=== PATIENT | male | born 1960 | race Caucasian/White ===

== ENCOUNTER 2020-08-17 02:30 | Emergency (ER) | payer OTHER, SELFPAY ==
[2020-08-17 02:36] VITALS: BP 117/66; PULSE 82; RESP 18; TEMP 36.7; O2SAT 93; BMI 21.4
--- NOTE | 2020-08-17 03:47 | ED_ITS ---
HPI - Alcohol General Chief Complaint: ETOH/Substance Use Stated Complaint: ETOH Time Seen by Provider: 08/17/20 03:47 Source: patient Mode of arrival: EMS History of Present Illness HPI narrative: 60-year-old male with history of chronic alcohol dependence, he drinks approximately 2 and half pt a day and states that he wishes to undergo d etox. He denies any suicidal ideation or homicidal ideation. Otherwise, he denies any recent fever, chills, shortness of breath, chest pain/palpitations, GI or symptoms. Related Data Home Medications Medication Instructions Recorded Confirmed acamprosate 2 tab PO TID 08/17/20 08/17/20 albuterol sulfate INHALATION 08/17/20 apixaban [Eliquis] 1 tab PO BID 08/17/20 08/17/20 cholecalciferol (vitamin D3) 1 tab PO DAILY 08/17/20 08/17/20 [Vitamin D3] docusate sodium 1 cap PO BID 08/17/20 08/17/20 gabapentin 800 mg PO BEDTIME 08/17/20 08/17/20 ipratropium-albuterol [Combivent INHALATION 08/17/20 Respimat] melatonin 1 tab PO BEDTIME 08/17/20 08/17/20 Allergies Allergy/AdvReac Type Severity Reaction Status Date / Time No Known Allergies Allergy Unverified 11/16/19 14:58 Review of Systems Review of Systems: Pertinent positives and negatives as stated in HPI 10 point review of systems is otherwise negative. PMFSH Past Medical History Source: nursing notes reviewed Social History Social History Advance Directives: No Advance Directives Information Provided: No Physical Exam Vital Signs: Vital Signs: Last Vital Signs Temp 98.1 F 08/17/20 02:36 Pulse 82 08/17/20 02:36 Resp 18 08/17/20 02:36 BP 117/66 08/17/20 02:36 Pulse Ox 93 08/17/20 02:36 Body Mass Index 21.4 VITAL SIGNS: Reviewed. GENERAL: Cachectic, appears older than stated age, in no acute distress. HEAD: Normocephalic/atraumatic EYES: PERRLA, EOMI EARS: Ext canals without abnormality OROPHARYNX: no oral lesions noted, posterior pharynx clear LUNGS: Normal breath sounds. No adventitious sounds or accessory muscle use. SpO2<93> CARDIOVASCULAR: Regular rate and rhythm without noted murmurs, no JVD or lower extremity edema. ABDOMEN: Soft, non-tender, non-distended with bowel sounds. NEUROLOGIC: Alert and oriented x 4. Course Course Course Narrative: 60-year-old male with history and clinical presentation consistent with alcohol dependence and intoxication and although requesting detox endorses that he has been to multiple locations such as [place], [facility], [place]. Will place a consultation with the swim coach in the morning. Review of all investigations, low magnesium repleted, and patient is otherwise cleared for detox if possible. Signed out to Dr Jauregui @ [phone] Reevaluation(s) Reevaluation #1: Patient placed in physician observation because the patient needed more time to discuss detox with the swim coach. At the time observation was started the patient's vital signs were stable, patient is alert and oriented, neuro: Nonfocal, CV RRR, lungs clear Time: 03:51 MDM - Alcohol Lab Data Result diagrams: 08/17/20 03:45 08/17/20 03:45 Labs: Lab Results 08/17/20 08/17/20 08/17/20 Range/Units 03:45 03:45 03:45 WBC 5.9 (4.8-10.8) X10*3/uL RBC 3.85 L (4.60-5.80) X10*6/uL Hgb 11.5 L (14.0-18.0) g/dl Hct 35.4 L (42-52) % MCV 91.9 (80-98) fL MCH 29.9 (27.0-33.0) pg MCHC 32.5 (31.0-36.0) g/dl RDW 15.4 (11.0-16.0) % Plt Count 183 (160-400) X10*3/uL MPV 9.5 (9.4-12.4) fL Immature Gran % (Auto) 0.5 H (0.0-0.4) % Neut % (Auto) 52.7 (45-73) % Lymph % (Auto) 34.2 (20-40) % [place] % (Auto) 7.6 (2-11) % Eos % (Auto) 3.7 (0-4) % Baso % (Auto) 1.3 (0-2) % Lymph # (Auto) 2.0 (1.2-4.9) X10*3/uL [place] # (Auto) 0.5 (0.1-1.2) X10*3/uL Eos # (Auto) 0.2 (0.0-0.4) X10*3/uL Baso # (Auto) 0.1 (0.0-0.2) X10*3/uL Abs Immat Gran (auto) 0.03 (0.00-0.03) X10*3/uL Absolute Neuts (auto) 3.1 (2.0-8.3) X10*3/uL Absolute Nucleated RBC 0.000 (0.0-0.012) X10*3/uL Nucleated RBC % (auto) 0.0 (0.0-0.2) /100WBC Sodium 145 (135-145) mmol/L Potassium 3.4 (3.3-5.1) mmol/L Chloride 107 (96-108) mmol/L Carbon Dioxide 26 (22-29) mmol/L Anion Gap 15 (12-20) BUN 10 (9-16) mg/dL Creatinine 0.78 (0.5-1.4) mg/dL Estim Creat Clear Calc 93.6 Estimated GFR > 60 Random Glucose 122 H (60-115) mg/dL Calcium 9.3 (8.4-10.2) mg/dL Magnesium 1.5 L (1.6-2.6) mg/dL Total Bilirubin 0.3 (0.0-1.0) mg/dL Direct Bilirubin 0.3 (0.0-0.5) mg/dL AST 64 H (5-37) U/L ALT 46 H (0-40) U/L Alkaline Phosphatase 119 H (39-117) U/L Total Protein 7.1 (6.5-8.0) g/dL Albumin 4.1 (3.5-5.0) g/dL Ethyl Alcohol mg/dL COVID-19 (NELY) Negative (Negative) COVID-19 Clin Com See Note 08/17/20 Range/Units 03:45 WBC (4.8-10.8) X10*3/uL RBC (4.60-5.80) X10*6/uL Hgb (14.0-18.0) g/dl Hct (42-52) % MCV (80-98) fL MCH (27.0-33.0) pg MCHC (31.0-36.0) g/dl RDW (11.0-16.0) % Plt Count (160-400) X10*3/uL MPV (9.4-12.4) fL Immature Gran % (Auto) (0.0-0.4) % Neut % (Auto) (45-73) % Lymph % (Auto) (20-40) % [place] % (Auto) (2-11) % Eos % (Auto) (0-4) % Baso % (Auto) (0-2) % Lymph # (Auto) (1.2-4.9) X10*3/uL [place] # (Auto) (0.1-1.2) X10*3/uL Eos # (Auto) (0.0-0.4) X10*3/uL Baso # (Auto) (0.0-0.2) X10*3/uL Abs Immat Gran (auto) (0.00-0.03) X10*3/uL Absolute Neuts (auto) (2.0-8.3) X10*3/uL Absolute Nucleated RBC (0.0-0.012) X10*3/uL Nucleated RBC % (auto) (0.0-0.2) /100WBC Sodium (135-145) mmol/L Potassium (3.3-5.1) mmol/L Chloride (96-108) mmol/L Carbon Dioxide (22-29) mmol/L Anion Gap (12-20) BUN (9-16) mg/dL Creatinine (0.5-1.4) mg/dL Estim Creat Clear Calc Estimated GFR Random Glucose (60-115) mg/dL Calcium (8.4-10.2) mg/dL Magnesium (1.6-2.6) mg/dL Total Bilirubin (0.0-1.0) mg/dL Direct Bilirubin (0.0-0.5) mg/dL AST (5-37) U/L ALT (0-40) U/L Alkaline Phosphatase (39-117) U/L Total Protein (6.5-8.0) g/dL Albumin (3.5-5.0) g/dL Ethyl Alcohol 285 mg/dL COVID-19 (NELY) (Negative) COVID-19 Clin Com Discharge Plan Discharge Clinical Impression: Alcoholic intoxication, Alcohol dependence Prescriptions: No Action Eliquis 5 mg tablet 1 tab PO BID RF: 0 gabapentin 800 mg tablet 800 mg PO BEDTIME RF: 0 melatonin 5 mg tablet 1 tab PO BEDTIME RF: 0 docusate sodium 100 mg capsule 1 cap PO BID RF: 0 acamprosate 333 mg tablet,delayed release (DR/EC) 2 tab PO TID RF: 0 albuterol sulfate 90 mcg/actuation HFA aerosol inhaler inhalation RF: 0 Combivent Respimat 20-100 mcg/actuation mist inhalation RF: 0 cholecalciferol (vitamin D3) [Vitamin D3] 50 mcg (2,000 unit) tablet 1 tab PO DAILY RF: 0
[2020-08-17] MEDS: chlordiazePOXIDE HCl 25 MG CAPSULE PO (03:53)
[2020-08-17 04:03] LABS: MANUAL DIFF FLAG NO
[2020-08-17 04:05] LABS: Basophils Absolute Auto 0.1 X10*3/uL (0.0-0.2); Basophils Percent Auto 1.3 % (0-2); Eosinophils Absolute Auto 0.2 X10*3/uL (0.0-0.4); Eosinophils Percent Auto 3.7 % (0-4); Hematocrit 35.4 % (42-52); Hemoglobin 11.5 g/dl (14.0-18.0); Imm Gran Abs Auto 0.03 X10*3/uL (0.00-0.03); Imm Gran Pct Auto 0.5 % (0.0-0.4); Lymphocytes Percent Auto 34.2 % (20-40); Mean Corpuscular HGB Conc 32.5 g/dl (31.0-36.0); Mean Corpuscular Hemoglobin 29.9 pg (27.0-33.0); Mean Corpuscular Volume 91.9 fL (80-98); Mean Platelet Volume 9.5 fL (9.4-12.4); Monocytes Absolute Auto 0.5 X10*3/uL (0.1-1.2); Monocytes Percent Auto 7.6 % (2-11); Neutrophils Absolute Auto 3.1 X10*3/uL (2.0-8.3); Neutrophils Percent Auto 52.7 % (45-73); Platelet Count 183 X10*3/uL (160-400); Red Blood Count 3.85 X10*6/uL (4.60-5.80); Red Cell Distribution Width 15.4 % (11.0-16.0); White Blood Count 5.9 X10*3/uL (4.8-10.8)
[2020-08-17 04:21] LABS: COVID-19 Test Negative (Negative); IDNOW Serial# 9DD0AD1C
[2020-08-17 04:24] LABS: Ethanol 285 mg/dL
[2020-08-17 04:29] LABS: Alanine Aminotransferase 46 U/L (0-40); Albumin Level 4.1 g/dL (3.5-5.0); Alkaline Phosphatase 119 U/L (39-117); Anion Gap 15 (12-20); Aspartate Amino Transferase 64 U/L (5-37); Bilirubin Direct 0.3 mg/dL (0.0-0.5); Bilirubin Total 0.3 mg/dL (0.0-1.0); Blood Urea Nitrogen 10 mg/dL (9-16); Calcium 9.3 mg/dL (8.4-10.2); Carbon Dioxide 26 mmol/L (22-29); Chloride 107 mmol/L (96-108); Creatinine Clr Calc Pharmacy 93.6; Estimated Glomerular Filt Rate > 60; Glucose Random 122 mg/dL (60-115); Magnesium 1.5 mg/dL (1.6-2.6); Potassium 3.4 mmol/L (3.3-5.1); Sodium 145 mmol/L (135-145); Total Protein 7.1 g/dL (6.5-8.0)
[2020-08-17] MEDS: Magnesium Oxide 400 MG TABLET 800 MG PO (06:56)
--- NOTE | 2020-08-17 07:12 | PC.NURSE ---
patient appears in no distress, patient up for the day and ate some breakfast, patient provided urine sample, patient up[ to shower at this presetn time.
[2020-08-17 07:36] LABS: Glucose Urine UA NEG (NEG); Leukocyte Esterase Urine 1+ (NEG); Nitrite Urine NEG (NEG); Specific Gravity - Urine 1.015 (1.005-1.025); UACC Culture Trigger YES; Urine Blood NEG (NEG); Urine Ketones NEG (NEG); Urine Protein NEG (NEG-TRACE)
[2020-08-17 07:38] LABS: Appearance Urine CLOUDY; Color Urine YELLOW
[2020-08-17 07:50] LABS: Amphetamine Screen Urine Not Detected (Not Detect); Barbiturates, Urine Not Detected (Not Detect); Benzodiazepines Screen Urine POSITIVE (Not Detect); Cannabinoid Screen Urine Not Detected (Not Detect); Cocaine Screen Urine Not Detected (Not Detect); Opiate Screen Urine Not Detected (Not Detect); Phencyclidine Screen Urine Not Detected (Not Detect)
[2020-08-17 07:54] LABS: Bacteria Urine TRACE /LPF; Mucus Urine TRACE /LPF; RBC Urine 0-2 /HPF (0); Squamous Epithelial Cell Urine 1+ /LPF; UACC CULT YES
[2020-08-17] MEDS: Apixaban 5 MG TABLET PO (08:17)
[2020-08-17] MEDS: Cholecalciferol (Vitamin D3) 25 MCG TABLET 50 MCG PO (08:17)
[2020-08-17] MEDS: Albuterol Sulfate 90 MCG 8 GM INHALER 4 PUFF INHALE (08:18)
[2020-08-17] MEDS: Docusate Sodium 100 MG CAPSULE PO (08:18)
[2020-08-17 09:00] VITALS: BP 121/67; PULSE 76; RESP 18; TEMP 36.4; O2SAT 95
[2020-08-17 09:49] VITALS: RESP 16
--- NOTE | 2020-08-17 09:49 | ECG_ITS ---
Test Reason : CLEARANCE Blood Pressure : / mmHG Vent. Rate : 072 BPM Atrial Rate : 072 BPM P-R Int : 140 ms QRS Dur : 132 ms QT Int : 422 ms P-R-T Axes : 000 -29 147 degrees QTc Int : 462 ms Normal sinus rhythm Right bundle branch block Possible Left anterior fascicular block Abnormal ECG When compared with ECG of 21-AUG-2019 01:23, No significant changes seen Referred By: Rachna Mckeon Electronically Signed By:RENEE TRAMMELL
--- NOTE | 2020-08-17 09:52 | MHC.CARE ---
Pt reports drinking 2 pints of vodka daily and is interested in going to detox for assistance in stopping drinking alcohol. ATS referrals faxed to : [facility] [phone] [place] [phone] [facility] [phone]
[2020-08-17] MEDS: LORazepam 1 MG TABLET PO (09:54)
--- NOTE | 2020-08-17 13:19 | ECG_ITS ---
Test Reason : CLEARANCE Blood Pressure : / mmHG Vent. Rate : 074 BPM Atrial Rate : 074 BPM P-R Int : 142 ms QRS Dur : 138 ms QT Int : 420 ms P-R-T Axes : 082 -72 049 degrees QTc Int : 466 ms Normal sinus rhythm Right bundle branch block Left anterior fascicular block Bifascicular block Abnormal ECG When compared with ECG of 17-AUG-2020 10:06, T wave inversion no longer evident in Lateral leads Referred By: Bianca Rowell Electronically Signed By:Michael Alejandra
== END 2020-08-17 12:49 | disposition home or self-care (01) ==
PROVIDERS: Emergency Provider Student in an Organized Health Care Education/Training Program
DX: F10.229 Alcohol dependence with intoxication, unspecified (principal); Y90.8 Blood alcohol level of 240 mg/100 ml or more; R06.2 Wheezing; Z20.822 Contact with and (suspected) exposure to COVID-19
CPT/HCPCS: 36415; 80048; 80076; 80307; 81001; 82077; 83735; 85025; 87086; 87635; 93005; 99284; 99285

== ENCOUNTER 2020-09-10 23:57 | Emergency (ER) | payer OTHER, SELFPAY ==
[2020-09-11 00:07] VITALS: BP 126/71; BP 136/90; PULSE 88; PULSE 90; RESP 12; TEMP 36.6; O2SAT 95; O2SAT 98; BMI 21.5
[2020-09-11 00:12] VITALS: BP 126/71; PULSE 90; RESP 22; TEMP 36.6; O2SAT 95
--- NOTE | 2020-09-11 00:40 | ECG_ITS ---
Test Reason : ETOH Blood Pressure : / mmHG Vent. Rate : 077 BPM Atrial Rate : 077 BPM P-R Int : 152 ms QRS Dur : 138 ms QT Int : 422 ms P-R-T Axes : 076 -70 046 degrees QTc Int : 477 ms Normal sinus rhythm Right bundle branch block Left anterior fascicular block Bifascicular block Abnormal ECG When compared with ECG of 17-AUG-2020 10:14, No significant change was found Referred By: Yamel Bradley Electronically Signed By:Michael Alejandra
--- NOTE | 2020-09-11 00:44 | ED.GENADULT ---
HPI - General Adult General Chief complaint: ETOH/Substance Use Stated complaint: Etoh Time Seen by Provider: 09/11/20 00:18 Source: patient Mode of arrival: EMS Limitations: no limitations History of Present Illness HPI narrative: Patient comes emergency room complaining of generalized weakness. Patient states that he drank about 1.5 pt of alcohol today. Patient denies drug use. Patient states that he called the ambulance today because he has been feeling weak. Patient states that he is not hungry and it has been going on for approximately 1 week. Patient denies chest pain, no shortness of breath, no abdominal pain Related Data Home Medications Medication Instructions Recorded Confirmed acamprosate 2 tab PO TID 09/11/20 09/11/20 albuterol sulfate 2 puff INHALATION Q4-6H PRN 09/11/20 09/11/20 apixaban [Eliquis] 1 tab PO BID 09/11/20 09/11/20 docusate sodium 1 cap PO BID 09/11/20 09/11/20 gabapentin 800 mg PO BEDTIME 09/11/20 09/11/20 ipratropium-albuterol [Combivent 2 puff INHALATION BID 09/11/20 09/11/20 Respimat] melatonin 1 tab PO BEDTIME 09/11/20 09/11/20 Allergies Allergy/AdvReac Type Severity Reaction Status Date / Time No Known Allergies Allergy Verified 09/11/20 00:14 Review of Systems Review of Systems: Constitutional : Planing of not feeling hungry, No Fever, No Chills, No Night Sweats, No Fatigue, No Malaise ENT/Mouth : No Hearing loss, No Ear Pain, No Nasal Congestion, No Sinus Pain, No Hoarseness, No sore throat, No Rhinorrhea, No Swallowing Difficulty Eyes: No Eye Pain, No Swelling, No Redness, No Foreign Body, No Discharge, No Vision Changes Cardiovascular : No Chest Pain, No SOB, No Dyspnea on Exertion, No Orthopnea, No Edema, No Palpitations Respiratory : No Cough, No Sputum, No Wheezing, No Smoke Exposure, No Dyspnea Gastrointestinal : No Nausea, No Vomiting, No Diarrhea, No Constipation, No abdominal Pain, No Hematochezia, No Melena Genitourinary : no irregular bleeding, No Dysuria, No Urinary Frequency, No Hematuria, No Urinary Incontinence, No Urgency, No Flank Pain, No Urinary Flow Changes, No Hesitancy Musculoskeletal : No joint pain, No Myalgias, No Joint Swelling Skin : No Skin Lesions, No rash Neuro : No Weakness, No Numbness, No Paresthesias, No Loss of Consciousness, No Dizziness, No Headache Psych : No Anxiety/Panic, No Depression, No SI/HI/AH/VH, No Social Issues, Heme/Lymph: No Bruising, No Bleeding,No Lymphadenopathy Endocrine : No Polyuria, No Polydipsia, No Temperature Intolerance [facility] Past Medical History Medical History Alcohol abuse Social History Social History Alcohol intake: current Alcohol intake frequency: 3 or more drinks per day Patient Tobacco Use Status: Current everyday Tobacco user Use of substances other than those prescribed or required for medical reasons: Yes Substance Use Type: Marijuana Advance Directives: No Physical Exam Vital Signs: Vital Signs: Last Vital Signs Temp 97.9 F 09/11/20 00:12 Pulse 86 09/11/20 04:11 Resp 18 09/11/20 04:11 BP 118/72 09/11/20 04:11 Pulse Ox 93 09/11/20 04:11 Body Mass Index 21.5 Appearance: Alert. Oriented X2. No acute distress. Eyes: Pupils equal, round and reactive to light. ENT: Pharynx normal. Neck: Normal inspection. Neck supple. No lymph nodes noted. No crepitus CVS: Normal heart rate and rhythm. Pulses normal. Normal S1 and S2 Respiratory: No respiratory distress. Breath sounds normal. No Wheezing. No rales Abdomen: Soft and nontender. No rigidity. No distention. good BS x4 Skin: Skin warm and dry. Normal skin color. Normal skin turgor. Extremities: No lower extremity edema. No Lacerations. No Rash Neuro: Oriented X 2. No motor deficit. No sensory deficit. Moving all extermities. No slurred speech. Course Course Course Narrative: Patient remains calm, cooperative, at this time no acute pathology, elevated LFTs with air chronic, ETOH 344. At this time, we will allow the patient to metabolize to freedom, then discharge in the morning . Patient is walking, is alert and oriented x3, no acute distress, patient no longer intoxicated. Medical Decision Making Lab Data Result diagrams: 09/11/20 00:40 09/11/20 00:15 Labs: Lab Results 09/11/20 09/11/20 09/11/20 Range/Units 00:15 00:15 00:40 WBC 4.2 L (4.8-10.8) X10*3/uL RBC 4.24 L (4.60-5.80) X10*6/uL Hgb 12.6 L (14.0-18.0) g/dl Hct 37.8 L (42-52) % MCV 89.2 (80-98) fL MCH 29.7 (27.0-33.0) pg MCHC 33.3 (31.0-36.0) g/dl RDW 14.6 (11.0-16.0) % Plt Count 138 L (160-400) X10*3/uL MPV 9.4 (9.4-12.4) fL Immature Gran % (Auto) 0.2 (0.0-0.4) % Neut % (Auto) 45.4 (45-73) % Lymph % (Auto) 40.6 H (20-40) % Luce % (Auto) 9.4 (2-11) % Eos % (Auto) 3.5 (0-4) % Baso % (Auto) 0.9 (0-2) % Lymph # (Auto) 1.7 (1.2-4.9) X10*3/uL Luce # (Auto) 0.4 (0.1-1.2) X10*3/uL Eos # (Auto) 0.2 (0.0-0.4) X10*3/uL Baso # (Auto) 0.0 (0.0-0.2) X10*3/uL Abs Immat Gran (auto) 0.01 (0.00-0.03) X10*3/uL Absolute Neuts (auto) 1.9 L (2.0-8.3) X10*3/uL Absolute Nucleated RBC 0.000 (0.0-0.012) X10*3/uL Nucleated RBC % (auto) 0.0 (0.0-0.2) /100WBC Sodium 142 (135-145) mmol/L Potassium 4.0 (3.3-5.1) mmol/L Chloride 103 (96-108) mmol/L Carbon Dioxide 27 (22-29) mmol/L Anion Gap 16 (12-20) BUN 9 (9-16) mg/dL Creatinine 0.82 (0.5-1.4) mg/dL Estim Creat Clear Calc 92.1 Estimated GFR > 60 Random Glucose 100 (60-115) mg/dL Calcium 9.0 (8.4-10.2) mg/dL Total Bilirubin 0.5 (0.0-1.0) mg/dL Direct Bilirubin 0.3 (0.0-0.5) mg/dL AST 38 H D (5-37) U/L ALT 21 (0-40) U/L Alkaline Phosphatase 138 H (39-117) U/L Total Protein 7.8 (6.5-8.0) g/dL Albumin 4.3 (3.5-5.0) g/dL Urine Color Urine Appearance Urine pH (5.0-8.0) Ur Specific [place] (1.005-1.025) Urine Protein (NEG-TRACE) MG/DL Urine Glucose (UA) (NEG) MG/DL Urine Ketones (NEG) MG/DL Urine Blood (NEG) Urine Nitrite (NEG) Ur Leukocyte Esterase (NEG) Urine Opiates Screen (Not Detect) Ur Barbiturates Screen (Not Detect) Ur Phencyclidine Scrn (Not Detect) Ur Amphetamines Screen (Not Detect) U Benzodiazepines Scrn (Not Detect) Urine Cocaine Screen (Not Detect) U Marijuana (THC) Screen (Not Detect) Ethyl Alcohol 344 H* mg/dL COVID-19 (NELY) (Negative) COVID-19 Clin Com 09/11/20 09/11/20 09/11/20 Range/Units 02:06 02:07 02:07 WBC (4.8-10.8) X10*3/uL RBC (4.60-5.80) X10*6/uL Hgb (14.0-18.0) g/dl Hct (42-52) % MCV (80-98) fL MCH (27.0-33.0) pg MCHC (31.0-36.0) g/dl RDW (11.0-16.0) % Plt Count (160-400) X10*3/uL MPV (9.4-12.4) fL Immature Gran % (Auto) (0.0-0.4) % Neut % (Auto) (45-73) % Lymph % (Auto) (20-40) % Luce % (Auto) (2-11) % Eos % (Auto) (0-4) % Baso % (Auto) (0-2) % Lymph # (Auto) (1.2-4.9) X10*3/uL Luce # (Auto) (0.1-1.2) X10*3/uL Eos # (Auto) (0.0-0.4) X10*3/uL Baso # (Auto) (0.0-0.2) X10*3/uL Abs Immat Gran (auto) (0.00-0.03) X10*3/uL Absolute Neuts (auto) (2.0-8.3) X10*3/uL Absolute Nucleated RBC (0.0-0.012) X10*3/uL Nucleated RBC % (auto) (0.0-0.2) /100WBC Sodium (135-145) mmol/L Potassium (3.3-5.1) mmol/L Chloride (96-108) mmol/L Carbon Dioxide (22-29) mmol/L Anion Gap (12-20) BUN (9-16) mg/dL Creatinine (0.5-1.4) mg/dL Estim Creat Clear Calc Estimated GFR Random Glucose (60-115) mg/dL Calcium (8.4-10.2) mg/dL Total Bilirubin (0.0-1.0) mg/dL Direct Bilirubin (0.0-0.5) mg/dL AST (5-37) U/L ALT (0-40) U/L Alkaline Phosphatase (39-117) U/L Total Protein (6.5-8.0) g/dL Albumin (3.5-5.0) g/dL Urine Color YELLOW Urine Appearance CLEAR Urine pH 6.0 (5.0-8.0) Ur Specific [place] 1.010 (1.005-1.025) Urine Protein NEG (NEG-TRACE) MG/DL Urine Glucose (UA) NEG (NEG) MG/DL Urine Ketones NEG (NEG) MG/DL Urine Blood NEG (NEG) Urine Nitrite NEG (NEG) Ur Leukocyte Esterase NEG (NEG) Urine Opiates Screen Not Detected (Not Detect) Ur Barbiturates Screen Not Detected (Not Detect) Ur Phencyclidine Scrn Not Detected (Not Detect) Ur Amphetamines Screen Not Detected (Not Detect) U Benzodiazepines Scrn Not Detected (Not Detect) Urine Cocaine Screen Not Detected (Not Detect) U Marijuana (THC) Screen Not Detected (Not Detect) Ethyl Alcohol mg/dL COVID-19 (NELY) Negative (Negative) COVID-19 Clin Com See Note Discharge Plan Discharge Clinical Impression: Alcoholic intoxication Patient Disposition: Home, Self-Care Instructions: Alcohol Intoxication (ED) Additional Instructions: Please follow-up with your primary care physician tomorrow. If you have any worsening or new symptoms, please return to the emergency room or call 911 Prescriptions: No Action gabapentin 800 mg tablet 800 mg PO BEDTIME RF: 0 docusate sodium 100 mg capsule 1 cap PO BID RF: 0 albuterol sulfate 90 mcg/actuation HFA aerosol inhaler 2 puff inhalation Q4-6H PRN (Reason: Wheezing) RF: 0 acamprosate 333 mg tablet,delayed release (DR/EC) 2 tab PO TID RF: 0 melatonin 5 mg tablet 1 tab PO BEDTIME RF: 0 Eliquis 5 mg tablet 1 tab PO BID RF: 0 Combivent Respimat 20-100 mcg/actuation mist 2 puff inhalation BID RF: 0
[2020-09-11] MEDS: Thiamine HCL 200 MG/2 ML VIAL IVPUSH (01:08)
[2020-09-11] MEDS: 0.9 % Sodium Chloride 1,000 ML 999 ML IVCONT (01:08)
[2020-09-11 01:10] VITALS: BP 115/75; PULSE 74; RESP 16; O2SAT 96
--- NOTE | 2020-09-11 01:10 | PC.NURSE ---
IV established, labs obtained. Pt medicated per APR. Pt aware of pending UA, provided with a bedside urinal when able. VSS. Continue to monitor.
[2020-09-11 01:17] LABS: Eosinophils Absolute Auto 0.2 X10*3/uL (0.0-0.4); Eosinophils Percent Auto 3.5 % (0-4); Imm Gran Abs Auto 0.01 X10*3/uL (0.00-0.03); Imm Gran Pct Auto 0.2 % (0.0-0.4); Mean Platelet Volume 9.4 fL (9.4-12.4); PLT CLUMP 1; Red Cell Distribution Width 14.6 % (11.0-16.0); SCAN SMEAR FLAG 1
[2020-09-11 01:18] LABS: Basophils Percent Auto 0.9 % (0-2); Hematocrit 37.8 % (42-52); Hemoglobin 12.6 g/dl (14.0-18.0); Lymphocytes Absolute Auto 1.7 X10*3/uL (1.2-4.9); Lymphocytes Percent Auto 40.6 % (20-40); Mean Corpuscular HGB Conc 33.3 g/dl (31.0-36.0); Mean Corpuscular Hemoglobin 29.7 pg (27.0-33.0); Mean Corpuscular Volume 89.2 fL (80-98); Monocytes Absolute Auto 0.4 X10*3/uL (0.1-1.2); Monocytes Percent Auto 9.4 % (2-11); Neutrophils Absolute Auto 1.9 X10*3/uL (2.0-8.3); Neutrophils Percent Auto 45.4 % (45-73); Platelet Count 138 X10*3/uL (160-400); Red Blood Count 4.24 X10*6/uL (4.60-5.80); White Blood Count 4.2 X10*3/uL (4.8-10.8)
[2020-09-11 01:21] LABS: MANUAL DIFF FLAG NO
[2020-09-11 01:37] LABS: Ethanol 344 mg/dL
[2020-09-11 01:40] LABS: Alanine Aminotransferase 21 U/L (0-40); Albumin Level 4.3 g/dL (3.5-5.0); Alkaline Phosphatase 138 U/L (39-117); Anion Gap 16 (12-20); Aspartate Amino Transferase 38 U/L (5-37); Bilirubin Direct 0.3 mg/dL (0.0-0.5); Bilirubin Total 0.5 mg/dL (0.0-1.0); Blood Urea Nitrogen 9 mg/dL (9-16); Carbon Dioxide 27 mmol/L (22-29); Chloride 103 mmol/L (96-108); Creatinine Clr Calc Pharmacy 92.1; Estimated Glomerular Filt Rate > 60; Glucose Random 100 mg/dL (60-115); Sodium 142 mmol/L (135-145); Total Protein 7.8 g/dL (6.5-8.0)
[2020-09-11 02:13] LABS: Appearance Urine CLEAR; Color Urine YELLOW; Glucose Urine UA NEG (NEG); Leukocyte Esterase Urine NEG (NEG); Nitrite Urine NEG (NEG); Urine Blood NEG (NEG); Urine Ketones NEG (NEG); Urine Protein NEG (NEG-TRACE)
--- NOTE | 2020-09-11 02:19 | PC.NURSE ---
This RN contacting pts david Noble per pt request. Son not answering the phone. Pt aware.
[2020-09-11 02:33] LABS: COVID-19 Test Negative (Negative); IDNOW Serial# 9DD0AD1C
[2020-09-11 02:38] LABS: Amphetamine Screen Urine Not Detected (Not Detect); Barbiturates, Urine Not Detected (Not Detect); Benzodiazepines Screen Urine Not Detected (Not Detect); Cannabinoid Screen Urine Not Detected (Not Detect); Cocaine Screen Urine Not Detected (Not Detect); Opiate Screen Urine Not Detected (Not Detect); Phencyclidine Screen Urine Not Detected (Not Detect)
[2020-09-11 04:11] VITALS: BP 118/72; PULSE 86; RESP 18; O2SAT 93
--- NOTE | 2020-09-11 04:25 | PC.NURSE ---
SPOKE WITH MD ABOUT PLAN FOR PATIENT, HE WAS EXPERIENCING ANXIETY. PT STEADY ON HIS FEET WHEN USING BEDSIDE URINAL. MD REPORTS PT IS READY FOR DISCHARGE, IF HE IS STEADY WHILE AMBULATING. PT REPORTS THAT HE DOESN'T HAVE A RIDE, ATTEMPT TO CALL SON WAS NOT SUCCESSFUL BUT MESSAGE LEFT.
--- NOTE | 2020-09-11 07:14 | PHA.MEDREC ---
Pharmacy Consult ? Medication Reconciliation Pharmacy has completed the medication reconciliation. Patient states the only med he takes regularly is apixaban.
[2020-09-11 07:15] VITALS: BP 133/76; PULSE 88; RESP 20
== END 2020-09-11 07:30 | disposition home or self-care (01) ==
PROVIDERS: Emergency Provider Emergency Medicine; PCP Internal Medicine
DX: F10.129 Alcohol abuse with intoxication, unspecified (principal); Y90.8 Blood alcohol level of 240 mg/100 ml or more; F12.90 Cannabis use, unspecified, uncomplicated; Z79.899 Other long term (current) drug therapy; Z20.822 Contact with and (suspected) exposure to COVID-19
CPT/HCPCS: 36415; 80048; 80076; 80307; 81003; 82077; 85025; 87635; 93005; 96365; 96375; 99285; J3411

== ENCOUNTER 2020-09-28 01:41 | Emergency (ER) | payer OTHER, SELFPAY ==
[2020-09-28] VITALS (7 sets, daily range): BP systolic 101–148; BP diastolic 54–71; PULSE 78–83; RESP 14–20; TEMP 36.7; O2SAT 89–97; BMI 20.7
[2020-09-28 02:19] LABS: Mean Corpuscular HGB Conc 33.3 g/dl (31.0-36.0); Mean Platelet Volume 9.1 fL (9.4-12.4); Platelet Count 130 X10*3/uL (160-400); Red Cell Distribution Width 16.2 % (11.0-16.0); White Blood Count 4.3 X10*3/uL (4.8-10.8)
--- NOTE | 2020-09-28 02:22 | PC.NURSE ---
IV established, labs obtained. MD at bedside for primary eval. Plan for UA and Care Team Consult.
[2020-09-28 02:36] LABS: COVID-19 Test Negative (Negative)
--- NOTE | 2020-09-28 02:39 | PC.NURSE ---
Seizure pads applied to bed as a precaution. Pt provided with urinal and is aware of urine sample, unable to provide urine at this time.
[2020-09-28 02:52] LABS: Ethanol 384 mg/dL
--- NOTE | 2020-09-28 02:56 | PC.NURSE ---
UA obtained and sent. Pt requesting food/drink.
--- NOTE | 2020-09-28 03:01 | ED.ALCOHOL ---
HPI - Alcohol General Chief Complaint: ETOH/Substance Use Stated Complaint: ETOH INTOX,TRYING NOT TO GO INTO ALC WITHDRAWAL Time Seen by Provider: 09/28/20 01:49 Source: patient Mode of arrival: EMS History of Present Illness HPI narrative: 60-year-old male brought in by EMS from home and as per EMS patient was requesting medical treatment for alcohol withdrawals. When I spoke with the patient he states that his last drink was earlier in the day and that he had 1 pt of [facility] and he is requesting detox. He becomes tearful stating that ?my son does not want have anything to do with me? and I want to try to get rid of this. Patient reports he has been in multiple rehabs before but has been unsuccessful. Patient denies history of alcohol withdrawal related seizures. Patient states that 3 days ago he fell down the stairs and it is head as well as the left side of his chest wall. Related Data Home Medications Medication Instructions Recorded Confirmed albuterol sulfate 90 mcg/actuation 2 puff INHALATION Q4-6H PRN 09/11/20 09/11/20 aerosol inhaler apixaban 5 mg tablet (Eliquis) 1 tab PO BID 09/11/20 09/11/20 cyclobenzaprine 10 mg tablet 1 tab PO TID PRN 09/11/20 09/11/20 ipratropium 20 mcg-albuterol 100 2 puff INHALATION BID 09/11/20 09/11/20 mcg/actuation mist for inhalation (Combivent Respimat) melatonin 5 mg tablet 1 tab PO BEDTIME PRN 09/11/20 09/11/20 Allergies Allergy/AdvReac Type Severity Reaction Status Date / Time Peanut Butter Allergy Facial Verified 09/28/20 01:55 Swelling raspberry Allergy Facial Verified 09/28/20 01:55 Swelling Review of Systems Review of Systems: Pertinent positives and negatives as stated in HPI 10 point review of systems is otherwise negative. [facility] Past Medical History Source: nursing notes reviewed Medical History Alcohol abuse Social History Social History Alcohol intake: current Alcohol intake frequency: 3 or more drinks per day Patient Tobacco Use Status: Current everyday Tobacco user Substance Use Type: Marijuana Advance Directives: No Advance Directives Information Provided: No Physical Exam Vital Signs: Vital Signs: Last Vital Signs Temp 98.0 F 09/28/20 01:49 Pulse 83 09/28/20 01:49 Resp 20 09/28/20 01:49 BP 113/71 09/28/20 01:49 Pulse Ox 95 09/28/20 01:49 Body Mass Index 20.7 VITAL SIGNS: Reviewed. GENERAL: Well developed, well nourished, in no acute distress. HEAD: Normocephalic/ecchymosis in states of healing noted to left forehead EYES: PERRLA, EOMI EARS: Ext canals without abnormality, TMs non-bulging and non-erythematous NOSE: Nares patent bilateral OROPHARYNX: no oral lesions noted, posterior pharynx clear NECK: Supple, no adenopathy LUNGS: Normal breath sounds. No adventitious sounds or accessory muscle use. SpO2<95>, chest wall tenderness and bruising noted to the left without crepitus CARDIOVASCULAR: Regular rate and rhythm without noted murmurs ABDOMEN: Soft, non-tender, non-distended with bowel sounds. MUSCULOSKELETAL: No tenderness, deformities, or effusions noted on gross inspection, ecchymosis noted to right forearm EXTREMITIES: No cyanosis, clubbing or edema. SKIN: Inspection of the skin reveals no rashes, ulcerations, jaundice, pallor, or petechiae. NEUROLOGIC: Alert and oriented x 4. Strength and sensation to light touch were grossly intact x 4. Course Course Course Narrative: 60-year-old male with history and clinical presentation consistent with significant alcohol dependence and current intoxication. Will obtain basic labs and otherwise medically clear patient for further evaluation by either care team or cross country coach for placement in detox center. Review of all investigations negative for acute findings when compared to baseline other than low magnesium which was repleted with 1 g of magnesium sulfate and patient's BAL-384. Reevaluation(s) Reevaluation #1: Patient placed in physician observation because the patient needed more time for evaluation by cross country coach for placement into detox facility. At the time observation was started the patient's vital signs were stable, patient is alert and oriented, neuro: Nonfocal, CV RRR, lungs clear Time: 03:14 MDM - Alcohol Lab Data Result diagrams: 09/28/20 02:10 09/28/20 02:10 Labs: Lab Results 09/28/20 09/28/20 09/28/20 Range/Units 02:10 02:10 02:10 WBC 4.3 L (4.8-10.8) X10*3/uL RBC 4.00 L (4.60-5.80) X10*6/uL Hgb 12.0 L (14.0-18.0) g/dl Hct 36.0 L (42-52) % MCV 90.0 (80-98) fL MCH 30.0 (27.0-33.0) pg MCHC 33.3 (31.0-36.0) g/dl RDW 16.2 H (11.0-16.0) % Plt Count 130 L (160-400) X10*3/uL MPV 9.1 L (9.4-12.4) fL Absolute Nucleated RBC 0.000 (0.0-0.012) X10*3/uL Nucleated RBC % (auto) 0.0 (0.0-0.2) /100WBC Sodium 143 (135-145) mmol/L Potassium 3.4 (3.3-5.1) mmol/L Chloride 102 (96-108) mmol/L Carbon Dioxide 29 (22-29) mmol/L Anion Gap 15 (12-20) BUN 11 (9-16) mg/dL Creatinine 0.78 (0.5-1.4) mg/dL Estim Creat Clear Calc 90.4 Estimated GFR > 60 Random Glucose 117 H (60-115) mg/dL Calcium 8.8 (8.4-10.2) mg/dL Magnesium 1.4 L* (1.6-2.6) mg/dL Total Bilirubin 1.0 (0.0-1.0) mg/dL AST 215 H (5-37) U/L ALT 116 H (0-40) U/L Alkaline Phosphatase 136 H (39-117) U/L Total Protein 7.5 (6.5-8.0) g/dL Albumin 4.2 (3.5-5.0) g/dL Urine Color Urine Appearance Urine pH (5.0-8.0) Ur Specific [place] (1.005-1.025) Urine Protein (NEG-TRACE) MG/DL Urine Glucose (UA) (NEG) MG/DL Urine Ketones (NEG) MG/DL Urine Blood (NEG) Urine Nitrite (NEG) Ur Leukocyte Esterase (NEG) Ethyl Alcohol mg/dL COVID-19 (NELY) Negative (Negative) COVID-19 Clin Com See Note 09/28/20 09/28/20 Range/Units 02:10 02:56 WBC (4.8-10.8) X10*3/uL RBC (4.60-5.80) X10*6/uL Hgb (14.0-18.0) g/dl Hct (42-52) % MCV (80-98) fL MCH (27.0-33.0) pg MCHC (31.0-36.0) g/dl RDW (11.0-16.0) % Plt Count (160-400) X10*3/uL MPV (9.4-12.4) fL Absolute Nucleated RBC (0.0-0.012) X10*3/uL Nucleated RBC % (auto) (0.0-0.2) /100WBC Sodium (135-145) mmol/L Potassium (3.3-5.1) mmol/L Chloride (96-108) mmol/L Carbon Dioxide (22-29) mmol/L Anion Gap (12-20) BUN (9-16) mg/dL Creatinine (0.5-1.4) mg/dL Estim Creat Clear Calc Estimated GFR Random Glucose (60-115) mg/dL Calcium (8.4-10.2) mg/dL Magnesium (1.6-2.6) mg/dL Total Bilirubin (0.0-1.0) mg/dL AST (5-37) U/L ALT (0-40) U/L Alkaline Phosphatase (39-117) U/L Total Protein (6.5-8.0) g/dL Albumin (3.5-5.0) g/dL Urine Color YELLOW Urine Appearance CLEAR Urine pH 6.5 (5.0-8.0) Ur Specific [place] 1.010 (1.005-1.025) Urine Protein TRACE (NEG-TRACE) MG/DL Urine Glucose (UA) NEG (NEG) MG/DL Urine Ketones NEG (NEG) MG/DL Urine Blood NEG (NEG) Urine Nitrite NEG (NEG) Ur Leukocyte Esterase NEG (NEG) Ethyl Alcohol 384 H* mg/dL COVID-19 (NELY) (Negative) COVID-19 Clin Com Discharge Plan Discharge Clinical Impression: Alcoholic intoxication, Alcohol abuse, Hypomagnesemia Prescriptions: No Action albuterol sulfate 90 mcg/actuation HFA aerosol inhaler 2 puff inhalation Q4-6H PRN (Reason: Wheezing) RF: 0 melatonin 5 mg tablet 1 tab PO BEDTIME PRN (Reason: Insomnia) RF: 0 Eliquis 5 mg tablet 1 tab PO BID RF: 0 Combivent Respimat 20-100 mcg/actuation mist 2 puff inhalation BID RF: 0 cyclobenzaprine 10 mg tablet 1 tab PO TID PRN (Reason: Muscle Spasm) RF: 0
[2020-09-28 03:02] LABS: Alanine Aminotransferase 116 U/L (0-40); Albumin Level 4.2 g/dL (3.5-5.0); Alkaline Phosphatase 136 U/L (39-117); Anion Gap 15 (12-20); Aspartate Amino Transferase 215 U/L (5-37); Blood Urea Nitrogen 11 mg/dL (9-16); Calcium 8.8 mg/dL (8.4-10.2); Carbon Dioxide 29 mmol/L (22-29); Chloride 102 mmol/L (96-108); Creatinine Clr Calc Pharmacy 90.4; Estimated Glomerular Filt Rate > 60; Glucose Random 117 mg/dL (60-115); Magnesium 1.4 mg/dL (1.6-2.6); Potassium 3.4 mmol/L (3.3-5.1); Sodium 143 mmol/L (135-145); Total Protein 7.5 g/dL (6.5-8.0)
[2020-09-28 03:07] LABS: Glucose Urine UA NEG (NEG); Leukocyte Esterase Urine NEG (NEG); Nitrite Urine NEG (NEG); PH 6.5 (5.0-8.0); Urine Blood NEG (NEG); Urine Ketones NEG (NEG); Urine Protein TRACE MG/DL (NEG-TRACE)
[2020-09-28 03:09] LABS: Appearance Urine CLEAR; Color Urine YELLOW
[2020-09-28] MEDS: Magnesium Sulfate/D5W 1 GM/100 ML PIGGYBACK IV (03:17)
--- NOTE | 2020-09-28 03:18 | PC.NURSE ---
Mag infusing per MAR.
[2020-09-28 03:22] LABS: Amphetamine Screen Urine Not Detected (Not Detect); Barbiturates, Urine Not Detected (Not Detect); Benzodiazepines Screen Urine Not Detected (Not Detect); Cannabinoid Screen Urine Not Detected (Not Detect); Cocaine Screen Urine Not Detected (Not Detect); Opiate Screen Urine Not Detected (Not Detect); Phencyclidine Screen Urine Not Detected (Not Detect)
--- NOTE | 2020-09-28 05:18 | PC.NURSE ---
Pt ringing his call goetz. This RN at bedside. Pt states I need to talk to somebody! I can't sit in here alone! This RN updating pt on plan of care to see Care Team in the morning to discuss detox facilities. Pt asking for something to sleep, advised of the time, this RN explaining that he needs to be awake for his consult. VSS at this time. Continue to monitor.
--- NOTE | 2020-09-28 07:26 | PC.NURSE ---
report taken from SALVADOR Morris. pt calm and cooperative, eating breakfast in bed. awaiting CARE team for eval.
[2020-09-28] MEDS: Ondansetron ODT 4 MG TAB.RAPDIS TRANSLINGU (08:59)
--- NOTE | 2020-09-28 09:28 | MHC.RECOVSUP ---
Recovery Support note: Patient is a 60 year old Maldivian speaking male who presented to [facility] intoxicated seeking detox. This internal communications writer met with patient to discuss his substance use and treatment options. Patient reports drinking 2 pints of liquor and a few nips daily. Patient reports numerous detox admissions across the state and reports no significant periods of sobriety over the past 40 years. Patient reports he is willing to go anywhere for treatment. This internal communications writer conducted a detox bedsearch for this patient. Facilities reported no beds or instructed to call back after 10AM. Prior to 10AM, patient expressed interest in leaving and pursuing placement on his own. Patient is familiar with the process from previous detox admissions. Discussed [facility] with patient and provided him with information. Patient provided with a list of detox facilities to follow up with. Discussed alcohol withdrawal and encouraged patient to return if he begins to feel sick. Patient reports no questions at this time. Discussed case with patient's RN.
== END 2020-09-28 09:59 | disposition home or self-care (01) ==
PROVIDERS: Emergency Provider Student in an Organized Health Care Education/Training Program
DX: F10.130 Alcohol abuse with withdrawal, uncomplicated (principal); Y90.8 Blood alcohol level of 240 mg/100 ml or more; E83.42 Hypomagnesemia; Z20.822 Contact with and (suspected) exposure to COVID-19; F17.210 Nicotine dependence, cigarettes, uncomplicated; F12.90 Cannabis use, unspecified, uncomplicated
CPT/HCPCS: 36415; 80053; 80307; 81003; 82077; 83735; 85027; 87635; 96365; 99284; J3475

== ENCOUNTER 2020-10-04 16:23 | Emergency (ER) | payer OTHER, SELFPAY ==
--- NOTE | ~2020-10-04 | US_ITS ---
EXAMINATION: US ABDOMEN LIMITED CLINICAL INFORMATION: Elevated LFTs. COMPARISON: None TECHNIQUE: Real-time imaging of the right upper quadrant abdominal viscera. FINDINGS: PANCREAS: Partially obscured by overlying bowel gas but where seen it was grossly unremarkable. LIVER: Diffusely increased hepatic echotexture suggesting diffuse fatty infiltration. The liver is normal in size. The liver contour is normal. No focal hepatic lesion. There is no intrahepatic biliary duct dilatation seen. GALLBLADDER: Gallbladder is partially contracted. Multiple gallstones seen within the gallbladder. No obvious gallbladder wall thickening or pericholecystic inflammatory changes. COMMON BILE DUCT: Normal in caliber measuring 0.5 cm in diameter. RIGHT KIDNEY: Not able to be delineated. FREE FLUID: None. US/US abdomen limited IMPRESSION: Diffusely increased hepatic echotexture consistent with diffuse fatty infiltration. Multiple gallstones in the contracted but otherwise unremarkable gallbladder.
[2020-10-04 16:31] VITALS: BP 110/72; PULSE 88; PULSE 98; RESP 16; O2SAT 93; O2SAT 98; BMI 23.8
--- NOTE | 2020-10-04 16:34 | ED.ALCOHOL ---
HPI - Alcohol General Chief Complaint: Altered Mental Status Stated Complaint: ETOH Time Seen by Provider: 10/04/20 16:33 Source: patient and EMS Mode of arrival: EMS Limitations: other (poor historian) History of Present Illness MD complaint: alcohol dependence and desires rehab Last drink: Hours (ago) Chronic alcohol use: Yes Previous visits for alcohol intoxication: Yes Recent trauma: No Associated symptoms: denies other symptoms Treatments prior to arrival: none Related Data Home Medications Medication Instructions Recorded Confirmed albuterol sulfate 90 mcg/actuation 2 puff INHALATION Q4-6H PRN 09/11/20 10/04/20 aerosol inhaler apixaban 5 mg tablet (Eliquis) 1 tab PO BID 09/11/20 10/04/20 melatonin 5 mg tablet 1 tab PO BEDTIME PRN 09/11/20 10/04/20 ipratropium 20 mcg-albuterol 100 1 puff INHALATION Q6H 10/04/20 10/04/20 mcg/actuation mist for inhalation (Combivent Respimat) Allergies Allergy/AdvReac Type Severity Reaction Status Date / Time Peanut Butter Allergy Facial Verified 09/28/20 01:55 Swelling raspberry Allergy Facial Verified 09/28/20 01:55 Swelling Review of Systems Review of Systems: Constitutional : No Weight loss, No Fever, No Chills, No Fatigue, No Malaise ENT/Mouth : No sore throat, No Rhinorrhea Eyes: No Eye Pain, No Swelling, No Redness Cardiovascular : No Chest Pain, No SOB, No Dyspnea on Exertion, No Orthopnea, No Edema, No Palpitations Respiratory : No Cough, No Sputum, No Wheezing Gastrointestinal : No Nausea, No Vomiting, No Diarrhea, No Constipation, No abdominal Pain, No Hematochezia, No Melena Genitourinary : No Dysuria, No Urinary Frequency, No Hematuria, Musculoskeletal : No joint pain, No Myalgias, No Joint Swelling Skin : No Skin Lesions, No rash Neuro : No Weakness, No Numbness, No Dizziness, No Headache Psych : No Anxiety/Panic, No Depression, no SI/HI All other systems reviewed and are negative [facility] Past Medical History Attestation statement: The following information was validated with the patient. Medical History Afib Alcohol abuse Asthma COPD (chronic obstructive pulmonary disease) Neuropathy Social History Social History Alcohol intake: current Alcohol intake frequency: 3 or more drinks per day Patient Tobacco Use Status: Current everyday Tobacco user Substance Use Type: Marijuana Advance Directives: No Advance Directives Information Provided: No Physical Exam Vital Signs: Vital Signs: Last Vital Signs Temp 98.4 F 10/04/20 19:32 Pulse 93 10/04/20 19:29 Resp 16 10/04/20 19:29 BP 99/65 10/04/20 19:29 Pulse Ox 95 10/04/20 19:29 Body Mass Index 23.8 Appearance: Alert. Oriented X3. No acute distress. ETOH odor, unkempt Eyes: Pupils equal, round and reactive to light. ENT: Pharynx normal. Neck: Normal inspection. Neck supple. CVS: Normal heart rate and rhythm. Pulses normal. Respiratory: No respiratory distress. Breath sounds normal. Abdomen: Soft and nontender. Skin: Skin warm and dry. Normal skin color. Normal skin turgor. Extremities: No lower extremity edema. No calf ttp Neuro: Oriented X 3. No motor deficit. No sensory deficit. Course Course Course Narrative: BP increasing drinking water, labs pending LFTs increasing due to ETOH - does not want detox will repeat LFTs in AM, wants detox no abdominal pain n/v BP improved, hypotension, elevated LFTs, thrombocytopenia due to ETOH abuse and dehydration not infection or severe sepsis Physician observation started at 1022pm Patient placed in physician observation because the patient needed more time for possible detox and repeat liver function tests. At the time observation was started the patient's vitals were stable, patient is alert and oriented , Neuro: nonfocal, CV RRR, Lungs clear signed out pending repeat labs in AM as well as possible recovery coaches to help with detox MDM - Alcohol MDM Narrative Medical decision making narrative: 60 yo male chronic ETOH, afib on eliquis, COPD here with desire for detox, will obtain basic labs and consult recovery coaches - no acute medical complaints. Lab Data Result diagrams: 10/04/20 19:39 10/04/20 19:39 Labs: Lab Results 10/04/20 10/04/20 10/04/20 Range/Units 17:49 19:39 19:39 WBC 4.9 (4.8-10.8) X10*3/uL RBC 4.04 L (4.60-5.80) X10*6/uL Hgb 12.3 L (14.0-18.0) g/dl Hct 37.2 L (42-52) % MCV 92.1 (80-98) fL MCH 30.4 (27.0-33.0) pg MCHC 33.1 (31.0-36.0) g/dl RDW 17.0 H (11.0-16.0) % Plt Count 117 L (160-400) X10*3/uL MPV 9.5 (9.4-12.4) fL Immature Gran % (Auto) 0.4 (0.0-0.4) % Neut % (Auto) 52.6 (45-73) % Lymph % (Auto) 30.1 (20-40) % [place] % (Auto) 8.6 (2-11) % Eos % (Auto) 6.9 H (0-4) % Baso % (Auto) 1.4 (0-2) % Lymph # (Auto) 1.5 (1.2-4.9) X10*3/uL [place] # (Auto) 0.4 (0.1-1.2) X10*3/uL Eos # (Auto) 0.3 (0.0-0.4) X10*3/uL Baso # (Auto) 0.1 (0.0-0.2) X10*3/uL Abs Immat Gran (auto) 0.02 (0.00-0.03) X10*3/uL Absolute Neuts (auto) 2.6 (2.0-8.3) X10*3/uL Absolute Nucleated RBC 0.000 (0.0-0.012) X10*3/uL Nucleated RBC % (auto) 0.0 (0.0-0.2) /100WBC Sodium 140 (135-145) mmol/L Potassium 3.6 (3.3-5.1) mmol/L Chloride 99 (96-108) mmol/L Carbon Dioxide 27 (22-29) mmol/L Anion Gap 18 (12-20) BUN 6 L (9-16) mg/dL Creatinine 0.93 (0.5-1.4) mg/dL Estim Creat Clear Calc 73.4 Estimated GFR > 60 POC Glucose 83 (60-115) mg/dL Random Glucose 99 (60-115) mg/dL Calcium 9.6 D (8.4-10.2) mg/dL Magnesium (1.6-2.6) mg/dL Total Bilirubin 0.9 (0.0-1.0) mg/dL Direct Bilirubin 0.6 H (0.0-0.5) mg/dL AST 424 H (5-37) U/L ALT 200 H (0-40) U/L Alkaline Phosphatase 135 H (39-117) U/L Total Protein 7.5 (6.5-8.0) g/dL Albumin 4.2 (3.5-5.0) g/dL Ethyl Alcohol mg/dL 10/04/20 10/04/20 Range/Units 19:39 19:39 WBC (4.8-10.8) X10*3/uL RBC (4.60-5.80) X10*6/uL Hgb (14.0-18.0) g/dl Hct (42-52) % MCV (80-98) fL MCH (27.0-33.0) pg MCHC (31.0-36.0) g/dl RDW (11.0-16.0) % Plt Count (160-400) X10*3/uL MPV (9.4-12.4) fL Immature Gran % (Auto) (0.0-0.4) % Neut % (Auto) (45-73) % Lymph % (Auto) (20-40) % [place] % (Auto) (2-11) % Eos % (Auto) (0-4) % Baso % (Auto) (0-2) % Lymph # (Auto) (1.2-4.9) X10*3/uL [place] # (Auto) (0.1-1.2) X10*3/uL Eos # (Auto) (0.0-0.4) X10*3/uL Baso # (Auto) (0.0-0.2) X10*3/uL Abs Immat Gran (auto) (0.00-0.03) X10*3/uL Absolute Neuts (auto) (2.0-8.3) X10*3/uL Absolute Nucleated RBC (0.0-0.012) X10*3/uL Nucleated RBC % (auto) (0.0-0.2) /100WBC Sodium (135-145) mmol/L Potassium (3.3-5.1) mmol/L Chloride (96-108) mmol/L Carbon Dioxide (22-29) mmol/L Anion Gap (12-20) BUN (9-16) mg/dL Creatinine (0.5-1.4) mg/dL Estim Creat Clear Calc Estimated GFR POC Glucose (60-115) mg/dL Random Glucose (60-115) mg/dL Calcium (8.4-10.2) mg/dL Magnesium 1.5 L (1.6-2.6) mg/dL Total Bilirubin (0.0-1.0) mg/dL Direct Bilirubin (0.0-0.5) mg/dL AST (5-37) U/L ALT (0-40) U/L Alkaline Phosphatase (39-117) U/L Total Protein (6.5-8.0) g/dL Albumin (3.5-5.0) g/dL Ethyl Alcohol 225 mg/dL Discharge Plan Discharge Clinical Impression: Alcohol abuse, Elevated liver function tests Prescriptions: No Action albuterol sulfate 90 mcg/actuation HFA aerosol inhaler 2 puff inhalation Q4-6H PRN (Reason: Wheezing) RF: 0 melatonin 5 mg tablet 1 tab PO BEDTIME PRN (Reason: Insomnia) RF: 0 Eliquis 5 mg tablet 1 tab PO BID RF: 0 Combivent Respimat 20-100 mcg/actuation Mist 1 puff INHALATION Q6H RF: 0
[2020-10-04 17:16] VITALS: BP 89/54; PULSE 91; RESP 16
[2020-10-04 17:44] VITALS: BP 92/59; PULSE 86; RESP 16
[2020-10-04 17:54] LABS: Glucose, Whole Blood 83 mg/dL (60-115)
--- NOTE | 2020-10-04 17:56 | PC.NURSE ---
patient sitting in intake chair, seems entertained to chat with staff. took poc d/t patient reporting feeling weak, in 80s. patients VS responding well seemingly to po intake of fluids.
--- NOTE | 2020-10-04 19:26 | PC.NURSE ---
phlabotomy called to draw labs, pt is a difficult stick.
[2020-10-04 19:29] VITALS: BP 99/65; PULSE 93; RESP 16; O2SAT 95
[2020-10-04 19:32] VITALS: TEMP 36.9
[2020-10-04 19:46] LABS: MANUAL DIFF FLAG NO
[2020-10-04 19:49] LABS: Basophils Absolute Auto 0.1 X10*3/uL (0.0-0.2); Basophils Percent Auto 1.4 % (0-2); Eosinophils Absolute Auto 0.3 X10*3/uL (0.0-0.4); Eosinophils Percent Auto 6.9 % (0-4); Hematocrit 37.2 % (42-52); Hemoglobin 12.3 g/dl (14.0-18.0); Imm Gran Abs Auto 0.02 X10*3/uL (0.00-0.03); Imm Gran Pct Auto 0.4 % (0.0-0.4); Lymphocytes Absolute Auto 1.5 X10*3/uL (1.2-4.9); Lymphocytes Percent Auto 30.1 % (20-40); Mean Corpuscular HGB Conc 33.1 g/dl (31.0-36.0); Mean Corpuscular Hemoglobin 30.4 pg (27.0-33.0); Mean Corpuscular Volume 92.1 fL (80-98); Mean Platelet Volume 9.5 fL (9.4-12.4); Monocytes Absolute Auto 0.4 X10*3/uL (0.1-1.2); Monocytes Percent Auto 8.6 % (2-11); Neutrophils Absolute Auto 2.6 X10*3/uL (2.0-8.3); Neutrophils Percent Auto 52.6 % (45-73); Platelet Count 117 X10*3/uL (160-400); Red Blood Count 4.04 X10*6/uL (4.60-5.80); White Blood Count 4.9 X10*3/uL (4.8-10.8)
[2020-10-04 20:10] LABS: Ethanol 225 mg/dL
[2020-10-04 20:14] LABS: Magnesium 1.5 mg/dL (1.6-2.6)
[2020-10-04 20:16] LABS: Alanine Aminotransferase 200 U/L (0-40); Albumin Level 4.2 g/dL (3.5-5.0); Alkaline Phosphatase 135 U/L (39-117); Anion Gap 18 (12-20); Aspartate Amino Transferase 424 U/L (5-37); Bilirubin Direct 0.6 mg/dL (0.0-0.5); Bilirubin Total 0.9 mg/dL (0.0-1.0); Blood Urea Nitrogen 6 mg/dL (9-16); Calcium 9.6 mg/dL (8.4-10.2); Carbon Dioxide 27 mmol/L (22-29); Chloride 99 mmol/L (96-108); Creatinine Clr Calc Pharmacy 73.4; Estimated Glomerular Filt Rate > 60; Glucose Random 99 mg/dL (60-115); Potassium 3.6 mmol/L (3.3-5.1); Sodium 140 mmol/L (135-145); Total Protein 7.5 g/dL (6.5-8.0)
--- NOTE | 2020-10-04 20:45 | PC.NURSE ---
spoke with pt and states multiple times that he does want to seek detox.
[2020-10-04] MEDS: Magnesium Oxide 400 MG TABLET 800 MG PO (21:30)
--- NOTE | 2020-10-04 21:53 | MHC.CARE ---
CARE team is very familiar with pt. CARE team or recovery team can meet with pt tomorrow morning when sober to determine if he still wants detox services. There are currently no beds and pt has hx of declining tx once sober. CARE team or Recovery team will meet with pt tomorrow.
--- NOTE | 2020-10-05 04:26 | PC.NURSE ---
pt is oob to bathroom with steady gait no walker used. pt back to bed and forgot to give a urine.
[2020-10-05 05:40] LABS: Alanine Aminotransferase 189 U/L (0-40); Albumin Level 3.8 g/dL (3.5-5.0); Alkaline Phosphatase 147 U/L (39-117); Aspartate Amino Transferase 355 U/L (5-37); Bilirubin Direct 0.6 mg/dL (0.0-0.5); Bilirubin Total 0.8 mg/dL (0.0-1.0)
--- NOTE | 2020-10-05 05:45 | PC.NURSE ---
pt has been sleeping thur the night, pt ambulated to the bathroom with a steady gait. pt did not use his walker.
[2020-10-05 05:46] LABS: Influenza A PCR NEGATIVE (Negative); Influenza B PCR NEGATIVE (Negative); Resp Syncy Virus RNA Qual PCR NEGATIVE (Negative); SARS COV2 PCR INHOUSE NEGATIVE (Negative)
[2020-10-05 06:00] VITALS: BP 119/77; PULSE 106; RESP 24; TEMP 37.5; O2SAT 93
[2020-10-05] MEDS: Albuterol Sulfate 90 MCG 8 GM INHALER 2 PUFF INHALE (08:36)
[2020-10-05 09:26] VITALS: BP 114/70; PULSE 98; O2SAT 94
[2020-10-05] MEDS: LORazepam 1 MG TABLET 2 MG PO (09:36)
[2020-10-05] MEDS: Apixaban 5 MG TABLET PO (09:36)
--- NOTE | 2020-10-05 10:25 | PC.NURSE ---
pt off unit to u/s
[2020-10-05 11:11] LABS: Amphetamine Screen Urine Not Detected (Not Detect); Barbiturates, Urine Not Detected (Not Detect); Benzodiazepines Screen Urine POSITIVE (Not Detect); Cannabinoid Screen Urine POSITIVE (Not Detect); Cocaine Screen Urine Not Detected (Not Detect); Opiate Screen Urine Not Detected (Not Detect); Phencyclidine Screen Urine Not Detected (Not Detect)
[2020-10-05 11:24] VITALS: BP 114/70; PULSE 98; RESP 18; TEMP 37.2; O2SAT 94
--- NOTE | 2020-10-05 12:49 | PC.NURSE ---
kaz (care team) speaking with pt at bedside. pt aware of plan of care. pt amb (i) gait steady to bathroom and btb. pt [id number]/given a sandwich by kaz(care team)
--- NOTE | 2020-10-05 14:19 | PC.NURSE ---
Plan for dispo currently in progress by Jp from Recovery team. Pt d/c yesterday from [facility].
--- NOTE | 2020-10-05 14:30 | MHC.RECOVSUP ---
Recovery Support note: Patient presented to [facility] intoxicated seeking detox. This telegraphic typewriter operator met with patient to discuss his alcohol use and treatment options. Patient reports he was at [facility] earlier in the week for one day and he does not think they would take him back. Patient reports he does not want to leave [facility] for treatment and that he has had good experiences at [place] in the past. This telegraphic typewriter operator contacted [facility] and they report that patient discharged on 10/04 and that he was in treatment for 3 days. Patient reports he went home and had two bottles of alcohol and that he started drinking immediately. Patient reports he pays $40 to take a taxi to the liquor store as he cannot drive and does not live near one. Patient reports a desire to get into recovery. Patient was referred to [facility] and has been accepted to [facility] in [place] for a 1800 admission time. [facility] and is scheduled to pick patient up at 1715. Discussed case with patient's RN and ED provider.
== END 2020-10-05 17:25 | disposition home or self-care (01) ==
PROVIDERS: Emergency Provider Emergency Medicine
DX: F10.10 Alcohol abuse, uncomplicated (principal); Y90.7 Blood alcohol level of 200-239 mg/100 ml; R94.5 Abnormal results of liver function studies; J44.9 Chronic obstructive pulmonary disease, unspecified; I48.91 Unspecified atrial fibrillation; Z79.01 Long term (current) use of anticoagulants; Z79.899 Other long term (current) drug therapy; Z20.822 Contact with and (suspected) exposure to COVID-19
CPT/HCPCS: 0241U; 36415; 76705; 80048; 80076; 80307; 82077; 82947; 83735; 85025; 99285

== ENCOUNTER 2020-10-20 23:00 | Emergency (ER) | payer OTHER, SELFPAY ==
[2020-10-20 23:02] VITALS: BP 110/63; BP 114/62; PULSE 79; PULSE 80; RESP 16; TEMP 35.7; O2SAT 94; O2SAT 95; BMI 25.8
[2020-10-20 23:11] VITALS: BP 114/62; PULSE 79; RESP 16; TEMP 35.7; O2SAT 95
--- NOTE | 2020-10-20 23:15 | ECG_ITS ---
Test Reason : ETOH Blood Pressure : / mmHG Vent. Rate : 078 BPM Atrial Rate : 078 BPM P-R Int : 140 ms QRS Dur : 136 ms QT Int : 424 ms P-R-T Axes : 068 -56 039 degrees QTc Int : 483 ms Normal sinus rhythm Right bundle branch block Left anterior fascicular block Bifascicular block Abnormal ECG When compared with ECG of 11-SEP-2020 01:00, No significant change was found Referred By: Yamel Bradley Electronically Signed By:RADHA MAIER
--- NOTE | 2020-10-20 23:17 | ED.ALCOHOL ---
HPI - Alcohol General Chief Complaint: ETOH/Substance Use Stated Complaint: etoh Time Seen by Provider: 10/20/20 23:05 Source: patient and EMS Mode of arrival: EMS Limitations: no limitations History of Present Illness HPI narrative: Patient is brought to the emergency room for alcohol abuse. Patient called the ambulance. According to the patient, patient states that he drank 2 pt of whiskey today. Denies suicidal or homicidal ideation. Patient states that he called EMS because he was feeling very weak Related Data Home Medications Medication Instructions Recorded Confirmed albuterol sulfate 90 mcg/actuation 2 puff INHALATION Q4-6H PRN 09/11/20 10/21/20 aerosol inhaler apixaban 5 mg tablet (Eliquis) 1 tab PO BID 09/11/20 10/21/20 melatonin 5 mg tablet 1 tab PO BEDTIME PRN 09/11/20 10/21/20 ipratropium 20 mcg-albuterol 100 1 puff INHALATION Q6H 10/04/20 10/21/20 mcg/actuation mist for inhalation (Combivent Respimat) acamprosate 333 mg tablet,delayed 2 tab PO TID 10/21/20 10/21/20 release nicotine (polacrilex) 4 mg buccal 4 mg PO DIRECTED 10/21/20 10/21/20 lozenge nicotine 21 mg/24 hr daily 1 patch TOPICAL DAILY 10/21/20 10/21/20 transdermal patch Allergies Allergy/AdvReac Type Severity Reaction Status Date / Time Peanut Butter Allergy Facial Verified 09/28/20 01:55 Swelling raspberry Allergy Facial Verified 09/28/20 01:55 Swelling Review of Systems Review of Systems: Constitutional : No Weight loss, No Fever, No Chills, No Night Sweats, complaining of fatigue and generalized weakness ENT/Mouth : No Hearing loss, No Ear Pain, No Nasal Congestion, No Sinus Pain, No Hoarseness, No sore throat, No Rhinorrhea, No Swallowing Difficulty Eyes: No Eye Pain, No Swelling, No Redness, No Foreign Body, No Discharge, No Vision Changes Cardiovascular : No Chest Pain, No SOB, No Dyspnea on Exertion, No Orthopnea, No Edema, No Palpitations Respiratory : No Cough, No Sputum, No Wheezing, No Smoke Exposure, No Dyspnea Gastrointestinal : No Nausea, No Vomiting, No Diarrhea, No Constipation, No abdominal Pain, No Hematochezia, No Melena Genitourinary : no irregular bleeding, No Dysuria, No Urinary Frequency, No Hematuria, No Urinary Incontinence, No Urgency, No Flank Pain, No Urinary Flow Changes, No Hesitancy Musculoskeletal : No joint pain, No Myalgias, No Joint Swelling Skin : No Skin Lesions, No rash Neuro : No Weakness, No Numbness, No Paresthesias, No Loss of Consciousness, No Dizziness, No Headache Psych : No Anxiety/Panic, No Depression, No SI/HI/AH/VH, No Social Issues, Heme/Lymph: No Bruising, No Bleeding,No Lymphadenopathy Endocrine : No Polyuria, No Polydipsia, No Temperature Intolerance [facility] Past Medical History Medical History Afib Alcohol abuse Asthma COPD (chronic obstructive pulmonary disease) Neuropathy Social History Social History Alcohol intake: current Alcohol intake frequency: 3 or more drinks per day Alcohol type: beer, wine and hard liquor Patient Tobacco Use Status: Current everyday Tobacco user Smoked in Last 30 Days: Yes Use of substances other than those prescribed or required for medical reasons: No Substance Use Type: Marijuana Advance Directives: No Physical Exam Vital Signs: Vital Signs: Last Vital Signs Temp 96.3 F L 10/20/20 23:11 Pulse 79 10/20/20 23:11 Resp 16 10/21/20 06:00 BP 114/62 10/20/20 23:11 Pulse Ox 95 10/20/20 23:11 Body Mass Index 25.8 Const: Other: Appearance: Alert. Oriented X3. No acute distress. Eyes: Pupils equal, round and reactive to light. ENT: Pharynx normal. Neck: Normal inspection. Neck supple. No lymph nodes noted. No crepitus CVS: Normal heart rate and rhythm. Pulses normal. Normal S1 and S2 Respiratory: No respiratory distress. Breath sounds normal. No Wheezing. No rales Abdomen: Soft and nontender. No rigidity. No distention. good BS x4 Skin: Skin warm and dry. Normal skin color. Normal skin turgor. Extremities: No lower extremity edema.No Lacerations. No Rash Neuro: Oriented X 3. No motor deficit. No sensory deficit. Moving all extermities. No slurred speech. Course Course Course Narrative: Patient is clinically sober. Patient is alert and oriented x3, ambulatory with steady gait, with assistance of his cane which he uses at baseline. Patient calm and cooperative, insists on leaving to smoke as his cigarette. Now at 07:45, patient is clinically sober, ambulating, ready for discharge. MDM - Alcohol Lab Data Result diagrams: 10/20/20 23:24 10/20/20 23:24 Labs: Lab Results 10/20/20 10/20/20 10/20/20 Range/Units 23:24 23:24 23:24 WBC 5.5 (4.8-10.8) X10*3/uL RBC 3.90 L (4.60-5.80) X10*6/uL Hgb 11.8 L (14.0-18.0) g/dl Hct 35.6 L (42-52) % MCV 91.3 (80-98) fL MCH 30.3 (27.0-33.0) pg MCHC 33.1 (31.0-36.0) g/dl RDW 16.6 H (11.0-16.0) % Plt Count 209 D (160-400) X10*3/uL MPV 8.7 L (9.4-12.4) fL Immature Gran % (Auto) 0.4 (0.0-0.4) % Neut % (Auto) 48.8 (45-73) % Lymph % (Auto) 36.5 (20-40) % [place] % (Auto) 8.2 (2-11) % Eos % (Auto) 4.6 H (0-4) % Baso % (Auto) 1.5 (0-2) % Lymph # (Auto) 2.0 (1.2-4.9) X10*3/uL [place] # (Auto) 0.5 (0.1-1.2) X10*3/uL Eos # (Auto) 0.3 (0.0-0.4) X10*3/uL Baso # (Auto) 0.1 (0.0-0.2) X10*3/uL Abs Immat Gran (auto) 0.02 (0.00-0.03) X10*3/uL Absolute Neuts (auto) 2.7 (2.0-8.3) X10*3/uL Absolute Nucleated RBC 0.000 (0.0-0.012) X10*3/uL Nucleated RBC % (auto) 0.0 (0.0-0.2) /100WBC PT 11.4 (9.9-13.0) SEC INR 1.0 (0.9-1.1) Sodium 145 (135-145) mmol/L Potassium 4.0 (3.3-5.1) mmol/L Chloride 107 (96-108) mmol/L Carbon Dioxide 27 (22-29) mmol/L Anion Gap 15 (12-20) BUN 10 D (9-16) mg/dL Creatinine 0.85 (0.5-1.4) mg/dL Estim Creat Clear Calc 83.3 Estimated GFR > 60 Random Glucose 94 (60-115) mg/dL Calcium 8.6 D (8.4-10.2) mg/dL Magnesium (1.6-2.6) mg/dL Total Bilirubin 0.6 (0.0-1.0) mg/dL Direct Bilirubin 0.3 (0.0-0.5) mg/dL AST 103 H (5-37) U/L ALT 77 H (0-40) U/L Alkaline Phosphatase 119 H (39-117) U/L Total Protein 7.5 (6.5-8.0) g/dL Albumin 4.2 (3.5-5.0) g/dL Lipase (8-78) U/L Ethyl Alcohol mg/dL 10/20/20 10/20/20 Range/Units 23:24 23:24 WBC (4.8-10.8) X10*3/uL RBC (4.60-5.80) X10*6/uL Hgb (14.0-18.0) g/dl Hct (42-52) % MCV (80-98) fL MCH (27.0-33.0) pg MCHC (31.0-36.0) g/dl RDW (11.0-16.0) % Plt Count (160-400) X10*3/uL MPV (9.4-12.4) fL Immature Gran % (Auto) (0.0-0.4) % Neut % (Auto) (45-73) % Lymph % (Auto) (20-40) % [place] % (Auto) (2-11) % Eos % (Auto) (0-4) % Baso % (Auto) (0-2) % Lymph # (Auto) (1.2-4.9) X10*3/uL [place] # (Auto) (0.1-1.2) X10*3/uL Eos # (Auto) (0.0-0.4) X10*3/uL Baso # (Auto) (0.0-0.2) X10*3/uL Abs Immat Gran (auto) (0.00-0.03) X10*3/uL Absolute Neuts (auto) (2.0-8.3) X10*3/uL Absolute Nucleated RBC (0.0-0.012) X10*3/uL Nucleated RBC % (auto) (0.0-0.2) /100WBC PT (9.9-13.0) SEC INR (0.9-1.1) Sodium (135-145) mmol/L Potassium (3.3-5.1) mmol/L Chloride (96-108) mmol/L Carbon Dioxide (22-29) mmol/L Anion Gap (12-20) BUN (9-16) mg/dL Creatinine (0.5-1.4) mg/dL Estim Creat Clear Calc Estimated GFR Random Glucose (60-115) mg/dL Calcium (8.4-10.2) mg/dL Magnesium 1.9 (1.6-2.6) mg/dL Total Bilirubin (0.0-1.0) mg/dL Direct Bilirubin (0.0-0.5) mg/dL AST (5-37) U/L ALT (0-40) U/L Alkaline Phosphatase (39-117) U/L Total Protein (6.5-8.0) g/dL Albumin (3.5-5.0) g/dL Lipase 51 (8-78) U/L Ethyl Alcohol 327 H* mg/dL Discharge Plan Discharge Clinical Impression: Alcoholic intoxication Patient Disposition: Home, Self-Care Instructions: Alcohol Intoxication (ED) Additional Instructions: Please follow-up with your primary care physician tomorrow. If you have any worsening or new symptoms, please return to the emergency room or call 911 Prescriptions: No Action nicotine 21 mg/24 hr patch 24 hour 1 patch topical DAILY RF: 0 nicotine (polacrilex) 4 mg lozenge 4 mg PO DIRECTED RF: 0 acamprosate 333 mg tablet,delayed release (DR/EC) 2 tab PO TID RF: 0 albuterol sulfate 90 mcg/actuation HFA aerosol inhaler 2 puff inhalation Q4-6H PRN (Reason: Wheezing) RF: 0 melatonin 5 mg tablet 1 tab PO BEDTIME PRN (Reason: Insomnia) RF: 0 Eliquis 5 mg tablet 1 tab PO BID RF: 0 Combivent Respimat 20-100 mcg/actuation Mist 1 puff INHALATION Q6H RF: 0
[2020-10-20 23:33] LABS: Basophils Absolute Auto 0.1 X10*3/uL (0.0-0.2); Basophils Percent Auto 1.5 % (0-2); Eosinophils Absolute Auto 0.3 X10*3/uL (0.0-0.4); Eosinophils Percent Auto 4.6 % (0-4); Hematocrit 35.6 % (42-52); Hemoglobin 11.8 g/dl (14.0-18.0); Imm Gran Abs Auto 0.02 X10*3/uL (0.00-0.03); Imm Gran Pct Auto 0.4 % (0.0-0.4); Lymphocytes Percent Auto 36.5 % (20-40); MANUAL DIFF FLAG NO; Mean Corpuscular HGB Conc 33.1 g/dl (31.0-36.0); Mean Corpuscular Hemoglobin 30.3 pg (27.0-33.0); Mean Corpuscular Volume 91.3 fL (80-98); Mean Platelet Volume 8.7 fL (9.4-12.4); Monocytes Absolute Auto 0.5 X10*3/uL (0.1-1.2); Monocytes Percent Auto 8.2 % (2-11); Neutrophils Absolute Auto 2.7 X10*3/uL (2.0-8.3); Neutrophils Percent Auto 48.8 % (45-73); Platelet Count 209 X10*3/uL (160-400); Red Cell Distribution Width 16.6 % (11.0-16.0); White Blood Count 5.5 X10*3/uL (4.8-10.8)
[2020-10-20 23:40] LABS: Prothrombin Time 11.4 SEC (9.9-13.0)
[2020-10-21] VITALS: RESP 18
[2020-10-21 00:07] LABS: Ethanol 327 mg/dL
[2020-10-21 00:11] LABS: Lipase 51 U/L (8-78); Magnesium 1.9 mg/dL (1.6-2.6)
[2020-10-21 00:12] LABS: Alanine Aminotransferase 77 U/L (0-40); Albumin Level 4.2 g/dL (3.5-5.0); Alkaline Phosphatase 119 U/L (39-117); Anion Gap 15 (12-20); Aspartate Amino Transferase 103 U/L (5-37); Bilirubin Direct 0.3 mg/dL (0.0-0.5); Bilirubin Total 0.6 mg/dL (0.0-1.0); Blood Urea Nitrogen 10 mg/dL (9-16); Calcium 8.6 mg/dL (8.4-10.2); Carbon Dioxide 27 mmol/L (22-29); Chloride 107 mmol/L (96-108); Creatinine Clr Calc Pharmacy 83.3; Estimated Glomerular Filt Rate > 60; Glucose Random 94 mg/dL (60-115); Sodium 145 mmol/L (135-145); Total Protein 7.5 g/dL (6.5-8.0)
--- NOTE | 2020-10-21 01:09 | PC.NURSE ---
call placed to [facility]- person who answered the phone stated wrong number.
[2020-10-21 01:50] VITALS: RESP 16
[2020-10-21 04:00] VITALS: RESP 16
[2020-10-21 06:00] VITALS: RESP 16
--- NOTE | 2020-10-21 06:28 | PC.NURSE ---
pt is able to ambulate without difficulty. per dr. carmella solano to d/c now.
--- NOTE | 2020-10-21 09:22 | PC.NURSE ---
ELECTRICAL PROSPECTING ENGINEER SPEAKING WITH PT.
--- NOTE | 2020-10-21 09:40 | MHC.RECOVSUP ---
? Reason for consult:Continuity of care o Current location: discharged o Identified substance use concern: ETOH - Withdrawal - Support ? Intervention: o Community resources provided o Harm reduction discussion ? Plan: o Referral to CCC o Patient to follow up with [facility] after discharge ? Additional information:PT. refuses to go to detox, discussed harm reduction and community support including [facility]
== END 2020-10-21 09:30 | disposition home or self-care (01) ==
PROVIDERS: Emergency Provider Emergency Medicine
DX: F10.129 Alcohol abuse with intoxication, unspecified (principal); Y90.8 Blood alcohol level of 240 mg/100 ml or more; F12.90 Cannabis use, unspecified, uncomplicated; J44.9 Chronic obstructive pulmonary disease, unspecified; F17.200 Nicotine dependence, unspecified, uncomplicated; Z79.899 Other long term (current) drug therapy; Z71.6 Tobacco abuse counseling
CPT/HCPCS: 36415; 80048; 80076; 82077; 83690; 83735; 85025; 85610; 93005; 99285

== ENCOUNTER 2020-12-31 14:18 | Emergency (ER) | payer OTHER, SELFPAY ==
--- NOTE | ~2020-12-31 | XR_ITS ---
EXAMINATION: XR CHEST CLINICAL INFORMATION: Cough. COMPARISON: None TECHNIQUE: AP view of the chest was obtained. FINDINGS: Normal appearance of the cardiomediastinal silhouette. Minimal interstitial prominence. No focal consolidation or pleural effusion. No acute osseous findings. XR/XR chest 1V IMPRESSION: Minimal interstitial prominence of uncertain significance, this could potentially represent bronchial wall thickening in the setting of bronchitis, asthma or an atypical infection. No focal consolidation. Clear pleural spaces.
[2020-12-31 14:26] VITALS: BP 111/78; BP 134/80; PULSE 105; PULSE 92; RESP 18; TEMP 36.6; O2SAT 98; O2SAT 99; BMI 20.7
--- NOTE | 2020-12-31 14:27 | ECG_ITS ---
Test Reason : VOMITING Blood Pressure : / mmHG Vent. Rate : 102 BPM Atrial Rate : 102 BPM P-R Int : 136 ms QRS Dur : 116 ms QT Int : 384 ms P-R-T Axes : 082 -77 047 degrees QTc Int : 500 ms Sinus tachycardia Pulmonary disease pattern Right bundle branch block Left anterior fascicular block Bifascicular block Abnormal ECG When compared with ECG of 20-OCT-2020 23:40, QRS duration has decreased Heart rate has increased Referred By: Domitila Jauregui Electronically Signed By:ROJELIO PRAKASH MD
--- NOTE | 2020-12-31 14:29 | ED.ALCOHOL ---
HPI - Alcohol General Chief Complaint: ETOH/Substance Use Stated Complaint: weakness no etoh for 3 days Time Seen by Provider: 12/31/20 14:26 Source: patient, EMS and old records reviewed Mode of arrival: EMS Limitations: no limitations History of Present Illness MD complaint: alcohol withdrawal Last drink: Days (ago) (3) Chronic alcohol use: Yes Previous visits for alcohol intoxication: Yes Recent trauma: No Associated symptoms: nausea, vomiting and tremors Treatments prior to arrival: other (IVF and 4mg IV zofran with EMS) Related Data Home Medications Medication Instructions Recorded Confirmed albuterol sulfate 90 mcg/actuation 2 puff INHALATION Q4-6H PRN 09/11/20 12/31/20 aerosol inhaler apixaban 5 mg tablet (Eliquis) 1 tab PO BID 09/11/20 12/31/20 melatonin 5 mg tablet 1 tab PO BEDTIME PRN 09/11/20 12/31/20 docusate sodium 100 mg capsule 1 cap PO BID 12/31/20 12/31/20 (DOK) ipratropium 20 mcg-albuterol 100 1 puff INHALATION QID 12/31/20 12/31/20 mcg/actuation mist for inhalation (Combivent Respimat) Allergies Allergy/AdvReac Type Severity Reaction Status Date / Time Peanut Butter Allergy Facial Verified 09/28/20 01:55 Swelling raspberry Allergy Facial Verified 09/28/20 01:55 Swelling Review of Systems Review of Systems: Constitutional : No Weight loss, No Fever, No Chills ENT/Mouth : No sore throat, No Rhinorrhea Eyes: No Swelling, No Redness Cardiovascular : No Chest Pain, No SOB, NoEdema Respiratory : No Cough, No Sputum, No Wheezing Gastrointestinal : Positive Nausea, Positive Vomiting, no Diarrhea, positive abdominal Pain, No Hematochezia, No Melena Genitourinary : No Dysuria, No Urinary Frequency, No Hematuria, No Urgency Musculoskeletal : No joint pain, No Myalgias, No Joint Swelling Skin : No Skin Lesions, No rash Neuro : pos Weakness, No Numbness, No Dizziness, No Headache Psych : pos Anxiety/Panic, No Depression Heme/Lymph: No Bruising, No Lymphadenopathy Endocrine : No Polyuria, No Polydipsia All other systems reviewed and are negative. [facility] Past Medical History Attestation statement: The following information was validated with the patient. Medical History Afib Alcohol abuse Asthma COPD (chronic obstructive pulmonary disease) Neuropathy Social History Social History Alcohol intake: current Alcohol intake frequency: 3 or more drinks per day Alcohol type: beer, wine and hard liquor Patient Tobacco Use Status: Current everyday Tobacco user Substance Use Type: Marijuana Advance Directives: No Advance Directives Information Provided: No Physical Exam Vital Signs: Vital Signs: Last Vital Signs Temp 97.9 F 12/31/20 15:15 Pulse 101 H 12/31/20 16:21 Resp 18 12/31/20 16:21 BP 128/81 12/31/20 16:21 Pulse Ox 98 12/31/20 16:21 Body Mass Index 20.7 Appearance: Alert. Oriented X3. Anxious mild acute distress. Eyes: Pupils equal, round and reactive to light. ENT: Pharynx mild dry MM Neck: Normal inspection. Neck supple. CVS: Ntachycardic heart rate and rhythm. Pulses normal. Respiratory: No respiratory distress. Breath sounds slightly diminished Abdomen: Soft and nontender. Skin: Skin warm and dry. pale skin color. Normal skin turgor. Extremities: No lower extremity edema. No calf ttp Neuro: Oriented X 3. No motor deficit. No sensory deficit. Course Course Course Narrative: lactic acidosis, tachycardia due to ETOH withdrawal and not infection or severe sepsis recovery coaches involved, repeat lactic acid pending, possible detox, much improved PO ativan ordered signed out pending workup MDM - Alcohol MDM Narrative Medical decision making narrative: 60 yo male with hx of afib, COPD, ETOH about [facility] went home and drank states he binged then stopped drinking 3 days ago now c/o tremors n/v and anxiety. He seems uninterested in detox again. Will hydrate, give thiamine/folic acid/magnesium, IV ativan, dispo per labs and findings. If medically cleared will offer detox but unsure if he will consider. Lab Data Attestation: I reviewed the patient's lab results. Result diagrams: 12/31/20 14:40 12/31/20 14:40 Labs: Lab Results 12/31/20 12/31/20 12/31/20 Range/Units 14:40 14:40 14:40 WBC 6.2 (4.8-10.8) X10*3/uL RBC 3.75 L (4.60-5.80) X10*6/uL Hgb 11.5 L (14.0-18.0) g/dl Hct 34.6 L (42.0-52.0) % MCV 92.3 (80.0-98.0) fL MCH 30.7 (27.0-33.0) pg MCHC 33.2 (31.0-36.0) g/dl RDW 16.4 H (11.0-16.0) % Plt Count 141 L (160-400) X10*3/uL MPV 9.5 (9.4-12.4) fL Immature Gran % (Auto) 0.3 (0.0-0.4) % Neut % (Auto) 77.2 H (45-73) % Lymph % (Auto) 12.9 L (20-40) % [place] % (Auto) 8.4 (2-11) % Eos % (Auto) 0.2 (0-4) % Baso % (Auto) 1.0 (0-2) % Lymph # (Auto) 0.8 L (1.2-4.9) X10*3/uL [place] # (Auto) 0.5 (0.1-1.2) X10*3/uL Eos # (Auto) 0.0 (0.0-0.4) X10*3/uL Baso # (Auto) 0.1 (0.0-0.2) X10*3/uL Abs Immat Gran (auto) 0.02 (0.00-0.03) X10*3/uL Absolute Neuts (auto) 4.81 (2.0-8.3) x10*3/uL Absolute Nucleated RBC 0.000 (0.0-0.012) X10*3/uL Nucleated RBC % (auto) 0.0 (0.0-0.2) /100WBC Sodium 139 (135-145) mmol/L Potassium 4.2 (3.3-5.1) mmol/L Chloride 102 (96-108) mmol/L Carbon Dioxide 23 (22-29) mmol/L Anion Gap 18 (12-20) BUN 8 L (9-16) mg/dL Creatinine 0.74 (0.5-1.4) mg/dL Estim Creat Clear Calc 95.3 Estimated GFR > 60 Random Glucose 98 (60-115) mg/dL Lactic Acid 4.2 H* (0.5-2.0) mmol/L Calcium 8.3 L (8.4-10.2) mg/dL Magnesium 1.4 L* (1.6-2.6) mg/dL Total Bilirubin 1.4 H (0.0-1.0) mg/dL Direct Bilirubin 0.7 H (0.0-0.5) mg/dL AST 51 H (5-37) U/L ALT 22 (0-40) U/L Alkaline Phosphatase 153 H D (39-117) U/L Total Protein 7.4 (6.5-8.0) g/dL Albumin 4.0 (3.5-5.0) g/dL Lipase 29 (8-78) U/L Ethyl Alcohol mg/dL COVID-19 (NELY) (Negative) COVID-19 Clin Com 12/31/20 12/31/20 Range/Units 14:40 14:40 WBC (4.8-10.8) X10*3/uL RBC (4.60-5.80) X10*6/uL Hgb (14.0-18.0) g/dl Hct (42.0-52.0) % MCV (80.0-98.0) fL MCH (27.0-33.0) pg MCHC (31.0-36.0) g/dl RDW (11.0-16.0) % Plt Count (160-400) X10*3/uL MPV (9.4-12.4) fL Immature Gran % (Auto) (0.0-0.4) % Neut % (Auto) (45-73) % Lymph % (Auto) (20-40) % [place] % (Auto) (2-11) % Eos % (Auto) (0-4) % Baso % (Auto) (0-2) % Lymph # (Auto) (1.2-4.9) X10*3/uL [place] # (Auto) (0.1-1.2) X10*3/uL Eos # (Auto) (0.0-0.4) X10*3/uL Baso # (Auto) (0.0-0.2) X10*3/uL Abs Immat Gran (auto) (0.00-0.03) X10*3/uL Absolute Neuts (auto) (2.0-8.3) x10*3/uL Absolute Nucleated RBC (0.0-0.012) X10*3/uL Nucleated RBC % (auto) (0.0-0.2) /100WBC Sodium (135-145) mmol/L Potassium (3.3-5.1) mmol/L Chloride (96-108) mmol/L Carbon Dioxide (22-29) mmol/L Anion Gap (12-20) BUN (9-16) mg/dL Creatinine (0.5-1.4) mg/dL Estim Creat Clear Calc Estimated GFR Random Glucose (60-115) mg/dL Lactic Acid (0.5-2.0) mmol/L Calcium (8.4-10.2) mg/dL Magnesium (1.6-2.6) mg/dL Total Bilirubin (0.0-1.0) mg/dL Direct Bilirubin (0.0-0.5) mg/dL AST (5-37) U/L ALT (0-40) U/L Alkaline Phosphatase (39-117) U/L Total Protein (6.5-8.0) g/dL Albumin (3.5-5.0) g/dL Lipase (8-78) U/L Ethyl Alcohol 12 mg/dL COVID-19 (NELY) Negative (Negative) COVID-19 Clin Com See Note ECG Data ECG #1: Attestation: I personally reviewed and interpreted this ECG as follows: ECG interpretation date: 12/31/20 ECG interpretation time: 14:49 Prior ECG tracings: available for review Interpretation: Ventricular rate of 102, NH normal, QRS normal, QT/QTC prolonged, EKG shows sinus tachycardia with right bundle-branch block, left anterior fascicular block. Previous EKGs similar last one on 10/20/20, however at this time the QTC is longer than usual (500). Critical Care Time Critical Care Time Critical Care Time: Yes Total Critical Care Time: 35 Attestation: 2L of IVF, IV ativan, review of records I attest to this time spent taking care of the patient, repletion of magnesium Discharge Plan Discharge Clinical Impression: Hypomagnesemia, Acidosis, lactic Alcohol withdrawal syndrome Qualifiers: Complication of substance-induced condition: uncomplicated Qualified Code(s): F10.230 - Alcohol dependence with withdrawal, uncomplicated Prescriptions: No Action albuterol sulfate 90 mcg/actuation HFA aerosol inhaler 2 puff inhalation Q4-6H PRN (Reason: Wheezing) RF: 0 melatonin 5 mg tablet 1 tab PO BEDTIME PRN (Reason: Insomnia) RF: 0 Eliquis 5 mg tablet 1 tab PO BID RF: 0 docusate sodium [DOK] 100 mg capsule 1 cap PO BID RF: 0 Combivent Respimat 20-100 mcg/actuation mist 1 puff inhalation QID RF: 0
[2020-12-31 14:47] LABS: MANUAL DIFF FLAG NO
[2020-12-31 14:49] LABS: Basophils Absolute Auto 0.1 X10*3/uL (0.0-0.2); Eosinophils Percent Auto 0.2 % (0-4); Hematocrit 34.6 % (42.0-52.0); Hemoglobin 11.5 g/dl (14.0-18.0); Imm Gran Abs Auto 0.02 X10*3/uL (0.00-0.03); Imm Gran Pct Auto 0.3 % (0.0-0.4); Lymphocytes Absolute Auto 0.8 X10*3/uL (1.2-4.9); Lymphocytes Percent Auto 12.9 % (20-40); Mean Corpuscular HGB Conc 33.2 g/dl (31.0-36.0); Mean Corpuscular Hemoglobin 30.7 pg (27.0-33.0); Mean Corpuscular Volume 92.3 fL (80.0-98.0); Mean Platelet Volume 9.5 fL (9.4-12.4); Monocytes Absolute Auto 0.5 X10*3/uL (0.1-1.2); Monocytes Percent Auto 8.4 % (2-11); Neutrophils Absolute Auto 4.81 x10*3/uL (2.0-8.3); Neutrophils Percent Auto 77.2 % (45-73); Platelet Count 141 X10*3/uL (160-400); Red Blood Count 3.75 X10*6/uL (4.60-5.80); Red Cell Distribution Width 16.4 % (11.0-16.0); White Blood Count 6.2 X10*3/uL (4.8-10.8)
[2020-12-31] MEDS: LORazepam 2 MG/ML VIAL 1 MG IVPUSH (14:52)
[2020-12-31] MEDS: 0.9 % Sodium Chloride 1,000 ML 999 ML IVCONT (14:53)
[2020-12-31] MEDS: Magnesium Sulfate/H2O 2 GM/50 ML PIGGYBACK IV (14:54)
[2020-12-31] MEDS: 0.9 % Sodium Chloride 500 ML IV (14:54)
[2020-12-31 15:00] LABS: Lactic Acid 4.2 mmol/L (0.5-2.0)
[2020-12-31 15:03] LABS: Ethanol 12 mg/dL
[2020-12-31 15:09] LABS: COVID-19 Test Negative (Negative)
--- NOTE | 2020-12-31 15:10 | PHA.MEDREC ---
Pharmacy Consult ? Medication Reconciliation Pharmacy has completed the medication reconciliation. Patient report he only takes Eliqius BID. Patient reports he ran out of his two inhalers. Silvia Martins, PharmD
[2020-12-31 15:15] VITALS: BP 121/62; PULSE 91; RESP 16; TEMP 36.6; O2SAT 93
[2020-12-31 15:18] LABS: Alanine Aminotransferase 22 U/L (0-40); Alkaline Phosphatase 153 U/L (39-117); Anion Gap 18 (12-20); Aspartate Amino Transferase 51 U/L (5-37); Bilirubin Direct 0.7 mg/dL (0.0-0.5); Bilirubin Total 1.4 mg/dL (0.0-1.0); Blood Urea Nitrogen 8 mg/dL (9-16); Calcium 8.3 mg/dL (8.4-10.2); Carbon Dioxide 23 mmol/L (22-29); Chloride 102 mmol/L (96-108); Creatinine Clr Calc Pharmacy 95.3; Estimated Glomerular Filt Rate > 60; Glucose Random 98 mg/dL (60-115); Lipase 29 U/L (8-78); Magnesium 1.4 mg/dL (1.6-2.6); Potassium 4.2 mmol/L (3.3-5.1); Sodium 139 mmol/L (135-145); Total Protein 7.4 g/dL (6.5-8.0)
[2020-12-31] MEDS: Thiamine HCL 100 MG in 0.9 % Sodium Chloride 100 ML 202 MG IV (15:57)
[2020-12-31] MEDS: Folic Acid 1 MG in 0.9 % Sodium Chloride 50 ML 100.4 MG IV (15:57)
[2020-12-31 16:21] VITALS: BP 128/81; PULSE 101; RESP 18; O2SAT 98
[2020-12-31 16:45] LABS: Reflex Lactate? Lactic Acid Added
[2020-12-31 17:33] LABS: ~Lactic Acid-LAB USE ONLY 1.3 mmol/L (0.5-2.0)
[2020-12-31] MEDS: LORazepam 1 MG TABLET PO (17:34)
--- NOTE | 2020-12-31 17:48 | MHC.RECOVSUP ---
? Reason for consult Recovery Support o Current location: ED12 o Identified substance use concern: Alcohol - Withdrawal - Seeking ATS (detox) - Support ? Intervention: o Community resources provided o Harm reduction discussion ? Plan: o Bed search in progress to [facility] o Follow up tomorrow o Patient to follow up with [facility] after discharge ? Additional information: Patient came to the ED looking for help to detox from Alcohol. Patient stated that he was at [facility] 2-3 weeks ago. I called [facility] and they stated that yes he could come back. I was able to give [facility] patient cell phone number and the number to the care team to be able to do an intake.
[2020-12-31 19:04] VITALS: BP 123/73; PULSE 92; RESP 17; TEMP 36.6; O2SAT 93
--- NOTE | 2020-12-31 19:34 | PC.NURSE ---
RN assumed care at 1900. Pt alert and oriented x4, calm and cooperative. Pt denies pain. Pt states I feel weak . IV intact. Vitals stable. Pt resting in stretcher at this time, will continue to monitor.
[2020-12-31] MEDS: Docusate Sodium 100 MG CAPSULE PO (20:12)
[2020-12-31] MEDS: Apixaban 5 MG TABLET PO (20:12)
[2020-12-31 20:13] LABS: Amphetamine Screen Urine Not Detected (Not Detect); Barbiturates, Urine Not Detected (Not Detect); Benzodiazepines Screen Urine POSITIVE (Not Detect); Cannabinoid Screen Urine Not Detected (Not Detect); Cocaine Screen Urine Not Detected (Not Detect); Fentanyl, urine Not Detected (Not Detect); Opiate Screen Urine Not Detected (Not Detect); Phencyclidine Screen Urine Not Detected (Not Detect)
[2020-12-31 21:58] VITALS: PULSE 117; O2SAT 97
[2020-12-31] MEDS: Albuterol Sulfate (0.083%) 2.5 MG/3 ML VIAL.NEB 5 MG INHALE (21:58)
[2020-12-31 22:25] LABS: Magnesium 1.9 mg/dL (1.6-2.6)
[2020-12-31 22:35] VITALS: RESP 17; O2SAT 98
[2021-01-01 02:18] VITALS: BP 113/66; PULSE 113; RESP 17; TEMP 36.6; O2SAT 96
[2021-01-01] MEDS: chlordiazePOXIDE HCl 5 MG CAPSULE 25 MG PO ×2 (02:43→10:21)
--- NOTE | 2021-01-01 05:58 | PC.NURSE ---
Patient slept through the night, patient was up out of room x 1, CIWA assessed at 0226 scored 9, provider notified/ordered Librium 25 mg/administered as ordered with + effect, patient's disposition is d[facility] per monomer recovery supervisor, care team will coordinate the d/c plan, behavior appropriate, gait independent with cane, will continue to monitor
--- NOTE | 2021-01-01 07:13 | PC.NURSE ---
patient appears to remain asleep upon t/w's arrival to shift patient appears in no distress at present, oob ad lenora to bathroom
[2021-01-01 07:34] VITALS: BP 117/75; PULSE 95; RESP 13; TEMP 36.8; O2SAT 96
[2021-01-01] MEDS: Apixaban 5 MG TABLET PO (09:09)
[2021-01-01] MEDS: Docusate Sodium 100 MG CAPSULE PO (09:09)
[2021-01-01] MEDS: Albuterol Sulfate 90 MCG 8 GM INHALER 2 PUFF INHALE (09:09)
--- NOTE | 2021-01-01 10:33 | MHC.RECOVSUP ---
Recovery Support note: Patient is a 60 year old Irish speaking male who presented to [facility] ED due to weakness related to etoh withdrawal. Patient expressed interest in going to [facility] for detox. Updated patient info sent to [facility]. Patient completed intake and has been accepted for admission. [facility] is requesting patient come to the facility via ambulance. Discussed case with patient's RN and CM.
== END 2021-01-01 11:20 | disposition other institution (70) ==
PROVIDERS: Emergency Medicine; Emergency Provider Emergency Medicine; PCP Internal Medicine
DX: F10.239 Alcohol dependence with withdrawal, unspecified (principal); E87.2 Acidosis; E83.42 Hypomagnesemia; Z20.822 Contact with and (suspected) exposure to COVID-19; Z79.899 Other long term (current) drug therapy
CPT/HCPCS: 36415; 71045; 80048; 80076; 80307; 82077; 83605; 83690; 83735; 85025; 87635; 93005; 96365; 96366; 96375; 99284; 99291; J2060; J3411; J3475

== ENCOUNTER 2021-01-12 19:12 | Emergency (ER) | payer OTHER, SELFPAY ==
--- NOTE | ~2021-01-12 | CT_ITS ---
EXAMINATION: CT HEAD WITHOUT CONTRAST CLINICAL INFORMATION: History of traumatic brain injury. Fall. EtOH. COMPARISON: None. TECHNIQUE: Contiguous axial imaging was performed from the skull base to vertex without intravenous contrast. This CT examination was performed using dose optimization techniques as appropriate, variously including the following: * Automated exposure control * Adjustment of mA and/or kV according to patient size (this includes techniques or standardized protocols for targeted exams where dose is matched to indication/reason for exam; i.e. extremities or head) Use of iterative reconstruction technique DLP: 719 mGy-cm. FINDINGS: Right frontal craniectomy. Underlying encephalomalacia involving the right frontal lobe. There is no evidence of acute intracranial hemorrhage or territorial infarction. No abnormal mass effect or midline shift is seen. James to white matter differentiation is well preserved. No extra-axial fluid collections are identified. No hydrocephalus. Proportional prominence of the ventricles and sulcal spaces is consistent with mild volume loss. Patchy periventricular and deep white matter hypoattenuation is consistent with mild small vessel ischemic changes. No acute osseous or soft tissue abnormality. The mastoid air cells and visualized portions of the paranasal sinuses are well aerated. CT/CT head/brain wo con IMPRESSION: No acute intracranial pathology. Chronic changes of right frontal craniectomy with encephalomalacia underlying.
--- NOTE | ~2021-01-12 | XR_ITS ---
EXAMINATION: XR HIP, LEFT CLINICAL INFORMATION: Fall COMPARISON: None TECHNIQUE: Frontal view of the pelvis Two views of the left hip. FINDINGS: The SI joints, hips and symphysis are normal in alignment. There is some nonspecific sclerosis associated with the upper aspect of the left SI joint. No pelvic fracture demonstrated. The left hip is appropriately aligned. There is no proximal femoral fracture demonstrated. The femoral head contour appears smooth. No convincing evidence of a large pelvic hematoma. There is some degenerative change in the visualized spine XR/XR hip LT w PEL1V IMPRESSION: No acute fracture or subluxation demonstrated
--- NOTE | 2021-01-12 19:14 | ED.ALCOHOL ---
HPI - Alcohol General Chief Complaint: ETOH/Substance Use Stated Complaint: etoh Time Seen by Provider: 01/12/21 19:14 Source: patient and EMS Mode of arrival: EMS Limitations: no limitations History of Present Illness MD complaint: desires rehab Last drink: Days (ago) (yesterday ) Chronic alcohol use: Yes Previous visits for alcohol intoxication: Yes Recent trauma: Yes (states he fell 3 days ago and injured his left hip) Associated symptoms: denies other symptoms Treatments prior to arrival: none Related Data Home Medications Medication Instructions Recorded Confirmed albuterol sulfate 90 mcg/actuation 2 puff INHALATION Q4-6H PRN 09/11/20 12/31/20 aerosol inhaler apixaban 5 mg tablet (Eliquis) 1 tab PO BID 09/11/20 12/31/20 melatonin 5 mg tablet 1 tab PO BEDTIME PRN 09/11/20 12/31/20 docusate sodium 100 mg capsule 1 cap PO BID 12/31/20 12/31/20 (DOK) ipratropium 20 mcg-albuterol 100 1 puff INHALATION QID 12/31/20 12/31/20 mcg/actuation mist for inhalation (Combivent Respimat) Allergies Allergy/AdvReac Type Severity Reaction Status Date / Time Peanut Butter Allergy Facial Verified 12/31/20 19:08 Swelling raspberry Allergy Facial Verified 12/31/20 19:08 Swelling Review of Systems Review of Systems: Constitutional : No Fever, No Chills ENT/Mouth : No sore throat, No Rhinorrhea Eyes: No Eye Pain, No Swelling, No Redness Cardiovascular : No Chest Pain, No SOB Respiratory : No Cough, No Sputum, No Wheezing Gastrointestinal : No Nausea, No Vomiting, No Diarrhea Genitourinary : No Dysuria, No Urinary Frequency, No Hematuria, Musculoskeletal : No joint pain, No Myalgias Skin: no rash, no lesions Neuro : No Weakness, No Numbness, No Dizziness, No Headache Psych : pos Anxiety/Panic, No Depression Heme/Lymph: No Bruising, No Bleeding,No Lymphadenopathy Endocrine : No Polyuria, No Polydipsia All other systems reviewed and are negative PMFSH Past Medical History Attestation statement: The following information was validated with the patient. Medical History Afib Alcohol abuse Asthma COPD (chronic obstructive pulmonary disease) Neuropathy Social History Social History Alcohol intake: current Alcohol intake frequency: 3 or more drinks per day Alcohol type: beer, wine and hard liquor Patient Tobacco Use Status: Current everyday Tobacco user Substance Use Type: Marijuana Advance Directives: No Advance Directives Information Provided: No Physical Exam Vital Signs: Vital Signs: Last Vital Signs Temp 97.5 F 01/12/21 19:35 Pulse 84 01/12/21 19:35 Resp 12 01/12/21 19:35 BP 116/65 01/12/21 19:35 Pulse Ox 98 01/12/21 19:35 Body Mass Index 21.2 Appearance: Alert. Oriented X3. No acute distress. no tremor noted Eyes: Pupils equal, round and reactive to light. ENT: Pharynx normal. Neck: Normal inspection. Neck supple. CVS: Normal heart rate and rhythm. Pulses normal. Respiratory: No respiratory distress. Breath sounds normal. Abdomen: Soft and non-tender. Skin: Skin warm and dry. Normal skin color. Normal skin turgor. Extremities: No lower extremity edema. No calf ttp Neuro: Oriented X 3. No motor deficit. No sensory deficit. Course Course Course Narrative: there are no detox beds available, can be DC once more sober and has sober adult ride home, will be given detox list Patient placed in physician observation at 1044pm. The indication for observation is that the patient needs more time to clinically sober up and have a safe discharge home. At this time the patient is well developed well nourished, lungs clear, CV RRR, abd nontender, neuro is intact. CT head pending. CT head negative MDM - Alcohol MDM Narrative Medical decision making narrative: 60 yo male with hx of afib on eliquis, COPD, ETOH abuse here with c/o requesting detox for ETOH just left [facility]. At this time will obtain labs, EKG, medical clearance for possible detox. PO ativan/thiamine. Dispo per CARE team involvement though he just completed detox. Lab Data Result diagrams: 01/12/21 20:44 01/12/21 20:44 Labs: Lab Results 01/12/21 01/12/21 01/12/21 Range/Units 20:44 20:44 20:44 WBC 5.2 (4.8-10.8) X10*3/uL RBC 3.74 L (4.60-5.80) X10*6/uL Hgb 11.4 L (14.0-18.0) g/dl Hct 35.4 L (42.0-52.0) % MCV 94.7 (80.0-98.0) fL MCH 30.5 (27.0-33.0) pg MCHC 32.2 (31.0-36.0) g/dl RDW 16.4 H (11.0-16.0) % Plt Count 270 D (160-400) X10*3/uL MPV 8.7 L (9.4-12.4) fL Immature Gran % (Auto) 0.2 (0.0-0.4) % Neut % (Auto) 38.2 L (45-73) % Lymph % (Auto) 47.9 H (20-40) % [place] % (Auto) 8.6 (2-11) % Eos % (Auto) 3.2 (0-4) % Baso % (Auto) 1.9 (0-2) % Lymph # (Auto) 2.5 (1.2-4.9) X10*3/uL [place] # (Auto) 0.5 (0.1-1.2) X10*3/uL Eos # (Auto) 0.2 (0.0-0.4) X10*3/uL Baso # (Auto) 0.1 (0.0-0.2) X10*3/uL Abs Immat Gran (auto) 0.01 (0.00-0.03) X10*3/uL Absolute Neuts (auto) 2.0 (2.0-8.3) x10*3/uL Absolute Nucleated RBC 0.000 (0.0-0.012) X10*3/uL Nucleated RBC % (auto) 0.0 (0.0-0.2) /100WBC Sodium 145 (135-145) mmol/L Potassium 4.5 (3.3-5.1) mmol/L Chloride 108 (96-108) mmol/L Carbon Dioxide 30 H (22-29) mmol/L Anion Gap 12 (12-20) BUN 7 L (9-16) mg/dL Creatinine 0.82 (0.5-1.4) mg/dL Estim Creat Clear Calc 88.5 Estimated GFR > 60 Random Glucose 83 (60-115) mg/dL Calcium 8.8 D (8.4-10.2) mg/dL Magnesium 2.1 (1.6-2.6) mg/dL Total Bilirubin 0.4 (0.0-1.0) mg/dL Direct Bilirubin 0.2 (0.0-0.5) mg/dL AST 48 H (5-37) U/L ALT 55 H (0-40) U/L Alkaline Phosphatase 127 H (39-117) U/L Total Protein 7.1 (6.5-8.0) g/dL Albumin 3.8 (3.5-5.0) g/dL Ethyl Alcohol mg/dL COVID-19 (NELY) Negative (Negative) COVID-19 Clin Com See Note 01/12/21 Range/Units 20:44 WBC (4.8-10.8) X10*3/uL RBC (4.60-5.80) X10*6/uL Hgb (14.0-18.0) g/dl Hct (42.0-52.0) % MCV (80.0-98.0) fL MCH (27.0-33.0) pg MCHC (31.0-36.0) g/dl RDW (11.0-16.0) % Plt Count (160-400) X10*3/uL MPV (9.4-12.4) fL Immature Gran % (Auto) (0.0-0.4) % Neut % (Auto) (45-73) % Lymph % (Auto) (20-40) % [place] % (Auto) (2-11) % Eos % (Auto) (0-4) % Baso % (Auto) (0-2) % Lymph # (Auto) (1.2-4.9) X10*3/uL [place] # (Auto) (0.1-1.2) X10*3/uL Eos # (Auto) (0.0-0.4) X10*3/uL Baso # (Auto) (0.0-0.2) X10*3/uL Abs Immat Gran (auto) (0.00-0.03) X10*3/uL Absolute Neuts (auto) (2.0-8.3) x10*3/uL Absolute Nucleated RBC (0.0-0.012) X10*3/uL Nucleated RBC % (auto) (0.0-0.2) /100WBC Sodium (135-145) mmol/L Potassium (3.3-5.1) mmol/L Chloride (96-108) mmol/L Carbon Dioxide (22-29) mmol/L Anion Gap (12-20) BUN (9-16) mg/dL Creatinine (0.5-1.4) mg/dL Estim Creat Clear Calc Estimated GFR Random Glucose (60-115) mg/dL Calcium (8.4-10.2) mg/dL Magnesium (1.6-2.6) mg/dL Total Bilirubin (0.0-1.0) mg/dL Direct Bilirubin (0.0-0.5) mg/dL AST (5-37) U/L ALT (0-40) U/L Alkaline Phosphatase (39-117) U/L Total Protein (6.5-8.0) g/dL Albumin (3.5-5.0) g/dL Ethyl Alcohol 333 H* mg/dL COVID-19 (NELY) (Negative) COVID-19 Clin Com ECG Data ECG #1: Attestation: I personally reviewed and interpreted this ECG as follows: ECG interpretation date: 01/12/21 ECG interpretation time: 20:02 Interpretation: Rate: 85 Rhythm: NSR [place]: left Normal P waves. Normal CORINNE. RBBB ST T wave : no ARTHUR, nonspecific qTC: normal prior studies: no acute ischemia The study has been interpreted contemporaneously by me. . Discharge Plan Discharge Clinical Impression: Alcoholic intoxication Qualifiers: Complication of substance-induced condition: uncomplicated Qualified Code(s): F10.920 - Alcohol use, unspecified with intoxication, uncomplicated Instructions: Alcohol Intoxication (ED), Abuse of Alcohol (ED) Additional Instructions: return to ED for any worsening symptoms or concerns please call detox centers from home Prescriptions: No Action albuterol sulfate 90 mcg/actuation HFA aerosol inhaler 2 puff inhalation Q4-6H PRN (Reason: Wheezing) RF: 0 melatonin 5 mg tablet 1 tab PO BEDTIME PRN (Reason: Insomnia) RF: 0 Eliquis 5 mg tablet 1 tab PO BID RF: 0 docusate sodium [DOK] 100 mg capsule 1 cap PO BID RF: 0 Combivent Respimat 20-100 mcg/actuation mist 1 puff inhalation QID RF: 0
--- NOTE | 2021-01-12 19:28 | ECG_ITS ---
Test Reason : ETOH Blood Pressure : / mmHG Vent. Rate : 085 BPM Atrial Rate : 085 BPM P-R Int : 136 ms QRS Dur : 134 ms QT Int : 406 ms P-R-T Axes : 068 -76 051 degrees QTc Int : 483 ms Normal sinus rhythm Right bundle branch block Left anterior fascicular block Bifascicular block Abnormal ECG When compared with ECG of 31-DEC-2020 14:49, No significant change was found Heart rate has decreased Referred By: Domitila Jauregui Electronically Signed By:ROJELIO PRAKASH MD
[2021-01-12 19:35] VITALS: BP 116/65; BP 142/70; PULSE 84; RESP 12; TEMP 36.4; O2SAT 96; O2SAT 98; BMI 21.2
--- NOTE | 2021-01-12 20:03 | MHC.RECOVSUP ---
? Reason for consult Recovery Support o Current location: ED10 o Identified substance use concern: Alcohol - Seeking ATS (detox) - Support ? Intervention: o Community resources provided o Harm reduction discussion ? Plan: o Bed search in progress to o Follow up tomorrow o Patient to follow up with HF after discharge ? Additional information: Patient stated that he wants help and wants to go to detox again.. At the moment there is no beds anywhere.. Patient is waiting for lab work to come back.. The care team was made aware of patient status.
[2021-01-12] MEDS: Thiamine HCL 100 MG TABLET PO (20:32)
[2021-01-12] MEDS: LORazepam 1 MG TABLET PO (20:32)
[2021-01-12 20:49] LABS: MANUAL DIFF FLAG NO
[2021-01-12 20:50] LABS: Basophils Absolute Auto 0.1 X10*3/uL (0.0-0.2); Basophils Percent Auto 1.9 % (0-2); Eosinophils Absolute Auto 0.2 X10*3/uL (0.0-0.4); Eosinophils Percent Auto 3.2 % (0-4); Hematocrit 35.4 % (42.0-52.0); Hemoglobin 11.4 g/dl (14.0-18.0); Imm Gran Abs Auto 0.01 X10*3/uL (0.00-0.03); Imm Gran Pct Auto 0.2 % (0.0-0.4); Lymphocytes Absolute Auto 2.5 X10*3/uL (1.2-4.9); Lymphocytes Percent Auto 47.9 % (20-40); Mean Corpuscular HGB Conc 32.2 g/dl (31.0-36.0); Mean Corpuscular Hemoglobin 30.5 pg (27.0-33.0); Mean Corpuscular Volume 94.7 fL (80.0-98.0); Mean Platelet Volume 8.7 fL (9.4-12.4); Monocytes Absolute Auto 0.5 X10*3/uL (0.1-1.2); Monocytes Percent Auto 8.6 % (2-11); Neutrophils Percent Auto 38.2 % (45-73); Platelet Count 270 X10*3/uL (160-400); Red Blood Count 3.74 X10*6/uL (4.60-5.80); Red Cell Distribution Width 16.4 % (11.0-16.0); White Blood Count 5.2 X10*3/uL (4.8-10.8)
--- NOTE | 2021-01-12 21:01 | PC.NURSE ---
PT GIVEN CEREAL, PER HIS REQUEST. PT REQUESTED THAT THE LIGHT BE TURNED OFF, SO HE CAN SLEEP.
[2021-01-12 21:07] LABS: COVID-19 Test Negative (Negative)
[2021-01-12 21:11] LABS: Ethanol 333 mg/dL
[2021-01-12 21:15] LABS: Alanine Aminotransferase 55 U/L (0-40); Albumin Level 3.8 g/dL (3.5-5.0); Alkaline Phosphatase 127 U/L (39-117); Anion Gap 12 (12-20); Aspartate Amino Transferase 48 U/L (5-37); Bilirubin Direct 0.2 mg/dL (0.0-0.5); Bilirubin Total 0.4 mg/dL (0.0-1.0); Blood Urea Nitrogen 7 mg/dL (9-16); Calcium 8.8 mg/dL (8.4-10.2); Carbon Dioxide 30 mmol/L (22-29); Chloride 108 mmol/L (96-108); Creatinine Clr Calc Pharmacy 88.5; Estimated Glomerular Filt Rate > 60; Glucose Random 83 mg/dL (60-115); Magnesium 2.1 mg/dL (1.6-2.6); Potassium 4.5 mmol/L (3.3-5.1); Sodium 145 mmol/L (135-145); Total Protein 7.1 g/dL (6.5-8.0)
--- NOTE | 2021-01-12 22:36 | PC.NURSE ---
PT HAS STEADY GAIT TO BATHROOM. PT HAS ASKED ME REPEATEDLY FOR SOMETHING TO EAT, HOT FOOD. PT HAS BEEN GIVEN CEREAL, REQUESTED MORE. PT FORGOT ABOUT OUR CONVERSATION. SAME CONVERSATION OVER AND OVER, ASKED PT IF HE HAS MEMORY PROBLEMS, HE REPLIED YES.
[2021-01-13 00:43] VITALS: BP 89/61; PULSE 107; RESP 18; O2SAT 94
[2021-01-13 00:47] VITALS: BP 96/66
--- NOTE | 2021-01-13 03:57 | PC.NURSE ---
PT SLEEPING, HE NORMALLY TAKES HIS ELIQUIS BID MORNING AND EVENING. WILL ADMINISTER HIS P.O. MEDS AT 6AM, TO MATCH HIS HOME SCHEDULE.
[2021-01-13 05:45] VITALS: PULSE 98; RESP 18; O2SAT 95
[2021-01-13] MEDS: Apixaban 5 MG TABLET PO (06:17)
[2021-01-13] MEDS: Albuterol/Iprat 2.5/0.5MG 3 ML AMPUL.NEB INHALE (08:07)
[2021-01-13 08:09] VITALS: PULSE 98; O2SAT 95
--- NOTE | 2021-01-13 08:18 | MHC.RECOVSUP ---
Recovery Support note: Patient is a 60 year old Swedish speaking male who presented to [facility] ED on 01/12 intoxicated seeking detox. Patient is known to this program writer from previous consultations. assistant cross country coach met with patient and attempted to secure treatment bed however no beds were available. This program writer met with patient on 01/13 to discuss substance use and recovery supports. Patient reports he discharged from [facility] sometime last week and that he started drinking immediately after discharge. This program writer explained to patient that [facility] will not readmit him within one week of discharge and patient acknowledged. Discussed [facility] and provided patient with information. Encouraged patient to go to [place] [facility] to attend meetings and for support and to receive assistance on securing an ATS bed. Patient acknowledged. Patient provided with contact information for this program writer in the event that he has questions after discharge.
[2021-01-13 08:38] VITALS: BP 121/64; PULSE 100; RESP 19; O2SAT 98
--- NOTE | 2021-01-13 08:38 | PC.NURSE ---
skin wpd, alert, speech clear, calling for a ride, drank coffee
[2021-01-13 09:55] LABS: Folate 4.9 ng/mL (> or = 4.0)
== END 2021-01-13 08:45 | disposition home or self-care (01) ==
PROVIDERS: Emergency Provider Emergency Medicine; PCP Internal Medicine
DX: F10.129 Alcohol abuse with intoxication, unspecified (principal); Y90.8 Blood alcohol level of 240 mg/100 ml or more; I48.91 Unspecified atrial fibrillation; J44.9 Chronic obstructive pulmonary disease, unspecified; Z79.01 Long term (current) use of anticoagulants; Z20.822 Contact with and (suspected) exposure to COVID-19; Z91.81 History of falling
CPT/HCPCS: 36415; 70450; 73502; 80048; 80076; 82077; 82746; 83735; 85025; 87635; 93005; 94640; 99284

== ENCOUNTER 2021-01-13 18:58 | Emergency (ER) | payer OTHER, SELFPAY ==
--- NOTE | 2021-01-13 19:07 | ED.ALCOHOL ---
HPI - Alcohol General Chief Complaint: ETOH/Substance Use Stated Complaint: etoh Time Seen by Provider: 01/13/21 19:07 Source: patient, EMS and old records reviewed Mode of arrival: EMS Limitations: no limitations History of Present Illness MD complaint: desires rehab Last drink: Hours (ago) Chronic alcohol use: Yes Previous visits for alcohol intoxication: Yes Recent trauma: No Associated symptoms: denies other symptoms Treatments prior to arrival: none Related Data Home Medications Medication Instructions Recorded Confirmed albuterol sulfate 90 mcg/actuation 2 puff INHALATION Q4-6H PRN 09/11/20 01/13/21 aerosol inhaler apixaban 5 mg tablet (Eliquis) 1 tab PO BID 09/11/20 01/13/21 melatonin 5 mg tablet 1 tab PO BEDTIME PRN 09/11/20 01/13/21 docusate sodium 100 mg capsule 1 cap PO BID 12/31/20 01/13/21 (DOK) ipratropium 20 mcg-albuterol 100 1 puff INHALATION QID 12/31/20 01/13/21 mcg/actuation mist for inhalation (Combivent Respimat) acamprosate 333 mg tablet,delayed 2 tab PO TID 01/13/21 release cholecalciferol (vitamin D3) 50 1 tab PO DAILY 01/13/21 mcg (2,000 unit) tablet Allergies Allergy/AdvReac Type Severity Reaction Status Date / Time Peanut Butter Allergy Facial Verified 01/13/21 00:49 Swelling raspberry Allergy Facial Verified 01/13/21 00:49 Swelling Review of Systems Review of Systems: Constitutional : No Fever, No Chills ENT/Mouth : No sore throat, No Rhinorrhea Eyes: No Eye Pain, No Swelling, No Redness Cardiovascular : No Chest Pain, No SOB Respiratory : No Cough, No Sputum, No Wheezing Gastrointestinal : No Nausea, No Vomiting, No Diarrhea Genitourinary : No Dysuria, No Urinary Frequency, No Hematuria, Musculoskeletal : No joint pain, No Myalgias, No Joint Swelling Skin : No Skin Lesions, No rash Neuro : No Weakness, No Numbness, No Dizziness, No Headache Psych : No Anxiety/Panic, No Depression, no SI/HI All other systems reviewed and are negative PMFSH Past Medical History Attestation statement: The following information was validated with the patient. Medical History Afib Alcohol abuse Asthma COPD (chronic obstructive pulmonary disease) Neuropathy Social History Social History Alcohol intake: current Alcohol intake frequency: former alcohol drinker Alcohol type: beer, wine and hard liquor Patient Tobacco Use Status: Current everyday Tobacco user Use of substances other than those prescribed or required for medical reasons: No Substance Use Type: Marijuana Advance Directives: No Advance Directives Information Provided: Yes Physical Exam Vital Signs: Vital Signs: Last Vital Signs Temp 96.9 F 01/13/21 19:14 Pulse 88 01/13/21 19:14 Resp 15 01/13/21 19:14 BP 123/63 01/13/21 19:14 Pulse Ox 96 01/13/21 19:14 Body Mass Index 21.4 Appearance: Alert. Oriented X3. No acute distress. Eyes: Pupils equal, round and reactive to light. ENT: Pharynx normal. Neck: Normal inspection. Neck supple. CVS: Normal heart rate and rhythm. Pulses normal. Respiratory: No respiratory distress. Breath sounds normal. Abdomen: Soft and non-tender. Skin: Skin warm and dry. Normal skin color. Normal skin turgor. Extremities: No lower extremity edema. No calf ttp Neuro: Oriented X 3. No motor deficit. No sensory deficit. Course Course Course Narrative: has detox bed - stable for DC MDM - Alcohol MDM Narrative Medical decision making narrative: 60 yo male with afib, COPD, heavy ETOH abuse here with requests for detox had normal labs yesterday no trauma no SI - will offer recovery coaches. Did not try to call from home. Discharge Plan Discharge Clinical Impression: Alcohol abuse Patient Disposition: Home, Self-Care Instructions: Abuse of Alcohol (ED) Additional Instructions: medically cleared for detox Prescriptions: No Action albuterol sulfate 90 mcg/actuation HFA aerosol inhaler 2 puff inhalation Q4-6H PRN (Reason: Wheezing) RF: 0 melatonin 5 mg tablet 1 tab PO BEDTIME PRN (Reason: Insomnia) RF: 0 Eliquis 5 mg tablet 1 tab PO BID RF: 0 acamprosate 333 mg tablet,delayed release (DR/EC) 2 tab PO TID RF: 0 cholecalciferol (vitamin D3) 50 mcg (2,000 unit) tablet 1 tab PO DAILY RF: 0 docusate sodium [DOK] 100 mg capsule 1 cap PO BID RF: 0 Combivent Respimat 20-100 mcg/actuation mist 1 puff inhalation QID RF: 0
[2021-01-13 19:14] VITALS: BP 122/59; BP 123/63; PULSE 88; PULSE 98; RESP 15; TEMP 36.1; O2SAT 96; BMI 21.4
--- NOTE | 2021-01-13 19:36 | MHC.RECOVSUP ---
? Reason for consult:Detox o?? Current location ED19-H? o?? Identified substance use concerns Alcohol ?? Seeking ATS (detox) ?? Support ? Intervention: o?? ATS bed search started/completed/in process o?? Community resources provided o?? Harm reduction discussion ? Plan: o?? Bed search in progress to o?? Follow up tomorrow? o?? Patient awaiting crisis evaluation o?? Patient to follow up with [facility] after discharge ? Additional information: ?Met with Pt. Pt. states that he wants to go detox.Bed search in progress.Spoke to care team about Pt.They will follow up with him.
--- NOTE | 2021-01-13 21:22 | PC.NURSE ---
PT found resting in bed, rapid respirations 24-30/min, and skin diaphoretic. PT woken up and presents with no complaints of SOB. BP remains hypotensive with fluids completely infused. Provider notified of low BP.
--- NOTE | 2021-01-13 21:25 | PC.NURSE ---
Pt. walked out prior to receiving discharge instructions. Pt. prior was swearing because no one had provided him a phone to call his son
== END 2021-01-13 21:29 | disposition home or self-care (01) ==
PROVIDERS: Emergency Provider Emergency Medicine
DX: F10.10 Alcohol abuse, uncomplicated (principal); I48.91 Unspecified atrial fibrillation; J44.9 Chronic obstructive pulmonary disease, unspecified; Z79.01 Long term (current) use of anticoagulants; Z79.899 Other long term (current) drug therapy
CPT/HCPCS: 99284

== ENCOUNTER 2021-01-15 23:34 | Emergency (ER) | payer OTHER, SELFPAY ==
--- NOTE | ~2021-01-15 | XR_ITS ---
EXAMINATION: XR HIP, LEFT CLINICAL INFORMATION: Left hip pain after fall COMPARISON: Left hip 01/12/2021 TECHNIQUE: Two views of the left hip. FINDINGS: Compared to the study of 4 days ago, there's been no interval change. No hip fracture is seen. No dislocation is present. Mild degenerative changes noted in the spine. Calcified retroperitoneal lymph node may be present. An IVC filter is partially visualized. XR/XR hip LT w PEL1V IMPRESSION: No evidence of a hip fracture.
[2021-01-15 23:36] VITALS: BP 109/65; BP 110/83; PULSE 100; PULSE 104; RESP 18; TEMP 36.5; O2SAT 96; O2SAT 97; BMI 21.4
[2021-01-15 23:48] VITALS: PULSE 100
--- NOTE | 2021-01-15 23:52 | ED_ITS ---
HPI - Alcohol General Chief Complaint: ETOH/Substance Use Stated Complaint: etoh Time Seen by Provider: 01/15/21 23:43 Source: patient and EMS Mode of arrival: EMS Limitations: no limitations History of Present Illness HPI narrative: Patient comes to emergency room complaining of alcohol intoxication. Patient states he drinks 2 pt of alcohol every day. Patient was supposed to go to [place], patient left because he did not like it. Patient now requesting to go to [place]. Patient states he fell several days ago, complaining of left-sided hip pain. Patient denies hitting his head, no loss of consciousness, denies headache, no chest pain, no abdominal pain. When asked why patient called 911 today, patient states that he was drunk. This is the 3rd time this week that the patient is being evaluated for same reason. Denies suicidal homicidal ideation Related Data Home Medications Medication Instructions Recorded Confirmed albuterol sulfate 90 mcg/actuation 2 puff INHALATION Q4-6H PRN 09/11/20 01/13/21 aerosol inhaler apixaban 5 mg tablet (Eliquis) 1 tab PO BID 09/11/20 01/13/21 melatonin 5 mg tablet 1 tab PO BEDTIME PRN 09/11/20 01/13/21 docusate sodium 100 mg capsule 1 cap PO BID 12/31/20 01/13/21 (DOK) ipratropium 20 mcg-albuterol 100 1 puff INHALATION QID 12/31/20 01/13/21 mcg/actuation mist for inhalation (Combivent Respimat) acamprosate 333 mg tablet,delayed 2 tab PO TID 01/13/21 release cholecalciferol (vitamin D3) 50 1 tab PO DAILY 01/13/21 mcg (2,000 unit) tablet Allergies Allergy/AdvReac Type Severity Reaction Status Date / Time Peanut Butter Allergy Facial Verified 01/13/21 00:49 Swelling raspberry Allergy Facial Verified 01/13/21 00:49 Swelling Review of Systems Review of Systems: Constitutional : No Weight loss, No Fever, No Chills, No Night Sweats, No Fatigue, No Malaise ENT/Mouth : No Hearing loss, No Ear Pain, No Nasal Congestion, No Sinus Pain, No Hoarseness, No sore throat, No Rhinorrhea, No Swallowing Difficulty Eyes: No Eye Pain, No Swelling, No Redness, No Foreign Body, No Discharge, No Vision Changes Cardiovascular : No Chest Pain, No SOB, No Dyspnea on Exertion, No Orthopnea, No Edema, No Palpitations Respiratory : No Cough, No Sputum, No Wheezing, No Smoke Exposure, No Dyspnea Gastrointestinal : No Nausea, No Vomiting, No Diarrhea, No Constipation, No abdominal Pain, No Hematochezia, No Melena Genitourinary : no irregular bleeding, No Dysuria, No Urinary Frequency, No Hematuria, No Urinary Incontinence, No Urgency, No Flank Pain, No Urinary Flow Changes, No Hesitancy Musculoskeletal : Complaining of left-sided hip pain No Myalgias, No Joint Swelling Skin : No Skin Lesions, No rash Neuro : No Weakness, No Numbness, No Paresthesias, No Loss of Consciousness, No Dizziness, No Headache Psych : No Anxiety/Panic, No Depression, No SI/HI/AH/VH, admits to alcohol abuse daily, 2 points Heme/Lymph: No Bruising, No Bleeding,No Lymphadenopathy Endocrine : No Polyuria, No Polydipsia, No Temperature Intolerance [facility] Past Medical History Medical History Afib Alcohol abuse Asthma COPD (chronic obstructive pulmonary disease) Neuropathy Social History Social History Alcohol intake: current Alcohol intake frequency: 3 or more drinks per day Alcohol type: beer, wine and hard liquor Patient Tobacco Use Status: Current everyday Tobacco user Use of substances other than those prescribed or required for medical reasons: Yes Substance Use Type: Marijuana Advance Directives: No Physical Exam Vital Signs: Vital Signs: Last Vital Signs Temp 97.7 F 01/15/21 23:36 Pulse 100 01/15/21 23:36 Resp 18 01/15/21 23:36 BP 109/65 01/15/21 23:36 Pulse Ox 96 01/15/21 23:36 Body Mass Index 21.4 Const: Other: Appearance: Alert. Oriented X3. No acute distress. Eyes: Pupils equal, round and reactive to light. ENT: Pharynx normal. Neck: Normal inspection. Neck supple. No lymph nodes noted. No crepitus CVS: Normal heart rate and rhythm. Pulses normal. Normal S1 and S2 Respiratory: No respiratory distress. Breath sounds normal. No Wheezing. No rales Abdomen: Soft and nontender. No rigidity. No distention. good BS x4 Skin: Skin warm and dry. Normal skin color. Normal skin turgor. Extremities: No lower extremity edema. Mild pain with walking and bearing weight over the left leg Neuro: Oriented X 3. No motor deficit. No sensory deficit. Moving all extermities. No slurred speech. Course Course Course Narrative: X-ray of the hips unremarkable. Patient's pain likely musculoskeletal. The care team evaluated the patient. Tomorrow morning the recovery team will try to find a detox bed in the morning. If no beds are available, patient may be discharged home. Patient is not suicidal or homicidal. Physician observation started at 01:[address] [facility] - Alcohol Imaging Data hip x rAY: Radiologist's impression: Compared to the study of 4 days ago, there's been no interval change. No hip fracture is seen. No dislocation is present. Mild degenerative changes noted in the spine. Calcified retroperitoneal lymph node may be present. An IVC filter is partially visualized. XR/XR hip LT w PEL1V IMPRESSION: No evidence of a hip fracture. Discharge Plan Discharge Clinical Impression: Alcohol abuse Prescriptions: No Action albuterol sulfate 90 mcg/actuation HFA aerosol inhaler 2 puff inhalation Q4-6H PRN (Reason: Wheezing) RF: 0 melatonin 5 mg tablet 1 tab PO BEDTIME PRN (Reason: Insomnia) RF: 0 Eliquis 5 mg tablet 1 tab PO BID RF: 0 acamprosate 333 mg tablet,delayed release (DR/EC) 2 tab PO TID RF: 0 cholecalciferol (vitamin D3) 50 mcg (2,000 unit) tablet 1 tab PO DAILY RF: 0 docusate sodium [DOK] 100 mg capsule 1 cap PO BID RF: 0 Combivent Respimat 20-100 mcg/actuation mist 1 puff inhalation QID RF: 0
--- NOTE | 2021-01-16 01:28 | MHC.CARE ---
Pt is seen by the CARE team seeking detox. Pt appears under the influence. He states he went to [place] and they turned him away . He shared that he was recently at [facility] three weeks ago and has been everywhere in the state . Pt reports he is disappointed in himself and reports he is embarrassed that he has had to get his 20 year old son involved. He states he had a therapy apt today however blew it off because he was intoxicated. He shares that he has many services but doesn't follow through after. pt states he is motivated for treatment and is looking for EATS. Pt denies SI. He reports he owns his own house. He reports he drinks nips all day everyday . He does not identify with any positive supports in his life. Pt is seeking detox at this time for alcohol. Pt will remain in the ED until the morning and is aware if there is no detox beds he will be sent home to try calling detoxes on his own.
[2021-01-16 06:00] VITALS: BP 101/55; PULSE 91; RESP 16; O2SAT 93
--- NOTE | 2021-01-16 07:58 | PC.NURSE ---
Assumed care of patient. Pt is awake, sitting on the edge of the bed, eating breakfast and tolerating PO intake.
--- NOTE | 2021-01-16 10:47 | PC.NURSE ---
job coach/job developer is at the bedside for evaluation and possible detox placement.
[2021-01-16 11:20] VITALS: BP 127/80; PULSE 106; RESP 15; TEMP 37.2; O2SAT 96
--- NOTE | 2021-01-16 13:26 | MHC.RECOVSUP ---
? Reason for consult:Recovery Support o Current location:discharged o Identified substance use concern:ETOH - Withdrawal - Seeking ATS (detox) - Support ? Intervention: o ATS bed search started/completed/in process ? Plan: o o Patient to follow up with HF after discharge ? Additional information:Patient seeking detox. I obtained a bed at the [facility]. in [place], [place]
== END 2021-01-16 13:22 | disposition other institution (70) ==
PROVIDERS: Emergency Provider Emergency Medicine
DX: F10.10 Alcohol abuse, uncomplicated (principal); M25.552 Pain in left hip; J44.9 Chronic obstructive pulmonary disease, unspecified; I48.91 Unspecified atrial fibrillation; Z79.01 Long term (current) use of anticoagulants; Z79.899 Other long term (current) drug therapy
CPT/HCPCS: 73502; 99285

== ENCOUNTER 2021-01-17 16:41 | Emergency (ER) | payer OTHER, SELFPAY ==
[2021-01-17 16:43] VITALS: BP 108/70; PULSE 90; O2SAT 97
[2021-01-17 16:45] VITALS: BP 92/65; PULSE 90; RESP 18; TEMP 36.1; O2SAT 98; BMI 21.2
--- NOTE | 2021-01-17 17:26 | ED.ALCOHOL ---
HPI - Alcohol General Chief Complaint: ETOH/Substance Use Stated Complaint: etoh-seeking detox Time Seen by Provider: 01/17/21 17:26 History of Present Illness HPI narrative: History of alcohol abuse in the past. Patient initially wanted detox for alcohol. Upon arrival patient did not want detox anymore. He is ambulating around and wants to leave. Patient denies any suicidal homicidal ideation. Related Data Home Medications Medication Instructions Recorded Confirmed albuterol sulfate 90 mcg/actuation 2 puff INHALATION Q4-6H PRN 09/11/20 01/16/21 aerosol inhaler apixaban 5 mg tablet (Eliquis) 1 tab PO BID 09/11/20 01/16/21 melatonin 5 mg tablet 1 tab PO BEDTIME PRN 09/11/20 01/16/21 docusate sodium 100 mg capsule 1 cap PO BID 12/31/20 01/16/21 (DOK) ipratropium 20 mcg-albuterol 100 1 puff INHALATION QID 12/31/20 01/16/21 mcg/actuation mist for inhalation (Combivent Respimat) acamprosate 333 mg tablet,delayed 2 tab PO TID 01/13/21 01/16/21 release cholecalciferol (vitamin D3) 50 1 tab PO DAILY 01/13/21 01/16/21 mcg (2,000 unit) tablet Allergies Allergy/AdvReac Type Severity Reaction Status Date / Time Peanut Butter Allergy Facial Verified 01/13/21 00:49 Swelling raspberry Allergy Facial Verified 01/13/21 00:49 Swelling Review of Systems Review of Systems: No fever no chills no chest pain or PMFSH Past Medical History Attestation statement: The following information was validated with the patient. Medical History Afib Alcohol abuse Asthma COPD (chronic obstructive pulmonary disease) Neuropathy Social History Social History Alcohol intake: current Alcohol intake frequency: 3 or more drinks per day Alcohol type: beer, wine and hard liquor Patient Tobacco Use Status: Current everyday Tobacco user Substance Use Type: Marijuana Advance Directives: No Advance Directives Information Provided: No Physical Exam Vital Signs: Vital Signs: Last Vital Signs Temp 97.0 F 11/19/21 16:45 Pulse 90 01/17/21 16:45 Resp 18 01/17/21 16:45 BP 92/65 01/17/21 16:45 Pulse Ox 98 01/17/21 16:45 Body Mass Index 21.2 Appearance: Alert. Oriented X3. No acute distress. Eyes: Pupils equal, round and reactive to light. ENT: Pharynx normal. Neck: Normal inspection. Neck supple. No lymph nodes noted. No crepitus CVS: Normal heart rate and rhythm. Pulses normal. Normal S1 and S2 Respiratory: No respiratory distress. Breath sounds normal. No Wheezing. No rales Abdomen: Soft and nontender. No rigidity. No distention. good BS x4 Skin: Skin warm and dry. Normal skin color. Normal skin turgor. Extremities: No lower extremity edema. Neurovascular intact to all extremities. No Lacerations. No Rash Neuro: Oriented X 3. No motor deficit. No sensory deficit. Moving all extermities. No slurred speech MDM - Alcohol MDM Narrative Medical decision making narrative: well-appearing No acute distress. Patient clinically sober awake alert ambulating. Will discharge patient home. Patient did not want detox at this time. Medical Records Attestation: I reviewed the patient's medical records. Lab Data Attestation: I reviewed the patient's lab results. Discharge Plan Discharge Clinical Impression: Alcoholic intoxication Patient Disposition: Home, Self-Care Instructions: Abuse of Alcohol (ED) Prescriptions: No Action albuterol sulfate 90 mcg/actuation HFA aerosol inhaler 2 puff inhalation Q4-6H PRN (Reason: Wheezing) RF: 0 melatonin 5 mg tablet 1 tab PO BEDTIME PRN (Reason: Insomnia) RF: 0 Eliquis 5 mg tablet 1 tab PO BID RF: 0 acamprosate 333 mg tablet,delayed release (DR/EC) 2 tab PO TID RF: 0 cholecalciferol (vitamin D3) 50 mcg (2,000 unit) tablet 1 tab PO DAILY RF: 0 docusate sodium [DOK] 100 mg capsule 1 cap PO BID RF: 0 Combivent Respimat 20-100 mcg/actuation mist 1 puff inhalation QID RF: 0 Referrals: Cristhian Delgado MD [Primary Care Provider] - 2 days (please go to detox)
== END 2021-01-17 18:21 | disposition home or self-care (01) ==
PROVIDERS: Emergency Provider Emergency Medicine Emergency Medical Services; PCP Internal Medicine
DX: F10.120 Alcohol abuse with intoxication, uncomplicated (principal); Y90.9 Presence of alcohol in blood, level not specified; I48.91 Unspecified atrial fibrillation; Z79.01 Long term (current) use of anticoagulants; F17.200 Nicotine dependence, unspecified, uncomplicated
CPT/HCPCS: 99283

== ENCOUNTER 2021-01-18 00:32 | Emergency (ER) | payer OTHER, SELFPAY ==
--- NOTE | 2021-01-18 00:44 | ED_ITS ---
HPI - Alcohol General Chief Complaint: ETOH/Substance Use Stated Complaint: ETOH Time Seen by Provider: 01/18/21 00:39 Source: patient Mode of arrival: EMS Limitations: no limitations History of Present Illness HPI narrative: This is a 60 years old patient well known to this emergency department, multiple ED visit he is here today intoxicated with alcohol and requesting detox. He was seen here earlier and d/c 6 h ago.He is requesting detox at this time no SI MD complaint: alcohol intoxication Last drink: Hours (ago) (2) Chronic alcohol use: Yes Previous visits for alcohol intoxication: Yes Recent trauma: No Associated symptoms: denies other symptoms Related Data Home Medications Medication Instructions Recorded Confirmed albuterol sulfate 90 mcg/actuation 2 puff INHALATION Q4-6H PRN 09/11/20 01/16/21 aerosol inhaler apixaban 5 mg tablet (Eliquis) 1 tab PO BID 09/11/20 01/16/21 melatonin 5 mg tablet 1 tab PO BEDTIME PRN 09/11/20 01/16/21 docusate sodium 100 mg capsule 1 cap PO BID 12/31/20 01/16/21 (DOK) ipratropium 20 mcg-albuterol 100 1 puff INHALATION QID 12/31/20 01/16/21 mcg/actuation mist for inhalation (Combivent Respimat) acamprosate 333 mg tablet,delayed 2 tab PO TID 01/13/21 01/16/21 release cholecalciferol (vitamin D3) 50 1 tab PO DAILY 01/13/21 01/16/21 mcg (2,000 unit) tablet Allergies Allergy/AdvReac Type Severity Reaction Status Date / Time Peanut Butter Allergy Facial Verified 01/13/21 00:49 Swelling raspberry Allergy Facial Verified 01/13/21 00:49 Swelling Review of Systems Review of Systems: Yes all other systems are reviewed and are negative Constitutional: Constitutional: Reports no additional constitutional complaints ENT: Reports system reviewed and no additional complaints, except as documented Respiratory: Respiratory: Reports no additional respiratory complaints Gastrointestinal: Gastrointestinal: Reports no additional gastrointestinal complaints Musculoskeletal: Musculoskeletal: Reports no additional musculoskeletal complaints Neurologic: Reports system reviewed and no additional complaints, except as documented [facility] Past Medical History Medical History Afib Alcohol abuse Asthma COPD (chronic obstructive pulmonary disease) Neuropathy Social History Social History Alcohol intake: current Alcohol intake frequency: 3 or more drinks per day Alcohol type: beer, wine and hard liquor Patient Tobacco Use Status: Current everyday Tobacco user Substance Use Type: Marijuana Advance Directives: No Advance Directives Information Provided: No Physical Exam Vital Signs: Vital Signs: Last Vital Signs Temp 97.7 F 01/18/21 00:50 Pulse 91 01/18/21 00:50 Resp 18 01/18/21 00:50 BP 105/59 L 01/18/21 00:50 Pulse Ox 98 01/18/21 00:50 Body Mass Index 22.8 Const: General: cooperative and anxious Nutritional Appearance: average body habitus HENMT: Head: Yes normal to inspection and Yes No palpable skull fracture present Face and sinus: Yes normal facial exam Mouth: Normal oral and palatal mucosa present Throat: Yes posterior oropharynx normal Neck: Neck: Yes normal visual inspection, Yes full ROM and Yes no lymphadenopathy Chest: Chest palpation & inspection: normal inspection of the chest Resp: Effort & Inspection: normal respiratory effort and able to speak in complete sentences Auscultation: clear to auscultation bilaterally Cardio: Jugular venous distension: no JVD Rate: regular rate Rhythm: regular rhythm GI: Inspection: Yes normal to inspection Palpation (GI): Soft to palpation, not firm and no guarding Skin: General skin exam: no rashes or lesions noted and elasticity normal Wounds: no wounds Course Reevaluation(s) Reevaluation #1: pt was evaluated by care team,at this time does not want detox anymore,he wants to go ho home,he is not SI,no HI MDM - Alcohol Lab Data Result diagrams: 01/18/21 01:03 01/18/21 01:03 Labs: Lab Results 01/18/21 01/18/21 01/18/21 Range/Units 01:03 01:03 01:03 WBC 4.6 L (4.8-10.8) X10*3/uL RBC 3.30 L (4.60-5.80) X10*6/uL Hgb 10.0 L (14.0-18.0) g/dl Hct 30.9 L (42.0-52.0) % MCV 93.6 (80.0-98.0) fL MCH 30.3 (27.0-33.0) pg MCHC 32.4 (31.0-36.0) g/dl RDW 16.4 H (11.0-16.0) % Plt Count 159 L D (160-400) X10*3/uL MPV 8.9 L (9.4-12.4) fL Immature Gran % (Auto) 0.4 (0.0-0.4) % Neut % (Auto) 49.7 (45-73) % Lymph % (Auto) 34.1 (20-40) % Hooker % (Auto) 9.3 (2-11) % Eos % (Auto) 5.0 H (0-4) % Baso % (Auto) 1.5 (0-2) % Lymph # (Auto) 1.6 (1.2-4.9) X10*3/uL Hooker # (Auto) 0.4 (0.1-1.2) X10*3/uL Eos # (Auto) 0.2 (0.0-0.4) X10*3/uL Baso # (Auto) 0.1 (0.0-0.2) X10*3/uL Abs Immat Gran (auto) 0.02 (0.00-0.03) X10*3/uL Absolute Neuts (auto) 2.3 (2.0-8.3) x10*3/uL Absolute Nucleated RBC 0.000 (0.0-0.012) X10*3/uL Nucleated RBC % (auto) 0.0 (0.0-0.2) /100WBC Sodium 144 (135-145) mmol/L Potassium 3.6 (3.3-5.1) mmol/L Chloride 110 H (96-108) mmol/L Carbon Dioxide 24 (22-29) mmol/L Anion Gap 14 (12-20) BUN 9 (9-16) mg/dL Creatinine 0.82 (0.5-1.4) mg/dL Estim Creat Clear Calc 94.8 Estimated GFR > 60 Random Glucose 94 (60-115) mg/dL Calcium 8.7 (8.4-10.2) mg/dL Total Bilirubin 0.7 (0.0-1.0) mg/dL AST 117 H (5-37) U/L ALT 51 H (0-40) U/L Alkaline Phosphatase 117 (39-117) U/L Total Protein 6.8 (6.5-8.0) g/dL Albumin 3.7 (3.5-5.0) g/dL Ethyl Alcohol 276 mg/dL Discharge Plan Discharge Clinical Impression: Alcohol abuse, Alcohol intoxication Patient Disposition: Home, Self-Care Additional Instructions: Please follow-up with your primary care physician, return if you feel worse Prescriptions: No Action albuterol sulfate 90 mcg/actuation HFA aerosol inhaler 2 puff inhalation Q4-6H PRN (Reason: Wheezing) RF: 0 melatonin 5 mg tablet 1 tab PO BEDTIME PRN (Reason: Insomnia) RF: 0 Eliquis 5 mg tablet 1 tab PO BID RF: 0 acamprosate 333 mg tablet,delayed release (DR/EC) 2 tab PO TID RF: 0 cholecalciferol (vitamin D3) 50 mcg (2,000 unit) tablet 1 tab PO DAILY RF: 0 docusate sodium [DOK] 100 mg capsule 1 cap PO BID RF: 0 Combivent Respimat 20-100 mcg/actuation mist 1 puff inhalation QID RF: 0
[2021-01-18 00:50] VITALS: BP 105/59; PULSE 91; RESP 18; TEMP 36.5; O2SAT 98; BMI 22.8
[2021-01-18 01:08] LABS: MANUAL DIFF FLAG NO
[2021-01-18 01:09] LABS: Basophils Absolute Auto 0.1 X10*3/uL (0.0-0.2); Basophils Percent Auto 1.5 % (0-2); Eosinophils Absolute Auto 0.2 X10*3/uL (0.0-0.4); Hematocrit 30.9 % (42.0-52.0); Imm Gran Abs Auto 0.02 X10*3/uL (0.00-0.03); Imm Gran Pct Auto 0.4 % (0.0-0.4); Lymphocytes Absolute Auto 1.6 X10*3/uL (1.2-4.9); Lymphocytes Percent Auto 34.1 % (20-40); Mean Corpuscular HGB Conc 32.4 g/dl (31.0-36.0); Mean Corpuscular Hemoglobin 30.3 pg (27.0-33.0); Mean Corpuscular Volume 93.6 fL (80.0-98.0); Mean Platelet Volume 8.9 fL (9.4-12.4); Monocytes Absolute Auto 0.4 X10*3/uL (0.1-1.2); Monocytes Percent Auto 9.3 % (2-11); Neutrophils Absolute Auto 2.3 x10*3/uL (2.0-8.3); Neutrophils Percent Auto 49.7 % (45-73); Platelet Count 159 X10*3/uL (160-400); Red Cell Distribution Width 16.4 % (11.0-16.0); White Blood Count 4.6 X10*3/uL (4.8-10.8)
[2021-01-18 01:26] LABS: Ethanol 276 mg/dL
[2021-01-18 01:31] LABS: Alanine Aminotransferase 51 U/L (0-40); Albumin Level 3.7 g/dL (3.5-5.0); Alkaline Phosphatase 117 U/L (39-117); Anion Gap 14 (12-20); Aspartate Amino Transferase 117 U/L (5-37); Bilirubin Total 0.7 mg/dL (0.0-1.0); Blood Urea Nitrogen 9 mg/dL (9-16); Calcium 8.7 mg/dL (8.4-10.2); Carbon Dioxide 24 mmol/L (22-29); Chloride 110 mmol/L (96-108); Creatinine Clr Calc Pharmacy 94.8; Estimated Glomerular Filt Rate > 60; Glucose Random 94 mg/dL (60-115); Potassium 3.6 mmol/L (3.3-5.1); Sodium 144 mmol/L (135-145); Total Protein 6.8 g/dL (6.5-8.0)
--- NOTE | 2021-01-18 01:32 | MHC.CARE ---
T/W met with pt for consult as pt is requesting detox. Pt is familiar to the CARE team and ED. Pt was here today in the ED and previously d/c. T/W met with pt two days ago and Recovery team obtained a detox bed for pt in [place]. Pt was transported there and informed t/w that he left because I didn't like it . Pt reports they were mean to me . Pt states I only want to go to [place] . T/w explained to him that it is unlikely and pt requesting to be d/c. T/w will attempt to secure a lyft for pt.
== END 2021-01-18 01:58 | disposition home or self-care (01) ==
PROVIDERS: Emergency Provider Emergency Medicine
DX: F10.129 Alcohol abuse with intoxication, unspecified (principal); Y90.8 Blood alcohol level of 240 mg/100 ml or more; I48.91 Unspecified atrial fibrillation; J44.9 Chronic obstructive pulmonary disease, unspecified; Z79.01 Long term (current) use of anticoagulants; Z79.899 Other long term (current) drug therapy
CPT/HCPCS: 36415; 80053; 82077; 85025; 99283

== ENCOUNTER 2021-01-28 18:05 | Emergency (ER) | payer OTHER, SELFPAY ==
--- NOTE | ~2021-01-28 | CT_ITS ---
EXAMINATION: CT HEAD WITHOUT CONTRAST CLINICAL INFORMATION: Multiple falls. Alcohol use. COMPARISON: Head CT from 01/12/2021 TECHNIQUE: Contiguous axial imaging was performed from the skull base to vertex without intravenous administration of contrast. This CT examination was performed using dose optimization techniques as appropriate, variously including the following: *Automated exposure control *Adjustment of mA and/or kV according to patient size (this includes techniques or standardized protocols for targeted exams where dose is matched to indication/reason for exam; i.e. extremities or head) *Use of iterative reconstruction technique DLP: 735 mGy-cm FINDINGS: Again noted is the right frontal craniectomy defect and an old focus of heterotopic ossification attached to the outer table of the frontal skull. There is hypoattenuation from encephalomalacia in the right frontal lobe deep to the craniotomy site. No evidence of acute intracranial hemorrhage, extra-axial fluid collection, focal mass effect or midline shift. The ventricles have normal size and configuration; no hydrocephalus. The brainstem and cerebellum are unremarkable. The juan-white matter differentiation of the brain is maintained. No evidence of an acute major vascular territory infarction. The visualized paranasal sinuses, mastoid air cells and middle ear cavities are well aerated. The temporomandibular joints are normal. No acute intraorbital pathology. CT/CT head/brain wo con IMPRESSION: No hemorrhage or other acute intracranial pathology compared to 01/12/2021.
[2021-01-28 18:16] VITALS: BMI 21.6
[2021-01-28 18:25] VITALS: BP 92/52; PULSE 80; RESP 16; TEMP 36.6; O2SAT 97
[2021-01-28 18:26] VITALS: BP 92/52; PULSE 80; RESP 16; TEMP 36.6; O2SAT 97
--- NOTE | 2021-01-28 19:07 | ED.FALL ---
HPI - Fall General Chief Complaint: Fall Stated Complaint: fall days ago Time Seen by Provider: 01/28/21 19:00 Source: patient and EMS Mode of arrival: EMS Limitations: no limitations History of Present Illness HPI Narrative: Patient is coming to the emergency room via EMS. According to EMS, the patient's family called because they found patient with several ecchymoses to the right side of the face. Patient is known to have unstable gait and chronic alcohol abuse. Patient states that he does not remember if he lost consciousness or not. Patient takes daily Eliquis for atrial fibrillation. The last time he remembers falling was approximately 2-3 days ago. Patient was recently in rehab/detox. Patient states that he did not like going there because ?there were too many mental cases there and it was in [place], too far from here. Patient denies headache, no neck pain, no pain anywhere else. Related Data Home Medications Medication Instructions Recorded Confirmed albuterol sulfate 90 mcg/actuation 2 puff INHALATION Q4-6H PRN 09/11/20 01/16/21 aerosol inhaler apixaban 5 mg tablet (Eliquis) 1 tab PO BID 09/11/20 01/16/21 melatonin 5 mg tablet 1 tab PO BEDTIME PRN 09/11/20 01/16/21 docusate sodium 100 mg capsule 1 cap PO BID 12/31/20 01/16/21 (DOK) ipratropium 20 mcg-albuterol 100 1 puff INHALATION QID 12/31/20 01/16/21 mcg/actuation mist for inhalation (Combivent Respimat) acamprosate 333 mg tablet,delayed 2 tab PO TID 01/13/21 01/16/21 release cholecalciferol (vitamin D3) 50 1 tab PO DAILY 01/13/21 01/16/21 mcg (2,000 unit) tablet Allergies Allergy/AdvReac Type Severity Reaction Status Date / Time Peanut Butter Allergy Facial Verified 01/13/21 00:49 Swelling raspberry Allergy Facial Verified 01/13/21 00:49 Swelling Review of Systems Review of Systems: Constitutional : No Weight loss, No Fever, No Chills, No Night Sweats, No Fatigue, No Malaise ENT/Mouth : No Hearing loss, No Ear Pain, No Nasal Congestion, No Sinus Pain, No Hoarseness, No sore throat, No Rhinorrhea, No Swallowing Difficulty Eyes: No Eye Pain, No Swelling, No Redness, No Foreign Body, No Discharge, No Vision Changes Cardiovascular : No Chest Pain, No SOB, No Dyspnea on Exertion, No Orthopnea, No Edema, No Palpitations Respiratory : No Cough, No Sputum, No Wheezing, No Smoke Exposure, No Dyspnea Gastrointestinal : No Nausea, No Vomiting, No Diarrhea, No Constipation, No abdominal Pain, No Hematochezia, No Melena Genitourinary : no irregular bleeding, No Dysuria, No Urinary Frequency, No Hematuria, No Urinary Incontinence, No Urgency, No Flank Pain, No Urinary Flow Changes, No Hesitancy Musculoskeletal : No joint pain, No Myalgias, No Joint Swelling Skin : No Skin Lesions, No rash Neuro : No Weakness, No Numbness, No Paresthesias, No Loss of Consciousness, No Dizziness, No Headache Psych : No Anxiety/Panic, No Depression, No SI/HI/AH/VH, No Social Issues, Heme/Lymph: No Bruising, No Bleeding,No Lymphadenopathy Endocrine : No Polyuria, No Polydipsia, No Temperature Intolerance [facility] Past Medical History Medical History Afib Alcohol abuse Asthma COPD (chronic obstructive pulmonary disease) Neuropathy Social History Social History Alcohol intake: current Alcohol intake frequency: 3 or more drinks per day Alcohol type: beer, wine and hard liquor Patient Tobacco Use Status: Current everyday Tobacco user Substance Use Type: Marijuana Advance Directives: No Advance Directives Information Provided: No Physical Exam Vital Signs: Vital Signs: Last Vital Signs Temp 97.8 F 01/28/21 18:26 Pulse 80 01/28/21 18:26 Resp 16 01/28/21 18:26 BP 92/52 L 01/28/21 18:26 Pulse Ox 97 01/28/21 18:26 Body Mass Index 21.6 Const: Other: Appearance: Alert. Oriented X3. No acute distress. Eyes: Pupils equal, round and reactive to light. ENT: Pharynx normal. Neck: Normal inspection. Neck supple. No lymph nodes noted. No crepitus CVS: Normal heart rate and rhythm. Pulses normal. Normal S1 and S2 Respiratory: No respiratory distress. Breath sounds normal. No Wheezing. No rales Abdomen: Soft and nontender. No rigidity. No distention. good BS x4 Skin: Skin warm and dry. Multiple ecchymoses to the right side of the face and forehead Extremities: No lower extremity edema. No lower extremity edema. No Lacerations. No Rash Neuro: Oriented X 3. No motor deficit. No sensory deficit. Moving all extermities. No slurred speech. Course Course Course Narrative: CT scan pending. Patient has no neurological deficits. financial coach is at bedside The care team/high school football coach is talked to the patient, at this time there are no beds available. However, it seems that in the morning some of the beds may become available. Patient will stay here overnight, he can be reassessed in the morning again. Head CT shows no acute findings. Patient is not suicidal, not homicidal. Calm and cooperative, eating dinner. Physician as serration started at 21:50 MDM - Fall Imaging Data CT scan - head: Radiologist's impression: FINDINGS: Again noted is the right frontal craniectomy defect and an old focus of heterotopic ossification attached to the outer table of the frontal skull. There is hypoattenuation from encephalomalacia in the right frontal lobe deep to the craniotomy site. No evidence of acute intracranial hemorrhage, extra-axial fluid collection, focal mass effect or midline shift. The ventricles have normal size and configuration; no hydrocephalus. The brainstem and cerebellum are unremarkable. The juan-white matter differentiation of the brain is maintained. No evidence of an acute major vascular territory infarction. The visualized paranasal sinuses, mastoid air cells and middle ear cavities are well aerated. The temporomandibular joints are normal. No acute intraorbital pathology. CT/CT head/brain wo con IMPRESSION: No hemorrhage or other acute intracranial pathology compared to 01/12/2021. Discharge Plan Discharge Clinical Impression: Alcohol abuse, Multiple falls Patient Disposition: Still a Patient Prescriptions: No Action albuterol sulfate 90 mcg/actuation HFA aerosol inhaler 2 puff inhalation Q4-6H PRN (Reason: Wheezing) RF: 0 melatonin 5 mg tablet 1 tab PO BEDTIME PRN (Reason: Insomnia) RF: 0 Eliquis 5 mg tablet 1 tab PO BID RF: 0 acamprosate 333 mg tablet,delayed release (DR/EC) 2 tab PO TID RF: 0 cholecalciferol (vitamin D3) 50 mcg (2,000 unit) tablet 1 tab PO DAILY RF: 0 docusate sodium [DOK] 100 mg capsule 1 cap PO BID RF: 0 Combivent Respimat 20-100 mcg/actuation mist 1 puff inhalation QID RF: 0
--- NOTE | 2021-01-28 19:27 | MHC.RECOVSUP ---
? Reason for consult: Recovery support o ? ? ?Current location: ?[facility] o ? ? ?Identified substance use concern: ?Alcohol - Seeking ATS (detox) - Support ? ?Intervention: o ATS bed search started/7:15 pm completed 7:30pm o Community resources provided o Harm reduction discussion ? Plan: o Bed search in progress to pending for am o Follow up tomorrow ? o Patient to follow up with [facility] after discharge ? Additional information: Patient came in seeking detox and stated that he would like to go [facility] but there aren't any beds available at this time. We were able to review harm reduction strategies. ?
[2021-01-29 04:00] VITALS: RESP 16
== END 2021-01-29 08:21 | disposition home or self-care (01) ==
PROVIDERS: Emergency Provider Emergency Medicine
DX: F10.10 Alcohol abuse, uncomplicated (principal); Y90.9 Presence of alcohol in blood, level not specified; Z91.81 History of falling; I48.91 Unspecified atrial fibrillation; F17.200 Nicotine dependence, unspecified, uncomplicated; F12.90 Cannabis use, unspecified, uncomplicated; Z79.01 Long term (current) use of anticoagulants; Z79.899 Other long term (current) drug therapy
CPT/HCPCS: 70450; 99284

== ENCOUNTER 2021-02-05 22:39 | Emergency (ER) | payer OTHER, MEDICARE, SELFPAY ==
--- NOTE | ~2021-02-05 | XR_ITS ---
EXAMINATION: XR CHEST CLINICAL INFORMATION: Cough. COMPARISON: Chest x-ray 12/31/2020 TECHNIQUE: 2 views of the chest were obtained. FINDINGS: No significant abnormality is noted involving the heart, lungs, mediastinum, bony thorax or soft tissues. XR/XR chest 2V IMPRESSION: Unremarkable examination.
--- NOTE | 2021-02-05 22:51 | ED.PSYCH ---
HPI - Psych General Chief Complaint: Psychiatric Symptoms Stated Complaint: etoh Source: patient and EMS Mode of arrival: EMS Limitations: no limitations History of Present Illness HPI Narrative: 60-year-old male presents via EMS for suicidal ideation and alcohol intoxication. MD complaint: suicidal ideation, feels depressed and alcohol abuse Onset (ago): year(s) Duration: constant History of same: Yes Relieving factors: none Exacerbating factors: alcohol Context: recent alcohol abuse and significant life stressor Associated psychiatric symptoms: depression and suicidal ideation Associated symptoms: denies other symptoms If self harm: admits thoughts of self harm Related Data Home Medications Medication Instructions Recorded Confirmed albuterol sulfate 90 mcg/actuation 2 puff INHALATION Q4-6H PRN 09/11/20 02/06/21 aerosol inhaler apixaban 5 mg tablet (Eliquis) 1 tab PO BID 09/11/20 01/16/21 melatonin 5 mg tablet 1 tab PO BEDTIME PRN 09/11/20 01/16/21 docusate sodium 100 mg capsule 1 cap PO BID 12/31/20 01/16/21 (DOK) ipratropium 20 mcg-albuterol 100 1 puff INHALATION QID 12/31/20 01/16/21 mcg/actuation mist for inhalation (Combivent Respimat) acamprosate 333 mg tablet,delayed 2 tab PO TID 01/13/21 02/06/21 release cholecalciferol (vitamin D3) 50 1 tab PO DAILY 01/13/21 01/16/21 mcg (2,000 unit) tablet Allergies Allergy/AdvReac Type Severity Reaction Status Date / Time Peanut Butter Allergy Facial Verified 02/05/21 22:58 Swelling raspberry Allergy Facial Verified 02/05/21 22:58 Swelling Review of Systems Review of Systems: Constitutional: No Fever, No Chills ENT/Mouth: No sore throat, No Rhinorrhea Eyes: No Eye Pain, No Swelling, No Redness Cardiovascular: No Chest Pain, No SOB Respiratory: No Cough, No Sputum Gastrointestinal: No Nausea, No Vomiting, No Diarrhea, No abdominal Pain Genitourinary: No Dysuria, No Hematuria Musculoskeletal: No joint pain, No Myalgias, No Joint Swelling Skin: No Skin Lesions, No rash Neuro: No Weakness, No Numbness, No Loss of Consciousness, No Dizziness, No Headache Psych: No Anxiety, positive Depression, positive suicidal ideation, positive alcohol abuse Heme/Lymph: No Bruising, No Bleeding,No Lymphadenopathy Endocrine: No Polyuria, No Polydipsia Yes all other systems are reviewed and are negative [facility] Past Medical History Attestation statement: The following information was validated with the patient. Source: old records reviewed Medical History Afib Alcohol abuse Asthma COPD (chronic obstructive pulmonary disease) Neuropathy Social History Social History Alcohol intake: current Alcohol intake frequency: 3 or more drinks per day Alcohol type: beer, wine and hard liquor Patient Tobacco Use Status: Current everyday Tobacco user Substance Use Type: Marijuana Advance Directives: No Advance Directives Information Provided: No Physical Exam Vital Signs: Vital Signs: Last Vital Signs Temp 97.0 F 02/05/21 22:54 Pulse 94 02/05/21 22:54 Resp 15 02/05/21 22:54 BP 103/65 02/05/21 22:54 Pulse Ox 93 02/05/21 22:54 BMI result Body Mass Index 20.7 Appearance: Alert. Oriented X3. Moderate psychiatric distress. Eyes: Pupils equal, round and reactive to light. Sclera nonicteric. ENT: Pharynx normal. Moist mucous membranes. Neck: Normal inspection. Neck supple. CVS: Normal heart rate and rhythm. Pulses normal. Respiratory: No respiratory distress. Breath sounds normal. Abdomen: Soft and nontender. Skin: Skin warm and dry. Normal skin color. Normal skin turgor. Extremities: No lower extremity edema. Gait balanced with cane per baseline. Neuro: No motor deficit. No sensory deficit. Cranial nerves 2-12 intact. Course Course Course Narrative: 60-year-old male presents via EMS for suicidal ideation and alcohol intoxication. States that he has no reason to live, not really descriptive about plan. States that he drinks alcohol on daily basis, at least 2 pt per day with beer. At this time will order labs, crisis consult and place patient on a Section 12. Patient is well-known to this facility for similar circumstances. Multiple encounters with this patient, states that he wants to end his life because his son does not want have anything to do with him. Prior discussions with his son, son states that he did not want have any contact with father as long as he is abusing alcohol. If patient decides to stop using alcohol then son will be more than happy to be involved in his life. Patient is calm and cooperative, compliant with care. Will order labs, possible Section 35 versus section 12. 12:06 a.m. white count is 3.8, consistent with prior lab values. H&H 10.6/32.4 which is consistent with prior values. Anemia of chronic disease versus alcoholic anemia. Chest x-rays negative for acute findings. Patient is medically cleared. Physician observation started at this time. 12:25 a.m. blood alcohol 305. Crisis consult pending for morning. 1:06 a.m. [facility] records obtained. CT scan of head and cervical spine are negative for acute findings requiring emergent intervention. Patient was evaluated on 02/05/2021 for a fall with head and facial trauma. MDM - Psych Differential Diagnosis Differential diagnosis: Likely suicidal ideation, depression and alcohol intoxication Medical Records Attestation: I reviewed the patient's medical records. Lab Data Attestation: I reviewed the patient's lab results. Result diagrams: 02/05/21 23:49 02/05/21 23:49 Labs: Lab Results 02/05/21 02/05/21 02/05/21 Range/Units 22:51 23:15 23:45 WBC (4.8-10.8) X10*3/uL RBC (4.60-5.80) X10*6/uL Hgb (14.0-18.0) g/dl Hct (42.0-52.0) % MCV (80.0-98.0) fL MCH (27.0-33.0) pg MCHC (31.0-36.0) g/dl RDW (11.0-16.0) % Plt Count (160-400) X10*3/uL MPV (9.4-12.4) fL Immature Gran % (Auto) (0.0-0.4) % Neut % (Auto) (45-73) % Lymph % (Auto) (20-40) % [place] % (Auto) (2-11) % Eos % (Auto) (0-4) % Baso % (Auto) (0-2) % Lymph # (Auto) (1.2-4.9) X10*3/uL [place] # (Auto) (0.1-1.2) X10*3/uL Eos # (Auto) (0.0-0.4) X10*3/uL Baso # (Auto) (0.0-0.2) X10*3/uL Abs Immat Gran (auto) (0.00-0.03) X10*3/uL Absolute Neuts (auto) (2.0-8.3) x10*3/uL Absolute Nucleated RBC (0.0-0.012) X10*3/uL Nucleated RBC % (auto) (0.0-0.2) /100WBC Sodium (135-145) mmol/L Potassium (3.3-5.1) mmol/L Chloride (96-108) mmol/L Carbon Dioxide (22-29) mmol/L Anion Gap (12-20) BUN (9-16) mg/dL Creatinine (0.5-1.4) mg/dL Estim Creat Clear Calc Estimated GFR POC Glucose 90 (60-115) mg/dL Random Glucose (60-115) mg/dL Calcium (8.4-10.2) mg/dL Total Bilirubin (0.0-1.0) mg/dL AST (5-37) U/L ALT (0-40) U/L Alkaline Phosphatase (39-117) U/L Total Protein (6.5-8.0) g/dL Albumin (3.5-5.0) g/dL Lipase (8-78) U/L Urine Color Urine Appearance Urine pH (5.0-8.0) Ur Specific [place] (1.005-1.025) Urine Protein (NEG-TRACE) MG/DL Urine Glucose (UA) (NEG) MG/DL Urine Ketones (NEG) MG/DL Urine Blood (NEG) Urine Nitrite (NEG) Ur Leukocyte Esterase (NEG) Urine RBC (0) /HPF Urine WBC (0-4) /HPF Ur Squamous Epith Cells /LPF Urine Bacteria /LPF Urine Mucus /LPF Salicylates (15-30) mg/dL Urine Opiates Screen Not Detected (Not Detect) Urine Fentanyl Screen Not Detected (Not Detect) Acetaminophen (<30) mcg/mL Ur Barbiturates Screen POSITIVE H (Not Detect) Ur Phencyclidine Scrn Not Detected (Not Detect) Ur Amphetamines Screen Not Detected (Not Detect) U Benzodiazepines Scrn POSITIVE H (Not Detect) Urine Cocaine Screen Not Detected (Not Detect) U Marijuana (THC) Screen Not Detected (Not Detect) Ethyl Alcohol mg/dL COVID-19 (NELY) Negative (Negative) COVID-19 Clin Com See Note 02/05/21 02/05/21 02/05/21 Range/Units 23:45 23:49 23:49 WBC 3.8 L (4.8-10.8) X10*3/uL RBC 3.46 L (4.60-5.80) X10*6/uL Hgb 10.6 L (14.0-18.0) g/dl Hct 32.4 L (42.0-52.0) % MCV 93.6 (80.0-98.0) fL MCH 30.6 (27.0-33.0) pg MCHC 32.7 (31.0-36.0) g/dl RDW 16.4 H (11.0-16.0) % Plt Count 154 L (160-400) X10*3/uL MPV 9.5 (9.4-12.4) fL Immature Gran % (Auto) 0.3 (0.0-0.4) % Neut % (Auto) 37.2 L (45-73) % Lymph % (Auto) 45.8 H (20-40) % [place] % (Auto) 11.4 H (2-11) % Eos % (Auto) 3.7 (0-4) % Baso % (Auto) 1.6 (0-2) % Lymph # (Auto) 1.7 (1.2-4.9) X10*3/uL [place] # (Auto) 0.4 (0.1-1.2) X10*3/uL Eos # (Auto) 0.1 (0.0-0.4) X10*3/uL Baso # (Auto) 0.1 (0.0-0.2) X10*3/uL Abs Immat Gran (auto) 0.01 (0.00-0.03) X10*3/uL Absolute Neuts (auto) 1.4 L (2.0-8.3) x10*3/uL Absolute Nucleated RBC 0.000 (0.0-0.012) X10*3/uL Nucleated RBC % (auto) 0.0 (0.0-0.2) /100WBC Sodium 144 (135-145) mmol/L Potassium 3.6 (3.3-5.1) mmol/L Chloride 104 (96-108) mmol/L Carbon Dioxide 27 (22-29) mmol/L Anion Gap 17 (12-20) BUN 8 L (9-16) mg/dL Creatinine 0.81 (0.5-1.4) mg/dL Estim Creat Clear Calc 87.1 Estimated GFR > 60 POC Glucose (60-115) mg/dL Random Glucose 88 (60-115) mg/dL Calcium 8.4 (8.4-10.2) mg/dL Total Bilirubin 0.7 (0.0-1.0) mg/dL AST 65 H (5-37) U/L ALT 45 H (0-40) U/L Alkaline Phosphatase 112 (39-117) U/L Total Protein 7.0 (6.5-8.0) g/dL Albumin 3.8 (3.5-5.0) g/dL Lipase 42 (8-78) U/L Urine Color YELLOW Urine Appearance CLEAR Urine pH 6.5 (5.0-8.0) Ur Specific [place] 1.020 (1.005-1.025) Urine Protein TRACE (NEG-TRACE) MG/DL Urine Glucose (UA) NEG (NEG) MG/DL Urine Ketones NEG (NEG) MG/DL Urine Blood NEG (NEG) Urine Nitrite NEG (NEG) Ur Leukocyte Esterase NEG (NEG) Urine RBC 1-4 (0) /HPF Urine WBC 1-4 (0-4) /HPF Ur Squamous Epith Cells 1+ /LPF Urine Bacteria 1+ /LPF Urine Mucus 2+ /LPF Salicylates < 5.0 L (15-30) mg/dL Urine Opiates Screen (Not Detect) Urine Fentanyl Screen (Not Detect) Acetaminophen < 1 (<30) mcg/mL Ur Barbiturates Screen (Not Detect) Ur Phencyclidine Scrn (Not Detect) Ur Amphetamines Screen (Not Detect) U Benzodiazepines Scrn (Not Detect) Urine Cocaine Screen (Not Detect) U Marijuana (THC) Screen (Not Detect) Ethyl Alcohol mg/dL COVID-19 (NELY) (Negative) COVID-19 Clin Com 02/05/21 Range/Units 23:49 WBC (4.8-10.8) X10*3/uL RBC (4.60-5.80) X10*6/uL Hgb (14.0-18.0) g/dl Hct (42.0-52.0) % MCV (80.0-98.0) fL MCH (27.0-33.0) pg MCHC (31.0-36.0) g/dl RDW (11.0-16.0) % Plt Count (160-400) X10*3/uL MPV (9.4-12.4) fL Immature Gran % (Auto) (0.0-0.4) % Neut % (Auto) (45-73) % Lymph % (Auto) (20-40) % [place] % (Auto) (2-11) % Eos % (Auto) (0-4) % Baso % (Auto) (0-2) % Lymph # (Auto) (1.2-4.9) X10*3/uL [place] # (Auto) (0.1-1.2) X10*3/uL Eos # (Auto) (0.0-0.4) X10*3/uL Baso # (Auto) (0.0-0.2) X10*3/uL Abs Immat Gran (auto) (0.00-0.03) X10*3/uL Absolute Neuts (auto) (2.0-8.3) x10*3/uL Absolute Nucleated RBC (0.0-0.012) X10*3/uL Nucleated RBC % (auto) (0.0-0.2) /100WBC Sodium (135-145) mmol/L Potassium (3.3-5.1) mmol/L Chloride (96-108) mmol/L Carbon Dioxide (22-29) mmol/L Anion Gap (12-20) BUN (9-16) mg/dL Creatinine (0.5-1.4) mg/dL Estim Creat Clear Calc Estimated GFR POC Glucose (60-115) mg/dL Random Glucose (60-115) mg/dL Calcium (8.4-10.2) mg/dL Total Bilirubin (0.0-1.0) mg/dL AST (5-37) U/L ALT (0-40) U/L Alkaline Phosphatase (39-117) U/L Total Protein (6.5-8.0) g/dL Albumin (3.5-5.0) g/dL Lipase (8-78) U/L Urine Color Urine Appearance Urine pH (5.0-8.0) Ur Specific [place] (1.005-1.025) Urine Protein (NEG-TRACE) MG/DL Urine Glucose (UA) (NEG) MG/DL Urine Ketones (NEG) MG/DL Urine Blood (NEG) Urine Nitrite (NEG) Ur Leukocyte Esterase (NEG) Urine RBC (0) /HPF Urine WBC (0-4) /HPF Ur Squamous Epith Cells /LPF Urine Bacteria /LPF Urine Mucus /LPF Salicylates (15-30) mg/dL Urine Opiates Screen (Not Detect) Urine Fentanyl Screen (Not Detect) Acetaminophen (<30) mcg/mL Ur Barbiturates Screen (Not Detect) Ur Phencyclidine Scrn (Not Detect) Ur Amphetamines Screen (Not Detect) U Benzodiazepines Scrn (Not Detect) Urine Cocaine Screen (Not Detect) U Marijuana (THC) Screen (Not Detect) Ethyl Alcohol 305 H* mg/dL COVID-19 (NELY) (Negative) COVID-19 Clin Com Imaging Data Chest x-ray: Attestation: I personally reviewed and interpreted this imaging study as follows: Radiologist's impression: EXAMINATION: XR CHEST CLINICAL INFORMATION: Cough. COMPARISON: Chest x-ray 12/31/2020 TECHNIQUE: 2 views of the chest were obtained. FINDINGS: No significant abnormality is noted involving the heart, lungs, mediastinum, bony thorax or soft tissues. XR/XR chest 2V IMPRESSION: Unremarkable examination. ECG Data Attestation: I personally reviewed and interpreted this ECG as follows: ECG interpretation date: 02/06/21 ECG interpretation time: 00:16 Prior ECG tracings: available for review Interpretation: Vent. rate 83 BPM MO interval 142 ms QRS duration 126 ms QT/QTc 406/477 ms P-R-T axes 83 -73 44 Normal sinus rhythm Right bundle branch block Left anterior fascicular block Bifascicular block Abnormal ECG When compared with ECG of 14-NOV-2021 19:58, No significant change was found Discharge Plan Discharge Clinical Impression: Suicidal ideation, Alcohol abuse Depression Qualifiers: Depression Type: major depressive disorder Major depression recurrence: recurrent Active/Remission status: currently active Major depression episode severity: severe Psychotic features: with psychotic features Qualified Code(s): F33.3 - Major depressive disorder, recurrent, severe with psychotic symptoms Prescriptions: No Action albuterol sulfate 90 mcg/actuation HFA aerosol inhaler 2 puff inhalation Q4-6H PRN (Reason: Wheezing) RF: 0 melatonin 5 mg tablet 1 tab PO BEDTIME PRN (Reason: Insomnia) RF: 0 Eliquis 5 mg tablet 1 tab PO BID RF: 0 acamprosate 333 mg tablet,delayed release (DR/EC) 2 tab PO TID RF: 0 cholecalciferol (vitamin D3) 50 mcg (2,000 unit) tablet 1 tab PO DAILY RF: 0 docusate sodium [DOK] 100 mg capsule 1 cap PO BID RF: 0 Combivent Respimat 20-100 mcg/actuation mist 1 puff inhalation QID RF: 0
--- NOTE | 2021-02-05 22:53 | ECG_ITS ---
Test Reason : MED CLEARENCE Blood Pressure : / mmHG Vent. Rate : 083 BPM Atrial Rate : 083 BPM P-R Int : 142 ms QRS Dur : 126 ms QT Int : 406 ms P-R-T Axes : 083 -73 044 degrees QTc Int : 477 ms Normal sinus rhythm Right bundle branch block Left anterior fascicular block Bifascicular block Abnormal ECG When compared with ECG of 12-JAN-2021 19:58, No significant change was found Referred By: Hannah Le Electronically Signed By:Michael Alejandra
[2021-02-05 22:54] VITALS: BP 103/65; BP 124/78; PULSE 77; PULSE 94; RESP 15; TEMP 36.1; O2SAT 93; O2SAT 94; BMI 20.7
[2021-02-05 22:54] LABS: Glucose, Whole Blood 90 mg/dL (60-115)
[2021-02-05 23:45] LABS: COVID-19 Test Negative (Negative); IDNOW Serial# 9DD0AD1C
[2021-02-05 23:52] LABS: Appearance Urine CLEAR; Color Urine YELLOW; Glucose Urine UA NEG (NEG); Leukocyte Esterase Urine NEG (NEG); Nitrite Urine NEG (NEG); PH 6.5 (5.0-8.0); Urine Blood NEG (NEG); Urine Ketones NEG (NEG); Urine Protein TRACE MG/DL (NEG-TRACE)
[2021-02-05 23:54] LABS: Basophils Absolute Auto 0.1 X10*3/uL (0.0-0.2); Basophils Percent Auto 1.6 % (0-2); Eosinophils Absolute Auto 0.1 X10*3/uL (0.0-0.4); Eosinophils Percent Auto 3.7 % (0-4); Hematocrit 32.4 % (42.0-52.0); Hemoglobin 10.6 g/dl (14.0-18.0); Imm Gran Abs Auto 0.01 X10*3/uL (0.00-0.03); Imm Gran Pct Auto 0.3 % (0.0-0.4); Lymphocytes Absolute Auto 1.7 X10*3/uL (1.2-4.9); Lymphocytes Percent Auto 45.8 % (20-40); MANUAL DIFF FLAG NO; Mean Corpuscular HGB Conc 32.7 g/dl (31.0-36.0); Mean Corpuscular Hemoglobin 30.6 pg (27.0-33.0); Mean Corpuscular Volume 93.6 fL (80.0-98.0); Mean Platelet Volume 9.5 fL (9.4-12.4); Monocytes Absolute Auto 0.4 X10*3/uL (0.1-1.2); Monocytes Percent Auto 11.4 % (2-11); Neutrophils Absolute Auto 1.4 x10*3/uL (2.0-8.3); Neutrophils Percent Auto 37.2 % (45-73); Platelet Count 154 X10*3/uL (160-400); Red Blood Count 3.46 X10*6/uL (4.60-5.80); Red Cell Distribution Width 16.4 % (11.0-16.0); White Blood Count 3.8 X10*3/uL (4.8-10.8)
[2021-02-06 00:09] LABS: Ethanol 305 mg/dL
[2021-02-06 00:15] LABS: Bacteria Urine 1+ /LPF; Squamous Epithelial Cell Urine 1+ /LPF
[2021-02-06 00:15] LABS: Acetaminophen LAB < 1 mcg/mL (<30); Alanine Aminotransferase 45 U/L (0-40); Albumin Level 3.8 g/dL (3.5-5.0); Alkaline Phosphatase 112 U/L (39-117); Anion Gap 17 (12-20); Aspartate Amino Transferase 65 U/L (5-37); Bilirubin Total 0.7 mg/dL (0.0-1.0); Blood Urea Nitrogen 8 mg/dL (9-16); Calcium 8.4 mg/dL (8.4-10.2); Carbon Dioxide 27 mmol/L (22-29); Chloride 104 mmol/L (96-108); Creatinine Clr Calc Pharmacy 87.1; Estimated Glomerular Filt Rate > 60; Glucose Random 88 mg/dL (60-115); Lipase 42 U/L (8-78); Potassium 3.6 mmol/L (3.3-5.1); Salicylate < 5.0 mg/dL (15-30); Sodium 144 mmol/L (135-145)
[2021-02-06 00:16] LABS: Mucus Urine 2+ /LPF
[2021-02-06] MEDS: LORazepam 1 MG TABLET 2 MG PO (00:20)
[2021-02-06 00:48] LABS: Amphetamine Screen Urine Not Detected (Not Detect); Barbiturates, Urine POSITIVE (Not Detect); Benzodiazepines Screen Urine POSITIVE (Not Detect); Cannabinoid Screen Urine Not Detected (Not Detect); Cocaine Screen Urine Not Detected (Not Detect); Fentanyl, urine Not Detected (Not Detect); Opiate Screen Urine Not Detected (Not Detect); Phencyclidine Screen Urine Not Detected (Not Detect)
--- NOTE | 2021-02-06 06:23 | PC.NURSE ---
Patient slept through the night, no distress observed/reported, asymptomatic of withdrawal, behavior appropriate, VSS, patient will be assessed by care team in the morning to see whether patient's requires full crises evaluation, N smart-sheet not done yet pending care team recommendation, medication compliant, patient use walker to ambulate, VSS, will continue to monitor.
--- NOTE | 2021-02-06 07:03 | PC.NURSE ---
patient appears to remain asleep at present, respirations are even and unlabored, patient appears in no distress
--- NOTE | 2021-02-06 12:40 | MHC.CARE ---
Pt is a 60 y/o single, Yi speaking, male who is previously known to The Care Team through prior interactions, ED visits and consults with the Recovery Team.? Yesterday pt arrived at the ED via ambulance after a fall.? Pt stated that he was consuming alcoholic beverage to the point of intoxication and fell.? Upon arrival, and by DOCK ATTENDANT report, pt stated that he wants to end his life because his son does not want have anything to do with him.? Pt has been medically cleared and is being assessed by the CARE Team to determine appropriate treatment recommendations. Pt has a hx of alcohol use.? No known hx of suicidal ideation or suicide attempts. Pt is alert and oriented x4 and is assessed in his room in the behavioral health pod of the ED.? Pt is dressed in hospital attire, appears disheveled, unwashed and older than his stated age.? He is moderately engaged in the assessment and appears help seeking, asking for detox.? 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 This has been going on for approximately 7 years.? Pt?s eye contact and speech are within normal limits.? He denies AVH and does not appear to be experiencing symptoms of psychosis.??? He denies SI, stating that this was the first time he has made such statements.? Pt stated that he felt like dying because he was in ?so much pain?.? When asked for clarification as to the type of pain, pt stated that he was in a great deal of physical pain from the fall he had.? He made no mention of his son being estranged from him being the source of the statements.? When asked what would be different after he is discharged, citing that he will likely continue to be in pain after discharge and for a period of time after, he said he did not know. Pt has been screened for safety and does not appear to meet the criteria for inpatient level of care.? CARE Team spoke with the on duty motorcoach operator as pt stated that he wanted detox for his alcohol use.? Recovery Team will see pt. A note was left for CARE Team that DOCK ATTENDANT Hannah Le expressed a need for a section 35 for pt.? Recovery DOCK ATTENDANT, Alexandra Spicer was notified via text regarding this.
[2021-02-06 14:15] VITALS: BP 134/74; PULSE 102; RESP 16; TEMP 36.9; O2SAT 92
== END 2021-02-06 15:00 | disposition other institution (70) ==
PROVIDERS: Nurse Practitioner Family; Emergency Provider Internal Medicine
DX: F33.3 Major depressive disorder, recurrent, severe with psychotic symptoms (principal); R45.851 Suicidal ideations; F10.10 Alcohol abuse, uncomplicated; Y90.8 Blood alcohol level of 240 mg/100 ml or more; J44.9 Chronic obstructive pulmonary disease, unspecified; R05.9 Cough, unspecified; Z20.822 Contact with and (suspected) exposure to COVID-19
CPT/HCPCS: 71046; 80053; 80143; 80179; 80307; 81001; 82077; 82947; 83690; 85025; 87635; 93005; 99284; 99285

== ENCOUNTER 2021-02-07 23:24 | Emergency (ER) | payer OTHER, SELFPAY ==
[2021-02-07 23:30] VITALS: BMI 21.4
--- NOTE | 2021-02-08 00:31 | ED.ALCOHOL ---
HPI - Alcohol General Chief Complaint: ETOH/Substance Use Stated Complaint: ETOH Time Seen by Provider: 02/07/21 23:51 Source: patient Mode of arrival: EMS History of Present Illness HPI narrative: 60-year-old male with known alcohol dependence was placed in a rehab facility and then left against medical advice yesterday and drink alcohol afterwards. He is now requesting assistance with detoxification and has no other acute complaints at this time. Related Data Home Medications Medication Instructions Recorded Confirmed albuterol sulfate 90 mcg/actuation 2 puff INHALATION Q4-6H PRN 09/11/20 02/06/21 aerosol inhaler apixaban 5 mg tablet (Eliquis) 1 tab PO BID 09/11/20 01/16/21 melatonin 5 mg tablet 1 tab PO BEDTIME PRN 09/11/20 01/16/21 docusate sodium 100 mg capsule 1 cap PO BID 12/31/20 01/16/21 (DOK) ipratropium 20 mcg-albuterol 100 1 puff INHALATION QID 12/31/20 01/16/21 mcg/actuation mist for inhalation (Combivent Respimat) acamprosate 333 mg tablet,delayed 2 tab PO TID 01/13/21 02/06/21 release cholecalciferol (vitamin D3) 50 1 tab PO DAILY 01/13/21 01/16/21 mcg (2,000 unit) tablet Allergies Allergy/AdvReac Type Severity Reaction Status Date / Time Peanut Butter Allergy Facial Verified 02/05/21 22:58 Swelling raspberry Allergy Facial Verified 02/05/21 22:58 Swelling Review of Systems Review of Systems: Pertinent positives and negatives as stated in HPI 10 point review of systems is otherwise negative. PMFSH Past Medical History Source: nursing notes reviewed Medical History Afib Alcohol abuse Asthma COPD (chronic obstructive pulmonary disease) Neuropathy Social History Social History Alcohol intake: current Alcohol intake frequency: 3 or more drinks per day Alcohol type: beer, wine and hard liquor Patient Tobacco Use Status: Current everyday Tobacco user Substance Use Type: Marijuana Advance Directives: No Physical Exam Vital Signs: Vital Signs: BMI result Body Mass Index 21.4 VITAL SIGNS: Reviewed. GENERAL: Well developed, well nourished, in no acute distress. HEAD: Normocephalic/atraumatic EYES: PERRLA, EOMI OROPHARYNX: no oral lesions noted, posterior pharynx clear NECK: Supple, no adenopathy LUNGS: Normal breath sounds. No adventitious sounds or accessory muscle use. SpO2<92> CARDIOVASCULAR: Regular rate and rhythm without noted murmurs, no JVD or lower extremity edema. ABDOMEN: Soft, non-tender, non-distended with bowel sounds. Left leg: Superficial abrasions to anterior aspect that are hemostatic NEUROLOGIC: Alert and oriented x 4. Strength and sensation to light touch were grossly intact x 4. Course Course Course Narrative: 60-year-old male with history and clinical presentation of significant alcohol dependence and recurrent intoxication. Unfortunately, this gentleman has gone through multiple rehab facilities and would likely benefit from a Section 35 as he has been seen approximately 8 times in 1 month. Patient is now requesting to go home in is attempted to contact his son. Patient has safer at home with his son and is otherwise hemodynamically stable for discharge. MDM - Alcohol Lab Data Labs: Lab Results 02/08/21 Range/Units 00:31 COVID-19 (NELY) Negative (Negative) COVID-19 Clin Com See Note Discharge Plan Discharge Clinical Impression: Alcoholic intoxication, Alcohol dependence Patient Disposition: Home, Self-Care Instructions: Alcohol Intoxication (ED), Alcohol Dependence (ED), Alcohol Use Disorder (ED) Additional Instructions: Stop drinking and follow-up with your primary care provider in taking medications as prescribed. Prescriptions: No Action albuterol sulfate 90 mcg/actuation HFA aerosol inhaler 2 puff inhalation Q4-6H PRN (Reason: Wheezing) RF: 0 melatonin 5 mg tablet 1 tab PO BEDTIME PRN (Reason: Insomnia) RF: 0 Eliquis 5 mg tablet 1 tab PO BID RF: 0 acamprosate 333 mg tablet,delayed release (DR/EC) 2 tab PO TID RF: 0 cholecalciferol (vitamin D3) 50 mcg (2,000 unit) tablet 1 tab PO DAILY RF: 0 docusate sodium [DOK] 100 mg capsule 1 cap PO BID RF: 0 Combivent Respimat 20-100 mcg/actuation mist 1 puff inhalation QID RF: 0
[2021-02-08 00:55] LABS: COVID-19 Test Negative (Negative); IDNOW Serial# 9DD0AD1C
--- NOTE | 2021-02-08 01:58 | MHC.CARE ---
CARE team met with pt who is familiar to this appeals writer and ED. [facility] requesting to return. Pt's son was present as pt called him to pick him up. Pt's son voices frustrations to this appeals writer that pt goes to detox for one day and then comes home and drinks . Pt reports It's because I am uncomfortable so I leave . T/W validated pt, but also discussed that he will be uncomfortable anywhere he goes. Pt reports his plan is to d/c home and call his therapist. Pt reports he has been an alcoholic since I was 18 . Pt and son have a challenging relationship due to pt's drinking. Pt's son requests recovery contacts so that he can follow up with his father. This appeals writer discussed a section 35 with pt's son.
--- NOTE | 2021-02-08 02:13 | PC.NURSE ---
I assumed care of this pt at 0015. The pt has been resting in a hallway stretcher, repeatedly yelling out to staff members about needing to use the phone and feeling ignored and upset that he is in the hallway. Multiple staff members attempted to explain to Edgardo what was happening and why he was in the martin yet he continued to express his disappointment loudly. The pt admits to drinking alcohol this morning (morning of 02/07). There are no tremors, no diaphoresis, no hallucinations. Speech is clear and appropriate. No chest pain. Respirations non-labored. Pt denies SI/HI. Pt requested we phone his son and ask him to pick the pt up. The pts son has come to the ED to take the pt home. The pt ambulated out of the ED with his son with steady gait.
== END 2021-02-08 02:17 | disposition home or self-care (01) ==
PROVIDERS: Emergency Provider Student in an Organized Health Care Education/Training Program
DX: F10.229 Alcohol dependence with intoxication, unspecified (principal); Y90.9 Presence of alcohol in blood, level not specified; Z20.822 Contact with and (suspected) exposure to COVID-19; Z79.899 Other long term (current) drug therapy
CPT/HCPCS: 36415; 87635; 99283

== ENCOUNTER 2021-02-16 00:16 | Emergency (ER) | payer OTHER, SELFPAY ==
[2021-02-16 00:23] VITALS: BP 91/45; PULSE 86; RESP 18; TEMP 36.8; O2SAT 95; BMI 21.4
--- NOTE | 2021-02-16 01:21 | ED_ITS ---
HPI - Alcohol General Chief Complaint: ETOH/Substance Use Stated Complaint: PSYCH EVAL,ETOH USE Time Seen by Provider: 02/16/21 01:14 Source: patient and EMS Mode of arrival: EMS Limitations: no limitations History of Present Illness HPI narrative: Patient comes emergency room complaining of alcohol intoxication and seeking detox. Patient has been seen 14 times in the last 6 months for the same complaint. Patient keeps going to different rehabs but keeps relapsing. Patient denies suicidal or homicidal ideation. Patient voices no other complaint or concern. Related Data Home Medications Medication Instructions Recorded Confirmed albuterol sulfate 90 mcg/actuation 2 puff INHALATION Q4-6H PRN 09/11/20 02/06/21 aerosol inhaler apixaban 5 mg tablet (Eliquis) 1 tab PO BID 09/11/20 01/16/21 melatonin 5 mg tablet 1 tab PO BEDTIME PRN 09/11/20 01/16/21 docusate sodium 100 mg capsule 1 cap PO BID 12/31/20 01/16/21 (DOK) ipratropium 20 mcg-albuterol 100 1 puff INHALATION QID 12/31/20 01/16/21 mcg/actuation mist for inhalation (Combivent Respimat) acamprosate 333 mg tablet,delayed 2 tab PO TID 01/13/21 02/06/21 release cholecalciferol (vitamin D3) 50 1 tab PO DAILY 01/13/21 01/16/21 mcg (2,000 unit) tablet Allergies Allergy/AdvReac Type Severity Reaction Status Date / Time Peanut Butter Allergy Facial Verified 02/05/21 22:58 Swelling raspberry Allergy Facial Verified 02/05/21 22:58 Swelling Review of Systems Review of Systems: Constitutional : No Weight loss, No Fever, No Chills, No Night Sweats, No Fatigue, No Malaise ENT/Mouth : No Hearing loss, No Ear Pain, No Nasal Congestion, No Sinus Pain, No Hoarseness, No sore throat, No Rhinorrhea, No Swallowing Difficulty Eyes: No Eye Pain, No Swelling, No Redness, No Foreign Body, No Discharge, No Vision Changes Cardiovascular : No Chest Pain, No SOB, No Dyspnea on Exertion, No Orthopnea, No Edema, No Palpitations Respiratory : No Cough, No Sputum, No Wheezing, No Smoke Exposure, No Dyspnea Gastrointestinal : No Nausea, No Vomiting, No Diarrhea, No Constipation, No abdominal Pain, No Hematochezia, No Melena Genitourinary : no irregular bleeding, No Dysuria, No Urinary Frequency, No Hematuria, No Urinary Incontinence, No Urgency, No Flank Pain, No Urinary Flow Changes, No Hesitancy Musculoskeletal : No joint pain, No Myalgias, No Joint Swelling Skin : No Skin Lesions, No rash Neuro : No Weakness, No Numbness, No Paresthesias, No Loss of Consciousness, No Dizziness, No Headache Psych : No Anxiety/Panic, No Depression, No SI/HI/AH/VH, No Social Issues, Heme/Lymph: No Bruising, No Bleeding,No Lymphadenopathy Endocrine : No Polyuria, No Polydipsia, No Temperature Intolerance [facility] Past Medical History Medical History Afib Alcohol abuse Asthma COPD (chronic obstructive pulmonary disease) Neuropathy Social History Social History Alcohol intake: current Alcohol intake frequency: 3 or more drinks per day Alcohol type: beer, wine and hard liquor Patient Tobacco Use Status: Current everyday Tobacco user Substance Use Type: Marijuana Physical Exam Vital Signs: Vital Signs: Last Vital Signs Temp 98.2 F 02/16/21 00:23 Pulse 86 02/16/21 00:23 Resp 18 02/16/21 00:23 BP 91/45 L 02/16/21 00:23 Pulse Ox 95 02/16/21 00:23 BMI result Body Mass Index 21.4 Const: Other: Appearance: Alert. Oriented X3. No acute distress. Eyes: Pupils equal, round and reactive to light. ENT: Pharynx normal. Neck: Normal inspection. Neck supple. No lymph nodes noted. No crepitus CVS: Normal heart rate and rhythm. Pulses normal. Normal S1 and S2 Respiratory: No respiratory distress. Breath sounds normal. No Wheezing. No rales Abdomen: Soft and nontender. No rigidity. No distention. good BS x4 Skin: Skin warm and dry. Normal skin color. Normal skin turgor. Extremities: Moves all extremities No Lacerations. No Rash Neuro: Oriented X 3. No motor deficit. No sensory deficit. Moving all extermities. No slurred speech. Cranial nerves 2-12 grossly intact Psych: Calm, cooperative, normal speech Course Course Course Narrative: Patient will be seen by care team [facility]. Alcohol levels pending. Physician observation started at 01:23. Sign-out given to Dr. Hill Discharge Plan Discharge Clinical Impression: Alcohol dependence Patient Disposition: Still a Patient Prescriptions: No Action albuterol sulfate 90 mcg/actuation HFA aerosol inhaler 2 puff inhalation Q4-6H PRN (Reason: Wheezing) RF: 0 melatonin 5 mg tablet 1 tab PO BEDTIME PRN (Reason: Insomnia) RF: 0 Eliquis 5 mg tablet 1 tab PO BID RF: 0 acamprosate 333 mg tablet,delayed release (DR/EC) 2 tab PO TID RF: 0 cholecalciferol (vitamin D3) 50 mcg (2,000 unit) tablet 1 tab PO DAILY RF: 0 docusate sodium [DOK] 100 mg capsule 1 cap PO BID RF: 0 Combivent Respimat 20-100 mcg/actuation mist 1 puff inhalation QID RF: 0
[2021-02-16 01:34] LABS: Ethanol 235 mg/dL
[2021-02-16 01:41] LABS: Amphetamine Screen Urine Not Detected (Not Detect); Barbiturates, Urine POSITIVE (Not Detect); Benzodiazepines Screen Urine POSITIVE (Not Detect); Cannabinoid Screen Urine POSITIVE (Not Detect); Cocaine Screen Urine Not Detected (Not Detect); Fentanyl, urine Not Detected (Not Detect); Opiate Screen Urine Not Detected (Not Detect); Phencyclidine Screen Urine Not Detected (Not Detect)
[2021-02-16 01:49] LABS: COVID-19 Test Negative (Negative)
--- NOTE | 2021-02-16 06:07 | PC.NURSE ---
Patient slept well, no distress observed/reported, asymptomatic of withdrawal at this time, med rec completed/ pending provider's approval, Hypotensive, patient will be assessed by recovery auditor in the morning fro detox help, behavior appropriate, will continue to monitor.
[2021-02-16 06:22] VITALS: BP 92/57; PULSE 80; RESP 18; TEMP 36.5; O2SAT 93
--- NOTE | 2021-02-16 06:56 | PC.NURSE ---
patient appears to reamin at rest at prsent respirations are even and unlabored, patient appears in no distress
--- NOTE | 2021-02-16 13:30 | MHC.CARE ---
CARE Team met with Pt to provide recovery support. Pt reported he did not think detox would take him back as he left multiple times recently AMA. CARE Team offered to assist Pt in finding a detox placement and accessing recovery support. Pt declined this stating I know how to get into programs. Pt is asking to be discharged. Provider notified
== END 2021-02-16 14:23 | disposition home or self-care (01) ==
PROVIDERS: Emergency Provider Emergency Medicine
DX: F10.220 Alcohol dependence with intoxication, uncomplicated (principal); Y90.7 Blood alcohol level of 200-239 mg/100 ml; Z20.822 Contact with and (suspected) exposure to COVID-19; F12.90 Cannabis use, unspecified, uncomplicated; I48.91 Unspecified atrial fibrillation; F17.200 Nicotine dependence, unspecified, uncomplicated; Z79.01 Long term (current) use of anticoagulants
CPT/HCPCS: 36415; 80307; 82077; 87635; 99284

== ENCOUNTER 2021-02-16 22:17 | Emergency (ER) | payer OTHER, SELFPAY ==
--- NOTE | 2021-02-16 22:15 | ED_ITS ---
HPI - Psych General Chief Complaint: ETOH/Substance Use Stated Complaint: CRISIS Time Seen by Provider: 02/16/21 22:21 Source: patient Mode of arrival: ambulatory Limitations: no limitations History of Present Illness HPI Narrative: Patient alcoholic was here last night been here multiple times requesting to go to detox but whenever he goes to detox goes against medical advise was admitted to detox last week states there for 1 day and next day left against medical advice patient drinks whiskey about 2 pints a day and has been drinking for a long time denies any depression or suicidal ideation Related Data Home Medications Medication Instructions Recorded Confirmed acamprosate 333 mg tablet,delayed 2 tab PO TID 02/16/21 02/16/21 release clonidine HCl 0.1 mg tablet 1 tab PO TID 02/16/21 02/16/21 hydroxyzine HCl 50 mg tablet 1 tab PO TID 02/16/21 02/16/21 Allergies Allergy/AdvReac Type Severity Reaction Status Date / Time Peanut Butter Allergy Facial Verified 02/05/21 22:58 Swelling raspberry Allergy Facial Verified 02/05/21 22:58 Swelling Review of Systems Review of Systems: Yes all other systems are reviewed and are negative [facility] Past Medical History Medical History Afib Alcohol abuse Asthma COPD (chronic obstructive pulmonary disease) Neuropathy Social History Social History Alcohol intake: current Alcohol intake frequency: 3 or more drinks per day Alcohol type: beer, wine and hard liquor Patient Tobacco Use Status: Current everyday Tobacco user Substance Use Type: Marijuana Advance Directives: No Advance Directives Information Provided: Yes Physical Exam Vital Signs: Vital Signs: Last Vital Signs Temp 98.9 F 02/17/21 02:00 Pulse 78 02/17/21 02:00 Resp 16 02/17/21 02:00 BP 98/72 02/17/21 02:00 Pulse Ox 97 02/17/21 02:00 BMI result Body Mass Index 21.4 Appearance: Alert. Oriented X3. dishevelled Eyes: No pallor or icterus ENT: Pharynx normal. Oral Mucosa moist Neck: Normal inspection. Neck supple. CVS: Normal heart rate and rhythm. Pulses normal. Respiratory: No respiratory distress. Equal air entry bilateral, Abdomen: Soft and nontender. Skin: Skin warm and dry. Normal skin color. Normal skin turgor. Extremities: No lower extremity edema. No calf tenderness Neuro: Oriented X 3. No motor deficit. No sensory deficit.No cerebellar signs , cranial nerves II-XII intact MDM - Psych MDM Narrative Medical decision making narrative: Patient to be re-evaluated in the morning for detox placement Medical Records Attestation: I reviewed the patient's medical records. Lab Data Attestation: I reviewed the patient's lab results. Labs: Lab Results 02/16/21 02/16/21 02/17/21 Range/Units 22:31 23:55 03:33 Urine Opiates Screen Not Detected (Not Detect) Urine Fentanyl Screen Not Detected (Not Detect) Ur Barbiturates Screen POSITIVE H (Not Detect) Ur Phencyclidine Scrn Not Detected (Not Detect) Ur Amphetamines Screen Not Detected (Not Detect) U Benzodiazepines Scrn POSITIVE H (Not Detect) Urine Cocaine Screen Not Detected (Not Detect) U Marijuana (THC) Screen POSITIVE H (Not Detect) Ethyl Alcohol 216 mg/dL COVID-19 (NELY) Negative (Negative) COVID-19 Clin Com See Note Discharge Plan Discharge Clinical Impression: Alcohol abuse Prescriptions: No Action clonidine HCl 0.1 mg tablet 1 tab PO TID RF: 0 hydroxyzine HCl 50 mg tablet 1 tab PO TID RF: 0 acamprosate 333 mg tablet,delayed release (DR/EC) 2 tab PO TID RF: 0
[2021-02-16 22:21] VITALS: BP 90/56; PULSE 77; RESP 18; TEMP 37.2; O2SAT 95; BMI 21.4
[2021-02-16 22:54] LABS: COVID-19 Test Negative (Negative)
[2021-02-17 00:17] LABS: Ethanol 216 mg/dL
[2021-02-17 02:00] VITALS: BP 98/72; PULSE 78; RESP 16; TEMP 37.2; O2SAT 97
[2021-02-17 03:53] LABS: Amphetamine Screen Urine Not Detected (Not Detect); Barbiturates, Urine POSITIVE (Not Detect); Benzodiazepines Screen Urine POSITIVE (Not Detect); Cannabinoid Screen Urine POSITIVE (Not Detect); Cocaine Screen Urine Not Detected (Not Detect); Fentanyl, urine Not Detected (Not Detect); Opiate Screen Urine Not Detected (Not Detect); Phencyclidine Screen Urine Not Detected (Not Detect)
--- NOTE | 2021-02-17 06:06 | PC.NURSE ---
Patient slept through he night, up between 0300 and 0400, no distress observed/reported, asymptomatic of withdrawal at this time, med rec completed/pending providers approval, VS at baseline, diving coach will see the patient for possible detox help, will continue to monitor.
--- NOTE | 2021-02-17 07:21 | PC.NURSE ---
pt given breakfast tray, sitting at bedside tolerating meal. no distress noted. calm/cooperative at this time.
== END 2021-02-17 08:11 | disposition home or self-care (01) ==
PROVIDERS: Emergency Provider Internal Medicine
DX: F10.120 Alcohol abuse with intoxication, uncomplicated (principal); Y90.7 Blood alcohol level of 200-239 mg/100 ml; Z20.822 Contact with and (suspected) exposure to COVID-19; F12.90 Cannabis use, unspecified, uncomplicated; I48.91 Unspecified atrial fibrillation; Z79.01 Long term (current) use of anticoagulants
CPT/HCPCS: 36415; 80307; 82077; 87635; 99284

== ENCOUNTER 2021-04-16 14:19 | Emergency (ER) | payer OTHER, SELFPAY ==
--- NOTE | 2021-04-16 14:26 | ED.ALCOHOL ---
HPI - Alcohol General Chief Complaint: ETOH/Substance Use Stated Complaint: ETOH,SEEKING DETOX Time Seen by Provider: 04/16/21 14:26 Source: patient and old records reviewed Mode of arrival: EMS Limitations: no limitations History of Present Illness MD complaint: alcohol dependence and desires rehab Last drink: Hours (ago) Chronic alcohol use: Yes Previous visits for alcohol intoxication: Yes Recent trauma: No Associated symptoms: denies other symptoms Treatments prior to arrival: none Related Data Home Medications Medication Instructions Recorded Confirmed acamprosate 333 mg tablet,delayed 2 tab PO TID 02/16/21 02/16/21 release clonidine HCl 0.1 mg tablet 1 tab PO TID 02/16/21 02/16/21 hydroxyzine HCl 50 mg tablet 1 tab PO TID 02/16/21 02/16/21 Allergies Allergy/AdvReac Type Severity Reaction Status Date / Time Peanut Butter Allergy Facial Verified 02/05/21 22:58 Swelling raspberry Allergy Facial Verified 02/05/21 22:58 Swelling Review of Systems Review of Systems: Constitutional : No Weight loss, No Fever, No Chills, No Fatigue, No Malaise ENT/Mouth : No sore throat, No Rhinorrhea Eyes: No Eye Pain, No Swelling, No Redness Cardiovascular : No Chest Pain, No SOB, No Dyspnea on Exertion, No Orthopnea, No Edema, No Palpitations Respiratory : No Cough, No Sputum, No Wheezing Gastrointestinal : No Nausea, No Vomiting, No Diarrhea, No Constipation, No abdominal Pain, No Hematochezia, No Melena Genitourinary : No Dysuria, No Urinary Frequency, No Hematuria, Musculoskeletal : No joint pain, No Myalgias, No Joint Swelling Skin : No Skin Lesions, No rash Neuro : No Weakness, No Numbness, No Dizziness, No Headache Psych : pos Anxiety/Panic, No Depression Heme/Lymph: No Bruising, No Bleeding,No Lymphadenopathy Endocrine : No Polyuria, No Polydipsia All other systems reviewed and are negative PMFSH Past Medical History Attestation statement: The following information was validated with the patient. Medical History Afib Alcohol abuse Asthma COPD (chronic obstructive pulmonary disease) Neuropathy Social History Social History Alcohol intake: current Alcohol intake frequency: 3 or more drinks per day Alcohol type: beer Patient Tobacco Use Status: Current everyday Tobacco user Substance Use Type: Marijuana Advance Directives: No Advance Directives Information Provided: Yes Physical Exam ED Vital Signs: Vital Signs - 24 hr 04/16/21 14:38 Temperature 98 F Pulse Rate 76 Respiratory Rate 18 Blood Pressure 124/72 Pulse Oximetry 97 BMI result Body Mass Index 22.7 Appearance: Alert. Oriented X3. No acute distress. ETOH odor Eyes: Pupils equal, round and reactive to light. ENT: Pharynx normal. Neck: Normal inspection. Neck supple. CVS: Normal heart rate and rhythm. Pulses normal. Respiratory: No respiratory distress. Breath sounds normal. Abdomen: Soft and non-tender. Skin: Skin warm and dry. Normal skin color. Normal skin turgor. Extremities: No lower extremity edema. No calf ttp Neuro: Oriented X 3. No motor deficit. No sensory deficit. Course Course Course Narrative: signed out pending workup to Dr. Barrios [facility] - Alcohol [facility] Narrative Medical decision making narrative: 60 yo male with hx of afib, ETOH abuse here with visit requesting help with detox at this time no medical complaints just requesting we help him get into detox for ETOH, no SI Lab Data Labs: Lab Results 04/16/21 Range/Units 14:39 Ethyl Alcohol 268 mg/dL Discharge Plan Discharge Clinical Impression: Alcohol abuse Patient Disposition: Still a Patient Prescriptions: No Action clonidine HCl 0.1 mg tablet 1 tab PO TID 0RF hydroxyzine HCl 50 mg tablet 1 tab PO TID 0RF acamprosate 333 mg tablet,delayed release (DR/EC) 2 tab PO TID 0RF
[2021-04-16 14:28] VITALS: BP 133/82; O2SAT 98
[2021-04-16 14:38] VITALS: BP 124/72; PULSE 76; RESP 18; TEMP 36.6; O2SAT 97; BMI 22.7
[2021-04-16 15:05] LABS: Ethanol 268 mg/dL
--- NOTE | 2021-04-16 15:13 | MHC.CARE ---
CARE Team social work internet consultant met with patient. Patient reports that he is struggling with alcohol use and would like to go to detox. He denied other drug use. Pt. reports that he is motivated to go to detox. CARE Team will look for detox for this patient.
--- NOTE | 2021-04-16 16:30 | MHC.CARE ---
CARE team met with pt to start detox bedsearch. Pt reports that he just left [place] 30 day detox yesterday [place], his son picked him up and he drank again. He presented to the ED seeking detox. Pt reports that he no longer wants detox and requests to go home. CARE team is coordinating a lyft for pt at this time.
[2021-04-16 16:33] LABS: COVID-19 Test Negative (Negative); IDNOW Serial# 9DD0AD1C
[2021-04-16 17:27] LABS: Alanine Aminotransferase 8 U/L (0-40); Albumin Level 4.3 g/dL (3.5-5.0); Alkaline Phosphatase 105 U/L (39-117); Anion Gap 13 (12-20); Aspartate Amino Transferase 18 U/L (5-37); Bilirubin Direct 0.2 mg/dL (0.0-0.5); Bilirubin Total 0.2 mg/dL (0.0-1.0); Blood Urea Nitrogen 19 mg/dL (9-16); Carbon Dioxide 26 mmol/L (22-29); Chloride 106 mmol/L (96-108); Creatinine Clr Calc Pharmacy 82.1; Estimated Glomerular Filt Rate > 60; Glucose Random 94 mg/dL (60-115); Potassium 4.2 mmol/L (3.3-5.1); Sodium 141 mmol/L (135-145); Total Protein 7.8 g/dL (6.5-8.0)
== END 2021-04-16 16:37 | disposition home or self-care (01) ==
PROVIDERS: Emergency Provider Emergency Medicine
DX: F10.10 Alcohol abuse, uncomplicated (principal); Y90.8 Blood alcohol level of 240 mg/100 ml or more; Z20.822 Contact with and (suspected) exposure to COVID-19; I48.91 Unspecified atrial fibrillation; F17.200 Nicotine dependence, unspecified, uncomplicated
CPT/HCPCS: 36415; 80048; 80076; 82077; 83735; 87635; 99283

== ENCOUNTER 2021-04-21 09:04 | Emergency (ER) | payer OTHER, SELFPAY ==
--- NOTE | ~2021-04-21 | XR_ITS ---
EXAMINATION: RIGHT HIP AND RIGHT KNEE. CLINICAL INFORMATION: Right hip and right knee pain COMPARISON: None TECHNIQUE: 3 views AP pelvis and right hip. 5 views right knee. FINDINGS: AP PELVIS: There is normal symmetry of bilateral hip joints and SI joints. No visible acute fracture, dislocation or subluxation seen. No bony erosive changes. There is no sclerosis the soft tissues are normal. RIGHT HIP: 2 views right hip reveal no bony erosive changes. No acute fracture or dislocation. The soft tissues are normal. RIGHT KNEE: The tricompartment joint space is normal. No visible acute fracture, dislocation or subluxation seen. No bony erosive changes. No abnormal suprapatellar joint effusion. XR/XR knee RT 4V IMPRESSION: Unremarkable AP pelvis and right hip exam. Mild degenerative changes patellofemoral and medial compartment joint space
--- NOTE | ~2021-04-21 | XR_ITS ---
EXAMINATION: XR SHOULDER, LEFT CLINICAL INFORMATION: Shoulder pain after fall COMPARISON: None TECHNIQUE: Three views of the left shoulder. XR/XR shoulder LT min 2V FINDINGS/IMPRESSION: Some mild degenerative changes are present at the glenohumeral humeral joint with some mild inferior glenoid osteophytes. No significant joint space narrowing is seen. There is no fracture or dislocation. Some sclerotic changes are present in the greater tuberosity which may be secondary to rotator cuff disease.
--- NOTE | ~2021-04-21 | CT_ITS ---
EXAMINATION: CT HEAD WITHOUT CONTRAST CLINICAL INFORMATION: Fall. COMPARISON: CT brain 01/28/2021 TECHNIQUE: Contiguous axial imaging was performed from the skull base to vertex without intravenous administration of contrast. This CT examination was performed using dose optimization techniques as appropriate, variously including the following: *Automated exposure control *Adjustment of mA and/or kV according to patient size (this includes techniques or standardized protocols for targeted exams where dose is matched to indication/reason for exam; i.e. extremities or head) *Use of iterative reconstruction technique DLP: 654 mGy-cm FINDINGS: There is a right frontal craniectomy defect with hypodensity along the right inferior frontal lobe likely encephalomalacia from previous surgery. There is no acute infarction evolution. There is no acute intra-axial, extra cerebral bleed, masses, new edema or midline shift. Bone windows reveal no calvarial abnormality. There is no scalp soft tissue swelling. Bilateral paranasal sinuses and mastoid air cells are well-aerated. CT/CT head/brain wo con IMPRESSION: No acute intracranial process seen. 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 No recurrent mass, edema or midline shift seen.
--- NOTE | ~2021-04-21 | XR_ITS ---
EXAMINATION: RIGHT HIP AND RIGHT KNEE. CLINICAL INFORMATION: Right hip and right knee pain COMPARISON: None TECHNIQUE: 3 views AP pelvis and right hip. 5 views right knee. FINDINGS: AP PELVIS: There is normal symmetry of bilateral hip joints and SI joints. No visible acute fracture, dislocation or subluxation seen. No bony erosive changes. There is no sclerosis the soft tissues are normal. RIGHT HIP: 2 views right hip reveal no bony erosive changes. No acute fracture or dislocation. The soft tissues are normal. RIGHT KNEE: The tricompartment joint space is normal. No visible acute fracture, dislocation or subluxation seen. No bony erosive changes. No abnormal suprapatellar joint effusion. XR/XR hip RT w [id number] IMPRESSION: Unremarkable AP pelvis and right hip exam. Mild degenerative changes patellofemoral and medial compartment joint space
--- NOTE | 2021-04-21 09:38 | ED_ITS ---
HPI - Fall General Chief Complaint: ETOH/Substance Use Stated Complaint: RIGHT LEG PAIN S/P FALL Time Seen by Provider: 04/21/21 09:37 Source: patient Mode of arrival: ambulatory History of Present Illness HPI Narrative: poor historian complaint: fall Onset (ago): day(s) (1) Fall from: standing Fall witnessed: no Place fall occurred: home Loss of consciousness: none Prolonged down time: no Symptoms prior to fall: none Context: tripped/slipped and alcohol use Location of injury: pelvis (right hip) Location of injury - extremities: right: knee Severity: mild Quality: aching Associated symptoms (after fall): other (desire alcohol rehab) Related Data Home Medications Medication Instructions Recorded Confirmed acamprosate 333 mg tablet,delayed 2 tab PO TID 02/16/21 02/16/21 release clonidine HCl 0.1 mg tablet 1 tab PO TID 02/16/21 02/16/21 hydroxyzine HCl 50 mg tablet 1 tab PO TID 02/16/21 02/16/21 Allergies Allergy/AdvReac Type Severity Reaction Status Date / Time Peanut Butter Allergy Facial Verified 02/05/21 22:58 Swelling raspberry Allergy Facial Verified 02/05/21 22:58 Swelling Review of Systems Review of Systems: Constitutional : No Fever, No Chills ENT/Mouth : No Ear Pain, No Hoarseness, No sore throat Eyes: No Eye Pain, No Swelling, No Redness, No Foreign Body Cardiovascular : No Chest Pain, No SOB Respiratory : No Cough, No Dyspnea Gastrointestinal : No Nausea, No Vomiting, No Diarrhea, No abdominal Pain Genitourinary : No Dysuria, No Hematuria Musculoskeletal : positive joint pain, No Myalgias, No Joint Swelling Skin : No Skin lacerations, No rash Neuro : No Weakness, No Numbness, No Loss of Consciousness, No Dizziness, No Headache Psych : No Anxiety/Panic, No Depression Heme/Lymph: no easy bruising, no Lymphadenopathy Endocrine : No Polyuria, No Polydipsia All other systems reviewed and are negative [facility] Past Medical History Attestation statement: The following information was validated with the patient. Medical History Afib Alcohol abuse Asthma COPD (chronic obstructive pulmonary disease) Neuropathy Social History Social History Alcohol intake: current Alcohol intake frequency: 3 or more drinks per day Alcohol type: beer Patient Tobacco Use Status: Current everyday Tobacco user Substance Use Type: Marijuana Advance Directives: Yes Advance Directives Information Provided: No Advance Directives on File: No Physical Exam Vital Signs: Vital Signs: Last Vital Signs Temp 98.0 F 04/21/21 10:20 Pulse 103 H 04/21/21 10:20 Resp 14 04/21/21 10:20 BP 131/77 04/21/21 10:20 Pulse Ox 97 04/21/21 10:20 BMI result Body Mass Index 21.4 Appearance: Alert. Oriented X3. No acute distress. Eyes: Pupils equal, round and reactive to light. Atraumatic ENT: Pharynx normal. Neck: Normal inspection. Neck supple. CVS: Normal heart rate and rhythm. Pulses normal. Respiratory: No respiratory distress. Breath sounds normal. Abdomen: Soft and non-tender. Skin: Skin warm and dry. Normal skin color. Normal skin turgor. Extremities: No lower extremity edema. R knee old bruise noted full ROM, R hip pain but no contusion noted and full ROM Neuro: Oriented X 3. No motor deficit. No sensory deficit. Course Course Course Narrative: negative workup for falls related to trauma Patient placed in physician observation at 1136am. Medically cleared from falls. The indication for observation is that the patient needs more time to see CARE team in regards to his desire for ETOH abuse. At this time the patient is calm and cooperative, lungs clear, CV RRR, abd nontender, neuro is intact. Physician observation ended at 1214pm. Now refusing assistance from CARE team states he has a plan with [facility] - [facility] wants to go home, declining help. steady gait stable for DC MDM - Fall MDM Narrative Medical decision making narrative: 60 yo male with hx of ETOH abuse and afib on eliquis with hx of falls - here with c/o another fall yesterday denies head injury then starts telling me 2 months ago he had a fall with small ICH but still is on his eliquis - at this time xrays of R knee and R hip ordered, CT head, basic labs then possible detox consult Lab Data Result diagrams: 04/21/21 10:55 04/21/21 10:55 Labs: Lab Results 02/04/21/21 04/21/21 Range/Units 10:55 10:55 10:55 WBC 10.2 (4.8-10.8) X10*3/uL RBC 4.11 L (4.60-5.80) X10*6/uL Hgb 11.3 L (14.0-18.0) g/dl Hct 34.1 L (42.0-52.0) % MCV 83.0 (80.0-98.0) fL MCH 27.5 (27.0-33.0) pg MCHC 33.1 (31.0-36.0) g/dl RDW 15.8 (11.0-16.0) % Plt Count 152 L (160-400) X10*3/uL MPV 9.1 L (9.4-12.4) fL Immature Gran % (Auto) 0.3 (0.0-0.4) % Neut % (Auto) 80.2 H (45-73) % Lymph % (Auto) 13.3 L (20-40) % Shelby % (Auto) 5.4 (2-11) % Eos % (Auto) 0.3 (0-4) % Baso % (Auto) 0.5 (0-2) % Lymph # (Auto) 1.4 (1.2-4.9) X10*3/uL Shelby # (Auto) 0.6 (0.1-1.2) X10*3/uL Eos # (Auto) 0.0 (0.0-0.4) X10*3/uL Baso # (Auto) 0.1 (0.0-0.2) X10*3/uL Abs Immat Gran (auto) 0.03 (0.00-0.03) X10*3/uL Absolute Neuts (auto) 8.2 (2.0-8.3) x10*3/uL Absolute Nucleated RBC 0.000 (0.0-0.012) X10*3/uL Nucleated RBC % (auto) 0.0 (0.0-0.2) /100WBC PT 15.2 H (9.9-13.0) SEC INR 1.3 H (0.9-1.1) Sodium 140 (135-145) mmol/L Potassium 4.4 (3.3-5.1) mmol/L Chloride 104 (96-108) mmol/L Carbon Dioxide 21 L (22-29) mmol/L Anion Gap 19 (12-20) BUN 16 (9-16) mg/dL Creatinine 0.74 (0.5-1.4) mg/dL Estim Creat Clear Calc 98.7 Estimated GFR > 60 Random Glucose 83 (60-115) mg/dL Calcium 9.2 (8.4-10.2) mg/dL Magnesium 1.7 (1.6-2.6) mg/dL Ethyl Alcohol mg/dL COVID-19 ([facility]) (Negative) COVID-19 Clin Com 04/21/21 04/21/21 Range/Units 10:55 10:55 WBC (4.8-10.8) X10*3/uL RBC (4.60-5.80) X10*6/uL Hgb (14.0-18.0) g/dl Hct (42.0-52.0) % MCV (80.0-98.0) fL MCH (27.0-33.0) pg MCHC (31.0-36.0) g/dl RDW (11.0-16.0) % Plt Count (160-400) X10*3/uL MPV (9.4-12.4) fL Immature Gran % (Auto) (0.0-0.4) % Neut % (Auto) (45-73) % Lymph % (Auto) (20-40) % Shelby % (Auto) (2-11) % Eos % (Auto) (0-4) % Baso % (Auto) (0-2) % Lymph # (Auto) (1.2-4.9) X10*3/uL Shelby # (Auto) (0.1-1.2) X10*3/uL Eos # (Auto) (0.0-0.4) X10*3/uL Baso # (Auto) (0.0-0.2) X10*3/uL Abs Immat Gran (auto) (0.00-0.03) X10*3/uL Absolute Neuts (auto) (2.0-8.3) x10*3/uL Absolute Nucleated RBC (0.0-0.012) X10*3/uL Nucleated RBC % (auto) (0.0-0.2) /100WBC PT (9.9-13.0) SEC INR (0.9-1.1) Sodium (135-145) mmol/L Potassium (3.3-5.1) mmol/L Chloride (96-108) mmol/L Carbon Dioxide (22-29) mmol/L Anion Gap (12-20) BUN (9-16) mg/dL Creatinine (0.5-1.4) mg/dL Estim Creat Clear Calc Estimated GFR Random Glucose (60-115) mg/dL Calcium (8.4-10.2) mg/dL Magnesium (1.6-2.6) mg/dL Ethyl Alcohol 102 mg/dL COVID-19 ([facility]) Negative (Negative) COVID-19 Clin Com See Note Discharge Plan Discharge Clinical Impression: Alcohol abuse Patient Disposition: Home, Self-Care Instructions: Alcohol Use Disorder (ED) Additional Instructions: return to ED for any worsening symptoms or concerns please follow up with [facility] it is very concerning that with your alcohol abuse and reported falls that you use blood thinners if you fall and hit your head this could be life threatening and lead to bleeding in your brain please talk to your primary care provider xrays and CT head negative for trauma today Prescriptions: No Action clonidine HCl 0.1 mg tablet 1 tab PO TID 0RF hydroxyzine HCl 50 mg tablet 1 tab PO TID 0RF acamprosate 333 mg tablet,delayed release (DR/EC) 2 tab PO TID 0RF
[2021-04-21 10:20] VITALS: BP 131/77; BP 145/80; PULSE 103; PULSE 90; RESP 14; TEMP 36.7; O2SAT 97; O2SAT 98; BMI 21.4
[2021-04-21 11:01] LABS: MANUAL DIFF FLAG NO
[2021-04-21 11:03] LABS: Basophils Absolute Auto 0.1 X10*3/uL (0.0-0.2); Basophils Percent Auto 0.5 % (0-2); Eosinophils Percent Auto 0.3 % (0-4); Hematocrit 34.1 % (42.0-52.0); Hemoglobin 11.3 g/dl (14.0-18.0); Imm Gran Abs Auto 0.03 X10*3/uL (0.00-0.03); Imm Gran Pct Auto 0.3 % (0.0-0.4); Lymphocytes Absolute Auto 1.4 X10*3/uL (1.2-4.9); Lymphocytes Percent Auto 13.3 % (20-40); Mean Corpuscular HGB Conc 33.1 g/dl (31.0-36.0); Mean Corpuscular Hemoglobin 27.5 pg (27.0-33.0); Mean Platelet Volume 9.1 fL (9.4-12.4); Monocytes Absolute Auto 0.6 X10*3/uL (0.1-1.2); Monocytes Percent Auto 5.4 % (2-11); Neutrophils Absolute Auto 8.2 x10*3/uL (2.0-8.3); Neutrophils Percent Auto 80.2 % (45-73); Platelet Count 152 X10*3/uL (160-400); Red Blood Count 4.11 X10*6/uL (4.60-5.80); Red Cell Distribution Width 15.8 % (11.0-16.0); White Blood Count 10.2 X10*3/uL (4.8-10.8)
[2021-04-21 11:09] LABS: INTERNATIONAL NORM RATIO 1.3 (0.9-1.1); Prothrombin Time 15.2 SEC (9.9-13.0)
[2021-04-21 11:21] LABS: COVID-19 Test Negative (Negative)
[2021-04-21 11:23] LABS: Ethanol 102 mg/dL
[2021-04-21 11:31] LABS: Anion Gap 19 (12-20); Blood Urea Nitrogen 16 mg/dL (9-16); Calcium 9.2 mg/dL (8.4-10.2); Carbon Dioxide 21 mmol/L (22-29); Chloride 104 mmol/L (96-108); Creatinine Clr Calc Pharmacy 98.7; Estimated Glomerular Filt Rate > 60; Glucose Random 83 mg/dL (60-115); Magnesium 1.7 mg/dL (1.6-2.6); Potassium 4.4 mmol/L (3.3-5.1); Sodium 140 mmol/L (135-145)
--- NOTE | 2021-04-21 12:39 | MHC.CM.ED ---
Cab voucher given to pt for one way transport via [employer] to his home address in [place]
--- NOTE | 2021-04-22 08:54 | MHC.RECOVRN ---
Late entry. Pt seen 04/21/21 at 11:30AM. Pt had presented to [facility] for alcohol use related falls. Had initially informed staff he would like ATS. When t/w met with pt, pt declined ATS bedsearch. Pt reports having called [facility] on 04/20 and 04/21 and is currently waiting for a bed there. T/w informed pt that bedsearch could be conducted and possibly placement at another facility. Pt declined and desires to continue calling [facility] from home. CARE Team and MD aware.
== END 2021-04-21 12:48 | disposition home or self-care (01) ==
PROVIDERS: Emergency Provider Emergency Medicine; PCP Internal Medicine
DX: F10.10 Alcohol abuse, uncomplicated (principal); M25.512 Pain in left shoulder; G44.309 Post-traumatic headache, unspecified, not intractable; M25.551 Pain in right hip; Y90.5 Blood alcohol level of 100-119 mg/100 ml; F17.200 Nicotine dependence, unspecified, uncomplicated; I48.91 Unspecified atrial fibrillation; Z20.822 Contact with and (suspected) exposure to COVID-19; Z79.899 Other long term (current) drug therapy; Z71.6 Tobacco abuse counseling; Z79.01 Long term (current) use of anticoagulants
CPT/HCPCS: 70450; 73030; 73502; 73564; 80048; 82077; 83735; 85025; 85610; 87635; 99284

== ENCOUNTER 2021-05-05 20:56 | Emergency (ER) | payer OTHER, SELFPAY ==
[2021-05-05 21:04] VITALS: BP 118/68; PULSE 101; RESP 20; TEMP 36.6; O2SAT 95; BMI 21.4
--- NOTE | 2021-05-05 21:06 | ED_ITS ---
HPI - Alcohol General Chief Complaint: ETOH/Substance Use <Hannah Le NP - Last Filed: 05/06/21 02:44> Stated Complaint: ETOH,WANTS DETOX <Hannah Le NP - Last Filed: 05/06/21 02:44> Time Seen by Provider: 05/06/21 08:36 <Hannah Le NP - Last Filed: 05/06/21 02:44> Source: patient and EMS <Hannah Le NP - Last Filed: 05/06/21 02:44> Mode of arrival: EMS <Hannah Le NP - Last Filed: 05/06/21 02:44> Limitations: no limitations <Hannah Le NP - Last Filed: 05/06/21 02:44> History of Present Illness HPI narrative: 60-year-old male presents via EMS for ETOH abuse requesting detox. <Hannah Le NP - Last Filed: 05/06/21 02:44> MD complaint: alcohol intoxication, alcohol dependence and desires rehab <Hannah Le NP - Last Filed: 05/06/21 02:44> Last drink: Just prior to admission <Hannah Le NP - Last Filed: 05/06/21 02:44> Chronic alcohol use: Yes <Hannah Le NP - Last Filed: 05/06/21 02:44> Previous visits for alcohol intoxication: Yes <Hannah Le NP - Last Filed: 05/06/21 02:44> Recent trauma: No <Hannah Le NP - Last Filed: 05/06/21 02:44> Associated symptoms: denies other symptoms <Hannah Le NP - Last Filed: 05/06/21 02:44> Treatments prior to arrival: none <Hannah Le NP - Last Filed: 05/06/21 02:44> Related Data Home Medications: Home Medications Medication Instructions Recorded Confirmed acamprosate 333 mg tablet,delayed 2 tab PO TID 02/16/21 02/16/21 release clonidine HCl 0.1 mg tablet 1 tab PO TID 02/16/21 02/16/21 hydroxyzine HCl 50 mg tablet 1 tab PO TID 02/16/21 02/16/21 <Hannah Le NP - Last Filed: 05/06/21 02:44> Allergies/Adverse Reactions: Allergies Allergy/AdvReac Type Severity Reaction Status Date / Time Peanut Butter Allergy Facial Verified 02/05/21 22:58 Swelling raspberry Allergy Facial Verified 02/05/21 22:58 Swelling <Hannah Le NP - Last Filed: 05/06/21 02:44> Review of Systems Review of Systems: Constitutional: No Fever, No Chills ENT/Mouth: No sore throat, No Rhinorrhea Eyes: No Eye Pain, No Swelling, No Redness Cardiovascular: No Chest Pain, No SOB Respiratory: No Cough, No Sputum Gastrointestinal: No Nausea, No Vomiting, No Diarrhea, No abdominal Pain Genitourinary: No Dysuria, No Hematuria Musculoskeletal: No joint pain, No Myalgias, No Joint Swelling Skin: No Skin Lesions, No rash Neuro: No Weakness, No Numbness, No Loss of Consciousness, No Dizziness, No Hea dache Psych: Positive ETOH abuse, No Anxiety, No Depression, No SI/HI/AH/VH Heme/Lymph: No Bruising, No Bleeding,No Lymphadenopathy Endocrine: No Polyuria, No Polydipsia <Hannah Le NP - Last Filed: 05/06/21 02:44> Yes all other systems are reviewed and are negative <Hannah Le NP - Last Filed: 05/06/21 02:44> [facility] Past Medical History Attestation statement: The following information was validated with the patient. <Hannah Le NP - Last Filed: 05/06/21 02:44> Source: old records reviewed <Hannah Le NP - Last Filed: 05/06/21 02:44> Medical History: Medical History Afib Alcohol abuse Asthma COPD (chronic obstructive pulmonary disease) Neuropathy <Hannah Le NP - Last Filed: 05/06/21 02:44> Social History Social History: Social History Alcohol intake: current Alcohol intake frequency: 3 or more drinks per day Alcohol type: beer Patient Tobacco Use Status: Current everyday Tobacco user Substance Use Type: Marijuana Advance Directives: No Advance Directives Information Provided: Yes <Hannah Le NP - Last Filed: 05/06/21 02:44> Physical Exam ED Vital Signs: Vital Signs - 24 hr 05/05/21 21:04 05/06/21 02:00 05/06/21 05:44 Temperature 97.8 F 97.8 F 97.8 F Pulse Rate 101 H 82 93 Respiratory Rate 20 17 18 Blood Pressure 118/68 121/73 127/76 Pulse Oximetry 95 94 98 05/06/21 10:11 Temperature 98.5 F Pulse Rate 106 H Respiratory Rate 17 Blood Pressure 135/74 Pulse Oximetry 96 BMI result Body Mass Index 21.4 <Hannah Le NP - Last Filed: 05/06/21 02:44> Vital Signs - 24 hr 05/05/21 21:04 05/06/21 02:00 05/06/21 05:44 Temperature 97.8 F 97.8 F 97.8 F Pulse Rate 101 H 82 93 Respiratory Rate 20 17 18 Blood Pressure 118/68 121/73 127/76 Pulse Oximetry 95 94 98 05/06/21 10:11 Temperature 98.5 F Pulse Rate 106 H Respiratory Rate 17 Blood Pressure 135/74 Pulse Oximetry 96 BMI result Body Mass Index 21.4 <HIMA Laureano - Last Filed: 05/06/21 14:44> Appearance: Alert. Oriented X3. No acute distress. Eyes: Pupils equal, round and reactive to light. EOMI. No nystagmus. Sclerae nonicteric. ENT: Pharynx normal. Neck: Normal inspection. Neck supple. CVS: Normal heart rate and rhythm. Pulses normal. Respiratory: No respiratory distress. Breath sounds normal. Abdomen: Soft and nontender. Skin: Skin warm and dry. Normal skin color. Normal skin turgor. Extremities: No lower extremity edema. Gait balance and coordinated with cane. Neuro: No motor deficit. No sensory deficit. No asterixis. Cranial nerves 2- 12 intact. <Hannah Le NP - Last Filed: 05/06/21 02:44> Course Course Course Narrative: 60-year-old male presents via EMS for EtOH detox. States to drink at least 2 pt per day, and has a history of withdrawal seizures in the past. Stated that he drinks as soon as he wakes up, and usually passes out nightly. Patient does not report any trauma, recent falls, or any other concerning symptoms. He does not report any suicidal or homicidal ideation, is tachycardic at this time. Will order labs, CUEVAS, EtOH, and rule out ACS. 22:40 ETOH 336, CUEVAS positive for benzodiazepines. H&H 10.8/33.2 which is consistent with his prior values. Plan of care is to continue with CIWA, Ativan as needed for withdrawal symptoms and detox/recovery consult in the morning. 01:59 physician observation started at this time. <Hannah Le NP - Last Filed: 05/06/21 02:44> Reevaluation(s) Reevaluation #1: Physician observation continued. Patient is not in any distress. Patient awaiting evaluation by motor coach driver <HIMA Laureano - Last Filed: 05/06/21 14:44> Time: 08:37 <HIMA Laureano - Last Filed: 05/06/21 14:44> MDM - Alcohol Differential Diagnosis Differential diagnosis: Likely alcohol dependence, alcohol withdrawal delirium, hypomagnesemia, alcohol intoxication and alcohol withdrawal syndrome <Hannah Le NP - Last Filed: 05/06/21 02:44> Medical Records Attestation: I reviewed the patient's medical records. <Hannah Le NP - Last Filed: 05/06/21 02:44> Lab Data Attestation: I reviewed the patient's lab results. <Hannah Le NP - Last Filed: 05/06/21 02:44> Result diagrams: : 05/05/21 22:15 05/05/21 22:15 <Hannah Le NP - Last Filed: 05/06/21 02:44> Labs: Lab Results 05/05/21 05/05/21 05/05/21 Range/Units 21:42 21:43 21:43 WBC (4.8-10.8) X10*3/uL RBC (4.60-5.80) X10*6/uL Hgb (14.0-18.0) g/dl Hct (42.0-52.0) % MCV (80.0-98.0) fL MCH (27.0-33.0) pg MCHC (31.0-36.0) g/dl RDW (11.0-16.0) % Plt Count (160-400) X10*3/uL MPV (9.4-12.4) fL Immature Gran % (Auto) (0.0-0.4) % Neut % (Auto) (45-73) % Lymph % (Auto) (20-40) % [place] % (Auto) (2-11) % Eos % (Auto) (0-4) % Baso % (Auto) (0-2) % Lymph # (Auto) (1.2-4.9) X10*3/uL [place] # (Auto) (0.1-1.2) X10*3/uL Eos # (Auto) (0.0-0.4) X10*3/uL Baso # (Auto) (0.0-0.2) X10*3/uL Abs Immat Gran (auto) (0.00-0.03) X10*3/uL Absolute Neuts (auto) (2.0-8.3) x10*3/uL Absolute Nucleated RBC (0.0-0.012) X10*3/uL Nucleated RBC % (auto) (0.0-0.2) /100WBC Sodium (135-145) mmol/L Potassium (3.3-5.1) mmol/L Chloride (96-108) mmol/L Carbon Dioxide (22-29) mmol/L Anion Gap (12-20) BUN (9-16) mg/dL Creatinine (0.5-1.4) mg/dL Estim Creat Clear Calc Estimated GFR Random Glucose (60-115) mg/dL Calcium (8.4-10.2) mg/dL Magnesium (1.6-2.6) mg/dL Total Bilirubin (0.0-1.0) mg/dL Direct Bilirubin (0.0-0.5) mg/dL AST (5-37) U/L ALT (0-40) U/L Alkaline Phosphatase (39-117) U/L Troponin I High Sens (<3.5-35.0) ng/L Total Protein (6.5-8.0) g/dL Albumin (3.5-5.0) g/dL Lipase (8-78) U/L Urine Color STRAW Urine Appearance CLEAR Urine pH 6.0 (5.0-8.0) Ur Specific [place] 1.010 (1.005-1.025) Urine Protein NEG (NEG-TRACE) MG/DL Urine Glucose (UA) NEG (NEG) MG/DL Urine Ketones NEG (NEG) MG/DL Urine Blood NEG (NEG) Urine Nitrite NEG (NEG) Ur Leukocyte Esterase NEG (NEG) Urine Opiates Screen Not Detected (Not Detect) Urine Fentanyl Screen Not Detected (Not Detect) Ur Barbiturates Screen Not Detected (Not Detect) Ur Phencyclidine Scrn Not Detected (Not Detect) Ur Amphetamines Screen Not Detected (Not Detect) U Benzodiazepines Scrn POSITIVE H (Not Detect) Urine Cocaine Screen Not Detected (Not Detect) U Marijuana (THC) Screen Not Detected (Not Detect) Ethyl Alcohol mg/dL COVID-19 (NELY) Negative (Negative) COVID-19 Clin Com See Note 05/05/21 05/05/21 05/05/21 Range/Units 22:15 22:15 22:15 WBC (4.8-10.8) X10*3/uL RBC (4.60-5.80) X10*6/uL Hgb (14.0-18.0) g/dl Hct (42.0-52.0) % MCV (80.0-98.0) fL MCH (27.0-33.0) pg MCHC (31.0-36.0) g/dl RDW (11.0-16.0) % Plt Count (160-400) X10*3/uL MPV (9.4-12.4) fL Immature Gran % (Auto) (0.0-0.4) % Neut % (Auto) (45-73) % Lymph % (Auto) (20-40) % [place] % (Auto) (2-11) % Eos % (Auto) (0-4) % Baso % (Auto) (0-2) % Lymph # (Auto) (1.2-4.9) X10*3/uL [place] # (Auto) (0.1-1.2) X10*3/uL Eos # (Auto) (0.0-0.4) X10*3/uL Baso # (Auto) (0.0-0.2) X10*3/uL Abs Immat Gran (auto) (0.00-0.03) X10*3/uL Absolute Neuts (auto) (2.0-8.3) x10*3/uL Absolute Nucleated RBC (0.0-0.012) X10*3/uL Nucleated RBC % (auto) (0.0-0.2) /100WBC Sodium 144 (135-145) mmol/L Potassium 4.5 (3.3-5.1) mmol/L Chloride 105 (96-108) mmol/L Carbon Dioxide 29 (22-29) mmol/L Anion Gap 15 (12-20) BUN 15 (9-16) mg/dL Creatinine 0.88 (0.5-1.4) mg/dL Estim Creat Clear Calc 83.0 Estimated GFR > 60 Random Glucose 108 (60-115) mg/dL Calcium 9.1 (8.4-10.2) mg/dL Magnesium 2.1 (1.6-2.6) mg/dL Total Bilirubin 0.4 (0.0-1.0) mg/dL Direct Bilirubin 0.2 (0.0-0.5) mg/dL AST 25 (5-37) U/L ALT 14 (0-40) U/L Alkaline Phosphatase 119 H (39-117) U/L Troponin I High Sens < 3.5 (<3.5-35.0) ng/L Total Protein 7.9 (6.5-8.0) g/dL Albumin 4.4 (3.5-5.0) g/dL Lipase 64 (8-78) U/L Urine Color Urine Appearance Urine pH (5.0-8.0) Ur Specific [place] (1.005-1.025) Urine Protein (NEG-TRACE) MG/DL Urine Glucose (UA) (NEG) MG/DL Urine Ketones (NEG) MG/DL Urine Blood (NEG) Urine Nitrite (NEG) Ur Leukocyte Esterase (NEG) Urine Opiates Screen (Not Detect) Urine Fentanyl Screen (Not Detect) Ur Barbiturates Screen (Not Detect) Ur Phencyclidine Scrn (Not Detect) Ur Amphetamines Screen (Not Detect) U Benzodiazepines Scrn (Not Detect) Urine Cocaine Screen (Not Detect) U Marijuana (THC) Screen (Not Detect) Ethyl Alcohol 336 H* mg/dL COVID-19 (NELY) (Negative) COVID-19 Clin Com 05/05/21 Range/Units 22:15 WBC 5.7 (4.8-10.8) X10*3/uL RBC 3.91 L (4.60-5.80) X10*6/uL Hgb 10.8 L (14.0-18.0) g/dl Hct 33.2 L (42.0-52.0) % MCV 84.9 (80.0-98.0) fL MCH 27.6 (27.0-33.0) pg MCHC 32.5 (31.0-36.0) g/dl RDW 17.7 H (11.0-16.0) % Plt Count 203 D (160-400) X10*3/uL MPV 8.4 L (9.4-12.4) fL Immature Gran % (Auto) 0.2 (0.0-0.4) % Neut % (Auto) 53.5 (45-73) % Lymph % (Auto) 37.3 (20-40) % [place] % (Auto) 7.2 (2-11) % Eos % (Auto) 0.7 (0-4) % Baso % (Auto) 1.1 (0-2) % Lymph # (Auto) 2.1 (1.2-4.9) X10*3/uL [place] # (Auto) 0.4 (0.1-1.2) X10*3/uL Eos # (Auto) 0.0 (0.0-0.4) X10*3/uL Baso # (Auto) 0.1 (0.0-0.2) X10*3/uL Abs Immat Gran (auto) 0.01 (0.00-0.03) X10*3/uL Absolute Neuts (auto) 3.0 (2.0-8.3) x10*3/uL Absolute Nucleated RBC 0.000 (0.0-0.012) X10*3/uL Nucleated RBC % (auto) 0.0 (0.0-0.2) /100WBC Sodium (135-145) mmol/L Potassium (3.3-5.1) mmol/L Chloride (96-108) mmol/L Carbon Dioxide (22-29) mmol/L Anion Gap (12-20) BUN (9-16) mg/dL Creatinine (0.5-1.4) mg/dL Estim Creat Clear Calc Estimated GFR Random Glucose (60-115) mg/dL Calcium (8.4-10.2) mg/dL Magnesium (1.6-2.6) mg/dL Total Bilirubin (0.0-1.0) mg/dL Direct Bilirubin (0.0-0.5) mg/dL AST (5-37) U/L ALT (0-40) U/L Alkaline Phosphatase (39-117) U/L Troponin I High Sens (<3.5-35.0) ng/L Total Protein (6.5-8.0) g/dL Albumin (3.5-5.0) g/dL Lipase (8-78) U/L Urine Color Urine Appearance Urine pH (5.0-8.0) Ur Specific [place] (1.005-1.025) Urine Protein (NEG-TRACE) MG/DL Urine Glucose (UA) (NEG) MG/DL Urine Ketones (NEG) MG/DL Urine Blood (NEG) Urine Nitrite (NEG) Ur Leukocyte Esterase (NEG) Urine Opiates Screen (Not Detect) Urine Fentanyl Screen (Not Detect) Ur Barbiturates Screen (Not Detect) Ur Phencyclidine Scrn (Not Detect) Ur Amphetamines Screen (Not Detect) U Benzodiazepines Scrn (Not Detect) Urine Cocaine Screen (Not Detect) U Marijuana (THC) Screen (Not Detect) Ethyl Alcohol mg/dL COVID-19 (NELY) (Negative) COVID-19 Clin Com <Hannah Le NP - Last Filed: 05/06/21 02:44> Lab Results 05/05/21 05/05/21 05/05/21 Range/Units 21:42 21:43 21:43 WBC (4.8-10.8) X10*3/uL RBC (4.60-5.80) X10*6/uL Hgb (14.0-18.0) g/dl Hct (42.0-52.0) % MCV (80.0-98.0) fL MCH (27.0-33.0) pg MCHC (31.0-36.0) g/dl RDW (11.0-16.0) % Plt Count (160-400) X10*3/uL MPV (9.4-12.4) fL Immature Gran % (Auto) (0.0-0.4) % Neut % (Auto) (45-73) % Lymph % (Auto) (20-40) % [place] % (Auto) (2-11) % Eos % (Auto) (0-4) % Baso % (Auto) (0-2) % Lymph # (Auto) (1.2-4.9) X10*3/uL [place] # (Auto) (0.1-1.2) X10*3/uL Eos # (Auto) (0.0-0.4) X10*3/uL Baso # (Auto) (0.0-0.2) X10*3/uL Abs Immat Gran (auto) (0.00-0.03) X10*3/uL Absolute Neuts (auto) (2.0-8.3) x10*3/uL Absolute Nucleated RBC (0.0-0.012) X10*3/uL Nucleated RBC % (auto) (0.0-0.2) /100WBC Sodium (135-145) mmol/L Potassium (3.3-5.1) mmol/L Chloride (96-108) mmol/L Carbon Dioxide (22-29) mmol/L Anion Gap (12-20) BUN (9-16) mg/dL Creatinine (0.5-1.4) mg/dL Estim Creat Clear Calc Estimated GFR Random Glucose (60-115) mg/dL Calcium (8.4-10.2) mg/dL Magnesium (1.6-2.6) mg/dL Total Bilirubin (0.0-1.0) mg/dL Direct Bilirubin (0.0-0.5) mg/dL AST (5-37) U/L ALT (0-40) U/L Alkaline Phosphatase (39-117) U/L Troponin I High Sens (<3.5-35.0) ng/L Total Protein (6.5-8.0) g/dL Albumin (3.5-5.0) g/dL Lipase (8-78) U/L Urine Color STRAW Urine Appearance CLEAR Urine pH 6.0 (5.0-8.0) Ur Specific [place] 1.010 (1.005-1.025) Urine Protein NEG (NEG-TRACE) MG/DL Urine Glucose (UA) NEG (NEG) MG/DL Urine Ketones NEG (NEG) MG/DL Urine Blood NEG (NEG) Urine Nitrite NEG (NEG) Ur Leukocyte Esterase NEG (NEG) Urine Opiates Screen Not Detected (Not Detect) Urine Fentanyl Screen Not Detected (Not Detect) Ur Barbiturates Screen Not Detected (Not Detect) Ur Phencyclidine Scrn Not Detected (Not Detect) Ur Amphetamines Screen Not Detected (Not Detect) U Benzodiazepines Scrn POSITIVE H (Not Detect) Urine Cocaine Screen Not Detected (Not Detect) U Marijuana (THC) Screen Not Detected (Not Detect) Ethyl Alcohol mg/dL COVID-19 (NELY) Negative (Negative) COVID-19 Clin Com See Note 05/05/21 05/05/21 05/05/21 Range/Units 22:15 22:15 22:15 WBC (4.8-10.8) X10*3/uL RBC (4.60-5.80) X10*6/uL Hgb (14.0-18.0) g/dl Hct (42.0-52.0) % MCV (80.0-98.0) fL MCH (27.0-33.0) pg MCHC (31.0-36.0) g/dl RDW (11.0-16.0) % Plt Count (160-400) X10*3/uL MPV (9.4-12.4) fL Immature Gran % (Auto) (0.0-0.4) % Neut % (Auto) (45-73) % Lymph % (Auto) (20-40) % [place] % (Auto) (2-11) % Eos % (Auto) (0-4) % Baso % (Auto) (0-2) % Lymph # (Auto) (1.2-4.9) X10*3/uL [place] # (Auto) (0.1-1.2) X10*3/uL Eos # (Auto) (0.0-0.4) X10*3/uL Baso # (Auto) (0.0-0.2) X10*3/uL Abs Immat Gran (auto) (0.00-0.03) X10*3/uL Absolute Neuts (auto) (2.0-8.3) x10*3/uL Absolute Nucleated RBC (0.0-0.012) X10*3/uL Nucleated RBC % (auto) (0.0-0.2) /100WBC Sodium 144 (135-145) mmol/L Potassium 4.5 (3.3-5.1) mmol/L Chloride 105 (96-108) mmol/L Carbon Dioxide 29 (22-29) mmol/L Anion Gap 15 (12-20) BUN 15 (9-16) mg/dL Creatinine 0.88 (0.5-1.4) mg/dL Estim Creat Clear Calc 83.0 Estimated GFR > 60 Random Glucose 108 (60-115) mg/dL Calcium 9.1 (8.4-10.2) mg/dL Magnesium 2.1 (1.6-2.6) mg/dL Total Bilirubin 0.4 (0.0-1.0) mg/dL Direct Bilirubin 0.2 (0.0-0.5) mg/dL AST 25 (5-37) U/L ALT 14 (0-40) U/L Alkaline Phosphatase 119 H (39-117) U/L Troponin I High Sens < 3.5 (<3.5-35.0) ng/L Total Protein 7.9 (6.5-8.0) g/dL Albumin 4.4 (3.5-5.0) g/dL Lipase 64 (8-78) U/L Urine Color Urine Appearance Urine pH (5.0-8.0) Ur Specific [place] (1.005-1.025) Urine Protein (NEG-TRACE) MG/DL Urine Glucose (UA) (NEG) MG/DL Urine Ketones (NEG) MG/DL Urine Blood (NEG) Urine Nitrite (NEG) Ur Leukocyte Esterase (NEG) Urine Opiates Screen (Not Detect) Urine Fentanyl Screen (Not Detect) Ur Barbiturates Screen (Not Detect) Ur Phencyclidine Scrn (Not Detect) Ur Amphetamines Screen (Not Detect) U Benzodiazepines Scrn (Not Detect) Urine Cocaine Screen (Not Detect) U Marijuana (THC) Screen (Not Detect) Ethyl Alcohol 336 H* mg/dL COVID-19 (NELY) (Negative) COVID-19 Clin Com 05/05/21 Range/Units 22:15 WBC 5.7 (4.8-10.8) X10*3/uL RBC 3.91 L (4.60-5.80) X10*6/uL Hgb 10.8 L (14.0-18.0) g/dl Hct 33.2 L (42.0-52.0) % MCV 84.9 (80.0-98.0) fL MCH 27.6 (27.0-33.0) pg MCHC 32.5 (31.0-36.0) g/dl RDW 17.7 H (11.0-16.0) % Plt Count 203 D (160-400) X10*3/uL MPV 8.4 L (9.4-12.4) fL Immature Gran % (Auto) 0.2 (0.0-0.4) % Neut % (Auto) 53.5 (45-73) % Lymph % (Auto) 37.3 (20-40) % [place] % (Auto) 7.2 (2-11) % Eos % (Auto) 0.7 (0-4) % Baso % (Auto) 1.1 (0-2) % Lymph # (Auto) 2.1 (1.2-4.9) X10*3/uL [place] # (Auto) 0.4 (0.1-1.2) X10*3/uL Eos # (Auto) 0.0 (0.0-0.4) X10*3/uL Baso # (Auto) 0.1 (0.0-0.2) X10*3/uL Abs Immat Gran (auto) 0.01 (0.00-0.03) X10*3/uL Absolute Neuts (auto) 3.0 (2.0-8.3) x10*3/uL Absolute Nucleated RBC 0.000 (0.0-0.012) X10*3/uL Nucleated RBC % (auto) 0.0 (0.0-0.2) /100WBC Sodium (135-145) mmol/L Potassium (3.3-5.1) mmol/L Chloride (96-108) mmol/L Carbon Dioxide (22-29) mmol/L Anion Gap (12-20) BUN (9-16) mg/dL Creatinine (0.5-1.4) mg/dL Estim Creat Clear Calc Estimated GFR Random Glucose (60-115) mg/dL Calcium (8.4-10.2) mg/dL Magnesium (1.6-2.6) mg/dL Total Bilirubin (0.0-1.0) mg/dL Direct Bilirubin (0.0-0.5) mg/dL AST (5-37) U/L ALT (0-40) U/L Alkaline Phosphatase (39-117) U/L Troponin I High Sens (<3.5-35.0) ng/L Total Protein (6.5-8.0) g/dL Albumin (3.5-5.0) g/dL Lipase (8-78) U/L Urine Color Urine Appearance Urine pH (5.0-8.0) Ur Specific [place] (1.005-1.025) Urine Protein (NEG-TRACE) MG/DL Urine Glucose (UA) (NEG) MG/DL Urine Ketones (NEG) MG/DL Urine Blood (NEG) Urine Nitrite (NEG) Ur Leukocyte Esterase (NEG) Urine Opiates Screen (Not Detect) Urine Fentanyl Screen (Not Detect) Ur Barbiturates Screen (Not Detect) Ur Phencyclidine Scrn (Not Detect) Ur Amphetamines Screen (Not Detect) U Benzodiazepines Scrn (Not Detect) Urine Cocaine Screen (Not Detect) U Marijuana (THC) Screen (Not Detect) Ethyl Alcohol mg/dL COVID-19 (NELY) (Negative) COVID-19 Clin Com <HIMA Laureano - Last Filed: 05/06/21 14:44> ECG Data ECG #1: Attestation: I personally reviewed and interpreted this ECG as follows: <Hannah Le NP - Last Filed: 05/06/21 02:44> ECG interpretation date: 05/06/21 <Hannah Le NP - Last Filed: 05/06/21 02:44> ECG interpretation time: 02:31 <Hannah Le NP - Last Filed: 05/06/21 02:44> Prior ECG tracings: available for review <Hannah Le NP - Last Filed: 05/06/21 02:44> Interpretation: Vent. rate [address] interval 142 ms QRS duration 128 ms QT/QTc 402 /472 ms P-R-T axes 78 -72 51 Normal sinus rhythm Right bundle branch block Left anterior fascicular block Bifascicular block Abnormal ECG When compared with ECG of 06-FEB-2021 00:16, No significant change was found <Hannah Le NP - Last Filed: 05/06/21 02:44> Discharge Plan Discharge Clinical Impression: Alcohol abuse <Hannah Le NP - Last Filed: 05/06/21 02:44> Patient Disposition: Still a Patient <Hannah Le NP - Last Filed: 05/06/21 02:44> Instructions: Abuse of Alcohol (DC) <Hannah Le NP - Last Filed: 05/06/21 02:44> Additional Instructions: Please follow-up with detox. Thank you for choosing this emergency department for evaluation. Please follow-up with primary care physician as needed. Return to the emergency department for any new, concerning, or worsening symptoms. <Hannah Le NP - Last Filed: 05/06/21 02:44> Prescriptions: No Action clonidine HCl 0.1 mg tablet 1 tab PO TID 0RF hydroxyzine HCl 50 mg tablet 1 tab PO TID 0RF acamprosate 333 mg tablet,delayed release (DR/EC) 2 tab PO TID 0RF <Hannah Le NP - Last Filed: 05/06/21 02:44>
[2021-05-05 21:51] LABS: Appearance Urine CLEAR; Color Urine STRAW; Glucose Urine UA NEG (NEG); Leukocyte Esterase Urine NEG (NEG); Nitrite Urine NEG (NEG); Urine Blood NEG (NEG); Urine Ketones NEG (NEG); Urine Protein NEG (NEG-TRACE)
--- NOTE | 2021-05-05 21:56 | MHC.RECOVSUP ---
Addendum entered by Eliu Rush 05/06/21 12:40: Patient has a bed at [facility] and is scheduled to be there for 3:45pm Original Note: ? Reason for consult:Recovery Support o Current location: [facility] o Identified substance use concern: ETOH - Withdrawal - Seeking ATS (detox) - Support ? Intervention: o ATS bed search started/completed/in process o Community resources provided o Harm reduction discussion ? Plan: o Bed search in progress to o Follow up tomorrow o Patient to follow up with [facility] after discharge ? Additional information: Patient seeking detox, will f/u in AM to refer to detox.
[2021-05-05 22:05] LABS: Amphetamine Screen Urine Not Detected (Not Detect); Barbiturates, Urine Not Detected (Not Detect); Benzodiazepines Screen Urine POSITIVE (Not Detect); Cannabinoid Screen Urine Not Detected (Not Detect); Cocaine Screen Urine Not Detected (Not Detect); Fentanyl, urine Not Detected (Not Detect); Opiate Screen Urine Not Detected (Not Detect); Phencyclidine Screen Urine Not Detected (Not Detect)
[2021-05-05 22:06] LABS: COVID-19 Test Negative (Negative)
[2021-05-05 22:20] LABS: MANUAL DIFF FLAG NO
[2021-05-05 22:22] LABS: Basophils Absolute Auto 0.1 X10*3/uL (0.0-0.2); Basophils Percent Auto 1.1 % (0-2); Eosinophils Percent Auto 0.7 % (0-4); Hematocrit 33.2 % (42.0-52.0); Hemoglobin 10.8 g/dl (14.0-18.0); Imm Gran Abs Auto 0.01 X10*3/uL (0.00-0.03); Imm Gran Pct Auto 0.2 % (0.0-0.4); Lymphocytes Absolute Auto 2.1 X10*3/uL (1.2-4.9); Lymphocytes Percent Auto 37.3 % (20-40); Mean Corpuscular HGB Conc 32.5 g/dl (31.0-36.0); Mean Corpuscular Hemoglobin 27.6 pg (27.0-33.0); Mean Corpuscular Volume 84.9 fL (80.0-98.0); Mean Platelet Volume 8.4 fL (9.4-12.4); Monocytes Absolute Auto 0.4 X10*3/uL (0.1-1.2); Monocytes Percent Auto 7.2 % (2-11); Neutrophils Percent Auto 53.5 % (45-73); Platelet Count 203 X10*3/uL (160-400); Red Blood Count 3.91 X10*6/uL (4.60-5.80); Red Cell Distribution Width 17.7 % (11.0-16.0); White Blood Count 5.7 X10*3/uL (4.8-10.8)
[2021-05-05 22:35] LABS: Ethanol 336 mg/dL
[2021-05-05 22:38] LABS: Alanine Aminotransferase 14 U/L (0-40); Albumin Level 4.4 g/dL (3.5-5.0); Alkaline Phosphatase 119 U/L (39-117); Anion Gap 15 (12-20); Aspartate Amino Transferase 25 U/L (5-37); Bilirubin Direct 0.2 mg/dL (0.0-0.5); Bilirubin Total 0.4 mg/dL (0.0-1.0); Blood Urea Nitrogen 15 mg/dL (9-16); Calcium 9.1 mg/dL (8.4-10.2); Carbon Dioxide 29 mmol/L (22-29); Chloride 105 mmol/L (96-108); Estimated Glomerular Filt Rate > 60; Glucose Random 108 mg/dL (60-115); Lipase 64 U/L (8-78); Magnesium 2.1 mg/dL (1.6-2.6); Potassium 4.5 mmol/L (3.3-5.1); Sodium 144 mmol/L (135-145); Total Protein 7.9 g/dL (6.5-8.0)
[2021-05-05 22:44] LABS: Troponin-I High Sensitivity < 3.5 ng/L (<3.5-35.0)
[2021-05-06 02:00] VITALS: BP 121/73; PULSE 82; RESP 17; TEMP 36.6; O2SAT 94
--- NOTE | 2021-05-06 02:00 | ECG_ITS ---
Test Reason : Medical Clerance Blood Pressure : / mmHG Vent. Rate : 083 BPM Atrial Rate : 083 BPM P-R Int : 142 ms QRS Dur : 128 ms QT Int : 402 ms P-R-T Axes : 078 -72 051 degrees QTc Int : 472 ms Normal sinus rhythm Right bundle branch block Left anterior fascicular block Bifascicular block Abnormal ECG When compared with ECG of 06-FEB-2021 00:16, No significant change was found Referred By: Hannah Le Electronically Signed By:WAYNE AVILEZ MD
[2021-05-06] MEDS: LORazepam 1 MG TABLET 2 MG PO ×2 (05:43→10:21)
[2021-05-06 05:44] VITALS: BP 127/76; PULSE 93; RESP 18; TEMP 36.6; O2SAT 98
--- NOTE | 2021-05-06 05:46 | PC.NURSE ---
Patient just woke up, reported not feeling well, VSS, CIWA scored 7, Ativan 2 mg PO administered as ordered for comfort, patient currently not on medication, patient ambulates with walker, cane secured in the locker, patient is awaiting motor coach tour operator help in searching detox bed, behavior appropriate, will continue to monitor.
--- NOTE | 2021-05-06 07:16 | PC.NURSE ---
patient appears to remain asleep at present respirations are even and unlabored patient appears in no distress
[2021-05-06 10:11] VITALS: BP 135/74; PULSE 106; RESP 17; TEMP 36.9; O2SAT 96
== END 2021-05-06 15:36 | disposition home or self-care (01) ==
PROVIDERS: Nurse Practitioner Family; Emergency Provider Internal Medicine
DX: F10.10 Alcohol abuse, uncomplicated (principal); Y90.8 Blood alcohol level of 240 mg/100 ml or more; Z20.822 Contact with and (suspected) exposure to COVID-19; I48.91 Unspecified atrial fibrillation; F17.200 Nicotine dependence, unspecified, uncomplicated; F12.90 Cannabis use, unspecified, uncomplicated
CPT/HCPCS: 36415; 80048; 80076; 80307; 81003; 82077; 83690; 83735; 84484; 85025; 87635; 93005; 99284; 99285

== ENCOUNTER 2021-05-11 17:21 | Emergency (ER) | payer OTHER, SELFPAY ==
--- NOTE | 2021-05-11 | ECG_ITS ---
Test Reason : medclearance Blood Pressure : / mmHG Vent. Rate : 084 BPM Atrial Rate : 084 BPM P-R Int : 142 ms QRS Dur : 130 ms QT Int : 376 ms P-R-T Axes : 078 -69 052 degrees QTc Int : 444 ms Normal sinus rhythm Right bundle branch block Left anterior fascicular block Bifascicular block Abnormal ECG When compared with ECG of 06-MAY-2021 02:31, No significant change was found Referred By: Loraine Mulligan Electronically Signed By:RENEE TRAMMELL
[2021-05-11 17:42] VITALS: BP 123/96; BP 98/65; PULSE 78; PULSE 82; RESP 18; TEMP 37.1; O2SAT 95; BMI 24.2
--- NOTE | 2021-05-11 18:04 | ED.ALCOHOL ---
HPI - Alcohol General Chief Complaint: ETOH/Substance Use Stated Complaint: ETOH,WANTS DETOX, NO HI/SI PER EMS Time Seen by Provider: 05/11/21 18:00 History of Present Illness HPI narrative: Patient just got out detox 2 days prior. Presents today after drinking alcohol. Denies any suicidal homicidal ideation. Has no specific complaints. Admits to drinking today. No other recreational drugs patient claimed he has been drinking for 40 years. He went to detox on the 06 of May. Subsequently was in detox for 2 days. Has been drinking since. Related Data Home Medications Medication Instructions Recorded Confirmed acamprosate 333 mg tablet,delayed 2 tab PO TID 02/16/21 05/11/21 release clonidine HCl 0.1 mg tablet 1 tab PO TID 02/16/21 05/11/21 hydroxyzine HCl 50 mg tablet 1 tab PO TID 02/16/21 05/11/21 apixaban 5 mg tablet (Eliquis) 1 tab PO BID 05/11/21 05/11/21 Allergies Allergy/AdvReac Type Severity Reaction Status Date / Time Peanut Butter Allergy Facial Verified 02/05/21 22:58 Swelling raspberry Allergy Facial Verified 02/05/21 22:58 Swelling Review of Systems Review of Systems: No fever no chills no chest pain or shortness of breath no nausea no vomiting Yes all other systems are reviewed and are negative [facility] Past Medical History Attestation statement: The following information was validated with the patient. Medical History Afib Alcohol abuse Asthma COPD (chronic obstructive pulmonary disease) Neuropathy Social History Social History Alcohol intake: current Alcohol intake frequency: 3 or more drinks per day Alcohol type: beer Patient Tobacco Use Status: Current everyday Tobacco user Substance Use Type: Marijuana Advance Directives: No Advance Directives Information Provided: No Physical Exam ED Vital Signs: Vital Signs - 24 hr 05/11/21 17:42 Temperature 98.7 F Pulse Rate 78 Respiratory Rate 18 Blood Pressure 98/65 Pulse Oximetry 95 BMI result Body Mass Index 24.2 Appearance: Alert. Oriented X3. No acute distress. Eyes: Pupils equal, round and reactive to light. ENT: Pharynx normal. Neck: Normal inspection. Neck supple. No lymph nodes noted. No crepitus CVS: Normal heart rate and rhythm. Pulses normal. Normal S1 and S2 Respiratory: No respiratory distress. Breath sounds normal. No Wheezing. No rales Abdomen: Soft and nontender. No rigidity. No distention. good BS x4 Skin: Skin warm and dry. Normal skin color. Normal skin turgor. Extremities: No lower extremity edema. Neurovascular intact to all extremities. No Lacerations. No Rash Neuro: Oriented X 3. No motor deficit. No sensory deficit. Moving all extermities. No slurred speech MDM - Alcohol MDM Narrative Medical decision making narrative: Patient appear grossly intoxicated alcohol was over 300 despite going to detox 4 days prior. Patient got out of detox 2 days later. Has been drinking alcohol right after that. Patient stated that he wants to go to detox again. Case discussed with substance abuse kids activities coach. Will send patient to detox in morning. The patient is in stable condition. Medical Records Attestation: I reviewed the patient's medical records. Lab Data Attestation: I reviewed the patient's lab results. Result diagrams: 05/11/21 18:45 05/11/21 18:45 Labs: Lab Results 05/11/21 05/11/21 05/11/21 Range/Units 18:32 18:45 18:45 WBC 4.2 L (4.8-10.8) X10*3/uL RBC 4.17 L (4.60-5.80) X10*6/uL Hgb 11.8 L (14.0-18.0) g/dl Hct 36.8 L (42.0-52.0) % MCV 88.2 (80.0-98.0) fL MCH 28.3 (27.0-33.0) pg MCHC 32.1 (31.0-36.0) g/dl RDW 19.2 H (11.0-16.0) % Plt Count 218 (160-400) X10*3/uL MPV 9.0 L (9.4-12.4) fL Immature Gran % (Auto) 0.2 (0.0-0.4) % Neut % (Auto) 36.8 L (45-73) % Lymph % (Auto) 47.6 H (20-40) % [place] % (Auto) 10.1 (2-11) % Eos % (Auto) 3.6 (0-4) % Baso % (Auto) 1.7 (0-2) % Lymph # (Auto) 2.0 (1.2-4.9) X10*3/uL [place] # (Auto) 0.4 (0.1-1.2) X10*3/uL Eos # (Auto) 0.2 (0.0-0.4) X10*3/uL Baso # (Auto) 0.1 (0.0-0.2) X10*3/uL Abs Immat Gran (auto) 0.01 (0.00-0.03) X10*3/uL Absolute Neuts (auto) 1.5 L (2.0-8.3) x10*3/uL Absolute Nucleated RBC 0.000 (0.0-0.012) X10*3/uL Nucleated RBC % (auto) 0.0 (0.0-0.2) /100WBC Sodium 143 (135-145) mmol/L Potassium 4.8 (3.3-5.1) mmol/L Chloride 104 (96-108) mmol/L Carbon Dioxide 30 H (22-29) mmol/L Anion Gap 14 (12-20) BUN 11 (9-16) mg/dL Creatinine 0.83 (0.5-1.4) mg/dL Estim Creat Clear Calc 85.4 Estimated GFR > 60 Random Glucose 97 (60-115) mg/dL Calcium 9.4 (8.4-10.2) mg/dL Urine Opiates Screen (Not Detect) Urine Fentanyl Screen (Not Detect) Ur Barbiturates Screen (Not Detect) Ur Phencyclidine Scrn (Not Detect) Ur Amphetamines Screen (Not Detect) U Benzodiazepines Scrn (Not Detect) Urine Cocaine Screen (Not Detect) U Marijuana (THC) Screen (Not Detect) Ethyl Alcohol mg/dL COVID-19 (NELY) Negative (Negative) COVID-19 Clin Com See Note 05/11/21 05/11/21 Range/Units 18:45 19:31 WBC (4.8-10.8) X10*3/uL RBC (4.60-5.80) X10*6/uL Hgb (14.0-18.0) g/dl Hct (42.0-52.0) % MCV (80.0-98.0) fL MCH (27.0-33.0) pg MCHC (31.0-36.0) g/dl RDW (11.0-16.0) % Plt Count (160-400) X10*3/uL MPV (9.4-12.4) fL Immature Gran % (Auto) (0.0-0.4) % Neut % (Auto) (45-73) % Lymph % (Auto) (20-40) % [place] % (Auto) (2-11) % Eos % (Auto) (0-4) % Baso % (Auto) (0-2) % Lymph # (Auto) (1.2-4.9) X10*3/uL [place] # (Auto) (0.1-1.2) X10*3/uL Eos # (Auto) (0.0-0.4) X10*3/uL Baso # (Auto) (0.0-0.2) X10*3/uL Abs Immat Gran (auto) (0.00-0.03) X10*3/uL Absolute Neuts (auto) (2.0-8.3) x10*3/uL Absolute Nucleated RBC (0.0-0.012) X10*3/uL Nucleated RBC % (auto) (0.0-0.2) /100WBC Sodium (135-145) mmol/L Potassium (3.3-5.1) mmol/L Chloride (96-108) mmol/L Carbon Dioxide (22-29) mmol/L Anion Gap (12-20) BUN (9-16) mg/dL Creatinine (0.5-1.4) mg/dL Estim Creat Clear Calc Estimated GFR Random Glucose (60-115) mg/dL Calcium (8.4-10.2) mg/dL Urine Opiates Screen Not Detected (Not Detect) Urine Fentanyl Screen Not Detected (Not Detect) Ur Barbiturates Screen Not Detected (Not Detect) Ur Phencyclidine Scrn Not Detected (Not Detect) Ur Amphetamines Screen Not Detected (Not Detect) U Benzodiazepines Scrn POSITIVE H (Not Detect) Urine Cocaine Screen Not Detected (Not Detect) U Marijuana (THC) Screen POSITIVE H (Not Detect) Ethyl Alcohol 327 H* mg/dL COVID-19 (NELY) (Negative) COVID-19 Clin Com Discharge Plan Discharge Clinical Impression: Alcohol abuse Patient Disposition: Home, Self-Care Instructions: Abuse of Alcohol (ED) Additional Instructions: Please stop drinking alcohol. Please go to detox. Prescriptions: No Action clonidine HCl 0.1 mg tablet 1 tab PO TID 0RF hydroxyzine HCl 50 mg tablet 1 tab PO TID 0RF acamprosate 333 mg tablet,delayed release (DR/EC) 2 tab PO TID 0RF Eliquis 5 mg tablet 1 tab PO BID 0RF Referrals: Physician,Unknown J [Primary Care Provider] - 2 days (Please go to detox as soon as possible. Drinking excessively can kill you.)
--- NOTE | 2021-05-11 18:44 | MHC.RECOVSUP ---
? Reason for consult Recovery Support o Current location: [facility] o Identified substance use concern: Alcohol - Withdraw - Seeking ATS (detox) - Support ? Intervention: o ATS bed search started 6:30pm/completed6:45pm. o Community resources provided o Harm reduction discussion ? Plan: <del>o</del> <del>Referral</del> <del>to</del> <del>[facility]</del> <del>o</del> <del>Bed</del> <del>search</del> <del>in</del> <del>progress</del> <del>to</del> <del>o</del> <del>Follow</del> <del>up</del> <del>tomorrow</del> <del>o</del> <del>Patient</del> <del>awaiting</del> <del>crisis</del> <del>evaluation</del> o Patient to follow up with [facility] after discharge ? Additional information: Met with Patient and he wants to go to detox.. I called [facility] and waiting on Lab work to fax paper work to [facility].. I spoke with the care team and informed them of status...
[2021-05-11 18:52] LABS: COVID-19 Test Negative (Negative); IDNOW Serial# 16C4AD1C
[2021-05-11 18:54] LABS: MANUAL DIFF FLAG NO
[2021-05-11 18:56] LABS: Basophils Absolute Auto 0.1 X10*3/uL (0.0-0.2); Basophils Percent Auto 1.7 % (0-2); Eosinophils Absolute Auto 0.2 X10*3/uL (0.0-0.4); Eosinophils Percent Auto 3.6 % (0-4); Hematocrit 36.8 % (42.0-52.0); Hemoglobin 11.8 g/dl (14.0-18.0); Imm Gran Abs Auto 0.01 X10*3/uL (0.00-0.03); Imm Gran Pct Auto 0.2 % (0.0-0.4); Lymphocytes Percent Auto 47.6 % (20-40); Mean Corpuscular HGB Conc 32.1 g/dl (31.0-36.0); Mean Corpuscular Hemoglobin 28.3 pg (27.0-33.0); Mean Corpuscular Volume 88.2 fL (80.0-98.0); Monocytes Absolute Auto 0.4 X10*3/uL (0.1-1.2); Monocytes Percent Auto 10.1 % (2-11); Neutrophils Absolute Auto 1.5 x10*3/uL (2.0-8.3); Neutrophils Percent Auto 36.8 % (45-73); Platelet Count 218 X10*3/uL (160-400); Red Blood Count 4.17 X10*6/uL (4.60-5.80); Red Cell Distribution Width 19.2 % (11.0-16.0); White Blood Count 4.2 X10*3/uL (4.8-10.8)
[2021-05-11 19:13] LABS: Anion Gap 14 (12-20); Blood Urea Nitrogen 11 mg/dL (9-16); Calcium 9.4 mg/dL (8.4-10.2); Carbon Dioxide 30 mmol/L (22-29); Chloride 104 mmol/L (96-108); Creatinine Clr Calc Pharmacy 85.4; Estimated Glomerular Filt Rate > 60; Ethanol 327 mg/dL; Glucose Random 97 mg/dL (60-115); Potassium 4.8 mmol/L (3.3-5.1); Sodium 143 mmol/L (135-145)
[2021-05-11 19:52] LABS: Amphetamine Screen Urine Not Detected (Not Detect); Barbiturates, Urine Not Detected (Not Detect); Benzodiazepines Screen Urine POSITIVE (Not Detect); Cannabinoid Screen Urine POSITIVE (Not Detect); Cocaine Screen Urine Not Detected (Not Detect); Fentanyl, urine Not Detected (Not Detect); Opiate Screen Urine Not Detected (Not Detect); Phencyclidine Screen Urine Not Detected (Not Detect)
--- NOTE | 2021-05-11 21:13 | MHC.CARE ---
CARE team faxed medical workup and ED provider note to [facility] for review.
[2021-05-12] MEDS: LORazepam 1 MG TABLET 2 MG PO (06:18)
[2021-05-12 06:21] VITALS: BP 145/73; PULSE 92; RESP 18; TEMP 37.6; O2SAT 91
--- NOTE | 2021-05-12 06:27 | PC.NURSE ---
Patient slept through the night, no distress observed, assessed CIWA @ 0613 scored 10, administered Ativan 2 mg PO as ordered/pending effect, behavior calm and quiet, care team and assistant womens volleyball coach coordinating detox bed search at [facility], will continue to monitor.
[2021-05-12 07:40] VITALS: BP 156/82; PULSE 120; RESP 14; TEMP 36.7; O2SAT 92
[2021-05-12] MEDS: LORazepam 1 MG TABLET PO (08:31)
--- NOTE | 2021-05-12 09:10 | MHC.RECOVRN ---
Spoke with [facility], could not find pts referral. Resent. Awaiting call back.
[2021-05-12 09:15] VITALS: BP 128/76; PULSE 89; RESP 14; TEMP 37.2; O2SAT 97
[2021-05-12] MEDS: hydrOXYzine HCL 50 MG TABLET PO (10:10)
[2021-05-12] MEDS: cloNIDine HCL 0.1 MG TABLET PO (10:10)
[2021-05-12] MEDS: Acamprosate Calcium 333 MG TABLET.DR 666 MG PO (10:10)
[2021-05-12] MEDS: Apixaban 5 MG TABLET PO (10:11)
--- NOTE | 2021-05-12 10:38 | PC.NURSE ---
pt seen by lean coach pt aware of plan of care.
--- NOTE | 2021-05-12 11:41 | PC.NURSE ---
rn to rn given to brant at [facility] ([phone]). pt aware of plan of care for transfer to [facility].
--- NOTE | 2021-05-12 13:02 | MHC.RECOVSUP ---
MET WITH PT. THIS TERMITE INSPECTOR WAS TOLD THAT THE PT. WAS HEADED TO [facility]. I WAS ABLE TO REACH [facility] AND THEY DID A INTAKE ON THE PT. THEN ARRANGED TRANSPORTATION FOR THE PT.PT. IS BEING DROPPED OFF TO [facility] . TRANSPORTATION PROVIDED BY [facility] TO [place].--
== END 2021-05-12 12:56 | disposition home or self-care (01) ==
PROVIDERS: Emergency Provider Emergency Medicine Emergency Medical Services
DX: F10.129 Alcohol abuse with intoxication, unspecified (principal); Y90.8 Blood alcohol level of 240 mg/100 ml or more; Z20.822 Contact with and (suspected) exposure to COVID-19; Z79.899 Other long term (current) drug therapy; Z71.41 Alcohol abuse counseling and surveillance of alcoholic
CPT/HCPCS: 36415; 80048; 80307; 82077; 85025; 87635; 93005; 99284

== ENCOUNTER 2021-07-23 15:58 | Emergency (ER) | payer OTHER, SELFPAY ==
--- NOTE | ~2021-07-23 | CT_ITS ---
EXAMINATION: CT HEAD WITHOUT CONTRAST CT CERVICAL SPINE WITHOUT CONTRAST CLINICAL INFORMATION: EtOH. Falls. Neck pain. COMPARISON: CT head from 04/21/2021. TECHNIQUE: Contiguous axial imaging was performed from the skull base to vertex without intravenous administration of contrast. Contiguous axial imaging was performed from the upper chest through the skull base without intravenous administration of contrast. Coronal and sagittal reformats were obtained at the acquisition workstation. DLP: 1043 mGy-cm FINDINGS: Head: Chronic changes of prior right orbitofrontal craniotomy/craniectomy. Subjacent encephalomalacia of the anterior right frontal lobe. There is no evidence of acute intracranial hemorrhage or edematous territorial infarction. A few foci of hypoattenuation in the periventricular and deep white matter are consistent with mild microangiopathy. James-white matter differentiation is preserved. Proportional prominence of the ventricles and sulcal spaces. No evidence for obstructive hydrocephalus. No abnormal mass effect or midline shift. No extra-axial fluid collections. No acute soft tissue or osseous abnormalities. Mild mucosal thickening of the paranasal sinuses. Moderate rightward nasal septal deviation. Left-sided chris bullosa. The mastoid air cells and middle ear cavities are clear. Mild degenerative arthropathy of the temporomandibular joints. Cervical Spine: Moderately motion degraded exam. Rightward rotary subluxation of C1 on C2. Otherwise, the atlantooccipital and atlantoaxial articulations remain well aligned. Straightening of the normal cervical lordosis. Otherwise, there is anatomic alignment of the vertebral bodies and posterior elements. No evidence of acute fracture or subluxation. 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 The vertebral body heights are maintained. Moderate degenerative disc disease at C5-C6. Mild degenerative disc disease at all additional cervical levels. Disc-osteophyte complex formation from C3-C7. Facet and uncovertebral joint arthropathy leads osseous encroachment on the neural foramina from C3-C7. There is no prevertebral soft tissue swelling. The thyroid gland and remaining cervical soft tissues are normal in appearance. Mild to moderate centrilobular and centrilobular emphysema is noted in the visualized upper lungs. CT/CT cervical spine wo con IMPRESSION: 1. No evidence of acute intracranial hemorrhage or edematous territorial infarction. 2. Chronic changes of prior right orbitofrontal craniotomy/craniectomy with subjacent encephalomalacia of the anterior right frontal lobe. Mild underlying microangiopathy and generalized cerebral volume loss. 3. No evidence of acute fracture or traumatic subluxation of the cervical spine. Mild to moderate degenerative spondyloarthropathy of the cervical spine. 4. Emphysema.
--- NOTE | ~2021-07-23 | XR_ITS ---
EXAMINATION: XR CHEST CLINICAL INFORMATION: Wheezing, diminished breath sounds. COMPARISON: Chest radiograph dated 02/05/2021. TECHNIQUE: Frontal view of the chest was obtained. FINDINGS: No significant abnormality is noted involving the heart, lungs, mediastinum, bony thorax or soft tissues. XR/XR chest 1V IMPRESSION: No acute cardiopulmonary process.
[2021-07-23 16:15] VITALS: BP 117/80; PULSE 80; BMI 21.4
--- NOTE | 2021-07-23 16:19 | ED_ITS ---
HPI - Alcohol General Chief Complaint: ETOH/Substance Use <HIMA Fitch - Last Filed: 07/23/21 22:57> Stated Complaint: ETOH <HIMA Fitch - Last Filed: 07/23/21 22:57> Time Seen by Provider: 07/23/21 16:19 <HIMA Fitch - Last Filed: 07/23/21 22:57> Source: patient <HIMA Fitch - Last Filed: 07/23/21 22:57> Mode of arrival: ambulatory <HIMA Fitch - Last Filed: 07/23/21 22:57> Limitations: other (Intoxicated, poor historian) <HIMA Fitch - Last Filed: 07/23/21 22:57> History of Present Illness HPI narrative: 61-year-old male history of atrial fibrillation currently on Eliquis, alcohol abuse, asthma, COPD presenting to the emergency department from acute alcohol intoxication. Patient was brought in by EMS he tells me that he drink 2 pt of whiskey today. He tells me his last drink was approximately 2 hours prior to his arrival. Patient appears intoxicated, slurring his words, sleepy. He is not making much sense when I ask him questions. He tells me he smokes every day 1 pack per day. Also mentions to me that he was recently discharged from [facility] but unsure why. At this time patient denies any medical complaints.Denies SI and HI. He tells me he thinks that he has a history of alcohol withdrawal seizures. According to EMS patient was recently on a Section 35 however he is no longer on a Section 35. No signs of evident trauma. Denies falls <HIMA Fitch - Last Filed: 07/23/21 22:57> MD complaint: alcohol intoxication and alcohol dependence <HIMA Fitch - Last Filed: 07/23/21 22:57> Last drink: Just prior to admission <IHMA Fitch Last Filed: 07/23/21 22:57> Chronic alcohol use: Yes <HIMA Fitch Last Filed: 07/23/21 22:57> Previous visits for alcohol intoxication: Yes <HIMA Fitch - Last Filed: 07/23/21 22:57> Associated symptoms: denies other symptoms <HIMA Fitch - Last Filed: 07/23/21 22:57> Treatments prior to arrival: none <HIMA Fitch - Last Filed: 07/23/21 22:57> Related Data Home Medications: Home Medications Medication Instructions Recorded Confirmed apixaban 5 mg tablet (Eliquis) 1 tab PO BID 05/11/21 07/23/21 docusate sodium 100 mg capsule 1 cap PO BID 07/23/21 07/23/21 doxepin 10 mg capsule 1 cap PO BEDTIME 07/23/21 07/23/21 melatonin 3 mg tablet 1 tab PO BEDTIME 07/23/21 07/23/21 multivitamin with minerals-ferrous 1 tab PO DAILY 07/23/21 07/23/21 sulfate 4.5 mg iron tablet (One Daily Multivitamins with Minerals) naltrexone 50 mg tablet 1 tab PO DAILY 07/23/21 07/23/21 tiotropium bromide 1.25 2 puff INHALATION DAILY 07/23/21 07/23/21 mcg/actuation mist for inhalation (Spiriva Respimat) <HIMA Fitch Last Filed: 07/23/21 22:57> Allergies/Adverse Reactions: Allergies Allergy/AdvReac Type Severity Reaction Status Date / Time Peanut Butter Allergy Facial Verified 02/05/21 22:58 Swelling raspberry Allergy Facial Verified 02/05/21 22:58 Swelling <HIMA Fitch - Last Filed: 07/23/21 22:57> Review of Systems Review of Systems: Patient unable to answer these questions, acutely intoxicated <HIMA Fitch Last Filed: 07/23/21 22:57> Yes Unobtainable due to mental status <HIMA Fitch Last Filed: 07/23/21 22:57> [facility] Past Medical History Attestation statement: The following information was validated with the patient. <HIMA Thomas Last Filed: 07/23/21 22:57> Source: old records reviewed and nursing notes reviewed <HIMA Fitch - Last Filed: 07/23/21 22:57> Medical History: Medical History Afib Alcohol abuse Asthma COPD (chronic obstructive pulmonary disease) Neuropathy <HIMA Fitch - Last Filed: 07/23/21 22:57> Social History Social History: Social History Alcohol intake: current Alcohol intake frequency: 3 or more drinks per day Alcohol type: beer Patient Tobacco Use Status: Current everyday Tobacco user Substance Use Type: Marijuana Advance Directives: No Advance Directives Information Provided: No <HIMA Fitch - Last Filed: 07/23/21 22:57> Physical Exam ED Vital Signs: Vital Signs - 24 hr 07/23/21 16:27 07/23/21 17:19 07/24/21 01:10 Temperature 97.4 F 98.1 F Pulse Rate 68 111 H Respiratory Rate 14 18 18 Blood Pressure 121/81 107/77 Pulse Oximetry 92 92 07/24/21 07:38 Temperature 98.5 F Pulse Rate 88 Respiratory Rate 20 Blood Pressure 124/69 Pulse Oximetry 92 BMI result Body Mass Index 21.4 Vital signs stable <HIMA Fitch - Last Filed: 07/23/21 22:57> Vital Signs - 24 hr 07/23/21 16:27 07/23/21 17:19 07/24/21 01:10 Temperature 97.4 F 98.1 F Pulse Rate 68 111 H Respiratory Rate 14 18 18 Blood Pressure 121/81 107/77 Pulse Oximetry 92 92 07/24/21 07:38 Temperature 98.5 F Pulse Rate 88 Respiratory Rate 20 Blood Pressure 124/69 Pulse Oximetry 92 BMI result Body Mass Index 21.4 <HIMA Tanner - Last Filed: 07/24/21 08:23> Appearance: Alert.? Oriented X3.? No acute distress.? Patient appears disheveled. Smells like alcohol. Not making sense when he speaks. Head: Normocephalic, atraumatic, no step-offs or deformities Eyes: Pupils equal, round and reactive to light.? ENT: Pharynx normal.? Neck: Normal inspection.? Neck supple.? CVS: Normal heart rate and rhythm.? Pulses normal.? Respiratory: No respiratory distress.? Wheezing throughout with diminished breath sounds bilaterally. Abdomen: Soft and nontender.? Skin: Skin warm and dry.? Normal skin color.? Normal skin turgor.? Extremities: No lower extremity edema.? No calf ttp. 5/5 strength to bilateral upper and lower extremities Neuro: Oriented X 3.? No motor deficit.? No sensory deficit. CN 2-12 intact <HIMA Fitch - Last Filed: 07/23/21 22:57> Course Reevaluation(s) Reevaluation #1: Patient's CBC appears to be at baseline. Urine clean for infection. Patient's ethanol level 356. Patient's COVID is negative. Chest x-ray with no acute findings. Head CT, cervical spine CT and chemistry pending at this time <HIMA Fitch Last Filed: 07/23/21 22:57> Time: 18:00 <HIMA Fitch - Last Filed: 07/23/21 22:57> Reevaluation #2: Chemistry with no acute electrolyte abnormalities. Urine toxicology positive for barbiturates. Patient remains common cooperative no acute distress, resting. Chest x-ray with no acute cardiopulmonary processes. CT of the cervical spine without fracture, dislocations or subluxations. Patient is noted to have emphysema. Chronic changes of prior right orbital frontal crani otomy craniectomy with subjective encephalomalacia noted to the anterior right frontal lobe. No evidence of acute intracranial hemorrhage. At this time patient will be placed in physician observation to allow more time to be evaluated by the behavioral health team. At time observation was started patient common cooperative no acute distress. No signs of autonomic dysfunction, stable vitals. <HIMA Fitch - Last Filed: 07/23/21 22:57> Time: 22:56 <HIMA Fitch Last Filed: 07/23/21 22:57> Reevaluation #3: Physician observation continued. No acute overnight events. Alcohol level last evening at 17:00 was 356. Will evaluate for detox and see if he is interested in treatment. Will continue to monitor. <HIMA Tanner - Last Filed: 07/24/21 08:23> Time: 08:23 <HIMA Tanner - Last Filed: 07/24/21 08:23> MDM - Alcohol MDM Narrative Medical decision making narrative: 1622 61-year-old male presents with acute alcohol intoxication. Unable to answer questions due to mental status/intoxication. Patient has no evidence signs of trauma. Anticoagulated on Eliquis. Denies falls. Denies SI and HI. Physical examination significant for 61-year-old male unkempt, smelling like alcohol, not making sense when he speaks, dozing off during my examination. Regular rate and rhythm. Wheezing noted throughout w/ diminished breath sounds.. Abdomen soft nontender nondistended. Neuro exam is nonfocal. Plan at this time is medical clearance. Will give Ativan prophylactically for seizures. Will closely monitor patient. Will also scan patient's head and cervical spine to ensure there is no fractures, or intracranial hemorrhage as it is unclear whether not patient fell. A chest x-ray will also be obtained to rule out pneumonia as patient does have wheezing throughout diminished breath sounds. Patient will be given a DuoNeb for this. <HIMA Fitch - Last Filed: 07/23/21 22:57> Medical Records Attestation: I reviewed the patient's medical records. <HIMA Fitch - Last Filed: 07/23/21 22:57> Lab Data Attestation: I reviewed the patient's lab results. <HIMA Fitch - Last Filed: 07/23/21 22:57> Result diagrams: : 07/23/21 16:58 07/23/21 16:58 <HIMA Fitch - Last Filed: 07/23/21 22:57> Labs: Lab Results 07/23/21 07/23/21 07/23/21 Range/Units 16:17 16:17 16:58 WBC 5.3 (4.8-10.8) X10*3/uL RBC 4.24 L (4.60-5.80) X10*6/uL Hgb 12.0 L (14.0-18.0) g/dl Hct 36.8 L (42.0-52.0) % MCV 86.8 (80.0-98.0) fL MCH 28.3 (27.0-33.0) pg MCHC 32.6 (31.0-36.0) g/dl RDW 17.1 H (11.0-16.0) % Plt Count 178 (160-400) X10*3/uL MPV 8.9 L (9.4-12.4) fL Immature Gran % (Auto) 0.2 (0.0-0.4) % Neut % (Auto) 48.2 (45-73) % Lymph % (Auto) 41.1 H (20-40) % [place] % (Auto) 7.4 (2-11) % Eos % (Auto) 2.1 (0-4) % Baso % (Auto) 1.0 (0-2) % Lymph # (Auto) 2.2 (1.2-4.9) X10*3/uL [place] # (Auto) 0.4 (0.1-1.2) X10*3/uL Eos # (Auto) 0.1 (0.0-0.4) X10*3/uL Baso # (Auto) 0.1 (0.0-0.2) X10*3/uL Abs Immat Gran (auto) 0.01 (0.00-0.03) X10*3/uL Absolute Neuts (auto) 2.5 (2.0-8.3) x10*3/uL Absolute Nucleated RBC 0.000 (0.0-0.012) X10*3/uL Nucleated RBC % (auto) 0.0 (0.0-0.2) /100WBC Sodium (135-145) mmol/L Potassium (3.3-5.1) mmol/L Chloride (96-108) mmol/L Carbon Dioxide (22-29) mmol/L Anion Gap (12-20) BUN (9-16) mg/dL Creatinine (0.5-1.4) mg/dL Estim Creat Clear Calc Estimated GFR Random Glucose (60-115) mg/dL Calcium (8.4-10.2) mg/dL Magnesium (1.6-2.6) mg/dL Total Bilirubin (0.0-1.0) mg/dL AST (5-37) U/L ALT (0-40) U/L Alkaline Phosphatase (39-117) U/L Total Protein (6.5-8.0) g/dL Albumin (3.5-5.0) g/dL Urine Color YELLOW Urine Appearance CLEAR Urine pH 6.0 (5.0-8.0) Ur Specific [place] 1.010 (1.005-1.025) Urine Protein NEG (NEG-TRACE) MG/DL Urine Glucose (UA) 100 H (NEG) MG/DL Urine Ketones 5 (NEG) MG/DL Urine Blood NEG (NEG) Urine Nitrite NEG (NEG) Ur Leukocyte Esterase NEG (NEG) Urine Opiates Screen Not Detected (Not Detect) Urine Fentanyl Screen Not Detected (Not Detect) Ur Barbiturates Screen POSITIVE H (Not Detect) Ur Phencyclidine Scrn Not Detected (Not Detect) Ur Amphetamines Screen Not Detected (Not Detect) U Benzodiazepines Scrn Not Detected (Not Detect) Urine Cocaine Screen Not Detected (Not Detect) U Marijuana (THC) Screen Not Detected (Not Detect) Ethyl Alcohol mg/dL COVID-19 (NELY) (Negative) COVID-19 Clin Com 07/23/21 07/23/21 07/23/21 Range/Units 16:58 16:58 16:58 WBC (4.8-10.8) X10*3/uL RBC (4.60-5.80) X10*6/uL Hgb (14.0-18.0) g/dl Hct (42.0-52.0) % MCV (80.0-98.0) fL MCH (27.0-33.0) pg MCHC (31.0-36.0) g/dl RDW (11.0-16.0) % Plt Count (160-400) X10*3/uL MPV (9.4-12.4) fL Immature Gran % (Auto) (0.0-0.4) % Neut % (Auto) (45-73) % Lymph % (Auto) (20-40) % [place] % (Auto) (2-11) % Eos % (Auto) (0-4) % Baso % (Auto) (0-2) % Lymph # (Auto) (1.2-4.9) X10*3/uL [place] # (Auto) (0.1-1.2) X10*3/uL Eos # (Auto) (0.0-0.4) X10*3/uL Baso # (Auto) (0.0-0.2) X10*3/uL Abs Immat Gran (auto) (0.00-0.03) X10*3/uL Absolute Neuts (auto) (2.0-8.3) x10*3/uL Absolute Nucleated RBC (0.0-0.012) X10*3/uL Nucleated RBC % (auto) (0.0-0.2) /100WBC Sodium 143 (135-145) mmol/L Potassium 4.0 (3.3-5.1) mmol/L Chloride 104 (96-108) mmol/L Carbon Dioxide 28 (22-29) mmol/L Anion Gap 15 (12-20) BUN 11 (9-16) mg/dL Creatinine 0.84 (0.5-1.4) mg/dL Estim Creat Clear Calc 85.9 Estimated GFR > 60 Random Glucose 92 (60-115) mg/dL Calcium 9.0 (8.4-10.2) mg/dL Magnesium 1.9 (1.6-2.6) mg/dL Total Bilirubin 0.3 (0.0-1.0) mg/dL AST 26 (5-37) U/L ALT 18 (0-40) U/L Alkaline Phosphatase 103 (39-117) U/L Total Protein 7.3 (6.5-8.0) g/dL Albumin 4.1 (3.5-5.0) g/dL Urine Color Urine Appearance Urine pH (5.0-8.0) Ur Specific [place] (1.005-1.025) Urine Protein (NEG-TRACE) MG/DL Urine Glucose (UA) (NEG) MG/DL Urine Ketones (NEG) MG/DL Urine Blood (NEG) Urine Nitrite (NEG) Ur Leukocyte Esterase (NEG) Urine Opiates Screen (Not Detect) Urine Fentanyl Screen (Not Detect) Ur Barbiturates Screen (Not Detect) Ur Phencyclidine Scrn (Not Detect) Ur Amphetamines Screen (Not Detect) U Benzodiazepines Scrn (Not Detect) Urine Cocaine Screen (Not Detect) U Marijuana (THC) Screen (Not Detect) Ethyl Alcohol 356 H* mg/dL COVID-19 (NELY) Negative (Negative) COVID-19 Clin Com See Note <HIMA Fitch - Last Filed: 07/23/21 22:57> Lab Results 07/23/21 07/23/21 07/23/21 Range/Units 16:17 16:17 16:58 WBC 5.3 (4.8-10.8) X10*3/uL RBC 4.24 L (4.60-5.80) X10*6/uL Hgb 12.0 L (14.0-18.0) g/dl Hct 36.8 L (42.0-52.0) % MCV 86.8 (80.0-98.0) fL MCH 28.3 (27.0-33.0) pg MCHC 32.6 (31.0-36.0) g/dl RDW 17.1 H (11.0-16.0) % Plt Count 178 (160-400) X10*3/uL MPV 8.9 L (9.4-12.4) fL Immature Gran % (Auto) 0.2 (0.0-0.4) % Neut % (Auto) 48.2 (45-73) % Lymph % (Auto) 41.1 H (20-40) % [place] % (Auto) 7.4 (2-11) % Eos % (Auto) 2.1 (0-4) % Baso % (Auto) 1.0 (0-2) % Lymph # (Auto) 2.2 (1.2-4.9) X10*3/uL [place] # (Auto) 0.4 (0.1-1.2) X10*3/uL Eos # (Auto) 0.1 (0.0-0.4) X10*3/uL Baso # (Auto) 0.1 (0.0-0.2) X10*3/uL Abs Immat Gran (auto) 0.01 (0.00-0.03) X10*3/uL Absolute Neuts (auto) 2.5 (2.0-8.3) x10*3/uL Absolute Nucleated RBC 0.000 (0.0-0.012) X10*3/uL Nucleated RBC % (auto) 0.0 (0.0-0.2) /100WBC Sodium (135-145) mmol/L Potassium (3.3-5.1) mmol/L Chloride (96-108) mmol/L Carbon Dioxide (22-29) mmol/L Anion Gap (12-20) BUN (9-16) mg/dL Creatinine (0.5-1.4) mg/dL Estim Creat Clear Calc Estimated GFR Random Glucose (60-115) mg/dL Calcium (8.4-10.2) mg/dL Magnesium (1.6-2.6) mg/dL Total Bilirubin (0.0-1.0) mg/dL AST (5-37) U/L ALT (0-40) U/L Alkaline Phosphatase (39-117) U/L Total Protein (6.5-8.0) g/dL Albumin (3.5-5.0) g/dL Urine Color YELLOW Urine Appearance CLEAR Urine pH 6.0 (5.0-8.0) Ur Specific [place] 1.010 (1.005-1.025) Urine Protein NEG (NEG-TRACE) MG/DL Urine Glucose (UA) 100 H (NEG) MG/DL Urine Ketones 5 (NEG) MG/DL Urine Blood NEG (NEG) Urine Nitrite NEG (NEG) Ur Leukocyte Esterase NEG (NEG) Urine Opiates Screen Not Detected (Not Detect) Urine Fentanyl Screen Not Detected (Not Detect) Ur Barbiturates Screen POSITIVE H (Not Detect) Ur Phencyclidine Scrn Not Detected (Not Detect) Ur Amphetamines Screen Not Detected (Not Detect) U Benzodiazepines Scrn Not Detected (Not Detect) Urine Cocaine Screen Not Detected (Not Detect) U Marijuana (THC) Screen Not Detected (Not Detect) Ethyl Alcohol mg/dL COVID-19 (NELY) (Negative) COVID-19 Clin Com 07/23/21 07/23/21 07/23/21 Range/Units 16:58 16:58 16:58 WBC (4.8-10.8) X10*3/uL RBC (4.60-5.80) X10*6/uL Hgb (14.0-18.0) g/dl Hct (42.0-52.0) % MCV (80.0-98.0) fL MCH (27.0-33.0) pg MCHC (31.0-36.0) g/dl RDW (11.0-16.0) % Plt Count (160-400) X10*3/uL MPV (9.4-12.4) fL Immature Gran % (Auto) (0.0-0.4) % Neut % (Auto) (45-73) % Lymph % (Auto) (20-40) % [place] % (Auto) (2-11) % Eos % (Auto) (0-4) % Baso % (Auto) (0-2) % Lymph # (Auto) (1.2-4.9) X10*3/uL [place] # (Auto) (0.1-1.2) X10*3/uL Eos # (Auto) (0.0-0.4) X10*3/uL Baso # (Auto) (0.0-0.2) X10*3/uL Abs Immat Gran (auto) (0.00-0.03) X10*3/uL Absolute Neuts (auto) (2.0-8.3) x10*3/uL Absolute Nucleated RBC (0.0-0.012) X10*3/uL Nucleated RBC % (auto) (0.0-0.2) /100WBC Sodium 143 (135-145) mmol/L Potassium 4.0 (3.3-5.1) mmol/L Chloride 104 (96-108) mmol/L Carbon Dioxide 28 (22-29) mmol/L Anion Gap 15 (12-20) BUN 11 (9-16) mg/dL Creatinine 0.84 (0.5-1.4) mg/dL Estim Creat Clear Calc 85.9 Estimated GFR > 60 Random Glucose 92 (60-115) mg/dL Calcium 9.0 (8.4-10.2) mg/dL Magnesium 1.9 (1.6-2.6) mg/dL Total Bilirubin 0.3 (0.0-1.0) mg/dL AST 26 (5-37) U/L ALT 18 (0-40) U/L Alkaline Phosphatase 103 (39-117) U/L Total Protein 7.3 (6.5-8.0) g/dL Albumin 4.1 (3.5-5.0) g/dL Urine Color Urine Appearance Urine pH (5.0-8.0) Ur Specific [place] (1.005-1.025) Urine Protein (NEG-TRACE) MG/DL Urine Glucose (UA) (NEG) MG/DL Urine Ketones (NEG) MG/DL Urine Blood (NEG) Urine Nitrite (NEG) Ur Leukocyte Esterase (NEG) Urine Opiates Screen (Not Detect) Urine Fentanyl Screen (Not Detect) Ur Barbiturates Screen (Not Detect) Ur Phencyclidine Scrn (Not Detect) Ur Amphetamines Screen (Not Detect) U Benzodiazepines Scrn (Not Detect) Urine Cocaine Screen (Not Detect) U Marijuana (THC) Screen (Not Detect) Ethyl Alcohol 356 H* mg/dL COVID-19 (NELY) Negative (Negative) COVID-19 Clin Com See Note <HIMA Tanner - Last Filed: 07/24/21 08:23> Critical Care Time Critical Care Time Critical Care Time: No <HIMA Fitch - Last Filed: 07/23/21 22:57> Discharge Plan Discharge Clinical Impression: Alcohol abuse <HIMA Fitch - Last Filed: 07/23/21 22:57> Patient Disposition: Still a Patient <HIMA Fitch - Last Filed: 07/23/21 22:57> Prescriptions: No Action naltrexone 50 mg tablet 1 tab PO DAILY 0RF melatonin 3 mg tablet 1 tab PO BEDTIME 0RF doxepin 10 mg capsule 1 cap PO BEDTIME 0RF docusate sodium 100 mg capsule 1 cap PO BID 0RF Spiriva Respimat 1.25 mcg/actuation mist 2 puff inhalation DAILY 0RF One Daily Multi-Vit w-Mineral 4.5 mg iron tablet 1 tab PO DAILY 0RF Eliquis 5 mg tablet 1 tab PO BID 0RF <HIMA Fitch - Last Filed: 07/23/21 22:57>
[2021-07-23 16:27] VITALS: BP 121/81; PULSE 68; RESP 14; TEMP 36.3; O2SAT 92
[2021-07-23 16:30] LABS: Appearance Urine CLEAR; Color Urine YELLOW; Glucose Urine UA 100 MG/DL (NEG); Leukocyte Esterase Urine NEG (NEG); Nitrite Urine NEG (NEG); Urine Blood NEG (NEG); Urine Ketones 5 MG/DL (NEG); Urine Protein NEG (NEG-TRACE)
[2021-07-23] MEDS: LORazepam 1 MG TABLET PO (16:36)
[2021-07-23 17:02] LABS: MANUAL DIFF FLAG NO
[2021-07-23 17:03] LABS: Basophils Absolute Auto 0.1 X10*3/uL (0.0-0.2); Eosinophils Absolute Auto 0.1 X10*3/uL (0.0-0.4); Eosinophils Percent Auto 2.1 % (0-4); Hematocrit 36.8 % (42.0-52.0); Imm Gran Abs Auto 0.01 X10*3/uL (0.00-0.03); Imm Gran Pct Auto 0.2 % (0.0-0.4); Lymphocytes Absolute Auto 2.2 X10*3/uL (1.2-4.9); Lymphocytes Percent Auto 41.1 % (20-40); Mean Corpuscular HGB Conc 32.6 g/dl (31.0-36.0); Mean Corpuscular Hemoglobin 28.3 pg (27.0-33.0); Mean Corpuscular Volume 86.8 fL (80.0-98.0); Mean Platelet Volume 8.9 fL (9.4-12.4); Monocytes Absolute Auto 0.4 X10*3/uL (0.1-1.2); Monocytes Percent Auto 7.4 % (2-11); Neutrophils Absolute Auto 2.5 x10*3/uL (2.0-8.3); Neutrophils Percent Auto 48.2 % (45-73); Platelet Count 178 X10*3/uL (160-400); Red Blood Count 4.24 X10*6/uL (4.60-5.80); Red Cell Distribution Width 17.1 % (11.0-16.0); White Blood Count 5.3 X10*3/uL (4.8-10.8)
[2021-07-23 17:14] LABS: Ethanol 356 mg/dL
[2021-07-23] MEDS: Albuterol/Iprat 2.5/0.5MG 3 ML AMPUL.NEB INHALE (17:18)
[2021-07-23 17:19] VITALS: RESP 18; O2SAT 95
[2021-07-23 17:19] LABS: COVID-19 Test Negative (Negative); IDNOW Serial# 16C4AD1C
[2021-07-23 18:00] LABS: Alanine Aminotransferase 18 U/L (0-40); Albumin Level 4.1 g/dL (3.5-5.0); Alkaline Phosphatase 103 U/L (39-117); Anion Gap 15 (12-20); Aspartate Amino Transferase 26 U/L (5-37); Bilirubin Total 0.3 mg/dL (0.0-1.0); Blood Urea Nitrogen 11 mg/dL (9-16); Carbon Dioxide 28 mmol/L (22-29); Chloride 104 mmol/L (96-108); Creatinine Clr Calc Pharmacy 85.9; Estimated Glomerular Filt Rate > 60; Glucose Random 92 mg/dL (60-115); Magnesium 1.9 mg/dL (1.6-2.6); Sodium 143 mmol/L (135-145); Total Protein 7.3 g/dL (6.5-8.0)
[2021-07-23 18:33] LABS: Amphetamine Screen Urine Not Detected (Not Detect); Barbiturates, Urine POSITIVE (Not Detect); Benzodiazepines Screen Urine Not Detected (Not Detect); Cannabinoid Screen Urine Not Detected (Not Detect); Cocaine Screen Urine Not Detected (Not Detect); Fentanyl, urine Not Detected (Not Detect); Opiate Screen Urine Not Detected (Not Detect); Phencyclidine Screen Urine Not Detected (Not Detect)
[2021-07-24 01:10] VITALS: BP 107/77; PULSE 111; RESP 18; TEMP 36.7; O2SAT 92
[2021-07-24] MEDS: LORazepam 1 MG TABLET 2 MG PO (05:09)
--- NOTE | 2021-07-24 05:22 | PC.NURSE ---
Patient slept 5 + hours intermittently, CIWA was 6 at 0500, HR 111, Ativan 2 mg po for comfort at 0509 + effect per patient, behavior non concerning, disposition is sober out discharge if patient denied detox help, will continue to monitor.
--- NOTE | 2021-07-24 07:12 | PC.NURSE ---
patient appears to remain asleep at present respirations are even and unlabored patient appears in no distress
[2021-07-24 07:38] VITALS: BP 124/69; PULSE 88; RESP 20; TEMP 36.9; O2SAT 92
[2021-07-24 11:03] VITALS: BP 126/81; PULSE 104; RESP 16; O2SAT 92
--- NOTE | 2021-07-24 11:32 | PHA.MEDREC ---
Pharmacy Consult ? Medication Reconciliation Pharmacy has reviewed the medication reconciliation completed by [facility].
[2021-07-24] MEDS: Docusate Sodium 100 MG CAPSULE PO (11:54)
[2021-07-24] MEDS: LORazepam 1 MG TABLET PO (11:54)
[2021-07-24] MEDS: Multivitamin TABLET 1 TAB PO (11:54)
[2021-07-24] MEDS: Naltrexone HCl 50 MG TABLET PO (12:39)
== END 2021-07-24 12:46 | disposition other institution (70) ==
PROVIDERS: Physician Assistant; Emergency Provider Student in an Organized Health Care Education/Training Program; PCP Internal Medicine
DX: F10.229 Alcohol dependence with intoxication, unspecified (principal); I48.91 Unspecified atrial fibrillation; M54.2 Cervicalgia; R06.2 Wheezing; F12.90 Cannabis use, unspecified, uncomplicated; F17.200 Nicotine dependence, unspecified, uncomplicated; Y90.8 Blood alcohol level of 240 mg/100 ml or more; Z20.822 Contact with and (suspected) exposure to COVID-19; Z79.01 Long term (current) use of anticoagulants; Z79.899 Other long term (current) drug therapy; Z71.6 Tobacco abuse counseling
CPT/HCPCS: 36415; 70450; 71045; 72125; 80053; 80307; 81003; 82077; 83735; 85025; 87635; 94640; 99284

== ENCOUNTER 2021-08-04 22:28 | Emergency (ER) | payer OTHER, SELFPAY ==
--- NOTE | ~2021-08-04 | CT_ITS ---
EXAMINATION: CT HEAD WITHOUT CONTRAST CT CERVICAL SPINE WITHOUT CONTRAST CLINICAL INFORMATION: Fall 3 days ago. Pain. COMPARISON: 07/23/2021 TECHNIQUE: Multidetector CT imaging of the head and cervical spine was performed without the use of intravenous contrast. Multiplanar reformats are reviewed. This CT examination was performed using dose optimization techniques as appropriate, variously including the following: *Automated exposure control *Adjustment of mA and/or kV according to patient size (this includes techniques or standardized protocols for targeted exams where dose is matched to indication/reason for exam; i.e. extremities or head) *Use of iterative reconstruction technique DLP: 1180 mGy-cm. FINDINGS: Right orbital frontal craniotomy/craniectomy redemonstrated with associated underlying encephalomalacia and gliosis within the anteroinferior right frontal lobe. Mild patchy subcortical and periventricular white matter low-attenuation changes redemonstrated, statistically related to chronic microangiopathic gliosis. No acute territorial infarct. No intracranial hemorrhage or extra-axial collection. The mastoid air cells and visualized portions of the paranasal sinuses are well-aerated. Atlantooccipital alignment is maintained. The vertebral bodies and posterior elements align normally. No acute fracture or subluxation. Vertebral body heights are maintained. Chronic nonunited fractures of the C6, C7-T1 spinous processes. End plate osteophytes present at C5-C6 with accompanying loss of disc space height. The paraspinal soft tissues are unremarkable. Imaged lung apices demonstrate mild emphysema. CT/CT cervical spine wo con IMPRESSION: No acute intracranial pathology. No cervical spine fracture or malalignment. Chronic findings as above.
--- NOTE | ~2021-08-04 | CT_ITS ---
EXAMINATION: CT HEAD WITHOUT CONTRAST CT CERVICAL SPINE WITHOUT CONTRAST CLINICAL INFORMATION: Fall 3 days ago. Pain. COMPARISON: 07/23/2021 TECHNIQUE: Multidetector CT imaging of the head and cervical spine was performed without the use of intravenous contrast. Multiplanar reformats are reviewed. This CT examination was performed using dose optimization techniques as appropriate, variously including the following: *Automated exposure control *Adjustment of mA and/or kV according to patient size (this includes techniques or standardized protocols for targeted exams where dose is matched to indication/reason for exam; i.e. extremities or head) *Use of iterative reconstruction technique DLP: 1180 mGy-cm. FINDINGS: Right orbital frontal craniotomy/craniectomy redemonstrated with associated underlying encephalomalacia and gliosis within the anteroinferior right frontal lobe. Mild patchy subcortical and periventricular white matter low-attenuation changes redemonstrated, statistically related to chronic microangiopathic gliosis. No acute territorial infarct. No intracranial hemorrhage or extra-axial collection. The mastoid air cells and visualized portions of the paranasal sinuses are well-aerated. Atlantooccipital alignment is maintained. The vertebral bodies and posterior elements align normally. No acute fracture or subluxation. Vertebral body heights are maintained. Chronic nonunited fractures of the C6, C7-T1 spinous processes. End plate osteophytes present at C5-C6 with accompanying loss of disc space height. The paraspinal soft tissues are unremarkable. Imaged lung apices demonstrate mild emphysema. CT/CT head/brain wo con IMPRESSION: No acute intracranial pathology. No cervical spine fracture or malalignment. Chronic findings as above.
--- NOTE | ~2021-08-04 | XR_ITS ---
EXAMINATION: XR SHOULDER, LEFT CLINICAL INFORMATION: Pain status post fall COMPARISON: 04/21/2021 TECHNIQUE: Three views of the left shoulder. FINDINGS: No acute fracture or dislocation. Healed fracture deformity of the clavicular diaphysis redemonstrated. Small marginal osteophytes of the acromioclavicular joint. Enthesopathic changes evident at the greater tuberosity with trace calcific rotator cuff tendinosis. XR/XR shoulder LT min 2V IMPRESSION: No acute fracture or dislocation. Degenerative changes as described.
[2021-08-04 22:34] VITALS: BP 136/88; PULSE 78; O2SAT 95
[2021-08-04 22:36] VITALS: RESP 18; BMI 21.4
[2021-08-04 22:48] VITALS: BP 114/66; PULSE 90; RESP 16; O2SAT 94
[2021-08-04 23:45] VITALS: RESP 16; O2SAT 95
--- NOTE | 2021-08-04 23:46 | PC.NURSE ---
pt yelling out for help, pt asked what is wrong, pt c/o SOB, Sp02 checked, lung sounds auscultated. pt reassured. PA made aware
[2021-08-05 01:34] VITALS: BP 118/67; PULSE 68; RESP 14; O2SAT 95
--- NOTE | 2021-08-05 01:35 | PC.NURSE ---
pt resting in hw bed. in no distress at this time
--- NOTE | 2021-08-05 01:49 | ED.GENADULT ---
HPI - General Adult General Chief complaint: ETOH/Substance Use Stated complaint: chronic alcohol abuse Time Seen by Provider: 08/04/21 23:51 Source: patient Mode of arrival: ambulatory Limitations: no limitations History of Present Illness HPI narrative: 61-year-old male presents to ED seeking detox services and left shoulder pain after drinking 3 days ago. Patient recently discharged from rehab 3 days ago and started drinking again. Patient states he fell on his left shoulder 3 days ago was seen at [facility] and has pain in left shoulder ever since since. Patient denies any other complaints. Related Data Home Medications Medication Instructions Recorded Confirmed apixaban 5 mg tablet (Eliquis) 1 tab PO BID 05/11/21 07/23/21 docusate sodium 100 mg capsule 1 cap PO BID 07/23/21 07/23/21 doxepin 10 mg capsule 1 cap PO BEDTIME 07/23/21 07/23/21 melatonin 3 mg tablet 1 tab PO BEDTIME 07/23/21 07/23/21 multivitamin with minerals-ferrous 1 tab PO DAILY 07/23/21 07/23/21 sulfate 4.5 mg iron tablet (One Daily Multivitamins with Minerals) naltrexone 50 mg tablet 1 tab PO DAILY 07/23/21 07/23/21 tiotropium bromide 1.25 2 puff INHALATION DAILY 07/23/21 07/23/21 mcg/actuation mist for inhalation (Spiriva Respimat) albuterol sulfate 90 mcg/actuation 2 puff INHALATION Q4H PRN 07/24/21 07/24/21 aerosol inhaler ferrous sulfate 325 mg (65 mg 325 mg PO DAILY 07/24/21 07/24/21 iron) tablet (FeroSul) mirtazapine 15 mg tablet 1 tab PO BEDTIME 07/24/21 07/24/21 Allergies Allergy/AdvReac Type Severity Reaction Status Date / Time Peanut Butter Allergy Facial Verified 02/05/21 22:58 Swelling raspberry Allergy Facial Verified 02/05/21 22:58 Swelling Review of Systems Review of Systems: wants detox. left shoulder pain after falling unto left shoulder after drinking 3 days ago Yes all other systems are reviewed and are negative PMFSH Past Medical History Medical History Afib Alcohol abuse Asthma COPD (chronic obstructive pulmonary disease) Neuropathy Social History Social History Alcohol intake: current Alcohol intake frequency: 3 or more drinks per day Alcohol type: hard liquor Patient Tobacco Use Status: Current everyday Tobacco user Substance Use Type: Marijuana Advance Directives: No Advance Directives Information Provided: No Physical Exam ED Vital Signs: Vital Signs - 24 hr 08/04/21 22:36 08/04/21 22:48 08/04/21 23:45 Pulse Rate 90 Respiratory Rate 18 16 16 Blood Pressure 114/66 Pulse Oximetry 94 95 08/05/21 01:34 Pulse Rate 68 Respiratory Rate 14 Blood Pressure 118/67 Pulse Oximetry 95 BMI result Body Mass Index 21.4 Const General: cooperative, healthy appearing, comfortable, no acute distress, well developed, alert, awake and Physically active Orientation/consciousness: patient oriented x3 HENMT Head: Yes normal to inspection, Yes No palpable skull fracture present, Yes normocephalic, Yes atraumatic, No abrasion, No Acrocyanosis present, No Blair's sign, No contusion, No cranial bruits, No hematoma, No laceration, No occipital foramen tenderness, No palpable skull fracture, No raccoon eyes, No scalp lesion, No scalp tenderness, No Temporal artery tenderness present and No periorbital ecchymosis Eyes General: appearance normal, both eyes and all related structures Neck Neck: Yes normal visual inspection, Yes full ROM, Yes no lymphadenopathy, Yes no meningeal signs, Yes trachea midline, Yes supple, No anterior neck swelling and No tender Chest Chest palpation & inspection: normal inspection of the chest and normal palpation of entire chest wall Resp Effort & Inspection: normal respiratory effort and able to speak in complete sentences Auscultation: clear to auscultation bilaterally Cardio Jugular venous distension: no JVD Heart sounds: S1 normal heart sound present and S2 normal heart sound present GI Inspection: Yes normal to inspection and No abdominal wall ecchymosis Palpation (GI): Soft to palpation, not firm, nontender, no guarding and not rigid General: No CVA tenderness and Yes no CVA tenderness Back/Spine/Pelvis Back: no CVA tenderness, No CVA tenderness and No back tenderness Skin General skin exam: no rashes or lesions noted and elasticity normal Neuro General: patient oriented x3, gait normal, no meningeal signs and CN's II-XI intact bilaterally Cranial nerves: Yes CN's II-XII intact bilaterally Extrem Other: mild left shoulder tenderness on palpation. Vascular, motor, and nuero exam of extremities is intact. General: Yes normal to inspection and Yes full ROM Psych Appearance: grossly normal, well kempt and not disheveled Course Course Course Narrative: Due to patient falling 3 days ago while drinking and results and ED discharge papers from [facility] not indicate any imaging. Patient is sent for his CT scan of head and cervical spine and shoulder x-ray. Reevaluation(s) Reevaluation #1: Images are normal. Patient given resources for detox program for follow-up. Patient is safe for discharge Time: 02:05 Medical Decision Making MDM Narrative Medical decision making narrative: Fall. ALcohol abuse Discharge Plan Discharge Clinical Impression: Alcohol abuse Patient Disposition: Home, Self-Care Instructions: Abuse of Alcohol (DC) Additional Instructions: You were given lists of detox programs. Please call them for a bed. Return to the ED for any suicidal/homicidal ideation, any physical complaints, or any other concerning symptoms. Prescriptions: No Action naltrexone 50 mg tablet 1 tab PO DAILY 0RF melatonin 3 mg tablet 1 tab PO BEDTIME 0RF doxepin 10 mg capsule 1 cap PO BEDTIME 0RF docusate sodium 100 mg capsule 1 cap PO BID 0RF Spiriva Respimat 1.25 mcg/actuation mist 2 puff inhalation DAILY 0RF One Daily Multi-Vit w-Mineral 4.5 mg iron tablet 1 tab PO DAILY 0RF ferrous sulfate [FeroSul] 325 mg (65 mg iron) tablet 325 mg PO DAILY 0RF mirtazapine 15 mg tablet 1 tab PO BEDTIME 0RF albuterol sulfate 90 mcg/actuation HFA aerosol inhaler 2 puff inhalation Q4H PRN (Reason: Wheezing) 0RF Eliquis 5 mg tablet 1 tab PO BID 0RF Print Language: Andorran
== END 2021-08-05 02:19 | disposition home or self-care (01) ==
PROVIDERS: Emergency Provider Internal Medicine; PCP Internal Medicine
DX: F10.10 Alcohol abuse, uncomplicated (principal); Y90.9 Presence of alcohol in blood, level not specified; M25.512 Pain in left shoulder; Z91.81 History of falling; F17.200 Nicotine dependence, unspecified, uncomplicated; F12.90 Cannabis use, unspecified, uncomplicated
CPT/HCPCS: 70450; 72125; 73030; 99284

== ENCOUNTER 2021-08-08 08:06 | Emergency (ER) | payer OTHER, SELFPAY ==
[2021-08-08 08:10] VITALS: BP 110/60; PULSE 90; O2SAT 96
--- NOTE | 2021-08-08 08:13 | ED.ALCOHOL ---
HPI - Alcohol General Chief Complaint: ETOH/Substance Use Stated Complaint: etoh - seeking detox Time Seen by Provider: 08/08/21 08:13 Source: patient Mode of arrival: EMS Limitations: other (intoxication) History of Present Illness HPI narrative: patient brought in for detox MD complaint: alcohol dependence Last drink: Just prior to admission Chronic alcohol use: Yes Previous visits for alcohol intoxication: Yes Recent trauma: No Associated symptoms: denies other symptoms Related Data Home Medications Medication Instructions Recorded Confirmed apixaban 5 mg tablet (Eliquis) 1 tab PO BID 05/11/21 07/23/21 docusate sodium 100 mg capsule 1 cap PO BID 07/23/21 07/23/21 doxepin 10 mg capsule 1 cap PO BEDTIME 07/23/21 07/23/21 melatonin 3 mg tablet 1 tab PO BEDTIME 07/23/21 07/23/21 multivitamin with minerals-ferrous 1 tab PO DAILY 07/23/21 07/23/21 sulfate 4.5 mg iron tablet (One Daily Multivitamins with Minerals) naltrexone 50 mg tablet 1 tab PO DAILY 07/23/21 07/23/21 tiotropium bromide 1.25 2 puff inhalation DAILY 07/23/21 07/23/21 mcg/actuation mist for inhalation (Spiriva Respimat) albuterol sulfate 90 mcg/actuation 2 puff inhalation Q4H PRN Wheezing 07/24/21 07/24/21 aerosol inhaler ferrous sulfate 325 mg (65 mg 325 mg PO DAILY 07/24/21 07/24/21 iron) tablet (FeroSul) mirtazapine 15 mg tablet 1 tab PO BEDTIME 07/24/21 07/24/21 Allergies Allergy/AdvReac Type Severity Reaction Status Date / Time Peanut Butter Allergy Facial Verified 02/05/21 22:58 Swelling raspberry Allergy Facial Verified 02/05/21 22:58 Swelling Review of Systems Constitutional: Constitutional: Reports no additional constitutional complaints Eyes: Eyes: Reports no additional eye complaints ENT: Denies dizziness Cardiovascular: Cardiovascular: Reports no additional cardiovascular complaints Respiratory: Respiratory: Reports as per HPI Gastrointestinal: Gastrointestinal: Reports no additional gastrointestinal complaints Musculoskeletal: Musculoskeletal: Reports no additional musculoskeletal complaints Integumentary/Breasts: Skin/Breast: Denies rash Neurologic: Reports system reviewed and no additional complaints, except as documented, Denies dizziness and Denies Sensory deficit (Neuro) Psychiatric: Psychiatric: Denies anxiety [facility] Past Medical History Medical History Afib Alcohol abuse Asthma COPD (chronic obstructive pulmonary disease) Neuropathy Social History Social History Alcohol intake: current Alcohol intake frequency: 3 or more drinks per day Alcohol type: hard liquor Patient Tobacco Use Status: Current everyday Tobacco user Substance Use Type: Marijuana Advance Directives: No Advance Directives Information Provided: No Physical Exam ED Vital Signs: Vital Signs - 24 hr 08/08/21 08:20 08/08/21 08:32 08/08/21 10:55 Temperature 97.4 F Pulse Rate 95 87 89 Respiratory Rate 18 16 18 Blood Pressure 133/84 97/58 L Pulse Oximetry 95 93 Oxygen Delivery Method Room Air Room Air BMI result Body Mass Index 21.4 Const Other: thin frail, looking older than stated age Orientation/consciousness: oriented to person and patient oriented x3 Limitations: no limitations HENMT Head: Yes normal to inspection Ears: external ears normal General nose exam: Normal external nose present Mouth: Normal oral and palatal mucosa present and oropharynx normal Throat: Yes posterior oropharynx normal Eyes General: appearance normal, both eyes and all related structures Neck Neck: Yes normal visual inspection Chest Chest palpation & inspection: normal inspection of the chest Resp Other: slight wheeze bilaterally Cardio Jugular venous distension: no JVD Rate: regular rate Rhythm: regular rhythm Heart sounds: S1 normal heart sound present and S2 normal heart sound present GI Inspection: Yes normal to inspection Palpation (GI): Soft to palpation, nontender and No hepatosplenomegaly present Auscultation: normal bowel sounds General: Yes no CVA tenderness Back/Spine/Pelvis Back: no CVA tenderness Skin General skin exam: no rashes or lesions noted Neuro General: oriented to person and patient oriented x3 Cranial nerves: Yes CN's II-XII intact bilaterally Motor exam (neuro): 5/5 motor strength present throughout Sensory Exam: No Sensory deficit (Neuro) Extrem General: Yes normal to inspection Psych Appearance: grossly normal Course Reevaluation(s) Reevaluation #1: seen by CARE team patient refusing. will dc home with sober ride. Time: 11:36 MDM - Alcohol Lab Data Result diagrams: 08/08/21 08:39 08/08/21 08:39 Labs: Lab Results 08/08/21 08/08/21 08/08/21 Range/Units 08:32 08:39 08:39 WBC 3.3 L (4.8-10.8) X10*3/uL RBC 4.36 L (4.60-5.80) X10*6/uL Hgb 12.5 L (14.0-18.0) g/dl Hct 37.9 L (42.0-52.0) % MCV 86.9 (80.0-98.0) fL MCH 28.7 (27.0-33.0) pg MCHC 33.0 (31.0-36.0) g/dl RDW 17.0 H (11.0-16.0) % Plt Count 168 (160-400) X10*3/uL MPV 9.6 (9.4-12.4) fL Immature Gran % (Auto) 0.3 (0.0-0.4) % Neut % (Auto) 44.7 L (45-73) % Lymph % (Auto) 36.9 (20-40) % [place] % (Auto) 12.3 H (2-11) % Eos % (Auto) 4.0 (0-4) % Baso % (Auto) 1.8 (0-2) % Lymph # (Auto) 1.2 (1.2-4.9) X10*3/uL [place] # (Auto) 0.4 (0.1-1.2) X10*3/uL Eos # (Auto) 0.1 (0.0-0.4) X10*3/uL Baso # (Auto) 0.1 (0.0-0.2) X10*3/uL Abs Immat Gran (auto) 0.01 (0.00-0.03) X10*3/uL Absolute Neuts (auto) 1.5 L (2.0-8.3) x10*3/uL Absolute Nucleated RBC 0.000 (0.0-0.012) X10*3/uL Nucleated RBC % (auto) 0.0 (0.0-0.2) /100WBC Sodium 142 (135-145) mmol/L Potassium 4.3 (3.3-5.1) mmol/L Chloride 104 (96-108) mmol/L Carbon Dioxide 26 (22-29) mmol/L Anion Gap 16 (12-20) BUN 9 (9-16) mg/dL Creatinine 0.83 (0.5-1.4) mg/dL Estim Creat Clear Calc 86.9 Estimated GFR > 60 Random Glucose 93 (60-115) mg/dL Calcium 9.1 (8.4-10.2) mg/dL Total Bilirubin 0.5 (0.0-1.0) mg/dL Direct Bilirubin 0.3 (0.0-0.5) mg/dL AST 26 (5-37) U/L ALT 16 (0-40) U/L Alkaline Phosphatase 113 (39-117) U/L Total Protein 7.5 (6.5-8.0) g/dL Albumin 4.1 (3.5-5.0) g/dL Ethyl Alcohol mg/dL COVID-19 (NELY) Negative (Negative) COVID-19 Clin Com See Note 08/08/21 Range/Units 08:39 WBC (4.8-10.8) X10*3/uL RBC (4.60-5.80) X10*6/uL Hgb (14.0-18.0) g/dl Hct (42.0-52.0) % MCV (80.0-98.0) fL MCH (27.0-33.0) pg MCHC (31.0-36.0) g/dl RDW (11.0-16.0) % Plt Count (160-400) X10*3/uL MPV (9.4-12.4) fL Immature Gran % (Auto) (0.0-0.4) % Neut % (Auto) (45-73) % Lymph % (Auto) (20-40) % [place] % (Auto) (2-11) % Eos % (Auto) (0-4) % Baso % (Auto) (0-2) % Lymph # (Auto) (1.2-4.9) X10*3/uL [place] # (Auto) (0.1-1.2) X10*3/uL Eos # (Auto) (0.0-0.4) X10*3/uL Baso # (Auto) (0.0-0.2) X10*3/uL Abs Immat Gran (auto) (0.00-0.03) X10*3/uL Absolute Neuts (auto) (2.0-8.3) x10*3/uL Absolute Nucleated RBC (0.0-0.012) X10*3/uL Nucleated RBC % (auto) (0.0-0.2) /100WBC Sodium (135-145) mmol/L Potassium (3.3-5.1) mmol/L Chloride (96-108) mmol/L Carbon Dioxide (22-29) mmol/L Anion Gap (12-20) BUN (9-16) mg/dL Creatinine (0.5-1.4) mg/dL Estim Creat Clear Calc Estimated GFR Random Glucose (60-115) mg/dL Calcium (8.4-10.2) mg/dL Total Bilirubin (0.0-1.0) mg/dL Direct Bilirubin (0.0-0.5) mg/dL AST (5-37) U/L ALT (0-40) U/L Alkaline Phosphatase (39-117) U/L Total Protein (6.5-8.0) g/dL Albumin (3.5-5.0) g/dL Ethyl Alcohol 274 mg/dL COVID-19 (NELY) (Negative) COVID-19 Clin Com Discharge Plan Discharge Clinical Impression: Alcohol abuse, Alcoholic intoxication Patient Disposition: Home, Self-Care Instructions: Alcohol Intoxication (ED), Abuse of Alcohol (ED) Prescriptions: No Action naltrexone 50 mg tablet 1 tab PO DAILY melatonin 3 mg tablet 1 tab PO BEDTIME doxepin 10 mg capsule 1 cap PO BEDTIME docusate sodium 100 mg capsule 1 cap PO BID Spiriva Respimat 1.25 mcg/actuation mist 2 puff inhalation DAILY One Daily Multi-Vit w-Mineral 4.5 mg iron tablet 1 tab PO DAILY ferrous sulfate [FeroSul] 325 mg (65 mg iron) tablet 325 mg PO DAILY mirtazapine 15 mg tablet 1 tab PO BEDTIME albuterol sulfate 90 mcg/actuation HFA aerosol inhaler 2 puff inhalation Q4H PRN (Reason: Wheezing) Eliquis 5 mg tablet 1 tab PO BID Referrals: Cristhian Delgado MD [Primary Care Provider] -
[2021-08-08 08:20] VITALS: BP 133/84; PULSE 95; RESP 18; O2SAT 95; BMI 21.4
[2021-08-08] MEDS: Albuterol Sulfate 90 MCG 8 GM INHALER 4 PUFF INHALE (08:31)
[2021-08-08 08:32] VITALS: PULSE 87; RESP 16; O2SAT 96
[2021-08-08 08:44] LABS: MANUAL DIFF FLAG NO
[2021-08-08 08:47] LABS: Basophils Absolute Auto 0.1 X10*3/uL (0.0-0.2); Basophils Percent Auto 1.8 % (0-2); Eosinophils Absolute Auto 0.1 X10*3/uL (0.0-0.4); Hematocrit 37.9 % (42.0-52.0); Hemoglobin 12.5 g/dl (14.0-18.0); Imm Gran Abs Auto 0.01 X10*3/uL (0.00-0.03); Imm Gran Pct Auto 0.3 % (0.0-0.4); Lymphocytes Absolute Auto 1.2 X10*3/uL (1.2-4.9); Lymphocytes Percent Auto 36.9 % (20-40); Mean Corpuscular Hemoglobin 28.7 pg (27.0-33.0); Mean Corpuscular Volume 86.9 fL (80.0-98.0); Mean Platelet Volume 9.6 fL (9.4-12.4); Monocytes Absolute Auto 0.4 X10*3/uL (0.1-1.2); Monocytes Percent Auto 12.3 % (2-11); Neutrophils Absolute Auto 1.5 x10*3/uL (2.0-8.3); Neutrophils Percent Auto 44.7 % (45-73); Platelet Count 168 X10*3/uL (160-400); Red Blood Count 4.36 X10*6/uL (4.60-5.80); White Blood Count 3.3 X10*3/uL (4.8-10.8)
[2021-08-08 08:59] LABS: Ethanol 274 mg/dL
[2021-08-08 09:03] LABS: Alanine Aminotransferase 16 U/L (0-40); Albumin Level 4.1 g/dL (3.5-5.0); Alkaline Phosphatase 113 U/L (39-117); Anion Gap 16 (12-20); Aspartate Amino Transferase 26 U/L (5-37); Bilirubin Direct 0.3 mg/dL (0.0-0.5); Bilirubin Total 0.5 mg/dL (0.0-1.0); Blood Urea Nitrogen 9 mg/dL (9-16); Calcium 9.1 mg/dL (8.4-10.2); Carbon Dioxide 26 mmol/L (22-29); Chloride 104 mmol/L (96-108); Creatinine Clr Calc Pharmacy 86.9; Estimated Glomerular Filt Rate > 60; Glucose Random 93 mg/dL (60-115); Potassium 4.3 mmol/L (3.3-5.1); Sodium 142 mmol/L (135-145); Total Protein 7.5 g/dL (6.5-8.0)
[2021-08-08 09:05] LABS: COVID-19 Test Negative (Negative); IDNOW Serial# 16C4AD1C
[2021-08-08 10:55] VITALS: BP 97/58; PULSE 89; RESP 18; TEMP 36.3; O2SAT 93
--- NOTE | 2021-08-08 11:30 | PC.NURSE ---
Assumed care of this pt at 1015, pt has been isolative mostly, lying in bed, denies symptoms of withdrawal, somewhat irritable, demanding to leave and be discharged home instead of detox be elsewhere.
--- NOTE | 2021-08-08 12:03 | MHC.RECOVSUP ---
Recovery Support note: Patient is a 61 year old [place] speaking male who presented to [facility] ED seeking detox. Patient reports he only wants to go to [facility] or [facility]. [facility] does not have any open beds today. Patient referred to [facility] and completed phone intake. Patient is now reporting that he would like to go home. Patient not willing to wait to hear back from [facility]. Patient states I just came to the hospital to sober up so I wouldn't fall around my house. Discussed case with ED physician, plan for patient to discharge and go home via [place]. Patient's sister called and patient approved this film writer to discuss his situation with her. Sister provided with information related to this ED visit and information on section 35. Discussed case with RN.
== END 2021-08-08 13:15 | disposition home or self-care (01) ==
PROVIDERS: Emergency Provider Emergency Medicine; PCP Internal Medicine
DX: F10.129 Alcohol abuse with intoxication, unspecified (principal); Y90.8 Blood alcohol level of 240 mg/100 ml or more; J44.9 Chronic obstructive pulmonary disease, unspecified; Z20.822 Contact with and (suspected) exposure to COVID-19
CPT/HCPCS: 36415; 80048; 80076; 82077; 85025; 87635; 94640; 99284

== ENCOUNTER 2021-08-10 16:20 | Emergency (ER) | payer OTHER, SELFPAY ==
--- NOTE | ~2021-08-10 | CT_ITS ---
EXAMINATION: CT CERVICAL SPINE without contrast CLINICAL INFORMATION: Reason for Exam Fall, neck pain COMPARISON: Prior study 08/05/2021 TECHNIQUE: Computed axial sagittal and coronal images acquired using department's standard protocol. This CT examination was performed using dose optimization techniques as appropriate, variously including the following: *Automated exposure control *Adjustment of mA and/or kV according to patient size (this includes techniques or standardized protocols for targeted exams where dose is matched to indication/reason for exam; i.e. 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 This has not changed chronic. DISCS: Loss of disc height and developed osteophyte from the edges of endplates especially at C5-C6 suggests underlying degenerative disc disease. C1-C2: There is no CT evidence of significant osseous narrowing of the central canal or neural foramen. C2-C3: There is no CT evidence of significant osseous narrowing of the central canal or neural foramen. C3-C4: There is no CT evidence of significant osseous narrowing of the central canal or neural foramen. C4-C5: There is no CT evidence of significant osseous narrowing of the central canal or neural foramen. C5-C6: There is no CT evidence of significant osseous narrowing of the central canal or neural foramen. C6-C7: There is no CT evidence of significant osseous narrowing of the central canal or neural foramen. C7-T1: There is no CT evidence of significant osseous narrowing of the central canal or neural foramen. PARAVERTEBRAL SOFT TISSUE: Paravertebral soft tissues unremarkable. CT/CT cervical spine wo con IMPRESSION: *No fracture or dislocation. *Loss of disc height and developed osteophyte from the edges of endplates at multiple levels suggest underlying degenerative disc disease. No significant osseous a stenosis of central canal or neural foramen. 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
--- NOTE | ~2021-08-10 | CT_ITS ---
EXAMINATION: CT abdomen pelvis wo con CLINICAL INFORMATION: Reason for Exam fall, ams, abd pain COMPARISON: No prior CT available for comparison. TECHNIQUE: Multidetector volumetric imaging was performed from the superior aspect of the liver through the pubic symphysis , noncontrasted study. Sagittal and coronal reformatted images were obtained on the technologist's workstation. This CT examination was performed using dose optimization techniques as appropriate, variously including the following: *Automated exposure control *Adjustment of mA and/or kV according to patient size (this includes techniques or standardized protocols for targeted exams where dose is matched to indication/reason for exam; i.e. extremities or head) *Use of iterative reconstruction technique DLP: 413 mGy-cm FINDINGS: LOWER THORAX: Included lung bases are clear. HEPATOBILIARY: Diffusely hypodense liver suggesting hepatic steatosis. GALLBLADDER: Gallbladder is distended, there are multiple gallstones the largest measure up to 1.5 cm lodged at the gallbladder neck. No pericholecystic fluid collection or fat stranding. SPLEEN: Spleen is normal in size. PANCREAS: No focal mass or ductal dilatation. STOMACH AND GASTROINTESTINAL TRACT: There is fullness at the the gastroesophageal junction although nonspecific, commonly found to be nondistended sliding hiatal hernia, this can be further evaluated with barium esophagogram if clinically indicated. Stomach is grossly unremarkable. There is diverticulosis coli, no CT evidence of acute diverticulitis. No evidence of bowel obstruction. No CT evidence of appendicitis. ADRENALS: No adrenal nodules. KIDNEYS/URETERS: Right kidney is small atrophic, there is compensatory hypertrophy of the left kidney. No kidney stone or hydronephrosis. Perinephric fat are clear. Ureters are nondilated normal in diameter. URINARY BLADDER: Partially decompressed. PELVIC VISCERA: Unremarkable PERITONEUM: No free air or fluid. LYMPH NODES: No lymphadenopathy. VASCULAR:There is IVC filter in place properly positioned the tip of which is at the level of L2. Aorta is normal in diameter. Mild aortic calcification present. BONES, ABDOMINAL WALL AND SOFT TISSUES: There is calcified structure embedded in the soft tissue of the back roughly 2.3 x 1.5 cm probably calcified injection granuloma. There are degenerative disease of the lumbar spine, mild anterior wedging compression of T12 indeterminant age. CT/CT abdomen pelvis wo con IMPRESSION: *No CT evidence of acute intra-abdominal process to explain patient's pain symptoms. *Diverticulosis without evidence of acute diverticulitis. *Cholelithiasis, distended gallbladder. *Diffuse hypodense liver suggesting hepatic steatosis. *Small atrophic right kidney, compensatory hypertrophy left kidney. *Calcified structure embedded in the subcutaneous fat of the back probably calcified granuloma. *IVC filter in place properly positioned. *Mild partial compression anterior wedging of T12 indeterminant age.
--- NOTE | ~2021-08-10 | CT_ITS ---
EXAMINATION: CT HEAD WITHOUT CONTRAST CT CERVICAL SPINE WITHOUT CONTRAST CLINICAL INFORMATION: 61-year-old male status post fall with pain COMPARISON: 08/05/2021, CT scan of head and head and cervical spine from 07/24/2011 TECHNIQUE: CT of the head and cervical spine were performed without intravenous contrast. Multiplanar reformats were rendered and reviewed. This CT examination was performed using dose optimization techniques as appropriate, variously including the following: *Automated exposure control *Adjustment of mA and/or kV according to patient size (this includes techniques or standardized protocols for targeted exams where dose is matched to indication/reason for exam; i.e. extremities or head) *Use of iterative reconstruction technique DLP: 217 mGy-cm. FINDINGS: CT head: No intracranial hemorrhage, large infarction, or mass lesion is seen. No extra-axial collection is appreciated. The ventricles are normal in size and configuration without evidence of hydrocephalus.. Patient is status post right frontal orbital craniotomy with underlying encephalomalacia and gliosis in the right frontal lobe. The visualized paranasal sinuses and mastoid air cells are clear. CT cervical spine: The cervical alignment is normal. The craniocervical junction is normal. The vertebral body heights are maintained. No cervical spine fracture is seen. There are mild degenerative changes with narrowing cough C5-C6 with marginal spurring. The paraspinal soft tissues are within normal limits. The partially imaged lung apices are clear. CT/CT head/brain wo con IMPRESSION: CT head: No acute intracranial finding. Chronic changes as described CT cervical spine: No cervical spine fracture or traumatic malalignment identified. Mild degenerative changes at the level of C5-C6
[2021-08-10 16:26] VITALS: BP 108/74; PULSE 96; RESP 18; TEMP 36.5; O2SAT 94; BMI 25.7
--- NOTE | 2021-08-10 16:29 | ED_ITS ---
HPI - Alcohol General Chief Complaint: ETOH/Substance Use Stated Complaint: detox Time Seen by Provider: 08/10/21 16:28 Source: patient and EMS Mode of arrival: EMS Limitations: no limitations History of Present Illness HPI narrative: [age] old history emergency department patient just left [facility] for acute alcohol intoxication this morning, patient reports he drinks 1 pt of [place]. He tells me that daily usually drinks 2 pt of [place] in a sleeve of nips. Patient reports that he thinks he fell, however he is unsure but he thinks he fell and hurt his left elbow. Patient very poor historian, appears acutely intoxicated. Not suicidal or homicidal. Denies any medical complaints at this time. To note patient is on Eliquis has been taking his meds as prescribed. No history of alcohol withdrawal seizures. MD complaint: alcohol intoxication, alcohol dependence and desires rehab Last drink: Hours (ago) (6) Chronic alcohol use: Yes Previous visits for alcohol intoxication: Yes Recent trauma: Yes Associated symptoms: denies other symptoms Treatments prior to arrival: none Related Data Home Medications Medication Instructions Recorded Confirmed apixaban 5 mg tablet (Eliquis) 1 tab PO BID 05/11/21 08/10/21 docusate sodium 100 mg capsule 1 cap PO DAILY 07/23/21 08/10/21 doxepin 10 mg capsule 1 cap PO BEDTIME 07/23/21 08/10/21 melatonin 3 mg tablet 1 tab PO BEDTIME 07/23/21 08/10/21 multivitamin with minerals-ferrous 1 tab PO DAILY 07/23/21 08/10/21 sulfate 4.5 mg iron tablet (One Daily Multivitamins with Minerals) naltrexone 50 mg tablet 1 tab PO DAILY 07/23/21 08/10/21 tiotropium bromide 1.25 2 puff inhalation DAILY 07/23/21 08/10/21 mcg/actuation mist for inhalation (Spiriva Respimat) albuterol sulfate 90 mcg/actuation 2 puff inhalation Q4H PRN Wheezing 07/24/21 08/10/21 aerosol inhaler mirtazapine 15 mg tablet 1 tab PO BEDTIME 07/24/21 08/10/21 acamprosate 333 mg tablet,delayed 2 tab PO TID 08/10/21 08/10/21 release clonidine HCl 0.1 mg tablet 1 tab PO TID 08/10/21 08/10/21 hydroxyzine HCl 50 mg tablet 1 tab PO TID 08/10/21 08/10/21 Allergies Allergy/AdvReac Type Severity Reaction Status Date / Time Peanut Butter Allergy Facial Verified 02/05/21 22:58 Swelling raspberry Allergy Facial Verified 02/05/21 22:58 Swelling Review of Systems Review of Systems: Constitutional : No Weight loss, No Fever, No Chills, No Fatigue, No Malaise ENT/Mouth : No sore throat, No Rhinorrhea Eyes: No Eye Pain, No Swelling, No Redness Cardiovascular : No Chest Pain, No SOB, No Dyspnea on Exertion, No Orthopnea, No Edema, No Palpitations Respiratory : No Cough, No Sputum, No Wheezing Gastrointestinal : No Nausea, No Vomiting, No Diarrhea, No Constipation, No abdominal Pain, No Hematochezia, No Melena Genitourinary : No Dysuria, No Urinary Frequency, No Hematuria, Musculoskeletal : + joint pain, No Myalgias, No Joint Swelling Skin : No Skin Lesions, No rash Neuro : No Weakness, No Numbness, No Dizziness, No Headache All other systems reviewed and are negative Yes all other systems are reviewed and are negative [facility] Past Medical History Attestation statement: The following information was validated with the patient. Source: old records reviewed and nursing notes reviewed Medical History Afib Alcohol abuse Asthma COPD (chronic obstructive pulmonary disease) Neuropathy Social History Social History Alcohol intake: current Alcohol intake frequency: 3 or more drinks per day Alcohol type: hard liquor Patient Tobacco Use Status: Current everyday Tobacco user Substance Use Type: Marijuana Advance Directives: No Advance Directives Information Provided: No Physical Exam ED Vital Signs: Vital Signs - 24 hr 08/10/21 16:26 Temperature 97.7 F Pulse Rate 96 Respiratory Rate 18 Blood Pressure 108/74 Pulse Oximetry 94 Oxygen Delivery Method Room Air BMI result Body Mass Index 25.7 Vital signs stable Appearance: Alert.? Oriented X3.? No acute distress.? Patient's smells like alcohol, appears to be acutely intoxicated. Head: Normocephalic, atraumatic, no step-offs or deformities Eyes: Pupils equal, round and reactive to light.? ENT: Pharynx normal.? Neck: Normal inspection.? Neck supple.? CVS: Normal heart rate and rhythm.? Pulses normal.? Respiratory: No respiratory distress.? Breath sounds normal.? Abdomen: Soft and nontender.? Skin: Skin warm and dry.? Normal skin color.? Normal skin turgor.? Extremities: No lower extremity edema.? No calf ttp. 5/5 strength to bilateral upper and lower extremities + abrasion to. Back: No midline tenderness, no C-spine tenderness, full range of motion, no CVA tenderness bilaterally Neuro: Oriented X 3.? No motor deficit.? No sensory deficit. CN 2-12 intact Course Reevaluation(s) Reevaluation #1: Patient is noted to have a pancytopenia which appears to be patient's baseline. No acute electrolyte abnormalities. Urine with trace leukocyte esterases however there are epithelial cells in the urine, unlikely that this is a UTI, no urinary symptoms. Toxicology positive for benzodiazepines, ethanol 266. COVID negative. CT of the abdomen and pelvis with diverticulosis, no evidence of acute intra abdominal processes, patient is noted to have cholelithiasis, however no pain with palpation to abdomen, a right atrophic right kidney, calcified imbedded structure in the subcutaneous fat of the back likely calcified granuloma, IVC filter in place properly positioned, compression anterior wedging of T12 of indeterminate age, not complaining of back pain no pain to palpation to back. CT of the cervical spine with no fractures or dislocation. Head CT with no acute intracranial findings. Chronic changes noted however. Patient requesting to go home, refusing to stay. I told patient if he has a safe ride I will allow him to go ride comes into the emergency department to get him. Patient tells me he will take a cab, I do not feel comfortable with this. Patient is to stay until tomorrow until he is sober. Time: 23:02 Reevaluation #2: At this time patient will be placed in physician observation to allow more time to be evaluated by the asset recovery specialist is in the morning and for patient to sober up. At time observation was started patient common cooperative no acute distress will continue to monitor. Time: 23:03 Reevaluation #3: Chest CT with no acute findings requiring intervention, patient is noted to have scattered nodules, no fractures no traumatic injury, secretions present within the trachea and the mainstem bronchi, diffuse mild bronchial wall thickening suggestive of bronchitis however patient denies cough or upper respiratory symptoms, denies fevers, chills, malaise. Patient will remain in observation until he is sober and has a safe ride home or he meets with a asset recovery specialist in the morning. Time: 00:58 MDM - Alcohol MDM Narrative Medical decision making narrative: 1630 61-year-old male presents with acute alcohol intoxication requesting detox. Reports a fall this morning however patient is poor historian and is unable to elaborate on this fall. Unsure LOC. On blood thinners. Upon physical examination patient appears to be acutely intoxicated with alcohol, smells like alcohol. He is noted to have an abrasion to the left elbow. Regular rate and rhythm. Lungs with faint wheezing. Neuro exam is nonfocal. Alert and oriented x4 Plan at this time is to obtain CT of the head, chest, abdomen as patient is poor historian is on Eliquis and had fall that he is unable to elaborate on. Patient is acutely intoxicated therefore a CT is indicated to rule out bleed, ICH, rib fractures. Will also order basic labs. In order to medically clear this patient. Plan is for patient to ultimately speak to the recovery coaches. Patient denying depression, anxiety, suicidal or homicidal ideation no need for [facility] referral at this time. Upon my initial exam patient's CIWA score is 1. Medical Records Attestation: I reviewed the patient's medical records. Lab Data Attestation: I reviewed the patient's lab results. Result diagrams: 08/10/21 16:59 08/10/21 16:59 Labs: Lab Results 08/10/21 08/10/21 08/10/21 Range/Units 16:41 16:59 16:59 WBC 3.7 L (4.8-10.8) X10*3/uL RBC 4.18 L (4.60-5.80) X10*6/uL Hgb 12.1 L (14.0-18.0) g/dl Hct 36.7 L (42.0-52.0) % MCV 87.8 (80.0-98.0) fL MCH 28.9 (27.0-33.0) pg MCHC 33.0 (31.0-36.0) g/dl RDW 17.3 H (11.0-16.0) % Plt Count 148 L (160-400) X10*3/uL MPV 9.6 (9.4-12.4) fL Immature Gran % (Auto) 0.3 (0.0-0.4) % Neut % (Auto) 47.3 (45-73) % Lymph % (Auto) 36.5 (20-40) % [place] % (Auto) 11.2 H (2-11) % Eos % (Auto) 3.3 (0-4) % Baso % (Auto) 1.4 (0-2) % Lymph # (Auto) 1.3 (1.2-4.9) X10*3/uL [place] # (Auto) 0.4 (0.1-1.2) X10*3/uL Eos # (Auto) 0.1 (0.0-0.4) X10*3/uL Baso # (Auto) 0.1 (0.0-0.2) X10*3/uL Abs Immat Gran (auto) 0.01 (0.00-0.03) X10*3/uL Absolute Neuts (auto) 1.7 L (2.0-8.3) x10*3/uL Absolute Nucleated RBC 0.000 (0.0-0.012) X10*3/uL Nucleated RBC % (auto) 0.0 (0.0-0.2) /100WBC Sodium 141 (135-145) mmol/L Potassium 4.1 (3.3-5.1) mmol/L Chloride 104 (96-108) mmol/L Carbon Dioxide 27 (22-29) mmol/L Anion Gap 14 (12-20) BUN 9 (9-16) mg/dL Creatinine 0.82 (0.5-1.4) mg/dL Estim Creat Clear Calc 103.8 Estimated GFR > 60 Random Glucose 82 (60-115) mg/dL Calcium 8.8 (8.4-10.2) mg/dL Magnesium 1.9 (1.6-2.6) mg/dL Total Bilirubin 0.7 (0.0-1.0) mg/dL AST 40 H D (5-37) U/L ALT 22 (0-40) U/L Alkaline Phosphatase 116 (39-117) U/L Total Protein 7.4 (6.5-8.0) g/dL Albumin 4.1 (3.5-5.0) g/dL Urine Color Urine Appearance Urine pH (5.0-8.0) Ur Specific [place] (1.005-1.025) Urine Protein (NEG-TRACE) MG/DL Urine Glucose (UA) (NEG) MG/DL Urine Ketones (NEG) MG/DL Urine Blood (NEG) Urine Nitrite (NEG) Ur Leukocyte Esterase (NEG) Urine RBC (0) /HPF Urine WBC (0-4) /HPF Ur Squamous Epith Cells /LPF Urine Bacteria /LPF Urine Opiates Screen (Not Detect) Urine Fentanyl Screen (Not Detect) Ur Barbiturates Screen (Not Detect) Ur Phencyclidine Scrn (Not Detect) Ur Amphetamines Screen (Not Detect) U Benzodiazepines Scrn (Not Detect) Urine Cocaine Screen (Not Detect) U Marijuana (THC) Screen (Not Detect) Ethyl Alcohol mg/dL COVID-19 (NELY) Negative (Negative) COVID-19 Clin Com See Note 08/10/21 08/10/21 08/10/21 Range/Units 16:59 18:25 18:25 WBC (4.8-10.8) X10*3/uL RBC (4.60-5.80) X10*6/uL Hgb (14.0-18.0) g/dl Hct (42.0-52.0) % MCV (80.0-98.0) fL MCH (27.0-33.0) pg MCHC (31.0-36.0) g/dl RDW (11.0-16.0) % Plt Count (160-400) X10*3/uL MPV (9.4-12.4) fL Immature Gran % (Auto) (0.0-0.4) % Neut % (Auto) (45-73) % Lymph % (Auto) (20-40) % [place] % (Auto) (2-11) % Eos % (Auto) (0-4) % Baso % (Auto) (0-2) % Lymph # (Auto) (1.2-4.9) X10*3/uL [place] # (Auto) (0.1-1.2) X10*3/uL Eos # (Auto) (0.0-0.4) X10*3/uL Baso # (Auto) (0.0-0.2) X10*3/uL Abs Immat Gran (auto) (0.00-0.03) X10*3/uL Absolute Neuts (auto) (2.0-8.3) x10*3/uL Absolute Nucleated RBC (0.0-0.012) X10*3/uL Nucleated RBC % (auto) (0.0-0.2) /100WBC Sodium (135-145) mmol/L Potassium (3.3-5.1) mmol/L Chloride (96-108) mmol/L Carbon Dioxide (22-29) mmol/L Anion Gap (12-20) BUN (9-16) mg/dL Creatinine (0.5-1.4) mg/dL Estim Creat Clear Calc Estimated GFR Random Glucose (60-115) mg/dL Calcium (8.4-10.2) mg/dL Magnesium (1.6-2.6) mg/dL Total Bilirubin (0.0-1.0) mg/dL AST (5-37) U/L ALT (0-40) U/L Alkaline Phosphatase (39-117) U/L Total Protein (6.5-8.0) g/dL Albumin (3.5-5.0) g/dL Urine Color YELLOW Urine Appearance CLEAR Urine pH 6.0 (5.0-8.0) Ur Specific [place] <= 1.005 (1.005-1.025) Urine Protein NEG (NEG-TRACE) MG/DL Urine Glucose (UA) NEG (NEG) MG/DL Urine Ketones NEG (NEG) MG/DL Urine Blood NEG (NEG) Urine Nitrite NEG (NEG) Ur Leukocyte Esterase TRACE H (NEG) Urine RBC 0-2 (0) /HPF Urine WBC 5-9 H (0-4) /HPF Ur Squamous Epith Cells 1+ /LPF Urine Bacteria TRACE /LPF Urine Opiates Screen Not Detected (Not Detect) Urine Fentanyl Screen Not Detected (Not Detect) Ur Barbiturates Screen Not Detected (Not Detect) Ur Phencyclidine Scrn Not Detected (Not Detect) Ur Amphetamines Screen Not Detected (Not Detect) U Benzodiazepines Scrn POSITIVE H (Not Detect) Urine Cocaine Screen Not Detected (Not Detect) U Marijuana (THC) Screen Not Detected (Not Detect) Ethyl Alcohol 266 mg/dL COVID-19 (NELY) (Negative) COVID-19 Clin Com Critical Care Time Critical Care Time Critical Care Time: No Discharge Plan Discharge Clinical Impression: Alcohol abuse, Alcoholic intoxication Patient Disposition: Home, Self-Care Instructions: Alcohol Intoxication (ED), Abuse of Alcohol (ED) Additional Instructions: Take your medications as prescribed. If you were prescribed antibiotics today, it is important that you take your medication to their entirety, do not skip any doses, do not finish them early. Follow-up with your primary care provider this week. Return to the emergency department with new or worsening symptoms. Such as fevers, chills, chest pain, shortness of breath, nausea, vomiting, dizziness, headache, vision changes, lethargy In case of emergency call 911 Prescriptions: No Action naltrexone 50 mg tablet 1 tab PO DAILY melatonin 3 mg tablet 1 tab PO BEDTIME doxepin 10 mg capsule 1 cap PO BEDTIME docusate sodium 100 mg capsule 1 cap PO DAILY Spiriva Respimat 1.25 mcg/actuation mist 2 puff inhalation DAILY One Daily Multi-Vit w-Mineral 4.5 mg iron tablet 1 tab PO DAILY mirtazapine 15 mg tablet 1 tab PO BEDTIME albuterol sulfate 90 mcg/actuation HFA aerosol inhaler 2 puff inhalation Q4H PRN (Reason: Wheezing) Eliquis 5 mg tablet 1 tab PO BID clonidine HCl 0.1 mg tablet 1 tab PO TID hydroxyzine HCl 50 mg tablet 1 tab PO TID acamprosate 333 mg tablet,delayed release (DR/EC) 2 tab PO TID Referrals: [facility] [Provider Group] - 2 days Physician,Unknown J [Primary Care Provider] - 2 days
[2021-08-10 17:03] LABS: MANUAL DIFF FLAG NO
[2021-08-10 17:04] LABS: COVID-19 Test Negative (Negative)
[2021-08-10 17:08] LABS: Basophils Absolute Auto 0.1 X10*3/uL (0.0-0.2); Basophils Percent Auto 1.4 % (0-2); Eosinophils Absolute Auto 0.1 X10*3/uL (0.0-0.4); Eosinophils Percent Auto 3.3 % (0-4); Hematocrit 36.7 % (42.0-52.0); Hemoglobin 12.1 g/dl (14.0-18.0); Imm Gran Abs Auto 0.01 X10*3/uL (0.00-0.03); Imm Gran Pct Auto 0.3 % (0.0-0.4); Lymphocytes Absolute Auto 1.3 X10*3/uL (1.2-4.9); Lymphocytes Percent Auto 36.5 % (20-40); Mean Corpuscular Hemoglobin 28.9 pg (27.0-33.0); Mean Corpuscular Volume 87.8 fL (80.0-98.0); Mean Platelet Volume 9.6 fL (9.4-12.4); Monocytes Absolute Auto 0.4 X10*3/uL (0.1-1.2); Monocytes Percent Auto 11.2 % (2-11); Neutrophils Absolute Auto 1.7 x10*3/uL (2.0-8.3); Neutrophils Percent Auto 47.3 % (45-73); Platelet Count 148 X10*3/uL (160-400); Red Blood Count 4.18 X10*6/uL (4.60-5.80); Red Cell Distribution Width 17.3 % (11.0-16.0); White Blood Count 3.7 X10*3/uL (4.8-10.8)
[2021-08-10 17:18] LABS: Ethanol 266 mg/dL
[2021-08-10 17:22] LABS: Alanine Aminotransferase 22 U/L (0-40); Albumin Level 4.1 g/dL (3.5-5.0); Alkaline Phosphatase 116 U/L (39-117); Anion Gap 14 (12-20); Aspartate Amino Transferase 40 U/L (5-37); Bilirubin Total 0.7 mg/dL (0.0-1.0); Blood Urea Nitrogen 9 mg/dL (9-16); Calcium 8.8 mg/dL (8.4-10.2); Carbon Dioxide 27 mmol/L (22-29); Chloride 104 mmol/L (96-108); Creatinine Clr Calc Pharmacy 103.8; Estimated Glomerular Filt Rate > 60; Glucose Random 82 mg/dL (60-115); Magnesium 1.9 mg/dL (1.6-2.6); Potassium 4.1 mmol/L (3.3-5.1); Sodium 141 mmol/L (135-145); Total Protein 7.4 g/dL (6.5-8.0)
--- NOTE | 2021-08-10 17:22 | PHA.MEDREC ---
Pharmacy Consult ? Medication Reconciliation Pharmacy has completed the medication reconciliation. Patient reports only taking eliquis, docusate and albuterol. He states he has a bunch of other medications that he should be taking. Per note patient may be intoxicated and not a good historian. Will let provider know.
[2021-08-10 18:30] LABS: Appearance Urine CLEAR; Color Urine YELLOW; Glucose Urine UA NEG (NEG); Leukocyte Esterase Urine TRACE (NEG); Nitrite Urine NEG (NEG); Specific Gravity - Urine <= 1.005 (1.005-1.025); Urine Blood NEG (NEG); Urine Ketones NEG (NEG); Urine Protein NEG (NEG-TRACE)
[2021-08-10 18:38] LABS: Bacteria Urine TRACE /LPF; RBC Urine 0-2 /HPF (0); Squamous Epithelial Cell Urine 1+ /LPF
[2021-08-10 18:39] LABS: UACC Culture Trigger YES
[2021-08-10 18:46] LABS: Amphetamine Screen Urine Not Detected (Not Detect); Barbiturates, Urine Not Detected (Not Detect); Benzodiazepines Screen Urine POSITIVE (Not Detect); Cannabinoid Screen Urine Not Detected (Not Detect); Cocaine Screen Urine Not Detected (Not Detect); Fentanyl, urine Not Detected (Not Detect); Opiate Screen Urine Not Detected (Not Detect); Phencyclidine Screen Urine Not Detected (Not Detect)
--- NOTE | 2021-08-11 05:45 | PC.NURSE ---
Patient slept through the night, no distress observed/reported, asymptomatic of withdrawal, denied SI/HI/AVH, patient requested d/c last night but has to stay because no ride was available, med rec completed, behavior appropriate, VSS, will continue to monitor.
[2021-08-11 05:49] VITALS: BP 131/77; PULSE 90; RESP 16; TEMP 36.9; O2SAT 92
[2021-08-11 07:59] VITALS: BP 112/58; PULSE 78; RESP 16; TEMP 36.6; O2SAT 94
--- NOTE | 2021-08-11 09:06 | MHC.RECOVSUP ---
Recovery Support note: Patient is a 61 year old [place]i speaking male who presented to [facility] ED on 08/10 seeking detox. This communications writer met with patient to inform him beds are available at [facility] and [facility] as he prefers these facilities. Patient is declining treatment at this time. Encouraged patient to contact [facility] from home to pursue an admission if he changes his mind. Patient acknowleges.
== END 2021-08-11 09:25 | disposition home or self-care (01) ==
PROVIDERS: Physician Assistant; Emergency Provider Internal Medicine
DX: F10.129 Alcohol abuse with intoxication, unspecified (principal); Y90.8 Blood alcohol level of 240 mg/100 ml or more; I48.91 Unspecified atrial fibrillation; J44.9 Chronic obstructive pulmonary disease, unspecified; Z79.01 Long term (current) use of anticoagulants; Z79.899 Other long term (current) drug therapy; Z91.81 History of falling; Z20.822 Contact with and (suspected) exposure to COVID-19
CPT/HCPCS: 70450; 71250; 72125; 74176; 80053; 80307; 81001; 82077; 83735; 85025; 87086; 87635; 99284

== ENCOUNTER 2021-08-15 00:54 | Emergency (ER) | payer OTHER, SELFPAY ==
[2021-08-15] VITALS (8 sets, daily range): BP systolic 101–126; BP diastolic 62–73; PULSE 70–81; RESP 12–18; TEMP 36.5–36.9; O2SAT 91–99; BMI 21.4
--- NOTE | ~2021-08-15 | XR_ITS ---
EXAMINATION: XR CHEST CLINICAL INFORMATION: Cough COMPARISON: 07/23/2021 TECHNIQUE: Frontal view of the chest was obtained. FINDINGS: Normal symmetric lung volumes. No parenchymal consolidation. No pleural effusion. No pneumothorax. Cardiomediastinal silhouette and pulmonary vascularity are within normal limits. No acute osseous abnormalities. XR/XR chest 1V IMPRESSION: No acute findings
[2021-08-15] MEDS: LORazepam 1 MG TABLET 2 MG PO (02:12)
--- NOTE | 2021-08-15 02:22 | ED_ITS ---
HPI - Alcohol General Chief Complaint: ETOH/Substance Use Stated Complaint: etoh Time Seen by Provider: 08/15/21 02:00 Source: patient Mode of arrival: EMS History of Present Illness HPI narrative: Patient alcoholic for more than 20 years with history of depression and DVT on Eliquis comes here as he feels that he is in withdrawal last drink was earlier today requesting to go to detox patient been to multiple times and detox never been sober for more than few days. Patient says that he did not drink today because he could not find more drinks. No nausea no vomiting feels slightly shaky no hallucination or delusions and afraid that he may go in withdrawal patient does have history of depression but stable at this time Related Data Home Medications Medication Instructions Recorded Confirmed apixaban 5 mg tablet (Eliquis) 1 tab PO BID 05/11/21 08/10/21 docusate sodium 100 mg capsule 1 cap PO DAILY 07/23/21 08/10/21 doxepin 10 mg capsule 1 cap PO BEDTIME 07/23/21 08/10/21 melatonin 3 mg tablet 1 tab PO BEDTIME 07/23/21 08/10/21 multivitamin with minerals-ferrous 1 tab PO DAILY 07/23/21 08/10/21 sulfate 4.5 mg iron tablet (One Daily Multivitamins with Minerals) naltrexone 50 mg tablet 1 tab PO DAILY 07/23/21 08/10/21 tiotropium bromide 1.25 2 puff inhalation DAILY 07/23/21 08/10/21 mcg/actuation mist for inhalation (Spiriva Respimat) albuterol sulfate 90 mcg/actuation 2 puff inhalation Q4H PRN Wheezing 07/24/21 08/10/21 aerosol inhaler mirtazapine 15 mg tablet 1 tab PO BEDTIME 07/24/21 08/10/21 acamprosate 333 mg tablet,delayed 2 tab PO TID 08/10/21 08/10/21 release clonidine HCl 0.1 mg tablet 1 tab PO TID 08/10/21 08/10/21 hydroxyzine HCl 50 mg tablet 1 tab PO TID 08/10/21 08/10/21 Allergies Allergy/AdvReac Type Severity Reaction Status Date / Time Peanut Butter Allergy Facial Verified 02/05/21 22:58 Swelling raspberry Allergy Facial Verified 02/05/21 22:58 Swelling Review of Systems Review of Systems: Yes all other systems are reviewed and are negative [facility] Past Medical History Medical History (Updated 08/15/21 @ 06:58 by Ismael Barrios MD) Asthma COPD (chronic obstructive pulmonary disease) DVT (deep venous thrombosis) Neuropathy Subdural hematoma Social History Social History Alcohol intake: current Alcohol intake frequency: 3 or more drinks per day Alcohol type: hard liquor Patient Tobacco Use Status: Current everyday Tobacco user Use of substances other than those prescribed or required for medical reasons: No Substance Use Type: Marijuana Advance Directives: No Physical Exam ED Vital Signs: Vital Signs - 24 hr 08/15/21 00:59 08/15/21 01:34 08/15/21 02:51 Temperature 97.7 F 97.7 F Pulse Rate 79 70 77 Respiratory Rate 16 16 Blood Pressure 124/71 124/70 101/68 Pulse Oximetry 94 99 94 Oxygen Delivery Method Room Air Room Air Room Air 08/15/21 04:04 08/15/21 06:02 Temperature 98.3 F Pulse Rate 78 79 Respiratory Rate 16 16 Blood Pressure 108/72 105/62 Pulse Oximetry 94 93 Oxygen Delivery Method Room Air Room Air BMI result Body Mass Index 21.4 Appearance: Alert. Oriented X3. No acute distress. etoh+ Eyes: PERRLA, No Nystagmus no pallor or icterus ENT: Pharynx normal. Oral Mucosa moist Neck: Normal inspection. Neck supple. CVS: Normal heart rate and rhythm. Pulses normal. Respiratory: No respiratory distress. Equal air entry bilateral, +wheezing no rales Abdomen: Soft and nontender. Bowel sounds are present, no mass palpable, no CVA tenderness Skin: Skin warm and dry. Normal skin color. Normal skin turgor. Extremities: No lower extremity edema. No calf tenderness Neuro: Oriented X 3. No motor deficit. No sensory deficit.No cerebellar signs , cranial nerves II-XII intact MDM - Alcohol MDM Narrative Medical decision making narrative: Patient with history of alcohol abuse requesting for detox medically cleared for detox will consult care team Differential Diagnosis Differential diagnosis: Likely alcohol dependence Lab Data Attestation: I reviewed the patient's lab results. Result diagrams: 08/15/21 02:19 08/15/21 02:19 Labs: Lab Results 06/08/15/21 08/15/21 Range/Units 02:19 02:19 02:19 WBC 4.2 L (4.8-10.8) X10*3/uL RBC 4.43 L (4.60-5.80) X10*6/uL Hgb 12.6 L (14.0-18.0) g/dl Hct 38.9 L (42.0-52.0) % MCV 87.8 (80.0-98.0) fL MCH 28.4 (27.0-33.0) pg MCHC 32.4 (31.0-36.0) g/dl RDW 18.0 H (11.0-16.0) % Plt Count 148 L (160-400) X10*3/uL MPV 9.4 (9.4-12.4) fL Immature Gran % (Auto) 0.2 (0.0-0.4) % Neut % (Auto) 55.8 (45-73) % Lymph % (Auto) 33.6 (20-40) % [place] % (Auto) 8.8 (2-11) % Eos % (Auto) 0.9 (0-4) % Baso % (Auto) 0.7 (0-2) % Lymph # (Auto) 1.4 (1.2-4.9) X10*3/uL [place] # (Auto) 0.4 (0.1-1.2) X10*3/uL Eos # (Auto) 0.0 (0.0-0.4) X10*3/uL Baso # (Auto) 0.0 (0.0-0.2) X10*3/uL Abs Immat Gran (auto) 0.01 (0.00-0.03) X10*3/uL Absolute Neuts (auto) 2.4 (2.0-8.3) x10*3/uL Absolute Nucleated RBC 0.000 (0.0-0.012) X10*3/uL Nucleated RBC % (auto) 0.0 (0.0-0.2) /100WBC PT 15.5 H (9.9-13.0) SEC INR 1.4 H (0.9-1.1) APTT 44.8 H (24.1-38.0) SEC Sodium 139 (135-145) mmol/L Potassium 3.6 (3.3-5.1) mmol/L Chloride 98 (96-108) mmol/L Carbon Dioxide 28 (22-29) mmol/L Anion Gap 17 (12-20) BUN 13 (9-16) mg/dL Creatinine 0.96 (0.5-1.4) mg/dL Estim Creat Clear Calc 75.1 Estimated GFR > 60 Random Glucose 176 H D (60-115) mg/dL Calcium 9.1 (8.4-10.2) mg/dL Magnesium 1.7 (1.6-2.6) mg/dL Total Bilirubin 1.0 (0.0-1.0) mg/dL AST 101 H (5-37) U/L ALT 48 H (0-40) U/L Alkaline Phosphatase 131 H (39-117) U/L Total Protein 8.0 (6.5-8.0) g/dL Albumin 4.4 (3.5-5.0) g/dL Urine Opiates Screen (Not Detect) Urine Fentanyl Screen (Not Detect) Ur Barbiturates Screen (Not Detect) Ur Phencyclidine Scrn (Not Detect) Ur Amphetamines Screen (Not Detect) U Benzodiazepines Scrn (Not Detect) Urine Cocaine Screen (Not Detect) U Marijuana (THC) Screen (Not Detect) Ethyl Alcohol mg/dL COVID-19 (NELY) (Negative) COVID-19 Clin Com 08/15/21 08/15/21 08/15/21 Range/Units 02:19 02:19 02:57 WBC (4.8-10.8) X10*3/uL RBC (4.60-5.80) X10*6/uL Hgb (14.0-18.0) g/dl Hct (42.0-52.0) % MCV (80.0-98.0) fL MCH (27.0-33.0) pg MCHC (31.0-36.0) g/dl RDW (11.0-16.0) % Plt Count (160-400) X10*3/uL MPV (9.4-12.4) fL Immature Gran % (Auto) (0.0-0.4) % Neut % (Auto) (45-73) % Lymph % (Auto) (20-40) % Stonewall % (Auto) (2-11) % Eos % (Auto) (0-4) % Baso % (Auto) (0-2) % Lymph # (Auto) (1.2-4.9) X10*3/uL [place]wall # (Auto) (0.1-1.2) X10*3/uL Eos # (Auto) (0.0-0.4) X10*3/uL Baso # (Auto) (0.0-0.2) X10*3/uL Abs Immat Gran (auto) (0.00-0.03) X10*3/uL Absolute Neuts (auto) (2.0-8.3) x10*3/uL Absolute Nucleated RBC (0.0-0.012) X10*3/uL Nucleated RBC % (auto) (0.0-0.2) /100WBC PT (9.9-13.0) SEC INR (0.9-1.1) APTT (24.1-38.0) SEC Sodium (135-145) mmol/L Potassium (3.3-5.1) mmol/L Chloride (96-108) mmol/L Carbon Dioxide (22-29) mmol/L Anion Gap (12-20) BUN (9-16) mg/dL Creatinine (0.5-1.4) mg/dL Estim Creat Clear Calc Estimated GFR Random Glucose (60-115) mg/dL Calcium (8.4-10.2) mg/dL Magnesium (1.6-2.6) mg/dL Total Bilirubin (0.0-1.0) mg/dL AST (5-37) U/L ALT (0-40) U/L Alkaline Phosphatase (39-117) U/L Total Protein (6.5-8.0) g/dL Albumin (3.5-5.0) g/dL Urine Opiates Screen Not Detected (Not Detect) Urine Fentanyl Screen Not Detected (Not Detect) Ur Barbiturates Screen Not Detected (Not Detect) Ur Phencyclidine Scrn Not Detected (Not Detect) Ur Amphetamines Screen Not Detected (Not Detect) U Benzodiazepines Scrn POSITIVE H (Not Detect) Urine Cocaine Screen Not Detected (Not Detect) U Marijuana (THC) Screen POSITIVE H (Not Detect) Ethyl Alcohol 336 H* mg/dL COVID-19 (NELY) Negative (Negative) COVID-19 Clin Com See Note Discharge Plan Discharge Clinical Impression: Alcoholic intoxication Patient Disposition: Still a Patient Prescriptions: No Action naltrexone 50 mg tablet 1 tab PO DAILY melatonin 3 mg tablet 1 tab PO BEDTIME doxepin 10 mg capsule 1 cap PO BEDTIME docusate sodium 100 mg capsule 1 cap PO DAILY Spiriva Respimat 1.25 mcg/actuation mist 2 puff inhalation DAILY One Daily Multi-Vit w-Mineral 4.5 mg iron tablet 1 tab PO DAILY mirtazapine 15 mg tablet 1 tab PO BEDTIME albuterol sulfate 90 mcg/actuation HFA aerosol inhaler 2 puff inhalation Q4H PRN (Reason: Wheezing) Eliquis 5 mg tablet 1 tab PO BID clonidine HCl 0.1 mg tablet 1 tab PO TID hydroxyzine HCl 50 mg tablet 1 tab PO TID acamprosate 333 mg tablet,delayed release (DR/EC) 2 tab PO TID
[2021-08-15 02:34] LABS: Mean Corpuscular HGB Conc 32.4 g/dl (31.0-36.0); Monocytes Absolute Auto 0.4 X10*3/uL (0.1-1.2); PLT CLUMP 1; SCAN SMEAR FLAG 1
[2021-08-15 02:35] LABS: Basophils Percent Auto 0.7 % (0-2); Eosinophils Percent Auto 0.9 % (0-4); Hematocrit 38.9 % (42.0-52.0); Hemoglobin 12.6 g/dl (14.0-18.0); Imm Gran Abs Auto 0.01 X10*3/uL (0.00-0.03); Imm Gran Pct Auto 0.2 % (0.0-0.4); Lymphocytes Absolute Auto 1.4 X10*3/uL (1.2-4.9); Lymphocytes Percent Auto 33.6 % (20-40); Mean Corpuscular Hemoglobin 28.4 pg (27.0-33.0); Mean Corpuscular Volume 87.8 fL (80.0-98.0); Mean Platelet Volume 9.4 fL (9.4-12.4); Monocytes Percent Auto 8.8 % (2-11); Neutrophils Absolute Auto 2.4 x10*3/uL (2.0-8.3); Neutrophils Percent Auto 55.8 % (45-73); Red Blood Count 4.43 X10*6/uL (4.60-5.80)
[2021-08-15 02:36] LABS: White Blood Count 4.2 X10*3/uL (4.8-10.8)
[2021-08-15 02:37] LABS: MANUAL DIFF FLAG NO; Platelet Count 148 X10*3/uL (160-400)
[2021-08-15 02:39] LABS: INTERNATIONAL NORM RATIO 1.4 (0.9-1.1); Prothrombin Time 15.5 SEC (9.9-13.0)
[2021-08-15 02:41] LABS: Partial Thromboplastin Time 44.8 SEC (24.1-38.0)
[2021-08-15 02:43] LABS: Ethanol 336 mg/dL
[2021-08-15 02:45] LABS: COVID-19 Test Negative (Negative)
[2021-08-15 02:47] LABS: Alanine Aminotransferase 48 U/L (0-40); Albumin Level 4.4 g/dL (3.5-5.0); Alkaline Phosphatase 131 U/L (39-117); Anion Gap 17 (12-20); Aspartate Amino Transferase 101 U/L (5-37); Blood Urea Nitrogen 13 mg/dL (9-16); Calcium 9.1 mg/dL (8.4-10.2); Carbon Dioxide 28 mmol/L (22-29); Chloride 98 mmol/L (96-108); Creatinine Clr Calc Pharmacy 75.1; Estimated Glomerular Filt Rate > 60; Glucose Random 176 mg/dL (60-115); Magnesium 1.7 mg/dL (1.6-2.6); Potassium 3.6 mmol/L (3.3-5.1); Sodium 139 mmol/L (135-145)
[2021-08-15 03:18] LABS: Amphetamine Screen Urine Not Detected (Not Detect); Barbiturates, Urine Not Detected (Not Detect); Benzodiazepines Screen Urine POSITIVE (Not Detect); Cannabinoid Screen Urine POSITIVE (Not Detect); Cocaine Screen Urine Not Detected (Not Detect); Fentanyl, urine Not Detected (Not Detect); Opiate Screen Urine Not Detected (Not Detect); Phencyclidine Screen Urine Not Detected (Not Detect)
--- NOTE | 2021-08-15 04:59 | PC.NURSE ---
pt sleeping, visible chest rise & fall.
--- NOTE | 2021-08-15 07:39 | PC.NURSE ---
Addendum entered by Quiana Garner RN 08/15/21 09:08: Spoke to Melly RABAGO, placed on 1L O2 Original Note: This RN notified patient's Sp02 85%, pt sleeping, in no apparent distress, hx of COPD, not on O2 at home. Care plan updated.
--- NOTE | 2021-08-15 09:13 | PHA.MEDREC ---
Pharmacy Consult ? Medication Reconciliation Pharmacy has completed the medication reconciliation. Patient reports only taking apixaban and stool softener. Patient has recent fills for other medications but admits to not taking them; naltrexone, doxepin. Patient says he also takes motrin as needed.
[2021-08-15 09:15] LABS: Lipase 57 U/L (8-78)
--- NOTE | 2021-08-15 09:25 | MHC.RECOVSUP ---
Recovery Support note: Patient is a 61 year old [place] speaking male who presented to [facility] in the morning of 08/15 due to intoxication and interest in going to detox. This contract writer met with patient to discuss his alcohol use and recovery supports. Patient has tried meetings in the past however does not have consistent transportation. 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 Patient reports I drink and don't eat. Patient reports he would like to go to detox to break this cycle. This contract writer will assist patient in referring to ATS facilities.
--- NOTE | 2021-08-15 12:12 | PC.NURSE ---
Per Jp from recovery, patient has detox bed at [facility] for 1240, ride scheduled for 1230. Patient aware and agreeable.
== END 2021-08-15 12:33 ==
PROVIDERS: Emergency Provider Internal Medicine
DX: F10.129 Alcohol abuse with intoxication, unspecified (principal); Y90.8 Blood alcohol level of 240 mg/100 ml or more; R10.13 Epigastric pain; J44.9 Chronic obstructive pulmonary disease, unspecified; Z86.718 Personal history of other venous thrombosis and embolism; Z79.01 Long term (current) use of anticoagulants; Z79.899 Other long term (current) drug therapy; Z20.822 Contact with and (suspected) exposure to COVID-19
CPT/HCPCS: 36415; 71045; 80053; 80307; 82077; 83690; 83735; 85025; 85610; 85730; 87635; 99284; 99285

== ENCOUNTER 2021-09-08 22:37 | Emergency (ER) | payer OTHER, SELFPAY ==
--- NOTE | ~2021-09-08 | XR_ITS ---
EXAMINATION: XR CHEST CLINICAL INFORMATION: Cough COMPARISON: Chest radiograph 08/15/[address] 08/11/2019 TECHNIQUE: 2 views of the chest were obtained. FINDINGS: No significant abnormality is noted involving the heart, lungs, mediastinum, bony thorax or soft tissues. XR/XR chest 2V IMPRESSION: Unremarkable examination.
[2021-09-08 23:21] VITALS: BP 133/76; PULSE 94
--- NOTE | 2021-09-08 23:29 | ECG_ITS ---
Test Reason : chest pain Blood Pressure : / mmHG Vent. Rate : 082 BPM Atrial Rate : 082 BPM P-R Int : 136 ms QRS Dur : 138 ms QT Int : 402 ms P-R-T Axes : 068 269 050 degrees QTc Int : 469 ms Normal sinus rhythm Right bundle branch block Abnormal ECG When compared with ECG of 11-MAY-2021 19:35, No significant change was found Referred By: Rachna Mckeon Electronically Signed By:WAYNE AVILEZ MD
[2021-09-08 23:40] VITALS: BMI 30.4
[2021-09-08 23:45] VITALS: BP 119/59; PULSE 80; RESP 16; TEMP 36.7; O2SAT 90
--- NOTE | 2021-09-08 23:57 | ED_ITS ---
HPI - Alcohol General Chief Complaint: ETOH/Substance Use <HIMA Blackmon - Last Filed: 09/09/21 02:47> Stated Complaint: etoh/ <HIMA Blackmon - Last Filed: 09/09/21 02:47> Time Seen by Provider: 09/08/21 23:17 <HIMA Blackmon - Last Filed: 09/09/21 02:47> Source: patient, RN notes reviewed and old records reviewed <HIMA Blackmon - Last Filed: 09/09/21 02:47> Mode of arrival: EMS <HIMA Blackmon - Last Filed: 09/09/21 02:47> Limitations: altered mental status <HIMA Blackmon Last Filed: 09/09/21 02:47> History of Present Illness HPI narrative: This is a 61-year-old male, with a past medical history of alcohol abuse, who presents today via EMS due to acute alcohol intoxication. Per EMS note, 911 was called initially for chest pain, but the patient denied chest pain once they were on scene. Patient is currently intoxicated, however when asked about any pain patient reports that he does have some left-sided chest pain that radiates into his left shoulder. He states that this pain has been there for couple weeks. Patient reports some nausea as well as some diffuse abdominal discomfort. He reports that he drank half a pint of Southern comfort prior to his arrival here. He also reports any has a cough, but reports that his cough is chronic for him reports that he has a history of COPD. He currently denies any recent fevers, chills, shortness of breath, vomiting, or diarrhea. He denies any recent falls. He admits to having alcohol withdrawal seizures in the past, he is unable to report when the last time he had a seizure. He denies any other complaints or concerns at this time. <HIMA Blackmon - Last Filed: 09/09/21 02:47> MD complaint: alcohol intoxication and alcohol dependence <HIMA Blackmon - Last Filed: 09/09/21 02:47> Last drink: Just prior to admission <HIMA Blackmon Last Filed: 09/09/21 02:47> Amount of alcohol consumed: Two pints of [place]fort <HIMA Blackmon Last Filed: 09/09/21 02:47> Chronic alcohol use: Yes <HIMA Blackmon Last Filed: 09/09/21 02:47> Previous visits for alcohol intoxication: Yes <HIMA Blackmon Last Filed: 09/09/21 02:47> Recent trauma: No <HIMA Blackmon Last Filed: 09/09/21 02:47> Associated symptoms: nausea <HIMA Blackmon Last Filed: 09/09/21 02:47> Treatments prior to arrival: none <HIMA Blackmon Last Filed: 09/09/21 02:47> Related Data Home Medications: Home Medications Medication Instructions Recorded Confirmed apixaban 5 mg tablet (Eliquis) 1 tab PO BID 05/11/21 08/15/21 docusate sodium 100 mg capsule 1 cap PO DAILY 07/23/21 08/15/21 melatonin 3 mg tablet 1 tab PO BEDTIME 07/23/21 08/15/21 tiotropium bromide 1.25 2 puff inhalation DAILY 07/23/21 08/15/21 mcg/actuation mist for inhalation (Spiriva Respimat) albuterol sulfate 90 mcg/actuation 2 puff inhalation Q4H PRN Wheezing 07/24/21 08/15/21 aerosol inhaler <HIMA Blackmon Last Filed: 09/09/21 02:47> Allergies/Adverse Reactions: Allergies Allergy/AdvReac Type Severity Reaction Status Date / Time Peanut Butter Allergy Facial Verified 02/05/21 22:58 Swelling raspberry Allergy Facial Verified 02/05/21 22:58 Swelling <HIMA Blackmon Last Filed: 09/09/21 02:47> Review of Systems Review of Systems: Constitutional : No Fever, No Chills ENT/Mouth : No Ear Pain, No Nasal Congestion, No sore throat Eyes: No Eye Pain, No Swelling, No Redness Cardiovascular : +Chest Pain, No SOB Respiratory : +Cough, No Sputum, No Dyspnea Gastrointestinal : No ingestions, +Nausea, No Vomiting, No Diarrhea, No Hematochezia, No Melena Genitourinary : No Dysuria, No Urinary Frequency, No Hematuria Musculoskeletal : No Myalgias Skin : No Skin Lesions, No rash Neuro : No Weakness, No Numbness, No Paresthesias, No Dizziness, No Headache Psych : No Anxiety, No Depression, No SI/HI, No AVH, No thoughts of self injury Heme/Lymph: No Lymphadenopathy Endocrine : No Polyuria, No Polydipsia <HIMA Blackmon - Last Filed: 09/09/21 02:47> Yes all other systems are reviewed and are negative <HIMA Blackmon - Last Filed: 09/09/21 02:47> [facility] Past Medical History Attestation statement: The following information was validated with the patient. <HIMA Blackmon - Last Filed: 09/09/21 02:47> Source: old records reviewed and nursing notes reviewed <HIMA Blackmon - Last Filed: 09/09/21 02:47> Medical History: Medical History Alcohol abuse Asthma COPD (chronic obstructive pulmonary disease) DVT (deep venous thrombosis) Neuropathy Subdural hematoma <HIMA Blackmon - Last Filed: 09/09/21 02:47> Social History Social History: Social History Alcohol intake: current Alcohol intake frequency: 3 or more drinks per day Alcohol type: hard liquor Patient Tobacco Use Status: Current everyday Tobacco user Substance Use Type: Marijuana Advance Directives: No <HIMA Blackmon - Last Filed: 09/09/21 02:47> Physical Exam ED Vital Signs: Vital Signs - 24 hr 09/08/21 23:45 Temperature 98.1 F Pulse Rate 80 Respiratory Rate 16 Blood Pressure 119/59 L Pulse Oximetry 90 L Oxygen Delivery Method Room Air BMI result Body Mass Index 30.4 Vital signs have been reviewed as normal and appeared to be correct. Blood pressure 119/59. O2 saturation at 90% on room air. Heart rate normal. Respiration rate normal. Temperature normal. <HIMA Blackmon - Last Filed: 09/09/21 02:47> Vital Signs - 24 hr 09/08/21 23:45 Temperature 98.1 F Pulse Rate 80 Respiratory Rate 16 Blood Pressure 119/59 L Pulse Oximetry 90 L Oxygen Delivery Method Room Air BMI result Body Mass Index 30.4 <Loraine Mulligan MD - Last Filed: 09/09/21 05:37> Appearance: Alert.? Oriented X3.? No acute distress.? Patient's smells l dyllan alcohol, appears to be acutely intoxicated. no signs of trauma. Head:? Normocephalic, atraumatic, no step-offs or deformities Eyes: Pupils equal, round and reactive to light.? ENT: Pharynx normal.? Neck: Normal inspection.? Neck supple.? CVS: Normal heart rate and rhythm.? Pulses normal.? Respiratory: Coarse lung sounds heard throughout, with expiratory wheezes. No rhonchi or rales. Harsh, loose, nonproductive cough noted during examination. No respiratory distress.? Breath sounds normal.? Abdomen: Soft, diffuse abdominal tenderness. No rebound or guarding. Skin: Skin warm and dry.? Normal skin color.? Normal skin turgor.? Extremities: No lower extremity edema.? No calf ttp.? 5/5 strength to bilateral upper and lower extremities. Back:? No midline tenderness, no C-spine tenderness, full range of motion, no CVA tenderness bilaterally Neuro: Oriented X 3.? No motor deficit.? No sensory deficit. CN 2-12 intact <HIMA Blackmon - Last Filed: 09/09/21 02:47> Course Course Course Narrative: 00:31 his is a 61-year-old male, with a past medical history of alcohol abuse, who presents today via EMS due to acute alcohol intoxication. Per EMS note, 911 was called initially for chest pain, but the patient denied chest pain once they were on scene. Patient is currently intoxicated, however when asked about any pain patient reports that he does have some left-sided chest pain that radiates into his left shoulder. He states that this pain has been there for couple weeks. Patient reports some nausea as well as some diffuse abdominal di scomfort. Plan: Labs, EKG, chest x-ray ordered. breathing treatment, 125 mg of IV Solu Medrol, 2 g of magnesium and re-evaluate. <HIMA Blackmon - Last Filed: 09/09/21 02:47> Reevaluation(s) Reevaluation #1: Labs reviewed. Patient has no leukocytosis. H&H 11/33.0. Hypokalemic at 3.2, replenished with 40 mEq of potassium. Hypomagnesium at 1.5, calcium 9.0; AST 63, Alkaline phosphatase 143. Ethyl alcohol level at 372. Troponin 4.3 will be repeated in 3 hours. Chest x-ray shows no signs of pneumonia. patient medicated with albuterol updraft /Inhaler, and magnesium 2gm and Solu-Medrol 125 mg IV push. Patient resting comfortably in and triaged stretcher in hallway. will re-evaluate. <HIMA Blackmon - Last Filed: 09/09/21 02:47> Time: 00:53 <HIMA Blackmon - Last Filed: 09/09/21 02:47> MDM - Alcohol MDM Narrative Medical decision making narrative: Two set troponin are negative. Will discharge patient home When patient is clinically sober. In stable condition. <Loraine Mulligan MD - Last Filed: 09/09/21 05:37> Medical Records Attestation: I reviewed the patient's medical records. <HIMA Blackmon - Last Filed: 09/09/21 02:47> Lab Data Attestation: I reviewed the patient's lab results. <HIMA Blackmon - Last Filed: 09/09/21 02:47> Result diagrams: : 09/09/21 00:09 09/09/21 00:09 <HIMA Blackmon - Last Filed: 09/09/21 02:47> Labs: Lab Results 09/09/21 09/09/21 09/09/21 Range/Units 00:09 00:09 00:09 WBC 6.1 (4.8-10.8) X10*3/uL RBC 3.81 L (4.60-5.80) X10*6/uL Hgb 11.0 L (14.0-18.0) g/dl Hct 33.0 L (42.0-52.0) % MCV 86.6 (80.0-98.0) fL MCH 28.9 (27.0-33.0) pg MCHC 33.3 (31.0-36.0) g/dl RDW 17.2 H (11.0-16.0) % Plt Count 94 L D (160-400) X10*3/uL MPV 8.7 L (9.4-12.4) fL Immature Gran % (Auto) 0.3 (0.0-0.4) % Neut % (Auto) 62.4 (45-73) % Lymph % (Auto) 26.6 (20-40) % [place] % (Auto) 9.7 (2-11) % Eos % (Auto) 0.5 (0-4) % Baso % (Auto) 0.5 (0-2) % Lymph # (Auto) 1.6 (1.2-4.9) X10*3/uL [place] # (Auto) 0.6 (0.1-1.2) X10*3/uL Eos # (Auto) 0.0 (0.0-0.4) X10*3/uL Baso # (Auto) 0.0 (0.0-0.2) X10*3/uL Abs Immat Gran (auto) 0.02 (0.00-0.03) X10*3/uL Absolute Neuts (auto) 3.8 (2.0-8.3) x10*3/uL Absolute Nucleated RBC 0.000 (0.0-0.012) X10*3/uL Nucleated RBC % (auto) 0.0 (0.0-0.2) /100WBC PT 12.5 (10.0-13.1) SEC INR 1.1 (0.9-1.1) Sodium 141 (135-145) mmol/L Potassium 3.2 L (3.3-5.1) mmol/L Chloride 104 (96-108) mmol/L Carbon Dioxide 25 (22-29) mmol/L Anion Gap 15 (12-20) BUN 9 (9-16) mg/dL Creatinine 0.87 (0.5-1.4) mg/dL Estim Creat Clear Calc 97.5 Estimated GFR > 60 Random Glucose 93 D (60-115) mg/dL Calcium 8.0 L D (8.4-10.2) mg/dL Magnesium 1.5 L (1.6-2.6) mg/dL Total Bilirubin 0.5 (0.0-1.0) mg/dL AST 63 H (5-37) U/L ALT 38 (0-40) U/L Alkaline Phosphatase 143 H (39-117) U/L Total Creatine Kinase (38-174) U/L Troponin I High Sens (<3.5-35.0) ng/L Total Protein 7.1 (6.5-8.0) g/dL Albumin 3.8 (3.5-5.0) g/dL Lipase 46 (8-78) U/L Urine Color Urine Appearance Urine pH (5.0-8.0) Ur Specific Basco (1.005-1.025) Urine Protein (NEG-TRACE) MG/DL Urine Glucose (UA) (NEG) MG/DL Urine Ketones (NEG) MG/DL Urine Blood (NEG) Urine Nitrite (NEG) Ur Leukocyte Esterase (NEG) Urine Opiates Screen (Not Detect) Urine Fentanyl Screen (Not Detect) Ur Barbiturates Screen (Not Detect) Ur Phencyclidine Scrn (Not Detect) Ur Amphetamines Screen (Not Detect) U Benzodiazepines Scrn (Not Detect) Urine Cocaine Screen (Not Detect) U Marijuana (THC) Screen (Not Detect) Ethyl Alcohol mg/dL COVID-19 (NELY) (Negative) COVID-19 Clin Com 09/09/21 09/09/21 09/09/21 Range/Units 00:09 00:09 00:09 WBC (4.8-10.8) X10*3/uL RBC (4.60-5.80) X10*6/uL Hgb (14.0-18.0) g/dl Hct (42.0-52.0) % MCV (80.0-98.0) fL MCH (27.0-33.0) pg MCHC (31.0-36.0) g/dl RDW (11.0-16.0) % Plt Count (160-400) X10*3/uL MPV (9.4-12.4) fL Immature Gran % (Auto) (0.0-0.4) % Neut % (Auto) (45-73) % Lymph % (Auto) (20-40) % [place] % (Auto) (2-11) % Eos % (Auto) (0-4) % Baso % (Auto) (0-2) % Lymph # (Auto) (1.2-4.9) X10*3/uL [place] # (Auto) (0.1-1.2) X10*3/uL Eos # (Auto) (0.0-0.4) X10*3/uL Baso # (Auto) (0.0-0.2) X10*3/uL Abs Immat Gran (auto) (0.00-0.03) X10*3/uL Absolute Neuts (auto) (2.0-8.3) x10*3/uL Absolute Nucleated RBC (0.0-0.012) X10*3/uL Nucleated RBC % (auto) (0.0-0.2) /100WBC PT (10.0-13.1) SEC INR (0.9-1.1) Sodium (135-145) mmol/L Potassium (3.3-5.1) mmol/L Chloride (96-108) mmol/L Carbon Dioxide (22-29) mmol/L Anion Gap (12-20) BUN (9-16) mg/dL Creatinine (0.5-1.4) mg/dL Estim Creat Clear Calc Estimated GFR Random Glucose (60-115) mg/dL Calcium (8.4-10.2) mg/dL Magnesium (1.6-2.6) mg/dL Total Bilirubin (0.0-1.0) mg/dL AST (5-37) U/L ALT (0-40) U/L Alkaline Phosphatase (39-117) U/L Total Creatine Kinase 90 (38-174) U/L Troponin I High Sens 4.3 (<3.5-35.0) ng/L Total Protein (6.5-8.0) g/dL Albumin (3.5-5.0) g/dL Lipase (8-78) U/L Urine Color Urine Appearance Urine pH (5.0-8.0) Ur Specific Basco (1.005-1.025) Urine Protein (NEG-TRACE) MG/DL Urine Glucose (UA) (NEG) MG/DL Urine Ketones (NEG) MG/DL Urine Blood (NEG) Urine Nitrite (NEG) Ur Leukocyte Esterase (NEG) Urine Opiates Screen (Not Detect) Urine Fentanyl Screen (Not Detect) Ur Barbiturates Screen (Not Detect) Ur Phencyclidine Scrn (Not Detect) Ur Amphetamines Screen (Not Detect) U Benzodiazepines Scrn (Not Detect) Urine Cocaine Screen (Not Detect) U Marijuana (THC) Screen (Not Detect) Ethyl Alcohol 372 H* mg/dL COVID-19 (NELY) (Negative) COVID-19 Clin Com 09/09/21 09/09/21 09/09/21 Range/Units 03:32 03:32 03:32 WBC (4.8-10.8) X10*3/uL RBC (4.60-5.80) X10*6/uL Hgb (14.0-18.0) g/dl Hct (42.0-52.0) % MCV (80.0-98.0) fL MCH (27.0-33.0) pg MCHC (31.0-36.0) g/dl RDW (11.0-16.0) % Plt Count (160-400) X10*3/uL MPV (9.4-12.4) fL Immature Gran % (Auto) (0.0-0.4) % Neut % (Auto) (45-73) % Lymph % (Auto) (20-40) % [place] % (Auto) (2-11) % Eos % (Auto) (0-4) % Baso % (Auto) (0-2) % Lymph # (Auto) (1.2-4.9) X10*3/uL [place] # (Auto) (0.1-1.2) X10*3/uL Eos # (Auto) (0.0-0.4) X10*3/uL Baso # (Auto) (0.0-0.2) X10*3/uL Abs Immat Gran (auto) (0.00-0.03) X10*3/uL Absolute Neuts (auto) (2.0-8.3) x10*3/uL Absolute Nucleated RBC (0.0-0.012) X10*3/uL Nucleated RBC % (auto) (0.0-0.2) /100WBC PT (10.0-13.1) SEC INR (0.9-1.1) Sodium (135-145) mmol/L Potassium (3.3-5.1) mmol/L Chloride (96-108) mmol/L Carbon Dioxide (22-29) mmol/L Anion Gap (12-20) BUN (9-16) mg/dL Creatinine (0.5-1.4) mg/dL Estim Creat Clear Calc Estimated GFR Random Glucose (60-115) mg/dL Calcium (8.4-10.2) mg/dL Magnesium (1.6-2.6) mg/dL Total Bilirubin (0.0-1.0) mg/dL AST (5-37) U/L ALT (0-40) U/L Alkaline Phosphatase (39-117) U/L Total Creatine Kinase (38-174) U/L Troponin I High Sens < 3.5 (<3.5-35.0) ng/L Total Protein (6.5-8.0) g/dL Albumin (3.5-5.0) g/dL Lipase (8-78) U/L Urine Color YELLOW Urine Appearance CLEAR Urine pH 6.5 (5.0-8.0) Ur Specific Basco 1.010 (1.005-1.025) Urine Protein NEG (NEG-TRACE) MG/DL Urine Glucose (UA) NEG (NEG) MG/DL Urine Ketones NEG (NEG) MG/DL Urine Blood NEG (NEG) Urine Nitrite NEG (NEG) Ur Leukocyte Esterase NEG (NEG) Urine Opiates Screen Not Detected (Not Detect) Urine Fentanyl Screen Not Detected (Not Detect) Ur Barbiturates Screen Not Detected (Not Detect) Ur Phencyclidine Scrn Not Detected (Not Detect) Ur Amphetamines Screen Not Detected (Not Detect) U Benzodiazepines Scrn Not Detected (Not Detect) Urine Cocaine Screen Not Detected (Not Detect) U Marijuana (THC) Screen Not Detected (Not Detect) Ethyl Alcohol mg/dL COVID-19 (NELY) (Negative) COVID-19 Clin Com 09/09/21 Range/Units 03:32 WBC (4.8-10.8) X10*3/uL RBC (4.60-5.80) X10*6/uL Hgb (14.0-18.0) g/dl Hct (42.0-52.0) % MCV (80.0-98.0) fL MCH (27.0-33.0) pg MCHC (31.0-36.0) g/dl RDW (11.0-16.0) % Plt Count (160-400) X10*3/uL MPV (9.4-12.4) fL Immature Gran % (Auto) (0.0-0.4) % Neut % (Auto) (45-73) % Lymph % (Auto) (20-40) % [place] % (Auto) (2-11) % Eos % (Auto) (0-4) % Baso % (Auto) (0-2) % Lymph # (Auto) (1.2-4.9) X10*3/uL [place] # (Auto) (0.1-1.2) X10*3/uL Eos # (Auto) (0.0-0.4) X10*3/uL Baso # (Auto) (0.0-0.2) X10*3/uL Abs Immat Gran (auto) (0.00-0.03) X10*3/uL Absolute Neuts (auto) (2.0-8.3) x10*3/uL Absolute Nucleated RBC (0.0-0.012) X10*3/uL Nucleated RBC % (auto) (0.0-0.2) /100WBC PT (10.0-13.1) SEC INR (0.9-1.1) Sodium (135-145) mmol/L Potassium (3.3-5.1) mmol/L Chloride (96-108) mmol/L Carbon Dioxide (22-29) mmol/L Anion Gap (12-20) BUN (9-16) mg/dL Creatinine (0.5-1.4) mg/dL Estim Creat Clear Calc Estimated GFR Random Glucose (60-115) mg/dL Calcium (8.4-10.2) mg/dL Magnesium (1.6-2.6) mg/dL Total Bilirubin (0.0-1.0) mg/dL AST (5-37) U/L ALT (0-40) U/L Alkaline Phosphatase (39-117) U/L Total Creatine Kinase (38-174) U/L Troponin I High Sens (<3.5-35.0) ng/L Total Protein (6.5-8.0) g/dL Albumin (3.5-5.0) g/dL Lipase (8-78) U/L Urine Color Urine Appearance Urine pH (5.0-8.0) Ur Specific Basco (1.005-1.025) Urine Protein (NEG-TRACE) MG/DL Urine Glucose (UA) (NEG) MG/DL Urine Ketones (NEG) MG/DL Urine Blood (NEG) Urine Nitrite (NEG) Ur Leukocyte Esterase (NEG) Urine Opiates Screen (Not Detect) Urine Fentanyl Screen (Not Detect) Ur Barbiturates Screen (Not Detect) Ur Phencyclidine Scrn (Not Detect) Ur Amphetamines Screen (Not Detect) U Benzodiazepines Scrn (Not Detect) Urine Cocaine Screen (Not Detect) U Marijuana (THC) Screen (Not Detect) Ethyl Alcohol mg/dL COVID-19 (NELY) Negative (Negative) COVID-19 Clin Com See Note <HIMA Blackmon - Last Filed: 09/09/21 02:47> Lab Results 09/09/21 09/09/21 09/09/21 Range/Units 00:09 00:09 00:09 WBC 6.1 (4.8-10.8) X10*3/uL RBC 3.81 L (4.60-5.80) X10*6/uL Hgb 11.0 L (14.0-18.0) g/dl Hct 33.0 L (42.0-52.0) % MCV 86.6 (80.0-98.0) fL MCH 28.9 (27.0-33.0) pg MCHC 33.3 (31.0-36.0) g/dl RDW 17.2 H (11.0-16.0) % Plt Count 94 L D (160-400) X10*3/uL MPV 8.7 L (9.4-12.4) fL Immature Gran % (Auto) 0.3 (0.0-0.4) % Neut % (Auto) 62.4 (45-73) % Lymph % (Auto) 26.6 (20-40) % [place] % (Auto) 9.7 (2-11) % Eos % (Auto) 0.5 (0-4) % Baso % (Auto) 0.5 (0-2) % Lymph # (Auto) 1.6 (1.2-4.9) X10*3/uL [place] # (Auto) 0.6 (0.1-1.2) X10*3/uL Eos # (Auto) 0.0 (0.0-0.4) X10*3/uL Baso # (Auto) 0.0 (0.0-0.2) X10*3/uL Abs Immat Gran (auto) 0.02 (0.00-0.03) X10*3/uL Absolute Neuts (auto) 3.8 (2.0-8.3) x10*3/uL Absolute Nucleated RBC 0.000 (0.0-0.012) X10*3/uL Nucleated RBC % (auto) 0.0 (0.0-0.2) /100WBC PT 12.5 (10.0-13.1) SEC INR 1.1 (0.9-1.1) Sodium 141 (135-145) mmol/L Potassium 3.2 L (3.3-5.1) mmol/L Chloride 104 (96-108) mmol/L Carbon Dioxide 25 (22-29) mmol/L Anion Gap 15 (12-20) BUN 9 (9-16) mg/dL Creatinine 0.87 (0.5-1.4) mg/dL Estim Creat Clear Calc 97.5 Estimated GFR > 60 Random Glucose 93 D (60-115) mg/dL Calcium 8.0 L D (8.4-10.2) mg/dL Magnesium 1.5 L (1.6-2.6) mg/dL Total Bilirubin 0.5 (0.0-1.0) mg/dL AST 63 H (5-37) U/L ALT 38 (0-40) U/L Alkaline Phosphatase 143 H (39-117) U/L Total Creatine Kinase (38-174) U/L Troponin I High Sens (<3.5-35.0) ng/L Total Protein 7.1 (6.5-8.0) g/dL Albumin 3.8 (3.5-5.0) g/dL Lipase 46 (8-78) U/L Urine Color Urine Appearance Urine pH (5.0-8.0) Ur Specific Basco (1.005-1.025) Urine Protein (NEG-TRACE) MG/DL Urine Glucose (UA) (NEG) MG/DL Urine Ketones (NEG) MG/DL Urine Blood (NEG) Urine Nitrite (NEG) Ur Leukocyte Esterase (NEG) Urine Opiates Screen (Not Detect) Urine Fentanyl Screen (Not Detect) Ur Barbiturates Screen (Not Detect) Ur Phencyclidine Scrn (Not Detect) Ur Amphetamines Screen (Not Detect) U Benzodiazepines Scrn (Not Detect) Urine Cocaine Screen (Not Detect) U Marijuana (THC) Screen (Not Detect) Ethyl Alcohol mg/dL COVID-19 (NELY) (Negative) COVID-19 Clin Com 09/09/21 09/09/21 09/09/21 Range/Units 00:09 00:09 00:09 WBC (4.8-10.8) X10*3/uL RBC (4.60-5.80) X10*6/uL Hgb (14.0-18.0) g/dl Hct (42.0-52.0) % MCV (80.0-98.0) fL MCH (27.0-33.0) pg MCHC (31.0-36.0) g/dl RDW (11.0-16.0) % Plt Count (160-400) X10*3/uL MPV (9.4-12.4) fL Immature Gran % (Auto) (0.0-0.4) % Neut % (Auto) (45-73) % Lymph % (Auto) (20-40) % [place] % (Auto) (2-11) % Eos % (Auto) (0-4) % Baso % (Auto) (0-2) % Lymph # (Auto) (1.2-4.9) X10*3/uL [place] # (Auto) (0.1-1.2) X10*3/uL Eos # (Auto) (0.0-0.4) X10*3/uL Baso # (Auto) (0.0-0.2) X10*3/uL Abs Immat Gran (auto) (0.00-0.03) X10*3/uL Absolute Neuts (auto) (2.0-8.3) x10*3/uL Absolute Nucleated RBC (0.0-0.012) X10*3/uL Nucleated RBC % (auto) (0.0-0.2) /100WBC PT (10.0-13.1) SEC INR (0.9-1.1) Sodium (135-145) mmol/L Potassium (3.3-5.1) mmol/L Chloride (96-108) mmol/L Carbon Dioxide (22-29) mmol/L Anion Gap (12-20) BUN (9-16) mg/dL Creatinine (0.5-1.4) mg/dL Estim Creat Clear Calc Estimated GFR Random Glucose (60-115) mg/dL Calcium (8.4-10.2) mg/dL Magnesium (1.6-2.6) mg/dL Total Bilirubin (0.0-1.0) mg/dL AST (5-37) U/L ALT (0-40) U/L Alkaline Phosphatase (39-117) U/L Total Creatine Kinase 90 (38-174) U/L Troponin I High Sens 4.3 (<3.5-35.0) ng/L Total Protein (6.5-8.0) g/dL Albumin (3.5-5.0) g/dL Lipase (8-78) U/L Urine Color Urine Appearance Urine pH (5.0-8.0) Ur Specific Basco (1.005-1.025) Urine Protein (NEG-TRACE) MG/DL Urine Glucose (UA) (NEG) MG/DL Urine Ketones (NEG) MG/DL Urine Blood (NEG) Urine Nitrite (NEG) Ur Leukocyte Esterase (NEG) Urine Opiates Screen (Not Detect) Urine Fentanyl Screen (Not Detect) Ur Barbiturates Screen (Not Detect) Ur Phencyclidine Scrn (Not Detect) Ur Amphetamines Screen (Not Detect) U Benzodiazepines Scrn (Not Detect) Urine Cocaine Screen (Not Detect) U Marijuana (THC) Screen (Not Detect) Ethyl Alcohol 372 H* mg/dL COVID-19 (NELY) (Negative) COVID-19 Clin Com 09/09/21 09/09/21 09/09/21 Range/Units 03:32 03:32 03:32 WBC (4.8-10.8) X10*3/uL RBC (4.60-5.80) X10*6/uL Hgb (14.0-18.0) g/dl Hct (42.0-52.0) % MCV (80.0-98.0) fL MCH (27.0-33.0) pg MCHC (31.0-36.0) g/dl RDW (11.0-16.0) % Plt Count (160-400) X10*3/uL MPV (9.4-12.4) fL Immature Gran % (Auto) (0.0-0.4) % Neut % (Auto) (45-73) % Lymph % (Auto) (20-40) % [place] % (Auto) (2-11) % Eos % (Auto) (0-4) % Baso % (Auto) (0-2) % Lymph # (Auto) (1.2-4.9) X10*3/uL [place] # (Auto) (0.1-1.2) X10*3/uL Eos # (Auto) (0.0-0.4) X10*3/uL Baso # (Auto) (0.0-0.2) X10*3/uL Abs Immat Gran (auto) (0.00-0.03) X10*3/uL Absolute Neuts (auto) (2.0-8.3) x10*3/uL Absolute Nucleated RBC (0.0-0.012) X10*3/uL Nucleated RBC % (auto) (0.0-0.2) /100WBC PT (10.0-13.1) SEC INR (0.9-1.1) Sodium (135-145) mmol/L Potassium (3.3-5.1) mmol/L Chloride (96-108) mmol/L Carbon Dioxide (22-29) mmol/L Anion Gap (12-20) BUN (9-16) mg/dL Creatinine (0.5-1.4) mg/dL Estim Creat Clear Calc Estimated GFR Random Glucose (60-115) mg/dL Calcium (8.4-10.2) mg/dL Magnesium (1.6-2.6) mg/dL Total Bilirubin (0.0-1.0) mg/dL AST (5-37) U/L ALT (0-40) U/L Alkaline Phosphatase (39-117) U/L Total Creatine Kinase (38-174) U/L Troponin I High Sens < 3.5 (<3.5-35.0) ng/L Total Protein (6.5-8.0) g/dL Albumin (3.5-5.0) g/dL Lipase (8-78) U/L Urine Color YELLOW Urine Appearance CLEAR Urine pH 6.5 (5.0-8.0) Ur Specific Basco 1.010 (1.005-1.025) Urine Protein NEG (NEG-TRACE) MG/DL Urine Glucose (UA) NEG (NEG) MG/DL Urine Ketones NEG (NEG) MG/DL Urine Blood NEG (NEG) Urine Nitrite NEG (NEG) Ur Leukocyte Esterase NEG (NEG) Urine Opiates Screen Not Detected (Not Detect) Urine Fentanyl Screen Not Detected (Not Detect) Ur Barbiturates Screen Not Detected (Not Detect) Ur Phencyclidine Scrn Not Detected (Not Detect) Ur Amphetamines Screen Not Detected (Not Detect) U Benzodiazepines Scrn Not Detected (Not Detect) Urine Cocaine Screen Not Detected (Not Detect) U Marijuana (THC) Screen Not Detected (Not Detect) Ethyl Alcohol mg/dL COVID-19 ([facility]) (Negative) COVID-19 Clin Com 09/09/21 Range/Units 03:32 WBC (4.8-10.8) X10*3/uL RBC (4.60-5.80) X10*6/uL Hgb (14.0-18.0) g/dl Hct (42.0-52.0) % MCV (80.0-98.0) fL MCH (27.0-33.0) pg MCHC (31.0-36.0) g/dl RDW (11.0-16.0) % Plt Count (160-400) X10*3/uL MPV (9.4-12.4) fL Immature Gran % (Auto) (0.0-0.4) % Neut % (Auto) (45-73) % Lymph % (Auto) (20-40) % [place] % (Auto) (2-11) % Eos % (Auto) (0-4) % Baso % (Auto) (0-2) % Lymph # (Auto) (1.2-4.9) X10*3/uL [place] # (Auto) (0.1-1.2) X10*3/uL Eos # (Auto) (0.0-0.4) X10*3/uL Baso # (Auto) (0.0-0.2) X10*3/uL Abs Immat Gran (auto) (0.00-0.03) X10*3/uL Absolute Neuts (auto) (2.0-8.3) x10*3/uL Absolute Nucleated RBC (0.0-0.012) X10*3/uL Nucleated RBC % (auto) (0.0-0.2) /100WBC PT (10.0-13.1) SEC INR (0.9-1.1) Sodium (135-145) mmol/L Potassium (3.3-5.1) mmol/L Chloride (96-108) mmol/L Carbon Dioxide (22-29) mmol/L Anion Gap (12-20) BUN (9-16) mg/dL Creatinine (0.5-1.4) mg/dL Estim Creat Clear Calc Estimated GFR Random Glucose (60-115) mg/dL Calcium (8.4-10.2) mg/dL Magnesium (1.6-2.6) mg/dL Total Bilirubin (0.0-1.0) mg/dL AST (5-37) U/L ALT (0-40) U/L Alkaline Phosphatase (39-117) U/L Total Creatine Kinase (38-174) U/L Troponin I High Sens (<3.5-35.0) ng/L Total Protein (6.5-8.0) g/dL Albumin (3.5-5.0) g/dL Lipase (8-78) U/L Urine Color Urine Appearance Urine pH (5.0-8.0) Ur Specific Basco (1.005-1.025) Urine Protein (NEG-TRACE) MG/DL Urine Glucose (UA) (NEG) MG/DL Urine Ketones (NEG) MG/DL Urine Blood (NEG) Urine Nitrite (NEG) Ur Leukocyte Esterase (NEG) Urine Opiates Screen (Not Detect) Urine Fentanyl Screen (Not Detect) Ur Barbiturates Screen (Not Detect) Ur Phencyclidine Scrn (Not Detect) Ur Amphetamines Screen (Not Detect) U Benzodiazepines Scrn (Not Detect) Urine Cocaine Screen (Not Detect) U Marijuana (THC) Screen (Not Detect) Ethyl Alcohol mg/dL COVID-19 (NELY) Negative (Negative) COVID-19 Clin Com See Note <Loraine Mulligan MD - Last Filed: 09/09/21 05:37> Imaging Data Chest x-ray: Attestation: I personally reviewed and interpreted this imaging study as follows: <HIMA Blackmon - Last Filed: 09/09/21 02:47> Radiologist's impression: EXAMINATION: XR CHEST CLINICAL INFORMATION: Cough COMPARISON: Chest radiograph 08/15/[address] 08/11/2019 TECHNIQUE: 2 views of the chest were obtained. FINDINGS: No significant abnormality is noted involving the heart, lungs, mediastinum, bony thorax or soft tissues. XR/XR chest 2V IMPRESSION: Unremarkable examination. <HIMA Blackmon - Last Filed: 09/09/21 02:47> ECG Data ECG #1: Attestation: I personally reviewed and interpreted this ECG as follows: <HIMA Blackmon Last Filed: 09/09/21 02:47> ECG interpretation date: 09/08/21 <HIMA Blackmon Last Filed: 09/09/21 02:47> ECG interpretation time: 23:53 <HIMA Blackmon - Last Filed: 09/09/21 02:47> Prior ECG tracings: available for review <HIMA Blackmon - Last Filed: 09/09/21 02:47> Interpretation: Normal sinus rhythm with a ventricular rate of 82 bpm, with a right bundle-branch block, seen on previous EKG from 05/11/2021.HI interval 136ms,, QRS 138 ms, QTC 402/469. <HIMA Blackmon Last Filed: 09/09/21 02:47> Critical Care Time Critical Care Time Critical Care Time: Yes <HIMA Blackmon Last Filed: 09/09/21 02:47> Total Critical Care Time: 60 <HIMA Blackmon Last Filed: 09/09/21 02:47> Attestation: I personally attest to this time spent taking care of the patient <HIMA Blackmon Last Filed: 09/09/21 02:47> Discharge Plan Discharge Clinical Impression: Acute exacerbation of chronic obstructive pulmonary disease, Alcohol intoxication, Acute hypokalemia, Low blood magnesium <HIMA Blackmon Last Filed: 09/09/21 02:47> Patient Disposition: Home, Self-Care <HIMA Blackmon - Last Filed: 09/09/21 02:47> Instructions: Alcohol Intoxication (ED) <HIMA Blackmon - Last Filed: 09/09/21 02:47> Prescriptions: No Action melatonin 3 mg tablet 1 tab PO BEDTIME docusate sodium 100 mg capsule 1 cap PO DAILY Spiriva Respimat 1.25 mcg/actuation mist 2 puff inhalation DAILY albuterol sulfate 90 mcg/actuation HFA aerosol inhaler 2 puff inhalation Q4H PRN (Reason: Wheezing) Eliquis 5 mg tablet 1 tab PO BID <HIMA Blackmon - Last Filed: 09/09/21 02:47> Referrals: Cristhian Delgado MD [Primary Care Provider] - <HIMA Blackmon - Last Filed: 09/09/21 02:47>
[2021-09-09 00:16] LABS: MANUAL DIFF FLAG NO
[2021-09-09 00:17] LABS: Basophils Percent Auto 0.5 % (0-2); Eosinophils Percent Auto 0.5 % (0-4); Imm Gran Abs Auto 0.02 X10*3/uL (0.00-0.03); Imm Gran Pct Auto 0.3 % (0.0-0.4); Lymphocytes Absolute Auto 1.6 X10*3/uL (1.2-4.9); Lymphocytes Percent Auto 26.6 % (20-40); Mean Corpuscular HGB Conc 33.3 g/dl (31.0-36.0); Mean Corpuscular Hemoglobin 28.9 pg (27.0-33.0); Mean Corpuscular Volume 86.6 fL (80.0-98.0); Mean Platelet Volume 8.7 fL (9.4-12.4); Monocytes Absolute Auto 0.6 X10*3/uL (0.1-1.2); Monocytes Percent Auto 9.7 % (2-11); Neutrophils Absolute Auto 3.8 x10*3/uL (2.0-8.3); Neutrophils Percent Auto 62.4 % (45-73); Red Blood Count 3.81 X10*6/uL (4.60-5.80); Red Cell Distribution Width 17.2 % (11.0-16.0); White Blood Count 6.1 X10*3/uL (4.8-10.8)
[2021-09-09 00:20] LABS: INTERNATIONAL NORM RATIO 1.1 (0.9-1.1); Prothrombin Time 12.5 SEC (10.0-13.1)
[2021-09-09] MEDS: 0.9 % Sodium Chloride 1,000 ML 999 ML IVCONT (00:34)
[2021-09-09 00:37] LABS: Platelet Count 94 X10*3/uL (160-400)
[2021-09-09 00:42] LABS: Ethanol 372 mg/dL
[2021-09-09 00:43] LABS: Alanine Aminotransferase 38 U/L (0-40); Albumin Level 3.8 g/dL (3.5-5.0); Alkaline Phosphatase 143 U/L (39-117); Anion Gap 15 (12-20); Aspartate Amino Transferase 63 U/L (5-37); Bilirubin Total 0.5 mg/dL (0.0-1.0); Blood Urea Nitrogen 9 mg/dL (9-16); Carbon Dioxide 25 mmol/L (22-29); Chloride 104 mmol/L (96-108); Creatinine Clr Calc Pharmacy 97.5; Estimated Glomerular Filt Rate > 60; Glucose Random 93 mg/dL (60-115); Lipase 46 U/L (8-78); Magnesium 1.5 mg/dL (1.6-2.6); Potassium 3.2 mmol/L (3.3-5.1); Sodium 141 mmol/L (135-145); Total Protein 7.1 g/dL (6.5-8.0)
[2021-09-09 00:46] LABS: Troponin-I High Sensitivity 4.3 ng/L (<3.5-35.0)
[2021-09-09] MEDS: Magnesium Sulfate/H2O 2 GM/50 ML PIGGYBACK IV (01:00)
[2021-09-09] MEDS: Potassium Chloride Packet 20 MEQ PACKET 40 MEQ PO (01:00)
[2021-09-09] MEDS: Albuterol Sulfate 90 MCG 8 GM INHALER 4 PUFF INHALE (01:00)
[2021-09-09] MEDS: methylPREDNISolone Sod Succ 125 MG/2 ML VIAL IVPUSH (01:00)
[2021-09-09 03:44] LABS: Appearance Urine CLEAR; Color Urine YELLOW; Glucose Urine UA NEG (NEG); Leukocyte Esterase Urine NEG (NEG); Nitrite Urine NEG (NEG); PH 6.5 (5.0-8.0); Urine Blood NEG (NEG); Urine Ketones NEG (NEG); Urine Protein NEG (NEG-TRACE)
[2021-09-09 03:56] LABS: COVID-19 Test Negative (Negative)
[2021-09-09 03:58] LABS: Amphetamine Screen Urine Not Detected (Not Detect); Barbiturates, Urine Not Detected (Not Detect); Benzodiazepines Screen Urine Not Detected (Not Detect); Cannabinoid Screen Urine Not Detected (Not Detect); Cocaine Screen Urine Not Detected (Not Detect); Fentanyl, urine Not Detected (Not Detect); Opiate Screen Urine Not Detected (Not Detect); Phencyclidine Screen Urine Not Detected (Not Detect)
[2021-09-09 04:11] LABS: Troponin-I High Sensitivity < 3.5 ng/L (<3.5-35.0)
== END 2021-09-09 07:04 | disposition home or self-care (01) ==
PROVIDERS: Physician Assistant Medical; Emergency Provider Emergency Medicine Emergency Medical Services; PCP Internal Medicine
DX: F10.129 Alcohol abuse with intoxication, unspecified (principal); J44.1 Chronic obstructive pulmonary disease with (acute) exacerbation; E87.6 Hypokalemia; R05.9 Cough, unspecified; R07.89 Other chest pain; Y90.8 Blood alcohol level of 240 mg/100 ml or more; Z20.822 Contact with and (suspected) exposure to COVID-19; Z79.899 Other long term (current) drug therapy
CPT/HCPCS: 36415; 71046; 80053; 80307; 81003; 82077; 82550; 83690; 83735; 84484; 85025; 85610; 87635; 93005; 96361; 96365; 96366; 96375; 99284; 99285; J2930; J3475

== ENCOUNTER 2021-09-09 13:32 | Emergency (ER) | payer OTHER, SELFPAY ==
--- NOTE | ~2021-09-09 | XR_ITS ---
EXAMINATION: XR CHEST CLINICAL INFORMATION: Chest pain COMPARISON: Previous chest x-ray August 2021 TECHNIQUE: Frontal view of the chest was obtained. FINDINGS: The cardiac silhouette does not appear enlarged. There is a new lucency seen in the mediastinum measuring 2 x 7 cm in transverse and longitudinal dimension, question representing air in the esophagus or possibly air in the right lung overlapping the mediastinum related to patient rotation. Hilar and mediastinal contours are otherwise unremarkable. The lungs are clear. There is no pleural effusion or pneumothorax. Bony structures are unremarkable. Partially visualized IVC filter. XR/XR chest 1V IMPRESSION: New lucency or air seen in the mediastinum, question representing air in the esophagus or possibly the right lung related to patient positioning/rotation. This could be better evaluated with chest CT if clinically indicated.
[2021-09-09 13:44] VITALS: BP 111/63; BP 126/70; PULSE 70; PULSE 79; RESP 16; TEMP 36.8; O2SAT 94; O2SAT 95; BMI 21.5
--- NOTE | 2021-09-09 13:50 | ECG_ITS ---
Test Reason : chest pain Blood Pressure : / mmHG Vent. Rate : 073 BPM Atrial Rate : 073 BPM P-R Int : 112 ms QRS Dur : 138 ms QT Int : 438 ms P-R-T Axes : 057 -59 062 degrees QTc Int : 482 ms Normal sinus rhythm Left axis deviation Right bundle branch block Abnormal ECG When compared with ECG of 08-SEP-2021 23:53, No significant change was found Referred By: Generic ED Physician Electronically Signed By:WAYNE AVILEZ MD
[2021-09-09 14:12] LABS: Hematocrit 31.2 % (42.0-52.0); Hemoglobin 10.3 g/dl (14.0-18.0); Imm Gran Abs Auto 0.01 X10*3/uL (0.00-0.03); Imm Gran Pct Auto 0.4 % (0.0-0.4); Lymphocytes Absolute Auto 0.2 X10*3/uL (1.2-4.9); Lymphocytes Percent Auto 9.8 % (20-40); MANUAL DIFF FLAG SCAN; Mean Corpuscular Hemoglobin 28.9 pg (27.0-33.0); Mean Corpuscular Volume 87.4 fL (80.0-98.0); Mean Platelet Volume 8.6 fL (9.4-12.4); Monocytes Percent Auto 1.8 % (2-11); Platelet Count 78 X10*3/uL (160-400); Red Blood Count 3.57 X10*6/uL (4.60-5.80); Red Cell Distribution Width 17.1 % (11.0-16.0); SCAN SMEAR FLAG 1; White Blood Count 2.2 X10*3/uL (4.8-10.8)
--- NOTE | 2021-09-09 14:19 | ED_ITS ---
HPI - Chest Pain General Chief Complaint: Chest Pain Stated Complaint: Chest pain Time Seen by Provider: 09/09/21 14:19 Source: patient Mode of arrival: ambulatory Limitations: no limitations History of Present Illness HPI narrative: Patient here for alcohol withdrawal and wants placement, states he is weak and wants help, patient does not complain of chest pain at this time Timing of current episode: constant Prior episodes: Yes Related Data Home Medications Medication Instructions Recorded Confirmed apixaban 5 mg tablet (Eliquis) 1 tab PO BID 05/11/21 08/15/21 docusate sodium 100 mg capsule 1 cap PO DAILY 07/23/21 08/15/21 melatonin 3 mg tablet 1 tab PO BEDTIME 07/23/21 08/15/21 tiotropium bromide 1.25 2 puff inhalation DAILY 07/23/21 08/15/21 mcg/actuation mist for inhalation (Spiriva Respimat) albuterol sulfate 90 mcg/actuation 2 puff inhalation Q4H PRN Wheezing 07/24/21 08/15/21 aerosol inhaler Previous Rx's Medication Instructions Recorded albuterol sulfate 90 mcg/actuation 2 inh inhalation Q8H PRN shortness 09/09/21 aerosol inhaler of breath or wheezing #8.5 grams apixaban 5 mg tablet (Eliquis) 5 mg PO BID #60 tabs 09/09/21 tiotropium bromide 2.5 2 inh inhalation BEDTIME #4 grams 09/09/21 mcg/actuation mist for inhalation (Spiriva Respimat) Allergies Allergy/AdvReac Type Severity Reaction Status Date / Time Peanut Butter Allergy Facial Verified 09/09/21 13:49 Swelling raspberry Allergy Facial Verified 09/09/21 13:49 Swelling Review of Systems Constitutional: Constitutional: Reports no additional constitutional complaints Eyes: Eyes: Reports no additional eye complaints ENT: Denies dizziness Cardiovascular: Cardiovascular: Reports no additional cardiovascular complaints Respiratory: Respiratory: Reports as per HPI Gastrointestinal: Gastrointestinal: Reports no additional gastrointestinal complaints Musculoskeletal: Musculoskeletal: Reports no additional musculoskeletal complaints Integumentary/Breasts: Skin/Breast: Denies rash Neurologic: Reports system reviewed and no additional complaints, except as documented, Denies dizziness and Denies Sensory deficit (Neuro) Psychiatric: Psychiatric: Denies anxiety PMFSH Past Medical History Medical History Alcohol abuse Asthma COPD (chronic obstructive pulmonary disease) DVT (deep venous thrombosis) Neuropathy Subdural hematoma Social History Social History Alcohol intake: current Alcohol intake frequency: 3 or more drinks per day Alcohol type: hard liquor Patient Tobacco Use Status: Current everyday Tobacco user Substance Use Type: Marijuana Advance Directives: Yes Advance Directives Information Provided: Yes Advance Directives on File: No Physical Exam Vital Signs: Vital Signs: Last Vital Signs Temp 97.4 F 09/09/21 15:57 Pulse 79 09/09/21 15:57 Resp 16 09/09/21 15:57 BP 116/69 09/09/21 15:57 Pulse Ox 98 09/09/21 15:57 O2 Del Method 09/09/21 15:57 BMI result Body Mass Index 21.5 Const: Other: thin cachectic male resting comfortably Orientation/consciousness: oriented to person and patient oriented x3 Limitations: no limitations HEENT: Head: Yes normal to inspection Ears: external ears normal General nose exam: Normal external nose present Mouth: Normal oral and palatal mucosa present and oropharynx normal Throat: Yes posterior oropharynx normal Eyes: General: appearance normal, both eyes and all related structures Neck: Other: supple Neck: Yes normal visual inspection Chest: Chest palpation & inspection: normal inspection of the chest Resp: Auscultation: clear to auscultation bilaterally Cardio: Jugular venous distension: no JVD Rate: regular rate Rhythm: regular rhythm Heart sounds: S1 normal heart sound present and S2 normal heart sound present GI: Inspection: Yes normal to inspection Palpation (GI): Soft to palpation, nontender and No hepatosplenomegaly present Auscultation: normal bowel sounds : General: Yes no CVA tenderness Back/Spine/Pelvis: Back: no CVA tenderness Skin: General skin exam: no rashes or lesions noted Neuro: General: oriented to person and patient oriented x3 Cranial nerves: Yes CN's II-XII intact bilaterally Motor exam (neuro): 5/5 motor strength present throughout Sensory Exam: No Sensory deficit (Neuro) Extrem: General: Yes normal to inspection Psych: Appearance: grossly normal Course Reevaluation(s) Reevaluation #1: patient is medically cleared for detox Time: 15:42 MDM - Chest Pain Lab Data Result diagrams: 09/09/21 14:05 09/09/21 14:05 Labs: Lab Results 09/09/21 09/09/21 09/09/21 Range/Units 14:05 14:05 14:05 WBC 2.2 L (4.8-10.8) X10*3/uL RBC 3.57 L (4.60-5.80) X10*6/uL Hgb 10.3 L (14.0-18.0) g/dl Hct 31.2 L (42.0-52.0) % MCV 87.4 (80.0-98.0) fL MCH 28.9 (27.0-33.0) pg MCHC 33.0 (31.0-36.0) g/dl RDW 17.1 H (11.0-16.0) % Plt Count 78 L (160-400) X10*3/uL MPV 8.6 L (9.4-12.4) fL Immature Gran % (Auto) 0.4 (0.0-0.4) % Neut % (Auto) 88.0 H (45-73) % Lymph % (Auto) 9.8 L (20-40) % Hutchinson % (Auto) 1.8 L (2-11) % Eos % (Auto) 0.0 (0-4) % Baso % (Auto) 0.0 (0-2) % Lymph # (Auto) 0.2 L (1.2-4.9) X10*3/uL Hutchinson # (Auto) 0.0 L (0.1-1.2) X10*3/uL Eos # (Auto) 0.0 (0.0-0.4) X10*3/uL Baso # (Auto) 0.0 (0.0-0.2) X10*3/uL Abs Immat Gran (auto) 0.01 (0.00-0.03) X10*3/uL Absolute Neuts (auto) 2.0 (2.0-8.3) x10*3/uL Absolute Nucleated RBC 0.000 (0.0-0.012) X10*3/uL Nucleated RBC % (auto) 0.0 (0.0-0.2) /100WBC Smear Tech's Comments VERIFIED Smear Path Review SEE NOTE Sodium 139 (135-145) mmol/L Potassium 4.0 D (3.3-5.1) mmol/L Chloride 106 (96-108) mmol/L Carbon Dioxide 20 L (22-29) mmol/L Anion Gap 17 (12-20) BUN 8 L (9-16) mg/dL Creatinine 0.68 (0.5-1.4) mg/dL Estim Creat Clear Calc 106.8 Estimated GFR > 60 Random Glucose 127 H D (60-115) mg/dL Calcium 8.2 L (8.4-10.2) mg/dL Troponin I High Sens < 3.5 (<3.5-35.0) ng/L Ethyl Alcohol 255 mg/dL Discharge Plan Discharge Clinical Impression: Alcoholism Patient Disposition: Xfer Other Instructions: Alcohol Withdrawal (ED), Alcohol Dependence (ED) Prescriptions: New Eliquis 5 mg tablet 5 mg PO BID Qty: 60 0RF albuterol sulfate 90 mcg/actuation HFA aerosol inhaler 2 inh inhalation Q8H PRN (Reason: shortness of breath or wheezing) Qty: 8.5 0RF Spiriva Respimat 2.5 mcg/actuation mist 2 inh inhalation BEDTIME Qty: 4 0RF No Action melatonin 3 mg tablet 1 tab PO BEDTIME docusate sodium 100 mg capsule 1 cap PO DAILY Spiriva Respimat 1.25 mcg/actuation mist 2 puff inhalation DAILY albuterol sulfate 90 mcg/actuation HFA aerosol inhaler 2 puff inhalation Q4H PRN (Reason: Wheezing) Eliquis 5 mg tablet 1 tab PO BID Referrals: Cristhian Delgado MD [Primary Care Provider] - Discharge Date/Time: 09/09/21 17:34
[2021-09-09 14:31] LABS: Anion Gap 17 (12-20); Blood Urea Nitrogen 8 mg/dL (9-16); Calcium 8.2 mg/dL (8.4-10.2); Carbon Dioxide 20 mmol/L (22-29); Chloride 106 mmol/L (96-108); Creatinine Clr Calc Pharmacy 106.8; Estimated Glomerular Filt Rate > 60; Glucose Random 127 mg/dL (60-115); Sodium 139 mmol/L (135-145)
[2021-09-09 14:32] LABS: SLIDE REVIEW VERIFIED
[2021-09-09 14:36] LABS: Troponin-I High Sensitivity < 3.5 ng/L (<3.5-35.0)
[2021-09-09 14:45] LABS: Ethanol 255 mg/dL
--- NOTE | 2021-09-09 15:46 | MHC.RECOVRN ---
Met with pt in ED12 to discuss substance use and desire for treatment. Pt reports drinking alcohol, 2 pints daily of [place] as well as occasional marijuana use. Denies other substances. Pt is interested in ATS. [facility] not have bed availability until 2PM tomorrow, 09/10. [facility] does not have availability this evening. [facility] does have availability, discussed with pt, pt willing to go if accepted. T/w will send referral.
[2021-09-09 15:57] VITALS: BP 116/69; PULSE 79; RESP 16; TEMP 36.3; O2SAT 98
--- NOTE | 2021-09-09 17:23 | MHC.CARE ---
Pt accepted for transfer/admission to [facility] in [place]. Paper scripts for eliquis, spiriva, and albuterol inhalers printed and put in an envelope for pt to give to the nurses when he arrives. Pt is hesitant but agreeable for transfer. [facility] ordered for transport.
== END 2021-09-09 17:34 | disposition other institution (70) ==
PROVIDERS: Emergency Provider Emergency Medicine; PCP Internal Medicine
DX: F10.239 Alcohol dependence with withdrawal, unspecified (principal); R07.89 Other chest pain; Y90.8 Blood alcohol level of 240 mg/100 ml or more; F17.210 Nicotine dependence, cigarettes, uncomplicated; Z71.6 Tobacco abuse counseling; Z79.899 Other long term (current) drug therapy
CPT/HCPCS: 36415; 71045; 80048; 82077; 84484; 85025; 93005; 99283; 99284

== ENCOUNTER 2021-09-12 03:45 | Emergency (ER) | payer OTHER, SELFPAY ==
[2021-09-12 03:49] VITALS: BP 128/74; PULSE 90; O2SAT 98
[2021-09-12 03:51] VITALS: BP 98/57; PULSE 79; RESP 15; TEMP 36.9; O2SAT 95; BMI 21.4
--- NOTE | 2021-09-12 04:13 | ED.ALCOHOL ---
HPI - Alcohol General Chief Complaint: ETOH/Substance Use Stated Complaint: etoh Time Seen by Provider: 09/12/21 04:13 Source: patient Mode of arrival: EMS Limitations: no limitations History of Present Illness HPI narrative: Patient alcoholic was sent to rehab today after staying for 2 hours he did not like the surrounding called ambulance and came here now requesting to go to the other place patient been to rehab more than 40 times with poor compliance patient denies any depression or suicidal ideation Related Data Home Medications Medication Instructions Recorded Confirmed apixaban 5 mg tablet (Eliquis) 1 tab PO BID 05/11/21 08/15/21 docusate sodium 100 mg capsule 1 cap PO DAILY 07/23/21 08/15/21 melatonin 3 mg tablet 1 tab PO BEDTIME 07/23/21 08/15/21 tiotropium bromide 1.25 2 puff inhalation DAILY 07/23/21 08/15/21 mcg/actuation mist for inhalation (Spiriva Respimat) albuterol sulfate 90 mcg/actuation 2 puff inhalation Q4H PRN Wheezing 07/24/21 08/15/21 aerosol inhaler Previous Rx's Medication Instructions Recorded albuterol sulfate 90 mcg/actuation 2 inh inhalation Q8H PRN shortness 09/09/21 aerosol inhaler of breath or wheezing #8.5 grams apixaban 5 mg tablet (Eliquis) 5 mg PO BID #60 tabs 09/09/21 tiotropium bromide 2.5 2 inh inhalation BEDTIME #4 grams 09/09/21 mcg/actuation mist for inhalation (Spiriva Respimat) Allergies Allergy/AdvReac Type Severity Reaction Status Date / Time Peanut Butter Allergy Facial Verified 09/09/21 13:49 Swelling raspberry Allergy Facial Verified 09/09/21 13:49 Swelling Review of Systems Review of Systems: Yes all other systems are reviewed and are negative PMFSH Past Medical History Medical History Alcohol abuse Asthma COPD (chronic obstructive pulmonary disease) DVT (deep venous thrombosis) Neuropathy Subdural hematoma Social History Social History Alcohol intake: current Alcohol intake frequency: 3 or more drinks per day Alcohol type: hard liquor Patient Tobacco Use Status: Current everyday Tobacco user Substance Use Type: Marijuana Advance Directives: No Physical Exam ED Vital Signs: Vital Signs - 24 hr 09/12/21 03:51 Temperature 98.5 F Pulse Rate 79 Respiratory Rate 15 Blood Pressure 98/57 L Pulse Oximetry 95 Oxygen Delivery Method Room Air BMI result Body Mass Index 21.4 Appearance: Alert. Oriented X3. No acute distress. etoh+ Eyes: PERRLA, No Nystagmus ENT: Pharynx normal. Oral Mucosa moist Neck: Normal inspection. Neck supple. CVS: Normal heart rate and rhythm. Pulses normal. Respiratory: No respiratory distress. Equal air entry bilateral, no wheezing/rales/rhonchi Abdomen: Soft and nontender. Bowel sounds are present, no mass palpable, no CVA tenderness Skin: Skin warm and dry. Normal skin color. Normal skin turgor. Extremities: No lower extremity edema. No calf tenderness Neuro: Oriented X 3. No motor deficit. No sensory deficit.No cerebellar signs , cranial nerves II-XII intact MDM - Alcohol MDM Narrative Medical decision making narrative: Patient alcolic asking for detox been here multiple times for the same patient refused to stay in the ER to such were the bed eloped from the ER in a steady gait Differential Diagnosis Differential diagnosis: Likely alcohol dependence Discharge Plan Discharge Clinical Impression: Alcoholic intoxication Patient Disposition: Elopement Prescriptions: No Action melatonin 3 mg tablet 1 tab PO BEDTIME docusate sodium 100 mg capsule 1 cap PO DAILY Spiriva Respimat 1.25 mcg/actuation mist 2 puff inhalation DAILY albuterol sulfate 90 mcg/actuation HFA aerosol inhaler 2 puff inhalation Q4H PRN (Reason: Wheezing) Eliquis 5 mg tablet 5 mg PO BID Qty: 60 0RF albuterol sulfate 90 mcg/actuation HFA aerosol inhaler 2 inh inhalation Q8H PRN (Reason: shortness of breath or wheezing) Qty: 8.5 0RF Spiriva Respimat 2.5 mcg/actuation mist 2 inh inhalation BEDTIME Qty: 4 0RF Eliquis 5 mg tablet 1 tab PO BID
--- NOTE | 2021-09-12 05:25 | PC.NURSE ---
pt irratable, states that no one is helping him. pt asked what he needs, pt told this RN he needs attention. This RN reminded him [facility] will be here in the morning. pt asking to leave. This RN told pt he came in voluntarily and we cannot keep him, so if that is his wish, he may go. pt asking for a taxi to be called. taxi called and pt eloped from ER stating that he no longer cares about detox. steady gait out of ER.
== END 2021-09-12 05:35 | disposition left against medical advice (07) ==
PROVIDERS: Emergency Provider Internal Medicine
DX: F10.120 Alcohol abuse with intoxication, uncomplicated (principal); Y90.9 Presence of alcohol in blood, level not specified; F17.200 Nicotine dependence, unspecified, uncomplicated; F12.90 Cannabis use, unspecified, uncomplicated; Z86.718 Personal history of other venous thrombosis and embolism; Z79.01 Long term (current) use of anticoagulants
CPT/HCPCS: 99281; 99284

== ENCOUNTER 2021-10-01 19:59 | Emergency (ER) | payer OTHER, SELFPAY ==
[2021-10-01 20:07] VITALS: BP 122/65; BP 124/86; PULSE 80; PULSE 86; RESP 16; TEMP 36.9; O2SAT 94; O2SAT 98; BMI 21.4
--- NOTE | 2021-10-01 20:51 | ED.ALCOHOL ---
HPI - Alcohol General Chief Complaint: ETOH/Substance Use Stated Complaint: etoh Source: patient Mode of arrival: ambulatory Limitations: no limitations History of Present Illness HPI narrative: 61-year-old male presents via EMS for ETOH abuse seeking detox. He does not report suicidal or homicidal ideations, but states to be depressed and does not want to live like this anymore. Patient does not report any physical complaints. MD complaint: alcohol intoxication, alcohol dependence and desires rehab Last drink: Hours (ago) (09:00 this morning) Chronic alcohol use: Yes Previous visits for alcohol intoxication: Yes Recent trauma: No Associated symptoms: denies other symptoms Treatments prior to arrival: none Related Data Home Medications Medication Instructions Recorded Confirmed apixaban 5 mg tablet (Eliquis) 1 tab PO BID 05/11/21 08/15/21 docusate sodium 100 mg capsule 1 cap PO DAILY 07/23/21 08/15/21 melatonin 3 mg tablet 1 tab PO BEDTIME 07/23/21 08/15/21 tiotropium bromide 1.25 2 puff inhalation DAILY 07/23/21 08/15/21 mcg/actuation mist for inhalation (Spiriva Respimat) albuterol sulfate 90 mcg/actuation 2 puff inhalation Q4H PRN Wheezing 07/24/21 08/15/21 aerosol inhaler Previous Rx's Medication Instructions Recorded albuterol sulfate 90 mcg/actuation 2 inh inhalation Q8H PRN shortness 09/09/21 aerosol inhaler of breath or wheezing #8.5 grams apixaban 5 mg tablet (Eliquis) 5 mg PO BID #60 tabs 09/09/21 tiotropium bromide 2.5 2 inh inhalation BEDTIME #4 grams 09/09/21 mcg/actuation mist for inhalation (Spiriva Respimat) Allergies Allergy/AdvReac Type Severity Reaction Status Date / Time Peanut Butter Allergy Facial Verified 10/01/21 20:06 Swelling raspberry Allergy Facial Verified 10/01/21 20:06 Swelling Review of Systems Review of Systems: Constitutional: No Fever, No Chills ENT/Mouth: No sore throat, No Rhinorrhea Eyes: No Eye Pain, No Swelling, No Redness Cardiovascular: No Chest Pain, No SOB Respiratory: No Cough, No Sputum Gastrointestinal: No Nausea, No Vomiting, No Diarrhea, No abdominal Pain Genitourinary: No Dysuria, No Hematuria Musculoskeletal: No joint pain, No Myalgias, No Joint Swelling Skin: No Skin Lesions, No rash Neuro: No Weakness, No Numbness, No Loss of Consciousness, No Dizziness, No Headache Psych: Positive alcohol abuse, No Anxiety, No Depression, No SI/HI/AH/VH Heme/Lymph: No Bruising, No Bleeding,No Lymphadenopathy Endocrine: No Polyuria, No Polydipsia Yes all other systems are reviewed and are negative [facility] Past Medical History Attestation statement: The following information was validated with the patient. Source: old records reviewed Medical History Alcohol abuse Asthma COPD (chronic obstructive pulmonary disease) DVT (deep venous thrombosis) Neuropathy Subdural hematoma Social History Social History Alcohol intake: current Alcohol intake frequency: 3 or more drinks per day Alcohol type: hard liquor Patient Tobacco Use Status: Current everyday Tobacco user Substance Use Type: Marijuana Advance Directives: No Advance Directives Information Provided: No Physical Exam ED Vital Signs: Vital Signs - 24 hr 10/01/21 20:07 Temperature 98.4 F Pulse Rate 86 Respiratory Rate 16 Blood Pressure 122/65 Pulse Oximetry 94 Oxygen Delivery Method Room Air BMI result Body Mass Index 21.4 Appearance: Alert. Oriented X3. Moderate emotional distress. Eyes: Pupils equal, round and reactive to light. Sclera nonicteric. ENT: Pharynx normal. Moist mucous membranes. Neck: Normal inspection. Neck supple. CVS: Normal heart rate and rhythm. Pulses normal. Respiratory: No respiratory distress. Breath sounds normal. Abdomen: Soft and nontender. Skin: Skin warm and dry. Normal skin color. Normal skin turgor. Extremities: No lower extremity edema. Moves all extremities against resistance. Neuro: No motor deficit. No sensory deficit. Cranial nerves 2-12 intact. Course Course Course Narrative: 61-year-old male presents via EMS for ETOH intoxication and is seeking detox. States that he drinks at least 2 and half pt of Southern comfort daily. Feels depressed and hopeless. Would like to stop drinking, does not feel like he is going through withdrawals at this time. Denies chest pain or pressure, palpitations, shortness of breath, abdominal pain, abdominal distention, auditory visual hallucinations, suicidal and homicidal ideations. Will reach out to recovery team. 20:53 discussion with care team for plan for detox. 21:26 care team consult complete, plan is for detox in the morning. 23:25 patient is asking for albuterol, states to feel a bit anxious. Order for Ativan, and CIWA. Physician observation started at this time. MDM - Alcohol Differential Diagnosis Differential diagnosis: Likely alcohol dependence and alcohol intoxication Medical Records Attestation: I reviewed the patient's medical records. Discharge Plan Discharge Clinical Impression: Alcohol abuse Patient Disposition: Still a Patient Instructions: Abuse of Alcohol (ED) Additional Instructions: Thank you for choosing detox. Thank you for choosing this emergency department for evaluation. Please follow-up with primary care physician as needed. Return to the emergency department for any new, concerning, or worsening symptoms. Prescriptions: No Action melatonin 3 mg tablet 1 tab PO BEDTIME docusate sodium 100 mg capsule 1 cap PO DAILY Spiriva Respimat 1.25 mcg/actuation mist 2 puff inhalation DAILY albuterol sulfate 90 mcg/actuation HFA aerosol inhaler 2 puff inhalation Q4H PRN (Reason: Wheezing) Eliquis 5 mg tablet 5 mg PO BID Qty: 60 0RF albuterol sulfate 90 mcg/actuation HFA aerosol inhaler 2 inh inhalation Q8H PRN (Reason: shortness of breath or wheezing) Qty: 8.5 0RF Spiriva Respimat 2.5 mcg/actuation mist 2 inh inhalation BEDTIME Qty: 4 0RF Eliquis 5 mg tablet 1 tab PO BID
--- NOTE | 2021-10-01 21:28 | MHC.CARE ---
CARE TEAM spoke to pt regarding detox admission. Pt reported experiencing increase depression, not eating for various days and excessive drinking; and expressed help seeking. CARE TEAM contacted various detox facilities. Due to no vacancies and pt's risk of going through withdraw, pt will remain in ED, awaiting Recovery Consult.
[2021-10-01] MEDS: Albuterol Sulfate 90 MCG 8 GM INHALER 2 PUFF INHALE (23:36)
[2021-10-02] MEDS: LORazepam 1 MG TABLET 2 MG PO (00:10)
[2021-10-02 06:08] VITALS: BP 118/67; PULSE 87; RESP 18; O2SAT 92
--- NOTE | 2021-10-02 09:28 | PC.NURSE ---
patient asking about his dispo, states he is working on getting into a facility form home and would like to be dc home. Carol from narcotics detective notified and agreed that is ok plan for dc. provider notified and patient dc home. showing no signs of alcohol withdrawal at time of dc.
== END 2021-10-02 09:33 | disposition home or self-care (01) ==
PROVIDERS: Emergency Provider Emergency Medicine Emergency Medical Services; PCP Internal Medicine
DX: F10.20 Alcohol dependence, uncomplicated (principal); Y90.9 Presence of alcohol in blood, level not specified; Z79.899 Other long term (current) drug therapy; Z79.4 Long term (current) use of insulin; F17.200 Nicotine dependence, unspecified, uncomplicated; Z71.6 Tobacco abuse counseling
CPT/HCPCS: 99284

== ENCOUNTER 2021-10-06 11:10 | Emergency (ER) | payer OTHER, SELFPAY ==
--- NOTE | ~2021-10-06 | CT_ITS ---
EXAMINATION: CT ANGIOGRAM OF THE CHEST WITH AND WITHOUT CONTRAST (CT PULMONARY ANGIOGRAM FOR PE) CLINICAL INFORMATION: Reason for Exam hx DVT on Eliquis/non compliant, +sob COMPARISON: None TECHNIQUE: Prior to contrast administration, noncontrast localization images were obtained. Subsequently, multidetector volumetric imaging was performed from the thoracic inlet to below the diaphragms following the administration of 65 mL Omnipaque 350 intravenous contrast. No contrast reaction reported Sagittal, coronal, and MIP oblique sagittal reformatted images were obtained on the CT workstation, uploaded to PACS, and reviewed. This CT examination was performed using dose optimization techniques as appropriate, variously including the following: *Automated exposure control *Adjustment of mA and/or kV according to patient size (this includes techniques or standardized protocols for targeted exams where dose is matched to indication/reason for exam; i.e. extremities or head) *Use of iterative reconstruction technique Total exam dose-length product 286 mGy-cm FINDINGS: QUALITY OF STUDY/CONTRAST BOLUS: Satisfactory. PULMONARY ARTERIES: Multiple linear filling defect/webs within segmental branches of the pulmonary arteries in the bilateral upper lobes and bilateral lower lobes as well as a partially calcified and within the left main pulmonary artery. Findings are compatible with chronic/prior recanalized pulmonary emboli. No acute pulmonary arterial filling defect. Normal caliber central pulmonary trunk measuring 2.4 cm in diameter. THORACIC AORTA: No aneurysm or dissection. LUNG: Small sub-4 mm calcified granulomas in the peripheral left upper lobe, superior segment left lower lobe, and inferior right middle lobe. No other solid pulmonary nodules. There are mild centrilobular emphysematous changes within both lungs. Several thin-walled air cysts versus a small focal areas of cystic bronchiectasis are seen in the mid and upper lungs with surrounding groundglass attenuation and reticulation most prominently in the left upper lobe. No airspace consolidation. Minimal diffuse bronchial wall thickening. Small amount of foamy secretions or mucous in the dependent trachea and left mainstem bronchus. PLEURA: No pleural effusion or pneumothorax. MEDIASTINUM: No cardiomegaly or pericardial effusion. 0.8 cm short axis precarinal lymph node, not enlarged by size criteria. No pathologically enlarged mediastinal or hilar lymph nodes. No evidence of septal bowing or right heart strain. CHEST WALL/AXILLA: No axillary lymphadenopathy. Symmetrically increased subareolar soft tissue densities bilaterally compatible with mild gynecomastia. Incidental finding of a 4 x 1.8 cm low-density subdermal mass in the posterior right back, likely sebaceous or epidermal inclusion cyst on series 5 image 12. Linear scar tissue overlies the dorsal left paraspinal musculature. OSSEOUS STRUCTURES: Old fracture deformities of the C7, T1, T2, T3 spinous processes. Chronic appearing compression deformities of T3, T4, T5, T7, and T12 vertebral bodies. No acute fracture or suspicious osseous lesion. UPPER ABDOMEN: Calcified gallstones. Severe right renal atrophy. Visualized upper abdominal viscera otherwise unremarkable. No reflux of contrast into the hepatic veins to suggest elevated right heart pressures. CT/CT angio chest PE protocol IMPRESSION: 1. Multiple bands/webs within segmental branches of the bilateral pulmonary arteries as well as within the left main pulmonary artery compatible with sequela of prior/chronic recanalized pulmonary emboli. No acute pulmonary embolus identified. 2. Normal caliber central pulmonary trunk. 3. Focal areas of cystic bronchiectasis versus small air cysts with surrounding glass attenuation with mid and upper lung zone dominant cyst, nonspecific could be sequela of prior infection/bronchiolitis or conceivably Langerhans cell histiocytosis. 4. Mild centrilobular emphysema. 5. Cholelithiasis. 6. Multiple chronic thoracic spine fracture deformities, as above. VTE: negative
--- NOTE | ~2021-10-06 | XR_ITS ---
EXAMINATION: XR CHEST CLINICAL INFORMATION: Shortness of breath COMPARISON: 09/09/2021: TECHNIQUE: Frontal view of the chest was obtained. FINDINGS: No significant abnormality is noted involving the heart, lungs, mediastinum, bony thorax or soft tissues. Previously seen air overlying the mediastinum on the prior study is no longer present. XR/XR chest 1V IMPRESSION: No acute intrathoracic disease
--- NOTE | ~2021-10-06 | US_ITS ---
EXAMINATION: US VENOUS ULTRASOUND WITH DOPPLER LOWER EXTREMITY, BILATERAL CLINICAL INFORMATION: History of DVT, noncompliant on maintenance COMPARISON: None TECHNIQUE: Ultrasound of the deep veins is performed from the hip to the calf with compression sonography and color and pulse Doppler assessment. Spectral analysis with color-flow imaging is performed. FINDINGS: RIGHT: There is thrombus present in the right lower extremity in the femoral vein just prior to the confluence with the great saphenous vein. The thrombus is nonobstructive. The remainder of the lower extremity is unremarkable with normal venous compression and respiratory variation and augmented flow. The visualized common femoral vein, uninvolved portions of the femoral vein, profunda femoral vein, popliteal vein, and the trifurcation region shows no evidence of deep venous thrombosis. There is no significant popliteal fossa cyst. LEFT: In the left lower extremity, there is thrombus present in the mid femoral vein. The remainder of the lower extremity is unremarkable with normal venous compression and respiratory variation and augmented flow. The visualized common femoral vein, uninvolved portions of the femoral vein, profunda femoral vein, popliteal vein, and the trifurcation region shows no evidence of deep venous thrombosis. There is no significant popliteal fossa cyst. US/US venous duplex LE BI IMPRESSION: Bilateral lower extremity DVT
--- NOTE | 2021-10-06 11:46 | ECG_ITS ---
Test Reason : SOB Blood Pressure : / mmHG Vent. Rate : 071 BPM Atrial Rate : 071 BPM P-R Int : 126 ms QRS Dur : 132 ms QT Int : 416 ms P-R-T Axes : 067 -67 046 degrees QTc Int : 452 ms Normal sinus rhythm Right bundle branch block Left anterior fascicular block Bifascicular block Abnormal ECG When compared with ECG of 09-SEP-2021 13:52, No significant changes seen Referred By: Melly Beltran Electronically Signed By:RENEE TRAMMELL
[2021-10-06 11:48] VITALS: BP 123/73; BP 130/70; PULSE 80; RESP 16; TEMP 36.6; O2SAT 97; BMI 21.4
--- NOTE | 2021-10-06 11:51 | ED.ALCOHOL ---
HPI - Alcohol General Chief Complaint: ETOH/Substance Use Stated Complaint: UNABLE TO UNDERSTAND Time Seen by Provider: 10/06/21 11:33 Source: patient and EMS Mode of arrival: EMS History of Present Illness HPI narrative: 61-year-old male with a past medical history of ETOH abuse, asthma/COPD, DVT on Eliquis, BIBA for ETOH intoxication and requesting detox. 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 Denies SI/HI, or falls today. Does report noncompliance with Eliquis x1 week due to running out of prescription. Also reports acute on chronic worsening SOB, and bilateral LE pain. Denies fever, chills, cough, abdominal pain, nausea/vomiting. Admits to history of EtOH withdrawal seizures, cannot specify MD complaint: alcohol intoxication Last drink: Just prior to admission Related Data Home Medications Medication Instructions Recorded Confirmed docusate sodium 100 mg capsule 1 cap PO BID 07/23/21 10/06/21 melatonin 3 mg tablet 1 tab PO BEDTIME 07/23/21 08/15/21 tiotropium bromide 1.25 2 puff inhalation DAILY 07/23/21 08/15/21 mcg/actuation mist for inhalation (Spiriva Respimat) acamprosate 333 mg tablet,delayed 2 tab PO TID 10/06/21 10/06/21 release buspirone 10 mg tablet 1 tab PO BID 10/06/21 10/06/21 clonidine HCl 0.1 mg tablet 1 tab PO TID 10/06/21 10/06/21 cyclobenzaprine 5 mg tablet 1 tab PO TID PRN Muscle Spasm 10/06/21 10/06/21 duloxetine 30 mg capsule,delayed 1 cap PO DAILY 10/06/21 10/06/21 release hydroxyzine HCl 50 mg tablet 1 tab PO TID 10/06/21 10/06/21 Previous Rx's Medication Instructions Recorded albuterol sulfate 90 mcg/actuation 2 inh inhalation Q8H PRN shortness 09/09/21 aerosol inhaler of breath or wheezing #8.5 grams apixaban 5 mg tablet (Eliquis) 5 mg PO BID #60 tabs 09/09/21 Allergies Allergy/AdvReac Type Severity Reaction Status Date / Time Peanut Butter Allergy Facial Verified 10/01/21 20:06 Swelling raspberry Allergy Facial Verified 10/01/21 20:06 Swelling Review of Systems Review of Systems: Constitutional: No Fever, No Chills, No Fatigue, No Malaise ENT/Mouth: No Ear Pain, No Nasal Congestion, No sore throat, No Rhinorrhea, No Swallowing Difficulty Eyes: No Eye Pain, No Swelling, No Redness, No Foreign Body, No Vision Changes Cardiovascular: No Chest Pain, + SOB, No Dyspnea on Exertion, No Orthopnea, No Edema, No Palpitations Respiratory: No Cough, No Sputum, No Dyspnea Gastrointestinal: No Nausea, No Vomiting, No Diarrhea, No Constipation, No Abdominal pain Genitourinary: No Dysuria, No Urinary Frequency, No Hematuria, No Flank Pain, No Urinary Flow Changes, No Hesitancy Musculoskeletal: + LE pain, No Myalgias, No Joint Swelling Skin: No Skin Lesions, No rash Neuro: No Weakness, No Numbness, No Loss of Consciousness, No Dizziness, No Headache, no head trauma Psych: No Anxiety/Panic, No SI/HI, No Social Issues Yes all other systems are reviewed and are negative Constitutional: Constitutional: Reports as per HPI Neurologic: Denies Abnormal speech present [facility] Past Medical History Attestation statement: The following information was validated with the patient. Medical History Alcohol abuse Asthma COPD (chronic obstructive pulmonary disease) DVT (deep venous thrombosis) Neuropathy Subdural hematoma Social History Social History Alcohol intake: current Alcohol intake frequency: 3 or more drinks per day Alcohol type: hard liquor Patient Tobacco Use Status: Current everyday Tobacco user Use of substances other than those prescribed or required for medical reasons: No Substance Use Type: Marijuana Advance Directives: Yes Advance Directives Information Provided: No Advance Directives on File: No Physical Exam ED Vital Signs: Vital Signs - 24 hr 10/06/21 11:48 10/06/21 14:41 10/06/21 17:14 Temperature 97.9 F 97.7 F 98.2 F Pulse Rate 80 82 84 Respiratory Rate 16 16 16 Blood Pressure 123/73 110/58 L 157/74 H Pulse Oximetry 97 94 98 Oxygen Delivery Method Room Air Room Air Room Air BMI result Body Mass Index 21.4 Const Other: + EtOH odor on breath. No tongue fasciculations/Tremors General: cooperative, no acute distress, alert and awake Limitations: no limitations HENMT Head: Yes normal to inspection and Yes atraumatic Ears: hearing grossly normal bilaterally General nose exam: Normal external nose present Face and sinus: Yes normal facial exam Eyes General: appearance normal, both eyes and all related structures EOM: EOMs intact bilaterally Neck Neck: Yes normal visual inspection and Yes no meningeal signs Resp Effort & Inspection: normal respiratory effort and no respiratory distress Auscultation: clear to auscultation bilaterally, no crackles, no rales, no rhonchi and no wheezes Cardio Rate: regular rate Heart sounds: S1 normal heart sound present and S2 normal heart sound present GI Inspection: Yes normal to inspection Palpation (GI): Soft to palpation, nontender, no guarding and not rigid General: Yes no CVA tenderness Back/Spine/Pelvis Other: No midline thoracic/lumbar spinous tenderness/step-off or deformity Back: no CVA tenderness Skin Rashes: no rashes Wounds: no wounds Neuro General: gait normal, tone normal, moves all extremities, no meningeal signs, no focal motor deficits and CN's II-XI intact bilaterally Cranial nerves: Yes CN's II-XII intact bilaterally Cognition (Neuro): normal cognition Speech: No Abnormal speech present Gait exam (Neuro): Normal gait present Motor exam (neuro): 5/5 motor strength present throughout Extrem Other: RIZZO General: Yes normal to inspection Psych Appearance: grossly normal Thought content: Normal thought content present Course Course Course Narrative: XR chest 1V IMPRESSION: No acute intrathoracic disease US venous duplex LE BI IMPRESSION: Bilateral lower extremity DVT > Known, likely old. contacted Radiology for their impression -[id number]--no leukocytosis. H&H is stable. Bicarb 32, labs otherwise reassuring -UA with 15-29 wbc's and positive leuk esterase > IV Rocephin ordered. Tox screen positive for benzodiazepines. Ethanol [phone]--CTA still pending. Patient ate while in the emergency department, apparently cannot obtain CTA until 2-3 hours after eating due to risk of nausea/vomiting an aspiration after contrast CT angio chest PE protocol IMPRESSION: ? 1. Multiple bands/webs within segmental branches of the bilateral pulmonary arteries as well as within the left main pulmonary artery compatible with sequela of prior/chronic recanalized pulmonary emboli. No acute pulmonary embolus identified. 2. Normal caliber central pulmonary trunk. 3. Focal areas of cystic bronchiectasis versus small air cysts with surrounding glass attenuation with mid and upper lung zone dominant cyst, nonspecific could be sequela of prior infection/bronchiolitis or conceivably Langerhans cell histiocytosis. 4. Mild centrilobular emphysema. 5. Cholelithiasis. 6. Multiple chronic thoracic spine fracture deformities, as above. ? VTE: negative >> will re-initiate patient on his home Eliquis. Findings likely chronic from patient's noncompliance. 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 reportS noncompliance with Eliquis x1 week w/ SOB, and bilateral LE pain. On exam vital signs stable, EtOH odor on breath, appears intoxicated, RIZZO, no evidence of trauma, lungs CTA, no pedal edema. Concern for ETOH intoxication. Concern for DVT/PE with patient's noncompliance. Rule out metabolic abnormalities. Lower suspicion for viral illness/pneumonia or COPD exacerbation at this time. No evidence of ETOH withdrawal at this time Plan: EKG, labs, UA, ethanol, drug screen, CTA, venous duplex ultrasound, diving coach consult Medical Records Attestation: I reviewed the patient's medical records. Lab Data Attestation: I reviewed the patient's lab results. Result diagrams: 10/06/21 13:53 10/06/21 13:53 Labs: Lab Results 10/06/21 10/06/21 10/06/21 Range/Units 13:52 13:52 13:53 WBC 4.9 (4.8-10.8) X10*3/uL RBC 4.07 L (4.60-5.80) X10*6/uL Hgb 11.7 L (14.0-18.0) g/dl Hct 36.4 L (42.0-52.0) % MCV 89.4 (80.0-98.0) fL MCH 28.7 (27.0-33.0) pg MCHC 32.1 (31.0-36.0) g/dl RDW 16.1 H (11.0-16.0) % Plt Count 236 D (160-400) X10*3/uL MPV 8.5 L (9.4-12.4) fL Immature Gran % (Auto) 0.2 (0.0-0.4) % Neut % (Auto) 53.7 (45-73) % Lymph % (Auto) 32.3 (20-40) % [place] % (Auto) 9.8 (2-11) % Eos % (Auto) 2.4 (0-4) % Baso % (Auto) 1.6 (0-2) % Lymph # (Auto) 1.6 (1.2-4.9) X10*3/uL [place] # (Auto) 0.5 (0.1-1.2) X10*3/uL Eos # (Auto) 0.1 (0.0-0.4) X10*3/uL Baso # (Auto) 0.1 (0.0-0.2) X10*3/uL Abs Immat Gran (auto) 0.01 (0.00-0.03) X10*3/uL Absolute Neuts (auto) 2.6 (2.0-8.3) x10*3/uL Absolute Nucleated RBC 0.000 (0.0-0.012) X10*3/uL Nucleated RBC % (auto) 0.0 (0.0-0.2) /100WBC PT 10.8 (10.0-13.1) SEC INR 0.9 (0.9-1.1) APTT 37.6 H (26.0-36.4) SEC Sodium (135-145) mmol/L Potassium (3.3-5.1) mmol/L Chloride (96-108) mmol/L Carbon Dioxide (22-29) mmol/L Anion Gap (12-20) BUN (9-16) mg/dL Creatinine (0.5-1.4) mg/dL Estim Creat Clear Calc Estimated GFR Random Glucose (60-115) mg/dL Calcium (8.4-10.2) mg/dL Magnesium (1.6-2.6) mg/dL Troponin I High Sens < 3.5 (<3.5-35.0) ng/L B-Natriuretic Peptide 22 (<100) pg/mL Lipase (8-78) U/L Urine Color Urine Appearance Urine pH (5.0-8.0) Ur Specific [place] (1.005-1.025) Urine Protein (NEG-TRACE) MG/DL Urine Glucose (UA) (NEG) MG/DL Urine Ketones (NEG) MG/DL Urine Blood (NEG) Urine Nitrite (NEG) Ur Leukocyte Esterase (NEG) Urine RBC (0) /HPF Urine WBC (0-4) /HPF Urine WBC Clumps Ur Squamous Epith Cells /LPF Urine Bacteria /LPF Ur Oval Fat Bodies (NONE) Urine Opiates Screen (Not Detect) Urine Fentanyl Screen (Not Detect) Ur Barbiturates Screen (Not Detect) Ur Phencyclidine Scrn (Not Detect) Ur Amphetamines Screen (Not Detect) U Benzodiazepines Scrn (Not Detect) Urine Cocaine Screen (Not Detect) U Marijuana (THC) Screen (Not Detect) Ethyl Alcohol mg/dL COVID-19 (NELY) (Negative) COVID-19 Clin Com 10/06/21 10/06/21 10/06/21 Range/Units 13:53 13:53 13:53 WBC (4.8-10.8) X10*3/uL RBC (4.60-5.80) X10*6/uL Hgb (14.0-18.0) g/dl Hct (42.0-52.0) % MCV (80.0-98.0) fL MCH (27.0-33.0) pg MCHC (31.0-36.0) g/dl RDW (11.0-16.0) % Plt Count (160-400) X10*3/uL MPV (9.4-12.4) fL Immature Gran % (Auto) (0.0-0.4) % Neut % (Auto) (45-73) % Lymph % (Auto) (20-40) % [place] % (Auto) (2-11) % Eos % (Auto) (0-4) % Baso % (Auto) (0-2) % Lymph # (Auto) (1.2-4.9) X10*3/uL [place] # (Auto) (0.1-1.2) X10*3/uL Eos # (Auto) (0.0-0.4) X10*3/uL Baso # (Auto) (0.0-0.2) X10*3/uL Abs Immat Gran (auto) (0.00-0.03) X10*3/uL Absolute Neuts (auto) (2.0-8.3) x10*3/uL Absolute Nucleated RBC (0.0-0.012) X10*3/uL Nucleated RBC % (auto) (0.0-0.2) /100WBC PT (10.0-13.1) SEC INR (0.9-1.1) APTT (26.0-36.4) SEC Sodium 145 (135-145) mmol/L Potassium 4.6 (3.3-5.1) mmol/L Chloride 102 (96-108) mmol/L Carbon Dioxide 32 H (22-29) mmol/L Anion Gap 16 (12-20) BUN 10 (9-16) mg/dL Creatinine 0.78 (0.5-1.4) mg/dL Estim Creat Clear Calc 92.5 Estimated GFR > 60 Random Glucose 90 (60-115) mg/dL Calcium 9.0 D (8.4-10.2) mg/dL Magnesium 1.9 (1.6-2.6) mg/dL Troponin I High Sens (<3.5-35.0) ng/L B-Natriuretic Peptide (<100) pg/mL Lipase 43 (8-78) U/L Urine Color YELLOW Urine Appearance CLEAR Urine pH 6.0 (5.0-8.0) Ur Specific [place] 1.010 (1.005-1.025) Urine Protein NEG (NEG-TRACE) MG/DL Urine Glucose (UA) NEG (NEG) MG/DL Urine Ketones NEG (NEG) MG/DL Urine Blood NEG (NEG) Urine Nitrite NEG (NEG) Ur Leukocyte Esterase 1+ H (NEG) Urine RBC 0 (0) /HPF Urine WBC 15-29 H (0-4) /HPF Urine WBC Clumps NOTED Ur Squamous Epith Cells TRACE /LPF Urine Bacteria NONE /LPF Ur Oval Fat Bodies NOTED (NONE) Urine Opiates Screen (Not Detect) Urine Fentanyl Screen (Not Detect) Ur Barbiturates Screen (Not Detect) Ur Phencyclidine Scrn (Not Detect) Ur Amphetamines Screen (Not Detect) U Benzodiazepines Scrn (Not Detect) Urine Cocaine Screen (Not Detect) U Marijuana (THC) Screen (Not Detect) Ethyl Alcohol 336 H* mg/dL COVID-19 (NELY) Negative (Negative) COVID-19 Clin Com See Note 10/06/21 Range/Units 13:53 WBC (4.8-10.8) X10*3/uL RBC (4.60-5.80) X10*6/uL Hgb (14.0-18.0) g/dl Hct (42.0-52.0) % MCV (80.0-98.0) fL MCH (27.0-33.0) pg MCHC (31.0-36.0) g/dl RDW (11.0-16.0) % Plt Count (160-400) X10*3/uL MPV (9.4-12.4) fL Immature Gran % (Auto) (0.0-0.4) % Neut % (Auto) (45-73) % Lymph % (Auto) (20-40) % [place] % (Auto) (2-11) % Eos % (Auto) (0-4) % Baso % (Auto) (0-2) % Lymph # (Auto) (1.2-4.9) X10*3/uL [place] # (Auto) (0.1-1.2) X10*3/uL Eos # (Auto) (0.0-0.4) X10*3/uL Baso # (Auto) (0.0-0.2) X10*3/uL Abs Immat Gran (auto) (0.00-0.03) X10*3/uL Absolute Neuts (auto) (2.0-8.3) x10*3/uL Absolute Nucleated RBC (0.0-0.012) X10*3/uL Nucleated RBC % (auto) (0.0-0.2) /100WBC PT (10.0-13.1) SEC INR (0.9-1.1) APTT (26.0-36.4) SEC Sodium (135-145) mmol/L Potassium (3.3-5.1) mmol/L Chloride (96-108) mmol/L Carbon Dioxide (22-29) mmol/L Anion Gap (12-20) BUN (9-16) mg/dL Creatinine (0.5-1.4) mg/dL Estim Creat Clear Calc Estimated GFR Random Glucose (60-115) mg/dL Calcium (8.4-10.2) mg/dL Magnesium (1.6-2.6) mg/dL Troponin I High Sens (<3.5-35.0) ng/L B-Natriuretic Peptide (<100) pg/mL Lipase (8-78) U/L Urine Color Urine Appearance Urine pH (5.0-8.0) Ur Specific [place] (1.005-1.025) Urine Protein (NEG-TRACE) MG/DL Urine Glucose (UA) (NEG) MG/DL Urine Ketones (NEG) MG/DL Urine Blood (NEG) Urine Nitrite (NEG) Ur Leukocyte Esterase (NEG) Urine RBC (0) /HPF Urine WBC (0-4) /HPF Urine WBC Clumps Ur Squamous Epith Cells /LPF Urine Bacteria /LPF Ur Oval Fat Bodies (NONE) Urine Opiates Screen Not Detected (Not Detect) Urine Fentanyl Screen Not Detected (Not Detect) Ur Barbiturates Screen Not Detected (Not Detect) Ur Phencyclidine Scrn Not Detected (Not Detect) Ur Amphetamines Screen Not Detected (Not Detect) U Benzodiazepines Scrn POSITIVE H (Not Detect) Urine Cocaine Screen Not Detected (Not Detect) U Marijuana (THC) Screen Not Detected (Not Detect) Ethyl Alcohol mg/dL COVID-19 (NELY) (Negative) COVID-19 Clin Com Discharge Plan Discharge Clinical Impression: Alcohol abuse, Chronic deep vein thrombosis (DVT), Chronic pulmonary embolism, Acute UTI Patient Disposition: Still a Patient Prescriptions: No Action melatonin 3 mg tablet 1 tab PO BEDTIME docusate sodium 100 mg capsule 1 cap PO BID Spiriva Respimat 1.25 mcg/actuation mist 2 puff inhalation DAILY Eliquis 5 mg tablet 5 mg PO BID Qty: 60 0RF albuterol sulfate 90 mcg/actuation HFA aerosol inhaler 2 inh inhalation Q8H PRN (Reason: shortness of breath or wheezing) Qty: 8.5 0RF clonidine HCl 0.1 mg tablet 1 tab PO TID hydroxyzine HCl 50 mg tablet 1 tab PO TID buspirone 10 mg tablet 1 tab PO BID cyclobenzaprine 5 mg tablet 1 tab PO TID PRN (Reason: Muscle Spasm) acamprosate 333 mg tablet,delayed release (DR/EC) 2 tab PO TID duloxetine 30 mg capsule,delayed release(DR/EC) 1 cap PO DAILY
--- NOTE | 2021-10-06 12:29 | PC.NURSE ---
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 skin pwd. ems state he was unsteady on feet. pa states he stopped eliquis over a week ago.
[2021-10-06 13:58] LABS: MANUAL DIFF FLAG NO
[2021-10-06 14:02] LABS: Basophils Absolute Auto 0.1 X10*3/uL (0.0-0.2); Basophils Percent Auto 1.6 % (0-2); Eosinophils Absolute Auto 0.1 X10*3/uL (0.0-0.4); Eosinophils Percent Auto 2.4 % (0-4); Hematocrit 36.4 % (42.0-52.0); Hemoglobin 11.7 g/dl (14.0-18.0); Imm Gran Abs Auto 0.01 X10*3/uL (0.00-0.03); Imm Gran Pct Auto 0.2 % (0.0-0.4); Lymphocytes Absolute Auto 1.6 X10*3/uL (1.2-4.9); Lymphocytes Percent Auto 32.3 % (20-40); Mean Corpuscular HGB Conc 32.1 g/dl (31.0-36.0); Mean Corpuscular Hemoglobin 28.7 pg (27.0-33.0); Mean Corpuscular Volume 89.4 fL (80.0-98.0); Mean Platelet Volume 8.5 fL (9.4-12.4); Monocytes Absolute Auto 0.5 X10*3/uL (0.1-1.2); Monocytes Percent Auto 9.8 % (2-11); Neutrophils Absolute Auto 2.6 x10*3/uL (2.0-8.3); Neutrophils Percent Auto 53.7 % (45-73); Platelet Count 236 X10*3/uL (160-400); Red Blood Count 4.07 X10*6/uL (4.60-5.80); Red Cell Distribution Width 16.1 % (11.0-16.0); White Blood Count 4.9 X10*3/uL (4.8-10.8)
[2021-10-06 14:11] LABS: INTERNATIONAL NORM RATIO 0.9 (0.9-1.1); Prothrombin Time 10.8 SEC (10.0-13.1)
[2021-10-06 14:13] LABS: Appearance Urine CLEAR; Color Urine YELLOW; Glucose Urine UA NEG (NEG); Leukocyte Esterase Urine 1+ (NEG); Nitrite Urine NEG (NEG); UACC Culture Trigger YES; Urine Blood NEG (NEG); Urine Ketones NEG (NEG); Urine Protein NEG (NEG-TRACE)
[2021-10-06 14:15] LABS: COVID-19 Test Negative (Negative); IDNOW Serial# 16C4AD1C
[2021-10-06 14:18] LABS: Amphetamine Screen Urine Not Detected (Not Detect); Barbiturates, Urine Not Detected (Not Detect); Benzodiazepines Screen Urine POSITIVE (Not Detect); Cannabinoid Screen Urine Not Detected (Not Detect); Cocaine Screen Urine Not Detected (Not Detect); Fentanyl, urine Not Detected (Not Detect); Opiate Screen Urine Not Detected (Not Detect); Phencyclidine Screen Urine Not Detected (Not Detect)
[2021-10-06 14:20] LABS: Anion Gap 16 (12-20); Blood Urea Nitrogen 10 mg/dL (9-16); Carbon Dioxide 32 mmol/L (22-29); Chloride 102 mmol/L (96-108); Creatinine Clr Calc Pharmacy 92.5; Estimated Glomerular Filt Rate > 60; Ethanol 336 mg/dL; Glucose Random 90 mg/dL (60-115); Lipase 43 U/L (8-78); Magnesium 1.9 mg/dL (1.6-2.6); Potassium 4.6 mmol/L (3.3-5.1); Sodium 145 mmol/L (135-145)
[2021-10-06 14:22] LABS: B Type Natriuretic Peptide 22 pg/mL (<100); Troponin-I High Sensitivity < 3.5 ng/L (<3.5-35.0)
[2021-10-06 14:25] LABS: Oval Fat Bodies Urine NOTED; Squamous Epithelial Cell Urine TRACE /LPF; WBC Clumps Urine NOTED
[2021-10-06 14:26] LABS: RBC Urine 0 /HPF (0)
[2021-10-06 14:41] VITALS: BP 110/58; PULSE 82; RESP 16; TEMP 36.5; O2SAT 94
[2021-10-06 15:08] LABS: Partial Thromboplastin Time 37.6 SEC (26.0-36.4)
--- NOTE | 2021-10-06 15:31 | MHC.RECOVRN ---
Met with pt to discuss alcohol use. Pt reports 2 pints [employer] daily since 09/28, when pt discharged from [facility]. Pt has had multiple ATS admissions at [facility] and [facility], prefers these facilities. Today, pt is aware that [facility] may not accept pt due to short timeframe in between admissions. [facility] does not have bed availability. Will follow up with [facility] once pt is medically cleared. RN aware.
[2021-10-06] MEDS: iohexoL 350 MG/ML 100 ML INFUS..BTL IV (15:32)
[2021-10-06 17:14] VITALS: BP 157/74; PULSE 84; RESP 16; TEMP 36.8; O2SAT 98
[2021-10-06] MEDS: ondansetron HCL 4 MG/2 ML VIAL IVPUSH (17:22)
[2021-10-06] MEDS: chlordiazePOXIDE HCl 25 MG CAPSULE 50 MG PO (17:22)
[2021-10-06] MEDS: cefTRIAXone sodium 1 GM in 0.9 % Sodium Chloride 50 ML IV (17:22)
[2021-10-06] MEDS: Apixaban 5 MG TABLET PO (17:22)
--- NOTE | 2021-10-06 18:50 | PHA.MEDREC ---
Pharmacy Consult ? Medication Reconciliation Pharmacy has completed the medication reconciliation. spoke with pt. he said he only takes albuterol, tiotropium, eliquis and melatonin. Pt has recent fill history for many other medictions (buspar, clonidine,flexeril,colace,duloxetine, and hydroxyzine) but says he doesn't take them
[2021-10-06 19:17] VITALS: BP 100/65; PULSE 90; RESP 16; TEMP 36.9; O2SAT 98
--- NOTE | 2021-10-06 19:18 | PC.NURSE ---
PATIENT HAD 2 SANDWICH ,2 CAN ALEC SUNDAY AND SOME JELLO
[2021-10-06 20:00] VITALS: BP 124/68; PULSE 98; RESP 16; TEMP 36.6; O2SAT 98
[2021-10-06 22:00] VITALS: BP 120/70; PULSE 84; RESP 16; TEMP 36.6; O2SAT 98
--- NOTE | 2021-10-06 22:06 | MHC.RECOVSUP ---
? Reason for consult:ETOH o? Current location:ED22[facility]? o? Identified substance use concern:? -? Seeking ATS (detox) ?? Intervention: o? ATS bed search started/completed/in process ? Plan: o? Follow up tomorrow? ? Additional information:Met with pt, tried to find bed availability, wasn't successful. Provided pt with [facility] card.
--- NOTE | 2021-10-06 22:56 | PC.NURSE ---
pt resting in bed, no complaints of pain withdrawl sx. continues sleeping at this time.
[2021-10-07] MEDS: Albuterol Sulfate 90 MCG 8 GM INHALER 2 PUFF INHALE (01:36)
[2021-10-07] MEDS: Apixaban 5 MG TABLET PO (06:06)
--- NOTE | 2021-10-07 06:10 | PC.NURSE ---
pt resting in bed, given ice water. resting in hallway bed. calm and cooperative
--- NOTE | 2021-10-07 08:42 | MHC.RECOVRN ---
[facility] has ATS beds available. Referral has been sent, awaiting review.
[2021-10-07 10:09] VITALS: BP 125/68; PULSE 74; RESP 14; TEMP 36.5; O2SAT 95
--- NOTE | 2021-10-07 13:05 | MHC.RECOVRN ---
[facility] declined pt due to chronic medical issues including DVT and recent noncompliance with medication, informed t/w pt would need level 4 ATS. Spoke with Christa from [facility], [facility] declined inpatient due to recently being discharged on 09/28/ recurrence and not currently exhibiting withdrawal symptoms. [facility] offered outpatient services which patient declined. [facility] continues to not have bed availability. Pt aware and requests discharge home.
--- NOTE | 2021-10-07 13:06 | PC.NURSE ---
pt wishing to discharge, provider notified, pt ambulated with a steady gait with cane, pt requesting refill for eliquist provider to be notified.
--- NOTE | 2021-10-07 13:07 | PC.NURSE ---
phone number for Cari, Sowmya Childress & [facility] provided to patient as requested
--- NOTE | 2021-10-07 14:16 | MHC.CM.PN ---
Addendum entered by Yamila Feliciano 10/07/21 14:18: PATIENT'S INSURANCE PLAN ([facility] [place]) [phone] STATES THAT PATIENT IS MANAGED EXTERNALLY AND DOES NOT HAVE ANY SERVICES. Original Note: PATIENT STATES THAT HE CAN CALL HIS OWN PCP AND WILL TRY DR PEREZ AGAIN. IT WAS EXPLAINED THAT BECAUSE PATIENT IS ALERT AND ORIENTED X 4 HE CAN MAKE HIS OWN APPOINTMENTS
--- NOTE | 2021-10-07 14:25 | PC.NURSE ---
pt is agitated and frustrated that his discharge is taking too long, pt ripped out his iv, this nurse has attempted to calm the patient.
--- NOTE | 2021-10-07 14:47 | PC.NURSE ---
patient continued to yell at this nurse about the discharge, this nurse again explained to the patient that we were trying to get everything set up for him for a pcp as well as his prescriptions, patient stated he can do this on his own and wished to immediately leave, this nurse again attempted to tell the patient that he needs to have some patience and we will get him out of here soon, pt stated he was mad that he has been waiting for 3 hours to discharge and he is done waiting and asked this nurse to show him how to leave. patient was a&ox3, ambulated with a steady gait with his cane, pt denied pain/discomfort prior to his departure
--- NOTE | 2021-10-07 14:50 | PC.NURSE ---
provider notified of patient leaving, awaiting for discharge to take patient out of system
== END 2021-10-07 16:03 | disposition left against medical advice (07) ==
PROVIDERS: Physician Assistant; Emergency Provider Emergency Medicine; PCP Internal Medicine
DX: F10.10 Alcohol abuse, uncomplicated (principal); Y90.8 Blood alcohol level of 240 mg/100 ml or more; N39.0 Urinary tract infection, site not specified; I82.513 Chronic embolism and thrombosis of femoral vein, bilateral; I27.82 Chronic pulmonary embolism; Z91.14 Patient's other noncompliance with medication regimen; Z20.822 Contact with and (suspected) exposure to COVID-19; R06.02 Shortness of breath; M79.662 Pain in left lower leg; M79.661 Pain in right lower leg; F17.200 Nicotine dependence, unspecified, uncomplicated; F12.90 Cannabis use, unspecified, uncomplicated
CPT/HCPCS: 71045; 71275; 80048; 80307; 81001; 81003; 82077; 83690; 83735; 83880; 84484; 85025; 85610; 85730; 87086; 87635; 93005; 93970; 96365; 99285; J0696; J2405; Q9967

== ENCOUNTER 2021-12-02 12:38 | Emergency (ER) | payer OTHER, SELFPAY ==
--- NOTE | ~2021-12-02 | XR_ITS ---
EXAMINATION: XR CHEST CLINICAL INFORMATION: Chest pain COMPARISON: Chest radiographs 10/06/2021, 09/09/2021, CTA chest 10/06/2021 TECHNIQUE: Frontal view of the chest was obtained. FINDINGS: No pneumothorax, pleural reaction, or effusion. There is no lobar or segmental airspace consolidation or air bronchograms. Subtle groundglass opacities left suprahilar region in retrospect noted on prior exam is not seen with certainty. The vascularity is normal. The heart is normal in size. The hilar and mediastinal contours and visualized bony structures are unremarkable. XR/XR chest 1V IMPRESSION: Unremarkable examination.
--- NOTE | 2021-12-02 12:42 | ECG_ITS ---
Test Reason : CHEST PAIN Blood Pressure : / mmHG Vent. Rate : 078 BPM Atrial Rate : 078 BPM P-R Int : 136 ms QRS Dur : 136 ms QT Int : 404 ms P-R-T Axes : 061 -72 041 degrees QTc Int : 460 ms Normal sinus rhythm Right bundle branch block Left anterior fascicular block Bifascicular block Abnormal ECG When compared with ECG of 06-OCT-2021 12:43, No significant change was found Referred By: Chanelle Doty Electronically Signed By:RADHA MAIER
[2021-12-02 12:58] VITALS: BP 130/98; BP 136/76; PULSE 80; PULSE 93; RESP 18; TEMP 36.6; O2SAT 93; O2SAT 96; BMI 22.0
--- NOTE | 2021-12-02 13:27 | ED.CHESTPAIN ---
HPI - Chest Pain General Chief Complaint: Chest Pain Stated Complaint: ETOH/CP for 2hours Time Seen by Provider: 12/02/21 12:40 Source: patient and EMS Mode of arrival: EMS Limitations: no limitations History of Present Illness HPI narrative: 61 yo male with history of alcohol abuse and dependence with history of withdrawal seizures in the past, COPD, active smoker, chronic PE's on eliquis, history of neuropathy and recent COVID-19 diagnosis who presents to the ER from home via EMS for evaluation of chest pain and for alcohol detox. He states he is an alcoholic and wants to go to rehab. He reports he drank 6 nips of hard liquor this morning by 9am. He developed some left chest aching about about hour ago, he cannot recall what he was doing when it started. He states he also had left shoulder pain at the time. On arrival to the ER it is now resolved. He denies any nausea, diaphoresis, fever, chills, SOB or abdominal pain. Denies cardiac history. He is a smoker. MD complaint: chest pain and other (etoh detox) Onset (ago): hour(s) Timing of current episode: now resolved Prior episodes: Yes Onset: during rest Pain location: substernal and left chest Pain radiation: left arm Severity: mild Pain scale (0-10): 2 Quality: aching Relieving factors: rest Exacerbating factors: nothing Treatment prior to arrival: none Risk Factors Coronary artery disease risk factors: none Thoracic aortic dissection risk factors: none Related Data Home Medications Medication Instructions Recorded Confirmed melatonin 3 mg tablet 1 tab PO BEDTIME 07/23/21 10/06/21 tiotropium bromide 1.25 2 puff inhalation DAILY 07/23/21 10/06/21 mcg/actuation mist for inhalation (Spiriva Respimat) Previous Rx's Medication Instructions Recorded albuterol sulfate 90 mcg/actuation 2 inh inhalation Q8H PRN shortness 09/09/21 aerosol inhaler of breath or wheezing #8.5 grams apixaban 5 mg tablet (Eliquis) 5 mg PO BID #60 tabs 09/09/21 apixaban 5 mg tablet (Eliquis) 5 mg PO BID #60 tabs 10/07/21 cefuroxime axetil 250 mg tablet 250 mg PO BID #14 tabs 10/07/21 Allergies Allergy/AdvReac Type Severity Reaction Status Date / Time Peanut Butter Allergy Facial Verified 12/02/21 12:58 Swelling raspberry Allergy Facial Verified 12/02/21 12:58 Swelling Review of Systems Review of Systems: Constitutional: No Fever, No Chills ENT/Mouth: No sore throat, No Rhinorrhea, No Swallowing Difficulty Eyes: No Eye Pain, No Swelling, No Redness Cardiovascular: + Chest Pain, No SOB, No Orthopnea, No Edema Respiratory: No Cough, No Sputum, No Wheezing, No dyspnea Gastrointestinal: No Nausea, No Vomiting, No Diarrhea, No abdominal Pain, No Hematochezia, No Melena Genitourinary: No Dysuria, No Urinary Frequency, No Hematuria Musculoskeletal: + joint pain, + Myalgias Skin: No Skin Lesions, No rash Neuro: No Weakness, No Numbness, No Dizziness, No Headache Psych: No Anxiety/Panic, + Depression, No SI Heme/Lymph: No Bruising, No Lymphadenopathy Endocrine: No Polyuria, No Polydipsia [facility] Past Medical History Medical History Alcohol abuse Asthma COPD (chronic obstructive pulmonary disease) DVT (deep venous thrombosis) Neuropathy Subdural hematoma Social History Social History Alcohol intake: current Alcohol intake frequency: 3 or more drinks per day Alcohol type: hard liquor Patient Tobacco Use Status: Former Tobacco user Use of substances other than those prescribed or required for medical reasons: No Substance Use Type: Marijuana Advance Directives: No Advance Directives Information Provided: No Physical Exam Vital Signs: Vital Signs: Last Vital Signs Temp 98.0 F 12/02/21 16:00 Pulse 92 12/02/21 16:00 Resp 18 12/02/21 16:00 BP 138/72 12/02/21 16:00 Pulse Ox 93 12/02/21 16:00 O2 Del Method 12/02/21 16:00 BMI result Body Mass Index 22.0 Appearance: Alert. Oriented X3. No acute distress. Smells of alcohol Eyes: Pupils equal, round and reactive to light. ENT: Pharynx normal. Neck: Normal inspection. Neck supple. CVS: Normal heart rate and rhythm. Pulses normal. Chest wall nontender Respiratory: No respiratory distress. Breath sounds normal. Abdomen: Soft and nontender. +BS x4 Skin: Skin warm and dry. Normal skin color. Normal skin turgor. No rashes. Extremities: No lower extremity edema. No calf tenderness Neuro: Oriented X 3. No motor deficit. No sensory deficit. Nonfocal/. Course Course Course Narrative: 61 yo male with history of ETOH abuse/dependence/withdrawal seizures in the past, COPD, PEs on Eliquis who presents to the ER with left sided chest pain, now resolved as well as alcohol intoxication in hopes of getting placed into detox. Will get EKG and troponin x2 to r/o ACS and medically clear him before getting CARE team/cricket coach involved for placement. He has been compliant with his Eliquis. Denies falls or trauma. Reevaluation(s) Reevaluation #1: COVID positive. His chest pains may be related to this. Not hypoxic or tachycardic. CXR clear. Troponin negative x1, will repeat in 3 hours. He is on Eliquis for chronic PE. ETOH level 290. Reevaluation #2: 2nd troponin is negative. Will place in physician observation at this time. Physician observation started at 18:00. Patient placed in physician observation because patient is awaiting CARE team/data recovery planner evaluation for possible placement to ETOH detox center. COVID positive so may be logistically difficult. At the time observation was started patient's vital signs were stable. Patient is alert and oriented. Neuro exam is non-focal. CV: RRR and lungs are clear. Will continue to monitor. MDM - Chest Pain Medical Records Data Attestation: I reviewed the patient's medical records. Lab Data Attestation: I reviewed the patient's lab results. Result diagrams: 12/02/21 13:32 12/02/21 13:31 Labs: Lab Results 12/02/21 12/02/21 12/02/21 Range/Units 13:31 13:31 13:32 WBC 7.0 (4.8-10.8) X10*3/uL RBC 4.36 L (4.60-5.80) X10*6/uL Hgb 12.3 L (14.0-18.0) g/dl Hct 37.1 L (42.0-52.0) % MCV 85.1 (80.0-98.0) fL MCH 28.2 (27.0-33.0) pg MCHC 33.2 (31.0-36.0) g/dl RDW 14.6 (11.0-16.0) % Plt Count 190 (160-400) X10*3/uL MPV 9.0 L (9.4-12.4) fL Immature Gran % (Auto) 0.1 (0.0-0.4) % Neut % (Auto) 71.3 (45-73) % Lymph % (Auto) 21.3 (20-40) % Wolfe % (Auto) 6.3 (2-11) % Eos % (Auto) 0.1 (0-4) % Baso % (Auto) 0.9 (0-2) % Lymph # (Auto) 1.5 (1.2-4.9) X10*3/uL Wolfe # (Auto) 0.4 (0.1-1.2) X10*3/uL Eos # (Auto) 0.0 (0.0-0.4) X10*3/uL Baso # (Auto) 0.1 (0.0-0.2) X10*3/uL Abs Immat Gran (auto) 0.01 (0.00-0.03) X10*3/uL Absolute Neuts (auto) 5.0 (2.0-8.3) x10*3/uL Absolute Nucleated RBC 0.000 (0.0-0.012) X10*3/uL Nucleated RBC % (auto) 0.0 (0.0-0.2) /100WBC PT (10.0-13.1) SEC INR (0.9-1.1) APTT (26.0-36.4) SEC Sodium 143 (135-145) mmol/L Potassium 4.3 (3.3-5.1) mmol/L Chloride 99 (96-108) mmol/L Carbon Dioxide 27 (22-29) mmol/L Anion Gap 21 H (12-20) BUN 14 (9-16) mg/dL Creatinine 0.79 (0.5-1.4) mg/dL Estim Creat Clear Calc 94.0 Estimated GFR > 60 Random Glucose 86 (60-115) mg/dL Calcium 9.1 (8.4-10.2) mg/dL Magnesium 1.8 (1.6-2.6) mg/dL Total Bilirubin 0.6 (0.0-1.0) mg/dL Direct Bilirubin 0.3 (0.0-0.5) mg/dL AST 30 D (5-37) U/L ALT 14 (0-40) U/L Alkaline Phosphatase 107 D (39-117) U/L Troponin I High Sens (<3.5-35.0) ng/L B-Natriuretic Peptide (<100) pg/mL Total Protein 8.2 H (6.5-8.0) g/dL Albumin 4.7 D (3.5-5.0) g/dL Ethyl Alcohol 290 mg/dL COVID-19 (NELY) Positive A (Negative) COVID-19 Clin Com See Note 12/02/21 12/02/21 12/02/21 Range/Units 13:32 13:32 17:22 WBC (4.8-10.8) X10*3/uL RBC (4.60-5.80) X10*6/uL Hgb (14.0-18.0) g/dl Hct (42.0-52.0) % MCV (80.0-98.0) fL MCH (27.0-33.0) pg MCHC (31.0-36.0) g/dl RDW (11.0-16.0) % Plt Count (160-400) X10*3/uL MPV (9.4-12.4) fL Immature Gran % (Auto) (0.0-0.4) % Neut % (Auto) (45-73) % Lymph % (Auto) (20-40) % Wolfe % (Auto) (2-11) % Eos % (Auto) (0-4) % Baso % (Auto) (0-2) % Lymph # (Auto) (1.2-4.9) X10*3/uL Wolfe # (Auto) (0.1-1.2) X10*3/uL Eos # (Auto) (0.0-0.4) X10*3/uL Baso # (Auto) (0.0-0.2) X10*3/uL Abs Immat Gran (auto) (0.00-0.03) X10*3/uL Absolute Neuts (auto) (2.0-8.3) x10*3/uL Absolute Nucleated RBC (0.0-0.012) X10*3/uL Nucleated RBC % (auto) (0.0-0.2) /100WBC PT 14.0 H (10.0-13.1) SEC INR 1.2 H (0.9-1.1) APTT 41.6 H (26.0-36.4) SEC Sodium (135-145) mmol/L Potassium (3.3-5.1) mmol/L Chloride (96-108) mmol/L Carbon Dioxide (22-29) mmol/L Anion Gap (12-20) BUN (9-16) mg/dL Creatinine (0.5-1.4) mg/dL Estim Creat Clear Calc Estimated GFR Random Glucose (60-115) mg/dL Calcium (8.4-10.2) mg/dL Magnesium (1.6-2.6) mg/dL Total Bilirubin (0.0-1.0) mg/dL Direct Bilirubin (0.0-0.5) mg/dL AST (5-37) U/L ALT (0-40) U/L Alkaline Phosphatase (39-117) U/L Troponin I High Sens < 3.5 < 3.5 (<3.5-35.0) ng/L B-Natriuretic Peptide 17 (<100) pg/mL Total Protein (6.5-8.0) g/dL Albumin (3.5-5.0) g/dL Ethyl Alcohol mg/dL COVID-19 (NELY) (Negative) COVID-19 Clin Com ECG Data ECG #1: Attestation: I personally reviewed and interpreted this ECG as follows: ECG interpretation date: 12/02/21 ECG interpretation time: 17:07 Prior ECG tracings: available for review Interpretation: Normal sinus rhythm, ventricular rate 70 beats per minute, right bundle branch block which is old from prior. No ST segment elevations or depressions. Discharge Plan Discharge Clinical Impression: Alcohol intoxication Patient Disposition: Still a Patient Prescriptions: No Action melatonin 3 mg tablet 1 tab PO BEDTIME Spiriva Respimat 1.25 mcg/actuation mist 2 puff inhalation DAILY Eliquis 5 mg tablet 5 mg PO BID Qty: 60 0RF albuterol sulfate 90 mcg/actuation HFA aerosol inhaler 2 inh inhalation Q8H PRN (Reason: shortness of breath or wheezing) Qty: 8.5 0RF Eliquis 5 mg tablet 5 mg PO BID Qty: 60 0RF cefuroxime axetil 250 mg tablet 250 mg PO BID Qty: 14 0RF
[2021-12-02 13:35] LABS: MANUAL DIFF FLAG NO
--- NOTE | 2021-12-02 13:35 | PC.NURSE ---
labs drawn, covid swab obtained, pt to have ekg performed
[2021-12-02 13:37] LABS: Basophils Absolute Auto 0.1 X10*3/uL (0.0-0.2); Basophils Percent Auto 0.9 % (0-2); Eosinophils Percent Auto 0.1 % (0-4); Hematocrit 37.1 % (42.0-52.0); Hemoglobin 12.3 g/dl (14.0-18.0); Imm Gran Abs Auto 0.01 X10*3/uL (0.00-0.03); Imm Gran Pct Auto 0.1 % (0.0-0.4); Lymphocytes Absolute Auto 1.5 X10*3/uL (1.2-4.9); Lymphocytes Percent Auto 21.3 % (20-40); Mean Corpuscular HGB Conc 33.2 g/dl (31.0-36.0); Mean Corpuscular Hemoglobin 28.2 pg (27.0-33.0); Mean Corpuscular Volume 85.1 fL (80.0-98.0); Monocytes Absolute Auto 0.4 X10*3/uL (0.1-1.2); Monocytes Percent Auto 6.3 % (2-11); Neutrophils Percent Auto 71.3 % (45-73); Platelet Count 190 X10*3/uL (160-400); Red Blood Count 4.36 X10*6/uL (4.60-5.80); Red Cell Distribution Width 14.6 % (11.0-16.0)
[2021-12-02 13:42] LABS: INTERNATIONAL NORM RATIO 1.2 (0.9-1.1)
[2021-12-02 13:45] LABS: Partial Thromboplastin Time 41.6 SEC (26.0-36.4)
[2021-12-02 13:49] LABS: COVID-19 Test Positive (Negative); IDNOW Serial# 16C4AD1C
[2021-12-02 14:04] LABS: Alanine Aminotransferase 14 U/L (0-40); Albumin Level 4.7 g/dL (3.5-5.0); Alkaline Phosphatase 107 U/L (39-117); Anion Gap 21 (12-20); Aspartate Amino Transferase 30 U/L (5-37); Bilirubin Direct 0.3 mg/dL (0.0-0.5); Bilirubin Total 0.6 mg/dL (0.0-1.0); Blood Urea Nitrogen 14 mg/dL (9-16); Calcium 9.1 mg/dL (8.4-10.2); Carbon Dioxide 27 mmol/L (22-29); Chloride 99 mmol/L (96-108); Estimated Glomerular Filt Rate > 60; Ethanol 290 mg/dL; Glucose Random 86 mg/dL (60-115); Magnesium 1.8 mg/dL (1.6-2.6); Potassium 4.3 mmol/L (3.3-5.1); Sodium 143 mmol/L (135-145); Total Protein 8.2 g/dL (6.5-8.0)
[2021-12-02 14:08] LABS: B Type Natriuretic Peptide 17 pg/mL (<100); Troponin-I High Sensitivity < 3.5 ng/L (<3.5-35.0)
[2021-12-02 16:00] VITALS: BP 138/72; PULSE 92; RESP 18; TEMP 36.7; O2SAT 93
[2021-12-02] MEDS: Acetaminophen 325 MG TABLET 975 MG PO (16:25)
[2021-12-02 17:48] LABS: Troponin-I High Sensitivity < 3.5 ng/L (<3.5-35.0)
[2021-12-02 18:03] LABS: Appearance Urine Clear; Color Urine Dark Yellow; Glucose Urine UA Negative (Negative); Leukocyte Esterase Urine Negative (Negative); Nitrite Urine Negative (Negative); Specific Gravity - Urine 1.025 (1.005-1.025); UMIC TRIGGER UACC YES; Urine Blood Negative (Negative); Urine Ketones Trace mg/dL (Negative); Urine Protein 30 (1+) mg/dL (Neg-Trace)
[2021-12-02 18:05] LABS: Bacteria Urine None Seen (None Seen); Hyaline Casts Urine 0-2 /LPF (0-2); RBC Urine 0-2 /HPF (0-2); Squamous Epithelial Cell Urine 0-2 /HPF (0-2); WBC Urine 0-5 /HPF (0-5)
[2021-12-02 18:18] LABS: Amphetamine Screen Urine Not Detected (Not Detect); Barbiturates, Urine Not Detected (Not Detect); Benzodiazepines Screen Urine Not Detected (Not Detect); Cannabinoid Screen Urine Not Detected (Not Detect); Cocaine Screen Urine Not Detected (Not Detect); Fentanyl, urine Not Detected (Not Detect); Opiate Screen Urine Not Detected (Not Detect); Phencyclidine Screen Urine Not Detected (Not Detect)
--- NOTE | 2021-12-02 18:18 | PC.NURSE ---
Pt ambulated with steady gait
== END 2021-12-02 18:22 | disposition home or self-care (01) ==
PROVIDERS: Physician Assistant; Emergency Provider Emergency Medicine; PCP Internal Medicine
DX: R07.89 Other chest pain (principal); R06.02 Shortness of breath; F10.129 Alcohol abuse with intoxication, unspecified; Z20.822 Contact with and (suspected) exposure to COVID-19; Y90.8 Blood alcohol level of 240 mg/100 ml or more; Z87.891 Personal history of nicotine dependence; Z79.899 Other long term (current) drug therapy
CPT/HCPCS: 36415; 71045; 80048; 80076; 80307; 81001; 82077; 83735; 83880; 84484; 85025; 85610; 85730; 87635; 93005; 99283; 99285

== ENCOUNTER 2021-12-02 21:38 | Emergency (ER) | payer OTHER, SELFPAY ==
[2021-12-02 22:02] VITALS: BP 146/80; PULSE 86; RESP 18; TEMP 36.6; O2SAT 96; BMI 22.9
--- NOTE | 2021-12-02 22:04 | PC.NURSE ---
The pt decided after he arrived that he wanted to leave without being seen. He was angry that we could not arrange for him to be admitted to, as well as transport him to, a detox We encouraged him to make phone calls to local detox centers, at which he scoffed. He came out of his room repeatedly, despite us encouraging him to remain in his room since he has Covid. At that time he stated he was leaving, prior to being seen. he ambulated out of the ED independently with his cane with steady gait.
[2021-12-02 22:05] VITALS: BP 127/76; PULSE 73; O2SAT 94
== END 2021-12-02 22:26 | disposition left against medical advice (07) ==
LOC: HO.ED 22:09
PROVIDERS: Emergency Provider Emergency Medicine
DX: F10.19 Alcohol abuse with unspecified alcohol-induced disorder (principal)
CPT/HCPCS: 99281

== ENCOUNTER 2021-12-03 11:32 | Emergency (ER) | payer OTHER, SELFPAY ==
[2021-12-03 12:26] VITALS: BP 124/80; PULSE 97; RESP 18; TEMP 36.6; O2SAT 90; BMI 21.4
== END 2021-12-03 16:45 | disposition left against medical advice (07) ==
PROVIDERS: Emergency Provider Emergency Medicine
DX: U07.1 COVID-19 (principal); F10.129 Alcohol abuse with intoxication, unspecified; Y90.9 Presence of alcohol in blood, level not specified
CPT/HCPCS: 99281

== ENCOUNTER 2021-12-03 21:43 | Emergency (ER) | payer OTHER, SELFPAY ==
[2021-12-03 22:42] VITALS: BP 113/81; PULSE 94; RESP 20; TEMP 37.9; O2SAT 95; BMI 21.4
[2021-12-04 00:16] VITALS: BP 123/72; PULSE 110; RESP 16; TEMP 36.6; O2SAT 98
[2021-12-04 03:14] VITALS: BP 122/70; PULSE 100; RESP 18; TEMP 36.6; O2SAT 98
--- NOTE | 2021-12-04 04:13 | ED_ITS ---
HPI - Weakness General Chief complaint: Weakness Stated complaint: Etoh Time Seen by Provider: 12/04/21 04:00 Source: patient Mode of arrival: ambulatory History of Present Illness HPI Narrative: Patient is calling homeless was seen here yesterday COVID positive comes here as having pain ever in upper back area asking to stay and sleep in the ER does not want to go to detox patient is saturating 100% at room air temperature of 100.2 degrees Related Data Home Medications Medication Instructions Recorded Confirmed melatonin 3 mg tablet 1 tab PO BEDTIME 07/23/21 10/06/21 tiotropium bromide 1.25 2 puff inhalation DAILY 07/23/21 10/06/21 mcg/actuation mist for inhalation (Spiriva Respimat) Previous Rx's Medication Instructions Recorded albuterol sulfate 90 mcg/actuation 2 inh inhalation Q8H PRN shortness 09/09/21 aerosol inhaler of breath or wheezing #8.5 grams apixaban 5 mg tablet (Eliquis) 5 mg PO BID #60 tabs 09/09/21 apixaban 5 mg tablet (Eliquis) 5 mg PO BID #60 tabs 10/07/21 cefuroxime axetil 250 mg tablet 250 mg PO BID #14 tabs 10/07/21 albuterol sulfate 90 mcg/actuation 2 puff inhalation Q4-6H PRN 12/04/21 aerosol inhaler (ProAir HFA) Wheezing #8.5 grams dexamethasone 6 mg tablet 6 mg PO DAILY #7 tabs 12/04/21 (Decadron) Allergies Allergy/AdvReac Type Severity Reaction Status Date / Time Peanut Butter Allergy Facial Verified 12/02/21 12:58 Swelling raspberry Allergy Facial Verified 12/02/21 12:58 Swelling Review of Systems Review of Systems: Yes all other systems are reviewed and are negative [facility] Past Medical History Medical History Alcohol abuse Asthma COPD (chronic obstructive pulmonary disease) DVT (deep venous thrombosis) Neuropathy Subdural hematoma Social History Social History Alcohol intake: current Alcohol intake frequency: 3 or more drinks per day Alcohol type: hard liquor Patient Tobacco Use Status: Former Tobacco user Substance Use Type: Marijuana Advance Directives: No Physical Exam Vital Signs: Vital Signs: Last Vital Signs Temp 97.8 F 12/04/21 03:14 Pulse 100 12/04/21 03:14 Resp 18 12/04/21 03:14 BP 122/70 12/04/21 03:14 Pulse Ox 98 12/04/21 03:14 O2 Del Method 12/04/21 03:14 BMI result Body Mass Index 21.4 Appearance: Alert. Oriented X3. No acute distress. ENT: Pharynx normal. Oral Mucosa moist Neck: Normal inspection. Neck supple. CVS: Normal heart rate and rhythm. Pulses normal. Respiratory: No respiratory distress. Equal air entry bilateral, no wheezing/rales/rhonchi prolonged expiration Abdomen soft nontender Skin: Skin warm and dry. Normal skin color. Normal skin turgor. Extremities: No lower extremity edema. Neuro: Oriented X 3. MDM - Weakness MDM Narrative Medical decision making narrative: Patient x-ray negative for any infiltrate done yesterday patient advised to con tinue his albuterol inhaler will give him Decadron advised to follow-up with PCP, patient is on Eliquis for atrial fibrillation Discharge Plan Discharge Clinical Impression: COVID-19 Patient Disposition: Home, Self-Care Instructions: COVID-19 (Coronavirus Disease 2019) (ED) Additional Instructions: Tylenol for pain Continue your other medications and inhaler Report to ER if increased shortness of breath Prescriptions: New dexamethasone [Decadron] 6 mg tablet 6 mg PO DAILY Qty: 7 0RF albuterol sulfate [ProAir HFA] 90 mcg/actuation HFA aerosol inhaler 2 puff inhalation Q4-6H PRN (Reason: Wheezing) Qty: 8.5 0RF No Action melatonin 3 mg tablet 1 tab PO BEDTIME Spiriva Respimat 1.25 mcg/actuation mist 2 puff inhalation DAILY Eliquis 5 mg tablet 5 mg PO BID Qty: 60 0RF albuterol sulfate 90 mcg/actuation HFA aerosol inhaler 2 inh inhalation Q8H PRN (Reason: shortness of breath or wheezing) Qty: 8.5 0RF Eliquis 5 mg tablet 5 mg PO BID Qty: 60 0RF cefuroxime axetil 250 mg tablet 250 mg PO BID Qty: 14 0RF Interventions: ED Discharge Assessment Last Done: 12/04/21 04:29 Discharge Date/Time: 12/04/21 04:29
[2021-12-04] MEDS: Acetaminophen 325 MG TABLET 650 MG PO (04:24)
[2021-12-04] MEDS: dexAMETHasone 6 MG TABLET PO (04:24)
--- NOTE | 2021-12-04 04:28 | PC.NURSE ---
Pt aox3. Discharge instruction provided. Pt verbalizes understanding.
== END 2021-12-04 04:29 | disposition home or self-care (01) ==
PROVIDERS: Emergency Provider Internal Medicine; PCP Internal Medicine
DX: U07.1 COVID-19 (principal); M54.6 Pain in thoracic spine; F17.200 Nicotine dependence, unspecified, uncomplicated; F12.90 Cannabis use, unspecified, uncomplicated; F10.10 Alcohol abuse, uncomplicated; Y90.9 Presence of alcohol in blood, level not specified; Z86.718 Personal history of other venous thrombosis and embolism; Z79.01 Long term (current) use of anticoagulants
CPT/HCPCS: 99283; 99284; J8540

== ENCOUNTER 2021-12-05 01:49 | Emergency (ER) | payer OTHER, SELFPAY ==
[2021-12-05 02:12] VITALS: BP 130/73; BP 136/71; PULSE 100; PULSE 90; RESP 18; TEMP 36.6; O2SAT 92; O2SAT 94; BMI 22.0
[2021-12-05 02:20] VITALS: BP 136/71; PULSE 90; RESP 18; TEMP 36.6; O2SAT 95
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
--- NOTE | 2021-12-05 02:24 | PC.NURSE ---
Pt. denies SI/HI to this RN.
[2021-12-05 03:01] LABS: COVID-19 Test Negative (Negative)
--- NOTE | 2021-12-05 08:07 | ED.ALCOHOL ---
HPI - Alcohol General Chief Complaint: ETOH/Substance Use Stated Complaint: ETOH Time Seen by Provider: 12/05/21 03:06 Source: patient Mode of arrival: EMS Limitations: no limitations History of Present Illness HPI narrative: Patient alcoholic was COVID positive been here 2 times in last 48 hours comes here again as does any place to sleep and want to rest overnight also asking for rehab but really not interested in going to rehab at this time Related Data Home Medications Medication Instructions Recorded Confirmed melatonin 3 mg tablet 1 tab PO BEDTIME 07/23/21 10/06/21 tiotropium bromide 1.25 2 puff inhalation DAILY 07/23/21 10/06/21 mcg/actuation mist for inhalation (Spiriva Respimat) Previous Rx's Medication Instructions Recorded albuterol sulfate 90 mcg/actuation 2 inh inhalation Q8H PRN shortness 09/09/21 aerosol inhaler of breath or wheezing #8.5 grams apixaban 5 mg tablet (Eliquis) 5 mg PO BID #60 tabs 09/09/21 apixaban 5 mg tablet (Eliquis) 5 mg PO BID #60 tabs 10/07/21 cefuroxime axetil 250 mg tablet 250 mg PO BID #14 tabs 10/07/21 albuterol sulfate 90 mcg/actuation 2 puff inhalation Q4-6H PRN 12/04/21 aerosol inhaler (ProAir HFA) Wheezing #8.5 grams dexamethasone 6 mg tablet 6 mg PO DAILY #7 tabs 12/04/21 (Decadron) Allergies Allergy/AdvReac Type Severity Reaction Status Date / Time Peanut Butter Allergy Facial Verified 12/02/21 12:58 Swelling raspberry Allergy Facial Verified 12/02/21 12:58 Swelling Review of Systems Review of Systems: Yes all other systems are reviewed and are negative PMF[facility] Past Medical History Medical History Alcohol abuse Asthma COPD (chronic obstructive pulmonary disease) DVT (deep venous thrombosis) Neuropathy Subdural hematoma Social History Social History Alcohol intake: current Alcohol intake frequency: 3 or more drinks per day Alcohol type: hard liquor Patient Tobacco Use Status: Current everyday Tobacco user Use of substances other than those prescribed or required for medical reasons: Yes Substance Use Type: Marijuana Substance Use Frequency: Chronic Longstanding Advance Directives: No Physical Exam ED Vital Signs: Vital Signs - 24 hr 12/05/21 02:12 12/05/21 02:20 Temperature 97.8 F 97.8 F Pulse Rate 90 90 Respiratory Rate 18 18 Blood Pressure 136/71 136/71 Pulse Oximetry 92 95 Oxygen Delivery Method Room Air Room Air BMI result Body Mass Index 22.0 Appearance: Alert. Oriented X3. No acute distress. Eyes: PERRLA, No Nystagmus ENT: Pharynx normal. Oral Mucosa moist Neck: Normal inspection. Neck supple. CVS: Normal heart rate and rhythm. Pulses normal. Respiratory: No respiratory distress. Equal air entry bilateral, no wheezing/rales/rhonchi Abdomen: Soft and nontender. Bowel sounds are present, no mass palpable, no CVA tenderness Skin: Skin warm and dry. Normal skin color. Normal skin turgor. Extremities: No lower extremity edema. No calf tenderness Neuro: Oriented X 3. No motor deficit. No sensory deficit.No cerebellar signs , cranial nerves II-XII intact MDM - Alcohol MDM Narrative Medical decision making narrative: Patient with alcohol abuse but does not want to go to rehab states he does not want to call phone numbers patient was given the list of the detox places but refused to call will discharge patient home advised to follow up as outpatient Lab Data Attestation: I reviewed the patient's lab results. Labs: Lab Results 12/05/21 Range/Units 02:37 COVID-19 (NELY) Negative (Negative) COVID-19 Clin Com See Note Discharge Plan Discharge Clinical Impression: Alcohol abuse, COVID-19 Patient Disposition: Home, Self-Care Instructions: Abuse of Alcohol (ED), COVID-19 (Coronavirus Disease 2019) (ED) Additional Instructions: Stop drinking alcohol and follow up with detox Your COVID test today is negative Follow-up with PCP if any concerns Prescriptions: No Action melatonin 3 mg tablet 1 tab PO BEDTIME Spiriva Respimat 1.25 mcg/actuation mist 2 puff inhalation DAILY Eliquis 5 mg tablet 5 mg PO BID Qty: 60 0RF albuterol sulfate 90 mcg/actuation HFA aerosol inhaler 2 inh inhalation Q8H PRN (Reason: shortness of breath or wheezing) Qty: 8.5 0RF dexamethasone [Decadron] 6 mg tablet 6 mg PO DAILY Qty: 7 0RF albuterol sulfate [ProAir HFA] 90 mcg/actuation HFA aerosol inhaler 2 puff inhalation Q4-6H PRN (Reason: Wheezing) Qty: 8.5 0RF Eliquis 5 mg tablet 5 mg PO BID Qty: 60 0RF cefuroxime axetil 250 mg tablet 250 mg PO BID Qty: 14 0RF Interventions: ED Discharge Assessment Last Done: 12/05/21 03:14 Discharge Date/Time: 12/05/21 03:17
== END 2021-12-05 03:17 | disposition home or self-care (01) ==
PROVIDERS: Emergency Provider Internal Medicine
DX: U07.1 COVID-19 (principal); F10.10 Alcohol abuse, uncomplicated; Y90.9 Presence of alcohol in blood, level not specified; F17.200 Nicotine dependence, unspecified, uncomplicated; Z79.899 Other long term (current) drug therapy; Z71.6 Tobacco abuse counseling
CPT/HCPCS: 87635; 99283; 99284

== ENCOUNTER 2021-12-29 16:15 | Emergency (ER) | payer OTHER, SELFPAY ==
--- NOTE | 2021-12-29 | ECG_ITS ---
Test Reason : etoh withdrawl/nausea Blood Pressure : / mmHG Vent. Rate : 117 BPM Atrial Rate : 117 BPM P-R Int : 160 ms QRS Dur : 124 ms QT Int : 346 ms P-R-T Axes : 087 -85 059 degrees QTc Int : 482 ms Sinus tachycardia Right atrial enlargement Right bundle branch block Left anterior fascicular block Bifascicular block Abnormal ECG When compared with ECG of 02-DEC-2021 13:38, Vent. rate has increased BY 39 BPM Referred By: Generic ED Physician Electronically Signed By:ROJELIO PRAKASH MD
[2021-12-29 16:23] VITALS: BP 148/72; PULSE 112; O2SAT 97
[2021-12-29 17:32] VITALS: BP 130/79; PULSE 124; RESP 18; TEMP 37; O2SAT 95; BMI 21.4
[2021-12-29] MEDS: Ondansetron ODT 4 MG TAB.RAPDIS TRANSLINGU (17:38)
[2021-12-29 18:14] LABS: Basophils Percent Auto 0.4 % (0-2); Hemoglobin 12.4 g/dl (14.0-18.0); Imm Gran Abs Auto 0.01 X10*3/uL (0.00-0.03); Imm Gran Pct Auto 0.2 % (0.0-0.4); PLT CLUMP 1; SCAN SMEAR FLAG 1
[2021-12-29 18:16] LABS: Hematocrit 37.3 % (42.0-52.0); Lymphocytes Absolute Auto 0.5 X10*3/uL (1.2-4.9); Lymphocytes Percent Auto 10.9 % (20-40); Mean Corpuscular HGB Conc 33.2 g/dl (31.0-36.0); Mean Corpuscular Hemoglobin 27.7 pg (27.0-33.0); Mean Corpuscular Volume 83.4 fL (80.0-98.0); Mean Platelet Volume 10.2 fL (9.4-12.4); Monocytes Absolute Auto 0.4 X10*3/uL (0.1-1.2); Monocytes Percent Auto 7.7 % (2-11); Neutrophils Absolute Auto 3.8 x10*3/uL (2.0-8.3); Neutrophils Percent Auto 80.8 % (45-73); Red Blood Count 4.47 X10*6/uL (4.60-5.80); Red Cell Distribution Width 15.9 % (11.0-16.0)
[2021-12-29 18:19] LABS: MANUAL DIFF FLAG NO; Platelet Count 119 X10*3/uL (160-400); White Blood Count 4.7 X10*3/uL (4.8-10.8)
[2021-12-29 18:41] LABS: Anion Gap 21 (12-20); Blood Urea Nitrogen 13 mg/dL (9-16); Calcium 9.4 mg/dL (8.4-10.2); Carbon Dioxide 27 mmol/L (22-29); Chloride 92 mmol/L (96-108); Creatinine Clr Calc Pharmacy 91.3; Estimated Glomerular Filt Rate > 60; Ethanol < 10 mg/dL; Glucose Random 123 mg/dL (60-115); Potassium 3.5 mmol/L (3.3-5.1); Sodium 136 mmol/L (135-145)
== END 2021-12-29 22:10 | disposition left against medical advice (07) ==
LOC: HO.ED 22:05
PROVIDERS: Emergency Provider Emergency Medicine
DX: F10.239 Alcohol dependence with withdrawal, unspecified (principal); Y90.9 Presence of alcohol in blood, level not specified; Z71.41 Alcohol abuse counseling and surveillance of alcoholic; Z79.899 Other long term (current) drug therapy
CPT/HCPCS: 36415; 80048; 82077; 85025; 93005; 99283

== ENCOUNTER 2022-02-02 09:22 | Emergency (ER) | payer OTHER, SELFPAY ==
[2022-02-02 09:33] VITALS: BP 114/68; BP 132/85; PULSE 90; PULSE 94; RESP 18; TEMP 36.6; O2SAT 94; O2SAT 96; BMI 20.7
--- NOTE | 2022-02-02 09:53 | PC.NURSE ---
patient a/ox3 . paigerla . heart rate regular at 95 beats per minute . breathing even and unlabored , lungs diminished . crackles noted in lower lobes . patient has non productive chronic cough . patient has history of COPD and smoking cigarettes . skin is pink warm and dry . abdomen is soft and positive for bowel sounds in all four quadrants . patient is weepy and reports consuming a pint of southern comfort this Am , request detox after getting his difficulty breathing under control . 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 IV placed in left A.C . patient aware of plan of care .
--- NOTE | 2022-02-02 10:13 | ECG_ITS ---
Test Reason : CHEST PAIN Blood Pressure : / mmHG Vent. Rate : 088 BPM Atrial Rate : 088 BPM P-R Int : 140 ms QRS Dur : 126 ms QT Int : 390 ms P-R-T Axes : 079 -72 048 degrees QTc Int : 471 ms Normal sinus rhythm Right bundle branch block Left anterior fascicular block Bifascicular block Abnormal ECG When compared with ECG of 29-DEC-2021 17:43, Vent. rate has decreased Referred By: Shiraz Cobb Electronically Signed By:WAYNE AVILEZ MD
--- NOTE | 2022-02-02 10:28 | ED.GENADULT ---
HPI - General Adult General Chief complaint: General Medical Stated complaint: ETOH INTOX Time Seen by Provider: 02/02/22 09:56 Source: patient and EMS Mode of arrival: EMS Limitations: no limitations History of Present Illness HPI narrative: 61-year-old male with past medical history of alcohol abuse presents to the emergency department complaining of alcohol abuse. The patient desires to stop drinking. He has been an alcoholic for approximately 40 years. He also complains of some left-sided chest pain which started just after arrival here in the ER. It is mild, with no other associated symptoms. Related Data Home Medications Medication Instructions Recorded Confirmed melatonin 3 mg tablet 1 tab PO BEDTIME 07/23/21 10/06/21 tiotropium bromide 1.25 2 puff inhalation DAILY 07/23/21 10/06/21 mcg/actuation mist for inhalation (Spiriva Respimat) Previous Rx's Medication Instructions Recorded albuterol sulfate 90 mcg/actuation 2 inh inhalation Q8H PRN shortness 09/09/21 aerosol inhaler of breath or wheezing #8.5 grams apixaban 5 mg tablet (Eliquis) 5 mg PO BID #60 tabs 09/09/21 apixaban 5 mg tablet (Eliquis) 5 mg PO BID #60 tabs 10/07/21 cefuroxime axetil 250 mg tablet 250 mg PO BID #14 tabs 10/07/21 albuterol sulfate 90 mcg/actuation 2 puff inhalation Q4-6H PRN 12/04/21 aerosol inhaler (ProAir HFA) Wheezing #8.5 grams dexamethasone 6 mg tablet 6 mg PO DAILY #7 tabs 12/04/21 (Decadron) Allergies Allergy/AdvReac Type Severity Reaction Status Date / Time Peanut Butter Allergy Facial Verified 12/29/21 17:26 Swelling raspberry Allergy Facial Verified 12/29/21 17:26 Swelling Review of Systems Review of Systems: Constitutional: Denies chills and Denies fever(s) Eyes: Denies blurry vision and Denies diplopia ENT: Denies dizziness, Denies nasal congestion and Denies sore throat Cardiovascular: Denies syncope and Denies rapid heart rate Respiratory: Denies cough and Denies wheezing Gastrointestinal: Denies diarrhea, Denies nausea and Denies vomiting Genitourinary: No dysuria, frequency or urgency. Musculoskeletal: Denies back pain and Denies myalgias Neuro: Denies dizziness and Denies syncope Allergic/Immunologic: Denies wheezing, rash Neurologic: Denies Sensory deficit (Neuro) [facility] Past Medical History Medical History Alcohol abuse Asthma COPD (chronic obstructive pulmonary disease) DVT (deep venous thrombosis) Neuropathy Subdural hematoma Social History Social History Alcohol intake: current Alcohol intake frequency: 3 or more drinks per day Alcohol type: hard liquor Patient Tobacco Use Status: Current everyday Tobacco user Smoked in Last 30 Days: Yes Substance Use Type: Marijuana Advance Directives: No Advance Directives Information Provided: No Physical Exam ED Vital Signs: Vital Signs - 24 hr 02/02/22 09:33 02/02/22 12:25 02/02/22 14:02 Temperature 97.8 F 97.0 F 97.8 F Pulse Rate 94 87 96 Respiratory Rate 18 18 16 Blood Pressure 114/68 122/78 124/66 Pulse Oximetry 94 96 Oxygen Delivery Method Room Air Room Air BMI result Body Mass Index 20.7 Vital signs reviewed and are normal Const General: cooperative, comfortable, no acute distress and poor hygiene Nutritional Appearance: underweight Orientation/consciousness: patient oriented x3 Limitations: no limitations HENMT Head: Yes normal to inspection, Yes normocephalic and Yes atraumatic Ears: external ears normal General nose exam: Normal external nose present Face and sinus: Yes normal facial exam Eyes Sclerae: sclerae normal Corneas: corneas normal Pupils: Equal, round and reactive pupils present EOM: EOMs intact bilaterally Neck Neck: Yes normal visual inspection and Yes full ROM Chest Chest palpation & inspection: normal inspection of the chest and no tenderness Resp Effort & Inspection: normal respiratory effort and no cough Auscultation: clear to auscultation bilaterally Cardio Rate: regular rate Rhythm: regular rhythm GI Inspection: Yes normal to inspection Palpation (GI): nontender Back/Spine/Pelvis Cervical Spine: normal cervical lordosis and cervical ROM normal Skin General skin exam: no rashes or lesions noted, no mottling and no pallor Neuro General: patient oriented x3 and CN's II-XI intact bilaterally Cranial nerves: Yes Equal, round and reactive pupils present Gait exam (Neuro): Normal gait present Motor exam (neuro): 5/5 motor strength present throughout Sensory Exam: No Sensory deficit (Neuro) Medical Decision Making Medical Decision Making MDM Narrative: Patient was seen in the emergency department for alcohol intoxication. Patient is medically stable for transfer to a detox facility. Was seen by the assistance specialist here in the ED and arrangements were made for transfer to detox. Discharge Plan Discharge Clinical Impression: Alcohol abuse Patient Disposition: Xfer Other Transfer Details: Going to detox Instructions: Abuse of Alcohol (ED) Prescriptions: No Action melatonin 3 mg tablet 1 tab PO BEDTIME Spiriva Respimat 1.25 mcg/actuation mist 2 puff inhalation DAILY Eliquis 5 mg tablet 5 mg PO BID Qty: 60 0RF albuterol sulfate 90 mcg/actuation HFA aerosol inhaler 2 inh inhalation Q8H PRN (Reason: shortness of breath or wheezing) Qty: 8.5 0RF dexamethasone [Decadron] 6 mg tablet 6 mg PO DAILY Qty: 7 0RF albuterol sulfate [ProAir HFA] 90 mcg/actuation HFA aerosol inhaler 2 puff inhalation Q4-6H PRN (Reason: Wheezing) Qty: 8.5 0RF Eliquis 5 mg tablet 5 mg PO BID Qty: 60 0RF cefuroxime axetil 250 mg tablet 250 mg PO BID Qty: 14 0RF
--- NOTE | 2022-02-02 11:10 | MHC.RECOVRN ---
Met with pt in ED9 to discuss alcohol use. Pt sitting in bed, eyes closed but wakes to voice. Does not appear to be experiencing withdrawal at this time. Pt reports drinking 2 pints of [employer] daily. Pt recently at [facility], d/c on 01/27. Pt interested in ATS, made aware [facility] availability. Referral will be sent and reviewed once medically cleared. RN notified.
[2022-02-02 12:25] VITALS: BP 122/78; PULSE 87; RESP 18; TEMP 36.1; O2SAT 96
--- NOTE | 2022-02-02 13:01 | MHC.RECOVRN ---
Pt currently on phone with [facility] updating information in anticipation of med clearance.
[2022-02-02 13:06] LABS: MANUAL DIFF FLAG NO
[2022-02-02 13:10] LABS: Basophils Absolute Auto 0.1 X10*3/uL (0.0-0.2); Basophils Percent Auto 1.3 % (0-2); Eosinophils Absolute Auto 0.1 X10*3/uL (0.0-0.4); Eosinophils Percent Auto 2.5 % (0-4); Hematocrit 36.7 % (42.0-52.0); Hemoglobin 11.9 g/dl (14.0-18.0); Imm Gran Abs Auto 0.02 X10*3/uL (0.00-0.03); Imm Gran Pct Auto 0.4 % (0.0-0.4); Lymphocytes Absolute Auto 1.7 X10*3/uL (1.2-4.9); Lymphocytes Percent Auto 35.9 % (20-40); Mean Corpuscular HGB Conc 32.4 g/dl (31.0-36.0); Mean Corpuscular Hemoglobin 28.1 pg (27.0-33.0); Mean Corpuscular Volume 86.8 fL (80.0-98.0); Mean Platelet Volume 8.8 fL (9.4-12.4); Monocytes Absolute Auto 0.4 X10*3/uL (0.1-1.2); Monocytes Percent Auto 8.6 % (2-11); Neutrophils Absolute Auto 2.5 x10*3/uL (2.0-8.3); Neutrophils Percent Auto 51.3 % (45-73); Platelet Count 299 X10*3/uL (160-400); Red Blood Count 4.23 X10*6/uL (4.60-5.80); Red Cell Distribution Width 16.3 % (11.0-16.0); White Blood Count 4.8 X10*3/uL (4.8-10.8)
[2022-02-02 13:32] LABS: Ethanol 185 mg/dL
[2022-02-02 13:35] LABS: Anion Gap 19 (12-20); Blood Urea Nitrogen 11 mg/dL (9-16); Calcium 9.3 mg/dL (8.4-10.2); Carbon Dioxide 28 mmol/L (22-29); Chloride 103 mmol/L (96-108); Creatinine Clr Calc Pharmacy 98.5; Estimated Glomerular Filt Rate > 60; Glucose Random 86 mg/dL (60-115); Potassium 4.7 mmol/L (3.3-5.1); Sodium 145 mmol/L (135-145)
[2022-02-02 13:42] LABS: Troponin-I High Sensitivity < 3.5 ng/L (<3.5-35.0)
[2022-02-02 14:02] VITALS: BP 124/66; PULSE 96; RESP 16; TEMP 36.6
[2022-02-02 15:18] LABS: COVID-19 Test Negative (Negative); IDNOW Serial# 55D5AD1C
--- NOTE | 2022-02-02 15:51 | PC.NURSE ---
patient a/ox4 . went over discharge instructions as ordered by provider . Carol from Care team has set up placement at [facility] and a ride . patient in waiting room awaiting ride . no questions at this time .
--- NOTE | 2022-02-02 17:42 | MHC.CARE ---
Pt missed initial lyft ride due to being at the wrong package pick up location. Lyft requested again several times without success. [facility] ordered an uber to package pick up pt, however another person got into the pt's uber. Unable to be admitted to the facility tonight. Pt will be transported home and instructed to call [facility] in the AM re: admission tomorrow.
== END 2022-02-02 15:54 | disposition other institution (70) ==
PROVIDERS: Emergency Provider Emergency Medicine; PCP Internal Medicine
DX: F10.129 Alcohol abuse with intoxication, unspecified (principal); J44.9 Chronic obstructive pulmonary disease, unspecified; Y90.9 Presence of alcohol in blood, level not specified; F17.210 Nicotine dependence, cigarettes, uncomplicated; Z20.822 Contact with and (suspected) exposure to COVID-19; Z71.6 Tobacco abuse counseling; Z79.899 Other long term (current) drug therapy; Z79.01 Long term (current) use of anticoagulants
CPT/HCPCS: 36415; 80048; 82077; 84484; 85025; 87635; 93005; 99284

== ENCOUNTER 2022-02-05 17:39 | Inpatient (IN) | payer OTHER, SELFPAY ==
--- NOTE | ~2022-02-05 | XR_ITS ---
EXAMINATION: PORTABLE CHEST 1 VIEW CLINICAL INFORMATION: sob, wheezing . COMPARISON: 02/05/2022. TECHNIQUE: Portable frontal view of the chest was obtained. FINDINGS: The lungs are well expanded. No focal infiltrate, effusion, edema, or pneumothorax. Cardiac and mediastinal silhouettes are within normal limits for technique. No acute bony abnormality seen. XR/XR chest 1V IMPRESSION: No evidence of acute disease.
--- NOTE | ~2022-02-05 | CT_ITS ---
EXAMINATION: CT ABDOMEN AND PELVIS WITH CONTRAST CLINICAL INFORMATION: Abdominal pain. COMPARISON: CT abdomen pelvis 08/10/2021. TECHNIQUE: Multidetector volumetric images were obtained from the superior aspect of the liver through the pubic symphysis following administration 85 mL of Omnipaque 350 intravenous contrast. Sagittal and coronal reformatted images were obtained on the technologist's workstation. Oral contrast: No This CT examination was performed using dose optimization techniques as appropriate, variously including the following: *Automated exposure control *Adjustment of mA and/or kV according to patient size (this includes techniques or standardized protocols for targeted exams where dose is matched to indication/reason for exam; i.e. extremities or head) *Use of iterative reconstruction technique DLP: 456 mGy-cm FINDINGS: LUNG BASES: The visualized lung bases are unremarkable. LIVER, GALLBLADDER, AND BILIARY TREE: The liver is normal in size, shape, and attenuation. No focal hepatic lesion or biliary ductal dilatation is present. Densely calcified gallstones are noted within the gallbladder lumen. No biliary duct dilatation. PANCREAS: Unremarkable. SPLEEN: Unremarkable. ADRENAL GLANDS: Unremarkable. KIDNEYS AND URETERS: Marked right renal atrophy. Mild diffuse hypertrophy of the left kidney. No left-sided hydronephrosis or perinephric inflammatory changes. BLADDER: Decompressed. GASTROINTESTINAL TRACT: Mild colonic diverticulosis. Normal appearance of the appendix. Normal appearance of the terminal ileum. No free intraperitoneal fluid or gas collections. ABDOMINAL WALL: No significant hernia is appreciated. LYMPH NODES: Normal. VASCULAR: Moderate scattered calcific atherosclerosis. And inferior vena cava filter is noted with tines extending outside the margin of the inferior vena cava. The terminus of the inferior vena cava is inferior to the left renal vein. PELVIC VISCERA: Normal size of the prostate. OSSEOUS STRUCTURES: Mild anterior wedge deformity of the T12 vertebral body unchanged compared with 08/10/2021. CT/CT abdomen pelvis w IV con IMPRESSION: 1. No acute abnormalities identified. 2. Cholelithiasis. 3. Marked right renal atrophy unchanged compared with 08/10/2021. 4. Mild colonic diverticulosis. No evidence of acute diverticulitis. 5. Inferior vena cava filter in situ.
--- NOTE | 2022-02-05 18:15 | ED_ITS ---
HPI - SOB/Dyspnea General Chief Complaint: ETOH/Substance Use Stated Complaint: difficulty breathing and etoh Time Seen by Provider: 02/05/22 18:15 Source: patient and EMS Mode of arrival: EMS Limitations: no limitations History of Present Illness HPI Narrative: 61-year-old male presents via EMS for shortness of breath, and alcohol withdrawal symptoms. Patient states that he has been smoking a lot of cigarettes, tried to detox from alcohol for 4 days, stated the withdrawal symptoms were so severe that he needed drink alcohol today. He does report recently being diagnosed with bronchitis. He does not recall vomiting, and does not believe that he has aspirated. He does not report fevers, chills, chest pain or pressure, palpitations, weakness or chills. Does report having diarrhea on a daily basis. MD elicited complaint: shortness of breath Onset (ago): day(s) Timing: constant Severity: moderate Exacerbating factors: smoke Relieving factors: nothing Known history of: other (Alcoholism) Related Data Home Medications Medication Instructions Recorded Confirmed melatonin 3 mg tablet 1 tab PO BEDTIME 07/23/21 10/06/21 tiotropium bromide 1.25 2 puff inhalation DAILY 07/23/21 10/06/21 mcg/actuation mist for inhalation (Spiriva Respimat) Previous Rx's Medication Instructions Recorded albuterol sulfate 90 mcg/actuation 2 inh inhalation Q8H PRN shortness 09/09/21 aerosol inhaler of breath or wheezing #8.5 grams apixaban 5 mg tablet (Eliquis) 5 mg PO BID #60 tabs 09/09/21 apixaban 5 mg tablet (Eliquis) 5 mg PO BID #60 tabs 10/07/21 cefuroxime axetil 250 mg tablet 250 mg PO BID #14 tabs 10/07/21 albuterol sulfate 90 mcg/actuation 2 puff inhalation Q4-6H PRN 12/04/21 aerosol inhaler (ProAir HFA) Wheezing #8.5 grams dexamethasone 6 mg tablet 6 mg PO DAILY #7 tabs 12/04/21 (Decadron) Allergies Allergy/AdvReac Type Severity Reaction Status Date / Time Peanut Butter Allergy Facial Verified 12/29/21 17:26 Swelling raspberry Allergy Facial Verified 12/29/21 17:26 Swelling PMFSH Past Medical History Attestation statement: The following information was validated with the patient. Source: old records reviewed Medical History Alcohol abuse Asthma COPD (chronic obstructive pulmonary disease) DVT (deep venous thrombosis) Neuropathy Subdural hematoma Social History Social History Alcohol intake: current Alcohol intake frequency: 3 or more drinks per day Alcohol type: hard liquor Patient Tobacco Use Status: Current everyday Tobacco user Substance Use Type: Marijuana Advance Directives: No Advance Directives Information Provided: No Physical Exam Vital Signs: Vital Signs: Last Vital Signs Temp 97.2 F 02/05/22 22:00 Pulse 100 02/05/22 22:00 Resp 16 02/05/22 22:00 BP 117/75 02/05/22 22:00 Pulse Ox 98 02/05/22 22:00 O2 Del Method 02/05/22 22:00 BMI result Body Mass Index 20.7 Course Course Course Narrative: 61-year-old male presents via EMS for EtOH withdrawal symptoms, and shortness of breath. States that he has been trying to withdraw from alcohol for 4 days on his own however his symptoms were so bad that he started drinking. He drinks 2 pt of [employer]fort daily. He reports diarrhea on a daily basis, reports poor p.o. intake. He does have shortness of breath which started after smoking multiple cigarettes. He was recently diagnosed with bronchitis. Patient is requesting detox at this time. He did present on 02/02/2022 with alcohol intoxication but did declined detox at that time. Will order labs, breathing treatment, chest x-ray, EKG. Patient does have a significant history of alcoholic lactic acidosis, will order lactate. 19:08 lactic 2.7, most likely due to EtOH intoxication. White count 5.5, H and H 11.7 or 35.5 consistent with his prior values. Mag 1.5, will repeat with 2 g over 15 minutes as his primary complaint upon arrival with shortness of breath. I do not feel that this patient is septic at this time. 19:43 there is a detox bed available for this patient at [facility] in the morning. Patient agrees to be transferred to detox facility. Chest x-rays negative for acute findings. 21:44 lactic 7.5, will repeat value. 23:07 lactic 6.0 order for more fluids. Lactic acidosis most likely due to alcoholism. Patient is alert oriented, no acute distress at this time. 02:00 discussion with hospitalist, plan of care is for admission for alcohol withdrawal symptoms and acidosis. Low likelihood of sepsis at this time. Patient does have an elevated leukocyte esterase but no urine bacteria low likelihood of UTI. Hospitalist agrees with this [employer], no antibiotics ordered. Abdominal ultrasound ordered, hospitalist will follow. Consultations Consultation #1: Konstantin Time: 02:00 Medications Administered Discontinued Medications Generic Name Dose Route Start Last Admin Trade Name Freq PRN Reason Stop Dose Admin Albuterol Sulfate 7.5 mg/ 10 mg 02/05/22 18:24 02/05/22 18:34 Albuterol Sulfate 2.5 mg INHALE 02/05/22 18:25 10 mg ONCE ONE Administration Sodium Chloride 1,000 mls @ 999 mls/hr 02/05/22 19:00 02/05/22 22:08 Ns IVCONT 02/05/22 20:00 Infused .Q1H1M NOHEMI Infusion Magnesium Sulfate 2 gm in 50 mls @ 25 mls/hr 02/05/22 19:09 02/05/22 22:08 Magnesium Sulfate/H2o IV 02/05/22 21:08 Infused ONCE ONE Infusion Lorazepam 2 mg 02/05/22 19:42 02/05/22 19:48 Lorazepam 1 Mg Tablet PO 02/05/22 19:43 2 mg ONCE ONE Administration Methylprednisolone Sodium Succinate 125 mg 02/05/22 18:24 02/05/22 19:49 Methylprednisolone Sod Succ 125 Mg/2 Ml Vial IVPUSH 02/05/22 18:25 125 mg ONCE ONE Administration Medical Decision Making Medical Decision Making Differential Diagnoses: Differential diagnosis (ETOH withdrawal, aspiration pneumonia, pneumonia, COVID, influenza, COPD) Consideration of admission/observation: Consideration of Admission/Observation (Patient admitted for ETOH withdrawal, and suspected alcoholic acidosis) Discussion of management with other physician/healthcare provider/other source (e.g., hospitalist, medical cost consultant, behavioral health): Discussion w/other physician/healthcare provider Management of the patient was discussed with: Hospitalist My interpretation is Lab Attestation: I reviewed the patient's lab results. Independent interpretation of EKG, rhythm strip, radiology study: Independent interp EKG,rhythm strip, radiology study I performed an independent interpretation of the: EKG My interpretation is Vent. rate 103 BPM IA interval 136 ms QRS duration 128 ms QT/QTc 374/489 ms P-R-T axes 73 -68 53 Sinus tachycardia Right bundle branch block Left anterior fascicular block Bifascicular block Abnormal ECG When compared with ECG of 02-FEB-2022 11:57, No significant change was found Discussion of test interpretation with radiology: Discussion of test interpretation with radiology (Chest x-ray) EXAMINATION: PORTABLE CHEST 1 VIEW CLINICAL INFORMATION: sob, wheezing . COMPARISON: 02/05/2022. TECHNIQUE: Portable frontal view of the chest was obtained. FINDINGS: The lungs are well expanded. No focal infiltrate, effusion, edema, or pneumothorax. Cardiac and mediastinal silhouettes are within normal limits for technique. No acute bony abnormality seen. XR/XR chest 1V IMPRESSION: No evidence of acute disease. ? I agree with Radiology findings. Chronic conditions affecting care (e.g., diabetes, HTN): Chronic conditions affecting care (e.g., diabetes, HTN) (Alcoholism) Discharge Plan Discharge Patient Disposition: Admitted As Inpatient Prescriptions: No Action melatonin 3 mg tablet 1 tab PO BEDTIME Spiriva Respimat 1.25 mcg/actuation mist 2 puff inhalation DAILY Eliquis 5 mg tablet 5 mg PO BID Qty: 60 0RF albuterol sulfate 90 mcg/actuation HFA aerosol inhaler 2 inh inhalation Q8H PRN (Reason: shortness of breath or wheezing) Qty: 8.5 0RF dexamethasone [Decadron] 6 mg tablet 6 mg PO DAILY Qty: 7 0RF albuterol sulfate [ProAir HFA] 90 mcg/actuation HFA aerosol inhaler 2 puff inhalation Q4-6H PRN (Reason: Wheezing) Qty: 8.5 0RF Eliquis 5 mg tablet 5 mg PO BID Qty: 60 0RF cefuroxime axetil 250 mg tablet 250 mg PO BID Qty: 14 0RF
[2022-02-05 18:16] VITALS: BP 104/41; BP 105/65; PULSE 100; PULSE 99; RESP 18; O2SAT 97; O2SAT 98; BMI 20.7
--- NOTE | 2022-02-05 18:24 | ECG_ITS ---
Test Reason : ETOH Blood Pressure : / mmHG Vent. Rate : 103 BPM Atrial Rate : 103 BPM P-R Int : 136 ms QRS Dur : 128 ms QT Int : 374 ms P-R-T Axes : 073 -68 053 degrees QTc Int : 489 ms Sinus tachycardia Right bundle branch block Left anterior fascicular block Bifascicular block Abnormal ECG When compared with ECG of 02-FEB-2022 11:57, No significant change was found Referred By: Hannah Le Electronically Signed By:WAYNE AVILEZ MD
[2022-02-05] MEDS: Albuterol Sulfate 7.5 MG, Albuterol Sulfate (0.083%) 2.5 MG 10 MG INHALE (18:34)
[2022-02-05 18:43] LABS: MANUAL DIFF FLAG NO
[2022-02-05 18:44] LABS: Basophils Percent Auto 0.5 % (0-2); Eosinophils Absolute Auto 0.2 X10*3/uL (0.0-0.4); Eosinophils Percent Auto 2.9 % (0-4); Hematocrit 35.5 % (42.0-52.0); Hemoglobin 11.7 g/dl (14.0-18.0); Imm Gran Abs Auto 0.02 X10*3/uL (0.00-0.03); Imm Gran Pct Auto 0.4 % (0.0-0.4); Lymphocytes Absolute Auto 1.5 X10*3/uL (1.2-4.9); Lymphocytes Percent Auto 26.9 % (20-40); Mean Corpuscular Hemoglobin 28.2 pg (27.0-33.0); Mean Corpuscular Volume 85.5 fL (80.0-98.0); Mean Platelet Volume 9.3 fL (9.4-12.4); Monocytes Absolute Auto 0.5 X10*3/uL (0.1-1.2); Monocytes Percent Auto 8.9 % (2-11); Neutrophils Absolute Auto 3.3 x10*3/uL (2.0-8.3); Neutrophils Percent Auto 60.4 % (45-73); Platelet Count 213 X10*3/uL (160-400); Red Blood Count 4.15 X10*6/uL (4.60-5.80); White Blood Count 5.5 X10*3/uL (4.8-10.8)
[2022-02-05 18:49] VITALS: BP 98/58; PULSE 103; RESP 16; TEMP 36.6; O2SAT 94
[2022-02-05 18:59] LABS: Ethanol 180 mg/dL
[2022-02-05 19:01] LABS: Anion Gap 17 (12-20); Blood Urea Nitrogen 6 mg/dL (9-16); Calcium 9.5 mg/dL (8.4-10.2); Carbon Dioxide 28 mmol/L (22-29); Chloride 102 mmol/L (96-108); Estimated Glomerular Filt Rate > 60; Glucose Random 89 mg/dL (60-115); Magnesium 1.5 mg/dL (1.6-2.6); Potassium 3.8 mmol/L (3.3-5.1); Sodium 143 mmol/L (135-145)
[2022-02-05 19:06] LABS: B Type Natriuretic Peptide 66 pg/mL (<100); Troponin-I High Sensitivity < 3.5 ng/L (<3.5-35.0)
[2022-02-05 19:08] LABS: Lactic Acid 2.7 mmol/L (0.5-2.0)
[2022-02-05 19:35] LABS: Influenza A PCR NEGATIVE (Negative); Influenza B PCR NEGATIVE (Negative); Resp Syncy Virus RNA Qual PCR NEGATIVE (Negative); SARS COV2 PCR INHOUSE NEGATIVE (Negative)
[2022-02-05] MEDS: LORazepam 1 MG TABLET 2 MG PO (19:48)
[2022-02-05] MEDS: Magnesium Sulfate/H2O 2 GM/50 ML PIGGYBACK IV (19:48)
[2022-02-05] MEDS: methylPREDNISolone Sod Succ 125 MG/2 ML VIAL IVPUSH (19:49)
[2022-02-05 20:00] VITALS: BP 100/53; PULSE 102; RESP 16; TEMP 36.8; O2SAT 98
[2022-02-05] MEDS: 0.9 % Sodium Chloride 1,000 ML 999 ML IVCONT (20:01)
[2022-02-05 20:41] LABS: Reflex Lactate? Lactic Acid Added
--- NOTE | 2022-02-05 20:51 | MHC.RECOVSUP ---
o consult:ETOH o? Current location:ED04? o? Identified substance use concern:? -? Seeking ATS (detox) -? Support ? Intervention: o? ATS bed search started/completed/in process o? Harm reduction discussion ? Plan: o? Bed search in progress to o? Follow up tomorrow? ? Additional information:RC spoke with pt, pt is interested in detox. RC spoke to [facility], sent referral, call [facility] in the morning to get pt over to [facility]. Pt is all set.
[2022-02-05 21:45] LABS: ~Lactic Acid-LAB USE ONLY 7.5 mmol/L (0.5-2.0)
[2022-02-05 22:00] VITALS: BP 117/75; PULSE 100; RESP 16; TEMP 36.2; O2SAT 98
[2022-02-05 23:13] LABS: Reflex Lactate? 2 Y
[2022-02-05 23:55] LABS: Appearance Urine Clear; Color Urine Dark Yellow; Glucose Urine UA Negative (Negative); Leukocyte Esterase Urine Moderate (2+) (Negative); Nitrite Urine Negative (Negative); UMIC TRIGGER UACC YES; Urine Blood Negative (Negative); Urine Ketones Trace mg/dL (Negative); Urine Protein 30 (1+) mg/dL (Neg-Trace)
[2022-02-05 23:59] LABS: Bacteria Urine None Seen (None Seen); RBC Urine 0-2 /HPF (0-2); Squamous Epithelial Cell Urine 0-2 /HPF (0-2); UACC Culture Trigger YES; WBC Urine >50 /HPF (0-5)
[2022-02-06] VITALS (8 sets, daily range): BP systolic 115–139; BP diastolic 57–84; PULSE 70–104; RESP 16–23; TEMP 35.4–37.3; O2SAT 94–98; BMI 22.6
[2022-02-06 00:15] LABS: ~Lactic Acid-LAB USE ONLY 5.6 mmol/L (0.5-2.0)
[2022-02-06 00:32] LABS: Reflex Lactate? Lactic Acid Added
[2022-02-06 01:06] LABS: Amphetamine Screen Urine Not Detected (Not Detect); Barbiturates, Urine Not Detected (Not Detect); Benzodiazepines Screen Urine POSITIVE (Not Detect); Cannabinoid Screen Urine Not Detected (Not Detect); Cocaine Screen Urine Not Detected (Not Detect); Fentanyl, urine Not Detected (Not Detect); Opiate Screen Urine Not Detected (Not Detect); Phencyclidine Screen Urine Not Detected (Not Detect)
[2022-02-06 02:20] LABS: ~Lactic Acid-LAB USE ONLY 3.4 mmol/L (0.5-2.0)
[2022-02-06] MEDS: iohexoL 350 MG/ML 100 ML INFUS..BTL 85 ML IV (02:43)
[2022-02-06] MEDS: Throat Lozenge, Medicated LOZENGE 1 LOZENGE MUCOUS MEM (03:07)
[2022-02-06] MEDS: Magnesium Hydrox/Alum Hydrox 30 ML ORAL.SUSP PO ×3 (03:07→23:46)
[2022-02-06] MEDS: Benzonatate 100 MG CAPSULE 200 MG PO (03:07)
[2022-02-06] MEDS: 0.9 % Sodium Chloride 1,000 ML 999 ML IVCONT ×2 (03:07→03:11)
[2022-02-06 03:59] LABS: Reflex Lactate? 2 Y
--- NOTE | 2022-02-06 04:01 | PM.IMHP ---
History of Present Illness Date of Service: 02/06/22 Chief Complaint: Alcohol withdrawal This is a 61-year-old male with pertinent history of alcohol use disorder, tobacco use disorder, DVT on Eliquis presents to the emergency department for concerns of alcohol withdrawal. Patient states he drinks whiskey every day, unknown amount. Patient stopped drinking for 4 days and underwent symptoms of withdrawal including nausea, vomiting, sweating. To relieve symptoms, patient again had whiskey on the morning of 02/05. He presented to the ER as he states that he has been starting to have similar complaints. Has experienced withdrawal before. Patient states he has not eaten much over the last 4 days as he was not feeling well. No fever or chills. Also has symptoms of gastroesophageal reflux disease. No blood in vomitus. Also noticed that his urine changed color an order and has been having urinary hesitancy. No change in bowel habits. Patient denies chest discomfort, palpitations, shortness of breath. Also smokes about a pack of cigarettes per day In the emergency department, lactic acidosis was noted. Review of Systems Constitutional: Constitutional: Reports fatigue, Reports lethargy, Reports malaise and Reports weakness Cardiovascular: Cardiovascular: Reports no additional cardiovascular complaints Respiratory: Respiratory: Reports no additional respiratory complaints Gastrointestinal: Gastrointestinal: Reports heartburn, Reports nausea and Reports vomiting Genitourinary: Genitourinary: Reports urinary hesitancy Neurologic: Reports weakness Endocrine: Endocrine: Reports fatigue [facility] Medical History Alcohol abuse Asthma COPD (chronic obstructive pulmonary disease) DVT (deep venous thrombosis) Neuropathy Subdural hematoma Pertinent family history: Does not know of significant medical history in first-degree relatives Social History Alcohol intake: current Alcohol intake frequency: 3 or more drinks per day Alcohol type: hard liquor Patient Tobacco Use Status: Current everyday Tobacco user Smoked in Last 30 Days: Yes Use of substances other than those prescribed or required for medical reasons: Unable to respond Substance Use Type: Marijuana Advance Directives: No Advance Directives Information Provided: No Meds Allergies Allergy/AdvReac Type Severity Reaction Status Date / Time Peanut Butter Allergy Facial Verified 12/29/21 17:26 Swelling raspberry Allergy Facial Verified 12/29/21 17:26 Swelling Active Medications: Current Medications Pharmacy Consult (Consult Rx Etoh Phenob Im/Po) 1 each MISCELLANE ONCE PRN; Protocol PRN Reason: Consult order Pharmacy Consult (Consult Rx Perform Med Rec) 1 each MISCELLANE ONCE PRN PRN Reason: Consult order Home Medications Medication Instructions Recorded Confirmed Last Taken Type melatonin 3 mg tablet 1 tab PO BEDTIME 07/23/21 10/06/21 Unknown History tiotropium bromide 1.25 2 puff inhalation DAILY 07/23/21 10/06/21 Unknown History mcg/actuation mist for inhalation (Spiriva Respimat) Physical Exam Vital Signs and Narrative: Vital Signs: Last Vital Signs Temp 95.7 F L 02/06/22 03:19 Pulse 90 02/06/22 03:19 Resp 18 02/06/22 03:19 BP 139/57 L 02/06/22 03:19 Pulse Ox 95 02/06/22 03:19 O2 Del Method 02/06/22 03:19 BMI result Body Mass Index 20.7 Middle-aged male lying in bed in mild distress Neck supple, no JVD Regular rate and rhythm, S1-S2 heard Regular breath sounds bilaterally, no wheezing or crackles appreciated Abdomen soft nontender, no guarding, no rigidity Patient is awake, alert and oriented to self, place, time and person ; no focal motor deficit Psych: Normal mood No pedal edema Results Labs CBC and Chem 7: 02/05/22 18:39 02/05/22 18:39 Labs: Laboratory Results - last 24 hr 02/05/22 02/05/22 02/05/22 18:38 18:39 18:39 MCV 85.5 MCH 28.2 MCHC 33.0 RDW 17.0 H Plt Count 213 D MPV 9.3 L Immature Gran % (Auto) 0.4 Neut % (Auto) 60.4 Lymph % (Auto) 26.9 Gulf % (Auto) 8.9 Eos % (Auto) 2.9 Baso % (Auto) 0.5 Lymph # (Auto) 1.5 Gulf # (Auto) 0.5 Eos # (Auto) 0.2 Baso # (Auto) 0.0 Abs Immat Gran (auto) 0.02 Absolute Neuts (auto) 3.3 Absolute Nucleated RBC 0.000 Nucleated RBC % (auto) 0.0 Anion Gap 17 Estim Creat Clear Calc 81.0 Estimated GFR > 60 Random Glucose 89 Lactic Acid 2.7 H* Lactic Acid F/U @ 2Hr Lactic Acid F/U @ 4Hr Calcium 9.5 Magnesium 1.5 L Troponin I High Sens B-Natriuretic Peptide Urine Color Urine Appearance Urine pH Ur Specific Evergreen Urine Protein Urine Glucose (UA) Urine Ketones Urine Blood Urine Nitrite Ur Leukocyte Esterase Urine RBC Urine WBC Ur Squamous Epith Cells Urine Bacteria Hyaline Casts Urine Opiates Screen Urine Fentanyl Screen Ur Barbiturates Screen Ur Phencyclidine Scrn Ur Amphetamines Screen U Benzodiazepines Scrn Urine Cocaine Screen U Marijuana (THC) Screen Ethyl Alcohol Influenza Type A (PCR) Influenza Type B (PCR) RSV RNA Qual (PCR) SARS-CoV-2 RNA (RT-PCR) 02/05/22 02/05/22 02/05/22 18:39 18:39 18:39 MCV MCH MCHC RDW Plt Count MPV Immature Gran % (Auto) Neut % (Auto) Lymph % (Auto) Gulf % (Auto) Eos % (Auto) Baso % (Auto) Lymph # (Auto) Gulf # (Auto) Eos # (Auto) Baso # (Auto) Abs Immat Gran (auto) Absolute Neuts (auto) Absolute Nucleated RBC Nucleated RBC % (auto) Anion Gap Estim Creat Clear Calc Estimated GFR Random Glucose Lactic Acid Lactic Acid F/U @ 2Hr Lactic Acid F/U @ 4Hr Calcium Magnesium Troponin I High Sens < 3.5 B-Natriuretic Peptide 66 Urine Color Urine Appearance Urine pH Ur Specific Evergreen Urine Protein Urine Glucose (UA) Urine Ketones Urine Blood Urine Nitrite Ur Leukocyte Esterase Urine RBC Urine WBC Ur Squamous Epith Cells Urine Bacteria Hyaline Casts Urine Opiates Screen Urine Fentanyl Screen Ur Barbiturates Screen Ur Phencyclidine Scrn Ur Amphetamines Screen U Benzodiazepines Scrn Urine Cocaine Screen U Marijuana (THC) Screen Ethyl Alcohol Influenza Type A (PCR) NEGATIVE Influenza Type B (PCR) NEGATIVE RSV RNA Qual (PCR) NEGATIVE SARS-CoV-2 RNA (RT-PCR) NEGATIVE 02/05/22 02/05/22 02/05/22 18:39 21:07 22:27 MCV MCH MCHC RDW Plt Count MPV Immature Gran % (Auto) Neut % (Auto) Lymph % (Auto) Gulf % (Auto) Eos % (Auto) Baso % (Auto) Lymph # (Auto) Gulf # (Auto) Eos # (Auto) Baso # (Auto) Abs Immat Gran (auto) Absolute Neuts (auto) Absolute Nucleated RBC Nucleated RBC % (auto) Anion Gap Estim Creat Clear Calc Estimated GFR Random Glucose Lactic Acid 6.0 H* Lactic Acid F/U @ 2Hr 7.5 H* Lactic Acid F/U @ 4Hr Calcium Magnesium Troponin I High Sens B-Natriuretic Peptide Urine Color Urine Appearance Urine pH Ur Specific Evergreen Urine Protein Urine Glucose (UA) Urine Ketones Urine Blood Urine Nitrite Ur Leukocyte Esterase Urine RBC Urine WBC Ur Squamous Epith Cells Urine Bacteria Hyaline Casts Urine Opiates Screen Urine Fentanyl Screen Ur Barbiturates Screen Ur Phencyclidine Scrn Ur Amphetamines Screen U Benzodiazepines Scrn Urine Cocaine Screen U Marijuana (THC) Screen Ethyl Alcohol 180 Influenza Type A (PCR) Influenza Type B (PCR) RSV RNA Qual (PCR) SARS-CoV-2 RNA (RT-PCR) 02/05/22 02/05/22 02/05/22 23:46 23:46 23:46 MCV MCH MCHC RDW Plt Count MPV Immature Gran % (Auto) Neut % (Auto) Lymph % (Auto) Gulf % (Auto) Eos % (Auto) Baso % (Auto) Lymph # (Auto) Gulf # (Auto) Eos # (Auto) Baso # (Auto) Abs Immat Gran (auto) Absolute Neuts (auto) Absolute Nucleated RBC Nucleated RBC % (auto) Anion Gap Estim Creat Clear Calc Estimated GFR Random Glucose Lactic Acid Lactic Acid F/U @ 2Hr Lactic Acid F/U @ 4Hr 5.6 H* Calcium Magnesium Troponin I High Sens B-Natriuretic Peptide Urine Color Dark Yellow Urine Appearance Clear Urine pH 6.0 Ur Specific Evergreen 1.020 Urine Protein 30 (1+) H Urine Glucose (UA) Negative Urine Ketones Trace Urine Blood Negative Urine Nitrite Negative Ur Leukocyte Esterase Moderate (2+) H Urine RBC 0-2 Urine WBC >50 H Ur Squamous Epith Cells 0-2 Urine Bacteria None Seen Hyaline Casts 3-5 Urine Opiates Screen Not Detected Urine Fentanyl Screen Not Detected Ur Barbiturates Screen Not Detected Ur Phencyclidine Scrn Not Detected Ur Amphetamines Screen Not Detected U Benzodiazepines Scrn POSITIVE H Urine Cocaine Screen Not Detected U Marijuana (THC) Screen Not Detected Ethyl Alcohol Influenza Type A (PCR) Influenza Type B (PCR) RSV RNA Qual (PCR) SARS-CoV-2 RNA (RT-PCR) 02/06/22 01:56 MCV MCH MCHC RDW Plt Count MPV Immature Gran % (Auto) Neut % (Auto) Lymph % (Auto) Gulf % (Auto) Eos % (Auto) Baso % (Auto) Lymph # (Auto) Gulf # (Auto) Eos # (Auto) Baso # (Auto) Abs Immat Gran (auto) Absolute Neuts (auto) Absolute Nucleated RBC Nucleated RBC % (auto) Anion Gap Estim Creat Clear Calc Estimated GFR Random Glucose Lactic Acid Lactic Acid F/U @ 2Hr 3.4 H* Lactic Acid F/U @ 4Hr Calcium Magnesium Troponin I High Sens B-Natriuretic Peptide Urine Color Urine Appearance Urine pH Ur Specific Evergreen Urine Protein Urine Glucose (UA) Urine Ketones Urine Blood Urine Nitrite Ur Leukocyte Esterase Urine RBC Urine WBC Ur Squamous Epith Cells Urine Bacteria Hyaline Casts Urine Opiates Screen Urine Fentanyl Screen Ur Barbiturates Screen Ur Phencyclidine Scrn Ur Amphetamines Screen U Benzodiazepines Scrn Urine Cocaine Screen U Marijuana (THC) Screen Ethyl Alcohol Influenza Type A (PCR) Influenza Type B (PCR) RSV RNA Qual (PCR) SARS-CoV-2 RNA (RT-PCR) Imaging Radiologist's Impressions: Impressions Chest X-Ray 02/05/22 19:01 IMPRESSION: No evidence of acute disease. Abdomen/Pelvis CT 02/06/22 02:43 IMPRESSION: 1. No acute abnormalities identified. 2. Cholelithiasis. 3. Marked right renal atrophy unchanged compared with 08/10/2021. 4. Mild colonic diverticulosis. No evidence of acute diverticulitis. 5. Inferior vena cava filter in situ. Assessment and Plan (1) Alcohol abuse: Status: Acute (2) Acidosis, lactic: Status: Acute (3) UTI (urinary tract infection): Status: Acute (4) Tobacco abuse: Status: Acute Plan This is a 61-year-old male with pertinent history of alcohol use disorder, tobacco use disorder, DVT on Eliquis presents to the emergency department for concerns of alcohol withdrawal. #. Alcohol use disorder: Initiating thiamine and folic acid. Initiated phenobarb protocol for withdrawal, monitor CIWA. CARE team and addiction team consulted #. Acute lactic acidosis: Due to hypoperfusion in the setting of hypovolemia and alcoholism. Trending down with IV fluid resuscitation. #. Acute UTI: Initiating IV Rocephin while in the hospital. Monitor urine culture #. History of DVT on Eliquis #. Tobacco use disorder: Refused nicotine patch DVT prophylaxis: On Eliquis Full code Regular diet Quality Stroke Does the patient have a stroke diagnosis?: No VTE Prior VTE?: No VTE Risk Level:: Medical - moderate - high VTE Device Contraindication: Treatment Not Indicated VTE Drug Contraindication: N/A - Med Ordered
[2022-02-06 04:36] LABS: MANUAL DIFF FLAG NO
[2022-02-06 04:38] LABS: Basophils Percent Auto 0.4 % (0-2); Hemoglobin 9.8 g/dl (14.0-18.0); Imm Gran Abs Auto 0.02 X10*3/uL (0.00-0.03); Imm Gran Pct Auto 0.7 % (0.0-0.4); Lymphocytes Absolute Auto 0.2 X10*3/uL (1.2-4.9); Lymphocytes Percent Auto 8.7 % (20-40); Mean Corpuscular HGB Conc 32.7 g/dl (31.0-36.0); Mean Corpuscular Hemoglobin 28.2 pg (27.0-33.0); Mean Corpuscular Volume 86.2 fL (80.0-98.0); Mean Platelet Volume 9.1 fL (9.4-12.4); Monocytes Percent Auto 1.4 % (2-11); Neutrophils Absolute Auto 2.5 x10*3/uL (2.0-8.3); Neutrophils Percent Auto 88.8 % (45-73); Platelet Count 153 X10*3/uL (160-400); Red Blood Count 3.48 X10*6/uL (4.60-5.80); Red Cell Distribution Width 16.9 % (11.0-16.0); White Blood Count 2.8 X10*3/uL (4.8-10.8)
[2022-02-06] MEDS: Thiamine HCL 100 MG TABLET PO ×2 (04:51→07:30)
[2022-02-06] MEDS: PHENobarbitaL sodium 130 MG/ML IM ONCE 156 MG IM (04:51)
[2022-02-06 04:54] LABS: ~Lactic Acid-LAB USE ONLY 2.6 mmol/L (0.5-2.0)
[2022-02-06 04:56] LABS: Magnesium 1.5 mg/dL (1.6-2.6)
[2022-02-06 04:58] LABS: Anion Gap 14 (12-20); Blood Urea Nitrogen 8 mg/dL (9-16); Calcium 8.5 mg/dL (8.4-10.2); Carbon Dioxide 22 mmol/L (22-29); Chloride 104 mmol/L (96-108); Creatinine Clr Calc Pharmacy 94.1; Estimated Glomerular Filt Rate > 60; Glucose Random 151 mg/dL (60-115); Sodium 136 mmol/L (135-145)
[2022-02-06] MEDS: cefTRIAXone sodium 1 GM in 0.9 % Sodium Chloride 50 ML IV (05:13)
[2022-02-06] MEDS: Folic Acid 1 MG TABLET PO (07:29)
[2022-02-06] MEDS: PHENobarbitaL sodium 130 MG/ML VIAL IM Q3Hx2 IM ×2 (07:29→10:31)
[2022-02-06] MEDS: 0.9 % Sodium Chloride Flush 3 ML SYRINGE IVFLUSH ×3 (07:30→21:22)
[2022-02-06] MEDS: Famotidine 20 MG TABLET PO (07:30)
--- NOTE | 2022-02-06 09:01 | PHA.MEDREC ---
Pharmacy Consult ? Medication Reconciliation Pharmacy has completed the medication reconciliation. Patient was upset over his medications. Patient says he only takes his inhales, eliquis and stool softener. When interviewed further, he admits that he knows he should be on other drugs but he has no idea what they are for, therefore he will not take them. I told the patient that pharmacy is at his disposal if he would like a consultation on his medications. Pharmacy may be contacted for a patient consult if needed.
[2022-02-06 09:03] LABS: Cancel Lactic Acid Canceled
--- NOTE | 2022-02-06 10:02 | MHC.CM.PN ---
CM spoke with Patient over the phone @ [phone] and addressed MAY with him. Patient lives alone in a house and uses a cane and he hopes to dc to an Inpatient Rehab in [place] for ETOH &Psych issues that his Transportation Department Supervisor recommended (Patient cannot recall the name of the facility but explains that he has it written down at home). CM has initiated and will follow for dc planning. Patient has received the [employer] Covid vax and his PCP is Dr. Cristhian Delgado. Patient's HCP is his Son, Real.
--- NOTE | 2022-02-06 12:28 | PM.EVENT ---
Event Note Date of Service: 02/06/22 Event Note: Pt was admitted hours ago, I saw him and discussed alcohol cessaation. Continue alcohol withdrawal protocol
--- NOTE | 2022-02-06 18:31 | HO.ADDICT_ITS ---
History of Present Illness Date of Service: 02/06/2022 Chief Complaint: Alcohol withdrawal Reason for Consult: alcohol use disorder HPI Narrative: Patient is a 61 year old male currently medically with alcohol withdrawal. Initially seen by kids activities coach for ATS admission and bedsearch started, however, patient ended up getting medically admitted. Patient seen in room 20 of main ED. Reporting that he wants to go to [facility] for treatment--advised he is not a candidate at this time due to acute medical needs. Patient reports long history of alcohol use and treatment. ---of note patient was in our ED on 02/02 and referred to [facility] for Alcohol ATS admission Currently on phenobarb protocol Review of Systems Constitutional: Reports difficulty sleeping, Reports malaise and Reports poor appetite Diagnostics Vital Signs (24Hr): Vital Signs - 24 hr 02/05/22 18:49 02/05/22 20:00 02/05/22 22:00 Temperature 97.8 F 98.2 F 97.2 F Pulse Rate 103 H 102 H 100 Respiratory Rate 16 16 16 Blood Pressure 98/58 L 100/53 L 117/75 Pulse Oximetry 94 98 98 Oxygen Delivery Method Room Air Room Air Room Air 02/06/22 02:58 02/06/22 03:19 02/06/22 07:57 Temperature 99.1 F 95.7 F L Pulse Rate 104 H 90 85 Respiratory Rate 18 18 23 H Blood Pressure 115/63 139/57 L 133/72 Pulse Oximetry 95 95 94 Oxygen Delivery Method Room Air Room Air Room Air 02/06/22 14:51 02/06/22 15:44 Temperature 97.6 F Pulse Rate 77 70 Respiratory Rate 16 Blood Pressure 137/67 126/68 Pulse Oximetry 98 98 Oxygen Delivery Method Room Air BMI result Body Mass Index 20.7 Labs Results: 02/06/22 04:29 02/06/22 04:29 Labs: Laboratory Results - last 48 hr 02/05/22 02/05/22 02/05/22 18:38 18:39 18:39 WBC 5.5 RBC 4.15 L Hgb 11.7 L Hct 35.5 L MCV 85.5 MCH 28.2 MCHC 33.0 RDW 17.0 H Plt Count 213 D MPV 9.3 L Immature Gran % (Auto) 0.4 Neut % (Auto) 60.4 Lymph % (Auto) 26.9 [place] % (Auto) 8.9 Eos % (Auto) 2.9 Baso % (Auto) 0.5 Lymph # (Auto) 1.5 [place] # (Auto) 0.5 Eos # (Auto) 0.2 Baso # (Auto) 0.0 Abs Immat Gran (auto) 0.02 Absolute Neuts (auto) 3.3 Absolute Nucleated RBC 0.000 Nucleated RBC % (auto) 0.0 Sodium 143 Potassium 3.8 Chloride 102 Carbon Dioxide 28 Anion Gap 17 BUN 6 L Creatinine 0.86 Estim Creat Clear Calc 81.0 Estimated GFR > 60 Random Glucose 89 Lactic Acid 2.7 H* Lactic Acid F/U @ 2Hr Lactic Acid F/U @ 4Hr Calcium 9.5 Magnesium 1.5 L Troponin I High Sens B-Natriuretic Peptide Urine Color Urine Appearance Urine pH Ur Specific [place] Urine Protein Urine Glucose (UA) Urine Ketones Urine Blood Urine Nitrite Ur Leukocyte Esterase Urine RBC Urine WBC Ur Squamous Epith Cells Urine Bacteria Hyaline Casts Urine Opiates Screen Urine Fentanyl Screen Ur Barbiturates Screen Ur Phencyclidine Scrn Ur Amphetamines Screen U Benzodiazepines Scrn Urine Cocaine Screen U Marijuana (THC) Screen Ethyl Alcohol Influenza Type A (PCR) Influenza Type B (PCR) RSV RNA Qual (PCR) SARS-CoV-2 RNA (RT-PCR) 02/05/22 02/05/22 02/05/22 18:39 18:39 18:39 WBC RBC Hgb Hct MCV MCH MCHC RDW Plt Count MPV Immature Gran % (Auto) Neut % (Auto) Lymph % (Auto) [place] % (Auto) Eos % (Auto) Baso % (Auto) Lymph # (Auto) [place] # (Auto) Eos # (Auto) Baso # (Auto) Abs Immat Gran (auto) Absolute Neuts (auto) Absolute Nucleated RBC Nucleated RBC % (auto) Sodium Potassium Chloride Carbon Dioxide Anion Gap BUN Creatinine Estim Creat Clear Calc Estimated GFR Random Glucose Lactic Acid Lactic Acid F/U @ 2Hr Lactic Acid F/U @ 4Hr Calcium Magnesium Troponin I High Sens < 3.5 B-Natriuretic Peptide 66 Urine Color Urine Appearance Urine pH Ur Specific [place] Urine Protein Urine Glucose (UA) Urine Ketones Urine Blood Urine Nitrite Ur Leukocyte Esterase Urine RBC Urine WBC Ur Squamous Epith Cells Urine Bacteria Hyaline Casts Urine Opiates Screen Urine Fentanyl Screen Ur Barbiturates Screen Ur Phencyclidine Scrn Ur Amphetamines Screen U Benzodiazepines Scrn Urine Cocaine Screen U Marijuana (THC) Screen Ethyl Alcohol Influenza Type A (PCR) NEGATIVE Influenza Type B (PCR) NEGATIVE RSV RNA Qual (PCR) NEGATIVE SARS-CoV-2 RNA (RT-PCR) NEGATIVE 02/05/22 02/05/22 02/05/22 18:39 21:07 22:27 WBC RBC Hgb Hct MCV MCH MCHC RDW Plt Count MPV Immature Gran % (Auto) Neut % (Auto) Lymph % (Auto) [place] % (Auto) Eos % (Auto) Baso % (Auto) Lymph # (Auto) [place] # (Auto) Eos # (Auto) Baso # (Auto) Abs Immat Gran (auto) Absolute Neuts (auto) Absolute Nucleated RBC Nucleated RBC % (auto) Sodium Potassium Chloride Carbon Dioxide Anion Gap BUN Creatinine Estim Creat Clear Calc Estimated GFR Random Glucose Lactic Acid 6.0 H* Lactic Acid F/U @ 2Hr 7.5 H* Lactic Acid F/U @ 4Hr Calcium Magnesium Troponin I High Sens B-Natriuretic Peptide Urine Color Urine Appearance Urine pH Ur Specific [place] Urine Protein Urine Glucose (UA) Urine Ketones Urine Blood Urine Nitrite Ur Leukocyte Esterase Urine RBC Urine WBC Ur Squamous Epith Cells Urine Bacteria Hyaline Casts Urine Opiates Screen Urine Fentanyl Screen Ur Barbiturates Screen Ur Phencyclidine Scrn Ur Amphetamines Screen U Benzodiazepines Scrn Urine Cocaine Screen U Marijuana (THC) Screen Ethyl Alcohol 180 Influenza Type A (PCR) Influenza Type B (PCR) RSV RNA Qual (PCR) SARS-CoV-2 RNA (RT-PCR) 02/05/22 02/05/22 02/05/22 23:46 23:46 23:46 WBC RBC Hgb Hct MCV MCH MCHC RDW Plt Count MPV Immature Gran % (Auto) Neut % (Auto) Lymph % (Auto) [place] % (Auto) Eos % (Auto) Baso % (Auto) Lymph # (Auto) [place] # (Auto) Eos # (Auto) Baso # (Auto) Abs Immat Gran (auto) Absolute Neuts (auto) Absolute Nucleated RBC Nucleated RBC % (auto) Sodium Potassium Chloride Carbon Dioxide Anion Gap BUN Creatinine Estim Creat Clear Calc Estimated GFR Random Glucose Lactic Acid Lactic Acid F/U @ 2Hr Lactic Acid F/U @ 4Hr 5.6 H* Calcium Magnesium Troponin I High Sens B-Natriuretic Peptide Urine Color Dark Yellow Urine Appearance Clear Urine pH 6.0 Ur Specific [place] 1.020 Urine Protein 30 (1+) H Urine Glucose (UA) Negative Urine Ketones Trace Urine Blood Negative Urine Nitrite Negative Ur Leukocyte Esterase Moderate (2+) H Urine RBC 0-2 Urine WBC >50 H Ur Squamous Epith Cells 0-2 Urine Bacteria None Seen Hyaline Casts 3-5 Urine Opiates Screen Not Detected Urine Fentanyl Screen Not Detected Ur Barbiturates Screen Not Detected Ur Phencyclidine Scrn Not Detected Ur Amphetamines Screen Not Detected U Benzodiazepines Scrn POSITIVE H Urine Cocaine Screen Not Detected U Marijuana (THC) Screen Not Detected Ethyl Alcohol Influenza Type A (PCR) Influenza Type B (PCR) RSV RNA Qual (PCR) SARS-CoV-2 RNA (RT-PCR) 02/06/22 02/06/22 02/06/22 01:56 04:29 04:29 WBC 2.8 L RBC 3.48 L Hgb 9.8 L Hct 30.0 L MCV 86.2 MCH 28.2 MCHC 32.7 RDW 16.9 H Plt Count 153 L D MPV 9.1 L Immature Gran % (Auto) 0.7 H Neut % (Auto) 88.8 H Lymph % (Auto) 8.7 L [place] % (Auto) 1.4 L Eos % (Auto) 0.0 Baso % (Auto) 0.4 Lymph # (Auto) 0.2 L [place] # (Auto) 0.0 L Eos # (Auto) 0.0 Baso # (Auto) 0.0 Abs Immat Gran (auto) 0.02 Absolute Neuts (auto) 2.5 Absolute Nucleated RBC 0.000 Nucleated RBC % (auto) 0.0 Sodium 136 Potassium 4.0 Chloride 104 Carbon Dioxide 22 Anion Gap 14 BUN 8 L Creatinine 0.74 Estim Creat Clear Calc 94.1 Estimated GFR > 60 Random Glucose 151 H Lactic Acid Lactic Acid F/U @ 2Hr 3.4 H* Lactic Acid F/U @ 4Hr Calcium 8.5 D Magnesium Troponin I High Sens B-Natriuretic Peptide Urine Color Urine Appearance Urine pH Ur Specific [place] Urine Protein Urine Glucose (UA) Urine Ketones Urine Blood Urine Nitrite Ur Leukocyte Esterase Urine RBC Urine WBC Ur Squamous Epith Cells Urine Bacteria Hyaline Casts Urine Opiates Screen Urine Fentanyl Screen Ur Barbiturates Screen Ur Phencyclidine Scrn Ur Amphetamines Screen U Benzodiazepines Scrn Urine Cocaine Screen U Marijuana (THC) Screen Ethyl Alcohol Influenza Type A (PCR) Influenza Type B (PCR) RSV RNA Qual (PCR) SARS-CoV-2 RNA (RT-PCR) 02/06/22 02/06/22 04:29 04:29 WBC RBC Hgb Hct MCV MCH MCHC RDW Plt Count MPV Immature Gran % (Auto) Neut % (Auto) Lymph % (Auto) [place] % (Auto) Eos % (Auto) Baso % (Auto) Lymph # (Auto) [place] # (Auto) Eos # (Auto) Baso # (Auto) Abs Immat Gran (auto) Absolute Neuts (auto) Absolute Nucleated RBC Nucleated RBC % (auto) Sodium Potassium Chloride Carbon Dioxide Anion Gap BUN Creatinine Estim Creat Clear Calc Estimated GFR Random Glucose Lactic Acid Lactic Acid F/U @ 2Hr Lactic Acid F/U @ 4Hr 2.6 H* Calcium Magnesium 1.5 L Troponin I High Sens B-Natriuretic Peptide Urine Color Urine Appearance Urine pH Ur Specific [place] Urine Protein Urine Glucose (UA) Urine Ketones Urine Blood Urine Nitrite Ur Leukocyte Esterase Urine RBC Urine WBC Ur Squamous Epith Cells Urine Bacteria Hyaline Casts Urine Opiates Screen Urine Fentanyl Screen Ur Barbiturates Screen Ur Phencyclidine Scrn Ur Amphetamines Screen U Benzodiazepines Scrn Urine Cocaine Screen U Marijuana (THC) Screen Ethyl Alcohol Influenza Type A (PCR) Influenza Type B (PCR) RSV RNA Qual (PCR) SARS-CoV-2 RNA (RT-PCR) Imaging Radiology Impressions: ITS Impressions Chest X-Ray 02/05/22 19:01 IMPRESSION: No evidence of acute disease. Abdomen/Pelvis CT 02/06/22 02:43 IMPRESSION: 1. No acute abnormalities identified. 2. Cholelithiasis. 3. Marked right renal atrophy unchanged compared with 08/10/2021. 4. Mild colonic diverticulosis. No evidence of acute diverticulitis. 5. Inferior vena cava filter in situ. Mental Status Exam Mental Status Exam Patient Behavior: Appropriate, Talkative and Cooperative Affect Description: Anxious Thought Process: Intact Judgement: Fair Medications Medications Current Medications Acetaminophen (Acetaminophen 325 Mg Tablet) 650 mg PO Q6H PRN PRN Reason: Pain, Mild (Pain Scale 1-3) Al Hydroxide/Mg Hydroxide (Magnesium Hydrox/Alum Hydrox 30 Ml Oral.Susp) 30 ml PO Q4H PRN PRN Reason: Dyspepsia Last Admin: 02/06/22 09:41 Dose: 30 ml Albuterol/Ipratropium (Albuterol/Iprat 2.5/0.5mg 3 Ml Ampul.Neb) 3 ml INHALE RQ4H PRN PRN Reason: wheezing Famotidine (Famotidine 20 Mg Tablet) 20 mg PO DAILY [facility] Last Admin: 02/06/22 07:30 Dose: 20 mg Folic Acid (Folic Acid 1 Mg Tablet) 1 mg PO DAILY [facility] Last Admin: 02/06/22 07:29 Dose: 1 mg Ceftriaxone Sodium 1 gm/ (Sodium Chloride) 50 mls @ 100 mls/hr IV Q24H [facility] Last Admin: 02/06/22 05:13 Dose: 100 mls/hr Melatonin (Melatonin 3 Mg Tablet) 6 mg PO BEDTIME PRN PRN Reason: Insomnia Ondansetron HCl (Ondansetron Hcl 4 Mg/2 Ml Vial) 4 mg IVPUSH Q8H PRN PRN Reason: Nausea and Vomiting Pharmacy Consult (Consult Rx Etoh Phenob Im/Po) 1 each MISCELLANE ONCE PRN; Protocol PRN Reason: Consult order Pharmacy Consult (Consult Rx Perform Med Rec) 1 each MISCELLANE ONCE PRN PRN Reason: Consult order Phenobarbital (Phenobarbital 15 Mg Tablet) 45 mg PO BID [facility]; Protocol Stop: 02/08/22 09:01 Phenobarbital (Phenobarbital 30 Mg Tablet) 30 mg PO BID [facility]; Protocol Stop: 02/10/22 09:01 Phenobarbital (Phenobarbital 30 Mg Tablet) 30 mg PO DAILY [facility]; Protocol Stop: 02/12/22 09:01 Sodium Chloride (0.9 % Sodium Chloride Flush 3 Ml Syringe) 3 ml IVFLUSH QSHIFT [facility] Last Admin: 02/06/22 15:57 Dose: 3 ml Thiamine HCl (Thiamine Hcl 100 Mg Tablet) 100 mg PO DAILY [facility] Last Admin: 02/06/22 07:30 Dose: 100 mg Allergies Allergies Allergy/AdvReac Type Severity Reaction Status Date / Time Peanut Butter Allergy Facial Verified 12/29/21 17:26 Swelling raspberry Allergy Facial Verified 12/29/21 17:26 Swelling Assessment & Plan Assessment & Plan (1) Alcohol use disorder, severe, dependence: Status: Acute Code(s): F10.20 - Alcohol dependence, uncomplicated Assessment and Plan: * currently on phenobarb protocol * recovery residential direct support professional to check in over the weekend Total time managing care of this patient today __40__ minutes. [facility] Past Medical History Medical History Alcohol abuse Asthma COPD (chronic obstructive pulmonary disease) DVT (deep venous thrombosis) Neuropathy Subdural hematoma Social History Social History Alcohol intake: current Alcohol intake frequency: 3 or more drinks per day Alcohol type: hard liquor Patient Tobacco Use Status: Current everyday Tobacco user Smoked in Last 30 Days: Yes Use of substances other than those prescribed or required for medical reasons: Unable to respond Substance Use Type: Marijuana Advance Directives: No Advance Directives Information Provided: No service: No Current occupational status: disabled
--- NOTE | 2022-02-06 19:45 | PC.NURSE ---
Pt has been resting comfortably on stretcher throughout this shift so far. Pt denies pain at this time. Pt on board with plan to admit then find detox facility
--- NOTE | 2022-02-06 19:59 | PC.NURSE ---
attempted to call report Vidya, maki johnson
[2022-02-06] MEDS: PHENobarbitaL 15 MG TABLET 45 MG PO (21:21)
[2022-02-06] MEDS: Melatonin 3 MG TABLET 6 MG PO (23:45)
[2022-02-07] MEDS: Albuterol/Iprat 2.5/0.5MG 3 ML AMPUL.NEB INHALE (03:25)
[2022-02-07 03:28] VITALS: PULSE 81; RESP 18; O2SAT 97
[2022-02-07 03:59] VITALS: BP 139/63; PULSE 72; RESP 18; TEMP 36.2; O2SAT 100
[2022-02-07] MEDS: cefTRIAXone sodium 1 GM in 0.9 % Sodium Chloride 50 ML IV (04:33)
[2022-02-07 07:31] VITALS: BP 127/65; PULSE 72; RESP 19; TEMP 36.4; O2SAT 99
[2022-02-07] MEDS: Famotidine 20 MG TABLET PO (08:39)
[2022-02-07] MEDS: Thiamine HCL 100 MG TABLET PO (08:39)
[2022-02-07] MEDS: PHENobarbitaL 15 MG TABLET 45 MG PO (08:39)
[2022-02-07] MEDS: Folic Acid 1 MG TABLET PO (08:39)
[2022-02-07] MEDS: 0.9 % Sodium Chloride Flush 3 ML SYRINGE IVFLUSH (08:40)
--- NOTE | 2022-02-07 09:04 | P.DS_ITS ---
DS: Providers Provider Date of Service: 02/07/22 Date of admission: 02/06/22 11:06 Primary care physician: Cristhian Delgado MD Consults: 02/06/22 04:00 Addiction Medicine Routine Consulting Provider: Addiction Covering Reason for consultation: alcohol use disorder Consult to Care Team Routine Comment: Reason for consultation: alcohol use disorder DS: Diagnosis Discharge Diagnosis (1) Alcohol use disorder, severe, dependence: Status: Acute DS: Summary Hospital Course Hospital Course: Chief Complaint: Alcohol withdrawal This is a 61-year-old male with pertinent history of alcohol use disorder, tobacco use disorder, DVT on Eliquis presents to the emergency department for concerns of alcohol withdrawal.? Patient states he drinks whiskey every day, unknown amount.? Patient stopped drinking for 4 days and underwent symptoms of withdrawal including nausea, vomiting, sweating.? To relieve symptoms, patient again had whiskey on the morning of 02/05.? He presented to the ER as he states that he has been starting to have similar complaints.? Has experienced withdrawal before.? Patient states he has not eaten much over the last 4 days as he was not feeling well.? No fever or chills.? Also has symptoms of gastroesophageal reflux disease.? No blood in vomitus.? Also noticed that his urine changed color an order and has been having urinary hesitancy.? No change in bowel habits.? Patient denies chest discomfort, palpitations, shortness of breath.? Also smokes about a pack of cigarettes per day. Hospital cours: He presented to the ED with concern of alcohol withdrawal after abruptly stoppi ng alcohol on his own--noted to have nausea, sweating, lab work showed lactic of 7.5, magnesium of 1.5. He was admitted for alcohol withdrawal and started on Phenobarbital. Lactic acidosis which was not related to sepsis but rather alcoholism was treated with IVF and has come down signficantly, low magnesium which is related to alcoholism was replaced. He has been seen by the adiction and recovery team and given resources to aid in stopping alcohol use Time Spent with Patient Discharge coordination time: Greater than 30 minutes Quality: Safe Use of Opioids Does Pt have an Active Cancer Diagnosis on the Problem List?: No Quality: Stroke Does the patient have a stroke diagnosis?: No Physical Exam Vital Signs: Vital Signs: Last Vital Signs Temp 97.5 F 02/07/22 07:31 Pulse 72 02/07/22 07:31 Resp 19 02/07/22 07:31 BP 127/65 02/07/22 07:31 Pulse Ox 99 02/07/22 07:31 O2 Del Method 02/07/22 07:31 BMI result Body Mass Index 22.6 Discharge Plan Discharge Anticipated Discharge Date/Time: 02/07/22 09:01 Patient Disposition: Home, Self-Care Discharge Diagnosis: alcoholic withdrawal Referrals: Cristhian Delgado MD [Primary Care Provider] - 1 Week Discharge Medications: Continued albuterol sulfate [ProAir HFA] 90 mcg/actuation HFA aerosol inhaler 2 puff inhalation Q4-6H PRN (Reason: Wheezing) Qty: 8.5 0RF Eliquis 5 mg tablet 5 mg PO BID Qty: 60 0RF docusate sodium [DOK] 100 mg tablet 100 mg PO BID Combivent Respimat 20-100 mcg/actuation mist 1 puff inhalation QID Diet: Advance to usual diet Activity on Discharge: As tolerated Stand Alone Forms: Patient Portal Discharge page Care Plan Goals: Sobriety from alcohol Health Concerns: alcoholism Plan of Treatment: Avoid alcohol at all cost follow resources given to you by recovery team Assessment: as above
--- NOTE | 2022-02-07 09:08 | P.PNIM_ITS ---
Subjective Subjective Date of Service: 02/07/22 Interval History: f/u on alcohol withdrawal uti interval history: no n/v, no tremors, no psychomoto agitations Review of Systems no tremors, no sweating no fever Physical Exam Vital Signs: Vital Signs: Last Vital Signs Temp 97.5 F 02/07/22 07:31 Pulse 72 02/07/22 07:31 Resp 19 02/07/22 07:31 BP 127/65 02/07/22 07:31 Pulse Ox 99 02/07/22 07:31 O2 Del Method 02/07/22 07:31 BMI result Body Mass Index 22.6 Objective Data Active Medications Acetaminophen (Acetaminophen 325 Mg Tablet) 650 mg PO Q6H PRN PRN Reason: Pain, Mild (Pain Scale 1-3) Al Hydroxide/Mg Hydroxide (Magnesium Hydrox/Alum Hydrox 30 Ml Oral.Susp) 30 ml PO Q4H PRN PRN Reason: Dyspepsia Last Admin: 02/06/22 23:46 Dose: 30 ml Documented By: JOSHUA Albuterol/Ipratropium (Albuterol/Iprat 2.5/0.5mg 3 Ml Ampul.Neb) 3 ml INHALE RQ4H PRN PRN Reason: wheezing Last Admin: 02/07/22 03:25 Dose: 3 ml Documented By: NICOLLE Famotidine (Famotidine 20 Mg Tablet) 20 mg PO DAILY [facility] Last Admin: 02/07/22 08:39 Dose: 20 mg Documented By: ULI Folic Acid (Folic Acid 1 Mg Tablet) 1 mg PO DAILY [facility] Last Admin: 02/07/22 08:39 Dose: 1 mg Documented By: ULI Ceftriaxone Sodium 1 gm/ (Sodium Chloride) 50 mls @ 100 mls/hr IV Q24H [facility] Last Infusion: 02/07/22 05:08 Dose: 0 mls/hr Documented By: JOSHUA Melatonin (Melatonin 3 Mg Tablet) 6 mg PO BEDTIME PRN PRN Reason: Insomnia Last Admin: 02/06/22 23:45 Dose: 6 mg Documented By: JOSHUA Ondansetron HCl (Ondansetron Hcl 4 Mg/2 Ml Vial) 4 mg IVPUSH Q8H PRN PRN Reason: Nausea and Vomiting Pharmacy Consult (Consult Rx Etoh Phenob Im/Po) 1 each MISCELLANE ONCE PRN; Protocol PRN Reason: Consult order Pharmacy Consult (Consult Rx Perform Med Rec) 1 each MISCELLANE ONCE PRN PRN Reason: Consult order Phenobarbital (Phenobarbital 15 Mg Tablet) 45 mg PO BID [facility]; Protocol Stop: 02/08/22 09:01 Last Admin: 02/07/22 08:39 Dose: 45 mg Documented By: ULI Phenobarbital (Phenobarbital 30 Mg Tablet) 30 mg PO BID [facility]; Protocol Stop: 02/10/22 09:01 Phenobarbital (Phenobarbital 30 Mg Tablet) 30 mg PO DAILY [facility]; Protocol Stop: 02/12/22 09:01 Sodium Chloride (0.9 % Sodium Chloride Flush 3 Ml Syringe) 3 ml IVFLUSH QSHIFT [facility] Last Admin: 02/07/22 08:40 Dose: 3 ml Documented By: ULI Thiamine HCl (Thiamine Hcl 100 Mg Tablet) 100 mg PO DAILY [facility] Last Admin: 02/07/22 08:39 Dose: 100 mg Documented By: ULI Labs CBC & Chem 7: 02/06/22 04:29 02/06/22 04:29 Assessment and Plan (1) Alcohol use disorder, severe, dependence: Status: Acute (2) UTI (urinary tract infection): Status: Acute Plan This is a 61-year-old male with pertinent history of alcohol use disorder, tobacco use disorder, DVT on Eliquis presents to the emergency department for concerns of alcohol withdrawal. # Alcoholism/alcohol withdrawal--no sings of withdrawal at this time -continue mangament protocol with Phenobarbital, folic acid, thiamine, seen by addiction and recovery team and given resources, i also discussed cessation with him #. Acute lactic acidosis: Due to hypoperfusion in the setting of hypovolemia and alcoholism, trended down with IVF #. Acute UTI: Rocephin, culture pending #. History of DVT, continuen Eliquis #. Tobacco use disorder: Refused nicotine patch #Hypomagnesemia--corrected, recheck DVT prophylaxis: On Eliquis Full code Regular diet Need for inpatient: management of alcohol withdrawal, possible dc later today Time Spent With Patient Time: Total time managing care of this patient today ____ minutes. Quality Stroke Does the patient have a stroke diagnosis?: No VTE Prior VTE?: No VTE Risk Level:: Medical - moderate - high VTE Device Contraindication: Treatment Not Indicated VTE Drug Contraindication: N/A - Med Ordered
[2022-02-07 10:09] LABS: Blood Urea Nitrogen 9 mg/dL (9-16); Calcium 8.7 mg/dL (8.4-10.2); Creatinine Clr Calc Pharmacy 99.3; Estimated Glomerular Filt Rate > 60; Glucose Random 122 mg/dL (60-115); Magnesium 1.9 mg/dL (1.6-2.6)
[2022-02-07 10:20] LABS: Anion Gap 13 (12-20); Carbon Dioxide 27 mmol/L (22-29); Chloride 107 mmol/L (96-108); Potassium 3.3 mmol/L (3.3-5.1); Sodium 144 mmol/L (135-145)
--- NOTE | 2022-02-07 14:37 | MHC.CM.PN ---
DP: PT MEDICALLY CLEARED FOR DC HOME, NO SERVICES. RN AWARE. PT HAS CALLED HIMSELF A [facility].
--- NOTE | 2022-02-07 17:37 | MHC.RECOVSUP ---
Recovery Support note: Patient is a 61 year old Latvian speaking male seen by this marine underwriter to discuss alcohol use and recovery supports. Patient is well known to this marine underwriter and Recovery Team. Patient reports recent ATS admission at [facility] or [facility] within the last two weeks. Reports he typically relapses as soon as he gets home. Discussed relapse prevention strategies and ways to avoid isolation including virtual meetings. Patient reports a desire to stop drinking however acknowledges the difficulty. Patient referenced past traumas, stating he was responsible for his best friends at age 18 and he has been living with the guilt ever since . Patient also reports that a son of his past at 17 in the same month of the year that his friend past away. Patient reports he previously received therapy and found it helpful. Encouraged patient to reconsider starting therapy to work through past trauma. Patient reports he has a Counselor Marriage And Family through [facility] and that he is working with her to get into a [facility] program. Patient states he was previously on naltrexone and is interested in starting this medication again. Education regarding [facility] walk in hours was provided. Discussed case with Alexandra Spicer NP.
== END 2022-02-07 14:44 | disposition home or self-care (01) | DRG 690 ==
LOC: HO.ED 02-06 02:52 → HO.EDOVER 02-06 04:02 → HO.S3 02-06 19:21
PROVIDERS: Nurse Practitioner Family; Admitting Provider Student in an Organized Health Care Education/Training Program; Emergency Provider Emergency Medicine Emergency Medical Services; PCP Internal Medicine; Visit Provider Internal Medicine
DX: N39.0 Urinary tract infection, site not specified (principal); E87.21 Acute metabolic acidosis; F10.239 Alcohol dependence with withdrawal, unspecified; F17.210 Nicotine dependence, cigarettes, uncomplicated; D64.9 Anemia, unspecified; F10.229 Alcohol dependence with intoxication, unspecified; E86.1 Hypovolemia; D69.59 Other secondary thrombocytopenia; E83.42 Hypomagnesemia; Y90.6 Blood alcohol level of 120-199 mg/100 ml; Z20.822 Contact with and (suspected) exposure to COVID-19; Z71.6 Tobacco abuse counseling; Z79.01 Long term (current) use of anticoagulants; Z79.899 Other long term (current) drug therapy
CPT/HCPCS: 0241U; 36415; 71045; 74177; 80048; 80307; 81001; 82077; 83605; 83735; 83880; 84484; 85025; 87086; 93005; 94640; 99285; J0696; J2560; J2930; J3475; Q9967

== ENCOUNTER 2022-02-16 23:26 | Emergency (ER) | payer OTHER, SELFPAY ==
[2022-02-16 23:31] VITALS: BMI 28.2
[2022-02-16 23:43] VITALS: BP 140/82; PULSE 82; RESP 18; TEMP 36.4; O2SAT 94
--- NOTE | 2022-02-17 01:04 | ED_ITS ---
HPI - Alcohol General Chief Complaint: ETOH/Substance Use Stated Complaint: Seeking detox Time Seen by Provider: 02/16/22 23:49 Source: patient Mode of arrival: EMS History of Present Illness HPI narrative: 61-year-old male arrives via EMS stating that he wants to go into detox for alcohol and states that he is ?tired of this life drinking?. He otherwise denies any fever, chills, headache, shortness of breath, chest pain/palpitations and states that he did not take his Eliquis for the evening and otherwise denies any GI or symptoms. Related Data Home Medications Medication Instructions Recorded Confirmed docusate sodium 100 mg tablet (DOK) 100 mg PO BID 02/06/22 02/06/22 ipratropium 20 mcg-albuterol 100 1 puff inhalation QID 02/06/22 02/06/22 mcg/actuation mist for inhalation (Combivent Respimat) Previous Rx's Medication Instructions Recorded apixaban 5 mg tablet (Eliquis) 5 mg PO BID #60 tabs 10/07/21 albuterol sulfate 90 mcg/actuation 2 puff inhalation Q4-6H PRN 12/04/21 aerosol inhaler (ProAir HFA) Wheezing #8.5 grams Allergies Allergy/AdvReac Type Severity Reaction Status Date / Time Peanut Butter Allergy Facial Verified 12/29/21 17:26 Swelling raspberry Allergy Facial Verified 12/29/21 17:26 Swelling Review of Systems Review of Systems: Pertinent positives and negatives as stated in HPI 10 point review of systems is otherwise negative. 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) Alcohol intake: current Alcohol intake frequency: 3 or more drinks per day Alcohol type: hard liquor Patient Tobacco Use Status: Current everyday Tobacco user Tobacco use type: Cigarette Cigarette Packs Per Day: 1 Cigarettes Per Day: 20.0 e-Cigarette/Vaping Use: Never Used Second Hand Smoke Exposure: Yes Substance Use Type: Marijuana Advance Directives: No service: No Current occupational status: disabled Physical Exam ED Vital Signs: Vital Signs - 24 hr 02/16/22 23:43 02/17/22 02:21 02/17/22 05:47 Temperature 97.6 F 98 F 98 F Pulse Rate 82 92 125 H Respiratory Rate 18 17 17 Blood Pressure 140/82 H 109/46 L 119/85 Pulse Oximetry 94 92 94 Oxygen Delivery Method Room Air Room Air Room Air BMI result Body Mass Index 28.2 VITAL SIGNS: Reviewed. GENERAL: Chronically ill, cachectic,, in no acute distress. HEAD: Normocephalic/atraumatic EYES: PERRLA, EOMI EARS: Ext canals without abnormality OROPHARYNX: no oral lesions noted, posterior pharynx clear LUNGS: Normal breath sounds. No adventitious sounds or accessory muscle use. SpO2<94> CARDIOVASCULAR: Regular rate and rhythm without noted murmurs, no JVD or lower extremity edema. ABDOMEN: Soft, non-tender, non-distended with bowel sounds. MUSCULOSKELETAL: No tenderness, deformities, or effusions noted on gross i nspection. EXTREMITIES: No cyanosis, clubbing or edema. SKIN: Inspection of the skin reveals no rashes NEUROLOGIC: Alert and oriented x 3. Strength and sensation to light touch were grossly intact x 4. Course Course Course Narrative: 61-year-old male with history and clinical presentation consistent with request for detox and review of all laboratory and viral testing there are no acute findings and patient was given his evening dose of Eliquis. He is otherwise medically cleared for evaluation by the care team for detox placement. Reevaluation(s) Reevaluation #1: Patient placed in physician observation because the patient needed more time for evaluation by the recovery team. At the time observation was started the patient's vital signs were stable, patient is alert and oriented, neuro: Nonfocal, CV RRR, lungs clear Time: 06:16 Medical Decision Making Lab Data Result Diagrams: 02/17/22 01:14 02/17/22 01:14 Labs: Lab Results 02/17/22 02/17/22 02/17/22 Range/Units 01:14 01:14 01:14 WBC 4.0 L (4.8-10.8) X10*3/uL RBC 4.24 L D (4.60-5.80) X10*6/uL Hgb 11.7 L (14.0-18.0) g/dl Hct 36.2 L D (42.0-52.0) % MCV 85.4 (80.0-98.0) fL MCH 27.6 (27.0-33.0) pg MCHC 32.3 (31.0-36.0) g/dl RDW 17.3 H (11.0-16.0) % Plt Count 219 D (160-400) X10*3/uL MPV 8.5 L (9.4-12.4) fL Immature Gran % (Auto) 0.2 (0.0-0.4) % Neut % (Auto) 35.1 L (45-73) % Lymph % (Auto) 48.3 H (20-40) % [place] % (Auto) 11.7 H (2-11) % Eos % (Auto) 2.5 (0-4) % Baso % (Auto) 2.2 H (0-2) % Lymph # (Auto) 1.9 (1.2-4.9) X10*3/uL [place] # (Auto) 0.5 (0.1-1.2) X10*3/uL Eos # (Auto) 0.1 (0.0-0.4) X10*3/uL Baso # (Auto) 0.1 (0.0-0.2) X10*3/uL Abs Immat Gran (auto) 0.01 (0.00-0.03) X10*3/uL Absolute Neuts (auto) 1.4 L (2.0-8.3) x10*3/uL Absolute Nucleated RBC 0.000 (0.0-0.012) X10*3/uL Nucleated RBC % (auto) 0.0 (0.0-0.2) /100WBC PT 12.5 (10.0-13.1) SEC INR 1.1 (0.9-1.1) Sodium 142 (135-145) mmol/L Potassium 4.1 D (3.3-5.1) mmol/L Chloride 105 (96-108) mmol/L Carbon Dioxide 24 (22-29) mmol/L Anion Gap 17 (12-20) BUN 11 (9-16) mg/dL Creatinine 0.78 (0.5-1.4) mg/dL Estim Creat Clear Calc 98.5 Estimated GFR > 60 Random Glucose 89 (60-115) mg/dL Calcium 8.8 (8.4-10.2) mg/dL Total Bilirubin 0.4 (0.0-1.0) mg/dL AST 64 H (5-37) U/L ALT 61 H (0-40) U/L Alkaline Phosphatase 110 (39-117) U/L Total Protein 7.1 (6.5-8.0) g/dL Albumin 4.1 (3.5-5.0) g/dL Ethyl Alcohol 284 mg/dL COVID-19 (NELY) (Negative) COVID-19 Clin Com 02/17/22 Range/Units 01:31 WBC (4.8-10.8) X10*3/uL RBC (4.60-5.80) X10*6/uL Hgb (14.0-18.0) g/dl Hct (42.0-52.0) % MCV (80.0-98.0) fL MCH (27.0-33.0) pg MCHC (31.0-36.0) g/dl RDW (11.0-16.0) % Plt Count (160-400) X10*3/uL MPV (9.4-12.4) fL Immature Gran % (Auto) (0.0-0.4) % Neut % (Auto) (45-73) % Lymph % (Auto) (20-40) % [place] % (Auto) (2-11) % Eos % (Auto) (0-4) % Baso % (Auto) (0-2) % Lymph # (Auto) (1.2-4.9) X10*3/uL [place] # (Auto) (0.1-1.2) X10*3/uL Eos # (Auto) (0.0-0.4) X10*3/uL Baso # (Auto) (0.0-0.2) X10*3/uL Abs Immat Gran (auto) (0.00-0.03) X10*3/uL Absolute Neuts (auto) (2.0-8.3) x10*3/uL Absolute Nucleated RBC (0.0-0.012) X10*3/uL Nucleated RBC % (auto) (0.0-0.2) /100WBC PT (10.0-13.1) SEC INR (0.9-1.1) Sodium (135-145) mmol/L Potassium (3.3-5.1) mmol/L Chloride (96-108) mmol/L Carbon Dioxide (22-29) mmol/L Anion Gap (12-20) BUN (9-16) mg/dL Creatinine (0.5-1.4) mg/dL Estim Creat Clear Calc Estimated GFR Random Glucose (60-115) mg/dL Calcium (8.4-10.2) mg/dL Total Bilirubin (0.0-1.0) mg/dL AST (5-37) U/L ALT (0-40) U/L Alkaline Phosphatase (39-117) U/L Total Protein (6.5-8.0) g/dL Albumin (3.5-5.0) g/dL Ethyl Alcohol mg/dL COVID-19 (NELY) Negative (Negative) COVID-19 Clin Com See Note Medications Administered Discontinued Medications Generic Name Dose Route Start Last Admin Trade Name Freq PRN Reason Stop Dose Admin Apixaban 5 mg 02/17/22 01:04 02/17/22 01:21 Apixaban 5 Mg Tablet PO 02/17/22 01:05 5 mg ONCE ONE Administration Discharge Plan Discharge Clinical Impression: Alcohol abuse, Alcoholic intoxication Patient Disposition: Still a Patient Prescriptions: No Action albuterol sulfate [ProAir HFA] 90 mcg/actuation HFA aerosol inhaler 2 puff inhalation Q4-6H PRN (Reason: Wheezing) Qty: 8.5 0RF Eliquis 5 mg tablet 5 mg PO BID Qty: 60 0RF docusate sodium [DOK] 100 mg tablet 100 mg PO BID Combivent Respimat 20-100 mcg/actuation mist 1 puff inhalation QID
[2022-02-17] MEDS: Apixaban 5 MG TABLET PO (01:21)
[2022-02-17 01:23] LABS: Basophils Absolute Auto 0.1 X10*3/uL (0.0-0.2); Basophils Percent Auto 2.2 % (0-2); Eosinophils Absolute Auto 0.1 X10*3/uL (0.0-0.4); Eosinophils Percent Auto 2.5 % (0-4); Hematocrit 36.2 % (42.0-52.0); Hemoglobin 11.7 g/dl (14.0-18.0); Imm Gran Abs Auto 0.01 X10*3/uL (0.00-0.03); Imm Gran Pct Auto 0.2 % (0.0-0.4); Lymphocytes Absolute Auto 1.9 X10*3/uL (1.2-4.9); Lymphocytes Percent Auto 48.3 % (20-40); MANUAL DIFF FLAG NO; Mean Corpuscular HGB Conc 32.3 g/dl (31.0-36.0); Mean Corpuscular Hemoglobin 27.6 pg (27.0-33.0); Mean Corpuscular Volume 85.4 fL (80.0-98.0); Mean Platelet Volume 8.5 fL (9.4-12.4); Monocytes Absolute Auto 0.5 X10*3/uL (0.1-1.2); Monocytes Percent Auto 11.7 % (2-11); Neutrophils Absolute Auto 1.4 x10*3/uL (2.0-8.3); Neutrophils Percent Auto 35.1 % (45-73); Platelet Count 219 X10*3/uL (160-400); Red Blood Count 4.24 X10*6/uL (4.60-5.80); Red Cell Distribution Width 17.3 % (11.0-16.0)
[2022-02-17 01:29] LABS: INTERNATIONAL NORM RATIO 1.1 (0.9-1.1); Prothrombin Time 12.5 SEC (10.0-13.1)
[2022-02-17 01:46] LABS: Alanine Aminotransferase 61 U/L (0-40); Albumin Level 4.1 g/dL (3.5-5.0); Alkaline Phosphatase 110 U/L (39-117); Anion Gap 17 (12-20); Aspartate Amino Transferase 64 U/L (5-37); Bilirubin Total 0.4 mg/dL (0.0-1.0); Blood Urea Nitrogen 11 mg/dL (9-16); Calcium 8.8 mg/dL (8.4-10.2); Carbon Dioxide 24 mmol/L (22-29); Chloride 105 mmol/L (96-108); Creatinine Clr Calc Pharmacy 98.5; Estimated Glomerular Filt Rate > 60; Ethanol 284 mg/dL; Glucose Random 89 mg/dL (60-115); Potassium 4.1 mmol/L (3.3-5.1); Sodium 142 mmol/L (135-145); Total Protein 7.1 g/dL (6.5-8.0)
[2022-02-17 01:50] LABS: COVID-19 Test Negative (Negative)
[2022-02-17 02:21] VITALS: BP 109/46; PULSE 92; RESP 17; TEMP 36.6; O2SAT 92
[2022-02-17 05:47] VITALS: BP 119/85; PULSE 125; RESP 17; TEMP 36.6; O2SAT 94
--- NOTE | 2022-02-17 10:43 | MHC.RECOVRN ---
Referral sent to [facility]. Pt aware [facility] ([facility] preferred facilities) do not have availability today.
[2022-02-17 10:52] VITALS: BP 151/82; PULSE 91; RESP 16; TEMP 36.7; O2SAT 95
[2022-02-17] MEDS: chlordiazePOXIDE HCl 25 MG CAPSULE 50 MG PO (11:27)
--- NOTE | 2022-02-17 11:42 | PC.NURSE ---
patient alert, oriented x4. VSS. given librium for withdrawal. will continue to monitor CIWA scale. ambulating to and from the bathroom with strong steady gait using cane. able to make needs known
--- NOTE | 2022-02-17 12:12 | MHC.RECOVRN ---
Pt completing phone intake with [facility].
--- NOTE | 2022-02-17 12:41 | MHC.RECOVRN ---
Pt accepted to [facility]. Provider to send meds to [place] [facility]. Pt will be transported via [facility].
== END 2022-02-17 13:06 | disposition home or self-care (01) ==
PROVIDERS: Emergency Provider Student in an Organized Health Care Education/Training Program; PCP Internal Medicine
DX: F10.220 Alcohol dependence with intoxication, uncomplicated (principal); Y90.8 Blood alcohol level of 240 mg/100 ml or more; Z20.822 Contact with and (suspected) exposure to COVID-19; F17.210 Nicotine dependence, cigarettes, uncomplicated; F12.90 Cannabis use, unspecified, uncomplicated; J45.909 Unspecified asthma, uncomplicated; Z86.718 Personal history of other venous thrombosis and embolism; Z79.01 Long term (current) use of anticoagulants; Z79.899 Other long term (current) drug therapy
CPT/HCPCS: 36415; 80053; 82077; 85025; 85610; 87635; 99284; 99285

== ENCOUNTER 2022-03-02 11:43 | Emergency (ER) | payer OTHER, SELFPAY ==
[2022-03-02 11:59] VITALS: BP 93/55; PULSE 72; RESP 20; TEMP 36.5; O2SAT 97; BMI 22.8
[2022-03-02 12:41] LABS: Prothrombin Time 11.1 SEC (10.0-13.1)
--- NOTE | 2022-03-02 12:53 | MHC.RECOVRN ---
Addendum entered by Carol Jeong 03/02/22 13:34: Referral not sent yet due to lack of documentation and lab results. Will send once resulted. Original Note: Met with pt in ED18 to discuss alcohol use and desire for tx. Pt reports drinking 1 pint of [place] today, usually drinks at least 2 pints daily. Pt reports withdrawal symptoms including tremors, however, does not appear tremulous or to be experiencing withdrawal. Pt prefers [facility] and [facility]. Has recently been to [facility] and discharged after 1 day, does not wish to return. [facility] does not have bed availability. [facility] may have availability today, referral sent. Pt requesting something to eat, RN aware.
--- NOTE | 2022-03-02 13:03 | ED.ALCOHOL ---
HPI - Alcohol General Chief Complaint: ETOH/Substance Use Stated Complaint: ETOH INTOXICATION, WANTS DETOX FOR ETOH Time Seen by Provider: 03/02/22 12:15 Source: patient Mode of arrival: EMS Limitations: no limitations History of Present Illness HPI narrative: Patient is a 61-year-old male who presents to the emergency department via EMS. He is requesting detox due to alcohol abuse. reports that he consumed 1 point of [place] prior to his arrival to the hospital. On a typical day he states he drinks 2 pt is of [place]fort and 1 sleeve of nips a daily. Reports he was recently at to [facility] for detox and he signed himself out. He states he was feeling uncomfortable with other clients which is why he left. When asked he states that he has been told that he has had a seizure in the past, believes that this may be due to alcohol withdrawal as that is the only reason that I go to the hospital . Related Data Home Medications Medication Instructions Recorded Confirmed docusate sodium 100 mg tablet (DOK) 100 mg PO BID 02/06/22 02/06/22 ipratropium 20 mcg-albuterol 100 1 puff inhalation QID 02/06/22 02/06/22 mcg/actuation mist for inhalation (Combivent Respimat) Previous Rx's Medication Instructions Recorded apixaban 5 mg tablet (Eliquis) 5 mg PO BID #60 tabs 10/07/21 albuterol sulfate 90 mcg/actuation 2 puff inhalation Q4-6H PRN 12/04/21 aerosol inhaler (ProAir HFA) Wheezing #8.5 grams albuterol sulfate 90 mcg/actuation 2 puff inhalation Q4-6H PRN 02/17/22 aerosol inhaler (ProAir HFA) shortness of breath or wheezing #8.5 grams apixaban 5 mg tablet (Eliquis) 5 mg PO BID 10 days #20 tabs 02/17/22 ipratropium 20 mcg-albuterol 100 1 puff inhalation QID #4 grams 02/17/22 mcg/actuation mist for inhalation (Combivent Respimat) Allergies Allergy/AdvReac Type Severity Reaction Status Date / Time Peanut Butter Allergy Facial Verified 12/29/21 17:26 Swelling raspberry Allergy Facial Verified 12/29/21 17:26 Swelling Review of Systems Review of Systems: Constitutional: No weight loss, fever, chills, weakness or fatigue. Skin: No rash or itching. Cardiovascular: No chest pain, chest pressure or chest discomfort. No palpitations or pedal edema. Respiratory: No shortness of breath, cough or sputum production. Gastrointestinal: No anorexia, nausea, vomiting or diarrhea. No abdominal pain or blood in stool. Genitourinary: No burning micturition. No urinary frequency or incontinence. Musculoskeletal: No muscle pain, back pain, joint pain or stiffness. Psychiatric: No depression or anxiety. Yes all other systems are reviewed and are negative [facility] Past Medical History Attestation statement: The following information was validated with the patient. 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) Alcohol intake: current Alcohol intake frequency: 3 or more drinks per day Alcohol type: hard liquor Patient Tobacco Use Status: Current everyday Tobacco user Tobacco use type: Cigarette Cigarette Packs Per Day: 1 Cigarettes Per Day: 20.0 Smoked in Last 30 Days: Yes e-Cigarette/Vaping Use: Never Used Second Hand Smoke Exposure: Yes Use of substances other than those prescribed or required for medical reasons: No Substance Use Type: Marijuana Substance Use Frequency: Chronic Longstanding Last Used Substance: Just Prior to Admission Any prior treatment program specific to substance use: Yes Advance Directives: No Advance Directives Information Provided: No service: No Current occupational status: disabled Physical Exam ED Vital Signs: Vital Signs - 24 hr 03/02/22 11:59 Temperature 97.7 F Pulse Rate 72 Respiratory Rate 20 Blood Pressure 93/55 L Pulse Oximetry 97 Oxygen Delivery Method Room Air BMI result Body Mass Index 22.8 Appearance: Alert.?Oriented to person, place and time. No acute distress.?Normal affect. Eyes: Pupils equal, round and reactive to light.? ENT: Pharynx normal.?? Neck: Normal inspection.? Neck supple.?? CVS: Heart sounds normal. Normal heart rate and rhythm.? Pulses normal.?? Respiratory: No respiratory distress.? Lung sounds clear to auscultation bilaterally?? Abdomen: Soft and non-tender. Normoactive bowel sounds. Skin: Skin warm and dry.? Normal skin color.? Extremities: No lower extremity edema.? Neuro: Moves all extremities spontaneously. Sensation intact bilaterally. CN II-XII intact. No focal neuro deficits. Ambulates with normal steady gait. Course Reevaluation(s) Reevaluation #1: A CBC appears consistent with baseline, normocytic anemia not needing transfusion criteria at this time. Mildly elevated transaminases appears consistent with baseline is open. Renal function within normal limits. found to have mild hyperkalemia 5.3; will obtain EKG to check for acute hyperkalemia changes, and patient to receive Lokelma orally. alcohol level of 267 at 13:00. Time: 14:13 Reevaluation #2: Patient declines to have EKG obtained. He states that he would like to be discharged at this time. He no longer expresses interest in detox. He states he would like to return home, he is going to call a cab. [facility]. He is conscious alert and oriented x4, speaking clear full sentences. No respiratory distress. Ambulatory with a steady gait. Patient departed the emergency department in stable condition. Time: 16:00 Medical Decision Making Medical Decision Making [facility] Narrative: Patient is a 61-year-old male who presents to the emergency department requesting assistance with detox from alcohol. He does endorse alcohol consumption prior to arrival. However he is calm, cooperative, conscious alert and oriented x4, ambulatory with a steady gait, no apparent distress. He is without any physical complaints at this time. Will obtain basic labs for medical clearance, and refer to care team for assistance with detox. Lab Data [facility] Lab Attestation statement: I reviewed the patient's lab results. Result Diagrams: 03/02/22 12:57 03/02/22 12:57 Labs: Lab Results 03/02/22 03/02/22 03/02/22 Range/Units 12:16 12:57 12:57 WBC 3.3 L (4.8-10.8) X10*3/uL RBC 4.05 L (4.60-5.80) X10*6/uL Hgb 11.4 L (14.0-18.0) g/dl Hct 35.5 L (42.0-52.0) % MCV 87.7 (80.0-98.0) fL MCH 28.1 (27.0-33.0) pg MCHC 32.1 (31.0-36.0) g/dl RDW 17.4 H (11.0-16.0) % Plt Count 242 (160-400) X10*3/uL MPV 9.8 (9.4-12.4) fL Immature Gran % (Auto) 0.6 H (0.0-0.4) % Neut % (Auto) 29.0 L (45-73) % Lymph % (Auto) 47.9 H (20-40) % [place] % (Auto) 15.2 H (2-11) % Eos % (Auto) 5.8 H (0-4) % Baso % (Auto) 1.5 (0-2) % Lymph # (Auto) 1.6 (1.2-4.9) X10*3/uL [place] # (Auto) 0.5 (0.1-1.2) X10*3/uL Eos # (Auto) 0.2 (0.0-0.4) X10*3/uL Baso # (Auto) 0.1 (0.0-0.2) X10*3/uL Abs Immat Gran (auto) 0.02 (0.00-0.03) X10*3/uL Absolute Neuts (auto) 1.0 L (2.0-8.3) x10*3/uL Absolute Nucleated RBC 0.000 (0.0-0.012) X10*3/uL Nucleated RBC % (auto) 0.0 (0.0-0.2) /100WBC Smear Tech's Comments VERIFIED PT 11.1 (10.0-13.1) SEC INR 1.0 (0.9-1.1) Sodium 144 (135-145) mmol/L Potassium 5.3 H D (3.3-5.1) mmol/L Chloride 110 H (96-108) mmol/L Carbon Dioxide 26 (22-29) mmol/L Anion Gap 13 (12-20) BUN 7 L (9-16) mg/dL Creatinine 0.79 (0.5-1.4) mg/dL Estim Creat Clear Calc 97.6 Estimated GFR > 60 Random Glucose 90 (60-115) mg/dL Calcium 9.2 (8.4-10.2) mg/dL Total Bilirubin 0.4 (0.0-1.0) mg/dL AST 55 H (5-37) U/L ALT 53 H (0-40) U/L Alkaline Phosphatase 89 (39-117) U/L Total Protein 7.5 (6.5-8.0) g/dL Albumin 4.1 (3.5-5.0) g/dL Lipase 27 (8-78) U/L Ethyl Alcohol 267 mg/dL COVID-19 (NELY) (Negative) COVID-19 Clin Com 03/02/22 Range/Units 12:58 WBC (4.8-10.8) X10*3/uL RBC (4.60-5.80) X10*6/uL Hgb (14.0-18.0) g/dl Hct (42.0-52.0) % MCV (80.0-98.0) fL MCH (27.0-33.0) pg MCHC (31.0-36.0) g/dl RDW (11.0-16.0) % Plt Count (160-400) X10*3/uL MPV (9.4-12.4) fL Immature Gran % (Auto) (0.0-0.4) % Neut % (Auto) (45-73) % Lymph % (Auto) (20-40) % [place] % (Auto) (2-11) % Eos % (Auto) (0-4) % Baso % (Auto) (0-2) % Lymph # (Auto) (1.2-4.9) X10*3/uL [place] # (Auto) (0.1-1.2) X10*3/uL Eos # (Auto) (0.0-0.4) X10*3/uL Baso # (Auto) (0.0-0.2) X10*3/uL Abs Immat Gran (auto) (0.00-0.03) X10*3/uL Absolute Neuts (auto) (2.0-8.3) x10*3/uL Absolute Nucleated RBC (0.0-0.012) X10*3/uL Nucleated RBC % (auto) (0.0-0.2) /100WBC Smear Tech's Comments PT (10.0-13.1) SEC INR (0.9-1.1) Sodium (135-145) mmol/L Potassium (3.3-5.1) mmol/L Chloride (96-108) mmol/L Carbon Dioxide (22-29) mmol/L Anion Gap (12-20) BUN (9-16) mg/dL Creatinine (0.5-1.4) mg/dL Estim Creat Clear Calc Estimated GFR Random Glucose (60-115) mg/dL Calcium (8.4-10.2) mg/dL Total Bilirubin (0.0-1.0) mg/dL AST (5-37) U/L ALT (0-40) U/L Alkaline Phosphatase (39-117) U/L Total Protein (6.5-8.0) g/dL Albumin (3.5-5.0) g/dL Lipase (8-78) U/L Ethyl Alcohol mg/dL COVID-19 (NELY) Negative (Negative) COVID-19 Clin Com See Note Medications Administered Discontinued Medications Generic Name Dose Route Start Last Admin Trade Name Freq PRN Reason Stop Dose Admin Sodium Zirconium Cyclosilicate 10 gm 03/02/22 14:10 03/02/22 14:32 Sodium Zirconium Cyclosilicate 10 Gm Powd.Pack PO 03/02/22 14:11 Not Given ONCE ONE Discharge Plan Discharge Clinical Impression: Alcohol use disorder, severe, dependence Patient Disposition: Home, Self-Care Instructions: Abuse of Alcohol (ED), Alcohol Dependence (ED) Additional Instructions: You came to the emergency department requesting detox. You were offered assistance with detox. However you declined to stay. As you mention, you do have contact information for [facility] care, you should consider contacting them should you change your mind and wish to seek detox. You may return to the emergency department with any new or worsening symptoms or concerns. Prescriptions: No Action albuterol sulfate [ProAir HFA] 90 mcg/actuation HFA aerosol inhaler 2 puff inhalation Q4-6H PRN (Reason: Wheezing) Qty: 8.5 0RF Eliquis 5 mg tablet 5 mg PO BID 10 Days Qty: 20 0RF albuterol sulfate [ProAir HFA] 90 mcg/actuation HFA aerosol inhaler 2 puff inhalation Q4-6H PRN (Reason: shortness of breath or wheezing) Qty: 8.5 0RF Combivent Respimat 20-100 mcg/actuation mist 1 puff inhalation QID Qty: 4 0RF Rx Instructions: space evenly during waking hours Eliquis 5 mg tablet 5 mg PO BID Qty: 60 0RF docusate sodium [DOK] 100 mg tablet 100 mg PO BID Combivent Respimat 20-100 mcg/actuation mist 1 puff inhalation QID Referrals: Cristhian Delgado MD [Primary Care Provider] - Interventions: [place]-Suicide Risk Severity Scale Last Done: 03/02/22 12:04 ED Discharge Assessment Last Done: 03/02/22 16:47 Discharge Date/Time: 03/02/22 16:48
[2022-03-02 13:04] LABS: Basophils Absolute Auto 0.1 X10*3/uL (0.0-0.2); Basophils Percent Auto 1.5 % (0-2); Eosinophils Absolute Auto 0.2 X10*3/uL (0.0-0.4); Eosinophils Percent Auto 5.8 % (0-4); Hematocrit 35.5 % (42.0-52.0); Hemoglobin 11.4 g/dl (14.0-18.0); Imm Gran Abs Auto 0.02 X10*3/uL (0.00-0.03); Imm Gran Pct Auto 0.6 % (0.0-0.4); Lymphocytes Absolute Auto 1.6 X10*3/uL (1.2-4.9); Lymphocytes Percent Auto 47.9 % (20-40); MANUAL DIFF FLAG SCAN; Mean Corpuscular HGB Conc 32.1 g/dl (31.0-36.0); Mean Corpuscular Hemoglobin 28.1 pg (27.0-33.0); Mean Corpuscular Volume 87.7 fL (80.0-98.0); Mean Platelet Volume 9.8 fL (9.4-12.4); Monocytes Absolute Auto 0.5 X10*3/uL (0.1-1.2); Monocytes Percent Auto 15.2 % (2-11); Platelet Count 242 X10*3/uL (160-400); Red Blood Count 4.05 X10*6/uL (4.60-5.80); Red Cell Distribution Width 17.4 % (11.0-16.0); SCAN SMEAR FLAG 1; White Blood Count 3.3 X10*3/uL (4.8-10.8)
[2022-03-02 13:22] LABS: COVID-19 Test Negative (Negative); IDNOW Serial# 16C4AD1C
[2022-03-02 13:35] LABS: SLIDE REVIEW VERIFIED
[2022-03-02 13:55] LABS: Alanine Aminotransferase 53 U/L (0-40); Albumin Level 4.1 g/dL (3.5-5.0); Alkaline Phosphatase 89 U/L (39-117); Anion Gap 13 (12-20); Aspartate Amino Transferase 55 U/L (5-37); Bilirubin Total 0.4 mg/dL (0.0-1.0); Blood Urea Nitrogen 7 mg/dL (9-16); Calcium 9.2 mg/dL (8.4-10.2); Carbon Dioxide 26 mmol/L (22-29); Chloride 110 mmol/L (96-108); Creatinine Clr Calc Pharmacy 97.6; Estimated Glomerular Filt Rate > 60; Ethanol 267 mg/dL; Glucose Random 90 mg/dL (60-115); Lipase 27 U/L (8-78); Potassium 5.3 mmol/L (3.3-5.1); Sodium 144 mmol/L (135-145); Total Protein 7.5 g/dL (6.5-8.0)
--- NOTE | 2022-03-02 14:24 | PC.NURSE ---
Pateint ambulates to Bathroom with steady independent using cane which is baseline will notify MD patient wishes to leave and go to [facility] himself.
--- NOTE | 2022-03-02 14:31 | PC.NURSE ---
Patient refusing EKG and ordered medication REPRODUCTIVE SURGEON to speak to patient about leaving ED
--- NOTE | 2022-03-02 15:08 | MHC.RECOVRN ---
Referral sent to [facility]. Currently being reviewed.
--- NOTE | 2022-03-02 15:34 | PC.NURSE ---
Increased agitation noted nancie wants to leave advised his alcohol level is too high, advised patient he would need a sober ride will CTM
--- NOTE | 2022-03-02 15:57 | MHC.RECOVRN ---
Pt declined to continue with referral to [facility].
--- NOTE | 2022-03-02 16:30 | PC.NURSE ---
IV removed SENIOR MEDICAL BILLING SPECIALIST notified patient leaving and is OK with that patient refuses to wait for discharge is not sectioned ambulated throughout department with steady gait independently does not slur words.
--- NOTE | 2022-03-02 16:32 | MHC.EDTECH ---
Pt is refusing to have any labs, the EKG, and his vitals done. He wants to leave AMA. Nurse (George Rosales) and Dr. Greenfield are both aware.SG
== END 2022-03-02 16:48 | disposition home or self-care (01) ==
PROVIDERS: Nurse Practitioner Family; Emergency Provider Student in an Organized Health Care Education/Training Program; PCP Internal Medicine
DX: F10.20 Alcohol dependence, uncomplicated (principal); Y90.8 Blood alcohol level of 240 mg/100 ml or more; F17.210 Nicotine dependence, cigarettes, uncomplicated; Z20.822 Contact with and (suspected) exposure to COVID-19
CPT/HCPCS: 36415; 80053; 82077; 83690; 85025; 85610; 87635; 99284

== ENCOUNTER 2022-03-03 15:26 | Emergency (ER) | payer OTHER, SELFPAY ==
[2022-03-03 15:39] VITALS: BP 103/65; PULSE 76; RESP 20; TEMP 36.3; O2SAT 94; BMI 22.8
--- NOTE | 2022-03-03 16:20 | ED_ITS ---
HPI - Alcohol General Chief Complaint: ETOH/Substance Use Stated Complaint: ETOH INTOX, WANTS HELP PER EMS Time Seen by Provider: 03/03/22 15:28 Source: patient and EMS Mode of arrival: EMS Limitations: no limitations History of Present Illness HPI narrative: 61 yo with history of alcohol use disorder presents seeking detox for alcohol. Patient reports he drinks 2 pints and a sleeve of nips every day. His last drink was just prior to arrival. Patient denies additional substance use. Patient denies SI or HI. Patient with no physical complaints. Related Data Home Medications Medication Instructions Recorded Confirmed docusate sodium 100 mg tablet (DOK) 100 mg PO BID 02/06/22 02/06/22 ipratropium 20 mcg-albuterol 100 1 puff inhalation QID 02/06/22 02/06/22 mcg/actuation mist for inhalation (Combivent Respimat) Previous Rx's Medication Instructions Recorded apixaban 5 mg tablet (Eliquis) 5 mg PO BID #60 tabs 10/07/21 albuterol sulfate 90 mcg/actuation 2 puff inhalation Q4-6H PRN 12/04/21 aerosol inhaler (ProAir HFA) Wheezing #8.5 grams albuterol sulfate 90 mcg/actuation 2 puff inhalation Q4-6H PRN 02/17/22 aerosol inhaler (ProAir HFA) shortness of breath or wheezing #8.5 grams apixaban 5 mg tablet (Eliquis) 5 mg PO BID 10 days #20 tabs 02/17/22 ipratropium 20 mcg-albuterol 100 1 puff inhalation QID #4 grams 02/17/22 mcg/actuation mist for inhalation (Combivent Respimat) Allergies Allergy/AdvReac Type Severity Reaction Status Date / Time Peanut Butter Allergy Facial Verified 12/29/21 17:26 Swelling raspberry Allergy Facial Verified 12/29/21 17:26 Swelling Review of Systems Review of Systems: Yes all other systems are reviewed and are negative Constitutional: Constitutional: Reports no additional constitutional complaints, Denies body ache(s), Denies chills, Denies fever(s), Denies headache(s) and Denies weakness Eyes: Eyes: Reports no additional eye complaints and Denies change in vision ENT: Reports system reviewed and no additional complaints, except as documented, Denies dizziness, Denies headache(s), Denies nasal congestion, Denies nasal discharge and Denies neck pain Cardiovascular: Cardiovascular: Reports no additional cardiovascular complaints, Denies chest pain, Denies leg edema and Denies dyspnea Respiratory: Respiratory: Reports no additional respiratory complaints, Denies cough and Denies dyspnea Gastrointestinal: Gastrointestinal: Reports no additional gastrointestinal complaints, Denies abdominal pain, Denies diarrhea, Denies nausea and Denies vomiting Genitourinary: Genitourinary: Denies urinary incontinence Musculoskeletal: Musculoskeletal: Reports no additional musculoskeletal complaints, Denies back pain, Denies arthralgias, Denies joint swelling, Denies neck pain, Denies numbness and Denies tingling Integumentary/Breasts: Skin/Breast: Reports system reviewed and no additional complaints, except as docu and Denies rash Neurologic: Reports system reviewed and no additional complaints, except as documented, Denies dizziness, Denies headache(s), Denies numbness, Denies tingling and Denies weakness PMFSH Past Medical History Attestation statement: The following information was validated with the patient. 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) Alcohol intake: current Alcohol intake frequency: 3 or more drinks per day Alc ohol type: hard liquor Patient Tobacco Use Status: Current everyday Tobacco user Tobacco use type: Cigarette Cigarette Packs Per Day: 1 Cigarettes Per Day: 20.0 e-Cigarette/Vaping Use: Never Used Second Hand Smoke Exposure: Yes Substance Use Type: Marijuana Advance Directives: No Advance Directives Information Provided: No service: No Current occupational status: disabled Physical Exam ED Vital Signs: Vital Signs - 24 hr 03/03/22 15:39 Temperature 97.4 F Pulse Rate 76 Respiratory Rate 20 Blood Pressure 103/65 Pulse Oximetry 94 Oxygen Delivery Method Room Air BMI result Body Mass Index 22.8 Const General: cooperative, healthy appearing, comfortable and no acute distress Orientation/consciousness: patient oriented x3 Limitations: no limitations HENMT Head: Yes normal to inspection Ears: hearing grossly normal bilaterally Eyes General: appearance normal, both eyes and all related structures Pupils: Equal, round and reactive pupils present Neck Neck: Yes normal visual inspection, Yes full ROM and Yes no lymphadenopathy Chest Chest palpation & inspection: normal inspection of the chest Resp Effort & Inspection: normal respiratory effort Auscultation: clear to auscultation bilaterally Cardio Rate: regular rate Rhythm: regular rhythm Peripheral pulses: Peripheral pulses 2+ throughout GI Inspection: Yes normal to inspection Palpation (GI): Soft to palpation and nontender Skin General skin exam: no rashes or lesions noted Neuro General: patient oriented x3 and moves all extremities Cranial nerves: Yes Equal, round and reactive pupils present Cognition (Neuro): normal cognition Course Course Course Narrative: Spoke to head field hockey coach who will see patient. Reevaluation(s) Reevaluation #1: [id number]-patient will likely be able to do an intake with [facility] at 18:00 for detox. Labs are reviewed and unchanged from previous. EKG and tox screen pending. Medical Decision Making Medical Decision Making [facility] Narrative: 61-year-old male here seeking detox for alcohol. No concern for trauma No physical complaint Last drink just prior to arrival Will obtain labs, COVID screen, obtain head field hockey coach of Differential Diagnosis Differential Diagnoses: The differential diagnosis associated with the presentation includes alcohol withdrawal, alcohol use disorder Lab Data [facility] Lab Attestation statement: I reviewed the patient's lab results. Result Diagrams: 03/03/22 17:19 03/03/22 17:19 Labs: Lab Results 03/03/22 03/03/22 03/03/22 Range/Units 17:19 17:19 17:19 WBC 4.2 L (4.8-10.8) X10*3/uL RBC 4.15 L (4.60-5.80) X10*6/uL Hgb 12.0 L (14.0-18.0) g/dl Hct 36.7 L (42.0-52.0) % MCV 88.4 (80.0-98.0) fL MCH 28.9 (27.0-33.0) pg MCHC 32.7 (31.0-36.0) g/dl RDW 17.7 H (11.0-16.0) % Plt Count 291 (160-400) X10*3/uL MPV 9.1 L (9.4-12.4) fL Immature Gran % (Auto) 0.2 (0.0-0.4) % Neut % (Auto) 31.0 L (45-73) % Lymph % (Auto) 53.3 H (20-40) % [place] % (Auto) 9.8 (2-11) % Eos % (Auto) 3.8 (0-4) % Baso % (Auto) 1.9 (0-2) % Lymph # (Auto) 2.2 (1.2-4.9) X10*3/uL [place] # (Auto) 0.4 (0.1-1.2) X10*3/uL Eos # (Auto) 0.2 (0.0-0.4) X10*3/uL Baso # (Auto) 0.1 (0.0-0.2) X10*3/uL Abs Immat Gran (auto) 0.01 (0.00-0.03) X10*3/uL Absolute Neuts (auto) 1.3 L (2.0-8.3) x10*3/uL Absolute Nucleated RBC 0.000 (0.0-0.012) X10*3/uL Nucleated RBC % (auto) 0.0 (0.0-0.2) /100WBC Sodium 145 (135-145) mmol/L Potassium 4.5 (3.3-5.1) mmol/L Chloride 108 (96-108) mmol/L Carbon Dioxide 29 (22-29) mmol/L Anion Gap 13 (12-20) BUN 10 (9-16) mg/dL Creatinine 0.89 (0.5-1.4) mg/dL Estim Creat Clear Calc 86.5 Estimated GFR > 60 Random Glucose 93 (60-115) mg/dL Calcium 9.2 (8.4-10.2) mg/dL Total Bilirubin 0.4 (0.0-1.0) mg/dL Direct Bilirubin 0.2 (0.0-0.5) mg/dL AST 52 H (5-37) U/L ALT 53 H (0-40) U/L Alkaline Phosphatase 99 (39-117) U/L Total Protein 7.7 (6.5-8.0) g/dL Albumin 4.5 (3.5-5.0) g/dL Ethyl Alcohol mg/dL COVID-19 ([facility]) Negative (Negative) COVID-19 Clin Com See Note 03/03/22 Range/Units 17:19 WBC (4.8-10.8) X10*3/uL RBC (4.60-5.80) X10*6/uL Hgb (14.0-18.0) g/dl Hct (42.0-52.0) % MCV (80.0-98.0) fL MCH (27.0-33.0) pg MCHC (31.0-36.0) g/dl RDW (11.0-16.0) % Plt Count (160-400) X10*3/uL MPV (9.4-12.4) fL Immature Gran % (Auto) (0.0-0.4) % Neut % (Auto) (45-73) % Lymph % (Auto) (20-40) % [place] % (Auto) (2-11) % Eos % (Auto) (0-4) % Baso % (Auto) (0-2) % Lymph # (Auto) (1.2-4.9) X10*3/uL [place] # (Auto) (0.1-1.2) X10*3/uL Eos # (Auto) (0.0-0.4) X10*3/uL Baso # (Auto) (0.0-0.2) X10*3/uL Abs Immat Gran (auto) (0.00-0.03) X10*3/uL Absolute Neuts (auto) (2.0-8.3) x10*3/uL Absolute Nucleated RBC (0.0-0.012) X10*3/uL Nucleated RBC % (auto) (0.0-0.2) /100WBC Sodium (135-145) mmol/L Potassium (3.3-5.1) mmol/L Chloride (96-108) mmol/L Carbon Dioxide (22-29) mmol/L Anion Gap (12-20) BUN (9-16) mg/dL Creatinine (0.5-1.4) mg/dL Estim Creat Clear Calc Estimated GFR Random Glucose (60-115) mg/dL Calcium (8.4-10.2) mg/dL Total Bilirubin (0.0-1.0) mg/dL Direct Bilirubin (0.0-0.5) mg/dL AST (5-37) U/L ALT (0-40) U/L Alkaline Phosphatase (39-117) U/L Total Protein (6.5-8.0) g/dL Albumin (3.5-5.0) g/dL Ethyl Alcohol 302 H* mg/dL COVID-19 (NELY) (Negative) COVID-19 Clin Com Independent Interpretation I performed an independent interpretation of an: EKG Interpretation: Independently reviewed the EKG which shows normal sinus rhythm with rate of 75, normal DE, normal QRS, normal QT. Unchanged from previous EKG Independent Historian Clinical information obtained from an independent historian. History obtained from or confirmed by: EMS Social Determinants Alcohol use disorder Discharge Plan Discharge Clinical Impression: Alcohol abuse Patient Disposition: Still a Patient Instructions: Alcohol Use Disorder (ED) Additional Instructions: Go direct to detox Prescriptions: No Action albuterol sulfate [ProAir HFA] 90 mcg/actuation HFA aerosol inhaler 2 puff inhalation Q4-6H PRN (Reason: Wheezing) Qty: 8.5 0RF Eliquis 5 mg tablet 5 mg PO BID 10 Days Qty: 20 0RF albuterol sulfate [ProAir HFA] 90 mcg/actuation HFA aerosol inhaler 2 puff inhalation Q4-6H PRN (Reason: shortness of breath or wheezing) Qty: 8.5 0RF Combivent Respimat 20-100 mcg/actuation mist 1 puff inhalation QID Qty: 4 0RF Rx Instructions: space evenly during waking hours Eliquis 5 mg tablet 5 mg PO BID Qty: 60 0RF docusate sodium [DOK] 100 mg tablet 100 mg PO BID Combivent Respimat 20-100 mcg/actuation mist 1 puff inhalation QID
[2022-03-03 17:23] LABS: MANUAL DIFF FLAG NO
[2022-03-03 17:32] LABS: Basophils Absolute Auto 0.1 X10*3/uL (0.0-0.2); Basophils Percent Auto 1.9 % (0-2); Eosinophils Absolute Auto 0.2 X10*3/uL (0.0-0.4); Eosinophils Percent Auto 3.8 % (0-4); Hematocrit 36.7 % (42.0-52.0); Imm Gran Abs Auto 0.01 X10*3/uL (0.00-0.03); Imm Gran Pct Auto 0.2 % (0.0-0.4); Lymphocytes Absolute Auto 2.2 X10*3/uL (1.2-4.9); Lymphocytes Percent Auto 53.3 % (20-40); Mean Corpuscular HGB Conc 32.7 g/dl (31.0-36.0); Mean Corpuscular Hemoglobin 28.9 pg (27.0-33.0); Mean Corpuscular Volume 88.4 fL (80.0-98.0); Mean Platelet Volume 9.1 fL (9.4-12.4); Monocytes Absolute Auto 0.4 X10*3/uL (0.1-1.2); Monocytes Percent Auto 9.8 % (2-11); Neutrophils Absolute Auto 1.3 x10*3/uL (2.0-8.3); Platelet Count 291 X10*3/uL (160-400); Red Blood Count 4.15 X10*6/uL (4.60-5.80); Red Cell Distribution Width 17.7 % (11.0-16.0); White Blood Count 4.2 X10*3/uL (4.8-10.8)
--- NOTE | 2022-03-03 17:36 | ECG_ITS ---
Test Reason : DETOX Blood Pressure : / mmHG Vent. Rate : 075 BPM Atrial Rate : 075 BPM P-R Int : 144 ms QRS Dur : 126 ms QT Int : 410 ms P-R-T Axes : 085 -66 055 degrees QTc Int : 457 ms Normal sinus rhythm Right bundle branch block Left anterior fascicular block Bifascicular block Abnormal ECG When compared with ECG of 05-FEB-2022 18:44, No significant change was found Referred By: Katey Chacon Electronically Signed By:RENEE TRAMMELL
[2022-03-03 17:37] LABS: COVID-19 Test Negative (Negative); IDNOW Serial# 16C4AD1C
[2022-03-03 17:42] LABS: Alanine Aminotransferase 53 U/L (0-40); Albumin Level 4.5 g/dL (3.5-5.0); Alkaline Phosphatase 99 U/L (39-117); Anion Gap 13 (12-20); Aspartate Amino Transferase 52 U/L (5-37); Bilirubin Direct 0.2 mg/dL (0.0-0.5); Bilirubin Total 0.4 mg/dL (0.0-1.0); Blood Urea Nitrogen 10 mg/dL (9-16); Calcium 9.2 mg/dL (8.4-10.2); Carbon Dioxide 29 mmol/L (22-29); Chloride 108 mmol/L (96-108); Creatinine Clr Calc Pharmacy 86.5; Estimated Glomerular Filt Rate > 60; Glucose Random 93 mg/dL (60-115); Potassium 4.5 mmol/L (3.3-5.1); Sodium 145 mmol/L (135-145); Total Protein 7.7 g/dL (6.5-8.0)
[2022-03-03 17:52] LABS: Ethanol 302 mg/dL
--- NOTE | 2022-03-03 18:38 | MHC.RECOVSUP ---
? Reason for consult Recovery Support o Current location: ED18H o Identified substance use concern: Alcohol - Seeking ATS (detox) - Support ? Intervention: o Community resources provided o Harm reduction discussion ? Plan: o Referral to [facility] o Bed search in progress to o Patient awaiting crisis evaluation o Patient to follow up with [facility] after discharge ? Additional information: Met with patient he was trying to get to a detox.. He had two potential [facility]. [facility] and they both didnt work out.. 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 I sugestted that he call his project coach to help him find a place for him.
== END 2022-03-03 18:50 | disposition home or self-care (01) ==
PROVIDERS: Nurse Practitioner Family; Emergency Provider Student in an Organized Health Care Education/Training Program
DX: F10.10 Alcohol abuse, uncomplicated (principal); Y90.8 Blood alcohol level of 240 mg/100 ml or more; Z20.822 Contact with and (suspected) exposure to COVID-19; Z86.718 Personal history of other venous thrombosis and embolism; Z79.01 Long term (current) use of anticoagulants; Z79.899 Other long term (current) drug therapy
CPT/HCPCS: 36415; 80048; 80076; 82077; 85025; 87635; 93005; 99283

== ENCOUNTER 2022-03-04 10:14 | Emergency (ER) | payer OTHER, SELFPAY ==
[2022-03-04 10:23] VITALS: BP 111/64; BP 128/76; PULSE 79; PULSE 82; RESP 18; TEMP 36.5; O2SAT 96; O2SAT 98; BMI 21.9
[2022-03-04 10:48] VITALS: BP 100/58; PULSE 72; RESP 16; O2SAT 93
--- NOTE | 2022-03-04 11:08 | ED.ALCOHOL ---
HPI - Alcohol General Chief Complaint: ETOH/Substance Use Stated Complaint: ETOH,SEEKING DETOX Time Seen by Provider: 03/04/22 10:35 Source: patient Mode of arrival: EMS Limitations: no limitations History of Present Illness HPI narrative: 61-year-old male who presents emergency department for evaluation alcohol use disorder, nausea and vomiting times 3-4 days. Patient's states that he drinks 2 pt and 10 nips of [place] per day. His last drink was this morning. States that over the last 3-4 days he has had nausea and vomiting. He has vomited 3 to 4 times a day with no blood in his emesis. He denied dark tarry stools or diarrhea. Patient states that he has been multiple detox programs in the past wants to get into a detox program again. States that if he stops drinking he gets shakes and has not been able to stop drinking without getting. He denied fever, chills, rhinorrhea, sore throat. He states that he has a cough but this is chronic secondary to his COPD and his smoking. Denied chest pain, shortness of breath, dyspnea on exertion. He denied frequency, urgency or dysuria. Related Data Home Medications Medication Instructions Recorded Confirmed docusate sodium 100 mg tablet (DOK) 100 mg PO BID 02/06/22 02/06/22 ipratropium 20 mcg-albuterol 100 1 puff inhalation QID 02/06/22 02/06/22 mcg/actuation mist for inhalation (Combivent Respimat) Previous Rx's Medication Instructions Recorded apixaban 5 mg tablet (Eliquis) 5 mg PO BID #60 tabs 10/07/21 albuterol sulfate 90 mcg/actuation 2 puff inhalation Q4-6H PRN 12/04/21 aerosol inhaler (ProAir HFA) Wheezing #8.5 grams albuterol sulfate 90 mcg/actuation 2 puff inhalation Q4-6H PRN 02/17/22 aerosol inhaler (ProAir HFA) shortness of breath or wheezing #8.5 grams apixaban 5 mg tablet (Eliquis) 5 mg PO BID 10 days #20 tabs 02/17/22 ipratropium 20 mcg-albuterol 100 1 puff inhalation QID #4 grams 02/17/22 mcg/actuation mist for inhalation (Combivent Respimat) Allergies Allergy/AdvReac Type Severity Reaction Status Date / Time Peanut Butter Allergy Facial Verified 12/29/21 17:26 Swelling raspberry Allergy Facial Verified 12/29/21 17:26 Swelling Review of Systems Review of Systems: Yes all other systems are reviewed and are negative [facility] Past Medical History [facility] Narrative: Social history: He smokes 1 pack of cigarettes per day times many years. The patient drinks significant amount of alcohol per day reports drinking 2 pt and 10 nips of [place] daily with his last drink being this morning. 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) Alcohol intake: current Alcohol intake frequency: 3 or more drinks per day Alcohol type: hard liquor Patient Tobacco Use Status: Current everyday Tobacco user Tobacco use type: Cigarette Cigarette Packs Per Day: 1 Cigarettes Per Day: 20.0 Smoked in Last 30 Days: Yes e-Cigarette/Vaping Use: Never Used Second Hand Smoke Exposure: Yes Use of substances other than those prescribed or required for medical reasons: Yes Substance Use Type: Marijuana Substance Use Frequency: Occasionally Advance Directives: No Advance Directives Information Provided: Yes service: No Current occupational status: disabled Physical Exam ED Vital Signs: Vital Signs - 24 hr 03/04/22 10:23 03/04/22 10:48 Temperature 97.7 F Pulse Rate 79 72 Respiratory Rate 18 16 Blood Pressure 111/64 100/58 L Pulse Oximetry 96 93 Oxygen Delivery Method Room Air Room Air BMI result Body Mass Index 21.9 Const General: cooperative and no acute distress Orientation/consciousness: oriented to person and oriented to place Limitations: no limitations HENMT Head: Yes normal to inspection, Yes normocephalic and Yes atraumatic Ears: external ears normal General nose exam: Normal external nose present Face and sinus: Yes normal facial exam Mouth: Normal oral and palatal mucosa present Throat: Yes posterior oropharynx normal Eyes General: appearance normal, both eyes and all related structures Pupils: Equal, round and reactive pupils present Neck Neck: Yes normal visual inspection, Yes no lymphadenopathy, Yes trachea midline and Yes supple Chest Chest palpation & inspection: normal inspection of the chest and normal palpation of entire chest wall Resp Effort & Inspection: normal respiratory effort and able to speak in complete sentences Auscultation: clear to auscultation bilaterally Cardio Rate: regular rate Rhythm: regular rhythm Heart sounds: S1 normal heart sound present, S2 normal heart sound present and no murmurs GI Inspection: Yes normal to inspection Palpation (GI): Soft to palpation, nontender and no guarding Auscultation: normal bowel sounds General: Yes no CVA tenderness Back/Spine/Pelvis Back: no CVA tenderness Skin General skin exam: no rashes or lesions noted Neuro General: oriented to person and oriented to place Cranial nerves: Yes CN's II-XII intact bilaterally and Yes Equal, round and reactive pupils present Cognition (Neuro): normal cognition Motor exam (neuro): 5/5 motor strength present throughout Extrem General: Yes normal to inspection Psych Appearance: grossly normal Speech and movement: Normal speech and movement present Affect: normal affect Attitude: cooperative Thought process: Normal thought process present Thought content: Normal thought content present Medical Decision Making Medical Decision Making MDM Narrative: 61-year-old male with a history of COPD, chronic DVTs on Eliquis, alcohol use disorder who presents emergency department for evaluation of 3-4 days nausea vomiting and requesting evaluation for alcohol detox. Patient's last drink was this morning. Vital signs were unremarkable. Patient's exam revealed no significant abdominal tenderness. I ordered a CBC, CMP, lipase, alcohol level, urine drug screen, COVID-19, influenza and RSV test on the patient. I ordered normal saline x1 L and Zofran 4 mg IV. I will obtain a substance abuse consult. 1205: Laboratory evaluation: CBC revealed mild anemia with an H&H of 12 and 37.8. Platelet count was normal 235,000. LFTs revealed a slight elevation in his AST and ALT of 39 and 43 which is unchanged from previous values. Blood alcohol level was elevated 299 COVID-19 was negative. The patient was seen by our recovery nurse, Carol Loyd who gave me the following information. Patient has been seen recently in the emergency department several times most recently yesterday on 03/02/2022. Patient has been in multiple detox programs and he was just [facility] on 03/01/2022. She states that despite getting this patient into multiple detox programs, he leaves against medical advice this had no change in his alcoholic behavior. At this time, she states that there is not any rehab center that will take him in and she recommended that he put himself on a Section 35 to try to get further help. Patient states that he has done this in the past and he is embarrassed to do it again. The patient told me that he just wants to leave at this point and does not want to stay in the emergency department anymore. Therefore the patient will be discharged home. Differential Diagnosis Differential diagnosis includes was not limited to pancreatitis, gastritis, gastric ulcer, viral syndrome, alcohol intoxication, alcoholic hepatitis. Consult Healthcare Provider Management of the patient was discussed with: Behavioral Health Provider (Carol loyd, recovery/substance disorder RN) Lab Data [facility] Lab Attestation statement: I reviewed the patient's lab results. See MDM Section Result Diagrams: 03/04/22 11:36 03/04/22 11:36 Labs: Lab Results 03/04/22 03/04/22 Range/Units 11:36 11:36 WBC 5.8 (4.8-10.8) X10*3/uL RBC 4.33 L (4.60-5.80) X10*6/uL Hgb 12.0 L (14.0-18.0) g/dl Hct 37.8 L (42.0-52.0) % MCV 87.3 (80.0-98.0) fL MCH 27.7 (27.0-33.0) pg MCHC 31.7 (31.0-36.0) g/dl RDW 17.6 H (11.0-16.0) % Plt Count 235 (160-400) X10*3/uL MPV 8.9 L (9.4-12.4) fL Immature Gran % (Auto) 0.2 (0.0-0.4) % Neut % (Auto) 58.1 (45-73) % Lymph % (Auto) 29.7 (20-40) % [place] % (Auto) 8.4 (2-11) % Eos % (Auto) 2.6 (0-4) % Baso % (Auto) 1.0 (0-2) % Lymph # (Auto) 1.7 (1.2-4.9) X10*3/uL [place] # (Auto) 0.5 (0.1-1.2) X10*3/uL Eos # (Auto) 0.2 (0.0-0.4) X10*3/uL Baso # (Auto) 0.1 (0.0-0.2) X10*3/uL Abs Immat Gran (auto) 0.01 (0.00-0.03) X10*3/uL Absolute Neuts (auto) 3.4 (2.0-8.3) x10*3/uL Absolute Nucleated RBC 0.000 (0.0-0.012) X10*3/uL Nucleated RBC % (auto) 0.0 (0.0-0.2) /100WBC Sodium 144 (135-145) mmol/L Potassium 4.2 (3.3-5.1) mmol/L Chloride 106 (96-108) mmol/L Carbon Dioxide 28 (22-29) mmol/L Anion Gap 14 (12-20) BUN 10 (9-16) mg/dL Creatinine 0.87 (0.5-1.4) mg/dL Estim Creat Clear Calc 84.8 Estimated GFR > 60 Random Glucose 97 (60-115) mg/dL Calcium 8.8 (8.4-10.2) mg/dL Total Bilirubin 0.4 (0.0-1.0) mg/dL AST 39 H (5-37) U/L ALT 43 H (0-40) U/L Alkaline Phosphatase 103 (39-117) U/L Total Protein 7.3 (6.5-8.0) g/dL Albumin 4.3 (3.5-5.0) g/dL Lipase 19 (8-78) U/L Ethyl Alcohol 299 mg/dL Discharge Plan Discharge Clinical Impression: Alcohol use disorder Alcohol intoxication Qualifiers: Complication of substance-induced condition: uncomplicated Qualified Code(s): F10.920 - Alcohol use, unspecified with intoxication, uncomplicated Vomiting Qualifiers: Vomiting type: unspecified Nausea presence: with nausea Qualified Code(s): R11.2 - Nausea with vomiting, unspecified Patient Disposition: Home, Self-Care Additional Instructions: Unfortunately, we were not able to get you into a detox program at this time since you are just recently at [facility]. Our substance use/ recovery nurse recommended that your only option at this time is to go to the court to file a voluntary Section 35 have yourself committed to a detox program. Follow-up with your doctor in 2 days. Please return to the emergency department if your symptoms get worse or if you develop any symptoms that are concerning to you. Prescriptions: No Action albuterol sulfate [ProAir HFA] 90 mcg/actuation HFA aerosol inhaler 2 puff inhalation Q4-6H PRN (Reason: Wheezing) Qty: 8.5 0RF Eliquis 5 mg tablet 5 mg PO BID 10 Days Qty: 20 0RF albuterol sulfate [ProAir HFA] 90 mcg/actuation HFA aerosol inhaler 2 puff inhalation Q4-6H PRN (Reason: shortness of breath or wheezing) Qty: 8.5 0RF Combivent Respimat 20-100 mcg/actuation mist 1 puff inhalation QID Qty: 4 0RF Rx Instructions: space evenly during waking hours Eliquis 5 mg tablet 5 mg PO BID Qty: 60 0RF docusate sodium [DOK] 100 mg tablet 100 mg PO BID Combivent Respimat 20-100 mcg/actuation mist 1 puff inhalation QID Interventions: [place]-Suicide Risk Severity Scale Last Done: 03/04/22 10:25
--- NOTE | 2022-03-04 11:22 | MHC.RECOVRN ---
Met with pt in ED9 to discuss alcohol use. Pt had presented to [facility] on 03/02 and 03/03 for help with ATS. Pt states I'm here for my alcoholism, I don't know what else to do. Pt prefers [facility] and [facility]. Pt has gone to [facility] recently, left after one day, declines referrals to that facility. [facility] has declined pt today due to having discharged from their ATS on 03/01, he does not meet criteria for ATS admission. [facility] declines pt also due to being there recently. Pt encouraged to follow up with outpatient [facility] support and provided with list of other ATS facilities. Discussed with Alexandra Spicer APRN.
[2022-03-04 11:41] LABS: MANUAL DIFF FLAG NO
[2022-03-04 11:45] LABS: Basophils Absolute Auto 0.1 X10*3/uL (0.0-0.2); Eosinophils Absolute Auto 0.2 X10*3/uL (0.0-0.4); Eosinophils Percent Auto 2.6 % (0-4); Hematocrit 37.8 % (42.0-52.0); Imm Gran Abs Auto 0.01 X10*3/uL (0.00-0.03); Imm Gran Pct Auto 0.2 % (0.0-0.4); Lymphocytes Absolute Auto 1.7 X10*3/uL (1.2-4.9); Lymphocytes Percent Auto 29.7 % (20-40); Mean Corpuscular HGB Conc 31.7 g/dl (31.0-36.0); Mean Corpuscular Hemoglobin 27.7 pg (27.0-33.0); Mean Corpuscular Volume 87.3 fL (80.0-98.0); Mean Platelet Volume 8.9 fL (9.4-12.4); Monocytes Absolute Auto 0.5 X10*3/uL (0.1-1.2); Monocytes Percent Auto 8.4 % (2-11); Neutrophils Absolute Auto 3.4 x10*3/uL (2.0-8.3); Neutrophils Percent Auto 58.1 % (45-73); Platelet Count 235 X10*3/uL (160-400); Red Blood Count 4.33 X10*6/uL (4.60-5.80); Red Cell Distribution Width 17.6 % (11.0-16.0); White Blood Count 5.8 X10*3/uL (4.8-10.8)
[2022-03-04 12:01] LABS: Alanine Aminotransferase 43 U/L (0-40); Albumin Level 4.3 g/dL (3.5-5.0); Alkaline Phosphatase 103 U/L (39-117); Anion Gap 14 (12-20); Aspartate Amino Transferase 39 U/L (5-37); Bilirubin Total 0.4 mg/dL (0.0-1.0); Blood Urea Nitrogen 10 mg/dL (9-16); Calcium 8.8 mg/dL (8.4-10.2); Carbon Dioxide 28 mmol/L (22-29); Chloride 106 mmol/L (96-108); Creatinine Clr Calc Pharmacy 84.8; Estimated Glomerular Filt Rate > 60; Ethanol 299 mg/dL; Glucose Random 97 mg/dL (60-115); Lipase 19 U/L (8-78); Potassium 4.2 mmol/L (3.3-5.1); Sodium 144 mmol/L (135-145); Total Protein 7.3 g/dL (6.5-8.0)
== END 2022-03-04 12:33 | disposition home or self-care (01) ==
PROVIDERS: Emergency Provider Emergency Medicine Emergency Medical Services; PCP Internal Medicine
DX: F10.220 Alcohol dependence with intoxication, uncomplicated (principal); Y90.8 Blood alcohol level of 240 mg/100 ml or more; R11.2 Nausea with vomiting, unspecified; F17.210 Nicotine dependence, cigarettes, uncomplicated; F12.90 Cannabis use, unspecified, uncomplicated; Z86.718 Personal history of other venous thrombosis and embolism; Z79.01 Long term (current) use of anticoagulants; Z79.899 Other long term (current) drug therapy
CPT/HCPCS: 36415; 80053; 82077; 83690; 85025; 99284

== ENCOUNTER 2022-03-04 19:18 | Inpatient (IN) | payer OTHER, SELFPAY ==
--- NOTE | ~2022-03-04 | XR_ITS ---
EXAMINATION: XR CHEST CLINICAL INFORMATION: Cough and fever COMPARISON: Chest radiograph 02/05/2022 TECHNIQUE: 2 views of the chest were obtained. FINDINGS: No significant abnormality is noted involving the heart, lungs, mediastinum, bony thorax or soft tissues. XR/XR chest 2V IMPRESSION: No acute process
[2022-03-04 19:27] VITALS: BP 140/80; PULSE 80; O2SAT 98
[2022-03-04 20:03] VITALS: BP 102/65; PULSE 87; RESP 18; TEMP 36.1; O2SAT 93; BMI 20.7
--- NOTE | 2022-03-04 20:04 | ED.GENADULT ---
HPI - General Adult General Chief complaint: ETOH/Substance Use <HIMA Salvador - Last Filed: 03/04/22 20:08> Stated complaint: seeking detox <HIMA Salvador - Last Filed: 03/04/22 20:08> Time Seen by Provider: 03/04/22 21:24 <HIMA Salvador - Last Filed: 03/04/22 20:08> Source: patient <Helen Moya MD - Last Filed: 03/05/22 02:12> Mode of arrival: ambulatory <Helen Moya MD - Last Filed: 03/05/22 02:12> Limitations: no limitations <Helen Moya MD - Last Filed: 03/05/22 02:12> History of Present Illness HPI narrative: 61-year-old male with history of alcohol use disorder, DVT on Eliquis, with a history of alcohol withdrawal symptoms with previous hospitalization for withdrawal symptoms including withdrawal seizure, patient admit to drinking heavy liquor every day last drink was early this morning, patient is looking for detox, patient started feeling anxious and tremors in the emergency department. Patient was seen yesterday in the emergency department and signed against medical advice because he could not wait and start to develop withdrawal symptoms. <Helen Moya MD - Last Filed: 03/05/22 02:12> Related Data Home medications: Home Medications Medication Instructions Recorded Confirmed docusate sodium 100 mg tablet (DOK) 100 mg PO BID 02/06/22 02/06/22 ipratropium 20 mcg-albuterol 100 1 puff inhalation QID 02/06/22 02/06/22 mcg/actuation mist for inhalation (Combivent Respimat) Previous Rx's Medication Instructions Recorded apixaban 5 mg tablet (Eliquis) 5 mg PO BID #60 tabs 10/07/21 albuterol sulfate 90 mcg/actuation 2 puff inhalation Q4-6H PRN 12/04/21 aerosol inhaler (ProAir HFA) Wheezing #8.5 grams albuterol sulfate 90 mcg/actuation 2 puff inhalation Q4-6H PRN 02/17/22 aerosol inhaler (ProAir HFA) shortness of breath or wheezing #8.5 grams apixaban 5 mg tablet (Eliquis) 5 mg PO BID 10 days #20 tabs 02/17/22 ipratropium 20 mcg-albuterol 100 1 puff inhalation QID #4 grams 02/17/22 mcg/actuation mist for inhalation (Combivent Respimat) <HIMA Salvador - Last Filed: 03/04/22 20:08> Allergies/adverse reactions: Allergies Allergy/AdvReac Type Severity Reaction Status Date / Time Peanut Butter Allergy Facial Verified 03/04/22 20:08 Swelling raspberry Allergy Facial Verified 03/04/22 20:08 Swelling <HIMA Salvador - Last Filed: 03/04/22 20:08> Review of Systems Review of Systems: All other systems are reviewed and are negative Constitutional: Reports as per HPI and Reports no additional constitutional complaints Eyes: Reports as per HPI and Reports no additional eye complaints Reports system reviewed and no additional complaints, except as documented Cardiovascular: Reports as per HPI and Reports no additional cardiovascular complaints Respiratory: Reports as per HPI and Reports no additional respiratory complaints Gastrointestinal: Reports as per HPI and Reports no additional gastrointestinal complaints Genitourinary: Reports no additional female genitourinary complaints Musculoskeletal: Reports no additional musculoskeletal complaints Skin/Breast: Reports system reviewed and no additional complaints, except as docu Psychiatric: Reports no additional psychiatric complaints Endocrine: Reports no additional endocrine complaints Hematologic/Lymphatic: Reports no additional hematologic/lymphatic complaints Allergic/Immunologic: Reports no additional allergic/immunologic complaints Reports system reviewed and no additional complaints, except as documented and Reports Abnormal speech present <Helen Moya MD - Last Filed: 03/05/22 02:12> [facility] Past Medical History Medical History: Medical History Alcohol abuse Asthma COPD (chronic obstructive pulmonary disease) DVT (deep venous thrombosis) Neuropathy Subdural hematoma Tobacco abuse <HIMA Salvador - Last Filed: 03/04/22 20:08> Social History Social History: Social History Household Members: None Housing: House 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) Alcohol intake: current Alcohol intake frequency: 3 or more drinks per day Alcohol type: hard liquor Patient Tobacco Use Status: Current everyday Tobacco user Tobacco use type: Cigarette Cigarette Packs Per Day: 1 Cigarettes Per Day: 20.0 e-Cigarette/Vaping Use: Never Used Second Hand Smoke Exposure: Yes Substance Use Type: Marijuana Advance Directives: No Advance Directives Information Provided: Yes service: No Current occupational status: disabled <HIMA Salvador - Last Filed: 03/04/22 20:08> Physical Exam ED Vital Signs: Vital Signs - 24 hr 03/04/22 20:03 03/05/22 00:57 Temperature 97 F 98.1 F Pulse Rate 87 92 Respiratory Rate 18 18 Blood Pressure 102/65 114/67 Pulse Oximetry 93 92 Oxygen Delivery Method Room Air Room Air BMI result Body Mass Index 20.7 <HIMA Salvador - Last Filed: 03/04/22 20:08> Vital Signs - 24 hr 03/04/22 20:03 03/05/22 00:57 Temperature 97 F 98.1 F Pulse Rate 87 92 Respiratory Rate 18 18 Blood Pressure 102/65 114/67 Pulse Oximetry 93 92 Oxygen Delivery Method Room Air Room Air BMI result Body Mass Index 20.7 vital signs have been reviewed as appeared to be correct. Blood pressure normal. Heart rate normal. Respiration rate normal. Temperature normal. Oxygen saturation normal. <Helen Moya MD - Last Filed: 03/05/22 02:12> Appearance: Anxious, Alert. Oriented X3. No acute distress. involuntary tremors. Head: Normal external exam. Normocephalic. Atraumatic. No Blair signs noted. No raccoon eyes noted Eyes: PERRLA. EOMI. Conjunctiva and sclera normal. Eyelids normal. ENT: TM's Normal. Pharynx normal. Uvula midline. Moist mucous membranes. No trismus noted. No drooling noted. No muffled voice noted. Neck: Normal inspection. Neck supple. FROM. No adenopathy. Thyroid Normal. No meningeal signs. No neck mass noted. CVS: Normal heart rate and rhythm. Heart sound normal. No murmurs noted. Pulses normal throughout. Respiratory: No respiratory distress. Painless inspiration. Breath sounds normal. No wheezes/rales/rhonchi noted. Chest nontender. No accessory muscle usage noted or decreased air movement noted. Abdomen: Soft and nontender. Bowel sounds normal in all 4 quadrants. No distention noted. No organomegaly noted. No visible injury noted. Back: No CVA tenderness. Full range of motion noted. Skin: Skin warm and dry. Normal skin color. Normal skin turgor. No rashes/lesions/lacerations noted. Extremities: No lower extremity edema. Extremities exhibit normal range of motion. Extremities nontender. Neuro: Oriented X 3. Cranial nerve exam: II-XII are grossly intact No motor deficit. No sensory deficit. Reflexes normal. <Helen Moya MD - Last Filed: 03/05/22 02:12> Course Course Course Narrative: RME--61-year-old male with a history of COPD, chronic DVTs on Eliquis, alcohol use disorder who presents emergency department requesting detox. Admits to drinking 1 pint [place] this AM. Denies other drug use. Denies SI/HI Patient was d/c from our facility this AM for similar sx Patient ambulating with steady gait, vital signs stable, no evidence of EtOH withdrawal/tremors or tongue fasciculations Drug screen/ethanol ordered and recovery consult <HIMA Salvador - Last Filed: 03/04/22 20:08> Reevaluation(s) Reevaluation #1: during the interview patient was anxious, having tremors and tongue fasciculation which felt to be early symptoms of withdrawal, Patient had a history of bad withdrawal symptoms including seizure. will start the patient on phenobarb and admit for further evaluation. <Helen Moya MD - Last Filed: 03/05/22 02:12> Time: 02:11 <Helen Moya MD - Last Filed: 03/05/22 02:12> Medications Administered Discontinued Medications Generic Name Dose Route Start Last Admin Trade Name Freq PRN Reason Stop Dose Admin Sodium Chloride 1,000 mls @ 999 mls/hr 03/04/22 21:42 03/04/22 22:51 Ns IV 03/04/22 22:42 Not Given .Q1H1M ONE Phenobarbital Sodium 253.5 mg 03/04/22 22:00 03/04/22 22:58 Phenobarbital Sodium 130 Mg/Ml Im Once IM 03/04/22 22:01 253.5 mg ONCE ONE Administration Protocol <HIMA Salvador - Last Filed: 03/04/22 20:08> Medications Administered Discontinued Medications Generic Name Dose Route Start Last Admin Trade Name Frandy PRN Reason Stop Dose Admin Sodium Chloride 1,000 mls @ 999 mls/hr 03/04/22 21:42 03/04/22 22:51 Ns IV 03/04/22 22:42 Not Given .Q1H1M ONE Phenobarbital Sodium 253.5 mg 03/04/22 22:00 03/04/22 22:58 Phenobarbital Sodium 130 Mg/Ml Im Once IM 03/04/22 22:01 253.5 mg ONCE ONE Administration Protocol <Helen Moya MD - Last Filed: 03/05/22 02:12> Medical Decision Making Differential Diagnosis Differential Diagnoses: The differential diagnosis associated with the presentation includes ( Alcohol withdrawal symptoms, electrolyte disturbance, dehydration.) <Helen Moya MD - Last Filed: 03/05/22 02:12> Admission/Observation Consideration of admission/observation: Escalation of care including admission/observation considered <Helen Moya MD - Last Filed: 03/05/22 02:12> Consult Healthcare Provider Management of the patient was discussed with: Hospitalist <Helen Moya MD - Last Filed: 03/05/22 02:12> Lab Data MDM Lab Attestation statement: I reviewed the patient's lab results. <Helen Moya MD - Last Filed: 03/05/22 02:12> Result Diagrams: : 03/04/22 21:42 <HIMA Salvador - Last Filed: 03/04/22 20:08> Labs: Lab Results 03/04/22 Range/Units 21:42 Sodium 144 (135-145) mmol/L Potassium 4.5 (3.3-5.1) mmol/L Chloride 106 (96-108) mmol/L Carbon Dioxide 25 (22-29) mmol/L Anion Gap 18 (12-20) BUN 13 (9-16) mg/dL Creatinine 0.88 (0.5-1.4) mg/dL Estim Creat Clear Calc 79.1 Estimated GFR > 60 Random Glucose 89 (60-115) mg/dL Calcium 8.9 (8.4-10.2) mg/dL Total Bilirubin 0.4 (0.0-1.0) mg/dL Direct Bilirubin 0.2 (0.0-0.5) mg/dL AST 39 H (5-37) U/L ALT 43 H (0-40) U/L Alkaline Phosphatase 108 (39-117) U/L Total Protein 7.9 (6.5-8.0) g/dL Albumin 4.6 (3.5-5.0) g/dL Lipase 40 (8-78) U/L Ethyl Alcohol 272 mg/dL <HIMA Salvador - Last Filed: 03/04/22 20:08> Lab Results 03/04/22 Range/Units 21:42 Sodium 144 (135-145) mmol/L Potassium 4.5 (3.3-5.1) mmol/L Chloride 106 (96-108) mmol/L Carbon Dioxide 25 (22-29) mmol/L Anion Gap 18 (12-20) BUN 13 (9-16) mg/dL Creatinine 0.88 (0.5-1.4) mg/dL Estim Creat Clear Calc 79.1 Estimated GFR > 60 Random Glucose 89 (60-115) mg/dL Calcium 8.9 (8.4-10.2) mg/dL Total Bilirubin 0.4 (0.0-1.0) mg/dL Direct Bilirubin 0.2 (0.0-0.5) mg/dL AST 39 H (5-37) U/L ALT 43 H (0-40) U/L Alkaline Phosphatase 108 (39-117) U/L Total Protein 7.9 (6.5-8.0) g/dL Albumin 4.6 (3.5-5.0) g/dL Lipase 40 (8-78) U/L Ethyl Alcohol 272 mg/dL <Helen Moya MD - Last Filed: 03/05/22 02:12> Discharge Plan Discharge Clinical Impression: Alcohol use disorder, severe, dependence, Alcohol withdrawal syndrome <HIMA Salvador - Last Filed: 03/04/22 20:08> Patient Disposition: Admitted As Inpatient <HIMA Salvador - Last Filed: 03/04/22 20:08>
--- NOTE | 2022-03-04 21:37 | ED.GENADULT ---
HPI - General Adult General Chief complaint: ETOH/Substance Use Stated complaint: seeking detox Time Seen by Provider: 03/04/22 21:24 Source: patient Mode of arrival: ambulatory Limitations: no limitations Related Data Home Medications Medication Instructions Recorded Confirmed docusate sodium 100 mg tablet (DOK) 100 mg PO BID 02/06/22 02/06/22 ipratropium 20 mcg-albuterol 100 1 puff inhalation QID 02/06/22 02/06/22 mcg/actuation mist for inhalation (Combivent Respimat) Previous Rx's Medication Instructions Recorded apixaban 5 mg tablet (Eliquis) 5 mg PO BID #60 tabs 10/07/21 albuterol sulfate 90 mcg/actuation 2 puff inhalation Q4-6H PRN 12/04/21 aerosol inhaler (ProAir HFA) Wheezing #8.5 grams albuterol sulfate 90 mcg/actuation 2 puff inhalation Q4-6H PRN 02/17/22 aerosol inhaler (ProAir HFA) shortness of breath or wheezing #8.5 grams apixaban 5 mg tablet (Eliquis) 5 mg PO BID 10 days #20 tabs 02/17/22 ipratropium 20 mcg-albuterol 100 1 puff inhalation QID #4 grams 02/17/22 mcg/actuation mist for inhalation (Combivent Respimat) Allergies Allergy/AdvReac Type Severity Reaction Status Date / Time Peanut Butter Allergy Facial Verified 03/04/22 20:08 Swelling raspberry Allergy Facial Verified 03/04/22 20:08 Swelling PMFSH Past Medical History Medical History Alcohol abuse Asthma COPD (chronic obstructive pulmonary disease) DVT (deep venous thrombosis) Neuropathy Subdural hematoma Tobacco abuse Social History Social History Household Members: None Housing: House 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) Alcohol intake: current Alcohol intake frequency: 3 or more drinks per day Alcohol type: hard liquor Patient Tobacco Use Status: Current everyday Tobacco user Tobacco use type: Cigarette Cigarette Packs Per Day: 1 Cigarettes Per Day: 20.0 e-Cigarette/Vaping Use: Never Used Second Hand Smoke Exposure: Yes Substance Use Type: Marijuana Advance Directives: No Advance Directives Information Provided: Yes service: No Current occupational status: disabled Physical Exam ED Vital Signs: Vital Signs - 24 hr 03/04/22 20:03 Temperature 97 F Pulse Rate 87 Respiratory Rate 18 Blood Pressure 102/65 Pulse Oximetry 93 Oxygen Delivery Method Room Air BMI result Body Mass Index 20.7 Discharge Plan Discharge Prescriptions: No Action albuterol sulfate [ProAir HFA] 90 mcg/actuation HFA aerosol inhaler 2 puff inhalation Q4-6H PRN (Reason: Wheezing) Qty: 8.5 0RF Eliquis 5 mg tablet 5 mg PO BID 10 Days Qty: 20 0RF albuterol sulfate [ProAir HFA] 90 mcg/actuation HFA aerosol inhaler 2 puff inhalation Q4-6H PRN (Reason: shortness of breath or wheezing) Qty: 8.5 0RF Combivent Respimat 20-100 mcg/actuation mist 1 puff inhalation QID Qty: 4 0RF Rx Instructions: space evenly during waking hours Eliquis 5 mg tablet 5 mg PO BID Qty: 60 0RF docusate sodium [DOK] 100 mg tablet 100 mg PO BID Combivent Respimat 20-100 mcg/actuation mist 1 puff inhalation QID
[2022-03-04 22:48] LABS: Alanine Aminotransferase 43 U/L (0-40); Albumin Level 4.6 g/dL (3.5-5.0); Alkaline Phosphatase 108 U/L (39-117); Anion Gap 18 (12-20); Aspartate Amino Transferase 39 U/L (5-37); Bilirubin Direct 0.2 mg/dL (0.0-0.5); Bilirubin Total 0.4 mg/dL (0.0-1.0); Blood Urea Nitrogen 13 mg/dL (9-16); Calcium 8.9 mg/dL (8.4-10.2); Carbon Dioxide 25 mmol/L (22-29); Chloride 106 mmol/L (96-108); Creatinine Clr Calc Pharmacy 79.1; Estimated Glomerular Filt Rate > 60; Ethanol 272 mg/dL; Glucose Random 89 mg/dL (60-115); Lipase 40 U/L (8-78); Potassium 4.5 mmol/L (3.3-5.1); Sodium 144 mmol/L (135-145); Total Protein 7.9 g/dL (6.5-8.0)
--- NOTE | 2022-03-04 22:55 | PC.NURSE ---
attempted to medicate pt, explained phenobarb was ordered, pt stopped nurse and asked to speak with MD. Provider aware.
[2022-03-04] MEDS: PHENobarbitaL sodium 130 MG/ML IM ONCE 253.5 MG IM (22:58)
--- NOTE | 2022-03-04 23:01 | PC.NURSE ---
phenobarb given per protocol
[2022-03-05] VITALS (7 sets, daily range): BP systolic 111–125; BP diastolic 65–77; PULSE 81–102; RESP 10–18; TEMP 36.6–37.3; O2SAT 92–98
[2022-03-05] MEDS: PHENobarbitaL sodium 130 MG/ML VIAL IM Q3Hx2 191.1 MG IM ×2 (02:30→05:41)
--- NOTE | 2022-03-05 02:39 | P.HPHOSP_ITS ---
History of Present Illness Date of Service: 03/05/22 Chief Complaint: Alcohol use disorder This is a 61-year-old male with pertinent history of alcohol use disorder, tobacco use disorder, DVT on Eliquis presents to the emergency department for concerns of alcohol withdrawal.? Patient states he drinks whiskey every day, unknown amount.? His last drink was this morning. He presents today as he states he needs help for his alcohol use. Does endorse increased sweating, tremors and nausea. Patient denies chest discomfort, palpitations, shortness of breath.? Also smokes about a pack of cigarettes per day. Patient was seen yesterday in the emergency department and signed AMA as he started to developed withdrawal symptoms. In the emergency department patient was started on phenobarb protocol Review of Systems Constitutional: Constitutional: Reports excessive sweating Cardiovascular: Cardiovascular: Reports no additional cardiovascular complaints Respiratory: Respiratory: Reports no additional respiratory complaints Gastrointestinal: Gastrointestinal: Reports nausea Genitourinary: Genitourinary: Reports no additional male genitourinary complaints Endocrine: Endocrine: Reports excessive sweating [facility] Medical History Alcohol abuse Asthma COPD (chronic obstructive pulmonary disease) DVT (deep venous thrombosis) Neuropathy Subdural hematoma Tobacco abuse Pertinent family history: Does not of significant medical history in family members Social History Household Members: None Housing: House 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) Alcohol intake: current Alcohol intake frequency: 3 or more drinks per day Alcohol type: hard liquor Patient Tobacco Use Status: Current everyday Tobacco user Tobacco use type: Cigarette Cigarette Packs Per Day: 1 Cigarettes Per Day: 20.0 Smoked in Last 30 Days: Yes e-Cigarette/Vaping Use: Never Used Second Hand Smoke Exposure: Yes Use of substances other than those prescribed or required for medical reasons: No Substance Use Type: Marijuana Advance Directives: No Advance Directives Information Provided: Yes service: No Current occupational status: disabled Meds Allergies Allergy/AdvReac Type Severity Reaction Status Date / Time Peanut Butter Allergy Facial Verified 03/04/22 20:08 Swelling raspberry Allergy Facial Verified 03/04/22 20:08 Swelling Active Medications: Current Medications Acetaminophen (Acetaminophen 325 Mg Tablet) 650 mg PO Q6H PRN PRN Reason: Pain, Mild (Pain Scale 1-3) Enoxaparin Sodium (Enoxaparin Sodium 40 Mg/0.4 Ml Syringe) 40 mg SUBCUT Q24H NOHEMI Thiamine HCl 100 mg/ Sodium (Chloride) 101 mls @ 202 mls/hr IV DAILY NOHEMI Melatonin (Melatonin 3 Mg Tablet) 6 mg PO BEDTIME PRN PRN Reason: Insomnia Ondansetron HCl (Ondansetron Hcl 4 Mg/2 Ml Vial) 4 mg IVPUSH Q8H PRN PRN Reason: Nausea and Vomiting Pharmacy Consult (Consult Rx Etoh Phenob Im/Po) 1 each MISCELLANE ONCE PRN; Protocol PRN Reason: Consult order Phenobarbital (Phenobarbital 15 Mg Tablet) 45 mg PO BID [facility]; Protocol Stop: 03/06/22 21:01 Phenobarbital (Phenobarbital 15 Mg Tablet) 15 mg PO BID [facility]; Protocol Stop: 03/08/22 21:01 Phenobarbital (Phenobarbital 15 Mg Tablet) 15 mg PO DAILY [facility]; Protocol Stop: 03/10/22 09:01 Phenobarbital Sodium (Phenobarbital Sodium 130 Mg/Ml Vial Im Q3hx2) 191.1 mg IM Q3H NOHEMI; Protocol Stop: 03/05/22 04:01 Last Admin: 03/05/22 02:30 Dose: 191.1 mg Sodium Chloride (0.9 % Sodium Chloride Flush 3 Ml Syringe) 3 ml IVFLUSH QSHIFT [facility] Home Medications Medication Instructions Recorded Confirmed Last Taken Type docusate sodium 100 mg tablet (DOK) 100 mg PO BID 02/06/22 02/06/22 02/05/22 History ipratropium 20 mcg-albuterol 100 1 puff inhalation QID 02/06/22 02/06/22 Unknown History mcg/actuation mist for inhalation (Combivent Respimat) Physical Exam Vital Signs and Narrative: Vital Signs: Last Vital Signs Temp 98.1 F 03/05/22 00:57 Pulse 92 03/05/22 00:57 Resp 18 03/05/22 00:57 BP 114/67 03/05/22 00:57 Pulse Ox 92 03/05/22 00:57 O2 Del Method 03/05/22 00:57 BMI result Body Mass Index 20.7 Middle-aged male lying in bed in mild distress Neck supple, no JVD Regular rate and rhythm, S1-S2 heard Regular breath sounds bilaterally, no wheezing or crackles appreciated Abdomen soft nontender, no guarding, no rigidity Patient is awake, alert and oriented to self, place, time and person ; no focal motor deficit , tremors+ Psych: Normal mood No pedal edema Results Labs CBC and Chem 7: 03/05/22 02:49 03/04/22 21:42 Labs: Laboratory Results - last 24 hr 03/04/22 21:42 Anion Gap 18 Estim Creat Clear Calc 79.1 Estimated GFR > 60 Random Glucose 89 Calcium 8.9 Magnesium 2.0 Total Bilirubin 0.4 Direct Bilirubin 0.2 AST 39 H ALT 43 H Alkaline Phosphatase 108 Total Protein 7.9 Albumin 4.6 Lipase 40 Ethyl Alcohol 272 Assessment and Plan (1) Alcohol use disorder, severe, dependence: Status: Acute (2) Alcohol withdrawal syndrome: Status: Acute Plan This is a 61-year-old male with pertinent history of alcohol use disorder, tobacco use disorder, DVT on Eliquis presents to the emergency department for concerns of alcohol withdrawal. #.? Alcohol use disorder:? Initiating thiamine and folic acid.? Initiated phenobarb protocol for withdrawal, monitor CIWA. CARE team and addiction team consulted. #.? History of DVT on Eliquis #.? Tobacco use disorder:? Refused nicotine patch DVT prophylaxis:? On Eliquis Full code Regular diet Time Spent With Patient Time: Total time managing care of this patient today ____ minutes. Quality Stroke Does the patient have a stroke diagnosis?: No VTE Prior VTE?: Yes VTE Risk Level:: Medical - moderate - high VTE Device Contraindication: Treatment Not Indicated VTE Drug Contraindication: N/A - Med Ordered
[2022-03-05 02:55] LABS: MANUAL DIFF FLAG NO
[2022-03-05 02:57] LABS: Basophils Absolute Auto 0.1 X10*3/uL (0.0-0.2); Basophils Percent Auto 1.1 % (0-2); Eosinophils Absolute Auto 0.2 X10*3/uL (0.0-0.4); Hematocrit 36.4 % (42.0-52.0); Imm Gran Abs Auto 0.02 X10*3/uL (0.00-0.03); Imm Gran Pct Auto 0.3 % (0.0-0.4); Lymphocytes Absolute Auto 2.2 X10*3/uL (1.2-4.9); Lymphocytes Percent Auto 29.5 % (20-40); Mean Corpuscular Hemoglobin 28.5 pg (27.0-33.0); Mean Corpuscular Volume 86.5 fL (80.0-98.0); Mean Platelet Volume 9.6 fL (9.4-12.4); Monocytes Absolute Auto 0.6 X10*3/uL (0.1-1.2); Monocytes Percent Auto 8.2 % (2-11); Neutrophils Absolute Auto 4.5 x10*3/uL (2.0-8.3); Neutrophils Percent Auto 58.9 % (45-73); Platelet Count 252 X10*3/uL (160-400); Red Blood Count 4.21 X10*6/uL (4.60-5.80); Red Cell Distribution Width 17.2 % (11.0-16.0); White Blood Count 7.6 X10*3/uL (4.8-10.8)
[2022-03-05] MEDS: 0.9 % Sodium Chloride 1,000 ML 999 ML IV (02:57)
[2022-03-05 03:10] LABS: COVID-19 Test Negative (Negative); IDNOW Serial# 6674DD1D
[2022-03-05] MEDS: Thiamine HCL 100 MG in 0.9 % Sodium Chloride 100 ML 202 MG IV (03:16)
[2022-03-05] MEDS: Folic Acid 1 MG TABLET PO ×2 (03:16→08:20)
--- NOTE | 2022-03-05 05:43 | PC.NURSE ---
report given to SALVADOR Alvarez
[2022-03-05 06:59] LABS: MANUAL DIFF FLAG NO
[2022-03-05 07:02] LABS: Basophils Absolute Auto 0.1 X10*3/uL (0.0-0.2); Basophils Percent Auto 0.9 % (0-2); Eosinophils Absolute Auto 0.1 X10*3/uL (0.0-0.4); Eosinophils Percent Auto 1.2 % (0-4); Hematocrit 33.6 % (42.0-52.0); Hemoglobin 10.9 g/dl (14.0-18.0); Imm Gran Abs Auto 0.02 X10*3/uL (0.00-0.03); Imm Gran Pct Auto 0.3 % (0.0-0.4); Lymphocytes Percent Auto 14.9 % (20-40); Mean Corpuscular HGB Conc 32.4 g/dl (31.0-36.0); Mean Corpuscular Volume 86.4 fL (80.0-98.0); Mean Platelet Volume 9.2 fL (9.4-12.4); Monocytes Absolute Auto 0.5 X10*3/uL (0.1-1.2); Monocytes Percent Auto 8.1 % (2-11); Neutrophils Absolute Auto 4.9 x10*3/uL (2.0-8.3); Neutrophils Percent Auto 74.6 % (45-73); Platelet Count 206 X10*3/uL (160-400); Red Blood Count 3.89 X10*6/uL (4.60-5.80); Red Cell Distribution Width 17.2 % (11.0-16.0); White Blood Count 6.6 X10*3/uL (4.8-10.8)
[2022-03-05] MEDS: 0.9 % Sodium Chloride Flush 3 ML SYRINGE IVFLUSH (07:27)
[2022-03-05 07:38] LABS: Anion Gap 16 (12-20); Blood Urea Nitrogen 14 mg/dL (9-16); Calcium 8.1 mg/dL (8.4-10.2); Carbon Dioxide 21 mmol/L (22-29); Chloride 106 mmol/L (96-108); Creatinine Clr Calc Pharmacy 95.4; Estimated Glomerular Filt Rate > 60; Glucose Random 75 mg/dL (60-115); Potassium 4.3 mmol/L (3.3-5.1); Sodium 139 mmol/L (135-145)
--- NOTE | 2022-03-05 07:53 | PHA.MEDREC ---
Pharmacy Consult ? Medication Reconciliation Pharmacy has completed the medication reconciliation.
[2022-03-05] MEDS: PHENobarbitaL 15 MG TABLET 45 MG PO ×2 (08:20→21:35)
[2022-03-05] MEDS: Apixaban 5 MG TABLET PO ×2 (08:20→21:35)
[2022-03-05 10:05] LABS: Amphetamine Screen Urine Not Detected (Not Detect); Barbiturates, Urine POSITIVE (Not Detect); Benzodiazepines Screen Urine Not Detected (Not Detect); Cannabinoid Screen Urine Not Detected (Not Detect); Cocaine Screen Urine Not Detected (Not Detect); Fentanyl, urine Not Detected (Not Detect); Opiate Screen Urine Not Detected (Not Detect); Phencyclidine Screen Urine Not Detected (Not Detect)
[2022-03-05] MEDS: Acetaminophen 325 MG TABLET 650 MG PO (12:35)
--- NOTE | 2022-03-05 21:19 | MHC.EDTECH ---
pt is resting, vitals were taken and he was put on 2 liters of O2 due to he stated he was having trouble breathing he usually uses a inhaler to help open up his lungs, the nurse is aware
[2022-03-05] MEDS: Albuterol Sulfate 90 MCG 8 GM INHALER 2 PUFF INHALE (21:35)
--- NOTE | 2022-03-05 21:43 | PC.NURSE ---
pt requesting at home albuterol rescue inhaler for cough and chest tightness. states albuterol helps to open up his chest masking it easier to breath. MD Pryor notified and prn order in
[2022-03-06] VITALS: BP 124/37; PULSE 80; RESP 18; TEMP 36.7; O2SAT 92
--- NOTE | 2022-03-06 | ECG_ITS ---
Test Reason : Tachycardia Blood Pressure : / mmHG Vent. Rate : 127 BPM Atrial Rate : 127 BPM P-R Int : 146 ms QRS Dur : 110 ms QT Int : 308 ms P-R-T Axes : 081 -79 059 degrees QTc Int : 447 ms Sinus tachycardia Right bundle branch block Left anterior fascicular block Bifascicular block Abnormal ECG When compared with ECG of 03-MAR-2022 17:47, Vent. rate has increased BY 52 BPM Referred By: Caden Hutchinson Electronically Signed By:RENEE TRAMMELL
[2022-03-06] MEDS: 0.9 % Sodium Chloride Flush 3 ML SYRINGE IVFLUSH ×4 (01:17→21:38)
--- NOTE | 2022-03-06 06:42 | PC.NURSE ---
Patient slept throughout night, CIWA 0, Will continue to monitor.
[2022-03-06 08:35] VITALS: BP 123/72; PULSE 140; RESP 24; TEMP 38.2; O2SAT 91
--- NOTE | 2022-03-06 09:08 | P.PNIM_ITS ---
Subjective Subjective Date of Service: 03/06/22 Interval History: Follow-up on alcohol withdrawal, Patient has no tremors no evidence of acute alcohol withdrawal. However he has been coughing a lot and has a temperature 100.5 degrees. Physical Exam Vital Signs: Vital Signs: Last Vital Signs Temp 100.7 F H 03/06/22 08:35 Pulse 140 H 03/06/22 08:35 Resp 24 H 03/06/22 08:35 BP 123/72 03/06/22 08:35 Pulse Ox 91 L 03/06/22 08:35 O2 Del Method 03/06/22 08:35 O2 Flow Rate 2 03/06/22 00:00 BMI result Body Mass Index 20.7 Const: Other: General: AO X 3, no acute distress Resp: CTA bilateral CVS: S1,S2,RRR GI: +BS, NT, no distention Skin: No rash Neuro: motor grossly intact Psych: appropriate affect Objective Data Active Medications Acetaminophen (Acetaminophen 325 Mg Tablet) 650 mg PO Q6H PRN PRN Reason: Pain, Mild (Pain Scale 1-3) Last Admin: 03/05/22 12:35 Dose: 650 mg Documented By: CHERELLE Albuterol Sulfate (Albuterol Sulfate 90 Mcg 8 Gm Inhaler) 2 puff INHALE RQ4H PRN PRN Reason: wheezing Last Admin: 03/05/22 21:35 Dose: 2 puff Documented By: LIBIA Apixaban (Apixaban 5 Mg Tablet) 5 mg PO BID [facility] Last Admin: 03/05/22 21:35 Dose: 5 mg Documented By: LIBIA Folic Acid (Folic Acid 1 Mg Tablet) 1 mg PO DAILY [facility] Last Admin: 03/05/22 08:20 Dose: 1 mg Documented By: ANDIE Thiamine HCl 100 mg/ Sodium (Chloride) 101 mls @ 202 mls/hr IV DAILY [facility] Last Infusion: 03/05/22 06:02 Dose: 0 mls/hr Documented By: LIBIA Melatonin (Melatonin 3 Mg Tablet) 6 mg PO BEDTIME PRN PRN Reason: Insomnia Ondansetron HCl (Ondansetron Hcl 4 Mg/2 Ml Vial) 4 mg IVPUSH Q8H PRN PRN Reason: Nausea and Vomiting Pharmacy Consult (Consult Rx Etoh Phenob Im/Po) 1 each MISCELLANE ONCE PRN; Protocol PRN Reason: Consult order Pharmacy Consult (Consult Rx Perform Med Rec) 1 each MISCELLANE ONCE PRN PRN Reason: Consult order Phenobarbital (Phenobarbital 15 Mg Tablet) 45 mg PO BID [facility]; Protocol Stop: 03/06/22 21:01 Last Admin: 03/05/22 21:35 Dose: 45 mg Documented By: LIBIA Phenobarbital (Phenobarbital 15 Mg Tablet) 15 mg PO BID [facility]; Protocol Stop: 03/08/22 21:01 Phenobarbital (Phenobarbital 15 Mg Tablet) 15 mg PO DAILY [facility]; Protocol Stop: 03/10/22 09:01 Sodium Chloride (0.9 % Sodium Chloride Flush 3 Ml Sy[facility]) [facility] Last Admin: 03/06/22 01:17 Dose: 3 ml Documented By: MELVI Labs 03/05/22 06:55 03/05/22 06:55 Labs: Laboratory Results - last 24 hr 03/05/22 09:36 Urine Opiates Screen Not Detected Urine Fentanyl Screen Not Detected Ur Barbiturates Screen POSITIVE H Ur Phencyclidine Scrn Not Detected Ur Amphetamines Screen Not Detected U Benzodiazepines Scrn Not Detected Urine Cocaine Screen Not Detected U Marijuana (THC) Screen Not Detected Assessment and Plan (1) Alcohol withdrawal syndrome: Status: Acute (2) SIRS (systemic inflammatory response syndrome): Status: Acute Plan 61-year-old male with pertinent history of alcohol use disorder, tobacco use disorder, DVT on Eliquis presents to the emergency department for concerns of alcohol withdrawal. #.? Alcohol use disorder:? Initiating thiamine and folic acid.? continue phenobarb protocol for withdrawal, monitor CIWA. CARE team and addiction team consulted. #.? History of DVT on Eliquis #.? Tobacco use disorder:? Refused nicotine patch # Fever, tachycardia, cough--check flu, rsv, covid, cxr, SIRS, check CBC, Chem 7, ECG DVT prophylaxis:? On Eliquis Full code Regular diet need for inpatient: Treatment for alcohol withdrawal, fever workup Time Spent With Patient Time: Total time managing care of this patient today ____ minutes. Quality Stroke Does the patient have a stroke diagnosis?: No VTE Prior VTE?: Yes VTE Risk Level:: Medical - moderate - high VTE Device Contraindication: Treatment Not Indicated VTE Drug Contraindication: N/A - Med Ordered
[2022-03-06 09:48] LABS: Influenza A PCR POSITIVE (Negative); Influenza B PCR NEGATIVE (Negative); Resp Syncy Virus RNA Qual PCR NEGATIVE (Negative); SARS COV2 PCR INHOUSE NEGATIVE (Negative)
[2022-03-06] MEDS: Docusate Sodium 100 MG CAPSULE PO ×2 (09:55→21:37)
[2022-03-06] MEDS: PHENobarbitaL 15 MG TABLET 45 MG PO ×2 (09:55→21:38)
[2022-03-06] MEDS: Apixaban 5 MG TABLET PO ×2 (09:56→21:38)
[2022-03-06] MEDS: Folic Acid 1 MG TABLET PO (09:57)
[2022-03-06] MEDS: Thiamine HCL 100 MG in 0.9 % Sodium Chloride 100 ML 202 MG IV (09:59)
[2022-03-06 10:29] LABS: Hematocrit 32.5 % (42.0-52.0); Hemoglobin 10.8 g/dl (14.0-18.0); Mean Corpuscular HGB Conc 33.2 g/dl (31.0-36.0); Mean Corpuscular Hemoglobin 28.3 pg (27.0-33.0); Mean Corpuscular Volume 85.3 fL (80.0-98.0); Mean Platelet Volume 10.2 fL (9.4-12.4); Red Blood Count 3.81 X10*6/uL (4.60-5.80); Red Cell Distribution Width 16.7 % (11.0-16.0); White Blood Count 4.7 X10*3/uL (4.8-10.8)
[2022-03-06 10:30] LABS: Platelet Count 139 X10*3/uL (160-400)
[2022-03-06 10:32] LABS: Anion Gap 17 (12-20); Blood Urea Nitrogen 13 mg/dL (9-16); Calcium 8.9 mg/dL (8.4-10.2); Carbon Dioxide 21 mmol/L (22-29); Chloride 100 mmol/L (96-108); Creatinine Clr Calc Pharmacy 79.1; Estimated Glomerular Filt Rate > 60; Glucose Random 119 mg/dL (60-115); Potassium 4.8 mmol/L (3.3-5.1); Sodium 133 mmol/L (135-145)
[2022-03-06] MEDS: Oseltamivir Phosphate 75 MG CAPSULE PO (14:38)
--- NOTE | 2022-03-06 14:38 | MHC.RECOVRN ---
Chart reviewed. Met with pt on 03/04 and thoroughly discussed resources available. Pt would not be candidate for inpatient tx due to Flu+. Pt provided with t/w contact information and written resource materials if needed.
[2022-03-06 18:35] VITALS: BP 155/67; PULSE 112; RESP 20; TEMP 37.1; O2SAT 95
[2022-03-06] MEDS: Acetaminophen 325 MG TABLET 650 MG PO (18:49)
[2022-03-07] VITALS (9 sets, daily range): BP systolic 113–120; BP diastolic 56–71; PULSE 80–101; RESP 17–22; TEMP 36.9–37.4; O2SAT 92–96
[2022-03-07] MEDS: Oseltamivir Phosphate 75 MG CAPSULE PO ×2 (00:03→11:55)
[2022-03-07] MEDS: Thiamine HCL 100 MG in 0.9 % Sodium Chloride 100 ML 202 MG IV (08:47)
[2022-03-07] MEDS: Docusate Sodium 100 MG CAPSULE PO ×2 (08:48→21:54)
[2022-03-07] MEDS: 0.9 % Sodium Chloride Flush 3 ML SYRINGE IVFLUSH ×2 (08:48→21:55)
[2022-03-07] MEDS: PHENobarbitaL 15 MG TABLET PO ×2 (08:48→21:54)
[2022-03-07] MEDS: Apixaban 5 MG TABLET PO ×2 (08:48→21:54)
[2022-03-07] MEDS: Folic Acid 1 MG TABLET PO (08:48)
--- NOTE | 2022-03-07 10:05 | HO.PM.IMPN ---
Subjective Subjective Date of Service: 03/07/22 Physical Exam Vital Signs: Vital Signs: Last Vital Signs Temp 99.2 F 03/07/22 08:00 Pulse 100 03/07/22 08:00 Resp 20 03/07/22 08:00 BP 116/62 03/07/22 08:00 Pulse Ox 92 03/07/22 08:00 O2 Del Method 03/07/22 08:00 O2 Flow Rate 2 03/07/22 08:00 BMI result Body Mass Index 20.7 Objective Data Active Medications Acetaminophen (Acetaminophen 325 Mg Tablet) 650 mg PO Q6H PRN PRN Reason: Pain, Mild (Pain Scale 1-3) Last Admin: 03/06/22 18:49 Dose: 650 mg Documented By: ROSS Albuterol Sulfate (Albuterol Sulfate 90 Mcg 8 Gm Inhaler) 2 puff INHALE RQ4H PRN PRN Reason: wheezing Last Admin: 03/05/22 21:35 Dose: 2 puff Documented By: LIBIA Albuterol Sulfate (Albuterol Sulfate 90 Mcg 8 Gm Inhaler) 2 puff INHALE Q4H PRN PRN Reason: Wheezing Apixaban (Apixaban 5 Mg Tablet) 5 mg PO BID [facility] Last Admin: 03/07/22 08:50 Dose: Not Given Documented By: JILLIAN Non-Admin Reason: Duplicate Order Albuterol Sulfate 2.5 mg/ (Ipratropium [place] 0.5 mg) 0 mg INHALE RQID [facility] Last Admin: 03/07/22 07:21 Dose: 1 each Documented By: ALISA Docusate Sodium (Docusate Sodium 100 Mg Capsule) 100 mg PO BID [facility] Last Admin: 03/07/22 08:48 Dose: 100 mg Documented By: JILLIAN Folic Acid (Folic Acid 1 Mg Tablet) 1 mg PO DAILY [facility] Last Admin: 03/07/22 08:48 Dose: 1 mg Documented By: JILLIAN Thiamine HCl 100 mg/ Sodium (Chloride) 101 mls @ 202 mls/hr IV DAILY [facility] Last Admin: 03/07/22 08:47 Dose: 202 mls/hr Documented By: JILLIAN Melatonin (Melatonin 3 Mg Tablet) 6 mg PO BEDTIME PRN PRN Reason: Insomnia Ondansetron HCl (Ondansetron Hcl 4 Mg/2 Ml Vial) 4 mg IVPUSH Q8H PRN PRN Reason: Nausea and Vomiting Oseltamivir Phosphate (Oseltamivir Phosphate 75 Mg Capsule) 75 mg PO Q12H [facility] Stop: 03/11/22 00:01 Last Admin: 03/07/22 00:03 Dose: 75 mg Documented By: JOSHUA Pharmacy Consult (Consult Rx Etoh Phenob Im/Po) 1 each MISCELLANE ONCE PRN; Protocol PRN Reason: Consult order Pharmacy Consult (Consult Rx Perform Med Rec) 1 each MISCELLANE ONCE PRN PRN Reason: Consult order Phenobarbital (Phenobarbital 15 Mg Tablet) 15 mg PO BID [facility]; Protocol Stop: 03/08/22 21:01 Last Admin: 03/07/22 08:48 Dose: 15 mg Documented By: JILLIAN Phenobarbital (Phenobarbital 15 Mg Tablet) 15 mg PO DAILY [facility]; Protocol Stop: 03/10/22 09:01 Sodium Chloride (0.9 % Sodium Chloride Flush 3 Ml Syringe) 3 ml IVFLUSH QSHIFT [facility] Last Admin: 03/07/22 08:48 Dose: 3 ml Documented By: JILLIAN Labs 03/06/22 09:58 03/06/22 09:58 Labs: Laboratory Results - last 24 hr 03/06/22 03/06/22 09:58 09:58 MCV 85.3 MCH 28.3 MCHC 33.2 RDW 16.7 H Plt Count 139 L D MPV 10.2 Absolute Nucleated RBC 0.000 Nucleated RBC % (auto) 0.0 Anion Gap 17 Estim Creat Clear Calc 79.1 Estimated GFR > 60 Random Glucose 119 H D Calcium 8.9 D Assessment and Plan (1) Alcohol withdrawal syndrome: Status: Acute (2) SIRS (systemic inflammatory response syndrome): Status: Acute Plan 61-year-old male with pertinent history of alcohol use disorder, tobacco use disorder, DVT on Eliquis presents to the emergency department for concerns of alcohol withdrawal. #.? Alcohol use disorder:? Initiating thiamine and folic acid.? continue phenobarb protocol for withdrawal, monitor CIWA. CARE team and addiction team consulted. #.? History of DVT on Eliquis #.? Tobacco use disorder:? Refused nicotine patch # Influenza with body aches, fever resolved, continue oxygen, Tamiflu x 2 DVT prophylaxis:? On Eliquis Full code Regular diet need for inpatient: Treatment for alcohol withdrawal, Influenza with hypoxia Time Spent With Patient Time: Total time managing care of this patient today ____ minutes. Quality Stroke Does the patient have a stroke diagnosis?: No VTE Prior VTE?: Yes VTE Risk Level:: Medical - moderate - high VTE Device Contraindication: Treatment Not Indicated VTE Drug Contraindication: N/A - Med Ordered
--- NOTE | 2022-03-07 10:21 | MHC.CM.PN ---
Addendum entered by Esther Hernandez RN 03/07/22 10:32: D/T PT ADDRESS REFERRALS PLACED TO [facility] Original Note: IMM 03/07/2022, EMR REVIEWED, CM MET W/PT WHO REPORTS HE LIVES ALONE, IS INDEO W/CARE, REPORTS HE USES A CANE AND HAS A WALKER AT HOME BUT DOES NOT USE IT, PT DENIES HAVING HOME SERVICES, PT REPORTING HE FEELS WEEK AND IS WORRIED ABOUT GOING HOME WHOEVER NO PLAN FOR D/C TODAY, CM WILL PLACE REFERRAL FOR [facility] THEY ARE CONTRACTED W/INSURANCE, ANTIC PT WILL NEED PT EVAL. PT VERIFIES RECEIVING [facility], PCP DANIELA PEREZ AND SON WENDY HCP. ANTIC D/C HOME AND POSSIBLE NEW [facility] FOR HOME PT, PT WILL CALL [facility] FOR TRANSPORT
[2022-03-07] MEDS: Albuterol Sulfate 90 MCG 8 GM INHALER 2 PUFF INHALE (19:42)
[2022-03-08] VITALS (10 sets, daily range): BP systolic 99–121; BP diastolic 57–63; PULSE 73–100; RESP 16–18; TEMP 36.4–37.6; O2SAT 93–96
[2022-03-08] MEDS: Oseltamivir Phosphate 75 MG CAPSULE PO ×3 (00:42→23:15)
[2022-03-08] MEDS: PHENobarbitaL 15 MG TABLET PO ×2 (09:13→21:00)
[2022-03-08] MEDS: Thiamine HCL 100 MG in 0.9 % Sodium Chloride 100 ML 202 MG IV (09:13)
[2022-03-08] MEDS: Docusate Sodium 100 MG CAPSULE PO ×2 (09:13→21:00)
[2022-03-08] MEDS: Apixaban 5 MG TABLET PO ×2 (09:13→21:00)
[2022-03-08] MEDS: Folic Acid 1 MG TABLET PO (09:13)
[2022-03-08] MEDS: 0.9 % Sodium Chloride Flush 3 ML SYRINGE IVFLUSH ×3 (09:13→21:01)
--- NOTE | 2022-03-08 09:45 | HO.PM.IMPN ---
Subjective Subjective Date of Service: 03/08/22 Interval History: Follow-up on alcohol withdrawal, Patient has no tremors no evidence of acute alcohol withdrawal. However he has been coughing a lot and has a temperature 100.5 degrees. Physical Exam Vital Signs: Vital Signs: Last Vital Signs Temp 97.6 F 03/08/22 08:00 Pulse 73 03/08/22 08:20 Resp 16 03/08/22 08:20 BP 99/60 03/08/22 08:00 Pulse Ox 95 03/08/22 08:00 O2 Del Method 03/08/22 08:00 O2 Flow Rate 2 03/08/22 04:00 BMI result Body Mass Index 20.7 Const: Other: General: AO X 3, no acute distress Resp: CTA bilateral CVS: S1,S2,RRR GI: +BS, NT, no distention Skin: No rash Neuro: motor grossly intact Psych: appropriate affect Objective Data Active Medications Acetaminophen (Acetaminophen 325 Mg Tablet) 650 mg PO Q6H PRN PRN Reason: Pain, Mild (Pain Scale 1-3) Last Admin: 03/06/22 18:49 Dose: 650 mg Documented By: ROSS Albuterol Sulfate (Albuterol Sulfate 90 Mcg 8 Gm Inhaler) 2 puff INHALE RQ4H PRN PRN Reason: wheezing Last Admin: 03/07/22 19:42 Dose: 2 puff Documented By: ALISA Albuterol Sulfate (Albuterol Sulfate 90 Mcg 8 Gm Inhaler) 2 puff INHALE Q4H PRN PRN Reason: Wheezing Apixaban (Apixaban 5 Mg Tablet) 5 mg PO BID [facility] Last Admin: 03/08/22 09:13 Dose: 5 mg Documented By: JILLIAN Albuterol Sulfate 2.5 mg/ (Ipratropium [place] 0.5 mg) 0 mg INHALE RQID [facility] Last Admin: 03/08/22 08:18 Dose: 1 each Documented By: ALISA Docusate Sodium (Docusate Sodium 100 Mg Capsule) 100 mg PO BID [facility] Last Admin: 03/08/22 09:13 Dose: 100 mg Documented By: JILLIAN Folic Acid (Folic Acid 1 Mg Tablet) 1 mg PO DAILY [facility] Last Admin: 03/08/22 09:13 Dose: 1 mg Documented By: JILLIAN Thiamine HCl 100 mg/ Sodium (Chloride) 101 mls @ 202 mls/hr IV DAILY [facility] Last Admin: 03/08/22 09:13 Dose: 202 mls/hr Documented By: JILLIAN Melatonin (Melatonin 3 Mg Tablet) 6 mg PO BEDTIME PRN PRN Reason: Insomnia Ondansetron HCl (Ondansetron Hcl 4 Mg/2 Ml Vial) 4 mg IVPUSH Q8H PRN PRN Reason: Nausea and Vomiting Oseltamivir Phosphate (Oseltamivir Phosphate 75 Mg Capsule) 75 mg PO Q12H [facility] Stop: 03/11/22 00:01 Last Admin: 03/08/22 00:42 Dose: 75 mg Documented By: NOLAN Pharmacy Consult (Consult Rx Etoh Phenob Im/Po) 1 each MISCELLANE ONCE PRN; Protocol PRN Reason: Consult order Pharmacy Consult (Consult Rx Perform Med Rec) 1 each MISCELLANE ONCE PRN PRN Reason: Consult order Phenobarbital (Phenobarbital 15 Mg Tablet) 15 mg PO BID [facility]; Protocol Stop: 03/08/22 21:01 Last Admin: 03/08/22 09:13 Dose: 15 mg Documented By: JILLIAN Phenobarbital (Phenobarbital 15 Mg Tablet) 15 mg PO DAILY [facility]; Protocol Stop: 03/10/22 09:01 Sodium Chloride (0.9 % Sodium Chloride Flush 3 Ml Syringe) 3 ml IVFLUSH QSHIFT [facility] Last Admin: 03/08/22 09:13 Dose: 3 ml Documented By: JILLIAN Labs 03/06/22 09:58 03/06/22 09:58 Assessment and Plan (1) Alcohol withdrawal syndrome: Status: Acute (2) SIRS (systemic inflammatory response syndrome): Status: Acute Plan 61-year-old male with pertinent history of alcohol use disorder, tobacco use disorder, DVT on Eliquis presents to the emergency department for concerns of alcohol withdrawal. #.? Alcohol use disorder:? Initiating thiamine and folic acid.? continue phenobarb protocol for withdrawal, monitor CIWA. CARE team and addiction following. #.? History of DVT on Eliquis #.? Tobacco use disorder:? Refused nicotine patch # Influenza with body aches, fever resolved, continue oxygen, Tamiflu for 5 days, no more hypoxic DVT prophylaxis:? On Eliquis Full code Regular diet need for inpatient: Treatment for alcohol withdrawal, Influenza with hypoxia Time Spent With Patient Time: Total time managing care of this patient today ____ minutes. Quality Stroke Does the patient have a stroke diagnosis?: No VTE Prior VTE?: Yes VTE Risk Level:: Medical - moderate - high VTE Device Contraindication: Treatment Not Indicated VTE Drug Contraindication: N/A - Med Ordered
[2022-03-08] MEDS: Albuterol Sulfate 90 MCG 8 GM INHALER 2 PUFF INHALE (23:22)
[2022-03-09] MEDS: Melatonin 3 MG TABLET 6 MG PO (01:14)
[2022-03-09 03:30] VITALS: BP 120/65; PULSE 88; RESP 16; TEMP 36.6; O2SAT 94
[2022-03-09] MEDS: Albuterol Sulfate 90 MCG 8 GM INHALER 2 PUFF INHALE (07:46)
[2022-03-09 07:47] VITALS: PULSE 84; RESP 18; O2SAT 94
[2022-03-09 08:00] VITALS: BP 103/58; PULSE 72; RESP 20; TEMP 36.6; O2SAT 92
[2022-03-09] MEDS: Acetaminophen 325 MG TABLET 650 MG PO (08:28)
[2022-03-09] MEDS: 0.9 % Sodium Chloride Flush 3 ML SYRINGE IVFLUSH (08:28)
[2022-03-09] MEDS: PHENobarbitaL 15 MG TABLET PO (08:29)
[2022-03-09] MEDS: Docusate Sodium 100 MG CAPSULE PO (08:29)
[2022-03-09] MEDS: Apixaban 5 MG TABLET PO (08:29)
[2022-03-09] MEDS: Thiamine HCL 100 MG in 0.9 % Sodium Chloride 100 ML 202 MG IV (08:41)
[2022-03-09] MEDS: Folic Acid 1 MG TABLET PO (10:06)
--- NOTE | 2022-03-09 10:55 | MHC.CLN ---
PT REPORTED 14-23# WT LOSS ON ADMISSION ASSESSMENT CURRENT WT 63.5KG PREVIOUS WT HX REVEALS: 66.2KG (09/09/21) PT WITH 4% NONSIGNIFICANT WT LOSS X 6 MONTHS NO NEW ORDERS AT THIS TIME REGULAR DIET WITH 100% PO INTAKE X 4 MEALS CONITNUE TO MONITOR PO INTAKE
--- NOTE | 2022-03-09 12:20 | PM.DS ---
DS: Providers Provider Date of Service: 03/09/22 Date of admission: 03/06/22 10:55 Primary care physician: Cristhian Delgado MD Consults: 03/04/22 20:07 Consult to Care Team Stat Comment: Reason for consultation: recovery 03/05/22 02:38 Addiction Medicine Routine Consulting Provider: Addiction Covering Reason for consultation: alcohol use disorder Consult to Care Team Routine Comment: Reason for consultation: alcohol use disorder DS: Diagnosis Discharge Diagnosis (1) Alcohol withdrawal syndrome: Status: Acute (2) SIRS (systemic inflammatory response syndrome): Status: Acute DS: Summary Hospital Course Hospital Course: Patient was admitted for alcohol withdrawal and treated with phenobarbital protocol and did not show sings of withdrawal, the following day he had fever, tachycardia and cough and tested postive for inluenza and started on Tamiflu, he also required oxygen but by the next day fever resolved and was off Oxygen. He was to be assess toda for discharge but decided to leave AMA before he can be formerly discharged. Tamiflu sent to the pharmacy and he's aware of this. I advised him to wait but would not and took full responsibility about leaving, including getting worse and even the posibility of Time Spent with Patient Time attestation: Total time managing care of this patient today ____ minutes. Discharge coordination time: Greater than 30 minutes Quality: Safe Use of Opioids Does Pt have an Active Cancer Diagnosis on the Problem List?: No Quality: Stroke Does the patient have a stroke diagnosis?: No Physical Exam Vital Signs: Vital Signs: Last Vital Signs Temp 97.8 F 03/09/22 08:00 Pulse 72 03/09/22 08:00 Resp 20 03/09/22 08:00 BP 103/58 L 03/09/22 08:00 Pulse Ox 92 03/09/22 08:00 O2 Del Method 03/09/22 08:00 O2 Flow Rate 2 03/08/22 04:00 BMI result Body Mass Index 20.7 Const: Other: General: AO X 3, no acute distress Resp: CTA bilateral CVS: S1,S2,RRR GI: +BS, NT, no distention Skin: No rash Neuro: motor grossly intact Psych: appropriate affect DS: Data Data Completed and Pending Completed studies during hospitalization [Text1]: Procedures Detoxification Services for Substance Abuse Treatment (02/06/22) Discharge Plan Discharge Anticipated Discharge Date/Time: 03/09/22 12:14 Patient Disposition: Left Against Medical Advice Discharge Diagnosis: Influenza, alcohol withdrawal Referrals: Cristhian Delgado MD [Primary Care Provider] - 1 Week Discharge Medications: New oseltamivir [Tamiflu] 75 mg capsule 75 mg PO BID 2 Days Qty: 4 0RF Continued albuterol sulfate [ProAir HFA] 90 mcg/actuation HFA aerosol inhaler 2 puff inhalation Q4-6H PRN (Reason: Wheezing) Qty: 8.5 0RF Eliquis 5 mg tablet 5 mg PO BID 10 Days Qty: 20 0RF docusate sodium [DOK] 100 mg tablet 100 mg PO BID Combivent Respimat 20-100 mcg/actuation mist 1 puff inhalation QID Discharge Orders: Discharge Order (Routine); Ordered 03/09/22 Ordered By: Caden Hutchinson Diet: Advance to usual diet Activity on Discharge: As tolerated Care Plan Goals: recovery from flu and abstiance from alcohol Health Concerns: alcohol depenence Influenza Plan of Treatment: Left AMA before he can be discharged Assessment: as above
--- NOTE | 2022-03-09 12:32 | MHC.CM.PN ---
pt left ama
== END 2022-03-09 10:00 | disposition left against medical advice (07) | DRG 194 ==
LOC: HO.ED 03-05 02:10 → HO.EDOVER 03-05 02:48 → HO.IMC 03-06 14:06
PROVIDERS: Physician Assistant; Admitting Provider Student in an Organized Health Care Education/Training Program; Emergency Provider Emergency Medicine; PCP Internal Medicine; Visit Provider Internal Medicine
DX: J10.1 Influenza due to other identified influenza virus with other respiratory manifestations (principal); F10.239 Alcohol dependence with withdrawal, unspecified; R65.10 Systemic inflammatory response syndrome (SIRS) of non-infectious origin without acute organ dysfunction; F17.210 Nicotine dependence, cigarettes, uncomplicated; R09.02 Hypoxemia; Y90.8 Blood alcohol level of 240 mg/100 ml or more; Z86.718 Personal history of other venous thrombosis and embolism; Z71.6 Tobacco abuse counseling; Z79.01 Long term (current) use of anticoagulants; Z79.899 Other long term (current) drug therapy
CPT/HCPCS: 0241U; 36415; 71046; 80048; 80076; 80307; 82077; 83690; 83735; 85025; 85027; 87635; 93005; 99285; J2560; J3411

== ENCOUNTER 2022-03-14 04:54 | Emergency (ER) | payer OTHER, SELFPAY ==
[2022-03-14 04:58] VITALS: BP 120/90; PULSE 75; O2SAT 98; BMI 23.6
[2022-03-14 05:02] VITALS: BP 105/55; PULSE 83; RESP 18; TEMP 36.4; O2SAT 92
--- NOTE | 2022-03-14 06:18 | ED.ALCOHOL ---
HPI - Alcohol General Chief Complaint: ETOH/Substance Use Stated Complaint: seeking detox Time Seen by Provider: 03/14/22 05:05 History of Present Illness HPI narrative: Patient is a 61-year-old male multiple ED visits for alcohol intoxication. Was in the emergency department yesterday. Was sent to detox. Patient complained that he was home having drank in 24 hours now wants to go to detox again patient denies any fever chills. No chest pain or shortness of breath no nausea no vomiting. Has no suicidal homicidal ideations. Related Data Home Medications Medication Instructions Recorded Confirmed docusate sodium 100 mg tablet (DOK) 100 mg PO BID 02/06/22 03/05/22 ipratropium 20 mcg-albuterol 100 1 puff inhalation QID 02/06/22 03/05/22 mcg/actuation mist for inhalation (Combivent Respimat) Previous Rx's Medication Instructions Recorded albuterol sulfate 90 mcg/actuation 2 puff inhalation Q4-6H PRN 12/04/21 aerosol inhaler (ProAir HFA) Wheezing #8.5 grams apixaban 5 mg tablet (Eliquis) 5 mg PO BID 10 days #20 tabs 02/17/22 Allergies Allergy/AdvReac Type Severity Reaction Status Date / Time Peanut Butter Allergy Facial Verified 03/04/22 20:08 Swelling raspberry Allergy Facial Verified 03/04/22 20:08 Swelling Review of Systems Review of Systems: Positive wanting detox. Positive history of EtOH patient claims he last drank about 24 hours of Yes all other systems are reviewed and are negative PMFSH Past Medical History Attestation statement: The following information was validated with the patient. Medical History Alcohol abuse Alcohol use disorder, severe, dependence Asthma COPD (chronic obstructive pulmonary disease) DVT (deep venous thrombosis) Neuropathy Subdural hematoma Tobacco abuse Social History Social History Household Members: None Housing: House Do you presently have visiting nurse or other home services: No Alcohol intake: current Alcohol intake frequency: 3 or more drinks per day Alcohol type: hard liquor Patient Tobacco Use Status: Current everyday Tobacco user Tobacco use type: Cigarette Cigarette Packs Per Day: 1 Cigarettes Per Day: 1 Smoked in Last 30 Days: Yes e-Cigarette/Vaping Use: Never Used Second Hand Smoke Exposure: No Use of substances other than those prescribed or required for medical reasons: Yes Substance Use Type: Marijuana Advance Directives: Yes Advance Directives on File: Yes Advance Directives Date on File: 03/05/22 service: No Current occupational status: disabled Physical Exam ED Vital Signs: Vital Signs - 24 hr 03/14/22 05:02 Temperature 97.6 F Pulse Rate 83 Respiratory Rate 18 Blood Pressure 105/55 L Pulse Oximetry 92 Oxygen Delivery Method Room Air BMI result Body Mass Index 23.6 Appearance: Alert. Oriented X3. No acute distress. Eyes: Pupils equal, round and reactive to light. ENT: Pharynx normal. Neck: Normal inspection. Neck supple. No lymph nodes noted. No crepitus CVS: Normal heart rate and rhythm. Pulses normal. Normal S1 and S2 Respiratory: No respiratory distress. Breath sounds normal. No Wheezing. No rales Abdomen: Soft and nontender. No rigidity. No distention. good BS x4 Skin: Skin warm and dry. Normal skin color. Normal skin turgor. Extremities: No lower extremity edema. Neurovascular intact to all extremities. No Lacerations. No Rash Neuro: Oriented X 3. No motor deficit. No sensory deficit. Moving all extermities. No slurred speech Medical Decision Making Differential Diagnosis Alcohol intoxication. Patient awake alert ambulating in a straight line. Comprehends what is going on. Initially he came via EMS requesting detox. Now he was just going to go home, he has all the detox information at home. Offered patient detox. Patient states he wants to go home. Ambulating with a cane. He is in no distress. Comprehend what is going on. Understood my question. Patient is being discharged. He ready has a list of detox places at home. Discharge Plan Discharge Clinical Impression: Alcohol abuse Patient Disposition: Home, Self-Care Instructions: Abuse of Alcohol (ED), Alcohol Use Disorder (ED) Additional Instructions: Please go to detox. Please stop drinking alcohol. Prescriptions: No Action albuterol sulfate [ProAir HFA] 90 mcg/actuation HFA aerosol inhaler 2 puff inhalation Q4-6H PRN (Reason: Wheezing) Qty: 8.5 0RF Eliquis 5 mg tablet 5 mg PO BID 10 Days Qty: 20 0RF docusate sodium [DOK] 100 mg tablet 100 mg PO BID Combivent Respimat 20-100 mcg/actuation mist 1 puff inhalation QID Referrals: Cristhian Delgado MD [Primary Care Provider] - (Please go to detox.) Interventions: [place]-Suicide Risk Severity Scale Last Done: 03/14/22 05:26
== END 2022-03-14 06:36 | disposition home or self-care (01) ==
PROVIDERS: Emergency Provider Emergency Medicine Emergency Medical Services; PCP Internal Medicine
DX: F10.10 Alcohol abuse, uncomplicated (principal); F17.210 Nicotine dependence, cigarettes, uncomplicated; F12.90 Cannabis use, unspecified, uncomplicated
CPT/HCPCS: 99282; 99284

== ENCOUNTER 2022-03-15 11:17 | Emergency (ER) | payer OTHER, SELFPAY ==
[2022-03-15 11:24] VITALS: BP 113/71; BP 134/82; PULSE 80; PULSE 89; RESP 20; TEMP 36.5; O2SAT 91; O2SAT 95; BMI 20.7
--- NOTE | 2022-03-15 11:37 | ED_ITS ---
HPI - Alcohol General Chief Complaint: ETOH/Substance Use Stated Complaint: ETOH INTOX,WANTS DETOX Time Seen by Provider: 03/15/22 11:21 Source: patient and EMS Mode of arrival: EMS Limitations: no limitations History of Present Illness HPI narrative: This is a 61-year-old male with a history of alcohol use disorder, COPD who presents seeking detox for alcohol. Patient drinks 2 pt of vodka daily. Last drink was just prior to arrival. Patient denies any additional substance use. Patient with no physical complaints. Patient denies SI or HI. Patient reports he has banned from several detox facilities. Related Data Home Medications Medication Instructions Recorded Confirmed docusate sodium 100 mg tablet (DOK) 100 mg PO BID 02/06/22 03/05/22 ipratropium 20 mcg-albuterol 100 1 puff inhalation QID 02/06/22 03/05/22 mcg/actuation mist for inhalation (Combivent Respimat) Previous Rx's Medication Instructions Recorded albuterol sulfate 90 mcg/actuation 2 puff inhalation Q4-6H PRN 12/04/21 aerosol inhaler (ProAir HFA) Wheezing #8.5 grams apixaban 5 mg tablet (Eliquis) 5 mg PO BID 10 days #20 tabs 02/17/22 albuterol sulfate 90 mcg/actuation 2 puff inhalation Q4-6H PRN 03/15/22 aerosol inhaler shortness of breath or wheezing #8.5 grams apixaban 5 mg tablet (Eliquis) 5 mg PO BID #30 tabs 03/15/22 Allergies Allergy/AdvReac Type Severity Reaction Status Date / Time Peanut Butter Allergy Facial Verified 03/04/22 20:08 Swelling raspberry Allergy Facial Verified 03/04/22 20:08 Swelling Review of Systems Review of Systems: Yes all other systems are reviewed and are negative Constitutional: Constitutional: Reports no additional constitutional complaints, Denies body ache(s), Denies chills, Denies fever(s), Denies headache(s) and Denies weakness Eyes: Eyes: Reports no additional eye complaints and Denies change in vision ENT: Reports system reviewed and no additional complaints, except as documented, Denies dizziness, Denies headache(s), Denies nasal congestion, Denies nasal discharge and Denies neck pain Cardiovascular: Cardiovascular: Reports no additional cardiovascular complaints, Denies chest pain, Denies leg edema and Denies dyspnea Respiratory: Respiratory: Reports no additional respiratory complaints, Denies cough and Denies dyspnea Gastrointestinal: Gastrointestinal: Reports no additional gastrointestinal complaints, Denies abdominal pain, Denies diarrhea, Denies nausea and Denies vomiting Genitourinary: Genitourinary: Denies urinary incontinence Musculoskeletal: Musculoskeletal: Reports no additional musculoskeletal complaints, Denies back pain, Denies arthralgias, Denies joint swelling, Denies neck pain, Denies numbness and Denies tingling Integumentary/Breasts: Skin/Breast: Reports system reviewed and no additional complaints, except as docu and Denies rash Neurologic: Reports system reviewed and no additional complaints, except as documented, Denies dizziness, Denies headache(s), Denies numbness, Denies tingling and Denies weakness PMFSH Past Medical History Attestation statement: The following information was validated with the patient. Source: old records reviewed and nursing notes reviewed Medical History Alcohol abuse Alcohol use disorder, severe, dependence Asthma COPD (chronic obstructive pulmonary disease) DVT (deep venous thrombosis) Neuropathy Subdural hematoma Tobacco abuse Social History Social History Household Members: None Housing: House Do you presently have visiting nurse or other home services: No Alcohol intake: current Alcohol intake frequency: 3 or more drinks per day Alcohol type: hard liquor Patient Tobacco Use Status: Current everyday Tobacco user Tobacco use type: Cigarette Cigarette Packs Per Day: 1 Cigarettes Per Day: 1 Smoked in Last 30 Days: Yes e-Cigarette/Vaping Use: Never Used Second Hand Smoke Exposure: No Use of substances other than those prescribed or required for medical reasons: No Substance Use Type: Marijuana Advance Directives: Yes Advance Directives on File: Yes Advance Directives Date on File: 03/05/22 service: No Current occupational status: disabled Physical Exam ED Vital Signs: Vital Signs - 24 hr 03/15/22 11:24 03/15/22 15:35 Temperature 97.7 F 98.1 F Pulse Rate 89 87 Respiratory Rate 20 16 Blood Pressure 113/71 119/69 Pulse Oximetry 91 L 91 L Oxygen Delivery Method Room Air Room Air BMI result Body Mass Index 20.7 Const General: cooperative, healthy appearing, comfortable and no acute distress Orientation/consciousness: patient oriented x3 Limitations: no limitations HENMT Head: Yes normal to inspection Ears: hearing grossly normal bilaterally Eyes General: appearance normal, both eyes and all related structures Neck Neck: Yes normal visual inspection Chest Chest palpation & inspection: normal inspection of the chest Resp Effort & Inspection: normal respiratory effort Cardio Peripheral pulses: Peripheral pulses 2+ throughout GI Inspection: Yes normal to inspection Skin General skin exam: no rashes or lesions noted Neuro General: patient oriented x3 and moves all extremities Cognition (Neuro): normal cognition Course Course Course Narrative: Patient with recovery team. Plan is for patient to go to [facility] detox at 16:30 via a [employer] Medical Decision Making Medical Decision Making [facility] Narrative: 61-year-old male here seeking detox from alcohol. No physical complaints No concern for trauma Patient tells me he has been banned from multiple detox facilities so he may be difficult to place Will obtain labs, COVID screen, drug screen. Will involve recovery team Differential Diagnosis Differential Diagnoses: The differential diagnosis associated with the prese ntation includes alcohol intoxication Lab Data [facility] Lab Attestation statement: I reviewed the patient's lab results. 03/15/22 12:02 03/15/22 12:02 Labs: Lab Results 03/15/22 03/15/22 03/15/22 Range/Units 12:02 12:02 12:02 WBC 4.7 L (4.8-10.8) X10*3/uL RBC 4.18 L (4.60-5.80) X10*6/uL Hgb 11.7 L (14.0-18.0) g/dl Hct 36.1 L (42.0-52.0) % MCV 86.4 (80.0-98.0) fL MCH 28.0 (27.0-33.0) pg MCHC 32.4 (31.0-36.0) g/dl RDW 16.7 H (11.0-16.0) % Plt Count 338 D (160-400) X10*3/uL MPV 8.6 L (9.4-12.4) fL Immature Gran % (Auto) 0.4 (0.0-0.4) % Neut % (Auto) 54.3 (45-73) % Lymph % (Auto) 29.6 (20-40) % [place] % (Auto) 12.7 H (2-11) % Eos % (Auto) 1.5 (0-4) % Baso % (Auto) 1.5 (0-2) % Lymph # (Auto) 1.4 (1.2-4.9) X10*3/uL [place] # (Auto) 0.6 (0.1-1.2) X10*3/uL Eos # (Auto) 0.1 (0.0-0.4) X10*3/uL Baso # (Auto) 0.1 (0.0-0.2) X10*3/uL Abs Immat Gran (auto) 0.02 (0.00-0.03) X10*3/uL Absolute Neuts (auto) 2.5 (2.0-8.3) x10*3/uL Absolute Nucleated RBC 0.000 (0.0-0.012) X10*3/uL Nucleated RBC % (auto) 0.0 (0.0-0.2) /100WBC Sodium 142 (135-145) mmol/L Potassium 4.4 (3.3-5.1) mmol/L Chloride 102 (96-108) mmol/L Carbon Dioxide 28 (22-29) mmol/L Anion Gap 16 (12-20) BUN 10 (9-16) mg/dL Creatinine 0.82 (0.5-1.4) mg/dL Estim Creat Clear Calc 84.9 Estimated GFR > 60 Random Glucose 85 (60-115) mg/dL Calcium 9.2 (8.4-10.2) mg/dL Total Bilirubin 0.4 (0.0-1.0) mg/dL Direct Bilirubin 0.2 (0.0-0.5) mg/dL AST 36 (5-37) U/L ALT 34 (0-40) U/L Alkaline Phosphatase 117 (39-117) U/L Total Protein 7.6 (6.5-8.0) g/dL Albumin 4.2 (3.5-5.0) g/dL Ethyl Alcohol mg/dL COVID-19 (NELY) Negative (Negative) COVID-19 Clin Com See Note 03/15/22 Range/Units 12:02 WBC (4.8-10.8) X10*3/uL RBC (4.60-5.80) X10*6/uL Hgb (14.0-18.0) g/dl Hct (42.0-52.0) % MCV (80.0-98.0) fL MCH (27.0-33.0) pg MCHC (31.0-36.0) g/dl RDW (11.0-16.0) % Plt Count (160-400) X10*3/uL MPV (9.4-12.4) fL Immature Gran % (Auto) (0.0-0.4) % Neut % (Auto) (45-73) % Lymph % (Auto) (20-40) % [place] % (Auto) (2-11) % Eos % (Auto) (0-4) % Baso % (Auto) (0-2) % Lymph # (Auto) (1.2-4.9) X10*3/uL [place] # (Auto) (0.1-1.2) X10*3/uL Eos # (Auto) (0.0-0.4) X10*3/uL Baso # (Auto) (0.0-0.2) X10*3/uL Abs Immat Gran (auto) (0.00-0.03) X10*3/uL Absolute Neuts (auto) (2.0-8.3) x10*3/uL Absolute Nucleated RBC (0.0-0.012) X10*3/uL Nucleated RBC % (auto) (0.0-0.2) /100WBC Sodium (135-145) mmol/L Potassium (3.3-5.1) mmol/L Chloride (96-108) mmol/L Carbon Dioxide (22-29) mmol/L Anion Gap (12-20) BUN (9-16) mg/dL Creatinine (0.5-1.4) mg/dL Estim Creat Clear Calc Estimated GFR Random Glucose (60-115) mg/dL Calcium (8.4-10.2) mg/dL Total Bilirubin (0.0-1.0) mg/dL Direct Bilirubin (0.0-0.5) mg/dL AST (5-37) U/L ALT (0-40) U/L Alkaline Phosphatase (39-117) U/L Total Protein (6.5-8.0) g/dL Albumin (3.5-5.0) g/dL Ethyl Alcohol 272 mg/dL COVID-19 (NELY) (Negative) COVID-19 Clin Com Independent Interpretation I performed an independent interpretation of an: EKG (Independently reviewed the EKG which shows normal sinus rhythm with rate 93, normal GA, right bundle-branch block, normal QT) Discharge Plan Discharge Clinical Impression: Alcohol use disorder Patient Disposition: Xfer Other Transfer Details: detox Instructions: Alcohol Use Disorder (ED) Prescriptions: New Eliquis 5 mg tablet 5 mg PO BID Qty: 30 0RF albuterol sulfate 90 mcg/actuation HFA aerosol inhaler 2 puff inhalation Q4-6H PRN (Reason: shortness of breath or wheezing) Qty: 8.5 0RF No Action albuterol sulfate [ProAir HFA] 90 mcg/actuation HFA aerosol inhaler 2 puff inhalation Q4-6H PRN (Reason: Wheezing) Qty: 8.5 0RF Eliquis 5 mg tablet 5 mg PO BID 10 Days Qty: 20 0RF docusate sodium [DOK] 100 mg tablet 100 mg PO BID Combivent Respimat 20-100 mcg/actuation mist 1 puff inhalation QID
--- NOTE | 2022-03-15 11:38 | ECG_ITS ---
Test Reason : ALCOHOL ABUSE Blood Pressure : / mmHG Vent. Rate : 093 BPM Atrial Rate : 093 BPM P-R Int : 144 ms QRS Dur : 134 ms QT Int : 406 ms P-R-T Axes : 084 -81 053 degrees QTc Int : 504 ms Normal sinus rhythm Right bundle branch block Left anterior fascicular block Bifascicular block Abnormal ECG When compared with ECG of 06-MAR-2022 09:56, No significant change was found Referred By: Katey Chacon Electronically Signed By:WAYNE AVILEZ MD
[2022-03-15 12:07] LABS: MANUAL DIFF FLAG NO
[2022-03-15 12:09] LABS: Basophils Absolute Auto 0.1 X10*3/uL (0.0-0.2); Basophils Percent Auto 1.5 % (0-2); Eosinophils Absolute Auto 0.1 X10*3/uL (0.0-0.4); Eosinophils Percent Auto 1.5 % (0-4); Hematocrit 36.1 % (42.0-52.0); Hemoglobin 11.7 g/dl (14.0-18.0); Imm Gran Abs Auto 0.02 X10*3/uL (0.00-0.03); Imm Gran Pct Auto 0.4 % (0.0-0.4); Lymphocytes Absolute Auto 1.4 X10*3/uL (1.2-4.9); Lymphocytes Percent Auto 29.6 % (20-40); Mean Corpuscular HGB Conc 32.4 g/dl (31.0-36.0); Mean Corpuscular Volume 86.4 fL (80.0-98.0); Mean Platelet Volume 8.6 fL (9.4-12.4); Monocytes Absolute Auto 0.6 X10*3/uL (0.1-1.2); Monocytes Percent Auto 12.7 % (2-11); Neutrophils Absolute Auto 2.5 x10*3/uL (2.0-8.3); Neutrophils Percent Auto 54.3 % (45-73); Platelet Count 338 X10*3/uL (160-400); Red Blood Count 4.18 X10*6/uL (4.60-5.80); Red Cell Distribution Width 16.7 % (11.0-16.0); White Blood Count 4.7 X10*3/uL (4.8-10.8)
[2022-03-15 12:22] LABS: COVID-19 Test Negative (Negative); IDNOW Serial# 16C4AD1C
[2022-03-15 12:25] LABS: Ethanol 272 mg/dL
[2022-03-15 12:28] LABS: Alanine Aminotransferase 34 U/L (0-40); Albumin Level 4.2 g/dL (3.5-5.0); Alkaline Phosphatase 117 U/L (39-117); Anion Gap 16 (12-20); Aspartate Amino Transferase 36 U/L (5-37); Bilirubin Direct 0.2 mg/dL (0.0-0.5); Bilirubin Total 0.4 mg/dL (0.0-1.0); Blood Urea Nitrogen 10 mg/dL (9-16); Calcium 9.2 mg/dL (8.4-10.2); Carbon Dioxide 28 mmol/L (22-29); Chloride 102 mmol/L (96-108); Creatinine Clr Calc Pharmacy 84.9; Estimated Glomerular Filt Rate > 60; Glucose Random 85 mg/dL (60-115); Potassium 4.4 mmol/L (3.3-5.1); Sodium 142 mmol/L (135-145); Total Protein 7.6 g/dL (6.5-8.0)
--- NOTE | 2022-03-15 13:11 | MHC.RECOVRN ---
This marketing copywriter met w/ patient, patient laying in bed, under sheet. Patient requesting detox. Patient states was at [facility] one week ago, since d/c from Detox, patient reports drinking daily 2 pints ETOH. Patient states last drink, 1 pint ETOH this a.m. Patient states my body is sore all other , patient states no to N/V, headache, tactile disturbances. Patient does not appear diaphoretic or treumulous at this time. This marketing copywriter starting detox bedsearch, patient informed that [facility] has no male detox beds, patient agreeable to [facility] referral. Referral placed to [facility].
[2022-03-15 15:35] VITALS: BP 119/69; PULSE 87; RESP 16; TEMP 36.7; O2SAT 91
--- NOTE | 2022-03-15 16:06 | MHC.RECOVRN ---
Patient has secured detox admission at [facility] for 5pm. RC to coordinate BARBARA Kramer aware. Patient will need albuterol rx, eliquis rx to bring w/ patient to [facility]. Provider Melvi Ramesh agreeable to press writer script and is aware of plan.
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
== END 2022-03-15 16:46 | disposition other institution (70) ==
PROVIDERS: Nurse Practitioner Family; Emergency Provider Emergency Medicine; PCP Internal Medicine
DX: F10.129 Alcohol abuse with intoxication, unspecified (principal); Y90.8 Blood alcohol level of 240 mg/100 ml or more; Z20.822 Contact with and (suspected) exposure to COVID-19; Z20.828 Contact with and (suspected) exposure to other viral communicable diseases; Z79.899 Other long term (current) drug therapy; F17.210 Nicotine dependence, cigarettes, uncomplicated; Z71.6 Tobacco abuse counseling
CPT/HCPCS: 36415; 80048; 80076; 82077; 85025; 87635; 93005; 99284

== ENCOUNTER 2022-03-19 22:53 | Emergency (ER) | payer OTHER, SELFPAY ==
--- NOTE | ~2022-03-19 | XR_ITS ---
EXAMINATION: XR CHEST CLINICAL INFORMATION: Cough COMPARISON: 03/06/2022 TECHNIQUE: 2 views of the chest were obtained. FINDINGS: The lungs are well expanded. There is no focal consolidation, edema, or effusion. No pneumothorax. The cardiomediastinal silhouette is within normal limits. No acute osseous abnormality. XR/XR chest 2V IMPRESSION: Clear lungs.
[2022-03-19 22:57] VITALS: BP 93/59; PULSE 78; RESP 18; TEMP 36.3; O2SAT 95; BMI 21.4
[2022-03-19 23:07] LABS: Glucose, Whole Blood 98 mg/dL (60-115)
[2022-03-19 23:32] LABS: MANUAL DIFF FLAG NO
--- NOTE | 2022-03-19 23:39 | ED_ITS ---
HPI - Alcohol General Chief Complaint: ETOH/Substance Use Stated Complaint: ETOH Time Seen by Provider: 03/19/22 23:08 Source: patient Limitations: no limitations History of Present Illness HPI narrative: This is a 61-year-old male who admits to alcoholism, is a frequent visitor to the emergency department , who has multiple complaints. He complains of feeling short of breath, notes he does have history of COPD, does smoke cigarettes. He also feels weak. He did vomit once today. Denies any headache. He did have a fall about a month ago, denies any recent head injury. He denies any chest pain. He denies abdominal pain. Does feel unsteady with walking. He had said in triage that he had drank a pt [employer] this evening but tells me he last drank this morning. Patient states that he is here because he wants help . The patient was recently here for evaluation for detox. patient notes that he does have a chronic cough productive of phlegm. Denies fever Related Data Home Medications Medication Instructions Recorded Confirmed docusate sodium 100 mg tablet (DOK) 100 mg PO BID 02/06/22 03/05/22 ipratropium 20 mcg-albuterol 100 1 puff inhalation QID 02/06/22 03/05/22 mcg/actuation mist for inhalation (Combivent Respimat) Previous Rx's Medication Instructions Recorded albuterol sulfate 90 mcg/actuation 2 puff inhalation Q4-6H PRN 12/04/21 aerosol inhaler (ProAir HFA) Wheezing #8.5 grams apixaban 5 mg tablet (Eliquis) 5 mg PO BID 10 days #20 tabs 02/17/22 albuterol sulfate 90 mcg/actuation 2 puff inhalation Q4-6H PRN 03/15/22 aerosol inhaler shortness of breath or wheezing #8.5 grams apixaban 5 mg tablet (Eliquis) 5 mg PO BID #30 tabs 03/15/22 Allergies Allergy/AdvReac Type Severity Reaction Status Date / Time Peanut Butter Allergy Facial Verified 03/04/22 20:08 Swelling raspberry Allergy Facial Verified 03/04/22 20:08 Swelling Review of Systems Review of Systems: As per HPI Constitutional: Constitutional: Denies fever(s) Eyes: Eyes: Reports no additional eye complaints ENT: Reports system reviewed and no additional complaints, except as documented and Reports disequilibrium Cardiovascular: Cardiovascular: Reports no additional cardiovascular complaints Respiratory: Respiratory: Reports no additional respiratory complaints and Reports cough Gastrointestinal: Gastrointestinal: Reports no additional gastrointestinal complaints Musculoskeletal: Musculoskeletal: Reports no additional musculoskeletal complaints Neurologic: Reports disequilibrium Psychiatric: Psychiatric: Denies suicidal ideation [facility] Past Medical History Medical History Alcohol abuse Alcohol use disorder, severe, dependence Asthma COPD (chronic obstructive pulmonary disease) DVT (deep venous thrombosis) Neuropathy Subdural hematoma Tobacco abuse Social History Social History Household Members: None Housing: House Do you presently have visiting nurse or other home services: No Alcohol intake: current Alcohol intake frequency: 3 or more drinks per day Alcohol type: hard liquor Patient Tobacco Use Status: Current everyday Tobacco user Tobacco use type: Cigarette Cigarette Packs Per Day: 1 Cigarettes Per Day: 1 e-Cigarette/Vaping Use: Never Used Second Hand Smoke Exposure: No Substance Use Type: Marijuana Advance Directives: Yes Advance Directives on File: Yes Advance Directives Date on File: 03/05/22 service: No Current occupational status: disabled Physical Exam ED Vital Signs: Vital Signs - 24 hr 03/19/22 22:57 03/20/22 00:36 03/20/22 00:36 Temperature 97.4 F Pulse Rate 78 Respiratory Rate 18 Blood Pressure 93/59 L Pulse Oximetry 95 86 L 96 Oxygen Delivery Method Room Air Room Air Nasal Cannula Oxygen Flow Rate 2 03/20/22 00:38 Temperature Pulse Rate 87 Respiratory Rate 16 Blood Pressure 105/62 Pulse Oximetry 96 Oxygen Delivery Method Nasal Cannula Oxygen Flow Rate 2 BMI result Body Mass Index 21.4 Const General: no acute distress Orientation/consciousness: patient oriented x3 HENMT Head: Yes normal to inspection General nose exam: Normal external nose present Mouth: moist mucous membranes Throat: Yes posterior oropharynx normal, Yes tonsils normal and Yes uvula midline Eyes Eyelids: Yes eyelids normal Conjunctivae: conjunctivae normal Pupils: Equal, round and reactive pupils present Neck Neck: Yes supple Resp Other: loose phlegmy cough. Good air movement overall common no wheezes Effort & Inspection: normal respiratory effort Auscultation: clear to auscultation bilaterally and no wheezes Cardio Rate: regular rate Rhythm: regular rhythm Heart sounds: S1 normal heart sound present, S2 normal heart sound present, no gallops, no murmurs and no rubs GI Inspection: No distended Palpation (GI): Soft to palpation and nontender Auscultation: normal bowel sounds Skin General skin exam: other (Warm and dry) Neuro General: patient oriented x3 and CN's II-XI intact bilaterally Cranial nerves: Yes Equal, round and reactive pupils present Extrem General: Yes no pedal edema Psych Affect: normal affect Attitude: cooperative Medical Decision Making Medical Decision Making [facility] Narrative: patient with alcohol intoxication, has multiple complaints. Patient is a frequent visitor to the emergency department. Patient complained of shortness of breath but had no wheezing. DuoNeb treatment was given. Chest x-ray shows no infiltrate. Patient complains of weakness. CBC chemistry are baseline. Patient has mild anemia. Patient was treated with folate, lorazepam 2 mg p.o., multivitamin, thiamin. His alcohol level was 329. Patient is to be observed in the ED until he is sober can be discharged Lab Data [facility] Lab Attestation statement: I reviewed the patient's lab results. 03/19/22 23:28 03/19/22 23:28 Labs: Lab Results 03/19/22 03/19/22 03/19/22 Range/Units 23:02 23:28 23:28 WBC 5.2 (4.8-10.8) X10*3/uL RBC 3.64 L (4.60-5.80) X10*6/uL Hgb 10.3 L (14.0-18.0) g/dl Hct 31.5 L (42.0-52.0) % MCV 86.5 (80.0-98.0) fL MCH 28.3 (27.0-33.0) pg MCHC 32.7 (31.0-36.0) g/dl RDW 17.8 H (11.0-16.0) % Plt Count 252 D (160-400) X10*3/uL MPV 8.7 L (9.4-12.4) fL Immature Gran % (Auto) 0.4 (0.0-0.4) % Neut % (Auto) 43.8 L (45-73) % Lymph % (Auto) 43.2 H (20-40) % Lane % (Auto) 9.4 (2-11) % Eos % (Auto) 2.1 (0-4) % Baso % (Auto) 1.1 (0-2) % Lymph # (Auto) 2.3 (1.2-4.9) X10*3/uL Lane # (Auto) 0.5 (0.1-1.2) X10*3/uL Eos # (Auto) 0.1 (0.0-0.4) X10*3/uL Baso # (Auto) 0.1 (0.0-0.2) X10*3/uL Abs Immat Gran (auto) 0.02 (0.00-0.03) X10*3/uL Absolute Neuts (auto) 2.3 (2.0-8.3) x10*3/uL Absolute Nucleated RBC 0.000 (0.0-0.012) X10*3/uL Nucleated RBC % (auto) 0.0 (0.0-0.2) /100WBC Sodium 142 (135-145) mmol/L Potassium 3.9 (3.3-5.1) mmol/L Chloride 107 (96-108) mmol/L Carbon Dioxide 25 (22-29) mmol/L Anion Gap 14 (12-20) BUN 9 (9-16) mg/dL Creatinine 0.85 (0.5-1.4) mg/dL Estim Creat Clear Calc 84.9 Estimated GFR > 60 POC Glucose 98 (60-115) mg/dL Random Glucose 87 (60-115) mg/dL Calcium 8.6 D (8.4-10.2) mg/dL Magnesium 1.7 (1.6-2.6) mg/dL Total Bilirubin 0.3 (0.0-1.0) mg/dL AST 39 H (5-37) U/L ALT 24 (0-40) U/L Alkaline Phosphatase 96 (39-117) U/L Total Protein 6.6 (6.5-8.0) g/dL Albumin 3.7 (3.5-5.0) g/dL Ethyl Alcohol 329 H* mg/dL Radiology Impression Discussion of test interpretation with radiology: I have reviewed the radiologist's reading. Radiologist Impression: chest x-ray two views: IMPRESSION: Clear lungs. ? Medications Administered Discontinued Medications Generic Name Dose Route Start Last Admin Trade Name Frandy PRN Reason Stop Dose Admin Albuterol Sulfate 2.5 mg/ 0 mg 03/19/22 23:18 03/19/22 23:32 Ipratropium Aldrich 0.5 mg INHALE 03/19/22 23:19 1 each ONCE ONE Administration Folic Acid 1 mg 03/19/22 23:18 03/19/22 23:53 Folic Acid 1 Mg Tablet PO 03/19/22 23:19 1 mg ONCE ONE Administration Sodium Chloride 1,000 mls @ 999 mls/hr 03/19/22 23:30 03/20/22 00:07 Ns IV 03/20/22 00:30 999 mls/hr .Q1H1M NOHEMI Administration Lorazepam 2 mg 03/19/22 23:18 03/19/22 23:52 Lorazepam 1 Mg Tablet PO 03/19/22 23:19 2 mg ONCE ONE Administration Multivitamins/Vitamin C 1 tab 03/19/22 23:18 03/19/22 23:52 Multivitamin Tablet PO 03/19/22 23:19 1 tab ONCE ONE Administration Thiamine HCl 100 mg 03/19/22 23:18 03/19/22 23:53 Thiamine Hcl 100 Mg Tablet PO 03/19/22 23:19 100 mg ONCE ONE Administration Discharge Plan Discharge Clinical Impression: Alcoholic intoxication, Alcohol use disorder Patient Disposition: Still a Patient Prescriptions: No Action albuterol sulfate [ProAir HFA] 90 mcg/actuation HFA aerosol inhaler 2 puff inhalation Q4-6H PRN (Reason: Wheezing) Qty: 8.5 0RF Eliquis 5 mg tablet 5 mg PO BID 10 Days Qty: 20 0RF Eliquis 5 mg tablet 5 mg PO BID Qty: 30 0RF albuterol sulfate 90 mcg/actuation HFA aerosol inhaler 2 puff inhalation Q4-6H PRN (Reason: shortness of breath or wheezing) Qty: 8.5 0RF docusate sodium [DOK] 100 mg tablet 100 mg PO BID Combivent Respimat 20-100 mcg/actuation mist 1 puff inhalation QID
[2022-03-19] MEDS: Multivitamin TABLET 1 TAB PO (23:52)
[2022-03-19] MEDS: LORazepam 1 MG TABLET 2 MG PO (23:52)
[2022-03-19] MEDS: Thiamine HCL 100 MG TABLET PO (23:53)
[2022-03-19] MEDS: Folic Acid 1 MG TABLET PO (23:53)
[2022-03-20] VITALS (7 sets, daily range): BP systolic 100–133; BP diastolic 42–70; PULSE 65–87; RESP 15–16; TEMP 36.4–36.6; O2SAT 86–98
[2022-03-20 00:04] LABS: Alanine Aminotransferase 24 U/L (0-40); Albumin Level 3.7 g/dL (3.5-5.0); Alkaline Phosphatase 96 U/L (39-117); Anion Gap 14 (12-20); Aspartate Amino Transferase 39 U/L (5-37); Bilirubin Total 0.3 mg/dL (0.0-1.0); Blood Urea Nitrogen 9 mg/dL (9-16); Calcium 8.6 mg/dL (8.4-10.2); Carbon Dioxide 25 mmol/L (22-29); Chloride 107 mmol/L (96-108); Creatinine Clr Calc Pharmacy 84.9; Estimated Glomerular Filt Rate > 60; Ethanol 329 mg/dL; Glucose Random 87 mg/dL (60-115); Magnesium 1.7 mg/dL (1.6-2.6); Potassium 3.9 mmol/L (3.3-5.1); Sodium 142 mmol/L (135-145); Total Protein 6.6 g/dL (6.5-8.0)
[2022-03-20] MEDS: 0.9 % Sodium Chloride 1,000 ML 999 ML IV (00:07)
[2022-03-20 00:51] LABS: Basophils Absolute Auto 0.1 X10*3/uL (0.0-0.2); Basophils Percent Auto 1.1 % (0-2); Eosinophils Absolute Auto 0.1 X10*3/uL (0.0-0.4); Eosinophils Percent Auto 2.1 % (0-4); Hematocrit 31.5 % (42.0-52.0); Hemoglobin 10.3 g/dl (14.0-18.0); Imm Gran Abs Auto 0.02 X10*3/uL (0.00-0.03); Imm Gran Pct Auto 0.4 % (0.0-0.4); Lymphocytes Absolute Auto 2.3 X10*3/uL (1.2-4.9); Lymphocytes Percent Auto 43.2 % (20-40); Mean Corpuscular HGB Conc 32.7 g/dl (31.0-36.0); Mean Corpuscular Hemoglobin 28.3 pg (27.0-33.0); Mean Corpuscular Volume 86.5 fL (80.0-98.0); Mean Platelet Volume 8.7 fL (9.4-12.4); Monocytes Absolute Auto 0.5 X10*3/uL (0.1-1.2); Monocytes Percent Auto 9.4 % (2-11); Neutrophils Absolute Auto 2.3 x10*3/uL (2.0-8.3); Neutrophils Percent Auto 43.8 % (45-73); Platelet Count 252 X10*3/uL (160-400); Red Blood Count 3.64 X10*6/uL (4.60-5.80); Red Cell Distribution Width 17.8 % (11.0-16.0); White Blood Count 5.2 X10*3/uL (4.8-10.8)
--- NOTE | 2022-03-20 09:21 | MHC.RECOVRN ---
This writer technical publications met w/ patient. Patient laying in bed, awake to verbal stimuli. Patient reports left detox , patient states left AMA. Patient reports chest pain related to breathing. Discussed with patient recovery resources, list of detox contacts left at bedside, patient encouraged to call and f/u with detox. ED RN aware.
[2022-03-20 10:32] LABS: Amphetamine Screen Urine Not Detected (Not Detect); Barbiturates, Urine POSITIVE (Not Detect); Benzodiazepines Screen Urine Not Detected (Not Detect); Cannabinoid Screen Urine Not Detected (Not Detect); Cocaine Screen Urine Not Detected (Not Detect); Fentanyl, urine Not Detected (Not Detect); Opiate Screen Urine Not Detected (Not Detect); Phencyclidine Screen Urine Not Detected (Not Detect)
== END 2022-03-20 11:53 | disposition home or self-care (01) ==
PROVIDERS: Emergency Provider Emergency Medicine; PCP Internal Medicine
DX: F10.129 Alcohol abuse with intoxication, unspecified (principal); Y90.8 Blood alcohol level of 240 mg/100 ml or more; R06.02 Shortness of breath; R07.89 Other chest pain; R11.10 Vomiting, unspecified; F12.90 Cannabis use, unspecified, uncomplicated; F17.210 Nicotine dependence, cigarettes, uncomplicated; Z71.41 Alcohol abuse counseling and surveillance of alcoholic; Z71.6 Tobacco abuse counseling; Z79.899 Other long term (current) drug therapy
CPT/HCPCS: 36415; 71046; 80053; 80307; 82077; 82947; 83735; 85025; 99284

== ENCOUNTER 2022-03-23 20:00 | Emergency (ER) | payer OTHER, SELFPAY ==
[2022-03-23 20:08] VITALS: BP 104/73; PULSE 78; RESP 16; TEMP 37.3; O2SAT 95
--- NOTE | 2022-03-23 20:08 | MHC.EDTECH ---
PATIENT CAME IN VIA [facility] AT [facility] ,PATIENT WAS MOVED TO [facility] ,VITALS SIGN ,RN GORGE IN ROOM TRIAGING PATIENT .
[2022-03-23 20:09] VITALS: BMI 20.7
--- NOTE | 2022-03-23 21:45 | ED.ALCOHOL ---
HPI - Alcohol General Chief Complaint: ETOH/Substance Use Stated Complaint: etoh Time Seen by Provider: 03/23/22 21:08 Source: patient and EMS Mode of arrival: EMS Limitations: no limitations History of Present Illness HPI narrative: Patient comes to emergency room complaining of alcohol intoxication. Patient states he drank 1 pt of Southern Comfort today. Patient denies suicidal or homicidal ideation. Patient states that he is ?allows to drunk?. Patient states that he wants detox. Patient denies any falls recently. Denies pain anywhere Related Data Home Medications Medication Instructions Recorded Confirmed docusate sodium 100 mg tablet (DOK) 100 mg PO BID 02/06/22 03/05/22 ipratropium 20 mcg-albuterol 100 1 puff inhalation QID 02/06/22 03/05/22 mcg/actuation mist for inhalation (Combivent Respimat) Previous Rx's Medication Instructions Recorded albuterol sulfate 90 mcg/actuation 2 puff inhalation Q4-6H PRN 12/04/21 aerosol inhaler (ProAir HFA) Wheezing #8.5 grams apixaban 5 mg tablet (Eliquis) 5 mg PO BID 10 days #20 tabs 02/17/22 albuterol sulfate 90 mcg/actuation 2 puff inhalation Q4-6H PRN 03/15/22 aerosol inhaler shortness of breath or wheezing #8.5 grams apixaban 5 mg tablet (Eliquis) 5 mg PO BID #30 tabs 03/15/22 Allergies Allergy/AdvReac Type Severity Reaction Status Date / Time Peanut Butter Allergy Facial Verified 03/04/22 20:08 Swelling raspberry Allergy Facial Verified 03/04/22 20:08 Swelling Review of Systems Review of Systems: Constitutional : No Weight loss, No Fever, No Chills, No Night Sweats, No Fatigue, No Malaise ENT/Mouth : No Hearing loss, No Ear Pain, No Nasal Congestion, No Sinus Pain, No Hoarseness, No sore throat, No Rhinorrhea, No Swallowing Difficulty Eyes: No Eye Pain, No Swelling, No Redness, No Foreign Body, No Discharge, No Vision Changes Cardiovascular : No Chest Pain, No SOB, No Dyspnea on Exertion, No Orthopnea, No Edema, No Palpitations Respiratory : No Cough, No Sputum, No Wheezing, No Smoke Exposure, No Dyspnea Gastrointestinal : No Nausea, No Vomiting, No Diarrhea, No Constipation, No abdominal Pain, No Hematochezia, No Melena Genitourinary : no irregular bleeding, No Dysuria, No Urinary Frequency, No Hematuria, No Urinary Incontinence, No Urgency, No Flank Pain, No Urinary Flow Changes, No Hesitancy Musculoskeletal : No joint pain, No Myalgias, No Joint Swelling Skin : No Skin Lesions, No rash Neuro : No Weakness, No Numbness, No Paresthesias, No Loss of Consciousness, No Dizziness, No Headache Psych : No Anxiety/Panic, No Depression, No SI/HI/AH/VH, No Social Issues, Heme/Lymph: No Bruising, No Bleeding,No Lymphadenopathy Endocrine : No Polyuria, No Polydipsia, No Temperature Intolerance [facility] Past Medical History Medical History Alcohol abuse Alcohol use disorder, severe, dependence Asthma COPD (chronic obstructive pulmonary disease) DVT (deep venous thrombosis) Neuropathy Subdural hematoma Tobacco abuse Social History Social History Household Members: None Housing: House Do you presently have visiting nurse or other home services: No Alcohol intake: current Alcohol intake frequency: 3 or more drinks per day Alcohol type: hard liquor Patient Tobacco Use Status: Current everyday Tobacco user Tobacco use type: Cigarette Cigarette Packs Per Day: 1 Cigarettes Per Day: 1 e-Cigarette/Vaping Use: Never Used Second Hand Smoke Exposure: No Substance Use Type: Marijuana Advance Directives: Yes Advance Directives on File: Yes Advance Directives Date on File: 03/05/22 service: No Current occupational status: disabled Physical Exam ED Vital Signs: Vital Signs - 24 hr 03/23/22 20:08 Temperature 99.2 F Pulse Rate 78 Respiratory Rate 16 Blood Pressure 104/73 Pulse Oximetry 95 Oxygen Delivery Method Room Air BMI result Body Mass Index 20.7 Const Other: Appearance: Alert. Oriented X3. No acute distress. Eyes: Pupils equal, round and reactive to light. ENT: Pharynx normal. Neck: Normal inspection. Neck supple. No lymph nodes noted. No crepitus CVS: Normal heart rate and rhythm. Pulses normal. Normal S1 and S2 Respiratory: No respiratory distress. Breath sounds normal. No Wheezing. No rales Abdomen: Soft and nontender. No rigidity. No distention. Skin: Skin warm and dry. Normal skin color. Normal skin turgor. Extremities: No lower extremity edema. No Lacerations. No Rash Neuro: Oriented X 3. No motor deficit. No sensory deficit. Moving all extremities. No slurred speech. CN 2 through 12 grossly intact Psych: calm, cooperative, normal affect Course Course Course Narrative: Clinically, patient is sober. Patient has been walking around the ED, stable gait, normal speech, no slurring, alert and oriented x4. Patient states that he change his mind regarding detox and would like to be discharged. -patient called a cab which will be picking him up. Medical Decision Making Differential Diagnosis Differential Diagnoses: The differential diagnosis associated with the presentation includes (Alcohol intoxication) Discharge Plan Discharge Clinical Impression: Alcohol abuse Patient Disposition: Home, Self-Care Instructions: Alcohol Intoxication (ED) Additional Instructions: Please follow-up with your primary care physician tomorrow. If you have any worsening or new symptoms, please return to the emergency room or call 911 Prescriptions: No Action albuterol sulfate [ProAir HFA] 90 mcg/actuation HFA aerosol inhaler 2 puff inhalation Q4-6H PRN (Reason: Wheezing) Qty: 8.5 0RF Eliquis 5 mg tablet 5 mg PO BID 10 Days Qty: 20 0RF Eliquis 5 mg tablet 5 mg PO BID Qty: 30 0RF albuterol sulfate 90 mcg/actuation HFA aerosol inhaler 2 puff inhalation Q4-6H PRN (Reason: shortness of breath or wheezing) Qty: 8.5 0RF docusate sodium [DOK] 100 mg tablet 100 mg PO BID Combivent Respimat 20-100 mcg/actuation mist 1 puff inhalation QID
== END 2022-03-23 22:10 | disposition home or self-care (01) ==
PROVIDERS: Emergency Provider Emergency Medicine; PCP Internal Medicine
DX: F10.10 Alcohol abuse, uncomplicated (principal); Y90.9 Presence of alcohol in blood, level not specified; F17.210 Nicotine dependence, cigarettes, uncomplicated; F12.90 Cannabis use, unspecified, uncomplicated; Z86.718 Personal history of other venous thrombosis and embolism; Z79.01 Long term (current) use of anticoagulants; Z79.899 Other long term (current) drug therapy
CPT/HCPCS: 99283

== ENCOUNTER 2022-03-25 15:28 | Emergency (ER) | payer OTHER, SELFPAY ==
[2022-03-25 15:32] VITALS: BP 112/70; BP 138/90; PULSE 80; PULSE 87; RESP 16; TEMP 36.3; O2SAT 98; BMI 20.7
--- NOTE | 2022-03-25 15:48 | ED.ALCOHOL ---
HPI - Alcohol General Chief Complaint: ETOH/Substance Use Stated Complaint: seeking detox Time Seen by Provider: 03/25/22 15:35 Source: patient History of Present Illness HPI narrative: Patient with a longstanding history of alcohol use disorder, approximately 40 years per patient, presents requesting detox. Last drink was today. He states he had approximately 1 pt of [place]. He states he typically drinks 2 pt of Southern Comfort per day. He was last seen in this emergency department 2 days ago at the time initially requesting detox but eventually changed his mind. He states he is ready today. He does not remember the last time with outpatient detox but states it was relatively recently. He denies any significant medical complaints such as cough or shortness of breath or fevers or nausea vomiting diarrhea. He denies abdominal pain. He states he does have a history of significant withdrawal. 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 He denies other drugs. He does report smoking tobacco daily. Has a history of COPD. He is on Eliquis for blood clots in his legs. He denies missing doses. He denies swelling or pain or symptoms of DVT currently. Related Data Home Medications Medication Instructions Recorded Confirmed docusate sodium 100 mg tablet (DOK) 100 mg PO BID 02/06/22 03/05/22 ipratropium 20 mcg-albuterol 100 1 puff inhalation QID 02/06/22 03/05/22 mcg/actuation mist for inhalation (Combivent Respimat) Previous Rx's Medication Instructions Recorded albuterol sulfate 90 mcg/actuation 2 puff inhalation Q4-6H PRN 12/04/21 aerosol inhaler (ProAir HFA) Wheezing #8.5 grams apixaban 5 mg tablet (Eliquis) 5 mg PO BID 10 days #20 tabs 02/17/22 albuterol sulfate 90 mcg/actuation 2 puff inhalation Q4-6H PRN 03/15/22 aerosol inhaler shortness of breath or wheezing #8.5 grams apixaban 5 mg tablet (Eliquis) 5 mg PO BID #30 tabs 03/15/22 Allergies Allergy/AdvReac Type Severity Reaction Status Date / Time Peanut Butter Allergy Facial Verified 03/04/22 20:08 Swelling raspberry Allergy Facial Verified 03/04/22 20:08 Swelling Review of Systems Constitutional: Comments: No fevers or chills Cardiovascular: Comments: No chest pain or palpitations Respiratory: Comments: No increase in baseline cough. No shortness of breath. Gastrointestinal: Comments: No nausea vomiting diarrhea constipation or abdominal pain Musculoskeletal: Comments: No recent injuries Integumentary/Breasts: Comments: No rash or change in skin color Neurologic: Comments: No focal weakness PMFSH Past Medical History Medical History Alcohol abuse Alcohol use disorder, severe, dependence Asthma COPD (chronic obstructive pulmonary disease) DVT (deep venous thrombosis) Neuropathy Subdural hematoma Tobacco abuse Social History Social History Household Members: None Housing: House Do you presently have visiting nurse or other home services: No Alcohol intake: current Alcohol intake frequency: 0-2 drinks per day Alcohol type: hard liquor Patient Tobacco Use Status: Current everyday Tobacco user Tobacco use type: Cigarette Cigarette Packs Per Day: 1 Cigarettes Per Day: 1 Smoked in Last 30 Days: Yes e-Cigarette/Vaping Use: Never Used Second Hand Smoke Exposure: No Substance Use Type: Marijuana Advance Directives: Yes Advance Directives on File: Yes Advance Directives Date on File: 03/05/22 service: No Current occupational status: disabled Physical Exam ED Vital Signs: Vital Signs - 24 hr 03/25/22 15:32 Temperature 97.4 F Pulse Rate 87 Respiratory Rate 16 Blood Pressure 112/70 Pulse Oximetry 98 Oxygen Delivery Method Room Air BMI result Body Mass Index 20.7 Const Other: Awake alert. No acute distress HENMT Other: Positive alcohol type halitosis Eyes Other: No scleral icterus Resp Other: Diminished bilaterally without wheezes rales or rhonchi Cardio Other: Regular rate and rhythm without murmurs rubs or gallops GI Other: Soft nontender nondistended Skin Other: Warm pink and dry without rash or jaundice Neuro Other: Awake alert. No focal neuro deficit. Mildly slurred speech. Extrem Other: No pedal edema. No calf tenderness Psych Other: No suicidal or homicidal ideation Medical Decision Making Medical Decision Making MDM Narrative: Patient with longstanding alcohol use disorder. Well known by our care team here. He very frequently comes in requesting detox but then refuses to go. After discussion with care team, it is felt the best strategy would be to discuss the case with his outpatient team and try to address this through wraparound services. If unable to impact him significantly in this way, Section 35 will be considered. Review shows lab work was done approximately 3 days ago and was unremarkable. He is stable here in the emergency department and does not need a repeat set of labs. We will observe for stability and discharge as described above 16:22. Patient is up and ambulatory and requesting discharge home. He is stable and not ataxic. He is responding appropriatly There is no obvious wrist to self or others at this time. He is stable for discharge home Discharge Plan Discharge Clinical Impression: Alcohol abuse, Alcoholic intoxication Patient Disposition: Home, Self-Care Instructions: Alcohol Intoxication (ED), Alcohol Use Disorder (ED) Additional Instructions: Follow-up with your outpatient care team. Try to slowly wean down the amount of alcohol you consume on a daily basis. Prescriptions: No Action albuterol sulfate [ProAir HFA] 90 mcg/actuation HFA aerosol inhaler 2 puff inhalation Q4-6H PRN (Reason: Wheezing) Qty: 8.5 0RF Eliquis 5 mg tablet 5 mg PO BID 10 Days Qty: 20 0RF Eliquis 5 mg tablet 5 mg PO BID Qty: 30 0RF albuterol sulfate 90 mcg/actuation HFA aerosol inhaler 2 puff inhalation Q4-6H PRN (Reason: shortness of breath or wheezing) Qty: 8.5 0RF docusate sodium [DOK] 100 mg tablet 100 mg PO BID Combivent Respimat 20-100 mcg/actuation mist 1 puff inhalation QID Interventions: [place]-Suicide Risk Severity Scale Last Done: 03/25/22 15:41
--- NOTE | 2022-03-25 16:08 | MHC.RECOVRN ---
Met with pt in ED6 to discuss plan of care. Pt here seeking ATS, reports alcohol use daily, 2 pints Southern Comfort. Discussed plan with pt to follow up outpatient and engage community supports. Pt has PCP, no other providers. Pt interested in CC referral, t/w will place. Pt is open to outpatient support approach, recognizes pattern of ED visits to ATS has not been working effectively. Pt owns a residence and has a working cell phone. Pt is able to advocate for self in regards to ATS placement, pt has successfully been [facility] to [facility] and [facility] from home. Pt provided with recovery resources and phone numbers for ATS facilities. Discussed with Alexandra Spicer APRN, as well as provider.
== END 2022-03-25 17:32 | disposition home or self-care (01) ==
PROVIDERS: Emergency Provider Emergency Medicine
DX: F10.220 Alcohol dependence with intoxication, uncomplicated (principal); Y90.9 Presence of alcohol in blood, level not specified; F12.90 Cannabis use, unspecified, uncomplicated; Z86.718 Personal history of other venous thrombosis and embolism; F17.210 Nicotine dependence, cigarettes, uncomplicated; Z79.01 Long term (current) use of anticoagulants
CPT/HCPCS: 99283; 99284

== ENCOUNTER 2022-03-26 15:35 | Emergency (ER) | payer OTHER, SELFPAY ==
[2022-03-26 15:43] VITALS: BP 118/69; BP 124/80; PULSE 101; PULSE 88; TEMP 36.7; O2SAT 90; O2SAT 97; BMI 22.6
[2022-03-26 17:05] LABS: COVID-19 Test Negative (Negative); IDNOW Serial# BCCEAD1C
--- NOTE | 2022-03-26 17:06 | ED.PSYCH ---
HPI - Psych General Chief Complaint: ETOH/Substance Use Stated Complaint: Seeking Detox,Alcohol Withdrawal Time Seen by Provider: 03/26/22 15:57 Source: patient Mode of arrival: EMS Limitations: no limitations History of Present Illness HPI Narrative: Patient comes to the emergency room requesting detox. This is patient's 11th visit in 1 month. Patient usually comes by ambulance, states that he wants detox, then changes her mind and requests to be discharged. Patient is not SI or HI. Patient states that this time he is serious about it. Patient reports drinking [place] this morning Related Data Home Medications Medication Instructions Recorded Confirmed docusate sodium 100 mg tablet (DOK) 100 mg PO BID 02/06/22 03/05/22 ipratropium 20 mcg-albuterol 100 1 puff inhalation QID 02/06/22 03/05/22 mcg/actuation mist for inhalation (Combivent Respimat) Previous Rx's Medication Instructions Recorded albuterol sulfate 90 mcg/actuation 2 puff inhalation Q4-6H PRN 12/04/21 aerosol inhaler (ProAir HFA) Wheezing #8.5 grams apixaban 5 mg tablet (Eliquis) 5 mg PO BID 10 days #20 tabs 02/17/22 albuterol sulfate 90 mcg/actuation 2 puff inhalation Q4-6H PRN 03/15/22 aerosol inhaler shortness of breath or wheezing #8.5 grams apixaban 5 mg tablet (Eliquis) 5 mg PO BID #30 tabs 03/15/22 Allergies Allergy/AdvReac Type Severity Reaction Status Date / Time Peanut Butter Allergy Facial Verified 03/04/22 20:08 Swelling raspberry Allergy Facial Verified 03/04/22 20:08 Swelling Review of Systems Review of Systems: Constitutional : No Weight loss, No Fever, No Chills, No Night Sweats, No Fatigue, No Malaise ENT/Mouth : No Hearing loss, No Ear Pain, No Nasal Congestion, No Sinus Pain, No Hoarseness, No sore throat, No Rhinorrhea, No Swallowing Difficulty Eyes: No Eye Pain, No Swelling, No Redness, No Foreign Body, No Discharge, No Vision Changes Cardiovascular : No Chest Pain, No SOB, No Dyspnea on Exertion, No Orthopnea, No Edema, No Palpitations Respiratory : No Cough, No Sputum, No Wheezing, No Smoke Exposure, No Dyspnea Gastrointestinal : No Nausea, No Vomiting, No Diarrhea, No Constipation, No abdominal Pain, No Hematochezia, No Melena Genitourinary : no irregular bleeding, No Dysuria, No Urinary Frequency, No Hematuria, No Urinary Incontinence, No Urgency, No Flank Pain, No Urinary Flow Changes, No Hesitancy Musculoskeletal : No joint pain, No Myalgias, No Joint Swelling Skin : No Skin Lesions, No rash Neuro : No Weakness, No Numbness, No Paresthesias, No Loss of Consciousness, No Dizziness, No Headache Psych : No Anxiety/Panic, No Depression, No SI/HI/AH/VH, requesting detox for alcohol Heme/Lymph: No Bruising, No Bleeding,No Lymphadenopathy Endocrine : No Polyuria, No Polydipsia, No Temperature Intolerance [facility] Past Medical History Medical History Alcohol abuse Alcohol use disorder, severe, dependence Asthma COPD (chronic obstructive pulmonary disease) DVT (deep venous thrombosis) Neuropathy Subdural hematoma Tobacco abuse Social History Social History Household Members: None Housing: House Do you presently have visiting nurse or other home services: No Alcohol intake: current Alcohol intake frequency: 0-2 drinks per day Alcohol type: hard liquor Patient Tobacco Use Status: Current everyday Tobacco user Tobacco use type: Cigarette Cigarette Packs Per Day: 1 Cigarettes Per Day: 1 e-Cigarette/Vaping Use: Never Used Second Hand Smoke Exposure: No Substance Use Type: Marijuana Advance Directives: Yes Advance Directives on File: Yes Advance Directives Date on File: 03/05/22 service: No Current occupational status: disabled Physical Exam Vital Signs: Vital Signs: Last Vital Signs Temp 98.0 F 03/26/22 15:43 Pulse 101 H 03/26/22 15:43 BP 118/69 03/26/22 15:43 Pulse Ox 90 L 03/26/22 15:43 O2 Del Method 03/26/22 15:43 BMI result Body Mass Index 22.6 Const: Other: Appearance: Alert. Oriented X3. No acute distress. Eyes: Pupils equal, round and reactive to light. ENT: Pharynx normal. Neck: Normal inspection. Neck supple. No lymph nodes noted. No crepitus CVS: Normal heart rate and rhythm. Pulses normal. Normal S1 and S2 Respiratory: No respiratory distress. Breath sounds normal. No Wheezing. No rales Abdomen: Soft and nontender. No rigidity. No distention. Skin: Skin warm and dry. Normal skin color. Normal skin turgor. Extremities: No lower extremity edema. No Lacerations. No Rash Neuro: Oriented X 3. No motor deficit. No sensory deficit. Moving all extremities. No slurred speech. CN 2 through 12 grossly intact Psych: calm, cooperative, normal affect Course Course Course Narrative: -patient states that this time he is serious about detox. -patient denies suicidal or homicidal ideation, not on a Section 12 -care team consult pending -physician observation status 17:09 Medical Decision Making Medical Decision Making [facility] Narrative: -patient was seen by the curriculum coach, patient was provided with information. Patient does not want to go to detox from here, states he will make his own phone calls in the morning. Patient asking to be discharged Patient is alert and oriented x3, no acute distress, ambulatory with steady gait, clinically sober Differential Diagnosis Differential Diagnoses: The differential diagnosis associated with the presentation includes (Alcohol abuse, dependent) Lab Data Labs: Lab Results 03/26/22 Range/Units 16:41 COVID-19 (NELY) Negative (Negative) COVID-19 Clin Com See Note Discharge Plan Discharge Clinical Impression: Alcohol abuse Patient Disposition: Home, Self-Care Instructions: Alcohol Dependence (ED) Additional Instructions: Please follow-up with your primary care physician tomorrow. If you have any worsening or new symptoms, please return to the emergency room or call 911 Prescriptions: No Action albuterol sulfate [ProAir HFA] 90 mcg/actuation HFA aerosol inhaler 2 puff inhalation Q4-6H PRN (Reason: Wheezing) Qty: 8.5 0RF Eliquis 5 mg tablet 5 mg PO BID 10 Days Qty: 20 0RF Eliquis 5 mg tablet 5 mg PO BID Qty: 30 0RF albuterol sulfate 90 mcg/actuation HFA aerosol inhaler 2 puff inhalation Q4-6H PRN (Reason: shortness of breath or wheezing) Qty: 8.5 0RF docusate sodium [DOK] 100 mg tablet 100 mg PO BID Combivent Respimat 20-100 mcg/actuation mist 1 puff inhalation QID Interventions: [place]-Suicide Risk Severity Scale Last Done: 03/26/22 18:35
--- NOTE | 2022-03-26 18:31 | PC.NURSE ---
Pt reports he feels crappy believes this feeling is related to ETOH withdrawal, when asked about symptoms he is experiencing, pt reports hands and feet are numb. No visible tremor noted, no diaphoresis, pt answering questions appropriately, alert, no acute distress. Asking to go to [facility] in [place] or [facility]. Pt currently eating dinner.
--- NOTE | 2022-03-26 20:34 | MHC.CARE ---
The Care Team met with Edgardo to inform him that there are no Detox beds available [facility]. The It Security Engineer Storm gave Edgardo his phone number , and told him that he could call the Recovery coaches in the morning and the recovery coaches will begin a new search for open Detox beds for Edgardo. Edgardo said that, he would call Storm tomorrow. Edgardo was discharged and he called for his own ride.
--- NOTE | 2022-03-26 21:21 | MHC.RECOVSUP ---
? Reason for consult:ETOH o? Current location:[id number]? o? Identified substance use concern:? -? Seeking ATS (detox) -? Support ? Intervention: o? Community resources provided o? Harm reduction discussion ? Plan: o? Bed search in progress to ? Additional information:RC met with pt discussed ATS services, pt is interested. [facility] and [facility], [facility] has nothing until tomorrow and pt doesn't want to go to [facility].
== END 2022-03-26 20:46 | disposition home or self-care (01) ==
PROVIDERS: Emergency Provider Emergency Medicine
DX: F10.139 Alcohol abuse with withdrawal, unspecified (principal); Y90.9 Presence of alcohol in blood, level not specified; F17.210 Nicotine dependence, cigarettes, uncomplicated; Z71.6 Tobacco abuse counseling; Z71.41 Alcohol abuse counseling and surveillance of alcoholic; Z79.899 Other long term (current) drug therapy; Z20.822 Contact with and (suspected) exposure to COVID-19; Z20.828 Contact with and (suspected) exposure to other viral communicable diseases
CPT/HCPCS: 87635; 99284

== ENCOUNTER 2022-04-01 17:05 | Emergency (ER) | payer OTHER, SELFPAY ==
[2022-04-01 17:29] VITALS: BP 136/76; PULSE 88; O2SAT 96
--- NOTE | 2022-04-01 17:35 | ED_ITS ---
HPI - Alcohol General Stated Complaint: DEPRESSED,ETOH INTOX PER EMS Time Seen by Provider: 04/01/22 17:19 Source: patient and old records reviewed History of Present Illness HPI narrative: Patient states ?I am here because I went home from detox this morning and got drunk?. He states he is here because he would like to get help to get back into detox. He has a long history of alcohol use disorder. He has no physical complaints or new medical complaints. He states he has some depression and frustration but no suicidal ideation at this time. He was in this emergency department 12 times in March with similar presentations. His outpatient care team is working on a longer-term detox plan for him. They are considering Section 12. He states he was in detox at [facility] since Wednesday. He was due to be discharged tomorrow but left early today. Related Data Home Medications Medication Instructions Recorded Confirmed docusate sodium 100 mg tablet (DOK) 100 mg PO BID 02/06/22 03/05/22 ipratropium 20 mcg-albuterol 100 1 puff inhalation QID 02/06/22 03/05/22 mcg/actuation mist for inhalation (Combivent Respimat) Previous Rx's Medication Instructions Recorded albuterol sulfate 90 mcg/actuation 2 puff inhalation Q4-6H PRN 12/04/21 aerosol inhaler (ProAir HFA) Wheezing #8.5 grams apixaban 5 mg tablet (Eliquis) 5 mg PO BID 10 days #20 tabs 02/17/22 albuterol sulfate 90 mcg/actuation 2 puff inhalation Q4-6H PRN 03/15/22 aerosol inhaler shortness of breath or wheezing #8.5 grams apixaban 5 mg tablet (Eliquis) 5 mg PO BID #30 tabs 03/15/22 Allergies Allergy/AdvReac Type Severity Reaction Status Date / Time Peanut Butter Allergy Facial Verified 03/04/22 20:08 Swelling raspberry Allergy Facial Verified 03/04/22 20:08 Swelling Review of Systems Constitutional: Comments: No fevers or chills Cardiovascular: Comments: No chest pain Respiratory: Comments: Positive cough with diagnosis of COVID last Wednesday. Gastrointestinal: Comments: No nausea vomiting or abdominal pain Musculoskeletal: Comments: No new extremity pain but he ambulates with a cane chronically Neurologic: Comments: No focal weakness Psychiatric: Comments: Expresses some depression without suicidal ideation or homicidal ideation [facility] Past Medical History Medical History Alcohol abuse Alcohol use disorder, severe, dependence Asthma COPD (chronic obstructive pulmonary disease) DVT (deep venous thrombosis) Neuropathy Subdural hematoma Tobacco abuse Social History Social History Household Members: None Housing: House Do you presently have visiting nurse or other home services: No Alcohol intake: current Alcohol intake frequency: 0-2 drinks per day Alcohol type: hard liquor Patient Tobacco Use Status: Current everyday Tobacco user Tobacco use type: Cigarette Cigarette Packs Per Day: 1 Cigarettes Per Day: 1 e-Cigarette/Vaping Use: Never Used Second Hand Smoke Exposure: No Substance Use Type: Marijuana Advance Directives Date on File: 03/05/22 service: No Current occupational status: disabled Physical Exam ED Vital Signs: Vital Signs - 24 hr 04/01/22 17:37 Temperature 97.8 F Pulse Rate 72 Respiratory Rate 16 Blood Pressure 109/58 L Pulse Oximetry 100 Oxygen Delivery Method Room Air Const Other: Awake alert. No acute distress. Ambulatory with a steady gait using his cane HENMT Other: Normocephalic atraumatic. ETOH halitosis Resp Other: Cough. Expiratory wheezes. No dyspnea. No focal rales Cardio Other: Regular rate and rhythm GI Other: Soft nontender Skin Other: Warm pink and dry without rash Neuro Other: Nonfocal neuro exam Medical Decision Making Medical Decision Making MDM Narrative: Patient with longstanding severe alcohol use disorder presenting with acute intoxication. He states he wants to go back and of inpatient detox but he is unlikely candidate as he just left today. I discussed his situation with the care team. He would be a good candidate for Section 35 petition. In the meantime we will observe him here until he was stable for discharge home. I do not think we need to repeat his lab work today as he has no evidence of acute medical deterioration at this time. I spoke with ice hockey coach and care team. Plan will be to keep him in the emergency department overnight and try to initiate a Section 35 in the morning. Patient is voluntary at this time and if he decides to leave he will be allowed to do so. 18:04. Patient eloped Discharge Plan Discharge Clinical Impression: Alcohol abuse Patient Disposition: Elopement Prescriptions: No Action albuterol sulfate [ProAir HFA] 90 mcg/actuation HFA aerosol inhaler 2 puff inhalation Q4-6H PRN (Reason: Wheezing) Qty: 8.5 0RF Eliquis 5 mg tablet 5 mg PO BID 10 Days Qty: 20 0RF Eliquis 5 mg tablet 5 mg PO BID Qty: 30 0RF albuterol sulfate 90 mcg/actuation HFA aerosol inhaler 2 puff inhalation Q4-6H PRN (Reason: shortness of breath or wheezing) Qty: 8.5 0RF docusate sodium [DOK] 100 mg tablet 100 mg PO BID Combivent Respimat 20-100 mcg/actuation mist 1 puff inhalation QID
[2022-04-01 17:37] VITALS: BP 109/58; PULSE 72; RESP 16; TEMP 36.6; O2SAT 100
--- NOTE | 2022-04-01 17:48 | MHC.RECOVSUP ---
? Reason for consult Recovery Support o Current location: ED22H o Identified substance use concern: Alcohol - Seeking ATS (detox) - Support ? Intervention: o Community resources provided o Harm reduction discussion ? Plan: o Follow up tomorrow o Patient awaiting crisis evaluation o Patient to follow up with [facility] after discharge ? Additional information: Care team Working on Section 35 for patient
[2022-04-01 18:17] VITALS: BMI 20.7
--- NOTE | 2022-04-01 18:18 | PC.NURSE ---
pt refusing triage vital signs
--- NOTE | 2022-04-01 18:18 | PC.NURSE ---
pt ambulated to front of hospital to smoke a cigarette
--- NOTE | 2022-04-01 19:11 | PC.NURSE ---
as pt able to ambulate independently and with a steady gaite. pt wanted to finish his cigarette before coming back inside. when informed he could not do this pt chose to leave the hospital. Provider aware
== END 2022-04-01 19:13 | disposition left against medical advice (07) ==
PROVIDERS: Emergency Provider Emergency Medicine
DX: F10.129 Alcohol abuse with intoxication, unspecified (principal); Y90.9 Presence of alcohol in blood, level not specified; F33.1 Major depressive disorder, recurrent, moderate; F17.210 Nicotine dependence, cigarettes, uncomplicated; Z71.6 Tobacco abuse counseling; Z79.899 Other long term (current) drug therapy
CPT/HCPCS: 99283

== ENCOUNTER 2022-04-07 21:42 | Emergency (ER) | payer OTHER, SELFPAY ==
[2022-04-07 21:45] VITALS: BP 138/85; PULSE 98; O2SAT 98
[2022-04-07 22:07] VITALS: BP 102/56; PULSE 84; RESP 18; TEMP 36.5; O2SAT 93; BMI 21.4
[2022-04-07] MEDS: Albuterol Sulfate 90 MCG 8 GM INHALER 4 PUFF INHALE (22:24)
--- NOTE | 2022-04-07 22:28 | PC.NURSE ---
pt reporting some chest tightness, hx asthma and COPD, usually uses a rescue inhaler, provider notified, medicated per provider order. pt a&ox3, vss, CIWA of 0, pt looking for detox placement. reporting COPD and neuropathy in upper and lower extremities. pt pending ED provider.
--- NOTE | 2022-04-07 23:02 | PC.NURSE ---
pt resting in bed, requesting facemask for hallway lights, pt given facemask and ear plugs. pending ED provider.
[2022-04-07 23:46] LABS: MANUAL DIFF FLAG NO
[2022-04-07 23:49] LABS: Basophils Absolute Auto 0.1 X10*3/uL (0.0-0.2); Basophils Percent Auto 1.6 % (0-2); Eosinophils Absolute Auto 0.1 X10*3/uL (0.0-0.4); Eosinophils Percent Auto 1.8 % (0-4); Hematocrit 35.3 % (42.0-52.0); Hemoglobin 11.6 g/dl (14.0-18.0); Imm Gran Abs Auto 0.02 X10*3/uL (0.00-0.03); Imm Gran Pct Auto 0.4 % (0.0-0.4); Lymphocytes Absolute Auto 1.8 X10*3/uL (1.2-4.9); Mean Corpuscular HGB Conc 32.9 g/dl (31.0-36.0); Mean Corpuscular Hemoglobin 28.6 pg (27.0-33.0); Mean Corpuscular Volume 87.2 fL (80.0-98.0); Mean Platelet Volume 9.3 fL (9.4-12.4); Monocytes Absolute Auto 0.6 X10*3/uL (0.1-1.2); Monocytes Percent Auto 13.6 % (2-11); Neutrophils Absolute Auto 1.9 x10*3/uL (2.0-8.3); Neutrophils Percent Auto 42.6 % (45-73); Platelet Count 193 X10*3/uL (160-400); Red Blood Count 4.05 X10*6/uL (4.60-5.80); Red Cell Distribution Width 17.5 % (11.0-16.0); White Blood Count 4.5 X10*3/uL (4.8-10.8)
[2022-04-08 00:08] LABS: COVID-19 Test Negative (Negative); IDNOW Serial# 6674DD1D
[2022-04-08 00:10] LABS: Alanine Aminotransferase 46 U/L (0-40); Albumin Level 4.2 g/dL (3.5-5.0); Alkaline Phosphatase 91 U/L (39-117); Anion Gap 16 (12-20); Aspartate Amino Transferase 61 U/L (5-37); Bilirubin Total 0.7 mg/dL (0.0-1.0); Blood Urea Nitrogen 11 mg/dL (9-16); Calcium 8.9 mg/dL (8.4-10.2); Carbon Dioxide 22 mmol/L (22-29); Chloride 107 mmol/L (96-108); Estimated Glomerular Filt Rate > 60; Ethanol 228 mg/dL; Glucose Random 83 mg/dL (60-115); Lipase 36 U/L (8-78); Potassium 4.4 mmol/L (3.3-5.1); Sodium 141 mmol/L (135-145); Total Protein 7.3 g/dL (6.5-8.0)
--- NOTE | 2022-04-08 01:18 | ED.ALCOHOL ---
HPI - Alcohol General Chief Complaint: ETOH/Substance Use Stated Complaint: ETOH Time Seen by Provider: 04/07/22 22:20 Source: patient Mode of arrival: EMS Limitations: no limitations History of Present Illness HPI narrative: 61-year-old male who presents emergency department for evaluation of alcohol use disorder and requesting alcohol detox. Patient states that he drinks 2 pt of [employer] per day. His last drink was yesterday morning. He states that he wants to stop drinking and wants to be evaluated for a detox program. He states that he was recently in a detox program several weeks prior. He denied fever, chills, chest pain, shortness of breath. He states he has had nausea but no vomiting. He denied diarrhea. Denied myalgias or arthralgias. In reviewing his ED record, the patient was recently seen on 04/01/2022 (7 days prior to evaluation) for similar complaint requesting alcohol detox. The patient was in the emergency department 12 times in March for his alcohol use disorder and requesting detox. The care team has been trying to pursue a Section 35 on this patient in order to get him into more long-term alcohol treatment program. Related Data Home Medications Medication Instructions Recorded Confirmed docusate sodium 100 mg tablet (DOK) 100 mg PO BID 02/06/22 03/05/22 ipratropium 20 mcg-albuterol 100 1 puff inhalation QID 02/06/22 03/05/22 mcg/actuation mist for inhalation (Combivent Respimat) Previous Rx's Medication Instructions Recorded albuterol sulfate 90 mcg/actuation 2 puff inhalation Q4-6H PRN 12/04/21 aerosol inhaler (ProAir HFA) Wheezing #8.5 grams apixaban 5 mg tablet (Eliquis) 5 mg PO BID 10 days #20 tabs 02/17/22 albuterol sulfate 90 mcg/actuation 2 puff inhalation Q4-6H PRN 03/15/22 aerosol inhaler shortness of breath or wheezing #8.5 grams apixaban 5 mg tablet (Eliquis) 5 mg PO BID #30 tabs 03/15/22 Allergies Allergy/AdvReac Type Severity Reaction Status Date / Time Peanut Butter Allergy Facial Verified 04/07/22 22:07 Swelling raspberry Allergy Facial Verified 04/07/22 22:07 Swelling Review of Systems Review of Systems: Yes all other systems are reviewed and are negative [facility] Past Medical History [facility] Narrative: Social history: Patient does smoke cigarettes. He drinks alcohol daily, denies drug use. Medical History Alcohol abuse Alcohol use disorder, severe, dependence Asthma COPD (chronic obstructive pulmonary disease) DVT (deep venous thrombosis) Neuropathy Subdural hematoma Tobacco abuse Social History Social History Household Members: None Housing: House Do you presently have visiting nurse or other home services: No Alcohol intake: current Alcohol intake frequency: 0-2 drinks per day Alcohol type: hard liquor Patient Tobacco Use Status: Current everyday Tobacco user Tobacco use type: Cigarette Cigarette Packs Per Day: 1 Cigarettes Per Day: 1 e-Cigarette/Vaping Use: Never Used Second Hand Smoke Exposure: No Substance Use Type: Marijuana Advance Directives: Yes Advance Directives on File: Yes Advance Directives Date on File: 03/05/22 service: No Current occupational status: disabled Physical Exam ED Vital Signs: Vital Signs - 24 hr 04/07/22 22:07 Temperature 97.7 F Pulse Rate 84 Respiratory Rate 18 Blood Pressure 102/56 L Pulse Oximetry 93 Oxygen Delivery Method Room Air BMI result Body Mass Index 21.4 Vital signs normal Const General: cooperative and no acute distress Orientation/consciousness: oriented to person and oriented to place Limitations: no limitations HENMT Head: Yes normal to inspection, Yes normocephalic and Yes atraumatic Ears: external ears normal General nose exam: Normal external nose present Face and sinus: Yes normal facial exam Mouth: Normal oral and palatal mucosa present Throat: Yes posterior oropharynx normal Eyes General: appearance normal, both eyes and all related structures Pupils: Equal, round and reactive pupils present Neck Neck: Yes normal visual inspection, Yes no lymphadenopathy, Yes trachea midline and Yes supple Chest Chest palpation & inspection: normal inspection of the chest and normal palpation of entire chest wall Resp Effort & Inspection: normal respiratory effort and able to speak in complete sentences Auscultation: clear to auscultation bilaterally Cardio Rate: regular rate Rhythm: regular rhythm Heart sounds: S1 normal heart sound present, S2 normal heart sound present and no murmurs GI Inspection: Yes normal to inspection Palpation (GI): Soft to palpation, nontender and no guarding Auscultation: normal bowel sounds General: Yes no CVA tenderness Back/Spine/Pelvis Back: no CVA tenderness Skin General skin exam: no rashes or lesions noted Neuro General: oriented to person and oriented to place Cranial nerves: Yes CN's II-XII intact bilaterally and Yes Equal, round and reactive pupils present Cognition (Neuro): normal cognition Motor exam (neuro): 5/5 motor strength present throughout Extrem General: Yes normal to inspection Psych Appearance: grossly normal Speech and movement: Normal speech and movement present Affect: normal affect Attitude: cooperative Thought process: Normal thought process present Thought content: Normal thought content present Medical Decision Making Medical Decision Making MDM Narrative: 61-year-old male with a history of alcohol use disorder the who has been here in the emergency department frequently for alcohol related illness and requesting detox. The patient's last emergency department visit was on 04/01/2022. The patient's physical examination was unremarkable. I did order CBC, CMP, ETOH level, lipase COVID-19, urine drug screen. 0124: My independent interpretation of the patient's laboratory evaluation is as follows: WBC low 4500-similar values in the past. H&H low 11.6 and 35.3-this is chronic. Platelet count was normal 193,000. Comprehensive metabolic panel was normal except for an elevated AST and ALT of 61 and 46. Ethanol level was elevated at 228. COVID-19 was negative. Patient is medically cleared 0127: Start physician observation. The patient will be placed in physician observation until he can be evaluated in the morning by lacrosse coach/care team. I did order medical reconciliation on this patient. The patient's Mejia be turned over to my colleague, Dr. Kelsea Barrios. Lab Data 04/07/22 23:41 04/07/22 23:41 Labs: Lab Results 04/07/22 04/07/22 04/07/22 Range/Units 23:39 23:41 23:41 WBC 4.5 L (4.8-10.8) X10*3/uL RBC 4.05 L (4.60-5.80) X10*6/uL Hgb 11.6 L (14.0-18.0) g/dl Hct 35.3 L (42.0-52.0) % MCV 87.2 (80.0-98.0) fL MCH 28.6 (27.0-33.0) pg MCHC 32.9 (31.0-36.0) g/dl RDW 17.5 H (11.0-16.0) % Plt Count 193 (160-400) X10*3/uL MPV 9.3 L (9.4-12.4) fL Immature Gran % (Auto) 0.4 (0.0-0.4) % Neut % (Auto) 42.6 L (45-73) % Lymph % (Auto) 40.0 (20-40) % Towns % (Auto) 13.6 H (2-11) % Eos % (Auto) 1.8 (0-4) % Baso % (Auto) 1.6 (0-2) % Lymph # (Auto) 1.8 (1.2-4.9) X10*3/uL Towns # (Auto) 0.6 (0.1-1.2) X10*3/uL Eos # (Auto) 0.1 (0.0-0.4) X10*3/uL Baso # (Auto) 0.1 (0.0-0.2) X10*3/uL Abs Immat Gran (auto) 0.02 (0.00-0.03) X10*3/uL Absolute Neuts (auto) 1.9 L (2.0-8.3) x10*3/uL Absolute Nucleated RBC 0.000 (0.0-0.012) X10*3/uL Nucleated RBC % (auto) 0.0 (0.0-0.2) /100WBC Sodium 141 (135-145) mmol/L Potassium 4.4 (3.3-5.1) mmol/L Chloride 107 (96-108) mmol/L Carbon Dioxide 22 (22-29) mmol/L Anion Gap 16 (12-20) BUN 11 (9-16) mg/dL Creatinine 0.88 (0.5-1.4) mg/dL Estim Creat Clear Calc 82.0 Estimated GFR > 60 Random Glucose 83 (60-115) mg/dL Calcium 8.9 (8.4-10.2) mg/dL Total Bilirubin 0.7 (0.0-1.0) mg/dL AST 61 H (5-37) U/L ALT 46 H (0-40) U/L Alkaline Phosphatase 91 (39-117) U/L Total Protein 7.3 (6.5-8.0) g/dL Albumin 4.2 (3.5-5.0) g/dL Lipase 36 (8-78) U/L Ethyl Alcohol 228 mg/dL COVID-19 (NELY) Negative (Negative) COVID-19 Clin Com See Note Medications Administered Discontinued Medications Generic Name Dose Route Start Last Admin Trade Name Freq PRN Reason Stop Dose Admin Albuterol Sulfate 4 puff 04/07/22 22:20 04/07/22 22:24 Albuterol Sulfate 90 Mcg 8 Gm Inhaler INHALE 04/07/22 22:21 4 puff ONCE ONE Administration Discharge Plan Discharge Clinical Impression: Alcoholic intoxication, Alcohol use disorder Patient Disposition: Still a Patient Prescriptions: No Action albuterol sulfate [ProAir HFA] 90 mcg/actuation HFA aerosol inhaler 2 puff inhalation Q4-6H PRN (Reason: Wheezing) Qty: 8.5 0RF Eliquis 5 mg tablet 5 mg PO BID 10 Days Qty: 20 0RF Eliquis 5 mg tablet 5 mg PO BID Qty: 30 0RF albuterol sulfate 90 mcg/actuation HFA aerosol inhaler 2 puff inhalation Q4-6H PRN (Reason: shortness of breath or wheezing) Qty: 8.5 0RF docusate sodium [DOK] 100 mg tablet 100 mg PO BID Combivent Respimat 20-100 mcg/actuation mist 1 puff inhalation QID Interventions: Dagmar-Suicide Risk Severity Scale Last Done: 04/07/22 22:14
--- NOTE | 2022-04-08 04:08 | PC.NURSE ---
PT A&Ox3, calm and cooperative, denies SI/HI, denies auditory/visual hallucinations. Reports feet and hand pain its my neuropathy, but all I want to do is go to a rehab . CIWA scale 0.
[2022-04-08 04:29] VITALS: BP 99/56; PULSE 84; RESP 16; TEMP 36.8; O2SAT 96
== END 2022-04-08 07:24 | disposition home or self-care (01) ==
PROVIDERS: Emergency Provider Emergency Medicine Emergency Medical Services; PCP Internal Medicine
DX: F10.129 Alcohol abuse with intoxication, unspecified (principal); Y90.7 Blood alcohol level of 200-239 mg/100 ml; F17.210 Nicotine dependence, cigarettes, uncomplicated; Z71.6 Tobacco abuse counseling; Z20.822 Contact with and (suspected) exposure to COVID-19; Z20.828 Contact with and (suspected) exposure to other viral communicable diseases; Z71.41 Alcohol abuse counseling and surveillance of alcoholic; Z79.899 Other long term (current) drug therapy
CPT/HCPCS: 80053; 82077; 83690; 85025; 87635; 99284

== ENCOUNTER 2022-05-12 23:05 | Emergency (ER) | payer OTHER, SELFPAY ==
--- NOTE | 2022-05-12 23:22 | ED.ALCOHOL ---
HPI - Alcohol General Chief Complaint: ETOH/Substance Use Stated Complaint: ETOH Time Seen by Provider: 05/12/22 23:14 Source: patient Mode of arrival: EMS Limitations: no limitations History of Present Illness HPI narrative: Patient alcoholic for more than 30 years with history of PTSD depression after of his friend and his son drinks heavy been here multiple times lasting was today at 19:00 seeking detox but after coming to the ER patient does not want to go to detox asking to go home ambulatory in the ER but does not have the ride to take home patient lives alone denies any SI no hallucination/ delusion Related Data Home Medications Medication Instructions Recorded Confirmed docusate sodium 100 mg tablet (DOK) 100 mg PO BID 02/06/22 03/05/22 ipratropium 20 mcg-albuterol 100 1 puff inhalation QID 02/06/22 03/05/22 mcg/actuation mist for inhalation (Combivent Respimat) Previous Rx's Medication Instructions Recorded albuterol sulfate 90 mcg/actuation 2 puff inhalation Q4-6H PRN 12/04/21 aerosol inhaler (ProAir HFA) Wheezing #8.5 grams albuterol sulfate 90 mcg/actuation 2 puff inhalation Q4-6H PRN 03/15/22 aerosol inhaler shortness of breath or wheezing #8.5 grams apixaban 5 mg tablet (Eliquis) 5 mg PO BID #30 tabs 03/15/22 Allergies Allergy/AdvReac Type Severity Reaction Status Date / Time Peanut Butter Allergy Facial Verified 04/07/22 22:07 Swelling raspberry Allergy Facial Verified 04/07/22 22:07 Swelling Review of Systems Review of Systems: Constitutional : No Weight loss, No Fever, No Chills ENT/Mouth : No sore throat, No Rhinorrhea Eyes: No Eye Pain, No Swelling Cardiovascular : No Chest Pain, no palpitations Respiratory : No Cough, No Sputum, no shortness of breath Gastrointestinal : no Nausea, No Vomiting, No Diarrhea, No abdominal Pain, no black stools Genitourinary : No Dysuria, No Urinary Frequency Musculoskeletal : No joint pain, No Myalgias, No Joint Swelling Skin : No Skin Lesions, No rash Neuro : No Weakness, No Numbness, No Dizziness, No Headache Psych : No Anxiety/Panic, + Depression Heme/Lymph: No Bruising, No Lymphadenopathy Endocrine : No Polyuria, No Polydipsia All other systems reviewed and are negative Yes all other systems are reviewed and are negative [facility] Past Medical History Medical History Alcohol abuse Alcohol use disorder, severe, dependence Asthma COPD (chronic obstructive pulmonary disease) DVT (deep venous thrombosis) Neuropathy Subdural hematoma Tobacco abuse Social History Social History Household Members: None Housing: House Do you presently have visiting nurse or other home services: No Alcohol intake: current Alcohol intake frequency: 3 or more drinks per day Alcohol type: hard liquor Patient Tobacco Use Status: Current everyday Tobacco user Tobacco use type: Cigarette Cigarette Packs Per Day: 1 Cigarettes Per Day: 1 e-Cigarette/Vaping Use: Never Used Second Hand Smoke Exposure: No Substance Use Type: Marijuana Advance Directives Date on File: 03/05/22 service: No Current occupational status: disabled Physical Exam ED Vital Signs: Vital Signs - 24 hr 05/12/22 23:43 Temperature 97.9 F Pulse Rate 104 H Respiratory Rate 20 Blood Pressure 110/58 L Pulse Oximetry 94 Oxygen Delivery Method Room Air BMI result Body Mass Index 20.0 Appearance: Alert. Oriented X3. No acute distress. etoh++ Eyes: PERRLA, No Nystagmus ENT: Pharynx normal. Oral Mucosa moist Neck: Normal inspection. Neck supple. CVS: Normal heart rate and rhythm. Pulses normal. Respiratory: No respiratory distress. Equal air entry bilateral, no wheezing/rales/rhonchi Abdomen: Soft and nontender. Bowel sounds are present, no mass palpable, no CVA tenderness Skin: Skin warm and dry. Normal skin color. Normal skin turgor. Extremities: No lower extremity edema. No calf tenderness Neuro: Oriented X 3. No motor deficit. No sensory deficit.No cerebellar signs , cranial nerves II-XII intact Medical Decision Making Medical Decision Making [facility] Narrative: Patient alcoholic with depression/PTSD refusing to go to detox vitals stable will DC home when he gets sober Lab Data [facility] Lab Attestation statement: I reviewed the patient's lab results. Discharge Plan Discharge Clinical Impression: Alcohol abuse Patient Disposition: Home, Self-Care Instructions: Abuse of Alcohol (ED) Additional Instructions: Follow up with detox Prescriptions: No Action albuterol sulfate [ProAir HFA] 90 mcg/actuation HFA aerosol inhaler 2 puff inhalation Q4-6H PRN (Reason: Wheezing) Qty: 8.5 0RF Eliquis 5 mg tablet 5 mg PO BID Qty: 30 0RF albuterol sulfate 90 mcg/actuation HFA aerosol inhaler 2 puff inhalation Q4-6H PRN (Reason: shortness of breath or wheezing) Qty: 8.5 0RF docusate sodium [DOK] 100 mg tablet 100 mg PO BID Combivent Respimat 20-100 mcg/actuation mist 1 puff inhalation QID
[2022-05-12 23:43] VITALS: BP 110/58; BP 149/75; PULSE 104; PULSE 97; RESP 20; TEMP 36.6; O2SAT 94; O2SAT 97
[2022-05-13 01:58] VITALS: BP 95/61; PULSE 92; RESP 14; TEMP 36.8; O2SAT 96
--- NOTE | 2022-05-13 02:34 | PC.NURSE ---
I spoke with this patient about what he plans to do. He denies SI. He denies HI. He has been told that he can be discharged because he has expressed the desire to leavce. He has been ambulating throughout the department independently and with steady gait. Edgardo attempted to obtain transportation home but was unable to. He asked, politely, if he could remain in the ED until 0600 at which time he would go to the waiting room and begin trying to obtain transport home. I agreed to this, provided him with hospital clothes, warm blankets, and a room where he could sleep./ He was grateful. ZThere are no s/s of alcohol withdrawal. No [id number]. No diaphoresis. No hallucinations. Pt is cooperative, but short tempered and very grumpy, admittedly.
[2022-05-13 06:10] VITALS: BP 109/74; PULSE 98; RESP 16; TEMP 37; O2SAT 98
== END 2022-05-13 07:02 | disposition home or self-care (01) ==
PROVIDERS: Emergency Provider Internal Medicine; PCP Internal Medicine
DX: F10.10 Alcohol abuse, uncomplicated (principal); F33.1 Major depressive disorder, recurrent, moderate; Y90.9 Presence of alcohol in blood, level not specified; F17.210 Nicotine dependence, cigarettes, uncomplicated; Z71.6 Tobacco abuse counseling; Z79.01 Long term (current) use of anticoagulants
CPT/HCPCS: 99283; 99284

== ENCOUNTER 2022-05-18 01:17 | Inpatient (IN) | payer OTHER, SELFPAY ==
[2022-05-18] VITALS (10 sets, daily range): BP systolic 90–151; BP diastolic 53–77; PULSE 73–92; RESP 16–18; TEMP 35.7–37.2; O2SAT 92–98; BMI 22.1
--- NOTE | ~2022-05-18 | CT_ITS ---
EXAMINATION: CT ANGIOGRAM OF THE CHEST WITH AND WITHOUT CONTRAST (CT PULMONARY ANGIOGRAM FOR PE) CLINICAL INFORMATION: Hypoxia. History of deep venous thrombosis. On Eliquis. COMPARISON: Multiple priors with the last chest x-ray of 05/18/[address] of 10/06/2021. TECHNIQUE: Prior to contrast administration, noncontrast localization images were obtained. Subsequently, multidetector volumetric imaging was performed from the thoracic inlet to below the diaphragms following the administration of 70 mL Omnipaque 350 intravenous contrast. No contrast reaction reported Sagittal, coronal, and MIP oblique sagittal reformatted images were obtained on the CT workstation, uploaded to PACS, and reviewed. This CT examination was performed using dose optimization techniques as appropriate, variously including the following: *Automated exposure control *Adjustment of mA and/or kV according to patient size (this includes techniques or standardized protocols for targeted exams where dose is matched to indication/reason for exam; i.e. extremities or head) *Use of iterative reconstruction technique Total exam dose-length product: 309.00 mGy-cm FINDINGS: QUALITY OF STUDY/CONTRAST BOLUS: Satisfactory. PULMONARY ARTERIES: Multiple linear hypodense filling defects/webs within the bilateral upper and lower lobes segmental branches are again noted along with partially calcified linear filling defect in the left main pulmonary artery. The findings are similar to that seen on the previous CT scan of 10/06/2021. No evidence of acute pulmonary emboli. Central pulmonary arteries are normal in caliber. THORACIC AORTA: No aneurysm or dissection. LUNG: Respiratory motion artifact somewhat limit evaluation. Changes of centrilobular emphysema are noted, predominantly in the upper lobes. Multiple bilateral scattered calcified granulomas are again noted with a few scattered subpleural micronodules. These do not appear to be significantly changed. Diffuse bronchial thickening is redemonstrated with a few groundglass opacities in the lingula and right middle lobe as well as tree-in-bud opacities in the lingula and left lower lobe. There are new small irregular scattered airspace opacities predominantly in the left lower lobe. PLEURA: No pleural effusion or pneumothorax. MEDIASTINUM: Normal heart size. No pericardial effusion. No hilar or mediastinal lymphadenopathy. No evidence of septal bowing or right heart strain. CORONARY ARTERY CALCIFICATION: None visualized on this study. CHEST WALL/AXILLA: Bilateral symmetrical moderate to large gynecomastia is redemonstrated. No evidence of axillary adenopathy. OSSEOUS STRUCTURES: No acute or suspicious osseous abnormality. Mild compression deformities of several thoracic vertebral bodies is a stable finding compared to previous CT of 10/06/2021. UPPER ABDOMEN: Cholelithiasis without CT evidence of acute cholecystitis. Note is again made of severely atrophic, partially visualized right kidney. No focal adrenal nodule. There is diffuse low-attenuation of the liver parenchyma consistent with underlying steatosis. Recommend correlation with lab values. No reflux of contrast into the hepatic veins to suggest elevated right heart pressures. CT/CT angio chest PE protocol IMPRESSION: 1. No evidence of acute pulmonary embolism. Multiple bands/webs in the segmental branches of the bilateral pulmonary arteries as well as calcified band in the left main pulmonary artery are stable findings compared to last study of 10/06/2021 suggesting sequela of prior/chronic recanalized pulmonary emboli. 2. Mild changes of centrilobular emphysema. 3. Bronchial thickening with groundglass opacities in the right middle lobe and lingula. New tree-in-bud opacities in the lingula. Multiple new small airspace opacities, predominantly in the left lower lobe. The findings are suggestive of small airway infection with bronchopneumonia, predominantly in the left lower lobe. Consider short-term interval follow-up chest CT in 3 months as these airspace opacities are not appreciated on chest x-rays of 05/18/2022. 4. Within the limits of study, no significant pulmonary nodules are noted. Multiple calcified granulomas suggest prior granulomatous disease exposure. 5. Cholelithiasis. VTE: negative.
--- NOTE | ~2022-05-18 | XR_ITS ---
EXAMINATION: XR CHEST CLINICAL INFORMATION: Cough COMPARISON: 03/19/2022 TECHNIQUE: Frontal view of the chest was obtained. FINDINGS: The lungs are well expanded. Chronic elevation of the right hemidiaphragm. There is no focal consolidation, edema, or effusion. No pneumothorax. The cardiomediastinal silhouette is within normal limits. No acute osseous abnormality. XR/XR chest 1V IMPRESSION: No acute pulmonary disease.
--- NOTE | 2022-05-18 01:37 | ED_ITS ---
HPI - Alcohol General Chief Complaint: ETOH/Substance Use Stated Complaint: ETOH,Seeking Detox Time Seen by Provider: 05/18/22 01:25 Source: patient Mode of arrival: ambulatory Limitations: no limitations History of Present Illness HPI narrative: Patient colic for more than 45 years chronic smoker drinks about 2 pt of hard liquor every day been to rehab multiple times been to ER multiple times comes here with similar situation asking for help to go to detox. Patient drinks as he feels lonely and alcoholic. Denies significant depression no other substance abuse Related Data Home Medications Medication Instructions Recorded Confirmed docusate sodium 100 mg tablet (DOK) 100 mg PO BID 02/06/22 03/05/22 ipratropium 20 mcg-albuterol 100 1 puff inhalation QID 02/06/22 03/05/22 mcg/actuation mist for inhalation (Combivent Respimat) Previous Rx's Medication Instructions Recorded albuterol sulfate 90 mcg/actuation 2 puff inhalation Q4-6H PRN 12/04/21 aerosol inhaler (ProAir HFA) Wheezing #8.5 grams albuterol sulfate 90 mcg/actuation 2 puff inhalation Q4-6H PRN 03/15/22 aerosol inhaler shortness of breath or wheezing #8.5 grams apixaban 5 mg tablet (Eliquis) 5 mg PO BID #30 tabs 03/15/22 Allergies Allergy/AdvReac Type Severity Reaction Status Date / Time Peanut Butter Allergy Facial Verified 05/18/22 01:24 Swelling raspberry Allergy Facial Verified 05/18/22 01:24 Swelling Review of Systems Review of Systems: Yes all other systems are reviewed and are negative PMFSH Past Medical History Medical History Alcohol abuse Alcohol use disorder, severe, dependence Asthma COPD (chronic obstructive pulmonary disease) DVT (deep venous thrombosis) Neuropathy Subdural hematoma Tobacco abuse Social History Social History Household Members: None Housing: House Do you presently have visiting nurse or other home services: No Alcohol intake: current Alcohol intake frequency: 3 or more drinks per day Alcohol type: hard liquor Patient Tobacco Use Status: Current everyday Tobacco user Tobacco use type: Cigarette Cigarette Packs Per Day: 1 Cigarettes Per Day: 1 Smoked in Last 30 Days: Yes e-Cigarette/Vaping Use: Never Used Second Hand Smoke Exposure: No Use of substances other than those prescribed or required for medical reasons: Yes Substance Use Type: Marijuana Substance Use Frequency: Occasionally Last Used Substance: Unknown Any prior treatment program specific to substance use: No Advance Directives: Yes Advance Directives Information Provided: Yes Advance Directives on File: Yes Advance Directives Date on File: 03/05/22 service: No Current occupational status: disabled Physical Exam ED Vital Signs: Vital Signs - 24 hr 05/18/22 01:28 05/18/22 02:07 05/18/22 04:00 Temperature 96.2 F L 98.1 F Pulse Rate 78 78 92 Respiratory Rate 18 16 16 Blood Pressure 90/57 L 107/61 Pulse Oximetry 96 95 Oxygen Delivery Method Room Air Nasal Cannula Oxygen Flow Rate 4 BMI result Body Mass Index 22.1 Appearance: Alert. Oriented X3. No acute distress. etoh+ Eyes: PERRLA, No Nystagmus ENT: Pharynx normal. Oral Mucosa moist Neck: Normal inspection. Neck supple. CVS: Normal heart rate and rhythm. Pulses normal. Respiratory: No respiratory distress. Equal air entry bilateral, prolonged ex piration with wheezing Abdomen: Soft and nontender. Bowel sounds are present, no mass palpable, no CVA tenderness Skin: Skin warm and dry. Normal skin color. Normal skin turgor. Extremities: No lower extremity edema. No calf tenderness Neuro: Oriented X 3. No motor deficit. No sensory deficit.No cerebellar signs , cranial nerves II-XII intact Medical Decision Making Medical Decision Making MDM Narrative: Patient with chronic alcohol abuse mean to detox multiple times requesting 1 more time to go to detox as he wants to stop drinking will get care team involved labs are stable continue to monitor for withdrawal CIWA scale every 4 hour Lab Data [facility] Lab Attestation statement: I reviewed the patient's lab results. 05/18/22 01:51 05/18/22 01:51 Labs: Lab Results 05/18/22 05/18/22 05/18/22 Range/Units 01:47 01:51 01:51 WBC 4.2 L (4.8-10.8) X10*3/uL RBC 4.12 L (4.60-5.80) X10*6/uL Hgb 11.6 L (14.0-18.0) g/dl Hct 35.8 L (42.0-52.0) % MCV 86.9 (80.0-98.0) fL MCH 28.2 (27.0-33.0) pg MCHC 32.4 (31.0-36.0) g/dl RDW 16.5 H (11.0-16.0) % Plt Count 125 L D (160-400) X10*3/uL MPV 9.4 (9.4-12.4) fL Immature Gran % (Auto) 0.5 H (0.0-0.4) % Neut % (Auto) 36.6 L (45-73) % Lymph % (Auto) 42.7 H (20-40) % [place] % (Auto) 15.9 H (2-11) % Eos % (Auto) 3.1 (0-4) % Baso % (Auto) 1.2 (0-2) % Lymph # (Auto) 1.8 (1.2-4.9) X10*3/uL [place] # (Auto) 0.7 (0.1-1.2) X10*3/uL Eos # (Auto) 0.1 (0.0-0.4) X10*3/uL Baso # (Auto) 0.1 (0.0-0.2) X10*3/uL Abs Immat Gran (auto) 0.02 (0.00-0.03) X10*3/uL Absolute Neuts (auto) 1.6 L (2.0-8.3) x10*3/uL Absolute Nucleated RBC 0.000 (0.0-0.012) X10*3/uL Nucleated RBC % (auto) 0.0 (0.0-0.2) /100WBC Sodium 145 (135-145) mmol/L Potassium 3.5 D (3.3-5.1) mmol/L Chloride 104 (96-108) mmol/L Carbon Dioxide 28 (22-29) mmol/L Anion Gap 17 (12-20) BUN 12 (9-16) mg/dL Creatinine 0.86 (0.5-1.4) mg/dL Estim Creat Clear Calc 86.8 Estimated GFR > 60 Random Glucose 95 (60-115) mg/dL Calcium 8.6 (8.4-10.2) mg/dL Magnesium 1.7 (1.6-2.6) mg/dL Total Bilirubin 0.5 (0.0-1.0) mg/dL AST 65 H (5-37) U/L ALT 51 H (0-40) U/L Alkaline Phosphatase 125 H (39-117) U/L Total Protein 6.9 (6.5-8.0) g/dL Albumin 3.9 (3.5-5.0) g/dL Ethyl Alcohol 350 H* mg/dL COVID-19 (NELY) Negative (Negative) COVID-19 Clin Com See Note Medications Administered Discontinued Medications Generic Name Dose Route Start Last Admin Trade Name Freq PRN Reason Stop Dose Admin Albuterol Sulfate 5 mg/ 0 mg 05/18/22 01:46 05/18/22 02:03 Ipratropium [place] 0.5 mg INHALE 05/18/22 01:47 1 each ONCE ONE Administration Discharge Plan Discharge Clinical Impression: Alcoholic intoxication Patient Disposition: Still a Patient Prescriptions: No Action albuterol sulfate [ProAir HFA] 90 mcg/actuation HFA aerosol inhaler 2 puff inhalation Q4-6H PRN (Reason: Wheezing) Qty: 8.5 0RF Eliquis 5 mg tablet 5 mg PO BID Qty: 30 0RF albuterol sulfate 90 mcg/actuation HFA aerosol inhaler 2 puff inhalation Q4-6H PRN (Reason: shortness of breath or wheezing) Qty: 8.5 0RF docusate sodium [DOK] 100 mg tablet 100 mg PO BID Combivent Respimat 20-100 mcg/actuation mist 1 puff inhalation QID Interventions: Worth-Suicide Risk Severity Scale Last Done: 05/18/22 01:40
[2022-05-18 01:56] LABS: MANUAL DIFF FLAG NO
[2022-05-18 01:58] LABS: Basophils Absolute Auto 0.1 X10*3/uL (0.0-0.2); Basophils Percent Auto 1.2 % (0-2); Eosinophils Absolute Auto 0.1 X10*3/uL (0.0-0.4); Eosinophils Percent Auto 3.1 % (0-4); Hematocrit 35.8 % (42.0-52.0); Hemoglobin 11.6 g/dl (14.0-18.0); Imm Gran Abs Auto 0.02 X10*3/uL (0.00-0.03); Imm Gran Pct Auto 0.5 % (0.0-0.4); Lymphocytes Absolute Auto 1.8 X10*3/uL (1.2-4.9); Lymphocytes Percent Auto 42.7 % (20-40); Mean Corpuscular HGB Conc 32.4 g/dl (31.0-36.0); Mean Corpuscular Hemoglobin 28.2 pg (27.0-33.0); Mean Corpuscular Volume 86.9 fL (80.0-98.0); Mean Platelet Volume 9.4 fL (9.4-12.4); Monocytes Absolute Auto 0.7 X10*3/uL (0.1-1.2); Monocytes Percent Auto 15.9 % (2-11); Neutrophils Absolute Auto 1.6 x10*3/uL (2.0-8.3); Neutrophils Percent Auto 36.6 % (45-73); Platelet Count 125 X10*3/uL (160-400); Red Blood Count 4.12 X10*6/uL (4.60-5.80); Red Cell Distribution Width 16.5 % (11.0-16.0); White Blood Count 4.2 X10*3/uL (4.8-10.8)
[2022-05-18 02:12] LABS: COVID-19 Test Negative (Negative); IDNOW Serial# BCCEAD1C
[2022-05-18 02:28] LABS: Alanine Aminotransferase 51 U/L (0-40); Albumin Level 3.9 g/dL (3.5-5.0); Alkaline Phosphatase 125 U/L (39-117); Anion Gap 17 (12-20); Aspartate Amino Transferase 65 U/L (5-37); Bilirubin Total 0.5 mg/dL (0.0-1.0); Blood Urea Nitrogen 12 mg/dL (9-16); Calcium 8.6 mg/dL (8.4-10.2); Carbon Dioxide 28 mmol/L (22-29); Chloride 104 mmol/L (96-108); Creatinine Clr Calc Pharmacy 86.8; Estimated Glomerular Filt Rate > 60; Ethanol 350 mg/dL; Glucose Random 95 mg/dL (60-115); Magnesium 1.7 mg/dL (1.6-2.6); Potassium 3.5 mmol/L (3.3-5.1); Sodium 145 mmol/L (135-145); Total Protein 6.9 g/dL (6.5-8.0)
--- NOTE | 2022-05-18 06:58 | ECG_ITS ---
Test Reason : chest pain Blood Pressure : / mmHG Vent. Rate : 078 BPM Atrial Rate : 078 BPM P-R Int : 140 ms QRS Dur : 134 ms QT Int : 422 ms P-R-T Axes : 040 -51 033 degrees QTc Int : 481 ms Normal sinus rhythm Right bundle branch block Left anterior fascicular block Bifascicular block Abnormal ECG When compared with ECG of 15-MAR-2022 11:45, No significant change was found Referred By: Ismael Barrios Electronically Signed By:WAYNE AVILEZ MD
[2022-05-18 07:15] LABS: VBG Base Excess 2.4 mmol/L; VBG HCO3 28 mmol/L (22-26); VBG pCO2 47 mmHg; VBG pH 7.38 (7.32-7.43); VBG pO2 52 mmHg
[2022-05-18 07:16] LABS: Venous Blood Gas Refer to POC result
[2022-05-18] MEDS: iohexoL 350 MG/ML 100 ML INFUS..BTL 70 ML IV (07:39)
--- NOTE | 2022-05-18 07:50 | MHC.EDTECH ---
PER ADMINISTRATIVE RESIDENT LUCAS, THIS PTS BELONGINGS ARE IN LOCKER 10 IN THE POD
--- NOTE | 2022-05-18 08:17 | PHA.MEDREC ---
Pharmacy Consult ? Medication Reconciliation Pharmacy has completed the medication reconciliation. Patient says he doesn't take the gabapentin that's in his claim history but he says he takes his antidepressant sometimes but usually just drinks instead . Says he hasn't taken it in more than a few days, probably close to a week or more since he's taken it.
--- NOTE | 2022-05-18 10:27 | PM.IMHP ---
History of Present Illness Date of Service: 05/18/22 Chief Complaint: Nausea and vomitting and wants detox 61-year-old male with history of alcohol use disorder, tobacco use disorder, DVT on Eliquis presents to the emergency department wanting detoxl. He states that for he hasn't been able to eat for 3 days and for the first 2 days was having nausea and vomitting and feel weak, he drinks whiskey every day in large quantity and has now decided he's had enough and wants detox and need he wants help.? He has had some sweating, tremors and nausea and vomitting. He has no chest discomfort, palpitations, shortness of breath.?He has been given ativan here Review of Systems Review of Systems: Gen: no fever Resp: no sob, no cough CV: no chest, no PANDEY, no leg edema GI: No n/v, no abd pain Neuro: No confusion, some tremors PMFSH Medical History Alcohol abuse Alcohol use disorder, severe, dependence Asthma COPD (chronic obstructive pulmonary disease) DVT (deep venous thrombosis) Neuropathy Subdural hematoma Tobacco abuse Social History Household Members: None Housing: House Do you presently have visiting nurse or other home services: No Alcohol intake: current Alcohol intake frequency: 3 or more drinks per day Alcohol type: hard liquor Patient Tobacco Use Status: Current everyday Tobacco user Tobacco use type: Cigarette Cigarette Packs Per Day: 1 Cigarettes Per Day: 20.0 Smoked in Last 30 Days: Yes e-Cigarette/Vaping Use: Never Used Patient Interested in Nicotine Replacement: No Patient Given Instructions on How to Stop Smoking: Yes Date Education Initiated: 05/18/22 Second Hand Smoke Exposure: No Use of substances other than those prescribed or required for medical reasons: Yes Substance Use Type: Marijuana Substance Use Frequency: Occasionally Last Used Substance: Unknown Currently Displaying Signs/Symptoms of Drug Intoxication Withdrawal: No Any prior treatment program specific to substance use: No Have you been hit, kicked, punched, or otherwise hurt by someone within the past year? If so, by whom?: No Do you feel safe in your current relationship?: No Current Relationship Is there a partner from a previous relationship who is making you feel unsafe now?: No Are you made to feel afraid or neglected: No Advance Directives: Yes Advance Directives Information Provided: Yes Advance Directives on File: Yes Advance Directives Date on File: 03/05/22 Do you have thoughts of harming others: None Do you have a plan to hurt others: No Plan Recently lost weight without trying: Unsure Nutrition Risks: No Nutritional Risk service: No Current occupational status: disabled Meds Allergies Allergy/AdvReac Type Severity Reaction Status Date / Time Peanut Butter Allergy Facial Verified 05/18/22 01:24 Swelling raspberry Allergy Facial Verified 05/18/22 01:24 Swelling Active Medications: Current Medications Albuterol Sulfate (Albuterol Sulfate 90 Mcg 8 Gm Inhaler) 2 puff INHALE RQ4H PRN PRN Reason: Wheezing Lorazepam (Lorazepam 1 Mg Tablet) 2 mg PO RQ4H WHILE AWAKE PRN PRN Reason: Alcohol Withdrawal Pharmacy Consult (Consult Rx Perform Med Rec) 1 each MISCELLANE ONCE PRN PRN Reason: Consult order Home Medications Medication Instructions Recorded Confirmed Last Taken Type docusate sodium 100 mg tablet (DOK) 100 mg PO BID PRN Constipation 02/06/22 05/18/22 02/05/22 History ipratropium 20 mcg-albuterol 100 1 puff inhalation QID 02/06/22 05/18/22 Unknown History mcg/actuation mist for inhalation (Combivent Respimat) sertraline 25 mg tablet 1 tab PO DAILY 05/18/22 05/18/22 Unknown History Physical Exam Vital Signs and Narrative: Vital Signs: Last Vital Signs Temp 98.1 F 05/18/22 04:00 Pulse 81 05/18/22 07:07 Resp 18 05/18/22 07:07 BP 116/53 L 05/18/22 06:00 Pulse Ox 92 05/18/22 06:00 O2 Del Method 05/18/22 06:00 O2 Flow Rate 2 05/18/22 06:00 BMI result Body Mass Index 22.1 Const: Other: Constitutional: Alert, in no distress, deshelved cathectic Mental Status: Oriented to person, place and time. Eyes: Pupils are equal, round and reactive to light. Ear, Nose and Throat: Oropharynx clear, mucous membranes moist. Ears and nose without eformities. Trachea midline. Respiratory: Clear to auscultation. No wheezing, rales or rhonchi. Cardiovascular: S1 S2 regular. No murmurs, rubs or gallops. Gastrointestinal: Abdomen soft, non-tender, non-distended. Normal bowel sounds.? Neurologic: Cranial nerves II-XII grossly intact. No focal neurological deficits. Moves all extremities spontaneously.? fine tremors Skin: No rashes or lesions.? Musculoskeletal: No cyanosis or clubbing. Psychiatric: Normal mood and affect? Results Labs 05/18/22 01:51 05/18/22 01:51 Labs: Laboratory Results - last 24 hr 05/18/22 05/18/22 05/18/22 01:47 01:51 01:51 MCV 86.9 MCH 28.2 MCHC 32.4 RDW 16.5 H Plt Count 125 L D MPV 9.4 Immature Gran % (Auto) 0.5 H Neut % (Auto) 36.6 L Lymph % (Auto) 42.7 H [place] % (Auto) 15.9 H Eos % (Auto) 3.1 Baso % (Auto) 1.2 Lymph # (Auto) 1.8 [place] # (Auto) 0.7 Eos # (Auto) 0.1 Baso # (Auto) 0.1 Abs Immat Gran (auto) 0.02 Absolute Neuts (auto) 1.6 L Absolute Nucleated RBC 0.000 Nucleated RBC % (auto) 0.0 VBG pH VBG pCO2 VBG pO2 VBG HCO3 VBG O2 Saturation VBG Base Excess Anion Gap 17 Estim Creat Clear Calc 86.8 Estimated GFR > 60 Random Glucose 95 Calcium 8.6 Magnesium 1.7 Total Bilirubin 0.5 AST 65 H ALT 51 H Alkaline Phosphatase 125 H Total Protein 6.9 Albumin 3.9 Ethyl Alcohol 350 H* COVID-19 (NELY) Negative COVID-19 Clin Com See Note 05/18/22 07:08 MCV MCH MCHC RDW Plt Count MPV Immature Gran % (Auto) Neut % (Auto) Lymph % (Auto) [place] % (Auto) Eos % (Auto) Baso % (Auto) Lymph # (Auto) [place] # (Auto) Eos # (Auto) Baso # (Auto) Abs Immat Gran (auto) Absolute Neuts (auto) Absolute Nucleated RBC Nucleated RBC % (auto) VBG pH 7.38 VBG pCO2 47 VBG pO2 52 VBG HCO3 28 H VBG O2 Saturation 75.0 VBG Base Excess 2.4 Anion Gap Estim Creat Clear Calc Estimated GFR Random Glucose Calcium Magnesium Total Bilirubin AST ALT Alkaline Phosphatase Total Protein Albumin Ethyl Alcohol COVID-19 (NELY) COVID-19 Clin Com Imaging Radiologist's Impressions: Impressions Chest X-Ray 05/18/22 02:14 IMPRESSION: No acute pulmonary disease. Chest CTA 05/18/22 07:30 IMPRESSION: 1. No evidence of acute pulmonary embolism. Multiple bands/webs in the segmental branches of the bilateral pulmonary arteries as well as calcified band in the left main pulmonary artery are stable findings compared to last study of 10/06/2021 suggesting sequela of prior/chronic recanalized pulmonary emboli. 2. Mild changes of centrilobular emphysema. 3. Bronchial thickening with groundglass opacities in the right middle lobe and lingula. New tree-in-bud opacities in the lingula. Multiple new small airspace opacities, predominantly in the left lower lobe. The findings are suggestive of small airway infection with bronchopneumonia, predominantly in the left lower lobe. Consider short-term interval follow-up chest CT in 3 months as these airspace opacities are not appreciated on chest x-rays of 05/18/2022. 4. Within the limits of study, no significant pulmonary nodules are noted. Multiple calcified granulomas suggest prior granulomatous disease exposure. 5. Cholelithiasis. VTE: negative. Assessment and Plan (1) COPD (chronic obstructive pulmonary disease): Status: Acute (2) Alcohol withdrawal: Status: Acute Plan 61-year-old male with pertinent history of alcohol use disorder, tobacco use disorder, DVT on Eliquis being admitted for issues related to alcohol dependency and alcohol withdrawal # Alcohol use disorder/Alcohol withdrawal -Initiated phenobarb protocol for withdrawal. CARE team and addiction team consulted. ?- Start thiamine and folic acid.? #? History of DVT on Eliquis #? Tobacco use disorder:? Refused nicotine patch # COPD--no acute exacerbation--inhalers PRN DVT prophylaxis:? On Eliquis Full code regular diet Admission to [facility] 2 midnights for treatment ofalchol withdrwal Time Spent With Patient Time: Total time managing care of this patient today ____ minutes. Quality Stroke Does the patient have a stroke diagnosis?: No VTE Prior VTE?: Yes VTE Risk Level:: Medical - moderate - high VTE Device Contraindication: Treatment Not Indicated VTE Drug Contraindication: N/A - Med Ordered
[2022-05-18] MEDS: Apixaban 5 MG TABLET PO ×2 (10:52→21:10)
[2022-05-18] MEDS: Dextrose 5 % and 0.45 % NaCl 1,000 ML 100 ML IVCONT ×2 (10:52→21:09)
[2022-05-18] MEDS: Sertraline HCL 25 MG TABLET PO (10:52)
[2022-05-18] MEDS: Thiamine HCL 100 MG TABLET PO (10:53)
[2022-05-18] MEDS: PHENobarbitaL sodium 130 MG/ML IM ONCE 208 MG IM (11:27)
[2022-05-18] MEDS: Folic Acid 1 MG in 0.9 % Sodium Chloride 50 ML 100.4 MG IV (11:51)
[2022-05-18] MEDS: PHENobarbitaL sodium 130 MG/ML VIAL IM Q3Hx2 169 MG IM ×2 (14:33→17:05)
[2022-05-18] MEDS: Acetaminophen 325 MG TABLET 650 MG PO (17:15)
[2022-05-18] MEDS: PHENobarbitaL 15 MG TABLET 45 MG PO (21:10)
[2022-05-19 03:55] VITALS: BP 140/74; PULSE 75; RESP 17; TEMP 36.3; O2SAT 93
[2022-05-19] MEDS: Dextrose 5 % and 0.45 % NaCl 1,000 ML 100 ML IVCONT (06:37)
[2022-05-19 07:59] VITALS: BP 134/74; PULSE 67; RESP 18; TEMP 36.6; O2SAT 98
[2022-05-19 08:05] VITALS: PULSE 78; RESP 16; O2SAT 99
[2022-05-19] MEDS: Sertraline HCL 25 MG TABLET PO (08:39)
[2022-05-19] MEDS: Thiamine HCL 100 MG TABLET PO (08:39)
[2022-05-19] MEDS: PHENobarbitaL 15 MG TABLET 45 MG PO (08:39)
[2022-05-19] MEDS: Apixaban 5 MG TABLET PO (08:40)
--- NOTE | 2022-05-19 09:36 | MHC.CM.PN ---
IMM DELIVERED LIVES ALONE IN A [facility]. USES A CANE FOR MOBILITY. WILLING TO COMPLETE A HCP WHILE HERE. +COVID VAX X2 WITH [facility] PCP DR. PEREZ. DP: PT WOULD LIKE DETOX, THEN RETURN HOME. WILL NEED LYFT ON DC. CM WILL CONTINUE TO FOLLOW
[2022-05-19] MEDS: Folic Acid 1 MG in 0.9 % Sodium Chloride 50 ML 100.4 MG IV (10:55)
--- NOTE | 2022-05-19 11:10 | HO.PM.IMPN ---
Subjective Subjective Date of Service: 05/19/22 Interval History: f/u on alcoholism, withdrawal and seeking detox interval history: no withdrawal symptoms Physical Exam Vital Signs: Vital Signs: Last Vital Signs Temp 97.8 F 05/19/22 07:59 Pulse 78 05/19/22 08:05 Resp 16 05/19/22 08:05 BP 134/74 05/19/22 07:59 Pulse Ox 98 05/19/22 07:59 O2 Del Method 05/19/22 07:59 O2 Flow Rate 2 05/19/22 07:59 BMI result Body Mass Index 22.1 Const: Other: General: AO X 3, no acute distress Resp: CTA bilateral CVS: S1,S2,RRR GI: +BS, NT, no distention Skin: No rash Neuro: motor grossly intact Psych: appropriate affect Objective Data Active Medications Acetaminophen (Acetaminophen 325 Mg Tablet) 650 mg PO Q6H PRN PRN Reason: Pain, Mild (Pain Scale 1-3) Last Admin: 05/18/22 17:15 Dose: 650 mg Documented By: ED Albuterol Sulfate (Albuterol Sulfate 90 Mcg 8 Gm Inhaler) 2 puff INHALE RQ4H PRN PRN Reason: Wheezing Apixaban (Apixaban 5 Mg Tablet) 5 mg PO BID [facility] Last Admin: 05/19/22 08:40 Dose: 5 mg Documented By: JOSHUA Albuterol Sulfate 2.5 mg/ (Ipratropium [place] 0.5 mg) 0 mg INHALE RQID [facility] Last Admin: 05/19/22 08:03 Dose: 2.5 each Documented By: JOSUÉ Docusate Sodium (Docusate Sodium 100 Mg Capsule) 100 mg PO BID PRN PRN Reason: Constipation Folic Acid 1 mg/ Sodium (Chloride) 50.2 mls @ 100.4 mls/hr IV DAILY [facility] Last Admin: 05/19/22 10:55 Dose: 100.4 mls/hr Documented By: JOSHUA Lorazepam (Lorazepam 1 Mg Tablet) 2 mg PO RQ4H WHILE AWAKE PRN PRN Reason: Alcohol Withdrawal Magnesium Hydroxide (Milk Of Magnesia 30 Ml Oral.Susp) 30 ml PO DAILY PRN PRN Reason: Constipation Melatonin (Melatonin 3 Mg Tablet) 6 mg PO BEDTIME PRN PRN Reason: Insomnia Ondansetron HCl (Ondansetron Hcl 4 Mg/2 Ml Vial) 4 mg IVPUSH Q8H PRN PRN Reason: Nausea and Vomiting Pharmacy Consult (Consult Rx Perform Med Rec) 1 each MISCELLANE ONCE PRN PRN Reason: Consult order Pharmacy Consult (Consult Rx Etoh Phenob Im/Po) 1 each MISCELLANE ONCE PRN; Protocol PRN Reason: Consult order Phenobarbital (Phenobarbital 15 Mg Tablet) 45 mg PO BID [facility]; Protocol Stop: 05/20/22 09:01 Last Admin: 05/19/22 08:39 Dose: 45 mg Documented By: JOSHUA Phenobarbital (Phenobarbital 30 Mg Tablet) 30 mg PO BID [facility]; Protocol Stop: 05/22/22 09:01 Phenobarbital (Phenobarbital 30 Mg Tablet) 30 mg PO DAILY [facility]; Protocol Stop: 05/24/22 09:01 Sertraline HCl (Sertraline Hcl 25 Mg Tablet) 25 mg PO DAILY [facility] Last Admin: 05/19/22 08:39 Dose: 25 mg Documented By: JOSHUA Sodium Chloride (0.9 % Sodium Chloride Flush 3 Ml Syringe) [facility] Last Admin: 05/19/22 07:17 Dose: Not Given Documented By: VICENTE Non-Admin Reason: See Note Thiamine HCl (Thiamine Hcl 100 Mg Tablet) 100 mg PO DAILY [facility] Stop: 05/20/22 09:01 Last Admin: 05/19/22 08:39 Dose: 100 mg Documented By: JOSHUA Labs 05/18/22 01:51 05/18/22 01:51 Assessment and Plan (1) Alcohol withdrawal: Status: Acute Plan 61-year-old male with pertinent history of alcohol use disorder, tobacco use disorder, DVT on Eliquis being admitted for issues related to alcohol dependency and alcohol withdrawal # Alcohol use disorder/Alcohol withdrawal, no active withdrawal at this time -Initiated phenobarb protocol for withdrawal. CARE team and addiction team consulted. ?- continue thiamine and folic acid.? #? History of DVT on Eliquis #? Tobacco use disorder:? Refusing nicotine patch # COPD--no acute exacerbation--inhalers PRN DVT prophylaxis:? On Eliquis Full code regular diet Admission to [facility] 2 midnights for treatment ofalchol withdrwal recovery/addiction team to help with placement to detox Time Spent With Patient Time: Total time managing care of this patient today ____ minutes. Quality Stroke Does the patient have a stroke diagnosis?: No VTE Prior VTE?: Yes VTE Risk Level:: Medical - moderate - high VTE Device Contraindication: Treatment Not Indicated VTE Drug Contraindication: N/A - Med Ordered
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
[2022-05-19 11:55] VITALS: PULSE 78; RESP 16; O2SAT 92
--- NOTE | 2022-05-19 11:58 | PM.DS ---
DS: Providers Provider Date of Service: 05/19/22 Date of admission: 05/18/22 11:19 Primary care physician: Cristhian Delgado MD Consults: 05/18/22 06:00 Consult to Care Team Stat Comment: Reason for consultation: Alcohol intoxication 05/19/22 08:40 Consult to Care Team Routine Comment: Reason for consultation: Alcoholsim 05/19/22 11:09 Addiction Medicine Routine Consulting Provider: Addiction Covering Reason for consultation: alocholism and wants detox Has provider been notified: No DS: Diagnosis Discharge Diagnosis (1) Alcohol withdrawal: Status: Acute DS: Summary Hospital Course Hospital Course: Chief Complaint: Nausea and vomitting and wants detox 61-year-old male with history of alcohol use disorder, tobacco use disorder, DVT on Eliquis presents to the emergency department wanting detoxl. He states that for he hasn't been able to eat for 3 days and for the first 2 days was having nausea and vomitting and feel weak, he drinks whiskey every day in large quantity and has now decided he's had enough and wants detox and need he wants help.? He has had some sweating, tremors and nausea and vomitting.? He has no chest discomfort, palpitations, shortness of breath.?He has been given ativan here Hospital course: Patient presented seeking detox for alcohol dependency, he was in obvious withdrawal but was initiated on phenobarbital to prevent withdrawal. He was seen the next day by the Addiction team and this point he is not really interested in Detox and also doesn't qualify for one. He is however interested in restarting Campral so and arrangement is made for him to be seen in addiction clinic in very near future. We discussed the next for complete alcohol abstinence Final diagnosis: Acute on chronic aloholism At risk for withdrawal from alcohol h/o of DVT COPD without acute exacerbation Time Spent with Patient Time attestation: Total time managing care of this patient today ____ minutes. Discharge coordination time: Greater than 30 minutes Quality: Safe Use of Opioids Does Pt have an Active Cancer Diagnosis on the Problem List?: No Quality: Stroke Does the patient have a stroke diagnosis?: No Physical Exam Vital Signs: Vital Signs: Last Vital Signs Temp 97.8 F 05/19/22 07:59 Pulse 78 05/19/22 11:55 Resp 16 05/19/22 11:55 BP 134/74 05/19/22 07:59 Pulse Ox 98 05/19/22 07:59 O2 Del Method 05/19/22 07:59 O2 Flow Rate 2 05/19/22 07:59 BMI result Body Mass Index 22.1 Const: Other: General: AO X 3, no acute distress Resp: CTA bilateral CVS: S1,S2,RRR GI: +BS, NT, no distention Skin: No rash Neuro: motor grossly intact Psych: appropriate affect DS: Data Data Completed and Pending Completed studies during hospitalization [Text1]: Procedures Detoxification Services for Substance Abuse Treatment (03/06/22) Discharge Plan Discharge Anticipated Discharge Date/Time: 05/19/22 11:53 Patient Disposition: Home, Self-Care Discharge Diagnosis: Alcoholism Referrals: Cristhian Delgado MD [Primary Care Provider] - 1 Week Discharge Medications: Continued albuterol sulfate [ProAir HFA] 90 mcg/actuation HFA aerosol inhaler 2 puff inhalation Q4-6H PRN (Reason: Wheezing) Qty: 8.5 0RF Eliquis 5 mg tablet 5 mg PO BID Qty: 30 0RF docusate sodium [DOK] 100 mg tablet 100 mg PO BID PRN (Reason: Constipation) Combivent Respimat 20-100 mcg/actuation mist 1 puff inhalation QID sertraline 25 mg tablet 1 tab PO DAILY Discharge Orders: Discharge Order (Routine); Ordered 05/19/22 Ordered By: Caden Hutchinson Diet: Advance to usual diet Activity on Discharge: As tolerated Stand Alone Forms: Patient Portal Discharge page Care Plan Goals: Abstinence from alcohol Health Concerns: Alcoholism Plan of Treatment: Follow up with outpatient addiction medicine and to be started on Camparal Avoid drinking alcohol, you do not qualify for Detox at this time Assessment: as above
--- NOTE | 2022-05-19 12:40 | MHC.CM.PN ---
DP: PT HAS BEEN MEDICALLY CLEARED FOR DC HOME, NO SERVICES. RN AWARE. PT REQUESTS A [facility] HOME, SET UP FOR 1:30PM WITH AMY
== END 2022-05-19 13:30 | disposition home or self-care (01) | DRG 897 ==
LOC: HO.ED 06:56 → HO.EDOVER 11:24 → HO.S3 12:59
PROVIDERS: Admitting Provider Internal Medicine; Emergency Provider Internal Medicine; PCP Internal Medicine; Visit Provider Internal Medicine
DX: F10.239 Alcohol dependence with withdrawal, unspecified (principal); F10.229 Alcohol dependence with intoxication, unspecified; J44.9 Chronic obstructive pulmonary disease, unspecified; F17.210 Nicotine dependence, cigarettes, uncomplicated; Y90.8 Blood alcohol level of 240 mg/100 ml or more; Z20.822 Contact with and (suspected) exposure to COVID-19; Z86.718 Personal history of other venous thrombosis and embolism; Z71.6 Tobacco abuse counseling; Z79.01 Long term (current) use of anticoagulants; Z79.899 Other long term (current) drug therapy
CPT/HCPCS: 36415; 71045; 71275; 80053; 82077; 82803; 83735; 85025; 87635; 93005; 94640; 99285; J2560; Q9967

== ENCOUNTER 2022-05-20 06:47 | Emergency (ER) | payer OTHER, SELFPAY ==
[2022-05-20 07:04] VITALS: BP 139/77; BP 96/57; PULSE 63; PULSE 75; RESP 20; TEMP 36.5; O2SAT 97; BMI 21.4
[2022-05-20 07:30] LABS: MANUAL DIFF FLAG NO
[2022-05-20 07:32] LABS: Basophils Absolute Auto 0.1 X10*3/uL (0.0-0.2); Basophils Percent Auto 1.3 % (0-2); Eosinophils Absolute Auto 0.1 X10*3/uL (0.0-0.4); Eosinophils Percent Auto 3.5 % (0-4); Hematocrit 33.2 % (42.0-52.0); Hemoglobin 10.9 g/dl (14.0-18.0); Imm Gran Abs Auto 0.02 X10*3/uL (0.00-0.03); Imm Gran Pct Auto 0.5 % (0.0-0.4); Lymphocytes Absolute Auto 1.7 X10*3/uL (1.2-4.9); Lymphocytes Percent Auto 44.4 % (20-40); Mean Corpuscular HGB Conc 32.8 g/dl (31.0-36.0); Mean Corpuscular Hemoglobin 28.3 pg (27.0-33.0); Mean Corpuscular Volume 86.2 fL (80.0-98.0); Mean Platelet Volume 9.7 fL (9.4-12.4); Monocytes Absolute Auto 0.6 X10*3/uL (0.1-1.2); Monocytes Percent Auto 16.8 % (2-11); Neutrophils Absolute Auto 1.3 x10*3/uL (2.0-8.3); Neutrophils Percent Auto 33.5 % (45-73); Platelet Count 139 X10*3/uL (160-400); Red Blood Count 3.85 X10*6/uL (4.60-5.80); Red Cell Distribution Width 16.7 % (11.0-16.0); White Blood Count 3.7 X10*3/uL (4.8-10.8)
[2022-05-20 07:41] VITALS: BP 101/66; PULSE 63; RESP 14; O2SAT 97
[2022-05-20 07:49] LABS: COVID-19 Test Negative (Negative); IDNOW Serial# 08D9AD1C
--- NOTE | 2022-05-20 07:58 | ED.GENADULT ---
HPI - General Adult General Chief complaint: ETOH/Substance Use Stated complaint: WANTS DETOX,LAST ETOH USE 10 MINUTES AGO Time Seen by Provider: 05/20/22 07:29 Source: patient and EMS Mode of arrival: EMS Limitations: no limitations History of Present Illness HPI narrative: 61-year-old male Related Data Home Medications Medication Instructions Recorded Confirmed docusate sodium 100 mg tablet (DOK) 100 mg PO BID PRN Constipation 02/06/22 05/18/22 ipratropium 20 mcg-albuterol 100 1 puff inhalation QID 02/06/22 05/18/22 mcg/actuation mist for inhalation (Combivent Respimat) sertraline 25 mg tablet 1 tab PO DAILY 05/18/22 05/18/22 Previous Rx's Medication Instructions Recorded albuterol sulfate 90 mcg/actuation 2 puff inhalation Q4-6H PRN 12/04/21 aerosol inhaler (ProAir HFA) Wheezing #8.5 grams apixaban 5 mg tablet (Eliquis) 5 mg PO BID #30 tabs 03/15/22 acamprosate 333 mg tablet,delayed 666 mg PO TID #90 tabs 05/19/22 release acamprosate 333 mg tablet,delayed 666 mg PO QAM #20 tabs 05/20/22 release Allergies Allergy/AdvReac Type Severity Reaction Status Date / Time Peanut Butter Allergy Facial Verified 05/18/22 01:24 Swelling raspberry Allergy Facial Verified 05/18/22 01:24 Swelling PMFSH Past Medical History Medical History Alcohol abuse Alcohol use disorder, severe, dependence Asthma COPD (chronic obstructive pulmonary disease) DVT (deep venous thrombosis) Neuropathy Subdural hematoma Tobacco abuse Social History Social History Household Members: None Housing: House Do you presently have visiting nurse or other home services: No Alcohol intake: current Alcohol intake frequency: 3 or more drinks per day Alcohol type: hard liquor Patient Tobacco Use Status: Current everyday Tobacco user Tobacco use type: Cigarette Cigarette Packs Per Day: 1 Cigarettes Per Day: 20.0 Smoked in Last 30 Days: Yes e-Cigarette/Vaping Use: Never Used Second Hand Smoke Exposure: No Use of substances other than those prescribed or required for medical reasons: No Substance Use Type: Marijuana Advance Directives: Yes Advance Directives on File: Yes Advance Directives Date on File: 03/05/22 service: No Current occupational status: disabled Physical Exam ED Vital Signs: Vital Signs - 24 hr 05/20/22 07:04 05/20/22 07:41 Temperature 97.7 F Pulse Rate 63 63 Respiratory Rate 20 14 Blood Pressure 96/57 L 101/66 Pulse Oximetry 97 97 Oxygen Delivery Method Room Air Room Air BMI result Body Mass Index 21.4 Course Course Course Narrative: 61-year-old male daily alcohol abuser came in seeking detox, patient was seen and evaluated by care team patient was just discharged from inpatient yesterday after he was on phenobarb, [facility] with Out[facility] Addiction Medicine. Medical Decision Making Differential Diagnosis Differential Diagnoses: The differential diagnosis associated with the presentation includes (Anemia, electrolyte disturbance, dehydration, acute renal insufficiency, alcohol withdrawal.) Lab Data MDM Lab Attestation statement: I reviewed the patient's lab results. 05/20/22 07:23 05/20/22 07:23 Labs: Lab Results 05/20/22 05/20/22 05/20/22 Range/Units 07:23 07:23 07:23 WBC 3.7 L (4.8-10.8) X10*3/uL RBC 3.85 L (4.60-5.80) X10*6/uL Hgb 10.9 L (14.0-18.0) g/dl Hct 33.2 L (42.0-52.0) % MCV 86.2 (80.0-98.0) fL MCH 28.3 (27.0-33.0) pg MCHC 32.8 (31.0-36.0) g/dl RDW 16.7 H (11.0-16.0) % Plt Count 139 L (160-400) X10*3/uL MPV 9.7 (9.4-12.4) fL Immature Gran % (Auto) 0.5 H (0.0-0.4) % Neut % (Auto) 33.5 L (45-73) % Lymph % (Auto) 44.4 H (20-40) % [place] % (Auto) 16.8 H (2-11) % Eos % (Auto) 3.5 (0-4) % Baso % (Auto) 1.3 (0-2) % Lymph # (Auto) 1.7 (1.2-4.9) X10*3/uL [place] # (Auto) 0.6 (0.1-1.2) X10*3/uL Eos # (Auto) 0.1 (0.0-0.4) X10*3/uL Baso # (Auto) 0.1 (0.0-0.2) X10*3/uL Abs Immat Gran (auto) 0.02 (0.00-0.03) X10*3/uL Absolute Neuts (auto) 1.3 L (2.0-8.3) x10*3/uL Absolute Nucleated RBC 0.000 (0.0-0.012) X10*3/uL Nucleated RBC % (auto) 0.0 (0.0-0.2) /100WBC Sodium 144 (135-145) mmol/L Potassium 3.5 (3.3-5.1) mmol/L Chloride 106 (96-108) mmol/L Carbon Dioxide 28 (22-29) mmol/L Anion Gap 14 (12-20) BUN 5 L (9-16) mg/dL Creatinine 0.74 (0.5-1.4) mg/dL Estim Creat Clear Calc 97.5 Estimated GFR > 60 Random Glucose 93 (60-115) mg/dL Calcium 8.8 (8.4-10.2) mg/dL Magnesium 1.6 (1.6-2.6) mg/dL Total Bilirubin 0.5 (0.0-1.0) mg/dL AST 50 H (5-37) U/L ALT 37 (0-40) U/L Alkaline Phosphatase 99 (39-117) U/L Total Protein 6.3 L (6.5-8.0) g/dL Albumin 3.6 (3.5-5.0) g/dL Urine Color Urine Appearance Urine pH (5.0-9.0) Ur Specific [place] (1.005-1.025) Urine Protein (Neg-Trace) mg/dL Urine Glucose (UA) (Negative) mg/dL Urine Ketones (Negative) mg/dL Urine Blood (Negative) Urine Nitrite (Negative) Ur Leukocyte Esterase (Negative) Urine RBC (0-2) /HPF Urine WBC (0-5) /HPF Ur Squamous Epith Cells (0-2) /HPF Urine Bacteria (None Seen) Hyaline Casts (0-2) /LPF Urine Opiates Screen (Not Detect) Urine Fentanyl Screen (Not Detect) Ur Barbiturates Screen (Not Detect) Ur Phencyclidine Scrn (Not Detect) Ur Amphetamines Screen (Not Detect) U Benzodiazepines Scrn (Not Detect) Urine Cocaine Screen (Not Detect) U Marijuana (THC) Screen (Not Detect) Ethyl Alcohol 323 H* mg/dL COVID-19 (NELY) Negative (Negative) COVID-19 Clin Com See Note 05/20/22 05/20/22 Range/Units 10:11 10:11 WBC (4.8-10.8) X10*3/uL RBC (4.60-5.80) X10*6/uL Hgb (14.0-18.0) g/dl Hct (42.0-52.0) % MCV (80.0-98.0) fL MCH (27.0-33.0) pg MCHC (31.0-36.0) g/dl RDW (11.0-16.0) % Plt Count (160-400) X10*3/uL MPV (9.4-12.4) fL Immature Gran % (Auto) (0.0-0.4) % Neut % (Auto) (45-73) % Lymph % (Auto) (20-40) % [place] % (Auto) (2-11) % Eos % (Auto) (0-4) % Baso % (Auto) (0-2) % Lymph # (Auto) (1.2-4.9) X10*3/uL [place] # (Auto) (0.1-1.2) X10*3/uL Eos # (Auto) (0.0-0.4) X10*3/uL Baso # (Auto) (0.0-0.2) X10*3/uL Abs Immat Gran (auto) (0.00-0.03) X10*3/uL Absolute Neuts (auto) (2.0-8.3) x10*3/uL Absolute Nucleated RBC (0.0-0.012) X10*3/uL Nucleated RBC % (auto) (0.0-0.2) /100WBC Sodium (135-145) mmol/L Potassium (3.3-5.1) mmol/L Chloride (96-108) mmol/L Carbon Dioxide (22-29) mmol/L Anion Gap (12-20) BUN (9-16) mg/dL Creatinine (0.5-1.4) mg/dL Estim Creat Clear Calc Estimated GFR Random Glucose (60-115) mg/dL Calcium (8.4-10.2) mg/dL Magnesium (1.6-2.6) mg/dL Total Bilirubin (0.0-1.0) mg/dL AST (5-37) U/L ALT (0-40) U/L Alkaline Phosphatase (39-117) U/L Total Protein (6.5-8.0) g/dL Albumin (3.5-5.0) g/dL Urine Color Yellow Urine Appearance Cloudy Urine pH 7.5 (5.0-9.0) Ur Specific [place] 1.010 (1.005-1.025) Urine Protein Trace (Neg-Trace) mg/dL Urine Glucose (UA) Negative (Negative) mg/dL Urine Ketones Negative (Negative) mg/dL Urine Blood Negative (Negative) Urine Nitrite Negative (Negative) Ur Leukocyte Esterase Small (1+) H (Negative) Urine RBC 0-2 (0-2) /HPF Urine WBC 6-10 H (0-5) /HPF Ur Squamous Epith Cells 0-2 (0-2) /HPF Urine Bacteria None Seen (None Seen) Hyaline Casts 0-2 (0-2) /LPF Urine Opiates Screen Not Detected (Not Detect) Urine Fentanyl Screen Not Detected (Not Detect) Ur Barbiturates Screen POSITIVE H (Not Detect) Ur Phencyclidine Scrn Not Detected (Not Detect) Ur Amphetamines Screen Not Detected (Not Detect) U Benzodiazepines Scrn Not Detected (Not Detect) Urine Cocaine Screen Not Detected (Not Detect) U Marijuana (THC) Screen Not Detected (Not Detect) Ethyl Alcohol mg/dL COVID-19 (NELY) (Negative) COVID-19 Clin Com Independent Interpretation I performed an independent interpretation of an: EKG (A normal sinus rhythm at 78 beats per minutes, RBBB, otherwise normal intervals, no change from previous EKG.) Discharge Plan Discharge Clinical Impression: Alcohol abuse Patient Disposition: Home, Self-Care Instructions: Abuse of Alcohol (ED) Prescriptions: New acamprosate 333 mg tablet,delayed release (DR/EC) 666 mg PO QAM Qty: 20 0RF No Action albuterol sulfate [ProAir HFA] 90 mcg/actuation HFA aerosol inhaler 2 puff inhalation Q4-6H PRN (Reason: Wheezing) Qty: 8.5 0RF Eliquis 5 mg tablet 5 mg PO BID Qty: 30 0RF docusate sodium [DOK] 100 mg tablet 100 mg PO BID PRN (Reason: Constipation) Combivent Respimat 20-100 mcg/actuation mist 1 puff inhalation QID sertraline 25 mg tablet 1 tab PO DAILY acamprosate 333 mg tablet,delayed release (DR/EC) 666 mg PO TID Qty: 90 1RF Referrals: Cristhian Delgado MD [Primary Care Provider] - Interventions: Mason-Suicide Risk Severity Scale Last Done: 05/20/22 07:34
[2022-05-20 08:04] LABS: Alanine Aminotransferase 37 U/L (0-40); Albumin Level 3.6 g/dL (3.5-5.0); Alkaline Phosphatase 99 U/L (39-117); Anion Gap 14 (12-20); Aspartate Amino Transferase 50 U/L (5-37); Bilirubin Total 0.5 mg/dL (0.0-1.0); Blood Urea Nitrogen 5 mg/dL (9-16); Calcium 8.8 mg/dL (8.4-10.2); Carbon Dioxide 28 mmol/L (22-29); Chloride 106 mmol/L (96-108); Creatinine Clr Calc Pharmacy 97.5; Estimated Glomerular Filt Rate > 60; Ethanol 323 mg/dL; Glucose Random 93 mg/dL (60-115); Magnesium 1.6 mg/dL (1.6-2.6); Potassium 3.5 mmol/L (3.3-5.1); Sodium 144 mmol/L (135-145); Total Protein 6.3 g/dL (6.5-8.0)
[2022-05-20 10:31] LABS: Appearance Urine Cloudy; Color Urine Yellow; Glucose Urine UA Negative (Negative); Leukocyte Esterase Urine Small (1+) (Negative); Nitrite Urine Negative (Negative); PH 7.5 (5.0-9.0); UMIC TRIGGER UACC YES; Urine Blood Negative (Negative); Urine Ketones Negative (Negative); Urine Protein Trace mg/dL (Neg-Trace)
[2022-05-20 10:37] LABS: Bacteria Urine None Seen (None Seen); Hyaline Casts Urine 0-2 /LPF (0-2); RBC Urine 0-2 /HPF (0-2); Squamous Epithelial Cell Urine 0-2 /HPF (0-2); UACC Culture Trigger YES
[2022-05-20 10:38] LABS: Fentanyl, urine Not Detected (Not Detect)
[2022-05-20 11:00] VITALS: BP 101/66; PULSE 84; RESP 18
[2022-05-20 11:07] LABS: Amphetamine Screen Urine Not Detected (Not Detect); Barbiturates, Urine POSITIVE (Not Detect); Benzodiazepines Screen Urine Not Detected (Not Detect); Cannabinoid Screen Urine Not Detected (Not Detect); Cocaine Screen Urine Not Detected (Not Detect); Opiate Screen Urine Not Detected (Not Detect); Phencyclidine Screen Urine Not Detected (Not Detect)
--- NOTE | 2022-05-20 11:33 | PC.NURSE ---
pt reports wanting to be escorted out of [facility]
--- NOTE | 2022-05-20 11:34 | PC.NURSE ---
pt ambulating independently - dressed himself. wanting to leave
--- NOTE | 2022-05-20 11:35 | PC.NURSE ---
dr shoemaker made aware that pt wants to d/c at this time.
--- NOTE | 2022-05-20 13:04 | MHC.RECOVRN ---
Met with pt prior to dc to discuss alcohol use and dc plans. [place] [facility] [place] and had spoken to [facility] regarding [facility] and acamprosate. Pt interested in restarting acamprosate and initiating care at the [facility]. Appt made for 06/02 at 2PM. Prescription sent to pts pharmacy. Pt interested in ATS however, due to recent hospitalization pt not eligble. Denies other questions or concerns.
== END 2022-05-20 11:38 | disposition home or self-care (01) ==
PROVIDERS: Emergency Provider Emergency Medicine; PCP Internal Medicine
DX: F10.10 Alcohol abuse, uncomplicated (principal); Y90.8 Blood alcohol level of 240 mg/100 ml or more; Z20.822 Contact with and (suspected) exposure to COVID-19; F17.210 Nicotine dependence, cigarettes, uncomplicated; F12.90 Cannabis use, unspecified, uncomplicated; Z86.718 Personal history of other venous thrombosis and embolism; Z79.01 Long term (current) use of anticoagulants; Z79.899 Other long term (current) drug therapy
CPT/HCPCS: 80053; 80307; 81001; 82077; 83735; 85025; 87086; 87635; 99284; 99285

== ENCOUNTER 2022-05-29 00:31 | Emergency (ER) | payer OTHER, SELFPAY ==
--- NOTE | ~2022-05-29 | XR_ITS ---
EXAMINATION: XR CHEST CLINICAL INFORMATION: Shortness of breath COMPARISON: 05/18/2022 TECHNIQUE: Frontal view of the chest was obtained. FINDINGS: Cardiac leads overlie the chest. The lungs are well expanded. There is no focal consolidation, edema, or effusion. No pneumothorax. The cardiomediastinal silhouette is within normal limits. No acute osseous abnormality. XR/XR chest 1V IMPRESSION: No acute pulmonary disease.
[2022-05-29 00:39] VITALS: BP 112/67; BP 134/70; PULSE 88; PULSE 93; RESP 18; TEMP 36.7; O2SAT 96; BMI 21.9
--- NOTE | 2022-05-29 00:53 | ECG_ITS ---
Test Reason : ETOH Blood Pressure : / mmHG Vent. Rate : 076 BPM Atrial Rate : 076 BPM P-R Int : 140 ms QRS Dur : 128 ms QT Int : 406 ms P-R-T Axes : 080 -54 056 degrees QTc Int : 456 ms Normal sinus rhythm Right bundle branch block Left anterior fascicular block Bifascicular block Abnormal ECG When compared with ECG of 18-MAY-2022 07:12, No significant change was found Referred By: Raymundo Phipps Electronically Signed By:RENEE TRAMMELL
--- NOTE | 2022-05-29 00:58 | ED.GENADULT ---
HPI - General Adult General Chief complaint: ETOH/Substance Use Stated complaint: etoh Time Seen by Provider: 05/29/22 00:39 Source: patient and RN notes reviewed Mode of arrival: ambulatory Limitations: no limitations History of Present Illness HPI narrative: 61-year-old male with past medical history significant for alcohol abuse, COPD presents for evaluation of ?I need detox. ? Patient was most recently here on 05/18/2022 presenting for similar complaint. The patient was found to be hypoxic during his stay and was admitted to the medical service for acute on chronic COPD. The patient had a CTA at the time as he is supposed Eliquis for a DVT for last 7 years but it was unclear if he was compliant. The CTA that was completed did not show any evidence of PE but did show questionable bronchopneumonia predominately left lower lobe. It does not appear that this was treated The patient was discharged the following day and was recanting his detox request. Currently the patient states that he drinks about 2 L of whiskey daily his last drink was about 6 hours prior to arrival Related Data Home Medications Medication Instructions Recorded Confirmed docusate sodium 100 mg tablet (DOK) 100 mg PO BID PRN Constipation 02/06/22 05/18/22 ipratropium 20 mcg-albuterol 100 1 puff inhalation QID 02/06/22 05/18/22 mcg/actuation mist for inhalation (Combivent Respimat) sertraline 25 mg tablet 1 tab PO DAILY 05/18/22 05/18/22 Previous Rx's Medication Instructions Recorded albuterol sulfate 90 mcg/actuation 2 puff inhalation Q4-6H PRN 12/04/21 aerosol inhaler (ProAir HFA) Wheezing #8.5 grams apixaban 5 mg tablet (Eliquis) 5 mg PO BID #30 tabs 03/15/22 acamprosate 333 mg tablet,delayed 666 mg PO TID #90 tabs 05/19/22 release acamprosate 333 mg tablet,delayed 666 mg PO QAM #20 tabs 05/20/22 release Allergies Allergy/AdvReac Type Severity Reaction Status Date / Time Peanut Butter Allergy Facial Verified 05/18/22 01:24 Swelling raspberry Allergy Facial Verified 05/18/22 01:24 Swelling Review of Systems Constitutional: Constitutional: Reports as per HPI, Denies chills, Denies fatigue, Denies fever(s) and Denies headache(s) ENT: Denies headache(s) Cardiovascular: Cardiovascular: Denies chest pain and Denies dyspnea Respiratory: Respiratory: Reports chest congestion, Reports cough and Denies dyspnea Gastrointestinal: Gastrointestinal: Denies abdominal pain, Denies constipation and Denies vomiting Genitourinary: Genitourinary: Denies difficulty urinating and Denies dysuria Neurologic: Denies headache(s) and Denies focal weakness Endocrine: Endocrine: Denies fatigue PMFSH Past Medical History Medical History Alcohol abuse Alcohol use disorder, severe, dependence Asthma COPD (chronic obstructive pulmonary disease) DVT (deep venous thrombosis) Neuropathy Subdural hematoma Tobacco abuse Social History Social History Household Members: None Housing: House Do you presently have visiting nurse or other home services: No Alcohol intake: current Alcohol intake frequency: 3 or more drinks per day Alcohol type: hard liquor Patient Tobacco Use Status: Current everyday Tobacco user Tobacco use type: Cigarette Cigarette Packs Per Day: 1 Cigarettes Per Day: 20.0 e-Cigarette/Vaping Use: Never Used Second Hand Smoke Exposure: No Substance Use Type: Marijuana Advance Directives: Yes Advance Directives on File: Yes Advance Directives Date on File: 03/05/22 service: No Current occupational status: disabled Physical Exam ED Vital Signs: Vital Signs - 24 hr 05/29/22 00:39 05/29/22 06:35 Temperature 98.1 F 98.2 F Pulse Rate 93 77 Respiratory Rate 18 17 Blood Pressure 112/67 110/69 Pulse Oximetry 96 94 Oxygen Delivery Method Room Air Room Air BMI result Body Mass Index 21.9 Const General: healthy appearing, comfortable, no acute distress, alert and awake Nutritional Appearance: well nourished Orientation/consciousness: patient oriented x3 HENMT Head: Yes normocephalic and Yes atraumatic Throat: Yes posterior oropharynx normal Eyes Eyelids: Yes eyelids normal Conjunctivae: conjunctivae normal Sclerae: sclerae normal Corneas: corneas normal Pupils: Equal, round and reactive pupils present EOM: EOMs intact bilaterally Neck Neck: Yes full ROM Resp Effort & Inspection: normal respiratory effort, able to speak in complete sentences, no audible wheezes and not labored Auscultation: other (Diffuse wheeze with rhonchi throughout. No crackles) Cardio Rate: regular rate Rhythm: regular rhythm GI Inspection: No distended Palpation (GI): Soft to palpation, not firm, nontender, no guarding and not rigid Auscultation: normoactive bowel sounds Skin General skin exam: no rashes or lesions noted and elasticity normal Neuro General: patient oriented x3 Cranial nerves: Yes CN's II-XII intact bilaterally, Yes Equal, round and reactive pupils present and Yes Bilaterally intact EOM present Cognition (Neuro): normal cognition Extrem Other: Moving all extremities well without any obvious deformities Course Reevaluation(s) Reevaluation #1: The patient did mention that he has had dark stools over the last few days. His hemoglobin hematocrit are actually improved when compared to last week. I recommended rectal examination to evaluate guaiac on the patient adamantly refuses. He reports under no circumstances will heal on rectal examination for guaiac testing. However given that his blood pressure and heart rate are stable the patient's hemoglobin hematocrit are actually improved from 1 week ago I do not feel that an acute GI bleed is likely at this time. Time: 01:10 Reevaluation #2: At this time, the patient is medically cleared for care team evaluation Time: 01:34 Medical Decision Making Medical Decision Making [facility] Narrative: Patient admits to drinking alcohol today requesting detox. The patient does have a cough with coarse lung sounds. He denies any shortness of breath compared to his baseline. Vital signs are stable on arrival. We will get a chest x-ray especially given his CTA showed concern for bronchopneumonia that was untreated. If the patient is medically cleared he will be referred to the care team. Differential Diagnosis Alcohol abuse Alcohol withdrawal Substance abuse Detox COPD Pneumonia Lab Data [facility] Lab Attestation statement: I reviewed the patient's lab results. Labs are significant for mild anemia but improved when compared to most recent visit. Mild transaminitis consistent with his alcohol abuse no evidence of acute pancreatitis 05/29/22 01:01 05/29/22 01:01 Labs: Lab Results 05/29/22 05/29/22 05/29/22 Range/Units 01:01 01:01 01:01 WBC 6.6 (4.8-10.8) X10*3/uL RBC 4.07 L (4.60-5.80) X10*6/uL Hgb 11.5 L (14.0-18.0) g/dl Hct 35.2 L (42.0-52.0) % MCV 86.5 (80.0-98.0) fL MCH 28.3 (27.0-33.0) pg MCHC 32.7 (31.0-36.0) g/dl RDW 16.3 H (11.0-16.0) % Plt Count 165 (160-400) X10*3/uL MPV 9.3 L (9.4-12.4) fL Immature Gran % (Auto) 0.6 H (0.0-0.4) % Neut % (Auto) 67.8 (45-73) % Lymph % (Auto) 18.8 L (20-40) % [place] % (Auto) 11.0 (2-11) % Eos % (Auto) 0.9 (0-4) % Baso % (Auto) 0.9 (0-2) % Lymph # (Auto) 1.2 (1.2-4.9) X10*3/uL [place] # (Auto) 0.7 (0.1-1.2) X10*3/uL Eos # (Auto) 0.1 (0.0-0.4) X10*3/uL Baso # (Auto) 0.1 (0.0-0.2) X10*3/uL Abs Immat Gran (auto) 0.04 H (0.00-0.03) X10*3/uL Absolute Neuts (auto) 4.5 (2.0-8.3) x10*3/uL Absolute Nucleated RBC 0.000 (0.0-0.012) X10*3/uL Nucleated RBC % (auto) 0.0 (0.0-0.2) /100WBC Sodium 138 (135-145) mmol/L Potassium 3.7 (3.3-5.1) mmol/L Chloride 102 (96-108) mmol/L Carbon Dioxide 22 (22-29) mmol/L Anion Gap 18 (12-20) BUN 7 L (9-16) mg/dL Creatinine 0.84 (0.5-1.4) mg/dL Estim Creat Clear Calc 87.7 Estimated GFR > 60 Random Glucose 81 (60-115) mg/dL Calcium 8.9 (8.4-10.2) mg/dL Total Bilirubin 1.0 (0.0-1.0) mg/dL Direct Bilirubin 0.4 (0.0-0.5) mg/dL AST 108 H (5-37) U/L ALT 58 H (0-40) U/L Alkaline Phosphatase 129 H (39-117) U/L Troponin I High Sens (<3.5-35.0) ng/L Total Protein 7.5 (6.5-8.0) g/dL Albumin 4.2 (3.5-5.0) g/dL Lipase 17 (8-78) U/L Ethyl Alcohol 156 mg/dL Influenza Type A (PCR) (Negative) Influenza Type B (PCR) (Negative) RSV RNA Qual (PCR) (Negative) SARS-CoV-2 RNA (RT-PCR) (Negative) 05/29/22 05/29/22 Range/Units 01:07 01:34 WBC (4.8-10.8) X10*3/uL RBC (4.60-5.80) X10*6/uL Hgb (14.0-18.0) g/dl Hct (42.0-52.0) % MCV (80.0-98.0) fL MCH (27.0-33.0) pg MCHC (31.0-36.0) g/dl RDW (11.0-16.0) % Plt Count (160-400) X10*3/uL MPV (9.4-12.4) fL Immature Gran % (Auto) (0.0-0.4) % Neut % (Auto) (45-73) % Lymph % (Auto) (20-40) % [place] % (Auto) (2-11) % Eos % (Auto) (0-4) % Baso % (Auto) (0-2) % Lymph # (Auto) (1.2-4.9) X10*3/uL [place] # (Auto) (0.1-1.2) X10*3/uL Eos # (Auto) (0.0-0.4) X10*3/uL Baso # (Auto) (0.0-0.2) X10*3/uL Abs Immat Gran (auto) (0.00-0.03) X10*3/uL Absolute Neuts (auto) (2.0-8.3) x10*3/uL Absolute Nucleated RBC (0.0-0.012) X10*3/uL Nucleated RBC % (auto) (0.0-0.2) /100WBC Sodium (135-145) mmol/L Potassium (3.3-5.1) mmol/L Chloride (96-108) mmol/L Carbon Dioxide (22-29) mmol/L Anion Gap (12-20) BUN (9-16) mg/dL Creatinine (0.5-1.4) mg/dL Estim Creat Clear Calc Estimated GFR Random Glucose (60-115) mg/dL Calcium (8.4-10.2) mg/dL Total Bilirubin (0.0-1.0) mg/dL Direct Bilirubin (0.0-0.5) mg/dL AST (5-37) U/L ALT (0-40) U/L Alkaline Phosphatase (39-117) U/L Troponin I High Sens < 3.5 (<3.5-35.0) ng/L Total Protein (6.5-8.0) g/dL Albumin (3.5-5.0) g/dL Lipase (8-78) U/L Ethyl Alcohol mg/dL Influenza Type A (PCR) NEGATIVE (Negative) Influenza Type B (PCR) NEGATIVE (Negative) RSV RNA Qual (PCR) NEGATIVE (Negative) SARS-CoV-2 RNA (RT-PCR) NEGATIVE (Negative) Independent Interpretation I performed an independent interpretation of an: EKG Interpretation: Sinus rhythm with a rate of 76 beats per minute. No significant change when compared to the previous from 10 days prior Discharge Plan Discharge Clinical Impression: Alcohol abuse Patient Disposition: Still a Patient Instructions: Abuse of Alcohol (ED) Prescriptions: No Action albuterol sulfate [ProAir HFA] 90 mcg/actuation HFA aerosol inhaler 2 puff inhalation Q4-6H PRN (Reason: Wheezing) Qty: 8.5 0RF Eliquis 5 mg tablet 5 mg PO BID Qty: 30 0RF acamprosate 333 mg tablet,delayed release (DR/EC) 666 mg PO QAM Qty: 20 0RF docusate sodium [DOK] 100 mg tablet 100 mg PO BID PRN (Reason: Constipation) Combivent Respimat 20-100 mcg/actuation mist 1 puff inhalation QID sertraline 25 mg tablet 1 tab PO DAILY acamprosate 333 mg tablet,delayed release (DR/EC) 666 mg PO TID Qty: 90 1RF
[2022-05-29 01:06] LABS: MANUAL DIFF FLAG NO
[2022-05-29 01:07] LABS: Basophils Absolute Auto 0.1 X10*3/uL (0.0-0.2); Basophils Percent Auto 0.9 % (0-2); Eosinophils Absolute Auto 0.1 X10*3/uL (0.0-0.4); Eosinophils Percent Auto 0.9 % (0-4); Hematocrit 35.2 % (42.0-52.0); Hemoglobin 11.5 g/dl (14.0-18.0); Imm Gran Abs Auto 0.04 X10*3/uL (0.00-0.03); Imm Gran Pct Auto 0.6 % (0.0-0.4); Lymphocytes Absolute Auto 1.2 X10*3/uL (1.2-4.9); Lymphocytes Percent Auto 18.8 % (20-40); Mean Corpuscular HGB Conc 32.7 g/dl (31.0-36.0); Mean Corpuscular Hemoglobin 28.3 pg (27.0-33.0); Mean Corpuscular Volume 86.5 fL (80.0-98.0); Mean Platelet Volume 9.3 fL (9.4-12.4); Monocytes Absolute Auto 0.7 X10*3/uL (0.1-1.2); Neutrophils Absolute Auto 4.5 x10*3/uL (2.0-8.3); Neutrophils Percent Auto 67.8 % (45-73); Platelet Count 165 X10*3/uL (160-400); Red Blood Count 4.07 X10*6/uL (4.60-5.80); Red Cell Distribution Width 16.3 % (11.0-16.0); White Blood Count 6.6 X10*3/uL (4.8-10.8)
[2022-05-29 01:22] LABS: Ethanol 156 mg/dL
[2022-05-29 01:24] LABS: Alanine Aminotransferase 58 U/L (0-40); Albumin Level 4.2 g/dL (3.5-5.0); Alkaline Phosphatase 129 U/L (39-117); Anion Gap 18 (12-20); Aspartate Amino Transferase 108 U/L (5-37); Bilirubin Direct 0.4 mg/dL (0.0-0.5); Blood Urea Nitrogen 7 mg/dL (9-16); Calcium 8.9 mg/dL (8.4-10.2); Carbon Dioxide 22 mmol/L (22-29); Chloride 102 mmol/L (96-108); Creatinine Clr Calc Pharmacy 87.7; Estimated Glomerular Filt Rate > 60; Glucose Random 81 mg/dL (60-115); Lipase 17 U/L (8-78); Potassium 3.7 mmol/L (3.3-5.1); Sodium 138 mmol/L (135-145); Total Protein 7.5 g/dL (6.5-8.0)
[2022-05-29 01:35] LABS: Troponin-I High Sensitivity < 3.5 ng/L (<3.5-35.0)
[2022-05-29 02:18] LABS: Influenza A PCR NEGATIVE (Negative); Influenza B PCR NEGATIVE (Negative); Resp Syncy Virus RNA Qual PCR NEGATIVE (Negative); SARS COV2 PCR INHOUSE NEGATIVE (Negative)
--- NOTE | 2022-05-29 03:50 | PC.NURSE ---
Patient is resting comfortably with his eyes closed. VSS. Last CIWA score 5, no s/s of ETOH withdrawal noted. Patient denies SI/HI. Patient is able to make his needs known. Call goetz within patient's reach. Patient reports he is here for detox from ETOH. Labs drawn. Plan for assessment by onsite health coach/care team consult.
[2022-05-29 06:35] VITALS: BP 110/69; PULSE 77; RESP 17; TEMP 36.8; O2SAT 94
--- NOTE | 2022-05-29 07:24 | PC.NURSE ---
Patient resting on stretcher. Set up breakfast tray for patient. Patient calm and cooperative complaining of pain in his hands, hx of neuropathy.
[2022-05-29 08:07] VITALS: BP 103/63; PULSE 109; RESP 18; O2SAT 93
--- NOTE | 2022-05-29 08:33 | PC.NURSE ---
Med rec done with patient, this was communicated to provider who is going to order patients home medications
--- NOTE | 2022-05-29 09:07 | PHA.MEDREC ---
Pharmacy Consult ? Medication Reconciliation Pharmacy has completed the medication reconciliation.
--- NOTE | 2022-05-29 09:38 | PC.NURSE ---
Recovery team spoke with patient, he is going to be a bed search at this time.
--- NOTE | 2022-05-29 10:13 | MHC.RECOVRN ---
This chief underwriter met with patient, patient requesting detox. Patient reports since last hospitalization drinking 1-2 pints and nips daily, patient states did not drink for 4 days and went into withdrawal . Patient reports drank a few shots [employer]. Patient denies withdrawal s/s at this time. This chief underwriter reviewed options, if patient interested in [facility], could make appt at [facility], if patient interested in detox, our team would check on bed availability. Patient initially interested in detox bedsearch, shortly after declined detox bedsearch and request to d/c. Prior to d/c this chief underwriter gave patient Addiction/Recovery contact phone number to follow up in regards to interest in [facility] and/or addiction supports, patient took card.
[2022-05-29 10:22] VITALS: BP 128/73; PULSE 83; RESP 16; O2SAT 95
== END 2022-05-29 11:07 | disposition home or self-care (01) ==
PROVIDERS: Physician Assistant; Emergency Provider Internal Medicine; PCP Internal Medicine
DX: F10.10 Alcohol abuse, uncomplicated (principal); Y90.6 Blood alcohol level of 120-199 mg/100 ml; R00.0 Tachycardia, unspecified; F17.210 Nicotine dependence, cigarettes, uncomplicated; Z79.899 Other long term (current) drug therapy; Z20.822 Contact with and (suspected) exposure to COVID-19; Z20.828 Contact with and (suspected) exposure to other viral communicable diseases
CPT/HCPCS: 0241U; 36415; 71045; 80048; 80076; 82077; 83690; 84484; 85025; 93005; 99284; 99285

== ENCOUNTER 2022-06-01 11:00 | Emergency (ER) | payer OTHER, SELFPAY ==
[2022-06-01 11:07] VITALS: BP 150/100; PULSE 80; O2SAT 98
[2022-06-01 11:10] VITALS: BP 109/69; PULSE 100; RESP 18; TEMP 36.3; O2SAT 92; BMI 21.4
--- NOTE | 2022-06-01 11:25 | ED_ITS ---
HPI - General Adult General Chief complaint: ETOH/Substance Use <HIMA Carney - Last Filed: 06/01/22 16:50> Stated complaint: ETOH USE TODAY, WANTS DETOX PER EMS <HIMA Carney - Last Filed: 06/01/22 16:50> Time Seen by Provider: 06/01/22 11:26 <HIMA Carney Last Filed: 06/01/22 16:50> Source: patient and EMS <HIMA Carney Last Filed: 06/01/22 16:50> Mode of arrival: EMS <HIMA Carney Last Filed: 06/01/22 16:50> Limitations: no limitations <HIMA Carney Last Filed: 06/01/22 16:50> History of Present Illness HPI narrative: Patient is a 61 year old assigned male at with a history of alcohol abuse presenting to the emergency department today requesting detox. Patient states that he would like to go somewhere for detox from alcohol. Patient denies any dizziness, lightheadedness, abdominal pain, nausea, vomiting, fever, chills, blurry vision, double vision, loss of vision, chest pain, difficulty breathing, shortness of breath, back pain, night sweats, pain with urination, increased urinary frequency, increased urinary urgency, blood in his urine or stool, syncope or a near syncopal episode, recent trauma or falls, bowel incontinence, bladder incontinence, bowel retention, bladder retention, or any other complaints at this time. <HIMA Carney - Last Filed: 06/01/22 16:50> Severity: mild <HIMA Carney Last Filed: 06/01/22 16:50> Relieving factors: none <HIMA Carney Last Filed: 06/01/22 16:50> Exacerbating factors: none <HIMA Carney Last Filed: 06/01/22 16:50> Associated symptoms: denies other symptoms <HIMA Carney Last Filed: 06/01/22 16:50> Treatments prior to arrival: none <HIMA Carney Last Filed: 06/01/22 16:50> Related Data Home medications: Home Medications Medication Instructions Recorded Confirmed docusate sodium 100 mg tablet (DOK) 100 mg PO BID PRN Constipation 02/06/22 05/29/22 ipratropium 20 mcg-albuterol 100 1 puff inhalation QID 02/06/22 05/29/22 mcg/actuation mist for inhalation (Combivent Respimat) sertraline 25 mg tablet 1 tab PO DAILY 05/18/22 05/29/22 Previous Rx's Medication Instructions Recorded albuterol sulfate 90 mcg/actuation 2 puff inhalation Q4-6H PRN 12/04/21 aerosol inhaler (ProAir HFA) Wheezing #8.5 grams apixaban 5 mg tablet (Eliquis) 5 mg PO BID #30 tabs 03/15/22 albuterol sulfate 90 mcg/actuation 1 inh inhalation QID PRN shortness 06/01/22 aerosol inhaler of breath or wheezing #8.5 grams apixaban 5 mg tablet (Eliquis) 5 mg PO BID 30 days #60 tabs 06/01/22 ipratropium 20 mcg-albuterol 100 1 puff inhalation Q6H #4 grams 06/01/22 mcg/actuation mist for inhalation (Combivent Respimat) <HIMA Carney - Last Filed: 06/01/22 16:50> Allergies/adverse reactions: Allergies Allergy/AdvReac Type Severity Reaction Status Date / Time Peanut Butter Allergy Facial Verified 06/01/22 11:07 Swelling raspberry Allergy Facial Verified 06/01/22 11:07 Swelling <HIMA Carney - Last Filed: 06/01/22 16:50> Review of Systems Constitutional: Constitutional: Reports no additional constitutional complaints, Denies chills, Denies fever(s) and Denies night sweats <HIMA Carney Last Filed: 06/01/22 16:50> Eyes: Eyes: Reports no additional eye complaints, Denies blurry vision, Denies change in vision, Denies diplopia, Denies eye discharge, Denies loss of vision and Denies eye pain <HIMA Carney Last Filed: 06/01/22 16:50> ENT: Denies dizziness <HIMA Carney Last Filed: 06/01/22 16:50> Cardiovascular: Cardiovascular: Reports no additional cardiovascular complaints, Denies chest pain, Denies lightheadedness, Denies Loss of Consciousness and Denies dyspnea <HIMA Carney Last Filed: 06/01/22 16:50> Respiratory: Respiratory: Reports no additional respiratory complaints and Denies dyspnea <HIMA Carney Last Filed: 06/01/22 16:50> Gastrointestinal: Gastrointestinal: Reports no additional gastrointestinal complaints, Denies abdominal pain, Denies melena, Denies hematochezia, Denies change in bowel habits and Denies change in stool character <HIMA Carney Last Filed: 06/01/22 16:50> Genitourinary: Genitourinary: Reports no additional male genitourinary complaints, Denies hematuria, Denies oliguria, Denies difficulty urinating, Denies dysuria, Denies urinary frequency, Denies urinary hesitancy, Denies urinary incontinence and Denies urinary urgency <HIMA Carney Last Filed: 06/01/22 16:50> Musculoskeletal: Musculoskeletal: Reports no additional musculoskeletal complaints, Denies numbness and Denies tingling <HIMA Carney Last Filed: 06/01/22 16:50> Neurologic: Denies dizziness, Denies loss of vision, Denies numbness and Denies tingling <HIMA Carney Last Filed: 06/01/22 16:50> Psychiatric: Psychiatric: Reports no additional psychiatric complaints <HIMA Carney Last Filed: 06/01/22 16:50> Endocrine: Endocrine: Reports no additional endocrine complaints <HIMA Carney Last Filed: 06/01/22 16:50> Hematologic/Lymphatic: Hematologic/Lymphatic: Reports no additional hematologic/lymphatic complaints <HIMA Carney Last Filed: 06/01/22 16:50> Allergic/Immunologic: Allergic/Immunologic: Reports no additional allergic/immunologic complaints <HIMA Carney Last Filed: 06/01/22 16:50> PMFSH Past Medical History Attestation statement: The following information was validated with the patient. <HIMA Carney Last Filed: 06/01/22 16:50> Source: old records reviewed and nursing notes reviewed <HIMA Carney Last Filed: 06/01/22 16:50> Medical History: Medical History Acute and chronic respiratory failure with hypoxia Alcohol abuse Alcohol use disorder, severe, dependence Asthma COPD (chronic obstructive pulmonary disease) COPD (chronic obstructive pulmonary disease) DVT (deep venous thrombosis) Neuropathy Subdural hematoma Tobacco abuse <HIMA Carney - Last Filed: 06/01/22 16:50> Social History Social History: Social History Household Members: None Housing: House Do you presently have visiting nurse or other home services: No Alcohol intake: current Alcohol intake frequency: 3 or more drinks per day Alcohol type: hard liquor Patient Tobacco Use Status: Current everyday Tobacco user Tobacco use type: Cigarette Cigarette Packs Per Day: 1 Cigarettes Per Day: 20.0 e-Cigarette/Vaping Use: Never Used Second Hand Smoke Exposure: No Substance Use Type: Marijuana Advance Directives: Yes Advance Directives on File: Yes Advance Directives Date on File: 03/05/22 service: No Current occupational status: disabled <HIMA Carney - Last Filed: 06/01/22 16:50> Physical Exam ED Vital Signs: Vital Signs - 24 hr 06/01/22 11:10 06/01/22 12:34 06/01/22 14:01 Temperature 97.3 F Pulse Rate 100 74 80 Respiratory Rate 18 14 18 Blood Pressure 109/69 112/64 117/78 Pulse Oximetry 92 92 92 Oxygen Delivery Method Room Air Room Air Room Air BMI result Body Mass Index 21.4 <HIMA Carney - Last Filed: 06/01/22 16:50> Vital Signs - 24 hr 06/01/22 11:10 06/01/22 12:34 06/01/22 14:01 Temperature 97.3 F Pulse Rate 100 74 80 Respiratory Rate 18 14 18 Blood Pressure 109/69 112/64 117/78 Pulse Oximetry 92 92 92 Oxygen Delivery Method Room Air Room Air Room Air BMI result Body Mass Index 21.4 <Hannah Le NP - Last Filed: 06/01/22 18:37> Const General: cooperative, no acute distress, alert and awake <HIMA Carney - Last Filed: 06/01/22 16:50> Nutritional Appearance: well nourished <Anai Quinoneselysia IA - Last Filed: 06/01/22 16:50> Orientation/consciousness: patient oriented x3 <Anai Quinoneselysia IA - Last Filed: 06/01/22 16:50> Limitations: no limitations <Anai Quinoneselysia [facility] Last Filed: 06/01/22 16:50> HENMT Head: Yes normal to inspection and Yes atraumatic <Anaigraciela Quinoneselysia IA - Last Filed: 06/01/22 16:50> Ears: hearing grossly normal bilaterally and external ears normal <Anai Quinoneselysia IA - Last Filed: 06/01/22 16:50> General nose exam: Normal external nose present, no nasal discharge noted and no epistaxis <Anai Kimberly IA - Last Filed: 06/01/22 16:50> Face and sinus: Yes normal facial exam, No abrasion and No laceration <Anaigraciela Quinoneselysia [facility] Last Filed: 06/01/22 16:50> Mouth: Normal oral and palatal mucosa present, no drooling and no muffled voice <Anaigraciela Quinoneselysia IA - Last Filed: 06/01/22 16:50> Eyes General: appearance normal, both eyes and all related structures <Anai Kimberly IA - Last Filed: 06/01/22 16:50> Periorbital: periorbital findings normal <Anai Quinoneselysia IA - Last Filed: 06/01/22 16:50> Eyelids: Yes eyelids normal <Anaigraciela Quinoneselysia IA - Last Filed: 06/01/22 16:50> Conjunctivae: conjunctivae normal <Anai Kimberly IA - Last Filed: 06/01/22 16:50> Pupils: Equal, round and reactive pupils present <Anai Quinoneselysia IA - Last Filed: 06/01/22 16:50> EOM: EOMs intact bilaterally <Anai Kimberly IA - Last Filed: 06/01/22 16:50> Neck Neck: Yes normal visual inspection, Yes full ROM and Yes no lymphadenopathy <Anai Kimberly IA - Last Filed: 06/01/22 16:50> Chest Chest palpation & inspection: normal inspection of the chest <Anai Harris IA - Last Filed: 06/01/22 16:50> Resp Effort & Inspection: normal respiratory effort and able to speak in complete sentences <Anai Harris PA - Last Filed: 06/01/22 16:50> Auscultation: clear to auscultation bilaterally <Anai Harris PA - Last Filed: 06/01/22 16:50> Cardio Rate: regular rate <Anai Harris PA - Last Filed: 06/01/22 16:50> Rhythm: regular rhythm <Anai Harris PA - Last Filed: 06/01/22 16:50> GI Inspection: Yes normal to inspection <Anai Harris PA - Last Filed: 06/01/22 16:50> Palpation (GI): Soft to palpation, not firm, nontender and no guarding <Anai Harris PA - Last Filed: 06/01/22 16:50> Neuro General: patient oriented x3 and moves all extremities <Anai Harris PA - Last Filed: 06/01/22 16:50> Cranial nerves: Yes Equal, round and reactive pupils present <Anai Harris PA - Last Filed: 06/01/22 16:50> Cognition (Neuro): normal cognition <Anai Harris PA - Last Filed: 06/01/22 16:50> Motor exam (neuro): 5/5 motor strength present throughout <Anai Harris PA - Last Filed: 06/01/22 16:50> Sensory Exam: Normal double simultaneous stimulation for sensation <Anai Harris PA - Last Filed: 06/01/22 16:50> Coordination: [id number] test normal <Anai Harris PA - Last Filed: 06/01/22 16:50> Extrem General: Yes normal to inspection, Yes full ROM and Yes capillary refill normal <Anai Harris PA - Last Filed: 06/01/22 16:50> Psych Appearance: grossly normal <Anai Quinoneselysia PA - Last Filed: 06/01/22 16:50> Mental Status: mental status grossly normal <Anai Quinoneselysia PA - Last Filed: 06/01/22 16:50> Affect: normal affect <Anai Quinoneselysia PA - Last Filed: 06/01/22 16:50> Attitude: cooperative <HIMA Carney - Last Filed: 06/01/22 16:50> Thought process: Normal thought process present <HIMA Carney - Last Filed: 06/01/22 16:50> Thought content: Normal thought content present <HIMA Carney - Last Filed: 06/01/22 16:50> Insight: Good insight present (Psych) <HIMA Carney - Last Filed: 06/01/22 16:50> Course Course Course Narrative: 18:36 patient will be discharged to [facility]. <Hannah Le NP - Last Filed: 06/01/22 18:37> Medical Decision Making Medical Decision Making MDM Narrative: Patient is a 61 year old assigned male at with a history of alcohol abuse presenting to the emergency department today requesting detox. Patient's physical exam was unremarkable. Patient's blood work was unremarkable. I explained my physical exam findings as well as all test results to the patient. I answered all questions asked by the patient. Recovery team placed the patient in a local detox. I stressed the importance of the patient taking his medication as prescribed. I stressed the importance of the patient following up with his primary care provider. I stressed the importance of the patient returning to the emergency department immediately if his symptoms were to worsen or if he] were to develop any dizziness, shortness of breath, difficulty breathing, chest pain, blurry vision, loss of vision, nausea, vomiting, abdominal pain, fever, chills, back pain, or any other complaints. Patient verbalized agreement and understanding with this treatment plan and discharge. <HIMA Carney - Last Filed: 06/01/22 16:50> Differential Diagnosis Differential Diagnoses: The differential diagnosis associated with the presentation includes <HIMA Carney - Last Filed: 06/01/22 16:50> alcohol withdrawal <HIMA Carney - Last Filed: 06/01/22 16:50> Lab Data MDM Lab Attestation statement: I reviewed the patient's lab results. <HIMA Carney - Last Filed: 06/01/22 16:50> Result Diagrams: 06/01/22 11:49 06/01/22 11:49 <HIMA Carney - Last Filed: 06/01/22 16:50> Labs: Lab Results 06/01/22 06/01/22 06/01/22 Range/Units 11:38 11:38 11:49 WBC 4.5 L (4.8-10.8) X10*3/uL RBC 4.24 L (4.60-5.80) X10*6/uL Hgb 12.2 L (14.0-18.0) g/dl Hct 37.1 L (42.0-52.0) % MCV 87.5 (80.0-98.0) fL MCH 28.8 (27.0-33.0) pg MCHC 32.9 (31.0-36.0) g/dl RDW 16.7 H (11.0-16.0) % Plt Count 201 (160-400) X10*3/uL MPV 9.4 (9.4-12.4) fL Immature Gran % (Auto) 0.4 (0.0-0.4) % Neut % (Auto) 45.2 (45-73) % Lymph % (Auto) 36.4 (20-40) % [place] % (Auto) 13.3 H (2-11) % Eos % (Auto) 3.1 (0-4) % Baso % (Auto) 1.6 (0-2) % Lymph # (Auto) 1.6 (1.2-4.9) X10*3/uL [place] # (Auto) 0.6 (0.1-1.2) X10*3/uL Eos # (Auto) 0.1 (0.0-0.4) X10*3/uL Baso # (Auto) 0.1 (0.0-0.2) X10*3/uL Abs Immat Gran (auto) 0.02 (0.00-0.03) X10*3/uL Absolute Neuts (auto) 2.0 (2.0-8.3) x10*3/uL Absolute Nucleated RBC 0.000 (0.0-0.012) X10*3/uL Nucleated RBC % (auto) 0.0 (0.0-0.2) /100WBC Sodium (135-145) mmol/L Potassium (3.3-5.1) mmol/L Chloride (96-108) mmol/L Carbon Dioxide (22-29) mmol/L Anion Gap (12-20) BUN (9-16) mg/dL Creatinine (0.5-1.4) mg/dL Estim Creat Clear Calc Estimated GFR Random Glucose (60-115) mg/dL Calcium (8.4-10.2) mg/dL Total Bilirubin (0.0-1.0) mg/dL AST (5-37) U/L ALT (0-40) U/L Alkaline Phosphatase (39-117) U/L Total Protein (6.5-8.0) g/dL Albumin (3.5-5.0) g/dL Urine Color Dark Yellow Urine Appearance Clear Urine pH 6.0 (5.0-9.0) Ur Specific [place] 1.015 (1.005-1.025) Urine Protein 30 (1+) H (Neg-Trace) mg/dL Urine Glucose (UA) Negative (Negative) mg/dL Urine Ketones Negative (Negative) mg/dL Urine Blood Negative (Negative) Urine Nitrite Negative (Negative) Ur Leukocyte Esterase Trace H (Negative) Urine RBC 0-2 (0-2) /HPF Urine WBC 0-5 (0-5) /HPF Ur Squamous Epith Cells 0-2 (0-2) /HPF Calcium Oxalate Crystal Present Urine Bacteria None Seen (None Seen) Hyaline Casts 3-5 (0-2) /LPF Salicylates (15-30) mg/dL Urine Opiates Screen Not Detected (Not Detect) Urine Fentanyl Screen Not Detected (Not Detect) Acetaminophen (<30) mcg/mL Ur Barbiturates Screen POSITIVE H (Not Detect) Ur Phencyclidine Scrn Not Detected (Not Detect) Ur Amphetamines Screen Not Detected (Not Detect) U Benzodiazepines Scrn POSITIVE H (Not Detect) Urine Cocaine Screen Not Detected (Not Detect) U Marijuana (THC) Screen Not Detected (Not Detect) Ethyl Alcohol mg/dL COVID-19 (NELY) (Negative) COVID-19 Clin Com 06/01/22 06/01/22 Range/Units 11:49 11:55 WBC (4.8-10.8) X10*3/uL RBC (4.60-5.80) X10*6/uL Hgb (14.0-18.0) g/dl Hct (42.0-52.0) % MCV (80.0-98.0) fL MCH (27.0-33.0) pg MCHC (31.0-36.0) g/dl RDW (11.0-16.0) % Plt Count (160-400) X10*3/uL MPV (9.4-12.4) fL Immature Gran % (Auto) (0.0-0.4) % Neut % (Auto) (45-73) % Lymph % (Auto) (20-40) % [place] % (Auto) (2-11) % Eos % (Auto) (0-4) % Baso % (Auto) (0-2) % Lymph # (Auto) (1.2-4.9) X10*3/uL [place] # (Auto) (0.1-1.2) X10*3/uL Eos # (Auto) (0.0-0.4) X10*3/uL Baso # (Auto) (0.0-0.2) X10*3/uL Abs Immat Gran (auto) (0.00-0.03) X10*3/uL Absolute Neuts (auto) (2.0-8.3) x10*3/uL Absolute Nucleated RBC (0.0-0.012) X10*3/uL Nucleated RBC % (auto) (0.0-0.2) /100WBC Sodium 140 (135-145) mmol/L Potassium 3.8 (3.3-5.1) mmol/L Chloride 102 (96-108) mmol/L Carbon Dioxide 28 (22-29) mmol/L Anion Gap 14 (12-20) BUN 7 L (9-16) mg/dL Creatinine 0.80 (0.5-1.4) mg/dL Estim Creat Clear Calc 90.2 Estimated GFR > 60 Random Glucose 82 (60-115) mg/dL Calcium 9.0 (8.4-10.2) mg/dL Total Bilirubin 0.5 (0.0-1.0) mg/dL AST 92 H (5-37) U/L ALT 59 H (0-40) U/L Alkaline Phosphatase 133 H (39-117) U/L Total Protein 7.3 (6.5-8.0) g/dL Albumin 4.1 (3.5-5.0) g/dL Urine Color Urine Appearance Urine pH (5.0-9.0) Ur Specific [place] (1.005-1.025) Urine Protein (Neg-Trace) mg/dL Urine Glucose (UA) (Negative) mg/dL Urine Ketones (Negative) mg/dL Urine Blood (Negative) Urine Nitrite (Negative) Ur Leukocyte Esterase (Negative) Urine RBC (0-2) /HPF Urine WBC (0-5) /HPF Ur Squamous Epith Cells (0-2) /HPF Calcium Oxalate Crystal Urine Bacteria (None Seen) Hyaline Casts (0-2) /LPF Salicylates < 5.0 L (15-30) mg/dL Urine Opiates Screen (Not Detect) Urine Fentanyl Screen (Not Detect) Acetaminophen < 17 (<30) mcg/mL Ur Barbiturates Screen (Not Detect) Ur Phencyclidine Scrn (Not Detect) Ur Amphetamines Screen (Not Detect) U Benzodiazepines Scrn (Not Detect) Urine Cocaine Screen (Not Detect) U Marijuana (THC) Screen (Not Detect) Ethyl Alcohol 273 mg/dL COVID-19 (NELY) Negative (Negative) COVID-19 Clin Com See Note <HIMA Carney - Last Filed: 06/01/22 16:50> Lab Results 06/01/22 06/01/22 06/01/22 Range/Units 11:38 11:38 11:49 WBC 4.5 L (4.8-10.8) X10*3/uL RBC 4.24 L (4.60-5.80) X10*6/uL Hgb 12.2 L (14.0-18.0) g/dl Hct 37.1 L (42.0-52.0) % MCV 87.5 (80.0-98.0) fL MCH 28.8 (27.0-33.0) pg MCHC 32.9 (31.0-36.0) g/dl RDW 16.7 H (11.0-16.0) % Plt Count 201 (160-400) X10*3/uL MPV 9.4 (9.4-12.4) fL Immature Gran % (Auto) 0.4 (0.0-0.4) % Neut % (Auto) 45.2 (45-73) % Lymph % (Auto) 36.4 (20-40) % [place] % (Auto) 13.3 H (2-11) % Eos % (Auto) 3.1 (0-4) % Baso % (Auto) 1.6 (0-2) % Lymph # (Auto) 1.6 (1.2-4.9) X10*3/uL [place] # (Auto) 0.6 (0.1-1.2) X10*3/uL Eos # (Auto) 0.1 (0.0-0.4) X10*3/uL Baso # (Auto) 0.1 (0.0-0.2) X10*3/uL Abs Immat Gran (auto) 0.02 (0.00-0.03) X10*3/uL Absolute Neuts (auto) 2.0 (2.0-8.3) x10*3/uL Absolute Nucleated RBC 0.000 (0.0-0.012) X10*3/uL Nucleated RBC % (auto) 0.0 (0.0-0.2) /100WBC Sodium (135-145) mmol/L Potassium (3.3-5.1) mmol/L Chloride (96-108) mmol/L Carbon Dioxide (22-29) mmol/L Anion Gap (12-20) BUN (9-16) mg/dL Creatinine (0.5-1.4) mg/dL Estim Creat Clear Calc Estimated GFR Random Glucose (60-115) mg/dL Calcium (8.4-10.2) mg/dL Total Bilirubin (0.0-1.0) mg/dL AST (5-37) U/L ALT (0-40) U/L Alkaline Phosphatase (39-117) U/L Total Protein (6.5-8.0) g/dL Albumin (3.5-5.0) g/dL Urine Color Dark Yellow Urine Appearance Clear Urine pH 6.0 (5.0-9.0) Ur Specific [place] 1.015 (1.005-1.025) Urine Protein 30 (1+) H (Neg-Trace) mg/dL Urine Glucose (UA) Negative (Negative) mg/dL Urine Ketones Negative (Negative) mg/dL Urine Blood Negative (Negative) Urine Nitrite Negative (Negative) Ur Leukocyte Esterase Trace H (Negative) Urine RBC 0-2 (0-2) /HPF Urine WBC 0-5 (0-5) /HPF Ur Squamous Epith Cells 0-2 (0-2) /HPF Calcium Oxalate Crystal Present Urine Bacteria None Seen (None Seen) Hyaline Casts 3-5 (0-2) /LPF Salicylates (15-30) mg/dL Urine Opiates Screen Not Detected (Not Detect) Urine Fentanyl Screen Not Detected (Not Detect) Acetaminophen (<30) mcg/mL Ur Barbiturates Screen POSITIVE H (Not Detect) Ur Phencyclidine Scrn Not Detected (Not Detect) Ur Amphetamines Screen Not Detected (Not Detect) U Benzodiazepines Scrn POSITIVE H (Not Detect) Urine Cocaine Screen Not Detected (Not Detect) U Marijuana (THC) Screen Not Detected (Not Detect) Ethyl Alcohol mg/dL COVID-19 (NELY) (Negative) COVID-19 Clin Com 06/01/22 06/01/22 Range/Units 11:49 11:55 WBC (4.8-10.8) X10*3/uL RBC (4.60-5.80) X10*6/uL Hgb (14.0-18.0) g/dl Hct (42.0-52.0) % MCV (80.0-98.0) fL MCH (27.0-33.0) pg MCHC (31.0-36.0) g/dl RDW (11.0-16.0) % Plt Count (160-400) X10*3/uL MPV (9.4-12.4) fL Immature Gran % (Auto) (0.0-0.4) % Neut % (Auto) (45-73) % Lymph % (Auto) (20-40) % [place] % (Auto) (2-11) % Eos % (Auto) (0-4) % Baso % (Auto) (0-2) % Lymph # (Auto) (1.2-4.9) X10*3/uL [place] # (Auto) (0.1-1.2) X10*3/uL Eos # (Auto) (0.0-0.4) X10*3/uL Baso # (Auto) (0.0-0.2) X10*3/uL Abs Immat Gran (auto) (0.00-0.03) X10*3/uL Absolute Neuts (auto) (2.0-8.3) x10*3/uL Absolute Nucleated RBC (0.0-0.012) X10*3/uL Nucleated RBC % (auto) (0.0-0.2) /100WBC Sodium 140 (135-145) mmol/L Potassium 3.8 (3.3-5.1) mmol/L Chloride 102 (96-108) mmol/L Carbon Dioxide 28 (22-29) mmol/L Anion Gap 14 (12-20) BUN 7 L (9-16) mg/dL Creatinine 0.80 (0.5-1.4) mg/dL Estim Creat Clear Calc 90.2 Estimated GFR > 60 Random Glucose 82 (60-115) mg/dL Calcium 9.0 (8.4-10.2) mg/dL Total Bilirubin 0.5 (0.0-1.0) mg/dL AST 92 H (5-37) U/L ALT 59 H (0-40) U/L Alkaline Phosphatase 133 H (39-117) U/L Total Protein 7.3 (6.5-8.0) g/dL Albumin 4.1 (3.5-5.0) g/dL Urine Color Urine Appearance Urine pH (5.0-9.0) Ur Specific [place] (1.005-1.025) Urine Protein (Neg-Trace) mg/dL Urine Glucose (UA) (Negative) mg/dL Urine Ketones (Negative) mg/dL Urine Blood (Negative) Urine Nitrite (Negative) Ur Leukocyte Esterase (Negative) Urine RBC (0-2) /HPF Urine WBC (0-5) /HPF Ur Squamous Epith Cells (0-2) /HPF Calcium Oxalate Crystal Urine Bacteria (None Seen) Hyaline Casts (0-2) /LPF Salicylates < 5.0 L (15-30) mg/dL Urine Opiates Screen (Not Detect) Urine Fentanyl Screen (Not Detect) Acetaminophen < 17 (<30) mcg/mL Ur Barbiturates Screen (Not Detect) Ur Phencyclidine Scrn (Not Detect) Ur Amphetamines Screen (Not Detect) U Benzodiazepines Scrn (Not Detect) Urine Cocaine Screen (Not Detect) U Marijuana (THC) Screen (Not Detect) Ethyl Alcohol 273 mg/dL COVID-19 (NELY) Negative (Negative) COVID-19 Clin Com See Note <Hannah Le NP - Last Filed: 06/01/22 18:37> Discharge Plan Discharge Clinical Impression: Alcohol abuse <HIMA Carney - Last Filed: 06/01/22 16:50> Patient Disposition: Xfer Inpatient Rehab Fac <HIMA Carney - Last Filed: 06/01/22 16:50> Transfer Details: [facility] facility <HIMA Carney - Last Filed: 06/01/22 16:50> [facility] facility <Hannah Le NP - Last Filed: 06/01/22 18:37> Instructions: Abuse of Alcohol (DC) <HIMA Carney - Last Filed: 06/01/22 16:50> Additional Instructions: Follow up with your primary care provider. Return to the emergency department immediately if your symptoms worsen or if you develop any dizziness, shortness of breath, difficulty breathing, chest pain, blurry vision, loss of vision, nausea, vomiting, abdominal pain, fever, chills, back pain, or any other complaints. Thank you for choosing detox. Thank you for choosing this emergency department for evaluation. Please follow-up with primary care physician as needed. Return to the emergency department for any new, concerning, or worsening symptoms. <HIMA Carney - Last Filed: 06/01/22 16:50> Prescriptions: New Eliquis 5 mg tablet 5 mg PO BID 30 Days Qty: 60 0RF Combivent Respimat 20-100 mcg/actuation mist 1 puff inhalation Q6H Qty: 4 0RF albuterol sulfate 90 mcg/actuation HFA aerosol inhaler 1 inh inhalation QID PRN (Reason: shortness of breath or wheezing) Qty: 8.5 0RF No Action albuterol sulfate [ProAir HFA] 90 mcg/actuation HFA aerosol inhaler 2 puff inhalation Q4-6H PRN (Reason: Wheezing) Qty: 8.5 0RF Eliquis 5 mg tablet 5 mg PO BID Qty: 30 0RF docusate sodium [DOK] 100 mg tablet 100 mg PO BID PRN (Reason: Constipation) Combivent Respimat 20-100 mcg/actuation mist 1 puff inhalation QID sertraline 25 mg tablet 1 tab PO DAILY <HIMA Carney - Last Filed: 06/01/22 16:50> Referrals: [facility] Family Medicine [Provider Group] (Call to establish and follow up with a primary care provider. If you already have a primary care provider, please follow up with them.) [facility] Primary Care, Mae [Provider Group] (Call to establish and follow up with a primary care provider. If you already have a primary care provider, please follow up with them.) [facility],[place] [Provider Group] (Call to establish and follow up with a primary care provider. If you already have a primary care provider, please follow up with them.) <HIMA Carney - Last Filed: 06/01/22 16:50> Print Language: Nigerian <HIMA Carney - Last Filed: 06/01/22 16:50>
[2022-06-01 11:55] LABS: MANUAL DIFF FLAG NO
[2022-06-01 11:57] LABS: Appearance Urine Clear; Color Urine Dark Yellow; Glucose Urine UA Negative (Negative); Leukocyte Esterase Urine Trace (Negative); Nitrite Urine Negative (Negative); Specific Gravity - Urine 1.015 (1.005-1.025); UMIC TRIGGER UA YES; Urine Blood Negative (Negative); Urine Ketones Negative (Negative); Urine Protein 30 (1+) mg/dL (Neg-Trace)
[2022-06-01 12:04] LABS: Basophils Absolute Auto 0.1 X10*3/uL (0.0-0.2); Basophils Percent Auto 1.6 % (0-2); Eosinophils Absolute Auto 0.1 X10*3/uL (0.0-0.4); Eosinophils Percent Auto 3.1 % (0-4); Hematocrit 37.1 % (42.0-52.0); Hemoglobin 12.2 g/dl (14.0-18.0); Imm Gran Abs Auto 0.02 X10*3/uL (0.00-0.03); Imm Gran Pct Auto 0.4 % (0.0-0.4); Lymphocytes Absolute Auto 1.6 X10*3/uL (1.2-4.9); Lymphocytes Percent Auto 36.4 % (20-40); Mean Corpuscular HGB Conc 32.9 g/dl (31.0-36.0); Mean Corpuscular Hemoglobin 28.8 pg (27.0-33.0); Mean Corpuscular Volume 87.5 fL (80.0-98.0); Mean Platelet Volume 9.4 fL (9.4-12.4); Monocytes Absolute Auto 0.6 X10*3/uL (0.1-1.2); Monocytes Percent Auto 13.3 % (2-11); Neutrophils Percent Auto 45.2 % (45-73); Platelet Count 201 X10*3/uL (160-400); Red Blood Count 4.24 X10*6/uL (4.60-5.80); Red Cell Distribution Width 16.7 % (11.0-16.0); White Blood Count 4.5 X10*3/uL (4.8-10.8)
[2022-06-01 12:08] LABS: Amphetamine Screen Urine Not Detected (Not Detect); Barbiturates, Urine POSITIVE (Not Detect); Benzodiazepines Screen Urine POSITIVE (Not Detect); Cannabinoid Screen Urine Not Detected (Not Detect); Cocaine Screen Urine Not Detected (Not Detect); Fentanyl, urine Not Detected (Not Detect); Opiate Screen Urine Not Detected (Not Detect); Phencyclidine Screen Urine Not Detected (Not Detect)
[2022-06-01 12:12] LABS: Bacteria Urine None Seen (None Seen); Calcium Oxalate Crystals Urine Present; RBC Urine 0-2 /HPF (0-2); Squamous Epithelial Cell Urine 0-2 /HPF (0-2); WBC Urine 0-5 /HPF (0-5)
[2022-06-01 12:24] LABS: COVID-19 Test Negative (Negative); IDNOW Serial# BCCEAD1C
[2022-06-01 12:29] LABS: Acetaminophen LAB < 17 mcg/mL (<30); Alanine Aminotransferase 59 U/L (0-40); Albumin Level 4.1 g/dL (3.5-5.0); Alkaline Phosphatase 133 U/L (39-117); Anion Gap 14 (12-20); Aspartate Amino Transferase 92 U/L (5-37); Bilirubin Total 0.5 mg/dL (0.0-1.0); Blood Urea Nitrogen 7 mg/dL (9-16); Carbon Dioxide 28 mmol/L (22-29); Chloride 102 mmol/L (96-108); Creatinine Clr Calc Pharmacy 90.2; Estimated Glomerular Filt Rate > 60; Ethanol 273 mg/dL; Glucose Random 82 mg/dL (60-115); Potassium 3.8 mmol/L (3.3-5.1); Salicylate < 5.0 mg/dL (15-30); Sodium 140 mmol/L (135-145); Total Protein 7.3 g/dL (6.5-8.0)
[2022-06-01 12:34] VITALS: BP 112/64; PULSE 74; RESP 14; O2SAT 92
[2022-06-01 14:01] VITALS: BP 117/78; PULSE 80; RESP 18; O2SAT 92
--- NOTE | 2022-06-01 14:03 | MHC.RECOVSUP ---
Met with pt in ED18H for potential ATS bed search and recovery resources provided. Pt shares that he has been drinking and never actually stopped. Stating he would like to go to ATS and is willing to go to [facility] or [facility]. Referral packet has been sent to [facility].
--- NOTE | 2022-06-01 16:24 | MHC.RECOVSUP ---
Pt completing phone screen with [facility] at 4:20pm.
--- NOTE | 2022-06-01 16:28 | MHC.RECOVSUP ---
Pt accepted to [facility], must be transported by 9pm.
--- NOTE | 2022-06-01 16:42 | PC.NURSE ---
resumed care of this patient at 1500, pt resting comfortably in bed at that time. Safety measures in place. Pt got up an ambulated to [facility] steady w/ cane.
--- NOTE | 2022-06-01 18:22 | PC.NURSE ---
waiting for recovery team at this time to book a lyft for patient to be D/C from ED. Pt in agreement with plan, dinner ordered for patient
--- NOTE | 2022-06-01 18:45 | MHC.RECOVSUP ---
? Reason for consult:Recovery Support o Current location: 12H? o Identified substance use concern: AUD? - Withdrawal - Seeking ATS (detox) - Support ? ?Intervention:Harm reduction strategies o ATS bed search started/completed/in process o Community resources provided o Harm reduction discussion ? Additional information:?[facility] [employer] was able to connect with pt and review harm reduction strategies. K[facility]r also ordered the Lyft to [facility] and walked pt out to his ride.
== END 2022-06-01 18:43 ==
PROVIDERS: Physician Assistant Medical; Emergency Provider Emergency Medicine
DX: F10.19 Alcohol abuse with unspecified alcohol-induced disorder (principal); Y90.8 Blood alcohol level of 240 mg/100 ml or more; Z20.822 Contact with and (suspected) exposure to COVID-19; Z20.828 Contact with and (suspected) exposure to other viral communicable diseases; Z79.899 Other long term (current) drug therapy; F17.210 Nicotine dependence, cigarettes, uncomplicated; Z71.6 Tobacco abuse counseling
CPT/HCPCS: 36415; 80053; 80143; 80179; 80307; 81001; 82077; 85025; 87635; 99284

== ENCOUNTER 2022-06-03 05:25 | Emergency (ER) | payer OTHER, SELFPAY ==
[2022-06-03 05:28] VITALS: BP 105/62; BP 138/90; PULSE 77; PULSE 99; RESP 17; TEMP 36.2; O2SAT 99; BMI 21.4
--- NOTE | 2022-06-03 05:41 | ED.ALCOHOL ---
HPI - Alcohol General Chief Complaint: ETOH/Substance Use Stated Complaint: etoh Time Seen by Provider: 06/03/22 05:40 Source: patient Mode of arrival: EMS Limitations: no limitations History of Present Illness HPI narrative: Patient alcoholic with frequent ED visits for detox supposed to go to [facility] yesterday did not go instead of going there started drinking alcohol now asking for to go to detox again patient been here multiple times for same and always does the same thing Related Data Home Medications Medication Instructions Recorded Confirmed docusate sodium 100 mg tablet (DOK) 100 mg PO BID PRN Constipation 02/06/22 05/29/22 ipratropium 20 mcg-albuterol 100 1 puff inhalation QID 02/06/22 05/29/22 mcg/actuation mist for inhalation (Combivent Respimat) sertraline 25 mg tablet 1 tab PO DAILY 05/18/22 05/29/22 Previous Rx's Medication Instructions Recorded albuterol sulfate 90 mcg/actuation 2 puff inhalation Q4-6H PRN 12/04/21 aerosol inhaler (ProAir HFA) Wheezing #8.5 grams apixaban 5 mg tablet (Eliquis) 5 mg PO BID #30 tabs 03/15/22 albuterol sulfate 90 mcg/actuation 1 inh inhalation QID PRN shortness 06/01/22 aerosol inhaler of breath or wheezing #8.5 grams apixaban 5 mg tablet (Eliquis) 5 mg PO BID 30 days #60 tabs 06/01/22 ipratropium 20 mcg-albuterol 100 1 puff inhalation Q6H #4 grams 06/01/22 mcg/actuation mist for inhalation (Combivent Respimat) Allergies Allergy/AdvReac Type Severity Reaction Status Date / Time Peanut Butter Allergy Facial Verified 06/01/22 11:07 Swelling raspberry Allergy Facial Verified 06/01/22 11:07 Swelling Review of Systems Review of Systems: Yes all other systems are reviewed and are negative [facility] Past Medical History Medical History Acute and chronic respiratory failure with hypoxia Alcohol abuse Alcohol use disorder, severe, dependence Asthma COPD (chronic obstructive pulmonary disease) COPD (chronic obstructive pulmonary disease) DVT (deep venous thrombosis) Neuropathy Subdural hematoma Tobacco abuse Social History Social History Household Members: None Housing: House Do you presently have visiting nurse or other home services: No Alcohol intake: current Alcohol intake frequency: 3 or more drinks per day Alcohol type: hard liquor Patient Tobacco Use Status: Current everyday Tobacco user Tobacco use type: Cigarette Cigarette Packs Per Day: 1 Cigarettes Per Day: 20.0 e-Cigarette/Vaping Use: Never Used Second Hand Smoke Exposure: No Substance Use Type: Marijuana Advance Directives: Yes Advance Directives on File: Yes Advance Directives Date on File: 03/05/22 service: No Current occupational status: disabled Physical Exam ED Vital Signs: Vital Signs - 24 hr 06/03/22 05:28 Temperature 97.2 F Pulse Rate 99 Respiratory Rate 17 Blood Pressure 105/62 Pulse Oximetry 99 Oxygen Delivery Method Room Air BMI result Body Mass Index 21.4 Appearance: Alert. Oriented X3. No acute distress etoh + . Eyes: PERRLA, No Nystagmus ENT: Pharynx normal. Oral Mucosa moist Neck: Normal inspection. Neck supple. CVS: Normal heart rate and rhythm. Pulses normal. Respiratory: No respiratory distress. Equal air entry bilateral, no wheezing/rales/rhonchi Abdomen: Soft and nontender. Bowel sounds are present, no mass palpable, no CVA tenderness Skin: Skin warm and dry. Normal skin color. Normal skin turgor. Extremities: No lower extremity edema. No calf tenderness Neuro: Oriented X 3. No motor deficit. No sensory deficit.No cerebellar signs , cranial nerves II-XII intact patient walking in steady gait Medical Decision Making Medical Decision Making MDM Narrative: Patient alcoholic with frequent ED visits requesting to go to detox but never goes to detox walking steady gait advised to follow up as a outpatient for detox Discharge Plan Discharge Clinical Impression: Alcohol abuse Patient Disposition: Home, Self-Care Instructions: Abuse of Alcohol (ED) Additional Instructions: Follow-up with detox as provided with instructions Prescriptions: No Action albuterol sulfate [ProAir HFA] 90 mcg/actuation HFA aerosol inhaler 2 puff inhalation Q4-6H PRN (Reason: Wheezing) Qty: 8.5 0RF Eliquis 5 mg tablet 5 mg PO BID Qty: 30 0RF docusate sodium [DOK] 100 mg tablet 100 mg PO BID PRN (Reason: Constipation) Combivent Respimat 20-100 mcg/actuation mist 1 puff inhalation QID sertraline 25 mg tablet 1 tab PO DAILY Eliquis 5 mg tablet 5 mg PO BID 30 Days Qty: 60 0RF Combivent Respimat 20-100 mcg/actuation mist 1 puff inhalation Q6H Qty: 4 0RF albuterol sulfate 90 mcg/actuation HFA aerosol inhaler 1 inh inhalation QID PRN (Reason: shortness of breath or wheezing) Qty: 8.5 0RF Interventions: ED Discharge Assessment Last Done: 06/03/22 05:46
--- NOTE | 2022-06-03 05:45 | PC.NURSE ---
pt a&o, denies any sob or chest pain. Pt has a steady gait, pt no longer wanting detox.
== END 2022-06-03 05:47 | disposition home or self-care (01) ==
PROVIDERS: Emergency Provider Internal Medicine
DX: F10.10 Alcohol abuse, uncomplicated (principal); Y90.9 Presence of alcohol in blood, level not specified
CPT/HCPCS: 99282

== ENCOUNTER 2022-06-03 12:17 | Emergency (ER) | payer OTHER, SELFPAY ==
[2022-06-03 12:35] VITALS: BP 99/57; PULSE 78; RESP 16; TEMP 36.8; O2SAT 96; BMI 27.3
--- NOTE | 2022-06-03 12:46 | ED_ITS ---
HPI - Alcohol General Chief Complaint: ETOH/Substance Use Stated Complaint: ETOH, seeking detox per EMS Time Seen by Provider: 06/03/22 12:36 Source: patient Mode of arrival: EMS Limitations: no limitations History of Present Illness HPI narrative: 61-year-old male with history of alcohol use disorder who presents emergency department for evaluation of alcohol intoxication, continued alcohol use and requesting detox. Patient is seen frequently here in the emergency department. The patient was seen here yesterday for similar complaints. In reviewing the record the patient was medically cleared and then sent to [facility] for detox. The patient told me that he thought he was post to go to [facility] and the subway train driver took him to [facility]. He thought that he was at the wrong place and did not get in to the detox program. Patient states that he is continuing to drink alcohol. He states that he drink at least 1 pt of [place] today. He states that he fell several days ago is having pain in his right shoulder and left knee. He denied fever, chills, sore throat, chest pain, nausea vomiting diarrhea, black stools or bloody stools. He states that he always has a cough but this is secondary to his COPD. The patient states he lives in a home by himself in [place]. He came to the emergency department by ambulance Related Data Home Medications Medication Instructions Recorded Confirmed docusate sodium 100 mg tablet (DOK) 100 mg PO BID PRN Constipation 02/06/22 05/29/22 ipratropium 20 mcg-albuterol 100 1 puff inhalation QID 02/06/22 05/29/22 mcg/actuation mist for inhalation (Combivent Respimat) sertraline 25 mg tablet 1 tab PO DAILY 05/18/22 05/29/22 Previous Rx's Medication Instructions Recorded albuterol sulfate 90 mcg/actuation 2 puff inhalation Q4-6H PRN 12/04/21 aerosol inhaler (ProAir HFA) Wheezing #8.5 grams apixaban 5 mg tablet (Eliquis) 5 mg PO BID #30 tabs 03/15/22 albuterol sulfate 90 mcg/actuation 1 inh inhalation QID PRN shortness 06/01/22 aerosol inhaler of breath or wheezing #8.5 grams apixaban 5 mg tablet (Eliquis) 5 mg PO BID 30 days #60 tabs 06/01/22 ipratropium 20 mcg-albuterol 100 1 puff inhalation Q6H #4 grams 06/01/22 mcg/actuation mist for inhalation (Combivent Respimat) Allergies Allergy/AdvReac Type Severity Reaction Status Date / Time Peanut Butter Allergy Facial Verified 06/01/22 11:07 Swelling raspberry Allergy Facial Verified 06/01/22 11:07 Swelling Review of Systems Review of Systems: Yes all other systems are reviewed and are negative [facility] Past Medical History [facility] Narrative: Social history: Patient lives in a home in [place]. He smokes 1 pack of cigarettes per day for 40 years. He drinks alcohol daily. He states he occasionally smokes marijuana. Medical History Acute and chronic respiratory failure with hypoxia Alcohol abuse Alcohol use disorder, severe, dependence Asthma COPD (chronic obstructive pulmonary disease) COPD (chronic obstructive pulmonary disease) DVT (deep venous thrombosis) Neuropathy Subdural hematoma Tobacco abuse Social History Social History Household Members: None Housing: House Do you presently have visiting nurse or other home services: No Alcohol intake: current Alcohol intake frequency: 3 or more drinks per day Alcohol type: hard liquor Patient Tobacco Use Status: Current everyday Tobacco user Tobacco use type: Cigarette Cigarette Packs Per Day: 1 Cigarettes Per Day: 20.0 e-Cigarette/Vaping Use: Never Used Second Hand Smoke Exposure: No Substance Use Type: Marijuana Advance Directives: Yes Advance Directives on File: Yes Advance Directives Date on File: 03/05/22 service: No Current occupational status: disabled Physical Exam ED Vital Signs: Vital Signs - 24 hr 06/03/22 12:35 Temperature 98.3 F Pulse Rate 78 Respiratory Rate 16 Blood Pressure 99/57 L Pulse Oximetry 96 Oxygen Delivery Method Room Air BMI result Body Mass Index 27.3 Vital signs were normal. Const Other: Patient is awake, alert, he answers questions appropriately, does not appear to be in distress. He is disheveled, fully dressed HENNC Head: Yes normal to inspection, Yes normocephalic and Yes atraumatic Ears: external ears normal General nose exam: Normal external nose present Face and sinus: Yes normal facial exam Mouth: Normal oral and palatal mucosa present Throat: Yes posterior oropharynx normal Eyes General: appearance normal, both eyes and all related structures Pupils: Equal, round and reactive pupils present Neck Neck: Yes normal visual inspection, Yes no lymphadenopathy, Yes trachea midline and Yes supple Chest Chest palpation & inspection: normal inspection of the chest and normal palpation of entire chest wall Resp Effort & Inspection: normal respiratory effort and able to speak in complete sentences Auscultation: clear to auscultation bilaterally Cardio Rate: regular rate Rhythm: regular rhythm Heart sounds: S1 normal heart sound present, S2 normal heart sound present and no murmurs GI Inspection: Yes normal to inspection Palpation (GI): Soft to palpation, nontender and no guarding Auscultation: normal bowel sounds General: Yes no CVA tenderness Back/Spine/Pelvis Back: no CVA tenderness Skin General skin exam: no rashes or lesions noted Neuro Cranial nerves: Yes CN's II-XII intact bilaterally and Yes Equal, round and reactive pupils present Cognition (Neuro): normal cognition Motor exam (neuro): 5/5 motor strength present throughout Extrem Other: Patient has no significant tenderness with palpation of his extremities, has full range of motion with normal strength Psych Appearance: grossly normal Speech and movement: Normal speech and movement present Affect: normal affect Attitude: cooperative Medical Decision Making Medical Decision Making MDM Narrative: 61-year-old male well-known to the emergency department and is seen here frequently for alcohol use disorder, acute alcohol intoxication and requesting detox. Patient was seen yesterday, evaluated and sent to [facility] for detox, unclear why he did not go to the program. Patient states that he has been drinking [place] today and is requesting evaluation for detox again. Patient's vital signs were normal. Patient's physical examination was unremarkable. I will order laboratory evaluation COVID test on the patient. I will contact our recovery team. 1309: The patient told me that he no longer wants to wait. The patient is re questing to leave. The patient is able to walk without any difficulty, he may be intoxicated but he is capable of understanding the risks and benefits of leaving at this time. The patient will be discharged to home. He states that he will call a cab from the [employer]. Differential Diagnosis Differential diagnosis includes was not limited to acute alcohol intoxication, electrolyte abnormality, anemia Discharge Plan Discharge Clinical Impression: Alcohol abuse Patient Disposition: Home, Self-Care Instructions: Abuse of Alcohol (ED) Additional Instructions: You came here voluntarily to get into a detox program At this time, you want to leave and I think it is okay for you to go home however you should get some help with your alcohol use disorder. Continue taking medications as prescribed by your providers. Follow-up with your doctor in 2 days. Please return to the emergency department if your symptoms get worse or if you develop any symptoms that are concerning to you. Prescriptions: No Action albuterol sulfate [ProAir HFA] 90 mcg/actuation HFA aerosol inhaler 2 puff inhalation Q4-6H PRN (Reason: Wheezing) Qty: 8.5 0RF Eliquis 5 mg tablet 5 mg PO BID Qty: 30 0RF docusate sodium [DOK] 100 mg tablet 100 mg PO BID PRN (Reason: Constipation) Combivent Respimat 20-100 mcg/actuation mist 1 puff inhalation QID sertraline 25 mg tablet 1 tab PO DAILY Eliquis 5 mg tablet 5 mg PO BID 30 Days Qty: 60 0RF Combivent Respimat 20-100 mcg/actuation mist 1 puff inhalation Q6H Qty: 4 0RF albuterol sulfate 90 mcg/actuation HFA aerosol inhaler 1 inh inhalation QID PRN (Reason: shortness of breath or wheezing) Qty: 8.5 0RF
--- NOTE | 2022-06-03 13:25 | MHC.RECOVSUP ---
met with pt in ED6H. Pt reports never making it to [facility] and that he does not want to be here. Pt is being dc and T/W provided pt with resources to contact an ATS facility from home.
== END 2022-06-03 13:15 | disposition home or self-care (01) ==
PROVIDERS: Emergency Provider Emergency Medicine Emergency Medical Services; PCP Internal Medicine
DX: F10.10 Alcohol abuse, uncomplicated (principal); Z79.899 Other long term (current) drug therapy
CPT/HCPCS: 99282; 99283

== ENCOUNTER 2022-06-04 09:05 | Emergency (ER) | payer OTHER, SELFPAY ==
[2022-06-04 09:12] VITALS: BP 137/90; PULSE 78; O2SAT 97
--- NOTE | 2022-06-04 09:13 | ED.ALCOHOL ---
HPI - Alcohol General Chief Complaint: ETOH/Substance Use Stated Complaint: ETOH, SEEKING DETOX Time Seen by Provider: 06/04/22 09:12 Source: patient Mode of arrival: EMS Limitations: no limitations History of Present Illness HPI narrative: This is 61 years old man presented to the emergency department complaining of alcohol abuse and he is requesting detox. Patient is well known to the staff here. Denies any chest pain shortness of breath MD complaint: alcohol dependence Last drink: Just prior to admission Chronic alcohol use: Yes Previous visits for alcohol intoxication: Yes Recent trauma: No Related Data Home Medications Medication Instructions Recorded Confirmed docusate sodium 100 mg tablet (DOK) 100 mg PO BID PRN Constipation 02/06/22 05/29/22 ipratropium 20 mcg-albuterol 100 1 puff inhalation QID 02/06/22 05/29/22 mcg/actuation mist for inhalation (Combivent Respimat) sertraline 25 mg tablet 1 tab PO DAILY 05/18/22 05/29/22 Previous Rx's Medication Instructions Recorded albuterol sulfate 90 mcg/actuation 2 puff inhalation Q4-6H PRN 12/04/21 aerosol inhaler (ProAir HFA) Wheezing #8.5 grams apixaban 5 mg tablet (Eliquis) 5 mg PO BID #30 tabs 03/15/22 albuterol sulfate 90 mcg/actuation 1 inh inhalation QID PRN shortness 06/01/22 aerosol inhaler of breath or wheezing #8.5 grams apixaban 5 mg tablet (Eliquis) 5 mg PO BID 30 days #60 tabs 06/01/22 ipratropium 20 mcg-albuterol 100 1 puff inhalation Q6H #4 grams 06/01/22 mcg/actuation mist for inhalation (Combivent Respimat) Allergies Allergy/AdvReac Type Severity Reaction Status Date / Time Peanut Butter Allergy Facial Verified 06/01/22 11:07 Swelling raspberry Allergy Facial Verified 06/01/22 11:07 Swelling Review of Systems Constitutional: Constitutional: Reports no additional constitutional complaints ENT: Reports system reviewed and no additional complaints, except as documented Cardiovascular: Cardiovascular: Reports no additional cardiovascular complaints Psychiatric: Psychiatric: Reports no additional psychiatric complaints Endocrine: Endocrine: Reports no additional endocrine complaints PMFSH Past Medical History [facility] Narrative: Alcohol abuse, COPD, neuropathy Medical History Acute and chronic respiratory failure with hypoxia Alcohol abuse Alcohol use disorder, severe, dependence Asthma COPD (chronic obstructive pulmonary disease) COPD (chronic obstructive pulmonary disease) DVT (deep venous thrombosis) Neuropathy Subdural hematoma Tobacco abuse Social History Social History Household Members: None Housing: House Do you presently have visiting nurse or other home services: No Alcohol intake: current Alcohol intake frequency: 3 or more drinks per day Alcohol type: hard liquor Patient Tobacco Use Status: Current everyday Tobacco user Tobacco use type: Cigarette Cigarette Packs Per Day: 1 Cigarettes Per Day: 20.0 e-Cigarette/Vaping Use: Never Used Second Hand Smoke Exposure: No Substance Use Type: Marijuana Advance Directives: Yes Advance Directives on File: Yes Advance Directives Date on File: 03/05/22 service: No Current occupational status: disabled Physical Exam ED Vital Signs: Vital Signs - 24 hr 06/04/22 09:17 06/04/22 09:23 06/04/22 10:43 Temperature 97.9 F 97.6 F 97.6 F Pulse Rate 84 74 87 Respiratory Rate 16 17 18 Blood Pressure 112/69 107/70 108/60 Pulse Oximetry 93 93 95 Oxygen Delivery Method Room Air Room Air Room Air 06/04/22 12:46 Temperature Pulse Rate 77 Respiratory Rate 18 Blood Pressure 115/67 Pulse Oximetry 95 Oxygen Delivery Method Room Air BMI result Body Mass Index 21.4 Const General: cooperative Nutritional Appearance: well nourished Orientation/consciousness: patient oriented x3 HENMT Head: Yes normal to inspection General nose exam: Normal external nose present Face and sinus: Yes normal facial exam Mouth: Normal oral and palatal mucosa present Neck Neck: Yes normal visual inspection and Yes full ROM Chest Chest palpation & inspection: normal inspection of the chest Resp Effort & Inspection: normal respiratory effort Auscultation: clear to auscultation bilaterally Cardio Jugular venous distension: no JVD Rate: regular rate Rhythm: regular rhythm GI Inspection: Yes normal to inspection Palpation (GI): Soft to palpation Percussion: Yes normal to percussion Auscultation: normal bowel sounds General: Yes no CVA tenderness Back/Spine/Pelvis Back: no CVA tenderness Neuro General: patient oriented x3 Cranial nerves: Yes CN's II-XII intact bilaterally Course Reevaluation(s) Reevaluation #1: PATIENT WAS SEEN BY CARE TEAM A HE HAS DETOX LEVEL OF CARE DETOX ARRANGE AT [facility] Time: 13:37 Medical Decision Making Medical Decision Making [facility] Narrative: Patient presented with alcohol abuse requesting detox will get care team to see the patient Differential Diagnosis Differential Diagnoses: The differential diagnosis associated with the presentation includes Alcohol intoxication/alcohol abuse/electrolytes abnormality Admission/Observation Consideration of admission/observation: Escalation of care including admission/observation considered Consult Healthcare Provider Management of the patient was discussed with: [employer] CARE TEAM Lab Data [facility] Lab Attestation statement: I reviewed the patient's lab results. 06/04/22 11:10 06/04/22 10:38 Labs: Lab Results 06/04/22 06/04/22 Range/Units 10:38 11:10 WBC 3.5 L (4.8-10.8) X10*3/uL RBC 3.99 L (4.60-5.80) X10*6/uL Hgb 11.4 L (14.0-18.0) g/dl Hct 35.1 L (42.0-52.0) % MCV 88.0 (80.0-98.0) fL MCH 28.6 (27.0-33.0) pg MCHC 32.5 (31.0-36.0) g/dl RDW 17.2 H (11.0-16.0) % Plt Count 193 (160-400) X10*3/uL MPV 9.0 L (9.4-12.4) fL Immature Gran % (Auto) 0.3 (0.0-0.4) % Neut % (Auto) 34.1 L (45-73) % Lymph % (Auto) 47.0 H (20-40) % Briscoe % (Auto) 13.5 H (2-11) % Eos % (Auto) 3.4 (0-4) % Baso % (Auto) 1.7 (0-2) % Lymph # (Auto) 1.6 (1.2-4.9) X10*3/uL [place]e # (Auto) 0.5 (0.1-1.2) X10*3/uL Eos # (Auto) 0.1 (0.0-0.4) X10*3/uL Baso # (Auto) 0.1 (0.0-0.2) X10*3/uL Abs Immat Gran (auto) 0.01 (0.00-0.03) X10*3/uL Absolute Neuts (auto) 1.2 L (2.0-8.3) x10*3/uL Absolute Nucleated RBC 0.000 (0.0-0.012) X10*3/uL Nucleated RBC % (auto) 0.0 (0.0-0.2) /100WBC Sodium 145 (135-145) mmol/L Potassium 4.0 (3.3-5.1) mmol/L Chloride 102 (96-108) mmol/L Carbon Dioxide 31 H (22-29) mmol/L Anion Gap 16 (12-20) BUN 8 L (9-16) mg/dL Creatinine 0.80 (0.5-1.4) mg/dL Estim Creat Clear Calc 90.3 Estimated GFR > 60 Random Glucose 104 (60-115) mg/dL Calcium 8.7 (8.4-10.2) mg/dL Total Bilirubin 0.6 (0.0-1.0) mg/dL AST 75 H (5-37) U/L ALT 47 H (0-40) U/L Alkaline Phosphatase 121 H (39-117) U/L Total Protein 6.9 (6.5-8.0) g/dL Albumin 3.8 (3.5-5.0) g/dL Ethyl Alcohol 264 mg/dL Discharge Plan Discharge Clinical Impression: Alcohol abuse Patient Disposition: Home, Self-Care Instructions: Abuse of Alcohol (DC) Prescriptions: No Action albuterol sulfate [ProAir HFA] 90 mcg/actuation HFA aerosol inhaler 2 puff inhalation Q4-6H PRN (Reason: Wheezing) Qty: 8.5 0RF Eliquis 5 mg tablet 5 mg PO BID Qty: 30 0RF docusate sodium [DOK] 100 mg tablet 100 mg PO BID PRN (Reason: Constipation) Combivent Respimat 20-100 mcg/actuation mist 1 puff inhalation QID sertraline 25 mg tablet 1 tab PO DAILY Eliquis 5 mg tablet 5 mg PO BID 30 Days Qty: 60 0RF Combivent Respimat 20-100 mcg/actuation mist 1 puff inhalation Q6H Qty: 4 0RF albuterol sulfate 90 mcg/actuation HFA aerosol inhaler 1 inh inhalation QID PRN (Reason: shortness of breath or wheezing) Qty: 8.5 0RF Referrals: Physician,Unknown J [Primary Care Provider] - 2 days
[2022-06-04 09:17] VITALS: BP 112/69; PULSE 84; RESP 16; TEMP 36.6; O2SAT 93; BMI 21.4
[2022-06-04 09:23] VITALS: BP 107/70; PULSE 74; RESP 17; TEMP 36.4; O2SAT 93
[2022-06-04 10:43] VITALS: BP 108/60; PULSE 87; RESP 18; TEMP 36.4; O2SAT 95
[2022-06-04 11:10] LABS: Alanine Aminotransferase 47 U/L (0-40); Albumin Level 3.8 g/dL (3.5-5.0); Alkaline Phosphatase 121 U/L (39-117); Anion Gap 16 (12-20); Aspartate Amino Transferase 75 U/L (5-37); Bilirubin Total 0.6 mg/dL (0.0-1.0); Blood Urea Nitrogen 8 mg/dL (9-16); Calcium 8.7 mg/dL (8.4-10.2); Carbon Dioxide 31 mmol/L (22-29); Chloride 102 mmol/L (96-108); Creatinine Clr Calc Pharmacy 90.3; Estimated Glomerular Filt Rate > 60; Ethanol 264 mg/dL; Glucose Random 104 mg/dL (60-115); Sodium 145 mmol/L (135-145); Total Protein 6.9 g/dL (6.5-8.0)
[2022-06-04 11:17] LABS: Basophils Absolute Auto 0.1 X10*3/uL (0.0-0.2); Basophils Percent Auto 1.7 % (0-2); Eosinophils Absolute Auto 0.1 X10*3/uL (0.0-0.4); Eosinophils Percent Auto 3.4 % (0-4); Hematocrit 35.1 % (42.0-52.0); Hemoglobin 11.4 g/dl (14.0-18.0); Imm Gran Abs Auto 0.01 X10*3/uL (0.00-0.03); Imm Gran Pct Auto 0.3 % (0.0-0.4); Lymphocytes Absolute Auto 1.6 X10*3/uL (1.2-4.9); Mean Corpuscular HGB Conc 32.5 g/dl (31.0-36.0); Mean Corpuscular Hemoglobin 28.6 pg (27.0-33.0); Monocytes Absolute Auto 0.5 X10*3/uL (0.1-1.2); Monocytes Percent Auto 13.5 % (2-11); Neutrophils Absolute Auto 1.2 x10*3/uL (2.0-8.3); Neutrophils Percent Auto 34.1 % (45-73); Platelet Count 193 X10*3/uL (160-400); Red Blood Count 3.99 X10*6/uL (4.60-5.80); Red Cell Distribution Width 17.2 % (11.0-16.0); White Blood Count 3.5 X10*3/uL (4.8-10.8)
--- NOTE | 2022-06-04 12:10 | MHC.RECOVSUP ---
Met with pt in ED22H for potential ATS. Pt was interested in going to [facility] and completed a phone screen with them. T/W will follow up to see if he has been accepted.
[2022-06-04 12:46] VITALS: BP 115/67; PULSE 77; RESP 18; O2SAT 95
--- NOTE | 2022-06-04 13:21 | MHC.RECOVSUP ---
Pt has been dc and is on a Lyft to [employer].
== END 2022-06-04 13:44 | disposition home or self-care (01) ==
PROVIDERS: Emergency Provider Emergency Medicine
DX: F10.10 Alcohol abuse, uncomplicated (principal); Y90.8 Blood alcohol level of 240 mg/100 ml or more; Z79.899 Other long term (current) drug therapy; Z71.41 Alcohol abuse counseling and surveillance of alcoholic
CPT/HCPCS: 36415; 80053; 82077; 85025; 99282; 99283

== ENCOUNTER 2022-06-06 13:57 | Emergency (ER) | payer OTHER, SELFPAY ==
[2022-06-06 14:02] VITALS: BP 108/62; PULSE 78; O2SAT 98
[2022-06-06 14:07] VITALS: BP 75/53; PULSE 74; RESP 16; TEMP 35.6; O2SAT 99; BMI 22.1
[2022-06-06 14:19] VITALS: BP 86/64
[2022-06-06 14:28] LABS: MANUAL DIFF FLAG NO
[2022-06-06 14:30] VITALS: BP 94/54; PULSE 65; RESP 12; O2SAT 99
[2022-06-06 14:30] LABS: Basophils Percent Auto 0.9 % (0-2); Eosinophils Absolute Auto 0.2 X10*3/uL (0.0-0.4); Eosinophils Percent Auto 3.4 % (0-4); Hematocrit 31.8 % (42.0-52.0); Hemoglobin 10.4 g/dl (14.0-18.0); Imm Gran Abs Auto 0.01 X10*3/uL (0.00-0.03); Imm Gran Pct Auto 0.2 % (0.0-0.4); Lymphocytes Absolute Auto 1.4 X10*3/uL (1.2-4.9); Lymphocytes Percent Auto 31.5 % (20-40); Mean Corpuscular HGB Conc 32.7 g/dl (31.0-36.0); Mean Corpuscular Hemoglobin 28.3 pg (27.0-33.0); Mean Corpuscular Volume 86.6 fL (80.0-98.0); Mean Platelet Volume 9.8 fL (9.4-12.4); Monocytes Absolute Auto 0.6 X10*3/uL (0.1-1.2); Monocytes Percent Auto 13.1 % (2-11); Neutrophils Absolute Auto 2.3 x10*3/uL (2.0-8.3); Neutrophils Percent Auto 50.9 % (45-73); Platelet Count 157 X10*3/uL (160-400); Red Blood Count 3.67 X10*6/uL (4.60-5.80); Red Cell Distribution Width 16.6 % (11.0-16.0); White Blood Count 4.4 X10*3/uL (4.8-10.8)
--- NOTE | 2022-06-06 14:35 | PC.NURSE ---
Patient presented with ETOH, BP low upon arrival, patient moved from martin bed to 8. IV obtained and some blood work was drawn, iv fluids hung for pressure support.
[2022-06-06] MEDS: 0.9 % Sodium Chloride 1,000 ML 999 ML IV (14:49)
[2022-06-06 14:54] LABS: Alanine Aminotransferase 40 U/L (0-40); Albumin Level 3.7 g/dL (3.5-5.0); Alkaline Phosphatase 109 U/L (39-117); Anion Gap 12 (12-20); Aspartate Amino Transferase 69 U/L (5-37); Bilirubin Total 0.6 mg/dL (0.0-1.0); Blood Urea Nitrogen 7 mg/dL (9-16); Calcium 9.1 mg/dL (8.4-10.2); Carbon Dioxide 27 mmol/L (22-29); Chloride 105 mmol/L (96-108); Creatinine Clr Calc Pharmacy 99.6; Estimated Glomerular Filt Rate > 60; Ethanol 197 mg/dL; Glucose Random 77 mg/dL (60-115); Potassium 3.6 mmol/L (3.3-5.1); Sodium 140 mmol/L (135-145); Total Protein 6.6 g/dL (6.5-8.0)
--- NOTE | 2022-06-06 14:55 | ED.GENADULT ---
HPI - General Adult General Chief complaint: ETOH/Substance Use Stated complaint: ETOH,SEEKING DETOX Time Seen by Provider: 06/06/22 14:55 Source: patient, EMS, RN notes reviewed and old records reviewed Mode of arrival: EMS History of Present Illness HPI narrative: 61-year-old male with a past medical history ETOH abuse, COPD, asthma, DVT, neuropathy, presenting to the ED via EMS complaining of EtOH intoxication and requesting detox at [facility]. Patient reports mild decreased p.o. intake and dark/black diarrhea x few days. Denies fever, chills, CP/SOB, abdominal pain, nausea/vomiting, dysuria/hematuria, lightheadedness. Denies SI/HI Onset (ago): day(s) Related Data Home Medications Medication Instructions Recorded Confirmed docusate sodium 100 mg tablet (DOK) 100 mg PO BID PRN Constipation 02/06/22 05/29/22 ipratropium 20 mcg-albuterol 100 1 puff inhalation QID 02/06/22 05/29/22 mcg/actuation mist for inhalation (Combivent Respimat) sertraline 25 mg tablet 1 tab PO DAILY 05/18/22 05/29/22 Previous Rx's Medication Instructions Recorded albuterol sulfate 90 mcg/actuation 2 puff inhalation Q4-6H PRN 12/04/21 aerosol inhaler (ProAir HFA) Wheezing #8.5 grams apixaban 5 mg tablet (Eliquis) 5 mg PO BID #30 tabs 03/15/22 albuterol sulfate 90 mcg/actuation 1 inh inhalation QID PRN shortness 06/01/22 aerosol inhaler of breath or wheezing #8.5 grams apixaban 5 mg tablet (Eliquis) 5 mg PO BID 30 days #60 tabs 06/01/22 ipratropium 20 mcg-albuterol 100 1 puff inhalation Q6H #4 grams 06/01/22 mcg/actuation mist for inhalation (Combivent Respimat) Allergies Allergy/AdvReac Type Severity Reaction Status Date / Time Peanut Butter Allergy Facial Verified 06/01/22 11:07 Swelling raspberry Allergy Facial Verified 06/01/22 11:07 Swelling Review of Systems Review of Systems: Constitutional:No Fever, No Chills, No Fatigue, No Malaise ENT/Mouth: No Ear Pain, No sore throat, No Rhinorrhea, No Swallowing Difficulty Eyes: No Eye Pain, No Swelling, No Redness, No Vision Changes Cardiovascular: No Chest Pain, No SOB, No Edema, No Palpitations Respiratory: No Cough, No Sputum, No Dyspnea Gastrointestinal: No Nausea, No Vomiting, No Diarrhea, No Constipation, No Abdominal pain, No Hematochezia, + Melena Genitourinary: No Dysuria, No Hematuria, No Urinary Incontinence/retention, No Flank Pain Musculoskeletal: No joint pain, No Myalgias, No Joint Swelling Skin: No Skin Lesions, No rash Neuro: No Weakness, No Loss of Consciousness, No Dizziness, No Headache Psych: No Anxiety/Panic, No Depression, No SI/HI/AH/VH, + Social Issues Yes all other systems are reviewed and are negative Constitutional: Constitutional: Reports as per [facility] Past Medical History Attestation statement: The following information was validated with the patient. Medical History Acute and chronic respiratory failure with hypoxia Alcohol abuse Alcohol use disorder, severe, dependence Asthma COPD (chronic obstructive pulmonary disease) COPD (chronic obstructive pulmonary disease) DVT (deep venous thrombosis) Neuropathy Subdural hematoma Tobacco abuse Social History Social History Household Members: None Housing: House Do you presently have visiting nurse or other home services: No Alcohol intake: current Alcohol intake frequency: 3 or more drinks per day Alcohol type: hard liquor Patient Tobacco Use Status: Current everyday Tobacco user Tobacco use type: Cigarette Cigarette Packs Per Day: 1 Cigarettes Per Day: 20.0 Smoked in Last 30 Days: Yes e-Cigarette/Vaping Use: Never Used Second Hand Smoke Exposure: No Use of substances other than those prescribed or required for medical reasons: No Substance Use Type: Marijuana Advance Directives: Yes Advance Directives on File: Yes Advance Directives Date on File: 03/05/22 service: No Current occupational status: disabled Physical Exam ED Vital Signs: Vital Signs - 24 hr 06/06/22 14:07 06/06/22 14:19 06/06/22 14:30 Temperature 96.1 F L Pulse Rate 74 65 Respiratory Rate 16 12 Blood Pressure 75/53 L 86/64 L 94/54 L Pulse Oximetry 99 99 Oxygen Delivery Method Room Air Room Air 06/06/22 15:23 06/06/22 16:47 Temperature Pulse Rate 73 78 Respiratory Rate 14 18 Blood Pressure 126/74 116/72 Pulse Oximetry 97 98 Oxygen Delivery Method Room Air Room Air BMI result Body Mass Index 22.1 Const General: cooperative and no acute distress Orientation/consciousness: patient oriented x3 Limitations: no limitations HENMT Head: Yes normal to inspection and Yes atraumatic Ears: hearing grossly normal bilaterally General nose exam: Normal external nose present Face and sinus: Yes normal facial exam Mouth: Normal oral and palatal mucosa present Throat: Yes posterior oropharynx normal Eyes General: appearance normal, both eyes and all related structures Pupils: Equal, round and reactive pupils present EOM: EOMs intact bilaterally Neck Neck: Yes normal visual inspection and Yes no meningeal signs Resp Effort & Inspection: normal respiratory effort and no respiratory distress Auscultation: clear to auscultation bilaterally Cardio Rate: regular rate Heart sounds: S1 normal heart sound present and S2 normal heart sound present GI Inspection: Yes normal to inspection Palpation (GI): Soft to palpation, nontender, no guarding and not rigid Skin Rashes: no rashes Wounds: no wounds Neuro General: patient oriented x3, tone normal, moves all extremities, no meningeal signs, no focal motor deficits and CN's II-XI intact bilaterally Cranial nerves: Yes Equal, round and reactive pupils present Motor exam (neuro): no tremor noted, no asterixis and Motor fasciculations not present Extrem General: Yes normal to inspection Psych Thought content: suicidality and no homicidality Course Course Course Narrative: -chronic pancytopenia suspected from ETOH abuse. Magnesium mildly low at 1.5 > p.o. repletion ordered -UA not infected. Tox screen positive for barbiturates and ethanol 197 -occult stool negative > blood pressure improved without intervention. Patient ambulating in the ED with steady gait, requesting to be discharged, clinically sober >> patient was accepted [facility], will have Lyft from ED to facility Medications Administered Discontinued Medications Generic Name Dose Route Start Last Admin Trade Name Freq PRN Reason Stop Dose Admin Sodium Chloride 1,000 mls @ 999 mls/hr 06/06/22 14:45 06/06/22 14:49 Ns IV 06/06/22 15:45 999 mls/hr .Q1H1M NOHEMI Administration Magnesium Oxide 800 mg 06/06/22 16:35 06/06/22 16:50 Magnesium Oxide 400 Mg Tablet PO 06/06/22 16:36 Not Given ONCE ONE Medical Decision Making Medical Decision Making [facility] Narrative: 61-year-old male with a past medical history ETOH abuse, COPD, asthma, DVT, neuropathy, presenting to the ED via EMS complaining of EtOH intoxication and requesting detox at [facility]. Patient reports mild decreased p.o. intake and dark/black diarrhea x few days. On exam initially hypotensive, NAD, nontoxic appearing, no evidence of ETOH withdrawal at this time. A&O x3, abdomen soft/nontender. Concern for EtOH intoxication/dependence vs PUD/UGIB. Lower suspicion for appendicitis/diverticulitis or pneumonia Plan: Labs, UA, occult stool, IVF, CARE team consult Please refer to course for remaining clinical decision making, interpretation of labs/imaging results, and discussions with consultants and/or family members. Differential Diagnosis Differential Diagnoses: The differential diagnosis associated with the presentation includes As above Admission/Observation Consideration of admission/observation: Escalation of care including admission/observation considered Lab Data [facility] Lab Attestation statement: I reviewed the patient's lab results. 06/06/22 14:23 06/06/22 14:23 Labs: Lab Results 06/06/22 06/06/22 06/06/22 Range/Units 14:23 14:23 15:13 WBC 4.4 L (4.8-10.8) X10*3/uL RBC 3.67 L (4.60-5.80) X10*6/uL Hgb 10.4 L (14.0-18.0) g/dl Hct 31.8 L (42.0-52.0) % MCV 86.6 (80.0-98.0) fL MCH 28.3 (27.0-33.0) pg MCHC 32.7 (31.0-36.0) g/dl RDW 16.6 H (11.0-16.0) % Plt Count 157 L (160-400) X10*3/uL MPV 9.8 (9.4-12.4) fL Immature Gran % (Auto) 0.2 (0.0-0.4) % Neut % (Auto) 50.9 (45-73) % Lymph % (Auto) 31.5 (20-40) % [place] % (Auto) 13.1 H (2-11) % Eos % (Auto) 3.4 (0-4) % Baso % (Auto) 0.9 (0-2) % Lymph # (Auto) 1.4 (1.2-4.9) X10*3/uL [place] # (Auto) 0.6 (0.1-1.2) X10*3/uL Eos # (Auto) 0.2 (0.0-0.4) X10*3/uL Baso # (Auto) 0.0 (0.0-0.2) X10*3/uL Abs Immat Gran (auto) 0.01 (0.00-0.03) X10*3/uL Absolute Neuts (auto) 2.3 (2.0-8.3) x10*3/uL Absolute Nucleated RBC 0.000 (0.0-0.012) X10*3/uL Nucleated RBC % (auto) 0.0 (0.0-0.2) /100WBC Sodium 140 (135-145) mmol/L Potassium 3.6 (3.3-5.1) mmol/L Chloride 105 (96-108) mmol/L Carbon Dioxide 27 (22-29) mmol/L Anion Gap 12 (12-20) BUN 7 L (9-16) mg/dL Creatinine 0.75 (0.5-1.4) mg/dL Estim Creat Clear Calc 99.6 Estimated GFR > 60 Random Glucose 77 (60-115) mg/dL Calcium 9.1 (8.4-10.2) mg/dL Magnesium 1.5 L (1.6-2.6) mg/dL Total Bilirubin 0.6 (0.0-1.0) mg/dL AST 69 H (5-37) U/L ALT 40 (0-40) U/L Alkaline Phosphatase 109 (39-117) U/L Total Protein 6.6 (6.5-8.0) g/dL Albumin 3.7 (3.5-5.0) g/dL Lipase 35 (8-78) U/L Urine Color Urine Appearance Urine pH (5.0-9.0) Ur Specific [place] (1.005-1.025) Urine Protein (Neg-Trace) mg/dL Urine Glucose (UA) (Negative) mg/dL Urine Ketones (Negative) mg/dL Urine Blood (Negative) Urine Nitrite (Negative) Ur Leukocyte Esterase (Negative) Urine RBC (0-2) /HPF Urine WBC (0-5) /HPF Ur Squamous Epith Cells (0-2) /HPF Urine Bacteria (None Seen) Hyaline Casts (0-2) /LPF Stool Occult Blood (NEGATIVE) Urine Opiates Screen (Not Detect) Urine Fentanyl Screen (Not Detect) Ur Barbiturates Screen (Not Detect) Ur Phencyclidine Scrn (Not Detect) Ur Amphetamines Screen (Not Detect) U Benzodiazepines Scrn (Not Detect) Urine Cocaine Screen (Not Detect) U Marijuana (THC) Screen (Not Detect) Ethyl Alcohol 197 mg/dL COVID-19 (NELY) Negative (Negative) COVID-19 Clin Com See Note 06/06/22 06/06/22 06/06/22 Range/Units 15:13 15:26 15:26 WBC (4.8-10.8) X10*3/uL RBC (4.60-5.80) X10*6/uL Hgb (14.0-18.0) g/dl Hct (42.0-52.0) % MCV (80.0-98.0) fL MCH (27.0-33.0) pg MCHC (31.0-36.0) g/dl RDW (11.0-16.0) % Plt Count (160-400) X10*3/uL MPV (9.4-12.4) fL Immature Gran % (Auto) (0.0-0.4) % Neut % (Auto) (45-73) % Lymph % (Auto) (20-40) % [place] % (Auto) (2-11) % Eos % (Auto) (0-4) % Baso % (Auto) (0-2) % Lymph # (Auto) (1.2-4.9) X10*3/uL [place] # (Auto) (0.1-1.2) X10*3/uL Eos # (Auto) (0.0-0.4) X10*3/uL Baso # (Auto) (0.0-0.2) X10*3/uL Abs Immat Gran (auto) (0.00-0.03) X10*3/uL Absolute Neuts (auto) (2.0-8.3) x10*3/uL Absolute Nucleated RBC (0.0-0.012) X10*3/uL Nucleated RBC % (auto) (0.0-0.2) /100WBC Sodium (135-145) mmol/L Potassium (3.3-5.1) mmol/L Chloride (96-108) mmol/L Carbon Dioxide (22-29) mmol/L Anion Gap (12-20) BUN (9-16) mg/dL Creatinine (0.5-1.4) mg/dL Estim Creat Clear Calc Estimated GFR Random Glucose (60-115) mg/dL Calcium (8.4-10.2) mg/dL Magnesium (1.6-2.6) mg/dL Total Bilirubin (0.0-1.0) mg/dL AST (5-37) U/L ALT (0-40) U/L Alkaline Phosphatase (39-117) U/L Total Protein (6.5-8.0) g/dL Albumin (3.5-5.0) g/dL Lipase (8-78) U/L Urine Color Yellow Urine Appearance Clear Urine pH 7.5 (5.0-9.0) Ur Specific [place] <= 1.005 (1.005-1.025) Urine Protein Negative (Neg-Trace) mg/dL Urine Glucose (UA) Negative (Negative) mg/dL Urine Ketones Negative (Negative) mg/dL Urine Blood Negative (Negative) Urine Nitrite Negative (Negative) Ur Leukocyte Esterase Trace H (Negative) Urine RBC 0-2 (0-2) /HPF Urine WBC 0-5 (0-5) /HPF Ur Squamous Epith Cells 0-2 (0-2) /HPF Urine Bacteria None Seen (None Seen) Hyaline Casts 0-2 (0-2) /LPF Stool Occult Blood NEGATIVE (NEGATIVE) Urine Opiates Screen Not Detected (Not Detect) Urine Fentanyl Screen Not Detected (Not Detect) Ur Barbiturates Screen POSITIVE H (Not Detect) Ur Phencyclidine Scrn Not Detected (Not Detect) Ur Amphetamines Screen Not Detected (Not Detect) U Benzodiazepines Scrn Not Detected (Not Detect) Urine Cocaine Screen Not Detected (Not Detect) U Marijuana (THC) Screen Not Detected (Not Detect) Ethyl Alcohol mg/dL COVID-19 (NELY) (Negative) COVID-19 Clin Com Radiology Impression Discussion of test interpretation with radiology: I have reviewed the radiologist's reading. External Record Review External record reviewed: Inpatient record, Office record, Outpatient record, Prior outpatient labs, Prior outpatient radiology, Primary care record and Outside ED record Discharge Plan Discharge Clinical Impression: Alcohol abuse Patient Disposition: Xfer to Respite Facility Transfer Details[facility] Instructions: Abuse of Alcohol (DC) Additional Instructions: Your accepted to [facility], you be transferred from the emergency department. Avoid alcohol and drug use thia can kill you. Continue home prescribed medications Prescriptions: No Action albuterol sulfate [ProAir HFA] 90 mcg/actuation HFA aerosol inhaler 2 puff inhalation Q4-6H PRN (Reason: Wheezing) Qty: 8.5 0RF Eliquis 5 mg tablet 5 mg PO BID Qty: 30 0RF docusate sodium [DOK] 100 mg tablet 100 mg PO BID PRN (Reason: Constipation) Combivent Respimat 20-100 mcg/actuation mist 1 puff inhalation QID sertraline 25 mg tablet 1 tab PO DAILY Eliquis 5 mg tablet 5 mg PO BID 30 Days Qty: 60 0RF Combivent Respimat 20-100 mcg/actuation mist 1 puff inhalation Q6H Qty: 4 0RF albuterol sulfate 90 mcg/actuation HFA aerosol inhaler 1 inh inhalation QID PRN (Reason: shortness of breath or wheezing) Qty: 8.5 0RF Referrals: [facility] [Provider Group] Physical Therapy - [facility] [Outside] Interventions: ED Discharge Assessment Last Done: 06/06/22 16:51 Discharge Date/Time: 06/06/22 16:52
[2022-06-06 15:20] LABS: Lipase 35 U/L (8-78); Magnesium 1.5 mg/dL (1.6-2.6)
[2022-06-06 15:23] VITALS: BP 126/74; PULSE 73; RESP 14; O2SAT 97
[2022-06-06 15:29] LABS: OBS Int Ctl Valid YES; OBS1 NEGATIVE (NEGATIVE)
[2022-06-06 15:35] LABS: Appearance Urine Clear; Color Urine Yellow; Glucose Urine UA Negative (Negative); Leukocyte Esterase Urine Trace (Negative); Nitrite Urine Negative (Negative); PH 7.5 (5.0-9.0); Specific Gravity - Urine <= 1.005 (1.005-1.025); UMIC TRIGGER UACC YES; Urine Blood Negative (Negative); Urine Ketones Negative (Negative); Urine Protein Negative (Neg-Trace)
[2022-06-06 15:36] LABS: COVID-19 Test Negative (Negative); IDNOW Serial# BCCEAD1C
[2022-06-06 15:40] LABS: Bacteria Urine None Seen (None Seen); Hyaline Casts Urine 0-2 /LPF (0-2); RBC Urine 0-2 /HPF (0-2); Squamous Epithelial Cell Urine 0-2 /HPF (0-2); WBC Urine 0-5 /HPF (0-5)
[2022-06-06 15:51] LABS: Amphetamine Screen Urine Not Detected (Not Detect); Barbiturates, Urine POSITIVE (Not Detect); Benzodiazepines Screen Urine Not Detected (Not Detect); Cannabinoid Screen Urine Not Detected (Not Detect); Cocaine Screen Urine Not Detected (Not Detect); Fentanyl, urine Not Detected (Not Detect); Opiate Screen Urine Not Detected (Not Detect); Phencyclidine Screen Urine Not Detected (Not Detect)
[2022-06-06 16:47] VITALS: BP 116/72; PULSE 78; RESP 18; O2SAT 98
--- NOTE | 2022-06-06 16:52 | MHC.RECOVSUP ---
? Reason for consult Recovery support o Current location: [id number] o Identified substance use concern: Alcohol - Seeking ATS (detox) - Support ? Intervention: o ATS bed search started 430 pm ended at 5pm o Community resources provided o Harm reduction discussion ? Plan: <del>o</del> <del>Referral</del> <del>to</del> <del>[facility]del> <del>o</del> <del>Bed</del> <del>search</del> <del>in</del> <del>progress</del> <del>to</del> <del>o</del> <del>Follow</del> <del>up</del> <del>tomorrow</del> <del>o</del> <del>Patient</del> <del>awaiting</del> <del>crisis</del> <del>evaluation</del> <del>o</del> <del>Patient</del> <del>to</del> <del>follow</del> <del>up</del> <del>with</del> <del>[facility]</del> <del>after</del> <del>discharge</del> ? Additional information: patient came seeking help for detox for alcohol. Patient on hi was [facility] for [facility] 5pm intake
== END 2022-06-06 16:52 ==
PROVIDERS: Physician Assistant; Emergency Provider Emergency Medicine
DX: F10.10 Alcohol abuse, uncomplicated (principal); Y90.6 Blood alcohol level of 120-199 mg/100 ml; Z20.822 Contact with and (suspected) exposure to COVID-19; F17.210 Nicotine dependence, cigarettes, uncomplicated; F12.90 Cannabis use, unspecified, uncomplicated; Z79.01 Long term (current) use of anticoagulants; Z79.899 Other long term (current) drug therapy
CPT/HCPCS: 36415; 80053; 80307; 81001; 82077; 82272; 83690; 83735; 85025; 87635; 99285

== ENCOUNTER 2022-07-09 21:56 | Emergency (ER) | payer OTHER, SELFPAY ==
--- NOTE | 2022-07-09 | ECG_ITS ---
Test Reason : Chest Pain Blood Pressure : / mmHG Vent. Rate : 076 BPM Atrial Rate : 076 BPM P-R Int : 134 ms QRS Dur : 136 ms QT Int : 412 ms P-R-T Axes : 057 -72 054 degrees QTc Int : 463 ms Normal sinus rhythm Right bundle branch block Left anterior fascicular block Bifascicular block Abnormal ECG When compared with ECG of 29-MAY-2022 01:09, No significant change was found Referred By: Generic ED Physician Electronically Signed By:RENEE TRAMMELL
[2022-07-09 22:07] VITALS: BP 120/86; BP 126/66; PULSE 68; PULSE 82; RESP 93; TEMP 36.7; O2SAT 96; BMI 22.1
--- NOTE | 2022-07-09 22:34 | ED.ALCOHOL ---
HPI - Alcohol General Chief Complaint: ETOH/Substance Use Stated Complaint: ETOH Time Seen by Provider: 07/09/22 22:29 Source: patient Mode of arrival: EMS Limitations: no limitations History of Present Illness HPI narrative: Patient comes to the emergency room from home via ambulance. Patient reports that he has been drinking 2 pt of [place] and 1 sleeve of nips. Patient requesting detox. Seems that earlier today patient told the EMS crew that he had left-sided chest pain. Patient denies any chest pain at this time. Related Data Home Medications Medication Instructions Recorded Confirmed docusate sodium 100 mg tablet (DOK) 100 mg PO BID PRN Constipation 02/06/22 05/29/22 ipratropium 20 mcg-albuterol 100 1 puff inhalation QID 02/06/22 05/29/22 mcg/actuation mist for inhalation (Combivent Respimat) sertraline 25 mg tablet 1 tab PO DAILY 05/18/22 05/29/22 Previous Rx's Medication Instructions Recorded albuterol sulfate 90 mcg/actuation 2 puff inhalation Q4-6H PRN 12/04/21 aerosol inhaler (ProAir HFA) Wheezing #8.5 grams apixaban 5 mg tablet (Eliquis) 5 mg PO BID #30 tabs 03/15/22 albuterol sulfate 90 mcg/actuation 1 inh inhalation QID PRN shortness 06/01/22 aerosol inhaler of breath or wheezing #8.5 grams apixaban 5 mg tablet (Eliquis) 5 mg PO BID 30 days #60 tabs 06/01/22 ipratropium 20 mcg-albuterol 100 1 puff inhalation Q6H #4 grams 06/01/22 mcg/actuation mist for inhalation (Combivent Respimat) Allergies Allergy/AdvReac Type Severity Reaction Status Date / Time Peanut Butter Allergy Facial Verified 06/01/22 11:07 Swelling raspberry Allergy Facial Verified 06/01/22 11:07 Swelling Review of Systems Review of Systems: Constitutional : No Weight loss, No Fever, No Chills, No Night Sweats, No Fatigue, No Malaise ENT/Mouth : No Hearing loss, No Ear Pain, No Nasal Congestion, No Sinus Pain, No Hoarseness, No sore throat, No Rhinorrhea, No Swallowing Difficulty Eyes: No Eye Pain, No Swelling, No Redness, No Foreign Body, No Discharge, No Vision Changes Cardiovascular : No Chest Pain, No SOB, No Dyspnea on Exertion, No Orthopnea, No Edema, No Palpitations Respiratory : No Cough, No Sputum, No Wheezing, No Smoke Exposure, No Dyspnea Gastrointestinal : No Nausea, No Vomiting, No Diarrhea, No Constipation, No abdominal Pain, No Hematochezia, No Melena Genitourinary : no irregular bleeding, No Dysuria, No Urinary Frequency, No Hematuria, No Urinary Incontinence, No Urgency, No Flank Pain, No Urinary Flow Changes, No Hesitancy Musculoskeletal : No joint pain, No Myalgias, No Joint Swelling Skin : No Skin Lesions, No rash Neuro : No Weakness, No Numbness, No Paresthesias, No Loss of Consciousness, No Dizziness, No Headache Psych : No Anxiety/Panic, No Depression, No SI/HI/AH/VH, admits to heavy alcohol use on a daily basis, once detox Heme/Lymph: No Bruising, No Bleeding,No Lymphadenopathy Endocrine : No Polyuria, No Polydipsia, No Temperature Intolerance [facility] Past Medical History Medical History Acute and chronic respiratory failure with hypoxia Alcohol abuse Alcohol use disorder, severe, dependence Asthma COPD (chronic obstructive pulmonary disease) COPD (chronic obstructive pulmonary disease) DVT (deep venous thrombosis) Neuropathy Subdural hematoma Tobacco abuse Social History Social History Household Members: None Housing: House Do you presently have visiting nurse or other home services: No Alcohol intake: current Alcohol intake frequency: 3 or more drinks per day Alcohol type: hard liquor Patient Tobacco Use Status: Current everyday Tobacco user Tobacco use type: Cigarette Cigarette Packs Per Day: 1 Cigarettes Per Day: 20.0 Smoked in Last 30 Days: Yes e-Cigarette/Vaping Use: Never Used Second Hand Smoke Exposure: No Use of substances other than those prescribed or required for medical reasons: Yes Substance Use Type: Marijuana Substance Use Frequency: Occasionally Advance Directives Date on File: 03/05/22 service: No Current occupational status: disabled Physical Exam ED Vital Signs: Vital Signs - 24 hr 07/09/22 22:07 Temperature 98.0 F Pulse Rate 82 Respiratory Rate 93 H Blood Pressure 126/66 Oxygen Delivery Method Room Air BMI result Body Mass Index 22.1 Const Other: Appearance: Alert. Oriented X3. No acute distress. Eyes: Pupils equal, round and reactive to light. ENT: Pharynx normal. Neck: Normal inspection. Neck supple. No lymph nodes noted. No crepitus CVS: Normal heart rate and rhythm. Pulses normal. Normal S1 and S2 Respiratory: No respiratory distress. Breath sounds normal. No Wheezing. No rales Abdomen: Soft and nontender. No rigidity. No distention. Skin: Skin warm and dry. Normal skin color. Normal skin turgor. Extremities: No lower extremity edema. No Lacerations. No Rash Neuro: Oriented X 3. No motor deficit. No sensory deficit. Moving all extremities. No slurred speech. CN 2 through 12 grossly intact Psych: calm, cooperative, normal affect Medical Decision Making Medical Decision Making MDM Narrative: -patient's labs pending -EKG my interpretation: Normal sinus rhythm, bifascicular block, heart rate 76, QTC 463, no EKG changes when compared to EKG from April 2022 -patient denies SI or HI -care/personal health coach consult pending. Patient is known to request detox and changed his mind and requested to be discharged within a few hours of arriving to the emergency room. -physician observation started at 22:37 Discharge Plan Discharge Clinical Impression: Alcohol abuse Patient Disposition: Still a Patient Prescriptions: No Action albuterol sulfate [ProAir HFA] 90 mcg/actuation HFA aerosol inhaler 2 puff inhalation Q4-6H PRN (Reason: Wheezing) Qty: 8.5 0RF Eliquis 5 mg tablet 5 mg PO BID Qty: 30 0RF docusate sodium [DOK] 100 mg tablet 100 mg PO BID PRN (Reason: Constipation) Combivent Respimat 20-100 mcg/actuation mist 1 puff inhalation QID sertraline 25 mg tablet 1 tab PO DAILY Eliquis 5 mg tablet 5 mg PO BID 30 Days Qty: 60 0RF Combivent Respimat 20-100 mcg/actuation mist 1 puff inhalation Q6H Qty: 4 0RF albuterol sulfate 90 mcg/actuation HFA aerosol inhaler 1 inh inhalation QID PRN (Reason: shortness of breath or wheezing) Qty: 8.5 0RF
[2022-07-09 22:54] LABS: Hematocrit 35.7 % (42.0-52.0); Hemoglobin 11.9 g/dl (14.0-18.0); Mean Corpuscular HGB Conc 33.3 g/dl (31.0-36.0); Mean Corpuscular Hemoglobin 27.8 pg (27.0-33.0); Mean Corpuscular Volume 83.4 fL (80.0-98.0); Mean Platelet Volume 9.3 fL (9.4-12.4); Platelet Count 130 X10*3/uL (160-400); Red Blood Count 4.28 X10*6/uL (4.60-5.80); Red Cell Distribution Width 15.7 % (11.0-16.0); White Blood Count 4.6 X10*3/uL (4.8-10.8)
[2022-07-09 23:06] LABS: Ethanol 336 mg/dL
[2022-07-09 23:14] LABS: Amphetamine Screen Urine Not Detected (Not Detect); Barbiturates, Urine Not Detected (Not Detect); Benzodiazepines Screen Urine Not Detected (Not Detect); Cannabinoid Screen Urine Not Detected (Not Detect); Cocaine Screen Urine Not Detected (Not Detect); Fentanyl, urine Not Detected (Not Detect); Opiate Screen Urine Not Detected (Not Detect); Phencyclidine Screen Urine Not Detected (Not Detect)
[2022-07-09 23:17] LABS: Troponin-I High Sensitivity < 2.7 ng/L (<3.5-35.0)
[2022-07-09 23:19] LABS: Alanine Aminotransferase 12 U/L (0-40); Albumin Level 4.1 g/dL (3.5-5.0); Alkaline Phosphatase 97 U/L (39-117); Anion Gap 14 (12-20); Aspartate Amino Transferase 24 U/L (5-37); Bilirubin Total 0.5 mg/dL (0.0-1.0); Blood Urea Nitrogen 10 mg/dL (9-16); Calcium 8.8 mg/dL (8.4-10.2); Carbon Dioxide 29 mmol/L (22-29); Chloride 104 mmol/L (96-108); Creatinine Clr Calc Pharmacy 94.4; Estimated Glomerular Filt Rate > 60; Glucose Random 90 mg/dL (60-115); Potassium 3.8 mmol/L (3.3-5.1); Sodium 143 mmol/L (135-145); Total Protein 7.3 g/dL (6.5-8.0)
[2022-07-10 00:02] VITALS: BP 106/71; PULSE 79; RESP 18; TEMP 36.7; O2SAT 93
--- NOTE | 2022-07-10 00:03 | MHC.EDTECH ---
This tech assumed care of patient at 2300, vitals taken and patient is resting comfortable at this time.
[2022-07-10 02:01] VITALS: RESP 18
[2022-07-10 04:00] VITALS: RESP 18
--- NOTE | 2022-07-10 05:28 | MHC.EDTECH ---
Vitals taken, patient is resting comfortable at this time.
[2022-07-10 05:29] VITALS: BP 119/75; PULSE 91; RESP 18; TEMP 36.7; O2SAT 94
--- NOTE | 2022-07-10 06:28 | PC.NURSE ---
Patient is alert and oriented to self and place. VSS. Patient reports mild headache, nausea. CIWA assessment completed, patient scored 8. Dr. Bradley notified, no new orders at this time. Patient continues to express desire to go to detox.Care team eval pending. Patient quested some water and crackers.
[2022-07-10 10:19] VITALS: BP 125/77; PULSE 97; RESP 18; TEMP 36.1; O2SAT 96
--- NOTE | 2022-07-10 10:56 | PC.NURSE ---
polo coach at the bedside
--- NOTE | 2022-07-10 11:36 | MHC.RECOVSUP ---
Met with pt in ED22H for potential ATS bed search. Pt reports drinking about 2 pints a day with his last drink being 1 pint earlier this morning. Pt can not recall when he last attended ATS but has been drinking daily since. Pt is interested in ATS and a bed search is in process.
--- NOTE | 2022-07-10 13:28 | PC.NURSE ---
patient up eating lunch. denies pain at this time. will CTM
== END 2022-07-10 15:35 | disposition home or self-care (01) ==
PROVIDERS: Emergency Provider Emergency Medicine
DX: F10.10 Alcohol abuse, uncomplicated (principal); Y90.8 Blood alcohol level of 240 mg/100 ml or more; F17.200 Nicotine dependence, unspecified, uncomplicated; Z86.718 Personal history of other venous thrombosis and embolism; Z79.01 Long term (current) use of anticoagulants; Z79.899 Other long term (current) drug therapy
CPT/HCPCS: 36415; 80053; 80307; 84484; 85027; 93005; 99284; 99285

== ENCOUNTER 2022-07-12 23:58 | Emergency (ER) | payer OTHER, SELFPAY ==
[2022-07-13 00:09] VITALS: BP 118/69; PULSE 80; RESP 16; TEMP 36.6; O2SAT 94; BMI 20.7
--- NOTE | 2022-07-13 00:12 | ED_ITS ---
HPI - Alcohol General Chief Complaint: ETOH/Substance Use Stated Complaint: ETOH History of Present Illness HPI narrative: Patient is 62-year-old male who presents today with having drank most of the morning. Now wants to go to detox. Patient denies any suicidal homicidal ideation. He is from home. Related Data Home Medications Medication Instructions Recorded Confirmed docusate sodium 100 mg tablet (DOK) 100 mg PO BID PRN Constipation 02/06/22 05/29/22 ipratropium 20 mcg-albuterol 100 1 puff inhalation QID 02/06/22 05/29/22 mcg/actuation mist for inhalation (Combivent Respimat) sertraline 25 mg tablet 1 tab PO DAILY 05/18/22 05/29/22 Previous Rx's Medication Instructions Recorded albuterol sulfate 90 mcg/actuation 2 puff inhalation Q4-6H PRN 12/04/21 aerosol inhaler (ProAir HFA) Wheezing #8.5 grams apixaban 5 mg tablet (Eliquis) 5 mg PO BID #30 tabs 03/15/22 albuterol sulfate 90 mcg/actuation 1 inh inhalation QID PRN shortness 06/01/22 aerosol inhaler of breath or wheezing #8.5 grams apixaban 5 mg tablet (Eliquis) 5 mg PO BID 30 days #60 tabs 06/01/22 ipratropium 20 mcg-albuterol 100 1 puff inhalation Q6H #4 grams 06/01/22 mcg/actuation mist for inhalation (Combivent Respimat) Allergies Allergy/AdvReac Type Severity Reaction Status Date / Time Peanut Butter Allergy Facial Verified 06/01/22 11:07 Swelling raspberry Allergy Facial Verified 06/01/22 11:07 Swelling Review of Systems Review of Systems: Positive ETOH Yes all other systems are reviewed and are negative PMFSH Past Medical History Attestation statement: The following information was validated with the patient. Medical History Acute and chronic respiratory failure with hypoxia Alcohol abuse Alcohol use disorder, severe, dependence Asthma COPD (chronic obstructive pulmonary disease) COPD (chronic obstructive pulmonary disease) DVT (deep venous thrombosis) Neuropathy Subdural hematoma Tobacco abuse Social History Social History Household Members: None Housing: House Do you presently have visiting nurse or other home services: No Alcohol intake: current Alcohol intake frequency: 3 or more drinks per day Alcohol type: hard liquor Patient Tobacco Use Status: Current everyday Tobacco user Tobacco use type: Cigarette Cigarette Packs Per Day: 1 Cigarettes Per Day: 20.0 e-Cigarette/Vaping Use: Never Used Second Hand Smoke Exposure: No Substance Use Type: Marijuana Advance Directives: Yes Advance Directives on File: Yes Advance Directives Date on File: 03/05/22 service: No Current occupational status: disabled Physical Exam ED Vital Signs: Vital Signs - 24 hr 07/13/22 00:09 Temperature 97.9 F Pulse Rate 80 Respiratory Rate 16 Blood Pressure 118/69 Pulse Oximetry 94 Oxygen Delivery Method Room Air BMI result Body Mass Index 20.7 Appearance: Alert. Oriented X3. No acute distress. Eyes: Pupils equal, round and reactive to light. ENT: Pharynx normal. Neck: Normal inspection. Neck supple. No lymph nodes noted. No crepitus CVS: Normal heart rate and rhythm. Pulses normal. Normal S1 and S2 Respiratory: No respiratory distress. Breath sounds normal. No Wheezing. No ra les Abdomen: Soft and nontender. No rigidity. No distention. good BS x4 Skin: Skin warm and dry. Normal skin color. Normal skin turgor. Extremities: No lower extremity edema. Neurovascular intact to all extremities. No Lacerations. No Rash Neuro: Oriented X 3. No motor deficit. No sensory deficit. Moving all extermities. No slurred speech Medical Decision Making Medical Decision Making MDM Narrative: Will get labs and monitor. Care team consulted Patient's alcohol was 300. Currently awaiting clinical sobriety and for care team to evaluate patient for possible detox should in stable condition. Differential Diagnosis Alcohol intoxication, polysubstance abuse Lab Data [facility] Lab Attestation statement: I reviewed the patient's lab results. 07/13/22 00:34 07/13/22 00:34 Labs: Lab Results 07/13/22 07/13/22 Range/Units 00:34 00:34 WBC 3.8 L (4.8-10.8) X10*3/uL RBC 3.96 L (4.60-5.80) X10*6/uL Hgb 11.1 L (14.0-18.0) g/dl Hct 33.8 L (42.0-52.0) % MCV 85.4 (80.0-98.0) fL MCH 28.0 (27.0-33.0) pg MCHC 32.8 (31.0-36.0) g/dl RDW 15.9 (11.0-16.0) % Plt Count 92 L D (160-400) X10*3/uL MPV 9.7 (9.4-12.4) fL Immature Gran % (Auto) 0.3 (0.0-0.4) % Neut % (Auto) 40.0 L (45-73) % Lymph % (Auto) 44.7 H (20-40) % Churchill % (Auto) 11.3 H (2-11) % Eos % (Auto) 2.9 (0-4) % Baso % (Auto) 0.8 (0-2) % Lymph # (Auto) 1.7 (1.2-4.9) X10*3/uL Churchill # (Auto) 0.4 (0.1-1.2) X10*3/uL Eos # (Auto) 0.1 (0.0-0.4) X10*3/uL Baso # (Auto) 0.0 (0.0-0.2) X10*3/uL Abs Immat Gran (auto) 0.01 (0.00-0.03) X10*3/uL Absolute Neuts (auto) 1.5 L (2.0-8.3) x10*3/uL Absolute Nucleated RBC 0.000 (0.0-0.012) X10*3/uL Nucleated RBC % (auto) 0.0 (0.0-0.2) /100WBC Sodium 145 (135-145) mmol/L Potassium 3.9 (3.3-5.1) mmol/L Chloride 108 (96-108) mmol/L Carbon Dioxide 27 (22-29) mmol/L Anion Gap 14 (12-20) BUN 8 L (9-16) mg/dL Creatinine 0.79 (0.5-1.4) mg/dL Estim Creat Clear Calc 87.0 Estimated GFR > 60 Random Glucose 95 (60-115) mg/dL Calcium 8.5 (8.4-10.2) mg/dL Ethyl Alcohol 385 H* mg/dL External Record Review External record reviewed: Inpatient record Chronic Conditions Chronic alcohol abuse Discharge Plan Discharge Clinical Impression: Alcohol abuse Patient Disposition: Still a Patient Prescriptions: No Action albuterol sulfate [ProAir HFA] 90 mcg/actuation HFA aerosol inhaler 2 puff inhalation Q4-6H PRN (Reason: Wheezing) Qty: 8.5 0RF Eliquis 5 mg tablet 5 mg PO BID Qty: 30 0RF docusate sodium [DOK] 100 mg tablet 100 mg PO BID PRN (Reason: Constipation) Combivent Respimat 20-100 mcg/actuation mist 1 puff inhalation QID sertraline 25 mg tablet 1 tab PO DAILY Eliquis 5 mg tablet 5 mg PO BID 30 Days Qty: 60 0RF Combivent Respimat 20-100 mcg/actuation mist 1 puff inhalation Q6H Qty: 4 0RF albuterol sulfate 90 mcg/actuation HFA aerosol inhaler 1 inh inhalation QID PRN (Reason: shortness of breath or wheezing) Qty: 8.5 0RF
[2022-07-13 00:39] LABS: MANUAL DIFF FLAG NO
[2022-07-13 00:44] LABS: Basophils Percent Auto 0.8 % (0-2); Eosinophils Absolute Auto 0.1 X10*3/uL (0.0-0.4); Eosinophils Percent Auto 2.9 % (0-4); Hematocrit 33.8 % (42.0-52.0); Hemoglobin 11.1 g/dl (14.0-18.0); Imm Gran Abs Auto 0.01 X10*3/uL (0.00-0.03); Imm Gran Pct Auto 0.3 % (0.0-0.4); Lymphocytes Absolute Auto 1.7 X10*3/uL (1.2-4.9); Lymphocytes Percent Auto 44.7 % (20-40); Mean Corpuscular HGB Conc 32.8 g/dl (31.0-36.0); Mean Corpuscular Volume 85.4 fL (80.0-98.0); Mean Platelet Volume 9.7 fL (9.4-12.4); Monocytes Absolute Auto 0.4 X10*3/uL (0.1-1.2); Monocytes Percent Auto 11.3 % (2-11); Neutrophils Absolute Auto 1.5 x10*3/uL (2.0-8.3); Red Blood Count 3.96 X10*6/uL (4.60-5.80); Red Cell Distribution Width 15.9 % (11.0-16.0); White Blood Count 3.8 X10*3/uL (4.8-10.8)
[2022-07-13 00:56] LABS: Anion Gap 14 (12-20); Blood Urea Nitrogen 8 mg/dL (9-16); Calcium 8.5 mg/dL (8.4-10.2); Carbon Dioxide 27 mmol/L (22-29); Chloride 108 mmol/L (96-108); Estimated Glomerular Filt Rate > 60; Ethanol 385 mg/dL; Glucose Random 95 mg/dL (60-115); Potassium 3.9 mmol/L (3.3-5.1); Sodium 145 mmol/L (135-145)
[2022-07-13 01:02] LABS: Platelet Count 92 X10*3/uL (160-400)
--- NOTE | 2022-07-13 06:31 | PC.NURSE ---
pt sleeping comfortably on stretcher, respirations even and unlabored. equal chest rise and fall. pt in hallway in view of nurses station. waiting for CARE team consult. will CTM
--- NOTE | 2022-07-13 07:29 | PC.NURSE ---
Resumed care of patient this morning, he is currently sleeping, plan to talk with care team for detox.
--- NOTE | 2022-07-13 09:39 | MHC.RECOVRN ---
Met with pt in [id number] to discuss desire for ATS. Pt reports drinking average of 2 pints [place] daily and is interested in ATS. Pt willing to go to any facility. Pt reports last ATS admission a couple months ago. Bedsearch commenced.
--- NOTE | 2022-07-13 10:20 | PC.NURSE ---
Pt continues to be resting, no signs of distress, RR regular and even.
== END 2022-07-13 12:18 | disposition home or self-care (01) ==
PROVIDERS: Emergency Provider Emergency Medicine Emergency Medical Services
DX: F10.129 Alcohol abuse with intoxication, unspecified (principal); Y90.8 Blood alcohol level of 240 mg/100 ml or more; Z79.899 Other long term (current) drug therapy; F17.210 Nicotine dependence, cigarettes, uncomplicated; Z71.6 Tobacco abuse counseling
CPT/HCPCS: 36415; 80048; 80307; 85025; 99284

== ENCOUNTER 2022-07-13 22:19 | Emergency (ER) | payer OTHER, SELFPAY ==
[2022-07-13 22:29] VITALS: BP 134/65; BP 137/70; PULSE 80; PULSE 81; RESP 19; TEMP 36.6; O2SAT 95; O2SAT 97; BMI 21.8
--- NOTE | 2022-07-13 22:46 | PC.NURSE ---
pt c/o tooth ache on lower left side, believes there is an absces ETOH+
[2022-07-14] VITALS (11 sets, daily range): BP systolic 98–131; BP diastolic 63–80; PULSE 71–94; RESP 12–18; TEMP 36.6–36.8; O2SAT 91–99
--- NOTE | 2022-07-14 00:06 | ED_ITS ---
HPI - Alcohol General Chief Complaint: ETOH/Substance Use Stated Complaint: ETOH Time Seen by Provider: 07/14/22 00:06 Source: patient Mode of arrival: ambulatory Limitations: no limitations History of Present Illness HPI narrative: This is a 62-year-old male presenting requesting alcohol detox, patient reports he has been drinking all day and wants to go to detox. Patient reports he typically drinks a pt of [employer] and nips. Also reporting left lower tooth pain X1 day thinks its infected sensative to hot and cold hasnt seen a dentist in a while. Denies SI and HI. No fevers, chills, sore throat, changes in voice, trouble swallowing or controlling secretions, headache, vision changes, dizziness, weakness, chest pain or shortness of breath. Related Data Home Medications Medication Instructions Recorded Confirmed docusate sodium 100 mg tablet (DOK) 100 mg PO BID PRN Constipation 02/06/22 05/29/22 ipratropium 20 mcg-albuterol 100 1 puff inhalation QID 02/06/22 05/29/22 mcg/actuation mist for inhalation (Combivent Respimat) sertraline 25 mg tablet 1 tab PO DAILY 05/18/22 05/29/22 Previous Rx's Medication Instructions Recorded albuterol sulfate 90 mcg/actuation 2 puff inhalation Q4-6H PRN 12/04/21 aerosol inhaler (ProAir HFA) Wheezing #8.5 grams apixaban 5 mg tablet (Eliquis) 5 mg PO BID #30 tabs 03/15/22 albuterol sulfate 90 mcg/actuation 1 inh inhalation QID PRN shortness 06/01/22 aerosol inhaler of breath or wheezing #8.5 grams apixaban 5 mg tablet (Eliquis) 5 mg PO BID 30 days #60 tabs 06/01/22 ipratropium 20 mcg-albuterol 100 1 puff inhalation Q6H #4 grams 06/01/22 mcg/actuation mist for inhalation (Combivent Respimat) amoxicillin 875 mg-potassium 1 tab PO BID 7 days #14 tabs 07/14/22 clavulanate 125 mg tablet Allergies Allergy/AdvReac Type Severity Reaction Status Date / Time Peanut Butter Allergy Facial Verified 06/01/22 11:07 Swelling raspberry Allergy Facial Verified 06/01/22 11:07 Swelling Review of Systems Review of Systems: Constitutional : No Weight loss, No Fever, No Chills, No Fatigue, No Malaise ENT/Mouth : No sore throat, No Rhinorrhea, + toothache Eyes: No Eye Pain, No Swelling, No Redness Cardiovascular : No Chest Pain, No SOB, No Dyspnea on Exertion, No Orthopnea, No Edema, No Palpitations Respiratory : No Cough, No Sputum, No Wheezing Gastrointestinal : No Nausea, No Vomiting, No Diarrhea, No Constipation, No abdominal Pain, No Hematochezia, No Melena Genitourinary : No Dysuria, No Urinary Frequency, No Hematuria, Musculoskeletal : No joint pain, No Myalgias, No Joint Swelling Skin : No Skin Lesions, No rash Neuro : No Weakness, No Numbness, No Dizziness, No Headache Psych : No Anxiety/Panic, No Depression All other systems reviewed and are negative Yes all other systems are reviewed and are negative PMFSH Past Medical History Attestation statement: The following information was validated with the patient. Source: old records reviewed and nursing notes reviewed Medical History Acute and chronic respiratory failure with hypoxia Alcohol abuse Alcohol use disorder, severe, dependence Asthma COPD (chronic obstructive pulmonary disease) COPD (chronic obstructive pulmonary disease) DVT (deep venous thrombosis) Neuropathy Subdural hematoma Tobacco abuse Social History Social History Household Members: None Housing: House Do you presently have visiting nurse or other home services: No Alcohol intake: current Alcohol intake frequency: 3 or more drinks per day Alcohol type: hard liquor Patient Tobacco Use Status: Current everyday Tobacco user Tobacco use type: Cigarette Cigarette Packs Per Day: 1 Cigarettes Per Day: 20.0 Smoked in Last 30 Days: No e-Cigarette/Vaping Use: Never Used Second Hand Smoke Exposure: No Use of substances other than those prescribed or required for medical reasons: No Substance Use Type: Marijuana Advance Directives: Yes Advance Directives on File: Yes Advance Directives Date on File: 03/05/22 service: No Current occupational status: disabled Physical Exam ED Vital Signs: Vital Signs - 24 hr 07/13/22 22:29 07/13/22 22:29 Temperature 98 F 98 F Pulse Rate 81 81 Respiratory Rate 19 19 Blood Pressure 134/65 134/65 Pulse Oximetry 95 95 Oxygen Delivery Method Room Air Room Air BMI result Body Mass Index 21.8 Vital signs stable Appearance: Alert.? Oriented X3.? No acute distress.? Patient appears unkempt. Head: Normocephalic, atraumatic, no step-offs or deformities Eyes: Pupils equal, round and reactive to light.? ENT: Pharynx normal.? Poor dentition throughout with multiple caries and broken teeth, unable to appreciate any dental abscesses. Patient reports pain with palpation of left lower molar. Speaking in full sentences controlling secretions well Neck: Normal inspection.? Neck supple.? CVS: Normal heart rate and rhythm.? Pulses normal.? Respiratory: No respiratory distress.? Breath sounds normal.? Abdomen: Soft and nontender.? Skin: Skin warm and dry.? Normal skin color.? Normal skin turgor.? Extremities: No lower extremity edema.? No calf ttp. 5/5 strength to bilateral upper and lower extremities Neuro: Oriented X 3.? No motor deficit.? No sensory deficit. CN 2-12 intact Course Reevaluation(s) Reevaluation #1: CBC appears to be around patient's baseline with normocytic anemia and low platelets. Chemistry with no acute findings. Ethanol level 385. At this time patient to be placed in observation will be discharged home with antibiotics when he leaves. Will put him in so he can be evaluated by the care team or recovery for detox. Time: 00:13 Medical Decision Making Medical Decision Making MDM Narrative: 62-year-old male presents requesting detox from alcohol. Current daily drinker Physical exam significant for Pharynx normal.? Poor dentition throughout with multiple caries and broken teeth, unable to appreciate any dental abscesses. Patient reports pain with palpation of left lower molar. Speaking in full sentences controlling secretions well Likely acute alcohol intoxication. No signs of acute alcohol withdrawal at this time or delirium tremens. Will rule out electrolyte abnormalities. Unable to appreciate dental abscess. Likely poor dentition and dental caries. Possible gingivitis. Plan medical clearance and evaluation by recovery team Differential Diagnosis Differential Diagnoses: The differential diagnosis associated with the presentation includes Likely acute alcohol intoxication. No signs of acute alcohol withdrawal at this time or delirium tremens. Will rule out electrolyte abnormalities. Unable to appreciate dental abscess. Likely poor dentition and dental caries. Possible gingivitis. Admission/Observation Consideration of admission/observation: Escalation of care including admission/observation considered Lab Data [facility] Lab Attestation statement: I reviewed the patient's lab results. Core Measures AMI core measures followed: Yes Measure exclusions: not indicated Critical Care Time Critical Care Time Critical Care Time: No Discharge Plan Discharge Clinical Impression: Alcohol abuse, Alcoholic intoxication, Pain in tooth Patient Disposition: Still a Patient Prescriptions: New amoxicillin-pot clavulanate 875-125 mg tablet 1 tab PO BID 7 Days Qty: 14 0RF No Action albuterol sulfate [ProAir HFA] 90 mcg/actuation HFA aerosol inhaler 2 puff inhalation Q4-6H PRN (Reason: Wheezing) Qty: 8.5 0RF Eliquis 5 mg tablet 5 mg PO BID Qty: 30 0RF docusate sodium [DOK] 100 mg tablet 100 mg PO BID PRN (Reason: Constipation) Combivent Respimat 20-100 mcg/actuation mist 1 puff inhalation QID sertraline 25 mg tablet 1 tab PO DAILY Eliquis 5 mg tablet 5 mg PO BID 30 Days Qty: 60 0RF Combivent Respimat 20-100 mcg/actuation mist 1 puff inhalation Q6H Qty: 4 0RF albuterol sulfate 90 mcg/actuation HFA aerosol inhaler 1 inh inhalation QID PRN (Reason: shortness of breath or wheezing) Qty: 8.5 0RF
--- NOTE | 2022-07-14 06:43 | PC.NURSE ---
pt ambulated to restroom and back to safely and independently with cane
--- NOTE | 2022-07-14 09:25 | MHC.RECOVRN ---
Addendum entered by Marsha Gutiérrez RN 07/14/22 09:34: Detox referral sent to [facility]. Original Note: This typewriter repairer met with patient, patient resting in dim lit room, awake to verbal command. Patient requesting detox, reports has been drinking 1-2 pints daily ETOH. Patient agreeable to Addiction/Recovery team calling son Real Zavala.
--- NOTE | 2022-07-14 09:34 | PC.NURSE ---
assumed care of this pt at 0700. pt sleeping at the time of assuming care. vss, c/o chronic neuropathic pain. CIWA 2. pt just seen by disaster recovery specialist EM. pt handed off to another RN.
--- NOTE | 2022-07-14 11:43 | MHC.RECOVSUP ---
Met with pt in ED14 who is here for ETOH use. Pt met with Nurse Em earlier in the day and a bed search for [facility] was made. [facility] confirms [facility] will take pt for 10pm admission and would like him to have his RX of Eliquis, waiting for phone screen. T/W informed provider of plan and had an RX sent to [facility]. Pt has no other questions or concerns at this time.
[2022-07-14] MEDS: Acetaminophen 325 MG TABLET 650 MG PO (11:48)
--- NOTE | 2022-07-14 14:05 | MHC.RECOVSUP ---
Pt accepted to [facility] for 11pm admission. [facility] requests we send him as close to 11pm as we can so a Lyft is scheduled for 9:30pm. Care team was updated on this plan as backup in case the Lyft falls through after the speech coach leaves at 10pm. Pt is aware of plan and has no questions or concerns at this time. Provider aware of plan.
[2022-07-14] MEDS: Albuterol/Iprat 2.5/0.5MG 3 ML AMPUL.NEB INHALE (14:39)
--- NOTE | 2022-07-14 14:55 | PC.RT ---
pt refused treatment after 3 minutes due to nausea, B/S clear biltal on room air, no action needed
[2022-07-14] MEDS: Ondansetron ODT 4 MG TAB.RAPDIS TRANSLINGU (17:38)
--- NOTE | 2022-07-14 19:09 | PC.NURSE ---
assumed care of pt at 1900 report received from Agatha FRANCO
--- NOTE | 2022-07-14 19:56 | PC.NURSE ---
pt provided with dinner tray
--- NOTE | 2022-07-14 21:09 | MHC.RECOVSUP ---
? Reason for consult:ETOH o? Current location:ED14? o? Identified substance use concern:? -? Support ? Intervention: ? Plan:[facility] intake 9:30, [facility] informed me this gentle man need to get put in a LYFT at 9:30 pm. [facility] will put this pt in a Lyft. ? Additional information:
[2022-07-14] MEDS: Apixaban 5 MG TABLET PO (21:23)
--- NOTE | 2022-07-14 21:25 | PC.NURSE ---
Williams valentine on the way to flower picker patient to bring him to detox facility. Pt ambulating using cane
== END 2022-07-14 21:31 | disposition home or self-care (01) ==
PROVIDERS: Emergency Provider Emergency Medicine; PCP Internal Medicine
DX: F10.129 Alcohol abuse with intoxication, unspecified (principal); K08.89 Other specified disorders of teeth and supporting structures; Y90.8 Blood alcohol level of 240 mg/100 ml or more; J44.9 Chronic obstructive pulmonary disease, unspecified; F17.210 Nicotine dependence, cigarettes, uncomplicated; Z71.6 Tobacco abuse counseling; Z79.899 Other long term (current) drug therapy
CPT/HCPCS: 94640; 99285

== ENCOUNTER 2022-07-19 16:27 | Emergency (ER) | payer OTHER, SELFPAY ==
--- NOTE | 2022-07-19 | ECG_ITS ---
Test Reason : ETOH Blood Pressure : / mmHG Vent. Rate : 062 BPM Atrial Rate : 062 BPM P-R Int : 140 ms QRS Dur : 130 ms QT Int : 430 ms P-R-T Axes : 052 -36 050 degrees QTc Int : 436 ms Normal sinus rhythm Left axis deviation Right bundle branch block Abnormal ECG When compared with ECG of 09-JUL-2022 22:24, No significant change was found Referred By: Generic ED Physician Electronically Signed By:RENEE TRAMMELL
[2022-07-19 16:36] VITALS: BP 130/85; BP 96/56; PULSE 64; PULSE 80; RESP 16; TEMP 36.4; O2SAT 100; O2SAT 95; BMI 21.4
--- NOTE | 2022-07-19 17:51 | ED.ALCOHOL ---
HPI - Alcohol General Chief Complaint: ETOH/Substance Use Stated Complaint: ETOH INTOX,WANT DETOX PER EMS Time Seen by Provider: 07/19/22 17:29 Source: patient Mode of arrival: EMS Limitations: no limitations History of Present Illness HPI narrative: Patient with history of alcohol abuse was seen here on 07/13 went to detox came out of his own today and now asking for to go to detox again patient walking steady gait no trauma orientation normal Related Data Home Medications Medication Instructions Recorded Confirmed ipratropium 20 mcg-albuterol 100 1 puff inhalation QID 02/06/22 07/14/22 mcg/actuation mist for inhalation (Combivent Respimat) docusate sodium 100 mg tablet 100 mg PO BID PRN constipation 07/14/22 07/14/22 Previous Rx's Medication Instructions Recorded albuterol sulfate 90 mcg/actuation 1 inh inhalation QID PRN shortness 06/01/22 aerosol inhaler of breath or wheezing #8.5 grams apixaban 5 mg tablet (Eliquis) 5 mg PO BID 30 days #60 tabs 06/01/22 amoxicillin 875 mg-potassium 1 tab PO BID 7 days #14 tabs 07/14/22 clavulanate 125 mg tablet apixaban 5 mg tablet (Eliquis) 5 mg PO BID #60 tabs 07/14/22 Allergies Allergy/AdvReac Type Severity Reaction Status Date / Time Peanut Butter Allergy Facial Verified 06/01/22 11:07 Swelling raspberry Allergy Facial Verified 06/01/22 11:07 Swelling Review of Systems Review of Systems: Yes all other systems are reviewed and are negative PMFSH Past Medical History Medical History Acute and chronic respiratory failure with hypoxia Alcohol abuse Alcohol use disorder, severe, dependence Asthma COPD (chronic obstructive pulmonary disease) COPD (chronic obstructive pulmonary disease) DVT (deep venous thrombosis) Neuropathy Subdural hematoma Tobacco abuse Social History Social History Household Members: None Housing: House Do you presently have visiting nurse or other home services: No Alcohol intake: current Alcohol intake frequency: 3 or more drinks per day Alcohol type: hard liquor Patient Tobacco Use Status: Current everyday Tobacco user Tobacco use type: Cigarette Cigarette Packs Per Day: 1 Cigarettes Per Day: 20.0 Smoked in Last 30 Days: Yes e-Cigarette/Vaping Use: Never Used Second Hand Smoke Exposure: No Use of substances other than those prescribed or required for medical reasons: Yes Substance Use Type: Marijuana Advance Directives: Yes Advance Directives on File: Yes Advance Directives Date on File: 03/05/22 service: No Current occupational status: disabled Physical Exam ED Vital Signs: Vital Signs - 24 hr 07/19/22 16:36 Temperature 97.5 F Pulse Rate 64 Respiratory Rate 16 Blood Pressure 96/56 L Pulse Oximetry 95 Oxygen Delivery Method Room Air BMI result Body Mass Index 21.4 Appearance: Alert. Oriented X3. No acute distress. etoh Eyes: PERRLA, No Nystagmus HEENT: Pharynx normal. Oral Mucosa moist atraumatic normocephalic Neck: Normal inspection. Neck supple. CVS: Normal heart rate and rhythm. Pulses normal. Respiratory: No respiratory distress. Equal air entry bilateral, no wheezing/rales/rhonchi Abdomen: Soft and nontender. Bowel sounds are present, no mass palpable, no CVA tenderness Skin: Skin warm and dry. Normal skin color. Normal skin turgor. Extremities: No lower extremity edema. No calf tenderness Neuro: Oriented X 3. No motor deficit. No sensory deficit.No cerebellar signs , cranial nerves II-XII intact patient walks with steady gait Medical Decision Making Medical Decision Making MDM Narrative: Patient with colic noncompliant to detox been multiple times for same, advised him to go to detox as outpatient Discharge Plan Discharge Clinical Impression: Alcohol abuse Patient Disposition: Home, Self-Care Instructions: Abuse of Alcohol (ED) Additional Instructions: Soft drinking alcohol Follow-up with detox Prescriptions: No Action Combivent Respimat 20-100 mcg/actuation mist 1 puff inhalation QID Eliquis 5 mg tablet 5 mg PO BID 30 Days Qty: 60 0RF albuterol sulfate 90 mcg/actuation HFA aerosol inhaler 1 inh inhalation QID PRN (Reason: shortness of breath or wheezing) Qty: 8.5 0RF amoxicillin-pot clavulanate 875-125 mg tablet 1 tab PO BID 7 Days Qty: 14 0RF docusate sodium 100 mg tablet 100 mg PO BID PRN (Reason: constipation) Eliquis 5 mg tablet 5 mg PO BID Qty: 60 0RF
--- NOTE | 2022-07-19 17:54 | PC.NURSE ---
pt irritable, yelling about being in the hallway. ambulating with a steady gait.
== END 2022-07-19 18:04 | disposition home or self-care (01) ==
PROVIDERS: Emergency Provider Internal Medicine; PCP Internal Medicine
DX: F10.10 Alcohol abuse, uncomplicated (principal); Y90.9 Presence of alcohol in blood, level not specified; R94.31 Abnormal electrocardiogram [ECG] [EKG]; F17.210 Nicotine dependence, cigarettes, uncomplicated; Z71.6 Tobacco abuse counseling; Z91.199 Patient's noncompliance with other medical treatment and regimen due to unspecified reason; Z79.899 Other long term (current) drug therapy
CPT/HCPCS: 93005; 99284

== ENCOUNTER 2022-08-29 21:01 | Emergency (ER) | payer OTHER, SELFPAY ==
[2022-08-29 21:07] VITALS: BMI 21.4
--- OUTSIDE RECORDS SUMMARY | 2022-08-29 21:16 | XMS_ITS | Continuity of Care Document ---
Author
[2022-08-29 21:31] VITALS: BP 117/70; PULSE 84; RESP 17; TEMP 36.3; O2SAT 92
--- NOTE | 2022-08-29 23:40 | ED.ALCOHOL ---
HPI - Alcohol General Chief Complaint: ETOH/Substance Use Stated Complaint: ETOH Time Seen by Provider: 08/29/22 21:10 Source: patient and EMS Mode of arrival: EMS Limitations: no limitations History of Present Illness HPI narrative: 62-year-old male presents with alcohol abuse. Patient drinks daily about a pt of hard alcohol per day. Patient was in detox as recently as 1 month ago. Patient denies any suicidal homicidal ideation. Presents for assistance with his alcohol addiction. Patient does not clearly understand any relieving or exacerbating symptoms. The symptoms are described as severe. He does have some associated anxiety and depression. Patient denies any additional drug abuse. Denies any self-harming behavior. Related Data Home Medications Medication Instructions Recorded Confirmed albuterol sulfate 90 mcg/actuation 1 puff inhalation QID PRN 08/29/22 08/29/22 aerosol inhaler Shortness Of Breath Or Wheezing apixaban 5 mg tablet (Eliquis) 5 mg PO BID 08/29/22 08/29/22 docusate sodium 100 mg capsule 100 mg PO DAILY 08/29/22 08/29/22 gabapentin 300 mg capsule 300 mg PO BID 08/29/22 08/29/22 ipratropium 20 mcg-albuterol 100 1 puff inhalation QID 08/29/22 08/29/22 mcg/actuation mist for inhalation (Combivent Respimat) naltrexone 50 mg tablet 50 mg PO BID 08/29/22 08/29/22 Allergies Allergy/AdvReac Type Severity Reaction Status Date / Time Peanut Butter Allergy Facial Verified 06/01/22 11:07 Swelling raspberry Allergy Facial Verified 06/01/22 11:07 Swelling Review of Systems Review of Systems: CONSTITUTIONAL: Denies weight loss, fever and chills. HEENT: Denies changes in vision and hearing. RESPIRATORY: Denies SOB and cough. CV: Denies palpitations no CP. GI: Denies abdominal pain, nausea, vomiting and diarrhea. : Denies dysuria and urinary frequency. MSK: Denies myalgia and joint pain. SKIN: Denies rash and pruritus. NEUROLOGICAL: Denies headache and syncope. PSYCHIATRIC: Denies recent changes in mood. Positive anxiety and depression. All other ROS are negative unless in HPI PMFSH Past Medical History Medical History Acute and chronic respiratory failure with hypoxia Alcohol abuse Alcohol use disorder, severe, dependence Asthma COPD (chronic obstructive pulmonary disease) COPD (chronic obstructive pulmonary disease) DVT (deep venous thrombosis) Neuropathy Subdural hematoma Tobacco abuse Social History Social History Household Members: None Housing: House Do you presently have visiting nurse or other home services: No Alcohol intake: current Alcohol intake frequency: 3 or more drinks per day Alcohol type: hard liquor Patient Tobacco Use Status: Current everyday Tobacco user Tobacco use type: Cigarette Cigarette Packs Per Day: 1 Cigarettes Per Day: 20.0 e-Cigarette/Vaping Use: Never Used Second Hand Smoke Exposure: No Substance Use Type: Marijuana Advance Directives: Yes Advance Directives on File: Yes Advance Directives Date on File: 03/05/22 service: No Current occupational status: disabled Physical Exam ED Vital Signs: Vital Signs - 24 hr 08/29/22 21:31 Temperature 97.3 F Pulse Rate 84 Respiratory Rate 17 Blood Pressure 117/70 Pulse Oximetry 92 Oxygen Delivery Method Room Air BMI result Body Mass Index 21.4 GEN: Well developed, no acute distress, alert, oriented HEENT: Normocephalic, atraumatic, normal external ears, nose appears normal, no oropharyngeal edema or exudates Eyes: Normal to appearance Neck: Supple, no lymphadenopathy Respiratory: Talks in complete sentences, no respiratory distress, clear to auscultation bilaterally Cardiovascular: Regular rate and rhythm, no murmurs rubs or gallops Abdomen: Soft, nontender, nondistended, no guarding, no rebound Back: No CVA tenderness Extremities: No clubbing cyanosis or edema Neurologic: No focal neurologic deficits, cranial nerves 2-12 intact, strength is 5/5 bilaterally Skin: No rash Course Course Course Narrative: Patient presents with alcohol intoxication requesting detox. He is not suicidal homicidal. He is medically cleared pending sobriety for further evaluation. Patient will be placed in physician observation at this time. It is 1143 at night. Reevaluation(s) Reevaluation #1: Patient will be signed out to the oncoming provider at 7:00 a.m.. Patient is pending care team evaluation Time: 07:00 Medical Decision Making Medical Decision Making MDM Narrative: 62-year-old male presents with alcohol intoxication requesting detox. Patient has a history of alcohol abuse. He has been to detox. He is requesting assistance with his alcohol abuse. Differential diagnosis includes substance abuse, alcohol intoxication, polysubstance abuse, depression, anxiety, adjustment disorder, personality disorder. Plan will be to medically clear the patient. I will order care team evaluation. As patient is not suicidal homicidal, should he wish to be discharged, pending sobriety, patient may be discharged at that time. Differential Diagnosis Differential Diagnoses: The differential diagnosis associated with the presentation includes (See above) Admission/Observation Consideration of admission/observation: Escalation of care including admission/observation considered Consult Healthcare Provider Management of the patient was discussed with: Behavioral Health Provider Lab Data MDM Lab Attestation statement: I reviewed the patient's lab results. 08/29/22 23:15 08/29/22 23:15 Labs: Lab Results 08/29/22 08/29/22 08/30/22 Range/Units 23:15 23:15 04:33 WBC 4.7 L (4.8-10.8) X10*3/uL RBC 4.28 L (4.60-5.80) X10*6/uL Hgb 12.3 L (14.0-18.0) g/dl Hct 37.3 L (42.0-52.0) % MCV 87.1 (80.0-98.0) fL MCH 28.7 (27.0-33.0) pg MCHC 33.0 (31.0-36.0) g/dl RDW 15.4 (11.0-16.0) % Plt Count 212 D (160-400) X10*3/uL MPV 9.2 L (9.4-12.4) fL Immature Gran % (Auto) 0.2 (0.0-0.4) % Neut % (Auto) 43.4 L (45-73) % Lymph % (Auto) 38.9 (20-40) % [place] % (Auto) 13.6 H (2-11) % Eos % (Auto) 2.8 (0-4) % Baso % (Auto) 1.1 (0-2) % Lymph # (Auto) 1.8 (1.2-4.9) X10*3/uL [place] # (Auto) 0.6 (0.1-1.2) X10*3/uL Eos # (Auto) 0.1 (0.0-0.4) X10*3/uL Baso # (Auto) 0.1 (0.0-0.2) X10*3/uL Abs Immat Gran (auto) 0.01 (0.00-0.03) X10*3/uL Absolute Neuts (auto) 2.1 (2.0-8.3) x10*3/uL Absolute Nucleated RBC 0.000 (0.0-0.012) X10*3/uL Nucleated RBC % (auto) 0.0 (0.0-0.2) /100WBC Sodium 146 H (135-145) mmol/L Potassium 5.0 D (3.3-5.1) mmol/L Chloride 108 (96-108) mmol/L Carbon Dioxide 25 (22-29) mmol/L Anion Gap 18 (12-20) BUN 17 H (9-16) mg/dL Creatinine 0.88 (0.5-1.4) mg/dL Estim Creat Clear Calc 80.9 Estimated GFR > 60 Random Glucose 91 (60-115) mg/dL Calcium 9.2 D (8.4-10.2) mg/dL Total Bilirubin 0.3 (0.0-1.0) mg/dL AST 25 (5-37) U/L ALT 18 (0-40) U/L Alkaline Phosphatase 97 (39-117) U/L Total Protein 7.9 (6.5-8.0) g/dL Albumin 4.2 (3.5-5.0) g/dL Urine Color Dark Yellow Urine Appearance Clear Urine pH 5.5 (5.0-9.0) Ur Specific Witter 1.025 (1.005-1.025) Urine Protein Trace (Neg-Trace) mg/dL Urine Glucose (UA) Negative (Negative) mg/dL Urine Ketones Trace (Negative) mg/dL Urine Blood Negative (Negative) Urine Nitrite Negative (Negative) Ur Leukocyte Esterase Negative (Negative) Urine Opiates Screen (Not Detect) Urine Fentanyl Screen (Not Detect) Ur Barbiturates Screen (Not Detect) Ur Phencyclidine Scrn (Not Detect) Ur Amphetamines Screen (Not Detect) U Benzodiazepines Scrn (Not Detect) Urine Cocaine Screen (Not Detect) U Marijuana (THC) Screen (Not Detect) Ethyl Alcohol 245 mg/dL 08/30/22 Range/Units 04:33 WBC (4.8-10.8) X10*3/uL RBC (4.60-5.80) X10*6/uL Hgb (14.0-18.0) g/dl Hct (42.0-52.0) % MCV (80.0-98.0) fL MCH (27.0-33.0) pg MCHC (31.0-36.0) g/dl RDW (11.0-16.0) % Plt Count (160-400) X10*3/uL MPV (9.4-12.4) fL Immature Gran % (Auto) (0.0-0.4) % Neut % (Auto) (45-73) % Lymph % (Auto) (20-40) % [place] % (Auto) (2-11) % Eos % (Auto) (0-4) % Baso % (Auto) (0-2) % Lymph # (Auto) (1.2-4.9) X10*3/uL [place] # (Auto) (0.1-1.2) X10*3/uL Eos # (Auto) (0.0-0.4) X10*3/uL Baso # (Auto) (0.0-0.2) X10*3/uL Abs Immat Gran (auto) (0.00-0.03) X10*3/uL Absolute Neuts (auto) (2.0-8.3) x10*3/uL Absolute Nucleated RBC (0.0-0.012) X10*3/uL Nucleated RBC % (auto) (0.0-0.2) /100WBC Sodium (135-145) mmol/L Potassium (3.3-5.1) mmol/L Chloride (96-108) mmol/L Carbon Dioxide (22-29) mmol/L Anion Gap (12-20) BUN (9-16) mg/dL Creatinine (0.5-1.4) mg/dL Estim Creat Clear Calc Estimated GFR Random Glucose (60-115) mg/dL Calcium (8.4-10.2) mg/dL Total Bilirubin (0.0-1.0) mg/dL AST (5-37) U/L ALT (0-40) U/L Alkaline Phosphatase (39-117) U/L Total Protein (6.5-8.0) g/dL Albumin (3.5-5.0) g/dL Urine Color Urine Appearance Urine pH (5.0-9.0) Ur Specific Witter (1.005-1.025) Urine Protein (Neg-Trace) mg/dL Urine Glucose (UA) (Negative) mg/dL Urine Ketones (Negative) mg/dL Urine Blood (Negative) Urine Nitrite (Negative) Ur Leukocyte Esterase (Negative) Urine Opiates Screen Not Detected (Not Detect) Urine Fentanyl Screen Not Detected (Not Detect) Ur Barbiturates Screen Not Detected (Not Detect) Ur Phencyclidine Scrn Not Detected (Not Detect) Ur Amphetamines Screen Not Detected (Not Detect) U Benzodiazepines Scrn Not Detected (Not Detect) Urine Cocaine Screen Not Detected (Not Detect) U Marijuana (THC) Screen Not Detected (Not Detect) Ethyl Alcohol mg/dL Independent Historian Clinical information obtained from an independent historian. History obtained from or confirmed by: EMS Prescription Management I considered prescription management with: Other (Anxiety medication) Discharge Plan Discharge Clinical Impression: Alcoholic intoxication, Alcohol abuse Patient Disposition: Still a Patient Instructions: Alcohol Intoxication (ED), Abuse of Alcohol (DC) Prescriptions: No Action naltrexone 50 mg tablet 50 mg PO BID docusate sodium 100 mg capsule 100 mg PO DAILY gabapentin 300 mg capsule 300 mg PO BID albuterol sulfate 90 mcg/actuation HFA aerosol inhaler 1 puff inhalation QID PRN (Reason: Shortness Of Breath Or Wheezing) Eliquis 5 mg tablet 5 mg PO BID Combivent Respimat 20-100 mcg/actuation mist 1 puff inhalation QID Referrals: Physician,Unknown J [Primary Care Provider] - (Primary care provider)
[2022-08-30 04:40] LABS: Appearance Urine Clear; Color Urine Dark Yellow; Glucose Urine UA Negative (Negative); Leukocyte Esterase Urine Negative (Negative); Nitrite Urine Negative (Negative); PH 5.5 (5.0-9.0); Specific Gravity - Urine 1.025 (1.005-1.025); Urine Blood Negative (Negative); Urine Ketones Trace mg/dL (Negative); Urine Protein Trace mg/dL (Neg-Trace)
--- NOTE | 2022-08-30 05:11 | PC.NURSE ---
Patient slept most part of the night, no distress observed/reported, care consult ordered pending evaluation, med rec completed, pending provider's approval, behavior non concerning, asymptomatic of withdrawal, VSS, will continue to monitor.
[2022-08-30 06:27] VITALS: BP 107/68; PULSE 90; RESP 17; TEMP 36.8; O2SAT 96
--- NOTE | 2022-08-30 07:38 | PHA.MEDREC ---
Pharmacy Consult ? Medication Reconciliation Pharmacy has reviewed the medication reconciliation done [email or web address].
--- NOTE | 2022-08-30 08:49 | PC.NURSE ---
pt ate a small amt of breakfast and then shortly after complained of throat tightening, similar to when he has peanut butter or violeta, no hives, throat unremarkable, states benadryl works well when this happens, no sob, medicated as ordered, pt just got out of detox and drank 1 day and ended up here, ativan given for mild withdrawal symptoms, steady gait to bathroom
--- NOTE | 2022-08-30 09:37 | PC.NURSE ---
denies si, throat feels a little better but tightness still present, skin wpd, no hives, nad
--- NOTE | 2022-08-30 11:06 | PC.NURSE ---
alert, speech clear, states his throat feels fine now, no complaints, laying in bed w nad
--- NOTE | 2022-08-30 11:35 | MHC.RECOVRN ---
This creative writer met with patient, patient requesting detox. Pt was resting in bed, awake to verbal command. Pt reports recent ATS admission, pt unsure of timeline for admission. Pt reports has been drinking at least 2 pints daily . Pt requesting detox. Reviewed ATS referral process, pt verbalized understanding. ATS referral sent to [facility], reviewed, [facility] request pt admit with eliquis/inhaler rx. ED Provider Dr. Hill aware, willing to send med. This creative writer waiting on reply from [facility] related to pharmacy used for rx to be sent.
--- NOTE | 2022-08-30 13:40 | PC.NURSE ---
denies need for resp treatment, no sob, nad, awaiting word from power and recovery supervisor as pt will be going to detox
--- NOTE | 2022-08-30 14:22 | MHC.RECOVRN ---
Pt denied from [facility] direct admission from ED. BRITNEY Werner states, rx not accepted at this time from ED Provider, pt must present with meds in hand. Recommended, pt to [facility], pt to present to [facility] today with medications in hand. ED Provider Dr. Hill aware of plan. Patient verbalized understanding, agreeable to plan of care.
== END 2022-08-30 15:38 | disposition home or self-care (01) ==
PROVIDERS: Emergency Medicine; Emergency Provider Emergency Medicine Emergency Medical Services
DX: R45.851 Suicidal ideations (principal); F10.220 Alcohol dependence with intoxication, uncomplicated; Y90.8 Blood alcohol level of 240 mg/100 ml or more; F17.210 Nicotine dependence, cigarettes, uncomplicated; Z86.718 Personal history of other venous thrombosis and embolism; Z79.01 Long term (current) use of anticoagulants; Z79.899 Other long term (current) drug therapy
CPT/HCPCS: 36415; 80053; 80307; 81003; 85025; 99284

== ENCOUNTER 2022-08-31 18:11 | Emergency (ER) | payer OTHER, SELFPAY ==
[2022-08-31 18:22] VITALS: BP 121/66; BP 141/90; PULSE 70; PULSE 88; RESP 18; TEMP 36.6; O2SAT 96; BMI 22.0
--- NOTE | 2022-08-31 18:25 | ED.ALCOHOL ---
HPI - Alcohol General Chief Complaint: ETOH/Substance Use Stated Complaint: detox Time Seen by Provider: 08/31/22 18:23 Source: patient Mode of arrival: EMS Limitations: no limitations History of Present Illness HPI narrative: Patient alcoholic adjustment to detox on 08/29 [place] [facility] discharge himself as he did in wanted his own place comes here as he wants to go to detox again had few drinks clinically not intoxicated ambulatory in steady gait Related Data Home Medications Medication Instructions Recorded Confirmed albuterol sulfate 90 mcg/actuation 1 puff inhalation QID PRN 08/29/22 08/29/22 aerosol inhaler Shortness Of Breath Or Wheezing apixaban 5 mg tablet (Eliquis) 5 mg PO BID 08/29/22 08/29/22 docusate sodium 100 mg capsule 100 mg PO DAILY 08/29/22 08/29/22 gabapentin 300 mg capsule 300 mg PO BID 08/29/22 08/29/22 ipratropium 20 mcg-albuterol 100 1 puff inhalation QID 08/29/22 08/29/22 mcg/actuation mist for inhalation (Combivent Respimat) naltrexone 50 mg tablet 50 mg PO BID 08/29/22 08/29/22 Allergies Allergy/AdvReac Type Severity Reaction Status Date / Time Peanut Butter Allergy Facial Verified 06/01/22 11:07 Swelling raspberry Allergy Facial Verified 06/01/22 11:07 Swelling Review of Systems Review of Systems: Yes all other systems are reviewed and are negative PMFSH Past Medical History Medical History Acute and chronic respiratory failure with hypoxia Alcohol abuse Alcohol use disorder, severe, dependence Asthma COPD (chronic obstructive pulmonary disease) COPD (chronic obstructive pulmonary disease) DVT (deep venous thrombosis) Neuropathy Subdural hematoma Tobacco abuse Social History Social History Household Members: None Housing: House Do you presently have visiting nurse or other home services: No Alcohol intake: current Alcohol intake frequency: 3 or more drinks per day Alcohol type: hard liquor Patient Tobacco Use Status: Current everyday Tobacco user Tobacco use type: Cigarette Cigarette Packs Per Day: 1 Cigarettes Per Day: 20.0 e-Cigarette/Vaping Use: Never Used Second Hand Smoke Exposure: No Substance Use Type: Marijuana Advance Directives: Yes Advance Directives on File: Yes Advance Directives Date on File: 03/05/22 service: No Current occupational status: disabled Physical Exam ED Vital Signs: Vital Signs - 24 hr 08/31/22 18:22 Temperature 97.9 F Pulse Rate 70 Respiratory Rate 18 Blood Pressure 141/90 H Pulse Oximetry 96 Oxygen Delivery Method Room Air BMI result Body Mass Index 22.0 Appearance: Alert. Oriented X3. No acute distress. Eyes: PERRLA, No Nystagmus ENT: Pharynx normal. Oral Mucosa moist Neck: Normal inspection. Neck supple. CVS: Normal heart rate and rhythm. Pulses normal. Respiratory: No respiratory distress. Equal air entry bilateral, no wheezing/rales/rhonchi Abdomen: Soft and nontender. Bowel sounds are present, no mass palpable, no CVA tenderness Skin: Skin warm and dry. Normal skin color. Normal skin turgor. Extremities: No lower extremity edema. No calf tenderness Neuro: Oriented X 3. No motor deficit. No sensory deficit.No cerebellar signs , cranial nerves II-XII intact steady gait Medical Decision Making Medical Decision Making MDM Narrative: Patient with alcohol dependence going to different detox places does not want to stay in longer clinically stable would like to call detox places of his own by CT images chart patient home Discharge Plan Discharge Clinical Impression: Alcohol abuse Patient Disposition: Home, Self-Care Instructions: Abuse of Alcohol (ED) Additional Instructions: Follow-up with detox as the patient , information as provided Prescriptions: No Action naltrexone 50 mg tablet 50 mg PO BID docusate sodium 100 mg capsule 100 mg PO DAILY gabapentin 300 mg capsule 300 mg PO BID albuterol sulfate 90 mcg/actuation HFA aerosol inhaler 1 puff inhalation QID PRN (Reason: Shortness Of Breath Or Wheezing) Eliquis 5 mg tablet 5 mg PO BID Combivent Respimat 20-100 mcg/actuation mist 1 puff inhalation QID
--- NOTE | 2022-08-31 18:44 | MHC.RECOVSUP ---
? Reason for consult Recovery Support o Current location: ED22 o Identified substance use concern: Alcohol - Seeking ATS (detox) - Support ? Intervention: o Harm reduction discussion ? Plan: o Patient to follow up with [facility] after discharge ? Additional information: Patient seeking detox but does not want to wait.. No bed at the moment...
== END 2022-08-31 19:53 | disposition home or self-care (01) ==
PROVIDERS: Emergency Provider Internal Medicine
DX: F10.10 Alcohol abuse, uncomplicated (principal); Y90.9 Presence of alcohol in blood, level not specified; F17.210 Nicotine dependence, cigarettes, uncomplicated; F12.90 Cannabis use, unspecified, uncomplicated; Z86.718 Personal history of other venous thrombosis and embolism; Z79.01 Long term (current) use of anticoagulants; Z79.899 Other long term (current) drug therapy
CPT/HCPCS: 99282

== ENCOUNTER 2022-09-08 03:13 | Emergency (ER) | payer OTHER, SELFPAY ==
[2022-09-08 03:20] VITALS: BP 94/54; PULSE 98; RESP 17; TEMP 36.6; O2SAT 94; BMI 21.4
--- NOTE | 2022-09-08 03:33 | PC.NURSE ---
Pt changed over to hospital attire. Belongings placed in locker #9.
--- NOTE | 2022-09-08 03:47 | PC.NURSE ---
Pt placed on 2L per NC. States he has a hx of COPD.
[2022-09-08 05:10] LABS: Hemoglobin 12.2 g/dl (14.0-18.0); Imm Gran Abs Auto 0.02 X10*3/uL (0.00-0.03); Imm Gran Pct Auto 0.4 % (0.0-0.4); MANUAL DIFF FLAG SCAN; Mean Corpuscular Hemoglobin 28.8 pg (27.0-33.0); Mean Corpuscular Volume 85.6 fL (80.0-98.0); Neutrophils Absolute Auto 2.2 x10*3/uL (2.0-8.3); PLT CLUMP 1; Red Cell Distribution Width 15.3 % (11.0-16.0); SCAN SMEAR FLAG 1
[2022-09-08 05:11] LABS: Basophils Percent Auto 0.9 % (0-2); Eosinophils Absolute Auto 0.1 X10*3/uL (0.0-0.4); Eosinophils Percent Auto 2.2 % (0-4); Hematocrit 36.3 % (42.0-52.0); Lymphocytes Absolute Auto 1.7 X10*3/uL (1.2-4.9); Lymphocytes Percent Auto 36.1 % (20-40); Mean Corpuscular HGB Conc 33.6 g/dl (31.0-36.0); Mean Platelet Volume 9.8 fL (9.4-12.4); Monocytes Absolute Auto 0.6 X10*3/uL (0.1-1.2); Monocytes Percent Auto 11.9 % (2-11); Neutrophils Percent Auto 48.5 % (45-73); Red Blood Count 4.24 X10*6/uL (4.60-5.80)
[2022-09-08 05:19] LABS: INTERNATIONAL NORM RATIO 1.1 (0.9-1.1); Prothrombin Time 12.3 SEC (10.0-13.1)
[2022-09-08 05:23] LABS: Alanine Aminotransferase 25 U/L (0-40); Albumin Level 4.1 g/dL (3.5-5.0); Alkaline Phosphatase 99 U/L (39-117); Anion Gap 19 (12-20); Aspartate Amino Transferase 46 U/L (5-37); Bilirubin Total 0.7 mg/dL (0.0-1.0); Blood Urea Nitrogen 10 mg/dL (9-16); Calcium 9.4 mg/dL (8.4-10.2); Carbon Dioxide 24 mmol/L (22-29); Chloride 100 mmol/L (96-108); Creatinine Clr Calc Pharmacy 69.8; Estimated Glomerular Filt Rate > 60; Ethanol 287 mg/dL; Glucose Random 102 mg/dL (60-115); Potassium 3.3 mmol/L (3.3-5.1); Sodium 140 mmol/L (135-145); Total Protein 7.3 g/dL (6.5-8.0)
[2022-09-08 05:29] LABS: White Blood Count 4.6 X10*3/uL (4.8-10.8)
[2022-09-08 05:30] LABS: Platelet Count 93 X10*3/uL (160-400)
[2022-09-08 05:31] LABS: SLIDE REVIEW VERIFIED
--- NOTE | 2022-09-08 05:47 | ED_ITS ---
HPI - Alcohol General Chief Complaint: ETOH/Substance Use Stated Complaint: etoh Time Seen by Provider: 09/08/22 04:22 Source: patient and EMS Mode of arrival: EMS History of Present Illness HPI narrative: 62-year-old male with history of COPD on nasal cannula at baseline called EMS for alcohol intoxication and is requesting detox at this time in states he is dehydrated. He otherwise reports diarrhea yesterday but denies any fever, chi lls, nausea, vomiting. Related Data Home Medications Medication Instructions Recorded Confirmed albuterol sulfate 90 mcg/actuation 1 puff inhalation QID PRN 08/29/22 08/29/22 aerosol inhaler Shortness Of Breath Or Wheezing apixaban 5 mg tablet (Eliquis) 5 mg PO BID 08/29/22 08/29/22 docusate sodium 100 mg capsule 100 mg PO DAILY 08/29/22 08/29/22 gabapentin 300 mg capsule 300 mg PO BID 08/29/22 08/29/22 ipratropium 20 mcg-albuterol 100 1 puff inhalation QID 08/29/22 08/29/22 mcg/actuation mist for inhalation (Combivent Respimat) naltrexone 50 mg tablet 50 mg PO BID 08/29/22 08/29/22 Allergies Allergy/AdvReac Type Severity Reaction Status Date / Time Peanut Butter Allergy Facial Verified 09/08/22 03:20 Swelling raspberry Allergy Facial Verified 09/08/22 03:20 Swelling Review of Systems Review of Systems: Hensel positives and negatives as stated in HPI PMFSH Past Medical History Source: nursing notes reviewed Medical History Acute and chronic respiratory failure with hypoxia Alcohol abuse Alcohol use disorder, severe, dependence Asthma COPD (chronic obstructive pulmonary disease) COPD (chronic obstructive pulmonary disease) DVT (deep venous thrombosis) Neuropathy Subdural hematoma Tobacco abuse Social History Social History Household Members: None Housing: House Do you presently have visiting nurse or other home services: No Alcohol intake: current Alcohol intake frequency: 3 or more drinks per day Alcohol type: hard liquor Patient Tobacco Use Status: Current everyday Tobacco user Tobacco use type: Cigarette Cigarette Packs Per Day: 1 Cigarettes Per Day: 20.0 e-Cigarette/Vaping Use: Never Used Second Hand Smoke Exposure: No Substance Use Type: Marijuana Advance Directives: Yes Advance Directives on File: Yes Advance Directives Date on File: 03/05/22 service: No Current occupational status: disabled Physical Exam ED Vital Signs: Vital Signs - 24 hr 09/08/22 03:20 Temperature 98 F Pulse Rate 98 Respiratory Rate 17 Blood Pressure 94/54 L Pulse Oximetry 94 Oxygen Delivery Method Room Air BMI result Body Mass Index 21.4 VITAL SIGNS: Reviewed. GENERAL: Well developed, well nourished, in no acute distress. HEAD: Normocephalic/atraumatic EYES: PERRLA, EOMI EARS: Ext canals without abnormality NOSE: Nares patent bilateral OROPHARYNX: no oral lesions noted, posterior pharynx clear NECK: Supple, no adenopathy LUNGS: Normal breath sounds. No adventitious sounds or accessory muscle use. SpO 2<94> on 2 L nasal cannula at baseline CARDIOVASCULAR: Regular rate and rhythm without noted murmurs ABDOMEN: Soft, non-tender, non-distended with bowel sounds. MUSCULOSKELETAL: No tenderness, deformities, or effusions noted on gross inspection. EXTREMITIES: No cyanosis, clubbing or edema. SKIN: Inspection of the skin reveals no rashes NEUROLOGIC: Alert and oriented x 4. Strength and sensation to light touch were grossly intact x 4. Medical Decision Making Medical Decision Making [facility] Narrative: 62-year-old male with history and clinical presentation consistent with alcohol intoxication and known alcohol use disorder who is currently requesting detox. Patient is chronically reliant on supplemental oxygen via nasal cannula. Will proceed with medical clearance and then can be evaluated for alcohol detox. I reviewed all investigations and hematologic indices are chronically stable with exception of a slight dip in the platelet count to 93. Chemistry indices are grossly within normal limits. And patient is tolerating oral intake at this time. Patient placed in physician observation because the patient needed more time for evaluation by the care team for alcohol detox. At the time observation was started the patient's vital signs were stable, patient is alert and oriented, ne uro: Nonfocal, CV RRR, lungs clear Differential Diagnosis Differential Diagnoses: The differential diagnosis associated with the presentat ion includes Please see the discussion above Admission/Observation Consideration of admission/observation: Escalation of care including admission/observation considered Lab Data [facility] Lab Attestation statement: I reviewed the patient's lab results. Please see the discussion above 09/08/22 05:04 09/08/22 05:04 Labs: Lab Results 09/08/22 09/08/22 09/08/22 Range/Units 05:04 05:04 05:04 WBC 4.6 L (4.8-10.8) X10*3/uL RBC 4.24 L (4.60-5.80) X10*6/uL Hgb 12.2 L (14.0-18.0) g/dl Hct 36.3 L (42.0-52.0) % MCV 85.6 (80.0-98.0) fL MCH 28.8 (27.0-33.0) pg MCHC 33.6 (31.0-36.0) g/dl RDW 15.3 (11.0-16.0) % Plt Count 93 L D (160-400) X10*3/uL MPV 9.8 (9.4-12.4) fL Immature Gran % (Auto) 0.4 (0.0-0.4) % Neut % (Auto) 48.5 (45-73) % Lymph % (Auto) 36.1 (20-40) % [place] % (Auto) 11.9 H (2-11) % Eos % (Auto) 2.2 (0-4) % Baso % (Auto) 0.9 (0-2) % Lymph # (Auto) 1.7 (1.2-4.9) X10*3/uL [place] # (Auto) 0.6 (0.1-1.2) X10*3/uL Eos # (Auto) 0.1 (0.0-0.4) X10*3/uL Baso # (Auto) 0.0 (0.0-0.2) X10*3/uL Abs Immat Gran (auto) 0.02 (0.00-0.03) X10*3/uL Absolute Neuts (auto) 2.2 (2.0-8.3) x10*3/uL Absolute Nucleated RBC 0.000 (0.0-0.012) X10*3/uL Nucleated RBC % (auto) 0.0 (0.0-0.2) /100WBC Smear Tech's Comments VERIFIED PT 12.3 (10.0-13.1) SEC INR 1.1 (0.9-1.1) Sodium 140 (135-145) mmol/L Potassium 3.3 D (3.3-5.1) mmol/L Chloride 100 (96-108) mmol/L Carbon Dioxide 24 (22-29) mmol/L Anion Gap 19 (12-20) BUN 10 (9-16) mg/dL Creatinine 1.02 (0.5-1.4) mg/dL Estim Creat Clear Calc 69.8 Estimated GFR > 60 Random Glucose 102 (60-115) mg/dL Calcium 9.4 (8.4-10.2) mg/dL Total Bilirubin 0.7 (0.0-1.0) mg/dL AST 46 H (5-37) U/L ALT 25 (0-40) U/L Alkaline Phosphatase 99 (39-117) U/L Total Protein 7.3 (6.5-8.0) g/dL Albumin 4.1 (3.5-5.0) g/dL Ethyl Alcohol 287 mg/dL External Record Review External record reviewed: Outpatient record and Prior outpatient labs Discharge Plan Discharge Clinical Impression: Alcohol abuse, Alcoholic intoxication Patient Disposition: Still a Patient Prescriptions: No Action naltrexone 50 mg tablet 50 mg PO BID docusate sodium 100 mg capsule 100 mg PO DAILY gabapentin 300 mg capsule 300 mg PO BID albuterol sulfate 90 mcg/actuation HFA aerosol inhaler 1 puff inhalation QID PRN (Reason: Shortness Of Breath Or Wheezing) Eliquis 5 mg tablet 5 mg PO BID Combivent Respimat 20-100 mcg/actuation mist 1 puff inhalation QID
--- NOTE | 2022-09-08 06:09 | PC.NURSE ---
Pt states he wants to be discharged.Provider made aware.
--- NOTE | 2022-09-08 06:33 | PC.NURSE ---
Pt belongings given back to pt at this time.
[2022-09-08 06:51] VITALS: BP 98/62; PULSE 90; RESP 17; O2SAT 95
== END 2022-09-08 06:52 | disposition home or self-care (01) ==
PROVIDERS: Emergency Provider Student in an Organized Health Care Education/Training Program
DX: F10.120 Alcohol abuse with intoxication, uncomplicated (principal); Y90.8 Blood alcohol level of 240 mg/100 ml or more; F17.210 Nicotine dependence, cigarettes, uncomplicated; Z86.718 Personal history of other venous thrombosis and embolism; Z79.899 Other long term (current) drug therapy; Z79.01 Long term (current) use of anticoagulants
CPT/HCPCS: 36415; 80053; 80307; 85025; 85610; 99283; 99284

== ENCOUNTER 2022-09-10 11:58 | Emergency (ER) | payer OTHER, SELFPAY ==
--- NOTE | ~2022-09-10 | XR_ITS ---
EXAMINATION: XR HAND, RIGHT CLINICAL INFORMATION: Right fifth digit pain. COMPARISON: None available. TECHNIQUE: PA, lateral, and oblique views of the right hand. Indicator arrow points to the distal phalanx of the fifth digit. FINDINGS: The phalanges of the fifth digit appear intact. There is mild surrounding soft tissue swelling. No radiopaque foreign body. The remainder the digits are intact. The carpal bones are normally aligned. The distal radius and ulna are intact. XR/XR hand RT 2V IMPRESSION: Mild soft tissue swelling in the fifth digit without definitive acute underlying osseous abnormality.
[2022-09-10 12:03] VITALS: BP 145/82; PULSE 97; O2SAT 94
[2022-09-10 12:06] VITALS: BP 128/75; PULSE 92; RESP 18; TEMP 36.8; O2SAT 91
[2022-09-10 12:08] VITALS: BMI 21.4
--- NOTE | 2022-09-10 12:18 | MHC.RECOVSUP ---
Addendum entered by Boom Ha 09/10/22 16:41: Pt declined admission to ATS and has decided to go home. Pt was provided with [facility] phone number to follow up from the community if he changes his mind. Addendum entered by Boom Ha 09/10/22 16:00: Pt accepted to [facility] for 9pm admission, [facility] ordered for 8pm. Original Note: Met with pt in ED14 who is here for [facility]. Pt reports drinking about 5 nips a day and would like ATS at this time. ATS bed search in progress.
--- NOTE | 2022-09-10 12:57 | ED_ITS ---
HPI - General Adult General Chief complaint: ETOH/Substance Use Stated complaint: ETOH, requesting detox Time Seen by Provider: 09/10/22 12:56 Source: patient and EMS Mode of arrival: EMS Limitations: no limitations History of Present Illness HPI narrative: Patient is a 62 year old assigned male at with a history of alcohol abuse and tobaccao use presenting to the emergency department today with right 5th fin shade pain and requesting alcohol detox. Patient states that he thinks he smashed his right 5th finger as it is bruised and painful now. Patient states that he would like to go to a facility for detox. Patient denies any dizziness, lightheadedness, abdominal pain, nausea, vomiting, fever, chills, blurry vision, double vision, loss of vision, chest pain, difficulty breathing, shortness of breath, back pain, night sweats, pain with urination, increased urinary frequency, increased urinary urgency, blood in his urine or stool, syncope or a near syncopal episode, bowel incontinence, bladder incontinence, bowel retention, bladder retention, or any other complaints at this time. Severity: mild Severity scale (1-10): 1 Relieving factors: none Exacerbating factors: none Associated symptoms: denies other symptoms Treatments prior to arrival: none Related Data Home Medications Medication Instructions Recorded Confirmed albuterol sulfate 90 mcg/actuation 1 puff inhalation QID PRN 08/29/22 08/29/22 aerosol inhaler Shortness Of Breath Or Wheezing apixaban 5 mg tablet (Eliquis) 5 mg PO BID 08/29/22 08/29/22 docusate sodium 100 mg capsule 100 mg PO DAILY 08/29/22 08/29/22 gabapentin 300 mg capsule 300 mg PO BID 08/29/22 08/29/22 ipratropium 20 mcg-albuterol 100 1 puff inhalation QID 08/29/22 08/29/22 mcg/actuation mist for inhalation (Combivent Respimat) naltrexone 50 mg tablet 50 mg PO BID 08/29/22 08/29/22 Previous Rx's Medication Instructions Recorded apixaban 5 mg tablet (Eliquis) 5 mg PO BID #60 tabs 09/10/22 Allergies Allergy/AdvReac Type Severity Reaction Status Date / Time Peanut Butter Allergy Facial Verified 09/08/22 03:20 Swelling raspberry Allergy Facial Verified 09/08/22 03:20 Swelling Review of Systems Constitutional: Constitutional: Reports no additional constitutional complaints, Denies chills, Denies fever(s) and Denies night sweats Eyes: Eyes: Reports no additional eye complaints, Denies blurry vision, Denies change in vision, Denies diplopia, Denies eye discharge, Denies loss of vision and Denies eye pain ENT: Denies dizziness Cardiovascular: Cardiovascular: Reports no additional cardiovascular complaints, Denies chest pain, Denies lightheadedness, Denies Loss of Consciousness and Denies dyspnea Respiratory: Respiratory: Reports no additional respiratory complaints and Denies dyspnea Gastrointestinal: Gastrointestinal: Reports no additional gastrointestinal complaints, Denies abdominal pain, Denies melena, Denies hematochezia, Denies change in bowel habits and Denies change in stool character Genitourinary: Genitourinary: Reports no additional male genitourinary complaints, Denies hematuria, Denies oliguria, Denies difficulty urinating, Denies dysuria, Denies urinary frequency, Denies urinary hesitancy, Denies urinary incontinence and Denies urinary urgency Musculoskeletal: Musculoskeletal: Reports no additional musculoskeletal complaints, Denies numbness and Denies tingling Comments: right 5th finger pain Neurologic: Denies dizziness, Denies loss of vision, Denies numbness and Denies tingling Psychiatric: Psychiatric: Reports no additional psychiatric complaints Endocrine: Endocrine: Reports no additional endocrine complaints Hematologic/Lymphatic: Hematologic/Lymphatic: Reports no additional hematologic/lymphatic complaints Allergic/Immunologic: Allergic/Immunologic: Reports no additional allergic/immunologic complaints PMFSH Past Medical History Attestation statement: The following information was validated with the patient. Source: old records reviewed and nursing notes reviewed Medical History Acute and chronic respiratory failure with hypoxia Alcohol abuse Alcohol use disorder, severe, dependence Asthma COPD (chronic obstructive pulmonary disease) COPD (chronic obstructive pulmonary disease) DVT (deep venous thrombosis) Neuropathy Subdural hematoma Tobacco abuse Social History Social History Household Members: None Housing: House Do you presently have visiting nurse or other home services: No Alcohol intake: current Alcohol intake frequency: 3 or more drinks per day Alcohol type: hard liquor Patient Tobacco Use Status: Current everyday Tobacco user Tobacco use type: Cigarette Cigarette Packs Per Day: 1 Cigarettes Per Day: 20.0 e-Cigarette/Vaping Use: Never Used Second Hand Smoke Exposure: No Substance Use Type: Marijuana Advance Directives: Yes Advance Directives on File: Yes Advance Directives Date on File: 03/05/22 service: No Current occupational status: disabled Physical Exam ED Vital Signs: Vital Signs - 24 hr 09/10/22 12:06 09/10/22 14:49 Temperature 98.2 F 98.7 F Pulse Rate 92 88 Respiratory Rate 18 16 Blood Pressure 128/75 128/74 Pulse Oximetry 91 L 92 Oxygen Delivery Method Room Air Room Air BMI result Body Mass Index 21.4 Const General: cooperative, no acute distress, alert and awake Nutritional Appearance: well nourished Orientation/consciousness: patient oriented x3 Limitations: no limitations HENMT Head: Yes normal to inspection and Yes atraumatic Ears: hearing grossly normal bilaterally and external ears normal General nose exam: Normal external nose present, no nasal discharge noted and no epistaxis Face and sinus: Yes normal facial exam, No abrasion and No laceration Mouth: Normal oral and palatal mucosa present, no drooling and no muffled voice Eyes General: appearance normal, both eyes and all related structures Periorbital: periorbital findings normal Eyelids: Yes eyelids normal Conjunctivae: conjunctivae normal Pupils: Equal, round and reactive pupils present EOM: EOMs intact bilaterally Neck Neck: Yes normal visual inspection, Yes full ROM and Yes no lymphadenopathy Chest Chest palpation & inspection: normal inspection of the chest Resp Effort & Inspection: normal respiratory effort and able to speak in complete sentences Auscultation: clear to auscultation bilaterally Cardio Rate: regular rate Rhythm: regular rhythm GI Inspection: Yes normal to inspection Neuro General: patient oriented x3 and moves all extremities Cranial nerves: Yes Equal, round and reactive pupils present Cognition (Neuro): normal cognition Motor exam (neuro): 5/5 motor strength present throughout Sensory Exam: Normal double simultaneous stimulation for sensation Coordination: [id number] test normal Extrem Other: minimal bruising to the palmar aspect of the right 5th finger General: Yes full ROM and Yes capillary refill normal Psych Appearance: grossly normal Mental Status: mental status grossly normal Affect: normal affect Attitude: cooperative Thought process: Normal thought process present Thought content: Normal thought content present Insight: Good insight present (Psych) Medical Decision Making Medical Decision Making MDM Narrative: Patient is a 62 year old assigned male at with a history of alcohol abuse and COPD presenting to the emergency department today with right 5th finger pain and requesting detox for alcohol. Patient's physical exam was as noted in the physical exam portion of this chart. Patient's right hand x-ray showed no acute process. I explained my physical exam findings as well as all test results to the patient. I answered all questions asked by the patient. Recovery team met with the patient and got him placed in [facility] detox/rehab. I stressed the importance of the patient taking his medication as prescribed. I stressed the importance of the patient following up with his primary care provider. I stressed the importance of the patient returning to the emergency department immediately if his symptoms were to worsen or if he were to develop any dizziness, shortness of breath, difficulty breathing, chest pain, blurry vision, loss of vision, nausea, vomiting, abdominal pain, fever, chills, back pain, or any other complaints. Patient verbalized agreement and understanding with this treatment plan and discharge to [facility] rehab/detox. Differential Diagnosis Differential Diagnoses: The differential diagnosis associated with the presentation includes Alcohol abuse Right 5th finger pain Right 5th finger sprain Right 5th finger strain Right 5th finger hematoma / contusion Consult Healthcare Provider Management of the patient was discussed with: Behavioral Health Provider (spoke with the recovery team as noted in the MDM portion of this note. ) Independent Interpretation I performed an independent interpretation of an: Plain X-Ray Interpretation: My interpretation is in agreement with the radiologist's impression of this imaging study. EXAMINATION: XR HAND, RIGHT CLINICAL INFORMATION: Right fifth digit pain.? COMPARISON: None available.? TECHNIQUE: PA, lateral, and oblique views of the right hand. Indicator arrow points to the distal phalanx of the fifth digit. FINDINGS: The phalanges of the fifth digit appear intact. There is mild surrounding soft tissue swelling. No radiopaque foreign body. The remainder the digits are intact. The carpal bones are normally aligned. The distal radius and ulna are intact. XR/XR hand RT 2V IMPRESSION: Mild soft tissue swelling in the fifth digit without definitive acute underlying osseous abnormality. Dictated By: Alex Chase MD Signed By: Electronically signed by Alex Chase MD 09/10/22 4279 Radiology Impression Discussion of test interpretation with radiology: I have reviewed the radiologist's reading. Independent Historian Clinical information obtained from an independent historian. History obtained from or confirmed by: EMS (EMS provided additional history and confirmed the history provided by the patient. ) Discharge Plan Discharge Clinical Impression: Alcohol abuse, Finger pain Patient Disposition: Xfer Other Transfer Details: To [facility] detox/rehab. Instructions: Abuse of Alcohol (DC), Contusion in Adults (ED) Additional Instructions: Please proceed to [facility] rehab/detox. Follow up with your primary care provider. Return to the emergency department immediately if your symptoms worsen or if you develop any dizziness, shortness of breath, difficulty breathing, chest pain, blurry vision, loss of vision, nausea, vomiting, abdominal pain, fever, chills, back pain, or any other complaints. Prescriptions: New Eliquis 5 mg tablet 5 mg PO BID Qty: 60 0RF No Action naltrexone 50 mg tablet 50 mg PO BID docusate sodium 100 mg capsule 100 mg PO DAILY gabapentin 300 mg capsule 300 mg PO BID albuterol sulfate 90 mcg/actuation HFA aerosol inhaler 1 puff inhalation QID PRN (Reason: Shortness Of Breath Or Wheezing) Eliquis 5 mg tablet 5 mg PO BID Combivent Respimat 20-100 mcg/actuation mist 1 puff inhalation QID
[2022-09-10 14:49] VITALS: BP 128/74; PULSE 88; RESP 16; TEMP 37.1; O2SAT 92
== END 2022-09-10 16:26 | disposition other institution (70) ==
PROVIDERS: Emergency Provider Emergency Medicine Emergency Medical Services; PCP Internal Medicine
DX: M79.644 Pain in right finger(s) (principal); F17.210 Nicotine dependence, cigarettes, uncomplicated; F10.10 Alcohol abuse, uncomplicated; Y90.9 Presence of alcohol in blood, level not specified; Z71.6 Tobacco abuse counseling; Z79.899 Other long term (current) drug therapy
CPT/HCPCS: 73120; 99283

== ENCOUNTER 2022-09-11 20:46 | Emergency (ER) | payer OTHER, SELFPAY ==
[2022-09-11 21:11] VITALS: BP 108/69; BP 125/75; PULSE 85; PULSE 90; RESP 18; TEMP 36.9; O2SAT 90; O2SAT 98; BMI 22.6
--- NOTE | 2022-09-11 21:25 | PC.NURSE ---
Assumed care of pt. Pt eric poon, no acute distress. Appears and endorses intoxication. Denies SI/HI, plan for security to perform changeover for safety.
--- NOTE | 2022-09-11 21:32 | MHC.RECOVSUP ---
? Reason for consult:ETOH o? Current location:[facility]? o? Identified substance use concern:? -? Seeking ATS (detox) -? Support ? Intervention: o? ATS bed search started/completed/in process o? Community resources provided ? Plan:Detox ? Additional information:RC met with this pt and discussed treatment options, PT stated he'd like to go to detox. [facility] they have no beds available and said to call back tomorrow. Please follow up tomorrow.
[2022-09-11 22:00] VITALS: BP 128/78; PULSE 88; RESP 18; O2SAT 94
--- NOTE | 2022-09-11 23:18 | ED_ITS ---
HPI - Alcohol General Chief Complaint: ETOH/Substance Use Stated Complaint: etoh and withdrawals, per ems Time Seen by Provider: 09/11/22 23:09 Source: patient Mode of arrival: EMS Limitations: no limitations History of Present Illness HPI narrative: Patient comes to the emergency room requesting help with detox. Patient states that earlier today he turned down [facility] but he changed his mind and now he wants to go there. However, there are no beds available. Patient denies suicidal or homicidal ideation. Related Data Home Medications Medication Instructions Recorded Confirmed albuterol sulfate 90 mcg/actuation 1 puff inhalation QID PRN 08/29/22 08/29/22 aerosol inhaler Shortness Of Breath Or Wheezing apixaban 5 mg tablet (Eliquis) 5 mg PO BID 08/29/22 08/29/22 docusate sodium 100 mg capsule 100 mg PO DAILY 08/29/22 08/29/22 gabapentin 300 mg capsule 300 mg PO BID 08/29/22 08/29/22 ipratropium 20 mcg-albuterol 100 1 puff inhalation QID 08/29/22 08/29/22 mcg/actuation mist for inhalation (Combivent Respimat) naltrexone 50 mg tablet 50 mg PO BID 08/29/22 08/29/22 Previous Rx's Medication Instructions Recorded apixaban 5 mg tablet (Eliquis) 5 mg PO BID #60 tabs 09/10/22 Allergies Allergy/AdvReac Type Severity Reaction Status Date / Time Peanut Butter Allergy Facial Verified 09/08/22 03:20 Swelling raspberry Allergy Facial Verified 09/08/22 03:20 Swelling Review of Systems 2 Review of Systems: Constitutional : No Weight loss, No Fever, No Chills, No Night Sweats, No Fatigue, No Malaise ENT/Mouth : No Hearing loss, No Ear Pain, No Nasal Congestion, No Sinus Pain, No Hoarseness, No sore throat, No Rhinorrhea, No Swallowing Difficulty Eyes: No Eye Pain, No Swelling, No Redness, No Foreign Body, No Discharge, No Vision Changes Cardiovascular : No Chest Pain, No SOB, No Dyspnea on Exertion, No Orthopnea, No Edema, No Palpitations Respiratory : No Cough, No Sputum, No Wheezing, No Smoke Exposure, No Dyspnea Gastrointestinal : No Nausea, No Vomiting, No Diarrhea, No Constipation, No abdominal Pain, No Hematochezia, No Melena Genitourinary : no irregular bleeding, No Dysuria, No Urinary Frequency, No Hematuria, No Urinary Incontinence, No Urgency, No Flank Pain, No Urinary Flow Changes, No Hesitancy Musculoskeletal : No joint pain, No Myalgias, No Joint Swelling Skin : No Skin Lesions, No rash Neuro : No Weakness, No Numbness, No Paresthesias, No Loss of Consciousness, No Dizziness, No Headache Psych : No Anxiety/Panic, No Depression, No SI/HI/AH/VH admits to alcohol dependence and abuse Heme/Lymph: No Bruising, No Bleeding,No Lymphadenopathy Endocrine : No Polyuria, No Polydipsia, No Temperature Intolerance PENDING SALE TO [facility] Past Medical History Medical History Acute and chronic respiratory failure with hypoxia Alcohol abuse Alcohol use disorder, severe, dependence Asthma COPD (chronic obstructive pulmonary disease) COPD (chronic obstructive pulmonary disease) DVT (deep venous thrombosis) Neuropathy Subdural hematoma Tobacco abuse Social History Social History Household Members: None Housing: House Do you presently have visiting nurse or other home services: No Alcohol intake: current Alcohol intake frequency: 3 or more drinks per day Alcohol type: hard liquor Patient Tobacco Use Status: Current everyday Tobacco user Tobacco use type: Cigarette Cigarette Packs Per Day: 1 Cigarettes Per Day: 20.0 Smoked in Last 30 Days: Yes e-Cigarette/Vaping Use: Never Used Second Hand Smoke Exposure: No Use of substances other than those prescribed or required for medical reasons: No Substance Use Type: Marijuana Advance Directives: Yes Advance Directives on File: Yes Advance Directives Date on File: 03/05/22 service: No Current occupational status: disabled Physical Exam ED Vital Signs: Vital Signs - 24 hr 09/11/22 21:11 09/11/22 22:00 Temperature 98.4 F Pulse Rate 90 88 Respiratory Rate 18 18 Blood Pressure 125/75 128/78 Pulse Oximetry 90 L 94 Oxygen Delivery Method Room Air BMI result Body Mass Index 22.6 Const Other: Appearance: Alert. Oriented X3. No acute distress. Eyes: Pupils equal, round and reactive to light. ENT: Pharynx normal. Neck: Normal inspection. Neck supple. No lymph nodes noted. No crepitus CVS: Normal heart rate and rhythm. Pulses normal. Normal S1 and S2 Respiratory: No respiratory distress. Breath sounds normal. No Wheezing. No rales Abdomen: Soft and nontender. No rigidity. No distention. Skin: Skin warm and dry. Normal skin color. Normal skin turgor. Extremities: No lower extremity edema. No Lacerations. No Rash. Fifth digit on the right hand is ecchymotic. Patient able to flex and extend the finger Neuro: Oriented X 3. No motor deficit. No sensory deficit. Moving all extremities. No slurred speech. CN 2 through 12 grossly intact Psych: calm, cooperative, normal affect Course Course Course Narrative: -the care team evaluated the patient. At this time, there are no bed available. There might be an a bed available in the morning. -patient will stay overnight in the ED. patient is known to want to leave while waiting for detox beds. Patient is not on a [address]. If patient is clinically sober, he may leave if he wants -physician observation started at 23:00 Medical Decision Making Medical Decision Making MDM Narrative: -at this time, patient stable, if patient has any signs symptoms of alcohol withdrawal, he may have to be admitted. Differential Diagnosis Differential Diagnoses: The differential diagnosis associated with the presentation includes (Alcohol abuse, alcohol dependence, substance abuse) Admission/Observation Consideration of admission/observation: Escalation of care including admission/observation considered Consult Healthcare Provider Management of the patient was discussed with: Behavioral Health Provider (Care team) Discharge Plan Discharge Clinical Impression: Alcohol dependence Patient Disposition: Still a Patient Prescriptions: No Action naltrexone 50 mg tablet 50 mg PO BID docusate sodium 100 mg capsule 100 mg PO DAILY gabapentin 300 mg capsule 300 mg PO BID albuterol sulfate 90 mcg/actuation HFA aerosol inhaler 1 puff inhalation QID PRN (Reason: Shortness Of Breath Or Wheezing) Eliquis 5 mg tablet 5 mg PO BID Combivent Respimat 20-100 mcg/actuation mist 1 puff inhalation QID Eliquis 5 mg tablet 5 mg PO BID Qty: 60 0RF
[2022-09-11 23:36] VITALS: BP 117/69; PULSE 79; RESP 18; TEMP 36.7; O2SAT 93
[2022-09-12 01:36] VITALS: BP 117/69; PULSE 77; RESP 18; TEMP 36.8; O2SAT 96
--- NOTE | 2022-09-12 03:44 | PC.NURSE ---
Pt sleeping, easily rousable, no acute behavioral or medical concners at this time.
== END 2022-09-12 06:06 | disposition home or self-care (01) ==
PROVIDERS: Emergency Provider Emergency Medicine; PCP Internal Medicine
DX: F10.239 Alcohol dependence with withdrawal, unspecified (principal); Y90.9 Presence of alcohol in blood, level not specified; F17.210 Nicotine dependence, cigarettes, uncomplicated; Z71.6 Tobacco abuse counseling; Z79.899 Other long term (current) drug therapy
CPT/HCPCS: 99284

== ENCOUNTER 2022-09-17 19:25 | Emergency (ER) | payer OTHER, SELFPAY ==
[2022-09-17 19:41] VITALS: BP 126/69; PULSE 83; O2SAT 95
[2022-09-17 20:09] VITALS: BP 107/70; PULSE 93; RESP 18; TEMP 35.9; O2SAT 93; BMI 18.3
--- OUTSIDE RECORDS SUMMARY | 2022-09-17 22:02 | XMS_ITS | Continuity of Care Document ---
Author Name Unknown Address [address] [place] [address] Phone Organization [facility] Address [address] [place] [address] Phone Care Team Providers Care Manager Of Product Name Role Phone Cristhian Delgado Primary Care Provider Cristhian Delgado Family Provider MD Milind Cassie Emergency Provider Unavailable Chief Complaint and Reason for Visit Chief Complaint LEG NUMBNESS Allergies, Adverse Reactions, Alerts Allergen Type Severity Reaction Last Updated Verified Status peanut Allergy Mild Unknown August 15, 2022 1:34pm Yes A ctive Social History Smoking Status Unknown if ever smoked Observation Status Observation Response Date of Response Living Situation [facility] August 15, 2022 6:20pm Additional Data Assigned Sex Male Problems Active Problems Medical Problem Onset Date Status Numbness Active Weakness Active Procedures Procedure Date Performed Status US venous duplex LE BI August 15, 2022 7:06pm ac tive CT head/brain wo contrast August 15, 2022 7:16pm active Relevant Diagnostic Tests and/or Laboratory Data Laboratory Results Test Date/Time Result Interpretation Reference Range Result Comment Performing Site Add-On Test Request August 15, 2022 7:34pm Added test [facility] [id number] [address] [facility] 34070 White Blood Count August 15, 2022 1:47pm 5.2 X10 3/uL 4.5-11.0 [facility] [id number] [address] [facility] 64023 Red Blood Count August 15, 2022 1:47pm 3.99 X10 6/uL 4.00-5.50 [facility] [id number] [address] [place] [address] 96247 Hemoglobin August 15, 2022 1:47pm 11.4 g/dl 12.0-17.0 [facility] [id number] [address] [place] [address] 43765 Hematocrit August 15, 2022 1:47pm 36.7 % 35.0-50.0 [facility] [id number] [address] [place] [address] 97898 Mean Corpuscular Volume August 15, 2022 1:47pm 92.0 fl 80.0-100.0 [facility] [id number] [address] [place] [address] 67439 Mean Corpuscular Hemoglobin August 15, 2022 1:47pm 28.6 pg 27.0-34.0 [facility] [id number] [address] [place] [address] 72447 Mean Corpuscular Hemoglobin Concent August 15, 2022 1:47pm 31.1 g/dl 31.0-36.0 [facility] [id number] [address] [place] [address] 94176 Red Cell Distribution Width August 15, 2022 1:47pm 16.2 % 11.5-15.0 [facility] [id number] [address] [place] [address] 00522 Platelet Count August 15, 2022 1:47pm 266 X10 3/uL 150-400 [facility] [id number] [address] [place] [address] 51796 Neutrophils (%) (Auto) August 15, 2022 1:47pm Not Reportable [facility] [id number] [address] [place] [address] 74339 Lymphocytes (%) (Auto) August 15, 2022 1:47pm Not Reportable [facility] [id number] [address] [place] [address] 52959 Monocytes (%) (Auto) August 15, 2022 1:47pm Not Reportable [facility] [id number] [address] [place] [address] 61337 Eosinophils (%) (Auto) August 15, 2022 1:47pm Not Reportable [facility] [id number] [address] [place] [address] 61758 Basophils (%) (Auto) August 15, 2022 1:47pm Not Reportable [place] [id number] [address] [place] [address] 74077 Neutrophils # (Auto) August 15, 2022 1:47pm Not Reportable [facility] [id number] [address] [place] [address] 84904 Lymphocytes # (Auto) August 15, 2022 1:47pm Not Reportable [facility] [id number] [address] [place] [address] 71303 Basophils # (Auto) August 15, 2022 1:47pm Not Reportable [facility] [id number] [address] [place] [address] 71050 Neutrophils % (Manual) August 15, 2022 1:47pm 64 % [facility] [id number] [address] [place] [address] 23764 Band Neutrophils % (Manual) August 15, 2022 1:47pm 2 % 0-6 [facility] [id number] [address] [place] [address] 73069 Lymphocytes % (Manual) August 15, 2022 1:47pm 19 % [facility] [id number] [address] [place] [address] 75375 Reactive Lymphocytes % (Manual) August 15, 2022 1:47pm 2 % [facility] [id number] [address] [place] [address] 70265 Monocytes % (Manual) August 15, 2022 1:47pm 10 % [facility] [id number] [address] [place] [address] 51015 Eosinophils % (Manual) August 15, 2022 1:47pm 1 % [facility] [id number] [address] [place] [address] 32290 Basophils % (Manual) August 15, 2022 1:47pm 2 % [place] [id number] [address] [place] [address] 29318 Neutrophils # (Manual) August 15, 2022 1:47pm 3.4 X10 3/uL 1.5-7.8 [id number] [place] [address] 63555 Lymphocytes # (Manual) August 15, 2022 1:47pm 1.1 X10 3/uL 1.0-4.8 [facility] [id number] [address] [place] [address] 85776 Monocytes # (Manual) August 15, 2022 1:47pm 0.5 X10 3/uL 0.0-0.8 [facility] [id number] [address] [place] [address] 43594 Eosinophils # (Manual) August 15, 2022 1:47pm 0.1 X10 3/uL 0.0-0.5 [facility] [id number] [address] [place] [address] 86364 Basophils # (Manual) August 15, 2022 1:47pm 0.1 X10 3/uL 0.0-0.2 [facility] [id number] [address] [place] [address] 67793 Platelet Estimate August 15, 2022 1:47pm Adequate [facility] [id number] [address] [place] [address] 70798 Red Blood Cell Morphology August 15, 2022 1:47pm Normal morphology [facility] [id number] [address] [place] [address] 33933 Nucleated Red Blood Cells % August 15, 2022 1:47pm 0.0 /100 WBC 0.0-0.0 [facility] [id number] [address] [place] [address] 68645 Urine Color August 15, 2022 6:04pm Yellow Yellow [facility] [id number] [address] [place] [address] 85827 Urine Clarity August 15, 2022 6:04pm Clear Clear [facility] [id number] [address] [place] [address] 13113 Urine pH August 15, 2022 6:04pm 6.5 5.0-8.0 [facility] [id number] [address] [place] [address] 06730 Urine Specific [place] August 15, 2022 6:04pm 1.009 1.005-1.03 0 [facility] [id number] [address] [place] [address] 14504 Urine Blood August 15, 2022 6:04pm Negative mg/dL Negative [facility] [id number] [address] [facility] 18672 Urine Protein August 15, 2022 6:04pm Negative mg/dL Negative [facility] [id number] [address] [facility] 55759 Urine Glucose (UA) August 15, 2022 6:04pm Negative mg/dl Negative [facility] [id number] [address] [facility] 53917 Urine Ketones August 15, 2022 6:04pm Negative mg/dL Negative [facility] [id number] [address] [facility] 65145 Urine Nitrate August 15, 2022 6:04pm Negative Negative [facility] [id number] [address] [facility] 00305 Urine Bilirubin August 15, 2022 6:04pm Negative mg/dL Negative [facility] [id number] [address] [place] [address] 12370 Urine Urobilinogen August 15, 2022 6:04pm 0.2 E.U./dL Normal [facility] [id number] [address] [place] [address] 70349 Urine Leukocyte Esterase August 15, 2022 6:04pm Negative mg/dL Negative [facility] [id number] [address] [place] [address] 58822 Sodium Level August 15, 2022 1:47pm 137 mmol/L 137-146 [facility] [id number] [address] [place] [address] 97592 Potassium Level August 15, 2022 1:47pm 4.6 mmol/L 3.5-5.3 [facility] [id number] [address] [place] [address] 56319 Chloride Level August 15, 2022 1:47pm 100 mmol/L 98-107 [facility] [id number] [address] [place] [address] 76284 Carbon Dioxide Level August 15, 2022 1:47pm 26 mmol/L 23-32 [facility] [id number] [address] [place] [address] 45731 Anion Gap August 15, 2022 1:47pm 11 mmol/L -15 [facility] [id number] [address] [place] [address] 73673 Blood Urea Nitrogen August 15, 2022 1:47pm 18 mg/dl - [facility] [id number] [address] [place] [address] 45666 Creatinine August 15, 2022 1:47pm 0.9 mg/dL 0.6-1.4 [facility] [id number] [address] [place] [address] 80895 Estimated Creatinine Clearance August 15, 2022 1:47pm 79.2 ml/min This value is calculated by Cockcroft Gault Equation using ideal body weight. This result is dependent on an accurate patient height and weight which is obtained from patients medical record. Anselmo Ray. and M.H. Jami. Prediction of creatinine clearance from serum creatinine. Nephron. 1976. 16(1):31-41. [facility] [id number] [address] [place] [address] 92876 Estimat Glomerular Filtration Rate August 15, 2022 1:47pm 97 >90 Reported eGFR is based on the CKD-EPI 2020 equation that does not use a race coefficient. Additional information can be found at: 1_icb_egfr_s Medbox_flyer 5.pdf (kidney.org) [facility] [id number] [address] [place] [address] 68288 BUN/Creatinine Ratio August 15, 2022 1:47pm 20.0 10.0-20.0 [facility] [id number] [address] [place] [address] 62456 Glucose Level August 15, 2022 1:47pm 99 mg/dL 70-100 [facility] [id number] [address] [place] [address] 90336 Calcium Level August 15, 2022 1:47pm 9.9 mg/dl 8.6-10.3 [facility] [id number] [address] [place] [address] 52476 Magnesium Level August 15, 2022 1:47pm 1.9 mg/dL 1.8-2.5 [facility] [id number] [address] [place] [address] 47147 Total Bilirubin August 15, 2022 1:47pm 0.3 mg/dl <1.1 [facility] [id number] [address] [place] [address] 39209 Aspartate Amino Transf (AST/SGOT) August 15, 2022 1:47pm 25 U/L 15-41 [facility] [id number] [address] [place] [address] 19668 Alanine Aminotransferase (ALT/SGPT) August 15, 2022 1:47pm 26 U/L 14-63 [facility] [id number] [address] [place] [address] 77968 Total Protein August 15, 2022 1:47pm 7.9 g/dL 6.4-8.3 [facility] [id number] [address] [place] [address] 78451 Albumin August 15, 2022 1:47pm 4.5 g/dl 4.0-5.0 [facility] [id number] [address] [place] [address] 58191 Albumin/Globulin Ratio August 15, 2022 1:47pm 1.3 1.0-2.6 [facility] [id number] [address] [place] [address] 40880 Alkaline Phosphatase August 15, 2022 1:47pm 107 U/L 40-129 [facility] [id number] [address] [place] [address] 46221 Vital Signs Vital Reading Result Reference Range Collection Date/Time Height 177.8 cm August 15, 2022 1:34pm Weight 65.77 kg August 15, 2022 1:34pm Body Temperature 97.9 [degF] 97.6-99.6 August 15, 2022 10:05pm Heart Rate 79 /min 60-90 August 15, 2022 10:05pm Respiratory rate 17 /min 12-24 August 15, 2022 10:05pm Oxygen saturation by Pulse oximetry 96 % 95-100 August 15, 2022 10:0 5pm BP Systolic 142 mm[Hg] 90-140 August 15, 2022 10:05pm BP Diastolic 79 mm[Hg] 60-90 August 15, 2022 10:05pm BMI (Body Mass Index) 20.8 kg/m2 July 302022 1:34pm Advance Directives Advance Directive Response Recorded Date/ Time Advance Directives No August 15 2:11pm Health Care Proxy No August 15 2:11pm Insurance Providers Guarantor GIO ZEE Address [address] [facility] [address] Contact Info. Home Phone: Payer Policy Id Coverage Id Subscriber's Name Subscriber Id Effective Date Expiration Date [facility] [id number] GIO ZEE [id number] Encounters Encounter Location(s) Arrival/Admit Date Discharge/Depart Date Provider(s) Departed Emergency [facility] August 15, 2022 1:15pm August 15, 2022 10:37pm null Plan of Treatment Future Tests Future scheduled test information is unavailable Pending Tests Test Name Ordered Date Scheduled Date CT head/brain wo contrast August 15, 2022 7:16pm August 15, 2022 7:16pm US venous duplex LE BI August 15, 2022 7:06pm Ju ne 2022 7:06pm Future Visits Future appointment information is unavailable Referrals to Other Providers Reason for Referral Referral Start Date Provider Provider Contact Information Provider Address Cristhian Delgado Work Phone: [address] [facility] [address] [facility] [address] Gio Schaefer MD Email: [email or web address] Work Phone: [address] [place] [address] Future Procedures Future procedure information is unavailable Future Medications Future medication information is unavailable Patient Instructions ED Weakness (Uncertain Cause ) Goals Acute Goals You were seen in the emergen cy department for numbness and weakness. Your lab work, ultrasound and head CT were all unremarkable. Recommend close follow up with PCP and outpatient Neurology. Information provided below for Neurology. Return emergency department with any changes in chest pain, shortness of breath, abdominal pain, incontinence, loss of control of bowels, or inability to ambulate.
--- OUTSIDE RECORDS SUMMARY | 2022-09-17 22:02 | XMS_ITS | Continuity of Care Document ---
Author Name Unknown Address [address] [place] [address] Phone Organization [facility] Address [address] [place] [address] Phone Care Team Providers Care Circulation Worker Name Role Phone Cristhian Delgado Primary Care Provider [phone] Cristhian Delgado Family Provider MD Milind Cassie [...] Request August 15, 2022 7:34pm Added test [facility] [id number] [address] [facility] 48299 White Blood Count August 15, 2022 1:47pm 5.2 X10 3/uL 4.5-11.0 [facility] [id number] [address] [facility] 67816 Red Blood Count August 15, 2022 1:47pm 3.99 X10 6/uL 4.00-5.50 [facility] [id number] [address] [place] [address] 09387 Hemoglobin August 15, 2022 1:47pm 11.4 g/dl 12.0-17.0 [facility] [id number] [address] [place] [address] 76469 Hematocrit August 15, 2022 1:47pm 36.7 % 35.0-50.0 [facility] [id number] [address] [place] [address] 25115 Mean Corpuscular Volume August 15, 2022 1:47pm 92.0 fl 80.0-100.0 [facility] [id number] [address] [place] [address] 98540 Mean Corpuscular Hemoglobin August 15, 2022 1:47pm 28.6 pg 27.0-34.0 [facility] [id number] [address] [place] [address] 65596 Mean Corpuscular Hemoglobin Concent August 15, 2022 1:47pm 31.1 g/dl 31.0-36.0 [facility] [id number] [address] [place] [address] 10992 Red Cell Distribution Width August 15, 2022 1:47pm 16.2 % 11.5-15.0 [facility] [id number] [address] [place] [address] 48519 Platelet Count August 15, 2022 1:47pm 266 X10 3/uL 150-400 [facility] [id number] [address] [place] [address] 28841 Neutrophils (%) (Auto) August 15, 2022 1:47pm Not Reportable [facility] [id number] [address] [place] [address] 23418 Lymphocytes (%) (Auto) August 15, 2022 1:47pm Not Reportable [facility] [id number] [address] [place] [address] 24401 Monocytes (%) (Auto) August 15, 2022 1:47pm Not Reportable [facility] [id number] [address] [place] [address] 82502 Eosinophils (%) (Auto) August 15, 2022 1:47pm Not Reportable [facility] [id number] [address] [place] [address] 57792 Basophils (%) (Auto) August 15, 2022 1:47pm Not Reportable [place] [id number] [address] [place] [address] 73445 Neutrophils # (Auto) August 15, 2022 1:47pm Not Reportable [facility] [id number] [address] [place] [address] 25593 Lymphocytes # (Auto) August 15, 2022 1:47pm Not Reportable [facility] [id number] [address] [place] [address] 48630 Basophils # (Auto) August 15, 2022 1:47pm Not Reportable [facility] [id number] [address] [place] [address] 41532 Neutrophils % (Manual) August 15, 2022 1:47pm 64 % [facility] [id number] [address] [place] [address] 87577 Band Neutrophils % (Manual) August 15, 2022 1:47pm 2 % 0-6 [facility] [id number] [address] [place] [address] 14798 Lymphocytes % (Manual) August 15, 2022 1:47pm 19 % [facility] [id number] [address] [place] [address] 83011 Reactive Lymphocytes % (Manual) August 15, 2022 1:47pm 2 % [facility] [id number] [address] [place] [address] 42187 Monocytes % (Manual) August 15, 2022 1:47pm 10 % [facility] [id number] [address] [place] [address] 90900 Eosinophils % (Manual) August 15, 2022 1:47pm 1 % [facility] [id number] [address] [place] [address] 73608 Basophils % (Manual) August 15, 2022 1:47pm 2 % [place] [id number] [address] [place] [address] 21344 Neutrophils # (Manual) August 15, 2022 1:47pm 3.4 X10 3/uL 1.5-7.[id number] [place] [address] 50611 Lymphocytes # (Manual) August 15, 2022 1:47pm 1.1 X10 3/uL 1.0-4.8 [facility] [id number] [address] [place] [address] 89774 Monocytes # (Manual) August 15, 2022 1:47pm 0.5 X10 3/uL 0.0-0.8 [facility] [id number] [address] [place] [address] 85494 Eosinophils # (Manual) August 15, 2022 1:47pm 0.1 X10 3/uL 0.0-0.5 [facility] [id number] [address] [place] [address] 22443 Basophils # (Manual) August 15, 2022 1:47pm 0.1 X10 3/uL 0.0-0.2 [facility] [id number] [address] [place] [address] 99040 Platelet Estimate August 15, 2022 1:47pm Adequate [facility] [id number] [address] [place] [address] 35703 Red Blood Cell Morphology August 15, 2022 1:47pm Normal morphology [facility] [id number] [address] [place] [address] 28779 Nucleated Red Blood Cells % August 15, 2022 1:47pm 0.0 /100 WBC 0.0-0.0 [facility] [id number] [address] [place] [address] 15778 Urine Color August 15, 2022 6:04pm Yellow Yellow [facility] [id number] [address] [place] [address] 15398 Urine Clarity August 15, 2022 6:04pm Clear Clear [facility] [id number] [address] [place] [address] 51170 Urine pH August 15, 2022 6:04pm 6.5 5.0-8.0 [facility] [id number] [address] [place] [address] 99389 Urine Specific [place] August 15, 2022 6:04pm 1.009 1.005-1.03 0 [facility] [id number] [address] [place] [address] 74444 Urine Blood August 15, 2022 6:04pm Negative mg/dL Negative [facility] [id number] [address] [facility] 75676 Urine Protein August 15, 2022 6:04pm Negative mg/dL Negative [facility] [id number] [address] [facility] 38887 Urine Glucose (UA) August 15, 2022 6:04pm Negative mg/dl Negative [facility] [id number] [address] [facility] 31021 Urine Ketones August 15, 2022 6:04pm Negative mg/dL Negative [facility] [id number] [address] [facility] 44142 Urine Nitrate August 15, 2022 6:04pm Negative Negative [facility] [id number] [address] [facility] 19210 Urine Bilirubin August 15, 2022 6:04pm Negative mg/dL Negative [facility] [id number] [address] [place] [address] 90453 Urine Urobilinogen August 15, 2022 6:04pm 0.2 E.U./dL Normal [facility] [id number] [address] [place] [address] 58360 Urine Leukocyte Esterase August 15, 2022 6:04pm Negative mg/dL Negative [facility] [id number] [address] [place] [address] 07640 Sodium Level August 15, 2022 1:47pm 137 mmol/L 137-146 [facility] [id number] [address] [place] [address] 28678 Potassium Level August 15, 2022 1:47pm 4.6 mmol/L 3.5-5.3 [facility] [id number] [address] [place] [address] 89205 Chloride Level August 15, 2022 1:47pm 100 mmol/L 98-107 [facility] [id number] [address] [place] [address] 09294 Carbon Dioxide Level August 15, 2022 1:47pm 26 mmol/L 23-32 [facility] [id number] [address] [place] [address] 82177 Anion Gap August 15, 2022 1:47pm 11 mmol/L -15 [facility] [id number] [address] [place] [address] 84894 Blood Urea Nitrogen August 15, 2022 1:47pm 18 mg/dl - [facility] [id number] [address] [place] [address] 74721 Creatinine August 15, 2022 1:47pm 0.9 mg/dL 0.6-1.4 [facility] [id number] [address] [place] [address] 74947 Estimated Creatinine Clearance August 15, 2022 1:47pm 79.2 ml/min This value is calculated by Cockcroft Gault Equation using ideal body weight. This result is dependent on an accurate patient height and weight which is obtained from patients medical record. Anselmo Ray. and M.H. Jami. Prediction of creatinine clearance from serum creatinine. Nephron. 1976. 16(1):31-41. [facility] [id number] [address] [place] [address] 94195 Estimat Glomerular Filtration Rate August 15, 2022 1:47pm 97 >90 Reported eGFR is based on the CKD-EPI 2020 equation that does not use a race coefficient. Additional information can be found at: 1_icb_egfr_s Primekss_flyer 5.pdf (kidney.org) [facility] [id number] [address] [place] [address] 49015 BUN/Creatinine Ratio August 15, 2022 1:47pm 20.0 10.0-20.0 [facility] [id number] [address] [place] [address] 41586 Glucose Level August 15, 2022 1:47pm 99 mg/dL 70-100 [facility] [id number] [address] [place] [address] 51563 Calcium Level August 15, 2022 1:47pm 9.9 mg/dl 8.6-10.3 [facility] [id number] [address] [place] [address] 06704 Magnesium Level August 15, 2022 1:47pm 1.9 mg/dL 1.8-2.5 [facility] [id number] [address] [place] [address] 26749 Total Bilirubin August 15, 2022 1:47pm 0.3 mg/dl <1.1 [facility] [id number] [address] [place] [address] 35255 Aspartate Amino Transf (AST/SGOT) August 15, 2022 1:47pm 25 U/L 15-41 [facility] [id number] [address] [place] [address] 80523 Alanine Aminotransferase (ALT/SGPT) August 15, 2022 1:47pm 26 U/L 14-63 [facility] [id number] [address] [place] [address] 01872 Total Protein August 15, 2022 1:47pm 7.9 g/dL 6.4-8.3 [facility] [id number] [address] [place] [address] 13012 Albumin August 15, 2022 1:47pm 4.5 g/dl 4.0-5.0 [facility] [id number] [address] [place] [address] 44382 Albumin/Globulin Ratio August 15, 2022 1:47pm 1.3 1.0-2.6 [facility] [id number] [address] [place] [address] 99289 Alkaline Phosphatase August 15, 2022 1:47pm 107 U/L 40-129 [facility] [id number] [address] [place] [address] 03195 Vital Signs Vital Reading Result Reference Range [...] Insurance Providers Guarantor GIO ZEE Address [address] [facility] [address] Contact Info. Home Phone: Payer Policy Id Coverage Id Subscriber's Name Subscriber Id Effective Date Expiration Date [facility] [id number] GIO ZEE [id number] Encounters Encounter Location(s) Arrival/Admit Date Discharge/Depart Date Provider(s) Departed Emergency [facility]Emergency [facility] August 15, 2022 1:15pm August 15, [...] Provider Address Cristhian Delgado Work Phone: [address] [facility] [address] [facility] [address] Gio Schaefer MD Email: [email or web address] Work Phone: [address] [place] [address]77 Future Procedures Future procedure information is unavailable [...]
[2022-09-17 22:28] VITALS: BP 120/64; PULSE 62; RESP 15; TEMP 36.6; O2SAT 97
--- NOTE | 2022-09-17 23:17 | ECG_ITS ---
Test Reason : ETOH Blood Pressure : / mmHG Vent. Rate : 069 BPM Atrial Rate : 069 BPM P-R Int : 120 ms QRS Dur : 128 ms QT Int : 432 ms P-R-T Axes : 040 -75 051 degrees QTc Int : 462 ms Normal sinus rhythm Right bundle branch block Left anterior fascicular block Bifascicular block Abnormal ECG When compared with ECG of 19-JUL-2022 16:58, No significant change was found Referred By: Raymundo Phipps Electronically Signed By:Michael Alejandra
--- NOTE | 2022-09-17 23:42 | ED.GENADULT ---
HPI - General Adult General Chief complaint: ETOH/Substance Use Stated complaint: ETOH Time Seen by Provider: 09/17/22 23:10 Source: patient, RN notes reviewed and old records reviewed Mode of arrival: ambulatory Limitations: other (Acute alcohol intoxication) History of Present Illness HPI narrative: 62-year-old male presents for evaluation of ?detox. ? Patient reports a drinks 1-2 pt of [place] daily His last drink was shortly before being transported by EMS Patient reports he is seeking detox Patient denies any other illicit drug use He reports some chest tightness and wheezing. The patient does have a history of COPD. Denies any shortness of breath when compared to baseline He has a chronic cough that is unchanged Denies any fevers or chills Related Data Home Medications Medication Instructions Recorded Confirmed albuterol sulfate 90 mcg/actuation 1 puff inhalation QID PRN 08/29/22 08/29/22 aerosol inhaler Shortness Of Breath Or Wheezing apixaban 5 mg tablet (Eliquis) 5 mg PO BID 08/29/22 08/29/22 docusate sodium 100 mg capsule 100 mg PO DAILY 08/29/22 08/29/22 gabapentin 300 mg capsule 300 mg PO BID 08/29/22 08/29/22 ipratropium 20 mcg-albuterol 100 1 puff inhalation QID 08/29/22 08/29/22 mcg/actuation mist for inhalation (Combivent Respimat) naltrexone 50 mg tablet 50 mg PO BID 08/29/22 08/29/22 Previous Rx's Medication Instructions Recorded apixaban 5 mg tablet (Eliquis) 5 mg PO BID #60 tabs 09/10/22 Allergies Allergy/AdvReac Type Severity Reaction Status Date / Time Peanut Butter Allergy Facial Verified 09/17/22 20:09 Swelling raspberry Allergy Facial Verified 09/17/22 20:09 Swelling Review of Systems Constitutional: Constitutional: Denies chills and Denies fever(s) Cardiovascular: Cardiovascular: Reports chest pain and Reports dyspnea (Consistent with baseline) Respiratory: Respiratory: Reports cough, Reports dyspnea (Consistent with baseline) and Reports wheezing Gastrointestinal: Gastrointestinal: Denies abdominal pain Psychiatric: Psychiatric: Denies suicidal ideation Allergic/Immunologic: Allergic/Immunologic: Reports wheezing PMFSH Past Medical History Medical History Acute and chronic respiratory failure with hypoxia Alcohol abuse Alcohol use disorder, severe, dependence Asthma COPD (chronic obstructive pulmonary disease) COPD (chronic obstructive pulmonary disease) DVT (deep venous thrombosis) Neuropathy Subdural hematoma Tobacco abuse Social History Social History Household Members: None Housing: House Do you presently have visiting nurse or other home services: No Alcohol intake: current Alcohol intake frequency: 3 or more drinks per day Alcohol type: beer Patient Tobacco Use Status: Current everyday Tobacco user Tobacco use type: Cigarette Cigarette Packs Per Day: 1 Cigarettes Per Day: 20.0 Smoked in Last 30 Days: Yes e-Cigarette/Vaping Use: Never Used Second Hand Smoke Exposure: No Use of substances other than those prescribed or required for medical reasons: No Substance Use Type: Marijuana Advance Directives: Yes Advance Directives on File: Yes Advance Directives Date on File: 03/05/22 service: No Current occupational status: disabled Physical Exam ED Vital Signs: Vital Signs - 24 hr 09/17/22 20:09 09/17/22 22:28 09/18/22 00:00 Temperature 96.7 F L 97.9 F 97.8 F Pulse Rate 93 62 85 Respiratory Rate 18 15 16 Blood Pressure 107/70 120/64 118/65 Pulse Oximetry 93 97 98 Oxygen Delivery Method Room Air Room Air Room Air BMI result Body Mass Index 18.3 Const General: comfortable, no acute distress, alert and awake Nutritional Appearance: well nourished Orientation/consciousness: patient oriented x3 HENMT Head: Yes normocephalic and Yes atraumatic Eyes Eyelids: Yes eyelids normal Conjunctivae: conjunctivae normal Sclerae: sclerae normal Corneas: corneas normal Pupils: Equal, round and reactive pupils present EOM: EOMs intact bilaterally Neck Neck: Yes full ROM Resp Effort & Inspection: normal respiratory effort, able to speak in complete sentences and not labored Auscultation: not clear to auscultation bilaterally (Very faint expiratory wheeze in the right lung field only) Skin General skin exam: no rashes or lesions noted and elasticity normal Neuro General: patient oriented x3 Cranial nerves: Yes Equal, round and reactive pupils present and Yes Bilaterally intact EOM present Cognition (Neuro): normal cognition Extrem Other: Moving all extremities well without any obvious deformities Course Reevaluation(s) Reevaluation #1: Patient's workup without acute findings, he is medically cleared for care team recovery team evaluation for detox consideration Time: 01:03 Medical Decision Making Medical Decision Making [facility] Narrative: 62-year-old male presents for evaluation of detox. Will check basic labs, EKG is he is complaining of chest pain which is likely related to his mild COPD. Once medically cleared, the patient may be evaluated by the care team/recovery team. Differential Diagnosis Alcohol abuse Polysubstance abuse COPD exacerbation Detox Alcohol withdrawal Lab Data [facility] Lab Attestation statement: I reviewed the patient's lab results. Mild leukopenia consistent baseline at 3.4. Mild anemia with a hemoglobin 12.5 and hematocrit 38.2 also consistent baseline. No left shift. Electrolytes are normal limits, renal function within normal limits. Mild transaminitis 09/18/22 00:08 09/18/22 00:08 Labs: Lab Results 09/18/22 09/18/22 Range/Units 00:08 00:08 WBC 3.4 L (4.8-10.8) X10*3/uL RBC 4.34 L (4.60-5.80) X10*6/uL Hgb 12.5 L (14.0-18.0) g/dl Hct 38.2 L (42.0-52.0) % MCV 88.0 (80.0-98.0) fL MCH 28.8 (27.0-33.0) pg MCHC 32.7 (31.0-36.0) g/dl RDW 15.9 (11.0-16.0) % Plt Count 102 L (160-400) X10*3/uL MPV 9.5 (9.4-12.4) fL Immature Gran % (Auto) 0.3 (0.0-0.4) % Neut % (Auto) 45.4 (45-73) % Lymph % (Auto) 40.0 (20-40) % [place] % (Auto) 11.3 H (2-11) % Eos % (Auto) 1.8 (0-4) % Baso % (Auto) 1.2 (0-2) % Lymph # (Auto) 1.3 (1.2-4.9) X10*3/uL [place] # (Auto) 0.4 (0.1-1.2) X10*3/uL Eos # (Auto) 0.1 (0.0-0.4) X10*3/uL Baso # (Auto) 0.0 (0.0-0.2) X10*3/uL Abs Immat Gran (auto) 0.01 (0.00-0.03) X10*3/uL Absolute Neuts (auto) 1.5 L (2.0-8.3) x10*3/uL Absolute Nucleated RBC 0.000 (0.0-0.012) X10*3/uL Nucleated RBC % (auto) 0.0 (0.0-0.2) /100WBC Sodium 143 (135-145) mmol/L Potassium 5.1 D (3.3-5.1) mmol/L Chloride 103 (96-108) mmol/L Carbon Dioxide 28 (22-29) mmol/L Anion Gap 17 (12-20) BUN 11 (9-16) mg/dL Creatinine 0.79 (0.5-1.4) mg/dL Estim Creat Clear Calc 77.0 Estimated GFR > 60 Random Glucose 78 (60-115) mg/dL Calcium 9.0 (8.4-10.2) mg/dL Total Bilirubin 0.6 (0.0-1.0) mg/dL AST 121 H (5-37) U/L ALT 71 H (0-40) U/L Alkaline Phosphatase 132 H (39-117) U/L Total Protein 7.5 (6.5-8.0) g/dL Albumin 4.0 (3.5-5.0) g/dL Lipase 23 (8-78) U/L Ethyl Alcohol 299 mg/dL Independent Interpretation I performed an independent interpretation of an: EKG (Normal sinus rhythm rate of 69 beats per minute. Right bundle-branch block and left anterior fascicular block. No significant change when compared to previous from June of this year. No ST segment elevations or depressions.) Discharge Plan Discharge Clinical Impression: Alcohol abuse Patient Disposition: Still a Patient Instructions: Abuse of Alcohol (ED) Prescriptions: No Action naltrexone 50 mg tablet 50 mg PO BID docusate sodium 100 mg capsule 100 mg PO DAILY gabapentin 300 mg capsule 300 mg PO BID albuterol sulfate 90 mcg/actuation HFA aerosol inhaler 1 puff inhalation QID PRN (Reason: Shortness Of Breath Or Wheezing) Eliquis 5 mg tablet 5 mg PO BID Combivent Respimat 20-100 mcg/actuation mist 1 puff inhalation QID Eliquis 5 mg tablet 5 mg PO BID Qty: 60 0RF
[2022-09-18] VITALS: BP 118/65; PULSE 85; RESP 16; TEMP 36.6; O2SAT 98
--- NOTE | 2022-09-18 00:09 | MHC.EDTECH ---
0000 ROUNDING DONE ,VITALS SIGN TAKEN ,PATIENT WAS FRAME CLEANER INTO HOSPITAL ATTIRE ,EKG TAKEN AND WAS READ BY PROVIDER ,BLOOD DRAWN AND SENT TO LAB ,STILL WAITING FOR URINE SAMPLE ,PATIENT BELONINGS ARE AT BEDSIDE ,BELONINGS LIST DONE AND ITS IN PT CHART ,PATIENT HAS $120 IN HIS WALLET ,BUT DOES NOT WANT TO PUT IN SAFE ,TURKEY SANDWICH AND ALEC SUNDAY GIVEN .
[2022-09-18 00:11] LABS: MANUAL DIFF FLAG NO
[2022-09-18 00:13] LABS: Basophils Percent Auto 1.2 % (0-2); Eosinophils Absolute Auto 0.1 X10*3/uL (0.0-0.4); Eosinophils Percent Auto 1.8 % (0-4); Hematocrit 38.2 % (42.0-52.0); Hemoglobin 12.5 g/dl (14.0-18.0); Imm Gran Abs Auto 0.01 X10*3/uL (0.00-0.03); Imm Gran Pct Auto 0.3 % (0.0-0.4); Lymphocytes Absolute Auto 1.3 X10*3/uL (1.2-4.9); Mean Corpuscular HGB Conc 32.7 g/dl (31.0-36.0); Mean Corpuscular Hemoglobin 28.8 pg (27.0-33.0); Mean Platelet Volume 9.5 fL (9.4-12.4); Monocytes Absolute Auto 0.4 X10*3/uL (0.1-1.2); Monocytes Percent Auto 11.3 % (2-11); Neutrophils Absolute Auto 1.5 x10*3/uL (2.0-8.3); Neutrophils Percent Auto 45.4 % (45-73); Platelet Count 102 X10*3/uL (160-400); Red Blood Count 4.34 X10*6/uL (4.60-5.80); Red Cell Distribution Width 15.9 % (11.0-16.0); White Blood Count 3.4 X10*3/uL (4.8-10.8)
[2022-09-18 00:30] LABS: Alanine Aminotransferase 71 U/L (0-40); Alkaline Phosphatase 132 U/L (39-117); Anion Gap 17 (12-20); Aspartate Amino Transferase 121 U/L (5-37); Bilirubin Total 0.6 mg/dL (0.0-1.0); Blood Urea Nitrogen 11 mg/dL (9-16); Carbon Dioxide 28 mmol/L (22-29); Chloride 103 mmol/L (96-108); Estimated Glomerular Filt Rate > 60; Ethanol 299 mg/dL; Glucose Random 78 mg/dL (60-115); Lipase 23 U/L (8-78); Potassium 5.1 mmol/L (3.3-5.1); Sodium 143 mmol/L (135-145); Total Protein 7.5 g/dL (6.5-8.0)
[2022-09-18 01:45] VITALS: BP 119/67; PULSE 86; RESP 16; TEMP 36.1; O2SAT 98
--- NOTE | 2022-09-18 12:47 | MHC.RECOVSUP ---
Met with pt in ED22H who is here for CARMEN. Pt informs he is not interested in ATS today and would like to go ronny. Pt provided resources and had no other questions or concerns at this time. Provider aware.
[2022-09-18 13:05] VITALS: BP 151/88; PULSE 82; RESP 20; TEMP 36.9; O2SAT 93
--- NOTE | 2022-09-18 13:34 | PC.NURSE ---
Alert and oriented. no s/s of withdrawl, good po intake and appetite. No complaints of any pain or discomfort. Resting comfortably at this time
--- NOTE | 2022-09-18 16:25 | PC.NURSE ---
Discharge paperwork reviewed with patient who verbalized understanding
== END 2022-09-18 18:42 | disposition home or self-care (01) ==
PROVIDERS: Physician Assistant; Emergency Provider Internal Medicine
DX: F10.10 Alcohol abuse, uncomplicated (principal); Y90.8 Blood alcohol level of 240 mg/100 ml or more; F17.210 Nicotine dependence, cigarettes, uncomplicated; Z86.718 Personal history of other venous thrombosis and embolism; Z79.01 Long term (current) use of anticoagulants; Z79.899 Other long term (current) drug therapy
CPT/HCPCS: 36415; 80053; 80307; 83690; 85025; 93005; 99284; 99285

== ENCOUNTER → 2022-09-17 23:17 | Outpatient (BNV) | payer OTHER, SELFPAY | PROVIDERS: Emergency Provider Internal Medicine; Visit Provider Internal Medicine Cardiovascular Disease | DX: I45.2 Bifascicular block (principal) | CPT/HCPCS: 93010 ==

== ENCOUNTER 2022-09-19 00:53 | Emergency (ER) | payer OTHER, SELFPAY ==
--- NOTE | ~2022-09-19 | CT_ITS ---
EXAMINATION: CT HEAD WITHOUT CONTRAST CLINICAL INFORMATION: Fall COMPARISON: 08/10/2021 TECHNIQUE: Contiguous axial imaging was performed from the skull base to vertex without intravenous administration of contrast. This CT examination was performed using dose optimization techniques as appropriate, variously including the following: *Automated exposure control *Adjustment of mA and/or kV according to patient size (this includes techniques or standardized protocols for targeted exams where dose is matched to indication/reason for exam; i.e. extremities or head) *Use of iterative reconstruction technique DLP: 620 mGy-cm FINDINGS: There is no evidence of acute intracranial hemorrhage or territorial infarction. No abnormal mass-effect or midline shift is seen. James to white matter differentiation is well preserved. No extra-axial fluid collections are identified. The ventricles are normal in size. There is mild periventricular white matter hypoattenuation consistent with chronic small vessel ischemic disease. Redemonstrated region of encephalomalacia in the right frontal lobe, with overlying craniotomy changes. No acute fracture is seen. The mastoid air cells and visualized portions of the paranasal sinuses are well-aerated. CT/CT head/brain wo IV con IMPRESSION: No acute intracranial pathology. Chronic changes as noted above.
[2022-09-19 01:00] VITALS: BP 109/70; PULSE 80; RESP 16; O2SAT 93
[2022-09-19 01:03] VITALS: BP 107/67; PULSE 97; O2SAT 96
--- NOTE | 2022-09-19 01:17 | ED.FALL ---
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 also has IVC filter Related Data Home Medications Medication Instructions Recorded Confirmed albuterol sulfate 90 mcg/actuation 1 puff inhalation QID PRN 08/29/22 08/29/22 aerosol inhaler Shortness Of Breath Or Wheezing apixaban 5 mg tablet (Eliquis) 5 mg PO BID 08/29/22 08/29/22 docusate sodium 100 mg capsule 100 mg PO DAILY 08/29/22 08/29/22 gabapentin 300 mg capsule 300 mg PO BID 08/29/22 08/29/22 ipratropium 20 mcg-albuterol 100 1 puff inhalation QID 08/29/22 08/29/22 mcg/actuation mist for inhalation (Combivent Respimat) naltrexone 50 mg tablet 50 mg PO BID 08/29/22 08/29/22 Previous Rx's Medication Instructions Recorded apixaban 5 mg tablet (Eliquis) 5 mg PO BID #60 tabs 09/10/22 Allergies Allergy/AdvReac Type Severity Reaction Status Date / Time Peanut Butter Allergy Facial Verified 09/17/22 20:09 Swelling raspberry Allergy Facial Verified 09/17/22 20:09 Swelling Review of Systems Review of Systems: Yes all other systems are reviewed and are negative [facility] Past Medical History Medical History (Updated 09/19/22 @ 06:08 by Ismael Barrios MD) Acute and chronic respiratory failure with hypoxia Alcohol abuse Alcohol use disorder, severe, dependence Asthma COPD (chronic obstructive pulmonary disease) COPD (chronic obstructive pulmonary disease) DVT (deep venous thrombosis) Neuropathy Presence of IVC filter Subdural hematoma Tobacco abuse Social History Social History Household Members: None Housing: House Do you presently have visiting nurse or other home services: No Alcohol intake: current Alcohol intake frequency: 3 or more drinks per day Alcohol type: beer Patient Tobacco Use Status: Current everyday Tobacco user Tobacco use type: Cigarette Cigarette Packs Per Day: 1 Cigarettes Per Day: 20.0 e-Cigarette/Vaping Use: Never Used Second Hand Smoke Exposure: No Substance Use Type: Marijuana Advance Directives: Yes Advance Directives on File: Yes Advance Directives Date on File: 03/05/22 service: No Current occupational status: disabled Physical Exam Vital Signs: Vital Signs: Last Vital Signs Pulse 72 09/19/22 04:07 Resp 15 09/19/22 04:07 BP 104/67 09/19/22 04:07 Pulse Ox 95 09/19/22 04:07 O2 Del Method Room Air 09/19/22 04:07 BMI result Body Mass Index 23.5 Appearance: Alert. Oriented X3. No acute distress. etoh+ Eyes: PERRLA, No Nystagmus ENT: Pharynx normal. Oral Mucosa small superficial tear left ear Pinna Neck: Normal inspection. Neck supple. CVS: Normal heart rate and rhythm. Pulses normal. Respiratory: No respiratory distress. Equal air entry bilateral, Abdomen: Soft and nontender. Bowel sounds are present, Skin: Skin warm and dry. Normal skin color. Normal skin turgor. Extremities: No lower extremity edema. No calf tenderness skin tear left dorsum of the hand Neuro: Oriented X 3. No motor deficit. No sensory deficit.No cerebellar signs , cranial nerves II-XII intact Discharge Plan Discharge Clinical Impression: Alcohol abuse, Fall Patient Disposition: Home, Self-Care Instructions: Abuse of Alcohol (ED), Skin Tear (ED), Fall Prevention (ED) Additional Instructions: stop drinking alcohol local care of the skin tear of left hand as adv follow with detox Prescriptions: No Action naltrexone 50 mg tablet 50 mg PO BID docusate sodium 100 mg capsule 100 mg PO DAILY gabapentin 300 mg capsule 300 mg PO BID albuterol sulfate 90 mcg/actuation HFA aerosol inhaler 1 puff inhalation QID PRN (Reason: Shortness Of Breath Or Wheezing) Eliquis 5 mg tablet 5 mg PO BID Combivent Respimat 20-100 mcg/actuation mist 1 puff inhalation QID Eliquis 5 mg tablet 5 mg PO BID Qty: 60 0RF Interventions: ED Discharge Assessment Last Done: 09/19/22 06:10 Discharge Date/Time: 09/19/22 06:19
[2022-09-19 02:01] VITALS: BMI 23.5
[2022-09-19 04:07] VITALS: BP 104/67; PULSE 72; RESP 15; O2SAT 95
--- NOTE | 2022-09-19 06:02 | PC.NURSE ---
resting comfortably, awaiting dispo. tolerating Po well. gait steady. no complaints. respirations non labored.
== END 2022-09-19 06:19 | disposition home or self-care (01) ==
PROVIDERS: Emergency Provider Internal Medicine
DX: F10.10 Alcohol abuse, uncomplicated (principal); S01.312A Laceration without foreign body of left ear, initial encounter; W10.9XXA Fall (on) (from) unspecified stairs and steps, initial encounter; Y93.9 Activity, unspecified; Y92.9 Unspecified place or not applicable; Y99.9 Unspecified external cause status; Z79.01 Long term (current) use of anticoagulants; Z79.899 Other long term (current) drug therapy
CPT/HCPCS: 70450; 99284

== ENCOUNTER 2022-09-19 11:22 | Emergency (ER) | payer OTHER, SELFPAY ==
--- NOTE | 2022-09-19 11:27 | ED_ITS ---
HPI - General Adult General Chief complaint: ETOH/Substance Use Stated complaint: ETOH, seeking help per EMS Time Seen by Provider: 09/19/22 11:24 Source: patient and EMS Mode of arrival: EMS Limitations: other (Poor historian) History of Present Illness HPI narrative: This is a 62-year-old male history of alcohol abuse, frequent falls presenting to the emergency department seeking detox, patient reports that he wants to stop drinking. Denies visual, auditory tactile hallucinations. Denies SI and HI. No medical complaints. Patient reports he fell earlier today however was seen in the emergency department for this. He reports that he sustained a small cut to his left hand, and they put a bandage on it. He states he is feeling better he would just like to go to detox and stop drinking. He has not fallen since his evaluation. Patient denies chest pain, shortness of breath, nausea, vomiting, abdominal pain, headache, vision changes, dizziness, weakness. Denies recent trauma. Patient states he last drank way earlier this morning, after he got discharged from the hospital drank whiskey On arrival negative NIH stroke scale. Related Data Home Medications Medication Instructions Recorded Confirmed albuterol sulfate 90 mcg/actuation 1 puff inhalation QID PRN 08/29/22 08/29/22 aerosol inhaler Shortness Of Breath Or Wheezing apixaban 5 mg tablet (Eliquis) 5 mg PO BID 08/29/22 08/29/22 docusate sodium 100 mg capsule 100 mg PO DAILY 08/29/22 08/29/22 gabapentin 300 mg capsule 300 mg PO BID 08/29/22 08/29/22 ipratropium 20 mcg-albuterol 100 1 puff inhalation QID 08/29/22 08/29/22 mcg/actuation mist for inhalation (Combivent Respimat) naltrexone 50 mg tablet 50 mg PO BID 08/29/22 08/29/22 Previous Rx's Medication Instructions Recorded apixaban 5 mg tablet (Eliquis) 5 mg PO BID #60 tabs 09/10/22 Allergies Allergy/AdvReac Type Severity Reaction Status Date / Time Peanut Butter Allergy Facial Verified 09/17/22 20:09 Swelling raspberry Allergy Facial Verified 09/17/22 20:09 Swelling Review of Systems Review of Systems: Constitutional : No Weight loss, No Fever, No Chills, No Fatigue, No Malaise ENT/Mouth : No sore throat, No Rhinorrhea Eyes: No Eye Pain, No Swelling, No Redness Cardiovascular : No Chest Pain, No SOB, No Dyspnea on Exertion, No Orthopnea, No Edema, No Palpitations Respiratory : No Cough, No Sputum, No Wheezing Gastrointestinal : No Nausea, No Vomiting, No Diarrhea, No Constipation, No abdominal Pain, No Hematochezia, No Melena Genitourinary : No Dysuria, No Urinary Frequency, No Hematuria, Musculoskeletal : No joint pain, No Myalgias, No Joint Swelling Skin : No Skin Lesions, No rash Neuro : No Weakness, No Numbness, No Dizziness, No Headache Psych : No Anxiety/Panic, No Depression All other systems reviewed and are negative Yes all other systems are reviewed and are negative [facility] Past Medical History Attestation statement: The following information was validated with the patient. Source: old records reviewed and nursing notes reviewed Medical History Acute and chronic respiratory failure with hypoxia Alcohol abuse Alcohol use disorder, severe, dependence Asthma COPD (chronic obstructive pulmonary disease) COPD (chronic obstructive pulmonary disease) DVT (deep venous thrombosis) Neuropathy Presence of IVC filter Subdural hematoma Tobacco abuse Social History Social History Household Members: None Housing: House Do you presently have visiting nurse or other home services: No Alcohol intake: current Alcohol intake frequency: 3 or more drinks per day Alcohol type: hard liquor Patient Tobacco Use Status: Current everyday Tobacco user Tobacco use type: Cigarette Cigarette Packs Per Day: 1 Cigarettes Per Day: 20.0 Smoked in Last 30 Days: Yes e-Cigarette/Vaping Use: Never Used Second Hand Smoke Exposure: No Use of substances other than those prescribed or required for medical reasons: No Substance Use Type: Marijuana Advance Directives: Yes Advance Directives on File: Yes Advance Directives Date on File: 03/05/22 service: No Current occupational status: disabled Physical Exam ED Vital Signs: Vital Signs - 24 hr 09/19/22 11:38 Pulse Rate 85 Respiratory Rate 16 Blood Pressure 93/58 L Pulse Oximetry 94 Oxygen Delivery Method Room Air BMI result Body Mass Index 20.4 Vital signs stable Appearance: Alert.? Oriented X3.? No acute distress.? Head: Normocephalic, atraumatic, no step-offs or deformities Eyes: Pupils equal, round and reactive to light.? CVS: Normal heart rate and rhythm.? Pulses normal.? Respiratory: No respiratory distress.? Breath sounds normal.? Abdomen: Soft and nontender.? Skin: Skin warm and dry.? Normal skin color.? Normal skin turgor.? Extremities: No lower extremity edema.? No calf ttp. 5/5 strength to bilateral upper and lower extremities Neuro: Oriented X 3.? No motor deficit.? No sensory deficit. CN 2-12 intact . Normal [id number], [id number], steady tandem gait normal coordination. Course Reevaluation(s) Reevaluation #1: Patient is refusing labs, detox placement would like to leave, would not like his labs done, refusing further intervention at this time. Recovery Carol came down spoke to patient, gave him detox resources. Explained risks versus b enefits of leaving against medical advice including alcohol withdrawal seizures, potential fall with head strike and possible head bleed, , worsening symptoms. Patient verbalizes understanding. At time of discharge patient is alert and oriented x4, vocalizes understanding of risks and benefits No SI or HI Patient will be leaving against medical advice at this time. Time: 12:07 Medical Decision Making Medical Decision Making MDM Narrative: 62-year-old male presents requesting alcohol detox. Upon chart review patient was seen here today at 01:17 in the morning, presented status post trip and fall likely secondary to alcohol use. Physical examination benign other than a dressing placed to the left hand which was placed last night. Will not undress at this time. Neurovascular status intact. Neuro nonfocal. Cerebellar intact. Likely alcohol intoxication seeking detox. No signs of acute trauma this time. I do not suspect metabolic derangements or infection. Will rule out electrolyte abnormalities. And polysubstance abuse. Plan at this time medical clearance evaluation by recovery. Differential Diagnosis Differential Diagnoses: The differential diagnosis associated with the presenta tion includes Likely alcohol intoxication seeking detox. No signs of acute trauma this time. I do not suspect metabolic derangements or infection. Will rule out electrolyte abnormalities. And polysubstance abuse. Admission/Observation Consideration of admission/observation: Escalation of care including admission/observation considered Unlikely Core Measures AMI core measures followed: Yes Measure exclusions: not indicated Critical Care Time Critical Care Time Critical Care Time: No Discharge Plan Discharge Clinical Impression: Alcohol abuse, Left against medical advice Patient Disposition: Home, Self-Care Instructions: Abuse of Alcohol (DC) Additional Instructions: Take your medications as prescribed. If you were prescribed antibiotics today, it is important that you take your medication to their entirety, do not skip any doses, do not finish them early. Follow-up with your primary care provider this week. Return to the emergency department with new or worsening symptoms. Such as fevers, chills, chest pain, shortness of breath, nausea, vomiting, dizziness, headache, vision changes, lethargy, suicidal or homicidal ideation In case of emergency call 911 Please call detox facilities and arrange detox Prescriptions: No Action naltrexone 50 mg tablet 50 mg PO BID docusate sodium 100 mg capsule 100 mg PO DAILY gabapentin 300 mg capsule 300 mg PO BID albuterol sulfate 90 mcg/actuation HFA aerosol inhaler 1 puff inhalation QID PRN (Reason: Shortness Of Breath Or Wheezing) Eliquis 5 mg tablet 5 mg PO BID Combivent Respimat 20-100 mcg/actuation mist 1 puff inhalation QID Eliquis 5 mg tablet 5 mg PO BID Qty: 60 0RF Referrals: ED Physician,Generic [Physician] - 2 days Stand Alone Forms: Against Medical Advice
[2022-09-19 11:38] VITALS: BP 123/78; BP 93/58; PULSE 85; PULSE 90; RESP 16; O2SAT 94; O2SAT 96; BMI 20.4
[2022-09-19 12:07] LABS: Appearance Urine Clear; Color Urine Dark Yellow; Glucose Urine UA Negative (Negative); Leukocyte Esterase Urine Small (1+) (Negative); Nitrite Urine Negative (Negative); PH 6.5 (5.0-9.0); Specific Gravity - Urine 1.015 (1.005-1.025); UMIC TRIGGER UACC YES; Urine Blood Negative (Negative); Urine Ketones Trace mg/dL (Negative); Urine Protein 30 (1+) mg/dL (Neg-Trace)
--- NOTE | 2022-09-19 12:09 | MHC.RECOVRN ---
Attempted to meet with pt in [facility] after pt BIBA from home seeking ATS. Per triage note, pt drinks about 2 pints and a sleeve of nips per day of [place]. As t/w walked up to pt, pt states I want to discharge. Pt declining labs. Pt provided with list of ATS facilities. Provider aware.
[2022-09-19 12:16] LABS: Amphetamine Screen Urine Not Detected (Not Detect); Barbiturates, Urine Not Detected (Not Detect); Benzodiazepines Screen Urine Not Detected (Not Detect); Cannabinoid Screen Urine Not Detected (Not Detect); Cocaine Screen Urine Not Detected (Not Detect); Fentanyl, urine Not Detected (Not Detect); Opiate Screen Urine Not Detected (Not Detect); Phencyclidine Screen Urine Not Detected (Not Detect)
[2022-09-19 12:18] LABS: Bacteria Urine None Seen (None Seen); Hyaline Casts Urine 0-2 /LPF (0-2); RBC Urine 0-2 /HPF (0-2); Squamous Epithelial Cell Urine 0-2 /HPF (0-2); UACC Culture Trigger YES; WBC Urine 0-5 /HPF (0-5)
== END 2022-09-19 12:11 | disposition home or self-care (01) ==
PROVIDERS: Physician Assistant; Emergency Provider Emergency Medicine
DX: F10.10 Alcohol abuse, uncomplicated (principal); Z79.899 Other long term (current) drug therapy
CPT/HCPCS: 80307; 81001; 81003; 87086; 99284

== ENCOUNTER 2022-09-22 11:13 | Emergency (ER) | payer OTHER, SELFPAY ==
[2022-09-22 11:41] VITALS: BP 116/74; BP 133/79; PULSE 70; PULSE 80; RESP 18; TEMP 36.4; O2SAT 94; O2SAT 98; BMI 22.0
--- NOTE | 2022-09-22 12:30 | PC.NURSE ---
recovery in speaking with patient about placement in detox.
--- NOTE | 2022-09-22 12:38 | PC.NURSE ---
pt a&ox3, vss aside from fluctuating O2 (86%-95%), pt coming in looking for detox, pt states that his last drink was yesterday in the morning - 2 pints of southern comfort. recovery couch bedside assessing pt to formulate a plan. CIWA score 2. currently in no apparent distress.
--- NOTE | 2022-09-22 12:40 | MHC.RECOVSUP ---
Addendum entered by Boom Ha 09/22/22 18:33: PT was accepted to [facility] but then decided he wanted to go home instead before doing his phone screen. Addendum entered by Boom Ha 09/22/22 16:22: ATS bed search has been exhausted at this time, Pt and provider aware. Pt encouraged to follow up from the community. Original Note: Met with pt in ED13 who is here for CARMEN. Pt reports drinking about 2 pints of southern comfort a day with his last drink yesterday morning. Pt is currently interested in ATS but only locally. ATS bed search in process. pt has no other questions or concerns at this time.
--- NOTE | 2022-09-22 12:43 | PC.NURSE ---
did not complete COW scale as patient does not take drugs.
[2022-09-22 13:05] LABS: Basophils Absolute Auto 0.1 X10*3/uL (0.0-0.2); Basophils Percent Auto 1.6 % (0-2); Eosinophils Absolute Auto 0.1 X10*3/uL (0.0-0.4); Eosinophils Percent Auto 2.3 % (0-4); Hematocrit 38.1 % (42.0-52.0); Hemoglobin 12.4 g/dl (14.0-18.0); Imm Gran Abs Auto 0.01 X10*3/uL (0.00-0.03); Imm Gran Pct Auto 0.3 % (0.0-0.4); Lymphocytes Absolute Auto 1.6 X10*3/uL (1.2-4.9); Lymphocytes Percent Auto 52.8 % (20-40); MANUAL DIFF FLAG SCAN; Mean Corpuscular HGB Conc 32.5 g/dl (31.0-36.0); Mean Corpuscular Hemoglobin 28.6 pg (27.0-33.0); Mean Platelet Volume 8.8 fL (9.4-12.4); Monocytes Absolute Auto 0.4 X10*3/uL (0.1-1.2); Monocytes Percent Auto 12.1 % (2-11); Neutrophils Percent Auto 30.9 % (45-73); Platelet Count 114 X10*3/uL (160-400); Red Blood Count 4.33 X10*6/uL (4.60-5.80); Red Cell Distribution Width 16.2 % (11.0-16.0); SCAN SMEAR FLAG 1; White Blood Count 3.1 X10*3/uL (4.8-10.8)
[2022-09-22 13:17] LABS: Amphetamine Screen Urine Not Detected (Not Detect); Barbiturates, Urine Not Detected (Not Detect); Benzodiazepines Screen Urine Not Detected (Not Detect); Cannabinoid Screen Urine Not Detected (Not Detect); Cocaine Screen Urine Not Detected (Not Detect); Fentanyl, urine Not Detected (Not Detect); Opiate Screen Urine Not Detected (Not Detect); Phencyclidine Screen Urine Not Detected (Not Detect)
[2022-09-22 13:19] LABS: Alanine Aminotransferase 102 U/L (0-40); Albumin Level 3.9 g/dL (3.5-5.0); Alkaline Phosphatase 133 U/L (39-117); Anion Gap 13 (12-20); Aspartate Amino Transferase 186 U/L (5-37); Bilirubin Total 0.7 mg/dL (0.0-1.0); Blood Urea Nitrogen 10 mg/dL (9-16); Calcium 8.7 mg/dL (8.4-10.2); Carbon Dioxide 30 mmol/L (22-29); Chloride 104 mmol/L (96-108); Creatinine Clr Calc Pharmacy 90.1; Estimated Glomerular Filt Rate > 60; Ethanol 379 mg/dL; Glucose Random 84 mg/dL (60-115); Potassium 3.7 mmol/L (3.3-5.1); Sodium 143 mmol/L (135-145); Total Protein 7.4 g/dL (6.5-8.0)
[2022-09-22 13:22] LABS: SLIDE REVIEW VERIFIED
--- NOTE | 2022-09-22 13:31 | ED_ITS ---
HPI - Alcohol General Chief Complaint: ETOH/Substance Use Stated Complaint: ETOH USE, MEDICAL EVAL PER EMS Time Seen by Provider: 09/22/22 12:59 History of Present Illness HPI narrative: Patient is a 62-year-old male presents today with wanting test stop drinking alcohol. Patient just finished drinking alcohol this morning. Denies any other recreational drugs. Has no specific complaints. Came in for help. Related Data Home Medications Medication Instructions Recorded Confirmed albuterol sulfate 90 mcg/actuation 1 puff inhalation QID PRN 08/29/22 08/29/22 aerosol inhaler Shortness Of Breath Or Wheezing apixaban 5 mg tablet (Eliquis) 5 mg PO BID 08/29/22 08/29/22 docusate sodium 100 mg capsule 100 mg PO DAILY 08/29/22 08/29/22 gabapentin 300 mg capsule 300 mg PO BID 08/29/22 08/29/22 ipratropium 20 mcg-albuterol 100 1 puff inhalation QID 08/29/22 08/29/22 mcg/actuation mist for inhalation (Combivent Respimat) naltrexone 50 mg tablet 50 mg PO BID 08/29/22 08/29/22 Previous Rx's Medication Instructions Recorded apixaban 5 mg tablet (Eliquis) 5 mg PO BID #60 tabs 09/10/22 albuterol sulfate 90 mcg/actuation 2 inh inhalation Q6H PRN shortness 09/22/22 breath activated powder inhaler of breath #1 ea apixaban 5 mg tablet (Eliquis) 5 mg PO BID Anticoagulation #60 09/22/22 tabs Allergies Allergy/AdvReac Type Severity Reaction Status Date / Time Peanut Butter Allergy Facial Verified 09/22/22 11:41 Swelling raspberry Allergy Facial Verified 09/17/22 20:09 Swelling Review of Systems Review of Systems: No chest pain or shortness breath no nausea no systemic complaints Yes all other systems are reviewed and are negative PMFSH Past Medical History Attestation statement: The following information was validated with the patient. Medical History Acute and chronic respiratory failure with hypoxia Alcohol abuse Alcohol use disorder, severe, dependence Asthma COPD (chronic obstructive pulmonary disease) COPD (chronic obstructive pulmonary disease) DVT (deep venous thrombosis) Neuropathy Presence of IVC filter Subdural hematoma Tobacco abuse Social History Social History Household Members: None Housing: House Do you presently have visiting nurse or other home services: No Alcohol intake: current Alcohol intake frequency: 3 or more drinks per day Alcohol type: hard liquor Patient Tobacco Use Status: Current everyday Tobacco user Tobacco use type: Cigarette Cigarette Packs Per Day: 1 Cigarettes Per Day: 20.0 e-Cigarette/Vaping Use: Never Used Second Hand Smoke Exposure: No Substance Use Type: Marijuana Advance Directives: Yes Advance Directives on File: Yes Advance Directives Date on File: 03/05/22 service: No Current occupational status: disabled Physical Exam ED Vital Signs: Vital Signs - 24 hr 09/22/22 11:41 09/22/22 14:00 Temperature 97.6 F 98.0 F Pulse Rate 70 86 Respiratory Rate 18 18 Blood Pressure 116/74 111/65 Pulse Oximetry 94 92 Oxygen Delivery Method Room Air Room Air BMI result Body Mass Index 22.0 Appearance: Alert. Oriented X3. No acute distress. Eyes: Pupils equal, round and reactive to light. ENT: Pharynx normal. Neck: Normal inspection. Neck supple. No lymph nodes noted. No crepitus CVS: Normal heart rate and rhythm. Pulses normal. Normal S1 and S2 Respiratory: No respiratory distress. Breath sounds normal. No Wheezing. No rales Abdomen: Soft and nontender. No rigidity. No distention. good BS x4 Skin: Skin warm and dry. Normal skin color. Normal skin turgor. Extremities: No lower extremity edema. Neurovascular intact to all extremities. No Lacerations. No Rash Neuro: Oriented X 3. No motor deficit. No sensory deficit. Moving all extermities. No slurred speech Medical Decision Making Medical Decision Making MDM Narrative: Positive ETOH. Denies any head injury. He is on Eliquis. Patient has a h istory of DVT. Alcohol is over 350. Patient's urine tox screen was otherwise negative. Electrolyte is baseline hemoglobin is baseline will get substance abuse value stream coach involved to help with his detox. Patient is seen by substance abuse value stream coach. Will help patient after he becomes more sober. Currently in stable condition Patient is seen by substance abuse value stream coach. [facility] him a bed [facility] They will accept him. Patient wants to go. In stable condition. Differential Diagnosis Differential Diagnoses: The differential diagnosis associated with the presentation includes Alcohol intoxication Consult Healthcare Provider Management of the patient was discussed with: Behavioral Health Provider Substance abuse value stream coach Lab Data MDM Lab Attestation statement: I reviewed the patient's lab results. 09/22/22 12:56 09/22/22 12:56 Labs: Lab Results 09/22/22 09/22/22 09/22/22 Range/Units 12:56 12:56 12:56 WBC 3.1 L (4.8-10.8) X10*3/uL RBC 4.33 L (4.60-5.80) X10*6/uL Hgb 12.4 L (14.0-18.0) g/dl Hct 38.1 L (42.0-52.0) % MCV 88.0 (80.0-98.0) fL MCH 28.6 (27.0-33.0) pg MCHC 32.5 (31.0-36.0) g/dl RDW 16.2 H (11.0-16.0) % Plt Count 114 L (160-400) X10*3/uL MPV 8.8 L (9.4-12.4) fL Immature Gran % (Auto) 0.3 (0.0-0.4) % Neut % (Auto) 30.9 L (45-73) % Lymph % (Auto) 52.8 H (20-40) % [place] % (Auto) 12.1 H (2-11) % Eos % (Auto) 2.3 (0-4) % Baso % (Auto) 1.6 (0-2) % Lymph # (Auto) 1.6 (1.2-4.9) X10*3/uL [place] # (Auto) 0.4 (0.1-1.2) X10*3/uL Eos # (Auto) 0.1 (0.0-0.4) X10*3/uL Baso # (Auto) 0.1 (0.0-0.2) X10*3/uL Abs Immat Gran (auto) 0.01 (0.00-0.03) X10*3/uL Absolute Neuts (auto) 1.0 L (2.0-8.3) x10*3/uL Absolute Nucleated RBC 0.000 (0.0-0.012) X10*3/uL Nucleated RBC % (auto) 0.0 (0.0-0.2) /100WBC Smear Tech's Comments VERIFIED Sodium 143 (135-145) mmol/L Potassium 3.7 D (3.3-5.1) mmol/L Chloride 104 (96-108) mmol/L Carbon Dioxide 30 H (22-29) mmol/L Anion Gap 13 (12-20) BUN 10 (9-16) mg/dL Creatinine 0.79 (0.5-1.4) mg/dL Estim Creat Clear Calc 90.1 Estimated GFR > 60 Random Glucose 84 (60-115) mg/dL Calcium 8.7 (8.4-10.2) mg/dL Total Bilirubin 0.7 (0.0-1.0) mg/dL AST 186 H (5-37) U/L ALT 102 H (0-40) U/L Alkaline Phosphatase 133 H (39-117) U/L Total Protein 7.4 (6.5-8.0) g/dL Albumin 3.9 (3.5-5.0) g/dL Urine Opiates Screen Not Detected (Not Detect) Urine Fentanyl Screen Not Detected (Not Detect) Ur Barbiturates Screen Not Detected (Not Detect) Ur Phencyclidine Scrn Not Detected (Not Detect) Ur Amphetamines Screen Not Detected (Not Detect) U Benzodiazepines Scrn Not Detected (Not Detect) Urine Cocaine Screen Not Detected (Not Detect) U Marijuana (THC) Screen Not Detected (Not Detect) Ethyl Alcohol 379 H* mg/dL Chronic Conditions Alcohol intoxication Social Determinants Patient?s care significantly limited by Social Determinants of Health including: Alcoholism and drug addiction in family Discharge Plan Discharge Clinical Impression: Alcohol abuse, Alcoholic intoxication Patient Disposition: Home, Self-Care Instructions: Alcohol Intoxication (ED) Additional Instructions: Please stop drinking alcohol. Please stick with rehab Prescriptions: New Eliquis 5 mg tablet 5 mg PO BID Qty: 60 0RF albuterol sulfate 90 mcg/actuation aerosol powdr breath activated 2 inh inhalation Q6H PRN (Reason: shortness of breath) Qty: 1 0RF No Action naltrexone 50 mg tablet 50 mg PO BID docusate sodium 100 mg capsule 100 mg PO DAILY gabapentin 300 mg capsule 300 mg PO BID albuterol sulfate 90 mcg/actuation HFA aerosol inhaler 1 puff inhalation QID PRN (Reason: Shortness Of Breath Or Wheezing) Eliquis 5 mg tablet 5 mg PO BID Combivent Respimat 20-100 mcg/actuation mist 1 puff inhalation QID Eliquis 5 mg tablet 5 mg PO BID Qty: 60 0RF Referrals: Cristhian Delgado MD [Primary Care Provider] -
[2022-09-22 14:00] VITALS: BP 111/65; PULSE 86; RESP 18; TEMP 36.7; O2SAT 92
--- NOTE | 2022-09-22 15:55 | PC.NURSE ---
pt a&ox3, calm and cooperative, woke pt to assess CIWA. CIWA = 3, vss aside from fluctuating O2%, pt resting comfortably in no apparent distress.
--- NOTE | 2022-09-22 16:13 | PC.NURSE ---
women's soccer coach did a detox bed search for the patient- no beds are available today- pt was notified this, pt stated well I dont feel well enough to leave, they cannot kick me out.
--- NOTE | 2022-09-22 18:09 | PC.NURSE ---
pt is now wanting to discharge to home despite head golf coach finding a detox bed for him. the head golf coach is in room speaking with he patient about going to detox vs back home, will see the outcome and if the patient is willing to go.
== END 2022-09-22 20:30 | disposition home or self-care (01) ==
PROVIDERS: Emergency Provider Emergency Medicine Emergency Medical Services; PCP Internal Medicine
DX: F10.129 Alcohol abuse with intoxication, unspecified (principal); Y90.8 Blood alcohol level of 240 mg/100 ml or more; F17.210 Nicotine dependence, cigarettes, uncomplicated; F12.90 Cannabis use, unspecified, uncomplicated; Z79.899 Other long term (current) drug therapy
CPT/HCPCS: 36415; 80053; 80307; 85025; 99285

== ENCOUNTER 2022-10-07 14:19 | Inpatient (IN) | payer OTHER, SELFPAY ==
--- NOTE | ~2022-10-07 | XR_ITS ---
EXAMINATION: XR CHEST CLINICAL INFORMATION: Admission, coarse lung sounds. COMPARISON: 05/29/2022 chest radiograph. TECHNIQUE: Frontal view of the chest was obtained. FINDINGS: No significant abnormality is noted involving the heart, lungs, mediastinum, bony thorax or soft tissues. XR/XR chest 1V IMPRESSION: No acute cardiopulmonary process.
--- NOTE | ~2022-10-07 | CT_ITS ---
EXAMINATION: CT PELVIS WITH CONTRAST CLINICAL INFORMATION: Necrotic gluteal wound. COMPARISON: 02/06/2022 TECHNIQUE: Helical scanning was performed with submillimeter collimation through the pelvis with the use of oral contrast and during bolus intravenous injection of 85 mL of Omnipaque 350 intravenous contrast. Sagittal and coronal multiplanar 2-D reconstructions were obtained. This CT examination was performed using dose optimization techniques as appropriate, variously including the following: *Automated exposure control *Adjustment of mA and/or kV according to patient size (this includes techniques or standardized protocols for targeted exams where dose is matched to indication/reason for exam; i.e. extremities or head) *Use of iterative reconstruction technique DLP: 271 mGy-cm FINDINGS: PELVIS: Normally distended bladder without wall thickening. Normal appearance of the visualized bowel. No obstruction or wall thickening. Prostate and seminal vesicles are unremarkable. No lymphadenopathy. Normal caliber aorta with moderate atherosclerotic calcifications. Partially visualized IVC filter. No abdominal wall hernia. There is stranding at the medial aspect of the left gluteal region. Heterogeneous appearance of the medial aspect of the left gluteus fredy muscle. This is a change from 02/06/2022. No rim-enhancing collection is seen at this time. OSSEOUS STRUCTURES: No acute or suspicious osseous abnormality. No osseous erosions. Mild degenerative changes in the visualized spine and hips. CT/CT pelvis w IV con IMPRESSION: Heterogeneous appearance of the medial aspect of the left gluteus fredy muscle with adjacent stranding. This is a change from 02/06/2022. No rim-enhancing collection is seen at this time. This may represent edema or early phlegmonous change. No drainable collection.
--- NOTE | 2022-10-07 14:28 | ED.ALCOHOL ---
HPI - Alcohol General Chief Complaint: ETOH/Substance Use Stated Complaint: Alcohol withdrawal per EMS Time Seen by Provider: 10/07/22 14:27 Source: patient, EMS, RN notes reviewed and old records reviewed Mode of arrival: EMS History of Present Illness HPI narrative: 62-year-old male with a past medical history of COPD, DVT, asthma, ETOH dependence, presenting to the ED via EMS complaining of buttock/rectal pain x few days, and chronic paresthesias. States he has been sober x3 days, however states he is feeling withdrawal symptoms. Denies known fever/chills, abdominal pain, nausea/vomiting, pain with defecation/rectal bleeding, dysuria/hematuria. Denies illicit drug use MD complaint: alcohol intoxication and alcohol dependence Related Data Home Medications Medication Instructions Recorded Confirmed albuterol sulfate 90 mcg/actuation 1 puff inhalation Q4H PRN 08/29/22 10/07/22 aerosol inhaler Shortness Of Breath Or Wheezing apixaban 5 mg tablet (Eliquis) 5 mg PO BID 08/29/22 10/07/22 ipratropium 20 mcg-albuterol 100 1 puff inhalation QID PRN 08/29/22 10/07/22 mcg/actuation mist for inhalation Shortness Of Breath (Combivent Respimat) Allergies Allergy/AdvReac Type Severity Reaction Status Date / Time Peanut Butter Allergy Facial Verified 09/22/22 11:41 Swelling raspberry Allergy Facial Verified 09/17/22 20:09 Swelling Review of Systems Review of Systems: Constitutional: No Fever, No Chills, No Fatigue, No Malaise ENT/Mouth: No Ear Pain, No Nasal Congestion, No sore throat, No Rhinorrhea, No Swallowing Difficulty Eyes: No Eye Pain, No Swelling, No Redness, No Vision Changes Cardiovascular: No Chest Pain, No SOB, No Edema, No Palpitations Respiratory: No Cough, No Sputum, No Dyspnea Gastrointestinal: No Nausea, No Vomiting, No Diarrhea, No Constipation, No Abdominal pain Genitourinary: +rectal pain, No irregular bleeding, No Dysuria, No Hematuria, No Flank Pain Musculoskeletal: No joint pain, No Myalgias, No Joint Swelling Skin: + Skin Lesions, No rash Neuro: No Weakness, No Numbness, No Paresthesias, No Loss of Consciousness, No Dizziness, No Headache Yes all other systems are reviewed and are negative Constitutional: Constitutional: Reports as per [facility] Past Medical History Attestation statement: The following information was validated with the patient. Source: old records reviewed Medical History Acute and chronic respiratory failure with hypoxia Alcohol abuse Alcohol use disorder, severe, dependence Asthma COPD (chronic obstructive pulmonary disease) COPD (chronic obstructive pulmonary disease) DVT (deep venous thrombosis) Neuropathy Presence of IVC filter Subdural hematoma Tobacco abuse Social History Social History Household Members: None Housing: House Do you presently have visiting nurse or other home services: No Alcohol intake: current Alcohol intake frequency: 3 or more drinks per day Alcohol type: hard liquor Patient Tobacco Use Status: Current everyday Tobacco user Tobacco use type: Cigarette Cigarette Packs Per Day: 1 Cigarettes Per Day: 20.0 Smoked in Last 30 Days: No e-Cigarette/Vaping Use: Never Used Second Hand Smoke Exposure: No Use of substances other than those prescribed or required for medical reasons: No Substance Use Type: Marijuana Advance Directives: Yes Advance Directives on File: Yes Advance Directives Date on File: 03/05/22 service: No Current occupational status: disabled Physical Exam ED Vital Signs: Vital Signs - 24 hr 10/07/22 14:29 10/07/22 16:02 10/07/22 16:25 Temperature 97.7 F Pulse Rate 80 92 90 Respiratory Rate 16 16 Blood Pressure 145/76 H 127/76 Pulse Oximetry 96 90 L Oxygen Delivery Method Room Air Room Air BMI result Body Mass Index 24.6 Const General: cooperative, healthy appearing and no acute distress Orientation/consciousness: patient oriented x3 Limitations: no limitations HENMT Head: Yes normal to inspection and Yes atraumatic Ears: hearing grossly normal bilaterally General nose exam: Normal external nose present Face and sinus: Yes normal facial exam Eyes General: appearance normal, both eyes and all related structures EOM: EOMs intact bilaterally Neck Neck: Yes normal visual inspection and Yes no meningeal signs Resp Other: Coarse lung sounds Effort & Inspection: normal respiratory effort and no respiratory distress Cardio Rate: regular rate Heart sounds: S1 normal heart sound present and S2 normal heart sound present GI Other: Please refer to images above. Necrotic wound noted to left buttock with central blackening, surrounding erythema, skin maceration, induration and tenderness. No fluctuance. No expressible drainage. No perineal involvement Inspection: Yes normal to inspection Palpation (GI): Soft to palpation, nontender, no guarding and not rigid Scrotum: scrotum normal Skin Rashes: no rashes Wounds: no wounds Neuro General: patient oriented x3, tone normal and no meningeal signs Gait exam (Neuro): Normal gait present Extrem General: Yes normal to inspection Course Course Course Narrative: -1618--no leukocytosis. H&H stable -CXR unremarkable -general surgery, Dr. Goel aware -1630--ED care transferred to [facility] and pending remaining labs, CT, and admission Medical Decision Making Medical Decision Making [facility] Narrative: 62-year-old male with a past medical history of COPD, DVT, asthma, ETOH dependence, presenting to the ED via EMS complaining of buttock/rectal pain x few days, and chronic paresthesias. On exam vital signs stable, NAD, nontoxic appearing, lungs with coarse lung sounds, abdomen soft/nontender, please refer to images above of buttock necrotic wound/cellulitis. Concern for necrosis/cellulitis vs deeper infection/abscess/edema. No evidence of EtOH withdrawal at this time. Concern for chronic ETOH dependence. Low suspicion for Jeovany gangrene Plan: Labs, lactic/blood cultures, UA, CXR, CT pelvis, empiric IV antibiotics, admission Please refer to course for remaining clinical decision making, interpretation of labs/imaging results, and discussions with consultants and/or family members. Differential Diagnosis Differential Diagnoses: The differential diagnosis associated with the presentation includes As above Admission/Observation Consideration of admission/observation: Escalation of care including admission/observation considered Consult Healthcare Provider Management of the patient was discussed with: Hospitalist and Log Rider (General surgery, Dr. Goel) Lab Data [facility] Lab Attestation statement: I reviewed the patient's lab results. 10/07/22 15:40 10/07/22 15:40 Labs: Lab Results 10/07/22 10/07/22 10/07/22 Range/Units 15:40 15:40 15:40 WBC 7.3 (4.8-10.8) X10*3/uL RBC 4.08 L (4.60-5.80) X10*6/uL Hgb 12.1 L (14.0-18.0) g/dl Hct 35.5 L (42.0-52.0) % MCV 87.0 (80.0-98.0) fL MCH 29.7 (27.0-33.0) pg MCHC 34.1 (31.0-36.0) g/dl RDW 15.7 (11.0-16.0) % Plt Count 293 D (160-400) X10*3/uL MPV 9.2 L (9.4-12.4) fL Immature Gran % (Auto) 0.8 H (0.0-0.4) % Neut % (Auto) 81.9 H (45-73) % Lymph % (Auto) 7.8 L (20-40) % [place] % (Auto) 8.5 (2-11) % Eos % (Auto) 0.5 (0-4) % Baso % (Auto) 0.5 (0-2) % Lymph # (Auto) 0.6 L (1.2-4.9) X10*3/uL [place] # (Auto) 0.6 (0.1-1.2) X10*3/uL Eos # (Auto) 0.0 (0.0-0.4) X10*3/uL Baso # (Auto) 0.0 (0.0-0.2) X10*3/uL Abs Immat Gran (auto) 0.06 H (0.00-0.03) X10*3/uL Absolute Neuts (auto) 6.0 (2.0-8.3) x10*3/uL Absolute Nucleated RBC 0.000 (0.0-0.012) X10*3/uL Nucleated RBC % (auto) 0.0 (0.0-0.2) /100WBC ESR 77 H (0-15) MM/HR PT (11.1-13.3) SEC INR (0.9-1.1) Sodium 133 L (135-145) mmol/L Potassium 3.1 L (3.3-5.1) mmol/L Chloride 89 L (96-108) mmol/L Carbon Dioxide 29 (22-29) mmol/L Anion Gap 18 (12-20) BUN 7 L (9-16) mg/dL Creatinine 0.73 (0.5-1.4) mg/dL Estim Creat Clear Calc 101.5 Estimated GFR > 60 Random Glucose 113 (60-115) mg/dL Lactic Acid (0.5-2.0) mmol/L Calcium 9.2 (8.4-10.2) mg/dL Magnesium 1.2 L* (1.6-2.6) mg/dL Total Bilirubin 1.8 H (0.0-1.0) mg/dL Direct Bilirubin 1.0 H (0.0-0.5) mg/dL AST 44 H (5-37) U/L ALT 51 H (0-40) U/L Alkaline Phosphatase 129 H (39-117) U/L Total Creatine Kinase 101 (38-174) U/L C-Reactive Protein 17.97 H (< or = 0.50) mg/dL Total Protein 7.5 (6.5-8.0) g/dL Albumin 3.6 (3.5-5.0) g/dL Urine Color Urine Appearance Urine pH (5.0-9.0) Ur Specific [place] (1.005-1.025) Urine Protein (Neg-Trace) mg/dL Urine Glucose (UA) (Negative) mg/dL Urine Ketones (Negative) mg/dL Urine Blood (Negative) Urine Nitrite (Negative) Ur Leukocyte Esterase (Negative) Urine RBC (0-2) /HPF Urine WBC (0-5) /HPF Ur Squamous Epith Cells (0-2) /HPF Urine Bacteria (None Seen) Hyaline Casts (0-2) /LPF Urine Opiates Screen (Not Detect) Urine Fentanyl Screen (Not Detect) Ur Barbiturates Screen (Not Detect) Ur Phencyclidine Scrn (Not Detect) Ur Amphetamines Screen (Not Detect) U Benzodiazepines Scrn (Not Detect) Urine Cocaine Screen (Not Detect) U Marijuana (THC) Screen (Not Detect) Ethyl Alcohol < 10 mg/dL 10/07/22 10/07/22 10/07/22 Range/Units 15:40 15:40 17:36 WBC (4.8-10.8) X10*3/uL RBC (4.60-5.80) X10*6/uL Hgb (14.0-18.0) g/dl Hct (42.0-52.0) % MCV (80.0-98.0) fL MCH (27.0-33.0) pg MCHC (31.0-36.0) g/dl RDW (11.0-16.0) % Plt Count (160-400) X10*3/uL MPV (9.4-12.4) fL Immature Gran % (Auto) (0.0-0.4) % Neut % (Auto) (45-73) % Lymph % (Auto) (20-40) % [place] % (Auto) (2-11) % Eos % (Auto) (0-4) % Baso % (Auto) (0-2) % Lymph # (Auto) (1.2-4.9) X10*3/uL [place] # (Auto) (0.1-1.2) X10*3/uL Eos # (Auto) (0.0-0.4) X10*3/uL Baso # (Auto) (0.0-0.2) X10*3/uL Abs Immat Gran (auto) (0.00-0.03) X10*3/uL Absolute Neuts (auto) (2.0-8.3) x10*3/uL Absolute Nucleated RBC (0.0-0.012) X10*3/uL Nucleated RBC % (auto) (0.0-0.2) /100WBC ESR (0-15) MM/HR PT 21.5 H (11.1-13.3) SEC INR 1.8 H (0.9-1.1) Sodium (135-145) mmol/L Potassium (3.3-5.1) mmol/L Chloride (96-108) mmol/L Carbon Dioxide (22-29) mmol/L Anion Gap (12-20) BUN (9-16) mg/dL Creatinine (0.5-1.4) mg/dL Estim Creat Clear Calc Estimated GFR Random Glucose (60-115) mg/dL Lactic Acid 2.5 H* (0.5-2.0) mmol/L Calcium (8.4-10.2) mg/dL Magnesium (1.6-2.6) mg/dL Total Bilirubin (0.0-1.0) mg/dL Direct Bilirubin (0.0-0.5) mg/dL AST (5-37) U/L ALT (0-40) U/L Alkaline Phosphatase (39-117) U/L Total Creatine Kinase (38-174) U/L C-Reactive Protein (< or = 0.50) mg/dL Total Protein (6.5-8.0) g/dL Albumin (3.5-5.0) g/dL Urine Color Yellow Urine Appearance Clear Urine pH 6.5 (5.0-9.0) Ur Specific [place] <= 1.005 (1.005-1.025) Urine Protein Negative (Neg-Trace) mg/dL Urine Glucose (UA) Negative (Negative) mg/dL Urine Ketones Negative (Negative) mg/dL Urine Blood Trace H (Negative) Urine Nitrite Negative (Negative) Ur Leukocyte Esterase Negative (Negative) Urine RBC 3-5 H (0-2) /HPF Urine WBC 0-5 (0-5) /HPF Ur Squamous Epith Cells 0-2 (0-2) /HPF Urine Bacteria None Seen (None Seen) Hyaline Casts 0-2 (0-2) /LPF Urine Opiates Screen (Not Detect) Urine Fentanyl Screen (Not Detect) Ur Barbiturates Screen (Not Detect) Ur Phencyclidine Scrn (Not Detect) Ur Amphetamines Screen (Not Detect) U Benzodiazepines Scrn (Not Detect) Urine Cocaine Screen (Not Detect) U Marijuana (THC) Screen (Not Detect) Ethyl Alcohol mg/dL 10/07/22 Range/Units 17:36 WBC (4.8-10.8) X10*3/uL RBC (4.60-5.80) X10*6/uL Hgb (14.0-18.0) g/dl Hct (42.0-52.0) % MCV (80.0-98.0) fL MCH (27.0-33.0) pg MCHC (31.0-36.0) g/dl RDW (11.0-16.0) % Plt Count (160-400) X10*3/uL MPV (9.4-12.4) fL Immature Gran % (Auto) (0.0-0.4) % Neut % (Auto) (45-73) % Lymph % (Auto) (20-40) % [place] % (Auto) (2-11) % Eos % (Auto) (0-4) % Baso % (Auto) (0-2) % Lymph # (Auto) (1.2-4.9) X10*3/uL [place] # (Auto) (0.1-1.2) X10*3/uL Eos # (Auto) (0.0-0.4) X10*3/uL Baso # (Auto) (0.0-0.2) X10*3/uL Abs Immat Gran (auto) (0.00-0.03) X10*3/uL Absolute Neuts (auto) (2.0-8.3) x10*3/uL Absolute Nucleated RBC (0.0-0.012) X10*3/uL Nucleated RBC % (auto) (0.0-0.2) /100WBC ESR (0-15) MM/HR PT (11.1-13.3) SEC INR (0.9-1.1) Sodium (135-145) mmol/L Potassium (3.3-5.1) mmol/L Chloride (96-108) mmol/L Carbon Dioxide (22-29) mmol/L Anion Gap (12-20) BUN (9-16) mg/dL Creatinine (0.5-1.4) mg/dL Estim Creat Clear Calc Estimated GFR Random Glucose (60-115) mg/dL Lactic Acid (0.5-2.0) mmol/L Calcium (8.4-10.2) mg/dL Magnesium (1.6-2.6) mg/dL Total Bilirubin (0.0-1.0) mg/dL Direct Bilirubin (0.0-0.5) mg/dL AST (5-37) U/L ALT (0-40) U/L Alkaline Phosphatase (39-117) U/L Total Creatine Kinase (38-174) U/L C-Reactive Protein (< or = 0.50) mg/dL Total Protein (6.5-8.0) g/dL Albumin (3.5-5.0) g/dL Urine Color Urine Appearance Urine pH (5.0-9.0) Ur Specific [place] (1.005-1.025) Urine Protein (Neg-Trace) mg/dL Urine Glucose (UA) (Negative) mg/dL Urine Ketones (Negative) mg/dL Urine Blood (Negative) Urine Nitrite (Negative) Ur Leukocyte Esterase (Negative) Urine RBC (0-2) /HPF Urine WBC (0-5) /HPF Ur Squamous Epith Cells (0-2) /HPF Urine Bacteria (None Seen) Hyaline Casts (0-2) /LPF Urine Opiates Screen Not Detected (Not Detect) Urine Fentanyl Screen Not Detected (Not Detect) Ur Barbiturates Screen Not Detected (Not Detect) Ur Phencyclidine Scrn Not Detected (Not Detect) Ur Amphetamines Screen Not Detected (Not Detect) U Benzodiazepines Scrn Not Detected (Not Detect) Urine Cocaine Screen Not Detected (Not Detect) U Marijuana (THC) Screen Not Detected (Not Detect) Ethyl Alcohol mg/dL Independent Historian Clinical information obtained from an independent historian. History obtained from or confirmed by: EMS External Record Review External record reviewed: Inpatient record, Office record, Outpatient record, Prior outpatient labs, Prior outpatient radiology, Primary care record and Outside ED record Tests considered The following testing was considered but not selected: As above Prescription Management I considered prescription management with: Pain Medication and Antibiotic Social Determinants Patient?s care significantly limited by Social Determinants of Health including: Low income, Alcoholism and drug addiction in family, Problems related to primary support group, Unemployment and Other Social Determinant of Health Medications Administered Generic Name Dose Route Start Last Admin Trade Name Freq PRN Reason Stop Dose Admin Magnesium Sulfate 2 gm in 50 mls @ 25 mls/hr 10/07/22 17:26 10/07/22 18:25 Magnesium Sulfate/H2o IV 10/07/22 19:25 Infused ONCE ONE Infusion Discontinued Medications Generic Name Dose Route Start Last Admin Trade Name Freq PRN Reason Stop Dose Admin Albuterol/Ipratropium 3 ml 10/07/22 14:58 10/07/22 16:01 Albuterol/Iprat 2.5/0.5mg 3 Ml Ampul.Neb INHALE 10/07/22 14:59 3 ml ONCE ONE Administration Sodium Chloride 1,000 mls @ 999 mls/hr 10/07/22 14:45 10/07/22 17:08 Ns IV 10/07/22 15:45 Infused .Q1H1M NOHEMI Infusion Piperacillin Sod/Tazobactam 50 mls @ 100 mls/hr 10/07/22 14:45 10/07/22 16:13 Sod 3.375 gm/ Sodium Chloride IV 10/07/22 15:14 Infused ONCE ONE Infusion Vancomycin HCl 2,000 mg in 500 mls @ 250 mls/hr 10/07/22 15:00 10/07/22 16:09 Vancomycin/Ns IV 10/07/22 16:59 250 mls/hr ONCE ONE Administration Iohexol 100 ml 10/07/22 17:22 10/07/22 17:22 Iohexol 350 Mg/Ml 100 Ml Infus..Btl IV 10/07/22 17:23 85 ml ONCE ONE Administration Phenobarbital Sodium 218.4 mg 10/07/22 17:00 10/07/22 17:37 Phenobarbital Sodium 130 Mg/Ml Im Once IM 10/07/22 17:01 218.4 mg ONCE ONE Administration Protocol Potassium Chloride 40 meq 10/07/22 17:26 10/07/22 17:37 Potassium Chloride Er 20 Meq Tab.Er.Prt PO 10/07/22 17:27 40 meq ONCE ONE Administration Critical Care Time Critical Care Time Critical Care Time: Yes Total Critical Care Time: 45 Attestation: I have personally provided critical care time exclusive of time spent on separately billable procedures. Time includes review of lab data, radiology results, discussion with consultants, and monitoring for potential decompensation. Intervention performed as documented. Discharge Plan Discharge Clinical Impression: Necrosis, Alcohol dependence Patient Disposition: Still a Patient Prescriptions: No Action albuterol sulfate 90 mcg/actuation HFA aerosol inhaler 1 puff inhalation Q4H PRN (Reason: Shortness Of Breath Or Wheezing) Eliquis 5 mg tablet 5 mg PO BID Combivent Respimat 20-100 mcg/actuation mist 1 puff inhalation QID PRN (Reason: Shortness Of Breath)
[2022-10-07 14:29] VITALS: BP 145/76; PULSE 80; RESP 16; TEMP 36.5; O2SAT 96; BMI 24.6
--- NOTE | 2022-10-07 15:18 | PHA.MEDREC ---
Pharmacy Consult ? Medication Reconciliation Pharmacy has completed the medication reconciliation. Patient reported medications. Reports he has not taken gabapentin or naltrexone in ages. Silvia Martins, BiancaD
[2022-10-07] MEDS: 0.9 % Sodium Chloride 1,000 ML 999 ML IV (15:39)
--- NOTE | 2022-10-07 15:43 | PC.NURSE ---
Patient arrived from home with complaints of buttock pain. Upon assessment large pressure area noted to coccyx. Area with necrosis at center with yellow slough around edges. Patient stating he does not know how he got it- all he does is lay on the couch and watch tv.
--- NOTE | 2022-10-07 15:43 | MHC.RECOVSUP ---
Met with pt in ED22H who is here for CARMEN and reports a sore on his backside. Pt informs he has been sober for the past 3 days and is suffering from a sore on his backside that he thinks is rotting. Pt has been provided resources for recovery supports to follow up from the community.
[2022-10-07] MEDS: Piperacillin Sodium/Tazobactam 3.375 GM in 0.9 % Sodium Chloride 50 ML IV ×2 (15:45→21:55)
[2022-10-07 15:47] LABS: MANUAL DIFF FLAG NO
[2022-10-07 15:55] LABS: Basophils Percent Auto 0.5 % (0-2); Eosinophils Percent Auto 0.5 % (0-4); Hematocrit 35.5 % (42.0-52.0); Hemoglobin 12.1 g/dl (14.0-18.0); Imm Gran Abs Auto 0.06 X10*3/uL (0.00-0.03); Imm Gran Pct Auto 0.8 % (0.0-0.4); Lymphocytes Absolute Auto 0.6 X10*3/uL (1.2-4.9); Lymphocytes Percent Auto 7.8 % (20-40); Mean Corpuscular HGB Conc 34.1 g/dl (31.0-36.0); Mean Corpuscular Hemoglobin 29.7 pg (27.0-33.0); Mean Platelet Volume 9.2 fL (9.4-12.4); Monocytes Absolute Auto 0.6 X10*3/uL (0.1-1.2); Monocytes Percent Auto 8.5 % (2-11); Neutrophils Percent Auto 81.9 % (45-73); Platelet Count 293 X10*3/uL (160-400); Red Blood Count 4.08 X10*6/uL (4.60-5.80); Red Cell Distribution Width 15.7 % (11.0-16.0); White Blood Count 7.3 X10*3/uL (4.8-10.8)
[2022-10-07] MEDS: Albuterol/Iprat 2.5/0.5MG 3 ML AMPUL.NEB INHALE (16:01)
[2022-10-07 16:02] VITALS: PULSE 92; RESP 16; O2SAT 91
[2022-10-07] MEDS: vancomycin/NS 2,000 MG/500 ML PLAST..BAG 250 MG IV (16:09)
[2022-10-07 16:25] VITALS: BP 127/76; PULSE 90; O2SAT 90
[2022-10-07 16:35] LABS: INTERNATIONAL NORM RATIO 1.8 (0.9-1.1); Prothrombin Time 21.5 SEC (11.1-13.3)
[2022-10-07 16:41] LABS: Lactic Acid 2.5 mmol/L (0.5-2.0)
[2022-10-07 16:42] LABS: Alanine Aminotransferase 51 U/L (0-40); Albumin Level 3.6 g/dL (3.5-5.0); Alkaline Phosphatase 129 U/L (39-117); Anion Gap 18 (12-20); Aspartate Amino Transferase 44 U/L (5-37); Bilirubin Total 1.8 mg/dL (0.0-1.0); Blood Urea Nitrogen 7 mg/dL (9-16); C Reactive Protein 17.97 mg/dL (< or = 0.50); Calcium 9.2 mg/dL (8.4-10.2); Carbon Dioxide 29 mmol/L (22-29); Chloride 89 mmol/L (96-108); Creatinine Clr Calc Pharmacy 101.5; Estimated Glomerular Filt Rate > 60; Ethanol < 10 mg/dL; Glucose Random 113 mg/dL (60-115); Magnesium 1.2 mg/dL (1.6-2.6); Potassium 3.1 mmol/L (3.3-5.1); Sodium 133 mmol/L (135-145); Total Protein 7.5 g/dL (6.5-8.0)
--- NOTE | 2022-10-07 16:47 | PC.NURSE ---
Critical mg of 1.2 and lactic of 2.5 reported to PA
[2022-10-07 17:05] LABS: Erythrocyte Sedimentation Rate 77 MM/HR (0-15)
--- NOTE | 2022-10-07 17:09 | PHA.PROG ---
Admission Date/Time: Indication: Buttock Cellulitis Weight in k.482 kg Adjusted body weight in K.4 kg Distant body weight in K.4 kg Obesity Dosing Indication % IBW: 107% Serum Creatinine - Last 168 Hours 10/07/22 15:40 Creatinine 0.73 Estimated CrCl and GFR - Last 168 Hours 10/07/22 15:40 Estim Creat Clear Calc 101.5 Estimated GFR > 60 Vancomycin Loading Dose: 2000 mg Current Vancomycin Dosing Regimen: 1000 mg Q12H Date and Time for next Vancomycin Level to be drawn: 10/08 @ 1400 Pharmacist Comments on Vancomycin Plan: Patient receive an adequate load dose in the ER on 10/07 @ 1609 Maintenance dose vancomycin 1000 mg Q12H is scheduled to start 10/08 @ 0400. Expected AUC os 478 with a trough of 14.5. Level is scheduled for prior to the 3rd dose to be reviewed by pharmacy staff in house Pharmacy will monitor renal function daily Silvia Martins PharmD Vancomycin dosing will take advantage of [employer] as a clinical decision support tool that uses Bayesian modeling to calculate individual patient's pharmacokinetic parameters and forecast the patient's drug concentration time course with the target goal AUC 24 range of 400 - 600 mg/L/hr.
--- NOTE | 2022-10-07 17:10 | PC.NURSE ---
off at cat scan
[2022-10-07] MEDS: iohexoL 350 MG/ML 100 ML INFUS..BTL IV (17:22)
[2022-10-07] MEDS: PHENobarbitaL sodium 130 MG/ML IM ONCE 218.4 MG IM (17:37)
[2022-10-07] MEDS: Potassium Chloride ER 20 MEQ TAB.ER.PRT 40 MEQ PO (17:37)
[2022-10-07] MEDS: Magnesium Sulfate/H2O 2 GM/50 ML PIGGYBACK IV (17:38)
[2022-10-07 17:46] LABS: Reflex Lactate? Lactic Acid Added
[2022-10-07 18:09] LABS: Amphetamine Screen Urine Not Detected (Not Detect); Appearance Urine Clear; Barbiturates, Urine Not Detected (Not Detect); Benzodiazepines Screen Urine Not Detected (Not Detect); Cannabinoid Screen Urine Not Detected (Not Detect); Cocaine Screen Urine Not Detected (Not Detect); Color Urine Yellow; Fentanyl, urine Not Detected (Not Detect); Glucose Urine UA Negative (Negative); Leukocyte Esterase Urine Negative (Negative); Nitrite Urine Negative (Negative); Opiate Screen Urine Not Detected (Not Detect); PH 6.5 (5.0-9.0); Phencyclidine Screen Urine Not Detected (Not Detect); Specific Gravity - Urine <= 1.005 (1.005-1.025); UMIC TRIGGER UACC YES; Urine Blood Trace (Negative); Urine Ketones Negative (Negative); Urine Protein Negative (Neg-Trace)
[2022-10-07 18:35] LABS: Bacteria Urine None Seen (None Seen); Hyaline Casts Urine 0-2 /LPF (0-2); Squamous Epithelial Cell Urine 0-2 /HPF (0-2); WBC Urine 0-5 /HPF (0-5)
--- NOTE | 2022-10-07 19:36 | PC.NURSE ---
Pt a&ox3, no signs of distress. Pt sitting in bed watching tv. Plan of care ongoing.
[2022-10-07 19:43] LABS: ~Lactic Acid-LAB USE ONLY 2.5 mmol/L (0.5-2.0)
[2022-10-07] MEDS: PHENobarbitaL sodium 130 MG/ML VIAL IM Q3Hx2 165.1 MG IM ×2 (20:04→23:04)
[2022-10-07] MEDS: 0.9 % Sodium Chloride 1,000 ML 100 ML IVCONT (20:05)
[2022-10-07 21:13] LABS: Reflex Lactate? 2 Y
[2022-10-07 21:55] LABS: ~Lactic Acid-LAB USE ONLY 1.6 mmol/L (0.5-2.0)
--- NOTE | 2022-10-07 22:00 | PC.NURSE ---
Pt a&ox4, no signs of distress. Pt medicated per mar. Plan of care ongoing.
[2022-10-07 22:45] VITALS: BP 118/69; PULSE 90; O2SAT 93
--- NOTE | 2022-10-07 23:24 | MHC.EDTECH ---
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
[2022-10-08] VITALS (10 sets, daily range): BP systolic 101–135; BP diastolic 53–75; PULSE 66–97; RESP 14–20; TEMP 35.9–37; O2SAT 94–97; BMI 19.2; BMI 19.8
[2022-10-08] MEDS: Piperacillin Sodium/Tazobactam 3.375 GM in 0.9 % Sodium Chloride 50 ML IV ×4 (04:15→21:44)
[2022-10-08] MEDS: vancomycin HCL 1,000 MG in 0.9 % Sodium Chloride 250 ML 270 MG IV ×2 (05:24→17:42)
[2022-10-08] MEDS: Morphine Sulfate 2 MG/ML CARTRIDGE IM (05:26)
[2022-10-08] MEDS: 0.9 % Sodium Chloride 1,000 ML 100 ML IVCONT ×2 (06:40→16:34)
--- NOTE | 2022-10-08 06:58 | PM.IMHP ---
History of Present Illness Date of Service: 10/07/22 Chief Complaint: Gluteal abscess and cellulitis 61-year-old male with pertinent history of alcohol use disorder, copd, tobacco use disorder, DVT on Eliquis here with several days of buttock and rectal pain, difficulty sitting. He has no fever WBC is normal, appear to have abscess and definately cellulitis--see pictures. CT of pelvis is pending. Additionally, he has not drank in at least 3 dasys and [facility] Acute and chronic respiratory failure with hypoxia Alcohol abuse Alcohol use disorder, severe, dependence Asthma COPD (chronic obstructive pulmonary disease) COPD (chronic obstructive pulmonary disease) DVT (deep venous thrombosis) Neuropathy Presence of IVC filter Subdural hematoma Tobacco abuse Social History Household Members: None Housing: House Do you presently have visiting nurse or other home services: No Alcohol intake: current Alcohol intake frequency: 3 or more drinks per day Alcohol type: hard liquor Patient Tobacco Use Status: Current everyday Tobacco user Tobacco use type: Cigarette Cigarette Packs Per Day: 1 Cigarettes Per Day: 20.0 Smoked in Last 30 Days: No e-Cigarette/Vaping Use: Never Used Second Hand Smoke Exposure: No Use of substances other than those prescribed or required for medical reasons: No Substance Use Type: Marijuana Advance Directives: Yes Advance Directives on File: Yes Advance Directives Date on File: 03/05/22 service: No Current occupational status: disabled Meds Allergies Allergy/AdvReac Type Severity Reaction Status Date / Time Peanut Butter Allergy Facial Verified 09/22/22 11:41 Swelling raspberry Allergy Facial Verified 09/17/22 20:09 Swelling Active Medications: Current Medications Acetaminophen (Acetaminophen 325 Mg Tablet) 650 mg PO Q6H PRN PRN Reason: Pain, Mild (Pain Scale 1-3) Albuterol Sulfate (Albuterol Sulfate 90 Mcg 8 Gm Inhaler) 1 puff INHALE Q4H PRN PRN Reason: Shortness Of Breath Or Wheezing Albuterol/Ipratropium (Albuterol/Iprat 2.5/0.5mg 3 Ml Ampul.Neb) 3 ml INHALE QID PRN PRN Reason: Shortness Of Breath Docusate Sodium (Docusate Sodium 100 Mg Capsule) 100 mg PO DAILY PRN PRN Reason: Constipation Folic Acid (Folic Acid 1 Mg Tablet) 1 mg PO DAILY [facility] Stop: 10/10/22 09:01 Piperacillin Sod/Tazobactam (Sod 3.375 gm/ Sodium Chloride) 50 mls @ 100 mls/hr IV Q6H [facility] Last Infusion: 10/08/22 04:45 Dose: Infused Vancomycin HCl 1,000 mg/ (Sodium Chloride) 270 mls @ 270 mls/hr IV Q12H [facility] Last Admin: 10/08/22 05:24 Dose: 270 mls/hr Sodium Chloride (Ns) 1,000 mls @ 100 mls/hr IVCONT .Q10H [facility] Last Admin: 10/08/22 06:40 Dose: 100 mls/hr Morphine Sulfate (Morphine Sulfate 2 Mg/Ml Cartridge) 2 mg IM Q4H PRN; Protocol PRN Reason: Pain, Severe (Pain Scale 7-10) Last Admin: 10/08/22 05:26 Dose: 2 mg Ondansetron HCl (Ondansetron Hcl 4 Mg/2 Ml Vial) 4 mg IVPUSH Q8H PRN PRN Reason: Nausea and Vomiting Pharmacy Consult (Consult Rx Vancomycin Dosing) 1 each MISCELLANE DAILY PRN PRN Reason: Consult order Pharmacy Consult (Consult Rx Etoh Phenob Im/Po) 1 each MISCELLANE ONCE PRN; Protocol PRN Reason: Consult order Phenobarbital (Phenobarbital 15 Mg Tablet) 45 mg PO BID [facility]; Protocol Stop: 10/09/22 21:01 Phenobarbital (Phenobarbital 15 Mg Tablet) 15 mg PO BID [facility]; Protocol Stop: 10/11/22 21:01 Phenobarbital (Phenobarbital 15 Mg Tablet) 15 mg PO DAILY [facility]; Protocol Stop: 10/13/22 09:01 Sodium Chloride (0.9 % Sodium Chloride Flush 3 Ml Syringe) 3 ml IVFLUSH QSHIFT [facility] Last Admin: 10/08/22 04:16 Dose: Not Given Thiamine HCl (Thiamine Hcl 100 Mg Tablet) 100 mg PO DAILY [facility] Stop: 10/10/22 09:01 Home Medications Medication Instructions Recorded Confirmed Last Taken Type albuterol sulfate 90 mcg/actuation 1 puff inhalation Q4H PRN 08/29/22 10/07/22 10/07/22 History aerosol inhaler Shortness Of Breath Or Wheezing apixaban 5 mg tablet (Eliquis) 5 mg PO BID 08/29/22 10/07/22 10/07/22 History ipratropium 20 mcg-albuterol 100 1 puff inhalation QID PRN 08/29/22 10/08/22 1 Day Ago History mcg/actuation mist for inhalation Shortness Of Breath ~10/07/22 (Combivent Respimat) Physical Exam Vital Signs and Narrative: Vital Signs: Last Vital Signs Temp 97.7 F 10/08/22 06:01 Pulse 68 10/08/22 06:01 Resp 18 10/08/22 06:01 BP 130/72 10/08/22 06:01 Pulse Ox 97 10/08/22 06:01 O2 Del Method Room Air 10/08/22 06:01 BMI result Body Mass Index 19.2 Const: Other: Constitutional: Alert, in no distress, overweight. Mental Status: Oriented to person, place and time. Eyes: Pupils are equal, round and reactive to light. Ear, Nose and Throat: Oropharynx clear, mucous membranes moist. Respiratory: Clear to auscultation. No wheezing, rales or rhonchi. Cardiovascular: S1 S2 regular. No murmurs, rubs or gallops. Gastrointestinal: Abdomen soft, non-tender, non-distended. Normal bowel sounds.? Neurologic: Cranial nerves II-XII grossly intact. No focal neurological deficits. Moves all extremities spontaneously.? Skin: No rashes or lesions.? Musculoskeletal: No cyanosis or clubbing. Psychiatric: Normal mood and affect? Results Labs 10/07/22 15:40 10/07/22 15:40 Labs: Laboratory Results - last 24 hr 10/07/22 10/07/22 10/07/22 15:40 15:40 15:40 MCV 87.0 MCH 29.7 MCHC 34.1 RDW 15.7 Plt Count 293 D MPV 9.2 L Immature Gran % (Auto) 0.8 H Neut % (Auto) 81.9 H Lymph % (Auto) 7.8 L Martin % (Auto) 8.5 Eos % (Auto) 0.5 Baso % (Auto) 0.5 Lymph # (Auto) 0.6 L Martin # (Auto) 0.6 Eos # (Auto) 0.0 Baso # (Auto) 0.0 Abs Immat Gran (auto) 0.06 H Absolute Neuts (auto) 6.0 Absolute Nucleated RBC 0.000 Nucleated RBC % (auto) 0.0 ESR 77 H PT INR Anion Gap 18 Estim Creat Clear Calc 101.5 Estimated GFR > 60 Random Glucose 113 Lactic Acid Lactic Acid F/U @ 2Hr Lactic Acid F/U @ 4Hr Calcium 9.2 Magnesium 1.2 L* Total Bilirubin 1.8 H Direct Bilirubin 1.0 H AST 44 H ALT 51 H Alkaline Phosphatase 129 H Total Creatine Kinase 101 C-Reactive Protein 17.97 H Total Protein 7.5 Albumin 3.6 Urine Color Urine Appearance Urine pH Ur Specific [place] Urine Protein Urine Glucose (UA) Urine Ketones Urine Blood Urine Nitrite Ur Leukocyte Esterase Urine RBC Urine WBC Ur Squamous Epith Cells Urine Bacteria Hyaline Casts Urine Opiates Screen Urine Fentanyl Screen Ur Barbiturates Screen Ur Phencyclidine Scrn Ur Amphetamines Screen U Benzodiazepines Scrn Urine Cocaine Screen U Marijuana (THC) Screen Ethyl Alcohol < 10 10/07/22 10/07/22 10/07/22 15:40 15:40 17:36 MCV MCH MCHC RDW Plt Count MPV Immature Gran % (Auto) Neut % (Auto) Lymph % (Auto) Martin % (Auto) Eos % (Auto) Baso % (Auto) Lymph # (Auto) Martin # (Auto) Eos # (Auto) Baso # (Auto) Abs Immat Gran (auto) Absolute Neuts (auto) Absolute Nucleated RBC Nucleated RBC % (auto) ESR PT 21.5 H INR 1.8 H Anion Gap Estim Creat Clear Calc Estimated GFR Random Glucose Lactic Acid 2.5 H* Lactic Acid F/U @ 2Hr Lactic Acid F/U @ 4Hr Calcium Magnesium Total Bilirubin Direct Bilirubin AST ALT Alkaline Phosphatase Total Creatine Kinase C-Reactive Protein Total Protein Albumin Urine Color Yellow Urine Appearance Clear Urine pH 6.5 Ur Specific [place] <= 1.005 Urine Protein Negative Urine Glucose (UA) Negative Urine Ketones Negative Urine Blood Trace H Urine Nitrite Negative Ur Leukocyte Esterase Negative Urine RBC 3-5 H Urine WBC 0-5 Ur Squamous Epith Cells 0-2 Urine Bacteria None Seen Hyaline Casts 0-2 Urine Opiates Screen Urine Fentanyl Screen Ur Barbiturates Screen Ur Phencyclidine Scrn Ur Amphetamines Screen U Benzodiazepines Scrn Urine Cocaine Screen U Marijuana (THC) Screen Ethyl Alcohol 10/07/22 10/07/22 10/07/22 17:36 19:10 21:30 MCV MCH MCHC RDW Plt Count MPV Immature Gran % (Auto) Neut % (Auto) Lymph % (Auto) Martin % (Auto) Eos % (Auto) Baso % (Auto) Lymph # (Auto) Martin # (Auto) Eos # (Auto) Baso # (Auto) Abs Immat Gran (auto) Absolute Neuts (auto) Absolute Nucleated RBC Nucleated RBC % (auto) ESR PT INR Anion Gap Estim Creat Clear Calc Estimated GFR Random Glucose Lactic Acid Lactic Acid F/U @ 2Hr 2.5 H* Lactic Acid F/U @ 4Hr 1.6 Calcium Magnesium Total Bilirubin Direct Bilirubin AST ALT Alkaline Phosphatase Total Creatine Kinase C-Reactive Protein Total Protein Albumin Urine Color Urine Appearance Urine pH Ur Specific [place] Urine Protein Urine Glucose (UA) Urine Ketones Urine Blood Urine Nitrite Ur Leukocyte Esterase Urine RBC Urine WBC Ur Squamous Epith Cells Urine Bacteria Hyaline Casts Urine Opiates Screen Not Detected Urine Fentanyl Screen Not Detected Ur Barbiturates Screen Not Detected Ur Phencyclidine Scrn Not Detected Ur Amphetamines Screen Not Detected U Benzodiazepines Scrn Not Detected Urine Cocaine Screen Not Detected U Marijuana (THC) Screen Not Detected Ethyl Alcohol Imaging Radiologist's Impressions: Impressions Chest X-Ray 10/07/22 15:20 IMPRESSION: No acute cardiopulmonary process. Pelvis CT 10/07/22 17:22 IMPRESSION: Heterogeneous appearance of the medial aspect of the left gluteus fredy muscle with adjacent stranding. This is a change from 02/06/2022. No rim-enhancing collection is seen at this time. This may represent edema or early phlegmonous change. No drainable collection. Assessment and Plan (1) Alcohol dependence: Status: Acute (2) Gluteal abscess: Status: Acute (3) Cellulitis, gluteal: Status: Acute Plan 61-year-old male with pertinent history of alcohol use disorder, copd, tobacco use disorder, DVT on Eliquis here with several days of buttock and rectal pain, difficulty sitting. He has no fever WBC is normal, appear to have abscess and definately cellulitis--see pictures. CT of pelvis is pending. Additionally, he has not drank in at least 3 dasys and starting to show sings of alcohol withdrwal #Buttock abscess Cellulitis, need gram positive and gram negative coverage with Zosyn and Vanco # Alcohol use disorder/Alcohol withdrawal, Start Phenobarbital , folic Acid, thiamine and CARE team consult before discharge #? History of DVT, hold Eliquis as he might need surgery #? Tobacco use disorder:?offer nicotine patch #? COPD--no acute exacerbation--inhalers PRN DVT prophylaxis:? compression device, Full code regular diet [facility] for treatment gluteal abscess and cellulitis with IV Abx and surgical evaluation, and impending ofalchol withdrwal Time Spent With Patient Time: Total time managing care of this patient today ____ minutes. Quality Stroke Does the patient have a stroke diagnosis?: No VTE Prior VTE?: Yes VTE Risk Level:: Medical - moderate - high VTE Device Contraindication: N/A - Device Ordered VTE Drug Contraindication: Treatment Not Tolerated
[2022-10-08 08:28] LABS: Hematocrit 30.6 % (42.0-52.0); Mean Corpuscular HGB Conc 32.7 g/dl (31.0-36.0); Mean Corpuscular Hemoglobin 29.4 pg (27.0-33.0); Mean Platelet Volume 9.6 fL (9.4-12.4); Platelet Count 258 X10*3/uL (160-400); Red Cell Distribution Width 15.8 % (11.0-16.0); White Blood Count 6.8 X10*3/uL (4.8-10.8)
[2022-10-08 08:51] LABS: Anion Gap 12 (12-20); Blood Urea Nitrogen 4 mg/dL (9-16); Carbon Dioxide 27 mmol/L (22-29); Chloride 100 mmol/L (96-108); Estimated Glomerular Filt Rate > 60; Glucose Random 99 mg/dL (60-115); Potassium 3.6 mmol/L (3.3-5.1); Sodium 135 mmol/L (135-145)
--- NOTE | 2022-10-08 08:51 | MHC.CM.PN ---
CM met with Patient at bedside and addressed IMM with him (original was given to Patient and a copy has been placed on the chart).Home with new [facility] is the tentative plan; CM has initiated and will follow for dc planning. Patient lives alone in a house and he uses a cane to assist with mobility. Patient's PCP is Dr. Cristhian Delgado.
[2022-10-08 09:04] LABS: Calcium 7.9 mg/dL (8.4-10.2)
--- NOTE | 2022-10-08 09:30 | HO.PM.IMPN ---
Subjective Subjective Date of Service: 10/08/22 Interval History: f/u on gluteal abscess/cellulitis interval history: Buttock pain, no new issues Physical Exam Vital Signs: Vital Signs: Last Vital Signs Temp 98.6 F 10/08/22 07:18 Pulse 69 10/08/22 07:18 Resp 20 10/08/22 07:18 BP 110/58 L 10/08/22 07:18 Pulse Ox 97 10/08/22 07:18 O2 Del Method Room Air 10/08/22 07:18 BMI result Body Mass Index 19.2 Const: Other: Constitutional: Alert, in no distress, overweight. Mental Status: Oriented to person, place and time. Respiratory: Clear to auscultation. No wheezing, rales or rhonchi. Cardiovascular: S1 S2 regular. No murmurs, rubs or gallops. Gastrointestinal: Abdomen soft, non-tender, non-distended. Normal bowel sounds.? Neurologic: Cranial nerves II-XII grossly intact. No focal neurological deficits. Moves all extremities spontaneously.? Skin: No rashes or lesions.? Musculoskeletal: No cyanosis or clubbing. Psychiatric: Normal mood and affect? Objective Data Active Medications Acetaminophen (Acetaminophen 325 Mg Tablet) 650 mg PO Q6H PRN PRN Reason: Pain, Mild (Pain Scale 1-3) Albuterol Sulfate (Albuterol Sulfate 90 Mcg 8 Gm Inhaler) 1 puff INHALE Q4H PRN PRN Reason: Shortness Of Breath Or Wheezing Albuterol/Ipratropium (Albuterol/Iprat 2.5/0.5mg 3 Ml Ampul.Neb) 3 ml INHALE QID PRN PRN Reason: Shortness Of Breath Docusate Sodium (Docusate Sodium 100 Mg Capsule) 100 mg PO DAILY PRN PRN Reason: Constipation Folic Acid (Folic Acid 1 Mg Tablet) 1 mg PO DAILY [facility] Stop: 10/10/22 09:01 Piperacillin Sod/Tazobactam (Sod 3.375 gm/ Sodium Chloride) 50 mls @ 100 mls/hr IV Q6H [facility] Last Infusion: 10/08/22 04:45 Dose: 0 mls/hr Documented By: ELIOT Vancomycin HCl 1,000 mg/ (Sodium Chloride) 270 mls @ 270 mls/hr IV Q12H [facility] Last Infusion: 10/08/22 07:21 Dose: 0 mls/hr Documented By: TARAH Sodium Chloride (Ns) 1,000 mls @ 100 mls/hr IVCONT .Q10H [facility] Last Admin: 10/08/22 06:40 Dose: 100 mls/hr Documented By: JIM Morphine Sulfate (Morphine Sulfate 2 Mg/Ml Cartridge) 2 mg IM Q4H PRN; Protocol PRN Reason: Pain, Severe (Pain Scale 7-10) Last Admin: 10/08/22 05:26 Dose: 2 mg Documented By: ELIOT Ondansetron HCl (Ondansetron Hcl 4 Mg/2 Ml Vial) 4 mg IVPUSH Q8H PRN PRN Reason: Nausea and Vomiting Pharmacy Consult (Consult Rx Vancomycin Dosing) 1 each MISCELLANE DAILY PRN PRN Reason: Consult order Pharmacy Consult (Consult Rx Etoh Phenob Im/Po) 1 each MISCELLANE ONCE PRN; Protocol PRN Reason: Consult order Phenobarbital (Phenobarbital 15 Mg Tablet) 45 mg PO BID [facility]; Protocol Stop: 10/09/22 21:01 Phenobarbital (Phenobarbital 15 Mg Tablet) 15 mg PO BID [facility]; Protocol Stop: 10/11/22 21:01 Phenobarbital (Phenobarbital 15 Mg Tablet) 15 mg PO DAILY [facility]; Protocol Stop: 10/13/22 09:01 Sodium Chloride (0.9 % Sodium Chloride Flush 3 Ml Syringe) 3 ml IVFLUSH QSHIFT [facility] Last Admin: 10/08/22 09:15 Dose: Not Given Documented By: TARAH Non-Admin Reason: IV Running Thiamine HCl (Thiamine Hcl 100 Mg Tablet) 100 mg PO DAILY [facility] Stop: 10/10/22 09:01 Labs 10/08/22 07:53 10/08/22 07:53 Labs: Laboratory Results - last 24 hr 10/07/22 10/07/22 10/07/22 15:40 15:40 15:40 MCV 87.0 MCH 29.7 MCHC 34.1 RDW 15.7 Plt Count 293 D MPV 9.2 L Immature Gran % (Auto) 0.8 H Neut % (Auto) 81.9 H Lymph % (Auto) 7.8 L Shannon % (Auto) 8.5 Eos % (Auto) 0.5 Baso % (Auto) 0.5 Lymph # (Auto) 0.6 L Shannon # (Auto) 0.6 Eos # (Auto) 0.0 Baso # (Auto) 0.0 Abs Immat Gran (auto) 0.06 H Absolute Neuts (auto) 6.0 Absolute Nucleated RBC 0.000 Nucleated RBC % (auto) 0.0 ESR 77 H PT INR Anion Gap 18 Estim Creat Clear Calc 101.5 Estimated GFR > 60 Random Glucose 113 Lactic Acid Lactic Acid F/U @ 2Hr Lactic Acid F/U @ 4Hr Calcium 9.2 Magnesium 1.2 L* Total Bilirubin 1.8 H Direct Bilirubin 1.0 H AST 44 H ALT 51 H Alkaline Phosphatase 129 H Total Creatine Kinase 101 C-Reactive Protein 17.97 H Total Protein 7.5 Albumin 3.6 Urine Color Urine Appearance Urine pH Ur Specific [place] Urine Protein Urine Glucose (UA) Urine Ketones Urine Blood Urine Nitrite Ur Leukocyte Esterase Urine RBC Urine WBC Ur Squamous Epith Cells Urine Bacteria Hyaline Casts Urine Opiates Screen Urine Fentanyl Screen Ur Barbiturates Screen Ur Phencyclidine Scrn Ur Amphetamines Screen U Benzodiazepines Scrn Urine Cocaine Screen U Marijuana (THC) Screen Ethyl Alcohol < 10 10/07/22 10/07/22 10/07/22 15:40 15:40 17:36 MCV MCH MCHC RDW Plt Count MPV Immature Gran % (Auto) Neut % (Auto) Lymph % (Auto) Shannon % (Auto) Eos % (Auto) Baso % (Auto) Lymph # (Auto) Shannon # (Auto) Eos # (Auto) Baso # (Auto) Abs Immat Gran (auto) Absolute Neuts (auto) Absolute Nucleated RBC Nucleated RBC % (auto) ESR PT 21.5 H INR 1.8 H Anion Gap Estim Creat Clear Calc Estimated GFR Random Glucose Lactic Acid 2.5 H* Lactic Acid F/U @ 2Hr Lactic Acid F/U @ 4Hr Calcium Magnesium Total Bilirubin Direct Bilirubin AST ALT Alkaline Phosphatase Total Creatine Kinase C-Reactive Protein Total Protein Albumin Urine Color Yellow Urine Appearance Clear Urine pH 6.5 Ur Specific [place] <= 1.005 Urine Protein Negative Urine Glucose (UA) Negative Urine Ketones Negative Urine Blood Trace H Urine Nitrite Negative Ur Leukocyte Esterase Negative Urine RBC 3-5 H Urine WBC 0-5 Ur Squamous Epith Cells 0-2 Urine Bacteria None Seen Hyaline Casts 0-2 Urine Opiates Screen Urine Fentanyl Screen Ur Barbiturates Screen Ur Phencyclidine Scrn Ur Amphetamines Screen U Benzodiazepines Scrn Urine Cocaine Screen U Marijuana (THC) Screen Ethyl Alcohol 10/07/22 10/07/22 10/07/22 17:36 19:10 21:30 MCV MCH MCHC RDW Plt Count MPV Immature Gran % (Auto) Neut % (Auto) Lymph % (Auto) Shannon % (Auto) Eos % (Auto) Baso % (Auto) Lymph # (Auto) Shannon # (Auto) Eos # (Auto) Baso # (Auto) Abs Immat Gran (auto) Absolute Neuts (auto) Absolute Nucleated RBC Nucleated RBC % (auto) ESR PT INR Anion Gap Estim Creat Clear Calc Estimated GFR Random Glucose Lactic Acid Lactic Acid F/U @ 2Hr 2.5 H* Lactic Acid F/U @ 4Hr 1.6 Calcium Magnesium Total Bilirubin Direct Bilirubin AST ALT Alkaline Phosphatase Total Creatine Kinase C-Reactive Protein Total Protein Albumin Urine Color Urine Appearance Urine pH Ur Specific [place] Urine Protein Urine Glucose (UA) Urine Ketones Urine Blood Urine Nitrite Ur Leukocyte Esterase Urine RBC Urine WBC Ur Squamous Epith Cells Urine Bacteria Hyaline Casts Urine Opiates Screen Not Detected Urine Fentanyl Screen Not Detected Ur Barbiturates Screen Not Detected Ur Phencyclidine Scrn Not Detected Ur Amphetamines Screen Not Detected U Benzodiazepines Scrn Not Detected Urine Cocaine Screen Not Detected U Marijuana (THC) Screen Not Detected Ethyl Alcohol 10/08/22 10/08/22 07:53 07:53 MCV 90.0 MCH 29.4 MCHC 32.7 RDW 15.8 Plt Count 258 MPV 9.6 Immature Gran % (Auto) Neut % (Auto) Lymph % (Auto) Shannon % (Auto) Eos % (Auto) Baso % (Auto) Lymph # (Auto) Shannon # (Auto) Eos # (Auto) Baso # (Auto) Abs Immat Gran (auto) Absolute Neuts (auto) Absolute Nucleated RBC 0.000 Nucleated RBC % (auto) 0.0 ESR PT INR Anion Gap 12 Estim Creat Clear Calc 94.0 Estimated GFR > 60 Random Glucose 99 Lactic Acid Lactic Acid F/U @ 2Hr Lactic Acid F/U @ 4Hr Calcium 7.9 L D Magnesium Total Bilirubin Direct Bilirubin AST ALT Alkaline Phosphatase Total Creatine Kinase C-Reactive Protein Total Protein Albumin Urine Color Urine Appearance Urine pH Ur Specific [place] Urine Protein Urine Glucose (UA) Urine Ketones Urine Blood Urine Nitrite Ur Leukocyte Esterase Urine RBC Urine WBC Ur Squamous Epith Cells Urine Bacteria Hyaline Casts Urine Opiates Screen Urine Fentanyl Screen Ur Barbiturates Screen Ur Phencyclidine Scrn Ur Amphetamines Screen U Benzodiazepines Scrn Urine Cocaine Screen U Marijuana (THC) Screen Ethyl Alcohol Assessment and Plan (1) Cellulitis, gluteal: Status: Acute (2) Gluteal abscess: Status: Acute (3) Alcohol dependence: Status: Acute Plan 61-year-old male with pertinent history of alcohol use disorder, copd, tobacco use disorder, DVT on Eliquis here with? several days of buttock and rectal pain, difficulty sitting. He has no fever WBC is normal, appear to have abscess and definately cellulitis--see pictures. CT of pelvis is pending. Additionally, he has not drank in at least 3 dasys and starting to show sings of alcohol? withdrwal #Buttock abscess Cellulitis, need gram positive and gram negative coverage with Zosyn and Vanco # Alcohol use disorder/Alcohol withdrawal, Start Phenobarbital , folic Acid, thiamine and CARE team consult before discharge #? History of DVT, hold? Eliquis as he might need surgery #? Tobacco use disorder:?offer nicotine patch #? COPD--no acute exacerbation--inhalers PRN DVT prophylaxis:?? compression device, Full code regular diet need for inpatient: treatment gluteal abscess and cellulitis? with IV Abx and surgical evaluation, and impending? jordyn king Time Spent With Patient Time: Total time managing care of this patient today ____ minutes. Quality Stroke Does the patient have a stroke diagnosis?: No VTE Prior VTE?: Yes VTE Risk Level:: Medical - moderate - high VTE Device Contraindication: N/A - Device Ordered VTE Drug Contraindication: Treatment Not Tolerated
[2022-10-08] MEDS: PHENobarbitaL 15 MG TABLET 45 MG PO ×2 (09:40→19:44)
[2022-10-08] MEDS: Thiamine HCL 100 MG TABLET PO (09:40)
[2022-10-08] MEDS: Folic Acid 1 MG TABLET PO (09:40)
[2022-10-08] MEDS: Acetaminophen 325 MG TABLET 650 MG PO (11:06)
--- NOTE | 2022-10-08 13:39 | P.CONAN_ITS ---
[facility] Active Problems Active Problems: All Active Problems (Updated 10/08/22 @ 07:00 by Caden Hutchinson MD) Cellulitis, gluteal (Acute) Gluteal abscess (Acute) Necrosis (Acute) Alcohol dependence (Acute) UTI (urinary tract infection) (Acute) COVID-19 (Acute) COVID-19 (Acute) Alcohol abuse (Acute) Past Medical History Medical History Acute and chronic respiratory failure with hypoxia Alcohol abuse Alcohol use disorder, severe, dependence Asthma COPD (chronic obstructive pulmonary disease) COPD (chronic obstructive pulmonary disease) DVT (deep venous thrombosis) Neuropathy Presence of IVC filter Subdural hematoma Tobacco abuse Family History Family history of problems with anesthesia: No Surgical History History of Problems with Anesthesia: No Social History Social History Household Members: None Housing: House Do you presently have visiting nurse or other home services: No Alcohol intake: current Alcohol intake frequency: 3 or more drinks per day Alcohol type: hard liquor Patient Tobacco Use Status: Current everyday Tobacco user Tobacco use type: Cigarette Cigarette Packs Per Day: 1 Cigarettes Per Day: 20.0 Smoked in Last 30 Days: Yes e-Cigarette/Vaping Use: Never Used Patient Interested in Nicotine Replacement: No Patient Given Instructions on How to Stop Smoking: No Second Hand Smoke Exposure: No Use of substances other than those prescribed or required for medical reasons: No Substance Use Type: Marijuana Have you been hit, kicked, punched, or otherwise hurt by someone within the past year? If so, by whom?: No Do you feel safe in your current relationship?: No Current Relationship Is there a partner from a previous relationship who is making you feel unsafe now?: No Are you made to feel afraid or neglected: No Advance Directives: Yes Advance Directives on File: Yes Advance Directives Date on File: 03/05/22 Do you have thoughts of harming others: None Do you have a plan to hurt others: No Plan Recently lost weight without trying: Unsure Eating poorly because of decreased appetite: No Nutrition Risks: No Nutritional Risk service: No Current occupational status: disabled Meds Allergies Allergy/AdvReac Type Severity Reaction Status Date / Time Peanut Butter Allergy Facial Verified 09/22/22 11:41 Swelling raspberry Allergy Facial Verified 09/17/22 20:09 Swelling Active Medications: Current Medications Acetaminophen (Acetaminophen 325 Mg Tablet) 650 mg PO Q6H PRN PRN Reason: Pain, Mild (Pain Scale 1-3) Last Admin: 10/08/22 11:06 Dose: 650 mg Albuterol Sulfate (Albuterol Sulfate 90 Mcg 8 Gm Inhaler) 1 puff INHALE Q4H PRN PRN Reason: Shortness Of Breath Or Wheezing Albuterol/Ipratropium (Albuterol/Iprat 2.5/0.5mg 3 Ml Ampul.Neb) 3 ml INHALE QID PRN PRN Reason: Shortness Of Breath Docusate Sodium (Docusate Sodium 100 Mg Capsule) 100 mg PO DAILY PRN PRN Reason: Constipation Folic Acid (Folic Acid 1 Mg Tablet) 1 mg PO DAILY [facility] Stop: 10/10/22 09:01 Last Admin: 10/08/22 09:40 Dose: 1 mg Piperacillin Sod/Tazobactam (Sod 3.375 gm/ Sodium Chloride) 50 mls @ 100 mls/hr IV Q6H [facility] Last Infusion: 10/08/22 10:13 Dose: Infused Vancomycin HCl 1,000 mg/ (Sodium Chloride) 270 mls @ 270 mls/hr IV Q12H [facility] Last Infusion: 10/08/22 07:21 Dose: Infused Sodium Chloride (Ns) 1,000 mls @ 100 mls/hr IVCONT .Q10H [facility] Last Admin: 10/08/22 06:40 Dose: 100 mls/hr Morphine Sulfate (Morphine Sulfate 2 Mg/Ml Cartridge) 2 mg IM Q4H PRN; Protocol PRN Reason: Pain, Severe (Pain Scale 7-10) Last Admin: 10/08/22 05:26 Dose: 2 mg Ondansetron HCl (Ondansetron Hcl 4 Mg/2 Ml Vial) 4 mg IVPUSH Q8H PRN PRN Reason: Nausea and Vomiting Pharmacy Consult (Consult Rx Vancomycin Dosing) 1 each MISCELLANE DAILY PRN PRN Reason: Consult order Pharmacy Consult (Consult Rx Etoh Phenob Im/Po) 1 each MISCELLANE ONCE PRN; Protocol PRN Reason: Consult order Phenobarbital (Phenobarbital 15 Mg Tablet) 45 mg PO BID [facility]; Protocol Stop: 10/09/22 21:01 Last Admin: 10/08/22 09:40 Dose: 45 mg Phenobarbital (Phenobarbital 15 Mg Tablet) 15 mg PO BID [facility]; Protocol Stop: 10/11/22 21:01 Phenobarbital (Phenobarbital 15 Mg Tablet) 15 mg PO DAILY [facility]; Protocol Stop: 10/13/22 09:01 Sodium Chloride (0.9 % Sodium Chloride Flush 3 Ml Syringe) 3 ml IVFLUSH QSHIFT [facility] Last Admin: 10/08/22 09:15 Dose: Not Given Thiamine HCl (Thiamine Hcl 100 Mg Tablet) 100 mg PO DAILY [facility] Stop: 10/10/22 09:01 Last Admin: 10/08/22 09:40 Dose: 100 mg Home Medications Medication Instructions Recorded Confirmed Last Taken Type albuterol sulfate 90 mcg/actuation 1 puff inhalation Q4H PRN 08/29/22 10/07/22 10/07/22 History aerosol inhaler Shortness Of Breath Or Wheezing apixaban 5 mg tablet (Eliquis) 5 mg PO BID 08/29/22 10/07/22 10/07/22 History ipratropium 20 mcg-albuterol 100 1 puff inhalation QID PRN 08/29/22 10/08/22 1 Day Ago History mcg/actuation mist for inhalation Shortness Of Breath ~10/07/22 (Combivent Respimat) Exam Exam Date and Time: October 08, [id number] Height,Weight and Vital Signs: Height 5 ft 8 in Weight 59.1 kg Last Vital Signs Temp 98.6 F 10/08/22 11:02 Pulse 75 10/08/22 11:02 Resp 18 10/08/22 11:02 BP 101/56 L 10/08/22 11:02 Pulse Ox 94 10/08/22 11:02 O2 Del Method Room Air 10/08/22 11:02 Pertinent Lab Results Pertinent Lab Results: Laboratory Tests 10/07/22 10/07/22 10/07/22 15:40 15:40 15:40 WBC 7.3 RBC 4.08 L Hgb 12.1 L Hct 35.5 L MCV 87.0 MCH 29.7 MCHC 34.1 RDW 15.7 Plt Count 293 D MPV 9.2 L Immature Gran % (Auto) 0.8 H Neut % (Auto) 81.9 H Lymph % (Auto) 7.8 L [place] % (Auto) 8.5 Eos % (Auto) 0.5 Baso % (Auto) 0.5 Lymph # (Auto) 0.6 L [place] # (Auto) 0.6 Eos # (Auto) 0.0 Baso # (Auto) 0.0 Abs Immat Gran (auto) 0.06 H Absolute Neuts (auto) 6.0 Absolute Nucleated RBC 0.000 Nucleated RBC % (auto) 0.0 ESR 77 H PT INR Sodium 133 L Potassium 3.1 L Chloride 89 L Carbon Dioxide 29 Anion Gap 18 BUN 7 L Creatinine 0.73 Estim Creat Clear Calc 101.5 Estimated GFR > 60 Random Glucose 113 Lactic Acid Lactic Acid F/U @ 2Hr Lactic Acid F/U @ 4Hr Calcium 9.2 Magnesium 1.2 L* Total Bilirubin 1.8 H Direct Bilirubin 1.0 H AST 44 H ALT 51 H Alkaline Phosphatase 129 H Total Creatine Kinase 101 C-Reactive Protein 17.97 H Total Protein 7.5 Albumin 3.6 Urine Color Urine Appearance Urine pH Ur Specific [place] Urine Protein Urine Glucose (UA) Urine Ketones Urine Blood Urine Nitrite Ur Leukocyte Esterase Urine RBC Urine WBC Ur Squamous Epith Cells Urine Bacteria Hyaline Casts Urine Opiates Screen Urine Fentanyl Screen Ur Barbiturates Screen Ur Phencyclidine Scrn Ur Amphetamines Screen U Benzodiazepines Scrn Urine Cocaine Screen U Marijuana (THC) Screen Ethyl Alcohol < 10 10/07/22 10/07/22 10/07/22 15:40 15:40 17:36 WBC RBC Hgb Hct MCV MCH MCHC RDW Plt Count MPV Immature Gran % (Auto) Neut % (Auto) Lymph % (Auto) [place] % (Auto) Eos % (Auto) Baso % (Auto) Lymph # (Auto) [place] # (Auto) Eos # (Auto) Baso # (Auto) Abs Immat Gran (auto) Absolute Neuts (auto) Absolute Nucleated RBC Nucleated RBC % (auto) ESR PT 21.5 H INR 1.8 H Sodium Potassium Chloride Carbon Dioxide Anion Gap BUN Creatinine Estim Creat Clear Calc Estimated GFR Random Glucose Lactic Acid 2.5 H* Lactic Acid F/U @ 2Hr Lactic Acid F/U @ 4Hr Calcium Magnesium Total Bilirubin Direct Bilirubin AST ALT Alkaline Phosphatase Total Creatine Kinase C-Reactive Protein Total Protein Albumin Urine Color Yellow Urine Appearance Clear Urine pH 6.5 Ur Specific [place] <= 1.005 Urine Protein Negative Urine Glucose (UA) Negative Urine Ketones Negative Urine Blood Trace H Urine Nitrite Negative Ur Leukocyte Esterase Negative Urine RBC 3-5 H Urine WBC 0-5 Ur Squamous Epith Cells 0-2 Urine Bacteria None Seen Hyaline Casts 0-2 Urine Opiates Screen Urine Fentanyl Screen Ur Barbiturates Screen Ur Phencyclidine Scrn Ur Amphetamines Screen U Benzodiazepines Scrn Urine Cocaine Screen U Marijuana (THC) Screen Ethyl Alcohol 10/07/22 10/07/22 10/07/22 17:36 19:10 21:30 WBC RBC Hgb Hct MCV MCH MCHC RDW Plt Count MPV Immature Gran % (Auto) Neut % (Auto) Lymph % (Auto) [place] % (Auto) Eos % (Auto) Baso % (Auto) Lymph # (Auto) [place] # (Auto) Eos # (Auto) Baso # (Auto) Abs Immat Gran (auto) Absolute Neuts (auto) Absolute Nucleated RBC Nucleated RBC % (auto) ESR PT INR Sodium Potassium Chloride Carbon Dioxide Anion Gap BUN Creatinine Estim Creat Clear Calc Estimated GFR Random Glucose Lactic Acid Lactic Acid F/U @ 2Hr 2.5 H* Lactic Acid F/U @ 4Hr 1.6 Calcium Magnesium Total Bilirubin Direct Bilirubin AST ALT Alkaline Phosphatase Total Creatine Kinase C-Reactive Protein Total Protein Albumin Urine Color Urine Appearance Urine pH Ur Specific [place] Urine Protein Urine Glucose (UA) Urine Ketones Urine Blood Urine Nitrite Ur Leukocyte Esterase Urine RBC Urine WBC Ur Squamous Epith Cells Urine Bacteria Hyaline Casts Urine Opiates Screen Not Detected Urine Fentanyl Screen Not Detected Ur Barbiturates Screen Not Detected Ur Phencyclidine Scrn Not Detected Ur Amphetamines Screen Not Detected U Benzodiazepines Scrn Not Detected Urine Cocaine Screen Not Detected U Marijuana (THC) Screen Not Detected Ethyl Alcohol 10/08/22 10/08/22 07:53 07:53 WBC 6.8 RBC 3.40 L Hgb 10.0 L Hct 30.6 L MCV 90.0 MCH 29.4 MCHC 32.7 RDW 15.8 Plt Count 258 MPV 9.6 Immature Gran % (Auto) Neut % (Auto) Lymph % (Auto) [place] % (Auto) Eos % (Auto) Baso % (Auto) Lymph # (Auto) [place] # (Auto) Eos # (Auto) Baso # (Auto) Abs Immat Gran (auto) Absolute Neuts (auto) Absolute Nucleated RBC 0.000 Nucleated RBC % (auto) 0.0 ESR PT INR Sodium 135 Potassium 3.6 Chloride 100 Carbon Dioxide 27 Anion Gap 12 BUN 4 L Creatinine 0.66 Estim Creat Clear Calc 94.0 Estimated GFR > 60 Random Glucose 99 Lactic Acid Lactic Acid F/U @ 2Hr Lactic Acid F/U @ 4Hr Calcium 7.9 L D Magnesium Total Bilirubin Direct Bilirubin AST ALT Alkaline Phosphatase Total Creatine Kinase C-Reactive Protein Total Protein Albumin Urine Color Urine Appearance Urine pH Ur Specific [place] Urine Protein Urine Glucose (UA) Urine Ketones Urine Blood Urine Nitrite Ur Leukocyte Esterase Urine RBC Urine WBC Ur Squamous Epith Cells Urine Bacteria Hyaline Casts Urine Opiates Screen Urine Fentanyl Screen Ur Barbiturates Screen Ur Phencyclidine Scrn Ur Amphetamines Screen U Benzodiazepines Scrn Urine Cocaine Screen U Marijuana (THC) Screen Ethyl Alcohol Airway Mallampati Class: II TM Dist: >3cm Neck ROM: Full Loose/Missing/Broken Teeth: Yes, Upper and Lower Assessment and Plan Assessment Anesthesia Assessment: Anesthesia Plan Discussed, Smoking Cess. Discussed and Chart Reviewed Final Anesthetic Review Family History of Problems with Anesthesia: No History of Problems with Anesthesia: No NPO: Yes ASA Class: II Final Preanesthetic Review: No Changes in Pt Med Stat, Meds/Allgs Chart Reviewed, Consent Obtained/Reviewed and Anes Risks/Benef Reviewed Patient Risk: Intermediate Procedure Risk: Low Anesthetic Plan Anesthetic Plan: GA Disposition: Standard PACU
--- NOTE | 2022-10-08 13:57 | PM.CNGS ---
History of Present Illness Consult details Consult date: 10/08/22 Narrative: Patient is a 62-year-old male with a plethora of medical problems including alcohol dependence, who presents here with among other things a large sacral/gluteal abscess. Chart was reviewed patient evaluated. [facility] Past Medical History Medical History Acute and chronic respiratory failure with hypoxia Alcohol abuse Alcohol use disorder, severe, dependence Asthma COPD (chronic obstructive pulmonary disease) COPD (chronic obstructive pulmonary disease) DVT (deep venous thrombosis) Neuropathy Presence of IVC filter Subdural hematoma Tobacco abuse Social History Social History Household Members: None Housing: House Do you presently have visiting nurse or other home services: No Alcohol intake: current Alcohol intake frequency: 3 or more drinks per day Alcohol type: hard liquor Patient Tobacco Use Status: Current everyday Tobacco user Tobacco use type: Cigarette Cigarette Packs Per Day: 1 Cigarettes Per Day: 20.0 Smoked in Last 30 Days: Yes e-Cigarette/Vaping Use: Never Used Patient Interested in Nicotine Replacement: No Patient Given Instructions on How to Stop Smoking: No Second Hand Smoke Exposure: No Use of substances other than those prescribed or required for medical reasons: No Substance Use Type: Marijuana Have you been hit, kicked, punched, or otherwise hurt by someone within the past year? If so, by whom?: No Do you feel safe in your current relationship?: No Current Relationship Is there a partner from a previous relationship who is making you feel unsafe now?: No Are you made to feel afraid or neglected: No Advance Directives: Yes Advance Directives on File: Yes Advance Directives Date on File: 03/05/22 Do you have thoughts of harming others: None Do you have a plan to hurt others: No Plan Recently lost weight without trying: Unsure Eating poorly because of decreased appetite: No Nutrition Risks: No Nutritional Risk service: No Current occupational status: disabled Meds Allergies Allergy/AdvReac Type Severity Reaction Status Date / Time Peanut Butter Allergy Facial Verified 09/22/22 11:41 Swelling raspberry Allergy Facial Verified 09/17/22 20:09 Swelling Active Medications: Current Medications Acetaminophen (Acetaminophen 325 Mg Tablet) 650 mg PO Q6H PRN PRN Reason: Pain, Mild (Pain Scale 1-3) Last Admin: 10/08/22 11:06 Dose: 650 mg Albuterol Sulfate (Albuterol Sulfate 90 Mcg 8 Gm Inhaler) 1 puff INHALE Q4H PRN PRN Reason: Shortness Of Breath Or Wheezing Albuterol/Ipratropium (Albuterol/Iprat 2.5/0.5mg 3 Ml Ampul.Neb) 3 ml INHALE QID PRN PRN Reason: Shortness Of Breath Docusate Sodium (Docusate Sodium 100 Mg Capsule) 100 mg PO DAILY PRN PRN Reason: Constipation Fentanyl (Fentanyl Citrate/Pf 100 Mcg/2 Ml Vial) 50 mcg IVPUSH Q5M PRN; Protocol PRN Reason: Pain, Severe (Pain Scale 7-10) Folic Acid (Folic Acid 1 Mg Tablet) 1 mg PO DAILY [facility] Stop: 10/10/22 09:01 Last Admin: 10/08/22 09:40 Dose: 1 mg Piperacillin Sod/Tazobactam (Sod 3.375 gm/ Sodium Chloride) 50 mls @ 100 mls/hr IV Q6H [facility] Last Infusion: 10/08/22 10:13 Dose: Infused Vancomycin HCl 1,000 mg/ (Sodium Chloride) 270 mls @ 270 mls/hr IV Q12H [facility] Last Infusion: 10/08/22 07:21 Dose: Infused Sodium Chloride (Ns) 1,000 mls @ 100 mls/hr IVCONT .Q10H [facility] Last Admin: 10/08/22 06:40 Dose: 100 mls/hr Morphine Sulfate (Morphine Sulfate 2 Mg/Ml Cartridge) 2 mg IM Q4H PRN; Protocol PRN Reason: Pain, Severe (Pain Scale 7-10) Last Admin: 10/08/22 05:26 Dose: 2 mg Ondansetron HCl (Ondansetron Hcl 4 Mg/2 Ml Vial) 4 mg IVPUSH Q8H PRN PRN Reason: Nausea and Vomiting Ondansetron HCl (Ondansetron Hcl 4 Mg/2 Ml Vial) 4 mg IVPUSH ONCE PRN PRN Reason: Nausea and Vomiting Pharmacy Consult (Consult Rx Vancomycin Dosing) 1 each MISCELLANE DAILY PRN PRN Reason: Consult order Pharmacy Consult (Consult Rx Etoh Phenob Im/Po) 1 each MISCELLANE ONCE PRN; Protocol PRN Reason: Consult order Phenobarbital (Phenobarbital 15 Mg Tablet) 45 mg PO BID [facility]; Protocol Stop: 10/09/22 21:01 Last Admin: 10/08/22 09:40 Dose: 45 mg Phenobarbital (Phenobarbital 15 Mg Tablet) 15 mg PO BID [facility]; Protocol Stop: 10/11/22 21:01 Phenobarbital (Phenobarbital 15 Mg Tablet) 15 mg PO DAILY [facility]; Protocol Stop: 10/13/22 09:01 Sodium Chloride (0.9 % Sodium Chloride Flush 3 Ml Syringe) 3 ml IVFLUSH QSHIFT [facility] Last Admin: 10/08/22 09:15 Dose: Not Given Thiamine HCl (Thiamine Hcl 100 Mg Tablet) 100 mg PO DAILY [facility] Stop: 10/10/22 09:01 Last Admin: 10/08/22 09:40 Dose: 100 mg Home Medications Medication Instructions Recorded Confirmed Last Taken Type albuterol sulfate 90 mcg/actuation 1 puff inhalation Q4H PRN 08/29/22 10/07/22 10/07/22 History aerosol inhaler Shortness Of Breath Or Wheezing apixaban 5 mg tablet (Eliquis) 5 mg PO BID 08/29/22 10/07/22 10/07/22 History ipratropium 20 mcg-albuterol 100 1 puff inhalation QID PRN 08/29/22 10/08/22 1 Day Ago History mcg/actuation mist for inhalation Shortness Of Breath ~10/07/22 (Combivent Respimat) Physical Exam Vital Signs: Vital Signs: Last Vital Signs Temp 98.6 F 10/08/22 11:02 Pulse 75 10/08/22 11:02 Resp 18 10/08/22 11:02 BP 101/56 L 10/08/22 11:02 Pulse Ox 94 10/08/22 11:02 O2 Del Method Room Air 10/08/22 11:02 BMI result Body Mass Index 19.8 Back/Spine/Pelvis: Other: Patient has a very significant left buttock abscess measuring approximately 8 x 8 cm with significant central necrotic eschar and surrounding erythema and fluctuance. Results Labs 10/08/22 07:53 10/08/22 07:53 Labs: Abnormal lab results 10/07/22 10/07/22 10/07/22 Range/Units 15:40 15:40 15:40 RBC 4.08 L (4.60-5.80) X10*6/uL Hgb 12.1 L (14.0-18.0) g/dl Hct 35.5 L (42.0-52.0) % MPV 9.2 L (9.4-12.4) fL Immature Gran % (Auto) 0.8 H (0.0-0.4) % Neut % (Auto) 81.9 H (45-73) % Lymph % (Auto) 7.8 L (20-40) % Lymph # (Auto) 0.6 L (1.2-4.9) X10*3/uL Abs Immat Gran (auto) 0.06 H (0.00-0.03) X10*3/uL ESR 77 H (0-15) MM/HR PT (11.1-13.3) SEC INR (0.9-1.1) Sodium 133 L (135-145) mmol/L Potassium 3.1 L (3.3-5.1) mmol/L Chloride 89 L (96-108) mmol/L BUN 7 L (9-16) mg/dL Lactic Acid (0.5-2.0) mmol/L Lactic Acid F/U @ 2Hr (0.5-2.0) mmol/L Calcium (8.4-10.2) mg/dL Magnesium 1.2 L* (1.6-2.6) mg/dL Total Bilirubin 1.8 H (0.0-1.0) mg/dL Direct Bilirubin 1.0 H (0.0-0.5) mg/dL AST 44 H (5-37) U/L ALT 51 H (0-40) U/L Alkaline Phosphatase 129 H (39-117) U/L C-Reactive Protein 17.97 H (< or = 0.50) mg/dL Urine Blood (Negative) Urine RBC (0-2) /HPF 10/07/22 10/07/22 10/07/22 Range/Units 15:40 15:40 17:36 RBC (4.60-5.80) X10*6/uL Hgb (14.0-18.0) g/dl Hct (42.0-52.0) % MPV (9.4-12.4) fL Immature Gran % (Auto) (0.0-0.4) % Neut % (Auto) (45-73) % Lymph % (Auto) (20-40) % Lymph # (Auto) (1.2-4.9) X10*3/uL Abs Immat Gran (auto) (0.00-0.03) X10*3/uL ESR (0-15) MM/HR PT 21.5 H (11.1-13.3) SEC INR 1.8 H (0.9-1.1) Sodium (135-145) mmol/L Potassium (3.3-5.1) mmol/L Chloride (96-108) mmol/L BUN (9-16) mg/dL Lactic Acid 2.5 H* (0.5-2.0) mmol/L Lactic Acid F/U @ 2Hr (0.5-2.0) mmol/L Calcium (8.4-10.2) mg/dL Magnesium (1.6-2.6) mg/dL Total Bilirubin (0.0-1.0) mg/dL Direct Bilirubin (0.0-0.5) mg/dL AST (5-37) U/L ALT (0-40) U/L Alkaline Phosphatase (39-117) U/L C-Reactive Protein (< or = 0.50) mg/dL Urine Blood Trace H (Negative) Urine RBC 3-5 H (0-2) /HPF 10/07/22 10/08/22 10/08/22 Range/Units 19:10 07:53 07:53 RBC 3.40 L (4.60-5.80) X10*6/uL Hgb 10.0 L (14.0-18.0) g/dl Hct 30.6 L (42.0-52.0) % MPV (9.4-12.4) fL Immature Gran % (Auto) (0.0-0.4) % Neut % (Auto) (45-73) % Lymph % (Auto) (20-40) % Lymph # (Auto) (1.2-4.9) X10*3/uL Abs Immat Gran (auto) (0.00-0.03) X10*3/uL ESR (0-15) MM/HR PT (11.1-13.3) SEC INR (0.9-1.1) Sodium (135-145) mmol/L Potassium (3.3-5.1) mmol/L Chloride (96-108) mmol/L BUN 4 L (9-16) mg/dL Lactic Acid (0.5-2.0) mmol/L Lactic Acid F/U @ 2Hr 2.5 H* (0.5-2.0) mmol/L Calcium 7.9 L D (8.4-10.2) mg/dL Magnesium (1.6-2.6) mg/dL Total Bilirubin (0.0-1.0) mg/dL Direct Bilirubin (0.0-0.5) mg/dL AST (5-37) U/L ALT (0-40) U/L Alkaline Phosphatase (39-117) U/L C-Reactive Protein (< or = 0.50) mg/dL Urine Blood (Negative) Urine RBC (0-2) /HPF Short CBC 10/07/22 10/08/22 Range/Units 15:40 07:53 WBC 7.3 6.8 (4.8-10.8) X10*3/uL Hgb 12.1 L 10.0 L (14.0-18.0) g/dl Hct 35.5 L 30.6 L (42.0-52.0) % Plt Count 293 D 258 (160-400) X10*3/uL BMP 10/07/22 10/08/22 15:40 07:53 Sodium 133 L 135 Potassium 3.1 L 3.6 Chloride 89 L 100 Carbon Dioxide 29 27 BUN 7 L 4 L Creatinine 0.73 0.66 Calcium 9.2 7.9 L D Cardiac Enzymes 10/07/22 Range/Units 15:40 Total Creatine Kinase 101 (38-174) U/L Liver Function 10/07/22 Range/Units 15:40 Total Bilirubin 1.8 H (0.0-1.0) mg/dL Direct Bilirubin 1.0 H (0.0-0.5) mg/dL AST 44 H (5-37) U/L ALT 51 H (0-40) U/L Alkaline Phosphatase 129 H (39-117) U/L Albumin 3.6 (3.5-5.0) g/dL Urine 10/07/22 Range/Units 17:36 Urine Color Yellow Urine Appearance Clear Urine pH 6.5 (5.0-9.0) Ur Specific [place] <= 1.005 (1.005-1.025) Urine Protein Negative (Neg-Trace) mg/dL Urine Glucose (UA) Negative (Negative) mg/dL All other labs normal. Assessment and Plan (1) Cellulitis, gluteal: Status: Acute (2) Gluteal abscess: Status: Acute (3) Necrosis: Status: Acute Plan Because of the size and depth of this infectious process, I think the patient would be best served by having this wound debrided in the operating room. Risks, benefits, alternatives of gluteal/sacral wound debridement were reviewed with the patient and included not but not limited to bleeding, infection, recurrence, numbness, pain, scarring and the patient wishes to proceed. All questions were answered. Patient will have this done as an add on for later today. Time Spent With Patient Time: Total time managing care of this patient today ____ minutes. Procedures Date of Service Date of Service: 10/08/22
--- NOTE | 2022-10-08 14:48 | P.OP_ITS ---
Operative Note Operative Note Date of Service: 10/08/22 Narrative: Preoperative diagnosis: [] Left gluteal decubitus wound Postop diagnosis: [] Left gluteal abscess Procedure [] debridement and drainage of left gluteal wound/abscess Surgeon: [] [employer] Host: [] Type of Anesthesia: [] MAC Indication for surgery: [] Intraoperative findings demonstrated an external decubitus ulcer measuring approximately 4 x 4 cm. Debridement demonstrated another 4 cm of medial undermining were large abscess cavity was uneventfully debrided and drained. Cultures were obtained. Findings: [] Patient brought to the operating room, placed on table supine position, after adequate level of MAC anesthesia was induced, patient was placed in the right lateral decubitus position. Left buttock area was prepped and draped in usual sterile fashion, and the wound infiltrated with 0.5% Marcaine/1% lidocaine.. Debridement of the external eschar and necrotic tissue was performed excising skin and soft tissue and subcutaneous tissue. Exploration of the wound demonstrated a medial pocket of abscess which was digitally drained and cultures obtained. This area was also retracted and exposed and debrided as well. A completion the procedure, all loculations were broken down. Wound was irrigated, secured hemostasis. Wound was packed with Kerlix moistened packing followed by ABD dressing. Sponge, needle, and instrument counts reported correct. Patient tolerated the procedure well emerged from anesthesia stable condition. EBL minimal
[2022-10-08] MEDS: 0.9 % Sodium Chloride Flush 3 ML SYRINGE IVFLUSH ×2 (16:35→19:44)
--- NOTE | 2022-10-08 17:28 | HE.PHANOTE ---
RE: lety Patient refused to get trough drawn 10/08; spoke to nurse Joyce. Due to stable renal function decided to let her give the dose and put in another level attempt for tomorrow 10/09 @1600
[2022-10-08] MEDS: oxyCODONE HCl Immed Release 5 MG TABLET PO (19:43)
[2022-10-08] MEDS: Albuterol Sulfate 90 MCG 8 GM INHALER 1 PUFF INHALE (21:53)
[2022-10-09] MEDS: Piperacillin Sodium/Tazobactam 3.375 GM in 0.9 % Sodium Chloride 50 ML IV ×4 (02:26→20:03)
[2022-10-09] MEDS: 0.9 % Sodium Chloride 1,000 ML 100 ML IVCONT ×3 (02:27→18:27)
[2022-10-09] MEDS: oxyCODONE HCl Immed Release 5 MG TABLET PO ×3 (02:32→18:04)
[2022-10-09] MEDS: vancomycin HCL 1,000 MG in 0.9 % Sodium Chloride 250 ML 270 MG IV ×2 (05:46→18:03)
[2022-10-09] MEDS: Albuterol Sulfate 90 MCG 8 GM INHALER 1 PUFF INHALE (05:46)
[2022-10-09] MEDS: Morphine Sulfate 4 MG/ML CARTRIDGE 3 MG IVPUSH ×3 (05:52→21:17)
[2022-10-09 06:38] LABS: Creatinine Clr Calc Pharmacy 84.2; Estimated Glomerular Filt Rate > 60
[2022-10-09 07:28] VITALS: BP 129/60; PULSE 84; RESP 20; TEMP 36.5; O2SAT 96
[2022-10-09] MEDS: PHENobarbitaL 15 MG TABLET 45 MG PO ×2 (08:04→20:04)
[2022-10-09] MEDS: Thiamine HCL 100 MG TABLET PO (08:05)
[2022-10-09] MEDS: Folic Acid 1 MG TABLET PO (08:05)
--- NOTE | 2022-10-09 08:53 | HO.PM.IMPN ---
Subjective Subjective Date of Service: 10/09/22 Interval History: f/u on gluteal abscess/cellulitis interval history: Buttock pain, s/p I and D, debridment in [place] yesterday Physical Exam Vital Signs: Vital Signs: Last Vital Signs Temp 97.7 F 10/09/22 07:28 Pulse 84 10/09/22 07:28 Resp 20 10/09/22 07:28 BP 129/60 10/09/22 07:28 Pulse Ox 96 10/09/22 07:28 O2 Del Method Room Air 10/09/22 07:28 BMI result Body Mass Index 19.8 Const: Other: General: AO X 3, no acute distress Resp: CTA bilateral CVS: S1,S2,RRR GI: +BS, NT, no distention Skin: No rash--see pic after i and d, debridmen Neuro: motor grossly intact Psych: appropriate affect Objective Data Active Medications Acetaminophen (Acetaminophen 325 Mg Tablet) 650 mg PO Q6H PRN PRN Reason: Pain, Mild (Pain Scale 1-3) Last Admin: 10/08/22 11:06 Dose: 650 mg Documented By: TARAH Albuterol Sulfate (Albuterol Sulfate 90 Mcg 8 Gm Inhaler) 1 puff INHALE Q4H PRN PRN Reason: Shortness Of Breath Or Wheezing Last Admin: 10/09/22 05:46 Dose: 1 puff Documented By: JIM Albuterol/Ipratropium (Albuterol/Iprat 2.5/0.5mg 3 Ml Ampul.Neb) 3 ml INHALE QID PRN PRN Reason: Shortness Of Breath Docusate Sodium (Docusate Sodium 100 Mg Capsule) 100 mg PO DAILY PRN PRN Reason: Constipation Folic Acid (Folic Acid 1 Mg Tablet) 1 mg PO DAILY [facility] Stop: 10/10/22 09:01 Last Admin: 10/09/22 08:05 Dose: 1 mg Documented By: TARAH Piperacillin Sod/Tazobactam (Sod 3.375 gm/ Sodium Chloride) 50 mls @ 100 mls/hr IV Q6H [facility] Last Infusion: 10/09/22 08:39 Dose: 0 mls/hr Documented By: TARAH Sodium Chloride (Ns) 1,000 mls @ 100 mls/hr IVCONT .Q10H [facility] Last Infusion: 10/09/22 08:07 Dose: 100 mls/hr Documented By: TARAH Vancomycin HCl 1,000 mg/ (Sodium Chloride) 270 mls @ 270 mls/hr IV Q12H [facility] Last Infusion: 10/09/22 08:19 Dose: 0 mls/hr Documented By: TARAH Morphine Sulfate (Morphine Sulfate 4 Mg/Ml Cartridge) 3 mg IVPUSH Q4H PRN; Protocol PRN Reason: Pain, Severe (Pain Scale 7-10) Last Admin: 10/09/22 05:52 Dose: 3 mg Documented By: JIM Ondansetron HCl (Ondansetron Hcl 4 Mg/2 Ml Vial) 4 mg IVPUSH Q8H PRN PRN Reason: Nausea and Vomiting Oxycodone HCl (Oxycodone Hcl Immed Release 5 Mg Tablet) 5 mg PO Q4H PRN PRN Reason: Pain, Moderate(Pain Scale 4-6) Last Admin: 10/09/22 08:04 Dose: 5 mg Documented By: TARAH Pharmacy Consult (Consult Rx Vancomycin Dosing) 1 each MISCELLANE DAILY PRN PRN Reason: Consult order Pharmacy Consult (Consult Rx Etoh Phenob Im/Po) 1 each MISCELLANE ONCE PRN; Protocol PRN Reason: Consult order Phenobarbital (Phenobarbital 15 Mg Tablet) 45 mg PO BID [facility]; Protocol Stop: 10/09/22 21:01 Last Admin: 10/09/22 08:04 Dose: 45 mg Documented By: TARAH Phenobarbital (Phenobarbital 15 Mg Tablet) 15 mg PO BID [facility]; Protocol Stop: 10/11/22 21:01 Phenobarbital (Phenobarbital 15 Mg Tablet) 15 mg PO DAILY [facility]; Protocol Stop: 10/13/22 09:01 Sodium Chloride (0.9 % Sodium Chloride Flush 3 Ml Syringe) 3 ml IVFLUSH QSHIFT [facility] Last Admin: 10/09/22 08:39 Dose: Not Given Documented By: TARAH Non-Admin Reason: IV Running Thiamine HCl (Thiamine Hcl 100 Mg Tablet) 100 mg PO DAILY [facility] Stop: 10/10/22 09:01 Last Admin: 10/09/22 08:05 Dose: 100 mg Documented By: TARAH Labs 10/08/22 07:53 10/09/22 06:13 Labs: Laboratory Results - last 24 hr 10/08/22 10/09/22 07:53 06:13 Estim Creat Clear Calc 84.2 Estimated GFR > 60 Calcium 7.9 L D Microbiology Microbiology Results: Microbiology 10/07/22 15:40 Blood Culture - Preliminary Blood - Venous Prelim: GNR Gram Stain only 10/07/22 15:40 Blood Culture - Preliminary Blood - Venous Prelim: GNR Gram Stain only Assessment and Plan (1) Cellulitis, gluteal: Status: Acute (2) Gluteal abscess: Status: Acute (3) Alcohol dependence: Status: Acute Plan 61-year-old male with pertinent history of alcohol use disorder, copd, tobacco use disorder, DVT on Eliquis here with? several days of buttock and rectal pain, difficulty sitting. He has no fever WBC is normal, appear to have abscess and definately cellulitis--see pictures. CT of pelvis is pending. Additionally, he has not drank in at least 3 dasys and starting to show sings of alcohol? withdrwal #Buttock abscess Cellulitis, continue gram positive and gram negative coverage with Zosyn and Vanco started 10/07, s/p I and D 10/08, continue dressing changes as directed by Surgeon # Alcohol use disorder/Alcohol withdrawal, Start Phenobarbital , folic Acid, thiamine and CARE team consult before discharge #? History of DVT, hold? Eliquis as he might need surgery #? Tobacco use disorder:?offer nicotine patch #? COPD--no acute exacerbation--inhalers PRN DVT prophylaxis:?? compression device, Full code regular diet PT eval and likely will need placement at dischrge need for inpatient: treatment gluteal abscess and cellulitis? with IV Abx and surgical evaluation, and impending? ofalchol withdrwal Time Spent With Patient Time: Total time managing care of this patient today ____ minutes. Quality Stroke Does the patient have a stroke diagnosis?: No VTE Prior VTE?: Yes VTE Risk Level:: Medical - moderate - high VTE Device Contraindication: N/A - Device Ordered VTE Drug Contraindication: Treatment Not Tolerated
--- NOTE | 2022-10-09 10:51 | MHC.CM.PN ---
EMR REVIEWED, PER HOSPITALIST PT WILL LIKELY NEED PICC AND [facility] IV VANCO Q12HR AT SNF, PT EVAL TO BE ORDERED AND ANTIC PICC PLACEMENT THURSDAY 10/12, CM WILL MEET W/PT TO DISCUSS SNF PREFERENCES AND CONT TO FOLLOW D/C NEEDS.
--- NOTE | 2022-10-09 12:40 | HO.POSTANES ---
Post Anesthesia Evaluation Post Anesthesia Evaluation Date of Service: 10/09/22 Vital Signs: Vital Signs Temp Pulse Resp BP Pulse Ox O2 Del Method 10/09/22 07:28 97.7 F 84 20 129/60 96 Room Air Anesthesia: Monitored Mental Status: Awake Pain Control: Satisfactory Nausea/Vomiting: None Hydration: Adequate Anesthesia-Related Issues: No Anes. Related Issues
[2022-10-09] MEDS: Acetaminophen 325 MG TABLET 650 MG PO (15:41)
[2022-10-09] MEDS: 0.9 % Sodium Chloride Flush 3 ML SYRINGE IVFLUSH ×2 (15:42→20:06)
[2022-10-09 15:52] VITALS: BP 126/64; PULSE 75; RESP 18; TEMP 38.1; O2SAT 95
--- NOTE | 2022-10-09 16:34 | PC.NURSE ---
T/w to assess pt for consult regarding ETOH use. Pt side lying to right side in bed watching tv. Pt denies withdrawal symptoms at this time, reporting only full body pain my body feels like its been in a car accident, my ass hurts. 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 No tremor or diaphoresis noted at this time, pt alert and appropriate in conversation. Resources left with pt and encouraged to call clinic with any questions.
[2022-10-09 16:39] LABS: Vancomycin Trough 13.1 mcg/mL (10.0-20.0)
[2022-10-09 20:40] VITALS: BP 114/60; PULSE 75; RESP 19; TEMP 37.2; O2SAT 95
[2022-10-09] MEDS: diphenhydrAMINE HCL 25 MG CAPSULE PO (20:44)
[2022-10-09] MEDS: Famotidine 20 MG TABLET PO (20:44)
[2022-10-09 23:33] VITALS: BP 105/59; PULSE 95; RESP 20; TEMP 37.2; O2SAT 96
[2022-10-10] MEDS: Morphine Sulfate 4 MG/ML CARTRIDGE 3 MG IVPUSH (04:01)
[2022-10-10 04:02] VITALS: BP 133/70; PULSE 73; RESP 18; TEMP 36.2; O2SAT 96
[2022-10-10] MEDS: Piperacillin Sodium/Tazobactam 3.375 GM in 0.9 % Sodium Chloride 50 ML IV ×4 (04:02→20:49)
[2022-10-10] MEDS: vancomycin HCL 1,000 MG in 0.9 % Sodium Chloride 250 ML 270 MG IV ×2 (04:45→18:23)
[2022-10-10 06:25] LABS: Creatinine Clr Calc Pharmacy 88.9; Estimated Glomerular Filt Rate > 60
--- NOTE | 2022-10-10 08:19 | HO.PM.IMPN ---
Subjective Subjective Date of Service: 10/10/22 Interval History: f/u on gluteal abscess/cellulitis interval history: pain is better r Physical Exam Vital Signs: Vital Signs: Last Vital Signs Temp 97.1 F 10/10/22 04:02 Pulse 73 10/10/22 04:02 Resp 18 10/10/22 04:02 BP 133/70 10/10/22 04:02 Pulse Ox 96 10/10/22 04:02 O2 Del Method Room Air 10/10/22 04:02 BMI result Body Mass Index 19.8 Const: Other: General: AO X 3, no acute distress Resp: CTA bilateral CVS: S1,S2,RRR GI: +BS, NT, no distention Skin: No rash--see pic after i and d, debridmen Neuro: motor grossly intact Psych: appropriate affect Objective Data Active Medications Acetaminophen (Acetaminophen 325 Mg Tablet) 650 mg PO Q6H PRN PRN Reason: Pain, Mild (Pain Scale 1-3) Last Admin: 10/09/22 15:41 Dose: 650 mg Documented By: TARAH Albuterol Sulfate (Albuterol Sulfate 90 Mcg 8 Gm Inhaler) 1 puff INHALE Q4H PRN PRN Reason: Shortness Of Breath Or Wheezing Last Admin: 10/09/22 05:46 Dose: 1 puff Documented By: JIM Albuterol/Ipratropium (Albuterol/Iprat 2.5/0.5mg 3 Ml Ampul.Neb) 3 ml INHALE QID PRN PRN Reason: Shortness Of Breath Diphenhydramine HCl (Diphenhydramine Hcl 25 Mg Capsule) 25 mg PO Q6H PRN PRN Reason: Itching Last Admin: 10/09/22 20:44 Dose: 25 mg Documented By: BRYNN Docusate Sodium (Docusate Sodium 100 Mg Capsule) 100 mg PO DAILY PRN PRN Reason: Constipation Folic Acid (Folic Acid 1 Mg Tablet) 1 mg PO DAILY [facility] Stop: 10/10/22 09:01 Last Admin: 10/09/22 08:05 Dose: 1 mg Documented By: TARAH Piperacillin Sod/Tazobactam (Sod 3.375 gm/ Sodium Chloride) 50 mls @ 100 mls/hr IV Q6H [facility] Last Infusion: 10/10/22 04:40 Dose: 0 mls/hr Documented By: BRYNN Vancomycin HCl 1,000 mg/ (Sodium Chloride) 270 mls @ 270 mls/hr IV Q12H [facility] Last Infusion: 10/10/22 05:49 Dose: 0 mls/hr Documented By: BRYNN Morphine Sulfate (Morphine Sulfate 4 Mg/Ml Cartridge) 3 mg IVPUSH Q4H PRN; Protocol PRN Reason: Pain, Severe (Pain Scale 7-10) Last Admin: 10/10/22 04:01 Dose: 3 mg Documented By: BRYNN Ondansetron HCl (Ondansetron Hcl 4 Mg/2 Ml Vial) 4 mg IVPUSH Q8H PRN PRN Reason: Nausea and Vomiting Oxycodone HCl (Oxycodone Hcl Immed Release 5 Mg Tablet) 5 mg PO Q4H PRN PRN Reason: Pain, Moderate(Pain Scale 4-6) Last Admin: 10/09/22 18:04 Dose: 5 mg Documented By: TARAH Pharmacy Consult (Consult Rx Vancomycin Dosing) 1 each MISCELLANE DAILY PRN PRN Reason: Consult order Pharmacy Consult (Consult Rx Etoh Phenob Im/Po) 1 each MISCELLANE ONCE PRN; Protocol PRN Reason: Consult order Phenobarbital (Phenobarbital 15 Mg Tablet) 15 mg PO BID [facility]; Protocol Stop: 10/11/22 21:01 Phenobarbital (Phenobarbital 15 Mg Tablet) 15 mg PO DAILY [facility]; Protocol Stop: 10/13/22 09:01 Sodium Chloride (0.9 % Sodium Chloride Flush 3 Ml Syringe) 3 ml IVFLUSH [facility] Last Admin: 10/09/22 20:06 Dose: 3 ml Documented By: BRYNN Thiamine HCl (Thiamine Hcl 100 Mg Tablet) 100 mg PO DAILY [facility] Stop: 10/10/22 09:01 Last Admin: 10/09/22 08:05 Dose: 100 mg Documented By: TARAH Labs 10/08/22 07:53 10/10/22 05:39 Labs: Laboratory Results - last 24 hr 10/09/22 10/10/22 16:07 05:39 Estim Creat Clear Calc 88.9 Estimated GFR > 60 Vancomycin Trough 13.1 Microbiology Microbiology Results: Microbiology 10/08/22 21:15 Blood Culture - Preliminary Blood - Venous No growth after 24 hours. 10/08/22 21:15 Blood Culture - Preliminary Blood - Venous No growth after 24 hours. 10/08/22 14:34 Gram Stain - Final Ulcer - Wound Routine Culture - Preliminary Culture in progress. 10/08/22 14:34 Gram Stain - Final Ulcer - Swab Routine Culture - Preliminary Culture in progress. 10/08/22 14:34 Gram Stain - Final Ulcer - Wound Routine Culture - Preliminary Culture in progress. Anaerobic Culture - Preliminary Culture in progress. 10/07/22 15:40 Blood Culture - Preliminary Blood - Venous Prelim: GNR Gram Stain only 10/07/22 15:40 Blood Culture - Preliminary Blood - Venous Prelim: GNR Gram Stain only Assessment and Plan (1) Cellulitis, gluteal: Status: Acute (2) Gluteal abscess: Status: Acute Plan 61-year-old male with pertinent history of alcohol use disorder, copd, tobacco use disorder, DVT on Eliquis here with? several days of buttock and rectal pain, difficulty sitting. He has no fever WBC is normal, appear to have abscess and definately cellulitis--see pictures. CT of pelvis is pending. Additionally, he has not drank in at least 3 dasys and starting to show sings of alcohol? withdrwal #Buttock abscess Cellulitis, continue gram positive and gram negative coverage with Zosyn and Vanco started 10/07, s/p I and D 10/08, continue dressing changes as directed by Surgeon # Alcohol use disorder/Alcohol withdrawal, Start Phenobarbital , folic Acid, thiamine and CARE team consult before discharge #? History of DVT, restart? Eliquis today if h/h ok #? Tobacco use disorder:?offer nicotine patch #? COPD--no acute exacerbation--inhalers PRN DVT prophylaxis:?? compression device, Full code regular diet PT eval and likely will need placement at dischrge need for inpatient: treatment gluteal abscess and cellulitis? with IV Abx and surgical evaluation, and impending? ofalchol christine Time Spent With Patient Time: Total time managing care of this patient today ____ minutes. Quality Stroke Does the patient have a stroke diagnosis?: No VTE Prior VTE?: Yes VTE Risk Level:: Medical - moderate - high VTE Device Contraindication: N/A - Device Ordered VTE Drug Contraindication: Treatment Not Tolerated
[2022-10-10 08:23] VITALS: BP 112/64; PULSE 90; RESP 20; TEMP 36.9; O2SAT 95
[2022-10-10 09:04] LABS: Hematocrit 30.3 % (42.0-52.0); Hemoglobin 9.5 g/dl (14.0-18.0); Mean Corpuscular HGB Conc 31.4 g/dl (31.0-36.0); Mean Corpuscular Hemoglobin 29.2 pg (27.0-33.0); Mean Corpuscular Volume 93.2 fL (80.0-98.0); Mean Platelet Volume 9.4 fL (9.4-12.4); Platelet Count 293 X10*3/uL (160-400); Red Blood Count 3.25 X10*6/uL (4.60-5.80); Red Cell Distribution Width 16.1 % (11.0-16.0); White Blood Count 5.3 X10*3/uL (4.8-10.8)
[2022-10-10] MEDS: Folic Acid 1 MG TABLET PO (09:13)
[2022-10-10] MEDS: oxyCODONE HCl Immed Release 5 MG TABLET PO ×3 (09:13→20:48)
[2022-10-10] MEDS: Thiamine HCL 100 MG TABLET PO (09:13)
[2022-10-10] MEDS: 0.9 % Sodium Chloride Flush 3 ML SYRINGE IVFLUSH ×2 (09:13→17:14)
[2022-10-10] MEDS: PHENobarbitaL 15 MG TABLET PO ×2 (09:14→20:48)
--- NOTE | 2022-10-10 11:15 | PM.EVENT ---
Event Note Date of Service: 10/10/22 Event Note: denies new complaints i changed his dressings moist packing applied continue wound care change position side to side Time Spent With Patient Time: Total time managing care of this patient today ____ minutes.
[2022-10-10 11:23] VITALS: BP 138/65; PULSE 69; RESP 20; TEMP 37.4; O2SAT 95
[2022-10-10 16:02] VITALS: BP 113/56; PULSE 74; RESP 18; TEMP 36.9; O2SAT 94
[2022-10-10 16:52] LABS: Vancomycin Random 15.2 mcg/mL (15-20)
[2022-10-10 19:40] VITALS: BP 137/74; PULSE 82; RESP 19; TEMP 37.6; O2SAT 94
[2022-10-10] MEDS: Acetaminophen 325 MG TABLET 650 MG PO (20:48)
[2022-10-10] MEDS: Calcium Carbonate 750 MG TAB.CHEW PO (20:48)
[2022-10-10] MEDS: ondansetron HCL 4 MG/2 ML VIAL IVPUSH (21:08)
[2022-10-11] MEDS: Piperacillin Sodium/Tazobactam 3.375 GM in 0.9 % Sodium Chloride 50 ML IV ×4 (04:17→20:44)
[2022-10-11] MEDS: vancomycin HCL 1,000 MG in 0.9 % Sodium Chloride 250 ML 270 MG IV ×2 (05:45→18:13)
[2022-10-11 06:52] LABS: Creatinine Clr Calc Pharmacy 90.1; Estimated Glomerular Filt Rate > 60
[2022-10-11 07:41] VITALS: BP 120/59; PULSE 70; RESP 18; TEMP 36.9; O2SAT 92
[2022-10-11] MEDS: oxyCODONE HCl Immed Release 5 MG TABLET PO ×4 (07:42→20:41)
[2022-10-11] MEDS: PHENobarbitaL 15 MG TABLET PO ×2 (07:42→20:41)
[2022-10-11] MEDS: 0.9 % Sodium Chloride Flush 3 ML SYRINGE IVFLUSH ×3 (07:43→20:41)
[2022-10-11] MEDS: Acetaminophen 325 MG TABLET 650 MG PO ×2 (10:13→20:40)
[2022-10-11 11:24] VITALS: BP 114/69; PULSE 63; RESP 20; TEMP 37.3; O2SAT 92
--- NOTE | 2022-10-11 12:23 | P.PNIM_ITS ---
Subjective Subjective Date of Service: 10/11/22 Interval History: Follow-up for patient with gluteal abscess and cellulitis, s/p drainage and debridement in [place] Reports continued severe pain at surgical site, 8 States has been moving his bowels since yesterday Chronic cough and wheezing, shortness of breath Has been using his home inhaler to little Has had limited out of bed ambulation, currently only to commode and back Dressing changed by surgery yesterday Review of Systems Left gluteal pain Chronic shortness of breath Chronic wheezing, cough Denies chest pain/pressure, palpitations No fever, chills, nausea, vomiting, abdominal pain Physical Exam Vital Signs: Vital Signs: Last Vital Signs Temp 99.1 F 10/11/22 11:24 Pulse 63 10/11/22 11:24 Resp 20 10/11/22 11:24 BP 114/69 10/11/22 11:24 Pulse Ox 92 10/11/22 11:24 O2 Del Method Room Air 10/11/22 11:24 BMI result Body Mass Index 19.8 General: AOx3, no acute distress Resp: Coarse diffuse expiratory wheezing bilaterally CVS: S1, S2, RRR GI: +BS, NT, no distention Skin: See picture below, s/p I&D and debridement Neuro: Cranial nerves II-XII grossly intact bilaterally. Motor grossly intact bilaterally Extremities: No edema Psych: Appropriate affect Objective Data Active Medications Acetaminophen (Acetaminophen 325 Mg Tablet) 650 mg PO Q6H PRN PRN Reason: Pain, Mild (Pain Scale 1-3) Last Admin: 10/11/22 10:13 Dose: 650 mg Documented By: NERI Albuterol Sulfate (Albuterol Sulfate 90 Mcg 8 Gm Inhaler) 1 puff INHALE Q4H PRN PRN Reason: Shortness Of Breath Or Wheezing Last Admin: 10/09/22 05:46 Dose: 1 puff Documented By: JIM Albuterol/Ipratropium (Albuterol/Iprat 2.5/0.5mg 3 Ml Ampul.Neb) 3 ml INHALE QID PRN PRN Reason: Shortness Of Breath Calcium Carbonate (Calcium Carbonate 750 Mg Tab.Chew) 750 mg PO Q6H PRN PRN Reason: Heartburn Last Admin: 10/10/22 20:48 Dose: 750 mg Documented By: YOVANA Diphenhydramine HCl (Diphenhydramine Hcl 25 Mg Capsule) 25 mg PO Q6H PRN PRN Reason: Itching Last Admin: 10/09/22 20:44 Dose: 25 mg Documented By: BRYNN Docusate Sodium (Docusate Sodium 100 Mg Capsule) 100 mg PO DAILY PRN PRN Reason: Constipation Piperacillin Sod/Tazobactam (Sod 3.375 gm/ Sodium Chloride) 50 mls @ 100 mls/hr IV Q6H [facility] Last Infusion: 10/11/22 08:13 Dose: 0 mls/hr Documented By: NERI Vancomycin HCl 1,000 mg/ (Sodium Chloride) 270 mls @ 270 mls/hr IV Q12H [facility] Last Infusion: 10/11/22 06:49 Dose: 270 mls/hr Documented By: MELVI Morphine Sulfate (Morphine Sulfate 4 Mg/Ml Cartridge) 3 mg IVPUSH Q4H PRN; Protocol PRN Reason: Pain, Severe (Pain Scale 7-10) Last Admin: 10/10/22 04:01 Dose: 3 mg Documented By: BRYNN Ondansetron HCl (Ondansetron Hcl 4 Mg/2 Ml Vial) 4 mg IVPUSH Q8H PRN PRN Reason: Nausea and Vomiting Last Admin: 10/10/22 21:08 Dose: 4 mg Documented By: YOVANA Oxycodone HCl (Oxycodone Hcl Immed Release 5 Mg Tablet) 5 mg PO Q4H PRN PRN Reason: Pain, Moderate(Pain Scale 4-6) Last Admin: 10/11/22 11:48 Dose: 5 mg Documented By: NERI Pharmacy Consult (Consult Rx Vancomycin Dosing) 1 each MISCELLANE DAILY PRN PRN Reason: Consult order Pharmacy Consult (Consult Rx Etoh Phenob Im/Po) 1 each MISCELLANE ONCE PRN; Protocol PRN Reason: Consult order Phenobarbital (Phenobarbital 15 Mg Tablet) 15 mg PO BID [facility]; Protocol Stop: 10/11/22 21:01 Last Admin: 10/11/22 07:42 Dose: 15 mg Documented By: NERI Phenobarbital (Phenobarbital 15 Mg Tablet) 15 mg PO DAILY [facility]; Protocol Stop: 10/13/22 09:01 Sodium Chloride (0.9 % Sodium Chloride Flush 3 Ml Syringe) 3 ml IVFLUSH QSHIFT [facility] Last Admin: 10/11/22 07:43 Dose: 3 ml Documented By: NERI Labs 10/10/22 05:39 10/11/22 05:42 Labs: Laboratory Results - last 24 hr 10/10/22 10/11/22 16:13 05:42 Estim Creat Clear Calc 90.1 Estimated GFR > 60 Random Vancomycin 15.2 Microbiology Microbiology Results: Microbiology 10/08/22 14:34 Gram Stain - Final Ulcer - Wound Routine Culture - Final Citrobacter freundii 10/08/22 21:15 Blood Culture - Preliminary Blood - Venous No growth after 48 hours. 10/08/22 21:15 Blood Culture - Preliminary Blood - Venous No growth after 48 hours. 10/07/22 15:40 Blood Culture - Final Blood - Venous Prevotella species 10/08/22 14:34 Gram Stain - Final Ulcer - Swab Routine Culture - Final 10/08/22 14:34 Gram Stain - Final Ulcer - Wound Routine Culture - Final Anaerobic Culture - Preliminary Culture in progress. Assessment and Plan (1) Cellulitis, gluteal: Status: Acute (2) Gluteal abscess: Status: Acute (3) Alcohol dependence: Status: Acute Plan 61-year-old male with pertinent history of alcohol use disorder, copd, tobacco use disorder, DVT on Eliquis here with?several days of buttock and rectal pain, difficulty sitting. He has no fever, WBC is normal, appears to have abscess and cellulitis. Additionally, he has not drank in at least 3 days and starting to show sings of alcohol?withdrwal # Buttock abscess Cellulitis,?continue gram positive and gram negative coverage with Zosyn and Vanco started 10/07, s/p I and D 10/08, continue dressing changes as directed by Surgeon Pain not well controlled, will switch to morphine 4mg q4 for now, taper as tolerated. # Alcohol use disorder/Alcohol withdrawal, Start Phenobarbital , folic Acid, thiamine and CARE team consult before discharge #?History of DVT, restart?Eliquis tomorrow if h/h ok #?Tobacco use disorder:?offer nicotine patch #?COPD--no acute exacerbation--inhalers, duonebs PRN DVT prophylaxis:?? compression device, Full code regular diet PT eval and likely will need placement at dischrge need for inpatient: treatment gluteal abscess and cellulitis?with IV Abx and surgical evaluation, and impending?alcohol withdrwal Time Spent With Patient Time: Total time managing care of this patient today ____ minutes. Quality Stroke Does the patient have a stroke diagnosis?: No VTE Prior VTE?: Yes VTE Risk Level:: Medical - moderate - high VTE Device Contraindication: N/A - Device Ordered VTE Drug Contraindication: Treatment Not Tolerated
[2022-10-11 14:55] VITALS: BP 115/58; PULSE 65; RESP 20; TEMP 36.3; O2SAT 95
[2022-10-11 17:17] LABS: Vancomycin Random 14.9 mcg/mL (15-20)
[2022-10-11] MEDS: Morphine Sulfate 4 MG/ML CARTRIDGE IVPUSH ×2 (18:13→23:20)
[2022-10-11 19:05] VITALS: BP 116/56; PULSE 66; RESP 20; TEMP 36.7; O2SAT 93
[2022-10-11 23:46] VITALS: BP 104/55; PULSE 66; RESP 18; TEMP 37; O2SAT 93
[2022-10-12] MEDS: Morphine Sulfate 4 MG/ML CARTRIDGE IVPUSH ×4 (03:14→21:16)
[2022-10-12] MEDS: Acetaminophen 325 MG TABLET 650 MG PO (03:15)
[2022-10-12] MEDS: Piperacillin Sodium/Tazobactam 3.375 GM in 0.9 % Sodium Chloride 50 ML IV ×4 (03:43→21:15)
[2022-10-12 03:53] VITALS: BP 101/51; PULSE 63; RESP 16; TEMP 36.6; O2SAT 95
[2022-10-12] MEDS: vancomycin HCL 1,000 MG in 0.9 % Sodium Chloride 250 ML 270 MG IV ×2 (06:28→17:01)
[2022-10-12 06:50] LABS: Hematocrit 28.1 % (42.0-52.0); Hemoglobin 9.1 g/dl (14.0-18.0); Mean Corpuscular HGB Conc 32.4 g/dl (31.0-36.0); Mean Corpuscular Hemoglobin 29.4 pg (27.0-33.0); Mean Corpuscular Volume 90.6 fL (80.0-98.0); Mean Platelet Volume 9.2 fL (9.4-12.4); Platelet Count 313 X10*3/uL (160-400); White Blood Count 4.8 X10*3/uL (4.8-10.8)
[2022-10-12 07:00] LABS: Creatinine Clr Calc Pharmacy 85.3; Estimated Glomerular Filt Rate > 60
[2022-10-12 07:38] VITALS: BP 110/61; PULSE 61; RESP 16; TEMP 36.4; O2SAT 93
[2022-10-12] MEDS: PHENobarbitaL 15 MG TABLET PO (08:31)
[2022-10-12] MEDS: 0.9 % Sodium Chloride Flush 3 ML SYRINGE IVFLUSH ×3 (08:32→21:22)
[2022-10-12 08:46] VITALS: BP 110/61; PULSE 61; O2SAT 93
[2022-10-12 11:39] VITALS: BP 105/60; PULSE 68; RESP 18; TEMP 36.8; O2SAT 95
--- NOTE | 2022-10-12 11:53 | PC.NURSE ---
Pt. moderate fall risk d/t medications and care equipment. Explained to pt. that he needs to ring before getting up to go to the bathroom and the use of the bed alarm. Pt. is refusing to have bed alarm on and is impulsive when getting up to use the bathroom. Pt. is Ax4 and has a steady gait. Will continue to educate pt. on the importance of safety when going to the bathrom
--- NOTE | 2022-10-12 12:31 | P.PNIM_ITS ---
Subjective Subjective Date of Service: 10/12/22 Interval History: Follow-up for patient with gluteal abscess and cellulitis, s/p drainage and debridement in OR doing better oob ambulating in room Physical Exam Vital Signs: Vital Signs: Last Vital Signs Temp 98.2 F 10/12/22 11:39 Pulse 68 10/12/22 11:39 Resp 18 10/12/22 11:39 BP 105/60 10/12/22 11:39 Pulse Ox 95 10/12/22 11:39 O2 Del Method Room Air 10/12/22 11:39 BMI result Body Mass Index 19.8 Appearing in no acute distress lung sounds are clear to auscultation heart regular rate rhythm, clear S1, S2 positive bowel sounds, abdomen is soft, nontender neuro patient is alert x3, no focal deficits large gluteal decubitus ulcer 4x4cm Objective Data Active Medications Acetaminophen (Acetaminophen 325 Mg Tablet) 650 mg PO Q6H PRN PRN Reason: Pain, Mild (Pain Scale 1-3) Last Admin: 10/12/22 03:15 Dose: 650 mg Documented By: YOVANA Albuterol Sulfate (Albuterol Sulfate 90 Mcg 8 Gm Inhaler) 1 puff INHALE Q4H PRN PRN Reason: Shortness Of Breath Or Wheezing Last Admin: 10/09/22 05:46 Dose: 1 puff Documented By: JIM Albuterol/Ipratropium (Albuterol/Iprat 2.5/0.5mg 3 Ml Ampul.Neb) 3 ml INHALE QID PRN PRN Reason: Shortness Of Breath Calcium Carbonate (Calcium Carbonate 750 Mg Tab.Chew) 750 mg PO Q6H PRN PRN Reason: Heartburn Last Admin: 10/10/22 20:48 Dose: 750 mg Documented By: YVOANA Diphenhydramine HCl (Diphenhydramine Hcl 25 Mg Capsule) 25 mg PO Q6H PRN PRN Reason: Itching Last Admin: 10/09/22 20:44 Dose: 25 mg Documented By: BRYNN Docusate Sodium (Docusate Sodium 100 Mg Capsule) 100 mg PO DAILY PRN PRN Reason: Constipation Piperacillin Sod/Tazobactam (Sod 3.375 gm/ Sodium Chloride) 50 mls @ 100 mls/hr IV Q6H [facility] Last Infusion: 10/12/22 09:04 Dose: 0 mls/hr Documented By: JOSHUA Vancomycin HCl 1,000 mg/ (Sodium Chloride) 270 mls @ 270 mls/hr IV Q12H [facility] Last Infusion: 10/12/22 07:29 Dose: 0 mls/hr Documented By: JOSHUA Morphine Sulfate (Morphine Sulfate 4 Mg/Ml Cartridge) 4 mg IVPUSH Q4H PRN; Protocol PRN Reason: Pain, Severe (Pain Scale 7-10) Last Admin: 10/12/22 08:31 Dose: 4 mg Documented By: JOSHUA Ondansetron HCl (Ondansetron Hcl 4 Mg/2 Ml Vial) 4 mg IVPUSH Q8H PRN PRN Reason: Nausea and Vomiting Last Admin: 10/10/22 21:08 Dose: 4 mg Documented By: YOVANA Oxycodone HCl (Oxycodone Hcl Immed Release 5 Mg Tablet) 5 mg PO Q4H PRN PRN Reason: Pain, Moderate(Pain Scale 4-6) Last Admin: 10/11/22 20:41 Dose: 5 mg Documented By: YOVANA Pharmacy Consult (Consult Rx Vancomycin Dosing) 1 each MISCELLANE DAILY PRN PRN Reason: Consult order Pharmacy Consult (Consult Rx Etoh Phenob Im/Po) 1 each MISCELLANE ONCE PRN; Protocol PRN Reason: Consult order Phenobarbital (Phenobarbital 15 Mg Tablet) 15 mg PO DAILY [facility]; Protocol Stop: 10/13/22 09:01 Last Admin: 10/12/22 08:31 Dose: 15 mg Documented By: JOSHUA Sodium Chloride (0.9 % Sodium Chloride Flush 3 Ml Syringe) 3 ml IVFLUSH QSHIFT [facility] Last Admin: 10/12/22 08:32 Dose: 3 ml Documented By: JOSHUA Labs 10/12/22 06:22 10/12/22 06:23 Labs: Laboratory Results - last 24 hr 10/11/22 10/12/22 10/12/22 16:17 06:22 06:23 MCV 90.6 MCH 29.4 MCHC 32.4 RDW 16.0 Plt Count 313 MPV 9.2 L Absolute Nucleated RBC 0.000 Nucleated RBC % (auto) 0.0 Estim Creat Clear Calc 85.3 Estimated GFR > 60 Random Vancomycin 14.9 L Microbiology Microbiology Results: Microbiology 10/08/22 14:34 Gram Stain - Final Ulcer - Wound Routine Culture - Final Anaerobic Culture - Final Bacteroides fragilis Assessment and Plan (1) Cellulitis, gluteal: Status: Acute (2) Gluteal abscess: Status: Acute (3) Alcohol dependence: Status: Acute Plan 61-year-old male with pertinent history of alcohol use disorder, copd, tobacco u se disorder, DVT on Eliquis here with?several days of buttock and rectal pain, difficulty sitting. He has no fever, WBC is normal, appears to have abscess and cellulitis. Additionally, he has not drank in at least 3 days and starting to show sings of alcohol?withdrwal Buttock abscess Cellulitis continue gram positive and gram negative coverage with Zosyn and Vanco started 10/07 s/p I and D 10/08, continue dressing changes as directed by Surgeon Alcohol use disorder/Alcohol withdrawal Phenobarbital , folic Acid, thiamine CARE team consult History of DVT restarted?Eliquis Tobacco use disorder nicotine patch COPD no acute exacerbation inhalers, duonebs PRN DVT prophylaxis:??compression device, Full code attending Dr. West PT rec STR need for inpatient: treatment gluteal abscess and cellulitis?with IV Abx and surgical evaluation, and impending?alcohol withdrwal Time Spent With Patient Time: Total time managing care of this patient today ____ minutes. Quality Stroke Does the patient have a stroke diagnosis?: No VTE Prior VTE?: Yes VTE Risk Level:: Medical - moderate - high VTE Device Contraindication: N/A - Device Ordered VTE Drug Contraindication: Treatment Not Tolerated
--- NOTE | 2022-10-12 15:09 | MHC.CM.PN ---
EMR reviewed and per MD rounds, pt is not medically cleared for D/C today, anticipating D/C to rehab tomorrow. This CM met with pt and he is agreeable in going to [facility] who is following. CM will continue to follow for D/C.
--- NOTE | 2022-10-12 15:47 | P.CDIM_ITS ---
PROVIDER RESPONSE TEXT: To clarify, the appropriate diagnosis supported by the clinical indicators: Other (explain): stage 4 QUERY TEXT: PHYSICIAN'S DOCUMENTATION REQUEST Date of Query: 10/12/2022 01:51 PM EDT Patient Name: Edgardo Zavala Admit Date: 10/07/2022 Dear Katharina Grimes, A review of the medical record indicates additional documentation may be needed. Please review below and update the documentation accordingly. Clinical Indicators: Per Hospitalist Progress Note 10/12/22: gluteal abscess large gluteal decubitus ulcer 4x4cm Buttock abscess Cellulitis continue gram positive and gram negative coverage with Zosyn and Vanco started 10/07 s/p I and D 10/08, continue dressing changes as directed by Surgeon Please clarify the type and location of wound: Gluteal abscess Gluteal decubitus ulcer, please specify stage Buttock abscess, please specify if left buttock or right buttock Other (explain)Clinically unable to determine (explain)Thank you, Amarilis Boles RN Use of terms such as suspected, likely, concern for, or probable (associated with a specific diagnosi s that is being evaluated, monitored, or treated as if it exists) are acceptable and can be coded in the inpatient se tting, when documented at the time of discharge. Please use your independent medical judgment in providing your response. THIS QUERY IS PART OF THE PERMANENT MEDICAL RECORD
[2022-10-12 18:09] LABS: Vancomycin Random 18.1 mcg/mL (15-20)
[2022-10-12] MEDS: Apixaban 5 MG TABLET PO (21:14)
[2022-10-12 23:50] VITALS: BP 125/68; PULSE 62; RESP 16; TEMP 37; O2SAT 95
[2022-10-13] MEDS: Morphine Sulfate 4 MG/ML CARTRIDGE IVPUSH ×4 (04:00→20:30)
[2022-10-13] MEDS: Piperacillin Sodium/Tazobactam 3.375 GM in 0.9 % Sodium Chloride 50 ML IV ×4 (04:00→20:30)
[2022-10-13 04:33] VITALS: BP 101/59; PULSE 68; RESP 16; TEMP 36.3; O2SAT 91
[2022-10-13] MEDS: vancomycin HCL 1,000 MG in 0.9 % Sodium Chloride 250 ML 270 MG IV (05:18)
[2022-10-13] MEDS: Acetaminophen 325 MG TABLET 650 MG PO ×2 (05:18→21:06)
[2022-10-13 05:53] LABS: Basophils Absolute Auto 0.1 X10*3/uL (0.0-0.2); Basophils Percent Auto 1.2 % (0-2); Eosinophils Absolute Auto 0.2 X10*3/uL (0.0-0.4); Eosinophils Percent Auto 4.3 % (0-4); Hematocrit 28.9 % (42.0-52.0); Hemoglobin 9.3 g/dl (14.0-18.0); Imm Gran Abs Auto 0.02 X10*3/uL (0.00-0.03); Imm Gran Pct Auto 0.4 % (0.0-0.4); Lymphocytes Percent Auto 19.5 % (20-40); MANUAL DIFF FLAG SCAN; Mean Corpuscular HGB Conc 32.2 g/dl (31.0-36.0); Mean Corpuscular Hemoglobin 29.4 pg (27.0-33.0); Mean Corpuscular Volume 91.5 fL (80.0-98.0); Mean Platelet Volume 9.1 fL (9.4-12.4); Monocytes Absolute Auto 0.5 X10*3/uL (0.1-1.2); Monocytes Percent Auto 10.6 % (2-11); Neutrophils Absolute Auto 3.2 x10*3/uL (2.0-8.3); Platelet Count 327 X10*3/uL (160-400); Red Blood Count 3.16 X10*6/uL (4.60-5.80); Red Cell Distribution Width 16.4 % (11.0-16.0); SCAN SMEAR FLAG 1; White Blood Count 4.9 X10*3/uL (4.8-10.8)
[2022-10-13 06:11] LABS: SLIDE REVIEW VERIFIED
[2022-10-13 06:17] LABS: Creatinine Clr Calc Pharmacy 75.3; Estimated Glomerular Filt Rate > 60
[2022-10-13 07:32] VITALS: BP 104/54; PULSE 62; RESP 20; TEMP 36.4; O2SAT 93
[2022-10-13] MEDS: Apixaban 5 MG TABLET PO ×2 (08:10→20:30)
[2022-10-13] MEDS: PHENobarbitaL 15 MG TABLET PO (08:10)
[2022-10-13] MEDS: 0.9 % Sodium Chloride Flush 3 ML SYRINGE IVFLUSH ×2 (08:11→15:51)
[2022-10-13 09:19] VITALS: BP 104/54; PULSE 62; O2SAT 93
[2022-10-13 11:19] VITALS: BP 118/73; PULSE 64; RESP 20; TEMP 36.5; O2SAT 93
--- NOTE | 2022-10-13 12:30 | P.PNGS_ITS ---
Subjective Subjective Date of Service: 10/13/22 Interval history: Patient has improved symptoms of his gluteal abscess wound. Physical Exam Vital Signs: Vital Signs: Last Vital Signs Temp 97.7 F 10/13/22 11:19 Pulse 64 10/13/22 11:19 Resp 20 10/13/22 11:19 BP 118/73 10/13/22 11:19 Pulse Ox 93 10/13/22 11:19 O2 Del Method Room Air 10/13/22 11:19 BMI result Body Mass Index 19.8 Back/Spine/Pelvis: Other: Buttock wound healing uneventfully. Objective Data Active Medications Acetaminophen (Acetaminophen 325 Mg Tablet) 650 mg PO Q6H PRN PRN Reason: Pain, Mild (Pain Scale 1-3) Last Admin: 10/13/22 05:18 Dose: 650 mg Documented By: JULIO Albuterol Sulfate (Albuterol Sulfate 90 Mcg 8 Gm Inhaler) 1 puff INHALE Q4H PRN PRN Reason: Shortness Of Breath Or Wheezing Last Admin: 10/09/22 05:46 Dose: 1 puff Documented By: JIM Albuterol/Ipratropium (Albuterol/Iprat 2.5/0.5mg 3 Ml Ampul.Neb) 3 ml INHALE QI D PRN PRN Reason: Shortness Of Breath Apixaban (Apixaban 5 Mg Tablet) 5 mg PO BID [facility] Last Admin: 10/13/22 08:10 Dose: 5 mg Documented By: JOSHUA Calcium Carbonate (Calcium Carbonate 750 Mg Tab.Chew) 750 mg PO Q6H PRN PRN Reason: Heartburn Last Admin: 10/10/22 20:48 Dose: 750 mg Documented By: YOVANA Diphenhydramine HCl (Diphenhydramine Hcl 25 Mg Capsule) 25 mg PO Q6H PRN PRN Reason: Itching Last Admin: 10/09/22 20:44 Dose: 25 mg Documented By: BRYNN Docusate Sodium (Docusate Sodium 100 Mg Capsule) 100 mg PO DAILY PRN PRN Reason: Constipation Piperacillin Sod/Tazobactam (Sod 3.375 gm/ Sodium Chloride) 50 mls @ 100 mls/hr IV Q6H [facility] Last Infusion: 10/13/22 09:38 Dose: 0 mls/hr Documented By: JOSHUA Vancomycin HCl 1,000 mg/ (Sodium Chloride) 270 mls @ 270 mls/hr IV Q12H [facility] Last Infusion: 10/13/22 06:19 Dose: 0 mls/hr Documented By: JULIO Morphine Sulfate (Morphine Sulfate 4 Mg/Ml Cartridge) 4 mg IVPUSH Q4H PRN; Protocol PRN Reason: Pain, Severe (Pain Scale 7-10) Last Admin: 10/13/22 08:10 Dose: 4 mg Documented By: JOSHUA Ondansetron HCl (Ondansetron Hcl 4 Mg/2 Ml Vial) 4 mg IVPUSH Q8H PRN PRN Reason: Nausea and Vomiting Last Admin: 10/10/22 21:08 Dose: 4 mg Documented By: YOVANA Oxycodone HCl (Oxycodone Hcl Immed Release 5 Mg Tablet) 5 mg PO Q4H PRN PRN Reason: Pain, Moderate(Pain Scale 4-6) Last Admin: 10/11/22 20:41 Dose: 5 mg Documented By: YOVANA Pharmacy Consult (Consult Rx Vancomycin Dosing) 1 each MISCELLANE DAILY PRN PRN Reason: Consult order Pharmacy Consult (Consult Rx Etoh Phenob Im/Po) 1 each MISCELLANE ONCE PRN; Protocol PRN Reason: Consult order Sodium Chloride (0.9 % Sodium Chloride Flush 3 Ml Syringe) [facility] Last Admin: 10/13/22 08:11 Dose: 3 ml Documented By: JOSHUA Labs 10/13/22 05:18 10/13/22 05:18 Labs: Laboratory Results - last 24 hr 10/12/22 10/13/22 10/13/22 16:35 05:18 05:18 MCV 91.5 MCH 29.4 MCHC 32.2 RDW 16.4 H Plt Count 327 MPV 9.1 L Immature Gran % (Auto) 0.4 Neut % (Auto) 64.0 Lymph % (Auto) 19.5 L [place] % (Auto) 10.6 Eos % (Auto) 4.3 H Baso % (Auto) 1.2 Lymph # (Auto) 1.0 L [place] # (Auto) 0.5 Eos # (Auto) 0.2 Baso # (Auto) 0.1 Abs Immat Gran (auto) 0.02 Absolute Neuts (auto) 3.2 Absolute Nucleated RBC 0.000 Nucleated RBC % (auto) 0.0 Smear Tech's Comments VERIFIED Estim Creat Clear Calc 75.3 Estimated GFR > 60 Random Vancomycin 18.1 Procedures Date of Service Date of Service: 10/13/22 Progress Note: A&P Assessment and plan (1) Gluteal abscess: Status: Acute Plan Continue current therapy; dressing changes, position changes, optimize nutrition Time Spent With Patient Time: Total time managing care of this patient today ____ minutes. Quality Stroke Does the patient have a stroke diagnosis?: No VTE Prior VTE?: Yes VTE Risk Level:: Medical - moderate - high VTE Device Contraindication: N/A - Device Ordered VTE Drug Contraindication: Treatment Not Tolerated
--- NOTE | 2022-10-13 13:18 | MHC.CM.PN ---
Kerry @ [facility] has accepted Patient and CM has requested that they initiate auth from [facility]. OPERATIONS SECTION MANAGER made aware and CM will follow.
--- NOTE | 2022-10-13 14:05 | P.PNIM_ITS ---
Subjective Subjective Date of Service: 10/13/22 Interval History: Follow-up for patient with gluteal abscess and cellulitis, s/p drainage and debridement in OR doing better oob ambulating in room Physical Exam Vital Signs: Vital Signs: Last Vital Signs Temp 97.7 F 10/13/22 11:19 Pulse 64 10/13/22 11:19 Resp 20 10/13/22 11:19 BP 118/73 10/13/22 11:19 Pulse Ox 93 10/13/22 11:19 O2 Del Method Room Air 10/13/22 11:19 BMI result Body Mass Index 19.8 Appearing in no acute distress lung sounds are clear to auscultation heart regular rate rhythm, clear S1, S2 positive bowel sounds, abdomen is soft, nontender neuro patient is alert x3, no focal deficits Objective Data Active Medications Acetaminophen (Acetaminophen 325 Mg Tablet) 650 mg PO Q6H PRN PRN Reason: Pain, Mild (Pain Scale 1-3) Last Admin: 10/13/22 05:18 Dose: 650 mg Documented By: JULIO Albuterol Sulfate (Albuterol Sulfate 90 Mcg 8 Gm Inhaler) 1 puff INHALE Q4H PRN PRN Reason: Shortness Of Breath Or Wheezing Last Admin: 10/09/22 05:46 Dose: 1 puff Documented By: JIM Albuterol/Ipratropium (Albuterol/Iprat 2.5/0.5mg 3 Ml Ampul.Neb) 3 ml INHALE QID PRN PRN Reason: Shortness Of Breath Apixaban (Apixaban 5 Mg Tablet) 5 mg PO BID [facility] Last Admin: 10/13/22 08:10 Dose: 5 mg Documented By: JOSHUA Calcium Carbonate (Calcium Carbonate 750 Mg Tab.Chew) 750 mg PO Q6H PRN PRN Reason: Heartburn Last Admin: 10/10/22 20:48 Dose: 750 mg Documented By: YOVANA Diphenhydramine HCl (Diphenhydramine Hcl 25 Mg Capsule) 25 mg PO Q6H PRN PRN Reason: Itching Last Admin: 10/09/22 20:44 Dose: 25 mg Documented By: BRYNN Docusate Sodium (Docusate Sodium 100 Mg Capsule) 100 mg PO DAILY PRN PRN Reason: Constipation Piperacillin Sod/Tazobactam (Sod 3.375 gm/ Sodium Chloride) 50 mls @ 100 mls/hr IV Q6H [facility] Last Infusion: 10/13/22 09:38 Dose: 0 mls/hr Documented By: JOSHUA Vancomycin HCl 1,000 mg/ (Sodium Chloride) 270 mls @ 270 mls/hr IV Q12H [facility] Last Infusion: 10/13/22 06:19 Dose: 0 mls/hr Documented By: JULIO Morphine Sulfate (Morphine Sulfate 4 Mg/Ml Cartridge) 4 mg IVPUSH Q4H PRN; Protocol PRN Reason: Pain, Severe (Pain Scale 7-10) Last Admin: 10/13/22 08:10 Dose: 4 mg Documented By: JOSHUA Ondansetron HCl (Ondansetron Hcl 4 Mg/2 Ml Vial) 4 mg IVPUSH Q8H PRN PRN Reason: Nausea and Vomiting Last Admin: 10/10/22 21:08 Dose: 4 mg Documented By: YOVANA Oxycodone HCl (Oxycodone Hcl Immed Release 5 Mg Tablet) 5 mg PO Q4H PRN PRN Reason: Pain, Moderate(Pain Scale 4-6) Last Admin: 10/11/22 20:41 Dose: 5 mg Documented By: YOVANA Pharmacy Consult (Consult Rx Vancomycin Dosing) 1 each MISCELLANE DAILY PRN PRN Reason: Consult order Pharmacy Consult (Consult Rx Etoh Phenob Im/Po) 1 each MISCELLANE ONCE PRN; Protocol PRN Reason: Consult order Sodium Chloride (0.9 % Sodium Chloride Flush 3 Ml Syringe) 3 ml IVFLUSH QSHIFT [facility] Last Admin: 10/13/22 08:11 Dose: 3 ml Documented By: JOSHUA Labs 10/13/22 05:18 10/13/22 05:18 Labs: Laboratory Results - last 24 hr 10/12/22 10/13/22 10/13/22 16:35 05:18 05:18 MCV 91.5 MCH 29.4 MCHC 32.2 RDW 16.4 H Plt Count 327 MPV 9.1 L Immature Gran % (Auto) 0.4 Neut % (Auto) 64.0 Lymph % (Auto) 19.5 L [place] % (Auto) 10.6 Eos % (Auto) 4.3 H Baso % (Auto) 1.2 Lymph # (Auto) 1.0 L [place] # (Auto) 0.5 Eos # (Auto) 0.2 Baso # (Auto) 0.1 Abs Immat Gran (auto) 0.02 Absolute Neuts (auto) 3.2 Absolute Nucleated RBC 0.000 Nucleated RBC % (auto) 0.0 Smear Tech's Comments VERIFIED Estim Creat Clear Calc 75.3 Estimated GFR > 60 Random Vancomycin 18.1 Assessment and Plan (1) Cellulitis, gluteal: Status: Acute (2) Gluteal abscess: Status: Acute (3) Alcohol dependence: Status: Acute Plan 61-year-old male with pertinent history of alcohol use disorder, copd, tobacco use disorder, DVT on Eliquis here with?several days of buttock and rectal pain, difficulty sitting. He has no fever, WBC is normal, appears to have abscess and cellulitis. Additionally, he has not drank in at least 3 days and starting to show sings of alcohol?withdrwal Buttock abscess Cellulitis continue gram positive and gram negative coverage with Zosyn and Vanco started 10/07 s/p I and D 10/08, continue dressing changes as directed by Surgeon Alcohol use disorder/Alcohol withdrawal Phenobarbital , folic Acid, thiamine CARE team following History of DVT restarted?Eliquis Tobacco use disorder nicotine patch COPD no acute exacerbation inhalers, duonebs PRN DVT prophylaxis:??compression device, Full code attending Dr. West DISPO plan for STR when bed available need for inpatient: treatment gluteal abscess and cellulitis?with IV Abx and surgical evaluation, and impending?alcohol withdrwal Time Spent With Patient Time: Total time managing care of this patient today ____ minutes. Quality Stroke Does the patient have a stroke diagnosis?: No VTE Prior VTE?: Yes VTE Risk Level:: Medical - moderate - high VTE Device Contraindication: N/A - Device Ordered VTE Drug Contraindication: Treatment Not Tolerated
[2022-10-13 16:51] LABS: Vancomycin Trough 20.1 mcg/mL (10.0-20.0)
--- NOTE | 2022-10-13 17:21 | HE.PHANOTE ---
VANCO DOSE ADJUSTMENT BASED ON SCR 0.85 AND TROUGH OF 20.1 DOSE DECREASED TO 750 Q 12 WITH NEXT TROUGH AT 10/14 @ 1600
[2022-10-13] MEDS: ondansetron HCL 4 MG/2 ML VIAL IVPUSH (17:34)
[2022-10-13] MEDS: vancomycin HCL 750 MG in 0.9 % Sodium Chloride 250 ML 265 MG IV (17:43)
[2022-10-14 00:28] VITALS: BP 121/64; PULSE 70; RESP 15; TEMP 36.1; O2SAT 94
[2022-10-14] MEDS: Piperacillin Sodium/Tazobactam 3.375 GM in 0.9 % Sodium Chloride 50 ML IV ×2 (03:53→09:08)
[2022-10-14] MEDS: Acetaminophen 325 MG TABLET 650 MG PO (03:57)
[2022-10-14 04:16] VITALS: BP 117/58; PULSE 70; RESP 15; TEMP 37.1; O2SAT 95
[2022-10-14 06:12] LABS: Creatinine Clr Calc Pharmacy 68.8; Estimated Glomerular Filt Rate > 60
[2022-10-14] MEDS: vancomycin HCL 750 MG in 0.9 % Sodium Chloride 250 ML 265 MG IV (06:30)
[2022-10-14 07:31] VITALS: BP 140/60; PULSE 78; RESP 20; TEMP 36.7; O2SAT 93
--- NOTE | 2022-10-14 08:34 | P.DS_ITS ---
DS: Providers Provider Date of Service: 10/14/22 Date of admission: 10/07/22 19:42 Primary care physician: Cristhian Delgado MD Consults: 10/07/22 19:42 Consult to General Surgery Routine Consulting Provider[place] [facility] Reason for consultation: Left buttock cellulitis/necrosis 10/13/22 11:49 Consult to Infectious Diseases Routine Consulting Provider: [facility] Reason for consultation: wound infection DS: Diagnosis Discharge Diagnosis (1) Cellulitis, gluteal: Status: Acute (2) Gluteal abscess: Status: Acute (3) Alcohol dependence: Status: Acute DS: Summary Hospital Course Hospital Course: History and physical as per admitting provider. 61-year-old male with pertinent history of alcohol use disorder, copd, tobacco use disorder, DVT on Eliquis here with? several days of buttock and rectal pain, difficulty sitting. He has no fever WBC is normal, appear to have abscess and definately cellulitis--see pictures. CT of pelvis is pending. Additionally, he has not drank in at least 3 dasys and starting to show sings of alcohol? withalexandra. 62-year-old man treat gluteal abscess, stage IV decubitus ulcer measuring 4 x 4 cm. Patient had debridement on 10/08/2022 of a very large abscess cavity. Wound culture grew Citrobacter freundii and was treated with Zosyn and vancomycin during hospitalization to treat both g negative and g positives. Blood cultures remain negative. Patient has been ambulatory. Wound packed with moistened Kerlix and ABD pad. Patient would be a good candidate for wound VAC and should follow-up in the wound clinic. He will continue 3 more days of Levaquin for a total of 10 days of antibiotic therapy Alcohol use disorder. Treated with phenobarbital protocol, folic acid and thiamine. He had no episodes of withdrawal symptoms. History of DVT. He was continued on his Eliquis Tobacco use disorder. He was treated with nicotine patch. COPD. He experienced no exacerbations during hospitalizations. Continue home medications Less than 30 day stay Time Spent with Patient Time attestation: Total time managing care of this patient today ____ minutes. Discharge coordination time: Greater than 30 minutes Quality: Safe Use of Opioids Does Pt have an Active Cancer Diagnosis on the Problem List?: No Quality: Stroke Does the patient have a stroke diagnosis?: No Physical Exam Vital Signs: Vital Signs: Last Vital Signs Temp 98.1 F 10/14/22 07:31 Pulse 78 10/14/22 07:31 Resp 20 10/14/22 07:31 BP 140/60 H 10/14/22 07:31 Pulse Ox 93 10/14/22 07:31 O2 Del Method Room Air 10/14/22 07:31 BMI result Body Mass Index 19.8 Appearing in no acute distress head is normocephalic atraumatic eyes pupils are PERRLA sclera is anicteric mouth throat mucous membranes are intact and moist neck is supple no lymphadenopathy, no JVD noted lung sounds are clear to auscultation heart regular rate rhythm, clear S1, S2 positive bowel sounds, abdomen is soft, nontender neuro patient is alert x3, no focal deficits 4 x 4 cm gluteal decubitus ulcer DS: Data Data Completed and Pending Completed studies during hospitalization [Text1]: Procedures Detoxification Services for Substance Abuse Treatment (05/18/22) Labs on day of discharge: Laboratory Results - last 24 hr 10/13/22 10/14/22 16:16 05:29 Creatinine 0.93 Estim Creat Clear Calc 68.8 Estimated GFR > 60 Vancomycin Trough 20.1 H Preliminary micro results at discharge 10/07/22 15:40 Blood Culture - Preliminary Blood - Venous Prelim: GNR Gram Stain only Discharge Plan Discharge Anticipated Discharge Date/Time: 10/14/22 08:28 Patient Disposition: Xfer Inpatient Rehab Fac Discharge Diagnosis: Gluteal abscess Decubitus ulcer stage IV Referrals: Cristhian Delgado MD [Primary Care Provider] - Jennifer Rondon MD [Physician] - 1 Week (Candidate for wound VAC) Discharge Medications: New levofloxacin 500 mg tablet 500 mg PO DAILY Qty: 3 0RF Continued albuterol sulfate 90 mcg/actuation HFA aerosol inhaler 1 puff inhalation Q4H PRN (Reason: Shortness Of Breath Or Wheezing) Eliquis 5 mg tablet 5 mg PO BID Combivent Respimat 20-100 mcg/actuation mist 1 puff inhalation QID PRN (Reason: Shortness Of Breath) Discharge Orders: Discharge Order (Routine); Ordered 10/14/22 Ordered By: Katharina Grimes Diet: Advance to usual diet Activity on Discharge: As tolerated Stand Alone Forms: Patient Portal Discharge page Care Plan Goals: Daily dressing changes to gluteal ulcer, to dry dressing. Packed with gauze soaked with normal saline, cover with dry clean dressing, protect surrounding skin. Refer patient to [facility] after completion of antibiotics. Patient candidate for a wound VAC Health Concerns: Gluteal abscess Decubitus ulcer stage IV Plan of Treatment: Take all medications as prescribed Daily wound dressings Assessment: See discharge summary
--- NOTE | 2022-10-14 08:48 | MHC.CM.PN ---
Per WINDSURFING INSTRUCTOR, Patient is medically cleared for dc to SNF/STR today. [facility]. CM met with Patient at bedside and addressed IMM with him, providing Patient with the original and placing a copy on the chart. CM left a detailed message for Son/Real @ [phone], informing him of the dc plan.
[2022-10-14] MEDS: 0.9 % Sodium Chloride Flush 3 ML SYRINGE IVFLUSH (09:07)
[2022-10-14] MEDS: Morphine Sulfate 4 MG/ML CARTRIDGE IVPUSH (09:08)
[2022-10-14] MEDS: Apixaban 5 MG TABLET PO (09:08)
--- NOTE | 2022-10-14 17:00 | P.CDIM_ITS ---
PROVIDER RESPONSE TEXT: To clarify, the appropriate diagnosis supported by the clinical indicators: Hypomagnesemia QUERY TEXT: PHYSICIAN'S DOCUMENTATION REQUEST Date of Query: 10/08/2022 12:25 PM EDT Patient Name: Edgardo Zavala Admit Date: 10/07/2022 Dear Caden Hutchinson, A review of the medical record indicates additional documentation may be needed. Please review below and update the documentation accordingly. Clinical Indicators: Magnesium on 10/07/22: 1.2 Treated with Magnesium Sulfate/H2O 2 gm in 50 mls @ 25 mls/hr IV once Based on the above, could you clarify the appropriate diagnosis, if significant, that supports the ab ove abnormalities and additional evaluation, monitoring, and/or treatment rendered: Hypomagnesemia Labs indicate a diagnosis of (please specify) Other (explain)Clinically unable to determine (explain)Thank you, Amarilis Boles RN Use of terms such as suspected, likely, concern for, or probable (associated with a specific diagnosi s that is being evaluated, monitored, or treated as if it exists) are acceptable and can be coded in the inpatient se tting, when documented at the time of discharge. Please use your independent medical judgment in providing your response. THIS QUERY IS PART OF THE PERMANENT MEDICAL RECORD
--- NOTE | 2022-10-14 17:00 | P.CDIM_ITS ---
PROVIDER RESPONSE TEXT: To clarify, the appropriate diagnosis supported by the clinical indicators: Hypokalemia QUERY TEXT: PHYSICIAN'S DOCUMENTATION REQUEST Date of Query: 10/08/2022 12:22 PM EDT Patient Name: Edgardo Zavala Admit Date: 10/07/2022 Dear Caden Hutchinson, A review of the medical record indicates additional documentation may be needed. Please review below and update the documentation accordingly. Clinical Indicators: Potassium on 10/07/22: 3.1 Treated with Klor-Con 40 meq po once Potassium on 10/08/22: 3.6 Based on the above, could you clarify the appropriate diagnosis, if significant, that supports the ab ove abnormalities and additional evaluation, monitoring, and/or treatment rendered: Hypokalemia Labs indicate a diagnosis of (please specify) Other (explain)Clinically unable to determine (explain)Thank you, Amarilis Boles RN Use of terms such as suspected, likely, concern for, or probable (associated with a specific diagnosi s that is being evaluated, monitored, or treated as if it exists) are acceptable and can be coded in the inpatient se tting, when documented at the time of discharge. Please use your independent medical judgment in providing your response. THIS QUERY IS PART OF THE PERMANENT MEDICAL RECORD
== END 2022-10-14 11:42 | disposition skilled nursing facility (03) | DRG 570 ==
LOC: HO.ED 16:21 → HO.EDOVER 19:54 → HO.IMC 10-08 05:11
PROVIDERS: Internal Medicine; Physician Assistant; Surgery; Admitting Provider Student in an Organized Health Care Education/Training Program; Emergency Provider Student in an Organized Health Care Education/Training Program; PCP Internal Medicine; Visit Provider Nurse Practitioner Acute Care
PROC: 0JB90ZZ Excision of Buttock Subcutaneous Tissue and Fascia, Open Approach (ICD-10-PCS; principal; 2022-10-08 14:10)
DX: L02.31 Cutaneous abscess of buttock (principal); L89.154 Pressure ulcer of sacral region, stage 4; F10.239 Alcohol dependence with withdrawal, unspecified; I96 Gangrene, not elsewhere classified; B96.89 Other specified bacterial agents as the cause of diseases classified elsewhere; E87.6 Hypokalemia; E83.42 Hypomagnesemia; J44.9 Chronic obstructive pulmonary disease, unspecified; F17.210 Nicotine dependence, cigarettes, uncomplicated; Z71.6 Tobacco abuse counseling; Z79.01 Long term (current) use of anticoagulants; Z79.899 Other long term (current) drug therapy
CPT/HCPCS: 36415; 71045; 72193; 80048; 80076; 80202; 80307; 81001; 82550; 82565; 83605; 83735; 85025; 85027; 85610; 85652; 86140; 87040; 87070; 87073; 87076; 87077; 87185; 87186; 87205; 94640; 97110; 97116; 97162; 99285; J2250; J2270; J2405; J2543; J2560; J2795; J3010; J3370; J3475; Q9967

== ENCOUNTER → 2022-10-07 19:42 | Outpatient (BNV) | payer OTHER, SELFPAY | PROVIDERS: Admitting Provider Student in an Organized Health Care Education/Training Program; Emergency Provider Student in an Organized Health Care Education/Training Program; PCP Internal Medicine; Visit Provider Surgery | DX: I96 Gangrene, not elsewhere classified (principal); L89.323 Pressure ulcer of left buttock, stage 3; L02.31 Cutaneous abscess of buttock; L03.317 Cellulitis of buttock | CPT/HCPCS: 11042; 26990; 99024; 99223; 99499 ==

== ENCOUNTER → 2022-10-07 19:42 | Outpatient (BNV) | payer OTHER, SELFPAY | PROVIDERS: Admitting Provider Student in an Organized Health Care Education/Training Program; Emergency Provider Student in an Organized Health Care Education/Training Program; PCP Internal Medicine; Visit Provider Internal Medicine | DX: L03.317 Cellulitis of buttock (principal); L02.31 Cutaneous abscess of buttock; F10.20 Alcohol dependence, uncomplicated | CPT/HCPCS: 99222; 99232; 99239 ==

== ENCOUNTER 2022-10-29 12:02 | Emergency (ER) | payer OTHER, SELFPAY ==
[2022-10-29 12:14] VITALS: BP 109/67; BP 118/70; PULSE 75; PULSE 82; RESP 18; O2SAT 96; O2SAT 97; BMI 20.7
--- NOTE | 2022-10-29 12:17 | ED_ITS ---
HPI - Alcohol General Chief Complaint: ETOH/Substance Use Stated Complaint: ETOH USE PER EMS Time Seen by Provider: 10/29/22 12:17 Source: patient, EMS and old records reviewed Mode of arrival: EMS Limitations: no limitations History of Present Illness HPI narrative: 62 yo male with history of alcohol use disorder with multiple ER visits for ETOH presents to the ER via EMS for evaluation of alcohol intoxication. Patient called 911 asking to talk to the counselor with the police department. She is reportedly on vacation this week. EMS brought him here for evaluation. He admitted to 1 pint of [facility] today, usually drinks 2. He denies any falls or trauma. He denies SI or HI. He wants to go home. complaint: alcohol intoxication and alcohol dependence Last drink: Just prior to admission Chronic alcohol use: Yes Previous visits for alcohol intoxication: Yes Recent trauma: No Associated symptoms: denies other symptoms Treatments prior to arrival: none Related Data Home Medications Medication Instructions Recorded Confirmed albuterol sulfate 90 mcg/actuation 1 puff inhalation Q4H PRN 08/29/22 10/07/22 aerosol inhaler Shortness Of Breath Or Wheezing apixaban 5 mg tablet (Eliquis) 5 mg PO BID 08/29/22 10/07/22 ipratropium 20 mcg-albuterol 100 1 puff inhalation QID PRN 08/29/22 10/08/22 mcg/actuation mist for inhalation Shortness Of Breath (Combivent Respimat) Previous Rx's Medication Instructions Recorded levofloxacin 500 mg tablet 500 mg PO DAILY #3 tabs 10/14/22 Allergies Allergy/AdvReac Type Severity Reaction Status Date / Time Peanut Butter Allergy Facial Verified 10/29/22 12:22 Swelling raspberry Allergy Facial Verified 10/29/22 12:22 Swelling Review of Systems Review of Systems: Yes all other systems are reviewed and are negative PMFSH Past Medical History Medical History Acute and chronic respiratory failure with hypoxia Alcohol abuse Alcohol use disorder, severe, dependence Asthma COPD (chronic obstructive pulmonary disease) COPD (chronic obstructive pulmonary disease) DVT (deep venous thrombosis) Neuropathy Presence of IVC filter Subdural hematoma Tobacco abuse Social History Social History Household Members: None Housing: House Do you presently have visiting nurse or other home services: No Alcohol intake: current Alcohol intake frequency: 3 or more drinks per day Alcohol type: hard liquor Patient Tobacco Use Status: Current everyday Tobacco user Tobacco use type: Cigarette Cigarette Packs Per Day: 1 Cigarettes Per Day: 20.0 e-Cigarette/Vaping Use: Never Used Second Hand Smoke Exposure: No Substance Use Type: Marijuana Advance Directives: Yes Advance Directives on File: Yes Advance Directives Date on File: 03/05/22 service: No Current occupational status: disabled Physical Exam ED Vital Signs: Vital Signs - 24 hr 10/29/22 12:14 Pulse Rate 75 Respiratory Rate 18 Blood Pressure 109/67 Pulse Oximetry 96 Oxygen Delivery Method Room Air BMI result Body Mass Index 20.7 Appearance: Alert. Oriented X3. Appears older than stated age Head: normocephalic, atraumatic. Eyes: Pupils equal, round and reactive to light. No scleral icterus Neck: Normal inspection. CVS: Normal heart rate and rhythm. Pulses normal. Respiratory: No respiratory distress. Breath sounds normal. Abdomen: Soft and nontender. +BS x4 Skin: Skin warm and dry. Normal skin color. Normal skin turgor. No rashes. Extremities: No lower extremity edema. No joint swelling. Neuro/psych: Oriented X 3. No motor deficit. No sensory deficit. CN II-XII intact. Normal speech and cognition. Steady gait. No SI or HI Medical Decision Making Medical Decision Making MDM Narrative: 62 yo male well known to the ER staff who presents with alcohol use. history of similar presentations. no trauma today. he wants to get help for his drinking and speak to the counselor but he does not want to wait in the ER for this. he wants to go home. he is AAO x3, steady gait and appropriate. comfortable w/ discharge home. he called a cab. Differential Diagnosis Differential Diagnoses: The differential diagnosis associated with the presentation includes acute alcohol intoxication, polysubstance abuse, alcohol withdrawal Independent Historian Clinical information obtained from an independent historian. History obtained from or confirmed by: EMS External Record Review External record reviewed: Outpatient record and Prior outpatient labs Tests considered The following testing was considered but not selected: labs considered Chronic Conditions Patient?s care impacted by: Other (alcohol use disorder) Social Determinants Patient?s care significantly limited by Social Determinants of Health including: Alcoholism and drug addiction in family and Other Social Determinant of Health Critical Care Time Critical Care Time Critical Care Time: No Discharge Plan Discharge Clinical Impression: Alcohol intoxication Patient Disposition: Home, Self-Care Instructions: Alcohol Use Disorder (ED) Additional Instructions: do not drink alcohol recommend detox follow up with your doctor If you develop new or worsening symptoms call 911 or come back to the ER for further evaluation. Prescriptions: No Action albuterol sulfate 90 mcg/actuation HFA aerosol inhaler 1 puff inhalation Q4H PRN (Reason: Shortness Of Breath Or Wheezing) Eliquis 5 mg tablet 5 mg PO BID Combivent Respimat 20-100 mcg/actuation mist 1 puff inhalation QID PRN (Reason: Shortness Of Breath) levofloxacin 500 mg tablet 500 mg PO DAILY Qty: 3 0RF Interventions: ED Discharge Assessment Last Done: 10/29/22 12:32
--- NOTE | 2022-10-29 12:18 | PC.NURSE ---
Arrived via EMS from home for ETOH. Self reported that he drinks 2 pints of whiskey plus a sleeve of nips per day. Reported that he is here for alcoholism and wants help. Reported that he drank 1 pint of whiskey today. Attempted change of with security, pt declined, security conducted check of patient belongings. Belongings secured.
== END 2022-10-29 12:35 | disposition home or self-care (01) ==
PROVIDERS: Emergency Provider Emergency Medicine; PCP Internal Medicine
DX: F10.220 Alcohol dependence with intoxication, uncomplicated (principal); Y90.9 Presence of alcohol in blood, level not specified; F17.210 Nicotine dependence, cigarettes, uncomplicated; F12.90 Cannabis use, unspecified, uncomplicated; Z86.718 Personal history of other venous thrombosis and embolism; Z79.01 Long term (current) use of anticoagulants
CPT/HCPCS: 99282

== ENCOUNTER 2022-11-01 17:49 | Emergency (ER) | payer OTHER, SELFPAY ==
[2022-11-01 18:00] VITALS: BP 107/72; PULSE 83; RESP 16; TEMP 36.8; O2SAT 99; BMI 20.5
--- NOTE | 2022-11-01 18:34 | ED.GENADULT ---
HPI - General Adult General Chief complaint: ETOH/Substance Use Stated complaint: ETOH Time Seen by Provider: 11/01/22 17:54 Source: patient, RN notes reviewed and old records reviewed Mode of arrival: EMS Limitations: other (Acute alcohol intoxication) History of Present Illness HPI narrative: 62-year-old male presents for evaluation of ?I am an alcoholic. ? Patient states that he drinks heavily every day. Usually drinks ?2 pt of [employer] daily. ? Patient reports that he only drank 1 pt today He ?needs help with detox. ? The patient states that he has been to multiple detox facilities in the past He denies any suicidal ideation He reports he has neuropathy in his feet and ?is sprain to my hands. ? Denies any chest pain or abdominal pain Related Data Home Medications Medication Instructions Recorded Confirmed albuterol sulfate 90 mcg/actuation 1 puff inhalation Q4H PRN 08/29/22 10/07/22 aerosol inhaler Shortness Of Breath Or Wheezing apixaban 5 mg tablet (Eliquis) 5 mg PO BID 08/29/22 10/07/22 ipratropium 20 mcg-albuterol 100 1 puff inhalation QID PRN 08/29/22 10/08/22 mcg/actuation mist for inhalation Shortness Of Breath (Combivent Respimat) Previous Rx's Medication Instructions Recorded levofloxacin 500 mg tablet 500 mg PO DAILY #3 tabs 10/14/22 Allergies Allergy/AdvReac Type Severity Reaction Status Date / Time Peanut Butter Allergy Facial Verified 10/29/22 12:22 Swelling raspberry Allergy Facial Verified 10/29/22 12:22 Swelling Review of Systems Constitutional: Constitutional: Denies chills, Denies fever(s) and Denies headache(s) ENT: Denies headache(s) Cardiovascular: Cardiovascular: Denies chest pain and Denies dyspnea Respiratory: Respiratory: Denies cough and Denies dyspnea Gastrointestinal: Gastrointestinal: Denies abdominal pain, Denies nausea and Denies vomiting Musculoskeletal: Musculoskeletal: Denies back pain Integumentary/Breasts: Skin/Breast: Denies rash Neurologic: Denies headache(s) Psychiatric: Psychiatric: Denies anxiety and Denies depression PMFSH Past Medical History Medical History Acute and chronic respiratory failure with hypoxia Alcohol abuse Alcohol use disorder, severe, dependence Asthma COPD (chronic obstructive pulmonary disease) COPD (chronic obstructive pulmonary disease) DVT (deep venous thrombosis) Neuropathy Presence of IVC filter Subdural hematoma Tobacco abuse Social History Social History Household Members: None Housing: House Do you presently have visiting nurse or other home services: No Alcohol intake: current Alcohol intake frequency: 3 or more drinks per day Alcohol type: hard liquor Patient Tobacco Use Status: Current everyday Tobacco user Tobacco use type: Cigarette Cigarette Packs Per Day: 1 Cigarettes Per Day: 20.0 e-Cigarette/Vaping Use: Never Used Second Hand Smoke Exposure: No Substance Use Type: Marijuana Advance Directives: Yes Advance Directives on File: Yes Advance Directives Date on File: 03/05/22 service: No Current occupational status: disabled Physical Exam ED Vital Signs: Vital Signs - 24 hr 11/01/22 18:00 11/01/22 19:25 Temperature 98.3 F Pulse Rate 83 81 Respiratory Rate 16 18 Blood Pressure 107/72 118/76 Pulse Oximetry 99 94 Oxygen Delivery Method Room Air BMI result Body Mass Index 20.5 Const General: healthy appearing, comfortable, no acute distress, alert and awake Nutritional Appearance: well nourished Orientation/consciousness: patient oriented x3 HENMT Head: Yes normocephalic and Yes atraumatic Eyes Eyelids: Yes eyelids normal Conjunctivae: conjunctivae normal Sclerae: sclerae normal Corneas: corneas normal Pupils: Equal, round and reactive pupils present EOM: EOMs intact bilaterally Neck Neck: Yes full ROM Resp Effort & Inspection: normal respiratory effort, able to speak in complete sentences and not labored GI Inspection: No distended Palpation (GI): Soft to palpation, not firm, nontender, no guarding and not rigid Skin General skin exam: no rashes or lesions noted and elasticity normal Neuro General: patient oriented x3 Cranial nerves: Yes Equal, round and reactive pupils present and Yes Bilaterally intact EOM present Cognition (Neuro): normal cognition Extrem Other: Moving all extremities well without any obvious deformities Medical Decision Making Medical Decision Making MDM Narrative: 62-year-old male presents for evaluation of alcohol abuse. He will get medical clearance including alcohol level and will meet with the care team. He has no somatic complaints other than chronic pain in his feet. No obvious signs of trauma the patient denies any falls. Labs pending Differential Diagnosis Differential Diagnoses: The differential diagnosis associated with the presentation includes Alcohol abuse Acute alcohol intoxication Alcohol withdrawal Depression Lab Data 11/01/22 19:08 11/01/22 19:08 Labs: Lab Results 11/01/22 11/01/22 11/01/22 Range/Units 19:08 19:08 22:15 WBC 6.2 (4.8-10.8) X10*3/uL RBC 4.52 L D (4.60-5.80) X10*6/uL Hgb 12.8 L D (14.0-18.0) g/dl Hct 39.6 L D (42.0-52.0) % MCV 87.6 (80.0-98.0) fL MCH 28.3 (27.0-33.0) pg MCHC 32.3 (31.0-36.0) g/dl RDW 14.9 (11.0-16.0) % Plt Count 373 (160-400) X10*3/uL MPV 8.8 L (9.4-12.4) fL Immature Gran % (Auto) 0.5 H (0.0-0.4) % Neut % (Auto) 48.2 (45-73) % Lymph % (Auto) 35.9 (20-40) % Brooks % (Auto) 9.7 (2-11) % Eos % (Auto) 4.1 H (0-4) % Baso % (Auto) 1.6 (0-2) % Lymph # (Auto) 2.2 (1.2-4.9) X10*3/uL Brooks # (Auto) 0.6 (0.1-1.2) X10*3/uL Eos # (Auto) 0.3 (0.0-0.4) X10*3/uL Baso # (Auto) 0.1 (0.0-0.2) X10*3/uL Abs Immat Gran (auto) 0.03 (0.00-0.03) X10*3/uL Absolute Neuts (auto) 3.0 (2.0-8.3) x10*3/uL Absolute Nucleated RBC 0.000 (0.0-0.012) X10*3/uL Nucleated RBC % (auto) 0.0 (0.0-0.2) /100WBC Sodium 144 (135-145) mmol/L Potassium 4.8 D (3.3-5.1) mmol/L Chloride 108 (96-108) mmol/L Carbon Dioxide 27 (22-29) mmol/L Anion Gap 14 (12-20) BUN 9 (9-16) mg/dL Creatinine 0.87 (0.5-1.4) mg/dL Estim Creat Clear Calc 78.4 Estimated GFR > 60 Random Glucose 92 (60-115) mg/dL Calcium 10.2 D (8.4-10.2) mg/dL Total Bilirubin 0.3 (0.0-1.0) mg/dL AST 27 (5-37) U/L ALT 19 (0-40) U/L Alkaline Phosphatase 99 (39-117) U/L Total Protein 8.4 H (6.5-8.0) g/dL Albumin 4.4 (3.5-5.0) g/dL Lipase 21 (8-78) U/L Urine Opiates Screen Not Detected (Not Detect) Urine Fentanyl Screen Not Detected (Not Detect) Ur Barbiturates Screen Not Detected (Not Detect) Ur Phencyclidine Scrn Not Detected (Not Detect) Ur Amphetamines Screen Not Detected (Not Detect) U Benzodiazepines Scrn Not Detected (Not Detect) Urine Cocaine Screen Not Detected (Not Detect) U Marijuana (THC) Screen Not Detected (Not Detect) Ethyl Alcohol 239 mg/dL Discharge Plan Discharge Clinical Impression: Alcohol abuse Patient Disposition: Home, Self-Care Instructions: Abuse of Alcohol (ED) Additional Instructions: Avoid excessive consumption of alcohol Prescriptions: No Action albuterol sulfate 90 mcg/actuation HFA aerosol inhaler 1 puff inhalation Q4H PRN (Reason: Shortness Of Breath Or Wheezing) Eliquis 5 mg tablet 5 mg PO BID Combivent Respimat 20-100 mcg/actuation mist 1 puff inhalation QID PRN (Reason: Shortness Of Breath) levofloxacin 500 mg tablet 500 mg PO DAILY Qty: 3 0RF
[2022-11-01 19:12] LABS: MANUAL DIFF FLAG NO
[2022-11-01 19:13] LABS: Basophils Absolute Auto 0.1 X10*3/uL (0.0-0.2); Basophils Percent Auto 1.6 % (0-2); Eosinophils Absolute Auto 0.3 X10*3/uL (0.0-0.4); Eosinophils Percent Auto 4.1 % (0-4); Hematocrit 39.6 % (42.0-52.0); Hemoglobin 12.8 g/dl (14.0-18.0); Imm Gran Abs Auto 0.03 X10*3/uL (0.00-0.03); Imm Gran Pct Auto 0.5 % (0.0-0.4); Lymphocytes Absolute Auto 2.2 X10*3/uL (1.2-4.9); Lymphocytes Percent Auto 35.9 % (20-40); Mean Corpuscular HGB Conc 32.3 g/dl (31.0-36.0); Mean Corpuscular Hemoglobin 28.3 pg (27.0-33.0); Mean Corpuscular Volume 87.6 fL (80.0-98.0); Mean Platelet Volume 8.8 fL (9.4-12.4); Monocytes Absolute Auto 0.6 X10*3/uL (0.1-1.2); Monocytes Percent Auto 9.7 % (2-11); Neutrophils Percent Auto 48.2 % (45-73); Platelet Count 373 X10*3/uL (160-400); Red Blood Count 4.52 X10*6/uL (4.60-5.80); Red Cell Distribution Width 14.9 % (11.0-16.0); White Blood Count 6.2 X10*3/uL (4.8-10.8)
--- NOTE | 2022-11-01 19:16 | MHC.EDTECH ---
PT CHANGED OVER WITH SECURITY PRESENT. BELONGINGS IN POD LOCKER 11
[2022-11-01 19:25] VITALS: BP 118/76; PULSE 81; RESP 18; O2SAT 94
--- NOTE | 2022-11-01 19:25 | PC.NURSE ---
Assumed care of pt. Pt lying on stretcher, no acute medical or behavioral concerns at this time. Pt maintaining good eye contact.
[2022-11-01 19:27] LABS: Alanine Aminotransferase 19 U/L (0-40); Albumin Level 4.4 g/dL (3.5-5.0); Alkaline Phosphatase 99 U/L (39-117); Anion Gap 14 (12-20); Aspartate Amino Transferase 27 U/L (5-37); Bilirubin Total 0.3 mg/dL (0.0-1.0); Blood Urea Nitrogen 9 mg/dL (9-16); Calcium 10.2 mg/dL (8.4-10.2); Carbon Dioxide 27 mmol/L (22-29); Chloride 108 mmol/L (96-108); Creatinine Clr Calc Pharmacy 78.4; Estimated Glomerular Filt Rate > 60; Ethanol 239 mg/dL; Glucose Random 92 mg/dL (60-115); Lipase 21 U/L (8-78); Potassium 4.8 mmol/L (3.3-5.1); Sodium 144 mmol/L (135-145); Total Protein 8.4 g/dL (6.5-8.0)
--- NOTE | 2022-11-01 19:27 | PC.NURSE ---
Assumed care of pt Pt lying on srtetcher, no acute distress at this time.
[2022-11-01 22:30] LABS: Amphetamine Screen Urine Not Detected (Not Detect); Barbiturates, Urine Not Detected (Not Detect); Benzodiazepines Screen Urine Not Detected (Not Detect); Cannabinoid Screen Urine Not Detected (Not Detect); Cocaine Screen Urine Not Detected (Not Detect); Fentanyl, urine Not Detected (Not Detect); Opiate Screen Urine Not Detected (Not Detect); Phencyclidine Screen Urine Not Detected (Not Detect)
[2022-11-02 02:33] VITALS: BP 105/71; PULSE 112; RESP 17; O2SAT 94
--- NOTE | 2022-11-02 02:55 | PC.NURSE ---
pt sleeping, easily rousable, no acute distress at this time.
[2022-11-02 04:08] VITALS: RESP 12
[2022-11-02 06:00] VITALS: BP 118/76; PULSE 90; RESP 16; TEMP 36.8; O2SAT 96
[2022-11-02 08:24] VITALS: BP 104/67; PULSE 89; RESP 16; TEMP 36.8; O2SAT 94
--- NOTE | 2022-11-02 08:42 | PC.NURSE ---
alert and oriented, respirations even and unlabored. foul odor coming from room to which pt stated he has a wound on his left buttock. provider to bedside to assess. previous admission for cellulitis of the site, discharged to snf. since discharge from snf patient reports no follow up care with wound clinic d/t transportation issues. wound was redressed, packing removed from site. bacitracin, xeroform dressing, and 4x4's applied to site. case management consult ordered to follow up with wound care for pt upon discharge.
--- NOTE | 2022-11-02 10:18 | MHC.CM.ED ---
Addendum entered by Na Greenwood 11/02/22 11:32: Received notification from Amado of Recovery Team that patient is not interested in detox at this time and wants to go home. Nesha FRANCO provided patient with [facility] info. CM will not be able to arrange VNA for patient because he is not homebound. Original Note: Received CM consult for follow up wound care. Care Team assessment is pending for when patient is sober. CM will hold consult until this assessment is completed. Continue to monitor for d/c needs.
[2022-11-02 11:04] VITALS: BP 137/75; PULSE 99; RESP 16; TEMP 36.6; O2SAT 96
--- NOTE | 2022-11-02 11:11 | MHC.RECOVSUP ---
Met with pt in ED13 who is here for CARMEN. Pt informs when he left the hospital he went to a facility to help with his wounds but when he left there 2 days ago he has been drinking daily. Pt informs he has been struggling to take care of his wounds as he can see them and isn't able to get the bandages on right. Pt is not interested in ATS at this time and is going to visit the wound clinic until his wounds clear up and intends to try and get in contact with his son. Pt has no other questions or concerns at this time.
== END 2022-11-02 20:34 | disposition home or self-care (01) ==
PROVIDERS: Physician Assistant; Emergency Provider Internal Medicine; PCP Internal Medicine
DX: F10.10 Alcohol abuse, uncomplicated (principal); Y90.7 Blood alcohol level of 200-239 mg/100 ml; Z71.41 Alcohol abuse counseling and surveillance of alcoholic; F17.210 Nicotine dependence, cigarettes, uncomplicated; Z71.6 Tobacco abuse counseling; Z79.899 Other long term (current) drug therapy
CPT/HCPCS: 36415; 80053; 80307; 83690; 85025; 99284

== ENCOUNTER 2022-11-05 10:30 | Emergency (ER) | payer OTHER, SELFPAY ==
--- NOTE | 2022-11-05 10:35 | ED.ALCOHOL ---
HPI - Alcohol General Chief Complaint: ETOH/Substance Use Stated Complaint: ETOH LOOKING FOR DETOX Time Seen by Provider: 11/05/22 10:31 Source: patient and old records reviewed Mode of arrival: EMS Limitations: no limitations History of Present Illness HPI narrative: 62 yo male with hx of chronic ETOH abuse with frequent presentations asking for detox help, gluteal skin issues and DVT on eliquis stating he wants to go to detox and wants someone to look my ass he has an old wound. He has no trauma, fevers, vomiting. He states wound has been there for a year MD complaint: alcohol dependence and desires rehab Last drink: Just prior to admission Chronic alcohol use: Yes Previous visits for alcohol intoxication: Yes Recent trauma: No Associated symptoms: denies other symptoms Treatments prior to arrival: none Related Data Home Medications Medication Instructions Recorded Confirmed albuterol sulfate 90 mcg/actuation 1 puff inhalation Q4H PRN 08/29/22 10/07/22 aerosol inhaler Shortness Of Breath Or Wheezing apixaban 5 mg tablet (Eliquis) 5 mg PO BID 08/29/22 10/07/22 ipratropium 20 mcg-albuterol 100 1 puff inhalation QID PRN 08/29/22 10/08/22 mcg/actuation mist for inhalation Shortness Of Breath (Combivent Respimat) Previous Rx's Medication Instructions Recorded levofloxacin 500 mg tablet 500 mg PO DAILY #3 tabs 10/14/22 Allergies Allergy/AdvReac Type Severity Reaction Status Date / Time Peanut Butter Allergy Facial Verified 11/05/22 10:45 Swelling raspberry Allergy Facial Verified 11/05/22 10:45 Swelling Review of Systems Review of Systems: Constitutional : No Fever, No Chills ENT/Mouth : No Ear Pain, No Nasal Congestion, No sore throat Eyes: No Eye Pain, No Swelling, No Redness Cardiovascular : No Chest Pain, No SOB Respiratory : No Cough, No Sputum, No Dyspnea Gastrointestinal : No Nausea, No Vomiting, No Diarrhea, No Hematochezia, No Melena Genitourinary : No Dysuria, No Urinary Frequency, No Hematuria Musculoskeletal : No Myalgias Skin : pos Skin Lesions, No rash Neuro : No Weakness, No Numbness, No Paresthesias, No Dizziness, No Headache Psych : positive Anxiety, positive Depression, no SI/HI Heme/Lymph: No Lymphadenopathy Endocrine : No Polyuria, No Polydipsia All other systems reviewed and are negative [facility] Past Medical History Attestation statement: The following information was validated with the patient. Medical History Alcohol dependence Presence of IVC filter Acute and chronic respiratory failure with hypoxia COPD (chronic obstructive pulmonary disease) Alcohol use disorder, severe, dependence Tobacco abuse Subdural hematoma DVT (deep venous thrombosis) COPD (chronic obstructive pulmonary disease) Asthma Neuropathy Alcohol abuse Social History Social History Household Members: None Housing: House Do you presently have visiting nurse or other home services: No Alcohol intake: current Alcohol intake frequency: 3 or more drinks per day Alcohol type: hard liquor Patient Tobacco Use Status: Current everyday Tobacco user Tobacco use type: Cigarette Cigarette Packs Per Day: 1 Cigarettes Per Day: 20.0 e-Cigarette/Vaping Use: Never Used Second Hand Smoke Exposure: No Substance Use Type: Marijuana Advance Directives: Yes Advance Directives on File: Yes Advance Directives Date on File: 03/05/22 service: No Current occupational status: disabled Physical Exam ED Vital Signs: Vital Signs - 24 hr 11/05/22 10:46 Temperature 98 F Pulse Rate 96 Respiratory Rate 16 Blood Pressure 120/74 Pulse Oximetry 95 Oxygen Delivery Method Room Air BMI result Body Mass Index 20.0 Appearance: Alert. Oriented X3. No acute distress. ETOH odor, grumpy Eyes: Pupils equal, round and reactive to light. ENT: Pharynx normal. Neck: Normal inspection. Neck supple. CVS: Normal heart rate and rhythm. Pulses normal. Respiratory: No respiratory distress. Breath sounds normal. Abdomen: Soft and nontender. Buttocks: L gluteas old open deep wound healing edges no discharge, fluctuance, ttp no signs of active infection appears very old Skin: Skin warm and dry. Normal skin color. Normal skin turgor. Extremities: No lower extremity edema. No calf ttp Neuro: Oriented X 3. No motor deficit. No sensory deficit. Course Course Course Narrative: patient possibly eloped per RN team Medical Decision Making Medical Decision Making MDM Narrative: 62 yo male with hx of chronic ETOH abuse, DVT on eliquis, gluteal wound here with c/o wanting detox denies infectious symptoms or trauma. His gluteal wound is old appearing no signs of active infection he denies systemic symptoms - will obtain basic labs and refer to our recovery team Differential Diagnosis Differential Diagnoses: The differential diagnosis associated with the presentation includes ETOH abuse, chronic gluteal wound Admission/Observation Consideration of admission/observation: Escalation of care including admission/observation considered observe until detox found Consult Healthcare Provider Management of the patient was discussed with: Behavioral Health Provider Lab Data MDM Lab Attestation statement: I reviewed the patient's lab results. Independent Historian Clinical information obtained from an independent historian. History obtained from or confirmed by: EMS External Record Review External record reviewed: Inpatient record Social Determinants Patient?s care significantly limited by Social Determinants of Health including: Alcoholism and drug addiction in family and Problems related to primary support group Discharge Plan Discharge Clinical Impression: Alcohol abuse Patient Disposition: Elopement Instructions: Abuse of Alcohol (ED) Prescriptions: No Action albuterol sulfate 90 mcg/actuation HFA aerosol inhaler 1 puff inhalation Q4H PRN (Reason: Shortness Of Breath Or Wheezing) Eliquis 5 mg tablet 5 mg PO BID Combivent Respimat 20-100 mcg/actuation mist 1 puff inhalation QID PRN (Reason: Shortness Of Breath) levofloxacin 500 mg tablet 500 mg PO DAILY Qty: 3 0RF
[2022-11-05 10:41] VITALS: BP 122/70; PULSE 90; O2SAT 98
[2022-11-05 10:46] VITALS: BP 120/74; PULSE 96; RESP 16; TEMP 36.6; O2SAT 95
== END 2022-11-05 12:15 | disposition left against medical advice (07) ==
PROVIDERS: Emergency Provider Emergency Medicine
DX: F10.10 Alcohol abuse, uncomplicated (principal); Y90.9 Presence of alcohol in blood, level not specified; F17.210 Nicotine dependence, cigarettes, uncomplicated; Z79.01 Long term (current) use of anticoagulants; Z86.718 Personal history of other venous thrombosis and embolism; Z71.6 Tobacco abuse counseling; Z79.899 Other long term (current) drug therapy
CPT/HCPCS: 99282

== ENCOUNTER 2022-11-09 16:35 | Emergency (ER) | payer OTHER, SELFPAY ==
[2022-11-09 16:35] VITALS: BP 107/70; PULSE 92; RESP 18; TEMP 36.5; O2SAT 94; BMI 25.1
[2022-11-09 17:15] LABS: MANUAL DIFF FLAG NO
[2022-11-09 17:29] LABS: Basophils Absolute Auto 0.1 X10*3/uL (0.0-0.2); Basophils Percent Auto 1.3 % (0-2); Eosinophils Absolute Auto 0.1 X10*3/uL (0.0-0.4); Eosinophils Percent Auto 3.6 % (0-4); Hematocrit 38.3 % (42.0-52.0); Hemoglobin 12.7 g/dl (14.0-18.0); Imm Gran Abs Auto 0.02 X10*3/uL (0.00-0.03); Imm Gran Pct Auto 0.5 % (0.0-0.4); Lymphocytes Absolute Auto 1.4 X10*3/uL (1.2-4.9); Lymphocytes Percent Auto 37.2 % (20-40); Mean Corpuscular HGB Conc 33.2 g/dl (31.0-36.0); Mean Corpuscular Volume 87.4 fL (80.0-98.0); Mean Platelet Volume 9.8 fL (9.4-12.4); Monocytes Absolute Auto 0.3 X10*3/uL (0.1-1.2); Monocytes Percent Auto 8.8 % (2-11); Neutrophils Absolute Auto 1.9 x10*3/uL (2.0-8.3); Neutrophils Percent Auto 48.6 % (45-73); Platelet Count 181 X10*3/uL (160-400); Red Blood Count 4.38 X10*6/uL (4.60-5.80); Red Cell Distribution Width 15.2 % (11.0-16.0); White Blood Count 3.9 X10*3/uL (4.8-10.8)
--- NOTE | 2022-11-09 17:29 | ED.ALCOHOL ---
HPI - Alcohol General Chief Complaint: ETOH/Substance Use Stated Complaint: ETOH Source: patient and EMS Mode of arrival: EMS Limitations: no limitations History of Present Illness HPI narrative: 60-year-old male with history of alcohol abuse, reported liver disorder and decubitus ulcer presents for evaluation for detox. Patient reports drinking 2 pt Southern Comfort and a sleeve of nips daily. He denies any drug use. He denies any suicidal or homicidal ideation. He reports having no relationship with his son as relates to his alcohol use. He reports seeing at home all day long watching Dr. Beverly on television. The symptoms appear to be worsened by alcohol ingestion. There is no relieving features. Patient reports the symptoms as being severe. Related Data Home Medications Medication Instructions Recorded Confirmed albuterol sulfate 90 mcg/actuation 1 puff inhalation Q4H PRN 08/29/22 10/07/22 aerosol inhaler Shortness Of Breath Or Wheezing apixaban 5 mg tablet (Eliquis) 5 mg PO BID 08/29/22 10/07/22 ipratropium 20 mcg-albuterol 100 1 puff inhalation QID PRN 08/29/22 10/08/22 mcg/actuation mist for inhalation Shortness Of Breath (Combivent Respimat) Previous Rx's Medication Instructions Recorded levofloxacin 500 mg tablet 500 mg PO DAILY #3 tabs 10/14/22 doxycycline monohydrate 100 mg 100 mg PO BID #20 tabs 11/09/22 tablet Allergies Allergy/AdvReac Type Severity Reaction Status Date / Time Peanut Butter Allergy Facial Verified 11/05/22 10:45 Swelling raspberry Allergy Facial Verified 11/05/22 10:45 Swelling Review of Systems Review of Systems: CONSTITUTIONAL: Denies weight loss, fever and chills. HEENT: Denies changes in vision and hearing. RESPIRATORY: Denies SOB and cough. CV: Denies palpitations no CP. GI: Denies abdominal pain, nausea, vomiting and diarrhea. : Denies dysuria and urinary frequency. MSK: Denies myalgia and joint pain. SKIN: Denies rash and pruritus. NEUROLOGICAL: Denies headache and syncope. PSYCHIATRIC: Denies recent changes in mood. Denies anxiety and depression. All other ROS are negative unless in HPI PMFSH Past Medical History Medical History Alcohol dependence Presence of IVC filter Acute and chronic respiratory failure with hypoxia COPD (chronic obstructive pulmonary disease) Alcohol use disorder, severe, dependence Tobacco abuse Subdural hematoma DVT (deep venous thrombosis) COPD (chronic obstructive pulmonary disease) Asthma Neuropathy Alcohol abuse Social History Social History Household Members: None Housing: House Do you presently have visiting nurse or other home services: No Alcohol intake: current Alcohol intake frequency: 3 or more drinks per day Alcohol type: hard liquor Patient Tobacco Use Status: Current everyday Tobacco user Tobacco use type: Cigarette Cigarette Packs Per Day: 1 Cigarettes Per Day: 20.0 e-Cigarette/Vaping Use: Never Used Second Hand Smoke Exposure: No Substance Use Type: Marijuana Advance Directives: Yes Advance Directives on File: Yes Advance Directives Date on File: 03/05/22 service: No Current occupational status: disabled Physical Exam ED Vital Signs: Vital Signs - 24 hr 11/09/22 16:35 Temperature 97.7 F Pulse Rate 92 Respiratory Rate 18 Blood Pressure 107/70 Pulse Oximetry 94 Oxygen Delivery Method Room Air BMI result Body Mass Index 25.1 GEN: Well developed, no acute distress, alert, oriented HEENT: Normocephalic, atraumatic, normal external ears, nose appears normal, no oropharyngeal edema or exudates Eyes: Normal to appearance Neck: Supple, no lymphadenopathy Respiratory: Talks in complete sentences, no respiratory distress, clear to auscultation bilaterally Cardiovascular: Regular rate and rhythm, no murmurs rubs or gallops Abdomen: Soft, nontender, nondistended, no guarding, no rebound Back: No CVA tenderness Extremities: No clubbing cyanosis or edema Neurologic: No focal neurologic deficits, cranial nerves 2-12 intact, strength is 5/5 bilaterally Skin: Decubitus ulcer on left buttock, stage IV, surrounding erythema consistent with cellulitis. Course Course Course Narrative: Patient is on laboratory intoxicated. He is walking with steady gait. He wishes to be discharged at this time. There are no detox beds available. At this point, he will be taking a cab home and I believe he is safe for discharge. He is aware to make sure he is remains careful and uses cane for ambulation. O put the patient on doxycycline as well. Medical Decision Making Medical Decision Making MDM Narrative: Patient presents requesting alcohol detox. He denies any SI or HI. He is tearful and sad about his relationship with his son. His last drink was earlier today. He denies any active alcohol withdrawal symptoms. He does report a possible history of alcohol withdrawal seizure. Examination revealed no evidence of withdrawal. Does have a stage IV sacral decubitus ulcer with surrounding erythema consistent with cellulitis. Will medically clear patient in asked active services to evaluate the patient. Differential Diagnosis Differential Diagnoses: The differential diagnosis associated with the presentation includes (Depression, anxiety, alcohol abuse, alcohol withdrawal, substance abuse.) Admission/Observation Consideration of admission/observation: Escalation of care including admission/observation considered Lab Data MDM Lab Attestation statement: I reviewed the patient's lab results. 11/09/22 17:11 11/09/22 17:11 Labs: Lab Results 11/09/22 Range/Units 17:11 WBC 3.9 L (4.8-10.8) X10*3/uL RBC 4.38 L (4.60-5.80) X10*6/uL Hgb 12.7 L (14.0-18.0) g/dl Hct 38.3 L (42.0-52.0) % MCV 87.4 (80.0-98.0) fL MCH 29.0 (27.0-33.0) pg MCHC 33.2 (31.0-36.0) g/dl RDW 15.2 (11.0-16.0) % Plt Count 181 D (160-400) X10*3/uL MPV 9.8 (9.4-12.4) fL Immature Gran % (Auto) 0.5 H (0.0-0.4) % Neut % (Auto) 48.6 (45-73) % Lymph % (Auto) 37.2 (20-40) % [place] % (Auto) 8.8 (2-11) % Eos % (Auto) 3.6 (0-4) % Baso % (Auto) 1.3 (0-2) % Lymph # (Auto) 1.4 (1.2-4.9) X10*3/uL [place] # (Auto) 0.3 (0.1-1.2) X10*3/uL Eos # (Auto) 0.1 (0.0-0.4) X10*3/uL Baso # (Auto) 0.1 (0.0-0.2) X10*3/uL Abs Immat Gran (auto) 0.02 (0.00-0.03) X10*3/uL Absolute Neuts (auto) 1.9 L (2.0-8.3) x10*3/uL Absolute Nucleated RBC 0.000 (0.0-0.012) X10*3/uL Nucleated RBC % (auto) 0.0 (0.0-0.2) /100WBC Sodium 143 (135-145) mmol/L Potassium 3.7 D (3.3-5.1) mmol/L Chloride 102 (96-108) mmol/L Carbon Dioxide 27 (22-29) mmol/L Anion Gap 18 (12-20) BUN 9 (9-16) mg/dL Creatinine 0.78 (0.5-1.4) mg/dL Estim Creat Clear Calc 91.8 Estimated GFR > 60 Random Glucose 138 H (60-115) mg/dL Calcium 9.3 D (8.4-10.2) mg/dL Total Bilirubin 0.5 (0.0-1.0) mg/dL AST 32 (5-37) U/L ALT 13 (0-40) U/L Alkaline Phosphatase 111 (39-117) U/L Total Protein 7.8 (6.5-8.0) g/dL Albumin 4.1 (3.5-5.0) g/dL Ethyl Alcohol 350 H* mg/dL Independent Historian Clinical information obtained from an independent historian. History obtained from or confirmed by: EMS Prescription Management I considered prescription management with: Antibiotic Medications Administered Discontinued Medications Generic Name Dose Route Start Last Admin Trade Name Freq PRN Reason Stop Dose Admin Doxycycline Monohydrate 100 mg 11/09/22 16:47 11/09/22 17:41 Doxycycline Monohydrate 100 Mg Capsule PO 11/09/22 16:48 100 mg ONCE ONE Administration Discharge Plan Discharge Clinical Impression: Cellulitis, gluteal, Alcohol abuse, Decubitus ulcer of buttock, stage 4 Patient Disposition: Left W/O Completing Treatment Instructions: Cellulitis (ED), Abuse of Alcohol (DC), Pressure Injury (ED) Prescriptions: New doxycycline monohydrate 100 mg tablet 100 mg PO BID Qty: 20 0RF No Action albuterol sulfate 90 mcg/actuation HFA aerosol inhaler 1 puff inhalation Q4H PRN (Reason: Shortness Of Breath Or Wheezing) Eliquis 5 mg tablet 5 mg PO BID Combivent Respimat 20-100 mcg/actuation mist 1 puff inhalation QID PRN (Reason: Shortness Of Breath) levofloxacin 500 mg tablet 500 mg PO DAILY Qty: 3 0RF Referrals: [facility] [place] Wound Care Management [Provider Group] Discharge Date/Time: 11/09/22 18:00
[2022-11-09 17:32] LABS: Alanine Aminotransferase 13 U/L (0-40); Albumin Level 4.1 g/dL (3.5-5.0); Alkaline Phosphatase 111 U/L (39-117); Anion Gap 18 (12-20); Aspartate Amino Transferase 32 U/L (5-37); Bilirubin Total 0.5 mg/dL (0.0-1.0); Blood Urea Nitrogen 9 mg/dL (9-16); Calcium 9.3 mg/dL (8.4-10.2); Carbon Dioxide 27 mmol/L (22-29); Chloride 102 mmol/L (96-108); Creatinine Clr Calc Pharmacy 91.8; Estimated Glomerular Filt Rate > 60; Ethanol 350 mg/dL; Glucose Random 138 mg/dL (60-115); Potassium 3.7 mmol/L (3.3-5.1); Sodium 143 mmol/L (135-145); Total Protein 7.8 g/dL (6.5-8.0)
[2022-11-09] MEDS: Doxycycline Monohydrate 100 MG CAPSULE PO (17:41)
--- NOTE | 2022-11-09 17:59 | PC.NURSE ---
pt refusing to stay, stating that the treatment was taking too long. ambulated with steady gait out to waiting room
== END 2022-11-09 18:00 | disposition left against medical advice (07) ==
LOC: HO.ED 17:20
PROVIDERS: Emergency Provider Emergency Medicine
DX: F10.10 Alcohol abuse, uncomplicated (principal); L89.304 Pressure ulcer of unspecified buttock, stage 4; Y90.8 Blood alcohol level of 240 mg/100 ml or more; F17.210 Nicotine dependence, cigarettes, uncomplicated; Z71.6 Tobacco abuse counseling; Z79.899 Other long term (current) drug therapy; Z71.41 Alcohol abuse counseling and surveillance of alcoholic
CPT/HCPCS: 36415; 80053; 80307; 85025; 99283; 99284

== ENCOUNTER 2022-11-10 14:40 | Emergency (ER) | payer OTHER, SELFPAY ==
[2022-11-10 14:59] VITALS: BP 108/79; BP 134/62; PULSE 105; PULSE 80; RESP 20; TEMP 36.7; O2SAT 97; O2SAT 98; BMI 19.9
--- NOTE | 2022-11-10 15:22 | ED.GENADULT ---
HPI - General Adult General Chief complaint: ETOH/Substance Use Stated complaint: ETOH USE,WANTS DETOX PER EMS Time Seen by Provider: 11/10/22 14:42 Source: patient and EMS Mode of arrival: EMS Limitations: other (acute alcohol intoxication) History of Present Illness HPI narrative: 62-year-old male with past medical history significant for alcohol dependence presents for evaluation of ?alcohol abuse. ? Patient reports that he is a drunk and drinks approximately 2 pt of Southern Comfort daily. He reports that he only had 1 point today and started drinking around 10:00 a.m. in his last drink was just prior to arrival. He states ?nobody cares about me or wants to help me. ? Patient has frequently been seen in his ER for similar complaints He is also requesting ?somebody look at my ass. ? He reports that he was admitted 1 month ago for a wound to his left buttocks. He denies any significant pain but ?there is a hole there that is not supposed to be there. ? The patient denies any fevers, chills or drainage from the wound The patient reports that ?I would like to talk to somebody about mental health. ? He denies any depression or suicidal ideation Related Data Home Medications Medication Instructions Recorded Confirmed albuterol sulfate 90 mcg/actuation 1 puff inhalation Q4H PRN 08/29/22 10/07/22 aerosol inhaler Shortness Of Breath Or Wheezing apixaban 5 mg tablet (Eliquis) 5 mg PO BID 08/29/22 10/07/22 ipratropium 20 mcg-albuterol 100 1 puff inhalation QID PRN 08/29/22 10/08/22 mcg/actuation mist for inhalation Shortness Of Breath (Combivent Respimat) Previous Rx's Medication Instructions Recorded levofloxacin 500 mg tablet 500 mg PO DAILY #3 tabs 10/14/22 doxycycline monohydrate 100 mg 100 mg PO BID #20 tabs 11/09/22 tablet Allergies Allergy/AdvReac Type Severity Reaction Status Date / Time Peanut Butter Allergy Facial Verified 11/05/22 10:45 Swelling raspberry Allergy Facial Verified 11/05/22 10:45 Swelling Review of Systems Constitutional: Constitutional: Denies chills and Denies fever(s) Eyes: Eyes: Denies blurry vision Cardiovascular: Cardiovascular: Denies chest pain and Denies dyspnea Respiratory: Respiratory: Denies cough and Denies dyspnea Gastrointestinal: Gastrointestinal: Denies abdominal pain, Denies nausea and Denies vomiting Musculoskeletal: Musculoskeletal: Denies back pain Integumentary/Breasts: Skin/Breast: Reports wounds (Left buttocks) Psychiatric: Psychiatric: Denies depression PMFSH Past Medical History Medical History Alcohol dependence Presence of IVC filter Acute and chronic respiratory failure with hypoxia COPD (chronic obstructive pulmonary disease) Alcohol use disorder, severe, dependence Tobacco abuse Subdural hematoma DVT (deep venous thrombosis) COPD (chronic obstructive pulmonary disease) Asthma Neuropathy Alcohol abuse Social History Social History Household Members: None Housing: House Do you presently have visiting nurse or other home services: No Alcohol intake: current Alcohol intake frequency: 3 or more drinks per day Alcohol type: hard liquor Patient Tobacco Use Status: Current everyday Tobacco user Tobacco use type: Cigarette Cigarette Packs Per Day: 1 Cigarettes Per Day: 20.0 Smoked in Last 30 Days: Yes e-Cigarette/Vaping Use: Never Used Second Hand Smoke Exposure: No Use of substances other than those prescribed or required for medical reasons: No Substance Use Type: Marijuana Advance Directives: Yes Advance Directives on File: Yes Advance Directives Date on File: 03/05/22 service: No Current occupational status: disabled Physical Exam ED Vital Signs: Vital Signs - 24 hr 11/10/22 14:59 Temperature 98.0 F Pulse Rate 105 H Respiratory Rate 20 Blood Pressure 108/79 Pulse Oximetry 97 Oxygen Delivery Method Room Air BMI result Body Mass Index 19.9 Const General: healthy appearing, comfortable, no acute distress, alert and awake Nutritional Appearance: well nourished Orientation/consciousness: patient oriented x3 HENMT Head: Yes normocephalic and Yes atraumatic Eyes Eyelids: Yes eyelids normal Conjunctivae: conjunctivae normal Sclerae: sclerae normal Corneas: corneas normal Pupils: Equal, round and reactive pupils present EOM: EOMs intact bilaterally Neck Neck: Yes full ROM Resp Effort & Inspection: normal respiratory effort, able to speak in complete sentences and not labored Skin Other: Patient has a left buttocks wound that appears to be healing well. There is granulomatous tissue around the edges. No beefy red erythema or fluctuance. No tenderness to palpation. General skin exam: elasticity normal Neuro General: patient oriented x3 Cranial nerves: Yes Equal, round and reactive pupils present and Yes Bilaterally intact EOM present Cognition (Neuro): normal cognition Extrem Other: Moving all extremities well without any obvious deformities Course Reevaluation(s) Reevaluation #1: Discussed with the care team who reported there are no detox beds available. The patient is stable for discharge with outpatient detox resources once medically safe to do so. Patient's alcohol is elevated to 326 Time: 17:24 Reevaluation #2: The patient was provided outpatient resources. He reports that he has a safe place to go back home he will try to get a cab to take him back home Time: 18:28 Medical Decision Making Medical Decision Making [facility] Narrative: 62-year-old male presents for evaluation of alcohol abuse and a gluteal wound. Will check basic labs, ETOH level. The patient would like to speak to the care team but denies depression or suicidal ideation. He is currently not on a Section 12. The patient's gluteal wound does not appear acutely infected there is no obvious abscess. Once medically cleared, the patient be referred to the care team. Differential Diagnosis Differential Diagnoses: The differential diagnosis associated with the presentation includes Alcohol abuse Acute alcohol intoxication Depression Anxiety Gluteal cellulitis Gluteal abscess Lab Data [facility] Lab Attestation statement: I reviewed the patient's lab results. No leukocytosis, the patient has a mild anemia that is actually slightly improved compared to his baseline. Normal platelet count. No electrolyte abnormalities. Normal renal function. Ethyl alcohol elevated to 326. 11/10/22 15:24 11/10/22 15:24 Labs: Lab Results 11/10/22 Range/Units 15:24 WBC 5.9 (4.8-10.8) X10*3/uL RBC 4.36 L (4.60-5.80) X10*6/uL Hgb 12.6 L (14.0-18.0) g/dl Hct 37.4 L (42.0-52.0) % MCV 85.8 (80.0-98.0) fL MCH 28.9 (27.0-33.0) pg MCHC 33.7 (31.0-36.0) g/dl RDW 15.1 (11.0-16.0) % Plt Count 170 (160-400) X10*3/uL MPV 9.4 (9.4-12.4) fL Immature Gran % (Auto) 0.3 (0.0-0.4) % Neut % (Auto) 67.6 (45-73) % Lymph % (Auto) 21.8 (20-40) % [place] % (Auto) 8.9 (2-11) % Eos % (Auto) 0.5 (0-4) % Baso % (Auto) 0.9 (0-2) % Lymph # (Auto) 1.3 (1.2-4.9) X10*3/uL [place] # (Auto) 0.5 (0.1-1.2) X10*3/uL Eos # (Auto) 0.0 (0.0-0.4) X10*3/uL Baso # (Auto) 0.1 (0.0-0.2) X10*3/uL Abs Immat Gran (auto) 0.02 (0.00-0.03) X10*3/uL Absolute Neuts (auto) 4.0 (2.0-8.3) x10*3/uL Absolute Nucleated RBC 0.000 (0.0-0.012) X10*3/uL Nucleated RBC % (auto) 0.0 (0.0-0.2) /100WBC Sodium 140 (135-145) mmol/L Potassium 3.6 (3.3-5.1) mmol/L Chloride 100 (96-108) mmol/L Carbon Dioxide 23 (22-29) mmol/L Anion Gap 21 H (12-20) BUN 10 (9-16) mg/dL Creatinine 0.71 (0.5-1.4) mg/dL Estim Creat Clear Calc 93.4 Estimated GFR > 60 Random Glucose 97 (60-115) mg/dL Calcium 9.3 (8.4-10.2) mg/dL Total Bilirubin 0.7 (0.0-1.0) mg/dL AST 33 (5-37) U/L ALT 14 (0-40) U/L Alkaline Phosphatase 112 (39-117) U/L Total Protein 7.9 (6.5-8.0) g/dL Albumin 4.2 (3.5-5.0) g/dL Lipase 18 (8-78) U/L Salicylates < 5.0 L (15-30) mg/dL Acetaminophen < 17 (<30) mcg/mL Ethyl Alcohol 326 H* mg/dL Discharge Plan Discharge Clinical Impression: Alcohol abuse Patient Disposition: Home, Self-Care Instructions: Abuse of Alcohol (ED) Additional Instructions: Avoid excessive consumption of alcohol. Follow-up with detox resources provided by calling tomorrow morning to see if any beds are available for you Return for new or worsening symptoms Prescriptions: No Action albuterol sulfate 90 mcg/actuation HFA aerosol inhaler 1 puff inhalation Q4H PRN (Reason: Shortness Of Breath Or Wheezing) Eliquis 5 mg tablet 5 mg PO BID Combivent Respimat 20-100 mcg/actuation mist 1 puff inhalation QID PRN (Reason: Shortness Of Breath) levofloxacin 500 mg tablet 500 mg PO DAILY Qty: 3 0RF doxycycline monohydrate 100 mg tablet 100 mg PO BID Qty: 20 0RF
[2022-11-10 15:33] LABS: MANUAL DIFF FLAG NO
[2022-11-10 15:34] LABS: Basophils Absolute Auto 0.1 X10*3/uL (0.0-0.2); Basophils Percent Auto 0.9 % (0-2); Eosinophils Percent Auto 0.5 % (0-4); Hematocrit 37.4 % (42.0-52.0); Hemoglobin 12.6 g/dl (14.0-18.0); Imm Gran Abs Auto 0.02 X10*3/uL (0.00-0.03); Imm Gran Pct Auto 0.3 % (0.0-0.4); Lymphocytes Absolute Auto 1.3 X10*3/uL (1.2-4.9); Lymphocytes Percent Auto 21.8 % (20-40); Mean Corpuscular HGB Conc 33.7 g/dl (31.0-36.0); Mean Corpuscular Hemoglobin 28.9 pg (27.0-33.0); Mean Corpuscular Volume 85.8 fL (80.0-98.0); Mean Platelet Volume 9.4 fL (9.4-12.4); Monocytes Absolute Auto 0.5 X10*3/uL (0.1-1.2); Monocytes Percent Auto 8.9 % (2-11); Neutrophils Percent Auto 67.6 % (45-73); Platelet Count 170 X10*3/uL (160-400); Red Blood Count 4.36 X10*6/uL (4.60-5.80); Red Cell Distribution Width 15.1 % (11.0-16.0); White Blood Count 5.9 X10*3/uL (4.8-10.8)
[2022-11-10 15:48] LABS: Acetaminophen LAB < 17 mcg/mL (<30); Alanine Aminotransferase 14 U/L (0-40); Albumin Level 4.2 g/dL (3.5-5.0); Alkaline Phosphatase 112 U/L (39-117); Anion Gap 21 (12-20); Aspartate Amino Transferase 33 U/L (5-37); Bilirubin Total 0.7 mg/dL (0.0-1.0); Blood Urea Nitrogen 10 mg/dL (9-16); Calcium 9.3 mg/dL (8.4-10.2); Carbon Dioxide 23 mmol/L (22-29); Chloride 100 mmol/L (96-108); Creatinine Clr Calc Pharmacy 93.4; Estimated Glomerular Filt Rate > 60; Ethanol 326 mg/dL; Glucose Random 97 mg/dL (60-115); Lipase 18 U/L (8-78); Potassium 3.6 mmol/L (3.3-5.1); Salicylate < 5.0 mg/dL (15-30); Sodium 140 mmol/L (135-145); Total Protein 7.9 g/dL (6.5-8.0)
[2022-11-10 18:35] VITALS: BP 138/87; PULSE 119; RESP 16; O2SAT 93
--- NOTE | 2022-11-10 20:28 | MHC.RECOVSUP ---
? Reason for consult:ETOH o? [place] [place] o? Identified substance use concern:? -? Seeking ATS (detox) -? Support ?? Intervention: o? Community resources provided ? Plan: [facility] ? ? Additional information:[facility] met with this pt and discussed treatment options, there were no beds available this evening, KAREN provided detox numbers and contact information to this pt and informed him that he could walk in to [facility] starting at 8 am tomorrow. I also told Mr. Zavala if he ran into any trouble he could call me for assistance. Provider informed.
== END 2022-11-10 18:46 | disposition home or self-care (01) ==
PROVIDERS: Physician Assistant; Emergency Provider Student in an Organized Health Care Education/Training Program
DX: F10.120 Alcohol abuse with intoxication, uncomplicated (principal); Y90.8 Blood alcohol level of 240 mg/100 ml or more; L02.31 Cutaneous abscess of buttock; F17.210 Nicotine dependence, cigarettes, uncomplicated; F12.90 Cannabis use, unspecified, uncomplicated; Z86.718 Personal history of other venous thrombosis and embolism; Z79.899 Other long term (current) drug therapy; Z79.01 Long term (current) use of anticoagulants
CPT/HCPCS: 36415; 80053; 80143; 80179; 80307; 83690; 85025; 99283; 99284

== ENCOUNTER 2022-11-11 16:12 | Emergency (ER) | payer OTHER, SELFPAY ==
[2022-11-11 16:17] VITALS: BP 120/81; PULSE 89; O2SAT 93
[2022-11-11 16:26] VITALS: BP 106/71; PULSE 85; TEMP 36.5; O2SAT 95; BMI 20.5
--- NOTE | 2022-11-11 17:05 | ED_ITS ---
HPI - Alcohol General Chief Complaint: ETOH/Substance Use Stated Complaint: ETOH - seeking detox Time Seen by Provider: 11/11/22 16:54 Source: patient and EMS Mode of arrival: EMS Limitations: other (Alcohol intoxication) History of Present Illness HPI narrative: Patient is a 62-year-old male presents emergency department via EMS ordering he has been drinking heavily and would like some help , when asked specifically what he is looking for help with he states detox . He states that he drank a pt of [employer] at approximately 10 or 11:00 o'clock this morning. Patient has been to this emergency department recently multiple times with similar concerns. Of note he was seen yesterday and the day prior and was provided with outpatient resources for detox both times. When asked whether he has contacted any of these detox facilities he states ?I bailed out , reporting that he did not call any. When asked if he has any other concerns he states that he has not eaten today would like something the eat other than a turkey sandwich . Related Data Home Medications Medication Instructions Recorded Confirmed albuterol sulfate 90 mcg/actuation 1 puff inhalation Q4H PRN 08/29/22 10/07/22 aerosol inhaler Shortness Of Breath Or Wheezing apixaban 5 mg tablet (Eliquis) 5 mg PO BID 08/29/22 10/07/22 ipratropium 20 mcg-albuterol 100 1 puff inhalation QID PRN 08/29/22 10/08/22 mcg/actuation mist for inhalation Shortness Of Breath (Combivent Respimat) Previous Rx's Medication Instructions Recorded levofloxacin 500 mg tablet 500 mg PO DAILY #3 tabs 10/14/22 doxycycline monohydrate 100 mg 100 mg PO BID #20 tabs 11/09/22 tablet Allergies Allergy/AdvReac Type Severity Reaction Status Date / Time Peanut Butter Allergy Facial Verified 11/05/22 10:45 Swelling raspberry Allergy Facial Verified 11/05/22 10:45 Swelling Review of Systems 2 Review of Systems: Constitutional : No Fever, No Chills ENT/Mouth : No Ear Pain, No Nasal Congestion, No sore throat Eyes: No Eye Pain, No Swelling, No Redness Cardiovascular : No Chest Pain, No SOB Respiratory : No Cough, No Sputum, No Dyspnea Gastrointestinal : No Nausea, No Vomiting, No Diarrhea, No Hematochezia, No Melena Genitourinary : No Dysuria, No Urinary Frequency, No Hematuria Musculoskeletal : No Myalgias Skin : No Skin Lesions, No rash Neuro : No Weakness, No Numbness, No Paresthesias, No Dizziness, No Headache Psych : No Anxiety, no Depression, no SI/HI Heme/Lymph: No Lymphadenopathy Endocrine : No Polyuria, No Polydipsia Yes all other systems are reviewed and are negative PMFSH Past Medical History Attestation statement: The following information was validated with the patient. Source: old records reviewed Medical History Alcohol dependence Presence of IVC filter Acute and chronic respiratory failure with hypoxia COPD (chronic obstructive pulmonary disease) Alcohol use disorder, severe, dependence Tobacco abuse Subdural hematoma DVT (deep venous thrombosis) COPD (chronic obstructive pulmonary disease) Asthma Neuropathy Alcohol abuse Social History Social History Household Members: None Housing: House Do you presently have visiting nurse or other home services: No Alcohol intake: current Alcohol intake frequency: 3 or more drinks per day Alcohol type: hard liquor Patient Tobacco Use Status: Current everyday Tobacco user Tobacco use type: Cigarette Cigarette Packs Per Day: 1 Cigarettes Per Day: 20.0 Smoked in Last 30 Days: Yes e-Cigarette/Vaping Use: Never Used Second Hand Smoke Exposure: No Use of substances other than those prescribed or required for medical reasons: Unknown Substance Use Type: Marijuana Advance Directives: Yes Advance Directives on File: Yes Advance Directives Date on File: 03/05/22 service: No Current occupational status: disabled Physical Exam ED Vital Signs: Vital Signs - 24 hr 11/11/22 16:26 11/11/22 17:37 Temperature 97.7 F 97.2 F Pulse Rate 85 62 Respiratory Rate 16 Blood Pressure 106/71 122/77 Pulse Oximetry 95 98 Oxygen Delivery Method Room Air Room Air BMI result Body Mass Index 20.5 Appearance: Alert.?Oriented to person, place and time. No acute distress.?Normal affect. Eyes: Pupils equal, round and reactive to light.? ENT: Pharynx normal.?? Neck: Normal inspection.? Neck supple.?? CVS: Heart sounds normal. Normal heart rate and rhythm.? Pulses normal.?? Respiratory: No respiratory distress.? Lung sounds clear to auscultation bilaterally?? Abdomen: Soft and non-tender. Skin: Skin warm and dry.? ? Extremities: No lower extremity edema.? Neuro: Moves all extremities spontaneously. Sensation intact bilaterally. CN II- XII intact. No focal neuro deficits. Course Reevaluation(s) Reevaluation #1: Patient left without completing treatment, he was ambulatory with a steady gait, speaking clear full sentences. Advised by nursing staff that patient have called a cab for transportation home and you will from the emergency department despite being advised to remain in the emergency department until sobriety Time: 18:30 Medical Decision Making Medical Decision Making [facility] Narrative: Patient is a 62-year-old male who presents emergency department requesting assistance with detox from alcohol. Physical examination is benign. His only physical complaint at this time is hunger, patient was provided with a sandwich and something to drink. He denies suicidal or homicidal ideations, he would however like assistance with detox, will consult care team for assistance with this. Plan to obtain basic labs and ETOH level. Differential Diagnosis Differential Diagnoses: The differential diagnosis associated with the presentation includes (Alcohol abuse, acute alcohol intoxication, depression, anxiety) Admission/Observation Consideration of admission/observation: Escalation of care including admission/observation considered Consult Healthcare Provider Management of the patient was discussed with: Behavioral Health Provider (CARE team) Lab Data [facility] Lab Attestation statement: I reviewed the patient's lab results. 11/11/22 17:32 11/11/22 17:32 Labs: Lab Results 11/11/22 Range/Units 17:32 WBC 3.7 L (4.8-10.8) X10*3/uL RBC 4.44 L (4.60-5.80) X10*6/uL Hgb 12.6 L (14.0-18.0) g/dl Hct 38.7 L (42.0-52.0) % MCV 87.2 (80.0-98.0) fL MCH 28.4 (27.0-33.0) pg MCHC 32.6 (31.0-36.0) g/dl RDW 15.5 (11.0-16.0) % Plt Count 127 L D (160-400) X10*3/uL MPV 9.8 (9.4-12.4) fL Immature Gran % (Auto) 0.3 (0.0-0.4) % Neut % (Auto) 45.6 (45-73) % Lymph % (Auto) 41.0 H (20-40) % [place] % (Auto) 9.8 (2-11) % Eos % (Auto) 2.2 (0-4) % Baso % (Auto) 1.1 (0-2) % Lymph # (Auto) 1.5 (1.2-4.9) X10*3/uL [place] # (Auto) 0.4 (0.1-1.2) X10*3/uL Eos # (Auto) 0.1 (0.0-0.4) X10*3/uL Baso # (Auto) 0.0 (0.0-0.2) X10*3/uL Abs Immat Gran (auto) 0.01 (0.00-0.03) X10*3/uL Absolute Neuts (auto) 1.7 L (2.0-8.3) x10*3/uL Absolute Nucleated RBC 0.000 (0.0-0.012) X10*3/uL Nucleated RBC % (auto) 0.0 (0.0-0.2) /100WBC Sodium 142 (135-145) mmol/L Potassium 4.3 (3.3-5.1) mmol/L Chloride 102 (96-108) mmol/L Carbon Dioxide 26 (22-29) mmol/L Anion Gap 18 (12-20) BUN 10 (9-16) mg/dL Creatinine 0.72 (0.5-1.4) mg/dL Estim Creat Clear Calc 92.1 Estimated GFR > 60 Random Glucose 87 (60-115) mg/dL Calcium 9.4 (8.4-10.2) mg/dL Ethyl Alcohol 322 H* mg/dL Independent Historian Clinical information obtained from an independent historian. History obtained from or confirmed by: EMS External Record Review External record reviewed: Outpatient record Discharge Plan Discharge Clinical Impression: Alcoholic intoxication Patient Disposition: Elopement Prescriptions: No Action albuterol sulfate 90 mcg/actuation HFA aerosol inhaler 1 puff inhalation Q4H PRN (Reason: Shortness Of Breath Or Wheezing) Eliquis 5 mg tablet 5 mg PO BID Combivent Respimat 20-100 mcg/actuation mist 1 puff inhalation QID PRN (Reason: Shortness Of Breath) levofloxacin 500 mg tablet 500 mg PO DAILY Qty: 3 0RF doxycycline monohydrate 100 mg tablet 100 mg PO BID Qty: 20 0RF Stand Alone Forms: Against Medical Advice Discharge Date/Time: 11/11/22 18:30
[2022-11-11 17:37] VITALS: BP 122/77; PULSE 62; RESP 16; TEMP 36.2; O2SAT 98
[2022-11-11 17:38] LABS: MANUAL DIFF FLAG NO
[2022-11-11 17:41] LABS: Basophils Percent Auto 1.1 % (0-2); Eosinophils Absolute Auto 0.1 X10*3/uL (0.0-0.4); Eosinophils Percent Auto 2.2 % (0-4); Hematocrit 38.7 % (42.0-52.0); Hemoglobin 12.6 g/dl (14.0-18.0); Imm Gran Abs Auto 0.01 X10*3/uL (0.00-0.03); Imm Gran Pct Auto 0.3 % (0.0-0.4); Lymphocytes Absolute Auto 1.5 X10*3/uL (1.2-4.9); Mean Corpuscular HGB Conc 32.6 g/dl (31.0-36.0); Mean Corpuscular Hemoglobin 28.4 pg (27.0-33.0); Mean Corpuscular Volume 87.2 fL (80.0-98.0); Mean Platelet Volume 9.8 fL (9.4-12.4); Monocytes Absolute Auto 0.4 X10*3/uL (0.1-1.2); Monocytes Percent Auto 9.8 % (2-11); Neutrophils Absolute Auto 1.7 x10*3/uL (2.0-8.3); Neutrophils Percent Auto 45.6 % (45-73); Platelet Count 127 X10*3/uL (160-400); Red Blood Count 4.44 X10*6/uL (4.60-5.80); Red Cell Distribution Width 15.5 % (11.0-16.0); White Blood Count 3.7 X10*3/uL (4.8-10.8)
[2022-11-11 17:53] LABS: Anion Gap 18 (12-20); Blood Urea Nitrogen 10 mg/dL (9-16); Calcium 9.4 mg/dL (8.4-10.2); Carbon Dioxide 26 mmol/L (22-29); Chloride 102 mmol/L (96-108); Creatinine Clr Calc Pharmacy 92.1; Estimated Glomerular Filt Rate > 60; Ethanol 322 mg/dL; Glucose Random 87 mg/dL (60-115); Potassium 4.3 mmol/L (3.3-5.1); Sodium 142 mmol/L (135-145)
--- NOTE | 2022-11-11 18:27 | PC.NURSE ---
Pt standing, arguing with staff, stating he wants to get in a [employer] cab and go home. argumentative, difficult to redirect.
--- NOTE | 2022-11-11 18:29 | PC.NURSE ---
Pt ambulatory to exit. ARNOLD garcia aware.
--- NOTE | 2022-11-11 19:16 | MHC.RECOVSUP ---
Met with pt in ED6[facility] who is here for CARMEN. Pt informs he is still struggling with the wound on his backside and has not been going to the wound clinic. Pt is agitated and decided to leave now.
== END 2022-11-11 18:30 | disposition left against medical advice (07) ==
PROVIDERS: Nurse Practitioner Family; Emergency Provider Student in an Organized Health Care Education/Training Program
DX: F10.129 Alcohol abuse with intoxication, unspecified (principal); Y90.8 Blood alcohol level of 240 mg/100 ml or more; F17.210 Nicotine dependence, cigarettes, uncomplicated; Z71.6 Tobacco abuse counseling; Z79.899 Other long term (current) drug therapy
CPT/HCPCS: 36415; 80048; 80307; 85025; 99283; 99284

== ENCOUNTER 2022-11-13 19:17 | Emergency (ER) | payer OTHER, SELFPAY ==
[2022-11-13 19:25] VITALS: BP 113/70; PULSE 90; O2SAT 95
[2022-11-13 19:41] VITALS: BP 105/73; PULSE 79; RESP 17; TEMP 36.7; O2SAT 94
--- NOTE | 2022-11-13 19:42 | MHC.EDTECH ---
This tech assumed care of this pt upon arrival. Vital signs completed pt request something to drink. Pt resting quietly at the moment
[2022-11-13 19:58] VITALS: BP 105/73; PULSE 79; RESP 18; TEMP 36.7; O2SAT 94; BMI 21.3
--- NOTE | 2022-11-13 21:11 | ED_ITS ---
HPI - Alcohol General Chief Complaint: ETOH/Substance Use Stated Complaint: ETOH Time Seen by Provider: 11/13/22 20:22 History of Present Illness HPI narrative: Patient is a 62-year-old male with a history of EtOH multiple visits to the emergency department. Patient again had alcohol. Patient denies any suicidal homicidal ideation. Actually wants to go home. Patient claims he has enough money to take a cab. She denies any nausea vomiting at this. Feels much improved. Feels that he is hungry. Related Data Home Medications Medication Instructions Recorded Confirmed albuterol sulfate 90 mcg/actuation 1 puff inhalation Q4H PRN 08/29/22 10/07/22 aerosol inhaler Shortness Of Breath Or Wheezing apixaban 5 mg tablet (Eliquis) 5 mg PO BID 08/29/22 10/07/22 ipratropium 20 mcg-albuterol 100 1 puff inhalation QID PRN 08/29/22 10/08/22 mcg/actuation mist for inhalation Shortness Of Breath (Combivent Respimat) Previous Rx's Medication Instructions Recorded levofloxacin 500 mg tablet 500 mg PO DAILY #3 tabs 10/14/22 doxycycline monohydrate 100 mg 100 mg PO BID #20 tabs 11/09/22 tablet Allergies Allergy/AdvReac Type Severity Reaction Status Date / Time Peanut Butter Allergy Facial Verified 11/05/22 10:45 Swelling raspberry Allergy Facial Verified 11/05/22 10:45 Swelling Review of Systems Review of Systems: No fever no chills no diaphoresis PMFSH Past Medical History Attestation statement: The following information was validated with the patient. Medical History Alcohol dependence Presence of IVC filter Acute and chronic respiratory failure with hypoxia COPD (chronic obstructive pulmonary disease) Alcohol use disorder, severe, dependence Tobacco abuse Subdural hematoma DVT (deep venous thrombosis) COPD (chronic obstructive pulmonary disease) Asthma Neuropathy Alcohol abuse Social History Social History Household Members: None Housing: House Do you presently have visiting nurse or other home services: No Alcohol intake: current Alcohol intake frequency: 3 or more drinks per day Alcohol type: hard liquor Patient Tobacco Use Status: Current everyday Tobacco user Tobacco use type: Cigarette Cigarette Packs Per Day: 1 Cigarettes Per Day: 20.0 e-Cigarette/Vaping Use: Never Used Second Hand Smoke Exposure: No Substance Use Type: Marijuana Advance Directives: Yes Advance Directives on File: Yes Advance Directives Date on File: 03/05/22 service: No Current occupational status: disabled Physical Exam ED Vital Signs: Vital Signs - 24 hr 11/13/22 19:41 11/13/22 19:58 Temperature 98.1 F 98.1 F Pulse Rate 79 79 Respiratory Rate 17 18 Blood Pressure 105/73 105/73 Pulse Oximetry 94 94 Oxygen Delivery Method Room Air Room Air BMI result Body Mass Index 21.3 Appearance: Alert. Oriented X3. No acute distress. Eyes: Pupils equal, round and reactive to light. ENT: Pharynx normal. Neck: Normal inspection. Neck supple. No lymph nodes noted. No crepitus CVS: Normal heart rate and rhythm. Pulses normal. Normal S1 and S2 Respiratory: No respiratory distress. Breath sounds normal. No Wheezing. No rales Abdomen: Soft and nontender. No rigidity. No distention. good BS x4 Skin: Skin warm and dry. Normal skin color. Normal skin turgor. Extremities: No lower extremity edema. Neurovascular intact to all extremities. No Lacerations. No Rash Neuro: Oriented X 3. No motor deficit. No sensory deficit. Moving all ex termities. No slurred speech Medical Decision Making Medical Decision Making [facility] Narrative: Patient well appearing no acute distress. Awake alert ambulatory. Did not want detox. Clinically sober. Wants to leave. He has enough money for cab. Patient to be discharged home. In stable condition Lab Data [facility] Lab Attestation statement: I reviewed the patient's lab results. External Record Review External record reviewed: Inpatient record Multiple visits for alcohol abuse. Been seen by substance abuse motor coach tour operator in the past. Been seen by care team in the past. Discharge Plan Discharge Clinical Impression: Alcohol abuse Patient Disposition: Home, Self-Care Instructions: Abuse of Alcohol (DC) Prescriptions: No Action albuterol sulfate 90 mcg/actuation HFA aerosol inhaler 1 puff inhalation Q4H PRN (Reason: Shortness Of Breath Or Wheezing) Eliquis 5 mg tablet 5 mg PO BID Combivent Respimat 20-100 mcg/actuation mist 1 puff inhalation QID PRN (Reason: Shortness Of Breath) levofloxacin 500 mg tablet 500 mg PO DAILY Qty: 3 0RF doxycycline monohydrate 100 mg tablet 100 mg PO BID Qty: 20 0RF Referrals: Physician,Unknown J [Primary Care Provider] - 11/16/22
== END 2022-11-13 21:20 | disposition home or self-care (01) ==
PROVIDERS: Emergency Provider Emergency Medicine Emergency Medical Services
DX: F10.10 Alcohol abuse, uncomplicated (principal); Y90.9 Presence of alcohol in blood, level not specified; F17.210 Nicotine dependence, cigarettes, uncomplicated; Z79.899 Other long term (current) drug therapy
CPT/HCPCS: 99282

== ENCOUNTER 2022-11-14 23:36 | Emergency (ER) | payer OTHER, SELFPAY ==
[2022-11-15 00:18] VITALS: BP 106/70; PULSE 75; RESP 20; TEMP 36.6; O2SAT 92; BMI 21.8
--- NOTE | 2022-11-15 01:35 | ED.ALCOHOL ---
HPI - Alcohol General Chief Complaint: ETOH/Substance Use Stated Complaint: ETOH Time Seen by Provider: 11/15/22 01:26 History of Present Illness HPI narrative: patient is a 62-year-old male with a long history of alcohol abuse. Presented again after drinking. Patient denies any suicidal homicidal ideation. Asked patient if he wants detox. Patient states that he does not want to stop drinking for now. He drank 2 pt of whiskey today patient was seen yesterday as well. Related Data Home Medications Medication Instructions Recorded Confirmed albuterol sulfate 90 mcg/actuation 1 puff inhalation Q4H PRN 08/29/22 10/07/22 aerosol inhaler Shortness Of Breath Or Wheezing apixaban 5 mg tablet (Eliquis) 5 mg PO BID 08/29/22 10/07/22 ipratropium 20 mcg-albuterol 100 1 puff inhalation QID PRN 08/29/22 10/08/22 mcg/actuation mist for inhalation Shortness Of Breath (Combivent Respimat) Previous Rx's Medication Instructions Recorded levofloxacin 500 mg tablet 500 mg PO DAILY #3 tabs 10/14/22 doxycycline monohydrate 100 mg 100 mg PO BID #20 tabs 11/09/22 tablet Allergies Allergy/AdvReac Type Severity Reaction Status Date / Time Peanut Butter Allergy Facial Verified 11/05/22 10:45 Swelling raspberry Allergy Facial Verified 11/05/22 10:45 Swelling Review of Systems Review of Systems: Positive EtOH Yes all other systems are reviewed and are negative PMFSH Past Medical History Attestation statement: The following information was validated with the patient. Medical History Alcohol dependence Presence of IVC filter Acute and chronic respiratory failure with hypoxia COPD (chronic obstructive pulmonary disease) Alcohol use disorder, severe, dependence Tobacco abuse Subdural hematoma DVT (deep venous thrombosis) COPD (chronic obstructive pulmonary disease) Asthma Neuropathy Alcohol abuse Social History Social History Household Members: None Housing: House Do you presently have visiting nurse or other home services: No Alcohol intake: current Alcohol intake frequency: 3 or more drinks per day Alcohol type: hard liquor Patient Tobacco Use Status: Current everyday Tobacco user Tobacco use type: Cigarette Cigarette Packs Per Day: 1 Cigarettes Per Day: 20.0 e-Cigarette/Vaping Use: Never Used Second Hand Smoke Exposure: No Substance Use Type: Marijuana Advance Directives: Yes Advance Directives on File: Yes Advance Directives Date on File: 03/05/22 service: No Current occupational status: disabled Physical Exam ED Vital Signs: Vital Signs - 24 hr 11/15/22 00:18 Temperature 97.8 F Pulse Rate 75 Respiratory Rate 20 Blood Pressure 106/70 Pulse Oximetry 92 Oxygen Delivery Method Room Air BMI result Body Mass Index 21.8 Appearance: Alert. Oriented X3. No acute distress. Eyes: Pupils equal, round and reactive to light. ENT: Pharynx normal. Neck: Normal inspection. Neck supple. No lymph nodes noted. No crepitus CVS: Normal heart rate and rhythm. Pulses normal. Normal S1 and S2 Respiratory: No respiratory distress. Breath sounds normal. No Wheezing. No rales Abdomen: Soft and nontender. No rigidity. No distention. good BS x4 Skin: Skin warm and dry. Normal skin color. Normal skin turgor. Extremities: No lower extremity edema. Neurovascular intact to all extremities. No Lacerations. No Rash Neuro: Oriented X 3. No motor deficit. No sensory deficit. Moving all extermities. No slurred speech Medical Decision Making Medical Decision Making [facility] Narrative: explained to the patient the need to stop drinking. Explained to patient detox and his will to stop goes hand in hand. Patient states understanding. He admits to drinking again today. He denies any trauma. Claims he is compliant with medications. His lab will just check on the . He has multiple labs consistent with ETOH. Will discharge patient home in a.m.. Patient states at this time so want to drink. his belly exam is benign. 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 Differential Diagnosis Differential Diagnoses: The differential diagnosis associated with the presentation includes ETOH intoxication External Record Review patient's previous labs reviewed Discharge Plan Discharge Clinical Impression: Alcohol abuse, Alcoholic intoxication Patient Disposition: Still a Patient Instructions: Alcohol Intoxication (ED) Additional Instructions: please stop drinking alcohol Prescriptions: No Action albuterol sulfate 90 mcg/actuation HFA aerosol inhaler 1 puff inhalation Q4H PRN (Reason: Shortness Of Breath Or Wheezing) Eliquis 5 mg tablet 5 mg PO BID Combivent Respimat 20-100 mcg/actuation mist 1 puff inhalation QID PRN (Reason: Shortness Of Breath) levofloxacin 500 mg tablet 500 mg PO DAILY Qty: 3 0RF doxycycline monohydrate 100 mg tablet 100 mg PO BID Qty: 20 0RF Referrals: Cristhian Delgado MD [Primary Care Provider] - ( please go to detox)
[2022-11-15 06:03] VITALS: BP 96/58; PULSE 95; RESP 16; O2SAT 98
--- NOTE | 2022-11-15 06:49 | PC.NURSE ---
Pt AOx4, discharge instructions understood, pt given detox resources. Pt ambulated to waiting room with cane and steady gait.
== END 2022-11-15 06:50 | disposition home or self-care (01) ==
PROVIDERS: Emergency Provider Emergency Medicine Emergency Medical Services; PCP Internal Medicine
DX: F10.129 Alcohol abuse with intoxication, unspecified (principal); F17.210 Nicotine dependence, cigarettes, uncomplicated; Z71.6 Tobacco abuse counseling; Z79.899 Other long term (current) drug therapy; Y90.9 Presence of alcohol in blood, level not specified
CPT/HCPCS: 99284

== ENCOUNTER 2022-11-21 23:12 | Emergency (ER) | payer OTHER, SELFPAY ==
[2022-11-21 23:15] VITALS: BP 138/70; PULSE 77; O2SAT 98
--- NOTE | 2022-11-21 23:19 | PC.NURSE ---
Security contacted for changeover.
[2022-11-21 23:31] VITALS: BP 108/74; PULSE 106; RESP 16; O2SAT 96; BMI 23.6
--- NOTE | 2022-11-21 23:38 | ED_ITS ---
HPI - Alcohol General Chief Complaint: ETOH/Substance Use Stated Complaint: etoh, per ems Time Seen by Provider: 11/21/22 23:27 Source: patient Mode of arrival: ambulatory Limitations: no limitations History of Present Illness HPI narrative: patient comes to the emergency room complaining of alcohol intoxication. This is patient's 9th visit in 1 month for the same complaint. patient denies any falls, denies SI or HI Related Data Home Medications Medication Instructions Recorded Confirmed albuterol sulfate 90 mcg/actuation 1 puff inhalation Q4H PRN 08/29/22 10/07/22 aerosol inhaler Shortness Of Breath Or Wheezing apixaban 5 mg tablet (Eliquis) 5 mg PO BID 08/29/22 10/07/22 ipratropium 20 mcg-albuterol 100 1 puff inhalation QID PRN 08/29/22 10/08/22 mcg/actuation mist for inhalation Shortness Of Breath (Combivent Respimat) Previous Rx's Medication Instructions Recorded levofloxacin 500 mg tablet 500 mg PO DAILY #3 tabs 10/14/22 doxycycline monohydrate 100 mg 100 mg PO BID #20 tabs 11/09/22 tablet Allergies Allergy/AdvReac Type Severity Reaction Status Date / Time Peanut Butter Allergy Facial Verified 11/21/22 23:17 Swelling raspberry Allergy Facial Verified 11/21/22 23:17 Swelling Review of Systems Review of Systems: Constitutional : No Weight loss, No Fever, No Chills, No Night Sweats, No Fatigue, No Malaise ENT/Mouth : No Hearing loss, No Ear Pain, No Nasal Congestion, No Sinus Pain, No Hoarseness, No sore throat, No Rhinorrhea, No Swallowing Difficulty Eyes: No Eye Pain, No Swelling, No Redness, No Foreign Body, No Discharge, No Vision Changes Cardiovascular : No Chest Pain, No SOB, No Dyspnea on Exertion, No Orthopnea, No Edema, No Palpitations Respiratory : No Cough, No Sputum, No Wheezing, No Smoke Exposure, No Dyspnea Gastrointestinal : No Nausea, No Vomiting, No Diarrhea, No Constipation, No abdominal Pain, No Hematochezia, No Melena Genitourinary : no irregular bleeding, No Dysuria, No Urinary Frequency, No He maturia, No Urinary Incontinence, No Urgency, No Flank Pain, No Urinary Flow Changes, No Hesitancy Musculoskeletal : No joint pain, No Myalgias, No Joint Swelling Skin : No Skin Lesions, No rash Neuro : No Weakness, No Numbness, No Paresthesias, No Loss of Consciousness, No Dizziness, No Headache Psych : No Anxiety/Panic, No Depression, No SI/HI/AH/VH, Requesting help for alcohol Heme/Lymph: No Bruising, No Bleeding,No Lymphadenopathy Endocrine : No Polyuria, No Polydipsia, No Temperature Intolerance [facility] Past Medical History Medical History Alcohol dependence Presence of IVC filter Acute and chronic respiratory failure with hypoxia COPD (chronic obstructive pulmonary disease) Alcohol use disorder, severe, dependence Tobacco abuse Subdural hematoma DVT (deep venous thrombosis) COPD (chronic obstructive pulmonary disease) Asthma Neuropathy Alcohol abuse Social History Social History Household Members: None Housing: House Do you presently have visiting nurse or other home services: No Alcohol intake: current Alcohol intake frequency: 3 or more drinks per day Alcohol type: beer and hard liquor Patient Tobacco Use Status: Current everyday Tobacco user Tobacco use type: Cigarette Cigarette Packs Per Day: 1 Cigarettes Per Day: 20.0 Smoked in Last 30 Days: Yes e-Cigarette/Vaping Use: Never Used Second Hand Smoke Exposure: No Use of substances other than those prescribed or required for medical reasons: No Substance Use Type: Marijuana Advance Directives: Yes Advance Directives on File: Yes Advance Directives Date on File: 03/05/22 service: No Current occupational status: disabled Physical Exam ED Vital Signs: Vital Signs - 24 hr 11/21/22 23:31 11/22/22 01:17 11/22/22 05:54 Temperature 98.4 F Pulse Rate 106 H 86 Respiratory Rate 16 16 17 Blood Pressure 108/74 97/61 Pulse Oximetry 96 94 Oxygen Delivery Method Room Air Room Air BMI result Body Mass Index 23.6 Const Other: Appearance: Alert. Oriented X3. No acute distress. coherent, clinically sober Eyes: Pupils equal, round and reactive to light. ENT: Pharynx normal. Neck: Normal inspection. Neck supple. No lymph nodes noted. No crepitus CVS: Normal heart rate and rhythm. Pulses normal. Normal S1 and S2 Respiratory: No respiratory distress. Breath sounds normal. No Wheezing. No rales Abdomen: Soft and nontender. No rigidity. No distention. Skin: Skin warm and dry. Normal skin color. Normal skin turgor. Extremities: No lower extremity edema. No Lacerations. No Rash Neuro: Oriented X 3. No motor deficit. No sensory deficit. Moving all extremities. No slurred speech. CN 2 through 12 grossly intact, ambulating unassisted with steady gait Psych: calm, cooperative, normal affect Course Course Course Narrative: - patient is clinically sober, ambulating by himself with steady gait. - plan: Metabolized to freedom and discharge - Physician observation started at 23:40 Medical Decision Making Medical Decision Making [facility] Narrative: -patient has been offered multiple times detox, including in other ED visits, patient interested -plan: Metabolize to freedom Differential Diagnosis Differential Diagnoses: The differential diagnosis associated with the presentation includes (Alcohol intoxication, depression, anxiety) Admission/Observation Consideration of admission/observation: Escalation of care including admission/observation considered (Patient is under observation until clinically sober and ready for discharge) Discharge Plan Discharge Clinical Impression: Alcohol abuse Patient Disposition: Home, Self-Care Instructions: Abuse of Alcohol (ED) Additional Instructions: Please follow-up with your primary care physician tomorrow. If you have any worsening or new symptoms, please return to the emergency room or call 911 Prescriptions: No Action albuterol sulfate 90 mcg/actuation HFA aerosol inhaler 1 puff inhalation Q4H PRN (Reason: Shortness Of Breath Or Wheezing) Eliquis 5 mg tablet 5 mg PO BID Combivent Respimat 20-100 mcg/actuation mist 1 puff inhalation QID PRN (Reason: Shortness Of Breath) levofloxacin 500 mg tablet 500 mg PO DAILY Qty: 3 0RF doxycycline monohydrate 100 mg tablet 100 mg PO BID Qty: 20 0RF
[2022-11-22 01:17] VITALS: RESP 16
--- NOTE | 2022-11-22 01:18 | PC.NURSE ---
patient sleeping, respiraitons even and unlabored, skin pwd, no apparent distress at this time
[2022-11-22 05:54] VITALS: BP 97/61; PULSE 86; RESP 17; TEMP 36.9; O2SAT 94
--- NOTE | 2022-11-22 07:03 | PC.NURSE ---
pt currently sleeping at this time. pt currently resting in no apparent distress at the moment. respirations even and unlabored. will assess pt when he wakes up.
--- NOTE | 2022-11-22 09:27 | PC.NURSE ---
pt still currently sleeping at this time. pt resting on stretcher with eyes closed in no apparent distress. respirations even and unlabored.
== END 2022-11-22 11:52 | disposition home or self-care (01) ==
PROVIDERS: Emergency Provider Emergency Medicine; PCP Internal Medicine
DX: F10.20 Alcohol dependence, uncomplicated (principal); Y90.9 Presence of alcohol in blood, level not specified; F17.210 Nicotine dependence, cigarettes, uncomplicated; F12.90 Cannabis use, unspecified, uncomplicated; Z86.718 Personal history of other venous thrombosis and embolism; Z79.01 Long term (current) use of anticoagulants; Z79.899 Other long term (current) drug therapy
CPT/HCPCS: 99284

== ENCOUNTER 2022-12-06 04:11 | Emergency (ER) | payer OTHER, SELFPAY ==
[2022-12-06 04:22] VITALS: BP 115/70; BP 133/72; PULSE 90; PULSE 98; RESP 18; TEMP 36.3; O2SAT 97; O2SAT 98; BMI 19.2
--- NOTE | 2022-12-06 04:27 | MHC.EDTECH ---
Patient arrived by ambulance, vitals were taken and patient ambulated with a steady gait with cane to bathroom and was changed into hospital attire and belonging list completed.
[2022-12-06 04:36] VITALS: BP 133/72; PULSE 98; RESP 18; TEMP 36.3; O2SAT 97
--- NOTE | 2022-12-06 04:49 | ED.GENADULT ---
HPI - General Adult General Chief complaint: ETOH/Substance Use Stated complaint: seeking detox Time Seen by Provider: 12/06/22 04:34 Source: patient Mode of arrival: EMS Limitations: no limitations History of Present Illness HPI narrative: Patient comes to the emergency room seeking detox. Also, patient states that he would like us to take a look at his sacral ulcer. Patient states that she will had debridement back in September for a sacral ulcer. Patient states that he was referred to the [facility] but never follow-up because he is a lazy drunk . Patient denies fever chills. Patient admits to drinking alcohol daily. Related Data Home Medications Medication Instructions Recorded Confirmed albuterol sulfate 90 mcg/actuation 1 puff inhalation Q4H PRN 08/29/22 10/07/22 aerosol inhaler Shortness Of Breath Or Wheezing apixaban 5 mg tablet (Eliquis) 5 mg PO BID 08/29/22 10/07/22 ipratropium 20 mcg-albuterol 100 1 puff inhalation QID PRN 08/29/22 10/08/22 mcg/actuation mist for inhalation Shortness Of Breath (Combivent Respimat) Previous Rx's Medication Instructions Recorded levofloxacin 500 mg tablet 500 mg PO DAILY #3 tabs 10/14/22 doxycycline monohydrate 100 mg 100 mg PO BID #20 tabs 11/09/22 tablet Allergies Allergy/AdvReac Type Severity Reaction Status Date / Time Peanut Butter Allergy Facial Verified 11/21/22 23:17 Swelling raspberry Allergy Facial Verified 11/21/22 23:17 Swelling Review of Systems Review of Systems: Constitutional : No Weight loss, No Fever, No Chills, No Night Sweats, No Fatigue, No Malaise ENT/Mouth : No Hearing loss, No Ear Pain, No Nasal Congestion, No Sinus Pain, No Hoarseness, No sore throat, No Rhinorrhea, No Swallowing Difficulty Eyes: No Eye Pain, No Swelling, No Redness, No Foreign Body, No Discharge, No Vision Changes Cardiovascular : No Chest Pain, No SOB, No Dyspnea on Exertion, No Orthopnea, No Edema, No Palpitations Respiratory : No Cough, No Sputum, No Wheezing, No Smoke Exposure, No Dyspnea Gastrointestinal : No Nausea, No Vomiting, No Diarrhea, No Constipation, No abdominal Pain, No Hematochezia, No Melena Genitourinary : no irregular bleeding, No Dysuria, No Urinary Frequency, No Hematuria, No Urinary Incontinence, No Urgency, No Flank Pain, No Urinary Flow Changes, No Hesitancy Musculoskeletal : No joint pain, No Myalgias, No Joint Swelling Skin : Complaining of sacral ulcer Neuro : No Weakness, No Numbness, No Paresthesias, No Loss of Consciousness, No Dizziness, No Headache Psych : No Anxiety/Panic, No Depression, No SI/HI/AH/VH, admits to alcohol abuse Heme/Lymph: No Bruising, No Bleeding,No Lymphadenopathy Endocrine : No Polyuria, No Polydipsia, No Temperature Intolerance [facility] Past Medical History Medical History Alcohol dependence Presence of IVC filter Acute and chronic respiratory failure with hypoxia COPD (chronic obstructive pulmonary disease) Alcohol use disorder, severe, dependence Tobacco abuse Subdural hematoma DVT (deep venous thrombosis) COPD (chronic obstructive pulmonary disease) Asthma Neuropathy Alcohol abuse Social History Social History Household Members: None Housing: House Do you presently have visiting nurse or other home services: No Alcohol intake: current Alcohol intake frequency: 3 or more drinks per day Alcohol type: hard liquor Patient Tobacco Use Status: Current everyday Tobacco user Tobacco use type: Cigarette Cigarette Packs Per Day: 1 Cigarettes Per Day: 20.0 Smoked in Last 30 Days: Yes e-Cigarette/Vaping Use: Never Used Second Hand Smoke Exposure: No Use of substances other than those prescribed or required for medical reasons: No Substance Use Type: Marijuana Advance Directives: Yes Advance Directives on File: Yes Advance Directives Date on File: 03/05/22 service: No Current occupational status: disabled Physical Exam ED Vital Signs: Vital Signs - 24 hr 12/06/22 04:22 12/06/22 04:36 12/06/22 06:13 Temperature 97.4 F 97.4 F 97.7 F Pulse Rate 98 98 82 Respiratory Rate 18 18 18 Blood Pressure 133/72 133/72 117/61 Pulse Oximetry 97 97 96 Oxygen Delivery Method Room Air Room Air Room Air BMI result Body Mass Index 19.2 Const Other: Appearance: Alert. Oriented X3. No acute distress. Eyes: Pupils equal, round and reactive to light. ENT: Pharynx normal. Neck: Normal inspection. Neck supple. No lymph nodes noted. No crepitus CVS: Normal heart rate and rhythm. Pulses normal. Normal S1 and S2 Respiratory: No respiratory distress. Breath sounds normal. No Wheezing. No rales Abdomen: Soft and nontender. No rigidity. No distention. Skin: Skin warm and dry. Pressure ulcer present, seems to be healing, no cellulitis, no drainage, no foul order Extremities: No lower extremity edema. No Lacerations. No Rash Neuro: Oriented X 3. No motor deficit. No sensory deficit. Moving all extremities. No slurred speech. CN 2 through 12 grossly intact Psych: calm, cooperative, normal affect Course Course Course Narrative: -patient's labs pending Medical Decision Making Medical Decision Making [facility] Narrative: -I discussed the physical exam with the patient, he needs to follow up with Dr. Rondon for wound care. -patient's lactic acid is elevated troponin. This is chronic for the patient likely secondary to alcohol intake. -interpretation of labs, normal white blood cell count, relatively stable ESR, CRP, sepsis not suspected. Antibiotics not indicated however, patient will have to follow up with the Wound Clinic for care of his chronic wound. -patient is medically cleared to be seen by the care team for detox. Patient is well-known to our service, patient usually leaves before the care team assess the same. Patient is not SI HI, patient is not on a Section 12 -signed and given to Dr. Jauregui Differential Diagnosis Differential Diagnoses: The differential diagnosis associated with the presentation includes (But substance abuse, alcohol intoxication) Admission/Observation Consideration of admission/observation: Escalation of care including admission/observation considered (Patient is under observation until cleared by care team. If patient requests to be discharged, patient may be discharged) Lab Data [facility] Lab Attestation statement: I reviewed the patient's lab results. 12/06/22 04:52 12/06/22 04:52 Labs: Lab Results 12/06/22 12/06/22 Range/Units 04:52 04:58 WBC 3.5 L (4.8-10.8) X10*3/uL RBC 4.17 L (4.60-5.80) X10*6/uL Hgb 12.2 L (14.0-18.0) g/dl Hct 36.1 L (42.0-52.0) % MCV 86.6 (80.0-98.0) fL MCH 29.3 (27.0-33.0) pg MCHC 33.8 (31.0-36.0) g/dl RDW 16.7 H (11.0-16.0) % Plt Count 116 L (160-400) X10*3/uL MPV 9.3 L (9.4-12.4) fL Immature Gran % (Auto) 0.3 (0.0-0.4) % Neut % (Auto) 45.8 (45-73) % Lymph % (Auto) 40.3 H (20-40) % [place] % (Auto) 9.9 (2-11) % Eos % (Auto) 2.0 (0-4) % Baso % (Auto) 1.7 (0-2) % Lymph # (Auto) 1.4 (1.2-4.9) X10*3/uL [place] # (Auto) 0.3 (0.1-1.2) X10*3/uL Eos # (Auto) 0.1 (0.0-0.4) X10*3/uL Baso # (Auto) 0.1 (0.0-0.2) X10*3/uL Abs Immat Gran (auto) 0.01 (0.00-0.03) X10*3/uL Absolute Neuts (auto) 1.6 L (2.0-8.3) x10*3/uL Absolute Nucleated RBC 0.000 (0.0-0.012) X10*3/uL Nucleated RBC % (auto) 0.0 (0.0-0.2) /100WBC ESR 19 H (0-15) MM/HR Sodium 138 (135-145) mmol/L Potassium 3.3 D (3.3-5.1) mmol/L Chloride 95 L (96-108) mmol/L Carbon Dioxide 23 (22-29) mmol/L Anion Gap 23 H (12-20) BUN 7 L (9-16) mg/dL Creatinine 0.78 (0.5-1.4) mg/dL Estim Creat Clear Calc 81.8 Estimated GFR > 60 Random Glucose 97 (60-115) mg/dL Lactic Acid 4.9 H* (0.5-2.0) mmol/L Calcium 9.5 (8.4-10.2) mg/dL C-Reactive Protein 0.25 (< or = 0.50) mg/dL Hold Green Top See Note Ethyl Alcohol 309 H* mg/dL Discharge Plan Discharge Clinical Impression: Chronic ulcer of sacral region, Alcohol dependence Patient Disposition: Still a Patient Additional Instructions: Please follow-up with your primary care physician tomorrow. If you have any worsening or new symptoms, please return to the emergency room or call 911 Prescriptions: No Action albuterol sulfate 90 mcg/actuation HFA aerosol inhaler 1 puff inhalation Q4H PRN (Reason: Shortness Of Breath Or Wheezing) Eliquis 5 mg tablet 5 mg PO BID Combivent Respimat 20-100 mcg/actuation mist 1 puff inhalation QID PRN (Reason: Shortness Of Breath) levofloxacin 500 mg tablet 500 mg PO DAILY Qty: 3 0RF doxycycline monohydrate 100 mg tablet 100 mg PO BID Qty: 20 0RF Referrals: Jennifer Rondon MD [Physician] - 12/08/22
[2022-12-06 05:04] LABS: MANUAL DIFF FLAG NO
[2022-12-06 05:05] LABS: Basophils Absolute Auto 0.1 X10*3/uL (0.0-0.2); Basophils Percent Auto 1.7 % (0-2); Eosinophils Absolute Auto 0.1 X10*3/uL (0.0-0.4); Hematocrit 36.1 % (42.0-52.0); Hemoglobin 12.2 g/dl (14.0-18.0); Imm Gran Abs Auto 0.01 X10*3/uL (0.00-0.03); Imm Gran Pct Auto 0.3 % (0.0-0.4); Lymphocytes Absolute Auto 1.4 X10*3/uL (1.2-4.9); Lymphocytes Percent Auto 40.3 % (20-40); Mean Corpuscular HGB Conc 33.8 g/dl (31.0-36.0); Mean Corpuscular Hemoglobin 29.3 pg (27.0-33.0); Mean Corpuscular Volume 86.6 fL (80.0-98.0); Mean Platelet Volume 9.3 fL (9.4-12.4); Monocytes Absolute Auto 0.3 X10*3/uL (0.1-1.2); Monocytes Percent Auto 9.9 % (2-11); Neutrophils Absolute Auto 1.6 x10*3/uL (2.0-8.3); Neutrophils Percent Auto 45.8 % (45-73); Platelet Count 116 X10*3/uL (160-400); Red Blood Count 4.17 X10*6/uL (4.60-5.80); Red Cell Distribution Width 16.7 % (11.0-16.0); White Blood Count 3.5 X10*3/uL (4.8-10.8)
[2022-12-06 05:42] LABS: Erythrocyte Sedimentation Rate 19 MM/HR (0-15)
[2022-12-06 05:44] LABS: Anion Gap 23 (12-20); Blood Urea Nitrogen 7 mg/dL (9-16); C Reactive Protein 0.25 mg/dL (< or = 0.50); Calcium 9.5 mg/dL (8.4-10.2); Carbon Dioxide 23 mmol/L (22-29); Chloride 95 mmol/L (96-108); Creatinine Clr Calc Pharmacy 81.8; Estimated Glomerular Filt Rate > 60; Ethanol 309 mg/dL; Glucose Random 97 mg/dL (60-115); Potassium 3.3 mmol/L (3.3-5.1); Sodium 138 mmol/L (135-145)
[2022-12-06 05:49] LABS: Lactic Acid 4.9 mmol/L (0.5-2.0)
[2022-12-06 06:13] VITALS: BP 117/61; PULSE 82; RESP 18; TEMP 36.5; O2SAT 96
--- NOTE | 2022-12-06 06:14 | MHC.EDTECH ---
Hourly rounds and vitals completed,patient is eating a sandwich and watching TV at this time.
--- NOTE | 2022-12-06 07:35 | PC.NURSE ---
This sql report writer resumed care of patient, he is currently laying in bed complaints of withdraw Pt scoring 10 on CIWA, provider aware. Second lactic sent by tech. Diet order placed at this time.
--- NOTE | 2022-12-06 10:02 | MHC.RECOVRN ---
This advertising writer met with patient, patient SHANIA, reports seeking detox. Pt has been medically cleared. Reviewed plan with patient, patient to follow up from the Community, can present as a walk in to [facility] and/or call facilities and/or access [facility] and patients tissue recovery technician for assistance, recovery resources given to patient and reviewed at bedside. Pt verbalized understanding. Reviewed plan with Linda Jauregui.
== END 2022-12-06 10:04 | disposition home or self-care (01) ==
PROVIDERS: Emergency Provider Emergency Medicine
DX: L98.428 Non-pressure chronic ulcer of back with other specified severity (principal); E87.20 Acidosis, unspecified; F10.229 Alcohol dependence with intoxication, unspecified; F17.210 Nicotine dependence, cigarettes, uncomplicated; Y90.8 Blood alcohol level of 240 mg/100 ml or more; Z71.41 Alcohol abuse counseling and surveillance of alcoholic; Z79.899 Other long term (current) drug therapy; Z71.6 Tobacco abuse counseling
CPT/HCPCS: 36415; 80048; 80307; 83605; 85025; 85652; 86140; 87040; 99284

== ENCOUNTER 2022-12-06 18:15 | Emergency (ER) | payer OTHER, SELFPAY ==
[2022-12-06 18:22] VITALS: BP 109/71; BP 135/80; PULSE 87; PULSE 95; RESP 18; TEMP 36.8; O2SAT 95; O2SAT 99; BMI 20.5
--- NOTE | 2022-12-06 18:40 | MHC.RECOVRN ---
This fiction and nonfiction prose writer reviewed plan of care with Karolyn Robbins ED, RN. When patient is medically cleared and sober, to d/c and follow up from the community in regard to detox and recovery supports.
--- NOTE | 2022-12-06 20:07 | ED.GENADULT ---
HPI - General Adult General Chief complaint: ETOH/Substance Use Stated complaint: ETOH, SI Time Seen by Provider: 12/06/22 19:34 Source: patient, RN notes reviewed and old records reviewed Mode of arrival: EMS Limitations: no limitations History of Present Illness HPI narrative: 62-year-old male presents for evaluation of alcohol abuse The patient presents via EMS The patient left AMA here just prior to 10:00 a.m. this morning He was seeking detox and was told there were no beds available. He reports that he went home and continue drinking about 1 pt of some comfort He states that he is still seeking detox He had apparently reported suicidal ideation to EMS, but he denies this to me. Related Data Home Medications Medication Instructions Recorded Confirmed albuterol sulfate 90 mcg/actuation 1 puff inhalation Q4H PRN 08/29/22 10/07/22 aerosol inhaler Shortness Of Breath Or Wheezing apixaban 5 mg tablet (Eliquis) 5 mg PO BID 08/29/22 10/07/22 ipratropium 20 mcg-albuterol 100 1 puff inhalation QID PRN 08/29/22 10/08/22 mcg/actuation mist for inhalation Shortness Of Breath (Combivent Respimat) Previous Rx's Medication Instructions Recorded levofloxacin 500 mg tablet 500 mg PO DAILY #3 tabs 10/14/22 doxycycline monohydrate 100 mg 100 mg PO BID #20 tabs 11/09/22 tablet Allergies Allergy/AdvReac Type Severity Reaction Status Date / Time Peanut Butter Allergy Facial Verified 11/21/22 23:17 Swelling raspberry Allergy Facial Verified 11/21/22 23:17 Swelling Review of Systems Constitutional: Constitutional: Denies chills, Denies fever(s) and Denies headache(s) Eyes: Eyes: Denies blurry vision ENT: Denies headache(s) Cardiovascular: Cardiovascular: Denies chest pain and Denies dyspnea Respiratory: Respiratory: Denies cough and Denies dyspnea Gastrointestinal: Gastrointestinal: Denies abdominal pain Musculoskeletal: Musculoskeletal: Denies back pain Integumentary/Breasts: Skin/Breast: Denies rash Neurologic: Denies headache(s) Psychiatric: Psychiatric: Denies homicidal ideation and Denies suicidal ideation PMF Past Medical History Medical History Alcohol dependence Presence of IVC filter Acute and chronic respiratory failure with hypoxia COPD (chronic obstructive pulmonary disease) Alcohol use disorder, severe, dependence Tobacco abuse Subdural hematoma DVT (deep venous thrombosis) COPD (chronic obstructive pulmonary disease) Asthma Neuropathy Alcohol abuse Social History Social History Household Members: None Housing: House Do you presently have visiting nurse or other home services: No Alcohol intake: current Alcohol intake frequency: 3 or more drinks per day Alcohol type: hard liquor Patient Tobacco Use Status: Current everyday Tobacco user Tobacco use type: Cigarette Cigarette Packs Per Day: 1 Cigarettes Per Day: 20.0 Smoked in Last 30 Days: Yes e-Cigarette/Vaping Use: Never Used Second Hand Smoke Exposure: No Use of substances other than those prescribed or required for medical reasons: No Substance Use Type: Marijuana Advance Directives: Yes Advance Directives on File: Yes Advance Directives Date on File: 03/05/22 service: No Current occupational status: disabled Physical Exam ED Vital Signs: Vital Signs - 24 hr 12/06/22 18:22 Temperature 98.2 F Pulse Rate 87 Respiratory Rate 18 Blood Pressure 109/71 Pulse Oximetry 95 Oxygen Delivery Method Room Air BMI result Body Mass Index 20.5 Const General: comfortable, no acute distress, alert and awake Nutritional Appearance: well nourished Orientation/consciousness: patient oriented x3 HENMT Head: Yes normocephalic and Yes atraumatic Eyes Eyelids: Yes eyelids normal Conjunctivae: conjunctivae normal Sclerae: sclerae normal Corneas: corneas normal Pupils: Equal, round and reactive pupils present EOM: EOMs intact bilaterally Neck Neck: Yes full ROM Resp Effort & Inspection: normal respiratory effort, able to speak in complete sentences and not labored Cardio Rate: regular rate Rhythm: regular rhythm GI Inspection: No distended Palpation (GI): Soft to palpation, not firm, nontender, no guarding and not rigid Skin General skin exam: no rashes or lesions noted and elasticity normal Neuro General: patient oriented x3 Cranial nerves: Yes Equal, round and reactive pupils present and Yes Bilaterally intact EOM present Cognition (Neuro): normal cognition Extrem Other: Moving all extremities well without any obvious deformities Medical Decision Making Medical Decision Making [facility] Narrative: 62-year-old male presents for evaluation of alcohol abuse seeking detox. He was seen here last night for same and provided with outpatient resources. The patient denies suicidal ideation. The care team reports that there are still no detox beds available. Upon learning this, the patient requested discharge. There are no evidence of withdrawal symptoms. The patient is speaking with clear sensorium, he ambulates with an even gait using his cane Differential Diagnosis Differential Diagnoses: The differential diagnosis associated with the presentation includes Alcohol abuse Acute alcohol intoxication Substance abuse Depression Discharge Plan Discharge Clinical Impression: Alcohol abuse Patient Disposition: Home, Self-Care Instructions: Abuse of Alcohol (ED) Prescriptions: No Action albuterol sulfate 90 mcg/actuation HFA aerosol inhaler 1 puff inhalation Q4H PRN (Reason: Shortness Of Breath Or Wheezing) Eliquis 5 mg tablet 5 mg PO BID Combivent Respimat 20-100 mcg/actuation mist 1 puff inhalation QID PRN (Reason: Shortness Of Breath) levofloxacin 500 mg tablet 500 mg PO DAILY Qty: 3 0RF doxycycline monohydrate 100 mg tablet 100 mg PO BID Qty: 20 0RF
== END 2022-12-06 20:58 | disposition home or self-care (01) ==
PROVIDERS: Emergency Provider Internal Medicine
DX: F10.129 Alcohol abuse with intoxication, unspecified (principal); R45.851 Suicidal ideations; Z79.899 Other long term (current) drug therapy; F17.210 Nicotine dependence, cigarettes, uncomplicated; Z71.6 Tobacco abuse counseling
CPT/HCPCS: 99284

== ENCOUNTER 2022-12-07 12:14 | Emergency (ER) | payer OTHER, SELFPAY ==
[2022-12-07 12:23] VITALS: BP 122/78; PULSE 93; O2SAT 96
[2022-12-07 13:20] VITALS: BP 115/76; PULSE 118; RESP 16; TEMP 36.4; O2SAT 96; BMI 22.1
--- NOTE | 2022-12-07 13:21 | ED.GENADULT ---
HPI - General Adult General Chief complaint: ETOH/Substance Use Stated complaint: ETOH INTOX SEEKING DETOX PER EMS Time Seen by Provider: 12/07/22 18:53 Source: patient Mode of arrival: ambulatory Limitations: no limitations History of Present Illness HPI narrative: 62-year-old male with history of alcohol abuse presents to the ED seeking detox. Patient last drink was yesterday morning. Patient wants to stop drinking. Patient denies any suicidal homicidal ideation. Patient denies any auditory/visual hallucinations. Patient denies any physical complaint. Related Data Home Medications Medication Instructions Recorded Confirmed albuterol sulfate 90 mcg/actuation 1 puff inhalation Q4H PRN 08/29/22 10/07/22 aerosol inhaler Shortness Of Breath Or Wheezing apixaban 5 mg tablet (Eliquis) 5 mg PO BID 08/29/22 10/07/22 ipratropium 20 mcg-albuterol 100 1 puff inhalation QID PRN 08/29/22 10/08/22 mcg/actuation mist for inhalation Shortness Of Breath (Combivent Respimat) Previous Rx's Medication Instructions Recorded levofloxacin 500 mg tablet 500 mg PO DAILY #3 tabs 10/14/22 doxycycline monohydrate 100 mg 100 mg PO BID #20 tabs 11/09/22 tablet Allergies Allergy/AdvReac Type Severity Reaction Status Date / Time Peanut Butter Allergy Facial Verified 11/21/22 23:17 Swelling raspberry Allergy Facial Verified 11/21/22 23:17 Swelling PMFSH Past Medical History Medical History Alcohol dependence Presence of IVC filter Acute and chronic respiratory failure with hypoxia COPD (chronic obstructive pulmonary disease) Alcohol use disorder, severe, dependence Tobacco abuse Subdural hematoma DVT (deep venous thrombosis) COPD (chronic obstructive pulmonary disease) Asthma Neuropathy Alcohol abuse Social History Social History Household Members: None Housing: House Do you presently have visiting nurse or other home services: No Alcohol intake: current Alcohol intake frequency: does not drink Alcohol type: beer and hard liquor Patient Tobacco Use Status: Current everyday Tobacco user Tobacco use type: Cigarette Cigarette Packs Per Day: 1 Cigarettes Per Day: 20.0 Smoked in Last 30 Days: Yes e-Cigarette/Vaping Use: Never Used Second Hand Smoke Exposure: No Use of substances other than those prescribed or required for medical reasons: No Substance Use Type: Marijuana Advance Directives: Yes Advance Directives on File: Yes Advance Directives Date on File: 03/05/22 service: No Current occupational status: disabled Physical Exam ED Vital Signs: Vital Signs - 24 hr 12/07/22 13:20 12/07/22 19:49 Temperature 97.6 F 99.0 F Pulse Rate 118 H 86 Respiratory Rate 16 14 Blood Pressure 115/76 125/75 Pulse Oximetry 96 97 Oxygen Delivery Method Room Air Room Air BMI result Body Mass Index 22.1 Const General: cooperative, healthy appearing, comfortable, no acute distress, well developed, alert, awake and Physically active Orientation/consciousness: oriented to person, oriented to place, oriented to time and patient oriented x3 HENMT Head: Yes normal to inspection, Yes No palpable skull fracture present, Yes normocephalic, Yes atraumatic and No abrasion Eyes General: appearance normal, both eyes and all related structures Neck Neck: Yes normal visual inspection, Yes full ROM, Yes no lymphadenopathy, Yes no meningeal signs, Yes trachea midline, Yes supple, No anterior neck swelling and No tender Chest Chest palpation & inspection: normal inspection of the chest and normal palpation of entire chest wall Resp Effort & Inspection: normal respiratory effort and able to speak in complete sentences Auscultation: clear to auscultation bilaterally Cardio Jugular venous distension: no JVD Heart sounds: S1 normal heart sound present and S2 normal heart sound present GI Inspection: Yes normal to inspection and No abdominal wall ecchymosis Palpation (GI): Soft to palpation, not firm, nontender, no guarding and not rigid General: No CVA tenderness and Yes no CVA tenderness Back/Spine/Pelvis Back: no CVA tenderness, No CVA tenderness and No back tenderness Skin General skin exam: no rashes or lesions noted, elasticity normal and turgor normal Neuro General: oriented to person, oriented to place, oriented to time, patient oriented x3, gait normal, tone normal, moves all extremities, Normal light touch and pain sensation, no meningeal signs, no focal motor deficits, CN's II-XI intact bilaterally and normal sensation to monofilament Extrem General: Yes normal to inspection and Yes full ROM Psych Appearance: grossly normal, well kempt and not disheveled Course Course Course Narrative: RME performed by Anai Harris PA-C. Patient is a 62 year old assigned male at presenting to the emergency department requesting alcohol detox. Labs ordered. Patient placed back in the waiting room pending room availability and results. Medications Administered Discontinued Medications Generic Name Dose Route Start Last Admin Trade Name Frandy PRN Reason Stop Dose Admin Chlordiazepoxide HCl 50 mg 12/07/22 19:22 12/07/22 19:42 Chlordiazepoxide Hcl 25 Mg Capsule PO 12/07/22 19:23 50 mg ONCE ONE Administration Medical Decision Making Medical Decision Making [facility] Narrative: 62-year-old man history of alcohol abuse presents to the ED for detox for alcohol use. Patient denies any physical complaints. Patient denies any suicidal/homicidal ideation. Patient denies any auditory/visual hallucinations. Labs at baseline. Elevated liver enzymes as expected due to alcohol abuse. patient given Librium. Waiting for care team 8:59pm: Care team states they do not see patients to organize detox. There is no womens volleyball coach. Patient given booklet with list of detox programs to call for bed. Patient is safe for discharge. Differential Diagnosis Differential Diagnoses: The differential diagnosis associated with the presentation includes (Detox, alcohol abuse, alcohol withdrawal.) Lab Data [facility] Lab Attestation statement: I reviewed the patient's lab results. 12/07/22 13:37 12/07/22 13:37 Labs: Lab Results 12/07/22 Range/Units 13:37 WBC 5.1 (4.8-10.8) X10*3/uL RBC 4.11 L (4.60-5.80) X10*6/uL Hgb 12.1 L (14.0-18.0) g/dl Hct 36.1 L (42.0-52.0) % MCV 87.8 (80.0-98.0) fL MCH 29.4 (27.0-33.0) pg MCHC 33.5 (31.0-36.0) g/dl RDW 17.2 H (11.0-16.0) % Plt Count 112 L (160-400) X10*3/uL MPV 9.9 (9.4-12.4) fL Immature Gran % (Auto) 0.6 H (0.0-0.4) % Neut % (Auto) 65.0 (45-73) % Lymph % (Auto) 24.1 (20-40) % [place] % (Auto) 7.7 (2-11) % Eos % (Auto) 1.2 (0-4) % Baso % (Auto) 1.4 (0-2) % Lymph # (Auto) 1.2 (1.2-4.9) X10*3/uL [place] # (Auto) 0.4 (0.1-1.2) X10*3/uL Eos # (Auto) 0.1 (0.0-0.4) X10*3/uL Baso # (Auto) 0.1 (0.0-0.2) X10*3/uL Abs Immat Gran (auto) 0.03 (0.00-0.03) X10*3/uL Absolute Neuts (auto) 3.3 (2.0-8.3) x10*3/uL Absolute Nucleated RBC 0.000 (0.0-0.012) X10*3/uL Nucleated RBC % (auto) 0.0 (0.0-0.2) /100WBC Sodium 142 (135-145) mmol/L Potassium 4.3 D (3.3-5.1) mmol/L Chloride 96 (96-108) mmol/L Carbon Dioxide 28 (22-29) mmol/L Anion Gap 22 H (12-20) BUN 9 (9-16) mg/dL Creatinine 0.85 (0.5-1.4) mg/dL Estim Creat Clear Calc 86.7 Estimated GFR > 60 Random Glucose 95 (60-115) mg/dL Calcium 10.3 H D (8.4-10.2) mg/dL Total Bilirubin 1.2 H (0.0-1.0) mg/dL AST 158 H (5-37) U/L ALT 69 H (0-40) U/L Alkaline Phosphatase 187 H (39-117) U/L Total Protein 8.1 H (6.5-8.0) g/dL Albumin 4.3 (3.5-5.0) g/dL Salicylates < 5.0 L (15-30) mg/dL Acetaminophen < 17 (<30) mcg/mL Ethyl Alcohol 208 mg/dL COVID-19 (NELY) Negative (Negative) COVID-19 Clin Com See Note Independent Historian Clinical information obtained from an independent historian. History obtained from or confirmed by: EMS External Record Review External record reviewed: Other (Prior ED visits) Chronic Conditions Patient?s care impacted by: Other (Alcohol abuse) Discharge Plan Discharge Clinical Impression: Alcohol abuse Patient Disposition: Home, Self-Care Instructions: Abuse of Alcohol (ED) Additional Instructions: Recommend calling detox programs from list you were given in the ER. Return to the ED immediately for any suicidal/homicidal ideation, any auditory/visual hallucinations, any physical complaints, or any other concerning symptoms. Prescriptions: No Action albuterol sulfate 90 mcg/actuation HFA aerosol inhaler 1 puff inhalation Q4H PRN (Reason: Shortness Of Breath Or Wheezing) Eliquis 5 mg tablet 5 mg PO BID Combivent Respimat 20-100 mcg/actuation mist 1 puff inhalation QID PRN (Reason: Shortness Of Breath) levofloxacin 500 mg tablet 500 mg PO DAILY Qty: 3 0RF doxycycline monohydrate 100 mg tablet 100 mg PO BID Qty: 20 0RF Interventions: ED Discharge Assessment Last Done: 12/07/22 21:15 Discharge Date/Time: 12/07/22 21:15 Print Language: Belarusian
[2022-12-07 19:49] VITALS: BP 125/75; PULSE 86; RESP 14; TEMP 37.2; O2SAT 97
[2022-12-07 21:07] VITALS: BP 136/82; PULSE 106; RESP 18; TEMP 36.8; O2SAT 98
--- NOTE | 2022-12-07 21:14 | PC.NURSE ---
pt a&o, no sob or chest pain, Detox information and contacts given, Reviewed discharge instructions with pt. pt verbalized understanding.
== END 2022-12-07 21:15 | disposition home or self-care (01) ==
PROVIDERS: Emergency Provider Internal Medicine; PCP Internal Medicine
DX: F10.10 Alcohol abuse, uncomplicated (principal); F17.210 Nicotine dependence, cigarettes, uncomplicated; Z20.822 Contact with and (suspected) exposure to COVID-19; F10.129 Alcohol abuse with intoxication, unspecified; Y90.7 Blood alcohol level of 200-239 mg/100 ml; Z71.41 Alcohol abuse counseling and surveillance of alcoholic; Z71.6 Tobacco abuse counseling; Z79.899 Other long term (current) drug therapy
CPT/HCPCS: 80053; 80143; 80179; 80307; 85025; 87635; 99283; 99284

== ENCOUNTER 2023-03-24 01:29 | Emergency (ER) | payer OTHER, SELFPAY ==
--- NOTE | ~2023-03-24 | XR_ITS ---
EXAMINATION: XR CHEST CLINICAL INFORMATION: Right-sided rib pain after fall COMPARISON: 10/07/2022 TECHNIQUE: Frontal view of the chest was obtained. FINDINGS: The lungs are clear with no focal consolidation. No evidence of pneumothorax, pulmonary edema, or significant pleural effusions. The cardiomediastinal silhouette is unremarkable. Questionable subtle cortical irregularity of the lateral right seventh rib. XR/XR chest 1V IMPRESSION: Questionable subtle cortical irregularity of the lateral right seventh rib, for which a nondisplaced fracture would be difficult to exclude. Assessment with dedicated rib radiographs may be helpful.
[2023-03-24 02:20] VITALS: BP 110/60; PULSE 88; O2SAT 100
[2023-03-24 02:30] VITALS: BP 90/50; PULSE 89; RESP 20; TEMP 36.4; O2SAT 93; BMI 21.3
[2023-03-24 02:45] VITALS: BP 110/59; PULSE 80; RESP 22; TEMP 36.9; O2SAT 93
[2023-03-24 03:49] LABS: Anion Gap 19 (12-20); Blood Urea Nitrogen 8 mg/dL (9-16); Calcium 9.3 mg/dL (8.4-10.2); Carbon Dioxide 18 mmol/L (22-29); Chloride 105 mmol/L (96-108); Estimated Glomerular Filt Rate > 60; Ethanol 194 mg/dL; Glucose Random 79 mg/dL (60-115); Potassium 4.6 mmol/L (3.3-5.1); Sodium 137 mmol/L (135-145)
--- NOTE | 2023-03-24 04:23 | ED.ALCOHOL ---
HPI - Alcohol General Chief Complaint: Back Pain/Injury Stated Complaint: ETOH Time Seen by Provider: 03/24/23 03:24 Source: patient Mode of arrival: EMS History of Present Illness HPI narrative: 62-year-old male who presents via EMS with complaints about right-sided rib pain and reports that he broke 3 of his ribs from a fall 2 days ago. Patient also endorses drinking 1 and half pt of whiskey and at this time states he is looking for detox. Related Data Home Medications Medication Instructions Recorded Confirmed albuterol sulfate 90 mcg/actuation 1 puff inhalation Q4H PRN 08/29/22 10/07/22 aerosol inhaler Shortness Of Breath Or Wheezing apixaban 5 mg tablet (Eliquis) 5 mg PO BID 08/29/22 10/07/22 ipratropium 20 mcg-albuterol 100 1 puff inhalation QID PRN 08/29/22 10/08/22 mcg/actuation mist for inhalation Shortness Of Breath (Combivent Respimat) Previous Rx's Medication Instructions Recorded levofloxacin 500 mg tablet 500 mg PO DAILY #3 tabs 10/14/22 doxycycline monohydrate 100 mg 100 mg PO BID #20 tabs 11/09/22 tablet Allergies Allergy/AdvReac Type Severity Reaction Status Date / Time Peanut Butter Allergy Facial Verified 11/21/22 23:17 Swelling raspberry Allergy Facial Verified 11/21/22 23:17 Swelling Review of Systems Review of Systems: Pertinent positives and negatives as stated in HPI PMFSH Past Medical History Source: nursing notes reviewed Medical History Alcohol dependence Presence of IVC filter Acute and chronic respiratory failure with hypoxia COPD (chronic obstructive pulmonary disease) Alcohol use disorder, severe, dependence Tobacco abuse Subdural hematoma DVT (deep venous thrombosis) COPD (chronic obstructive pulmonary disease) Asthma Neuropathy Alcohol abuse Social History Social History Household Members: None Housing: House Do you presently have visiting nurse or other home services: No Alcohol intake: current Alcohol intake frequency: 3 or more drinks per day Alcohol type: beer and hard liquor Comment: pt refuses high fall risk interventions Patient Tobacco Use Status: Current everyday Tobacco user Tobacco use type: Cigarette Cigarette Packs Per Day: 1 Cigarettes Per Day: 20.0 e-Cigarette/Vaping Use: Never Used Second Hand Smoke Exposure: No Substance Use Type: Marijuana Advance Directives: Yes Advance Directives on File: Yes Advance Directives Date on File: 03/05/22 service: No Current occupational status: disabled Physical Exam ED Vital Signs: Vital Signs - 24 hr 03/24/23 02:30 03/24/23 02:45 Temperature 97.6 F 98.4 F Pulse Rate 89 80 Respiratory Rate 20 22 H Blood Pressure 90/50 L 110/59 L Pulse Oximetry 93 93 Oxygen Delivery Method Room Air Room Air BMI result Body Mass Index 21.3 VITAL SIGNS: Reviewed. GENERAL: Well developed, well nourished, in no acute distress. HEAD: Normocephalic/atraumatic EYES: PERRLA, EOMI LUNGS: Normal breath sounds. No adventitious sounds or accessory muscle use. SpO2<93>; CHEST: Pain to palpation over right lateral chest without crepitus CARDIOVASCULAR: Regular rate and rhythm without noted murmurs ABDOMEN: Soft, non-tender, non-distended with bowel sounds. MUSCULOSKELETAL: No tenderness, deformities, or effusions noted on gross inspection. EXTREMITIES: No cyanosis, clubbing or edema. SKIN: Inspection of the skin reveals no rashes NEUROLOGIC: Alert and oriented x 4. Strength and sensation to light touch were grossly intact x 4. Medical Decision Making Medical Decision Making MDM Narrative: 62-year-old male with history and clinical presentation, DDX: Alcohol intoxication, possible rib fracture Reviewed all investigations and hematologic indices demonstrate a chronic normocytic anemia and no leukocytosis, however there is a thrombocytopenia that is chronically stable. Chemistry indices do not demonstrated TAMEKA and there are no electrolyte derangements.[id number], chest x-ray demonstrates likely rib fracture and patient was provided with incentive spirometry. Patient is otherwise medically cleared for further evaluation by the care team/recovery team for possible detox placement. Patient placed in physician observation because the patient needed more time for care team/recovery team evaluation. At the time observation was started the patient's vital signs were stable, patient is alert and oriented, neuro: Nonfocal, CV RRR, lungs clear Differential Diagnosis Differential Diagnoses: The differential diagnosis associated with the presentation includes Please see the discussion by Admission/Observation Consideration of admission/observation: Escalation of care including admission/observation considered Please see the discussion above Lab Data MDM Lab Attestation statement: I reviewed the patient's lab results. Please see the discussion above 03/24/23 05:50 03/24/23 03:31 Labs: Lab Results 03/24/23 03/24/23 Range/Units 03:31 05:50 WBC 5.4 (4.8-10.8) X10*3/uL RBC 3.37 L (4.60-5.80) X10*6/uL Hgb 9.5 L D (14.0-18.0) g/dl Hct 28.5 L D (42.0-52.0) % MCV 84.6 (80.0-98.0) fL MCH 28.2 (27.0-33.0) pg MCHC 33.3 (31.0-36.0) g/dl RDW 15.9 (11.0-16.0) % Plt Count 90 L (160-400) X10*3/uL MPV 9.5 (9.4-12.4) fL Immature Gran % (Auto) 0.6 H (0.0-0.4) % Neut % (Auto) 61.4 (45-73) % Lymph % (Auto) 22.0 (20-40) % [place] % (Auto) 11.5 H (2-11) % Eos % (Auto) 3.9 (0-4) % Baso % (Auto) 0.6 (0-2) % Lymph # (Auto) 1.2 (1.2-4.9) X10*3/uL [place] # (Auto) 0.6 (0.1-1.2) X10*3/uL Eos # (Auto) 0.2 (0.0-0.4) X10*3/uL Baso # (Auto) 0.0 (0.0-0.2) X10*3/uL Abs Immat Gran (auto) 0.03 (0.00-0.03) X10*3/uL Absolute Neuts (auto) 3.3 (2.0-8.3) x10*3/uL Absolute Nucleated RBC 0.000 (0.0-0.012) X10*3/uL Nucleated RBC % (auto) 0.0 (0.0-0.2) /100WBC Sodium 137 (135-145) mmol/L Potassium 4.6 (3.3-5.1) mmol/L Chloride 105 (96-108) mmol/L Carbon Dioxide 18 L (22-29) mmol/L Anion Gap 19 (12-20) BUN 8 L (9-16) mg/dL Creatinine 0.79 (0.5-1.4) mg/dL Estim Creat Clear Calc 87.0 Estimated GFR > 60 Random Glucose 79 (60-115) mg/dL Calcium 9.3 D (8.4-10.2) mg/dL Ethyl Alcohol 194 mg/dL Radiology Impression Discussion of test interpretation with radiology: I have reviewed the radiologist's reading. Radiologist Impression: Please see discussion above External Record Review External record reviewed: Outpatient record, Prior outpatient labs and Prior outpatient radiology Critical Care Time Critical Care Time Critical Care Time: Yes Total Critical Care Time: 45 Attestation: I personally attest to this time spent taking care of the patient. Discharge Plan Discharge Clinical Impression: Alcohol abuse, Alcohol intoxication, Fracture of rib Patient Disposition: Still a Patient Prescriptions: No Action albuterol sulfate 90 mcg/actuation HFA aerosol inhaler 1 puff inhalation Q4H PRN (Reason: Shortness Of Breath Or Wheezing) Eliquis 5 mg tablet 5 mg PO BID Combivent Respimat 20-100 mcg/actuation mist 1 puff inhalation QID PRN (Reason: Shortness Of Breath) levofloxacin 500 mg tablet 500 mg PO DAILY Qty: 3 0RF doxycycline monohydrate 100 mg tablet 100 mg PO BID Qty: 20 0RF
[2023-03-24 05:54] LABS: Basophils Percent Auto 0.6 % (0-2); Eosinophils Absolute Auto 0.2 X10*3/uL (0.0-0.4); Eosinophils Percent Auto 3.9 % (0-4); Hematocrit 28.5 % (42.0-52.0); Hemoglobin 9.5 g/dl (14.0-18.0); Imm Gran Abs Auto 0.03 X10*3/uL (0.00-0.03); Imm Gran Pct Auto 0.6 % (0.0-0.4); Lymphocytes Absolute Auto 1.2 X10*3/uL (1.2-4.9); MANUAL DIFF FLAG NO; Mean Corpuscular HGB Conc 33.3 g/dl (31.0-36.0); Mean Corpuscular Hemoglobin 28.2 pg (27.0-33.0); Mean Corpuscular Volume 84.6 fL (80.0-98.0); Mean Platelet Volume 9.5 fL (9.4-12.4); Monocytes Absolute Auto 0.6 X10*3/uL (0.1-1.2); Monocytes Percent Auto 11.5 % (2-11); Neutrophils Absolute Auto 3.3 x10*3/uL (2.0-8.3); Neutrophils Percent Auto 61.4 % (45-73); Red Blood Count 3.37 X10*6/uL (4.60-5.80); Red Cell Distribution Width 15.9 % (11.0-16.0); White Blood Count 5.4 X10*3/uL (4.8-10.8)
[2023-03-24 05:55] LABS: Platelet Count 90 X10*3/uL (160-400)
[2023-03-24 06:27] VITALS: BP 109/55; PULSE 86; RESP 20; TEMP 36.7; O2SAT 94
[2023-03-24 06:48] LABS: Amphetamine Screen Urine Not Detected (Not Detect); Barbiturates, Urine POSITIVE (Not Detect); Benzodiazepines Screen Urine Not Detected (Not Detect); Cannabinoid Screen Urine Not Detected (Not Detect); Cocaine Screen Urine Not Detected (Not Detect); Fentanyl, urine Not Detected (Not Detect); Opiate Screen Urine POSITIVE (Not Detect); Phencyclidine Screen Urine Not Detected (Not Detect)
--- NOTE | 2023-03-24 08:11 | PC.NURSE ---
patient appears to be sleeping in the hallway, respirations equal and unlabored. patient appears to be in no distress.
--- NOTE | 2023-03-24 09:58 | MHC.RECOVRN ---
Met with pt in [id number] after pt expressed interest in ATS. Pt presented to ER via EMS for right sided rib pain due to broken ribs from fall 2 days ago as well as alcohol use and looking for ATS. Pt laying in bed, awake, alert, easily engages in conversation. Pt reports being at [facility] yesterday x 1.5 days after fall causing broken ribs. Pt reports he left AMA and is unsure how he ended up at [facility]. Pt reports alcohol use, 2 pints [employer] daily, last use prior to arrival. Pt reports he has not been to ATS recently, states I know I am just going to drink again. 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 Discussed ATS, pt reports he has clothes at home that he needs to get prior to ATS admission. Discussed bed availability, pt reports interest in [facility], states [facility] won't take me anymore. Plan for pt to dc home, gather belongings, and present to [facility] as a walk in at 8 am tomorrow. Pt provided with resources, denies questions or concerns for t/w. Pt reports he has transportation home via [facility]. Discussed with provider.
== END 2023-03-24 10:29 | disposition home or self-care (01) ==
PROVIDERS: Emergency Provider Student in an Organized Health Care Education/Training Program
DX: S22.31XA Fracture of one rib, right side, initial encounter for closed fracture (principal); R07.81 Pleurodynia; F17.200 Nicotine dependence, unspecified, uncomplicated; F10.10 Alcohol abuse, uncomplicated; Y90.6 Blood alcohol level of 120-199 mg/100 ml; W01.10XA Fall on same level from slipping, tripping and stumbling with subsequent striking against unspecified object, initial encounter; Y93.9 Activity, unspecified; Y92.9 Unspecified place or not applicable; Z79.899 Other long term (current) drug therapy; Y99.8 Other external cause status
CPT/HCPCS: 36415; 71045; 80048; 80307; 85025; 94010; 99284

== ENCOUNTER 2023-04-04 04:41 | Emergency (ER) | payer MEDICARE, SELFPAY ==
[2023-04-04 04:47] VITALS: BP 106/64; BP 136/74; PULSE 80; RESP 16; O2SAT 94; O2SAT 95; BMI 21.3
--- NOTE | 2023-04-04 05:28 | ED_ITS ---
HPI - Alcohol General Chief Complaint: ETOH/Substance Use Stated Complaint: ETOH Time Seen by Provider: 04/04/23 04:55 Source: patient and old records reviewed Mode of arrival: EMS Limitations: no limitations History of Present Illness HPI narrative: 62 yo male with PMH of ETOH abuse, COPD, DVT on eliquis here with c/o complaint of ETOH abuse and wants detox denies trauma recent rib fracture. He was just sent to [facility] on 03/24. He has chronic presentations for detox and then returns to the ED. No new trauma falls or SI. MD complaint: alcohol dependence and desires rehab Last drink: Just prior to admission Chronic alcohol use: Yes Previous visits for alcohol intoxication: Yes Recent trauma: No Associated symptoms: denies other symptoms Treatments prior to arrival: none Related Data Home Medications Medication Instructions Recorded Confirmed albuterol sulfate 90 mcg/actuation 1 puff inhalation Q4H PRN 08/29/22 10/07/22 aerosol inhaler Shortness Of Breath Or Wheezing apixaban 5 mg tablet (Eliquis) 5 mg PO BID 08/29/22 10/07/22 ipratropium 20 mcg-albuterol 100 1 puff inhalation QID PRN 08/29/22 10/08/22 mcg/actuation mist for inhalation Shortness Of Breath (Combivent Respimat) Previous Rx's Medication Instructions Recorded levofloxacin 500 mg tablet 500 mg PO DAILY #3 tabs 10/14/22 doxycycline monohydrate 100 mg 100 mg PO BID #20 tabs 11/09/22 tablet Allergies Allergy/AdvReac Type Severity Reaction Status Date / Time Peanut Butter Allergy Facial Verified 11/21/22 23:17 Swelling raspberry Allergy Facial Verified 11/21/22 23:17 Swelling Review of Systems Review of Systems: Constitutional : No Fever, No Chills ENT/Mouth : No Ear Pain, No Nasal Congestion, No sore throat Eyes: No Eye Pain, No Swelling, No Redness Cardiovascular : No Chest Pain, No SOB Respiratory : No Cough, No Sputum, No Dyspnea Gastrointestinal : No Nausea, No Vomiting, No Diarrhea, No Hematochezia, No Melena Genitourinary : No Dysuria, No Urinary Frequency, No Hematuria Musculoskeletal : No Myalgias Skin : No Skin Lesions, No rash Neuro : No Weakness, No Numbness, No Paresthesias, No Dizziness, No Headache Psych : positive Anxiety, no Depression, no SI/HI All other systems reviewed and are negative [facility] Past Medical History Attestation statement: The following information was validated with the patient. Source: old records reviewed Medical History Alcohol dependence Presence of IVC filter Acute and chronic respiratory failure with hypoxia COPD (chronic obstructive pulmonary disease) Alcohol use disorder, severe, dependence Tobacco abuse Subdural hematoma DVT (deep venous thrombosis) COPD (chronic obstructive pulmonary disease) Asthma Neuropathy Alcohol abuse Social History Social History Household Members: None Housing: House Do you presently have visiting nurse or other home services: No Alcohol intake: current Alcohol intake frequency: 3 or more drinks per day Alcohol type: hard liquor Comment: pt refuses high fall risk interventions Patient Tobacco Use Status: Current everyday Tobacco user Tobacco use type: Cigarette Cigarette Packs Per Day: 1 Cigarettes Per Day: 20.0 Smoked in Last 30 Days: Yes e-Cigarette/Vaping Use: Never Used Second Hand Smoke Exposure: No Use of substances other than those prescribed or required for medical reasons: No Substance Use Type: Marijuana Advance Directives: Yes Advance Directives on File: Yes Advance Directives Date on File: 03/05/22 service: No Current occupational status: disabled Physical Exam ED Vital Signs: Vital Signs - 24 hr 04/04/23 04:47 Pulse Rate 80 Respiratory Rate 16 Blood Pressure 106/64 Pulse Oximetry 95 Oxygen Delivery Method Room Air BMI result Body Mass Index 21.3 Appearance: Alert. Oriented X3. No acute distress. Appears under the influence Eyes: Pupils equal, round and reactive to light. ENT: Pharynx normal. Atraumatic Neck: Normal inspection. Neck supple. CVS: Normal heart rate and rhythm. Pulses normal. Respiratory: No respiratory distress. Breath sounds normal. Abdomen: Soft and nontender. Skin: Skin warm and dry. Normal skin color. Normal skin turgor. Extremities: No lower extremity edema. No calf ttp Neuro: Oriented X 3. No motor deficit. No sensory deficit. Course Course Course Narrative: Physician observation started at 545am. Patient placed in physician observation because the patient needed more time for CARE team to assess if patient is suitable for detox. At the time observation was started the patient's vitals were stable, patient is alert and oriented Neuro: nonfocal, CV RRR, Lungs clear Reevaluation(s) Reevaluation #1: signed out pending labs to oncoming provider Medical Decision Making Medical Decision Making [facility] Narrative: 62 yo male with PMH of ETOH abuse, COPD, DVT on eliquis here with c/o ETOH abuse and wants detox he denies medical complaints or SI at this time will obtain basic labs, CARE team consult though I feel he will likely go home given recent [facility] stay Differential Diagnosis Differential Diagnoses: The differential diagnosis associated with the pres entation includes alcohol use disorder Admission/Observation Consideration of admission/observation: Escalation of care including admission/observation considered observe until seen by CARE team Lab Data [facility] Lab Attestation statement: I reviewed the patient's lab results. External Record Review External record reviewed: Inpatient record Social Determinants Patient?s care significantly limited by Social Determinants of Health including: Problems related to primary support group Discharge Plan Discharge Clinical Impression: Alcohol abuse Patient Disposition: Still a Patient Prescriptions: No Action albuterol sulfate 90 mcg/actuation HFA aerosol inhaler 1 puff inhalation Q4H PRN (Reason: Shortness Of Breath Or Wheezing) Eliquis 5 mg tablet 5 mg PO BID Combivent Respimat 20-100 mcg/actuation mist 1 puff inhalation QID PRN (Reason: Shortness Of Breath) levofloxacin 500 mg tablet 500 mg PO DAILY Qty: 3 0RF doxycycline monohydrate 100 mg tablet 100 mg PO BID Qty: 20 0RF
[2023-04-04 06:57] VITALS: BP 105/66; PULSE 90; RESP 14; TEMP 36.7; O2SAT 97
[2023-04-04 06:58] LABS: MANUAL DIFF FLAG NO
[2023-04-04 07:08] LABS: Basophils Absolute Auto 0.1 X10*3/uL (0.0-0.2); Basophils Percent Auto 1.4 % (0-2); Eosinophils Absolute Auto 0.1 X10*3/uL (0.0-0.4); Eosinophils Percent Auto 1.8 % (0-4); Hematocrit 39.4 % (42.0-52.0); Hemoglobin 13.2 g/dl (14.0-18.0); Imm Gran Abs Auto 0.01 X10*3/uL (0.00-0.03); Imm Gran Pct Auto 0.2 % (0.0-0.4); Lymphocytes Absolute Auto 1.9 X10*3/uL (1.2-4.9); Lymphocytes Percent Auto 39.8 % (20-40); Mean Corpuscular HGB Conc 33.5 g/dl (31.0-36.0); Mean Corpuscular Volume 83.5 fL (80.0-98.0); Mean Platelet Volume 8.9 fL (9.4-12.4); Monocytes Absolute Auto 0.4 X10*3/uL (0.1-1.2); Neutrophils Absolute Auto 2.3 x10*3/uL (2.0-8.3); Neutrophils Percent Auto 47.8 % (45-73); Platelet Count 164 X10*3/uL (160-400); Red Blood Count 4.72 X10*6/uL (4.60-5.80); Red Cell Distribution Width 17.3 % (11.0-16.0); White Blood Count 4.9 X10*3/uL (4.8-10.8)
[2023-04-04 07:17] LABS: Alanine Aminotransferase 45 U/L (0-40); Albumin Level 4.2 g/dL (3.5-5.0); Alkaline Phosphatase 159 U/L (39-117); Anion Gap 20 (12-20); Aspartate Amino Transferase 77 U/L (5-37); Bilirubin Direct 0.4 mg/dL (0.0-0.5); Bilirubin Total 0.5 mg/dL (0.0-1.0); Blood Urea Nitrogen 12 mg/dL (9-16); Calcium 8.9 mg/dL (8.4-10.2); Carbon Dioxide 27 mmol/L (22-29); Chloride 99 mmol/L (96-108); Creatinine Clr Calc Pharmacy 79.9; Estimated Glomerular Filt Rate > 60; Ethanol 364 mg/dL; Glucose Random 94 mg/dL (60-115); Potassium 3.8 mmol/L (3.3-5.1); Sodium 142 mmol/L (135-145); Total Protein 8.3 g/dL (6.5-8.0)
--- NOTE | 2023-04-04 09:38 | MHC.RECOVRN ---
[place]. Pt had presented to the ED via EMS with alcohol use and requesting ATS. Pt laying in bed, awake, alert, easily engages in conversation, familiar with t/w from previous consults. T/w had seen pt on 03/24 and plan was to go home, gather belongings, and present to [facility] at 8AM the following day. Pt reports he did not go. Of note, pt has bracelet from [employer] dated 03/31 on wrist. Pt reports alcohol use, 2 pints plus 1 sleeve [employer] daily, last drink [employer]. Pt reports he has been to many facilities and typically leaves AMA. Pt reports longest time in recovery was 3 months in 2016 after going to [facility] in [place]. Discussed possibility of [facility] himself if he wishes to stay in tx but knows he has a tendency to discharge prior to completion of tx. Pt reports he does not want to be institutionalized. Discussed presenting to [facility] tomorrow as a walk in if he so chooses. Pt ambivalent regarding tx at this time. Discussed other recovery support options, pt is familiar with resources available. Pt denies other questions or concerns at this time. Discussed with provider, plan to dc home and present to [facility] at 8AM if pt decides he would like to go to ATS.
== END 2023-04-04 15:30 | disposition home or self-care (01) ==
PROVIDERS: Emergency Provider Emergency Medicine; PCP Internal Medicine
DX: F10.10 Alcohol abuse, uncomplicated (principal); Z71.41 Alcohol abuse counseling and surveillance of alcoholic; Z79.899 Other long term (current) drug therapy; F17.200 Nicotine dependence, unspecified, uncomplicated; Z71.6 Tobacco abuse counseling; Z86.718 Personal history of other venous thrombosis and embolism; Z79.01 Long term (current) use of anticoagulants
CPT/HCPCS: 36415; 80048; 80076; 80307; 85025; 99283; 99284

== ENCOUNTER 2023-04-05 00:03 | Emergency (ER) | payer MEDICARE, SELFPAY ==
[2023-04-05 00:17] VITALS: BP 104/72; BP 135/90; PULSE 95; PULSE 98; RESP 16; O2SAT 93; O2SAT 95; BMI 22.6
--- NOTE | 2023-04-05 00:26 | ED.ALCOHOL ---
HPI - Alcohol General Chief Complaint: ETOH/Substance Use Stated Complaint: ETOH Time Seen by Provider: 04/05/23 00:06 Source: patient and old records reviewed Mode of arrival: EMS Limitations: no limitations History of Present Illness HPI narrative: 62 yo male with PMH of ETOH abuse, COPD, DVT on eliquis here with c/o wanting to go to detox. He states he flaked on [facility]. He has no other complaints. Wants us to place him in detox. MD complaint: alcohol dependence and desires rehab Last drink: Hours (ago) Chronic alcohol use: Yes Previous visits for alcohol intoxication: Yes Recent trauma: Yes (seen 03/24 dx with rib fracture) Associated symptoms: denies other symptoms Treatments prior to arrival: none Related Data Home Medications Medication Instructions Recorded Confirmed albuterol sulfate 90 mcg/actuation 1 puff inhalation Q4H PRN 08/29/22 10/07/22 aerosol inhaler Shortness Of Breath Or Wheezing apixaban 5 mg tablet (Eliquis) 5 mg PO BID 08/29/22 10/07/22 ipratropium 20 mcg-albuterol 100 1 puff inhalation QID PRN 08/29/22 10/08/22 mcg/actuation mist for inhalation Shortness Of Breath (Combivent Respimat) Previous Rx's Medication Instructions Recorded levofloxacin 500 mg tablet 500 mg PO DAILY #3 tabs 10/14/22 doxycycline monohydrate 100 mg 100 mg PO BID #20 tabs 11/09/22 tablet Allergies Allergy/AdvReac Type Severity Reaction Status Date / Time Peanut Butter Allergy Facial Verified 11/21/22 23:17 Swelling raspberry Allergy Facial Verified 11/21/22 23:17 Swelling Review of Systems Review of Systems: Constitutional : No Fever, No Chills ENT/Mouth : No Ear Pain, No Nasal Congestion, No sore throat Eyes: No Eye Pain, No Swelling, No Redness Cardiovascular : No Chest Pain, No SOB Respiratory : No Cough, No Sputum, No Dyspnea Gastrointestinal : No Nausea, No Vomiting, No Diarrhea, No Hematochezia, No Melena Genitourinary : No Dysuria, No Urinary Frequency, No Hematuria Musculoskeletal : No Myalgias Skin : No Skin Lesions, No rash Neuro : No Weakness, No Numbness, No Paresthesias, No Dizziness, No Headache Psych : positive Anxiety, no Depression, no SI/HI Heme/Lymph: No Lymphadenopathy Endocrine : No Polyuria, No Polydipsia All other systems reviewed and are negative [facility] Past Medical History Attestation statement: The following information was validated with the patient. Source: old records reviewed Medical History Alcohol dependence Presence of IVC filter Acute and chronic respiratory failure with hypoxia COPD (chronic obstructive pulmonary disease) Alcohol use disorder, severe, dependence Tobacco abuse Subdural hematoma DVT (deep venous thrombosis) COPD (chronic obstructive pulmonary disease) Asthma Neuropathy Alcohol abuse Social History Social History Household Members: None Housing: House Do you presently have visiting nurse or other home services: No Alcohol intake: current Alcohol intake frequency: 3 or more drinks per day Alcohol type: hard liquor Comment: pt refuses high fall risk interventions Patient Tobacco Use Status: Current everyday Tobacco user Tobacco use type: Cigarette Cigarette Packs Per Day: 1 Cigarettes Per Day: 20.0 Smoked in Last 30 Days: Yes e-Cigarette/Vaping Use: Never Used Second Hand Smoke Exposure: No Use of substances other than those prescribed or required for medical reasons: No Substance Use Type: Marijuana Advance Directives: Yes Advance Directives on File: Yes Advance Directives Date on File: 03/05/22 service: No Current occupational status: disabled Physical Exam ED Vital Signs: Vital Signs - 24 hr 04/05/23 00:17 04/05/23 05:08 Temperature 97.9 F Pulse Rate 95 66 Respiratory Rate 16 18 Blood Pressure 104/72 110/70 Pulse Oximetry 93 94 Oxygen Delivery Method Room Air Room Air BMI result Body Mass Index 22.6 Appearance: Alert. Oriented X3. No acute distress. Does not appear heavily intoxicated he is very upset that I will not call a detox center for him and place him Eyes: Pupils equal, round and reactive to light. ENT: Pharynx normal. Neck: Normal inspection. Neck supple. CVS: Normal heart rate and rhythm. Pulses normal. Respiratory: No respiratory distress. Breath sounds normal. Abdomen: Soft and nontender. Skin: Skin warm and dry. Normal skin color. Normal skin turgor. Extremities: No lower extremity edema. No calf ttp Neuro: Oriented X 3. No motor deficit. No sensory deficit. Course Course Course Narrative: clinically sober he is stable for DC Medical Decision Making Medical Decision Making MDM Narrative: 62 yo male with PMH of ETOH abuse, COPD, DVT on eliquis here with c/o ETOH abuse and wants detox though he was just told to follow up with [facility] and instead called EMS to drive him here so we could call for him. He has no medical issues. He is very upset that I will not call for him. At this time he can call for himself. He has a history of getting a detox bed then refusing or not showing. He is not heavily intoxicated and can follow up as outpatient when he has sober ride. Just had labs drawn yesterday that were reassuring Differential Diagnosis Differential Diagnoses: The differential diagnosis associated with the presentation includes alcohol dependence Independent Historian Clinical information obtained from an independent historian. History obtained from or confirmed by: EMS External Record Review External record reviewed: Inpatient record Social Determinants Patient?s care significantly limited by Social Determinants of Health including: Low income and Other Social Determinant of Health Discharge Plan Discharge Clinical Impression: Alcohol abuse Patient Disposition: Home, Self-Care Instructions: Alcohol Use Disorder (ED) Additional Instructions: you can call [facility] from home and get a detox bed or you can show up and walk in as detox. you are medically cleared for detox treatment you had normal labs on 04/04/23 [facility] number - [phone] [facility] Prescriptions: No Action albuterol sulfate 90 mcg/actuation HFA aerosol inhaler 1 puff inhalation Q4H PRN (Reason: Shortness Of Breath Or Wheezing) Eliquis 5 mg tablet 5 mg PO BID Combivent Respimat 20-100 mcg/actuation mist 1 puff inhalation QID PRN (Reason: Shortness Of Breath) levofloxacin 500 mg tablet 500 mg PO DAILY Qty: 3 0RF doxycycline monohydrate 100 mg tablet 100 mg PO BID Qty: 20 0RF
[2023-04-05 05:08] VITALS: BP 110/70; PULSE 66; RESP 18; TEMP 36.6; O2SAT 94
== END 2023-04-05 06:05 | disposition home or self-care (01) ==
PROVIDERS: Emergency Provider Emergency Medicine; PCP Internal Medicine
DX: F10.10 Alcohol abuse, uncomplicated (principal); Y90.9 Presence of alcohol in blood, level not specified; F17.210 Nicotine dependence, cigarettes, uncomplicated; Z86.718 Personal history of other venous thrombosis and embolism; Z79.01 Long term (current) use of anticoagulants; Z79.899 Other long term (current) drug therapy
CPT/HCPCS: 99284

== ENCOUNTER 2023-04-05 18:32 | Emergency (ER) | payer MEDICARE, SELFPAY ==
[2023-04-05 18:36] VITALS: BP 136/72; PULSE 74; O2SAT 98
--- NOTE | 2023-04-05 19:05 | ED_ITS ---
HPI - General Adult General Chief complaint: ETOH/Substance Use Stated complaint: ETOH,LOOKING FOR DETOX Time Seen by Provider: 04/05/23 18:45 Source: patient, EMS, RN notes reviewed and old records reviewed Mode of arrival: EMS Limitations: other History of Present Illness HPI narrative: 62-year-old male presents for evaluation of alcohol abuse and depression Patient reports he is ?looking for help. ? He reports that he drinks 2 pints of [place] whiskey daily His last drink was just prior to arrival. The patient reports he is also depressed He is seeking detox He reports feeling somewhat nauseous but denies any pain Related Data Home Medications Medication Instructions Recorded Confirmed albuterol sulfate 90 mcg/actuation 1 puff inhalation Q4H PRN 08/29/22 10/07/22 aerosol inhaler Shortness Of Breath Or Wheezing apixaban 5 mg tablet (Eliquis) 5 mg PO BID 08/29/22 10/07/22 ipratropium 20 mcg-albuterol 100 1 puff inhalation QID PRN 08/29/22 10/08/22 mcg/actuation mist for inhalation Shortness Of Breath (Combivent Respimat) Previous Rx's Medication Instructions Recorded levofloxacin 500 mg tablet 500 mg PO DAILY #3 tabs 10/14/22 doxycycline monohydrate 100 mg 100 mg PO BID #20 tabs 11/09/22 tablet Allergies Allergy/AdvReac Type Severity Reaction Status Date / Time Peanut Butter Allergy Facial Verified 11/21/22 23:17 Swelling raspberry Allergy Facial Verified 11/21/22 23:17 Swelling Review of Systems Constitutional: Constitutional: Denies body ache(s), Denies chills and Denies fever(s) Cardiovascular: Cardiovascular: Denies chest pain and Denies dyspnea Respiratory: Respiratory: Denies cough and Denies dyspnea Gastrointestinal: Gastrointestinal: Denies abdominal pain, Reports nausea and Denies vomiting Musculoskeletal: Musculoskeletal: Denies back pain Integumentary/Breasts: Skin/Breast: Denies rash Psychiatric: Psychiatric: Reports depression PMF Past Medical History Medical History Alcohol dependence Presence of IVC filter Acute and chronic respiratory failure with hypoxia COPD (chronic obstructive pulmonary disease) Alcohol use disorder, severe, dependence Tobacco abuse Subdural hematoma DVT (deep venous thrombosis) COPD (chronic obstructive pulmonary disease) Asthma Neuropathy Alcohol abuse Social History Social History Household Members: None Housing: House Do you presently have visiting nurse or other home services: No Alcohol intake: current Alcohol intake frequency: 3 or more drinks per day Alcohol type: hard liquor Comment: pt refuses high fall risk interventions Patient Tobacco Use Status: Current everyday Tobacco user Tobacco use type: Cigarette Cigarette Packs Per Day: 1 Cigarettes Per Day: 20.0 e-Cigarette/Vaping Use: Never Used Second Hand Smoke Exposure: No Substance Use Type: Marijuana Advance Directives: Yes Advance Directives on File: Yes Advance Directives Date on File: 03/05/22 service: No Current occupational status: disabled Physical Exam ED Vital Signs: Vital Signs - 24 hr 04/05/23 19:14 Temperature 97.5 F Pulse Rate 76 Respiratory Rate 18 Blood Pressure 118/65 Pulse Oximetry 95 Oxygen Delivery Method Room Air BMI result Body Mass Index 21.3 Const General: healthy appearing, comfortable, no acute distress, alert and awake Nutritional Appearance: well nourished Orientation/consciousness: patient oriented x3 HENMT Head: Yes normocephalic and Yes atraumatic Eyes Eyelids: Yes eyelids normal Conjunctivae: conjunctivae normal Sclerae: sclerae normal Corneas: corneas normal Pupils: Equal, round and reactive pupils present EOM: EOMs intact bilaterally Neck Neck: Yes full ROM Resp Effort & Inspection: normal respiratory effort, able to speak in complete sentences and not labored Cardio Other: No lower extremity edema GI Inspection: No distended Palpation (GI): Soft to palpation, not firm, nontender, no guarding and not rigid Skin General skin exam: elasticity normal Neuro General: patient oriented x3 Cranial nerves: Yes Equal, round and reactive pupils present and Yes Bilaterally intact EOM present Cognition (Neuro): normal cognition Extrem Other: Moving all extremities well without any obvious deformities Course Reevaluation(s) Reevaluation #1: I canceled the patient's labs, as he was just here this morning and had lab work performed. Plan for addiction medicine consult. Patient will be in position helps pending addiction medicine consult Time: 23:55 Reevaluation #2: Patient resting comfortably throughout the evening, still awaiting addiction medicine consult. Time: 01:56 Medical Decision Making Medical Decision Making MDM Narrative: 62-year-old male with frequent ED visits for similar complaints presents for evaluation of detox. He reports drinking 2 pints of whiskey earlier today. Plan for alcohol level, basic labs and addiction medicine consult. The patient reports depression but is not currently suicidal. Differential Diagnosis Differential Diagnoses: The differential diagnosis associated with the presentation includes Alcohol abuse Depression Alcohol withdrawal Acute alcohol intoxication Discharge Plan Discharge Clinical Impression: Alcohol abuse, Depression Patient Disposition: Still a Patient Instructions: Abuse of Alcohol (ED) Prescriptions: No Action albuterol sulfate 90 mcg/actuation HFA aerosol inhaler 1 puff inhalation Q4H PRN (Reason: Shortness Of Breath Or Wheezing) Eliquis 5 mg tablet 5 mg PO BID Combivent Respimat 20-100 mcg/actuation mist 1 puff inhalation QID PRN (Reason: Shortness Of Breath) levofloxacin 500 mg tablet 500 mg PO DAILY Qty: 3 0RF doxycycline monohydrate 100 mg tablet 100 mg PO BID Qty: 20 0RF
[2023-04-05 19:14] VITALS: BP 118/65; PULSE 76; RESP 18; TEMP 36.4; O2SAT 95; BMI 21.3
[2023-04-06 01:58] VITALS: BP 123/65; PULSE 96; RESP 18; TEMP 36.9; O2SAT 95
[2023-04-06 06:40] VITALS: BP 139/76; PULSE 85; RESP 18; O2SAT 96
--- NOTE | 2023-04-06 08:42 | PC.NURSE ---
PT AMB TO [facility] WITHOUT DIFFICULTY
== END 2023-04-06 08:42 | disposition home or self-care (01) ==
PROVIDERS: Emergency Provider Internal Medicine; PCP Internal Medicine
DX: F10.10 Alcohol abuse, uncomplicated (principal); F33.1 Major depressive disorder, recurrent, moderate; F17.210 Nicotine dependence, cigarettes, uncomplicated; Y90.9 Presence of alcohol in blood, level not specified; Z79.899 Other long term (current) drug therapy
CPT/HCPCS: 99284

== ENCOUNTER 2023-04-06 22:23 | Emergency (ER) | payer MEDICARE, SELFPAY ==
[2023-04-06 22:29] VITALS: BP 135/74; PULSE 84; O2SAT 96
[2023-04-06 22:33] VITALS: BP 114/69; PULSE 84; RESP 17; TEMP 36.6; O2SAT 94
[2023-04-06 22:38] VITALS: BMI 23.0
--- NOTE | 2023-04-06 23:21 | ED.GENADULT ---
HPI - General Adult General Chief complaint: ETOH/Substance Use Stated complaint: ETOH, wants to detox, pain from fx and falls Time Seen by Provider: 04/06/23 23:21 History of Present Illness HPI narrative: The patient is a 62-year-old male with a long history of alcoholism and multiple ER visits for alcohol-related issues. He also has frequent detox admissions. He came to the hospital today by ambulance from his home. He says that he had had an appointment to be admitted to [facility] but he ?blew it off. ? He then decided to come here instead. Soon after he arrived however he decided he wanted to go home and called a cab. Related Data Home Medications Medication Instructions Recorded Confirmed albuterol sulfate 90 mcg/actuation 1 puff inhalation Q4H PRN 08/29/22 10/07/22 aerosol inhaler Shortness Of Breath Or Wheezing apixaban 5 mg tablet (Eliquis) 5 mg PO BID 08/29/22 10/07/22 ipratropium 20 mcg-albuterol 100 1 puff inhalation QID PRN 08/29/22 10/08/22 mcg/actuation mist for inhalation Shortness Of Breath (Combivent Respimat) Previous Rx's Medication Instructions Recorded levofloxacin 500 mg tablet 500 mg PO DAILY #3 tabs 10/14/22 doxycycline monohydrate 100 mg 100 mg PO BID #20 tabs 11/09/22 tablet Allergies Allergy/AdvReac Type Severity Reaction Status Date / Time Peanut Butter Allergy Facial Verified 04/06/23 22:44 Swelling raspberry Allergy Facial Verified 04/06/23 22:44 Swelling Review of Systems Review of Systems: Yes all other systems are reviewed and are negative [facility] Past Medical History Medical History Alcohol dependence Presence of IVC filter Acute and chronic respiratory failure with hypoxia COPD (chronic obstructive pulmonary disease) Alcohol use disorder, severe, dependence Tobacco abuse Subdural hematoma DVT (deep venous thrombosis) COPD (chronic obstructive pulmonary disease) Asthma Neuropathy Alcohol abuse Social History Social History Household Members: None Housing: House Do you presently have visiting nurse or other home services: No Alcohol intake: current Alcohol intake frequency: 3 or more drinks per day Alcohol type: hard liquor Comment: pt refuses high fall risk interventions Patient Tobacco Use Status: Current everyday Tobacco user Tobacco use type: Cigarette Cigarette Packs Per Day: 1 Cigarettes Per Day: 20.0 Smoked in Last 30 Days: Yes e-Cigarette/Vaping Use: Never Used Second Hand Smoke Exposure: No Use of substances other than those prescribed or required for medical reasons: No Substance Use Type: Marijuana Advance Directives: Yes Advance Directives on File: Yes Advance Directives Date on File: 03/05/22 service: No Current occupational status: disabled Physical Exam ED Vital Signs: Vital Signs - 24 hr 04/06/23 22:33 Temperature 97.8 F Pulse Rate 84 Respiratory Rate 17 Blood Pressure 114/69 Pulse Oximetry 94 Oxygen Delivery Method Room Air BMI result Body Mass Index 23.0 Const Other: The patient is a thin 62-year-old male who was awake and alert. He seems well oriented. He does not seem in distress. HENMT Other: The face is symmetrical. ?Mucous membranes moist. Eyes Other: Pupils are round equal, conjunctivae are clear, extraocular movements intact Neck Neck: Yes no JVD Resp Effort & Inspection: normal respiratory effort Auscultation: clear to auscultation bilaterally Cardio Rate: regular rate Rhythm: regular rhythm Heart sounds: S1 normal heart sound present and S2 normal heart sound present GI Other: Abdomen is soft and nontender Skin Other: Skin is pale and dry Neuro Other: The patient is awake and alert. He is oriented to person place and time. Speech is clear. Face is symmetrical. He moves his extremities symmetrically. Gait is reasonably steady. Extrem Other: No peripheral edema Medical Decision Making Medical Decision Making MDM Narrative: Patient is a 62-year-old male with a long history of alcoholism with innumerable emergency room visits at this hospital and other hospitals for alcohol-related issues. He arrived by ambulance but soon after arriving he decided he wanted to go home. He seems reasonably steady on his feet. He called a taxi to arrange his own transportation home. I think he may be discharged to follow up with his regular doctor or to contact detox his on his own as an outpatient. Discharge Plan Discharge Clinical Impression: Alcohol intoxication Patient Disposition: Home, Self-Care Additional Instructions: Please follow-up with your regular doctor. If you are feeling depressed and wished to speak to somebody confidentially you may contact the crisis hotline at [phone]. You may also contact [facility] to see if beds are available. Prescriptions: No Action albuterol sulfate 90 mcg/actuation HFA aerosol inhaler 1 puff inhalation Q4H PRN (Reason: Shortness Of Breath Or Wheezing) Eliquis 5 mg tablet 5 mg PO BID Combivent Respimat 20-100 mcg/actuation mist 1 puff inhalation QID PRN (Reason: Shortness Of Breath) levofloxacin 500 mg tablet 500 mg PO DAILY Qty: 3 0RF doxycycline monohydrate 100 mg tablet 100 mg PO BID Qty: 20 0RF Referrals: Cristhian Delgado MD [Primary Care Provider] - (ETOH) Interventions: ED Discharge Assessment Last Done: 04/06/23 23:31 Discharge Date/Time: 04/06/23 23:33
--- NOTE | 2023-04-06 23:21 | PC.NURSE ---
pt up and ambulating with even and steady gait, he reports that he wants to go home. MD Zimmerman did see the pt and spoke with him. pt currently pending dc instructions.
== END 2023-04-06 23:33 | disposition home or self-care (01) ==
PROVIDERS: Emergency Provider Emergency Medicine; PCP Internal Medicine
DX: F10.129 Alcohol abuse with intoxication, unspecified (principal); J44.9 Chronic obstructive pulmonary disease, unspecified
CPT/HCPCS: 99283; 99284

== ENCOUNTER 2023-04-12 00:13 | Emergency (ER) | payer MEDICARE, SELFPAY ==
--- NOTE | ~2023-04-12 | XR_ITS ---
EXAMINATION: XR CHEST CLINICAL INFORMATION: Shortness of breath. COMPARISON: 03/24/2023 TECHNIQUE: Frontal view of the chest was obtained. FINDINGS: The cardiomediastinal silhouette is normal. There is apparent chronic blunting of the right costophrenic angle. There is no focal parenchymal consolidation. The bony structures and soft tissues are unremarkable. XR/XR chest 1V IMPRESSION: No acute cardiopulmonary process.
[2023-04-12 00:22] VITALS: BP 145/74; PULSE 78
--- NOTE | 2023-04-12 00:26 | ED.ALCOHOL ---
HPI - Alcohol General Stated Complaint: ETOH, SEEKING DETOX Time Seen by Provider: 04/12/23 00:17 Source: patient Mode of arrival: EMS Limitations: no limitations History of Present Illness HPI narrative: Patient comes to the emergency room requesting detox. Patient states that he drinks 2 pt of Southern comfort every day or sometimes he drinks more. Patient states that he would like to go to detox. Patient denies any falls, no injuries. Patient denies suicidal or homicidal ideation Related Data Home Medications Medication Instructions Recorded Confirmed albuterol sulfate 90 mcg/actuation 1 puff inhalation Q4H PRN 08/29/22 10/07/22 aerosol inhaler Shortness Of Breath Or Wheezing apixaban 5 mg tablet (Eliquis) 5 mg PO BID 08/29/22 10/07/22 ipratropium 20 mcg-albuterol 100 1 puff inhalation QID PRN 08/29/22 10/08/22 mcg/actuation mist for inhalation Shortness Of Breath (Combivent Respimat) Previous Rx's Medication Instructions Recorded levofloxacin 500 mg tablet 500 mg PO DAILY #3 tabs 10/14/22 doxycycline monohydrate 100 mg 100 mg PO BID #20 tabs 11/09/22 tablet Allergies Allergy/AdvReac Type Severity Reaction Status Date / Time Peanut Butter Allergy Facial Verified 04/06/23 22:44 Swelling raspberry Allergy Facial Verified 04/06/23 22:44 Swelling Review of Systems Review of Systems: Constitutional : No Weight loss, No Fever, No Chills, No Night Sweats, No Fatigue, No Malaise ENT/Mouth : No Hearing loss, No Ear Pain, No Nasal Congestion, No Sinus Pain, No Hoarseness, No sore throat, No Rhinorrhea, No Swallowing Difficulty Eyes: No Eye Pain, No Swelling, No Redness, No Foreign Body, No Discharge, No Vision Changes Cardiovascular : No Chest Pain, No SOB, No Dyspnea on Exertion, No Orthopnea, No Edema, No Palpitations Respiratory : No Cough, No Sputum, No Wheezing, No Smoke Exposure, No Dyspnea Gastrointestinal : No Nausea, No Vomiting, No Diarrhea, No Constipation, No abdominal Pain, No Hematochezia, No Melena Genitourinary : no irregular bleeding, No Dysuria, No Urinary Frequency, No Hematuria, No Urinary Incontinence, No Urgency, No Flank Pain, No Urinary Flow Changes, No Hesitancy Musculoskeletal : No joint pain, No Myalgias, No Joint Swelling Skin : No Skin Lesions, No rash Neuro : No Weakness, No Numbness, No Paresthesias, No Loss of Consciousness, No Dizziness, No Headache Psych : No Anxiety/Panic, No Depression, No SI/HI/AH/VH, admits to alcohol abuse and dependence Heme/Lymph: No Bruising, No Bleeding,No Lymphadenopathy Endocrine : No Polyuria, No Polydipsia, No Temperature Intolerance [facility] Past Medical History Medical History Alcohol dependence Presence of IVC filter Acute and chronic respiratory failure with hypoxia COPD (chronic obstructive pulmonary disease) Alcohol use disorder, severe, dependence Tobacco abuse Subdural hematoma DVT (deep venous thrombosis) COPD (chronic obstructive pulmonary disease) Asthma Neuropathy Alcohol abuse Social History Social History Household Members: None Housing: House Do you presently have visiting nurse or other home services: No Alcohol intake: current Alcohol intake frequency: 3 or more drinks per day Alcohol type: hard liquor Comment: pt refuses high fall risk interventions Patient Tobacco Use Status: Current everyday Tobacco user Tobacco use type: Cigarette Cigarette Packs Per Day: 1 Cigarettes Per Day: 20.0 e-Cigarette/Vaping Use: Never Used Second Hand Smoke Exposure: No Substance Use Type: Marijuana Advance Directives Date on File: 03/05/22 service: No Current occupational status: disabled Physical Exam ED Const Other: Appearance: Alert. Oriented X3. No acute distress. Coherent Eyes: Pupils equal, round and reactive to light. ENT: Pharynx normal. Neck: Normal inspection. Neck supple. No lymph nodes noted. No crepitus CVS: Normal heart rate and rhythm. Pulses normal. Normal S1 and S2 Respiratory: No respiratory distress. Breath sounds normal. No Wheezing. No rales Abdomen: Soft and nontender. No rigidity. No distention. Skin: Skin warm and dry. Normal skin color. Normal skin turgor. Extremities: No lower extremity edema. No Lacerations. No Rash Neuro: Oriented X 3. No motor deficit. No sensory deficit. Moving all extremities. No slurred speech. CN 2 through 12 grossly intact Psych: calm, cooperative, normal affect Course Course Course Narrative: -patient requesting detox. However, this time, care team is not available. Patient agrees to wait until tomorrow. -however, patient is well known in our service, patient gets into detox and does not follow-up. At this time, I suspect that patient is seeking for a place to spend the night. -I discussed with the patient's nurse that we may keep the patient in the ED until care team sees the patient. , patient is not SI or HI, if patient wants to be discharged prior to the care team/assistant tennis coach evaluation, patient may be discharged. -at this time, patient is awake, alert and oriented x3, coherent, does not seem to be intoxicated. -of patient's labs pending -care team consult pending -physician observation started at 00:30 Medical Decision Making Differential Diagnosis Differential Diagnoses: The differential diagnosis associated with the presentation includes (Intoxication, alcohol dependence) Admission/Observation Consideration of admission/observation: Escalation of care including admission/observation considered (Patient waiting to be seen by the care team, patient remains under physician observation) Discharge Plan Discharge Clinical Impression: Alcohol abuse Patient Disposition: Still a Patient Prescriptions: No Action albuterol sulfate 90 mcg/actuation HFA aerosol inhaler 1 puff inhalation Q4H PRN (Reason: Shortness Of Breath Or Wheezing) Eliquis 5 mg tablet 5 mg PO BID Combivent Respimat 20-100 mcg/actuation mist 1 puff inhalation QID PRN (Reason: Shortness Of Breath) levofloxacin 500 mg tablet 500 mg PO DAILY Qty: 3 0RF doxycycline monohydrate 100 mg tablet 100 mg PO BID Qty: 20 0RF
[2023-04-12 00:34] VITALS: BP 91/54; PULSE 87; RESP 14; TEMP 36.4; O2SAT 94; BMI 25.8
[2023-04-12 00:53] LABS: PLT CLUMP 1; SCAN SMEAR FLAG 1
[2023-04-12 00:55] LABS: Basophils Absolute Auto 0.1 X10*3/uL (0.0-0.2); Eosinophils Absolute Auto 0.1 X10*3/uL (0.0-0.4); Eosinophils Percent Auto 1.4 % (0-4); Hematocrit 39.1 % (42.0-52.0); Hemoglobin 13.2 g/dl (14.0-18.0); Imm Gran Abs Auto 0.01 X10*3/uL (0.00-0.03); Imm Gran Pct Auto 0.2 % (0.0-0.4); Lymphocytes Absolute Auto 2.2 X10*3/uL (1.2-4.9); Lymphocytes Percent Auto 37.5 % (20-40); Mean Corpuscular HGB Conc 33.8 g/dl (31.0-36.0); Mean Corpuscular Hemoglobin 28.7 pg (27.0-33.0); Mean Platelet Volume 8.8 fL (9.4-12.4); Monocytes Absolute Auto 0.8 X10*3/uL (0.1-1.2); Monocytes Percent Auto 13.1 % (2-11); Neutrophils Absolute Auto 2.7 x10*3/uL (2.0-8.3); Neutrophils Percent Auto 46.8 % (45-73); Red Cell Distribution Width 17.9 % (11.0-16.0)
[2023-04-12 01:01] LABS: MANUAL DIFF FLAG NO; Platelet Count 146 X10*3/uL (160-400); White Blood Count 5.8 X10*3/uL (4.8-10.8)
[2023-04-12 01:06] LABS: Alanine Aminotransferase 41 U/L (0-40); Albumin Level 4.1 g/dL (3.5-5.0); Alkaline Phosphatase 147 U/L (39-117); Anion Gap 20 (12-20); Aspartate Amino Transferase 68 U/L (5-37); Bilirubin Direct 0.5 mg/dL (0.0-0.5); Bilirubin Total 0.8 mg/dL (0.0-1.0); Blood Urea Nitrogen 8 mg/dL (9-16); Carbon Dioxide 24 mmol/L (22-29); Chloride 100 mmol/L (96-108); Creatinine Clr Calc Pharmacy 68.4; Estimated Glomerular Filt Rate > 60; Ethanol 366 mg/dL; Glucose Random 101 mg/dL (60-115); Magnesium 2.1 mg/dL (1.6-2.6); Potassium 3.3 mmol/L (3.3-5.1); Sodium 141 mmol/L (135-145); Total Protein 8.1 g/dL (6.5-8.0)
--- NOTE | 2023-04-12 02:55 | PC.NURSE ---
pt was resting in stretcher with eyes closed noticed sats drop to 80% on RA. upon entry to room pt awakens to name. with deep breathing sats up to 87% on RA hx COPD. dr. barrios notified. after a few minutes of sitting up sats up to 95% on RA. lung sounds slight crackles auscultated. pt denied cp/sob/n/v/d. 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 Barrios. pt remains axox4 resp even and unlabored. nad.
[2023-04-12] MEDS: Albuterol Sulfate 2.5 MG, Albuterol/Iprat 2.5/0.5MG 3 ML 3 ML INHALE (03:16)
[2023-04-12 03:17] VITALS: PULSE 113; RESP 18; O2SAT 98
--- NOTE | 2023-04-12 03:30 | PC.NURSE ---
pt reports feel better after breathing tx. sats 96% on RA.
[2023-04-12 03:53] LABS: COVID-19 Test Negative (Negative); IDNOW Serial# 08D9AD1C; IDNOW Serial# 152EDE1D; Influenza A Negative (Negative); Influenza B2 Negative (Negative)
[2023-04-12 05:43] VITALS: BP 130/100; PULSE 113; RESP 22; TEMP 36.9; O2SAT 93
[2023-04-12 07:38] VITALS: BP 107/69; PULSE 111; RESP 18; TEMP 36.9; O2SAT 95
--- NOTE | 2023-04-12 07:39 | PC.NURSE ---
this RN resumed care of pt at this time. vss and up to date aside from pt being sinus tachy on the monitoring coordinator. 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 pt states he drank 2 pints of southern comfort. updated CIWA = 5. pt denies pain at this time but states he feels uncomfortable in bed. sob/wob noted. respirations even and unlabored. call goetz placed within reach.
== END 2023-04-12 08:40 | disposition home or self-care (01) ==
PROVIDERS: Internal Medicine; Emergency Provider Emergency Medicine; PCP Internal Medicine
DX: F10.10 Alcohol abuse, uncomplicated (principal); R06.02 Shortness of breath; F17.210 Nicotine dependence, cigarettes, uncomplicated; Y90.9 Presence of alcohol in blood, level not specified; Z79.01 Long term (current) use of anticoagulants; Z79.899 Other long term (current) drug therapy; Z11.52 Encounter for screening for COVID-19
CPT/HCPCS: 36415; 71045; 80048; 80076; 80307; 83735; 85025; 87502; 87635; 94640; 99284; 99285

== ENCOUNTER 2023-05-27 00:14 | Emergency (ER) | payer MEDICARE, MEDICAID, SELFPAY ==
--- NOTE | 2023-05-27 00:24 | ED.ALCOHOL ---
HPI - Alcohol General Stated Complaint: etoh Time Seen by Provider: 05/27/23 00:21 Source: patient and EMS Mode of arrival: EMS Limitations: no limitations History of Present Illness HPI narrative: Patient comes to the emergency room from home via ambulance. Patient reports that he was discharged from rehab /detox for alcohol yesterday, patient started drinking again and would like to return to rehab/detox. Patient denies SI or HI, no other complaints. Related Data Home Medications Medication Instructions Recorded Confirmed albuterol sulfate 90 mcg/actuation 1 puff inhalation Q4H PRN 08/29/22 10/07/22 aerosol inhaler Shortness Of Breath Or Wheezing apixaban 5 mg tablet (Eliquis) 5 mg PO BID 08/29/22 10/07/22 ipratropium 20 mcg-albuterol 100 1 puff inhalation QID PRN 08/29/22 10/08/22 mcg/actuation mist for inhalation Shortness Of Breath (Combivent Respimat) Previous Rx's Medication Instructions Recorded levofloxacin 500 mg tablet 500 mg PO DAILY #3 tabs 10/14/22 doxycycline monohydrate 100 mg 100 mg PO BID #20 tabs 11/09/22 tablet Allergies Allergy/AdvReac Type Severity Reaction Status Date / Time Peanut Butter Allergy Facial Verified 04/06/23 22:44 Swelling raspberry Allergy Facial Verified 04/06/23 22:44 Swelling Review of Systems Review of Systems: Constitutional : No Weight loss, No Fever, No Chills, No Night Sweats, No Fatigue, No Malaise ENT/Mouth : No Hearing loss, No Ear Pain, No Nasal Congestion, No Sinus Pain, No Hoarseness, No sore throat, No Rhinorrhea, No Swallowing Difficulty Eyes: No Eye Pain, No Swelling, No Redness, No Foreign Body, No Discharge, No Vision Changes Cardiovascular : No Chest Pain, No SOB, No Dyspnea on Exertion, No Orthopnea, No Edema, No Palpitations Respiratory : No Cough, No Sputum, No Wheezing, No Smoke Exposure, No Dyspnea Gastrointestinal : No Nausea, No Vomiting, No Diarrhea, No Constipation, No abdominal Pain, No Hematochezia, No Melena Genitourinary : no irregular bleeding, No Dysuria, No Urinary Frequency, No Hematuria, No Urinary Incontinence, No Urgency, No Flank Pain, No Urinary Flow Changes, No Hesitancy Musculoskeletal : No joint pain, No Myalgias, No Joint Swelling Skin : No Skin Lesions, No rash Neuro : No Weakness, No Numbness, No Paresthesias, No Loss of Consciousness, No Dizziness, No Headache Psych : No Anxiety/Panic, No Depression, No SI/HI/AH/VH, complaining of ETOH relapsed, requesting detox Heme/Lymph: No Bruising, No Bleeding,No Lymphadenopathy Endocrine : No Polyuria, No Polydipsia, No Temperature Intolerance [facility] Past Medical History Medical History Alcohol dependence Presence of IVC filter Acute and chronic respiratory failure with hypoxia COPD (chronic obstructive pulmonary disease) Alcohol use disorder, severe, dependence Tobacco abuse Subdural hematoma DVT (deep venous thrombosis) COPD (chronic obstructive pulmonary disease) Asthma Neuropathy Alcohol abuse Social History Social History Household Members: None Housing: House Do you presently have visiting nurse or other home services: No Alcohol intake: current Alcohol intake frequency: 3 or more drinks per day Alcohol type: hard liquor Comment: pt refuses high fall risk interventions Patient Tobacco Use Status: Current everyday Tobacco user Tobacco use type: Cigarette Cigarette Packs Per Day: 1 Cigarettes Per Day: 20.0 e-Cigarette/Vaping Use: Never Used Second Hand Smoke Exposure: No Substance Use Type: Marijuana Advance Directives Date on File: 03/05/22 service: No Current occupational status: disabled Physical Exam ED Const Other: Appearance: Alert. Oriented X3. No acute distress. Coherent, intoxicated Eyes: Pupils equal, round and reactive to light. ENT: Pharynx normal. Neck: Normal inspection. Neck supple. No lymph nodes noted. No crepitus CVS: Normal heart rate and rhythm. Pulses normal. Normal S1 and S2 Respiratory: No respiratory distress. Breath sounds normal. No Wheezing. No rales Abdomen: Soft and nontender. No rigidity. No distention. Skin: Skin warm and dry. Normal skin color. Normal skin turgor. Extremities: No lower extremity edema. No Lacerations. No Rash Neuro: Oriented X 3. No motor deficit. No sensory deficit. Moving all extremities. No slurred speech. CN 2 through 12 grossly intact Psych: calm, cooperative, normal affect Course Course Course Narrative: -labs pending -physician observation started at 00:27 -care team consult pending -of note, in a few minutes the system will be going in downtime, please see paper chart for remaining of medical decisions, results and disposition Medical Decision Making Differential Diagnosis Differential Diagnoses: The differential diagnosis associated with the presentation includes (Alcohol abuse, alcohol intoxication) Admission/Observation Consideration of admission/observation: Escalation of care including admission/observation considered (Patient will be under physician observation, waiting for patient to become clinically sober and for care team to determine disposition) Discharge Plan Discharge Clinical Impression: Alcohol abuse, Alcohol intoxication Patient Disposition: Still a Patient Prescriptions: No Action albuterol sulfate 90 mcg/actuation HFA aerosol inhaler 1 puff inhalation Q4H PRN (Reason: Shortness Of Breath Or Wheezing) Eliquis 5 mg tablet 5 mg PO BID Combivent Respimat 20-100 mcg/actuation mist 1 puff inhalation QID PRN (Reason: Shortness Of Breath) levofloxacin 500 mg tablet 500 mg PO DAILY Qty: 3 0RF doxycycline monohydrate 100 mg tablet 100 mg PO BID Qty: 20 0RF
[2023-05-27 00:36] VITALS: BP 103/59; BP 129/66; PULSE 80; PULSE 83; RESP 18; TEMP 36.6; O2SAT 94; O2SAT 95; BMI 23.1
[2023-05-27 00:38] LABS: Basophils Absolute Auto 0.1 X10*3/uL (0.0-0.2); Basophils Percent Auto 1.2 % (0-2); Eosinophils Absolute Auto 0.2 X10*3/uL (0.0-0.4); Eosinophils Percent Auto 3.6 % (0-4); Hematocrit 33.5 % (42.0-52.0); Hemoglobin 11.1 g/dl (14.0-18.0); Imm Gran Abs Auto 0.02 X10*3/uL (0.00-0.03); Imm Gran Pct Auto 0.3 % (0.0-0.4); Lymphocytes Absolute Auto 1.6 X10*3/uL (1.2-4.9); Lymphocytes Percent Auto 25.7 % (20-40); MANUAL DIFF FLAG NO; Mean Corpuscular HGB Conc 33.1 g/dl (31.0-36.0); Mean Corpuscular Hemoglobin 28.8 pg (27.0-33.0); Monocytes Absolute Auto 0.7 X10*3/uL (0.1-1.2); Monocytes Percent Auto 11.6 % (2-11); Neutrophils Absolute Auto 3.5 x10*3/uL (2.0-8.3); Neutrophils Percent Auto 57.6 % (45-73); Platelet Count 204 X10*3/uL (160-400); Red Blood Count 3.85 X10*6/uL (4.60-5.80); Red Cell Distribution Width 15.3 % (11.0-16.0)
[2023-05-27 00:52] LABS: Ethanol 139 mg/dL
[2023-05-27 00:55] LABS: Alanine Aminotransferase 11 U/L (0-40); Albumin Level 4.1 g/dL (3.5-5.0); Alkaline Phosphatase 94 U/L (39-117); Anion Gap 12 (12-20); Aspartate Amino Transferase 17 U/L (5-37); Bilirubin Direct 0.2 mg/dL (0.0-0.5); Bilirubin Total 0.2 mg/dL (0.0-1.0); Blood Urea Nitrogen 14 mg/dL (9-16); Calcium 9.4 mg/dL (8.4-10.2); Carbon Dioxide 24 mmol/L (22-29); Chloride 107 mmol/L (96-108); Creatinine Clr Calc Pharmacy 75.6; Estimated Glomerular Filt Rate > 60; Glucose Random 107 mg/dL (60-115); Potassium 3.6 mmol/L (3.3-5.1); Sodium 139 mmol/L (135-145)
[2023-05-27 06:20] LABS: Appearance Urine Clear; Color Urine Yellow; Glucose Urine UA Negative (Negative); Leukocyte Esterase Urine Negative (Negative); Nitrite Urine Negative (Negative); Urine Blood Negative (Negative); Urine Ketones Negative (Negative); Urine Protein Negative (Neg-Trace)
[2023-05-27 06:48] VITALS: BP 120/65; PULSE 70; RESP 16; TEMP 37.2; O2SAT 96
[2023-05-27 06:50] LABS: Amphetamine Screen Urine Not Detected (Not Detect); Barbiturates, Urine Not Detected (Not Detect); Benzodiazepines Screen Urine Not Detected (Not Detect); Cannabinoid Screen Urine Not Detected (Not Detect); Cocaine Screen Urine Not Detected (Not Detect); Fentanyl, urine Not Detected (Not Detect); Opiate Screen Urine Not Detected (Not Detect); Phencyclidine Screen Urine Not Detected (Not Detect)
[2023-05-27 07:48] VITALS: BP 120/65; PULSE 70; RESP 16; TEMP 37.2; O2SAT 96
== END 2023-05-27 07:50 | disposition home or self-care (01) ==
PROVIDERS: Emergency Provider Emergency Medicine
DX: F10.129 Alcohol abuse with intoxication, unspecified (principal); Y90.9 Presence of alcohol in blood, level not specified; J44.9 Chronic obstructive pulmonary disease, unspecified; Z86.718 Personal history of other venous thrombosis and embolism
CPT/HCPCS: 36415; 80048; 80076; 80307; 81003; 85025; 99284

== ENCOUNTER 2023-06-04 22:30 | Emergency (ER) | payer OTHER, SELFPAY ==
--- NOTE | ~2023-06-04 | XR_ITS ---
EXAMINATION: XR CHEST CLINICAL INFORMATION: RSV positive. Concern for pneumonia. COMPARISON: 04/12/2023. TECHNIQUE: Frontal view of the chest was obtained. FINDINGS: No significant abnormality is noted involving the heart, lungs, mediastinum, bony thorax or soft tissues. XR/XR chest 1V IMPRESSION: Unremarkable examination.
[2023-06-04 22:35] VITALS: BP 113/74; PULSE 87; O2SAT 96
[2023-06-04 22:36] VITALS: BP 117/71; PULSE 81; RESP 18; TEMP 36.4; O2SAT 89; BMI 23.1
[2023-06-04 22:59] LABS: MANUAL DIFF FLAG NO
[2023-06-04 23:00] LABS: Basophils Percent Auto 0.6 % (0-2); Eosinophils Absolute Auto 0.2 X10*3/uL (0.0-0.4); Eosinophils Percent Auto 2.5 % (0-4); Hematocrit 35.8 % (42.0-52.0); Imm Gran Abs Auto 0.02 X10*3/uL (0.00-0.03); Imm Gran Pct Auto 0.3 % (0.0-0.4); Lymphocytes Absolute Auto 2.3 X10*3/uL (1.2-4.9); Lymphocytes Percent Auto 35.5 % (20-40); Mean Corpuscular HGB Conc 33.5 g/dl (31.0-36.0); Mean Corpuscular Hemoglobin 28.5 pg (27.0-33.0); Mean Platelet Volume 9.2 fL (9.4-12.4); Monocytes Absolute Auto 0.6 X10*3/uL (0.1-1.2); Monocytes Percent Auto 9.8 % (2-11); Neutrophils Absolute Auto 3.3 x10*3/uL (2.0-8.3); Neutrophils Percent Auto 51.3 % (45-73); Platelet Count 182 X10*3/uL (160-400); Red Blood Count 4.21 X10*6/uL (4.60-5.80); White Blood Count 6.4 X10*3/uL (4.8-10.8)
[2023-06-04 23:15] LABS: Alanine Aminotransferase 10 U/L (0-40); Albumin Level 3.9 g/dL (3.5-5.0); Alkaline Phosphatase 99 U/L (39-117); Anion Gap 16 (12-20); Aspartate Amino Transferase 17 U/L (5-37); Bilirubin Total 0.4 mg/dL (0.0-1.0); Blood Urea Nitrogen 11 mg/dL (9-16); Calcium 8.7 mg/dL (8.4-10.2); Carbon Dioxide 25 mmol/L (22-29); Chloride 103 mmol/L (96-108); Creatinine Clr Calc Pharmacy 101.5; Estimated Glomerular Filt Rate > 60; Ethanol 264 mg/dL; Glucose Random 98 mg/dL (60-115); Potassium 3.5 mmol/L (3.3-5.1); Sodium 140 mmol/L (135-145); Total Protein 7.9 g/dL (6.5-8.0)
--- NOTE | 2023-06-04 23:31 | ECG_ITS ---
Test Reason : sob Blood Pressure : / mmHG Vent. Rate : 083 BPM Atrial Rate : 083 BPM P-R Int : 132 ms QRS Dur : 132 ms QT Int : 400 ms P-R-T Axes : 060 -64 050 degrees QTc Int : 470 ms Normal sinus rhythm Right bundle branch block Left anterior fascicular block Bifascicular block Abnormal ECG When compared with ECG of 17-SEP-2022 23:47, No significant change was found Referred By: Yamel Bradley Electronically Signed By:WAYNE AVILEZ MD
--- NOTE | 2023-06-04 23:31 | ED.ALCOHOL ---
HPI - Alcohol General Chief Complaint: ETOH/Substance Use Stated Complaint: ETOH Time Seen by Provider: 06/04/23 22:36 Source: patient and EMS Mode of arrival: EMS Limitations: no limitations History of Present Illness HPI narrative: Patient comes to the emergency room complaining of feeling hungry. Patient states that he has not eaten anything for 4-5 days because he was not hungry until today. Also, patient states that he has been having random chest pains for the last few months but no acute chest pain at this time. Patient does not remember when was the last time he would chest pain. Patient admits to drinking alcohol heavily. Patient denies SI or HI Related Data Home Medications ?Medication ?Instructions ?Recorded ?Confirmed albuterol sulfate 90 mcg/actuation 1 puff inhalation Q4H PRN 08/29/22 10/07/22 aerosol inhaler Shortness Of Breath Or Wheezing apixaban 5 mg tablet (Eliquis) 5 mg PO BID 08/29/22 10/07/22 ipratropium 20 mcg-albuterol 100 1 puff inhalation QID PRN 08/29/22 10/08/22 mcg/actuation mist for inhalation Shortness Of Breath (Combivent Respimat) Previous Rx's ?Medication ?Instructions ?Recorded levofloxacin 500 mg tablet 500 mg PO DAILY #3 tabs 10/14/22 doxycycline monohydrate 100 mg 100 mg PO BID #20 tabs 11/09/22 tablet Allergies Allergy/AdvReac Type Severity Reaction Status Date / Time Peanut Butter Allergy Facial Verified 06/04/23 22:37 Swelling raspberry Allergy Facial Verified 06/04/23 22:37 Swelling Review of Systems Review of Systems: Constitutional : No Weight loss, No Fever, No Chills, No Night Sweats, No Fatigue, No Malaise complaining of feeling hungry ENT/Mouth : No Hearing loss, No Ear Pain, No Nasal Congestion, No Sinus Pain, No Hoarseness, No sore throat, No Rhinorrhea, No Swallowing Difficulty Eyes: No Eye Pain, No Swelling, No Redness, No Foreign Body, No Discharge, No Vision Changes Cardiovascular : No chest pain at this time, complaining of intermittent chest pains for several months, does not remember when was the last time he would chest pain. No SOB, No Dyspnea on Exertion, No Orthopnea, No Edema, No Palpitations Respiratory : No Cough, No Sputum, No Wheezing, No Smoke Exposure, No Dyspnea Gastrointestinal : No Nausea, No Vomiting, No Diarrhea, No Constipation, No abdominal Pain, No Hematochezia, No Melena Genitourinary : no irregular bleeding, No Dysuria, No Urinary Frequency, No Hematuria, No Urinary Incontinence, No Urgency, No Flank Pain, No Urinary Flow Changes, No Hesitancy Musculoskeletal : No joint pain, No Myalgias, No Joint Swelling Skin : No Skin Lesions, No rash Neuro : No Weakness, No Numbness, No Paresthesias, No Loss of Consciousness, No Dizziness, No Headache Psych : No Anxiety/Panic, No Depression, No SI/HI/AH/VH, No Social Issues, Heme/Lymph: No Bruising, No Bleeding,No Lymphadenopathy Endocrine : No Polyuria, No Polydipsia, No Temperature Intolerance [facility] Past Medical History Medical History Alcohol dependence Presence of IVC filter Acute and chronic respiratory failure with hypoxia COPD (chronic obstructive pulmonary disease) Alcohol use disorder, severe, dependence Tobacco abuse Subdural hematoma DVT (deep venous thrombosis) COPD (chronic obstructive pulmonary disease) Asthma Neuropathy Alcohol abuse Social History Social History Household Members: None Housing: House Do you presently have visiting nurse or other home services: No Alcohol intake: current Alcohol intake frequency: 3 or more drinks per day Alcohol type: hard liquor Comment: pt refuses high fall risk interventions Patient Tobacco Use Status: Current everyday Tobacco user Tobacco use type: Cigarette Cigarette Packs Per Day: 1 Cigarettes Per Day: 20.0 Smoked in Last 30 Days: Yes e-Cigarette/Vaping Use: Never Used Second Hand Smoke Exposure: No Use of substances other than those prescribed or required for medical reasons: No Substance Use Type: Marijuana Advance Directives: Yes Advance Directives on File: Yes Advance Directives Date on File: 03/05/22 service: No Current occupational status: disabled Physical Exam ED Vital Signs: Vital Signs - 24 hr 06/04/23 22:36 06/05/23 00:06 Temperature 97.6 F 97.7 F Pulse Rate 81 76 Respiratory Rate 18 16 Blood Pressure 117/71 109/65 Pulse Oximetry 89 L 88 L Oxygen Delivery Method Room Air Room Air BMI result Body Mass Index 23.1 Const Other: Appearance: Alert. Oriented X3. No acute distress. Clinically sober, patient ambulatory, coherent Eyes: Pupils equal, round and reactive to light. ENT: Pharynx normal. Neck: Normal inspection. Neck supple. No lymph nodes noted. No crepitus CVS: Normal heart rate and rhythm. Pulses normal. Normal S1 and S2 Respiratory: No respiratory distress. Breath sounds normal. No Wheezing. No rales Abdomen: Soft and nontender. No rigidity. No distention. Skin: Skin warm and dry. Normal skin color. Normal skin turgor. Extremities: No lower extremity edema. No Lacerations. No Rash Neuro: Oriented X 3. No motor deficit. No sensory deficit. Moving all extremities. No slurred speech. CN 2 through 12 grossly intact Psych: calm, cooperative, normal affect Course Course Course Narrative: -patient's labs pending Medical Decision Making Medical Decision Making [facility] Narrative: my interpretation of EKG: Normal sinus rhythm, heart rate 83, no ST segment depression or elevation, bifascicular block, QTC 470 -my interpretation of labs, hematology at baseline, chemistry normal, troponin negative, patient tested positive for RSV. Patient has no symptoms, states that patient has cough at baseline, no fever chills. ETOH level 264. Patient requesting detox -discussed with the patient that the chest pain he is experiencing, likely secondary to pleurisy, positive RSV, antibiotics are not indicated. -care team consult pending. -patient known to leave before care team does evaluation. -physician observation started at 00:20 Plan: Metabolize to freedom Differential Diagnosis Differential Diagnoses: The differential diagnosis associated with the presentation includes (Alcohol dependence, alcohol intoxication, atypical chest pain) Admission/Observation Consideration of admission/observation: Escalation of care including admission/observation considered (Patient is under physician observation until patient is clinically sober. Patient requesting care team. Patient known to leave before evaluations) Lab Data [facility] Lab Attestation statement: I reviewed the patient's lab results. 06/04/23 22:55 06/04/23 22:55 Labs: Lab Results 06/04/23 Range/Units 22:55 WBC 6.4 (4.8-10.8) X10*3/uL RBC 4.21 L (4.60-5.80) X10*6/uL Hgb 12.0 L (14.0-18.0) g/dl Hct 35.8 L (42.0-52.0) % MCV 85.0 (80.0-98.0) fL MCH 28.5 (27.0-33.0) pg MCHC 33.5 (31.0-36.0) g/dl RDW 15.0 (11.0-16.0) % Plt Count 182 (160-400) X10*3/uL MPV 9.2 L (9.4-12.4) fL Immature Gran % (Auto) 0.3 (0.0-0.4) % Neut % (Auto) 51.3 (45-73) % Lymph % (Auto) 35.5 (20-40) % [place] % (Auto) 9.8 (2-11) % Eos % (Auto) 2.5 (0-4) % Baso % (Auto) 0.6 (0-2) % Lymph # (Auto) 2.3 (1.2-4.9) X10*3/uL [place] # (Auto) 0.6 (0.1-1.2) X10*3/uL Eos # (Auto) 0.2 (0.0-0.4) X10*3/uL Baso # (Auto) 0.0 (0.0-0.2) X10*3/uL Abs Immat Gran (auto) 0.02 (0.00-0.03) X10*3/uL Absolute Neuts (auto) 3.3 (2.0-8.3) x10*3/uL Absolute Nucleated RBC 0.000 (0.0-0.012) X10*3/uL Nucleated RBC % (auto) 0.0 (0.0-0.2) /100WBC Sodium 140 (135-145) mmol/L Potassium 3.5 (3.3-5.1) mmol/L Chloride 103 (96-108) mmol/L Carbon Dioxide 25 (22-29) mmol/L Anion Gap 16 (12-20) BUN 11 (9-16) mg/dL Creatinine 0.73 (0.5-1.4) mg/dL Estim Creat Clear Calc 101.5 Estimated GFR > 60 Random Glucose 98 (60-115) mg/dL Calcium 8.7 D (8.4-10.2) mg/dL Total Bilirubin 0.4 (0.0-1.0) mg/dL AST 17 (5-37) U/L ALT 10 (0-40) U/L Alkaline Phosphatase 99 (39-117) U/L Troponin I High Sens < 2.7 (<3.5-35.0) ng/L Total Protein 7.9 (6.5-8.0) g/dL Albumin 3.9 (3.5-5.0) g/dL Ethyl Alcohol 264 mg/dL Influenza Type A (PCR) NEGATIVE (Negative) Influenza Type B (PCR) NEGATIVE (Negative) RSV RNA Qual (PCR) POSITIVE A (Negative) SARS-CoV-2 RNA (RT-PCR) NEGATIVE (Negative) Independent Interpretation I performed an independent interpretation of an: EKG and Plain X-Ray Radiology Impression Discussion of test interpretation with radiology: I have reviewed the radiologist's reading. Radiologist Impression: FINDINGS: No significant abnormality is noted involving the heart, lungs, mediastinum, bony thorax or soft tissues. XR/XR chest 1V IMPRESSION: Unremarkable examination - Critical Care Time Critical Care Time Critical Care Time: Yes Total Critical Care Time: 35 Attestation: I have personally provided critical care time. Time includes review of lab data, radiology results, discussion with consultants, and monitoring for potential decompensation. Intervention performed as documented. Discharge Plan Discharge Clinical Impression: Alcohol intoxication, Pleurisy, Bronchiolitis Prescriptions: No Action albuterol sulfate 90 mcg/actuation HFA aerosol inhaler 1 puff inhalation Q4H PRN (Reason: Shortness Of Breath Or Wheezing) Eliquis 5 mg tablet 5 mg PO BID Combivent Respimat 20-100 mcg/actuation mist 1 puff inhalation QID PRN (Reason: Shortness Of Breath) levofloxacin 500 mg tablet 500 mg PO DAILY Qty: 3 0RF doxycycline monohydrate 100 mg tablet 100 mg PO BID Qty: 20 0RF Print Language: Colombian
[2023-06-04 23:36] LABS: Influenza A PCR NEGATIVE (Negative); Influenza B PCR NEGATIVE (Negative); Resp Syncy Virus RNA Qual PCR POSITIVE (Negative); SARS COV2 PCR INHOUSE NEGATIVE (Negative)
[2023-06-04 23:54] LABS: Troponin-I High Sensitivity < 2.7 ng/L (<3.5-35.0)
[2023-06-05 00:06] VITALS: BP 109/65; PULSE 76; RESP 16; TEMP 36.5; O2SAT 88
[2023-06-05 06:16] VITALS: BP 125/77; PULSE 93; RESP 16; TEMP 36.9; O2SAT 90
[2023-06-05 08:15] LABS: Appearance Urine Clear; Color Urine Dark Yellow; Glucose Urine UA Negative (Negative); Leukocyte Esterase Urine Negative (Negative); Nitrite Urine Negative (Negative); Specific Gravity - Urine 1.025 (1.005-1.025); UMIC TRIGGER UA YES; Urine Blood Negative (Negative); Urine Ketones Negative (Negative); Urine Protein 30 (1+) mg/dL (Neg-Trace)
[2023-06-05 08:24] LABS: Bacteria Urine None Seen (None Seen); RBC Urine 0-2 /HPF (0-2); Squamous Epithelial Cell Urine 0-2 /HPF (0-2); WBC Urine 0-5 /HPF (0-5)
[2023-06-05 08:27] LABS: Amphetamine Screen Urine Not Detected (Not Detect); Barbiturates, Urine Not Detected (Not Detect); Benzodiazepines Screen Urine Not Detected (Not Detect); Cannabinoid Screen Urine POSITIVE (Not Detect); Cocaine Screen Urine Not Detected (Not Detect); Fentanyl, urine Not Detected (Not Detect); Opiate Screen Urine Not Detected (Not Detect); Phencyclidine Screen Urine Not Detected (Not Detect)
[2023-06-05] MEDS: Ondansetron ODT 4 MG TAB.RAPDIS TRANSLINGU (08:45)
--- NOTE | 2023-06-05 10:42 | MHC.RECOVRN ---
Addendum entered by Vanesa Zimmerman RN 06/05/23 11:01: Gave pt list of ATS's referrals have been sent to for F/U if D/C. Also gave him info on harm reduction and outpatient treatment services. Original Note: Pt brought to ED via EMS S/P for ETOH, requesting Detox. Pt lying in bed awake, alert and easily engages in conversation.? No S/S of W/D noted and none reported. ?Last CIWA was a 4.? Pt reports he has been drinking ?my whole life?.? He reports that as of late he has been drinking 2 pints and 1 sleeve of [place] daily.? The only period of sobriety he is able to recall is when he went to treatment in 2017 and had to ?pay out of pocket?.? He described this as a motivator to stay sober. ? Pt agrees to go to any areas for detox as far out as [facility] Pt. ambulates independently with a cane.? Pt has active RSV which may be a deterrent to acceptance into ATS.? T/W emailed referral to [facility] and faxed referrals to [facility] and [facility].? All other facilities outside pt?s comfort zone.? Updated ED staff and will await contact back.
[2023-06-05 11:10] VITALS: BP 132/81; PULSE 85; RESP 18; TEMP 36.8; O2SAT 90
[2023-06-05 11:57] VITALS: PULSE 100; RESP 20; O2SAT 93
[2023-06-05] MEDS: Albuterol/Iprat 2.5/0.5MG 3 ML AMPUL.NEB INHALE (12:13)
[2023-06-05] MEDS: Albuterol Sulfate (0.083%) 2.5 MG/3 ML VIAL.NEB INHALE (12:14)
[2023-06-05 15:50] VITALS: BP 132/81; PULSE 85; RESP 20; TEMP 36.8; O2SAT 90
--- NOTE | 2023-06-05 16:57 | MHC.RECOVRN ---
T/W received call from Tyron from [facility] that they had a bed as long as pt could bring his blood thinner with him. Pt was unable to get anyone to bring this med to ED. It was discussed with provider ARNOLD Perez and offer to pt to stay ovn and in the AM he could take cab to house to get blood thinner and then go to detox. Pt declined and wanted to be D/C. I spoke with Tyron and she stated that pt could call them in the AM from home and as long as he had D/C papers and meds he could go in. I passed this information along to provider Ana and also to pt.
== END 2023-06-05 15:51 | disposition home or self-care (01) ==
PROVIDERS: Emergency Provider Emergency Medicine
DX: F10.129 Alcohol abuse with intoxication, unspecified (principal); Y90.8 Blood alcohol level of 240 mg/100 ml or more; J21.0 Acute bronchiolitis due to respiratory syncytial virus; R09.1 Pleurisy; R06.02 Shortness of breath; J44.9 Chronic obstructive pulmonary disease, unspecified
CPT/HCPCS: 0241U; 36415; 71045; 80053; 80307; 81001; 84484; 85025; 93005; 94640; 99285

== ENCOUNTER → 2023-06-04 23:31 | Outpatient (BNV) | payer OTHER, SELFPAY | PROVIDERS: Emergency Provider Emergency Medicine; Visit Provider Internal Medicine Cardiovascular Disease | DX: R94.31 Abnormal electrocardiogram [ECG] [EKG] (principal) | CPT/HCPCS: 93010 ==

== ENCOUNTER 2023-06-07 22:29 | Inpatient (IN) | payer OTHER, SELFPAY ==
--- NOTE | ~2023-06-07 | XR_ITS ---
EXAMINATION: XR CHEST CLINICAL INFORMATION: Cough. Concern for aspiration. COMPARISON: 06/04/2023 TECHNIQUE: Frontal view of the chest was obtained. FINDINGS: The cardiomediastinal silhouette is within normal limits and stable. There is no focal lung consolidation or pleural effusion. The bony structures and soft tissues are unremarkable. XR/XR chest 1V IMPRESSION: No acute cardiopulmonary process.
[2023-06-07 22:38] VITALS: BP 107/59; PULSE 100; RESP 19; TEMP 36.5; O2SAT 92
--- NOTE | 2023-06-07 22:44 | ED.ALCOHOL ---
HPI - Alcohol General Chief Complaint: ETOH/Substance Use Stated Complaint: ETOH WANTS DETOX Time Seen by Provider: 06/07/23 22:35 Source: patient and EMS Mode of arrival: EMS Limitations: no limitations History of Present Illness HPI narrative: Patient comes to the emergency room complaining of alcohol intoxication. Patient reports drinking alcohol after he was discharged. Patient denies any falls. Patient requesting detox Related Data Home Medications ?Medication ?Instructions ?Recorded ?Confirmed albuterol sulfate 90 mcg/actuation 1 puff inhalation Q4H PRN 08/29/22 10/07/22 aerosol inhaler Shortness Of Breath Or Wheezing apixaban 5 mg tablet (Eliquis) 5 mg PO BID 08/29/22 10/07/22 ipratropium 20 mcg-albuterol 100 1 puff inhalation QID PRN 08/29/22 10/08/22 mcg/actuation mist for inhalation Shortness Of Breath (Combivent Respimat) Previous Rx's ?Medication ?Instructions ?Recorded levofloxacin 500 mg tablet 500 mg PO DAILY #3 tabs 10/14/22 doxycycline monohydrate 100 mg 100 mg PO BID #20 tabs 11/09/22 tablet Allergies Allergy/AdvReac Type Severity Reaction Status Date / Time Peanut Butter Allergy Facial Verified 06/07/23 22:48 Swelling raspberry Allergy Facial Verified 06/07/23 22:48 Swelling Review of Systems Review of Systems: Constitutional : No Weight loss, No Fever, No Chills, No Night Sweats, No Fatigue, No Malaise ENT/Mouth : No Hearing loss, No Ear Pain, No Nasal Congestion, No Sinus Pain, No Hoarseness, No sore throat, No Rhinorrhea, No Swallowing Difficulty Eyes: No Eye Pain, No Swelling, No Redness, No Foreign Body, No Discharge, No Vision Changes Cardiovascular : No Chest Pain, No SOB, No Dyspnea on Exertion, No Orthopnea, No Edema, No Palpitations Respiratory : Coughing more than usual No Sputum, No Wheezing, No Smoke Exposure, No Dyspnea Gastrointestinal : No Nausea, No Vomiting, No Diarrhea, No Constipation, No abdominal Pain, No Hematochezia, No Melena Genitourinary : no irregular bleeding, No Dysuria, No Urinary Frequency, No Hematuria, No Urinary Incontinence, No Urgency, No Flank Pain, No Urinary Flow Changes, No Hesitancy Musculoskeletal : No joint pain, No Myalgias, No Joint Swelling Skin : No Skin Lesions, No rash Neuro : No Weakness, No Numbness, No Paresthesias, No Loss of Consciousness, No Dizziness, No Headache Psych : No Anxiety/Panic, No Depression, No SI/HI/AH/VH, admits to alcohol intoxication Heme/Lymph: No Bruising, No Bleeding,No Lymphadenopathy Endocrine : No Polyuria, No Polydipsia, No Temperature Intolerance [facility] Past Medical History Medical History Alcohol dependence Presence of IVC filter Acute and chronic respiratory failure with hypoxia COPD (chronic obstructive pulmonary disease) Alcohol use disorder, severe, dependence Tobacco abuse Subdural hematoma DVT (deep venous thrombosis) COPD (chronic obstructive pulmonary disease) Asthma Neuropathy Alcohol abuse Social History Social History Household Members: None Housing: House Do you presently have visiting nurse or other home services: No Alcohol intake: current Alcohol intake frequency: 3 or more drinks per day Alcohol type: hard liquor Comment: pt refuses high fall risk interventions Patient Tobacco Use Status: Current everyday Tobacco user Tobacco use type: Cigarette Cigarette Packs Per Day: 1 Cigarettes Per Day: 20.0 e-Cigarette/Vaping Use: Never Used Second Hand Smoke Exposure: No Substance Use Type: Marijuana Advance Directives: Yes Advance Directives on File: Yes Advance Directives Date on File: 03/05/22 service: No Current occupational status: disabled Physical Exam ED Vital Signs: Vital Signs - 24 hr 06/07/23 22:38 06/07/23 22:45 06/07/23 22:47 Temperature 97.7 F 97.7 F 97.7 F Pulse Rate 100 100 83 Respiratory Rate 19 19 16 Blood Pressure 107/59 L 107/59 L Pulse Oximetry 92 92 90 L Oxygen Delivery Method Room Air Room Air Room Air 06/07/23 22:59 06/07/23 23:18 06/08/23 03:11 Temperature 97.8 F Pulse Rate 79 82 Respiratory Rate 18 18 Blood Pressure 127/66 Pulse Oximetry 78 L 95 Oxygen Delivery Method Room Air Room Air BMI result Body Mass Index 20.5 Const Other: Appearance: Alert. Oriented X3. No acute distress. Eyes: Pupils equal, round and reactive to light. ENT: Pharynx normal. Neck: Normal inspection. Neck supple. No lymph nodes noted. No crepitus CVS: Normal heart rate and rhythm. Pulses normal. Normal S1 and S2 Respiratory: No respiratory distress. Mild bilateral wheezing, no crackles Abdomen: Soft and nontender. No rigidity. No distention. Skin: Skin warm and dry. Normal skin color. Normal skin turgor. Extremities: No lower extremity edema. No Lacerations. No Rash Neuro: Oriented X 3. No motor deficit. No sensory deficit. Moving all extremities. No slurred speech. CN 2 through 12 grossly intact Psych: calm, cooperative, normal affect Course Course Course Narrative: -patient known to have chronic lung disease, recently patient tested positive for RSV. Patient wheezing. No fever chills, -patient receiving a nebulization treatment and p.o. prednisone -chest x-ray pending to rule out pneumonia -care team consult pending. However, patient is well-known to the ED, patient requests to leave before the care team evaluates him. Medical Decision Making Medical Decision Making [facility] Narrative: -my interpretation of labs: Normal hematology and chemistry, lactic acid 3.0 which is chronic for the patient, likely secondary to alcohol ingestion. -I was informed by the patient's nurse that patient's oxygen saturation was 76% on room air. Patient had a good Plath. Patient was started on 2 L of oxygen, saturating 94%. -patient was given empiric antibiotic treatment since patient does have history of chronic lung disease. -my interpretation of chest x-ray: No pneumonia. Patient does have RSV -I discussed the patient with Dr. Collins, patient being admitted -patient was started on phenobarb protocol Differential Diagnosis Differential Diagnoses: The differential diagnosis associated with the presentation includes (RSV, chronic lung disease, pneumonia, viral illness) Admission/Observation Consideration of admission/observation: Escalation of care including admission/observation considered Consult Healthcare Provider Management of the patient was discussed with: Hospitalist Lab Data [facility] Lab Attestation statement: I reviewed the patient's lab results. 06/08/23 02:31 06/08/23 02:31 Labs: Lab Results 06/08/23 Range/Units 02:31 WBC 4.8 (4.8-10.8) X10*3/uL RBC 4.11 L (4.60-5.80) X10*6/uL Hgb 11.7 L (14.0-18.0) g/dl Hct 35.1 L (42.0-52.0) % MCV 85.4 (80.0-98.0) fL MCH 28.5 (27.0-33.0) pg MCHC 33.3 (31.0-36.0) g/dl RDW 14.6 (11.0-16.0) % Plt Count 155 L (160-400) X10*3/uL MPV 9.5 (9.4-12.4) fL Immature Gran % (Auto) 0.4 (0.0-0.4) % Neut % (Auto) 89.3 H (45-73) % Lymph % (Auto) 8.7 L (20-40) % [place] % (Auto) 1.2 L (2-11) % Eos % (Auto) 0.2 (0-4) % Baso % (Auto) 0.2 (0-2) % Lymph # (Auto) 0.4 L (1.2-4.9) X10*3/uL [place] # (Auto) 0.1 (0.1-1.2) X10*3/uL Eos # (Auto) 0.0 (0.0-0.4) X10*3/uL Baso # (Auto) 0.0 (0.0-0.2) X10*3/uL Abs Immat Gran (auto) 0.02 (0.00-0.03) X10*3/uL Absolute Neuts (auto) 4.3 (2.0-8.3) x10*3/uL Absolute Nucleated RBC 0.000 (0.0-0.012) X10*3/uL Nucleated RBC % (auto) 0.0 (0.0-0.2) /100WBC Sodium 141 (135-145) mmol/L Potassium 3.9 (3.3-5.1) mmol/L Chloride 102 (96-108) mmol/L Carbon Dioxide 27 (22-29) mmol/L Anion Gap 16 (12-20) BUN 12 (9-16) mg/dL Creatinine 0.75 (0.5-1.4) mg/dL Estim Creat Clear Calc 88.4 Estimated GFR > 60 Random Glucose 116 H (60-115) mg/dL Lactic Acid 3.0 H* (0.5-2.0) mmol/L Calcium 9.2 (8.4-10.2) mg/dL Troponin I High Sens < 2.7 (<3.5-35.0) ng/L B-Natriuretic Peptide 36 (<100) pg/mL Independent Interpretation I performed an independent interpretation of an: EKG (My interpretation of EKG: Normal sinus rhythm, heart rate 73, no ST segment depression or elevation, no T-wave inversion, QTC 469) Radiology Impression Discussion of test interpretation with radiology: I have reviewed the radiologist's reading. Radiologist Impression: The cardiomediastinal silhouette is within normal limits and stable. There is no focal lung consolidation or pleural effusion. The bony structures and soft tissues are unremarkable. XR/XR chest 1V IMPRESSION: No acute cardiopulmonary process. Medications Administered Discontinued Medications Generic Name Dose Route Start Last Admin Trade Name Freq PRN Reason Stop Dose Admin Albuterol Sulfate 5 mg 06/07/23 22:39 06/07/23 22:59 Albuterol Sulfate (0.083%) 2.5 Mg/3 Ml Vial.Neb INHALE 06/07/23 22:40 5 mg ONCE ONE Administration Ceftriaxone Sodium 1 gm/ 50 mls @ 100 mls/hr 06/07/23 23:20 06/08/23 02:48 Sodium Chloride IV 06/07/23 23:49 100 mls/hr ONCE ONE Administration Sodium Chloride 1,000 mls @ 999 mls/hr 06/07/23 23:20 06/08/23 02:48 Ns IVCONT 06/08/23 00:20 999 mls/hr .Q1H1M ONE Administration Prednisone 60 mg 06/07/23 22:39 06/07/23 23:02 Prednisone 20 Mg Tablet PO 06/07/23 22:40 60 mg ONCE ONE Administration Critical Care Time Critical Care Time Critical Care Time: Yes Total Critical Care Time: 75 Attestation: I have personally provided critical care time. Time includes review of lab data, radiology results, discussion with consultants, and monitoring for potential decompensation. Intervention performed as documented. Discharge Plan Discharge Clinical Impression: Alcoholic intoxication, RSV bronchitis Patient Disposition: Admitted As Inpatient Prescriptions: No Action albuterol sulfate 90 mcg/actuation HFA aerosol inhaler 1 puff inhalation Q4H PRN (Reason: Shortness Of Breath Or Wheezing) Eliquis 5 mg tablet 5 mg PO BID Combivent Respimat 20-100 mcg/actuation mist 1 puff inhalation QID PRN (Reason: Shortness Of Breath) levofloxacin 500 mg tablet 500 mg PO DAILY Qty: 3 0RF doxycycline monohydrate 100 mg tablet 100 mg PO BID Qty: 20 0RF Print Language: Occitan
[2023-06-07 22:45] VITALS: PULSE 100; RESP 19; TEMP 36.5; O2SAT 92; BMI 30.4
[2023-06-07 22:47] VITALS: BP 107/59; PULSE 83; RESP 16; TEMP 36.5; O2SAT 90; BMI 20.5
[2023-06-07 22:59] VITALS: PULSE 79; RESP 18; O2SAT 92
[2023-06-07] MEDS: Albuterol Sulfate (0.083%) 2.5 MG/3 ML VIAL.NEB 5 MG INHALE (22:59)
[2023-06-07] MEDS: predniSONE 20 MG TABLET 60 MG PO (23:02)
[2023-06-07 23:18] VITALS: O2SAT 78
--- NOTE | 2023-06-07 23:20 | ECG_ITS ---
Test Reason : CP Blood Pressure : / mmHG Vent. Rate : 073 BPM Atrial Rate : 073 BPM P-R Int : 132 ms QRS Dur : 128 ms QT Int : 426 ms P-R-T Axes : 059 -70 048 degrees QTc Int : 469 ms Normal sinus rhythm Right bundle branch block Left anterior fascicular block Bifascicular block Abnormal ECG When compared with ECG of 04-JUN-2023 23:43, No significant change was found Referred By: Yamel Bradley Electronically Signed By:Michael Alejandra
--- NOTE | 2023-06-07 23:25 | PC.NURSE ---
MD Bradley at bedside for eval as pt desatted to 78% with a good pleth while asleep. discussing plan for admission with pt. requesting pt -> O2 via NC @ 2 lpm. Pt speaking full sentences, denies SOB. Primary RN notified.
[2023-06-08] VITALS (10 sets, daily range): BP systolic 108–148; BP diastolic 52–73; PULSE 78–108; RESP 18–22; TEMP 36.4–36.7; O2SAT 90–96
--- NOTE | 2023-06-08 00:56 | PC.NURSE ---
Multiple failed attempts at obtaining an IV line and drawing labs. Provider aware.
[2023-06-08 02:37] LABS: Basophils Percent Auto 0.2 % (0-2); Eosinophils Percent Auto 0.2 % (0-4); Hematocrit 35.1 % (42.0-52.0); Hemoglobin 11.7 g/dl (14.0-18.0); Imm Gran Abs Auto 0.02 X10*3/uL (0.00-0.03); Imm Gran Pct Auto 0.4 % (0.0-0.4); Lymphocytes Absolute Auto 0.4 X10*3/uL (1.2-4.9); Lymphocytes Percent Auto 8.7 % (20-40); MANUAL DIFF FLAG NO; Mean Corpuscular HGB Conc 33.3 g/dl (31.0-36.0); Mean Corpuscular Hemoglobin 28.5 pg (27.0-33.0); Mean Corpuscular Volume 85.4 fL (80.0-98.0); Mean Platelet Volume 9.5 fL (9.4-12.4); Monocytes Absolute Auto 0.1 X10*3/uL (0.1-1.2); Monocytes Percent Auto 1.2 % (2-11); Neutrophils Absolute Auto 4.3 x10*3/uL (2.0-8.3); Neutrophils Percent Auto 89.3 % (45-73); Platelet Count 155 X10*3/uL (160-400); Red Blood Count 4.11 X10*6/uL (4.60-5.80); Red Cell Distribution Width 14.6 % (11.0-16.0); White Blood Count 4.8 X10*3/uL (4.8-10.8)
[2023-06-08] MEDS: 0.9 % Sodium Chloride 1,000 ML 999 ML IVCONT (02:48)
[2023-06-08] MEDS: cefTRIAXone sodium 1 GM in 0.9 % Sodium Chloride 50 ML IV (02:48)
[2023-06-08 03:04] LABS: Anion Gap 16 (12-20); Blood Urea Nitrogen 12 mg/dL (9-16); Calcium 9.2 mg/dL (8.4-10.2); Carbon Dioxide 27 mmol/L (22-29); Chloride 102 mmol/L (96-108); Creatinine Clr Calc Pharmacy 88.4; Estimated Glomerular Filt Rate > 60; Glucose Random 116 mg/dL (60-115); Potassium 3.9 mmol/L (3.3-5.1); Sodium 141 mmol/L (135-145)
--- NOTE | 2023-06-08 03:10 | PC.NURSE ---
Second set of BC scanned drawn before first antibiotic given but scanned after.
[2023-06-08 03:12] LABS: B Type Natriuretic Peptide 36 pg/mL (<100); Troponin-I High Sensitivity < 2.7 ng/L (<3.5-35.0)
--- NOTE | 2023-06-08 03:31 | P.HPHOSP_ITS ---
History of Present Illness Date of Service: 06/08/23 Chief Complaint: Alcohol withdrawal This is a 62-year-old male with pertinent history of alcohol use disorder, tobacco use disorder, DVT on Eliquis, COPD not on home oxygen presents to the emergency department for concerns of alcohol withdrawal.? Patient states his last drink was this morning. He presents today as he states he needs help for his alcohol use. Does endorse increased sweating, tremors and nausea. Also has been having visual hallucinations. States he wants detox. Patient does endorse wheezing and dyspnea which is worse with exertion that has been ongoing for the last 3 days. He tested positive for RSV on 06/04/2023. Nonproductive cough. Patient denies chest discomfort, palpitations, fever, chills, auditory hallucinations, nausea, vomiting, abdominal pain, changes in urinary or bowel habits..? Also smokes about a pack of cigarettes per day. Multiple previous admissions for alcohol withdrawal. In the emergency department, patient was found to be satting 78% on room air. Was placed on 2 L supplemental oxygen and started on phenobarb protocol Review of Systems 2 Constitutional: Constitutional: Reports fatigue Cardiovascular: Cardiovascular: Reports dyspnea on exertion Respiratory: Respiratory: Reports cough, Reports dyspnea on exertion and Reports wheezing Gastrointestinal: Gastrointestinal: Reports no additional gastrointestinal complaints Genitourinary: Genitourinary: Reports no additional male genitourinary complaints Neurologic: Reports tremor(s) Psychiatric: Psychiatric: Reports anxiety Endocrine: Endocrine: Reports fatigue Allergic/Immunologic: Allergic/Immunologic: Reports wheezing PMFSH Medical History Alcohol withdrawal Alcohol dependence Presence of IVC filter Acute and chronic respiratory failure with hypoxia COPD (chronic obstructive pulmonary disease) Alcohol use disorder, severe, dependence Tobacco abuse Subdural hematoma DVT (deep venous thrombosis) COPD (chronic obstructive pulmonary disease) Asthma Neuropathy Alcohol abuse Social History Household Members: None Housing: House Do you presently have visiting nurse or other home services: No Alcohol intake: current Alcohol intake frequency: 3 or more drinks per day Alcohol type: hard liquor Comment: pt refuses high fall risk interventions Patient Tobacco Use Status: Current everyday Tobacco user Tobacco use type: Cigarette Cigarette Packs Per Day: 1 Cigarettes Per Day: 20.0 e-Cigarette/Vaping Use: Never Used Second Hand Smoke Exposure: No Substance Use Type: Marijuana Advance Directives: Yes Advance Directives on File: Yes Advance Directives Date on File: 03/05/22 service: No Current occupational status: disabled Meds Allergies Allergy/AdvReac Type Severity Reaction Status Date / Time Peanut Butter Allergy Facial Verified 06/07/23 22:48 Swelling raspberry Allergy Facial Verified 06/07/23 22:48 Swelling Active Medications: Current Medications Thiamine HCl 100 mg/ Sodium (Chloride) 101 mls @ 202 mls/hr IV ONCE ONE Stop: 06/08/23 03:58 Pharmacy Consult (Consult Rx Etoh Phenob Im/Po) 1 each MISCELLANE ONCE PRN; Protocol PRN Reason: Consult order Thiamine HCl (Thiamine Hcl 100 Mg Tablet) 100 mg PO DAILY NOHEMI Home Medications ?Medication ?Instructions ?Recorded ?Confirmed ?Last Taken ?Type albuterol sulfate 90 mcg/actuation 1 puff inhalation Q4H PRN 08/29/22 10/07/22 10/07/22 History aerosol inhaler Shortness Of Breath Or Wheezing apixaban 5 mg tablet (Eliquis) 5 mg PO BID 08/29/22 10/07/22 10/07/22 History ipratropium 20 mcg-albuterol 100 1 puff inhalation QID PRN 08/29/22 10/08/22 1 Day Ago History mcg/actuation mist for inhalation Shortness Of Breath ~10/07/22 (Combivent Respimat) Physical Exam 2 Vital Signs and Narrative: Vital Signs: Last Vital Signs Temp 97.8 F 06/08/23 03:11 Pulse 82 06/08/23 03:11 Resp 18 06/08/23 03:11 BP 127/66 06/08/23 03:11 Pulse Ox 95 06/08/23 03:11 O2 Del Method Room Air 06/08/23 03:11 BMI result Body Mass Index 20.5 Middle-aged male lying in bed in mild distress on supplemental oxygen Neck supple, no JVD Regular rate and rhythm, S1-S2 heard Bilateral wheezing present Abdomen soft nontender, no guarding, no rigidity Patient is awake, alert and oriented to self, place, time and person ; no focal motor deficit , tremors+ Psych: Anxious No pedal edema Results Labs 06/08/23 02:31 06/08/23 02:31 Labs: Laboratory Results - last 24 hr 06/08/23 02:31 MCV 85.4 MCH 28.5 MCHC 33.3 RDW 14.6 Plt Count 155 L MPV 9.5 Immature Gran % (Auto) 0.4 Neut % (Auto) 89.3 H Lymph % (Auto) 8.7 L Barton % (Auto) 1.2 L Eos % (Auto) 0.2 Baso % (Auto) 0.2 Lymph # (Auto) 0.4 L Barton # (Auto) 0.1 Eos # (Auto) 0.0 Baso # (Auto) 0.0 Abs Immat Gran (auto) 0.02 Absolute Neuts (auto) 4.3 Absolute Nucleated RBC 0.000 Nucleated RBC % (auto) 0.0 Anion Gap 16 Estim Creat Clear Calc 88.4 Estimated GFR > 60 Random Glucose 116 H Lactic Acid 3.0 H* Calcium 9.2 Troponin I High Sens < 2.7 B-Natriuretic Peptide 36 Imaging Radiologist's Impressions: Impressions Chest X-Ray 06/07/23 22:55 IMPRESSION: No acute cardiopulmonary process. Assessment and Plan (1) RSV bronchitis: Status: Acute (2) Alcoholic intoxication: Status: Acute Plan This is a 61-year-old male with pertinent history of alcohol use disorder, tobacco use disorder, DVT on Eliquis, COPD on home oxygen presents to the emergency department for concerns of alcohol withdrawal. #. Acute hypoxemic respiratory failure due to RSV leading to acute exacerbation of COPD: Will admit patient with supplemental oxygen. Initiating IV steroids. Scheduled and p.r.n. DuoNebs. No bacterial superinfection, defer antibiotics #. Acute lactic acidosis due to hypoxia. No sepsis #.? Alcohol use disorder:? Initiating thiamine.? Initiated phenobarb protocol for withdrawal, monitor CIWA. Addiction team consulted. #.? History of DVT on Eliquis #.? Tobacco use disorder:? Refused nicotine patch Med rec pending DVT prophylaxis:? On Eliquis Full code Regular diet Admit as inpatient and will require two night minimum hospital stay for supplemental oxygen, IV steroids (as above), which is not possible in a lesser acute setting. Quality Stroke Does the patient have a stroke diagnosis?: No VTE Prior VTE?: No VTE Risk Level:: Medical - moderate - high VTE Device Contraindication: Treatment Not Indicated VTE Drug Contraindication: N/A - Med Ordered
[2023-06-08] MEDS: Azithromycin 500 MG in 0.9 % Sodium Chloride 250 ML 125 MG IV (04:17)
[2023-06-08] MEDS: Thiamine HCL 100 MG in 0.9 % Sodium Chloride 100 ML 202 MG IV (04:18)
[2023-06-08 04:36] LABS: Reflex Lactate? Lactic Acid Added
[2023-06-08] MEDS: PHENobarbitaL sodium 130 MG/ML IM ONCE 292 MG IM (04:46)
[2023-06-08 05:04] LABS: Basophils Percent Auto 0.3 % (0-2); Hemoglobin 10.8 g/dl (14.0-18.0); Imm Gran Abs Auto 0.01 X10*3/uL (0.00-0.03); Imm Gran Pct Auto 0.3 % (0.0-0.4); Lymphocytes Absolute Auto 0.3 X10*3/uL (1.2-4.9); MANUAL DIFF FLAG SCAN; Mean Corpuscular HGB Conc 32.7 g/dl (31.0-36.0); Mean Corpuscular Hemoglobin 28.1 pg (27.0-33.0); Mean Corpuscular Volume 85.9 fL (80.0-98.0); Mean Platelet Volume 9.4 fL (9.4-12.4); Monocytes Absolute Auto 0.1 X10*3/uL (0.1-1.2); Monocytes Percent Auto 1.4 % (2-11); Neutrophils Absolute Auto 3.2 x10*3/uL (2.0-8.3); Platelet Count 136 X10*3/uL (160-400); Red Blood Count 3.84 X10*6/uL (4.60-5.80); Red Cell Distribution Width 14.8 % (11.0-16.0); SCAN SMEAR FLAG 1; White Blood Count 3.6 X10*3/uL (4.8-10.8)
[2023-06-08 05:16] LABS: Anion Gap 14 (12-20); Blood Urea Nitrogen 11 mg/dL (9-16); Calcium 8.5 mg/dL (8.4-10.2); Carbon Dioxide 25 mmol/L (22-29); Chloride 106 mmol/L (96-108); Creatinine Clr Calc Pharmacy 97.5; Estimated Glomerular Filt Rate > 60; Glucose Random 127 mg/dL (60-115); Potassium 4.4 mmol/L (3.3-5.1); Sodium 141 mmol/L (135-145); ~Lactic Acid-LAB USE ONLY 2.4 mmol/L (0.5-2.0)
--- NOTE | 2023-06-08 05:18 | PC.NURSE ---
Critical result received: Lactic acid 2.4 [place] text sent to Dr. Pryor. No new orders received.
[2023-06-08 05:26] LABS: SLIDE REVIEW VERIFIED
[2023-06-08 07:01] LABS: Reflex Lactate? 2 Y
[2023-06-08] MEDS: methylPREDNISolone Sod Succ 40 MG/ML VIAL IVPUSH ×2 (07:14→20:54)
[2023-06-08] MEDS: PHENobarbitaL sodium 130 MG/ML VIAL IM Q3Hx2 219 MG IM ×2 (07:14→11:27)
[2023-06-08] MEDS: Thiamine HCL 100 MG TABLET PO (07:14)
[2023-06-08] MEDS: 0.9 % Sodium Chloride Flush 3 ML SYRINGE IVFLUSH ×2 (07:15→16:43)
[2023-06-08] MEDS: Albuterol/Iprat 2.5/0.5MG 3 ML AMPUL.NEB INHALE ×3 (07:25→14:37)
[2023-06-08 07:44] LABS: ~Lactic Acid-LAB USE ONLY 2.2 mmol/L (0.5-2.0)
--- NOTE | 2023-06-08 07:47 | PM.EVENT ---
Event Note Date of Service: 06/08/23 Event Note: This is a 61-year-old male with pertinent history of alcohol use disorder, tobacco use disorder, DVT on Eliquis, COPD on home oxygen presents to the emergency department for concerns of alcohol withdrawal. Acute hypoxemic respiratory failure due to RSV leading to acute exacerbation of COPD supplemental oxygen. IV steroids. Scheduled and p.r.n. DuoNebs. No bacterial superinfection, defer antibiotics Acute lactic acidosis due to hypoxia No sepsis Alcohol use disorder thiamine.? phenobarb protocol for withdrawal Addiction team consulted. History of DVT on Eliquis Tobacco use disorder Refused nicotine patch DVT prophylaxis:? On Eliquis Attending Dr. West Full code Admit as inpatient and will require two night minimum hospital stay for supplemental oxygen, IV steroids (as above), which is not possible in a lesser acute setting. Time Spent With Patient Time: Total time managing care of this patient today ____ minutes.
--- NOTE | 2023-06-08 08:57 | PHA.MEDREC ---
Pharmacy Consult ? Medication Reconciliation Pharmacy has completed the medication reconciliation. Patient reports taking Eliquis and an antidepressant despite claim history being outdated; admits to being poorly compliant.
--- NOTE | 2023-06-08 10:15 | MHC.CM.PN ---
Attempted to meet with patient in regards to discharge planning. Patient currently sleeping. No family present. Will attempt to meet again. Continue to monitor for d/c needs.
[2023-06-08] MEDS: Acetaminophen 325 MG TABLET 650 MG PO (16:43)
--- NOTE | 2023-06-08 17:15 | PC.NURSE ---
this rn assumed care of pt @ 1500. pt medicated for foot discomfort with prn tylenol ciwa of 5 pt provided with ashley urbina per request
[2023-06-08] MEDS: PHENobarbitaL 15 MG TABLET 45 MG PO (20:53)
[2023-06-08] MEDS: Apixaban 5 MG TABLET PO (20:54)
--- NOTE | 2023-06-09 07:04 | HO.PM.IMPN ---
Subjective Subjective Date of Service: 06/09/23 Review of Systems Follow up resp failure and ETOH Physical Exam Vital Signs: Vital Signs: Last Vital Signs Temp 98.1 F 06/08/23 18:42 Pulse 91 06/08/23 18:42 Resp 18 06/08/23 18:42 BP 148/72 H 06/08/23 18:42 Pulse Ox 96 06/08/23 18:42 O2 Del Method Room Air 06/08/23 18:42 O2 Flow Rate 2 06/08/23 11:25 BMI result Body Mass Index 20.5 Appearing in no acute distress lung sounds are clear to auscultation heart regular rate rhythm, clear S1, S2 positive bowel sounds, abdomen is soft, nontender neuro patient is alert x3, no focal deficits Objective Data Active Medications Acetaminophen (Acetaminophen 325 Mg Tablet) 650 mg PO Q6H PRN PRN Reason: Pain, Mild (Pain Scale 1-3) Last Admin: 06/08/23 16:43 Dose: 650 mg Documented By: CHARLIE Albuterol/Ipratropium (Albuterol/Iprat 2.5/0.5mg 3 Ml Ampul.Neb) 3 ml INHALE RQ4H WHILE AWAKE [facility] Last Admin: 06/08/23 19:48 Dose: Not Given Documented By: BLAS Non-Admin Reason: Patient Refused Albuterol/Ipratropium (Albuterol/Iprat 2.5/0.5mg 3 Ml Ampul.Neb) 3 ml INHALE Q4H PRN PRN Reason: Wheezing Apixaban (Apixaban 5 Mg Tablet) 5 mg PO BID [facility] Last Admin: 06/08/23 20:54 Dose: 5 mg Documented By: KAREEM Folic Acid (Folic Acid 1 Mg Tablet) 1 mg PO DAILY [facility] Melatonin (Melatonin 3 Mg Tablet) 6 mg PO BEDTIME PRN PRN Reason: Insomnia Methylprednisolone Sodium Succinate (Methylprednisolone Sod Succ 40 Mg/Ml Vial) 40 mg IVPUSH Q12H [facility] Last Admin: 06/08/23 20:54 Dose: 40 mg Documented By: KAREEM Ondansetron HCl (Ondansetron Hcl 4 Mg/2 Ml Vial) 4 mg IVPUSH Q8H PRN PRN Reason: Nausea and Vomiting Pharmacy Consult (Consult Rx Etoh Phenob Im/Po) 1 each MISCELLANE ONCE PRN; Protocol PRN Reason: Consult order Phenobarbital (Phenobarbital 15 Mg Tablet) 45 mg PO BID [facility] Stop: 06/10/23 09:01 Last Admin: 06/08/23 20:53 Dose: 45 mg Documented By: KAREEM Phenobarbital (Phenobarbital 30 Mg Tablet) 30 mg PO BID [facility] Stop: 06/12/23 09:01 Phenobarbital (Phenobarbital 15 Mg Tablet) 15 mg PO DAILY [facility] Stop: 06/14/23 09:01 Sertraline HCl (Sertraline Hcl 100 Mg Tablet) 100 mg PO DAILY [facility] Sodium Chloride (0.9 % Sodium Chloride Flush 3 Ml Syringe) 3 ml IVFLUSH QSHIFT [facility] Last Admin: 06/09/23 00:13 Dose: Not Given Documented By: KAREEM Non-Admin Reason: IV Running Thiamine HCl (Thiamine Hcl 100 Mg Tablet) 100 mg PO DAILY [facility] Last Admin: 06/08/23 07:14 Dose: 100 mg Documented By: COOPEGrady Labs 06/08/23 04:47 06/08/23 04:47 Labs: Laboratory Results - last 24 hr 06/08/23 07:20 Lactic Acid F/U @ 4Hr 2.2 H* Microbiology Microbiology Results: Microbiology 06/08/23 02:52 Blood Culture - Preliminary Blood - Venous No growth after 24 hours. 06/08/23 02:31 Blood Culture - Preliminary Blood - Venous No growth after 24 hours. Assessment and Plan Plan This is a 61-year-old male with pertinent history of alcohol use disorder, tobacco use disorder, DVT on Eliquis, COPD on home oxygen presents to the emergency department for concerns of alcohol withdrawal. Acute hypoxemic respiratory failure due to RSV leading to acute exacerbation of COPD supplemental oxygen. IV steroids. Scheduled and p.r.n. DuoNebs. No bacterial superinfection, defer antibiotics Acute lactic acidosis due to hypoxia No sepsis Alcohol use disorder thiamine.? phenobarb protocol for withdrawal Addiction team consulted. History of DVT on Eliquis Tobacco use disorder Refused nicotine patch DVT prophylaxis:? On Eliquis Attending Dr. West Full code Admit as inpatient and will require two night minimum hospital stay for supplemental oxygen, IV steroids (as above), which is not possible in a lesser acute setting. Quality Stroke Does the patient have a stroke diagnosis?: No VTE Prior VTE?: No VTE Risk Level:: Medical - moderate - high VTE Device Contraindication: Treatment Not Indicated VTE Drug Contraindication: N/A - Med Ordered
[2023-06-09 07:09] VITALS: BP 114/69; PULSE 57; RESP 16; TEMP 36.4; O2SAT 95
[2023-06-09 07:22] LABS: Anion Gap 11 (12-20); Blood Urea Nitrogen 14 mg/dL (9-16); Calcium 9.6 mg/dL (8.4-10.2); Carbon Dioxide 30 mmol/L (22-29); Chloride 100 mmol/L (96-108); Creatinine Clr Calc Pharmacy 86.1; Estimated Glomerular Filt Rate > 60; Glucose Random 152 mg/dL (60-115); Potassium 4.4 mmol/L (3.3-5.1); Sodium 137 mmol/L (135-145)
--- NOTE | 2023-06-09 09:08 | MHC.EDTECH ---
Pt given supplies for mouth care, able to do on his own
--- NOTE | 2023-06-09 10:21 | P.DS_ITS ---
DS: Providers Provider Date of Service: 06/09/23 Date of admission: 06/08/23 03:30 Primary care physician: Cristhian Delgado MD Consults: 06/08/23 03:29 Addiction Medicine Routine Consulting Provider: Addiction Covering Reason for consultation: alcohol use disorder DS: Diagnosis Discharge Diagnosis (1) RSV bronchitis: Status: Acute (2) Alcoholic intoxication: Status: Acute DS: Summary Hospital Course Hospital Course: History and physical as per admitting provider. This is a 62-year-old male with pertinent history of alcohol use disorder, tobacco use disorder, DVT on Eliquis, COPD not on home oxygen presents to the emergency department for concerns of alcohol withdrawal.? Patient states his last drink was this morning. He presents today as he states he needs help for his alcohol use. Does endorse increased sweating, tremors and nausea. Also has been having visual hallucinations. States he wants detox. Patient does endorse wheezing and dyspnea which is worse with exertion that has been ongoing for the last 3 days. He tested positive for RSV on 06/04/2023. Nonproductive cough. Patient denies chest discomfort, palpitations, fever, chills, auditory hallucinations, nausea, vomiting, abdominal pain, changes in urinary or bowel habits..? Also smokes about a pack of cigarettes per day. Multiple previous admissions for alcohol withdrawal. In the emergency department, patient was found to be satting 78% on room air. Was placed on 2 L supplemental oxygen and started on phenobarb protocol 62-year-old man treated for acute hypoxemic respiratory failure secondary to RSV and acute COPD exacerbation. Treated with IV steroids, scheduled DuoNebs. No bacterial superinfection therefore antibiotics were deferred. He was also treated for alcohol withdrawal with phenobarbital protocol, thiamine and folic acid. Discussed the importance of cessation of alcohol and tobacco. Plan is for discharge home with steroid taper. History of DVT. Continue Eliquis Alcohol use disorder. Discussed the importance of alcohol cessation, patient may reach out for community supports. Time Attestation Discharge Coordination Time (in mins): 35 Quality: Safe Use of Opioids Does Pt have an Active Cancer Diagnosis on the Problem List?: No Quality: Stroke Does the patient have a stroke diagnosis?: No Physical Exam Vital Signs: Vital Signs: Last Vital Signs Temp 97.5 F 06/09/23 07:09 Pulse 57 06/09/23 07:09 Resp 16 06/09/23 07:09 BP 114/69 06/09/23 07:09 Pulse Ox 95 06/09/23 07:09 O2 Del Method Nasal Cannula 06/09/23 07:09 O2 Flow Rate 2 06/09/23 07:09 BMI result Body Mass Index 20.5 Appearing in no acute distress head is normocephalic atraumatic eyes pupils are PERRLA sclera is anicteric mouth throat mucous membranes are intact and moist neck is supple no lymphadenopathy, no JVD noted lung sounds are clear to auscultation heart regular rate rhythm, clear S1, S2 positive bowel sounds, abdomen is soft, nontender neuro patient is alert x3, no focal deficits DS: Data Data Completed and Pending Completed studies during hospitalization [Text1]: Procedures Detoxification Services for Substance Abuse Treatment (10/07/22) Excision of Buttock Subcutaneous Tissue and Fascia, Open Approach (10/07/22) Labs on day of discharge: Laboratory Results - last 24 hr 06/09/23 04:59 Sodium 137 Potassium 4.4 Chloride 100 Carbon Dioxide 30 H Anion Gap 11 L BUN 14 Creatinine 0.77 Estim Creat Clear Calc 86.1 Estimated GFR > 60 Random Glucose 152 H Calcium 9.6 D Preliminary micro results at discharge 06/08/23 02:52 Blood Culture - Preliminary Blood - Venous No growth after 24 hours. 06/08/23 02:31 Blood Culture - Preliminary Blood - Venous No growth after 24 hours. Discharge Plan Discharge Anticipated Discharge Date/Time: 06/09/23 10:17 Patient Disposition: Home, Self-Care Discharge Diagnosis: Acute hypoxemic respiratory failure RSV COPD exacerbation Alcohol use disorder Discharge Medications: New thiamine mononitrate (vit B1) 100 mg Tablet 100 mg PO DAILY Qty: 90 0RF prednisone 10 mg tablet See Taper PO DIRECTED Qty: 20 0RF Taper: Prednisone 40 mg daily for 2 Days and 0 Hour 30 mg daily for 2 Days and 0 Hour 20 mg daily for 2 Days and 0 Hour 10 mg daily for 2 Days and 0 Hour Rx Instructions: see taper instructions Continued Eliquis 5 mg tablet 5 mg PO BID sertraline 100 mg tablet 100 mg PO DAILY folic acid 1 mg tablet 1 mg PO DAILY hydroxyzine pamoate 25 mg capsule 25 - 50 mg PO TID PRN (Reason: Anxiety) Discharge Orders: Discharge Order (Routine); Ordered 06/09/23 Ordered By: Katharina Grimes Diet: Advance to usual diet Activity on Discharge: As tolerated Stand Alone Forms: Patient Portal Discharge page Print Language: Faroese Care Plan Goals: Seek support in the community to help with alcohol cessation as well as tobacco cessation Health Concerns: Acute hypoxemic respiratory failure RSV COPD exacerbation Alcohol use disorder Plan of Treatment: Follow-up with primary care provider as needed Take all medications as prescribed Assessment: See discharge summary
[2023-06-09 10:39] VITALS: BP 00/00; PULSE 0; RESP 0; TEMP -17.7; TEMP 0; O2SAT 0
--- NOTE | 2023-06-09 12:23 | PM.EVENT ---
Event Note Date of Service: 06/09/23 Event Note: Addiction consult placed Patient discharged--not seen Time Spent With Patient Time: Total time managing care of this patient today ____ minutes.
== END 2023-06-09 12:59 | disposition home or self-care (01) | DRG 190 ==
LOC: HO.ED 06-08 03:34 → HO.EDOVER 06-08 04:18 → HO.S3 06-09 09:03 → HO.EDOVER 06-09 10:23
PROVIDERS: Admitting Provider Student in an Organized Health Care Education/Training Program; Emergency Provider Emergency Medicine; PCP Internal Medicine; Visit Provider Nurse Practitioner Acute Care
DX: J44.0 Chronic obstructive pulmonary disease with (acute) lower respiratory infection (principal); J96.01 Acute respiratory failure with hypoxia; E87.21 Acute metabolic acidosis; F10.239 Alcohol dependence with withdrawal, unspecified; J20.5 Acute bronchitis due to respiratory syncytial virus; J44.1 Chronic obstructive pulmonary disease with (acute) exacerbation; F10.229 Alcohol dependence with intoxication, unspecified; F17.210 Nicotine dependence, cigarettes, uncomplicated; Z71.6 Tobacco abuse counseling; Z86.718 Personal history of other venous thrombosis and embolism; Z79.01 Long term (current) use of anticoagulants; Z79.899 Other long term (current) drug therapy
CPT/HCPCS: 36415; 71045; 80048; 83605; 83880; 84484; 85025; 87040; 93005; 94640; 99285; J0456; J0696; J2560; J2920; J3411

== ENCOUNTER → 2023-06-07 22:50 | Outpatient (BNV) | payer OTHER, SELFPAY | PROVIDERS: Emergency Provider Emergency Medicine; Visit Provider Student in an Organized Health Care Education/Training Program | DX: J20.5 Acute bronchitis due to respiratory syncytial virus (principal); F10.929 Alcohol use, unspecified with intoxication, unspecified | CPT/HCPCS: 99223; 99239; 99499 ==

== ENCOUNTER → 2023-06-07 23:20 | Outpatient (BNV) | payer OTHER, SELFPAY | PROVIDERS: Admitting Provider Student in an Organized Health Care Education/Training Program; Emergency Provider Emergency Medicine; Visit Provider Internal Medicine Cardiovascular Disease | DX: R94.31 Abnormal electrocardiogram [ECG] [EKG] (principal); R07.9 Chest pain, unspecified | CPT/HCPCS: 93010 ==

== ENCOUNTER 2023-06-09 21:39 | Emergency (ER) | payer OTHER, SELFPAY ==
--- NOTE | ~2023-06-09 | CT_ITS ---
EXAMINATION: CT HEAD WITHOUT CONTRAST CT CERVICAL SPINE WITHOUT CONTRAST CLINICAL INFORMATION: Fall. Pain. COMPARISON: None available. TECHNIQUE: Contiguous axial imaging was performed through the head and cervical spine without intravenous administration of contrast. Sagittal and coronal reformatted images also obtained. This CT examination was performed using dose optimization techniques as appropriate, variously including the following: *Automated exposure control *Adjustment of mA and/or kV according to patient size (this includes techniques or standardized protocols for targeted exams where dose is matched to indication/reason for exam; i.e. extremities or head) *Use of iterative reconstruction technique DLP: 1057 mGy-cm FINDINGS: There is cerebral volume loss with prominence of the lateral and the third ventricles. The cortical sulci are widened appropriately. The fourth ventricle and basal cisterns are normally outlined. There is right frontal encephalomalacia. There is mild bilateral periventricular and central white matter diminished attenuation. There is no acute territorial defect, or midline shift. Calvarium: A right frontal craniectomy is again noted. Maxillofacial sinuses and mastoids: There are ethmoid, bilateral maxillary and right sphenoid sinus opacities. The mastoids are clear. Cervical spine: The alignment is normal. There is [id number] C5-C6 disc degenerative change and mild disc degenerative change throughout the remaining cervical spine with loss of disc space, endplate change and posterior osteophytes associated with diffuse mild facet osteoarthritic hypertrophic change with multilevel mild spinal canal and multilevel mild neuroforaminal narrowing. No acute fracture is seen. The soft tissues are unremarkable. Visualized upper lung lucas are clear. CT/CT cervical spine wo IV con IMPRESSION: CT HEAD: 1. No acute intracranial abnormality. 2. There is paranasal sinus disease. CT CERVICAL SPINE: 1. There is multilevel cervical spondylosis. 2. No acute fracture or dislocation.
--- NOTE | ~2023-06-09 | CT_ITS ---
EXAMINATION: CT HEAD WITHOUT CONTRAST CT CERVICAL SPINE WITHOUT CONTRAST CLINICAL INFORMATION: Fall. Pain. COMPARISON: None available. TECHNIQUE: Contiguous axial imaging was performed through the head and cervical spine without intravenous administration of contrast. Sagittal and coronal reformatted images also obtained. This CT examination was performed using dose optimization techniques as appropriate, variously including the following: *Automated exposure control *Adjustment of mA and/or kV according to patient size (this includes techniques or standardized protocols for targeted exams where dose is matched to indication/reason for exam; i.e. extremities or head) *Use of iterative reconstruction technique DLP: 1057 mGy-cm FINDINGS: There is cerebral volume loss with prominence of the lateral and the third ventricles. The cortical sulci are widened appropriately. The fourth ventricle and basal cisterns are normally outlined. There is right frontal encephalomalacia. There is mild bilateral periventricular and central white matter diminished attenuation. There is no acute territorial defect, or midline shift. Calvarium: A right frontal craniectomy is again noted. Maxillofacial sinuses and mastoids: There are ethmoid, bilateral maxillary and right sphenoid sinus opacities. The mastoids are clear. Cervical spine: The alignment is normal. There is [id number] C5-C6 disc degenerative change and mild disc degenerative change throughout the remaining cervical spine with loss of disc space, endplate change and posterior osteophytes associated with diffuse mild facet osteoarthritic hypertrophic change with multilevel mild spinal canal and multilevel mild neuroforaminal narrowing. No acute fracture is seen. The soft tissues are unremarkable. Visualized upper lung lucas are clear. CT/CT head/brain wo IV con IMPRESSION: CT HEAD: 1. No acute intracranial abnormality. 2. There is paranasal sinus disease. CT CERVICAL SPINE: 1. There is multilevel cervical spondylosis. 2. No acute fracture or dislocation.
[2023-06-09 21:54] VITALS: BP 112/70; PULSE 108; O2SAT 95; BMI 22.0
[2023-06-09 22:01] VITALS: BP 99/65; PULSE 83; RESP 17; TEMP 36.8; O2SAT 94
[2023-06-09 22:07] VITALS: BP 99/65; PULSE 83; RESP 18; TEMP 36.8; O2SAT 94
--- NOTE | 2023-06-09 23:27 | ED.ALCOHOL ---
HPI - Alcohol General Chief Complaint: Fall Stated Complaint: ETOH,FELL AND HIT HEAD Time Seen by Provider: 06/09/23 22:45 Source: patient Mode of arrival: EMS Limitations: no limitations History of Present Illness HPI narrative: Patient with history of alcohol abuse been here multiple times was at [facility] earlier today while waiting for the EMS patient fell hitting his head to the ground with slight abrasion to the left ear no loss of consciousness no seizures Related Data Home Medications ?Medication ?Instructions ?Recorded ?Confirmed apixaban 5 mg tablet (Eliquis) 5 mg PO BID 08/29/22 06/08/23 folic acid 1 mg tablet 1 mg PO DAILY 06/08/23 06/08/23 hydroxyzine pamoate 25 mg capsule 25 - 50 mg PO TID PRN Anxiety 06/08/23 06/08/23 sertraline 100 mg tablet 100 mg PO DAILY 06/08/23 06/08/23 Previous Rx's ?Medication ?Instructions ?Recorded prednisone 10 mg tablet See Taper PO DIRECTED #20 tabs 06/09/23 thiamine mononitrate (vit B1) 100 100 mg PO DAILY #90 tabs 06/09/23 mg tablet Allergies Allergy/AdvReac Type Severity Reaction Status Date / Time Peanut Butter Allergy Facial Verified 06/09/23 22:06 Swelling raspberry Allergy Facial Verified 06/09/23 22:06 Swelling Review of Systems Review of Systems: Yes all other systems are reviewed and are negative PMFSH Past Medical History Medical History Alcohol withdrawal Alcohol dependence Presence of IVC filter Acute and chronic respiratory failure with hypoxia COPD (chronic obstructive pulmonary disease) Alcohol use disorder, severe, dependence Tobacco abuse Subdural hematoma DVT (deep venous thrombosis) COPD (chronic obstructive pulmonary disease) Asthma Neuropathy Alcohol abuse Social History Social History Household Members: None Housing: House Do you presently have visiting nurse or other home services: No Alcohol intake: current Alcohol intake frequency: 3 or more drinks per day Alcohol type: hard liquor Comment: pt refuses high fall risk interventions Patient Tobacco Use Status: Current everyday Tobacco user Tobacco use type: Cigarette Cigarette Packs Per Day: 1 Cigarettes Per Day: 20.0 Smoked in Last 30 Days: Yes e-Cigarette/Vaping Use: Never Used Second Hand Smoke Exposure: No Use of substances other than those prescribed or required for medical reasons: No Substance Use Type: Marijuana Advance Directives: Yes Advance Directives on File: Yes Advance Directives Date on File: 03/05/22 service: No Current occupational status: disabled Physical Exam ED Vital Signs: Vital Signs - 24 hr 06/09/23 22:01 06/09/23 22:07 Temperature 98.3 F 98.3 F Pulse Rate 83 83 Respiratory Rate 17 18 Blood Pressure 99/65 99/65 Pulse Oximetry 94 94 Oxygen Delivery Method Room Air BMI result Body Mass Index 22.0 Appearance: Alert. Oriented X3. No acute distress. Eyes: PERRLA, No Nystagmus ENT: Pharynx normal. Oral Mucosa moist superficial abrasion left ear pinna Neck: Normal inspection. Neck supple. Diffuse tenderness paraspinal area CVS: Normal heart rate and rhythm. Pulses normal. Respiratory: No respiratory distress. Equal air entry bilateral, no wheezing/rales/rhonchi Abdomen: Soft and nontender. Bowel sounds are present, no mass palpable, no CVA tenderness Skin: Skin warm and dry. Normal skin color. Normal skin turgor. Extremities: No lower extremity edema. No calf tenderness Neuro: Oriented X 3. No motor deficit. No sensory deficit.No cerebellar signs , cranial nerves II-XII intact Medical Decision Making Medical Decision Making MDM Narrative: Patient is walking in steady gait denies any depression or SI head CT negative for acute discharge patient home patient does not want to go to detox Differential Diagnosis Differential Diagnoses: The differential diagnosis associated with the presentation includes SAH/SDH/cervical fx Independent Interpretation I performed an independent interpretation of an: CT Scan Radiology Impression Discussion of test interpretation with radiology: I have reviewed the radiologist's reading. Discharge Plan Discharge Clinical Impression: Alcohol abuse Patient Disposition: Home, Self-Care Instructions: Abuse of Alcohol (ED) Additional Instructions: Stop drinking alcohol Prescriptions: No Action Eliquis 5 mg tablet 5 mg PO BID sertraline 100 mg tablet 100 mg PO DAILY folic acid 1 mg tablet 1 mg PO DAILY hydroxyzine pamoate 25 mg capsule 25 - 50 mg PO TID PRN (Reason: Anxiety) thiamine mononitrate (vit B1) 100 mg Tablet 100 mg PO DAILY Qty: 90 0RF prednisone 10 mg tablet See Taper PO DIRECTED Qty: 20 0RF Taper: Prednisone 40 mg daily for 2 Days and 0 Hour 30 mg daily for 2 Days and 0 Hour 20 mg daily for 2 Days and 0 Hour 10 mg daily for 2 Days and 0 Hour Rx Instructions: see taper instructions Print Language: Moldovan
[2023-06-10 01:24] VITALS: BP 0/0; PULSE 0; RESP 0; TEMP -17.7; TEMP 0
== END 2023-06-10 01:25 | disposition home or self-care (01) ==
PROVIDERS: Emergency Provider Internal Medicine
DX: S00.412A Abrasion of left ear, initial encounter (principal); S09.90XA Unspecified injury of head, initial encounter; F10.10 Alcohol abuse, uncomplicated; Y90.9 Presence of alcohol in blood, level not specified; R51.9 Headache, unspecified; M54.2 Cervicalgia; F17.210 Nicotine dependence, cigarettes, uncomplicated; W01.10XA Fall on same level from slipping, tripping and stumbling with subsequent striking against unspecified object, initial encounter; Y93.9 Activity, unspecified; Y92.9 Unspecified place or not applicable; Y99.8 Other external cause status; Z79.01 Long term (current) use of anticoagulants; Z79.899 Other long term (current) drug therapy
CPT/HCPCS: 70450; 72125; 99284

== ENCOUNTER 2023-06-13 18:11 | Emergency (ER) | payer OTHER, SELFPAY ==
[2023-06-13 18:20] VITALS: BMI 25.8
--- NOTE | 2023-06-13 18:24 | ED_ITS ---
HPI - General Adult General Chief complaint: ETOH/Substance Use Stated complaint: SEEKING ALCOHOL ABUSE TREATMENT Time Seen by Provider: 06/13/23 18:24 History of Present Illness HPI narrative: The patient is a 62-year-old male who was an alcoholic. He has a long history of innumerable emergency room visits both at this hospital and other hospitals for his alcoholism. He apparently called an ambulance today saying that he wanted help with his alcoholism and that he wanted to seek detox. However as soon as he got here he said that he had made a mistake and wanted to be discharged. I therefore went to see the patient quite soon. He told me that he did not really want to be discharged he simply had said that because he wanted someone to help him. I asked him what he wanted help with. He told me he wanted help with his alcoholism. I said if that were the case we would need to do blood work and that we would likely need to keep him in the hospital overnight until he can talk to the recovery team in the morning. He then said he did not want to do any of those things and that he would prefer to be discharged Related Data Home Medications ?Medication ?Instructions ?Recorded ?Confirmed apixaban 5 mg tablet (Eliquis) 5 mg PO BID 08/29/22 06/08/23 folic acid 1 mg tablet 1 mg PO DAILY 06/08/23 06/08/23 hydroxyzine pamoate 25 mg capsule 25 - 50 mg PO TID PRN Anxiety 06/08/23 06/08/23 sertraline 100 mg tablet 100 mg PO DAILY 06/08/23 06/08/23 Previous Rx's ?Medication ?Instructions ?Recorded prednisone 10 mg tablet See Taper PO DIRECTED #20 tabs 06/09/23 thiamine mononitrate (vit B1) 100 100 mg PO DAILY #90 tabs 06/09/23 mg tablet Allergies Allergy/AdvReac Type Severity Reaction Status Date / Time Peanut Butter Allergy Facial Verified 06/13/23 18:21 Swelling raspberry Allergy Facial Verified 06/13/23 18:21 Swelling Review of Systems Review of Systems: Yes all other systems are reviewed and are negative [facility], [facility] Past Medical History Medical History Alcohol withdrawal Alcohol dependence Presence of IVC filter Acute and chronic respiratory failure with hypoxia COPD (chronic obstructive pulmonary disease) Alcohol use disorder, severe, dependence Tobacco abuse Subdural hematoma DVT (deep venous thrombosis) COPD (chronic obstructive pulmonary disease) Asthma Neuropathy Alcohol abuse Social History Social History Household Members: None Housing: House Do you presently have visiting nurse or other home services: No Alcohol intake: current Alcohol intake frequency: 3 or more drinks per day Alcohol type: hard liquor Comment: pt refuses high fall risk interventions Patient Tobacco Use Status: Current everyday Tobacco user Tobacco use type: Cigarette Cigarette Packs Per Day: 1 Cigarettes Per Day: 20.0 e-Cigarette/Vaping Use: Never Used Second Hand Smoke Exposure: No Substance Use Type: Marijuana Advance Directives: Yes Advance Directives on File: Yes Advance Directives Date on File: 03/05/22 service: No Current occupational status: disabled Physical Exam ED Vital Signs: Vital Signs - 24 hr 06/13/23 18:25 06/13/23 19:00 Temperature 97.8 F 97.8 F Pulse Rate 93 93 Respiratory Rate 18 18 Blood Pressure 101/58 L 101/58 L Pulse Oximetry 96 96 Oxygen Delivery Method Room Air Room Air BMI result Body Mass Index 25.8 Const Other: The patient is a frail looking chronically ill-appearing 62-year-old who does not appear in obvious acute distress. Does not seem obviously intoxicated. HENMT Other: Face is symmetrical. Mucous membranes moist. Eyes Other: Pupils are round equal, conjunctivae clear Neck Neck: Yes no JVD Resp Effort & Inspection: normal respiratory effort Auscultation: clear to auscultation bilaterally Cardio Rate: regular rate Rhythm: regular rhythm Heart sounds: S1 normal heart sound present and S2 normal heart sound present Skin Other: Skin is pale and dry Neuro Other: The patient is awake and alert, face is symmetrical, speech is clear, gait is slow but steady. Extrem Other: No pitting edema Medical Decision Making Medical Decision Making MDM Narrative: The patient is a 62-year-old male with a long history of alcoholism and innumerable emergency room visits related to his alcoholism. He has been to detoxes on multiple occasions over the last several years. He arrived here by ambulance claiming that he wanted help with his alcohol use disorder but as soon as he got here he seems to have changed his mind and preferred to be discharged. He was advised to follow up with his regular doctor. He also says that he has a power and recovery superintendent in [place]. He is advised to to follow up with his power and recovery superintendent. Discharge Plan Discharge Clinical Impression: Alcohol intoxication Patient Disposition: Home, Self-Care Additional Instructions: You can contact so at [phone]. They have counselors during weekdays who help people with alcohol-related issues. I would recommend calling them tomorrow at 09:00. Also please follow-up with your power and recovery superintendent Audrey Clark and also follow-up with . Prescriptions: No Action Eliquis 5 mg tablet 5 mg PO BID sertraline 100 mg tablet 100 mg PO DAILY folic acid 1 mg tablet 1 mg PO DAILY hydroxyzine pamoate 25 mg capsule 25 - 50 mg PO TID PRN (Reason: Anxiety) thiamine mononitrate (vit B1) 100 mg Tablet 100 mg PO DAILY Qty: 90 0RF prednisone 10 mg tablet See Taper PO DIRECTED Qty: 20 0RF Taper: Prednisone 40 mg daily for 2 Days and 0 Hour 30 mg daily for 2 Days and 0 Hour 20 mg daily for 2 Days and 0 Hour 10 mg daily for 2 Days and 0 Hour Rx Instructions: see taper instructions Referrals: Cristhian Delgado MD [Physician] - (Alcoholism) Interventions: ED Discharge Assessment Last Done: 06/13/23 19:00 Discharge Date/Time: 06/13/23 19:00 Print Language: Welsh
[2023-06-13 18:25] VITALS: BP 101/58; PULSE 93; RESP 18; TEMP 36.6; O2SAT 96
--- NOTE | 2023-06-13 18:27 | PC.NURSE ---
Pt able to ambulate with steady gait
[2023-06-13 19:00] VITALS: BP 101/58; PULSE 93; RESP 18; TEMP 36.6; O2SAT 96
== END 2023-06-13 19:00 | disposition home or self-care (01) ==
PROVIDERS: Emergency Provider Emergency Medicine
DX: F10.229 Alcohol dependence with intoxication, unspecified (principal); Y90.9 Presence of alcohol in blood, level not specified; J44.9 Chronic obstructive pulmonary disease, unspecified; Z86.718 Personal history of other venous thrombosis and embolism
CPT/HCPCS: 99282

== ENCOUNTER 2023-06-19 14:57 | Emergency (ER) | payer OTHER, SELFPAY ==
[2023-06-19 15:01] VITALS: BP 118/76; PULSE 92; O2SAT 96
[2023-06-19 15:04] VITALS: BP 122/77; PULSE 88; RESP 19; TEMP 36.6; O2SAT 98; BMI 24.1
--- NOTE | 2023-06-19 15:38 | PC.NURSE ---
Patient reports drinks 2 pints a day of souther comfort with last drink being this morning. Reports that he is looking for detox. Denies SI/HI
[2023-06-19 15:46] VITALS: BP 107/64; PULSE 72; RESP 16; TEMP 36.7; O2SAT 95
--- NOTE | 2023-06-19 15:48 | MHC.EDTECH ---
THIS PCT ASSUMED CARE OF PATIENT AT 1500 ,VITALS TAKEN ,PATIENT RESTING QUIETLY IN BED .
[2023-06-19 17:36] VITALS: BP 108/60; PULSE 89; RESP 16; TEMP 36.4; O2SAT 95
--- NOTE | 2023-06-19 17:42 | ED_ITS ---
HPI - Alcohol General Chief Complaint: ETOH/Substance Use Stated Complaint: ETOH INTOX PER EMS Time Seen by Provider: 06/19/23 16:00 Source: patient and EMS Mode of arrival: EMS Limitations: no limitations History of Present Illness HPI narrative: Patient comes to the emergency room complaining of alcohol intoxication and seeking detox. Patient has no other complaints. Patient denies any recent falls. Related Data Home Medications ?Medication ?Instructions ?Recorded ?Confirmed apixaban 5 mg tablet (Eliquis) 5 mg PO BID 08/29/22 06/08/23 folic acid 1 mg tablet 1 mg PO DAILY 06/08/23 06/08/23 hydroxyzine pamoate 25 mg capsule 25 - 50 mg PO TID PRN Anxiety 06/08/23 06/08/23 sertraline 100 mg tablet 100 mg PO DAILY 06/08/23 06/08/23 Previous Rx's ?Medication ?Instructions ?Recorded prednisone 10 mg tablet See Taper PO DIRECTED #20 tabs 06/09/23 thiamine mononitrate (vit B1) 100 100 mg PO DAILY #90 tabs 06/09/23 mg tablet Allergies Allergy/AdvReac Type Severity Reaction Status Date / Time Peanut Butter Allergy Facial Verified 06/19/23 15:07 Swelling raspberry Allergy Facial Verified 06/19/23 15:07 Swelling Review of Systems Review of Systems: Constitutional : No Weight loss, No Fever, No Chills, No Night Sweats, No Fatigue, No Malaise ENT/Mouth : No Hearing loss, No Ear Pain, No Nasal Congestion, No Sinus Pain, No Hoarseness, No sore throat, No Rhinorrhea, No Swallowing Difficulty Eyes: No Eye Pain, No Swelling, No Redness, No Foreign Body, No Discharge, No Vision Changes Cardiovascular : No Chest Pain, No SOB, No Dyspnea on Exertion, No Orthopnea, No Edema, No Palpitations Respiratory : No Cough, No Sputum, No Wheezing, No Smoke Exposure, No Dyspnea Gastrointestinal : No Nausea, No Vomiting, No Diarrhea, No Constipation, No abdominal Pain, No Hematochezia, No Melena Genitourinary : no irregular bleeding, No Dysuria, No Urinary Frequency, No Hematuria, No Urinary Incontinence, No Urgency, No Flank Pain, No Urinary Flow Changes, No Hesitancy Musculoskeletal : No joint pain, No Myalgias, No Joint Swelling Skin : No Skin Lesions, No rash Neuro : No Weakness, No Numbness, No Paresthesias, No Loss of Consciousness, No Dizziness, No Headache Psych : No Anxiety/Panic, No Depression, No SI/HI/AH/VH, admits to alcohol abuse, Heme/Lymph: No Bruising, No Bleeding,No Lymphadenopathy Endocrine : No Polyuria, No Polydipsia, No Temperature Intolerance [facility] Past Medical History Medical History Alcohol withdrawal Alcohol dependence Presence of IVC filter Acute and chronic respiratory failure with hypoxia COPD (chronic obstructive pulmonary disease) Alcohol use disorder, severe, dependence Tobacco abuse Subdural hematoma DVT (deep venous thrombosis) COPD (chronic obstructive pulmonary disease) Asthma Neuropathy Alcohol abuse Social History Social History Household Members: None Housing: House Do you presently have visiting nurse or other home services: No Alcohol intake: current Alcohol intake frequency: 3 or more drinks per day Alcohol type: hard liquor Comment: pt refuses high fall risk interventions Patient Tobacco Use Status: Current everyday Tobacco user Tobacco use type: Cigarette Cigarette Packs Per Day: 1 Cigarettes Per Day: 20.0 Smoked in Last 30 Days: Yes e-Cigarette/Vaping Use: Never Used Second Hand Smoke Exposure: No Use of substances other than those prescribed or required for medical reasons: No Substance Use Type: Marijuana Advance Directives: Yes Advance Directives on File: Yes Advance Directives Date on File: 03/05/22 service: No Current occupational status: disabled Physical Exam ED Vital Signs: Vital Signs - 24 hr 06/19/23 15:04 06/19/23 15:46 06/19/23 17:36 Temperature 98 F 98.0 F 97.6 F Pulse Rate 88 72 89 Respiratory Rate 19 16 16 Blood Pressure 122/77 107/64 108/60 Pulse Oximetry 98 95 95 Oxygen Delivery Method Room Air Room Air Room Air BMI result Body Mass Index 24.1 Const Other: Appearance: Alert. Oriented X3. No acute distress. Eyes: Pupils equal, round and reactive to light. ENT: Pharynx normal. Neck: Normal inspection. Neck supple. No lymph nodes noted. No crepitus CVS: Normal heart rate and rhythm. Pulses normal. Normal S1 and S2 Respiratory: No respiratory distress. Breath sounds normal. No Wheezing. No rales Abdomen: Soft and nontender. No rigidity. No distention. Skin: Skin warm and dry. Normal skin color. Normal skin turgor. Extremities: No lower extremity edema. No Lacerations. No Rash Neuro: Oriented X 3. No motor deficit. No sensory deficit. Moving all extremities. No slurred speech. CN 2 through 12 grossly intact Psych: calm, cooperative, normal affect coherent Course Course Course Narrative: -patient is well-known to the emergency medicine service, patient comes in frequently for alcohol intoxication. Patient request detox but usually requests to be discharged before the care team gets to talk with him. -care team consult pending -patient's labs pending -physician observation started at 17:45 Discharge Plan Discharge Clinical Impression: Alcohol abuse Patient Disposition: Still a Patient Prescriptions: No Action Eliquis 5 mg tablet 5 mg PO BID sertraline 100 mg tablet 100 mg PO DAILY folic acid 1 mg tablet 1 mg PO DAILY hydroxyzine pamoate 25 mg capsule 25 - 50 mg PO TID PRN (Reason: Anxiety) thiamine mononitrate (vit B1) 100 mg Tablet 100 mg PO DAILY Qty: 90 0RF prednisone 10 mg tablet See Taper PO DIRECTED Qty: 20 0RF Taper: Prednisone 40 mg daily for 2 Days and 0 Hour 30 mg daily for 2 Days and 0 Hour 20 mg daily for 2 Days and 0 Hour 10 mg daily for 2 Days and 0 Hour Rx Instructions: see taper instructions Print Language: Polish
--- NOTE | 2023-06-19 18:14 | MHC.EDTECH ---
PATIENT 1800 ROUNDING DONE ,VITALS TAKEN ,BLOOD DRAWN AND SENT TO LAB ,PATIENT HAD COUPLE OF SANDWICHES AND ALEC SUNDAY FOR SNACK .
[2023-06-19 18:34] LABS: Ethanol 226 mg/dL
--- NOTE | 2023-06-19 20:51 | MHC.EDTECH ---
PATIENT BELONGINGS LIST DONE ,URINE SAMPLE COLLECTED AND SENT TO LAB .
--- NOTE | 2023-06-19 21:01 | MHC.EDTECH ---
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
[2023-06-19 21:04] LABS: Amphetamine Screen Urine Not Detected (Not Detect); Barbiturates, Urine POSITIVE (Not Detect); Benzodiazepines Screen Urine Not Detected (Not Detect); Buprenorphine Scr Not Detected (Not Detect); Cannabinoid Screen Urine Not Detected (Not Detect); Cocaine Screen Urine Not Detected (Not Detect); Fentanyl, urine Not Detected (Not Detect); Methadone Screen, Urine Not Detected (Not Detect); Opiate Screen Urine Not Detected (Not Detect); Oxycodone Screen Urine Not Detected (Not Detect); Phencyclidine Screen Urine Not Detected (Not Detect)
[2023-06-19 21:56] VITALS: BP 116/69; PULSE 100; RESP 16; TEMP 36.2; O2SAT 94
--- NOTE | 2023-06-19 21:57 | MHC.EDTECH ---
2200 ,rounding done ,vitals taken ,Patient awake ,no apparent distress noted .
[2023-06-20 01:35] VITALS: BP 121/80; PULSE 95; RESP 17; TEMP 36.3; O2SAT 96
[2023-06-20 06:12] VITALS: BP 110/66; PULSE 100; RESP 16; TEMP 36.2; O2SAT 94
[2023-06-20 07:53] VITALS: BP 126/69; PULSE 102; RESP 20; TEMP 37; O2SAT 102
--- NOTE | 2023-06-20 07:53 | PC.NURSE ---
PT'S SHERIN[place] 6, DONALD ARE[employer] OPERATIONS DIRECTOR WAS MADE AWARE, NEW ORDER FOR ATIVAN.
[2023-06-20] MEDS: LORazepam 0.5 MG TABLET PO (07:59)
--- NOTE | 2023-06-20 08:01 | PC.NURSE ---
ATIVAN GIVEN ORDERED AND DOCUMENTED. WILL REASSESS.
[2023-06-20 09:03] VITALS: BP 135/86; PULSE 94; RESP 18; TEMP 36.6; O2SAT 97
--- NOTE | 2023-06-20 09:05 | PC.NURSE ---
PT SEEN BY GREY FROM CARE TEAM AND WAS GIVEN RESOURCE BOOKLET. DISCHARGE INSTRUCTIONS REVIEWED W PT. PT'S BELONGINGS RETURNED. PT AMBULATED TO THE WAITING ROOM USING HIS CANE. HE REPORTED THAT HE CALLED A CAB.
== END 2023-06-20 09:10 | disposition home or self-care (01) ==
PROVIDERS: Emergency Provider Emergency Medicine; PCP Internal Medicine
DX: F10.120 Alcohol abuse with intoxication, uncomplicated (principal); Y90.7 Blood alcohol level of 200-239 mg/100 ml; F17.210 Nicotine dependence, cigarettes, uncomplicated; Z86.718 Personal history of other venous thrombosis and embolism; Z79.01 Long term (current) use of anticoagulants; Z79.899 Other long term (current) drug therapy
CPT/HCPCS: 36415; 80307; 99284

== ENCOUNTER 2023-06-21 06:43 | Emergency (ER) | payer OTHER, SELFPAY ==
[2023-06-21 06:51] VITALS: BP 156/96; PULSE 91; O2SAT 99; BMI 25.2
--- NOTE | 2023-06-21 07:10 | ED.ALCOHOL ---
HPI - Alcohol General Chief Complaint: ETOH/Substance Use Stated Complaint: ETOH, REQUESTING DETOX Time Seen by Provider: 06/21/23 07:02 Source: patient Mode of arrival: EMS Limitations: no limitations History of Present Illness HPI narrative: 62 yo male with PMH Of cellulitis, ETOH abuse, DVT here with c/o wanting detox denies trauma SI/HI he states he has not followed up and then laughs that he was supposed to call detox. He is sitting there asking for food and detox MD complaint: desires rehab Last drink: Days (ago) Chronic alcohol use: Yes Previous visits for alcohol intoxication: Yes Recent trauma: No Associated symptoms: denies other symptoms Treatments prior to arrival: none Related Data Home Medications ?Medication ?Instructions ?Recorded ?Confirmed apixaban 5 mg tablet (Eliquis) 5 mg PO BID 08/29/22 06/08/23 folic acid 1 mg tablet 1 mg PO DAILY 06/08/23 06/08/23 hydroxyzine pamoate 25 mg capsule 25 - 50 mg PO TID PRN Anxiety 06/08/23 06/08/23 sertraline 100 mg tablet 100 mg PO DAILY 06/08/23 06/08/23 Previous Rx's ?Medication ?Instructions ?Recorded prednisone 10 mg tablet See Taper PO DIRECTED #20 tabs 06/09/23 thiamine mononitrate (vit B1) 100 100 mg PO DAILY #90 tabs 06/09/23 mg tablet Allergies Allergy/AdvReac Type Severity Reaction Status Date / Time Peanut Butter Allergy Facial Verified 06/21/23 06:53 Swelling raspberry Allergy Facial Verified 06/21/23 06:53 Swelling Review of Systems Review of Systems: Constitutional : No Fever, No Chills, No Fatigue ENT/Mouth : No sore throat, No Rhinorrhea Eyes: No Eye Pain, No Swelling, No Redness Cardiovascular : No Chest Pain, No SOB, No Dyspnea on Exertion Respiratory : No Cough, No Sputum Gastrointestinal : No Nausea, No Vomiting, No Diarrhea, No abdominal Pain Genitourinary : No Dysuria, No Urinary Frequency, No Hematuria, Musculoskeletal : No joint pain, No Myalgias, No Joint Swelling Skin : No Skin Lesions, No rash Neuro : No Weakness, No Numbness, No Dizziness, no Headache Psych : No Anxiety/Panic, No Depression All other systems reviewed and are negative [facility] Past Medical History Attestation statement: The following information was validated with the patient. Source: old records reviewed Medical History Alcohol withdrawal Alcohol dependence Presence of IVC filter Acute and chronic respiratory failure with hypoxia COPD (chronic obstructive pulmonary disease) Alcohol use disorder, severe, dependence Tobacco abuse Subdural hematoma DVT (deep venous thrombosis) COPD (chronic obstructive pulmonary disease) Asthma Neuropathy Alcohol abuse Social History Social History Household Members: None Housing: House Do you presently have visiting nurse or other home services: No Alcohol intake: current Alcohol intake frequency: 3 or more drinks per day Alcohol type: hard liquor Comment: pt refuses high fall risk interventions Patient Tobacco Use Status: Current everyday Tobacco user Tobacco use type: Cigarette Cigarette Packs Per Day: 1 Cigarettes Per Day: 20.0 e-Cigarette/Vaping Use: Never Used Second Hand Smoke Exposure: No Substance Use Type: Marijuana Advance Directives: Yes Advance Directives on File: Yes Advance Directives Date on File: 03/05/22 service: No Current occupational status: disabled Physical Exam ED Vital Signs: BMI result Body Mass Index 25.2 Appearance: Alert. Oriented X3. No acute distress. Eyes: Pupils equal, round and reactive to light. ENT: Pharynx normal. atraumatic Neck: Normal inspection. Neck supple. CVS: Normal heart rate and rhythm. Pulses normal. Respiratory: No respiratory distress. Breath sounds normal. Abdomen: Soft and nontender. Skin: Skin warm and dry. Normal skin color. Normal skin turgor. Extremities: No lower extremity edema. No calf ttp Neuro: Oriented X 3. No motor deficit. No sensory deficit. Medical Decision Making Medical Decision Making MDM Narrative: 62 yo male with PMH Of cellulitis, ETOH abuse, DVT here with c/o wanting detox but then makes note that he doesn't always show up and he was even told to call [facility] to follow up as they would have a bed and I just didn't . At this time he has a history of non-compliance with detox plans at this time he is suitable for outpatient detox bed search from home. This has been discussed and has been a plan with CARE team. Differential Diagnosis Differential Diagnoses: The differential diagnosis associated with the presentation includes alcohol abuse Admission/Observation Consideration of admission/observation: Escalation of care including admission/observation considered patient has been resourced numerous times then does not show up in detox he admits again today he was given information for [facility] and then just didn't call he is asking again for me to get him into detox then sort of laughs and at this time he is clinicall sober can be DC home and call from home as I suspect again he will not show up to detox once we find him a bed Independent Historian Clinical information obtained from an independent historian. History obtained from or confirmed by: EMS External Record Review External record reviewed: Inpatient record and Outpatient record Discharge Plan Discharge Clinical Impression: Alcohol abuse Patient Disposition: Home, Self-Care Instructions: Abuse of Alcohol (ED) Additional Instructions: please call detox centers from home we have provided a list for you Prescriptions: No Action Eliquis 5 mg tablet 5 mg PO BID sertraline 100 mg tablet 100 mg PO DAILY folic acid 1 mg tablet 1 mg PO DAILY hydroxyzine pamoate 25 mg capsule 25 - 50 mg PO TID PRN (Reason: Anxiety) thiamine mononitrate (vit B1) 100 mg Tablet 100 mg PO DAILY Qty: 90 0RF prednisone 10 mg tablet See Taper PO DIRECTED Qty: 20 0RF Taper: Prednisone 40 mg daily for 2 Days and 0 Hour 30 mg daily for 2 Days and 0 Hour 20 mg daily for 2 Days and 0 Hour 10 mg daily for 2 Days and 0 Hour Rx Instructions: see taper instructions Print Language: Welsh
[2023-06-21 08:17] VITALS: BP 90/61; PULSE 78; RESP 20; TEMP 37.1; O2SAT 92
[2023-06-21 08:29] VITALS: BP 90/61; PULSE 78; RESP 20; TEMP 37.1
== END 2023-06-21 08:30 | disposition home or self-care (01) ==
PROVIDERS: Emergency Provider Emergency Medicine; PCP Internal Medicine
DX: F10.10 Alcohol abuse, uncomplicated (principal); Y90.9 Presence of alcohol in blood, level not specified; J44.9 Chronic obstructive pulmonary disease, unspecified; Z86.718 Personal history of other venous thrombosis and embolism; Z95.828 Presence of other vascular implants and grafts
CPT/HCPCS: 99283

== ENCOUNTER 2023-12-29 14:04 | Outpatient (REF) | payer OTHER, SELFPAY | END 2023-12-29 14:05 | disposition home or self-care (01) | LOC: HO.LNP 14:04 | PROVIDERS: Visit Provider Physician Assistant | DX: R21 Rash and other nonspecific skin eruption (principal) | CPT/HCPCS: 87070; 87205 ==

== ENCOUNTER 2024-05-19 15:10 | Outpatient (REF) | payer OTHER, SELFPAY ==
[2024-05-19 18:23] LABS: Alanine Aminotransferase 10 U/L (0-40); Albumin Level 4.2 g/dL (3.5-5.0); Alkaline Phosphatase 101 U/L (39-117); Anion Gap 12 (12-20); Aspartate Amino Transferase 19 U/L (5-37); Bilirubin Total 0.4 mg/dL (0.0-1.0); Blood Urea Nitrogen 18 mg/dL (9-16); Calcium 9.5 mg/dL (8.4-10.2); Carbon Dioxide 25 mmol/L (22-29); Chloride 105 mmol/L (96-108); Estimated Glomerular Filt Rate > 60; Glucose Random 100 mg/dL (60-115); Potassium 4.1 mmol/L (3.3-5.1); Sodium 138 mmol/L (135-145); Total Protein 8.1 g/dL (6.5-8.0)
[2024-05-19 18:58] LABS: Vitamin B12 569 pg/mL (200-900)
[2024-05-19 19:05] LABS: Folate 12.1 ng/mL (> or = 4.0)
[2024-05-25 15:39] LABS: VITAMIN D (1,25 OH) D3 34 pg/mL; Vit D (1,25-Dihydroxy) Total 34 pg/mL (18-72); Vitamin D (1,25 OH) D2 <8 pg/mL
== END 2024-05-19 15:11 | disposition home or self-care (01) ==
LOC: HO.MANLDS 15:10
PROVIDERS: Visit Provider Internal Medicine
DX: G62.9 Polyneuropathy, unspecified (principal)
CPT/HCPCS: 36415; 80053; 82607; 82652; 82746

== ENCOUNTER 2024-10-21 15:44 | Emergency (ER) | payer OTHER, SELFPAY ==
[2024-10-21 15:48] VITALS: BP 100/60; PULSE 80; O2SAT 92
[2024-10-21 15:55] VITALS: BP 92/50; PULSE 88; RESP 18; TEMP 36.6; O2SAT 92; BMI 22.1
--- NOTE | 2024-10-21 16:30 | ED.ALCOHOL ---
HPI - Alcohol General Chief Complaint: ETOH/Substance Use Stated Complaint: ETOH Time Seen by Provider: 10/21/24 16:11 Source: patient Mode of arrival: ambulatory Limitations: no limitations History of Present Illness ED Provider: Katey Nelson APRN HPI narrative: Edgardo is a 64-year-old male who has a history of alcohol use disorder who presents to the ER with complaints of seeking detox for alcohol use. Patient reports that he has been sober for a year but today he decided to drink a pt of [place] [employer] and smokes some marijuana. He denies any additional substance use. He denies SI or HI. He would like to speak to our recovery team and go to detox. Related Data Home Medications ?Medication ?Instructions ?Recorded ?Confirmed apixaban 5 mg tablet (Eliquis) 5 mg PO BID 08/29/22 06/08/23 folic acid 1 mg tablet 1 mg PO DAILY 06/08/23 06/08/23 hydroxyzine pamoate 25 mg capsule 25 - 50 mg PO TID PRN Anxiety 06/08/23 06/08/23 sertraline 100 mg tablet 100 mg PO DAILY 06/08/23 06/08/23 Previous Rx's ?Medication ?Instructions ?Recorded prednisone 10 mg tablet See Taper PO DIRECTED #20 tabs 06/09/23 thiamine mononitrate (vit B1) 100 100 mg PO DAILY #90 tabs 06/09/23 mg tablet Allergies Allergy/AdvReac Type Severity Reaction Status Date / Time Peanut Butter Allergy Facial Verified 10/21/24 15:58 Swelling raspberry Allergy Facial Verified 10/21/24 15:58 Swelling Review of Systems Review of Systems: Yes all other systems are reviewed and are negative Constitutional: Constitutional: Reports no additional constitutional complaints, Denies body ache(s), Denies chills, Denies fever(s), Denies headache(s) and Denies weakness Eyes: Eyes: Reports no additional eye complaints and Denies change in vision ENT: Reports system reviewed and no additional complaints, except as documented, Denies dizziness, Denies headache(s), Denies nasal congestion, Denies nasal discharge and Denies neck pain Cardiovascular: Cardiovascular: Reports no additional cardiovascular complaints, Denies chest pain, Denies leg edema and Denies dyspnea Respiratory: Respiratory: Reports no additional respiratory complaints, Denies cough and Denies dyspnea Gastrointestinal: Gastrointestinal: Reports no additional gastrointestinal complaints, Denies abdominal pain, Denies diarrhea, Denies nausea and Denies vomiting Genitourinary: Genitourinary: Denies urinary incontinence Musculoskeletal: Musculoskeletal: Reports no additional musculoskeletal complaints, Denies back pain, Denies arthralgias, Denies joint swelling, Denies neck pain, Denies numbness and Denies tingling Integumentary/Breasts: Skin/Breast: Reports system reviewed and no additional complaints, except as docu and Denies rash Neurologic: Reports system reviewed and no additional complaints, except as documented, Denies Abnormal speech present, Denies dizziness, Denies headache(s), Denies numbness, Denies tingling and Denies weakness PMFSH Past Medical History Attestation statement: The following information was validated with the patient. Source: old records reviewed and nursing notes reviewed Medical History Alcohol withdrawal Alcohol dependence Presence of IVC filter Acute and chronic respiratory failure with hypoxia COPD (chronic obstructive pulmonary disease) Alcohol use disorder, severe, dependence Tobacco abuse Subdural hematoma DVT (deep venous thrombosis) COPD (chronic obstructive pulmonary disease) Asthma Neuropathy Alcohol abuse Social History Social History Household Members: None Housing: House Do you presently have visiting nurse or other home services: No Alcohol intake: current Alcohol intake frequency: other Alcohol type: hard liquor Comment: pt refuses high fall risk interventions Patient Tobacco Use Status: Current everyday Tobacco user Tobacco use type: Cigarette Cigarette Packs Per Day: 1 Cigarettes Per Day: 20.0 Smoked in Last 30 Days: Yes e-Cigarette/Vaping Use: Never Used Second Hand Smoke Exposure: No Use of substances other than those prescribed or required for medical reasons: Yes Substance Use Type: Marijuana Substance Use Frequency: Chronic Longstanding Advance Directives: Yes Advance Directives on File: Yes Advance Directives Date on File: 03/05/22 service: No Current occupational status: disabled Physical Exam ED Vital Signs: Vital Signs - 24 hr 10/21/24 15:55 Temperature 98 F Pulse Rate 88 Respiratory Rate 18 Blood Pressure 92/50 L Pulse Oximetry 92 Oxygen Delivery Method Room Air BMI result Body Mass Index 22.1 Const General: cooperative, healthy appearing, comfortable and no acute distress Orientation/consciousness: patient oriented x3 Limitations: no limitations HENMT Head: Yes normal to inspection Ears: hearing grossly normal bilaterally General nose exam: Normal external nose present Face and sinus: Yes normal facial exam Mouth: Normal oral and palatal mucosa present Throat: Yes posterior oropharynx normal Eyes General: appearance normal, both eyes and all related structures Pupils: Equal, round and reactive pupils present Neck Neck: Yes normal visual inspection Chest Chest palpation & inspection: normal inspection of the chest Resp Effort & Inspection: normal respiratory effort Auscultation: clear to auscultation bilaterally Cardio Rate: regular rate Rhythm: regular rhythm Peripheral pulses: Peripheral pulses 2+ throughout GI Inspection: Yes normal to inspection Palpation (GI): Soft to palpation and nontender Auscultation: normal bowel sounds Back/Spine/Pelvis Thoracic/Lumbar Spine: thoracic and lumbar spine normal to inspection Skin General skin exam: no rashes or lesions noted Neuro General: patient oriented x3, no focal motor deficits and normal sensation to monofilament Cranial nerves: Yes Equal, round and reactive pupils present Cognition (Neuro): normal cognition Speech: No Abnormal speech present Gait exam (Neuro): Normal gait present Motor exam (neuro): 5/5 motor strength present throughout Extrem General: Yes normal to inspection Course Course Course Narrative: Patient no longer wants to speak to our recovery team. He has a and some food. He is up and ambulatory with a steady gait. He is clinically sober. Therefore I will discharge him home with outpatient resources Medical Decision Making Medical Decision Making MDM Narrative: Edgardo is a 64-year-old male who has a history of alcohol use disorder who presents to the ER with complaints of seeking detox for alcohol use. Patient reports that he has been sober for a year but today he decided to drink a pt of [place] [employer] and smokes some marijuana. He denies any additional substance use. He denies SI or HI. He would like to speak to our recovery team and go to detox. No physical complaints. No concern for acute ingestion or trauma Will obtain a recovery care team consult Lab Data Labs: Lab Results 10/21/24 Range/Units 17:04 Urine Color Yellow Urine Appearance Clear Urine pH 6.0 (5.0-9.0) Ur Specific [place] 1.010 (1.005-1.025) Urine Protein Negative (Neg-Trace) mg/dL Urine Glucose (UA) Negative (Negative) mg/dL Urine Ketones Negative (Negative) mg/dL Urine Blood Negative (Negative) Urine Nitrite Negative (Negative) Ur Leukocyte Esterase Negative (Negative) Urine Opiates Screen Not Detected (Not Detect) Ur Buprenorphine Scrn Not Detected (Not Detect) ng/mL Ur Oxycodone Screen Not Detected (Not Detect) ng/mL Urine Methadone Screen Not Detected (Not Detect) ng/mL Urine Fentanyl Screen Not Detected (Not Detect) Ur Barbiturates Screen Not Detected (Not Detect) Ur Phencyclidine Scrn Not Detected (Not Detect) Ur Amphetamines Screen Not Detected (Not Detect) U Benzodiazepines Scrn Not Detected (Not Detect) Urine Cocaine Screen Not Detected (Not Detect) U Marijuana (THC) Screen POSITIVE H (Not Detect) Medications Administered Discontinued Medications Generic Name Dose Route Start Last Admin Trade Name Freq PRN Reason Stop Dose Admin Albuterol Sulfate 2 puff 10/21/24 16:30 10/21/24 16:39 Albuterol Sulfate 90 Mcg 8 Gm Inhaler INHALE 10/21/24 16:31 2 puff ONCE ONE Administration Discharge Plan Discharge Clinical Impression: Alcohol abuse Patient Disposition: Home, Self-Care Instructions: Alcohol Use Disorder (ED) Additional Instructions: Alcohol use disorder You were seen in the Emergency Department today for treatment of alcohol use disorder.? You may have been given medications to help with your withdrawal symptoms.? Please do not drink alcohol with them. This is very dangerous and can cause respiratory depression or other adverse reactions depending on the medication. If you would like to cut down or stop your alcohol use please consider calling our outpatient Addiction Treatment office:? [facility] (M-F [id number]) [address] [place] [id number] You have also been given a list of treatment providers in the area that can assist as well.? If you experience seizures, vomiting blood, black stools, falls, severe headache, chest pain, fevers, trouble breathing, hallucinations or any other concerns you need to call 911 or seek immediate care. Please stay hydrated. Prescriptions: No Action Eliquis 5 mg tablet 5 mg PO BID sertraline 100 mg tablet 100 mg PO DAILY folic acid 1 mg tablet 1 mg PO DAILY hydroxyzine pamoate 25 mg capsule 25 - 50 mg PO TID PRN (Reason: Anxiety) thiamine mononitrate (vit B1) 100 mg Tablet 100 mg PO DAILY Qty: 90 0RF prednisone 10 mg tablet See Taper PO DIRECTED Qty: 20 0RF Taper: Prednisone 40 mg daily for 2 Days and 0 Hour 30 mg daily for 2 Days and 0 Hour 20 mg daily for 2 Days and 0 Hour 10 mg daily for 2 Days and 0 Hour Rx Instructions: see taper instructions Referrals: Cristhian Delgado MD [Primary Care Provider, Internal Medicine] Print Language: Occitan
[2024-10-21] MEDS: Albuterol Sulfate 90 MCG 8 GM INHALER 2 PUFF INHALE (16:39)
[2024-10-21 17:14] LABS: Appearance Urine Clear; Glucose Urine UA Negative (Negative); PH 6.0 (5.0-9.0); Specific Gravity - Urine 1.010 (1.005-1.025)
[2024-10-21 17:24] LABS: Cannabinoid Screen Urine POSITIVE (Not Detect)
[2024-10-21 18:39] VITALS: BP 92/50; PULSE 88; RESP 18; TEMP 36.6; O2SAT 92
== END 2024-10-21 18:40 | disposition home or self-care (01) ==
PROVIDERS: Nurse Practitioner Family; Emergency Provider Emergency Medicine; PCP Internal Medicine
DX: F10.10 Alcohol abuse, uncomplicated (principal); J44.9 Chronic obstructive pulmonary disease, unspecified
CPT/HCPCS: 80307; 81003; 99284

== ENCOUNTER → 2024-10-26 15:31 | Outpatient (BNV) | payer OTHER, SELFPAY | PROVIDERS: Emergency Provider Student in an Organized Health Care Education/Training Program; PCP Internal Medicine; Visit Provider Radiology Diagnostic Radiology | DX: Z04.3 Encounter for examination and observation following other accident (principal) | CPT/HCPCS: 71275 ==

== ENCOUNTER 2024-10-26 15:38 | Emergency (ER) | payer OTHER, SELFPAY ==
--- NOTE | 2024-10-26 | ECG_ITS ---
Test Reason : CP Blood Pressure : */* mmHG Vent. Rate : 81 BPM Atrial Rate : 81 BPM P-R Int : 136 ms QRS Dur : 134 ms QT Int : 406 ms P-R-T Axes : 71 -72 45 degrees QTcB Int : 471 ms Normal sinus rhythm Right bundle branch block Left anterior fascicular block Bifascicular block Abnormal ECG When compared with ECG of 08-Jun-2023 02:35, No significant change was found Referred By: Generic ED Physician Electronically Signed By: RENEE TRAMMELL
--- NOTE | ~2024-10-26 | CT_ITS ---
CLINICAL HISTORY: trauma fall CT angiogram chest/pulmonary arteries with contrast Multiplanar reconstructions and MIPS Comparison: None provided Findings: No filling defects are noted to suggest pulmonary embolus. Main pulmonary artery normal in caliber. Thoracic aorta normal caliber without dissection. Heart size normal. Great vessel origins patent. No coronary calcifications. 7 mm cavitary lesion inferior right upper lobe. This is worrisome for small malignancy. Recommend follow-up PET imaging. Scattered tiny left ground-glass densities. With are too small to characterize. These will likely not be assessable on PET imaging. Recommend 3 to six-month follow-up chest CT. This may change depending on PET imaging findings. No acute infiltrates are identified. No significant mediastinal or hilar adenopathy. No free pleural fluid. Old mild T12 compression fracture. Degenerative change in thoracic spine. No acute bony abnormality noted. Impression: 7 mm irregular cavitary lesion right upper lobe Question malignancy, consider follow-up PET imaging Scattered tiny left ground-glass densities No acute process CT abdomen pelvis with contrast Comparison: 02/06/2022 Findings: No acute process in liver or spleen. Cholelithiasis. Pancreas, adrenal glands and left kidney unremarkable. Very small right kidney consistent with chronic disease. Aorta normal caliber. IVC filter. No significant free fluid or adenopathy in the pelvis. No acute focal bony abnormalities in the pelvis. No acute bony abnormalities noted in lumbar spine. Mild old T12 compression fracture. Impression: No significant intra-abdominal or pelvic trauma This document has been electronically signed by: Ang Hood MD on 10/26/2024 19:33:15
--- NOTE | ~2024-10-26 | XR_ITS ---
EXAMINATION: XR SHOULDER, RIGHT CLINICAL INFORMATION: fall and now pain COMPARISON: None available. TECHNIQUE: Three views of the right shoulder. FINDINGS: Normal bone mineralization. No fracture, dislocation, or suspicious bone lesion. Normal alignment. The glenohumeral joint demonstrates mild degenerative arthritis. The AC joint demonstrates moderate degenerative spurring both superiorly and inferiorly. There is a type II acromion. No undersurface spurring. The subacromial space is mildly narrowed. Remainder of the soft tissue and bony structures appear normal. XR/XR shoulder RT min 2V IMPRESSION: 1. No acute bony fracture or dislocation of the right shoulder. Electronically signed by: Jp Joseph MD 10/26/2024 04:40 PM EDT
[2024-10-26 15:44] VITALS: BP 114/69; PULSE 92; RESP 20; TEMP 36.8; O2SAT 90; BMI 20.8
[2024-10-26 15:48] VITALS: BP 114/69; PULSE 92; RESP 18; TEMP 36.8; O2SAT 90
--- NOTE | 2024-10-26 16:08 | ED_ITS ---
HPI - General Adult General Chief complaint: ETOH/Substance Use Stated complaint: ETOH USE Time Seen by Provider: 10/26/24 16:02 Source: patient Mode of arrival: ambulatory Limitations: no limitations History of Present Illness ED Provider: [facility] S[facility] narrative: This is a 64-year-old male history of alcohol use disorder presented hospital today for evaluation of potential alcohol withdrawal. Patient is requesting alcohol detox. Patient stated that he is attempting to get sober. However he relapsed. Patient has fallen as well. Complain of right shoulder pain. Patient states he does follow up multiple time due to intoxication. Denies any headache however does endorse some neck tenderness. And right shoulder tenderness. Denies any chest pain. Patient does complain of slight left lower quadrant tenderness on palpation. He is able to stand since the fall. No hip issues. Patient is currently on Eliquis for blood clot in his legs. Related Data Home Medications ?Medication ?Instructions ?Recorded ?Confirmed apixaban 5 mg tablet (Eliquis) 5 mg PO BID 08/29/22 folic acid 1 mg tablet 1 mg PO DAILY 06/08/2306/07 hydroxyzine pamoate 25 mg capsule 25 - 50 mg PO TID MN N Anxiety 06/08/23 06/08/23 sertraline 100 mg tablet 100 mg PO DAILY 06/08/2311/22 Previous Rx's ?Medication ?Instructions ?Recorded prednisone 10 mg tablet See Taper PO DIRECTED #20 tabs 06/09/23 thiamine mononitrate (vit B1) 100 100 mg PO DAILY #90 tabs 06/09/23 mg tablet azithromycin 250 mg tablet See Rx Instructions PO .COM PLEX #6 10/26/24 tabs prednisone 20 mg tablet 40 mg (2 x 20 mg) PO DAILY 5 days 10/26/24 #10 tabs Allergies Allergy/AdvReac Type Severity Reaction Status Date / Time Peanut Butter Allergy Facial Verified 10/26/24 15:53 Swelling raspberry Allergy Facial Verified 10/26/24 15:53 Swelling Review of Systems 2 Review of Systems: Pertinent review of systems as mentioned in HPI. All other system otherwise negative. [facility] Past Medical History [facility] Narrative: Medical history as mentioned in HPI Medical History Alcohol withdrawal Alcohol dependence Presence of IVC filter Acute and chronic respiratory failure with hypoxia COPD (chronic obstructive pulmonary disease) Alcohol use disorder, severe, dependence Tobacco abuse Subdural hematoma DVT (deep venous thrombosis) COPD (chronic obstructive pulmonary disease) Asthma Neuropathy Alcohol abuse Social History Social History Household Members: None Housing: House Do you presently have visiting nurse or other home services: No Alcohol intake: current Alcohol intake frequency: 3 or more drinks per day Alcohol type: hard liquor Comment: pt refuses high fall risk interventions Patient Tobacco Use Status: Current everyday Tobacco user Tobacco use type: Cigarette Cigarette Packs Per Day: 1 Cigarettes Per Day: 20.0 Smoked in Last 30 Days: Yes e-Cigarette/Vaping Use: Never Used Second Hand Smoke Exposure: No Use of substances other than those prescribed or required for medical reasons: Yes Substance Use Type: Marijuana Substance Use Frequency: Chronic Longstanding Advance Directives: Yes Advance Directives on File: Yes Advance Directives Date on File: 03/05/22 Do you have a plan to hurt others: No Plan service: No Current occupational status: disabled Physical Exam ED Exam Exam: General: Pleasant, no distress, interacting appropriately Head: Normacephalic, atraumatic ENT: oral mucosa moist, neck supple, no tracheal deviation, right-sided cervical spine tenderness, likely pain radiating from right shoulder. Patient does have some abrasion on the right posterior thorax. Cardiovascular: regular rate, regular rhythm, no murmurs, rubbing, gallops Respiratory: CTAB, no wheeze, rales, rhonchi Gastrointestinal: Soft, non distended, slight tenderness on the left lower quadrant, no sign of guarding. Extremities: Patient has right shoulder pain. Patient does have ecchymosis to the right shoulder with swelling of the right shoulder joint. I suspect that his right hemarthrosis cream on neurovascularly intact otherwise. Neurological: Awake and alert, no facial droop noted Skin: Warm and dry Psychiatric: Appropriate mood and thoughts Vital Signs: Vital Signs - 24 hr 10/26/24 15:44 10/26/24 15:48 10/26/24 20:00 Temperature 98.3 F 98.3 F 98.1 F Pulse Rate 92 92 108 H Respiratory Rate 20 18 16 Blood Pressure 114/69 114/69 129/76 Pulse Oximetry 90 L 90 L 92 Oxygen Delivery Method Room Air Room Air Room Air 10/26/24 20:06 Temperature 98.1 F Pulse Rate 108 H Respiratory Rate 16 Blood Pressure 129/76 Pulse Oximetry 92 Oxygen Delivery Method Room Air BMI result Body Mass Index 20.8 Medications Administered Discontinued Medications Generic Name Dose Route Start Last Admin Trade Name Frandy PRN Reason Stop Dose Admin Acetaminophen 975 mg 10/26/24 16:55 10/26/24 17:14 Acetaminophen 325 Mg Tablet PO 10/26/24 16:56 975 mg ONCE ONE Administration Albuterol/Ipratropium 3 ml 10/26/24 16:59 10/26/24 17:25 Albuterol/Iprat 2.5/0.5mg 3 Ml Ampul.Neb INHALE 10/26/24 17:00 Not Given ONCE ONE Iohexol 85 ml 10/26/24 18:33 10/26/24 18:34 Iohexol 350 Mg/Ml 100 Ml Infus..Btl IV 10/26/24 18:34 85 ml ONCE ONE Administration Prednisone 40 mg 10/26/24 16:59 10/26/24 17:15 Prednisone 20 Mg Tablet PO 10/26/24 17:00 40 mg ONCE ONE Administration Medical Decision Making Medical Decision Making MDM Narrative: 64-year-old male history of alcohol use disorder, COPD, DVT on [facility] presented hospital today for a fall and evaluation for possible alcohol detox. Given patient fall. We will obtain a CT head and CT C-spine. Patient does have abdominal tenderness we will obtain a CT abdomen and pelvis. Given patient's history of DVT and hypoxia. We will plan to obtain a CTA of the chest for PE rule out We will plan to give patient DuoNeb treatment here. Screening chest x-ray will be obtained as well. We will obtain an EKG for the patient. Basic lab work will be obtained. We will plan to consult job coach/job developer for detox resources. We will monitor for signs of alcohol withdrawal during his stay here. I suspect patient likely has right-sided hemarthrosis on the right shoulder. No signs of fracture on the x- ray. Patient's hemoglobin is appropriate at 12.4. Chemistries unremarkable. CT imaging have incidental finding of a 7 mm irregular cavitary lesion right upper lobe. This was discussed with the patient recommend follow up with her biopsy we will pulmonology team. Referral will be provided to the patient. No sign of acute traumatic injury elsewhere on imaging. Discussed with patient that I think he has right-sided hemarthrosis of the right shoulder. Encouraged conservative treatment at this time. Patient is agreeable with this plan. Patient is requesting to be discharged. Patient will be discharged home. Differential Diagnosis Differential Diagnoses: The differential diagnosis associated with the presentation includes Intracranial bleeding, PE, intra-abdominal injury from trauma, hemarthrosis of the right shoulder, C-spine fracture Lab Data MDM Lab Attestation statement: I reviewed the patient's lab results. 10/26/24 16:47 10/26/24 16:47 Labs: Lab Results 10/26/24 10/26/24 Range/Units 16:47 19:16 WBC 8.9 (4.8-10.8) X10*3/uL RBC 4.36 L (4.60-5.80) X10*6/uL Hgb 12.4 L (14.0-18.0) g/dl Hct 35.6 L (42.0-52.0) % MCV 81.7 (80.0-98.0) fL MCH 28.4 (27.0-33.0) pg MCHC 34.8 (31.0-36.0) g/dl RDW 12.8 (11.0-16.0) % Plt Count 188 D (160-400) X10*3/uL MPV 8.9 L (9.4-12.4) fL Immature Gran % (Auto) 0.3 (0.0-0.4) % Neut % (Auto) 69.9 (45-73) % Lymph % (Auto) 19.4 L (20-40) % [place] % (Auto) 9.7 (2-11) % Eos % (Auto) 0.1 (0-4) % Baso % (Auto) 0.6 (0-2) % Lymph # (Auto) 1.7 (1.2-4.9) X10*3/uL [place] # (Auto) 0.9 (0.1-1.2) X10*3/uL Eos # (Auto) 0.0 (0.0-0.4) X10*3/uL Baso # (Auto) 0.1 (0.0-0.2) X10*3/uL Abs Immat Gran (auto) 0.03 (0.00-0.03) X10*3/uL Absolute Neuts (auto) 6.2 (2.0-8.3) x10*3/uL Absolute Nucleated RBC 0.000 (0.0-0.012) X10*3/uL Nucleated RBC % (auto) 0.0 (0.0-0.2) /100WBC PT 13.5 H (10.9-12.4) SEC INR 1.2 H (0.9-1.1) Sodium 139 (135-145) mmol/L Potassium 3.7 (3.3-5.1) mmol/L Chloride 100 (96-108) mmol/L Carbon Dioxide 26 (22-29) mmol/L Anion Gap 17 (12-20) BUN 16 (9-16) mg/dL Creatinine 0.80 (0.5-1.4) mg/dL Estim Creat Clear Calc 86.7 Estimated GFR > 60 Random Glucose 115 (60-115) mg/dL Calcium 8.7 D (8.4-10.2) mg/dL Magnesium 1.9 (1.6-2.6) mg/dL Urine Opiates Screen Not Detected (Not Detect) Ur Buprenorphine Scrn Not Detected (Not Detect) ng/mL Ur Oxycodone Screen Not Detected (Not Detect) ng/mL Urine Methadone Screen Not Detected (Not Detect) ng/mL Urine Fentanyl Screen Not Detected (Not Detect) Ur Barbiturates Screen Not Detected (Not Detect) Ur Phencyclidine Scrn Not Detected (Not Detect) Ur Amphetamines Screen Not Detected (Not Detect) U Benzodiazepines Scrn Not Detected (Not Detect) Urine Cocaine Screen Not Detected (Not Detect) U Marijuana (THC) Screen Not Detected (Not Detect) Independent Interpretation I performed an independent interpretation of an: Plain X-Ray and CT Scan Radiology Impression Discussion of test interpretation with radiology: I have reviewed the radiologist's reading. Chronic Conditions alcohol use disorder Discharge Plan Discharge Clinical Impression: Hemarthrosis, Alcohol use disorder Patient Disposition: Home, Self-Care Additional Instructions: Follow up with your doctor for your cavitary lesion in your right chest. Ask to see if you can get a biopsy to rule out lung cancer. Prescriptions: New azithromycin 250 mg tablet See Rx Instructions .ROUTE .COMPLEX Qty: 6 0RF Rx Instructions: For 250 mg dose pack: take 500 mg today (day 1), then 250 mg for 4 days (days 2-5) prednisone 20 mg tablet 40 mg PO DAILY 5 Days Qty: 10 0RF No Action Eliquis 5 mg tablet 5 mg PO BID sertraline 100 mg tablet 100 mg PO DAILY folic acid 1 mg tablet 1 mg PO DAILY hydroxyzine pamoate 25 mg capsule 25 - 50 mg PO TID PRN (Reason: Anxiety) thiamine mononitrate (vit B1) 100 mg Tablet 100 mg PO DAILY Qty: 90 0RF prednisone 10 mg tablet See Taper PO DIRECTED Qty: 20 0RF Taper: Prednisone 40 mg daily for 2 Days and 0 Hour 30 mg daily for 2 Days and 0 Hour 20 mg daily for 2 Days and 0 Hour 10 mg daily for 2 Days and 0 Hour Rx Instructions: see taper instructions Referrals: [facility] [Provider Group, Pulmonology] Interventions: ED Discharge Assessment Last Done: 10/26/24 20:06 Print Language: Bahraini
--- OUTSIDE RECORDS SUMMARY | 2024-10-26 16:44 | XMS_ITS | Clinical Summary ---
Author Organization [facility] Address [address] [place] [address] Phone Care Team Providers Care Electronic Prepress Technician Name Role Phone Cristhian Delgado Primary Care Provider Allergies Active Allergy Reactions Criticality Noted Date Comments Pregabalin 05/30/2024 Peanut 03/15/2024 Raspberry 03/15/2024 Medications Eliquis 5 mg tablet Take 1 tablet (5 mg total) by mouth 2 (two) times a day. Active budesonide-for moteroL (SYMBICORT) 160-4.5 mcg/actuation inhaler Inhale 2 puffs by mouth 2 (two) times a day. 02/13/20 24 Active acamprosate (CAMPRAL) 333 mg EC tablet Take 2 tablets (666 mg total) by mouth 3 (three) times a day. 12/28/19 24 Active busPIRone (BUSPAR) 7.5 mg tablet Take 1 tablet (7.5 mg total) by mouth 3 (three) times a day. 01/17/20 24 Active hydrOXYzine pamoate (VISTARIL) 25 mg capsule Take 1 capsule (25 mg total) by mouth 3 (three) times a day if needed for anxiety. 02/25/20 24 Active melatonin 5 mg tablet Take 1 tablet (5 mg total) by mouth 1 (one) time each day. 02/21/20 24 Active mirtazapine (REMERON) 15 mg tablet Take 0.5 tablets (7.5 mg total) by mouth at bedtime. 03/10/19 25 Active Cerovite Senior tablet Take 1 tablet by mouth 1 (one) time each day. for 30 days 01/19/20 Active prazosin (MINIPRESS) 1 mg capsule Take 1 capsule (1 mg total) by mouth at bedtime. at bedtime 03/08/19 25 Active triamcinolone (KENALOG) 0.1 % cream Apply 1 Application topically 2 (two) times a day. 02/21/20 Active naltrexone (DEPADE) 50 mg tablet Take 1 tablet (50 mg total) by mouth 1 (one) time each day. 12/15/19 Active azithromycin (ZITHROMAX) 250 mg tablet 05/20/19 Active clotrimazole-b etamethasone (LOTRISONE) 1-0.05 % cream PLEASE SEE ATTACHED FOR DETAILED DIRECTIONS 11/16/19 Active EPINEPHrine (EPIPEN) 0.3 mg/0.3 mL injection INJECT 1 PEN INJECTOR INTRAMUSCULARLY NEEDED FOR SEVERE ALLERGIC REACTION Active Trelegy Ellipta 200-62.5-25 mcg inhaler 05/30/19 Active ipratropium/al buterol sulfate (COMBIVENT RESPIMAT INHL) PRN, Refills 0, Maintenance, 01/24/20 15:39:00 EST 01/24/20 Active ketorolac (ACULAR) 0.5 % ophthalmic solution INSTILL 1 DROP IN OPERATIVE EYE 3 TIMES A DAY. START 2 DAYS PRIOR TO SURGERY. CONTINUE DIRECTED. 01/15/20 Active naloxone (NARCAN) 4 mg/0.1 mL nasal spray ADMINISTER 1 SPRAY INTO ONE NOSTRIL NEEDED CALL 911. REPEAT IN 2-3 MIN IF NO/MINIMAL RESPONSE 09/09/19 Active predniSONE (DELTASONE) 10 mg tablet PLEASE SEE ATTACHED FOR DETAILED DIRECTIONS 04/19/19 25 Active albuterol HFA (PROAIR HFA ; PROVENTIL HFA ; VENTOLIN HFA) 90 mcg/actuation inhaler Inhale 2 puffs by mouth every 4 (four) hours if needed. Active sertraline (ZOLOFT) 50 mg tablet Take 1 tablet (50 mg total) by mouth. at bedtime 11/12/19 Active Active Problems Problem Noted Date Diagnosed Date Anxiety and depression 03/17/2024 Other secondary gout, multiple sites 12/12/2022 Other iron deficiency anemias 12/12/2022 Hypomagnesemia 12/12/2022 Other hypotension 12/12/2022 Difficulty in walking, not elsewhere classified 12/12/2022 Alcoholic polyneuropathy ([facility] V24) Acute embolism and thrombosis of other specified veins 12/12/2022 Alcohol abuse with withdrawa l, uncomplicated ([facility] V24, [facility] V28) 12/12/2022 Chronic obstructive pulmonar y disease with (acute) exacerbation ([facility] V24, [facility] V28) 12/12/2022 Resolved Problems Problem Noted Date Diagnosed Date Resolved Date Acute hypoxemic respiratory failure ([facility] V24, [facility] V28) 03/17/2024 03/18/2024 Surgical History Surgery Date Site/Laterality Comments IVC FILTER Medical History Medical History Date Comments COPD (chronic obstructive pulmonary disease) ([facility], [facility] V28) Neuropathy Social History Tobacco Use Types Packs/Day Years Used Date Smoking Tobacco: Every Day Cigarettes Smokeless Tobacco: Current Tobacco Cessation:Ready to Q uit: No; Counseling Given: Not Answered Alcohol Use Standard Drinks/Week Comments Not Currently 0 (1 standard drink = 0.6 oz pur e alcohol) Interpersonal Safety Answer Date Record ed Physical Abuse 03/18/2024 Verbal Abuse 03/18/2024 Sex and Gender Information Value Date Recorded Sex Assigned at Not on file Legal Sex Male 7:34 AM EST Gender Identity Not on file Sexual Orientation Not on file Obstetrics History Last Filed Vital Signs Vital Sign Reading Time Taken Comments Blood Pressure 114/69 03/18/2024 3:08 PM EST Pulse 93 03/18/2024 3:08 PM EST Temperature 36.5 C (97.7 F) 03/18/2024 3:08 PM EST Respiratory Rate 18 03/18/2024 3:08 PM EST Oxygen Saturation 95% 03/18/2024 3:08 PM EST Inhaled Oxygen Concentration - - Weight 68 kg (150 lb) 07/12/2024 1:40 PM EDT Height 175.3 cm (5' 9.02 ) 07/12/2024 1:40 PM ED T Body Mass Index 22.14 07/12/2024 1:40 PM EDT Plan of Treatment Health Maintenance Due Date Last Done Comments Hepatitis A Vaccines (1 of 2 - Risk 2-dose series) 07/04/1979 Hepatitis B Vaccines (1 of 3 - Risk 3-dose series) 2020 RSV Immunization Adult Patients (1 - Risk 60-74 years 1-dose series) 2020 Pneumococcal Vaccine: 50+ Years (2 of 2 - PCV) 07/17/2021 07/17/2020 Cholesterol Screening (Lipid Panel) 02/01/2022 Colorectal Cancer Screening: Colonoscopy 02/01/2022 HIV Screening 02/01/2022 Hepatitis C Screening 02/01/2022 Medicare Annual Wellness Visit 02/01/2022 Social Influencers of Health Screening 02/01/2022 COVID-19 Vaccine (3 - season) 2023 01/28/2023, 03/25/2021 Depression Screening 03/01/2024 Zoster Vaccines (2 of 2) 03/20/2024 01/24/2024 Influenza Vaccine (#1) 2024 , 03/21/2023, 01/28/2023, Additional history exists DTaP,Tdap,and Td Vaccines (3 - Td or Tdap) 08/04/2031 08/03/2021, 08/03/2021 HIB Vaccines Aged Out No longer eligi ble based on patient's age to complete this topic HPV Vaccines Aged Out No longer eligi ble based on patient's age to complete this topic IPV Vaccines Aged Out No longer eligi ble based on patient's age to complete this topic MMR Vaccines Aged Out No longer eligi ble based on patient's age to complete this topic Meningococcal ACWY Vaccine Aged Out N o longer eligible based on patient's age to complete this topic Meningococcal B Vaccine Aged Out No l onger eligible based on patient's age to complete this topic RSV Immunization Patients Under 20 months Aged Out No longer eligible based on patient's age to complete this topic Varicella Vaccines Aged Out No longer eligible based on patient's age to complete this topic Additional Health Concerns Infection Onset Date Last Indicated Coronavirus 03/15/2024 03/15/2024 Insurance MEDICAID - [place] [facility] MEDICARE Member Subscriber Plan / Payer (Ef fective 2023-Present) Name:GIO ZEE Relation to Subscriber:Self Name:Gio Zee Payer ID:[id number] Group ID:[id number] Type:Not on file Address: [address] [place] [address] Advance Directives Documents on File Type Date Recorded Patient Durability Technician Expl anation Health Care Decision (hx) 05/18/2017 AD GLEASON DIRECTIVE Health Care Decision (hx) 05/18/2017 AD GLEASON DIRECTIVE Health Care Decision (hx) 05/18/2017 AD GLEASON DIRECTIVE Health Care Decision (hx) 05/18/2017 AD GLEASON DIRECTIVE Health Care Decision (hx) 05/18/2017 AD GLEASON DIRECTIVE Health Care Decision (hx) 05/18/2017 AD GLEASON DIRECTIVE Health Care Decision (hx) 05/18/2017 AD GLEASON DIRECTIVE Health Care Decision (hx) 05/18/2017 AD GLEASON DIRECTIVE Health Care Decision (hx) 05/18/2017 AD GLEASON DIRECTIVE Health Care Decision (hx) 05/18/2017 AD GLEASON DIRECTIVE Health Care Decision (hx) 05/18/2017 AD GLEASON DIRECTIVE Health Care Decision (hx) 05/18/2017 AD GLEASON DIRECTIVE Health Care Decision (hx) 05/18/2017 AD GLEASON DIRECTIVE Health Care Decision (hx) 05/18/2017 AD GLEASON DIRECTIVE Health Care Decision (hx) 05/18/2017 AD GLEASON DIRECTIVE Health Care Decision (hx) 05/18/2017 AD GLEASON DIRECTIVE Health Care Decision (hx) 05/18/2017 AD GLEASON DIRECTIVE Health Care Decision (hx) 05/18/2017 AD GLEASON DIRECTIVE Health Care Decision (hx) 05/18/2017 AD GLEASON DIRECTIVE Health Care Decision (hx) 05/18/2017 AD GLEASON DIRECTIVE Health Care Decision (hx) 05/18/2017 AD GLEASON DIRECTIVE Health Care Decision (hx) 05/18/2017 AD GLEASON DIRECTIVE Health Care Decision (hx) 05/18/2017 AD GLEASON DIRECTIVE Health Care Decision (hx) 05/18/2017 AD GLEASON DIRECTIVE Health Care Decision (hx) 05/18/2017 AD GLEASON DIRECTIVE Health Care Decision (hx) 05/18/2017 AD GLEASON DIRECTIVE Health Care Decision (hx) 05/18/2017 AD GLEASON DIRECTIVE Health Care Decision (hx) 01/11/2017 AD GLEASON DIRECTIVE Health Care Decision (hx) 01/11/2017 AD GLEASON DIRECTIVE Health Care Decision (hx) 01/11/2017 AD GLEASON DIRECTIVE Health Care Decision (hx) 01/11/2017 AD GLEASON DIRECTIVE Health Care Decision (hx) 01/11/2017 AD GLEASON DIRECTIVE Health Care Decision (hx) 01/11/2017 AD GLEASON DIRECTIVE Health Care Decision (hx) 01/11/2017 AD GLEASON DIRECTIVE Health Care Decision (hx) 01/11/2017 AD GLEASON DIRECTIVE Health Care Decision (hx) 01/11/2017 AD GLEASON DIRECTIVE Health Care Decision (hx) 01/11/2017 AD GLEASON DIRECTIVE Health Care Decision (hx) 01/11/2017 AD GLEASON DIRECTIVE Health Care Decision (hx) 01/11/2017 AD GLEASON DIRECTIVE Health Care Decision (hx) 01/11/2017 AD GLEASON DIRECTIVE Health Care Decision (hx) 01/11/2017 AD GLEASON DIRECTIVE Health Care Decision (hx) 01/11/2017 AD GLEASON DIRECTIVE Health Care Decision (hx) 01/11/2017 AD GLEASON DIRECTIVE Health Care Decision (hx) 01/11/2017 AD GLEASON DIRECTIVE Health Care Decision (hx) 01/11/2017 AD GLEASON DIRECTIVE Health Care Decision (hx) 01/11/2017 AD GLEASON DIRECTIVE Health Care Decision (hx) 01/11/2017 AD GLEASON DIRECTIVE Health Care Decision (hx) 01/11/2017 AD GLEASON DIRECTIVE Health Care Decision (hx) 01/11/2017 AD GLEASON DIRECTIVE Health Care Decision (hx) 01/11/2017 AD GLEASON DIRECTIVE Health Care Decision (hx) 01/11/2017 AD GLEASON DIRECTIVE Health Care Decision (hx) 01/11/2017 AD GLEASON DIRECTIVE Health Care Decision (hx) 01/11/2017 AD GLEASON DIRECTIVE Health Care Decision (hx) 01/11/2017 AD VICTORINO DIRECTIVE * Full Code - Default (Latest Code Status on File) Date Activated Date Inactivated Comments 03/17/2024 5:06 PM 03/18/2024 6:06 PM This is orde r is used when code status has not been discussed with the patient, or code status is otherwise unknown/unconfirmed To update the patient's code status, place a code status order. Do not modify or discontinue any currently active code status orders. Care Teams Electronic Prepress Technician Relationship Specialty Start Date End Date Cristhian Delgado DO [address] [facility] [address] [place], [place] PCP - General Internal Medicine 02/01/24
--- OUTSIDE RECORDS SUMMARY | 2024-10-26 16:44 | XMS_ITS ---
Author Organization [facility] Care Team Providers Care Potato Picker Name Role Phone Landry Thomas Unavailable Unavailable Viridiana Miller Unavailable Unavailable Giovani Juarez Unavailable Unavailable Breanna Ritter Unavailable Unavailable Regine Gonzalez Unavailable Unavailable Ginette Hernández Unavailable Unavailable Margot Fuentes Unavailable Unavailable Esther Markham Unavailable Unavailable Malena Gayle Unavailable Unavailable Allergies and adverse reactions Code CodeSystem Substance Reaction Severity StartDate Concern Status Peanut Unknown 09/15/2017 active Care Team Name Role Address Phone Organization Dates Landry Thomas [address] [place], [address], [place]Office[place] : [facility] 10/02/2017 - 10/08/2017 Viridiana Miller [address] [place] [address], [place], [address], [place]Office[place] : [facility] 10/02/2017 - 10/08/2017 Giovani Juarez [address] [place] [address] [address], [place], [address], [place] (Office): : [facility] 10/02/2017 - 10/08/2017 Breanna Ritter [address] [facility] [address], [place], [address], [facility] (Office): : [facility] 10/02/2017 - 10/08/2017 Regine Gonzalez [address] [facility] [address] [address], [place], [address], [place] (Office): : [facility] 10/02/2017 - 10/08/2017 Ginette Hernández [address] [facility] [address] [address], [place], [address], [place] (Office): : [facility] 10/02/2017 - 10/08/2017 Margot Fuentes [address] [facility] [address] [address], [place], [address], [place] (Office): : [facility] 10/02/2017 - 10/08/2017 Esther Markham [address] [facility] [address] [address], [place], [address], [facility] (Office): : [facility] 10/02/2017 - 10/08/2017 Malena Gayle [address] [facility] [address] [address], [place], [address], [place] (Office): : [facility] 10/02/2017 - 10/08/2017 Immunizations Immunization Status Vaccine Details Vaccine Code CodeSystem Date Notes Pneumovax Dose 1 completed pneumococcal polysaccharide vaccine, 23 valent lotNumber: [id number] expiry: 11/10/2018 Mfg: [employer] Given 0.5 ml Right Deltoid intramuscularly 33 CVX created date: 09/18/2017 consent date: 09/18/2017 administere d date: 09/18/2017 Mental Status Section Date Assessment Total Score Description 10/08/2017 BIMS 13 cognitively int act CAM 0 No delirium ind icated PHQ-9 03 minimal depress ion 09/22/2017 BIMS 13 cognitively int act CAM 0 No delirium ind icated PHQ-9 03 minimal depress ion Problems Problem # Description Date of onset Resolved Date Code CodeSystem Concern Status 1 OTHER MALAISE 10/04/[address] act darlyn 2 MUSCLE WEAKNESS (GENERALIZED) 10/02/[address] active 3 UNSPECIFIED ATRIAL FIBRILLATION 10/02/[address] active 4 ALCOHOLIC HEPATITIS WITHOUT ASCITES 09/29/[address] active 5 ACUTE VIRAL HEPATITIS, UNSPECIFIED 09/15/[address] active 6 ALCOHOL DEPENDENCE WITH WITHDRAWAL, UNSPECIFIED 09/15/[address] active 7 ALCOHOL DEPENDENCE, UNCOMPLICATED 09/15/[address] active 8 CHRONIC OBSTRUCTIVE PULMONARY DISEASE WITH (ACUTE) EXACERBATION 09/15/[address] active 9 OTHER ABNORMALITIES OF GAIT AND MOBILITY 09/15/[address] active 10 PERSONAL HISTORY OF OTHER VENOUS THROMBOSIS AND EMBOLISM 09/15/[address] active 11 UNSPECIFIED ASTHMA, UNCOMPLICATED 09/15/[address] active 12 WEAKNESS 09/15/[address] active Reason for Referral No Reasons for Referral Entered Social History Social History Observation Description Start Date End Date Code Code System Current Smoking Status Tobacco smoking consumption unknown 140845522 SNOMED CT Sex Assigned At Male 1960 [address]58-5 [facility] Gender Identity Vital Signs Code Code System Vitals Name Values and Units Timing Information 8462-4 LOINC Blood Pressure-Diastolic Value=47 Un its=mmHg 10/08/2017 8480-6 LOINC Blood Pressure-Systolic Pxnbo=124 Un its=mmHg 10/08/2017 8310-5 LOINC Body Temperature Value=98.2 Units= F 10/08/2017 8867-4 LOINC Heart rate Value=63.0 Units=/min 11/2017 07554-7 LOINC O2 % BldC Oximetry Value=96.0 Units= % 10/08/2017 9279-1 [facility] Respiratory Rate Value=14.0 Units=/m in 10/07/2017 06859-3 [facility] Pain Level Value=1.0 10/06/2017 53299-1 [facility] Weight Yzxqx=852.6 Units=Lbs 07/2017 8302-2 [facility] Height Value=67.0 Units=Inches 09/20/2017
[2024-10-26 16:52] LABS: MANUAL DIFF FLAG NO
[2024-10-26 16:57] LABS: Hematocrit 35.6 % (42.0-52.0); Hemoglobin 12.4 g/dl (14.0-18.0); Imm Gran Abs Auto 0.03 X10*3/uL (0.00-0.03); Imm Gran Pct Auto 0.3 % (0.0-0.4); Lymphocytes Absolute Auto 1.7 X10*3/uL (1.2-4.9); Mean Corpuscular HGB Conc 34.8 g/dl (31.0-36.0); Mean Corpuscular Hemoglobin 28.4 pg (27.0-33.0); Mean Corpuscular Volume 81.7 fL (80.0-98.0); NRBC Abs Auto 0.000 X10*3/uL (0.0-0.012); NRBC Pct Auto 0.0 /100WBC (0.0-0.2); Platelet Count 188 X10*3/uL (160-400); Red Blood Count 4.36 X10*6/uL (4.60-5.80); White Blood Count 8.9 X10*3/uL (4.8-10.8)
[2024-10-26 17:03] LABS: INTERNATIONAL NORM RATIO 1.2 (0.9-1.1); Prothrombin Time 13.5 SEC (10.9-12.4)
[2024-10-26 17:09] LABS: Anion Gap 17 (12-20); Blood Urea Nitrogen 16 mg/dL (9-16); Calcium 8.7 mg/dL (8.4-10.2); Carbon Dioxide 26 mmol/L (22-29); Chloride 100 mmol/L (96-108); Creatinine Clr Calc Pharmacy 86.7; Estimated Glomerular Filt Rate > 60; Magnesium 1.9 mg/dL (1.6-2.6); Potassium 3.7 mmol/L (3.3-5.1); Sodium 139 mmol/L (135-145)
[2024-10-26] MEDS: iohexoL 350 MG/ML 100 ML INFUS..BTL 85 ML IV (18:34)
[2024-10-26 19:34] LABS: Cannabinoid Screen Urine Not Detected (Not Detect)
[2024-10-26 20:00] VITALS: BP 129/76; PULSE 108; RESP 16; TEMP 36.7; O2SAT 92
[2024-10-26 20:06] VITALS: BP 129/76; PULSE 108; RESP 16; TEMP 36.7; O2SAT 92
== END 2024-10-26 20:44 | disposition home or self-care (01) ==
PROVIDERS: Emergency Provider Student in an Organized Health Care Education/Training Program; PCP Internal Medicine
DX: R91.1 Solitary pulmonary nodule (principal); M25.011 Hemarthrosis, right shoulder; R07.89 Other chest pain; M25.511 Pain in right shoulder; I45.10 Unspecified right bundle-branch block; Z51.81 Encounter for therapeutic drug level monitoring; Z79.899 Other long term (current) drug therapy; Z79.01 Long term (current) use of anticoagulants; F17.210 Nicotine dependence, cigarettes, uncomplicated
CPT/HCPCS: 36415; 71275; 73030; 74177; 80048; 80307; 83735; 85025; 85610; 93005; 99285; Q9967; S9485

== ENCOUNTER → 2024-10-26 16:35 | Outpatient (BNV) | payer OTHER, SELFPAY | PROVIDERS: Emergency Provider Student in an Organized Health Care Education/Training Program; PCP Internal Medicine; Visit Provider Internal Medicine | DX: I45.2 Bifascicular block (principal) | CPT/HCPCS: 93010 ==

== ENCOUNTER 2024-10-29 20:42 | Emergency (ER) | payer OTHER, SELFPAY ==
[2024-10-29 20:44] VITALS: BP 107/47; BP 109/73; PULSE 81; PULSE 88; RESP 15; TEMP 36.7; O2SAT 18; O2SAT 92; BMI 25.5
--- OUTSIDE RECORDS SUMMARY | 2024-10-29 21:22 | XMS_ITS | Clinical Summary ---
Author Organization [facility] Address [address] [place] [address] Phone Care Team Providers Care Uniform Designer Name Role Phone Cristhian Delgado Primary Care [...] walking, not elsewhere classified 12/12/2022 Alcoholic polyneuropathy ([facility] V24) Acute embolism and thrombosis of other specified veins 12/12/2022 Alcohol abuse with withdrawa l, uncomplicated ([facility] V24, [facility] V28) 12/12/2022 Chronic obstructive pulmonar y disease with (acute) exacerbation ([facility] V24, [facility] V28) 12/12/2022 Resolved Problems Problem Noted Date Diagnosed Date Resolved Date Acute hypoxemic respiratory failure ([facility] V24, [facility] V28) 03/17/2024 03/18/2024 Surgical History Surgery Date Site/Laterality Comments IVC FILTER Medical History Medical History Date Comments COPD (chronic obstructive pulmonary disease) ([facility] V24, [facility] V28) Neuropathy Social History Tobacco Use Types [...] Indicated Coronavirus 03/15/2024 03/15/2024 Insurance [place]ID - [place] [facility] MEDIC[facility] Member Subscriber Plan / Payer (Ef fective 2023-Present) Name:GIO ZEE Relation to Subscriber:Self Name:Gio Zee Payer ID:[id number] Group ID:[id number] Type:Not on file Address: [address] [place] [address] Advance Directives Documents on File Type Date Recorded Patient Technical Marketing Engineer Expl anation Health Care Decision (hx) 05/18/2017 [...] currently active code status orders. Care Teams Uniform Designer Relationship Specialty Start Date End Date Cristhian Delgado DO [address] [facility] [address] [place], [place] PCP - General Internal Medicine 02/01/24
--- OUTSIDE RECORDS SUMMARY | 2024-10-29 21:22 | XMS_ITS ---
Author Organization [facility] Care Team Providers Care Butcher All Round Name Role Phone Landry Thomas Unavailable Unavailable [...] Address Phone Organization Dates Landry Thomas [address] [place], [address], [place] (Office[place] : [facility] 10/02/2017 - 10/08/2017 Viridiana Miller [address] [place] [address], [place], [address], [place] (Office[place] : [facility] 10/02/2017 - 10/08/2017 Giovani Juarez [address] [place] [address] [address], [place], [address], [place] (Office): : [facility] 10/02/2017 - 10/08/2017 Breanna Ritter [address], [place], [address], [facility] (Office): : [facility] 10/02/2017 - 10/08/2017 Regine Gonzalez [address], [place], [address], [place] (Office): : [facility] 10/02/2017 - 10/08/2017 Ginette Hernández [address], [place], [address], [place] (Office): : [facility] 10/02/2017 - 10/08/2017 aMrgot Fuentes [address], [place], [address], [place] (Office): : [facility] 10/02/2017 - 10/08/2017 Esther Markham [address], [place], [address], [facility] (Office): : [facility] 10/02/2017 - 10/08/2017 Malena Gayle [address], [place], [address], [place] (Office): : [facility] 10/02/2017 - 10/08/2017 Immunizations Immunization Status Vaccine Details Vaccine Code CodeSystem Date Notes Pneumovax Dose 1 completed pneumococcal polysaccharide vaccine, 23 valent lotNumber: [id number] expiry: 11/10/2018 Mfg: [employer] [...] CodeSystem Concern Status 1 OTHER MALAISE 10/04/[address] act darlyn 2 MUSCLE WEAKNESS (GENERALIZED) 10/02/[address] active 3 UNSPECIFIED ATRIAL FIBRILLATION 10/02/[address] active 4 ALCOHOLIC HEPATITIS WITHOUT ASCITES 09/29/[address] active 5 ACUTE VIRAL HEPATITIS, UNSPECIFIED 09/15/[address] active 6 ALCOHOL DEPENDENCE WITH WITHDRAWAL, UNSPECIFIED 09/15/[address] active 7 ALCOHOL DEPENDENCE, UNCOMPLICATED 09/15/[address] active 8 CHRONIC OBSTRUCTIVE PULMONARY DISEASE WITH (ACUTE) EXACERBATION 09/15/[address] active 9 OTHER ABNORMALITIES OF GAIT AND MOBILITY 09/15/[address] active 10 PERSONAL HISTORY OF OTHER VENOUS THROMBOSIS AND EMBOLISM 09/15/[address] active 11 UNSPECIFIED ASTHMA, UNCOMPLICATED 09/15/[address] active 12 WEAKNESS 09/15/[address] active Reason for Referral No Reasons for Referral Entered Social History Social History Observation Description Start Date End Date Code Code System Current Smoking Status Tobacco smoking consumption unknown 840104296 SNOMED CT Sex Assigned At Male 1960 [address]-4 [facility] Gender Identity Vital Signs Code Code System Vitals Name Values and Units Timing Information 8462-4 LOINC Blood Pressure-Diastolic Value=47 Un its=mmHg 10/08/2017 8480-6 LOINC Blood Pressure-Systolic Bpcmp=165 Un its=mmHg 10/08/2017 8310-5 LOINC Body Temperature Value=98.2 Units= F 10/08/2017 8867-4 LOINC Heart rate Value=63.0 Units=/min 11/2017 22830-0 LOINC O2 % BldC Oximetry Value=96.0 Units= % 10/08/2017 9279-1 [facility] Respiratory Rate Value=14.0 Units=/m in 10/07/2017 00370-7 [facility] Pain Level Value=1.0 10/06/2017 40426-7 [facility] Weight Ourzr=994.6 Units=Lbs 07/2017 8302-2 [facility] Height Value=67.0 Units=Inches 09/20/2017
--- NOTE | 2024-10-29 22:07 | PC.NURSE ---
late entry- pt from home, a&ox3, respirations even and unlabored. pt reports drinking 2 pints of [employer], reports he would like detox at this time. pt states he was seen here previously and at another hospital this am and reports he left [facility] as he thought he could detox at home. pt reports he is unsure of etoh withdraws. pt denies si/hi. pt changed over by security and jb, belongings in [facility]
[2024-10-29 22:13] LABS: MANUAL DIFF FLAG NO
[2024-10-29 22:15] LABS: Hematocrit 31.0 % (42.0-52.0); Hemoglobin 10.7 g/dl (14.0-18.0); Imm Gran Abs Auto 0.03 X10*3/uL (0.00-0.03); Imm Gran Pct Auto 0.5 % (0.0-0.4); Lymphocytes Absolute Auto 1.3 X10*3/uL (1.2-4.9); Mean Corpuscular HGB Conc 34.5 g/dl (31.0-36.0); Mean Corpuscular Hemoglobin 28.9 pg (27.0-33.0); Mean Corpuscular Volume 83.8 fL (80.0-98.0); NRBC Abs Auto 0.000 X10*3/uL (0.0-0.012); NRBC Pct Auto 0.0 /100WBC (0.0-0.2); Platelet Count 145 X10*3/uL (160-400); Red Blood Count 3.70 X10*6/uL (4.60-5.80); White Blood Count 5.7 X10*3/uL (4.8-10.8)
[2024-10-29 22:26] VITALS: BP 105/50; PULSE 72; RESP 16; TEMP 36.6; O2SAT 98
[2024-10-29 22:29] LABS: Alanine Aminotransferase 12 U/L (0-40); Albumin Level 3.8 g/dL (3.5-5.0); Alkaline Phosphatase 98 U/L (39-117); Anion Gap 14 (12-20); Aspartate Amino Transferase 26 U/L (5-37); Blood Urea Nitrogen 10 mg/dL (9-16); Calcium 8.4 mg/dL (8.4-10.2); Carbon Dioxide 23 mmol/L (22-29); Chloride 110 mmol/L (96-108); Creatinine Clr Calc Pharmacy 99.6; Estimated Glomerular Filt Rate > 60; Potassium 3.8 mmol/L (3.3-5.1); Sodium 143 mmol/L (135-145); Total Protein 6.5 g/dL (6.5-8.0)
[2024-10-30 01:14] VITALS: RESP 17
--- NOTE | 2024-10-30 06:30 | ED.ALCOHOL ---
HPI - Alcohol General Chief Complaint: ETOH/Substance Use Stated Complaint: ETOH Time Seen by Provider: 10/29/24 22:01 Source: patient, EMS and old records reviewed Mode of arrival: EMS Limitations: altered mental status (Intoxicated) History of Present Illness ED Provider: Dr. Radha Downs HPI narrative: 64-year-old male with history of alcohol use disorder presenting with request for alcohol detox. Patient states that he left this hospital 2 days ago AMA wanting to detox at home. Admits he does not feel that he is safe to do that anymore. Drank 2 pt of [employer] whiskey prior to arrival. Denies history of alcohol withdrawal seizure. Denies suicidal ideations. No visual or auditory hallucinations. Denies falls or injuries. No recent illness including fever, cough or cold-type symptoms, chest pain, difficulty breathing, abdominal pain, nausea, vomiting, diarrhea, urinary complaints, known sick contacts or travel. Related Data Home Medications ?Medication ?Instructions ?Recorded ?Confirmed apixaban 5 mg tablet (Eliquis) 5 mg PO BID 08/29/22 06/08/23 folic acid 1 mg tablet 1 mg PO DAILY 06/08/23 06/08/23 hydroxyzine pamoate 25 mg capsule 25 - 50 mg PO TID PRN Anxiety 06/08/23 06/08/23 sertraline 100 mg tablet 100 mg PO DAILY 06/08/23 06/08/23 Previous Rx's ?Medication ?Instructions ?Recorded prednisone 10 mg tablet See Taper PO DIRECTED #20 tabs 06/09/23 thiamine mononitrate (vit B1) 100 100 mg PO DAILY #90 tabs 06/09/23 mg tablet azithromycin 250 mg tablet See Rx Instructions PO .COMPLEX #6 10/26/24 tabs prednisone 20 mg tablet 40 mg (2 x 20 mg) PO DAILY 5 days 10/26/24 #10 tabs Allergies Allergy/AdvReac Type Severity Reaction Status Date / Time Peanut Butter Allergy Facial Verified 10/29/24 20:50 Swelling raspberry Allergy Facial Verified 10/29/24 20:50 Swelling PMFSH Past Medical History Medical History Alcohol withdrawal Alcohol dependence Presence of IVC filter Acute and chronic respiratory failure with hypoxia COPD (chronic obstructive pulmonary disease) Alcohol use disorder, severe, dependence Tobacco abuse Subdural hematoma DVT (deep venous thrombosis) COPD (chronic obstructive pulmonary disease) Asthma Neuropathy Alcohol abuse Social History Social History Household Members: None Housing: House Do you presently have visiting nurse or other home services: No Alcohol intake: current Alcohol intake frequency: 3 or more drinks per day Alcohol type: hard liquor Comment: pt refuses high fall risk interventions Patient Tobacco Use Status: Current everyday Tobacco user Tobacco use type: Cigarette Cigarette Packs Per Day: 1 Cigarettes Per Day: 20.0 Smoked in Last 30 Days: No e-Cigarette/Vaping Use: Never Used Second Hand Smoke Exposure: No Use of substances other than those prescribed or required for medical reasons: No Substance Use Type: Marijuana Advance Directives: Yes Advance Directives on File: Yes Advance Directives Date on File: 03/05/22 Do you have a plan to hurt others: No Plan service: No Current occupational status: disabled Physical Exam ED Vital Signs: Vital Signs - 24 hr 10/29/24 20:44 10/29/24 22:26 10/30/24 01:14 Temperature 98.1 F 97.8 F Pulse Rate 81 72 Respiratory Rate 15 16 17 Blood Pressure 107/47 L 105/50 L Pulse Oximetry 92 98 Oxygen Delivery Method Room Air Room Air 10/30/24 06:38 10/30/24 09:03 Temperature 98.4 F Pulse Rate 71 76 Respiratory Rate 18 Blood Pressure 127/75 138/64 Pulse Oximetry 95 93 Oxygen Delivery Method Room Air Room Air BMI result Body Mass Index 25.5 Course Reevaluation(s) Reevaluation #1: Patient is referred to detox by our care team we will continue to monitor Time: 09:02 Medical Decision Making Medical Decision Making MDM Narrative: 64-year-old male with history of alcohol use disorder presenting with request for alcohol detox. Differential diagnosis includes alcohol intoxication, alcohol withdrawal, substance use disorder, decompensated mental illness including depression and anxiety, among many others. We will initiate medical clearance and recovery team/care team consult. 6:35 AM 10/30/2024 (Dr. Radha Downs, D.O.) patient continues to rest comfortably, CIWA score remains low. Plan for care team/recovery team consult and we will be signing out to oncoming provider pending final disposition. Differential Diagnosis Differential Diagnoses: The differential diagnosis associated with the presentation includes (As above) Admission/Observation Consideration of admission/observation: Escalation of care including admission/observation considered Consult Healthcare Provider Management of the patient was discussed with: Behavioral Health Provider Lab Data MDM Lab Attestation statement: I reviewed the patient's lab results. 10/29/24 21:58 10/29/24 21:58 Labs: Lab Results 10/29/24 10/30/24 Range/Units 21:58 09:39 WBC 5.7 (4.8-10.8) X10*3/uL RBC 3.70 L (4.60-5.80) X10*6/uL Hgb 10.7 L (14.0-18.0) g/dl Hct 31.0 L (42.0-52.0) % MCV 83.8 (80.0-98.0) fL MCH 28.9 (27.0-33.0) pg MCHC 34.5 (31.0-36.0) g/dl RDW 13.2 (11.0-16.0) % Plt Count 145 L (160-400) X10*3/uL MPV 9.1 L (9.4-12.4) fL Immature Gran % (Auto) 0.5 H (0.0-0.4) % Neut % (Auto) 64.5 (45-73) % Lymph % (Auto) 23.5 (20-40) % Antelope % (Auto) 7.4 (2-11) % Eos % (Auto) 3.2 (0-4) % Baso % (Auto) 0.9 (0-2) % Lymph # (Auto) 1.3 (1.2-4.9) X10*3/uL Antelope # (Auto) 0.4 (0.1-1.2) X10*3/uL Eos # (Auto) 0.2 (0.0-0.4) X10*3/uL Baso # (Auto) 0.1 (0.0-0.2) X10*3/uL Abs Immat Gran (auto) 0.03 (0.00-0.03) X10*3/uL Absolute Neuts (auto) 3.6 (2.0-8.3) x10*3/uL Absolute Nucleated RBC 0.000 (0.0-0.012) X10*3/uL Nucleated RBC % (auto) 0.0 (0.0-0.2) /100WBC Sodium 143 (135-145) mmol/L Potassium 3.8 (3.3-5.1) mmol/L Chloride 110 H (96-108) mmol/L Carbon Dioxide 23 (22-29) mmol/L Anion Gap 14 (12-20) BUN 10 (9-16) mg/dL Creatinine 0.70 (0.5-1.4) mg/dL Estim Creat Clear Calc 99.6 Estimated GFR > 60 Random Glucose 98 (60-115) mg/dL Calcium 8.4 (8.4-10.2) mg/dL Total Bilirubin 0.8 (0.0-1.0) mg/dL AST 26 (5-37) U/L ALT 12 (0-40) U/L Alkaline Phosphatase 98 (39-117) U/L Total Protein 6.5 (6.5-8.0) g/dL Albumin 3.8 (3.5-5.0) g/dL Urine Opiates Screen Not Detected (Not Detect) Ur Buprenorphine Scrn Not Detected (Not Detect) ng/mL Ur Oxycodone Screen Not Detected (Not Detect) ng/mL Urine Methadone Screen Not Detected (Not Detect) ng/mL Urine Fentanyl Screen Not Detected (Not Detect) Ur Barbiturates Screen Not Detected (Not Detect) Ur Phencyclidine Scrn Not Detected (Not Detect) Ur Amphetamines Screen Not Detected (Not Detect) U Benzodiazepines Scrn Not Detected (Not Detect) Urine Cocaine Screen Not Detected (Not Detect) U Marijuana (THC) Screen Not Detected (Not Detect) Ethyl Alcohol 168 mg/dL Medications Administered Discontinued Medications Generic Name Dose Route Start Last Admin Trade Name Freq PRN Reason Stop Dose Admin Acetaminophen 650 mg 10/30/24 06:00 10/30/24 06:17 Acetaminophen 325 Mg Tablet PO 10/30/24 06:01 650 mg ONCE ONE Administration Discharge Plan Discharge Clinical Impression: Alcoholic intoxication, Alcohol abuse Patient Disposition: Home, Self-Care Additional Instructions: return for worsening symptoms follow up with detox facility Prescriptions: No Action Eliquis 5 mg tablet 5 mg PO BID sertraline 100 mg tablet 100 mg PO DAILY folic acid 1 mg tablet 1 mg PO DAILY hydroxyzine pamoate 25 mg capsule 25 - 50 mg PO TID PRN (Reason: Anxiety) thiamine mononitrate (vit B1) 100 mg Tablet 100 mg PO DAILY Qty: 90 0RF prednisone 10 mg tablet See Taper PO DIRECTED Qty: 20 0RF Taper: Prednisone 40 mg daily for 2 Days and 0 Hour 30 mg daily for 2 Days and 0 Hour 20 mg daily for 2 Days and 0 Hour 10 mg daily for 2 Days and 0 Hour Rx Instructions: see taper instructions azithromycin 250 mg tablet See Rx Instructions .ROUTE .COMPLEX Qty: 6 0RF Rx Instructions: For 250 mg dose pack: take 500 mg today (day 1), then 250 mg for 4 days (days 2-5) prednisone 20 mg tablet 40 mg PO DAILY 5 Days Qty: 10 0RF Print Language: Swedish
[2024-10-30 06:38] VITALS: BP 127/75; PULSE 71; TEMP 36.9; O2SAT 95
--- NOTE | 2024-10-30 08:43 | MHC.CARE ---
CARE team met with Pt at bedside. Pt continues to request a detox referral and one will be placed to [facility].
[2024-10-30 09:03] VITALS: BP 138/64; PULSE 76; RESP 18; O2SAT 93
[2024-10-30 10:08] LABS: Cannabinoid Screen Urine Not Detected (Not Detect)
[2024-10-30 11:48] VITALS: BP 138/64; PULSE 76; RESP 18; TEMP 36.4; O2SAT 93
== END 2024-10-30 11:48 | disposition home or self-care (01) ==
PROVIDERS: Emergency Provider Emergency Medicine; PCP Internal Medicine
DX: F10.129 Alcohol abuse with intoxication, unspecified (principal); Y90.6 Blood alcohol level of 120-199 mg/100 ml; R41.82 Altered mental status, unspecified; Z51.81 Encounter for therapeutic drug level monitoring; Z79.899 Other long term (current) drug therapy; F17.210 Nicotine dependence, cigarettes, uncomplicated
CPT/HCPCS: 36415; 80053; 80307; 85025; 99285; S9485

== ENCOUNTER 2024-11-26 14:28 | Emergency (ER) | payer OTHER, SELFPAY ==
--- NOTE | 2024-11-26 14:35 | ED.GENADULT ---
HPI - General Adult General Chief complaint: ETOH/Substance Use Stated complaint: ETOH WANTS DETOX Time Seen by Provider: 11/26/24 17:06 Source: patient and EMS Mode of arrival: EMS Limitations: other (intoxicated ) History of Present Illness ED Provider: HIMA Walter HPI narrative: This is a 64-year-old male history of alcohol abuse, frequent falls presenting to the emergency department seeking detox, patient reports that he wants to stop drinking. Denies visual, auditory tactile hallucinations. Denies SI and HI. No medical complaints. He states he is feeling better he would just like to go to detox and stop drinking. He has not fallen since his evaluation. Patient denies chest pain, shortness of breath, nausea, vomiting, abdominal pain, headache, vision changes, dizziness, weakness. Denies recent trauma. Patient states he last drank way earlier this morning, regullarly drinks [employer] comfort 1-2 pints Related Data Home Medications ?Medication ?Instructions ?Recorded ?Confirmed apixaban 5 mg tablet (Eliquis) 5 mg PO BID 08/29/22 06/08/23 folic acid 1 mg tablet 1 mg PO DAILY 06/08/23 06/08/23 hydroxyzine pamoate 25 mg capsule 25 - 50 mg PO TID PRN Anxiety 06/08/23 06/08/23 sertraline 100 mg tablet 100 mg PO DAILY 06/08/23 06/08/23 Previous Rx's ?Medication ?Instructions ?Recorded prednisone 10 mg tablet See Taper PO DIRECTED #20 tabs 06/09/23 thiamine mononitrate (vit B1) 100 100 mg PO DAILY #90 tabs 06/09/23 mg tablet azithromycin 250 mg tablet See Rx Instructions PO .COMPLEX #6 10/26/24 tabs prednisone 20 mg tablet 40 mg (2 x 20 mg) PO DAILY 5 days 10/26/24 #10 tabs Allergies Allergy/AdvReac Type Severity Reaction Status Date / Time Peanut Butter Allergy Facial Verified 11/26/24 14:44 Swelling raspberry Allergy Facial Verified 11/26/24 14:44 Swelling Review of Systems Review of Systems: Yes all other systems are reviewed and are negative PMFSH Past Medical History Attestation statement: The following information was validated with the patient. Source: old records reviewed and nursing notes reviewed Medical History Alcohol withdrawal Alcohol dependence Presence of IVC filter Acute and chronic respiratory failure with hypoxia COPD (chronic obstructive pulmonary disease) Alcohol use disorder, severe, dependence Tobacco abuse Subdural hematoma DVT (deep venous thrombosis) COPD (chronic obstructive pulmonary disease) Asthma Neuropathy Alcohol abuse Social History Social History Household Members: None Housing: House Do you presently have visiting nurse or other home services: No Alcohol intake: current Alcohol intake frequency: 3 or more drinks per day Alcohol type: hard liquor Comment: pt refuses high fall risk interventions Patient Tobacco Use Status: Current everyday Tobacco user Tobacco use type: Cigarette Cigarette Packs Per Day: 1 Cigarettes Per Day: 20.0 Smoked in Last 30 Days: Yes e-Cigarette/Vaping Use: Never Used Second Hand Smoke Exposure: No Use of substances other than those prescribed or required for medical reasons: No Substance Use Type: Marijuana Advance Directives: Yes Advance Directives on File: Yes Advance Directives Date on File: 03/05/22 service: No Current occupational status: disabled Physical Exam ED Exam Exam: Appearance: Alert.? Oriented X3.? No acute distress.?+ smells like alcohol Head: Normocephalic, atraumatic, no step-offs or deformities Eyes: Pupils equal, round and reactive to light.? ENT: Pharynx normal.? Neck: Normal inspection.? Neck supple.? CVS: Normal heart rate and rhythm.? Pulses normal.? Respiratory: No respiratory distress.? Breath sounds normal.? Abdomen: Soft and nontender.? Skin: Skin warm and dry.? Normal skin color.? Normal skin turgor.? Extremities: No lower extremity edema.? No calf ttp. 5/5 strength to bilateral upper and lower extremities Back: No midline tenderness, no C-spine tenderness, full range of motion, no CVA tenderness bilaterally Neuro: Oriented X 3.? No motor deficit.? No sensory deficit. CN 2-12 intact Vital Signs: Vital Signs - 24 hr 11/26/24 14:45 11/26/24 16:00 Temperature 98.0 F Pulse Rate 80 85 Respiratory Rate 18 18 Blood Pressure 110/70 110/75 Pulse Oximetry 93 94 Oxygen Delivery Method Room Air Room Air BMI result Body Mass Index 20.5 Vital signs state Course Reevaluation(s) Reevaluation #1: CBC with a normocytic anemia appears to be around patient's baseline maybe slightly higher than usual due to hemoconcentration poor p.o. intake. Chemistry with low magnesium 1.4, will give 2 of IV Mag at this time. Patient's total bilirubin elevated 1.4 it has been this high in the past, transaminases also elevated in a nearly 2-1 fashion concerning for chronic alcohol abuse. Alk-phos 157. No abdominal tenderness to palpation no indication for abdominal ultrasound or CT. Patient's ethanol level 235. Will start seizure precautions at this time to ensure patient does not have alcohol withdrawal seizures.WA ordered Patient seen by recovery who actively is helping in a detox bed search. Time: 16:55 Reevaluation #2: If patient wants to leave he is able to leave he is waiting to do his intake however he is likely not going to go old due to lack of desire. At this time patient to be placed into observation to allow more time to be placed into detox bed however if patient chooses not to go, he should be discharged. Time: 17:53 Reevaluation #3: Patient seen by care team - detox bed at [facility] available, patient willing to be transported there for treatment. care team arranging transportation. physician observation ended at 2151. Medications Administered Discontinued Medications Generic Name Dose Route Start Last Admin Trade Name Freq PRN Reason Stop Dose Admin Magnesium Sulfate 2 gm in 50 mls @ 25 mls/hr 11/26/24 15:56 11/26/24 19:00 Magnesium Sulfate/H2o IV 11/26/24 17:55 Infused ONCE ONE Infusion Medical Decision Making Medical Decision Making [facility] Narrative: 64-year-old male presents requesting alcohol detox. Physical examination benign other than patient smelling like alcohol Likely alcohol intoxication seeking detox. No signs of acute trauma this time. I do not suspect metabolic derangements or infection. Will rule out electrolyte abnormalities. And polysubstance abuse. Plan at this time medical clearance evaluation by [facility]. Differential Diagnosis Differential Diagnoses: The differential diagnosis associated with the presentation includes (Likely alcohol intoxication seeking detox. No signs of acute trauma this time. I do not suspect metabolic derangements or infection. Will rule out electrolyte abnormalities. And polysubstance abuse.) Admission/Observation Consideration of admission/observation: Escalation of care including admission/observation considered Lab Data [facility] Lab Attestation statement: I reviewed the patient's lab results. 11/26/24 15:22 11/26/24 15:22 Labs: Lab Results 11/26/24 Range/Units 15:22 WBC 5.0 (4.8-10.8) X10*3/uL RBC 4.57 L D (4.60-5.80) X10*6/uL Hgb 13.8 L D (14.0-18.0) g/dl Hct 39.7 L D (42.0-52.0) % MCV 86.9 (80.0-98.0) fL MCH 30.2 (27.0-33.0) pg MCHC 34.8 (31.0-36.0) g/dl RDW 16.3 H (11.0-16.0) % Plt Count 113 L (160-400) X10*3/uL MPV 9.6 (9.4-12.4) fL Immature Gran % (Auto) 0.4 (0.0-0.4) % Neut % (Auto) 67.0 (45-73) % Lymph % (Auto) 18.3 L (20-40) % Cascade % (Auto) 13.5 H (2-11) % Eos % (Auto) 0.2 (0-4) % Baso % (Auto) 0.6 (0-2) % Lymph # (Auto) 0.9 L (1.2-4.9) X10*3/uL [place]ascade # (Auto) 0.7 (0.1-1.2) X10*3/uL Eos # (Auto) 0.0 (0.0-0.4) X10*3/uL Baso # (Auto) 0.0 (0.0-0.2) X10*3/uL Abs Immat Gran (auto) 0.02 (0.00-0.03) X10*3/uL Absolute Neuts (auto) 3.3 (2.0-8.3) x10*3/uL Absolute Nucleated RBC 0.000 (0.0-0.012) X10*3/uL Nucleated RBC % (auto) 0.0 (0.0-0.2) /100WBC Smear Tech's Comments VERIFIED Sodium 141 (135-145) mmol/L Potassium 3.7 (3.3-5.1) mmol/L Chloride 98 (96-108) mmol/L Carbon Dioxide 28 (22-29) mmol/L Anion Gap 19 (12-20) BUN 8 L (9-16) mg/dL Creatinine 0.71 (0.5-1.4) mg/dL Estim Creat Clear Calc 93.5 Estimated GFR > 60 Random Glucose 99 (60-115) mg/dL Calcium 9.3 D (8.4-10.2) mg/dL Magnesium 1.4 L* (1.6-2.6) mg/dL Total Bilirubin 1.4 H (0.0-1.0) mg/dL AST 74 H (5-37) U/L ALT 54 H (0-40) U/L Alkaline Phosphatase 157 H (39-117) U/L Total Protein 7.5 (6.5-8.0) g/dL Albumin 4.4 (3.5-5.0) g/dL Ethyl Alcohol 235 mg/dL Independent Historian Clinical information obtained from an independent historian. History obtained from or confirmed by: EMS External Record Review External record reviewed: Inpatient record, Office record, Outpatient record, Prior outpatient labs, Prior outpatient radiology, Primary care record and Outside ED record Chronic Conditions Patient?s care impacted by: Other (seehpi ) Social Determinants Patient?s care significantly limited by Social Determinants of Health including: Inadequate housing, Low income, Alcoholism and drug addiction in family, Problems related to primary support group, Unemployment, Problems related to employment and Other Social Determinant of Health Critical Care Time Critical Care Time Critical Care Time: Yes Total Critical Care Time: 35 Attestation: I attest to this time spent taking care of the patient, obtaining history, physical, reviewing labs, imaging, treatment of patients condition +/- specialist/hospitalist consult +/- procedure Discharge Plan Discharge Clinical Impression: Alcohol abuse, Hypomagnesemia Patient Disposition: Xfer Other Transfer Details: detox facility- [facility] Instructions: Alcohol Use Disorder (ED) Additional Instructions: You presented to the ED today requesting detox. Your work up showed low magnesium levels in your blood - you were given magnesium in ED for repletion. Your work up is otherwise reassuring. You have met with our care team today and they have found you a bed at [facility]. They are providing you with transportation there. Return with any new or worsening symptoms. In the case of an emergency call 911. Prescriptions: No Action Eliquis 5 mg tablet 5 mg PO BID sertraline 100 mg tablet 100 mg PO DAILY folic acid 1 mg tablet 1 mg PO DAILY hydroxyzine pamoate 25 mg capsule 25 - 50 mg PO TID PRN (Reason: Anxiety) thiamine mononitrate (vit B1) 100 mg Tablet 100 mg PO DAILY Qty: 90 0RF prednisone 10 mg tablet See Taper PO DIRECTED Qty: 20 0RF Taper: Prednisone 40 mg daily for 2 Days and 0 Hour 30 mg daily for 2 Days and 0 Hour 20 mg daily for 2 Days and 0 Hour 10 mg daily for 2 Days and 0 Hour Rx Instructions: see taper instructions azithromycin 250 mg tablet See Rx Instructions .ROUTE .COMPLEX Qty: 6 0RF Rx Instructions: For 250 mg dose pack: take 500 mg today (day 1), then 250 mg for 4 days (days 2-5) prednisone 20 mg tablet 40 mg PO DAILY 5 Days Qty: 10 0RF Print Language: Micronesian
[2024-11-26 14:39] VITALS: BP 110/83; PULSE 90; O2SAT 95; BMI 20.5
[2024-11-26 14:45] VITALS: BP 110/70; PULSE 80; RESP 18; TEMP 36.7; O2SAT 93
--- NOTE | 2024-11-26 14:45 | ECG_ITS ---
Test Reason : ALCOHOL INTOXICATION Blood Pressure : */* mmHG Vent. Rate : 83 BPM Atrial Rate : 83 BPM P-R Int : 144 ms QRS Dur : 132 ms QT Int : 396 ms P-R-T Axes : 76 -83 57 degrees QTcB Int : 465 ms Normal sinus rhythm Right bundle branch block Left anterior fascicular block Bifascicular block Abnormal ECG When compared with ECG of 26-Oct-2024 16:35, No significant change was found Referred By: Gladys Walter Electronically Signed By: Michael Alejandra
--- OUTSIDE RECORDS SUMMARY | 2024-11-26 15:03 | XMS_ITS | Clinical Summary ---
Author Organization 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) Acute embolism and thrombosis of other specified veins 12/12/2022 Alcohol abuse with withdrawa l, uncomplicated ([facility] V24, [facility] V28) 12/12/2022 Chronic obstructive pulmonar y disease with (acute) exacerbation ([facility] V24, [facility] V28) 12/12/2022 Resolved Problems Problem Noted Date Diagnosed Date Resolved Date Acute hypoxemic respiratory failure ([facility] V24, [facility] V28) 03/17/2024 03/18/2024 Surgical History Surgery Date Site/Laterality Comments IVC FILTER Medical History Medical History Date Comments COPD (chronic obstructive pulmonary disease) ([facility] V24, [facility] V28) Neuropathy Social History Tobacco Use Types Packs/Day Years Used Date Smoking Tobacco: Every Day Cigarettes Smokeless Tobacco: Current Tobacco Cessation:Ready to Q uit: No; Counseling Given: Not Answered Alcohol Use Standard Drinks/Week Comments Not Currently 0 (1 standard drink = 0.6 oz pur e alcohol) Interpersonal Safety Answer Date Record ed Physical Abuse Unrecognized value 03/18/2024 Verbal Abuse Unrecognized value 03/18/2024 Sex and Gender Information Value Date [...] 02/01/2022 Social Influencers of Health Screening 02/01/2022 Depression Screening 03/01/2024 Zoster Vaccines (2 of 2) 03/20/2024 01/24/2024 COVID-19 Vaccine (3 - 2024- season) 2024 01/28/2023, 03/25/2021 Influenza Vaccine (#1) 2024 , 03/21/2023, 01/28/2023, [...] Indicated Coronavirus 03/15/2024 03/15/2024 Insurance [place]ICAID - [place] [facility] MEDICARE Member Subscriber Plan / Payer (Ef fective 2023-Present) Name:GIO ZEE Relation to Subscriber:Self Name:Gio Zee Payer ID:[id number] Group ID:[id number] Type:Not on file Address: [address] [place] [id number] Advance Directives Documents on File Type Date Recorded 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 Care Teams Dairy Nutrition Specialist Relationship Specialty Start Date End Date Cristhian Delgado DO [address] [facility] [address] [place], [place] PCP - General Internal Medicine 02/01/24
--- OUTSIDE RECORDS SUMMARY | 2024-11-26 15:03 | XMS_ITS | Data Portability ---
Author Organization [facility], Telehealth Patient Home Address [address] [facility] [place] [address] Assessment Encounter Date Assessment Date Assessment LastModified by Organization Details LastModified Time 01/19/2024 01/19/2024 [id number] [place] [id number] (ADMINISTRATIVE ASST) MDM HIGH MUST MEET 2 OUT OF 3 ELEMENTS: PROBLEMS, DATA OR RISK ELEMENT 1: PROBLEMS 1 OR MORE CHRONIC ILLNESS W/SEVERE EXACERBATION, PROGRESSION MAY REQUIRE HOSPITAL LEVEL CARE OR 1 ACUTE OR CHRONIC ILLNESS OR INJURY THAT POSES A THREAT TO LIFE OR BODILY FUNCTION ELEMENT 2: DATA: MUST MEET 2 OF 3 CATEGORIES CATEGORY 1 REVIEW OF PRIOR EXTERNAL NOTES REVIEW OF THE RESULTS ORDERING OF EACH TEST ASSESSMENT REQUIRING INDEPENDENT HISTORIAN(S) CATEGORY 2: INDEPENDENT INTERPRETATION OF TESTS BY ANOTHER PROVIDER/SPECIALI ST CATEGORY 3: DISCUSSION OF MGT OR TEST INTERPRETATION W/EXTERNAL PHYSICIAN/SPECIAL IST ELEMENT 3: RISK HIGH RISK OF MORBIDITY FROM ADDITIONAL DIAGNOSTIC TESTING OR TREATMENT PROVIDER MUST THOROUGHLY DOCUMENT EACH ELEMENT THAT IS COVERED Not available 01/19/2024 11:54:32 03/22/2024 03/22/2024 [id number] [place] [id number] (ADMINISTRATIVE ASST) MDM MODERATE MUST MEET 2 OUT OF 3 ELEMENTS: PROBLEMS, DATA OR RISK ELEMENT 1: PROBLEMS ADDRESSED 1 OR MORE CHRONIC ILLNESS WITH EXACERBATION OR 2 OR MORE STABLE CHRONIC ILLNESSES OR 1 UNDIAGNOSED NEW PROBLEM OR 1 ACUTE ILLNESS W/SYMPTOMS OR 1 ACUTE COMPLICATED INJURY ELEMENT 2: DATA MUST MEET 1 OF 3 CATEGORIES CATEGORY 1: REVIEW OF PRIOR EXTERNAL NOTES, REVIEW OF RESULTS, ORDERING OF EACH TEST, ASSESSMENT REQUIRING INDEPENDENT HISTORIAN OR CATEGORY 2: INDEPENDENT INTERPRETATION OF TESTS BY ANOTHER PHYSICIAN OR SPECIALIST OR CATEGORY 3: DISCUSSION OF MGT OR TEST INTERPRETATION W/EXTERNAL PHYSICIAN OR SPECIALIST ELEMENT 3: RISK RISK OF COMPLICATIONS AND/OR MORBIDITY OR MORTALITY OF PATIENT MANAGEMENT PROVIDER MUST THOROUGHLY DOCUMENT EACH ELEMENT THAT IS COVERED Not available 03/22/2024 11:36:53 05/19/2024 05/19/2024 [id number] [place] [id number] (ADMINISTRATIVE ASST) MDM HIGH MUST MEET 2 OUT OF 3 ELEMENTS: PROBLEMS, DATA OR RISK ELEMENT 1: PROBLEMS 1 OR MORE CHRONIC ILLNESS W/SEVERE EXACERBATION, PROGRESSION MAY REQUIRE HOSPITAL LEVEL CARE OR 1 ACUTE OR CHRONIC ILLNESS OR INJURY THAT POSES A THREAT TO LIFE OR BODILY FUNCTION ELEMENT 2: DATA: MUST MEET 2 OF 3 CATEGORIES CATEGORY 1 REVIEW OF PRIOR EXTERNAL NOTES REVIEW OF THE RESULTS ORDERING OF EACH TEST ASSESSMENT REQUIRING INDEPENDENT HISTORIAN(S) CATEGORY 2: INDEPENDENT INTERPRETATION OF TESTS BY ANOTHER PROVIDER/SPECIALI ST CATEGORY 3: DISCUSSION OF MGT OR TEST INTERPRETATION W/EXTERNAL PHYSICIAN/SPECIAL IST ELEMENT 3: RISK HIGH RISK OF MORBIDITY FROM ADDITIONAL DIAGNOSTIC TESTING OR TREATMENT PROVIDER MUST THOROUGHLY DOCUMENT EACH ELEMENT THAT IS COVERED Not available 05/19/2024 15:01:00 06/07/2024 06/07/2024 [id number] [place] [id number] (ADMINISTRATIVE ASST) MDM MODERATE MUST MEET 2 OUT OF 3 ELEMENTS: PROBLEMS, DATA OR RISK ELEMENT 1: PROBLEMS ADDRESSED 1 OR MORE CHRONIC ILLNESS WITH EXACERBATION OR 2 OR MORE STABLE CHRONIC ILLNESSES OR 1 UNDIAGNOSED NEW PROBLEM OR 1 ACUTE ILLNESS W/SYMPTOMS OR 1 ACUTE COMPLICATED INJURY ELEMENT 2: DATA MUST MEET 1 OF 3 CATEGORIES CATEGORY 1: REVIEW OF PRIOR EXTERNAL NOTES, REVIEW OF RESULTS, ORDERING OF EACH TEST, ASSESSMENT REQUIRING INDEPENDENT HISTORIAN OR CATEGORY 2: INDEPENDENT INTERPRETATION OF TESTS BY ANOTHER PHYSICIAN OR SPECIALIST OR CATEGORY 3: DISCUSSION OF MGT OR TEST INTERPRETATION W/EXTERNAL PHYSICIAN OR SPECIALIST ELEMENT 3: RISK RISK OF COMPLICATIONS AND/OR MORBIDITY OR MORTALITY OF PATIENT MANAGEMENT PROVIDER MUST THOROUGHLY DOCUMENT EACH ELEMENT THAT IS COVERED Not available 06/07/2024 12:03:37 10/10/2024 10/10/2024 [id number] [place] [id number] (ADMINISTRATIVE ASST) MDM MODERATE MUST MEET 2 OUT OF 3 ELEMENTS: PROBLEMS, DATA OR RISK ELEMENT 1: PROBLEMS ADDRESSED 1 OR MORE CHRONIC ILLNESS WITH EXACERBATION OR 2 OR MORE STABLE CHRONIC ILLNESSES OR 1 UNDIAGNOSED NEW PROBLEM OR 1 ACUTE ILLNESS W/SYMPTOMS OR 1 ACUTE COMPLICATED INJURY ELEMENT 2: DATA MUST MEET 1 OF 3 CATEGORIES CATEGORY 1: REVIEW OF PRIOR EXTERNAL NOTES, REVIEW OF RESULTS, ORDERING OF EACH TEST, ASSESSMENT REQUIRING INDEPENDENT HISTORIAN OR CATEGORY 2: INDEPENDENT INTERPRETATION OF TESTS BY ANOTHER PHYSICIAN OR SPECIALIST OR CATEGORY 3: DISCUSSION OF MGT OR TEST INTERPRETATION W/EXTERNAL PHYSICIAN OR SPECIALIST ELEMENT 3: RISK RISK OF COMPLICATIONS AND/OR MORBIDITY OR MORTALITY OF PATIENT MANAGEMENT PROVIDER MUST THOROUGHLY DOCUMENT EACH ELEMENT THAT IS COVERED Not available 10/10/2024 16:44:08 Plan of Treatment Reminders Order Date Submit Date Provider Last Modified By Organization Details Last Modified Time Details Appointments FOLLOW UP 15 2024 04:15P M DR PEREZ Not available Not available Not available Lab vitamin D, 25-hydrox y, total, serum 2024 025 [facility], [address] [place] [address], [id number], 05/26/2024 12:27:32 vitamin B12 + folate, serum or blood 2024 025 [facility], [address] [place] [address], [address], 05/22/2024 12:30:46 CMP, serum or plasma 2024 025 [facility], [address] [place] [address], [address], 05/22/2024 12:30:45 Referral orthopedi c surgeon referral 2024 025 aravind Simpson MD, [address] [facility] [address], [place], [address], 06/14/2024 09:07:33 gastroent erologist referral - routine colonosco py 2024 025 aravind Parra MD, [address] [facility] [address], [place], [address], 06/20/2024 09:35:00 Procedures None recorded. Surgeries None recorded. Imaging XR, hand, 3 or more view 2024 025 [facility] ([facility]), [address] [place], [address], 06/02/2024 08:24:58 MRI, shoulder, w/o contrast 2024 025 [facility] ([facility]), [address] [place], [address], 06/05/2024 08:26:15 XR, hand, 3 or more view 2023 024 [facility] ([facility]), [address] [place], [address], 02/02/2024 08:29:38 Medication Orders triamcino lone acetonide 0.1 % topical cream 2024 025 [facility]armacy #[id number], [address] [place], [address], 10/10/2024 16:46:57 azithromy keyana 250 mg tablet 2024 025 [facility]/Pharmacy #[id number], [address] [place], [address], 06/07/2024 12:12:19 azithromy keyana 250 mg tablet 2024 025 [facility], [address] [place], [address], 05/19/2024 14:59:57 triamcino lone acetonide 0.1 % topical cream 2024 025 [facility], [address] [place], [address], 05/19/2024 15:02:20 triamcino lone acetonide 0.1 % topical cream 2023 024 [facility]/Pharmacy #[id number], [address] [place], [address], 01/19/2024 11:51:47 Multivita min 50 Plus tablet 2023 024 [facility]/Pharmacy #[id number], [address] [place], [address], 01/19/2024 11:50:00 Patient TargetsNo targets recorded. Patient Instructions Encounter Date Encounter Id Patient Instructions Last Modified By Organization Details Last Modified Time 01/19/2024 [id number] chronic obstructive pulmonary disease (COPD): care instructions Not available 01/19/2024 11:49:57 learning about copd and how to prevent lung infections Not available 01/19/2024 11:49:57 pulse oximetry* Not available 01/19/2024 11:49:57 neuropathic pain : care instructions Not available 01/19/2024 11:49:57 03/22/2024 [id number] pulse oximetry* CARLOS Not available 03/22/2024 11:49:54 05/19/2024 [id number] pulse oximetry* Not available 05/19/2024 14:59:35 dislocated shoulder: care instructions Not available 05/19/2024 14:59:35 shoulder dislocation: rehab exercises Not available 05/19/2024 14:59:35 neuropathic pain : care instructions Not available 05/19/2024 15:02:31 06/07/2024 [id number] pulse oximetry* CARLOS Not available 06/07/2024 11:42:18 10/10/2024 [id number] pulse oximetry* Not available 10/10/2024 16:46:54 Reason for Referral Psychologist Social Referral for Screening for malignant neoplasm of colon routine colonoscopy Referring Physician: Cristhian Perez, Internal Medicine, Encounter Date: 05/19/2024 Orthopedic Surgeon Referral for Dislocation of shoulder joint Referring Physician: Cristhian Perez, Internal Medicine, Encounter Date: 06/07/2024 Results Created Date Observation Date Name Description Value Unit Range Abnormal Flag Note LastModifiedBy Organization Detail LastModifiedTime 01/19/20 24 01/19/2024 pulse oxime try* Result 92 Not Available [facility] [address] [place] [address] [place], [address], 01/14/2024 11:32:45 03/22/19 25 03/22/2024 pulse oxime try* Result 95 Not Available [facility] Internal Medicine [address] [place] [address] D, [place], [address], 03/14/2024 11:54:52 05/20/19 25 05/19/2024 pulse oxime try* Result 91% Not Available [facility] Internal Medicine [address] [facility] [address], [place], [address], 05/17/2024 16:20:55 06/08/19 25 06/07/2024 pulse oxime try* Result 93 Not Available [facility] Internal Medicine [address] [facility] [address], [place], [address], 06/04/2024 08:15:20 10/11/1910/10/2024 pulse oxime try* Result 97 Not Available [facility] Internal Medicine [address] [facility] [address], [place], [address], 10/10/2024 07:45:39 06/06/19 25 06/01/2024 MRI, shoul georgina, w/o contr ast No observ ation record ed. [facility] Mri Department [address] [place], [address], 06/05/2024 15:20:13 10/27/19 25 10/26/2024 XR, shoul georgina No observ ation record ed. [address] (Medical Records) [address] [place], [address], 10/27/2024 09:20:23 10/27/19 25 10/26/2024 CT, angio gram, chest + abdom en + pelvi s, w/ contr ast No observ ation record ed. [address] (Medical Records) [address] [place], [address], 10/27/2024 09:20:53 10/28/19 25 10/26/2024 CT, angio gram, chest , w/ contr ast No observ ation record ed. [email or web address] [facility] (Medical Records) [address] [place], [address], 10/27/2024 10:02:41 Result Notes None recorded. Problems Name Problem SNOMED Code Status Onset Date Resolution Date Notes Provider Name and Address Organization Details Recorded Time Chronic obstructi ve pulmonary disease 88544317 [facility] Neuropath y 377638906 [facility] 15:16:41 Gout 93096959 Active 2018 [facility] 15:16:48 History of gallstone s 801773959 Active 2018 [place] Mo[place] [facility] 9 15:17:04 History of deep vein thrombosi s 003821781 Active 2018 s/p IVC filter KAMLESH Keen [address] [place] [address], [address], [facility] 9 14:35:19 Harmful pattern of use of alcohol 65945157 Active 2018 Kimberly Coelho NP, S [address] [place] [address], [address], [facility] 9 16:45:28 Tobacco dependenc e syndrome 38131621 Active 2018 Kimberly Coelho NP, S [address] [place] [address], [address], [facility] 9 16:13:47 Tinea corporis 09868261 Active 2023 Cristhian Perez DO [address] [place] [address], [address], [facility] 4 12:10:21 Insomnia 397611926 Active 2023 Cristhian Perez DO [address] [place] [address], [address], [facility] 4 12:17:44 Secondary periphera l neuropath y 237998 Active 2023 Cristhian Perez, DO [address] [place] [address], [address], [facility] 4 22:16:11 Acute exacerbat ion of chronic obstructi ve pulmonary disease 902523673 Active 2023 HIMA HUERTA [address] [place] [address], [address], [facility] 4 15:05:32 Generaliz ed rash 827461731 Active 2023 HIMA HUERTA [address] [place] [address], [address], [facility] 4 10:59:16 Depressiv e disorder 28178091 Active 2023 HIMA HUERTA [address] [place] [address], [address], [facility] 4 10:26:22 Eczema 85311367 Active 2023 Cristhian Perez, DO [address] [place] [address], [address], [facility] 4 11:50:30 Pain of bilateral hands 12689772834 776433 Active 2023 Cristhian Perez DO [address] [place] [address], [address], [facility] 4 11:52:35 Pruritic rash 69817801 Active 2023 Cristhian Perez DO [address] [place] [address], [address], [facility] 4 21:26:20 COVID-19 160676976 Active 2024 Cristhian Perez DO [address] [place] [address], [address], [facility] 5 11:37:01 Nummular eczema 48605833 Active 2024 Cristhian Perez, [address], [address], [facility] 5 14:51:23 Dislocati on of shoulder joint 257146437 Active 2024 Cristhian Perez, [address], [address], [facility] 5 14:52:22 Dislocati on of shoulder joint 280758184 Active 2024 Cristhian Perez, [address], [address], [facility] 5 14:52:26 Bilateral pain of joint of hands 44448709391 516076 Active 2024 Cristhian Perez, [address], [address], [facility] 5 14:53:41 Eczema of lower leg 850619626 Active 2024 Cristhian Perez, [address], [address], [facility] 5 16:55:51 Problem Notes None recorded. Medical Equipment None Reported. Allergies Allergen ID Allergen Name Allergen Category Reaction Reaction Severity Criticality Documentation Date Start Date Code Code System Note Provider Name and Address Organization Details Recorded Time 2905 peanut allergeni c extract food,medi cation Not available Not available Not available 05/11/2018 10976 8 [facility] 9 15:14:37 8332 Lyrica medicatio n rash Not available Not available 11/15/20232023 84959 1 RxNorm Landry rainey [facility] Internal [facility] 4 10:28:00 8490 raspberry extract food,medi cation Not available Not available Not available 12/29/2023 00095 69 RxNorm QUINTIN MENDEZ, [address], [address], [facility] 4 10:47:33 Medications Name Sig Start Date Stop Date Status Note LastModified by Organization Details LastModified Time Prescriptio n - New 01/03 completed Not Available Not Available Not Available Prescriptio n - Prior Authorizati on Request 01/03 completed Not Available Not Available Not Available cyclobenzap rine 10 mg tablet 04/11 completed Not Available Not Available Not Available amoxicillin 500 mg capsule 09/16 completed Not Available Not Available Not Available clonidine HCl 0.1 mg tablet 04/11 completed Not Available Not Available Not Available acetaminoph en 325 mg tablet TAKE 2 TABLETS BY MOUTH EVERY 6 HOURS NEEDED FOR PAIN active Not Available Not Available No t Available prednisone 10 mg tablet PLEASE SEE ATTACHED FOR DETAILED DIRECTION S active Not Available Not Available No t Available gabapentin 600 mg tablet TAKE 1 TABLET IN THE MORNING, TAKE 1 TABLET MID-DAY TAKE 2 TABLETS BEFORE BED active Not Available Not Available No t Available doxycycline hyclate 100 mg capsule TAKE 1 CAP ORALLY 2X DAY FOR 10DAYS WITH AT LEAST 8OZ OF WATER DON'T LIE DOWN FOR 30 MIN AFTER 03/22 completed Not Available Not Available Not Available albuterol sulfate 2.5 mg/3 mL (0.083 %) solution for nebulizatio n INHALE 1 VIAL VIA NEBULIZER 3 TIMES A DAY NEEDED active Not Available Not Available No t Available trazodone 50 mg tablet TK 1 T PO HS 06/12 completed Not Available Not Available Not Available azithromyci n 250 mg tablet TAKE 2 TABLETS BY MOUTH TODAY, THEN TAKE 1 TABLET DAILY FOR 4 DAYS DIRECTED active Not Available Not Available No t Available fluconazole 150 mg tablet Take 1 tablet every day by oral route for 5 days. active Not Available Not Available No t Available levetiracet am 500 mg tablet 06/12 completed Not Available Not Available Not Available prazosin 1 mg capsule TAKE 1 CAPSULE BY MOUTH EVERY NIGHT AT BEDTIME DO NOT TAKE IF SYSTOLIC BP IS LESS THAN 100 active Not Available Not Available No t Available naltrexone 50 mg tablet TAKE 1 TABLET BY MOUTH EVERYDAY AT BEDTIME active Not Available Not Available No t Available prednisone 20 mg tablet TAKE 2 TABLETS (40 MG TOTAL) BY MOUTH ONE TIME EACH DAY FOR 5 DAYS. active Not Available Not Available No t Available dexamethaso ne 6 mg tablet 09/16 completed Not Available Not Available Not Available sertraline 100 mg tablet TAKE 2 TABLET BY MOUTH ONCE A DAY DOSE IS 150 MG. active Not Available Not Available No t Available thiamine HCl (vitamin B1) 100 mg tablet Take 1 tablet every day by oral route. 09/28 completed Not Available Not Available Not Available hydroxyzine HCl 50 mg tablet 04/11 completed Not Available Not Available Not Available melatonin 3 mg tablet 09/16 completed Not Available Not Available Not Available doxepin 10 mg capsule 09/16 completed Not Available Not Available Not Available aspirin 81 mg tablet,andya yed release Take 1 tablet every day by oral route for 30 days. 04/11 completed Not Available Not Available Not Available doxycycline monohydrate 100 mg tablet PLEASE SEE ATTACHED FOR DETAILED DIRECTION S 03/22 completed Not Available Not Available Not Available acetaminoph en 500 mg tablet TAKE 2 TABLETS BY MOUTH EVERY 8 HOURS NEEDED FOR MILD PAIN active Not Available Not Available No t Available triamcinolo ne acetonide 0.1 % topical cream APPLY THIN COAT TO AFFECTED AREA TWICE A DAY active Not Available Not Available No t Available ketorolac 0.5 % eye drops INSTILL 1 DROP IN OPERATIVE EYE 3 TIMES A DAY. START 2 DAYS PRIOR TO SURGERY. CONTINUE DIRECTED. active Not Available Not Available No t Available chlordiazep oxide 25 mg capsule 09/16 completed Not Available Not Available Not Available gabapentin 800 mg tablet TAKE 1 TABLET BY MOUTH EVERY DAY 11/14 completed Not Available Not Available Not Available trazodone 100 mg tablet Take 1 tablet every day by oral route as needed. 04/28 completed Not Available Not Available Not Available hydrocortis one 1 % topical cream 06/12 completed Not Available Not Available Not Available oseltamivir 75 mg capsule 06/12 completed Not Available Not Available Not Available triamcinolo ne acetonide 0.1 % topical ointment APPLY A THIN LAYER TO THE AFFECTED AREA(S) BY TOPICAL ROUTE 2 TIMES PER DAY 06/12 completed Not Available Not Available Not Available buspirone 10 mg tablet 09/16 completed Not Available Not Available Not Available clotrimazol e-betametha sone 1 %-0.05 % topical cream PLEASE SEE ATTACHED FOR DETAILED DIRECTION S active Not Available Not Available No t Available halobetasol propionate 0.05 % topical ointment APPLY A THIN LAYER TO THE AFFECTED AREA(S) BY TOPICAL ROUTE ONCE DAILY DO NOT EXCEED 50 GRAMS PER WEEK OR 2 WEEKS DURATION 02/07 completed Not Available Not Available Not Available nicotine 21 mg/24 hr daily transdermal patch APPLY 1 PATCH TO SKIN ONCE DAILY REMOVE AT BEDTIME 09/16 completed Not Available Not Available Not Available Combivent 18 mcg-103 mcg/actuati on aerosol inhaler Inhale 2 puffs twice a day by inhalatio n route. 11/18 completed Not Available Not Available Not Available Polytrim 10,000 unit-1 mg/mL eye drops INSTILL 1 DROP INTO AFFECTED EYE(S) BY OPHTHALMI C ROUTE EVERY 4 HOURS 01/03 completed Not Available Not Available Not Available docusate sodium 100 mg capsule TAKE 1 CAPSULE BY MOUTH TWICE DAILY 09/16 completed Not Available Not Available Not Available gabapentin 300 mg capsule TAKE 1 CAPSULE BY MOUTH THREE TIMES A DAY 09/16 completed Not Available Not Available Not Available sertraline 25 mg tablet Take 1 tablet every day by oral route for 30 days. 09/16 completed Not Available Not Available Not Available buspirone 7.5 mg tablet TAKE 1 TABLET BY MOUTH THREE TIMES A DAY active Not Available Not Available No t Available omeprazole 20 mg capsule,del ayed release 04/11 completed Not Available Not Available Not Available folic acid 1 mg tablet TAKE 1 TABLET BY MOUTH EVERY DAY IN THE MORNING 09/16 completed Not Available Not Available Not Available hydroxyzine HCl 25 mg tablet 09/16 completed Not Available Not Available Not Available mupirocin 2 % topical ointment APPLY A SMALL AMOUNT TO THE AFFECTED AREA BY TOPICAL ROUTE 3 TIMES PER DAY 04/28 completed Not Available Not Available Not Available mirtazapine 15 mg tablet TAKE 1 TABLET BY MOUTH EVERYDAY AT BEDTIME active Not Available Not Available No t Available gabapentin 100 mg capsule 09/16 completed Not Available Not Available Not Available epinephrine 0.3 mg/0.3 mL injection, auto-inject or INJECT 1 PEN INJECTOR INTRAMUSC ULARLY NEEDED FOR SEVERE ALLERGIC REACTION active Not Available Not Available No t Available cefuroxime axetil 500 mg tablet 04/11 completed Not Available Not Available Not Available albuterol sulfate HFA 90 mcg/actuati on aerosol inhaler INHALE 2 PUFFS BY MOUTH EVERY 4 HOURS IF NEEDED active Not Available Not Available No t Available Vitamin D2 1,250 mcg (50,000 unit) capsule Take 1 capsule every week by oral route for 28 days. 04/28 completed Not Available Not Available Not Available fluticasone propionate 50 mcg/actuati on nasal spray,suspe nsion 06/12 completed Not Available Not Available Not Available sertraline 50 mg tablet TAKE 1 TABLET BY MOUTH EVERY NIGHT AT BEDTIME active Not Available Not Available No t Available doxycycline hyclate 100 mg tablet Take 1 tablet twice a day by oral route for 10 days. 04/28 completed Not Available Not Available Not Available loratadine 10 mg tablet 06/12 completed Not Available Not Available Not Available oxycodone 5 mg tablet TAKE 1 TABLET BY MOUTH EVERY 6 HOURS NEEDED FOR MODERATE PAIN 12/28 completed Not Available Not Available Not Available hydroxyzine pamoate 25 mg capsule TAKE 1-2 CAPSULE BY MOUTH THREE TIMES A DAY NEEDED FOR ANXIETY active Not Available Not Available No t Available Daily Multi-Vitam in tablet Take 1 tablet every day by oral route for 30 days. 04/11 completed Not Available Not Available Not Available Asprin Ec Low Dose 81 mg tablet,nadya yed release Take 1 tablet every day by oral route. 06/12 completed Not Available Not Available Not Available nicotine (polacrilex ) 4 mg buccal lozenge APPLY 1 LOZENGE TO INSIDE OF MOUTH EVERY 2 HOURS NEEDED 04/11 completed Not Available Not Available Not Available Multivitami n 50 Plus tablet Take 1 tablet every day by oral route for 30 days. 2023 active Not Available Not Available Not Avai lable mirtazapine 7.5 mg tablet 09/16 completed Not Available Not Available Not Available acamprosate 333 mg tablet,nadya yed release TAKE 2 TABLETS BY MOUTH 3 TIMES DAILY active Not Available Not Available No t Available duloxetine 30 mg capsule,del ayed release TAKE 1 CAPSULE BY MOUTH ONCE DAILY 04/11 completed Not Available Not Available Not Available duloxetine 60 mg capsule,del ayed release TK 1 C PO D 03/06 completed Not Available Not Available Not Available Nyamyc 100,000 unit/gram topical powder 09/16 completed Not Available Not Available Not Available pregabalin 75 mg capsule Take 1 capsule twice a day by oral route for 30 days. 11/14 completed Not Available Not Available Not Available melatonin take 10 mg qd for sleep 04/11 completed Not Available Not Available Not Available lorazepam prn 04/28 completed Not Available Not Available Not Available budesonide- formoterol HFA 160 mcg-4.5 mcg/actuati on aerosol inhaler INHALE 2 PUFFS INTO THE LUNGS TWICE A DAY FOR 30 DAYS active Not Available Not Available No t Available FeroSul 325 mg (65 mg iron) tablet 09/16 completed Not Available Not Available Not Available diclofenac 1 % topical gel 09/16 completed Not Available Not Available Not Available melatonin 5 mg tablet TAKE 1 TABLET BY MOUTH EVERY NIGHT AT BEDTIME AND MAY REPEAT X1 IF NEEDED active Not Available Not Available No t Available DOK 100 mg tablet Take 1 tablet twice a day by oral route for 30 days. 09/16 completed Not Available Not Available Not Available cholecalcif cortez (vitamin D3) 50 mcg (2,000 unit) tablet TAKE 1 TABLET BY MOUTH EVERY DAY 04/11 completed Not Available Not Available Not Available Cerovite Senior 0.4 mg-300 mcg-250 mcg tablet TAKE 1 TABLET BY MOUTH EVERY DAY FOR 30 DAYS active Not Available Not Available No t Available Vitamin D3 50 mcg (2,000 unit) capsule TK 1 C PO QD 06/12 completed Not Available Not Available Not Available One Daily Multivitami ns with Minerals 4.5 mg iron tablet active Not Available Not Available Not Available Banophen 50 mg capsule 09/16 completed Not Available Not Available Not Available Combivent Respimat 20 mcg-100 mcg/actuati on solution for inhalation INHALE 1 PUFF BY MOUTH FOUR TIMES DAILY NEEDED active Not Available Not Available No t Available Tudorza Pressair 400 mcg/actuati on breath activated TAKE 1 PUFF BY MOUTH EVERY 12 HOURS DIRECTED 2023 active Not Available Not Available Not Avai lable Eliquis 5 mg tablet TAKE 1 TABLET BY MOUTH TWICE DAILY 2024 active Not Available Not Available Not Avai lable Eliquis BID 04/28 completed Not Available Not Available Not Available Spiriva Respimat 2.5 mcg/actuati on solution for inhalation 09/16 completed Not Available Not Available Not Available Spiriva Respimat 1.25 mcg/actuati on solution for inhalation 09/16 completed Not Available Not Available Not Available naloxone 4 mg/actuatio n nasal spray ADMINISTE R 1 SPRAY INTO ONE NOSTRIL NEEDED CALL 911. REPEAT IN 2-3 MIN IF NO/MINIMA L RESPONSE active Not Available Not Available No t Available nicotine (polacrilex ) 2 mg buccal mini lozenge 09/16 completed Not Available Not Available Not Available multivitami n with minerals-fe rrous fumarate 15 mg iron tablet TAKE 1 TABLET BY MOUTH EVERY DAY active Not Available Not Available No t Available Trelegy Ellipta 200 mcg-62.5 mcg-25 mcg powder for inhalation INHALE 1 PUFF INTO THE LUNGS EVERY DAY FOR 30 DAYS active Not Available Not Available No t Available Daily-Chapincito (with folic acid) 400 mcg tablet TAKE 1 TABLET BY MOUTH EVERY DAY active Not Available Not Available No t Available Vitals Date Recorded Body height Body mass index (BMI) Body weight Heart rate Oxygen saturation Oxygen saturation in Arterial blood by Pulse oximetry Systolic And Diastolic Provider Name and Address Organization Details Last Updated DateTime 5 171.45 cm 23.6 kg/m2 18580.6 3 g 71 /min 95 % 95 % 106/68 mm[Hg] Cristhian Perez, DO [address] [place], [address] [place] [address] Internal Medicine 5 11:20:11 Date Recorded Body height Body mass index (BMI) Body weight Heart rate Oxygen saturation Oxygen saturation in Arterial blood by Pulse oximetry Systolic And Diastolic Provider Name and Address Organization Details Last Updated DateTime 5 171.45 cm 24.4 kg/m2 91593.6 7 g 81 /min 91 % 91 % 130/80 mm[Hg] Daphne Ryan [facility] Internal Medicine 5 14:36:10 Date Recorded Body height Heart rate Oxygen saturation Oxygen saturation in Arterial blood by Pulse oximetry Systolic And Diastolic Provider Name and Address Organization Details Last Updated DateTime 5 171.45 cm 77 /min 93 % 93 % 129/60 mm[Hg] Trina Alcantar [facility] Internal Medicine 5 11:39:05 Date Recorded Body height Body mass index (BMI) Body weight Oxygen saturation Oxygen saturation in Arterial blood by Pulse oximetry Heart rate Systolic And Diastolic Provider Name and Address Organization Details Last Updated DateTime 5 171.45 cm 23.8 kg/m2 12800.2 2 g 97 % 97 % 78 /min 112/64 mm[Hg] Regine Key [facility] Internal Medicine 5 16:15:29 Date Recorded Body height Body mass index (BMI) Body weight Heart rate Oxygen saturation Oxygen saturation in Arterial blood by Pulse oximetry Systolic And Diastolic Provider Name and Address Organization Details Last Updated DateTime 4 171.45 cm 23.6 kg/m2 63528.6 3 g 73 /min 92 % 92 % 110/80 mm[Hg] Trina Alcantar [facility] 4 11:13:34 Social History Question Answer Notes LastModified by Organizat ion Details LastModified Time Tobacco Smoking Status [facility] 15:18:01 What Was The Date Of Your Most Recent Tobacco Screening? 06/07/2024 [email or web address] Information not available 06/07/2024 Sex: Unknown Functional Status Question Answer Note LastModified by Organization D etails LastModified Time Do you or have you ever used any other forms of tobacco or nicotine? No Information not available 03/22/2024 Mental Status None recorded. Family History Nothing Reported. Medical History No medical history recorded. Immunizations Vaccine Type Date Status Note Provider Nam e and Address Organization Details Recorded Time COVID-19 vaccine, vector-nr, rS-Ad26, PF, 0.5 mL 03/27/19 22 completed Not Available [facility] 08/15/2022 22:39:22 Tdap 08/04/19 22 completed Not Available [facility] 08/15/2022 22:39:22 pneumococcal polysaccharide PPV23 07/18/19 21 completed Not Available [facility] 08/15/2022 22:39:22 influenza, unspecified formulation 04/23/19 17 completed Not Available [facility] 08/15/2022 22:39:22 zoster recombinant 10/03/19 25 completed Cristhian Perez DO [address] [place], [address], [facility] Internal Medicine 10/10/2024 16:45:43 Past Encounters Encounter ID Performer Location Encounter Start Date Encounter Closed Date Diagnosis/Indication Diagnosis SNOMED-CT Code Diagnosis ICD10 Code Diagnosis IMO Codes Diagnosis Note Cristhian Perez DO [facility] Internal Medicine [address] [facility],[place] [address] 07/11/2018 15:02:42 07/11/2018 16:21:04 Alcohol dependence 35097293 F10.20 written scripts vivitrol 380 mg IM Q 4 weeks ( pharmacy not located in system ) Chronic ob structive pulmonary disease 91381679 J44.9 Harmful pa ttern of use of alcohol 28051686 F10.10 long discussion to avoid isolation Use senior center, library, social center to seek psychiatri st-pt prefers to do on own look for SMART meetings stay in contact w/positive people in life get outside and walk History of deep vein thrombosis 309183610 Z86.718 on Eliquis Neuropathy 936275817 G62 .9 gabapentin written & faxed 300 mg BID [id number] Cristhian Perez DO [facility] Internal Medicine [address] [facility],[place] [address] 09/28/2018 13:25:38 09/28/2018 14:06:07 Alcohol dependence 51444603 F10.20 currently in rehab Secondary peripheral neuropathy 653856 G63 2/2 etoh History of deep vein thrombosis 283135610 Z86.718 Tobacco de pendence syndrome 40137481 F17.200 [id number] Cristhian Perez [facility] Internal Medicine [address] [facility],[place] [address] 10/26/2018 14:05:49 10/26/2018 16:00:43 History of deep vein thrombosis 716385310 Z86.718 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 has IVC filter Tobacco de pendence syndrome 59582900 F17.200 no plans to quit Neuropathy 713459403 G62 .9 gabapentin not helpful has low vitamin d will supplement then f.u Harmful pa ttern of use of alcohol 91066819 F10.10 currently sober x 9 days Acute conjunctivitis 537 62837 H10.31 current abx failure consider opth if second round not helpful Vitamin D deficiency 347 39162 E55.9 Onychomyco sis of toenails 527344273 B35.1 Screening procedure 2012 5006 Z13.9 Steatotic liver disease 222986252 K76.0 [id number] Cristhian Perez [facility] Internal Medicine [address] [facility],[place] [address] 01/03/2019 10:26:01 01/03/2019 11:03:12 Secondary peripheral neuropathy 181943 G63 2/2 etoh Physical deconditioning 3292242862 9102 R68.89 Depressive disorder 3548 9007 F32.9 [id number] Cristhian Perez [facility] Internal Medicine [address] [facility],[place] [address] 02/07/2019 13:17:51 02/07/2019 13:59:18 Acute folliculitis 398805659 L73.9 Secondary peripheral neuropathy 093059 G63 2/2 etoh no difference in neuropathy , will try to increase dose from 600 to 800 mg denies any drowsiness with the gabapentin still not drinking sx reportedly are worsening Depressive disorder 3548 9007 F32.9 feels the duloxetine has helped with his depression . declines any increase in the dose of his med he does sometimes feel depressed when he thinks about his son who doesn't visit Vitamin D deficiency 347 45940 E55.9 never received the letter regarding this lab result will send in vitamin d now also take vitamin d3 2000 units after completing this will recheck level in 12 weeks Tobacco user 954188449 Z 72.0 [id number] Cristhian Perez [facility] Internal Medicine [address] [facility], [place] [address] 04/28/2019 15:03:46 04/28/2019 16:25:32 Chronic obstructive pulmonary disease 61336230 J44.9 acute exacerbati on of copd Secondary peripheral neuropathy 390606 G63 2/2 etoh no difference in neuropathy , will try to increase dose from 600 to 800 mg denies any drowsiness with the gabapentin still not drinking sx reportedly are worsening Depressive disorder 3548 9007 F32.9 feels the duloxetine has helped with his depression . declines any increase in the dose of his med he does sometimes feel depressed when he thinks about his son who doesn't visit Vitamin D deficiency 347 52797 E55.9 completed the macrodose of vitamin d needs to start the vitamin d r Tobacco user 522181925 Z 72.0 Harmful pa ttern of use of alcohol 98592395 F10.10 currently sober again Gout 48407000 M10.9 History of deep vein thrombosis 587698991 Z86.718 has been takin elisharifais for 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 has IVC filter Neuropathy 020308025 G62 .9 as above Alcohol dependence 90395 003 F10.20 sober Atopic dermatitis 038884 01 L20.9 Acute exac erbation of chronic obstructive pulmonary disease 251838362 J44.1 mitesh lamb as above for rash + [place] [id number] Cristhian Perez [facility] Internal Medicine [address] [facility],[place] [address] [place] [address] 10/25/2019 15:02:33 10/25/2019 15:22:49 Harmful pattern of use of alcohol 50095669 F10.10 still drinking about 1 pint of hard liquor a day no plans on stopping or seeking help with this addiction advised to work on cutting back and drink water instead patient does not seem interested on doing this despite risks to his health will have patient call if he has another convulsio n Chronic ob structive pulmonary disease 20371619 J44.9 breathing is the same per patient not any worse, cough is the same as well Tobacco de pendence syndrome 93668467 F17.200 still smoking not ready to quit, no plans on quitting SARS-CoV-2 045733396 U07 .1 patient currently has a positive diagnosis of COVID told him to monitor symptoms and if he gets very sick again to go back to the hospital [id number] Cristhian Perez [facility] Internal Medicine [address] [facility],[place] [address] 01/03/2020 15:04:00 01/03/2020 16:04:29 Harmful pattern of use of alcohol 38556040 F10.10 still drinking about 2 pint of hard liquor a day did discuss with patient about setting up with a rehab center and working with his advisor patient was open to this idea and gave permission for me to speak with his advisor Alcohol withdrawal 62784 0000 F10.939 patient states every time he stops drinking he gets violently ill so him refuses to stop drinking at this point [id number] Cristhian Perez DO [facility] Internal Medicine [address] [facility],[place] [address] 03/06/2020 09:10:45 03/06/2020 15:51:21 Harmful pattern of use of alcohol 89933026 F10.10 still drinking about 2 pint of hard liquor a day did discuss with patient about setting up with a rehab center and working with his advisor patient unwilling to stop drinking because of the withdrawal afterwards did discuss in detail with pt that the drinking is contributi ng to his neurologic al issues Chronic ob structive pulmonary disease 66760570 J44.9 breathing is the same per patient not any worse, cough is the same as well does need refill of his inhalers Fall W19.XXXS patient reports he fell due to balance issues, weakness in nabila legs most likely related to his drinking will set him up with Dr. Aldana again for eval Injury of head 66214804 S09.90XS no LOC and CT at hospital showed no acute changes MRI done in april, will not need another MRI History of deep vein thrombosis 158955525 Z86.718 was on eliquis but stopped to do hx of brain bleed no ride to the hospital so he is unwilling to do a fu US to assess chronic DVT due to brain bleed because of blood thinner, he should not be on eliquis at this time but should have US to assess [id number] Cristhian Perez DO [facility] Internal Medicine [address] [facility],[place] [address] 04/19/2020 08:38:20 04/22/2020 15:44:19 [id number] Cristhian Perez DO [facility] Internal Medicine [address] [place] [address] 06/12/2020 14:07:08 06/12/2020 15:18:50 Harmful pattern of use of alcohol 47399748 F10.10 still drinking about 2 pint of hard liquor a day did discuss with patient about setting up with a rehab center and working with his advisor patient unwilling to stop drinking because of the withdrawal afterwards did discuss in detail with pt that the drinking is contributi ng to his neurologic al issues Chronic ob structive pulmonary disease 27988366 J44.9 breathing is the same per patient not any worse, cough is the same as well Neuropathy 446010666 G62 .9 will try on the 800 mg qd as patient said this was effective will slowly tirtate up the medication dosage [id number] Cristhian Perez [facility] Internal Medicine [address] [place] [address] 04/11/2021 14:50:50 04/11/2021 16:21:09 Chronic obstructive pulmonary disease 78129998 J41.0 breathing is the same per patient not any worse, cough is the same as well Alcohol withdrawal 34543 0000 F10.931 has not had a drink in 1 mo but does plan to drink again though per patient in moderation recommend ed to not drink at all Secondary peripheral neuropathy 602906 G63 restarted gabapentin Harmful pa ttern of use of alcohol 14263961 F10.121 monitoring progress with drinking Pain of le ft shoulder joint 2839816289 1113427 M25.512 improving with at home PT [id number] Cristhian Perez [facility] Internal Medicine [address] [place] [address] 09/17/2023 10:23:16 09/17/2023 11:04:03 Depression screening 342206169 Z13.31 SCREENING NEGATIVE Harmful pa ttern of use of alcohol 75890855 F10.121 on naloxone campral buspar zoloft Gout 22343192 M10.9 quiet now Neuropathy 351074773 G62 .9 had been on gabapentin Chronic ob structive pulmonary disease 39287125 J41.0 he is stable on the inhalers [id number] Cristhian Perez [facility] Internal Medicine [address] [place] [address] 10/18/2023 11:40:03 10/18/2023 12:58:27 Chronic obstructive pulmonary disease 98641240 J41.0 he is stable on the inhalers Harmful pa ttern of use of alcohol 04285832 F10.121 on naloxone campral buspar zoloft Tinea corporis 83560150 B35.4 between legs History of deep vein thrombosis 365993060 Z86.718 recurrent Insomnia 733991149 G47.0 0 [id number] Cristhian Perez [facility] Internal Medicine [address] [facility],[place] [address] 11/30/2023 10:27:17 11/30/2023 15:30:22 Acute exacerbation of chronic obstructive pulmonary disease 133663206 J44.1 start on pred and z radha Chronic ob structive pulmonary disease 44977251 J41.0 needs refiil [id number] Cristhian Perez [facility] Internal Medicine [address] [facility],[place] [address] 12/29/2023 10:02:26 12/29/2023 15:40:20 Pre-surgery evaluation 565397634 Z01.818 The patient was seen in the office today for pre-op evaluation . All medical conditions on patient's problem list were addressed and are currently stable, no interventi on needed at this time. Based on history and physical performed, the patient is cleared for surgery. Chronic ob structive pulmonary disease 12626660 J41.0 mild exacerbati oncan start prednisone taper after surgery [id number] Cristhian Perez [facility] Internal Medicine [address] [facility],[place] [address] 01/19/2024 10:45:59 01/19/2024 11:55:43 Acute exacerbation of chronic obstructive pulmonary disease 356216149 J44.1 seems stable now now acute changess Chronic ob structive pulmonary disease 68405086 J41.0 he is stable on the inhalers Neuropathy 612772188 G62 .9 had been on gabapentin Eczema 17416684 L30.9 Pain of bi lateral hands 9007709721 9353385 M79.642 M79.641 [id number] Cristhian Perez [facility] Internal Medicine [address] [facility] [address] [address] 01/17/2024 09:44:31 01/17/2024 11:46:28 Generalized rash 927651353 R21 start on combinatio n treat of pred and anti-funga lhas a f/u on 01/18 with MB in officereco mmended him evaluate at that timeskin culture was negative, no staph infection [id number] Cristhian Perez [facility] Internal Medicine [address] [facility] [address] [address] 03/22/2024 11:00:25 03/22/2024 11:45:12 Chronic obstructive pulmonary disease 16583957 J41.0 he is stable on the inhalers COVID-19 526762853 U07.1 on medrol and azith getting better Acute exac erbation of chronic obstructive pulmonary disease 722495809 J44.1 seems stable now now acute changesdoi ng bettergive n spacer [id number] [facility]Elizabeth [facility] [address] [facility] [address],[place] [address] 05/19/2024 14:12:21 05/19/2024 15:20:28 Chronic obstructive pulmonary disease 76803575 J41.0 he is stable on the inhalers Nummular eczema 84593562 L30.0 Dislocatio n of shoulder joint 715373171 S43.006D Bilateral pain of joint of hands 2492262633 7661468 M25.541 M25.542 Screening for malignant neoplasm of colon 620521262 Z12.11 Chronic bronchitis 76958 004 J42 Neuropathy 992350937 G62 .9 had been on gabapentin [id number] Cristhian Perez [facility] Internal Medicine [address] [facility] [address] [address] 06/07/2024 11:29:13 06/07/2024 12:15:01 Chronic obstructive pulmonary disease 37493063 J41.0 he is stable on the inhalers Dislocatio n of shoulder joint 773272385 S43.006D Nummular eczema 48311891 L30.0 Depression screening 171 819687 Z13.31 SCREENING NEGATIVE Bilateral pain of joint of hands 2762260793 0473515 M25.541 M25.542 Acute exac erbation of chronic obstructive pulmonary disease 755232457 J44.1 seems stable now now acute changesdoi ng bettergive n spacer [id number] Cristhian Perez DO [facility] Internal Medicine [address] [facility] [address],[place] [address] 10/10/2024 15:56:56 10/11/2024 10:30:30 Depression screening 302815980 Z13.31 SCREENING NEGATIVE Harmful pa ttern of use of alcohol 12188865 F10.121 on naloxone campral buspar zoloft Chronic ob structive pulmonary disease 44067689 J41.0 he is stable on the inhalers Eczema of lower leg 7623 56466 L30.9 8596243419 will use cream Secondary peripheral neuropathy 533997 G62.89 will cont gabapentin but consider change to duloxetine Health Concerns Section Related Observation LastModified by Organization Detai ls LastModified Time None Recorded Concern Status LastModified by Organization Details LastModified Time None Recorded Advance Directives Directive None Recorded Payers Insurance Date Sequence Insurance Name Policy Number Policy Ruiz Covered Member ID Ruiz Member ID Guarantor Name 05/19/2024 1 [facility] - DOS PRIOR TO 2022 - DUAL ELIGIBLE (MEDICARE REPLACEMENT/ADV ANTAGE - HMO) Edgardo Zavala [id number] Edgardo Zavala 05/19/2024 1 [place]: [employer] Edgardo Zavala [id number] Edgardo Zavala 11/07/2024 1 [facility] - DOS ON OR AFTER 2022 - MEDICARE [place]VANTAGE [place]MEDICARE REPLACEMENT/ADV ANTAGE - PPO) Edgardo Zavala [id number] Edgardo Zavala 05/19/2024 1 [place] PRIOR TO 2022 - [facility] (MEDICAID) Edgardo Zavala [id number] Edgardo Zavala Notes Date Note Type Note Provider Name a nd Address Organization Details Recorded Time 4 text/html ROS as noted in the HPI here for rechkrelates that had a rsh for mult weeks creams not helpfulstill smokeshaving a prob with the rash not going away Cristhian MadhuriElizabeth Perez DO [address] [place], [address], [facility] 01/19/2024 11:54:47 5 text/html ROS as noted in the HPI here for rechk of his lungs since having covid was seen twice in ER and actually signed out AMA on second visit was told to stay due to lower O2 sat but went hometoday O2 sat 95% Cristhian Perez DO [address] [place], [address], [facility] 03/22/2024 11:38:17 5 text/html ROS as noted in the HPI hwere for rechk right shoulder is pretty bad as of late since the dislocation episode back in januaryrelates that he has also had a problem with his short term memoryhas noticed for several monthsals o the neuropathy has been worse Cristhian Perez DO [address] [place], [address], [facility] 05/19/2024 15:07:19 5 text/html Care Management - Chronic Obstructive Pulmonary Disease (COPD)Reported by PatientHPIFor severity, patient reportssymptoms are improvinganddoes not interfere with daily activities. For associated symptoms, patient reportsno chest tightness,no shortness of breath,no wheezing,not constantly clearing the throat,no blueness of the lips,no fatigue, andno respiratory infections. Musculoskeletal PainReported by PatientHPIFor location, patient reportspain is not radiating. For severity, patient reportsimproving. For associated symptoms, patient reportsno fever,no weak limbs,no tingling,no numbness of the legs/feet, andno incontinence. For adl (activities of daily living), patient reportsimprove with medication.ROS as noted in the HPI here for rechk and is doing ok overall but his right shoulder is still badhe is struggling with this and is quite uncomfortable reviewed MRI in detail and is going to want to get riding on his motorcycle again Cristhian Perez DO [address] [place], [address], [facility] 06/07/2024 12:12:26 5 text/html Care Management - Chronic Obstructive Pulmonary Disease (COPD)Reported by PatientHPIFor severity, patient reportssymptoms are improvinganddoes not interfere with daily activities. For associated symptoms, patient reportsno chest tightness,no shortness of breath,no wheezing,not constantly clearing the throat,no blueness of the lips,no fatigue, andno respiratory infections. Musculoskeletal PainReported by PatientHPIFor location, patient reportspain is not radiating. For severity, patient reportsimproving. For associated symptoms, patient reportsno fever,no weak limbs,no tingling,no numbness of the legs/feet, andno incontinence. For adl (activities of daily living), patient reportsimprove with medication.ROS as noted in the HPI here for rechk long discussion re ravages of etoh usediscussed cannabis use getting his teeth fixed next couple months here for rechk and is doing ok overall but his right shoulder is still badhe is struggling with this and is quite uncomfortable reviewed MRI in detail and is going to want to get riding on his motorcycle again Cristhian Perez, DO [address] [facility], [place], [place], [id number], [facility] 10/10/2024 16:56:27
--- OUTSIDE RECORDS SUMMARY | 2024-11-26 15:03 | XMS_ITS | Data Portability ---
Author Organization [facility], Main Office Address [address], [address] [place] [address] Care Team Providers Care Mortgage Analyst Name Role Phone LAM BARAJAS - 2ND FLOOR OTHER DANIELA PEREZ Primary Care Provider Assessment No assessment recorded. Plan of Treatment Reminders Order Date Submit Date Provider Last Modified By Organization Details Last Modified Time Details Appointments None record ed. Lab None record ed. Referral None record ed. Procedures None record ed. Surgeries None record ed. Imaging None record ed. Medication Orders None record ed. Patient TargetsNo targets recorded. Patient InstructionsNo instructions recorded. Reason for Referral None Reported. Problems Name Problem SNOMED Code Status Onset Date Resolution Date Notes Provider Name and Address Organization Details Recorded Time Bilateral deep vein thrombosis of lower extremitie s 655808104 Active 2017 IVC FILTER IN 2017 and bilateral thrombolys is SHELBI STREETER [address] [facility], [address], [place], [address] [place] [address] 8 12:36:34 Alcohol withdrawal delirium 1792656 Active 2017 Viridiana rainey [facility] 8 10:43:30 Chronic obstructiv e pulmonary disease 76698007 Active 2017 Viridiana rainey [facility] 8 10:43:38 Aspiration pneumonia 734665625 Active 2017 Viridiana rainey [facility] 8 10:43:47 Urinary tract infectious disease 58859354 Active 2017 Viridiana rainey [facility] 8 10:44:01 Tobacco dependence syndrome 84682974 Active 2017 Viridiana rainey [facility] 8 10:44:11 Peripheral nerve disease 643293125 Active 2017 Viridiana Miller brigid, [facility] 8 10:44:19 Anemia 073430083 Active 2017 Viridiana rainey, [facility] 8 10:44:24 Thrombocyt openic disorder 226094869 Active [address], [place], [address], [facility] 8 12:35:04 Chronic hepatitis 05953961 Active [address], [place], [address], [facility] 8 12:35:27 Alcohol dependence 76613094 Active 2017 Giovani Juarez MD [address] [facility], [address], [place], [address], [facility] 8 12:06:43 Left upper quadrant pain 554494096 Active 2017 SHELBI Daly [address], [place], [address], [facility] 8 15:19:12 Cellulitis of buttock 26200933 Active 2022 ELIZABETH JACKSON NP [address] [facility], [address], [place], [address], [facility] 3 13:40:37 Harmful pattern of use of alcohol 39590594 Active 2022 ELIZABETH JACKSON NP [address], [address], [place], [address], [facility] 3 13:41:13 Open wound of buttock 094369021 Active 2022 ELIZABETH JACKSON NP [address], [address], [place], [address], [facility] 3 13:43:26 Problem Notes None recorded. Medical Equipment None Reported. Allergies Allergen ID Allergen Name Allergen Category Reaction Reaction Severity Criticality Documentation Date Start Date Code Code System Note Provider Name and Address Organization Details Recorded Time 77475 peanut allergeni c extract food,medi cation Not available Not available Not available 10/15/2022 77911 8 RxNorm peanu t butte r, facia l tere JACKSON NP [address] [facility], [address], [place], [address], [employer] [facility] 3 13:39:42 61450 raspberry extract food,medi cation Not available Not available Not available 10/15/2022 76787 69 RxNorm facia l tere JACKSON NP [address] [facility], [address], [place], [address], [employer] [facility] 3 13:40:02 Vitals Date Recorded Heart rate Respiratory rate Body temperature Systolic And Diastolic Provider Name and Address Organization Details Last Updated DateTime 10/15/2022 73 /min 18 /min 98.3 [degF] 91/55 mm[Hg] ELIZABETH JACKSON NP [address] [facility], [address], [place], [address], [employer] [facility] 3 13:33:48 Date Recorded Body temperature Oxygen saturation Oxygen saturation in Arterial blood by Pulse oximetry Heart rate Systolic And Diastolic Provider Name and Address Organization Details Last Updated DateTime 3 98.3 [degF] 94 % 94 % 73 /min 91/55 mm[Hg] Cecilia Tucker MD [address] [facility], [address], [place], [address], [employer] [facility] 3 06:30:21 Date Recorded Body weight Heart rate Respiratory rate Body temperature Oxygen saturation Oxygen saturation in Arterial blood by Pulse oximetry Systolic And Diastolic Provider Name and Address Organization Details Last Updated DateTime 3 06958.7 2 g 73 /min 18 /min 98.3 [degF] 94 % 94 % 91/55 mm[Hg] Violette Newell NP [address] [facility], [address], [place], [address], [employer] [facility] 3 11:10:43 Date Recorded Body weight Heart rate Respiratory rate Body temperature Oxygen saturation Oxygen saturation in Arterial blood by Pulse oximetry Systolic And Diastolic Provider Name and Address Organization Details Last Updated DateTime 3 49098.7 2 g 73 /min 18 /min 98.3 [degF] 94 % 94 % 91/55 mm[Hg] Violette Newell NP [address] [facility], [address], [place], [address], [facility] [employer] [facility] 3 12:59:44 Date Recorded Body weight Heart rate Respiratory rate Body temperature Oxygen saturation Oxygen saturation in Arterial blood by Pulse oximetry Systolic And Diastolic Provider Name and Address Organization Details Last Updated DateTime 3 54855.7 2 g 73 /min 18 /min 98.3 [degF] 94 % 94 % 91/55 mm[Hg] Violette Newell NP [address] [facility], [facility] [address], [place], [address], [facility] [employer] [facility] 3 10:56:55 Social History Question Answer Notes LastModified by Organizat ion Details LastModified Time Tobacco Smoking Status Current Every Day Smoker Viridiana rainey, [facility] 05/19/2017 10:55:27 Do You Have An Advance Directive? Yes [email or web address] Information not available 10/15/2022 How Many Years Have You Consumed Alcohol? 44 Information not available 05/19/2017 What Is Your Code Status? Full Code Information not available 10/15/2022 Which Illicit Or Recreational Drugs Have You Used? Marijuana [email or web address] Information not available 10/15/2022 How Many Days In The Past Year Have You Had A Heavy Drinking Consumption (4+ Female, 5+ Male)? 365 Drinks 1 Pint Of [place] And 2 Nips/day, Longest Period Of Sobriety 6 Mos Information not available 05/19/2017 Do You Have A Medical Power Of Associate Product Integrity Engineer? Yes Information not available 05/19/2017 What Was The Date Of Your Most Recent Tobacco Screening? 10/15/2022 [email or web address] Information not available 10/15/2022 How Much Tobacco Do You Smoke? 1 PPD Information not available 05/19/2017 How Many Years Have You Smoked Tobacco? 40 Information not available 05/19/2017 Sex: Unknown Functional Status Question Answer Note LastModified by Organizat ion Details LastModified Time Do you use any illicit or recreational drugs? Yes [email or web address] Information not available 10/15/2022 What is your level of alcohol consumption? Heavy Information not available 05/19/2017 Mental Status None recorded. Family History Nothing Reported Notes:N/C Medical History No medical history recorded. Immunizations Vaccine Type Date Status Note Provider Nam e and Address Organization Details Recorded Time COVID-19 vaccine, vector-nr, rS-Ad26, PF, 0.5 mL 2 completed [facility] 10/22/2022 16:48:27 Tdap 2 completed [facility] 10/22/2022 16:48:42 pneumococcal polysaccharide PPV23 1 completed [facility] 05/27/2023 13:19:59 influenza, unspecified formulation 3 completed [facility] 05/27/2023 13:21:04 influenza, unspecified formulation 4 completed [facility] 05/27/2023 13:21:19 SARS-COV-2 (COVID-19) vaccine, UNSPECIFIED 3 completed [facility] 05/27/2023 13:21:41 Past Encounters Encounter ID Performer Location Encounter Start Date Encounter Closed Date Diagnosis/Indication Diagnosis SNOMED-CT Code Diagnosis ICD10 Code Diagnosis IMO Codes Diagnosis Note [id number] [address] [place] [address] 05/19/2017 10:32:28 05/25/2017 14:07:44 Bilateral deep vein thrombosis of lower extremities 000156435 I82.493 See HPIs/p IVC filter Dec, s/p EKOS catheter thrombolys is 3/2Eliquis 10 mg BID until 05/22 then 5 mg BIDMonitor for increase in pain/edema PT/OT eval and treat Alcohol wi thdrawal delirium 1259394 F10.231 Hx of heavy alcohol use with DTs in hospitalRi speridone 0.25 mg TIDThiamin e 100 mg dailyFolic acid 1 mg dailyMonit or moodNEG consult prn Aspiration pneumonia 422 774140 J69.0 Augmentin to complete courseAdd probioticA spiration precaution sSLP eval and treat Urinary tr act infectious disease 76887288 N30.00 Complete antibiotic as aboveMonit or sxs Chronic ob structive pulmonary disease 38105983 J41.8 Duonebs prnSupplem ental O2 prnMonitor respirator y status Tobacco de pendence syndrome 65409350 F17.210 Nicotine patchEncou rage smoking cessation Peripheral nerve disease 646172996 G64 Secondary to ETOH abuseMonit or sxs Anemia 444051649 D64.89 Repeat and monitor CBC [id number] MD MARKUS Melchor [address] [place] [address] 05/24/2017 10:26:07 05/26/2017 12:52:00 Bilateral deep vein thrombosis of lower extremities 241060952 I82.493 see HPIEliquis 5 mg bidmonitor with restart of medication on dose decreasing from 10 mg bid Alcohol wi thdrawal delirium 0010492 F10.231 see HPIthiamin e 100 mg qdmonitor for sx Tinea cruris 030990865 B 35.6 nystatin powdermoni tor to resolution Peripheral nerve disease 520721840 G64 start neurontin 100 mg tidtitrate for effect Urinary tr act infectious disease 54262027 N10 complete abmonitor for sx Chronic ob structive pulmonary disease 68101610 J41.1 at baselineco ntin[place] [id number] Viridiana Miller, SHELBI JOYA [address] [place] [address] 06/01/2017 10:32:02 06/10/2017 14:19:14 Bilateral deep vein thrombosis of lower extremities 408612907 I82.493 see HPIEliquis 5 mg bidF/u with PCP Alcohol wi thdrawal delirium 3923329 F10.231 see HPIthiamin e 100 mg qdd/c risperidal Home services in place with social work and psych consults madePatien t motivated to remain sober Peripheral nerve disease 311179537 G64 Increase neurontin 200 mg tidf/u with PCP Urinary tr act infectious disease 28314594 N10 antibiotic course completeap pears resolved Chronic ob structive pulmonary disease 02464522 J41.1 at baselineco [place]tin[place] [id number] [address] 09/16/2017 12:30:46 09/28/2017 15:08:07 Chronic hepatitis 19085004 K70.10 PT/OT eval and treatfollo w LFTsencour age ETOH abstinence psych eval and treat for abstinence follow up with GI prn Thrombocyt openic disorder 319872469 D69.59 monitor labsPlts corrected currently from 70 to 203 Chronic ob structive pulmonary disease 88534291 J41.8 duoneb q 4 hrs prnmonitor respirator y status Peripheral nerve disease 219951129 G64 neurontin 300 mg q 8 hrswill change to 300 mg q 9 am and 2 pm and 600 mg q hsc/o foot pain increased at nightmonit or pain Bilateral deep vein thrombosis of lower extremities 592196186 I82.593 eliquis 2.5 mg bidIVC filter in placemonit or labs Alcohol wi thdrawal delirium 4698638 F10.231 folic acid 1 mg qdmultivit e qdthiamine qdmonitor for withdrawal ativan 0.5 mg q 4 hrs prn added Tobacco de pendence syndrome 55015777 F17.210 nicotine patch 21 mg/24 hr qdmonitor for withdrawal [id number] MD ASHLEY Melchor AT [address] [address] 09/18/2017 12:00:41 09/28/2017 15:44:02 Asthenia 35216502 R53.1 see HPIPT OT eval and treatmonit or lytes Chronic hepatitis 007857 07 K73.2 see HPIseconda ry to ETOHGI eval prn Alcohol dependence 06336 003 F10.288 extended discussion with patient concerning use of etoh and effect on health. when patient returned after SNF stay in 05/16 again began drinking 1 pint and 1 nip per daypatient states understand ing that continuing with prior drinking habits will result in Thrombocyt openic disorder 509500417 D69.59 repeat and monitor cbc Bilateral deep vein thrombosis of lower extremities 331074499 I82.493 see HPIEliquis 2.5 mg bidmonitor with restart of medication IVC filter in place Chronic ob structive pulmonary disease 28120106 J41.1 at baselinedu onebs in place [place] [id number] [address] AT [address] [address] 09/20/2017 16:11:59 09/28/2017 15:48:42 Chronic hepatitis 23815690 K70.10 PT/OT eval and treatfollo w LFTs weekly and once he is outpt with pcpencoura ge ETOH abstinence follow up with GI prnwill get ortho BPs bid x 2 days Thrombocyt openic disorder 039426367 D69.59 monitor labs, improved Chronic ob structive pulmonary disease 38342601 J41.8 duoneb q 4 hrs prnmonitor respirator y statusenco urage pt to stop smoking Peripheral nerve disease 058730901 G64 neurontin 300 mg q 9 am and 2 pm and 600 mg q hsmonitor pain Bilateral deep vein thrombosis of lower extremities 869902639 I82.593 eliquis 2.5 mg bidIVC filter in placemonit or labs Alcohol wi thdrawal delirium 8475368 F10.231 folic acid 1 mg qdmultivit e qdthiamine qdativan 0.5 mg q 4 hrs prn Tobacco de pendence syndrome 97007022 F17.210 nicotine patch 21 mg/24 hr qd [id number] SHE[address]BI Daly AT [address] [address] 09/21/2017 15:09:20 09/28/2017 16:05:00 Alcohol dependence 18560473 F10.20 ok to dc home tomorrowst rongly encouraged abstinence /AA Chronic hepatitis 810878 07 K70.10 encourage ETOH abstinence follow up with GI prn and pcp Bilateral deep vein thrombosis of lower extremities 615727806 I82.593 eliquis 2.5 mg bidIVC filter in place Chronic ob structive pulmonary disease 19894349 J41.8 duoneb q 4 hrs prnencoura ge pt to stop smoking Left upper quadrant pain 474093861 R10.12 pt will f/u with PCP as out pt for further testing if needed [id number] [address] AT [address] [address] 10/02/2017 16:10:48 10/20/2017 12:10:03 Alcohol dependence 84592313 F10.20 see hpiPT OT for conditioni ng and mobilityst rongly encouraged abstinence Chronic ob structive pulmonary disease 58187295 J41.8 duoneb q 4 hrs prnencoura ge pt to stop smoking Anemia 104594160 D64.9 monitor cbc Peripheral nerve disease 172110341 G64 neurontin 300 mg q 9 am and 2 pm and 600 mg q hsmonitor pain Bilateral deep vein thrombosis of lower extremities 548017457 I82.593 resume eliquis 2.5 mg bidIVC filter in placedue to alcoholism he would not be a candidate for coumadin [id number] MD ASHLEY Melchor AT [address] [address] 10/05/2017 15:13:51 10/20/2017 13:22:05 Asthenia 82610760 R53.1 see HPImultifa ctorial PT OT eval and treatmonit or lytes Alcohol dependence 46565 003 F10.288 Repeat extended discussion with patient concerning use of etoh and effect on health. patient states understand ing that continuing with prior drinking habits will result in Chronic hepatitis 181734 07 K73.2 see HPIseconda ry to ETOHGI eval prn Bilateral deep vein thrombosis of lower extremities 285910338 I82.493 see HPIEliquis 2.5 mg bidmonitor with restart of medication IVC filter in place Peripheral nerve disease 200052174 G64 increase gabapentin to 300 mg tidmonitor for effect [id number] [address] 10/07/2017 14:48:18 10/20/2017 14:00:14 Alcohol dependence 42138921 F10.288 encouraged to abstain from ETOHfollow up with PCP Chronic hepatitis 253738 07 K73.2 secondary to ETOHfollow up with PCP Bilateral deep vein thrombosis of lower extremities 988565567 I82.493 Eliquis 2.5 mg bidspoke with him at length about needing to contact PCP and pharmacy to get prior authorizat ion form for eliquisIVC filter in placefollo w up with PCP Peripheral nerve disease 827286531 G64 gabapentin to 300 mg tidtylenol as neededfoll ow up with PCP [id number] ELIZABETH JACKSON NP [address] [address] 10/15/2022 13:30:52 10/20/2022 10:25:28 Cellulitis of buttock 86788205 L03.317 Continue levaquin 500 mg daily x 3 daysAdd probiotic bid x 7 daysStill with inflammati on/indurat ion around woundTrend sx., VS, labsCBC, BMP q wednesday Alcohol dependence 08916 003 F10.288 s/p phenobarb protocol in hosp., no sx. of withdrawal Encourage abstinence Open wound of buttock 26 6320996 S31.829A With associated abscess and cellulitis Debrided 10/08Finish abx. as aboveCurre nt tx. moist kerlix and DCD daily and prnRefer to [facility] wound clinic for eval and tx. - pt. concerned about transporta tion - if too expensive can refer to Wound team hereMonito r wound, VS, labs for change Chronic ob structive pulmonary disease 69124175 J41.8 Combivent respimat 1 inh qid prnAlbuter ol MDI q4 hr prn - requesting to keep at bedside and self administer Continues to smoke Tobacco de pendence syndrome 59394562 F17.210 Continues to smoke hereEnc. abstinence Bilateral deep vein thrombosis of lower extremities 023372564 I82.493 eliquis 5 mg bids/p IVCmonitor [id number] Cecilia Tucker MD [facility] [address] [address] 10/19/2022 06:26:38 10/23/2022 13:52:00 Harmful pattern of use of alcohol 22194109 F10.10 social economist for 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 for sobrietyth iamine 100 mg dailyfolic acid 1 mg dailyMVI dailywill monitor Open wound of buttock 26 3596384 S31.829A s/p I&Dantibio tics completedw ound care per surgery recommenda tionsfollo w up wound clinic Chronic ob structive pulmonary disease 31132375 J41.8 Combivent 18-103: 1 puff q6h prnalbuter ol HFA: 1 puff q4h prnwill monitor Asthenia 23374950 R53.1 PT/OTwill monitor and support s needed History of deep vein thrombosis 803489297 Z86.718 apixaban 5 mg bidwill monitor [id number] Violette Newell NP [facility] [address] [address] 10/22/2022 11:09:43 10/26/2022 10:58:25 Harmful pattern of use of alcohol 82007238 F10.10 social economist for 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 for sobrietyno tremor noted, anxious at baselineth iamine 100 mg dailyfolic acid 1 mg dailyMVI dailywill monitor Open wound of buttock 26 7647931 S31.829A s/p I&D on 10/08/22 and po antibiotic s completed for cellulitis wound care per surgery recommenda tionsfollo w up wound clinic and dressings dailymonit or cbc and labs weekly Chronic ob structive pulmonary disease 60932765 J41.8 Combivent 18-103: 1 puff q6h prnalbuter ol HFA: 1 puff q4h prnwill monitor Asthenia 12685428 R53.1 PT/OTwill monitor and support s needed History of deep vein thrombosis 837214721 Z86.718 apixaban 5 mg bids/p ivc filterwill monitor Alcohol dependence 08327 003 F10.288 s/p phenobarb protocol in hosp., no sx. of withdrawal Encourage abstinence Tobacco de pendence syndrome 40055701 F17.210 Continues to smoke hererefuse s nicotine patchEnc. abstinence [id number] Violette Newell NP [facility] [address] [address] 10/26/2022 12:59:02 10/28/2022 08:31:09 Open wound of buttock 394413205 S31.829A s/p I&D on 10/08/22IV and po antibiotic s completed for cellulitis wound care per surgery recommenda tionsfollo w up wound clinic and dressings dailymonit or cbc and labs weekly Harmful pa ttern of use of alcohol 86431391 F10.10 social economist for 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 for sobrietyno tremor noted, anxious at baselineth iamine 100 mg dailyfolic acid 1 mg dailyMVI dailywill monitor Chronic ob structive pulmonary disease 00352922 J41.8 Combivent 18-103: 1 puff q6h prnalbuter ol HFA: 1 puff q4h prnwill monitor Asthenia 66110138 R53.1 PT/OTwill monitor and support s needed History of deep vein thrombosis 670705883 Z86.718 apixaban 5 mg bids/p ivc filterwill monitor Alcohol dependence 86904 003 F10.288 s/p phenobarb protocol in hosp., no sx. of withdrawal Encourage abstinence Tobacco de pendence syndrome 91214070 F17.210 Continues to smoke here now on scheduled breaks with staffrefus es nicotine patchEnc. abstinence Intertrigo 32827622 L30. 4 nystatin topically powder bid and prn x 14 daysmonito r Neuropathy 863665475 G62 .[address] De La Cruz this weekend09/30 8 she recommends 2% gel diclofenac topically 2 gram to bilateral feet bid, will agree todaymonit or for relief [id number] [facility] [address] 10/27/2022 10:55:47 10/29/2022 09:47:39 Open wound of buttock 684906841 S31.829A s/p I&D on 10/08/22IV and po antibiotic s completed for cellulitis follow up wound clinic and dressings every 3rd day with stacy ng to wound [employer] WAREHOUSE AGENT herecurren t order to left buttock wound irrigiate with wound wash, pack with hydrofera blue-moist en with ns, squeeze excess out. cover wtih zetuvit plus silicone bordered dressing q 3 dayscont protein liquid or supplement s to add in wound healingmon itor outpt with pcp and vna Intertrigo 02391564 L30. 4 nystatin topically powder bid and prn until healedvna to assess for resolution monitor outpt Neuropathy 990273827 G62 .[address] De La Cruz this weekend2% gel diclofenac topically 2 gram to bilateral feet bidmonitor for relief outpt, pt/ ot to assess for safety, strengthen ing and balance Harmful pa ttern of use of alcohol 28000617 F10.10 social economist for 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 for sobrietyno tremor noted, anxious at baselineth iamine 100 mg dailyfolic acid 1 mg dailyMVI dailywill monitor outpt with pcp Chronic ob structive pulmonary disease 22735958 J41.8 Combivent 18-103: 1 puff q6h prnalbuter ol HFA: 1 puff q4h prnmonitor outpt with pcp Asthenia 08999156 R53.1 improved herewill monitor and support s needed outptmonit or outpt, pt/ ot to assess for safety, strengthen ing and balance, offloading pressure to wound, and safety conditions at home History of deep vein thrombosis 809640261 Z86.718 apixaban 5 mg bids/p ivc filterwill monitor outpt Alcohol dependence 98314 003 F10.288 s/p phenobarb protocol in hosp., no sx. of withdrawal Encourage abstinence outpt and services as needed Tobacco de pendence syndrome 74312634 F17.210 Continues to smoke here now on scheduled breaks with staff, plans to continue smokingref uses nicotine patchEnc. abstinence Health Concerns Section Related Observation LastModified by Organization Detai ls LastModified Time None Recorded Concern Status LastModified by Organization Details LastModified Time None Recorded Advance Directives Directive Y: Payers Insurance Date Sequence Insurance Name Policy Number Policy Ruiz Covered Member ID Ruiz Member ID Guarantor Name 10/14/2022 1 [facility] (MEDICAID HMO) [id number] Edgardo Zavala [id number] Edgardo Zavala 10/26/2022 1 [facility] - DOS ON OR AFTER 2022 - MEDICARE ADVANTAGE [place]MEDICARE REPLACEMENT/ADV ANTAGE - PPO) Edgardo Zavala [id number] Edgardo Zavala Notes Date Note Type Note Provider Name and Address Organization Details Recorded Time 10/15/2022 text/html Edgardo is seen today for initial intake. He is a 62 yo male admitted to [facility] 10/14/22 from [facility] for continued care and rehab after a brief hosp. related to a buttock wound and cellulitis. He presented to [facility] 10/07 with several days of buttock pain and difficulty sitting. Hx. of ETOH abuse, had not had a drink in 3 days, starting to show signs of withdrawl.Treated with phenobarb protocol, folic acid, and thiamine, no s/s withdrawal.Found to have left buttock cellulitis with deep ulcer/abscess 4/4/cm. Underwent debridement 10/08, cx. grew Citrobacter freundii, treated with IV Zosyn and Vanco. Wound packed with kerlix and covered with DCD. Needs follow up with [facility] [facility], ? wound vac. Upon d/c abx. changed to levaquin x 3 more days.DVT - remained on eliquisTobacco use - nicoderm patchCOPD - stable PMH: ETOH abuse, anemia, BLE DVTs IVC filter 2016 and bilat. thrombolysis, chronic hepatitis, COPD, PVD, thrombocytopenia, tobacco use, UTIMOLST: full code ELIZABETH JACKSON, ARNOLD [address] [facility], [address], [place], [address], [facility] - [employer] 10/15/2022 14:49:09 10/19/2022 text/html This 62 year old man was admitted to [facility] on 10/14/22for rehab and continued care. 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 on 10/07/22. He was having several days of buttock and rectal pain and difficulty sitting due to his stage IV decubitus ulcer. Patient had no fever and WBCs were normal. He also said he had been sober for 3 days but was feeling withdrawal symptoms. Patient was started on Zosyn and vancomycin on 10/07/22 for gluteal abscess. He underwent I&D on 10/08/22. Wound culture grew Citrobacter freundii. BCs remained negative. Antibiotic was transitioned to levofloxacin at hospital discharge to complete 10 days of antibiotics with recommendation to follow up with wound clinic. During hospital stay, patient was started on phenobarbital protocol for alcohol withdrawal as well as folic acid, and thiamine. Pain was not well controlled and he was switched to morphine 4 mg q4h. PT evaluated and recommended STR. Surgery recommended daily dressing changes to gluteal ulcer. Pack with gauze soaked with normal saline, cover with dry clean dressing, protect surrounding skin. It was also recommended to taper pain meds as tolerated. MOLST: full code - signed 10/15/22 Cecilia Tucker MD [address] [facility], [address], [place], [address], [facility] - [employer] 10/19/2022 14:28:20 10/22/2022 text/html Patient is seen for an acute rounding visit today. 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 62 year old man was admitted to [facility] on 10/14/22for rehab and continued care after presenting to the ER at [facility] on 10/07/22. He was having several days of buttock and rectal pain and difficulty sitting due to his stage IV decubitus ulcer. He reported being sober for 3 days but was feeling withdrawal symptoms. During his hospital stay his had no fever and WBCs were normal. Patient was started on Zosyn and vancomycin on 10/07/22 for gluteal abscess and underwent I&D on 10/08/22. Wound culture grew Citrobacter freundii. BCs remained negative. Antibiotic was transitioned to levofloxacin at hospital discharged with levofloxacin antibiotic which is now completed with recommendation to follow up with wound clinic. Surgery recommended daily dressing changes to gluteal ulcer. Pack with gauze soaked with normal saline, cover with dry clean dressing, protect surrounding skin.He was started on phenobarbital protocol for alcohol withdrawal as well as folic acid, and thiamine for his alchohol withdrawal. Labs reviewed and stable On exam, he is walking up and down the halls this am in NAD. He states he is okay and having difficulty with his plan to smoke here, as he would like to smoke more. He has been escorted per policy for breaks several times a day and plan is in place and nursing will follow with this. He refuses a nicotine patch again today. He states he has mild pain and tylenol ordered. His states he only has a scab left for a wound and its getting better, however on exam, he has a decubital coccyx ulcer similar to the discharge instructions and pictures in the dc summary from his initial visit. MOLST: full code - signed 10/15/22 Violette Newell NP [address] [facility], [address], [place], [address], [facility] [employer] 10/22/2022 11:32:05 10/26/2022 text/html Patient is seen for an acute rounding visit today. 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 He is seen today for nursing concerns of groin itching and redness and bilateral feet neuropathy pain. He has notable red moist area to his right groin area today. He is agreeable to change his brief more frequently and nursing aware also. Will start nystatin powder. Patient was seen by Dr. Fisher with recommendation for diclofenec 2 % gel 2 gram topically bid to bilateral feet which will be ordered today. He reports his feet are sore at times and he would like to try it. His wound is not seen today as it was dressed by nursing recently per patient. He is followed by the wound nurse. On exam, he is in NAD. He just came back from a smoke break today. He denies any other concerns or medical issues. Labs reviewed and stable. Note: 62 year old man was admitted to [facility] on 10/14/22for rehab and continued care after presenting to the ER at [facility] on 10/07/22. He was having several days of buttock and rectal pain and difficulty sitting due to his stage IV decubitus ulcer. He reported being sober for 3 days but was feeling withdrawal symptoms. During his hospital stay his had no fever and WBCs were normal. Patient was started on Zosyn and vancomycin on 10/07/22 for gluteal abscess and underwent I&D on 10/08/22. Wound culture grew Citrobacter freundii. BCs remained negative. Antibiotic was transitioned to levofloxacin at hospital discharged with levofloxacin antibiotic which is now completed with recommendation to follow up with wound clinic. Surgery recommended daily dressing changes to gluteal ulcer. Pack with gauze soaked with normal saline, cover with dry clean dressing, protect surrounding skin.He was started on phenobarbital protocol for alcohol withdrawal as well as folic acid, and thiamine for his alcohol withdrawal. MOLST: full code - signed 10/15/22 Violette Newell NP [address] [facility], [address], [place], [address], [place] - [facility] 10/26/2022 13:39:46 10/27/2022 text/html Patient is seen for a discharge summary visit today. Edgardo is a 62 year old man was admitted to [facility] on 10/14/22for rehab and continued care after presenting to the ER at [facility] on 10/07/22. He was having several days of buttock and rectal pain and difficulty sitting due to his stage IV decubitus ulcer. He reported being sober for 3 days but was feeling withdrawal symptoms. During his hospital stay his had no fever and WBCs were normal. Patient was started on Zosyn and vancomycin on 10/07/22 for gluteal abscess and underwent I&D on 10/08/22. Wound culture grew Citrobacter freundii. BCs remained negative. Antibiotic was transitioned to levofloxacin at hospital discharged with levofloxacin antibiotic which is now completed with recommendation to follow up with wound clinic. Surgery recommended daily dressing changes to gluteal ulcer. Pack with gauze soaked with normal saline, cover with dry clean dressing, protect surrounding skin.He was started on phenobarbital protocol for alcohol withdrawal as well as folic acid, and thiamine for his alcohol withdrawal. 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 On 10/25/22 Dr. De La Cruz with recommendation for diclofenec 2 % gel 2 gram topically bid to bilateral feet. His sacral wound is seen today measuring 2.5cm length by 1.5 cm wide by 2.5 cm deep which is much improved since admission. Wound bed is clean with pink granulation tissue and no malodor. He is ordered for dressing every 3 days now according to the wound [employer]. His groin is improving with the nystatin powder and frequent changes. On exam, he is in NAD. He denies any medical concerns today and only wants to go home with vna and help at home. He states he is excited about going home and will try to continue with alcohol abstinence. He will follow with pcp Dr. Perez and vna outpt. MOLST: full code - signed 10/15/22 Violette Newell NP [address] [facility], [address], [place], [address], [facility] - [facility] 10/28/2022 10:11:07
[2024-11-26 15:28] LABS: NRBC Abs Auto 0.000 X10*3/uL (0.0-0.012); NRBC Pct Auto 0.0 /100WBC (0.0-0.2); PLT CLUMP 1; SCAN SMEAR FLAG 1
[2024-11-26 15:30] LABS: Hematocrit 39.7 % (42.0-52.0); Hemoglobin 13.8 g/dl (14.0-18.0); Imm Gran Abs Auto 0.02 X10*3/uL (0.00-0.03); Imm Gran Pct Auto 0.4 % (0.0-0.4); Lymphocytes Absolute Auto 0.9 X10*3/uL (1.2-4.9); MANUAL DIFF FLAG SCAN; Mean Corpuscular HGB Conc 34.8 g/dl (31.0-36.0); Mean Corpuscular Hemoglobin 30.2 pg (27.0-33.0); Mean Corpuscular Volume 86.9 fL (80.0-98.0); Red Blood Count 4.57 X10*6/uL (4.60-5.80)
[2024-11-26 15:50] LABS: White Blood Count 5.0 X10*3/uL (4.8-10.8)
[2024-11-26 15:51] LABS: Platelet Count 113 X10*3/uL (160-400)
[2024-11-26 15:57] LABS: Alanine Aminotransferase 54 U/L (0-40); Albumin Level 4.4 g/dL (3.5-5.0); Alkaline Phosphatase 157 U/L (39-117); Anion Gap 19 (12-20); Aspartate Amino Transferase 74 U/L (5-37); Blood Urea Nitrogen 8 mg/dL (9-16); Calcium 9.3 mg/dL (8.4-10.2); Carbon Dioxide 28 mmol/L (22-29); Chloride 98 mmol/L (96-108); Creatinine Clr Calc Pharmacy 93.5; Estimated Glomerular Filt Rate > 60; Magnesium 1.4 mg/dL (1.6-2.6); Potassium 3.7 mmol/L (3.3-5.1); Sodium 141 mmol/L (135-145); Total Protein 7.5 g/dL (6.5-8.0)
[2024-11-26 16:00] VITALS: BP 110/75; PULSE 85; RESP 18; O2SAT 94
[2024-11-26] MEDS: Magnesium Sulfate/H2O 2 GM/50 ML PIGGYBACK IV (16:36)
--- NOTE | 2024-11-26 16:42 | MHC.RECOVRN ---
MET WITH PT IN ED2 AFTER RECEIVING ADDICTION CONSULT FOR ATS. SEE RECOVERY EVAL FOR MORE INFO. ATS REFERRALS SENT TO THE FOLLOWING FACILITIES PER PT REQUEST. PT WANTS TO GO ANYWHERE BUT EDYTA [facility] TEAM PHONE # WAS PROVIDED IN CASE PT GETS ACCEPTED OR FOR ANY QUESTIONS/CONCERNS.
--- NOTE | 2024-11-26 17:59 | MHC.CARE ---
Patient given information for [facility] where there are available detox beds today. He can do an intake with Esther at [phone]. RN has this contact information as well. Provider, HIMA Drake update
--- NOTE | 2024-11-26 18:56 | PC.NURSE ---
this rn assumed care of pt, pt resting in stretcher, no acute distress noted. pt awaiting detox placement.
--- NOTE | 2024-11-26 21:16 | PC.NURSE ---
pt given patient phone at this time to call [facility] at [phone]. Per Nan Young
--- NOTE | 2024-11-26 21:50 | PC.NURSE ---
per care team, pt accepted to detox facility. Provider aware, pt ready for d/c and transport being booked at this time. vss
[2024-11-26 21:53] VITALS: BP 131/86; PULSE 99; RESP 17; TEMP 36.7; O2SAT 98
[2024-11-26 22:15] VITALS: BP 131/86; PULSE 99; RESP 17; TEMP 36.7; O2SAT 98
== END 2024-11-26 22:15 | disposition other institution (70) ==
PROVIDERS: Physician Assistant; Emergency Provider Emergency Medicine Emergency Medical Services; PCP Internal Medicine
DX: F10.129 Alcohol abuse with intoxication, unspecified (principal); Y90.7 Blood alcohol level of 200-239 mg/100 ml; E83.42 Hypomagnesemia; I45.10 Unspecified right bundle-branch block; R94.31 Abnormal electrocardiogram [ECG] [EKG]; Z91.81 History of falling; Z79.899 Other long term (current) drug therapy; F17.210 Nicotine dependence, cigarettes, uncomplicated; Z51.81 Encounter for therapeutic drug level monitoring
CPT/HCPCS: 36415; 80053; 80307; 83735; 85025; 93005; 96365; 96366; 99284; 99285; J3475; S9485

== ENCOUNTER → 2024-11-26 14:45 | Outpatient (BNV) | payer OTHER, SELFPAY | PROVIDERS: Emergency Provider Emergency Medicine Emergency Medical Services; PCP Internal Medicine; Visit Provider Internal Medicine Cardiovascular Disease | DX: I45.2 Bifascicular block (principal) | CPT/HCPCS: 93010 ==

== ENCOUNTER 2024-12-18 14:44 | Emergency (ER) | payer OTHER, SELFPAY ==
--- NOTE | ~2024-12-18 | XR_ITS ---
EXAMINATION: XR RIBS, LEFT CLINICAL INFORMATION: L rib pain COMPARISON: Chest radiograph 06/07/2023 TECHNIQUE: PA chest, and 3 views of the left ribs were obtained. FINDINGS: Lungs are clear. No consolidation, pneumothorax, or pleural effusion. The cardiomediastinal silhouette and pulmonary vasculature are normal. Osseous structures are unremarkable. Ribs are intact. No fractures are identified. XR/XR ribs LT min 3V w CXR1V IMPRESSION: Unremarkable examination. Electronically signed by: Jp Joseph MD 12/18/2024 04:25 PM EDT
--- NOTE | 2024-12-18 14:58 | ECG_ITS ---
Test Reason : CP Blood Pressure : */* mmHG Vent. Rate : 89 BPM Atrial Rate : 89 BPM P-R Int : 130 ms QRS Dur : 126 ms QT Int : 384 ms P-R-T Axes : 63 -82 45 degrees QTcB Int : 467 ms Normal sinus rhythm Right bundle branch block Left anterior fascicular block Bifascicular block Abnormal ECG When compared with ECG of 26-Nov-2024 15:16, No significant change was found Referred By: Generic ED Physician Electronically Signed By: WAYNE AVILEZ MD
[2024-12-18 15:00] VITALS: BP 97/56; BP 99/65; PULSE 100; PULSE 87; RESP 18; TEMP 36.1; O2SAT 92; O2SAT 94
[2024-12-18 15:21] LABS: MANUAL DIFF FLAG NO
[2024-12-18 15:23] LABS: Hematocrit 39.8 % (42.0-52.0); Hemoglobin 13.1 g/dl (14.0-18.0); Imm Gran Abs Auto 0.01 X10*3/uL (0.00-0.03); Imm Gran Pct Auto 0.2 % (0.0-0.4); Lymphocytes Absolute Auto 1.5 X10*3/uL (1.2-4.9); Mean Corpuscular HGB Conc 32.9 g/dl (31.0-36.0); Mean Corpuscular Hemoglobin 29.1 pg (27.0-33.0); Mean Corpuscular Volume 88.4 fL (80.0-98.0); NRBC Abs Auto 0.000 X10*3/uL (0.0-0.012); NRBC Pct Auto 0.0 /100WBC (0.0-0.2); Platelet Count 202 X10*3/uL (160-400); Red Blood Count 4.50 X10*6/uL (4.60-5.80); White Blood Count 5.1 X10*3/uL (4.8-10.8)
[2024-12-18 16:10] LABS: Anion Gap 19 (12-20); Blood Urea Nitrogen 11 mg/dL (9-16); Calcium 8.6 mg/dL (8.4-10.2); Carbon Dioxide 26 mmol/L (22-29); Chloride 102 mmol/L (96-108); Creatinine Clr Calc Pharmacy 98.1; Estimated Glomerular Filt Rate > 60; Potassium 3.7 mmol/L (3.3-5.1); Sodium 143 mmol/L (135-145)
[2024-12-18] MEDS: Albuterol Sulfate 90 MCG 8 GM INHALER 4 PUFF INHALE (16:10)
[2024-12-18 16:13] VITALS: PULSE 86; RESP 16; O2SAT 88
[2024-12-18 16:21] LABS: Troponin-I High Sensitivity < 2.7 ng/L (<3.5-35.0)
--- NOTE | 2024-12-18 16:32 | ED_ITS ---
HPI - Alcohol General Chief Complaint: ETOH/Substance Use Stated Complaint: ETOH,LOOKING FOR HELP PER EMS Time Seen by Provider: 12/18/24 15:30 Source: patient, EMS, RN notes reviewed and old records reviewed Mode of arrival: EMS History of Present Illness ED Provider: Melly Beltran PA-C HPI narrative: 64-year-old male with a past medical history of alcohol use disorder, presenting to the ED via EMS complaining of ETOH intoxication/requesting detox and persistent left-sided chest pain since yesterday. Reports chronic SOB/cough with known history of COPD. Admits to drinking EtOH this morning, unclear how much or when last drink was. Denies other illicit substance use. Denies SI/HI. Denies recent injury/trauma or fall, abdominal pain, nausea/vomiting, back pain Related Data Home Medications ?Medication ?Instructions ?Recorded ?Confirmed apixaban 5 mg tablet (Eliquis) 5 mg PO BID 08/29/22 folic acid 1 mg tablet 1 mg PO DAILY 06/08/2306/07 hydroxyzine pamoate 25 mg capsule 25 - 50 mg PO TID OH N Anxiety 06/08/23 06/08/23 sertraline 100 mg tablet 100 mg PO DAILY 06/08/2311/22 Previous Rx's ?Medication ?Instructions ?Recorded prednisone 10 mg tablet See Taper PO DIRECTED #20 tabs 06/09/23 thiamine mononitrate (vit B1) 100 100 mg PO DAILY #90 tabs 06/09/23 mg tablet azithromycin 250 mg tablet See Rx Instructions PO .COM PLEX #6 10/26/24 tabs prednisone 20 mg tablet 40 mg (2 x 20 mg) PO DAILY 5 days 10/26/24 #10 tabs Allergies Allergy/AdvReac Type Severity Reaction Status Date / Time Peanut Butter Allergy Facial Verified 12/18/24 15:02 Swelling raspberry Allergy Facial Verified 12/18/24 15:02 Swelling Review of Systems 2 Review of Systems: Yes all other systems are reviewed and are negative Constitutional: Constitutional: Reports as per HPI [facility] Past Medical History Attestation statement: The following information was validated with the patient. Source: old records reviewed Medical History Alcohol withdrawal Alcohol dependence Presence of IVC filter Acute and chronic respiratory failure with hypoxia COPD (chronic obstructive pulmonary disease) Alcohol use disorder, severe, dependence Tobacco abuse Subdural hematoma DVT (deep venous thrombosis) COPD (chronic obstructive pulmonary disease) Asthma Neuropathy Alcohol abuse Social History Social History Household Members: None Housing: House Do you presently have visiting nurse or other home services: No Alcohol intake: current Alcohol intake frequency: 3 or more drinks per day Alcohol type: hard liquor Comment: pt refuses high fall risk interventions Patient Tobacco Use Status: Current everyday Tobacco user Tobacco use type: Cigarette Cigarette Packs Per Day: 1 Cigarettes Per Day: 20.0 e-Cigarette/Vaping Use: Never Used Second Hand Smoke Exposure: No Substance Use Type: Marijuana Advance Directives: Yes Advance Directives on File: Yes Advance Directives Date on File: 03/05/22 service: No Current occupational status: disabled Physical Exam ED Vital Signs: Vital Signs - 24 hr 12/18/24 15:00 12/18/24 16:13 Temperature 96.9 F Pulse Rate 87 86 Respiratory Rate 18 16 Blood Pressure 99/65 Pulse Oximetry 92 Oxygen Delivery Method Room Air BMI result Body Mass Index 20.0 Const Other: ETOH odor on breath General: cooperative and no acute distress Orientation/consciousness: patient oriented x3 HENMT Head: Yes normal to inspection and Yes atraumatic Ears: hearing grossly normal bilaterally General nose exam: Normal external nose present Face and sinus: Yes normal facial exam Eyes General: appearance normal, both eyes and all related structures EOM: EOMs intact bilaterally Neck Neck: Yes normal visual inspection and Yes no meningeal signs Chest Other: + tenderness to palpation to left lower anterior lateral chest wall. No ecchymosis/erythema. No flail chest. No crepitus. Chest palpation & inspection: normal inspection of the chest and tenderness Resp Effort & Inspection: normal respiratory effort and no respiratory distress Auscultation: wheezes expiratory wheezes (Faint) Cardio Rate: regular rate Heart sounds: S1 normal heart sound present and S2 normal heart sound present GI Inspection: Yes normal to inspection Palpation (GI): Soft to palpation, nontender, no guarding and not rigid General: Yes no CVA tenderness Back/Spine/Pelvis Other: No midline cervical/thoracic/lumbar spinous tenderness/step-off or deformity Back: no CVA tenderness Skin Rashes: no rashes Wounds: no wounds Neuro General: patient oriented x3, tone normal, moves all extremities, no meningeal signs, no focal motor deficits and CN's II-XI intact bilaterally Cranial nerves: Yes CN's II-XII intact bilaterally Extrem General: Yes normal to inspection Psych Thought content: suicidality and no homicidality Course Course Course Narrative: -labs reassuring. Ethanol 297 XR ribs LT min 3V w CXR1V IMPRESSION: Unremarkable examination. -1647--physician observation initiated as patient needs more time for clinical sobriety/recovery team consult -1800--ED care transferred to Dr. Sosa pending recovery consult & sobriety. Medical Decision Making Medical Decision Making [facility] Narrative: 64-year-old male with a past medical history of alcohol use disorder, presenting to the ED via EMS complaining of ETOH intoxication/requesting detox and persistent left-sided chest pain since yesterday. Reports chronic SOB/cough with known history of COPD. On exam vital signs stable, NAD, nontoxic appearing, physical exam as noted above with reproducible left anterior lateral chest wall tenderness without evidence of trauma. Faint expiratory wheeze appreciated. ETOH odor on breath. No focal deficits. No midline spinous tenderness. Concern for ETOH intoxication/dependence. No evidence of withdrawal at this time. Concern for rib fracture vs contusion vs COPD vs pneumonia. Lower suspicion for ACS/PE or DVT at this time. Lower suspicion for dissection Plan: EKG, labs, tox screen, x-ray, recovery consult Please refer to course for remaining clinical decision making, interpretation of labs/imaging results, and discussions with consultants and/or family members. Differential Diagnosis Differential Diagnoses: The differential diagnosis associated with the presentation includes As above Admission/Observation Consideration of admission/observation: Escalation of care including admission/observation considered Consult Healthcare Provider Management of the patient was discussed with: Creative Writing English Professor Lab Data [facility] Lab Attestation statement: I reviewed the patient's lab results. 12/18/24 15:15 12/18/24 15:15 Labs: Lab Results 12/18/24 Range/Units 15:15 WBC 5.1 (4.8-10.8) X10*3/uL RBC 4.50 L (4.60-5.80) X10*6/uL Hgb 13.1 L (14.0-18.0) g/dl Hct 39.8 L (42.0-52.0) % MCV 88.4 (80.0-98.0) fL MCH 29.1 (27.0-33.0) pg MCHC 32.9 (31.0-36.0) g/dl RDW 16.9 H (11.0-16.0) % Plt Count 202 D (160-400) X10*3/uL MPV 8.7 L (9.4-12.4) fL Immature Gran % (Auto) 0.2 (0.0-0.4) % Neut % (Auto) 59.6 (45-73) % Lymph % (Auto) 29.5 (20-40) % [place] % (Auto) 9.1 (2-11) % Eos % (Auto) 0.8 (0-4) % Baso % (Auto) 0.8 (0-2) % Lymph # (Auto) 1.5 (1.2-4.9) X10*3/uL [place] # (Auto) 0.5 (0.1-1.2) X10*3/uL Eos # (Auto) 0.0 (0.0-0.4) X10*3/uL Baso # (Auto) 0.0 (0.0-0.2) X10*3/uL Abs Immat Gran (auto) 0.01 (0.00-0.03) X10*3/uL Absolute Neuts (auto) 3.0 (2.0-8.3) x10*3/uL Absolute Nucleated RBC 0.000 (0.0-0.012) X10*3/uL Nucleated RBC % (auto) 0.0 (0.0-0.2) /100WBC Sodium 143 (135-145) mmol/L Potassium 3.7 (3.3-5.1) mmol/L Chloride 102 (96-108) mmol/L Carbon Dioxide 26 (22-29) mmol/L Anion Gap 19 (12-20) BUN 11 (9-16) mg/dL Creatinine 0.66 (0.5-1.4) mg/dL Estim Creat Clear Calc 98.1 Estimated GFR > 60 Random Glucose 92 (60-115) mg/dL Calcium 8.6 D (8.4-10.2) mg/dL Magnesium 1.6 (1.6-2.6) mg/dL Total Bilirubin 0.3 (0.0-1.0) mg/dL Direct Bilirubin 0.2 (0.0-0.5) mg/dL AST 27 (5-37) U/L ALT 10 (0-40) U/L Alkaline Phosphatase 130 H (39-117) U/L Troponin I High Sens < 2.7 (<3.5-35.0) ng/L Total Protein 7.4 (6.5-8.0) g/dL Albumin 4.0 (3.5-5.0) g/dL Lipase 20 (8-78) U/L Ethyl Alcohol 297 mg/dL Independent Interpretation I performed an independent interpretation of an: EKG (My interpretation: EKG normal sinus rhythm rate 89. OH interval 130. QTC 467. No significant change when compared to prior) Radiology Impression Discussion of test interpretation with radiology: I have reviewed the radiologist's reading. Independent Historian Clinical information obtained from an independent historian. History obtained from or confirmed by: EMS External Record Review External record reviewed: Inpatient record, Office record, Outpatient record, Prior outpatient labs, Prior outpatient radiology, Primary care record and Outside ED record Tests considered The following testing was considered but not selected: As above Prescription Management I considered prescription management with: Pain Medication Chronic Conditions Patient?s care impacted by: Other (COPD) Social Determinants Patient?s care significantly limited by Social Determinants of Health including: Alcoholism and drug addiction in family and Other Social Determinant of Health Medications Administered Discontinued Medications Generic Name Dose Route Start Last Admin Trade Name Freq PRN Reason Stop Dose Admin Albuterol Sulfate 4 puff 12/18/24 16:06 12/18/24 16:10 Albuterol Sulfate 90 Mcg 8 Gm Inhaler INHALE 12/18/24 16:07 4 puff ONCE ONE Administration Discharge Plan Discharge Clinical Impression: Alcoholic intoxication, Chest pain Additional Instructions: Alcohol use disorder You were seen in the Emergency Department today for treatment of alcohol use disorder.? You may have been given medications to help with your withdrawal symptoms.? Please do not drink alcohol with them. This is very dangerous and can cause respiratory depression or other adverse reactions depending on the medication. If you would like to cut down or stop your alcohol use please consider calling our outpatient Addiction Treatment office:? [facility] (M-F 9a-[id number]) [address] [place] [address] You have also been given a list of treatment providers in the area that can assist as well.? If you experience seizures, vomiting blood, black stools, falls, severe headache, chest pain, fevers, trouble breathing, hallucinations or any other concerns you need to call 911 or seek immediate care. Please stay hydrated. Prescriptions: No Action Eliquis 5 mg tablet 5 mg PO BID sertraline 100 mg tablet 100 mg PO DAILY folic acid 1 mg tablet 1 mg PO DAILY hydroxyzine pamoate 25 mg capsule 25 - 50 mg PO TID PRN (Reason: Anxiety) thiamine mononitrate (vit B1) 100 mg Tablet 100 mg PO DAILY Qty: 90 0RF prednisone 10 mg tablet See Taper PO DIRECTED Qty: 20 0RF Taper: Prednisone 40 mg daily for 2 Days and 0 Hour 30 mg daily for 2 Days and 0 Hour 20 mg daily for 2 Days and 0 Hour 10 mg daily for 2 Days and 0 Hour Rx Instructions: see taper instructions azithromycin 250 mg tablet See Rx Instructions .ROUTE .COMPLEX Qty: 6 0RF Rx Instructions: For 250 mg dose pack: take 500 mg today (day 1), then 250 mg for 4 days (days 2-5) prednisone 20 mg tablet 40 mg PO DAILY 5 Days Qty: 10 0RF Referrals: Cristhian Delgado MD [Primary Care Provider, Internal Medicine] Print Language: Bulgarian
--- NOTE | 2024-12-18 16:32 | PC.NURSE ---
Requested and given ice water. Okayed by HIMA Beltran.
[2024-12-18 16:39] LABS: Alanine Aminotransferase 10 U/L (0-40); Albumin Level 4.0 g/dL (3.5-5.0); Alkaline Phosphatase 130 U/L (39-117); Aspartate Amino Transferase 27 U/L (5-37); Lipase 20 U/L (8-78); Magnesium 1.6 mg/dL (1.6-2.6); Total Protein 7.4 g/dL (6.5-8.0)
[2024-12-18 19:22] VITALS: BP 110/71; PULSE 88; RESP 16; TEMP 36.8; O2SAT 93
--- NOTE | 2024-12-18 19:28 | MHC.EDTECH ---
Pt ambulated to and from bathroom with the use of personal cane and a steady gait. Urine collected and sent to lab. Pt currently eating sandwiches, snacks, and fluids.
[2024-12-18 19:49] LABS: Cannabinoid Screen Urine Not Detected (Not Detect)
--- NOTE | 2024-12-18 19:55 | PC.NURSE ---
this RN assumed care of this pt @1900, pt noted to be laying semi arguelles's in stretcher, respirations even and unlabored, no apparent distress noted
[2024-12-18 21:35] VITALS: RESP 18
[2024-12-18 22:23] VITALS: BP 121/70; PULSE 109; RESP 20; TEMP 37.1; O2SAT 92
[2024-12-19 04:00] VITALS: RESP 16
[2024-12-19 05:45] VITALS: RESP 18
[2024-12-19 07:11] VITALS: BP 148/68; PULSE 106; RESP 18; TEMP 36.4; O2SAT 97
== END 2024-12-19 07:13 | disposition home or self-care (01) ==
PROVIDERS: Emergency Medicine; Physician Assistant; Student in an Organized Health Care Education/Training Program; Emergency Provider Emergency Medicine; PCP Internal Medicine
DX: F10.129 Alcohol abuse with intoxication, unspecified (principal); R07.89 Other chest pain; J44.9 Chronic obstructive pulmonary disease, unspecified; Y90.8 Blood alcohol level of 240 mg/100 ml or more; R06.02 Shortness of breath; R05.9 Cough, unspecified; Z79.899 Other long term (current) drug therapy; F17.210 Nicotine dependence, cigarettes, uncomplicated; Z51.81 Encounter for therapeutic drug level monitoring; Z71.41 Alcohol abuse counseling and surveillance of alcoholic
CPT/HCPCS: 36415; 71101; 80048; 80076; 80307; 83690; 83735; 84484; 85025; 93005; 94640; 99285; S9485

== ENCOUNTER → 2024-12-18 14:58 | Outpatient (BNV) | payer OTHER, SELFPAY | PROVIDERS: PCP Internal Medicine; Visit Provider Internal Medicine Cardiovascular Disease | DX: I45.2 Bifascicular block (principal) | CPT/HCPCS: 93010 ==

== ENCOUNTER → 2024-12-18 16:03 | Outpatient (BNV) | payer OTHER, SELFPAY | PROVIDERS: Emergency Provider Emergency Medicine; PCP Internal Medicine; Visit Provider Radiology Diagnostic Radiology | DX: R07.89 Other chest pain (principal) | CPT/HCPCS: 71101 ==

== ENCOUNTER 2025-01-04 14:43 | Emergency (ER) | payer OTHER, SELFPAY ==
[2025-01-04] VITALS (7 sets, daily range): BP systolic 97–129; BP diastolic 71–82; PULSE 80–108; RESP 13–20; TEMP 36.4–36.8; O2SAT 84–98; BMI 20.7
--- NOTE | 2025-01-04 | ECG_ITS ---
Test Reason : tachy Blood Pressure : */* mmHG Vent. Rate : 93 BPM Atrial Rate : 93 BPM P-R Int : 144 ms QRS Dur : 126 ms QT Int : 374 ms P-R-T Axes : 80 -80 48 degrees QTcB Int : 465 ms Normal sinus rhythm Right bundle branch block Left anterior fascicular block Bifascicular block Abnormal ECG When compared with ECG of 18-Dec-2024 15:03, T wave inversion now evident in Anterior leads Referred By: Generic ED Physician Electronically Signed By: Michael Alejandra
--- NOTE | ~2025-01-04 | XR_ITS ---
EXAMINATION: XR CHEST CLINICAL INFORMATION: pneumonia/SOB COMPARISON: 12/18/2024. TECHNIQUE: 2 views of the chest were obtained. FINDINGS: Mildly elevated right hemidiaphragm, unchanged. The cardiac, hilar, and mediastinal contours are normal. The lungs are clear bilaterally. There is no pneumothorax or pleural effusion. There is no focal osseous or soft tissue abnormality. XR/XR chest 2V IMPRESSION: No active pulmonary disease. Electronically signed by: Jp Joseph MD 01/04/2025 04:04 PM MIAH
[2025-01-04 15:28] LABS: MANUAL DIFF FLAG NO
[2025-01-04 15:30] LABS: Hematocrit 40.7 % (42.0-52.0); Hemoglobin 13.9 g/dl (14.0-18.0); Imm Gran Abs Auto 0.01 X10*3/uL (0.00-0.03); Imm Gran Pct Auto 0.3 % (0.0-0.4); Lymphocytes Absolute Auto 0.8 X10*3/uL (1.2-4.9); Mean Corpuscular HGB Conc 34.2 g/dl (31.0-36.0); Mean Corpuscular Hemoglobin 30.3 pg (27.0-33.0); Mean Corpuscular Volume 88.9 fL (80.0-98.0); NRBC Abs Auto 0.000 X10*3/uL (0.0-0.012); NRBC Pct Auto 0.0 /100WBC (0.0-0.2); Red Blood Count 4.58 X10*6/uL (4.60-5.80); White Blood Count 3.5 X10*3/uL (4.8-10.8)
[2025-01-04 15:33] LABS: Platelet Count 90 X10*3/uL (160-400)
[2025-01-04 15:41] LABS: Anion Gap 19 (12-20); Blood Urea Nitrogen 10 mg/dL (9-16); Calcium 8.3 mg/dL (8.4-10.2); Carbon Dioxide 26 mmol/L (22-29); Chloride 97 mmol/L (96-108); Creatinine Clr Calc Pharmacy 93.0; Estimated Glomerular Filt Rate > 60; Potassium 3.3 mmol/L (3.3-5.1); Sodium 139 mmol/L (135-145)
[2025-01-04 15:49] LABS: Troponin-I High Sensitivity 3.5 ng/L (<3.5-35.0)
--- NOTE | 2025-01-04 18:00 | PC.NURSE ---
Pharmacy contacted for folic acid dose. Awaiting arrival
--- NOTE | 2025-01-04 18:03 | ED_ITS ---
HPI - General Adult General Chief complaint: General Medical Stated complaint: NAUSEA,ALCOHOL W/DRAWAL,LAST DRANK 3D AGO Time Seen by Provider: 01/04/25 17:07 Source: patient, RN notes reviewed and old records reviewed Mode of arrival: EMS Limitations: no limitations History of Present Illness ED Provider: Moise COATES narrative: 64-year-old male past medical history significant for alcohol use disorder, COPD, DVT on Eliquis but noncompliant presenting for evaluation of ?alcohol withdrawal. ? Patient reports that his last drink was 3 days ago. He reports that he typically drinks 3 pt of sudden comfort daily. He reports he developed nausea and vomiting and therefore stopped drinking alcohol. He reports that he was recently diagnosed with pneumonia and never picked up any antibiotics. He denies any shortness of breath or increased cough. He reports a chronic cough that is dry and unchanged. He does have a history of COPD but is not on oxygen at baseline The patient reports that he feels ?shaking, nauseous and weak. ? He was seen here 2 weeks ago for acute alcohol intoxication and at that time had an x-ray of the ribs due to a fall. He reports continued pain to the left ribs but denies any falls after that ER visit Related Data Home Medications ?Medication ?Instructions ?Recorded ?Confirmed apixaban 5 mg tablet (Eliquis) 5 mg PO BID 08/29/22 folic acid 1 mg tablet 1 mg PO DAILY 06/08/2306/07 hydroxyzine pamoate 25 mg capsule 25 - 50 mg PO TID NV N Anxiety 06/08/23 06/08/23 sertraline 100 mg tablet 100 mg PO DAILY 06/08/2311/22 Previous Rx's ?Medication ?Instructions ?Recorded prednisone 10 mg tablet See Taper PO DIRECTED #20 tabs 06/09/23 thiamine mononitrate (vit B1) 100 100 mg PO DAILY #90 tabs 06/09/23 mg tablet azithromycin 250 mg tablet See Rx Instructions PO .COM PLEX #6 10/26/24 tabs prednisone 20 mg tablet 40 mg (2 x 20 mg) PO DAILY 5 days 10/26/24 #10 tabs Allergies Allergy/AdvReac Type Severity Reaction Status Date / Time Peanut Butter Allergy Facial Verified 01/04/25 14:59 Swelling raspberry Allergy Facial Verified 01/04/25 14:59 Swelling Review of Systems 2 Constitutional: Constitutional: Denies body ache(s), Denies chills, Reports fatigue, Denies fever(s), Denies headache(s), Reports lethargy, Reports malaise and Reports weakness Eyes: Eyes: Denies blurry vision ENT: Denies vertigo, Denies dizziness and Denies headache(s) Cardiovascular: Cardiovascular: Denies chest pain, Denies dyspnea and Denies dyspnea on exertion Respiratory: Respiratory: Denies change in phlegm color, Denies chest congestion, Reports cough, Denies pain on inspiration, Denies pain with cough, Denies dyspnea and Denies dyspnea on exertion Gastrointestinal: Gastrointestinal: Denies abdominal pain, Denies melena, Denies hematochezia, Denies diarrhea, Denies loose stools, Reports nausea and Reports vomiting Musculoskeletal: Musculoskeletal: Denies back pain Integumentary/Breasts: Skin/Breast: Denies rash Neurologic: Denies vertigo, Denies dizziness, Denies headache(s) and Reports weakness Psychiatric: Psychiatric: Denies anxiety Endocrine: Endocrine: Reports fatigue PMFSH Past Medical History Medical History Alcohol withdrawal Alcohol dependence Presence of IVC filter Acute and chronic respiratory failure with hypoxia COPD (chronic obstructive pulmonary disease) Alcohol use disorder, severe, dependence Tobacco abuse Subdural hematoma DVT (deep venous thrombosis) COPD (chronic obstructive pulmonary disease) Asthma Neuropathy Alcohol abuse Social History Social History Household Members: None Housing: House Do you presently have visiting nurse or other home services: No Alcohol intake: current Alcohol intake frequency: 3 or more drinks per day Alcohol type: hard liquor Comment: pt refuses high fall risk interventions Patient Tobacco Use Status: Current everyday Tobacco user Tobacco use type: Cigarette Cigarette Packs Per Day: 1 Cigarettes Per Day: 20.0 Smoked in Last 30 Days: Yes e-Cigarette/Vaping Use: Never Used Second Hand Smoke Exposure: No Use of substances other than those prescribed or required for medical reasons: Yes Substance Use Type: Marijuana Substance Use Frequency: Daily Advance Directives: Yes Advance Directives on File: Yes Advance Directives Date on File: 03/05/22 Do you have a plan to hurt others: No Plan service: No Current occupational status: disabled Physical Exam ED Vital Signs: Vital Signs - 24 hr 01/04/25 14:51 01/04/25 15:10 01/04/25 15:15 Temperature 97.9 F Pulse Rate 108 H Respiratory Rate 20 Blood Pressure 120/81 Pulse Oximetry 93 84 L 96 Oxygen Delivery Method Room Air Room Air Nasal Cannula Oxygen Flow Rate 2 01/04/25 16:11 01/04/25 18:29 01/04/25 20:23 Temperature 97.6 F 97.6 F 98.3 F Pulse Rate 95 80 86 Respiratory Rate 15 13 19 Blood Pressure 97/72 117/73 129/71 Pulse Oximetry 97 98 95 Oxygen Delivery Method Nasal Cannula Nasal Cannula Nasal Cannula Oxygen Flow Rate 2 2 2 01/04/25 21:30 01/05/25 00:00 Temperature 98.0 F Pulse Rate 88 82 Respiratory Rate 18 16 Blood Pressure 128/71 120/70 Pulse Oximetry 94 96 Oxygen Delivery Method Nasal Cannula Room Air Oxygen Flow Rate 2 BMI result Body Mass Index 20.7 Const General: comfortable, no acute distress, alert and awake Orientation/consciousness: patient oriented x3 HENMT Head: Yes normocephalic and Yes atraumatic Eyes Eyelids: Yes eyelids normal Conjunctivae: conjunctivae normal Sclerae: sclerae normal Corneas: corneas normal Pupils: Equal, round and reactive pupils present EOM: EOMs intact bilaterally Neck Neck: Yes full ROM Resp Effort & Inspection: normal respiratory effort, able to speak in complete sentences and not labored Cardio Rate: regular rate Rhythm: regular rhythm GI Inspection: No distended Palpation (GI): Soft to palpation, not firm, nontender, no guarding and not rigid Skin General skin exam: elasticity normal Neuro Other: No notable tremors or asterixis General: patient oriented x3 Cranial nerves: Yes CN's II-XII intact bilaterally, Yes Equal, round and reactive pupils present and Yes Bilaterally intact EOM present Cognition (Neuro): normal cognition Motor exam (neuro): 5/5 motor strength present throughout Extrem Other: Moving all extremities well without any obvious deformities Course Reevaluation(s) Reevaluation #1: Patient's workup largely unremarkable. He was noted to desat to 88% while sleeping. While sitting up and talking his oxygen saturation is 98%. However he does carry diagnosis of COPD. Partially diagnosed with sleep apnea but does appear to have evidence of sleep apnea. His chest x-ray was clear with no evidence of infectious process or volume overload. The patient is medically cleared for recovery consult. Time: 21:02 Reevaluation #2: The patient was seen by the recovery team and ultimately declines detox at this time. He is not in significant alcohol withdrawal. He would like to be discharged back home Time: 00:27 Medications Administered Discontinued Medications Generic Name Dose Route Start Last Admin Trade Name Frandy PRN Reason Stop Dose Admin Lactated Ringer's 1,000 mls @ 999 mls/hr 01/04/25 17:45 01/04/25 19:06 Lr IV 01/04/25 18:45 Infused .Q1H1M NOHEMI Infusion Thiamine HCl 500 mg/ Sodium 105 mls @ 210 mls/hr 01/04/25 17:39 01/04/25 18:35 Chloride IV 01/04/25 18:08 Infused ONCE ONE Infusion Folic Acid 1 mg/ Sodium 50.2 mls @ 100.4 mls/hr 01/04/25 18:30 01/04/25 20:35 Chloride IV 01/04/25 18:59 Infused ONCE ONE Infusion Magnesium Sulfate 2 gm in 50 mls @ 25 mls/hr 01/04/25 18:43 01/04/25 22:24 Magnesium Sulfate/H2o IV 01/04/25 20:42 Infused ONCE ONE Infusion Lorazepam 2 mg 01/04/25 17:39 01/04/25 18:06 Lorazepam 1 Mg Tablet PO 01/04/25 17:40 2 mg ONCE ONE Administration Ondansetron HCl 4 mg 01/04/25 17:39 01/04/25 18:06 Ondansetron Hcl 4 Mg/2 Ml Vial IVPUSH 01/04/25 17:40 4 mg ONCE ONE Administration Medical Decision Making Medical Decision Making MDM Narrative: 64-year-old male past medical history as above presents for evaluation of multiple complaints. He seems predominantly concerned with alcohol withdrawal. He does not seem to be in his significant alcohol withdrawal, he is not tachycardic, hypotensive. He reports nausea but is not actively vomiting. He does not have any objective tremors. He has no focal neurologic deficits but does complain of generalized weakness. Has a mild pancytopenia that is fairly consistent with his previous labs. He has no left shift, no infectious symptoms. Chemistries without any significant abnormalities including electrolytes. Chest x-ray was clear, the patient is not hypoxic and denies any shortness of breath or chest pain. His EKG does not show any prolonged QT. We will treat his symptoms with IV fluids including thiamine and folic acid. We will give him Zofran p.o. Ativan. Anticipate medical clearance and recovery consult Differential Diagnosis Differential Diagnoses: The differential diagnosis associated with the presentation includes Alcohol dependence Acute alcohol withdrawal Acute alcohol intoxication Weakness Metabolic derangement Admission/Observation Consideration of admission/observation: Escalation of care including admission/observation considered Lab Data MDM Lab Attestation statement: I reviewed the patient's lab results. As above 01/04/25 15:24 01/04/25 15:24 Labs: Lab Results 01/04/25 Range/Units 15:24 WBC 3.5 L (4.8-10.8) X10*3/uL RBC 4.58 L (4.60-5.80) X10*6/uL Hgb 13.9 L (14.0-18.0) g/dl Hct 40.7 L (42.0-52.0) % MCV 88.9 (80.0-98.0) fL MCH 30.3 (27.0-33.0) pg MCHC 34.2 (31.0-36.0) g/dl RDW 17.5 H (11.0-16.0) % Plt Count 90 L D (160-400) X10*3/uL MPV 10.8 (9.4-12.4) fL Immature Gran % (Auto) 0.3 (0.0-0.4) % Neut % (Auto) 63.8 (45-73) % Lymph % (Auto) 24.0 (20-40) % Valley % (Auto) 9.1 (2-11) % Eos % (Auto) 1.7 (0-4) % Baso % (Auto) 1.1 (0-2) % Lymph # (Auto) 0.8 L (1.2-4.9) X10*3/uL Valley # (Auto) 0.3 (0.1-1.2) X10*3/uL Eos # (Auto) 0.1 (0.0-0.4) X10*3/uL Baso # (Auto) 0.0 (0.0-0.2) X10*3/uL Abs Immat Gran (auto) 0.01 (0.00-0.03) X10*3/uL Absolute Neuts (auto) 2.2 (2.0-8.3) x10*3/uL Absolute Nucleated RBC 0.000 (0.0-0.012) X10*3/uL Nucleated RBC % (auto) 0.0 (0.0-0.2) /100WBC Sodium 139 (135-145) mmol/L Potassium 3.3 (3.3-5.1) mmol/L Chloride 97 (96-108) mmol/L Carbon Dioxide 26 (22-29) mmol/L Anion Gap 19 (12-20) BUN 10 (9-16) mg/dL Creatinine 0.72 (0.5-1.4) mg/dL Estim Creat Clear Calc 93.0 Estimated GFR > 60 Random Glucose 99 (60-115) mg/dL Calcium 8.3 L (8.4-10.2) mg/dL Magnesium 1.3 L* (1.6-2.6) mg/dL Troponin I High Sens 3.5 (<3.5-35.0) ng/L Ethyl Alcohol 182 mg/dL Independent Interpretation I performed an independent interpretation of an: EKG (Normal sinus rhythm with a rate 93 beats minute. Bifascicular block which was previously documented on December 18, 2024. No ST changes) and Plain X-Ray Interpretation: Agree with Radiology interpretation Radiology Impression Discussion of test interpretation with radiology: I have reviewed the radiologist's reading. Radiologist Impression: FINDINGS: Mildly elevated right hemidiaphragm, unchanged. The cardiac, hilar, and mediastinal contours are normal. The lungs are clear bilaterally. There is no pneumothorax or pleural effusion. There is no focal osseous or soft tissue abnormality. XR/XR chest 2V IMPRESSION: No active pulmonary disease. Electronically signed by: Jp Joseph MD 01/04/2025 04:04 [place] [facility] [place] Discharge Clinical Impression: Alcohol abuse Patient Disposition: Home, Self-Care Instructions: Abuse of Alcohol (ED) Additional Instructions: Alcohol use disorder You were seen in the Emergency Department today for treatment of alcohol use disorder.? You may have been given medications to help with your withdrawal symptoms.? Please do not drink alcohol with them. This is very dangerous and can cause respiratory depression or other adverse reactions depending on the medication. If you would like to cut down or stop your alcohol use please consider calling our outpatient Addiction Treatment office:? [facility] (M-F [id number]) [address] You have also been given a list of treatment providers in the area that can assist as well.? If you experience seizures, vomiting blood, black stools, falls, severe headache, chest pain, fevers, trouble breathing, hallucinations or any other concerns you need to call 911 or seek immediate care. Please stay hydrated. Prescriptions: No Action Eliquis 5 mg tablet 5 mg PO BID sertraline 100 mg tablet 100 mg PO DAILY folic acid 1 mg tablet 1 mg PO DAILY hydroxyzine pamoate 25 mg capsule 25 - 50 mg PO TID PRN (Reason: Anxiety) thiamine mononitrate (vit B1) 100 mg Tablet 100 mg PO DAILY Qty: 90 0RF prednisone 10 mg tablet See Taper PO DIRECTED Qty: 20 0RF Taper: Prednisone 40 mg daily for 2 Days and 0 Hour 30 mg daily for 2 Days and 0 Hour 20 mg daily for 2 Days and 0 Hour 10 mg daily for 2 Days and 0 Hour Rx Instructions: see taper instructions azithromycin 250 mg tablet See Rx Instructions .ROUTE .COMPLEX Qty: 6 0RF Rx Instructions: For 250 mg dose pack: take 500 mg today (day 1), then 250 mg for 4 days (days 2-5) prednisone 20 mg tablet 40 mg PO DAILY 5 Days Qty: 10 0RF Print Language: Latvian
[2025-01-04] MEDS: Lactated Ringers 1,000 ML 999 ML IV (18:05)
[2025-01-04 18:28] LABS: Magnesium 1.3 mg/dL (1.6-2.6)
--- OUTSIDE RECORDS SUMMARY | 2025-01-04 18:33 | XMS_ITS | Data Portability ---
Author Organization [facility], Main Office Address [address] [facility], [address] [place] [address] Care Team Providers Care Rent Collector Name Role Phone LAM BARAJAS - 2ND FLOOR OTHER DANIELA PEREZ Primary Care Provider [phone] Assessment No assessment recorded. Plan of Treatment [...] deep vein thrombosis of lower extremitie s 709744050 Active 2017 IVC FILTER IN 2017 and bilateral thrombolys is SHELBI STREETER [address] [facility], [address], [place], [address] [place] [address] 8 12:36:34 Alcohol withdrawal delirium 2417862 Active 2017 Viridiana rainey [facility] 8 10:43:30 Chronic obstructiv e pulmonary disease 71650505 Active 2017 Viridiana rainey [facility] 8 10:43:38 Aspiration pneumonia 373192175 Active 2017 Viridiana rainey [facility] 8 10:43:47 Urinary tract infectious disease 63982919 Active 2017 Viridiana rainey [facility] 8 10:44:01 Tobacco dependence syndrome 55962509 Active 2017 Viridiana rainey [facility] 8 10:44:11 Peripheral nerve disease 875811997 Active 2017 Viridiana Miller brigid, [facility] 8 10:44:19 Anemia 964381046 Active 2017 Viridiana rainey, [facility] 8 10:44:24 Thrombocyt openic disorder 200544333 Active [address] , [address], [place], [address], [facility] 8 12:35:04 Chronic hepatitis 96092839 Active [address], [address], [place], [address], [facility] 8 12:35:27 Alcohol dependence 92865556 Active 2017 Giovani Juarez MD [address] [facility], [address], [place], [address], [facility] 8 12:06:43 Left upper quadrant pain 471039144 Active 2017 SHELBI Daly [address] , [address], [place], [address], [facility] 8 15:19:12 Cellulitis of buttock 38104374 Active 2022 ELIZABETH JACKSON NP [address] [facility], [address], [place], [address], [facility] 3 13:40:37 Harmful pattern of use of alcohol 90855774 Active 2022 ELIZABETH JACKSON NP [address], [address], [place], [address], [facility] 3 13:41:13 Open wound of buttock 441621565 Active 2022 ELIZABETH JACKSON NP [address], [address], [place], [address], [facility] 3 13:43:26 Problem Notes None recorded. Medical Equipment None Reported. Allergies Allergen ID Allergen Name Allergen Category Reaction Reaction Severity Criticality Documentation Date Start Date Code Code System Note Provider Name and Address Organization Details Recorded Time 90347 peanut allergeni c extract food,medi cation Not available Not available Not available 10/15/2022 93789 8 RxNorm peanu t butte r, facia l tere JACKSON NP [address] [facility], [address], [place], [address], [facility] 3 13:39:42 53700 raspberry extract food,medi cation Not available Not available Not available 10/15/2022 38702 69 RxNorm facia l tere JACKSON NP [address] [facility], [address], [place], [address], [facility] 3 13:40:02 Vitals Date Recorded Heart rate Respiratory rate Body temperature Systolic And Diastolic Provider Name and Address Organization Details Last Updated DateTime 10/15/2022 73 /min 18 /min 98.3 [degF] 91/55 mm[Hg] ELIZABETH JACKSON NP [address] [facility], [address], [place], [address], [facility] 3 13:33:48 Date Recorded Body temperature Oxygen saturation Oxygen saturation in Arterial blood by Pulse oximetry Heart rate Systolic And Diastolic Provider Name and Address Organization Details Last Updated DateTime 3 98.3 [degF] 94 % 94 % 73 /min 91/55 mm[Hg] Cecilia Tucker MD [address] [facility], [address], [place], [address], [facility] 3 06:30:21 Date Recorded Body weight Heart rate Respiratory rate Body temperature Oxygen saturation Oxygen saturation in Arterial blood by Pulse oximetry Systolic And Diastolic Provider Name and Address Organization Details Last Updated DateTime 3 73839.7 2 g 73 /min 18 /min 98.3 [degF] 94 % 94 % 91/55 mm[Hg] Violette Newell NP [address] [facility], [address], [place], [address], [facility] 3 11:10:43 Date Recorded Body weight Heart rate Respiratory rate Body temperature Oxygen saturation Oxygen saturation in Arterial blood by Pulse oximetry Systolic And Diastolic Provider Name and Address Organization Details Last Updated DateTime 3 56635.7 2 g 73 /min 18 /min 98.3 [degF] 94 % 94 % 91/55 mm[Hg] Violette Newell NP [address] [facility], [address], [place], [address], [facility] [employer] [facility] 3 12:59:44 Date Recorded Body weight Heart rate Respiratory rate Body temperature Oxygen saturation Oxygen saturation in Arterial blood by Pulse oximetry Systolic And Diastolic Provider Name and Address Organization Details Last Updated DateTime 3 49295.7 2 g 73 /min 18 /min 98.3 [degF] 94 % 94 % 91/55 mm[Hg] Violette Newell NP [address] [facility], [facility] [address], [place], [address], [facility] [employer] [facility] 3 10:56:55 Social History Question Answer Notes LastModified by Organizat ion Details LastModified Time Tobacco Smoking Status Current Every Day Smoker Viridiana rainey, [facility] 05/19/2017 10:55:27 Do You Have An Advance Directive? Yes [email or web address] Information not available 10/15/2022 How Many Years Have You Consumed Alcohol? 44 Information not available 05/19/2017 What Is Your Code Status? Full Code Information not available 10/15/2022 Which Illicit Or Recreational Drugs Have You Used? Marijuana [email or web address] Information not available 10/15/2022 How Many Days In The Past Year Have You Had A Heavy Drinking Consumption (4+ Female, 5+ Male)? 365 Drinks 1 Pint Of [place] And 2 Nips/day, Longest Period Of Sobriety 6 Mos Information not available 05/19/2017 Do You Have A Medical Power Of Coloring Machine Operator? Yes Information not available 05/19/2017 What Was The Date Of Your Most Recent Tobacco Screening? 10/15/2022 [email or web address] Information not available 10/15/2022 How Much Tobacco Do You Smoke? 1 PPD Information not available 05/19/2017 How Many Years Have You Smoked Tobacco? 40 Information not available 05/19/2017 Sex: Unknown Functional Status Question Answer Note LastModified by Organizat ion Details LastModified Time Do you use any illicit or recreational drugs? Yes Information not available 10/15/2022 What is your level of alcohol consumption? Heavy Information not available 05/19/2017 Mental Status None recorded. Family History Nothing Reported Notes:N/C Medical History No medical history recorded. Immunizations Vaccine Type Date Status Note Provider Nam e and Address Organization Details Recorded Time COVID-19 vaccine, vector-nr, rS-Ad26, PF, 0.5 mL 2 completed [facility] 10/22/2022 16:48:27 Tdap 2 completed [facility] 10/22/2022 16:48:42 pneumococcal polysaccharide PPV23 1 completed [facility] 05/27/2023 13:19:59 influenza, unspecified formulation 3 completed [facility] 05/27/2023 13:21:04 influenza, unspecified formulation 4 completed [facility] 05/27/2023 13:21:19 SARS-COV-2 (COVID-19) vaccine, UNSPECIFIED 3 completed [facility] 05/27/2023 13:21:41 Past Encounters Encounter ID Performer Location Encounter Start Date Encounter Closed Date Diagnosis/Indication Diagnosis SNOMED-CT Code Diagnosis ICD10 Code Diagnosis IMO Codes Diagnosis Note [id number] [address] [place] [address] 05/19/2017 10:32:28 05/25/2017 14:07:44 Bilateral deep vein thrombosis of lower extremities 067778773 I82.493 See HPIs/p IVC filter Dec, s/p EKOS catheter thrombolys is 3/2Eliquis 10 mg BID until 05/22 then 5 mg BIDMonitor for increase in pain/edema PT/OT eval and treat Alcohol wi thdrawal delirium 5770191 F10.231 Hx of heavy alcohol use with DTs in hospitalRi speridone 0.25 mg TIDThiamin e 100 mg dailyFolic acid 1 mg dailyMonit or moodNEG consult prn Aspiration pneumonia 422 714278 J69.0 Augmentin to complete courseAdd probioticA spiration precaution sSLP eval and treat Urinary tr act infectious disease 58388905 N30.00 Complete antibiotic as aboveMonit or sxs Chronic ob structive pulmonary disease 34232173 J41.8 Duonebs prnSupplem ental O2 prnMonitor respirator y status Tobacco de pendence syndrome 68144733 F17.210 Nicotine patchEncou rage smoking cessation Peripheral nerve disease 553953546 G64 Secondary to ETOH abuseMonit or sxs Anemia 836753406 D64.89 Repeat and monitor CBC [id number] MD MARKUS Melchor [address] [place] [address] 05/24/2017 10:26:07 05/26/2017 12:52:00 Bilateral deep vein thrombosis of lower extremities 519901502 I82.493 see HPIEliquis 5 mg bidmonitor with restart of medication on dose decreasing from 10 mg bid Alcohol wi thdrawal delirium 1610283 F10.231 see HPIthiamin e 100 mg qdmonitor for sx Tinea cruris 698244303 B 35.6 nystatin powdermoni tor to resolution Peripheral nerve disease 396006730 G64 start neurontin 100 mg tidtitrate for effect Urinary tr act infectious disease 47704032 N10 complete abmonitor for sx Chronic ob structive pulmonary disease 80706579 J41.1 at baselineco ntin[place] [id number] Viridiana Miller, SHELBI JOYA [address] [place] [address] 06/01/2017 10:32:02 06/10/2017 14:19:14 Bilateral deep vein thrombosis of lower extremities 594372812 I82.493 see HPIEliquis 5 mg bidF/u with PCP Alcohol wi thdrawal delirium 6629316 F10.231 see HPIthiamin e 100 mg qdd/c risperidal Home services in place with social work and psych consults madePatien t motivated to remain sober Peripheral nerve disease 811926187 G64 Increase neurontin 200 mg tidf/u with PCP Urinary tr act infectious disease 76926487 N10 antibiotic course completeap pears resolved Chronic ob structive pulmonary disease 58675236 J41.1 at baselineco [place]tin[place] [id number] [address] 09/16/2017 12:30:46 09/28/2017 15:08:07 Chronic hepatitis 73630906 K70.10 PT/OT eval and treatfollo w LFTsencour age ETOH abstinence psych eval and treat for abstinence follow up with GI prn Thrombocyt openic disorder 702373887 D69.59 monitor labsPlts corrected currently from 70 to 203 Chronic ob structive pulmonary disease 43161677 J41.8 duoneb q 4 hrs prnmonitor respirator y status Peripheral nerve disease 395399300 G64 neurontin 300 mg q 8 hrswill change to 300 mg q 9 am and 2 pm and 600 mg q hsc/o foot pain increased at nightmonit or pain Bilateral deep vein thrombosis of lower extremities 538217725 I82.593 eliquis 2.5 mg bidIVC filter in placemonit or labs Alcohol wi thdrawal delirium 2048703 F10.231 folic acid 1 mg qdmultivit e qdthiamine qdmonitor for withdrawal ativan 0.5 mg q 4 hrs prn added Tobacco de pendence syndrome 76605723 F17.210 nicotine patch 21 mg/24 hr qdmonitor for withdrawal [id number] MD ASHLEY Melchor AT [address] [address] 09/18/2017 12:00:41 09/28/2017 15:44:02 Asthenia 71059277 R53.1 see HPIPT OT eval and treatmonit or lytes Chronic hepatitis 466169 07 K73.2 see HPIseconda ry to ETOHGI eval prn Alcohol dependence 00613 003 F10.288 extended discussion with patient concerning use of etoh and effect on health. when patient returned after SNF stay in 05/16 again began drinking 1 pint and 1 nip per daypatient states understand ing that continuing with prior drinking habits will result in Thrombocyt openic disorder 126145545 D69.59 repeat and monitor cbc Bilateral deep vein thrombosis of lower extremities 877568959 I82.493 see HPIEliquis 2.5 mg bidmonitor with restart of medication IVC filter in place Chronic ob structive pulmonary disease 89406129 J41.1 at baselinedu onebs in place [place] [id number] [address] [address] 09/20/2017 16:11:59 09/28/2017 15:48:42 Chronic hepatitis 64502804 K70.10 PT/OT eval and treatfollo w LFTs weekly and once he is outpt with pcpencoura ge ETOH abstinence follow up with GI prnwill get ortho BPs bid x 2 days Thrombocyt openic disorder 603836895 D69.59 monitor labs, improved Chronic ob structive pulmonary disease 92284570 J41.8 duoneb q 4 hrs prnmonitor respirator y statusenco urage pt to stop smoking Peripheral nerve disease 515325244 G64 neurontin 300 mg q 9 am and 2 pm and 600 mg q hsmonitor pain Bilateral deep vein thrombosis of lower extremities 963317905 I82.593 eliquis 2.5 mg bidIVC filter in placemonit or labs Alcohol wi thdrawal delirium 0259500 F10.231 folic acid 1 mg qdmultivit e qdthiamine qdativan 0.5 mg q 4 hrs prn Tobacco de pendence syndrome 23175136 F17.210 nicotine patch 21 mg/24 hr qd [id number] [address] AT [address] [address] 09/21/2017 15:09:20 09/28/2017 16:05:00 Alcohol dependence 49887730 F10.20 ok to dc home tomorrowst rongly encouraged abstinence /AA Chronic hepatitis 971976 07 K70.10 encourage ETOH abstinence follow up with GI prn and pcp Bilateral deep vein thrombosis of lower extremities 448682381 I82.593 eliquis 2.5 mg bidIVC filter in place Chronic ob structive pulmonary disease 26966683 J41.8 duoneb q 4 hrs prnencoura ge pt to stop smoking Left upper quadrant pain 222440510 R10.12 pt will f/u with PCP as out pt for further testing if needed [id number] [address] AT [address] [address] 10/02/2017 16:10:48 10/20/2017 12:10:03 Alcohol dependence 97279432 F10.20 see hpiPT OT for conditioni ng and mobilityst rongly encouraged abstinence Chronic ob structive pulmonary disease 28458465 J41.8 duoneb q 4 hrs prnencoura ge pt to stop smoking Anemia 117201730 D64.9 monitor cbc Peripheral nerve disease 241085338 G64 neurontin 300 mg q 9 am and 2 pm and 600 mg q hsmonitor pain Bilateral deep vein thrombosis of lower extremities 238986031 I82.593 resume eliquis 2.5 mg bidIVC filter in placedue to alcoholism he would not be a candidate for coumadin [id number] MD ASHLEY Melchor AT [address] [address] 10/05/2017 15:13:51 10/20/2017 13:22:05 Asthenia 74454339 R53.1 see HPImultifa ctorial PT OT eval and treatmonit or lytes Alcohol dependence 56055 003 F10.288 Repeat extended discussion with patient concerning use of etoh and effect on health. patient states understand ing that continuing with prior drinking habits will result in Chronic hepatitis 486567 07 K73.2 see HPIseconda ry to ETOHGI eval prn Bilateral deep vein thrombosis of lower extremities 635501990 I82.493 see HPIEliquis 2.5 mg bidmonitor with restart of medication IVC filter in place Peripheral nerve disease 160839540 G64 increase gabapentin to 300 mg tidmonitor for effect [id number] [address] 10/07/2017 14:48:18 10/20/2017 14:00:14 Alcohol dependence 50311886 F10.288 encouraged to abstain from ETOHfollow up with PCP Chronic hepatitis 984672 07 K73.2 secondary to ETOHfollow up with PCP Bilateral deep vein thrombosis of lower extremities 449054166 I82.493 Eliquis 2.5 mg bidspoke with him at length about needing to contact PCP and pharmacy to get prior authorizat ion form for eliquisIVC filter in placefollo w up with PCP Peripheral nerve disease 751554443 G64 gabapentin to 300 mg tidtylenol as neededfoll ow up with PCP [id number] ELIZABETH JACKSON NP [address] [address] 10/15/2022 13:30:52 10/20/2022 10:25:28 Cellulitis of buttock 89823919 L03.317 Continue levaquin 500 mg daily x 3 daysAdd probiotic bid x 7 daysStill with inflammati on/indurat ion around woundTrend sx., VS, labsCBC, BMP q wednesday Alcohol dependence 43326 003 F10.288 s/p phenobarb protocol in hosp., no sx. of withdrawal Encourage abstinence Open wound of buttock 26 9467318 S31.829A With associated abscess and cellulitis Debrided 10/08Finish abx. as aboveCurre nt tx. moist kerlix and DCD daily and prnRefer to [facility] [place] for eval and tx. - pt. concerned about transporta tion - if too expensive can refer to Wound team hereMonito r wound, VS, labs for change Chronic ob structive pulmonary disease 34426066 J41.8 Combivent respimat 1 inh qid prnAlbuter ol MDI q4 hr prn - requesting to keep at bedside and self administer Continues to smoke Tobacco de pendence syndrome 55857832 F17.210 Continues to smoke hereEnc. 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 for sobrietyth iamine 100 mg dailyfolic acid 1 mg dailyMVI dailywill monitor Open wound of buttock 26 2992807 S31.829A s/p I&Dantibio tics completedw ound care per surgery recommenda tionsfollo w up wound clinic Chronic ob structive pulmonary disease 44572652 J41.8 Combivent 18-103: 1 puff q6h prnalbuter ol HFA: 1 puff q4h prnwill monitor Asthenia 08349242 R53.1 PT/OTwill monitor and support s needed History of deep vein thrombosis 620686223 Z86.718 apixaban 5 mg bidwill monitor [id number] Violette Newell NP [facility] [address] [address] 10/22/2022 11:09:43 10/26/2022 10:58:25 Harmful pattern of use of alcohol 19432253 F10.10 social media strategist for 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 for sobrietyno tremor noted, anxious at baselineth iamine 100 mg dailyfolic acid 1 mg dailyMVI dailywill monitor Open wound of buttock 26 5039850 S31.829A s/p I&D on 10/08/22 and po antibiotic s completed for cellulitis wound care per surgery recommenda tionsfollo w up wound clinic and dressings dailymonit or cbc and labs weekly Chronic ob structive pulmonary disease 56193391 J41.8 Combivent 18-103: 1 puff q6h prnalbuter ol HFA: 1 puff q4h prnwill monitor Asthenia 23397889 R53.1 PT/OTwill monitor and support s needed History of deep vein thrombosis 020853600 Z86.718 apixaban 5 mg bids/p ivc filterwill monitor Alcohol dependence 79072 003 F10.288 s/p phenobarb protocol in hosp., no sx. of withdrawal Encourage abstinence Tobacco de pendence syndrome 64863810 F17.210 Continues to smoke hererefuse s nicotine patchEnc. abstinence [id number] Violette Newell NP [facility] [address] [address] 10/26/2022 12:59:02 10/28/2022 08:31:09 Open wound of buttock 902436374 S31.829A s/p I&D on 10/08/22IV and po antibiotic s completed for cellulitis wound care per surgery recommenda tionsfollo w up wound clinic and dressings dailymonit or cbc and labs weekly Harmful pa ttern of use of alcohol 68512181 F10.10 social media strategist for 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 for sobrietyno tremor noted, anxious at baselineth iamine 100 mg dailyfolic acid 1 mg dailyMVI dailywill monitor Chronic ob structive pulmonary disease 34599984 J41.8 Combivent 18-103: 1 puff q6h prnalbuter ol HFA: 1 puff q4h prnwill monitor Asthenia 10464166 R53.1 PT/OTwill monitor and support s needed History of deep vein thrombosis 690753060 Z86.718 apixaban 5 mg bids/p ivc filterwill monitor Alcohol dependence 27894 003 F10.288 s/p phenobarb protocol in hosp., no sx. of withdrawal Encourage abstinence Tobacco de pendence syndrome 99849238 F17.210 Continues to smoke here now on scheduled breaks with staffrefus es nicotine patchEnc. abstinence Intertrigo 34075754 L30. 4 nystatin topically powder bid and prn x 14 daysmonito r Neuropathy 390344065 G62 .[address] 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 cover wtih zetuvit plus silicone bordered dressing q 3 dayscont protein liquid or supplement s to add in wound healingmon itor outpt with pcp and vna Intertrigo 97519200 L30. 4 nystatin topically powder bid and prn until healedvna to assess for resolution monitor outpt Neuropathy 702206254 G62 .[address] De La Cruz this weekend2% gel diclofenac topically 2 gram to bilateral feet bidmonitor for relief outpt, pt/ ot to assess for safety, strengthen ing and balance Harmful pa ttern of use of alcohol 91989376 F10.10 social media strategist for 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 for sobrietyno tremor noted, anxious at baselineth iamine 100 mg dailyfolic acid 1 mg dailyMVI dailywill monitor outpt with pcp Chronic ob structive pulmonary disease 30584574 J41.8 Combivent 18-103: 1 puff q6h prnalbuter ol HFA: 1 puff q4h prnmonitor outpt with pcp Asthenia 23415176 R53.1 improved herewill monitor and support s needed outptmonit or outpt, pt/ ot to assess for safety, strengthen ing and balance, offloading pressure to wound, and safety conditions at home History of deep vein thrombosis 210225969 Z86.718 apixaban 5 mg bids/p ivc filterwill monitor outpt Alcohol dependence 94030 003 F10.288 s/p phenobarb protocol in hosp., no sx. of withdrawal Encourage abstinence outpt and services as needed Tobacco de pendence syndrome 98302585 F17.210 Continues to smoke here now on [...] Ruiz Member ID Guarantor Name 10/14/2022 1 [facility] (MEDICAID HMO) [id number] Edgardo Zavala [id number] Edgardo Zavala 10/26/2022 1 [facility] - DOS ON OR AFTER 2022 - MEDICARE ADVANTAGE [place] (MEDICARE REPLACEMENT/ADV ANTAGE - PPO) Edgardo Zavala [id number] Edgardo Zavala Notes Date Note Type Note Provider Name and Address Organization Details Recorded Time 10/15/2022 text/html Edgardo is seen today for initial intake. He is a 62 yo male admitted to [facility] 10/14/22 [place] [facility] [place] care and [place]hab after a brief hosp. related to a buttock wound and cellulitis. He presented [place] [facility] [place] with several days [...] covered with DCD. Needs follow up with [facility] [place], ? wound vac. Upon d/c abx. changed to levaquin x 3 more days.DVT - remained on eliquisTobacco use - nicoderm patchCOPD - stable PMH: ETOH abuse, anemia, BLE DVTs IVC filter 2016 and bilat. thrombolysis, chronic hepatitis, COPD, PVD, thrombocytopenia, tobacco use, UTIMOLST: full code ELIZABETH JACKSON, ARNOLD [address] [facility], [address], [place], [address], [facility] 10/15/2022 14:49:09 10/19/2022 text/html This 62 year old man was admitted to [facility] on 10/14/22for rehab and continued care. 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 He was having several days [...] - signed 10/15/22 Cecilia Tucker MD [address] [facility], [address], [place], [address], [facility] 10/19/2022 14:28:20 10/22/2022 text/html Patient is seen for an acute rounding visit today. 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 He was having several days [...] - signed 10/15/22 Violette Newell NP [address] [facility], [address], [place], [address], [facility] [employer] 10/22/2022 11:32:05 10/26/2022 text/html Patient is seen [...] 62 year old man was admitted to [facility] on 10/14/22for rehab and continued care after presenting to the ER at [facility] on 10/07/22. He was having several days [...] - signed 10/15/22 Violette Newell NP [address] [facility], [address], [place], [address], [place] - [facility] 10/26/2022 13:39:46 10/27/2022 text/html Patient is seen for a discharge summary visit today. Edgardo is a 62 year old man was admitted to [facility] on 10/14/22for rehab and continued care after presenting to the ER at [facility] on 10/07/22. He was having several days [...] 3 days now according to the wound [employer]. His groin is improving with the nystatin [...] - signed 10/15/22 Violette Newell NP [address] [facility], [address], [place], [address], [facility] - [facility] 10/28/2022 10:11:07
--- OUTSIDE RECORDS SUMMARY | 2025-01-04 18:34 | XMS_ITS | Clinical Summary ---
Author Organization [facility] Address [address] [place] [address] Phone Care Team Providers Care Manager Facility Name Role Phone Cristhian Delgado DO Primary Care Provider [phone] Allergies Active Allergy Reactions Criticality Noted Date Comments Pregabalin 05/30/2024 Peanut 03/15/2024 Raspberry 03/15/2024 Medications Eliquis 5 mg tablet Take 1 tablet (5 mg total) by mouth 2 (two) times a day. Active busPIRone (BUSPAR) 7.5 mg tablet Take [...] Active mirtazapine (REMERON) 15 mg tablet Take 1 tablet (15 mg total) by mouth at bedtime. 03/10/19 25 Active Cerovite Senior tablet Take 1 tablet by mouth 1 (one) time each day. for 30 days 01/19/20 24 Active prazosin (MINIPRESS) 1 mg capsule Take 1 capsule (1 mg total) by mouth at bedtime. at bedtime 03/08/19 25 Active triamcinolone (KENALOG) 0.1 % cream Apply 1 Application topically 2 (two) times a day. 02/21/20 Active naltrexone (DEPADE) 50 mg tablet Take 1 tablet (50 mg total) by mouth 1 (one) time each day. 12/15/19 Active EPINEPHrine (EPIPEN) 0.3 mg/0.3 mL injection INJECT 1 PEN INJECTOR INTRAMUSCULARLY NEEDED FOR SEVERE ALLERGIC REACTION Active Trelegy Ellipta 200-62.5-25 mcg inhaler 05/30/19 Active ipratropium/al buterol sulfate (COMBIVENT RESPIMAT INHL) PRN, Refills 0, Maintenance, 01/24/20 15:39:00 EST 01/24/20 Active naloxone (NARCAN) 4 mg/0.1 mL nasal spray ADMINISTER 1 SPRAY INTO ONE NOSTRIL NEEDED CALL 911. REPEAT IN 2-3 MIN IF NO/MINIMAL RESPONSE 09/09/19 Active albuterol HFA (PROAIR HFA ; PROVENTIL HFA ; VENTOLIN HFA) 90 mcg/actuation inhaler Inhale 2 puffs by mouth every 4 (four) hours if needed. Active gabapentin (NEURONTIN) 800 mg tablet Take 1 tablet (800 mg total) by mouth 3 (three) times a day. 11/28/19 Active sertraline (ZOLOFT) 100 mg tablet Take 2 tablets (200 mg total) by mouth at bedtime. 11/28/19 Active budesonide-for moteroL (SYMBICORT) 160-4.5 mcg/actuation inhaler Inhale 2 puffs by mouth 2 (two) times a day. 02/13/20 Discontinu ed(Discont inued by another clinician) acamprosate (CAMPRAL) 333 mg EC tablet Take 2 tablets (666 mg total) by mouth 3 (three) times a day. 12/28/19 Discontinu ed(Discont inued by another clinician) azithromycin (ZITHROMAX) 250 mg tablet 05/20/19 25 Discontinu ed(Discont inued by another clinician) clotrimazole-b etamethasone (LOTRISONE) 1-0.05 % cream PLEASE SEE ATTACHED FOR DETAILED DIRECTIONS 11/16/19 Discontinu ed(Discont inued by another clinician) ketorolac (ACULAR) 0.5 % ophthalmic solution INSTILL 1 DROP IN OPERATIVE EYE 3 TIMES A DAY. START 2 DAYS PRIOR TO SURGERY. CONTINUE DIRECTED. 01/15/20 025 Discontinu ed(Discont inued by another clinician) predniSONE (DELTASONE) 10 mg tablet PLEASE SEE ATTACHED FOR DETAILED DIRECTIONS 04/19/19 025 Discontinu ed(Discont inued by another clinician) sertraline (ZOLOFT) 50 mg tablet Take 4 tablets (200 mg total) by mouth at bedtime. 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) Acute embolism and thrombosis of other specified veins 12/12/2022 Alcohol abuse with withdrawa l, uncomplicated ([facility] V24, [facility] V28) 12/12/2022 Chronic obstructive pulmonar y disease with (acute) exacerbation ([facility] V24, [facility] V28) 12/12/2022 Resolved Problems Problem Noted Date Diagnosed Date Resolved Date Acute hypoxemic respiratory failure ([facility] V24, [facility] V28) 03/17/2024 03/18/2024 Encounters Date Type Department Care Team Description 12/20/2024 5:55 PM EDT - 12/21/2024 2:58 PM EDT Hospital Encounter [facility] [address] [place] [id number] Rai Gonzalez MD Goebel, Mathew, MD Jones, Christopher, MD Rasul, Yar M, MD Mohani, Priya, MD Hypoxia (Primary Dx); ETOH abuse; Chest pain, unspecified type; Viral pneumonia; Acute hypoxic respiratory failure ([facility] V24, [facility] V28) Discharge Disposition: Left Against Medical Advice from Last 3 Months Surgical History Surgery Date Site/Laterality Comments IVC FILTER Medical History Medical History Date Comments COPD (chronic obstructive pulmonary disease) ([facility] S/HCC V24, [facility] V28) Neuropathy Social History Tobacco Use Types Packs/Day Years Used Date Smoking Tobacco: Every Day Cigarettes Smokeless Tobacco: Current Tobacco Cessation:Ready to Q uit: Not Asked; Counseling Given: Not Answered Comments:1ppd Alcohol Use Standard Drinks/Week Comments Yes 0 (1 standard drink = 0.6 oz pure alcohol) 4-5 pints [employer] every day Interpersonal Safety Answer Date Record ed Physical Abuse Unrecognized value 12/21/2024 Verbal Abuse Unrecognized value 12/21/2024 Sex and Gender Information Value Date Recorded Sex Assigned at Not on file Legal Sex Male 7:34 AM EST Gender Identity Not on file Sexual Orientation Not on file Obstetrics History Last Filed Vital Signs Vital Sign Reading Time Taken Comments Blood Pressure 109/73 12/21/2024 10:53 AM EDT Pulse 87 12/21/2024 10:53 AM EDT Temperature 35.6 C (96.1 F) 12/21/2024 10:53 AM EDT Respiratory Rate 16 12/21/2024 10:53 AM EDT Oxygen Saturation 90% 12/21/2024 10:53 AM EDT Inhaled Oxygen Concentration - - Weight 63.5 kg (140 lb) 12/20/2024 6:32 PM EDT Height 175.3 cm (5' 9 ) 12/20/2024 6:32 PM EDT Body Mass Index 20.67 12/20/2024 6:32 PM EDT Plan of Treatment Health Maintenance Due Date Last Done Comments Hepatitis A Vaccines (1 of 2 - Risk 2-dose series) 07/04/1979 Hepatitis B Vaccines (1 of 3 - Risk 3-dose series) 2020 Pneumococcal Vaccine: 50+ Years (2 of 2 - PCV) 07/17/2021 07/17/2020, 09/18/2017 Cholesterol Screening (Lipid Panel) 02/01/2022 HIV Screening 02/01/2022 Hepatitis C Screening 02/01/2022 Medicare Annual Wellness Visit 02/01/2022 Social Influencers of Health Screening 02/01/2022 Depression Screening 03/01/2024 COVID-19 Vaccine ( season) 2024 01/28/2023, 03/25/2021 Influenza Vaccine (#1) 2024 , 03/21/2023, 01/28/2023, Additional history exists Colorectal Cancer Screening: Stool Based Tests (FOBT/FIT) 12/21/2025 12/21/2024 DTaP,Tdap,and Td Vaccines (3 - Td or Tdap) 08/04/2031 08/03/2021, 08/03/2021 RSV Immunization Adult Patients Completed 09/26/2024 Zoster Vaccines Completed 09/26/2024, 01/24/2024 HIB Vaccines Aged Out No longer eligi [...] on patient's age to complete this topic Procedures Procedure Name Priority Date/Time Associated Diagnosis Comments ECG ANNOTATED 12/22/2024 OCCULT BLOOD STOOL, GUAIAC Routine 12/21/2024 11:46 AM EDT DRUG ABUSE SCREEN 8A PANEL, URINE STAT 12/21/2024 11:46 AM EDT ECG 12-LEAD Routine 12/21/2024 6:33 AM EDT CBC WITH AUTO DIFFERENTIAL Routine 12/21/2024 5:09 AM EDT CBC AND DIFFERENTIAL Routine 12/21/2024 5:09 AM EDT BASIC METABOLIC PANEL Routine 12/21/2024 5:09 AM EDT RESPIRATORY VIRUS PANEL MOLECULAR STUDY Routine 12/21/2024 1:59 AM EDT [id number], RSV, FLU A AND B QUALITATIVE RT-PCR, INTERNAL LAB STAT 12/20/2024 10:53 PM EDT B-TYPE NATRIURETIC PEPTIDE STAT 12/20/2024 9:[address] ANGIO CHEST WO AND/OR W CONTRAST STAT 12/20/2024 9:19 PM EDT Hypoxia TROPONIN I HIGH SENSITIVITY STAT 12/20/2024 8:56 PM EDT XR CHEST 2 VIEWS STAT 12/20/2024 8:46 PM EDT ECG 12-LEAD STAT 12/20/2024 8:[address] HEAD WO CONTRAST STAT 12/20/2024 7 :54 PM EDT COMPREHENSIVE METABOLIC PANEL STAT 12/20/2024 7:52 PM EDT ETHANOL STAT 12/20/2024 7:52 PM EDT CBC WITH AUTO DIFFERENTIAL STAT 12/20/2024 7:52 PM EDT PROTHROMBIN TIME WITH INR STAT 12/20/2024 7:52 PM EDT ACTIVATED PARTIAL THROMBOPLASTIN TIME STAT 12/20/2024 7:52 PM EDT TROPONIN I HIGH SENSITIVITY STAT 12/20/2024 7:52 PM EDT CBC AND DIFFERENTIAL STAT 12/20/2024 7:52 PM EDT from Last 3 Months Results * ECG-Annotated (12/22/2024) us Provider Onbase MD ECG ORDERABLES Final Result * (ABNORMAL) Occult blood stool, guaiac (12/21/2024 11:46 AM EDT) Occult Blood, Stool #1 Positive( A) Negative 12/21/2024 12:28 PM EDT [facility] Stool Rectum structure / Unknown Non-blood Collection / Unknown 12/21/2024 11:46 AM EDT 12/21/2024 11:52 AM EDT us Karolyn RABAGO LAB BODY FLUIDS AND STOOLS OR DERABLES Final Result [facility] [address] [place] [address], * (ABNORMAL) Drug abuse screen 8a panel, urine (12/21/2024 11:46 AM EDT) Pathologist [facility] Amphetamine Screen, Ur Negative Negative LAB CHEMISTRY METHOD 12:28 PM T [facility] Comment:Certain OTC medicati ons containing ephedrine, phenylephrine, pseudoephedrine and phenylpropanolamine can cause false positive results. Barbiturate Screen, Ur Positive(A ) Negative LAB CHEMISTRY METHOD 12:28 PM [facility] Benzodiazepine Screen, Ur Negative Negative LAB CHEMISTRY METHOD 12:28 PM EDT [facility] Cocaine Screen, Ur Negative Negative LAB CHEMISTRY METHOD 12:28 PM [facility] Opiate Screen, Ur Negative Negative LAB CHEMISTRY METHOD 12:28 PM [facility] Cannabinoid (THC) Screen, Ur Negative Negative LAB CHEMISTRY METHOD 12:28 PM [facility] Comment:Specimens from patie nts taking pantoprazole sodium (Protonix) have been shown to produce false positive results. Oxycodone Screen, Ur Negative Negative LAB CHEMISTRY METHOD 12:28 PM EDT [facility] Fentanyl, Ur Negative Negative LAB CHEMISTRY METHOD 12:28 PM EDT [facility] Urine Urine specimen obtained by clean catch procedure / Unknown Non-blood Collection / Unknown 12/21/2024 11:46 AM EDT 12/21/2024 11:52 AM EDT Narrative [facility] - 12/21/2024 12:28 PM EDT Assay cutoffs: Amphetamines 1000 ng/mL Barbiturates 200 ng/mL Benzodiazepines 200 ng/mL Cocaine 300 ng/mL Fentanyl 1 ng/mL Opiates 300 ng/mL Oxycodone 100 ng/mL THC 50 ng/mL Semi-quantitative assay for screening purposes only. Unconfirmed screening result should not be used for non-medical purposes. *ALTERNATE METHOD CONFIRMATION DONE UPON REQUEST ONLY* Rai Gonzalez MD LAB URINE ORDERABLES Final Resul t [facility] [address] [place] [address], [place] [phone] * ECG 12 lead (12/21/2024 6:33 AM EDT) Only the most recent of2 resultswithin the time period is included. Ventricular Rate ECG 77 BPM GEM[facility] Atrial Rate 77 BPM GEM[facility] P-R Interval 116 ms GEMUSE QRS Duration 130 ms GEMUSE Q-T Interval 416 ms GEMUSE QTc 470 ms GEMUSE P Wave [place] 35 degrees GEMUSE R [place] -68 degrees GEMUSE T [place] 31 degrees GEMUSE ECG Interpretation Normal sinus rhythm Right bundle branch block Left anterior fascicular block Bifascicular block Abnormal ECG When compared with ECG of 20-DEC-2024 20:03, (unconfirmed) T wave inversion no longer evident in Anterior leads Confirmed by LINDSEY MARCANO ([id number]) on 12/21/2024 4:14:46 PM GEMUSE 12/21/2024 6:33 AM EDT 12/21/2024 4:14 PM EDT us Karolyn RABAGO ECG ORDERABLES Final Result [facility] * (ABNORMAL) CBC auto differential (12/21/2024 5:09 AM EDT) Only the most recent of2 resultswithin the time period is included. WBC 5.7 4.8 - 10.8 K/mcL LAB HEMETOLOGY METHOD 12/21/2024 6:31 AM [facility] RBC 4.20(L) 4.50 - 5.50 M/mcL LAB HEMETOLOGY METHOD 12/21/2024 6:31 AM [facility] Hemoglobin 12.2(L) 13.5 - 17.5 g/dL LAB HEMETOLOGY METHOD 12/21/2024 6:31 AM [facility] Hematocrit 37.6(L) 42.0 - 54.0 % LAB HEMETOLOGY METHOD 12/21/2024 6:31 AM [facility] MCV 90.2 79.0 - 98.0 FL LAB HEMETOLOGY METHOD 12/21/2024 6:31 AM [facility] MCH 29.3 27.0 - 32.0 pcg LAB HEMETOLOGY METHOD 12/21/2024 6:31 AM [facility] MCHC 32.4 32.0 - 37.0 g/dL LAB HEMETOLOGY METHOD 12/21/2024 6:31 AM [facility] RDW 17.1(H) 11.0 - 15.0 % LAB HEMETOLOGY METHOD 12/21/2024 6:31 AM [facility] Platelets 142 130 - 400 K/mcL LAB HEMETOLOGY METHOD 12/21/2024 6:31 AM [facility] MPV 10.5 7.0 - 11.0 FL LAB HEMETOLOGY METHOD 12/21/2024 6:31 AM [facility] NRBC 0.0 <1.0 % LAB HEMETOLOGY METHOD 12/21/2024 6:31 AM [facility] NRBC Absolute 0.00 <0.10 K/mcL LAB HEMETOLOGY METHOD 12/21/2024 6:31 AM [facility] Neutrophils Relative 65.9 % LAB HEMETOLOGY METHOD 12/21/2024 6:31 AM [facility] Lymphocytes Relative 20.2 % LAB HEMETOLOGY METHOD 12/21/2024 6:31 AM [facility] Monocytes Relative 10.9 % LAB HEMETOLOGY METHOD 12/21/2024 6:31 AM [facility] Eosinophils Relative 2.1 % LAB HEMETOLOGY METHOD 12/21/2024 6:31 AM [facility] Basophils Relative 0.5 % LAB HEMETOLOGY METHOD 12/21/2024 6:31 AM [facility] Immature Granulocytes Relative 0.4 % LAB HEMETOLOGY METHOD 12/21/2024 6:31 AM [facility] Neutrophils Absolute 3.76 1.50 - 7.00 K/mcL LAB HEMETOLOGY METHOD 12/21/2024 6:31 AM [facility] Lymphocytes Absolute 1.15 1.00 - 5.00 K/mcL LAB HEMETOLOGY METHOD 12/21/2024 6:31 AM [facility] Monocytes Absolute 0.62 0.20 - 1.00 K/mcL LAB HEMETOLOGY METHOD 12/21/2024 6:31 AM [facility] Eosinophils Absolute 0.12 0.00 - 0.50 K/mcL LAB HEMETOLOGY METHOD 12/21/2024 6:31 AM [facility] Basophils Absolute 0.03 0.00 - 0.20 K/[facility] LAB HEMETOLOGY METHOD 12/21/2024 6:31 AM T [facility] Immature Granulocytes Absolute 0.02 0.00 - 0.03 K/[facility] LAB HEMETOLOGY METHOD 12/21/2024 6:31 AM T [facility] Blood Venous blood specimen / Unknown Venipuncture / Unknown 12/21/2024 5:09 AM EDT 12/21/2024 5:59 AM EDT us Boom Nagel MD LAB BLOOD ORDERABLES Final Result [facility] [address] [place] [address], [place] [phone] * Basic metabolic panel (12/21/2024 5:09 AM EDT) Sodium 135 133 - 145 mmol/L LAB CHEMISTRY METHOD 12/21/2024 7:41 AM [facility] Potassium 4.0 3.5 - 5.5 mmol/L LAB CHEMISTRY METHOD 12/21/2024 7:41 AM [facility] Chloride 98 96 - 110 mmol/L LAB CHEMISTRY METHOD 12/21/2024 7:41 AM [facility] CO2 29 21 - 32 mmol/L LAB CHEMISTRY METHOD 12/21/2024 7:41 AM [facility] Anion Gap 8 3 - 11 LAB CHEMISTRY METHOD 12/21/2024 7:41 AM [facility] Glucose 94 70 - 100 mg/dL LAB CHEMISTRY METHOD 12/21/2024 7:41 AM [facility] BUN 15 5 - 25 mg/dL LAB CHEMISTRY METHOD 12/21/2024 7:41 AM [facility] Creatinine 0.72 0.70 - 1.30 mg/dL LAB CHEMISTRY METHOD 12/21/2024 7:41 AM EDT [facility] eGFR 102 >=60 mL/min/1. 73m2 LAB CHEMISTRY METHOD 12/21/2024 7:41 AM EDT [facility] Comment:Calculation based on the Chronic Kidney Disease Epidemiology Collaboration (CKD-EPI) equation refit without adjustment for race. BUN/Creatinine Ratio 20.8 LAB CHEMISTRY METHOD 12/21/2024 7:41 AM EDT [facility] Calcium 8.6 8.5 - 10.5 mg/dL LAB CHEMISTRY METHOD 12/21/2024 7:41 AM EDT [facility] Blood Venous blood specimen / Unknown Venipuncture / Unknown 12/21/2024 5:09 AM EDT 12/21/2024 5:59 AM EDT us Boom Nagel MD LAB BLOOD ORDERABLES Final Result [facility] [address] [place] [address], * Respiratory virus panel molecular study (12/21/2024 1:59 AM EDT) Adenovirus Detection by PCR Not Detected Not Detected LAB MICROBIOLOGY METHOD 12/21/2024 2:56 AM EDT [facility] Influenza A PCR Not Detected Not Detected LAB MICROBIOLOGY METHOD 12/21/2024 2:56 AM EDT [facility] Influenza B PCR Not Detected Not Detected LAB MICROBIOLOGY METHOD 12/21/2024 2:56 AM EDT [facility] Coronavirus 229E Not Detected Not Detected LAB MICROBIOLOGY METHOD 12/21/2024 2:56 AM EDT [facility] Coronavirus HKU1 Not Detected Not Detected LAB MICROBIOLOGY METHOD 12/21/2024 2:56 AM EDT [facility] Coronavirus OC43 Not Detected Not Detected LAB MICROBIOLOGY METHOD 12/21/2024 2:56 AM EDT [facility] Coronavirus NL63 Not Detected Not Detected LAB MICROBIOLOGY METHOD 12/21/2024 2:56 AM EDT [facility] Parainfluenza Virus 1 Not Detected Not Detected LAB MICROBIOLOGY METHOD 12/21/2024 2:56 AM EDT [facility] Parainfluenza Virus 2 Not Detected Not Detected LAB MICROBIOLOGY METHOD 12/21/2024 2:56 AM EDT [facility] Parainfluenza Virus 3 Not Detected Not Detected LAB MICROBIOLOGY METHOD 12/21/2024 2:56 AM EDT [facility] Parainfluenza Virus 4 Not Detected Not Detected LAB MICROBIOLOGY METHOD 12/21/2024 2:56 AM EDT [facility] RSV PCR Not Detected Not Detected LAB MICROBIOLOGY METHOD 12/21/2024 2:56 AM EDT [facility] Human Metapneumovirus A and B Not Detected Not Detected LAB MICROBIOLOGY METHOD 12/21/2024 2:56 AM EDT [facility] Rhinovirus/Entero virus Not Detected Not Detected LAB MICROBIOLOGY METHOD 12/21/2024 2:56 AM EDT [facility] Bordetella pertussis Not Detected Not Detected LAB MICROBIOLOGY METHOD 12/21/2024 2:56 AM EDT [facility] Bordetella parapertussis Not Detected Not Detected LAB MICROBIOLOGY METHOD 12/21/2024 2:56 AM EDT [facility] Mycoplasma pneumo by PCR Not Detected Not Detected LAB MICROBIOLOGY METHOD 12/21/2024 2:56 AM EDT [facility] Chlamydia pneumoniae Not Detected Not Detected LAB MICROBIOLOGY METHOD 12/21/2024 2:56 AM EDT [facility] SARS COV-2 Not Detected Not Detected LAB MICROBIOLOGY METHOD 12/21/2024 2:56 AM EDT [facility] Swab Structure of right anterior naris / Unknown Non-blood Collection / Unknown 12/21/2024 1:59 AM EDT 12/21/2024 2:01 AM EDT Narrative [facility] - 12/21/2024 2:56 AM EDT Testing was performed using the [employer] Respiratory Pathogen PCR Assay. All results must be correlated with the clinical findings. Results should not be used as the sole basis for diagnosis. False Negative results may occur from the presence of sequence variants in the region targeted by the assay or the presence of inhibitors. Results may be affected by concurrent antiviral/antimicrobial therapy or levels of organisms that are below the limit of detection. us Karolyn RABAGO LAB MICROBIOLOGY - GENERAL OR DERABLES Final Result Performing Organization Address City/[facility]/ZIP Co de Phone Number [facility] [address] [place] [address], [place] [phone] * [id number], RSV, Influenza A and B qualitative RT-PCR (12/20/2024 10:53 PM EDT) Influenza A PCR Not Detected Not Detected LAB MICROBIOLOGY METHOD 12/21/2024 12:20 AM EDT [facility] Influenza B PCR Not Detected Not Detected LAB MICROBIOLOGY METHOD 12/21/2024 12:20 AM EDT [facility] RSV PCR Not Detected Not Detected LAB MICROBIOLOGY METHOD 12/21/2024 12:20 AM EDT [facility] SARS COV-2 Not Detected Not Detected LAB MICROBIOLOGY METHOD 12/21/2024 12:20 AM EDT [facility] Swab Both anterior nares / Unknown Non-blood Collection / Unknown 12/20/2024 10:53 PM EDT 12/20/2024 11:34 PM EDT Mario Quach MD LAB MICROBIOLOGY - GENERAL ORDE RABMARILU Final Result Performing Organization Address City/[facility]/ZIP Co de Phone Number [facility] [address] [place] [address], [place] [phone] * B-Type Natriuretic Peptide (BNP) (12/20/2024 9:27 PM EDT) BNP 20 <=100 pcg/mL LAB CHEMISTRY METHOD 12/20/2024 10:12 PM EDT [facility] Blood Venous blood specimen / Unknown Venipuncture / Unknown 12/20/2024 9:27 PM EDT 12/20/2024 9:38 PM EDT us Rai Gonzalez MD LAB BLOOD ORDERABLES Final Resul t [facility] ([facility]) [facility] [address] [place] [address], [place] [phone] * CT Angio Chest wo and/or w Contrast (12/20/2024 9:19 PM EDT) Anatomical Region Laterality Modality Body Computed Tomogra phy 12/20/2024 10:5 3 PM EDT Addenda Addendum by Temo Llanos MD on 12/20/2024 11:00 PM EDT ADDENDUM: This report was discussed with Dr Vipul Myrick on Dec 20, 2024 22:53:00 EDT. This document has been electronically signed by: Tonya Walker on 12/20/2024 23:00:14 Impressions 12/20/2024 10:53 PM EDT 1. Patchy left lung ground-glass airspace infiltrates in the lower lobe and the lingula as well as patchy subtle opacities in the right lower lobe likely related to an infectious process. 2. There is a linear radiopaque foreign body in the left main pulmonary artery. This may represent a wire from prior procedure. Clinical correlation is suggested. 3. There are linear filling defects in the left main and lower lobe as well as the right lower lobe segmental branches suggestive of chronic nonocclusive PE. 4. Fatty infiltration of the liver. 5. Gallstones. This document has been electronically signed by: Temo Llanos MD on 12/20/2024 22:53:13 Narrative 12/20/2024 10:53 PM EDT INDICATION: hypoxia, hx nabila DVTs CT angiography chest with contrast. 3D Postprocessing. Comparison: CT/UT/SR - CHEST ANGIOGRAPHY CT - 03/21/2023 08:08 AM EST Findings: The heart size is normal. RV/LV ratio is normal. The thoracic aorta is normal caliber. There is a linear radiopaque foreign body in the left main pulmonary artery. This may represent a wire from prior procedure. Clinical correlation is suggested. The visualized thyroid and mediastinum are unremarkable. Patchy left lung ground-glass airspace infiltrates in the lower lobe and the lingula as well as patchy subtle opacities in the right lower lobe likely related to an infectious process. There are linear filling defects in the left main and lower lobe as well as the right lower lobe segmental branches suggestive of chronic nonocclusive PE. Fatty infiltration of the liver. Gallstones. The bones are intact. Procedure Note Temo Llanos MD - 12/20/2024 INDICATION: hypoxia, hx nabila DVTs CT angiography chest with contrast. 3D Postprocessing. Comparison: CT/UT/SR - CHEST ANGIOGRAPHY CT - 03/21/2023 08:08 AM EST Findings: The heart size is normal. RV/LV ratio is normal. The thoracic aorta is normal caliber. There is a linear radiopaque foreign body in the left main pulmonary artery. This may represent a wire from prior procedure. Clinical correlation is suggested. The visualized thyroid and mediastinum are unremarkable. Patchy left lung ground-glass airspace infiltrates in the lower lobe and the lingula as well as patchy subtle opacities in the right lower lobe likely related to an infectious process. There are linear filling defects in the left main and lower lobe as well as the right lower lobe segmental branches suggestive of chronic nonocclusive PE. Fatty infiltration of the liver. Gallstones. The bones are intact. IMPRESSION: 1. Patchy left lung ground-glass airspace infiltrates in the lower lobe and the lingula as well as patchy subtle opacities in the right lowerlobe likely related to an infectious process. 2. There is a linear radiopaque foreign body in the left main pulmonary artery. This may represent a wire from prior procedure. Clinical correlation is suggested. 3. There are linear filling defects in the left main and lower lobe as well as the right lower lobe segmental branches suggestive of chronic nonocclusive PE. 4. Fatty infiltration of the liver. 5. Gallstones. This document has been electronically signed by: Temo Llanos MD on 12/20/2024 22:53:13 us Rai Gonzalez MD IMG CT PROCEDURES Edited Result - Final * Troponin I high sensitivity (12/20/2024 8:56 PM EDT) Only the most recent of2 resultswithin the time period is included. High Sensitivity Troponin I 4 <=79 ng/L LAB CHEMISTRY METHOD 12/20/2024 9:33 PM EDT [facility] Blood Venous blood specimen / Unknown Venipuncture / Unknown 12/20/2024 8:56 PM EDT 12/20/2024 9:03 PM EDT Narrative [facility] - 12/20/2024 9:33 PM EDT High levels of biotin in samples may falsely decrease hsTroponin values. Use caution when interpreting hsTroponin results in patients taking biotin who exhibit renal impairment (eGFR <60) or in patients taking more than 20 mg/day of biotin. us Rai Gonzalez MD LAB BLOOD ORDERABLES Final Resul t [facility] [address] [place] [address], * XR Chest 2 Views (12/20/2024 8:46 PM EDT) Anatomical Region Laterality Modality Body Radiographic Mirella ging 12/20/2024 10:4 8 PM EDT Impressions 12/20/2024 10:48 PM EDT Patchy bilateral infiltrates. This document has been electronically signed by: Temo Llanos MD on 12/20/2024 22:48:02 Narrative 12/20/2024 10:48 PM EDT INDICATION: chest pain 2 view chest x-ray Comparison: DX/UT/SR - XR CHEST 2 VW - 03/17/24 14:46 EST Findings: No consolidation or effusion. Normal size heart. No acute fracture. Patchy bilateral infiltrates. Procedure Note Temo Llanos MD - 12/20/2024 INDICATION: chest pain 2 view chest x-ray Comparison: DX/UT/SR - XR CHEST 2 VW - 03/17/24 14:46 EST Findings: No consolidation or effusion. Normal size heart. No acute fracture. Patchy bilateral infiltrates. IMPRESSION: Patchy bilateral infiltrates. This document has been electronically signed by: Temo Llanos MD on 12/20/2024 22:48:02 us Rai Gonzalez MD IMG XR PROCEDURES Final Result * CT Head wo Contrast (12/20/2024 7:54 PM EDT) Anatomical Region Laterality Modality Head and Neck Computed Tomogra phy 12/20/2024 8:18 PM EDT Impressions 12/20/2024 8:18 PM EDT Impression: 1. No acute intracranial abnormalities. This document has been electronically signed by: Balaji Shields MD on 12/20/2024 20:18:33 Narrative 12/20/2024 8:18 PM EDT INDICATION: fall, eliquis CT head without contrast Comparison: 11/27/2023 Findings: No intracranial mass, midline shift, hydrocephalus, or acute hemorrhage. No CT evidence of acute ischemia. Similar-appearing sequela of right frontal craniectomy and partial orbital roof resection, with stable right frontal encephalomalacia. Visualized paranasal sinuses and mastoid air cells normal. Orbits unremarkable. No skull fracture Procedure Note Balaji Shields MD - 12/20/2024 INDICATION: fall, eliquis CT head without contrast Comparison: 11/27/2023 Findings: No intracranial mass, midline shift, hydrocephalus, or acute hemorrhage. No CT evidence of acute ischemia. Similar-appearing sequela of right frontal craniectomy and partial orbital roof resection, with stableright frontal encephalomalacia. Visualized paranasal sinuses and mastoid air cells normal. Orbits unremarkable. No skull fracture IMPRESSION: Impression: 1. No acute intracranial abnormalities. This document has been electronically signed by: Balaji Shields MD on 12/20/2024 20:18:33 us Rai Gonzalez MD IMG CT PROCEDURES Final Result * APTT (12/20/2024 7:52 PM EDT) [facility] aPTT 38.6 24.1 - 39.3 sec LAB COAGULATION METHOD 12/20/2024 8:24 PM EDT [facility] Blood Venous blood specimen / Unknown Venipuncture / Unknown 12/20/2024 7:52 PM EDT 12/20/2024 8:06 PM EDT us Rai Gonzalez MD LAB BLOOD ORDERABLES Final Resul t Performing Organization Address City/[facility]/ZIP Co de Phone Number [facility] [address] [place] [address], [place] [phone] * Protime-INR (12/20/2024 7:52 PM EDT) [facility] Protime 13.1 10.6 - 13.9 sec LAB COAGULATION METHOD 12/20/2024 8:24 PM EDT [facility] INR 1.1 LAB COAGULATION METHOD 12/20/2024 8:24 PM EDT [facility] Blood Venous blood specimen / Unknown Venipuncture / Unknown 12/20/2024 7:52 PM EDT 12/20/2024 8:06 PM EDT us Rai Gonzalez MD LAB BLOOD ORDERABLES Final Resul t [facility] [address] [place] [address], [place] [phone] * (ABNORMAL) Ethanol (12/20/2024 7:52 PM EDT) [facility] Ethanol Level 211(H) 0 - 10 mg/dL LAB CHEMISTRY METHOD 12/20/2024 8:37 PM EDT [facility] Blood Venous blood specimen / Unknown Venipuncture / Unknown 12/20/2024 7:52 PM EDT 12/20/2024 8:06 PM EDT us Rai Gonzalez MD LAB BLOOD ORDERABLES Final Resul t [facility] [address] [place] [address], [place] [phone] * (ABNORMAL) Comprehensive Metabolic Panel (CMP) (12/20/2024 7:52 PM EDT) Sodium 141 133 - 145 mmol/L LAB CHEMISTRY METHOD 12/20/2024 8:37 PM EDT [facility] Potassium 3.4(L) 3.5 - 5.5 mmol/L LAB CHEMISTRY METHOD 12/20/2024 8:37 PM [facility] Chloride 100 96 - 110 mmol/L LAB CHEMISTRY METHOD 12/20/2024 8:37 PM [facility] CO2 31 21 - 32 mmol/L LAB CHEMISTRY METHOD 12/20/2024 8:37 PM [facility] Anion Gap 10 3 - 11 LAB CHEMISTRY METHOD 12/20/2024 8:37 PM [facility] Glucose 128(H) 70 - 100 mg/dL LAB CHEMISTRY METHOD 12/20/2024 8:37 PM [facility] BUN 13 5 - 25 mg/dL LAB CHEMISTRY METHOD 12/20/2024 8:37 PM [facility] Creatinine 0.81 0.70 - 1.30 mg/dL LAB CHEMISTRY METHOD 12/20/2024 8:37 PM [facility] eGFR 98 >=60 mL/min/1. 73m2 LAB CHEMISTRY METHOD 12/20/2024 8:37 PM [facility] Comment:Calculation based on the Chronic Kidney Disease Epidemiology Collaboration (CKD-EPI) equation refit without adjustment for race. BUN/Creatinine Ratio 16.0 LAB CHEMISTRY METHOD 12/20/2024 8:37 PM EDT [facility] Calcium 8.8 8.5 - 10.5 mg/dL LAB CHEMISTRY METHOD 12/20/2024 8:37 PM EDT [facility] AST (SGOT) 28 10 - 42 unit/L LAB CHEMISTRY METHOD 12/20/2024 8:37 PM EDT [facility] ALT (SGPT) 21 10 - 60 unit/L LAB CHEMISTRY METHOD 12/20/2024 8:37 PM EDT [facility] Alkaline Phosphatase 146(H) 42 - 121 unit/L LAB CHEMISTRY METHOD 12/20/2024 8:37 PM EDT [facility] Total Protein 7.5 6.0 - 8.0 g/dL LAB CHEMISTRY METHOD 12/20/2024 8:37 PM EDT [facility] Albumin 3.5 3.2 - 5.0 g/dL LAB CHEMISTRY METHOD 12/20/2024 8:37 PM EDT [facility] Total Bilirubin 0.5 0.0 - 1.4 mg/dL LAB CHEMISTRY METHOD 12/20/2024 8:37 PM EDT [facility] Blood Venous blood specimen / Unknown Venipuncture / Unknown 12/20/2024 7:52 PM EDT 12/20/2024 8:06 PM EDT us Rai Gonzalez MD LAB BLOOD ORDERABLES Final Resul t [facility] [address] [place] [address], from Last 3 Months Insurance [facility] Member Subscriber Plan / Payer (Ef fective 2023-Present) Name:GIO ZEE Relation to Subscriber:Self Name:Gio Zee Payer ID:[id number] Group ID:[id number] Type:Not on file Address: [place] [address] [address] [id number] Advance Directives Documents on File Type Date 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 Do not modify or discontinue any currently active code status orders. * Full Code - Default Date Activated Date Inactivated Comments 03/17/2024 5:06 PM 03/18/2024 6:06 PM This is orde r is used when code status has not been discussed with the patient, or code status is otherwise unknown/unconfirmed To update the patient's code status, place a code status order. Do not modify or discontinue any currently active code status orders. Healthcare Agents on File Name Relationship Healthcare Agent [facility] Communication Peyton Ely Relative Health Care Agent Care Teams Manager Facility Relationship Specialty Start Date End Date Cristhian Delgado DO [address] [facility] [place], [place] PCP - General Internal Medicine 02/01/24
--- OUTSIDE RECORDS SUMMARY | 2025-01-04 18:34 | XMS_ITS | Data Portability ---
Author Organization [facility], Telehealth Patient Home Address [address] [facility] [place] [address] Assessment Encounter Date Assessment Date Assessment LastModified by Organization Details LastModified Time 01/19/2024 01/19/2024 [id number] [place] [address] ([employer]) MDM HIGH MUST MEET 2 OUT OF [...] COVERED Not available 01/19/2024 11:54:32 03/22/2024 03/22/2024 [address] [place] [address] ([employer]) MDM MODERATE MUST MEET 2 OUT OF [...] COVERED Not available 03/22/2024 11:36:53 05/19/2024 05/19/2024 [address] [place] [address] (CUST[employer]) MDM HIGH MUST MEET 2 OUT OF [...] COVERED Not available 05/19/2024 15:01:00 06/07/2024 06/07/2024 [id number] [place] [address] (C[employer]) MDM MODERATE MUST MEET 2 OUT OF [...] COVERED Not available 06/07/2024 12:03:37 10/10/2024 10/10/2024 [address] [place] [address] (C[employer]) MDM MODERATE MUST MEET 2 OUT OF [...] Time Details Appointments FOLLOW UP 15 2024 02:30P M DR PEREZ Not available Not available Not available Lab vitamin D, 25-hydrox y, total, serum 2024 025 [facility], [address] [place] [address], [address], 05/26/2024 12:27:32 vitamin B12 + folate, serum or blood 2024 025 [facility], [address] [place] [address], [address], 05/22/2024 12:30:46 CMP, serum or plasma 2024 025 [facility], [address] [place] [address], [address], 05/22/2024 12:30:45 Referral orthopedi c surgeon referral 2024 025 aravind Simpson MD, [address] [facility] [address], [place], [address], 06/14/2024 09:07:33 gastroent erologist referral - routine colonosco py 2024 025 aravind Parra MD, [address] [facility] [address], [place], [address], 06/20/2024 09:35:00 Procedures None recorded. Surgeries None recorded. Imaging XR, hand, 3 or more view 2024 025 [facility] (Central Scheduling [facility]iology), [address] [place], [address], 06/02/2024 08:24:58 MRI, shoulder, w/o contrast 2024 025 [facility] ([facility]), [address] [place], [address], 06/05/2024 08:26:15 XR, hand, 3 or more view 2023 024 [facility] ([facility]), [address] [place], [address], 02/02/2024 08:29:38 Medication Orders triamcino lone acetonide 0.1 % topical cream 2024 025 [facility]acy #[id number], [address] [place], [address], 10/10/2024 16:46:57 azithromy keyana 250 mg tablet 2024 025 [facility] #[id number], [address] [place], [address], 06/07/2024 12:12:19 azithromy keyana 250 mg tablet 2024 025 [facility], [address] [place], [address], 05/19/2024 14:59:57 triamcino lone acetonide 0.1 % topical cream 2024 025 [facility], [address] [place], [address], 05/19/2024 15:02:20 triamcino lone acetonide 0.1 % topical cream 2023 024 [facility] #[id number], [address] [place], [address], 01/19/2024 11:51:47 Multivita min 50 Plus tablet 2023 024 [facility] #[id number], [address] [place], [address], 01/19/2024 11:50:00 Patient TargetsNo targets recorded. Patient Instructions Encounter Date Encounter Id Patient Instructions Last Modified By Organization Details Last Modified Time 01/19/2024 [id number] chronic obstructive pulmonary disease (COPD): care instructions Not available 01/19/2024 11:49:57 learning about copd and how to prevent lung infections Not available 01/19/2024 11:49:57 pulse oximetry* Not available 01/19/2024 11:49:57 neuropathic pain : care instructions Not available 01/19/2024 11:49:57 03/22/2024 [id number] pulse oximetry* CARLOS Not available 03/22/2024 11:49:54 05/19/2024 [id number] pulse oximetry* Not available 05/19/2024 14:59:35 dislocated shoulder: care instructions Not available 05/19/2024 14:59:35 shoulder dislocation: rehab exercises Not available 05/19/2024 14:59:35 neuropathic pain : care instructions Not available 05/19/2024 15:02:31 06/07/2024 [id number] pulse oximetry* CARLOS Not available 06/07/2024 11:42:18 10/10/2024 [id number] pulse oximetry* Not available 10/10/2024 16:46:54 Reason for Referral Jazz Singer Referral for Screening for malignant neoplasm of colon routine colonoscopy Referring Physician: Cristhian Perez, Internal Medicine, Encounter Date: 05/19/2024 Orthopedic Surgeon Referral for Dislocation of shoulder joint Referring Physician: Cristhian Perez, Internal Medicine, Encounter Date: 06/07/2024 Results Created Date Observation Date Name Description Value Unit Range Abnormal Flag Note LastModifiedBy Organization Detail LastModifiedTime 01/19/20 24 01/19/2024 pulse oxime try* Result 92 Not Available [facility] [address] [place] [address] [place], [address], 01/14/2024 11:32:45 03/22/19 25 03/22/2024 pulse oxime try* Result 95 Not Available [facility] [address] [place] [address] D, [place], [address], 03/14/2024 11:54:52 05/20/19 25 05/19/2024 pulse oxime try* Result 91% Not Available [facility] Medicine [address] [facility] [address], [place], [address], 05/17/2024 16:20:55 06/08/19 25 06/07/2024 pulse oxime try* Result 93 Not Available [facility] [address] [facility] [address], [place], [address], 06/04/2024 08:15:20 10/11/1910/10/2024 pulse oxime try* Result 97 Not Available [facility] [address] [facility] [address], [place], [address], 10/10/2024 07:45:39 06/06/19 25 06/01/2024 MRI, shoul georgina, w/o contr ast No observ ation record ed. [facility] Mri Department [address] [place], [address], 06/05/2024 15:20:13 10/27/19 25 10/26/2024 XR, shoul georgina No observ ation record ed. [address] (Medical Records) [address] [place], [address], 10/27/2024 09:20:23 10/27/19 25 10/26/2024 CT, angio gram, chest + abdom en + pelvi s, w/ contr ast No observ ation record ed. [address] (Medical Records) [address] [place], [address], 10/27/2024 09:20:53 10/28/19 25 10/26/2024 CT, angio gram, chest , w/ contr ast No observ ation record ed. [email or web address] [facility] (Medical Records) [address] [place], [address], 10/27/2024 10:02:41 12/19/19 25 12/18/2024 imagi ng/di agnos tic resul t No observ ation record ed. [email or web address] [facility] (Medical Records) [address] [place], [address], 12/19/2024 08:50:10 01/05/20 25 01/04/2025 XR, chest , 2 view No observ ation record ed. [facility] (Medical Records) [address] [place], [address], 01/04/2025 16:40:25 Result Notes None recorded. Problems Name Problem SNOMED Code Status Onset Date Resolution Date Notes Provider Name and Address Organization Details Recorded Time Chronic obstructi ve pulmonary disease 69002034 [facility] 15:16:29 Neuropath y 974248745 [facility] 15:16:41 [facility] 85203171 [facility] 15:16:[facility] History of gallstone s 083201090 [facility] 15:17:04 History of deep vein thrombosi s 977360597 Active 2018 s/p IVC filter May Dalton, KAMLESH [address] [place], [address], [facility] 9 14:35:19 Harmful pattern of use of alcohol 12344916 Active 2018 Kimberly Coelho NP, S [address] [place], [address], [facility] 9 16:45:28 Tobacco dependenc e syndrome 98098133 Active 2018 Kimberly Coelho NP, S [address] [place] [address], [address], [facility] 9 16:13:47 Tinea corporis 21558668 Active 2023 Cristhian Perez DO [address] [place] [address], [address], [facility] 4 12:10:21 Insomnia 980904861 Active 2023 Cristhian Perez DO [address] [place] [address], [address], [facility] 4 12:17:44 Secondary periphera l neuropath y 506705 Active 2023 Cristhian Perez DO [address] [place] [address], [address], [facility] 4 22:16:11 Acute exacerbat ion of chronic obstructi ve pulmonary disease 339681605 Active 2023 HIMA HUERTA [address] [place] [address], [address], [facility] 4 15:05:32 Generaliz ed rash 881291442 Active 2023 HIMA HUERTA [address] [place] [address], [address], [facility] 4 10:59:16 Depressiv e disorder 62493522 Active 2023 HIMA HUERTA [address] [place] [address], [address], [facility] 4 10:26:22 Eczema 66699548 Active 2023 Cristhian Perez DO [address] [place] [address], [address], [facility] 4 11:50:30 Pain of bilateral hands 86816396450 768390 Active 2023 Cristhian Perez DO [address] [place] [address], [address], [facility] 4 11:52:35 Pruritic rash 67464141 Active 2023 Cristhian Perez [address], [address], [facility] 4 21:26:20 COVID-19 397737789 Active 2024 Cristhian Perez [address], [address], [facility] 5 11:37:01 Nummular eczema 23729378 Active 2024 Cristhian Perez [address], [address], [facility] 5 14:51:23 Dislocati on of shoulder joint 436863540 Active 2024 Cristhian Perez [address], [address], [facility] Internal [facility] 5 14:52:22 Dislocati on of shoulder joint 055143342 Active 2024 Cristhian Perez [address], [address], [facility] 5 14:52:26 Bilateral pain of joint of hands 45826512701 819914 Active 2024 Cristhian Perez DO [address] [place] [address], [address], [facility] 5 14:53:41 Eczema of lower leg 400426503 Active 2024 Cristhian Perez [address], [address], [facility] 5 16:55:51 Problem Notes None recorded. Medical Equipment None Reported. Allergies Allergen ID Allergen Name Allergen Category Reaction Reaction Severity Criticality Documentation Date Start Date Code Code System Note Provider Name and Address Organization Details Recorded Time 2905 peanut allergeni c extract food,medi cation Not available Not available Not available 05/11/2018 34782 8 RxNorm Sheila De Leon brigid [facility] Internal Medicine 9 15:14:37 8332 Lyrenea medicatio n rash Not available Not available 11/15/20232023 49936 1 RxNorm Landry Dunbar brigid [facility] Internal Medicine 4 10:28:00 8490 raspberry extract food,medi cation Not available Not available Not available 12/29/2023 86913 69 RxNorm HIMA HUERTA [address] [place], [address], [facility] 4 10:47:33 Medications Name Sig [...] Not Available Not Available aspirin 81 mg tablet,nadya yed release Take 1 [...] Updated DateTime 5 171.45 cm 23.6 kg/m2 97871.6 3 g 71 /min 95 % 95 % 106/68 mm[Hg] Cristhian Perez, DO [address] [place], [address] [place] [address] 5 11:20:11 Date Recorded Body height Body mass index (BMI) Body weight Heart rate Oxygen saturation Oxygen saturation in Arterial blood by Pulse oximetry Systolic And Diastolic Provider Name and Address Organization Details Last Updated DateTime 5 171.45 cm 24.4 kg/m2 72964.6 7 g 81 /min 91 % 91 % 130/80 mm[Hg] Daphne Drew [facility] 5 14:36:10 Date Recorded Body height Heart rate Oxygen saturation Oxygen saturation in Arterial blood by Pulse oximetry Systolic And Diastolic Provider Name and Address Organization Details Last Updated DateTime 5 171.45 cm 77 /min 93 % 93 % 129/60 mm[Hg] Trina Alcantar [facility] 5 11:39:05 Date Recorded Body height Body mass index (BMI) Body weight Oxygen saturation Oxygen saturation in Arterial blood by Pulse oximetry Heart rate Systolic And Diastolic Provider Name and Address Organization Details Last Updated DateTime 5 171.45 cm 23.8 kg/m2 95107.2 2 g 97 % 97 % 78 /min 112/64 mm[Hg] Regine Key [facility] 5 16:15:29 Date Recorded Body height Body mass index (BMI) Body weight Heart rate Oxygen saturation Oxygen saturation in Arterial blood by Pulse oximetry Systolic And Diastolic Provider Name and Address Organization Details Last Updated DateTime 4 171.45 cm 23.6 kg/m2 28621.6 3 g 73 /min 92 % 92 % 110/80 mm[Hg] Trina Alcantar [facility] 4 11:13:34 Social History Question Answer Notes LastModified by Organizat ion Details LastModified Time Tobacco Smoking Status [facility] 15:18:01 What Was The Date Of Your Most Recent Tobacco Screening? 06/07/2024 Information not available 06/07/2024 Sex: Unknown Functional Status Question Answer Note LastModified by Organization D etails LastModified Time Do you or have you ever used any other forms of tobacco or nicotine? No Information not available 03/22/2024 Mental Status None recorded. Family History Nothing Reported. Medical History No medical history recorded. Immunizations Vaccine Type Date Status Note Provider Leobardo martinez and Address Organization Details Recorded Time COVID-19 vaccine, vector-nr, rS-Ad26, PF, 0.5 mL 03/27/19 22 completed Not Available [facility] 08/15/2022 22:39:22 Tdap 08/04/19 22 completed Not Available [facility] 08/15/2022 22:39:22 pneumococcal polysaccharide PPV23 07/18/19 21 completed Not Available [facility] 08/15/2022 22:39:22 influenza, unspecified formulation 04/23/19 17 completed Not Available [facility] 08/15/2022 22:39:22 zoster recombinant 10/03/19 25 completed Cristhian Perez DO [address] [address], [address], [facility] 10/10/2024 16:45:43 Past Encounters Encounter ID Performer Location Encounter Start Date Encounter Closed Date Diagnosis/Indication Diagnosis SNOMED-CT Code Diagnosis ICD10 Code Diagnosis IMO Codes Diagnosis Note Cristhian Perez DO [facility] [address] [facility] [address] 07/11/2018 15:02:42 07/11/2018 16:21:04 Alcohol dependence 81031719 F10.20 written scripts vivitrol 380 mg IM Q 4 weeks ( pharmacy not located in system ) Chronic ob structive pulmonary disease 15530072 J44.9 Harmful pa ttern of use of alcohol 78303927 F10.10 long discussion to avoid isolation Use senior center, library, social center to seek psychiatri st-pt prefers to do on own look for SMART meetings stay in contact w/positive people in life get outside and walk History of deep vein thrombosis 240957069 Z86.718 on Eliquis Neuropathy 339404240 G62 .9 gabapentin written & faxed 300 mg BID [id number] Cristhian Perez DO [facility] Medicine [address] [facility],[place] [address] 09/28/2018 13:25:38 09/28/2018 14:06:07 Alcohol dependence 39140408 F10.20 currently in rehab Secondary peripheral neuropathy 907842 G63 2/2 etoh History of deep vein thrombosis 962770980 Z86.718 Tobacco de pendence syndrome 06801548 F17.200 [id number] Cristhian Perez 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 Internal Medicine [address] [facility],[place] [address] 01/03/2019 10:26:01 01/03/2019 11:03:12 Secondary peripheral neuropathy 276407 G63 2/2 etoh Physical deconditioning 4140770956 9102 R68.89 Depressive disorder 3548 9007 F32.9 [id number] Cirsthian Perez [facility] Internal Medicine [address] [facility], [place] [address] 02/07/2019 13:17:51 02/07/2019 13:59:18 Acute folliculitis 265774638 L73.9 Secondary peripheral neuropathy 644197 G63 2/2 etoh no difference in neuropathy , will try to increase dose from 600 to 800 mg denies any drowsiness with the gabapentin still not drinking sx reportedly are worsening Depressive disorder 6038 9007 F32.9 feels the duloxetine has helped with his depression . declines any increase in the dose of his med he does sometimes feel depressed when he thinks about his son who doesn't visit Vitamin D deficiency 347 63914 E55.9 never received the letter regarding this lab result will send in vitamin d now also take vitamin d3 2000 units after completing this will recheck level in 12 weeks Tobacco user 006084024 Z 72.0 [id number] Cristhian Perez DO [facility] Internal Medicine [address] [facility] [facility] [place] [address] 04/28/2019 15:03:46 04/28/2019 16:25:32 Chronic obstructive pulmonary disease 72058042 J44.9 acute exacerbati on of copd Secondary peripheral neuropathy 258574 G63 2/2 etoh no difference in neuropathy [...] who doesn't visit Vitamin D deficiency 347 97027 E55.9 completed the macrodose of vitamin d needs to start the vitamin d r Tobacco user 515500999 Z 72.0 Harmful pa ttern of use of alcohol 04439366 F10.10 currently sober again Gout 12629624 M10.9 History of deep vein thrombosis 679051528 Z86.718 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 has IVC filter Neuropathy 317674808 G62 .9 as above Alcohol dependence 68069 003 F10.20 sober Atopic dermatitis 661275 01 L20.9 Acute exac erbation of chronic obstructive pulmonary disease 503095967 J44.1 adonis, mitesh as above for rash + [place] [id number] Cristhian Perez DO [facility] Internal Medicine [address] [facility] [address] [place], [place] [address] 10/25/2019 15:02:33 10/25/2019 15:22:49 Harmful pattern of use of alcohol 20272105 F10.10 still drinking about 1 pint of hard liquor a day no plans on stopping or seeking help with this addiction advised to work on cutting back and drink water instead patient does not seem interested on doing this despite risks to his health will have patient call if he has another convulsio n Chronic ob structive pulmonary disease 17232123 J44.9 breathing is the same per patient not any worse, cough is the same as well Tobacco de pendence syndrome 90248627 F17.200 still smoking not ready to quit, no plans on quitting SARS-CoV-2 026385532 U07 .1 patient currently has a positive diagnosis of COVID told him to monitor symptoms and if he gets very sick again to go back to the hospital [id number] Cristhian Perez [facility] Internal Medicine [address] [facility] [facility] [place] [address] 01/03/2020 15:04:00 01/03/2020 16:04:29 Harmful pattern of use of alcohol 50339245 F10.10 still drinking about 2 pint of hard liquor a day did discuss with patient about setting up with a rehab center and working with his advisor patient was open to this idea and gave permission for me to speak with his advisor Alcohol withdrawal 96954 0000 F10.939 patient states every time he stops drinking he gets violently ill so him refuses to stop drinking at this point [id number] Cristhian Perez [facility] Medicine [address] [facility],[address] [facility] [address] 03/06/2020 09:10:45 03/06/2020 15:51:21 Harmful pattern of use of alcohol 66749489 F10.10 still drinking about 2 pint of hard liquor a day did discuss with patient about setting up with a rehab center and working with his advisor patient unwilling to stop drinking because of the withdrawal afterwards did discuss in detail with pt that the drinking is contributi ng to his neurologic al issues Chronic ob structive pulmonary disease 49997633 J44.9 breathing is the same per patient not any worse, cough is the same as well does need refill of his inhalers Fall W19.XXXS patient reports he fell due to balance issues, weakness in nabila legs most likely related to his drinking will set him up with Dr. Aldana again for eval Injury of head 19385182 S09.90XS no LOC and CT at hospital showed no acute changes MRI done in april, will not need another MRI History of deep vein thrombosis 612626120 Z86.718 was on eliquis but stopped to do hx of brain bleed no ride to the hospital so he is unwilling to do a fu US to assess chronic DVT due to brain bleed because of blood thinner, he should not be on eliquis at this time but should have US to assess [id number] Cristhian Perez [facility] Internal Medicine [address] [facility],[place] [address] [facility] [place] [address] 04/19/2020 08:38:20 04/22/2020 15:44:19 [id number] Cristhian Perez [facility] Internal Medicine [address] [facility] [address] [facility] [place] [address] 06/12/2020 14:07:08 06/12/2020 15:18:50 Harmful pattern of use of alcohol 92193417 F10.10 still drinking about 2 pint of hard liquor a day did discuss with patient about setting up with a rehab center and working with his advisor patient unwilling to stop drinking because of the withdrawal afterwards did discuss in detail with pt that the drinking is contributi ng to his neurologic al issues Chronic ob structive pulmonary disease 87933723 J44.9 breathing is the same per patient not any worse, cough is the same as well Neuropathy 896669776 G62 .9 will try on the 800 mg qd as patient said this was effective will slowly tirtate up the medication dosage [id number] Cristhian Perez [facility] Internal Medicine [address] [facility] [address] [facility] [place] [address] 04/11/2021 14:50:50 04/11/2021 16:21:09 Chronic obstructive pulmonary disease 23019232 J41.0 breathing is the same per patient not any worse, cough is the same as well Alcohol withdrawal 30364 0000 F10.931 has not had a drink in 1 mo but does plan to drink again though per patient in moderation recommend ed to not drink at all Secondary peripheral neuropathy 044384 G63 restarted gabapentin Harmful pa ttern of use of alcohol 07196412 F10.121 monitoring progress with drinking Pain of le ft shoulder joint 5198278733 9473465 M25.512 improving with at home PT [id number] Cristhian Perez [facility] Internal Medicine [address] [facility], [place] [address] 09/17/2023 10:23:16 09/17/2023 11:04:03 Depression screening 871537827 Z13.31 SCREENING NEGATIVE Harmful pa ttern of use of alcohol 64980799 F10.121 on naloxone campral buspar zoloft Gout 64893847 M10.9 quiet now Neuropathy 805984431 G62 .9 had been on gabapentin Chronic ob structive pulmonary disease 27429511 J41.0 he is stable on the inhalers [id number] Cristhian Perez [facility] Internal Medicine [address] [facility], [place] [address] 10/18/2023 11:40:03 10/18/2023 12:58:27 Chronic obstructive pulmonary disease 18668981 J41.0 he is stable on the inhalers Harmful pa ttern of use of alcohol 05930952 F10.121 on naloxone campral buspar zoloft Tinea corporis 92063066 B35.4 between legs History of deep vein thrombosis [id number] Z86.718 recurrent Insomnia [id number] G47.0 0 [id number] [facility] [address] [place] [address],[place] [address] 11/30/2023 10:27:17 11/30/2023 15:30:22 Acute exacerbation of chronic obstructive pulmonary disease [id number] J44.1 start on pred and z radha Chronic ob structive pulmonary disease 81870238 J41.0 needs refiil [id number] [facility] [address] [place] [address] 12/29/2023 10:02:26 12/29/2023 15:40:20 Pre-surgery evaluation [id number] Z01.818 The patient was seen in the office today for pre-op evaluation . All medical conditions on patient's problem list were addressed and are currently stable, no interventi on needed at this time. Based on history and physical performed, the patient is cleared for surgery. Chronic ob structive pulmonary disease 57168331 J41.0 mild exacerbati oncan start prednisone taper after surgery [id number] Cristhian Perez [facility] [address] [facility] on [place] [address] 01/19/2024 10:45:59 01/19/2024 11:55:43 Acute exacerbation of chronic obstructive pulmonary disease 865754120 J44.1 seems stable now now acute changess Chronic ob structive pulmonary disease 44563753 J41.0 he is stable on the inhalers Neuropathy 375190998 G62 .9 had been on gabapentin Eczema 12775214 L30.9 Pain of bi lateral hands [id number] M79.642 M79.641 [id number] Cristhian Perez [facility] [address] [facility] on [place], [place] [address] 01/17/2024 09:44:31 01/17/2024 11:46:28 Generalized rash [id number] R21 start on combinatio n treat of pred and anti-funga lhas a f/u on 01/18 with MB in officereco mmended him evaluate at that timeskin culture was negative, no staph infection [id number] Cristhian Perez [facility] [address] [facility] [address] [place] [address] 03/22/2024 11:00:25 03/22/2024 11:45:12 Chronic obstructive pulmonary disease 25497541 J41.0 he is stable on the inhalers COVID-19 021834337 U07.1 on medrol and azith getting better Acute exac erbation of chronic obstructive pulmonary disease 213538580 J44.1 seems stable now now acute changesdoi ng bettergive n spacer [id number] Cristhian Perez [facility] [address] [facility] [address] [place] [address] 05/19/2024 14:12:21 05/19/2024 15:20:28 Chronic obstructive pulmonary disease 78977320 J41.0 he is stable on the inhalers Nummular eczema 60150246 L30.0 Dislocatio n of shoulder joint 388954697 S43.006D Bilateral pain of joint of hands 3329486120 6554979 M25.541 M25.542 Screening for malignant neoplasm of colon 109163257 Z12.11 Chronic bronchitis 19427 004 J42 Neuropathy 841764313 G62 .9 had been on gabapentin [id number] Cristhian Perez [facility] [address] [facility],[place] [address] 06/07/2024 11:29:13 06/07/2024 12:15:01 Chronic obstructive pulmonary disease 76075628 J41.0 he is stable on the inhalers Dislocatio n of shoulder joint 604073078 S43.006D Nummular eczema 06866715 L30.0 Depression screening 171 739570 Z13.31 SCREENING NEGATIVE Bilateral pain of joint of hands 2601940151 4124405 M25.541 M25.542 Acute exac erbation of chronic obstructive pulmonary disease 462516235 J44.1 seems stable now now acute changesdoi ng bettergive n spacer [id number] [facility] [address] [facility],[place] [address] 10/10/2024 15:56:56 10/11/2024 10:30:30 Depression screening 301683692 Z13.31 SCREENING NEGATIVE Harmful pa ttern of use of alcohol 71930942 F10.121 on naloxone campral buspar zoloft Chronic ob structive pulmonary disease 38948278 J41.0 he is stable on the inhalers Eczema of lower leg 7623 59301 L30.9 0655922300 will use cream Secondary peripheral neuropathy 910121 G62.89 will cont gabapentin but consider change to duloxetine Health Concerns Section Related Observation LastModified by Organization Detai ls LastModified Time None Recorded Concern Status LastModified by Organization Details LastModified Time None Recorded Advance Directives Directive None Recorded Payers Insurance Date Sequence Insurance Name Policy Number Policy Ruiz Covered Member ID Ruiz Member ID Guarantor Name 05/19/2024 1 [facility] - DOS PRIOR TO 2022 - DUAL ELIGIBLE (MEDICARE REPLACEMENT/ADV ANTAGE - HMO) Edgardo Zavala [id number] Edgardo Zavala 05/19/2024 1 [place] [employer] Edgardo Zavala [id number] Edgardo Zavala 12/01/2024 1 [facility] - DOS ON OR AFTER 2022 - MEDICARE [place]VANTAGE [place]AC[place]/ADV ANTAGE - PPO) Edgardo Zavala [id number] Edgardo Zavala 05/19/2024 1 [place]IOR TO [address] - [facility] (MEDICAID) Edgardo Zavala [id number] Edgardo Zavala Notes Date Note Type Note Provider Name a nd Address Organization Details Recorded Time 4 text/html ROS as noted in the HPI here for rechkrelates that had a rsh for mult weeks creams not helpfulstill smokeshaving a prob with the rash not going away Cristhian Perez DO [address] [place], [address], [facility] 01/19/2024 11:54:47 5 text/html ROS as noted in the HPI here for rechk of his lungs since having covid was seen twice in ER and actually signed out AMA on second visit was told to stay due to lower O2 sat but went hometoday O2 sat 95% Cristhian Perez DO [address] [place], [address], [facility] 03/22/2024 11:38:17 5 text/html ROS as noted in the HPI hwere for rechk right shoulder is pretty bad as of late since the dislocation episode back in januaryrelates that he has also had a problem with his short term memoryhas noticed for several monthsals o the neuropathy has been worse Cristhian Perez DO [address] [place], [address], [facility] 05/19/2024 15:07:19 5 text/html Care [...] his motorcycle again Cristhian Perez DO [address] [place], [address], [facility] 06/07/2024 12:12:26 5 text/html Care [...] his motorcycle again Cristhian Perez DO [address] [place], [address], [facility] 10/10/2024 16:56:27
[2025-01-04] MEDS: Magnesium Sulfate/H2O 2 GM/50 ML PIGGYBACK IV (20:39)
[2025-01-05] VITALS: BP 120/70; PULSE 82; RESP 16; TEMP 36.7; O2SAT 96
--- NOTE | 2025-01-05 00:10 | PC.NURSE ---
Took over care from SALVADOR Chaudhari at 23:00,pt given water, on bed side monitor, still awaiting a urine.
--- NOTE | 2025-01-05 00:30 | PC.NURSE ---
pt assist to the bathroom, ua collected and sent, pt Iv removed, pt awaiting lift foe discharge.
--- NOTE | 2025-01-05 00:39 | MHC.CARE ---
CARE Team met with patient to request he provide a urine for a tox screen and he reported he was not interested in detox. He requested to be fed and sent home. ED provider notified. Recovery consult withdrawn.
--- NOTE | 2025-01-05 00:47 | PC.NURSE ---
pt wheel out by care team to meet lyft.
[2025-01-05 00:48] VITALS: BP 120/70; PULSE 82; RESP 16; TEMP 36.7; O2SAT 96
--- NOTE | 2025-01-05 00:48 | PC.NURSE ---
did review discharge instructions with pt. pt verbalized understanding, pt restated he does not want rehab.
[2025-01-05 00:51] LABS: Cannabinoid Screen Urine Not Detected (Not Detect)
== END 2025-01-05 00:49 | disposition home or self-care (01) ==
PROVIDERS: Physician Assistant; Emergency Provider Emergency Medicine; PCP Internal Medicine
DX: R05.9 Cough, unspecified (principal); F10.10 Alcohol abuse, uncomplicated; Y90.6 Blood alcohol level of 120-199 mg/100 ml; I82.409 Acute embolism and thrombosis of unspecified deep veins of unspecified lower extremity; R11.2 Nausea with vomiting, unspecified; J44.9 Chronic obstructive pulmonary disease, unspecified; Z79.01 Long term (current) use of anticoagulants; Z79.899 Other long term (current) drug therapy
CPT/HCPCS: 36415; 71046; 80048; 80307; 83735; 84484; 85025; 93005; 96365; 96366; 96367; 96375; 99284; 99285; J1808; J2405; J3411; J3475; J7120

== ENCOUNTER → 2025-01-04 15:15 | Outpatient (BNV) | payer OTHER, SELFPAY | PROVIDERS: Emergency Provider Emergency Medicine; PCP Internal Medicine; Visit Provider Internal Medicine Cardiovascular Disease | DX: I45.2 Bifascicular block (principal) | CPT/HCPCS: 93010 ==

== ENCOUNTER → 2025-01-04 15:57 | Outpatient (BNV) | payer OTHER, SELFPAY | PROVIDERS: PCP Internal Medicine; Visit Provider Radiology Diagnostic Radiology | DX: J18.9 Pneumonia, unspecified organism (principal); R06.02 Shortness of breath | CPT/HCPCS: 71046 ==

== ENCOUNTER 2025-01-17 08:20 | Inpatient (IN) | payer OTHER, SELFPAY ==
--- NOTE | ~2025-01-17 | US_ITS ---
EXAMINATION: US ABDOMEN LIMITED CLINICAL INFORMATION: Alcoholic hepatitis, elevated bilirubin.. COMPARISON: 10/05/2020. Correlation made with CT abdomen and pelvis 10/18/2024. TECHNIQUE: Real-time imaging of the right upper quadrant abdominal viscera. FINDINGS: PANCREAS: Visualized portions are unremarkable. LIVER: The liver is normal in size. Right hepatic lobe measures 14.1 cm. The liver contour is normal. There is coarsened and mildly increased parenchymal echogenicity. No focal hepatic lesion. There is no intrahepatic biliary duct dilatation seen. GALLBLADDER: The gallbladder is physiologically distended. There are small gallstones present. There is no biliary sludge. There is no wall thickening or pericholecystic fluid present. There was a negative sonographic Hermosillo's sign. COMMON BILE DUCT: Normal in caliber measuring 0.4 cm in diameter. RIGHT KIDNEY: Not seen with certainty. It was completely atrophic on the CT examination of 10/18/2024. FREE FLUID: None. US/US abdomen limited IMPRESSION: 1. Cholelithiasis without evidence of acute cholecystitis. 2. Mild increased and coarsened echogenicity of the liver, consistent with fatty infiltration and/or hepatocellular disease. No suspicious focal lesion. 3. No biliary dilatation. 4. Atrophic right kidney. Electronically signed by: Jp Joseph MD 01/17/2025 04:24 PM [facility]
--- NOTE | ~2025-01-17 | XR_ITS ---
EXAMINATION: XR CHEST CLINICAL INFORMATION: CP COMPARISON: Chest radiograph on January 04, 2025 TECHNIQUE: Frontal view of the chest was obtained. FINDINGS: Lungs: No focal consolidation or evidence of pulmonary edema. Pleura: No pleural effusion or pneumothorax. Heart/Mediastinum: Cardiomediastinal silhouette is within normal limits. Bones: No acute findings. XR/XR chest 1V IMPRESSION: No acute cardiopulmonary abnormality. IMPRESSION: Unremarkable examination. Electronically signed by: Caleb Arias MD 01/17/2025 09:34 AM EST
--- NOTE | 2025-01-17 08:29 | ECG_ITS ---
Test Reason : CHEST PAIN Blood Pressure : */* mmHG Vent. Rate : 86 BPM Atrial Rate : 86 BPM P-R Int : 132 ms QRS Dur : 132 ms QT Int : 410 ms P-R-T Axes : 53 -77 34 degrees QTcB Int : 490 ms Normal sinus rhythm Right bundle branch block Left anterior fascicular block Bifascicular block Abnormal ECG When compared with ECG of 04-Jan-2025 15:15, T wave inversion no longer evident in Anterior leads Referred By: Helen Moya Electronically Signed By: RENEE TRAMMELL
[2025-01-17 08:30] VITALS: BP 114/76; PULSE 98; O2SAT 97
[2025-01-17 08:33] VITALS: BP 106/66; PULSE 98; RESP 16; TEMP 36.5; O2SAT 96; BMI 20.7
--- NOTE | 2025-01-17 08:41 | ED.GENADULT ---
HPI - General Adult General Chief complaint: General Medical Stated complaint: SEEKING DETOX FOR ALCOHOL,CHEST PRESSURE X3D Time Seen by Provider: 01/17/25 08:23 Source: patient and EMS Mode of arrival: EMS Limitations: no limitations History of Present Illness ED Provider: DR. Moya HPI narrative: 64-year-old male with pertinent history of alcohol use disorder, tobacco use disorder, DVT on Eliquis, COPD not on home supplemental oxygen came in seeking rehab from alcohol. Patient drank a pt of hard liquor this morning before coming to the ED, complaining of epigastric/lower chest pain for the past 2 days with on and off nausea and vomiting. Related Data Home Medications ?Medication ?Instructions ?Recorded ?Confirmed apixaban 5 mg tablet (Eliquis) 5 mg PO BID 08/29/22 06/08/23 folic acid 1 mg tablet 1 mg PO DAILY 06/08/23 06/08/23 hydroxyzine pamoate 25 mg capsule 25 - 50 mg PO TID PRN Anxiety 06/08/23 06/08/23 sertraline 100 mg tablet 100 mg PO DAILY 06/08/23 06/08/23 Previous Rx's ?Medication ?Instructions ?Recorded prednisone 10 mg tablet See Taper PO DIRECTED #20 tabs 06/09/23 thiamine mononitrate (vit B1) 100 100 mg PO DAILY #90 tabs 06/09/23 mg tablet azithromycin 250 mg tablet See Rx Instructions PO .COMPLEX #6 10/26/24 tabs prednisone 20 mg tablet 40 mg (2 x 20 mg) PO DAILY 5 days 10/26/24 #10 tabs Allergies Allergy/AdvReac Type Severity Reaction Status Date / Time Peanut Butter Allergy Facial Verified 01/17/25 08:34 Swelling raspberry Allergy Facial Verified 01/17/25 08:34 Swelling Review of Systems Review of Systems: All other systems are reviewed and are negative Constitutional: Reports as per HPI and Reports no additional constitutional complaints Eyes: Reports as per HPI and Reports no additional eye complaints Reports system reviewed and no additional complaints, except as documented Cardiovascular: Reports as per HPI and Reports no additional cardiovascular complaints Respiratory: Reports as per HPI and Reports no additional respiratory complaints Gastrointestinal: Reports as per HPI and Reports no additional gastrointestinal complaints Genitourinary: Reports no additional female genitourinary complaints Musculoskeletal: Reports no additional musculoskeletal complaints Skin/Breast: Reports system reviewed and no additional complaints, except as docu Psychiatric: Reports no additional psychiatric complaints Endocrine: Reports no additional endocrine complaints Hematologic/Lymphatic: Reports no additional hematologic/lymphatic complaints Allergic/Immunologic: Reports no additional allergic/immunologic complaints Reports system reviewed and no additional complaints, except as documented and Reports Abnormal speech present [facility] Past Medical History Medical History Alcohol withdrawal Alcohol dependence Presence of IVC filter Acute and chronic respiratory failure with hypoxia COPD (chronic obstructive pulmonary disease) Alcohol use disorder, severe, dependence Tobacco abuse Subdural hematoma DVT (deep venous thrombosis) COPD (chronic obstructive pulmonary disease) Asthma Neuropathy Alcohol abuse Social History Social History Household Members: None Housing: House Do you presently have visiting nurse or other home services: No Alcohol intake: current Alcohol intake frequency: 3 or more drinks per day Alcohol type: hard liquor Comment: pt refuses high fall risk interventions Patient Tobacco Use Status: Current everyday Tobacco user Tobacco use type: Cigarette Cigarette Packs Per Day: 1 Cigarettes Per Day: 20.0 Smoked in Last 30 Days: Yes e-Cigarette/Vaping Use: Never Used Second Hand Smoke Exposure: No Use of substances other than those prescribed or required for medical reasons: Yes Substance Use Type: Marijuana Advance Directives: Yes Advance Directives on File: Yes Advance Directives Date on File: 03/05/22 Do you have a plan to hurt others: No Plan service: No Current occupational status: disabled Physical Exam ED Vital Signs: Vital Signs - 24 hr 01/17/25 08:33 Temperature 97.7 F Pulse Rate 98 Respiratory Rate 16 Blood Pressure 106/66 Pulse Oximetry 96 Oxygen Delivery Method Room Air BMI result Body Mass Index 20.7 Vital signs have been reviewed and appear to be correct. Blood pressure elevated. Heart rate normal. Respiratory rate normal. Temperature normal. Oxygen saturation normal. Appearance: Alert. Oriented X3. No acute distress. Head: Normal external exam. Normocephalic. Atraumatic. No Blair signs noted. No raccoon eyes noted Eyes: PERRLA. EOMI. Conjunctiva and sclera normal. Eyelids normal. ENT: TM's Normal. Pharynx normal. Uvula midline. Moist mucous membranes. No trismus noted. No drooling noted. No muffled voice noted. Neck: Normal inspection. Neck supple. FROM. No adenopathy. Thyroid Normal. No meningeal signs. No neck mass noted. CVS: Normal heart rate and rhythm. Heart sound normal. No murmurs noted. Pulses normal throughout. Respiratory: No respiratory distress. Painless inspiration. Breath sounds normal. No wheezes/rales/rhonchi noted. Chest nontender. No accessory muscle usage noted or decreased air movement noted. Abdomen: Soft and nontender. Bowel sounds normal in all 4 quadrants. No distention noted. No organomegaly noted. No visible injury noted. Back: No CVA tenderness. Full range of motion noted. Skin: Skin warm and dry. Normal skin color. Normal skin turgor. No rashes/lesions/lacerations noted. Extremities: No lower extremity edema. Extremities exhibit normal range of motion. Extremities nontender. Neuro: Oriented X 3. Cranial nerve exam: II-XII are grossly intact No motor deficit. No sensory deficit. Reflexes normal. Course Reevaluation(s) Reevaluation #1: 64-year-old male alcohol use disorder and severe hypomagnesemia. Patient with known history of withdrawal symptoms will start the patient on phenobarb. Replete magnesium IV in the ED. Time: 11:04 Medications Administered Generic Name Dose Route Start Last Admin Trade Name Freq PRN Reason Stop Dose Admin Magnesium Sulfate 2 gm in 50 mls @ 25 mls/hr 01/17/25 09:49 01/17/25 10:01 Magnesium Sulfate/H2o IV 01/17/25 11:48 25 mls/hr ONCE ONE Administration Discontinued Medications Generic Name Dose Route Start Last Admin Trade Name Freq PRN Reason Stop Dose Admin Al Hydroxide/Mg Hydroxide 30 ml 01/17/25 08:28 01/17/25 08:58 Magnesium Hydrox/Alum Hydrox 30 Ml Oral.Susp PO 01/17/25 08:29 30 ml ONCE ONE Administration Sodium Chloride 1,000 mls @ 999 mls/hr 01/17/25 08:28 01/17/25 09:52 Ns IV 01/17/25 09:28 Infused .Q1H1M ONE Infusion Phenobarbital Sodium 254 mg 01/17/25 11:00 01/17/25 11:02 Phenobarbital Sodium 130 Mg/Ml Im Once IM 01/17/25 11:01 254 mg ONCE ONE Administration Protocol Sucralfate 1 gm 01/17/25 08:28 01/17/25 08:59 Sucralfate Oral Suspension 1 Gm/10 Ml Oral.Susp PO 01/17/25 08:29 1 gm ONCE ONE Administration Medical Decision Making Differential Diagnosis Differential Diagnoses: The differential diagnosis associated with the presentation includes (Alcohol intoxication, alcohol withdrawal, DTs, electrolyte derangement, severe anemia, dehydration.) Admission/Observation Consideration of admission/observation: Escalation of care including admission/observation considered Consult Healthcare Provider Management of the patient was discussed with: Hospitalist (Deni) Lab Data MDM Lab Attestation statement: I reviewed the patient's lab results. 01/17/25 09:19 01/17/25 09:19 Labs: Lab Results 01/17/25 01/17/25 Range/Units 09:18 09:19 WBC 4.1 L (4.8-10.8) X10*3/uL RBC 4.10 L (4.60-5.80) X10*6/uL Hgb 12.5 L (14.0-18.0) g/dl Hct 37.2 L (42.0-52.0) % MCV 90.7 (80.0-98.0) fL MCH 30.5 (27.0-33.0) pg MCHC 33.6 (31.0-36.0) g/dl RDW 17.2 H (11.0-16.0) % Plt Count 99 L (160-400) X10*3/uL MPV 10.4 (9.4-12.4) fL Immature Gran % (Auto) 0.2 (0.0-0.4) % Neut % (Auto) 54.3 (45-73) % Lymph % (Auto) 31.7 (20-40) % Wheeler % (Auto) 10.8 (2-11) % Eos % (Auto) 1.5 (0-4) % Baso % (Auto) 1.5 (0-2) % Lymph # (Auto) 1.3 (1.2-4.9) X10*3/uL Wheeler # (Auto) 0.4 (0.1-1.2) X10*3/uL Eos # (Auto) 0.1 (0.0-0.4) X10*3/uL Baso # (Auto) 0.1 (0.0-0.2) X10*3/uL Abs Immat Gran (auto) 0.01 (0.00-0.03) X10*3/uL Absolute Neuts (auto) 2.2 (2.0-8.3) x10*3/uL Absolute Nucleated RBC 0.000 (0.0-0.012) X10*3/uL Nucleated RBC % (auto) 0.0 (0.0-0.2) /100WBC Sodium 138 (135-145) mmol/L Potassium 3.1 L (3.3-5.1) mmol/L Chloride 96 (96-108) mmol/L Carbon Dioxide 30 H (22-29) mmol/L Anion Gap 15 (12-20) BUN 9 (9-16) mg/dL Creatinine 0.66 (0.5-1.4) mg/dL Estim Creat Clear Calc 101.5 Estimated GFR > 60 Random Glucose 82 (60-115) mg/dL Calcium 7.8 L D (8.4-10.2) mg/dL Magnesium 1.2 L* (1.6-2.6) mg/dL Total Bilirubin 1.4 H (0.0-1.0) mg/dL Direct Bilirubin 0.8 H (0.0-0.5) mg/dL AST 205 H (5-37) U/L ALT 88 H (0-40) U/L Alkaline Phosphatase 199 H (39-117) U/L Troponin I High Sens 6.3 D (<3.5-35.0) ng/L Total Protein 6.7 (6.5-8.0) g/dL Albumin 3.6 (3.5-5.0) g/dL Lipase 28 (8-78) U/L Ethyl Alcohol 354 H* mg/dL Influenza Type A (PCR) NEGATIVE (Negative) Influenza Type B (PCR) NEGATIVE (Negative) RSV RNA Qual (PCR) NEGATIVE (Negative) SARS-CoV-2 RNA (RT-PCR) NEGATIVE (Negative) Independent Interpretation I performed an independent interpretation of an: Plain X-Ray (Chest: No acute cardiopulmonary abnormality.) Radiology Impression Discussion of test interpretation with radiology: I have reviewed the radiologist's reading. Chronic Conditions Patient?s care impacted by: Other (Alcohol use disorder) Discharge Plan Discharge Clinical Impression: Hypomagnesemia, Alcohol intoxication Patient Disposition: Admitted As Inpatient
[2025-01-17] MEDS: Magnesium Hydrox/Alum Hydrox 30 ML ORAL.SUSP PO (08:58)
[2025-01-17] MEDS: Sucralfate Oral Suspension 1 GM/10 ML ORAL.SUSP PO (08:59)
[2025-01-17 09:25] LABS: MANUAL DIFF FLAG NO
[2025-01-17 09:28] LABS: Hematocrit 37.2 % (42.0-52.0); Hemoglobin 12.5 g/dl (14.0-18.0); Imm Gran Abs Auto 0.01 X10*3/uL (0.00-0.03); Imm Gran Pct Auto 0.2 % (0.0-0.4); Lymphocytes Absolute Auto 1.3 X10*3/uL (1.2-4.9); Mean Corpuscular HGB Conc 33.6 g/dl (31.0-36.0); Mean Corpuscular Hemoglobin 30.5 pg (27.0-33.0); Mean Corpuscular Volume 90.7 fL (80.0-98.0); NRBC Abs Auto 0.000 X10*3/uL (0.0-0.012); NRBC Pct Auto 0.0 /100WBC (0.0-0.2); Platelet Count 99 X10*3/uL (160-400); Red Blood Count 4.10 X10*6/uL (4.60-5.80); White Blood Count 4.1 X10*3/uL (4.8-10.8)
--- NOTE | 2025-01-17 09:40 | PC.NURSE ---
patient a&ox3, iv inserted, labs drawn, ekg performed, cardiac rehab nurse applied. call goetz within reach, plan of care ongoing
[2025-01-17 09:47] LABS: Alanine Aminotransferase 88 U/L (0-40); Albumin Level 3.6 g/dL (3.5-5.0); Alkaline Phosphatase 199 U/L (39-117); Anion Gap 15 (12-20); Aspartate Amino Transferase 205 U/L (5-37); Blood Urea Nitrogen 9 mg/dL (9-16); Calcium 7.8 mg/dL (8.4-10.2); Carbon Dioxide 30 mmol/L (22-29); Chloride 96 mmol/L (96-108); Creatinine Clr Calc Pharmacy 101.5; Estimated Glomerular Filt Rate > 60; Lipase 28 U/L (8-78); Potassium 3.1 mmol/L (3.3-5.1); Sodium 138 mmol/L (135-145); Total Protein 6.7 g/dL (6.5-8.0)
[2025-01-17 09:49] LABS: Magnesium 1.2 mg/dL (1.6-2.6)
[2025-01-17 09:52] LABS: Troponin-I High Sensitivity 6.3 ng/L (<3.5-35.0)
[2025-01-17] MEDS: Magnesium Sulfate/H2O 2 GM/50 ML PIGGYBACK IV (10:01)
[2025-01-17 10:17] LABS: Resp Syncy Virus RNA Qual PCR NEGATIVE (Negative); SARS COV2 PCR INHOUSE NEGATIVE (Negative)
--- NOTE | 2025-01-17 10:48 | MHC.CARE ---
Pt seen for recovery assessment and requested detox admission. Referral sent to [facility] for possible admission.
[2025-01-17] MEDS: PHENobarbitaL sodium 130 MG/ML IM ONCE 254 MG IM (11:02)
--- NOTE | 2025-01-17 11:47 | PM.IMHP ---
History of Present Illness Date of Service: 01/17/25 Attending physician on admission: Kin Chatman Chief Complaint: epigastric/lower chest pain x2 days 64-year-old male with a history of EtOH use disorder, tobacco use disorder, DVT on Eliquis, COPD not on home supplemental oxygen, peripheral neuropathy, presents to ED seeking rehabilitation for EtOH abuse. Patient reports drinking a pt of whiskey prior to presenting to the hospital. The patient reports that he is an alcoholic, and seeking help. Patient is at times unclear, and represents a challenging historian. Patient has complaints of epigastric and left lower quadrant pain described as a cramping ache, without radiation, ongoing for the past 5 days. The patient reports associated tarry black stool for the past 3 days. He also reports poor p.o. intake/ no food for the past 3 days due to decreased appetite, and because he is an alcoholic . Reports associated nausea, with bilious nonbloody vomiting (temporality of vomiting is unclear). Endorses associated weight loss. Patient denies hematochezia, hematemesis. Lab work reveals leukopenia, anemia and thrombocytopenia. Creatinine returned within normal limits, Potassium 3.1, hypomagnesemia 1.2. LFTs revealing elevated total biliruben 1.4, with AST/ALT elevation 204:88, with elevated Alk Phos. Ethyl alcohol level elevated indicated active intoxication. CXR negative for acute intrathoracic findings. Patient received phenobarbital loading dose in the emergency room and 1 g of sucralfate. Review of Systems Review of Systems: Yes all other systems are reviewed and are negative [facility] Medical History Alcohol withdrawal Alcohol dependence Presence of IVC filter Acute and chronic respiratory failure with hypoxia COPD (chronic obstructive pulmonary disease) Alcohol use disorder, severe, dependence Tobacco abuse Subdural hematoma DVT (deep venous thrombosis) COPD (chronic obstructive pulmonary disease) Asthma Neuropathy Alcohol abuse Social History Household Members: None Housing: House Do you presently have visiting nurse or other home services: No Alcohol intake: current Alcohol intake frequency: 3 or more drinks per day Alcohol type: hard liquor Comment: pt refuses high fall risk interventions Patient Tobacco Use Status: Current everyday Tobacco user Tobacco use type: Cigarette Cigarette Packs Per Day: 1 Cigarettes Per Day: 20.0 Smoked in Last 30 Days: Yes e-Cigarette/Vaping Use: Never Used Second Hand Smoke Exposure: No Use of substances other than those prescribed or required for medical reasons: Yes Substance Use Type: Marijuana Advance Directives: Yes Advance Directives on File: Yes Advance Directives Date on File: 03/05/22 Do you have a plan to hurt others: No Plan service: No Current occupational status: disabled Meds Allergies Allergy/AdvReac Type Severity Reaction Status Date / Time Peanut Butter Allergy Facial Verified 01/17/25 08:34 Swelling raspberry Allergy Facial Verified 01/17/25 08:34 Swelling Active Medications: Current Medications Magnesium Sulfate (Magnesium Sulfate/H2o) 2 gm in 50 mls @ 25 mls/hr IV ONCE ONE Stop: 01/17/25 11:48 Last Admin: 01/17/25 10:01 Dose: 25 mls/hr Pharmacy Consult (Consult Rx Etoh Phenob Im/Po) 1 each MISCELLANE ONCE PRN; Protocol PRN Reason: Consult order Phenobarbital (Phenobarbital 15 Mg Tablet) 45 mg PO BID NOHEMI; Protocol Stop: 01/19/25 21:01 Phenobarbital (Phenobarbital 30 Mg Tablet) 30 mg PO BID NOHEMI; Protocol Stop: 01/21/25 21:01 Phenobarbital (Phenobarbital 30 Mg Tablet) 30 mg PO DAILY NOHEMI; Protocol Stop: 01/23/25 09:01 Phenobarbital Sodium (Phenobarbital Sodium 130 Mg/Ml Vial Im Q3hx2) 190 mg IM Q3H NOHEMI; Protocol Stop: 01/17/25 17:01 Home Medications ?Medication ?Instructions ?Recorded ?Confirmed ?Last Taken ?Type apixaban 5 mg tablet (Eliquis) 5 mg PO BID 08/29/22 01/17/25 06/07/23 History albuterol sulfate 90 mcg/actuation 2 puff inhalation Q4H PRN 01/17/25 01/17/25 Unknown History aerosol inhaler Shortness Of Breath buspirone 7.5 mg tablet 7.5 mg PO TID 01/17/25 01/17/25 Unknown History fluticasone fur. 100 mcg-umeclid 1 ea inhalation DAILY 01/17/25 01/17/25 Unknown History 62.5 mcg-vilant 25 mcg inhalat.powder (Trelegy Ellipta) hydroxyzine pamoate 50 mg capsule 50 mg PO BID 01/17/25 01/17/25 Unknown History melatonin 5 mg tablet 5 - 10 mg PO BEDTIME PRN Sleep 01/17/25 01/17/25 Unknown History mirtazapine 15 mg tablet 15 mg PO BEDTIME 01/17/25 01/17/25 Unknown History naltrexone 50 mg tablet 50 mg PO BEDTIME 01/17/25 01/17/25 Unknown History prazosin 1 mg capsule 1 mg PO BEDTIME 01/17/25 01/17/25 Unknown History sertraline 100 mg tablet 200 mg PO DAILY 01/17/25 01/17/25 Unknown History Physical Exam Vital Signs and Narrative: Vital Signs: Last Vital Signs Temp 97.7 F 01/17/25 08:33 Pulse 98 01/17/25 08:33 Resp 16 01/17/25 08:33 BP 106/66 01/17/25 08:33 Pulse Ox 96 01/17/25 08:33 O2 Del Method Room Air 01/17/25 08:33 BMI result Body Mass Index 20.7 General: A&O x3, oriented to time place person and situation, comfortable, no pain. Breath smells of alcohol. Disheveled Cardiac: S1, S2 auscultated with no S3/4, no MRG. Well perfused. Respiratory: Normal breath sounds auscultated throughout all lung zones, without wheezing, rales. Normal rate. GI/ : Mild tenderness to palpation of the left lower quadrant, without rebound guarding ecchymosis. MSK: Normal ambulation without pain at bony prominences or musculature. Generalized muscular atrophy in upper and lower extremities and temporal muscle wasting Neurological: Normal neurological examination on overview, without obvious CN II-XII abnormalities. Results Labs 01/17/25 09:19 01/17/25 09:19 Labs: Laboratory Results - last 24 hr 01/17/25 01/17/25 09:18 09:19 MCV 90.7 MCH 30.5 MCHC 33.6 RDW 17.2 H Plt Count 99 L MPV 10.4 Immature Gran % (Auto) 0.2 Neut % (Auto) 54.3 Lymph % (Auto) 31.7 [place] % (Auto) 10.8 Eos % (Auto) 1.5 Baso % (Auto) 1.5 Lymph # (Auto) 1.3 [place] # (Auto) 0.4 Eos # (Auto) 0.1 Baso # (Auto) 0.1 Abs Immat Gran (auto) 0.01 Absolute Neuts (auto) 2.2 Absolute Nucleated RBC 0.000 Nucleated RBC % (auto) 0.0 Anion Gap 15 Estim Creat Clear Calc 101.5 Estimated GFR > 60 Random Glucose 82 Calcium 7.8 L D Magnesium 1.2 L* Total Bilirubin 1.4 H Direct Bilirubin 0.8 H AST 205 H ALT 88 H Alkaline Phosphatase 199 H Troponin I High Sens 6.3 D Total Protein 6.7 Albumin 3.6 Lipase 28 Ethyl Alcohol 354 H* Influenza Type A (PCR) NEGATIVE Influenza Type B (PCR) NEGATIVE RSV RNA Qual (PCR) NEGATIVE SARS-CoV-2 RNA (RT-PCR) NEGATIVE Imaging Radiologist's Impressions: Impressions Chest X-Ray 01/17/25 09:26 IMPRESSION: No acute cardiopulmonary abnormality. IMPRESSION: Unremarkable examination. Electronically signed by: Caleb Arias MD 01/17/2025 09:34 AM [facility] Assessment and Plan (1) Alcohol abuse: Status: Acute (2) Alcohol intoxication: Qualifiers: Complication of substance-induced condition: with unspecified complication Qualified Code(s): F10.929 - Alcohol use, unspecified with intoxication, unspecified Status: Acute (3) Hypomagnesemia: Status: Acute (4) Alcohol withdrawal: Qualifiers: Complication of substance-induced condition: with unspecified complication Qualified Code(s): F10.939 - Alcohol use, unspecified with withdrawal, unspecified Status: Acute (5) DVT (deep venous thrombosis): Qualifiers: DVT location: lower extremity Affected thrombotic vein of extremity: unspecified vein of extremity Chronicity: chronic Laterality: unspecified laterality Qualified Code(s): I82.509 - Chronic embolism and thrombosis of unspecified deep veins of unspecified lower extremity Status: Acute (6) Presence of IVC filter: Status: Acute (7) Neuropathy: Status: Acute (8) COPD (chronic obstructive pulmonary disease): Qualifiers: COPD type: unspecified COPD Qualified Code(s): J44.9 - Chronic obstructive pulmonary disease, unspecified Status: Acute (9) Smoker: Status: Acute (10) Alcoholic hepatitis: Qualifiers: Ascites presence: unspecified Qualified Code(s): K70.10 - Alcoholic hepatitis without ascites Status: Acute (11) Pancytopenia: Status: Acute (12) UGIB (upper gastrointestinal bleed): Status: Acute Plan 64-year-old male with a history of EtOH use disorder, tobacco use disorder, DVT on Eliquis, COPD not on home supplemental oxygen, peripheral neuropathy, presents with complaints of atypical chest pain and nausea and seeking rehabilitation for EtOH abuse, admitted with EtOH intoxication & withdrawal with severe electrolyte deficiencies and alcoholic hepatitis. EtOH Abuse ETOH intoxication EtOH Withdrawal PLAN - CIWA - Phenobarbital withdrawal protocol - Thiamine IV 400mg x3 days - Thiamine 100mg OD PO after x3 days - Folic acid - Addiction medicine consultation Suspected upper GI bleed Melena Endorses black tarry stools ongoing for the past 3 days, with associated epigastric pain PLAN - pantoprazole 40 mg b.i.d. IV - gastroenterology consultation placed - holding apixaban and VTE prophylaxis Hypomagnesemia Hypokalemia Failure to thrive in adult PLAN - K >4 - Mg >2 - repeat BMP - dietitian consultation Alcoholic hepatitis Maddrey's Discriminant Function score: [] Evaluation for hepatic dysfunction ongoing PLAN - US liver - Trend LFTs History of DVT History of IVC filter placement On Anticoagulation PLAN - Check INR given ETOH abuse and prior elevation - holding apixaban and VTE prophylaxis Pancytopenia - Leukopenia - Anemia - Thrombocytopenia Etiologically possibly 2/2 bone marrow suppression in setting of ETOH abuse Other possible pathology could be superimposed such as MDS PLAN - outpatient evaluation with Hematology/Oncology Smoker Smoking cessation counseling provided Patient refuses nicotine patch or other chemical supports QUALITY METRICS - VTE: SCDs - CODE STATUS: Full code - DIET: Regular - transition to liquid diet Quality Stroke Does the patient have a stroke diagnosis?: No VTE Prior VTE?: Yes VTE Risk Level:: Medical - moderate - high VTE Device Contraindication: N/A - Device Ordered VTE Drug Contraindication: Treatment Not Indicated (contraindicated )
--- NOTE | 2025-01-17 12:12 | PHA.MEDREC ---
Pharmacy Consult ? Medication Reconciliation Pharmacy has completed the medication reconciliation. Spoke with patient in the ED, he was a bit hard to get information out of. Patient states he does definitely take the Eliquis, hydroxyzine prn , rescue inhaler, naltrexone and melatonin. Patient has also been filling Prazosin, Sertraline, mirtazapine, buspar and gapapentin but denies taking these medications. Added all of these medications to med [facility] because it looks like he should be on them and contacted Dr. Chatman to notify him of all of the above info. Tried also calling the patients son who did not answer.
[2025-01-17 12:30] LABS: INTERNATIONAL NORM RATIO 1.1 (0.9-1.1); Prothrombin Time 13.3 SEC (11.2-13.5)
--- NOTE | 2025-01-17 12:35 | PC.NURSE ---
patient medicated per order
--- NOTE | 2025-01-17 13:21 | MHC.CARE ---
CARE team informed by ED provider patient will be medical admit, Alphonso dos santos was called notified.
--- NOTE | 2025-01-17 13:44 | PC.NURSE ---
per verbal request of hospitalist, pt was put in for clear liquid diet.
[2025-01-17 14:00] VITALS: BP 102/70; PULSE 91; RESP 18; TEMP 37.2; O2SAT 93
[2025-01-17] MEDS: PHENobarbitaL sodium 130 MG/ML VIAL IM Q3Hx2 190 MG IM ×2 (14:01→16:52)
[2025-01-17] MEDS: 0.9 % Sodium Chloride Flush 3 ML SYRINGE IVFLUSH ×2 (16:11→21:04)
--- NOTE | 2025-01-17 16:13 | PC.NURSE ---
pt a&ox2, cooker mechanic intact- nsr/sinus tach, pt medicated for nausea,call goetz within reach, plan of care ongoing
[2025-01-17 16:28] LABS: Anion Gap 16 (12-20); Blood Urea Nitrogen 9 mg/dL (9-16); Calcium 7.6 mg/dL (8.4-10.2); Carbon Dioxide 25 mmol/L (22-29); Chloride 98 mmol/L (96-108); Creatinine Clr Calc Pharmacy 106.3; Estimated Glomerular Filt Rate > 60; Magnesium 1.6 mg/dL (1.6-2.6); Potassium 2.9 mmol/L (3.3-5.1); Sodium 136 mmol/L (135-145)
--- OUTSIDE RECORDS SUMMARY | 2025-01-17 16:33 | XMS_ITS | Data Portability ---
Author Organization [facility], Main Office Address [address] [facility], [address] [place] [address] Care Team Providers Care Metrology Specialist Name Role Phone LAM BARAJAS - 2ND [...] deep vein thrombosis of lower extremitie s [id number] Active 2017 IVC FILTER IN 2017 and bilateral thrombolys is SHELBI STREETER [address] [facility], [address], [place], [address] [place] [address] 8 12:36:34 Alcohol withdrawal delirium 1645918 Active [address] [facility] 8 10:43:30 Chronic obstructiv e pulmonary disease 14506161 Active [address] [facility] 8 10:43:38 Aspiration pneumonia 118301592 Active [address] [facility] 8 10:43:47 Urinary tract infectious disease 56818370 Active [address] [facility] 8 10:44:01 Tobacco dependence syndrome 45608925 Active [address] [facility] 8 10:44:11 Peripheral nerve disease 318955488 Active 2017 Viridiana Miller brigid, [facility] 8 10:44:19 Anemia 076183005 Active 2017 Viridiana rainey, [facility] 8 10:44:24 Thrombocyt openic disorder 375387621 Active [address] , [address], [place], [address], [facility] 8 12:35:04 Chronic hepatitis 55261938 Active [address], [place], [address], [facility] 8 12:35:27 Alcohol dependence 65494760 Active 2017 Giovani Juarez MD [address] [facility], [address], [place], [address], [facility] 8 12:06:43 Left upper quadrant pain 828240103 Active 2017 SHELBI Daly [address] , [address], [place], [address], [facility] 8 15:19:12 Cellulitis of buttock 80432564 Active 2022 ELIZABETH JACKSON NP [address] [facility], [address], [place], [address], [facility] 3 13:40:37 Harmful pattern of use of alcohol 44346852 Active 2022 ELIZABETH JACKSON NP [address], [address], [place], [address], [facility] 3 13:41:13 Open wound of buttock 059987419 Active 2022 ELIZABETH JACKSON NP [address], [address], [place], [address], [facility] 3 13:43:26 Problem Notes None recorded. Medical Equipment None Reported. Allergies Allergen ID Allergen Name Allergen Category Reaction Reaction Severity Criticality Documentation Date Start Date Code Code System Note Provider Name and Address Organization Details Recorded Time 80050 peanut allergeni c extract food,medi cation Not available Not available Not available 10/15/2022 93935 8 RxNorm peanu t butte r, facia l tere JACKSON NP [address] [facility], [address], [place], [address], [facility] 3 13:39:42 36634 raspberry extract food,medi cation Not available Not available Not available 10/15/2022 95252 69 RxNorm facia l tere JACKSON NP [address] [facility], [address], [place], [address], [facility] 3 13:40:02 Vitals Date Recorded Heart rate Respiratory rate Body temperature Systolic And Diastolic Provider Name and Address Organization Details Last Updated DateTime 10/15/2022 73 /min 18 /min 98.3 [degF] 91/55 mm[Hg] ELIZABETH JACKSON NP [address] [facility], [address], [place], [address], [facility] 3 13:33:48 Date Recorded Body temperature Oxygen saturation Oxygen saturation in Arterial blood by Pulse oximetry Heart rate Systolic And Diastolic Provider Name and Address Organization Details Last Updated DateTime 3 98.3 [degF] 94 % 94 % 73 /min 91/55 mm[Hg] Cecilia Tucker MD [address] [facility], [address], [place], [address], [facility] 3 06:30:21 Date Recorded Body weight Heart rate Respiratory rate Body temperature Oxygen saturation Oxygen saturation in Arterial blood by Pulse oximetry Systolic And Diastolic Provider Name and Address Organization Details Last Updated DateTime 3 63076.7 2 g 73 /min 18 /min 98.3 [degF] 94 % 94 % 91/55 mm[Hg] Violette Newell NP [address] [facility], [address], [place], [address], [facility] 3 11:10:43 Date Recorded Body weight Heart rate Respiratory rate Body temperature Oxygen saturation Oxygen saturation in Arterial blood by Pulse oximetry Systolic And Diastolic Provider Name and Address Organization Details Last Updated DateTime 3 64898.7 2 g 73 /min 18 /min 98.3 [degF] 94 % 94 % 91/55 mm[Hg] Violette Newell NP [address] [facility], [address], [place], [address], [facility] [employer] [facility] 3 12:59:44 Date Recorded Body weight Heart rate Respiratory rate Body temperature Oxygen saturation Oxygen saturation in Arterial blood by Pulse oximetry Systolic And Diastolic Provider Name and Address Organization Details Last Updated DateTime 3 67744.7 2 g 73 /min 18 /min 98.3 [degF] 94 % 94 % 91/55 mm[Hg] Violette Newell NP [address] [facility], [facility] [address], [place], [address], [facility] [employer] [facility] 3 10:56:55 Social History Question Answer Notes LastModified by Organizat ion Details LastModified Time Tobacco Smoking Status Current Every Day Smoker Viridiana rainey, [facility] 05/19/2017 10:55:27 Do You Have An Advance Directive? Yes [email or web address] Information not available 10/15/2022 How Many Years Have You Consumed Alcohol? 44 Information not available 05/19/2017 What Is Your Code Status? Full Code [email or web address] Information not available 10/15/2022 Which Illicit Or Recreational Drugs Have You Used? Marijuana [email or web address] Information not available 10/15/2022 How Many Days In The Past Year Have You Had A Heavy Drinking Consumption (4+ Female, 5+ Male)? 365 Drinks 1 Pint Of [place] And 2 Nips/day, Longest Period Of Sobriety 6 Mos Information not available 05/19/2017 Do You Have A Medical Power Of Fisher Purse Seine? Yes Information not available 05/19/2017 What Was The Date Of Your Most Recent Tobacco Screening? 10/15/2022 [email or web address] Information not available 10/15/2022 How Much Tobacco Do You Smoke? 1 PPD Information not available 05/19/2017 How Many Years Have You Smoked Tobacco? 40 Information not available 05/19/2017 Sex: Unknown Functional Status Question Answer Note LastModified by Organizat ion Details LastModified Time Do you use any illicit or recreational drugs? Yes [email or web address] Information not available 10/15/2022 What is your level of alcohol consumption? Heavy Information not available 05/19/2017 Mental Status None recorded. Family History Nothing Reported Notes:N/C Medical History No medical history recorded. Immunizations Vaccine Type Date Status Note Provider Nam e and Address Organization Details Recorded Time COVID-19 vaccine, vector-nr, rS-Ad26, PF, 0.5 mL 2 completed [facility] 10/22/2022 16:48:27 Tdap 2 completed [facility] 10/22/2022 16:48:42 pneumococcal polysaccharide PPV23 1 completed [facility] 05/27/2023 13:19:59 influenza, unspecified formulation 3 completed [facility] 05/27/2023 13:21:04 influenza, unspecified formulation 4 completed [facility] 05/27/2023 13:21:19 SARS-COV-2 (COVID-19) vaccine, UNSPECIFIED 3 completed [facility] 05/27/2023 13:21:41 Past Encounters Encounter ID Performer Location Encounter Start Date Encounter Closed Date Diagnosis/Indication Diagnosis SNOMED-CT Code Diagnosis ICD10 Code Diagnosis IMO Codes Diagnosis Note [id number] [address] [place] [address] 05/19/2017 10:32:28 05/25/2017 14:07:44 Bilateral deep vein thrombosis of lower extremities 393141592 I82.493 See HPIs/p IVC filter Dec, s/p EKOS catheter thrombolys is 3/2Eliquis 10 mg BID until 05/22 then 5 mg BIDMonitor for increase in pain/edema PT/OT eval and treat Alcohol wi thdrawal delirium 7283423 F10.231 Hx of heavy alcohol use with DTs in hospitalRi speridone 0.25 mg TIDThiamin e 100 mg dailyFolic acid 1 mg dailyMonit or moodNEG consult prn Aspiration pneumonia 422 301097 J69.0 Augmentin to complete courseAdd probioticA spiration precaution sSLP eval and treat Urinary tr act infectious disease 76844111 N30.00 Complete antibiotic as aboveMonit or sxs Chronic ob structive pulmonary disease 22767544 J41.8 Duonebs prnSupplem ental O2 prnMonitor respirator y status Tobacco de pendence syndrome 19418427 F17.210 Nicotine patchEncou rage smoking cessation Peripheral nerve disease 338874590 G64 Secondary to ETOH abuseMonit or sxs Anemia 961831042 D64.89 Repeat and monitor CBC [id number] MD MARKUS Melchor [address] [place] [address] 05/24/2017 10:26:07 05/26/2017 12:52:00 Bilateral deep vein thrombosis of lower extremities 993505963 I82.493 see HPIEliquis 5 mg bidmonitor with restart of medication on dose decreasing from 10 mg bid Alcohol wi thdrawal delirium 9207852 F10.231 see HPIthiamin e 100 mg qdmonitor for sx Tinea cruris 832556247 B 35.6 nystatin powdermoni tor to resolution Peripheral nerve disease 792298684 G64 start neurontin 100 mg tidtitrate for effect Urinary tr act infectious disease 89782052 N10 complete abmonitor for sx Chronic ob structive pulmonary disease 89671911 J41.1 at baselineco [place]tin[place] [id number] Viridiana Miller, SHELBI JOYA [address] [place] [address] 06/01/2017 10:32:02 06/10/2017 14:19:14 Bilateral deep vein thrombosis of lower extremities 416255843 I82.493 see HPIEliquis 5 mg bidF/u with PCP Alcohol wi thdrawal delirium 9374308 F10.231 see HPIthiamin e 100 mg qdd/c risperidal Home services in place with social work and psych consults madePatien t motivated to remain sober Peripheral nerve disease 668223437 G64 Increase neurontin 200 mg tidf/u with PCP Urinary tr act infectious disease 92019024 N10 antibiotic course completeap pears resolved Chronic ob structive pulmonary disease 51701438 J41.1 at baselineco [place]tin[place] [id number] [address] 09/16/2017 12:30:46 09/28/2017 15:08:07 Chronic hepatitis 06678412 K70.10 PT/OT eval and treatfollo w LFTsencour age ETOH abstinence psych eval and treat for abstinence follow up with GI prn Thrombocyt openic disorder 267695515 D69.59 monitor labsPlts corrected currently from 70 to 203 Chronic ob structive pulmonary disease 78801393 J41.8 duoneb q 4 hrs prnmonitor respirator y status Peripheral nerve disease 320276885 G64 neurontin 300 mg q 8 hrswill change to 300 mg q 9 am and 2 pm and 600 mg q hsc/o foot pain increased at nightmonit or pain Bilateral deep vein thrombosis of lower extremities 600630664 I82.593 eliquis 2.5 mg bidIVC filter in placemonit or labs Alcohol wi thdrawal delirium 1789839 F10.231 folic acid 1 mg qdmultivit e qdthiamine qdmonitor for withdrawal ativan 0.5 mg q 4 hrs prn added Tobacco de pendence syndrome 87304880 F17.210 nicotine patch 21 mg/24 hr qdmonitor for withdrawal [id number] MD ASHLEY Melchor AT [address] [address] 09/18/2017 12:00:41 09/28/2017 15:44:02 Asthenia 54562831 R53.1 see HPIPT OT eval and treatmonit or lytes Chronic hepatitis 392201 07 K73.2 see HPIseconda ry to ETOHGI eval prn Alcohol dependence 25409 003 F10.288 extended discussion with patient concerning use of etoh and effect on health. when patient returned after SNF stay in 05/16 again began drinking 1 pint and 1 nip per daypatient states understand ing that continuing with prior drinking habits will result in Thrombocyt openic disorder 985727163 D69.59 repeat and monitor cbc Bilateral deep vein thrombosis of lower extremities 638510353 I82.493 see HPIEliquis 2.5 mg bidmonitor with restart of medication IVC filter in place Chronic ob structive pulmonary disease 69613610 J41.1 at baselinedu onebs in place [place] [id number] [address] [address] 09/20/2017 16:11:59 09/28/2017 15:48:42 Chronic hepatitis 64254110 K70.10 PT/OT eval and treatfollo w LFTs weekly and once he is outpt with pcpencoura ge ETOH abstinence follow up with GI prnwill get ortho BPs bid x 2 days Thrombocyt openic disorder 854505945 D69.59 monitor labs, improved Chronic ob structive pulmonary disease 77606558 J41.8 duoneb q 4 hrs prnmonitor respirator y statusenco urage pt to stop smoking Peripheral nerve disease 907073202 G64 neurontin 300 mg q 9 am and 2 pm and 600 mg q hsmonitor pain Bilateral deep vein thrombosis of lower extremities 349075902 I82.593 eliquis 2.5 mg bidIVC filter in placemonit or labs Alcohol wi thdrawal delirium 9321391 F10.231 folic acid 1 mg qdmultivit e qdthiamine qdativan 0.5 mg q 4 hrs prn Tobacco de pendence syndrome 70554830 F17.210 nicotine patch 21 mg/24 hr qd [id number] SHE[address]aly AT [address] [address] 09/21/2017 15:09:20 09/28/2017 16:05:00 Alcohol dependence 04103516 F10.20 ok to dc home tomorrowst rongly encouraged abstinence /AA Chronic hepatitis 674633 07 K70.10 encourage ETOH abstinence follow up with GI prn and pcp Bilateral deep vein thrombosis of lower extremities 667371735 I82.593 eliquis 2.5 mg bidIVC filter in place Chronic ob structive pulmonary disease 29408694 J41.8 duoneb q 4 hrs prnencoura ge pt to stop smoking Left upper quadrant pain 384946415 R10.12 pt will f/u with PCP as out pt for further testing if needed [id number] SHE[address] Daly AT [address] [address] 10/02/2017 16:10:48 10/20/2017 12:10:03 Alcohol dependence 91673857 F10.20 see hpiPT OT for conditioni ng and mobilityst rongly encouraged abstinence Chronic ob structive pulmonary disease 89140030 J41.8 duoneb q 4 hrs prnencoura ge pt to stop smoking Anemia 221453990 D64.9 monitor cbc Peripheral nerve disease 869920976 G64 neurontin 300 mg q 9 am and 2 pm and 600 mg q hsmonitor pain Bilateral deep vein thrombosis of lower extremities 655797524 I82.593 resume eliquis 2.5 mg bidIVC filter in placedue to alcoholism he would not be a candidate for coumadin [id number] MD ASHLEY Melchor AT [address] [address] 10/05/2017 15:13:51 10/20/2017 13:22:05 Asthenia 14821489 R53.1 see HPImultifa ctorial PT OT eval and treatmonit or lytes Alcohol dependence 50509 003 F10.288 Repeat extended discussion with patient concerning use of etoh and effect on health. patient states understand ing that continuing with prior drinking habits will result in Chronic hepatitis 127427 07 K73.2 see HPIseconda ry to ETOHGI eval prn Bilateral deep vein thrombosis of lower extremities 070910439 I82.493 see HPIEliquis 2.5 mg bidmonitor with restart of medication IVC filter in place Peripheral nerve disease 973978925 G64 increase gabapentin to 300 mg tidmonitor for effect [id number] [address] 10/07/2017 14:48:18 10/20/2017 14:00:14 Alcohol dependence 59669691 F10.288 encouraged to abstain from ETOHfollow up with PCP Chronic hepatitis 958938 07 K73.2 secondary to ETOHfollow up with PCP Bilateral deep vein thrombosis of lower extremities 375834816 I82.493 Eliquis 2.5 mg bidspoke with him at length about needing to contact PCP and pharmacy to get prior authorizat ion form for eliquisIVC filter in placefollo w up with PCP Peripheral nerve disease 290708532 G64 gabapentin to 300 mg tidtylenol as neededfoll ow up with PCP [id number] ELIZABETH JACKSON NP [address] [address] 10/15/2022 13:30:52 10/20/2022 10:25:28 Cellulitis of buttock 27888585 L03.317 Continue levaquin 500 mg daily x 3 daysAdd probiotic bid x 7 daysStill with inflammati on/indurat ion around woundTrend sx., VS, labsCBC, BMP q wednesday Alcohol dependence 31312 003 F10.288 s/p phenobarb protocol in hosp., no sx. of withdrawal Encourage abstinence Open wound of buttock 26 2316611 S31.829A With associated abscess and cellulitis Debrided 10/08Finish abx. as aboveCurre nt tx. moist kerlix and DCD daily and prnRefer to [facility] wound clinic for eval and tx. - pt. concerned about transporta tion - if too expensive can refer to Wound team hereMonito r wound, VS, labs for change Chronic ob structive pulmonary disease 59012271 J41.8 Combivent respimat 1 inh qid prnAlbuter ol MDI q4 hr prn - requesting to keep at bedside and self administer Continues to smoke Tobacco de pendence syndrome 92173522 F17.210 Continues to smoke hereEnc. abstinence Bilateral deep vein thrombosis of lower extremities 081493110 I82.493 eliquis 5 mg bids/p IVCmonitor [id number] Cecilia Tucker MD [facility] [address] [address] 10/19/2022 06:26:38 10/23/2022 13:52:00 Harmful pattern of use of alcohol 44024539 F10.10 social studies department chair for 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 for sobrietyth iamine 100 mg dailyfolic acid 1 mg dailyMVI dailywill monitor Open wound of buttock 26 6867303 S31.829A s/p I&Dantibio tics completedw ound care per surgery recommenda tionsfollo w up wound clinic Chronic ob structive pulmonary disease 39468349 J41.8 Combivent 18-103: 1 puff q6h prnalbuter ol HFA: 1 puff q4h prnwill monitor Asthenia 34072624 R53.1 PT/OTwill monitor and support s needed History of deep vein thrombosis 250642722 Z86.718 apixaban 5 mg bidwill monitor [id number] Violette Newell NP [facility] [address] [address] 10/22/2022 11:09:43 10/26/2022 10:58:25 Harmful pattern of use of alcohol 04753704 F10.10 social studies department chair for 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 for sobrietyno tremor noted, anxious at baselineth iamine 100 mg dailyfolic acid 1 mg dailyMVI dailywill monitor Open wound of buttock 26 2560741 S31.829A s/p I&D on 10/08/22 and po antibiotic s completed for cellulitis wound care per surgery recommenda tionsfollo w up wound clinic and dressings dailymonit or cbc and labs weekly Chronic ob structive pulmonary disease 51925804 J41.8 Combivent 18-103: 1 puff q6h prnalbuter ol HFA: 1 puff q4h prnwill monitor Asthenia 72218074 R53.1 PT/OTwill monitor and support s needed History of deep vein thrombosis 451940516 Z86.718 apixaban 5 mg bids/p ivc filterwill monitor Alcohol dependence 88344 003 F10.288 s/p phenobarb protocol in hosp., no sx. of withdrawal Encourage abstinence Tobacco de pendence syndrome 41989083 F17.210 Continues to smoke hererefuse s nicotine patchEnc. abstinence [id number] Violette Newell NP [facility] [address] [address] 10/26/2022 12:59:02 10/28/2022 08:31:09 Open wound of buttock 500308736 S31.829A s/p I&D on 10/08/22IV and po antibiotic s completed for cellulitis wound care per surgery recommenda tionsfollo w up wound clinic and dressings dailymonit or cbc and labs weekly Harmful pa ttern of use of alcohol 67214836 F10.10 social studies department chair for 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 for sobrietyno tremor noted, anxious at baselineth iamine 100 mg dailyfolic acid 1 mg dailyMVI dailywill monitor Chronic ob structive pulmonary disease 71706175 J41.8 Combivent 18-103: 1 puff q6h prnalbuter ol HFA: 1 puff q4h prnwill monitor Asthenia 16527810 R53.1 PT/OTwill monitor and support s needed History of deep vein thrombosis 329419086 Z86.718 apixaban 5 mg bids/p ivc filterwill monitor Alcohol dependence 43386 003 F10.288 s/p phenobarb protocol in hosp., no sx. of withdrawal Encourage abstinence Tobacco de pendence syndrome 96738434 F17.210 Continues to smoke here now on scheduled breaks with staffrefus es nicotine patchEnc. abstinence Intertrigo 00380794 L30. 4 nystatin topically powder bid and prn x 14 daysmonito r Neuropathy 324582199 G62 .[address] DeL a Cruz this weekend09/30 8 she recommends 2% gel diclofenac topically 2 gram to bilateral feet bid, will agree todaymonit or for relief [id number] [facility] [address] 10/27/2022 10:55:47 10/29/2022 09:47:39 Open wound of buttock 394707588 S31.829A s/p I&D on 10/08/22IV and po antibiotic s completed for cellulitis follow up wound clinic and dressings every 3rd day with stacy ng to wound REGISTERED PRIVATE DUTY NURSE herecurren t order to left buttock wound irrigiate with wound wash, pack with hydrofera blue-moist en with ns, squeeze excess out. cover wtih zetuvit plus silicone bordered dressing q 3 dayscont protein liquid or supplement s to add in wound healingmon itor outpt with pcp and vna Intertrigo 33751075 L30. 4 nystatin topically powder bid and prn until healedvna to assess for resolution monitor outpt Neuropathy 118330840 G62 .[address] De La Cruz this weekend2% gel diclofenac topically 2 gram to bilateral feet bidmonitor for relief outpt, pt/ ot to assess for safety, strengthen ing and balance Harmful pa ttern of use of alcohol 71682835 F10.10 social studies department chair for 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 for sobrietyno tremor noted, anxious at baselineth iamine 100 mg dailyfolic acid 1 mg dailyMVI dailywill monitor outpt with pcp Chronic ob structive pulmonary disease 70757414 J41.8 Combivent 18-103: 1 puff q6h prnalbuter ol HFA: 1 puff q4h prnmonitor outpt with pcp Asthenia 12689923 R53.1 improved herewill monitor and support s needed outptmonit or outpt, pt/ ot to assess for safety, strengthen ing and balance, offloading pressure to wound, and safety conditions at home History of deep vein thrombosis 572650355 Z86.718 apixaban 5 mg bids/p ivc filterwill monitor outpt Alcohol dependence 37129 003 F10.288 s/p phenobarb protocol in hosp., no sx. of withdrawal Encourage abstinence outpt and services as needed Tobacco de pendence syndrome 72287798 F17.210 Continues to smoke here now on [...] Ruiz Member ID Guarantor Name 10/14/2022 1 [facility] (MEDICAID HMO) [id number] Edgardo Zavala [id number] Edgardo Zavala 10/26/2022 1 [facility] - DOS ON OR AFTER 2022 - MEDICARE ADVANTAGE [place] (MEDICARE REPLACEMENT/ADV ANTAGE - PPO) Edgardo Zavala [id number] Edgardo Zavala Notes Date Note Type Note Provider Name and Address Organization Details Recorded Time 10/15/2022 text/html Edgardo is seen today for initial intake. He is a 62 yo male admitted to [facility] 10/14/22 from [facility] for continued care and rehab after a brief hosp. related to a buttock wound and cellulitis. He presented to [facility] 10/07 with several [...] covered with DCD. Needs follow up with [facility] wound clinic, ? wound vac. Upon d/c abx. changed to levaquin x 3 more days.DVT - remained on eliquisTobacco use - nicoderm patchCOPD - stable PMH: ETOH abuse, anemia, BLE DVTs IVC filter 2016 and bilat. thrombolysis, chronic hepatitis, COPD, PVD, thrombocytopenia, tobacco use, UTIMOLST: full code ELIZABETH JACKSON, ARNOLD [address] [facility], [address], [place], [address], [facility] [employer] 10/15/2022 14:49:09 10/19/2022 text/html This 62 year old man was admitted to [facility] on 10/14/22for rehab and continued care. 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 He was having several days [...] - signed 10/15/22 Cecilia Tucker MD [address] [facility], [address], [place], [address], [facility] [employer] 10/19/2022 14:28:20 10/22/2022 text/html Patient is seen for an acute rounding visit today. 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 He was having several days [...] - signed 10/15/22 Violette Newell NP [address] [facility], [address], [place], [place], [id number], [facility] [employer] 10/22/2022 11:32:05 10/26/2022 text/html Patient is seen [...] 62 year old man was admitted to [facility] on 10/14/22for rehab and continued care after presenting to the ER at [facility] on 10/07/22. He was having several days [...] - signed 10/15/22 Violette Newell NP [address] [facility], [address], [place], [address], [place] - [facility] 10/26/2022 13:39:46 10/27/2022 text/html Patient is seen for a discharge summary visit today. Edgardo is a 62 year old man was admitted to [facility] on 10/14/22for rehab and continued care after presenting to the ER at [facility] on 10/07/22. He was having several days [...] 3 days now according to the wound REGISTERED PRIVATE DUTY NURSE. His groin is improving with the nystatin [...] - signed 10/15/22 Violette Newell NP [address] [facility], [address], [place], [id number], [facility] 10/28/2022 10:11:07
--- OUTSIDE RECORDS SUMMARY | 2025-01-17 16:33 | XMS_ITS | Data Portability ---
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) MDM HIGH MUST MEET 2 OUT OF [...] COVERED Not available 01/19/2024 11:54:32 03/22/2024 03/22/2024 [address] [place] [address] (SENIOR MOBILE APPLICATION DEVELOPER) MDM MODERATE MUST MEET 2 OUT OF [...] COVERED Not available 03/22/2024 11:36:53 05/19/2024 05/19/2024 [address] [place] [address] (SENIOR MOBILE APPLICATION DEVELOPER) MDM HIGH MUST MEET 2 OUT OF [...] COVERED Not available 05/19/2024 15:01:00 06/07/2024 06/07/2024 [address] [place] [address] (SENIOR MOBILE APPLICATION DEVELOPER) MDM MODERATE MUST MEET 2 OUT OF [...] COVERED Not available 06/07/2024 12:03:37 10/10/2024 10/10/2024 [address] [place] [address] (SENIOR MOBILE APPLICATION DEVELOPER) MDM MODERATE MUST MEET 2 OUT OF [...] D, 25-hydrox y, total, serum 2024 025 [facility], [address] [place] [address], [address], 05/26/2024 12:27:32 vitamin B12 + folate, serum or blood 2024 025 [facility], [address] [place] [address], [address], 05/22/2024 12:30:46 CMP, serum or plasma 2024 025 [facility], [address] [place] [address], [address], 05/22/2024 12:30:45 Referral orthopedi c surgeon referral 2024 025 aravnid Simpson MD, [address] [facility] [address], [place], [address], 06/14/2024 09:07:33 gastroent erologist referral - routine colonosco py 2024 025 aravind Parra MD, [address] [facility] [address], [place], [address], 06/20/2024 09:35:00 Procedures None recorded. Surgeries None recorded. Imaging XR, hand, 3 or more view 2024 025 [facility] (Central Sched[facility]), [address] [place], [address], 06/02/2024 08:24:58 MRI, shoulder, w/o contrast 2024 025 [facility] ([facility]), [address] [place], [address], 06/05/2024 08:26:15 XR, hand, 3 or more view 2023 024 [facility] ([facility] Sched[facility]), [address] [place], [address], 02/02/2024 08:29:38 Medication Orders triamcino lone acetonide 0.1 % topical cream 2024 025 [facility] #[id number], [address] [place], [address], 10/10/2024 16:46:57 azithromy keyana 250 mg tablet 2024 025 [facility] #[id number], [address] [place], [address], 06/07/2024 12:12:19 azithromy keyana 250 mg tablet 2024 025 [facility], [address] [place], [address], 05/19/2024 14:59:57 triamcino lone acetonide 0.1 % topical cream 2024 025 [facility], [address] [place], [address], 05/19/2024 15:02:20 triamcino lone acetonide 0.1 % topical cream 2023 024 [facility] #[id number], [address] [place], [address], 01/19/2024 11:51:47 Multivita min 50 Plus tablet 2023 024 [facility] #[id number], [address] [place], [address], 01/19/2024 11:50:00 Patient TargetsNo targets recorded. Patient Instructions Encounter Date Encounter Id Patient Instructions Last Modified By Organization Details Last Modified Time 01/19/2024 [id number] chronic obstructive pulmonary disease (COPD): care instructions Not available 01/19/2024 11:49:57 learning about copd and how to prevent lung infections Not available 01/19/2024 11:49:57 pulse oximetry* Not available 01/19/2024 11:49:57 neuropathic pain : care instructions Not available 01/19/2024 11:49:57 03/22/2024 [id number] pulse oximetry* CARLOS Not available 03/22/2024 11:49:54 05/19/2024 [id number] pulse oximetry* Not available 05/19/2024 14:59:35 dislocated shoulder: care instructions Not available 05/19/2024 14:59:35 shoulder dislocation: rehab exercises Not available 05/19/2024 14:59:35 neuropathic pain : care instructions Not available 05/19/2024 15:02:31 06/07/2024 [id number] pulse oximetry* CARLOS Not available 06/07/2024 11:42:18 10/10/2024 [id number] pulse oximetry* Not available 10/10/2024 16:46:54 Reason for Referral Teachers Assistant Referral for Screening for malignant neoplasm of colon routine colonoscopy Referring Physician: Cristhian Perez, Internal Medicine, Encounter Date: 05/19/2024 Orthopedic Surgeon Referral for Dislocation of shoulder joint Referring Physician: Cristhian Perez, Internal Medicine, Encounter Date: 06/07/2024 Results Created Date Observation Date Name Description Value Unit Range Abnormal Flag Note LastModifiedBy Organization Detail LastModifiedTime 01/19/20 24 01/19/2024 pulse oxime try* Result 92 Not Available [facility] [address] [place] [address] [place], [address], 01/14/2024 11:32:45 03/22/19 25 03/22/2024 pulse oxime try* Result 95 Not Available [facility] [address] [place] [address] D, [place], [address], 03/14/2024 11:54:52 05/20/19 25 05/19/2024 pulse oxime try* Result 91% Not Available [facility] [address] [facility] [address], [place], [address], 05/17/2024 16:20:55 06/08/19 25 06/07/2024 pulse oxime try* Result 93 Not Available [facility] [address] [facility] [address], [place], [address], 06/04/2024 08:15:20 10/11/1910/10/2024 pulse oxime try* Result 97 Not Available [facility] [address] [facility] [address], [place], [address], 10/10/2024 07:45:39 06/06/19 25 06/01/2024 MRI, shoul georgina, w/o contr ast No observ ation record ed. [facility] [address] [place], [address], 06/05/2024 15:20:13 10/27/19 25 10/26/2024 XR, shoul georgina No observ ation record ed. [address] (Medical Records) [address] [place], [address], 10/27/2024 09:20:23 10/27/19 25 10/26/2024 CT, angio gram, chest + abdom en + pelvi s, w/ contr ast No observ ation record ed. [address] (Medical Records) [address] [place], [address], 10/27/2024 09:20:53 10/28/19 25 10/26/2024 CT, angio gram, chest , w/ contr ast No observ ation record ed. [email or web address] [facility] (Medical Records) [address] [place], [address], 10/27/2024 10:02:41 12/19/19 25 12/18/2024 imagi ng/di agnos tic resul t No observ ation record ed. [email or web address] [facility] (Medical Records) [address] [place], [address], 12/19/2024 08:50:10 01/05/20 25 01/04/2025 XR, chest , 2 view No observ ation record ed. [facility] (Medical Records) [address] [place], [address], 01/04/2025 16:40:25 Result Notes None recorded. Problems Name Problem SNOMED Code Status Onset Date Resolution Date Notes Provider Name and Address Organization Details Recorded Time Chronic obstructi ve pulmonary disease 55036169 [facility] 15:16:29 Neuropath y 712308689 [facility] 15:16:41 G[facility] 67887644 [facility] 15:16:48 History of gallstone s 418021700 Active 2018 [facility] 9 15:17:04 History of deep vein thrombosi s 861724563 Active 2018 s/p IVC filter May Dalton, KAMLESH [address] [place], [address], [facility] 9 14:35:19 Harmful pattern of use of alcohol 02763461 Active 2018 Kimberly Coelho NP, S [address] [place], [address], [facility] 9 16:45:28 Tobacco dependenc e syndrome 15860739 Active 2018 Kimberly Coelho NP, S [address] [place] [address], [address], [facility] 9 16:13:47 Tinea corporis 98449908 Active 2023 Cristhian Perez DO [address] [place] [address], [address], [facility] 4 12:10:21 Insomnia 567338892 Active 2023 Cristhian Perez DO [address] [place] [address], [address], [facility] 4 12:17:44 Secondary periphera l neuropath y 137305 Active 2023 Cristhian Perez DO [address] [place] [address], [address], [facility] 4 22:16:11 Acute exacerbat ion of chronic obstructi ve pulmonary disease 645044268 Active 2023 HIMA HUERTA [address] [place] [address], [address], [facility] 4 15:05:32 Generaliz ed rash 088710755 Active 2023 HIMA HUERTA [address] [place] [address], [address], [facility] 4 10:59:16 Depressiv e disorder 30476741 Active 2023 HIMA HUERTA [address] [place] [address], [address], [facility] 4 10:26:22 Eczema 07666820 Active 2023 Cristhian Perez DO [address] [place] [address], [address], [facility] 4 11:50:30 Pain of bilateral hands 27003845622 190408 Active 2023 Cristhian Perez DO [address] [place] [address], [address], [facility] 4 11:52:35 Pruritic rash 15053865 Active 2023 Cristhian Perez [address], [address], [facility] 4 21:26:20 COVID-19 473644197 Active 2024 Cristhian Perez [address], [address], [facility] 5 11:37:01 Nummular eczema 63572654 Active 2024 Cristhian Perez [address], [address], [facility] 5 14:51:23 Dislocati on of shoulder joint 514409250 Active 2024 Cristhian Perez [address], [address], [facility] 5 14:52:22 Dislocati on of shoulder joint 865494679 Active 2024 Cristhian Perez [address], [address], [facility] 5 14:52:26 Bilateral pain of joint of hands 38736085967 125147 Active 2024 Cristhian Perez DO [address] [place] [address], [address], [facility] 5 14:53:41 Eczema of lower leg 094992515 Active 2024 Cristhian Perez [address], [address], [facility] 5 16:55:51 Problem Notes None recorded. Medical Equipment None Reported. Allergies Allergen ID Allergen Name Allergen Category Reaction Reaction Severity Criticality Documentation Date Start Date Code Code System Note Provider Name and Address Organization Details Recorded Time 2905 peanut allergeni c extract food,medi cation Not available Not available Not available 05/11/2018 83081 8 RxNorm Sheila De Leon brigid [facility] 9 15:14:37 8332 Lyrenea medicatio n rash Not available Not available 11/15/20232023 11950 1 RxNorm Landry Dunbar brigid [facility] 4 10:28:00 8490 raspberry extract food,medi cation Not available Not available Not available 12/29/2023 95241 69 RxNorm HIMA HUERTA [address] [place], [address], [facility] 4 10:47:33 Medications Name Sig [...] Updated DateTime 5 171.45 cm 23.6 kg/m2 74182.6 3 g 71 /min 95 % 95 % 106/68 mm[Hg] Cristhian Perez, DO [address] [place], [address] [place] [address] 5 11:20:11 Date Recorded Body height Body mass index (BMI) Body weight Heart rate Oxygen saturation Oxygen saturation in Arterial blood by Pulse oximetry Systolic And Diastolic Provider Name and Address Organization Details Last Updated DateTime 5 171.45 cm 24.4 kg/m2 52628.6 7 g 81 /min 91 % 91 % 130/80 mm[Hg] Daphne Drew [facility] 5 14:36:10 Date Recorded Body height Heart rate Oxygen saturation Oxygen saturation in Arterial blood by Pulse oximetry Systolic And Diastolic Provider Name and Address Organization Details Last Updated DateTime 5 171.45 cm 77 /min 93 % 93 % 129/60 mm[Hg] Trina Alcantar [facility] 5 11:39:05 Date Recorded Body height Body mass index (BMI) Body weight Oxygen saturation Oxygen saturation in Arterial blood by Pulse oximetry Heart rate Systolic And Diastolic Provider Name and Address Organization Details Last Updated DateTime 5 171.45 cm 23.8 kg/m2 73461.2 2 g 97 % 97 % 78 /min 112/64 mm[Hg] SAM AWAD [facility] 5 16:15:29 Date Recorded Body height Body mass index (BMI) Body weight Heart rate Oxygen saturation Oxygen saturation in Arterial blood by Pulse oximetry Systolic And Diastolic Provider Name and Address Organization Details Last Updated DateTime 4 171.45 cm 23.6 kg/m2 53996.6 3 g 73 /min 92 % 92 % 110/80 mm[Hg] Trina Alcantar [facility] 4 11:13:34 Social History Question Answer Notes LastModified by Organizat ion Details LastModified Time Tobacco Smoking Status Current [facility] 15:18:01 What Was The Date [...] 0.5 mL 03/27/19 22 completed Not Available [facility] 08/15/2022 22:39:22 Tdap 08/04/19 22 completed Not Available [facility] 08/15/2022 22:39:22 pneumococcal polysaccharide PPV23 07/18/19 21 completed Not Available [facility] 08/15/2022 22:39:22 influenza, unspecified formulation 04/23/19 17 completed Not Available [facility] 08/15/2022 22:39:22 zoster recombinant 10/03/19 25 completed Cristhian Perez DO [address] [place] [address], [address], [facility] 10/10/2024 16:45:43 Past Encounters Encounter ID Performer Location Encounter Start Date Encounter Closed Date Diagnosis/Indication Diagnosis SNOMED-CT Code Diagnosis ICD10 Code Diagnosis IMO Codes Diagnosis Note Cristhian Perez DO [facility] [address] [facility] [address] 07/11/2018 15:02:42 07/11/2018 16:21:04 Alcohol dependence 20746276 F10.20 written scripts vivitrol 380 mg IM Q 4 weeks ( pharmacy not located in system ) Chronic ob structive pulmonary disease 93610962 J44.9 Harmful pa ttern of use of alcohol 43096355 F10.10 long discussion to avoid isolation Use senior center, library, social center to seek psychiatri st-pt prefers to do on own look for SMART meetings stay in contact w/positive people in life get outside and walk History of deep vein thrombosis 376106503 Z86.718 on Eliquis Neuropathy 588959057 G62 .9 gabapentin written & faxed 300 mg BID [id number] Cristhian Perez DO [facility] [address] [facility] [address] 09/28/2018 13:25:38 09/28/2018 14:06:07 Alcohol dependence 02217624 F10.20 currently in rehab Secondary peripheral neuropathy 806550 G63 2/2 etoh History of deep vein thrombosis 201728703 Z86.718 Tobacco de pendence syndrome 61418640 F17.200 [id number] Cristhian Perez [facility] [address] [facility], [place] [address] 10/26/2018 14:05:49 10/26/2018 16:00:43 History of deep vein thrombosis 012731588 Z86.718 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 has IVC filter Tobacco de pendence syndrome 73707140 F17.200 no plans to quit Neuropathy 762663940 G62 .9 gabapentin not helpful has low vitamin d will supplement then f.u Harmful pa ttern of use of alcohol 63692894 F10.10 currently sober x 9 days Acute conjunctivitis 537 37611 H10.31 current abx failure consider opth if second round not helpful Vitamin D deficiency 347 34861 E55.9 Onychomyco sis of toenails 090366705 B35.1 Screening procedure 2012 5006 Z13.9 Steatotic liver disease 913764138 K76.0 [id number] Cristhian Perez [facility] [address] [facility],[place] [address] 01/03/2019 10:26:01 01/03/2019 11:03:12 Secondary peripheral neuropathy 105495 G63 2/2 etoh Physical deconditioning 6542445257 9102 R68.89 Depressive disorder 3548 9007 F32.9 [id number] Cristhian Perez [facility] [address] [facility], [place] [address] 02/07/2019 13:17:51 02/07/2019 13:59:18 Acute folliculitis 480580768 L73.9 Secondary peripheral neuropathy 355527 G63 2/2 etoh no difference in neuropathy , will try to increase dose from 600 to 800 mg denies any drowsiness with the gabapentin still not drinking sx reportedly are worsening Depressive disorder 6838 9007 F32.9 feels the duloxetine has helped with his depression . declines any increase in the dose of his med he does sometimes feel depressed when he thinks about his son who doesn't visit Vitamin D deficiency 347 92995 E55.9 never received the letter regarding this lab result will send in vitamin d now also take vitamin d3 2000 units after completing this will recheck level in 12 weeks Tobacco user 116432556 Z 72.0 [id number] Cristhian Perez DO [facility] [address] [facility], [address] [facility] [address] 04/28/2019 15:03:46 04/28/2019 16:25:32 Chronic obstructive pulmonary disease 85104411 J44.9 acute exacerbati on of copd Secondary peripheral neuropathy 543293 G63 2/2 etoh no difference in neuropathy [...] who doesn't visit Vitamin D deficiency 347 51144 E55.9 completed the macrodose of vitamin d needs to start the vitamin d r Tobacco user 505142289 Z 72.0 Harmful pa ttern of use of alcohol 26802661 F10.10 currently sober again Gout 91234748 M10.9 History of deep vein thrombosis 273473308 Z86.718 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 has IVC filter Neuropathy 547364637 G62 .9 as above Alcohol dependence 62073 003 F10.20 sober Atopic dermatitis 563583 01 L20.9 Acute exac erbation of chronic obstructive pulmonary disease 199254944 J44.1 adonis, mitesh as above for rash + [place] [id number] Cristhian Perez DO [facility] [address] [facility] [address] [place] [address] 10/25/2019 15:02:33 10/25/2019 15:22:49 Harmful pattern of use of alcohol 04118759 F10.10 still drinking about 1 pint of hard liquor a day no plans on stopping or seeking help with this addiction advised to work on cutting back and drink water instead patient does not seem interested on doing this despite risks to his health will have patient call if he has another convulsio n Chronic ob structive pulmonary disease 43736844 J44.9 breathing is the same per patient not any worse, cough is the same as well Tobacco de pendence syndrome 05654738 F17.200 still smoking not ready to quit, no plans on quitting SARS-CoV-2 657361031 U07 .1 patient currently has a positive diagnosis of COVID told him to monitor symptoms and if he gets very sick again to go back to the hospital [id number] Cristhian Perez [facility] [address] [facility] [address] [facility] [place] [address] 01/03/2020 15:04:00 01/03/2020 16:04:29 Harmful pattern of use of alcohol 66451044 F10.10 still drinking about 2 pint of hard liquor a day did discuss with patient about setting up with a rehab center and working with his advisor patient was open to this idea and gave permission for me to speak with his advisor Alcohol withdrawal 73708 0000 F10.939 patient states every time he stops drinking he gets violently ill so him refuses to stop drinking at this point [id number] Cristhian Perez [facility] [address] [facility] [address] [place] [address] 03/06/2020 09:10:45 03/06/2020 15:51:21 Harmful pattern of use of alcohol 98468637 F10.10 still drinking about 2 pint of hard liquor a day did discuss with patient about setting up with a rehab center and working with his advisor patient unwilling to stop drinking because of the withdrawal afterwards did discuss in detail with pt that the drinking is contributi ng to his neurologic al issues Chronic ob structive pulmonary disease 68496238 J44.9 breathing is the same per patient not any worse, cough is the same as well does need refill of his inhalers Fall W19.XXXS patient reports he fell due to balance issues, weakness in nabila legs most likely related to his drinking will set him up with Dr. Aldana again for eval Injury of head 24285663 S09.90XS no LOC and CT at hospital showed no acute changes MRI done in april, will not need another MRI History of deep vein thrombosis 996397612 Z86.718 was on eliquis but stopped to do hx of brain bleed no ride to the hospital so he is unwilling to do a fu US to assess chronic DVT due to brain bleed because of blood thinner, he should not be on eliquis at this time but should have US to assess [id number] Cristhian Perez [facility] [address] [facility] [address] [facility] [address] 04/19/2020 08:38:20 04/22/2020 15:44:19 [id number] Cristhian Perez [facility] [address] [facility] [address] [facility] [place] [address] 06/12/2020 14:07:08 06/12/2020 15:18:50 Harmful pattern of use of alcohol 31458498 F10.10 still drinking about 2 pint of hard liquor a day did discuss with patient about setting up with a rehab center and working with his advisor patient unwilling to stop drinking because of the withdrawal afterwards did discuss in detail with pt that the drinking is contributi ng to his neurologic al issues Chronic ob structive pulmonary disease 65762239 J44.9 breathing is the same per patient not any worse, cough is the same as well Neuropathy 285094826 G62 .9 will try on the 800 mg qd as patient said this was effective will slowly tirtate up the medication dosage [id number] Cristhian Perez [facility] [address] [facility] [address] [facility] [address] 04/11/2021 14:50:50 04/11/2021 16:21:09 Chronic obstructive pulmonary disease 82584107 J41.0 breathing is the same per patient not any worse, cough is the same as well Alcohol withdrawal 23760 0000 F10.931 has not had a drink in 1 mo but does plan to drink again though per patient in moderation recommend ed to not drink at all Secondary peripheral neuropathy 352116 G63 restarted gabapentin Harmful pa ttern of use of alcohol 60648630 F10.121 monitoring progress with drinking Pain of le ft shoulder joint 3446149282 7691342 M25.512 improving with at home PT [id number] Cristhian Perez [facility] [address] [facility], [place] [address] 09/17/2023 10:23:16 09/17/2023 11:04:03 Depression screening 550689676 Z13.31 SCREENING NEGATIVE Harmful pa ttern of use of alcohol 58431221 F10.121 on naloxone campral buspar zoloft Gout 24987663 M10.9 quiet now Neuropathy 148111680 G62 .9 had been on gabapentin Chronic ob structive pulmonary disease 70364330 J41.0 he is stable on the inhalers [id number] Cristhian Perez [facility] [address] [facility], [place] [address] 10/18/2023 11:40:03 10/18/2023 12:58:27 Chronic obstructive pulmonary disease 82942047 J41.0 he is stable on the inhalers Harmful pa ttern of use of alcohol 50605578 F10.121 on naloxone campral buspar zoloft Tinea corporis 67555429 B35.4 between legs History of deep vein thrombosis 344185315 Z86.718 recurrent Insomnia 005873698 G47.0 0 [id number] [facility] [address] [place] [address],[place] [address] 11/30/2023 10:27:17 11/30/2023 15:30:22 Acute exacerbation of chronic obstructive pulmonary disease 428444963 J44.1 start on pred and z radha Chronic ob structive pulmonary disease 69936604 J41.0 needs refiil [id number] [facility] [address] [place] [address] 12/29/2023 10:02:26 12/29/2023 15:40:20 Pre-surgery evaluation 562078178 Z01.818 The patient was seen in the office today for pre-op evaluation . All medical conditions on patient's problem list were addressed and are currently stable, no interventi on needed at this time. Based on history and physical performed, the patient is cleared for surgery. Chronic ob structive pulmonary disease 99345443 J41.0 mild exacerbati oncan start prednisone taper after surgery [id number] Cristhian Perez [facility] [facility] [address] [facility] on [address] [address] 01/19/2024 10:45:59 01/19/2024 11:55:43 Acute exacerbation of chronic obstructive pulmonary disease [id number] J44.1 seems stable now now acute changess Chronic ob structive pulmonary disease 06055027 J41.0 he is stable on the inhalers Neuropathy 751303141 G62 .9 had been on gabapentin Eczema 76870255 L30.9 Pain of bi lateral hands [id number] 4729725 M79.642 M79.641 [id number] Cristhian Perez [facility] Internal Medicine [address] [facility] [address], [place] [address] 01/17/2024 09:44:31 01/17/2024 11:46:28 Generalized rash [id number] R21 start on combinatio n treat of pred and anti-funga lhas a f/u on 01/18 with MB in officereco mmended him evaluate at that timeskin culture was negative, no staph infection [id number] Cristhian Perez [facility] Internal Medicine [address] [facility] [address] [address] 03/22/2024 11:00:25 03/22/2024 11:45:12 Chronic obstructive pulmonary disease 09822822 J41.0 he is stable on the inhalers COVID-19 [id number] U07.1 on medrol and azith getting better Acute exac erbation of chronic obstructive pulmonary disease 837103586 J44.1 seems stable now now acute changesdoi ng bettergive n spacer [id number] Cristhian Perez [facility] Internal [facility] [address] [facility] [address] [address] 05/19/2024 14:12:21 05/19/2024 15:20:28 Chronic obstructive pulmonary disease 01147064 J41.0 he is stable on the inhalers Nummular eczema 91459138 L30.0 Dislocatio n of shoulder joint 128147446 S43.006D Bilateral pain of joint of hands 3470891640 0001943 M25.541 M25.542 Screening for malignant neoplasm of colon 529422957 Z12.11 Chronic bronchitis 90926 004 J42 Neuropathy 878509752 G62 .9 had been on gabapentin [id number] Cristhian Perez [facility] Internal Medicine [address] [facility] [address] 06/07/2024 11:29:13 06/07/2024 12:15:01 Chronic obstructive pulmonary disease 42091670 J41.0 he is stable on the inhalers Dislocatio n of shoulder joint 142762426 S43.006D Nummular eczema 06999406 L30.0 Depression screening 171 201015 Z13.31 SCREENING NEGATIVE Bilateral pain of joint of hands 2665761442 6423891 M25.541 M25.542 Acute exac erbation of chronic obstructive pulmonary disease 452392743 J44.1 seems stable now now acute changesdoi ng bettergive n spacer [id number] [facility] [address] [facility] [address] 10/10/2024 15:56:56 10/11/2024 10:30:30 Depression screening 498909941 Z13.31 SCREENING NEGATIVE Harmful pa ttern of use of alcohol 38063540 F10.121 on naloxone campral buspar zoloft Chronic ob structive pulmonary disease 41586068 J41.0 he is stable on the inhalers Eczema of lower leg 7623 91787 L30.9 [id number] will use cream Secondary peripheral neuropathy 027434 G62.89 will cont gabapentin but consider change to duloxetine Health Concerns Section Related Observation LastModified by Organization Detai ls LastModified Time None Recorded Concern Status LastModified by Organization Details LastModified Time None Recorded Advance Directives Directive None Recorded Payers Insurance Date Sequence Insurance Name Policy Number Policy Ruiz Covered Member ID Ruiz Member ID Guarantor Name 05/19/[address] [facility] - DOS PRIOR TO 2022 - DUAL ELIGIBLE (MEDICARE REPLACEMENT/ADV ANTAGE - HMO) Edgardo Zavala [id number] Edgardo Zavala 05/19/2024 1 [place] [employer] Edgardo Zavala [id number] Edgardo Zavala 01/16/[address] [facility] - DOS ON OR AFTER 2022 - [place]ARE [place]VANTAGE [place] REPLAC[place]/ADV ANTAGE - PPO) Edgardo Zavala [id number] Edgardo Zavala 05/19/2024 1 [place] PRIOR TO 2022 - [facility] ([place]ICAID) Edgardo Zavala [id number] Edgardo Zavala Notes Date Note Type Note Provider Name a nd Address Organization Details Recorded Time 4 text/html ROS as noted in the HPI here for rechkrelates that had a rsh for mult weeks creams not helpfulstill smokeshaving a prob with the rash not going away Cristhian Perez DO [address] [place], [address], [facility] 01/19/2024 11:54:47 5 text/html ROS as noted in the HPI here for rechk of his lungs since having covid was seen twice in ER and actually signed out AMA on second visit was told to stay due to lower O2 sat but went hometoday O2 sat 95% Cristhian Perez DO [address] [place], [address], [facility] 03/22/2024 11:38:17 5 text/html ROS as noted in the HPI hwere for rechk right shoulder is pretty bad as of late since the dislocation episode back in januaryrelates that he has also had a problem with his short term memoryhas noticed for several monthsals o the neuropathy has been worse Cristhian Perez DO [address] [place], [address], [facility] 05/19/2024 15:07:19 5 text/html Care [...] his motorcycle again Cristhian Perez DO [address] [place], [address], [facility] 06/07/2024 12:12:26 5 text/html Care [...] his motorcycle again Cristhian Perez DO [address] [place], [address], [facility] 10/10/2024 16:56:27
[2025-01-17] MEDS: Potassium Chloride Packet 20 MEQ PACKET 40 MEQ PO (16:53)
--- NOTE | 2025-01-17 18:45 | PM.EVENT ---
Event Note Date of Service: 01/17/25 Event Note: GI--Consult received this afternoon, chart reviewed-Full consult to be done on 01/18/25. Issues seem c/w EtOH-induced hepatitis and chronic liver disease in relation to his chronic EtOH abuse, as well as possible component of GI bleeding. Stable Hgb, normal BUN, normal PT/INR, and normal TBili are all reassuring. Agree with IV PPI, F/U labs in AM, supportive care, and holding of his Eliquis. Will evaluate on 01/18 and assess need for EGD later for in the week. Please call if problems overnight. Thanks Time Spent With Patient Time: Total time managing care of this patient today ____ minutes.
[2025-01-17 20:13] VITALS: BMI 21.0
[2025-01-17 20:17] VITALS: BP 110/64; PULSE 108; RESP 17; TEMP 36.8; O2SAT 95
[2025-01-18] VITALS (8 sets, daily range): BP systolic 100–122; BP diastolic 57–72; PULSE 77–96; RESP 18–20; TEMP 36.6–37.3; O2SAT 90–97
[2025-01-18 01:06] LABS: Anion Gap 14 (12-20); Blood Urea Nitrogen 10 mg/dL (9-16); Calcium 7.6 mg/dL (8.4-10.2); Carbon Dioxide 28 mmol/L (22-29); Chloride 94 mmol/L (96-108); Creatinine Clr Calc Pharmacy 100.2; Estimated Glomerular Filt Rate > 60; Sodium 133 mmol/L (135-145)
[2025-01-18] MEDS: Potassium Chloride Packet 20 MEQ PACKET 40 MEQ PO (01:20)
[2025-01-18 06:24] LABS: MANUAL DIFF FLAG NO
[2025-01-18 06:26] LABS: Hematocrit 31.1 % (42.0-52.0); Hemoglobin 10.5 g/dl (14.0-18.0); Imm Gran Abs Auto 0.01 X10*3/uL (0.00-0.03); Imm Gran Pct Auto 0.3 % (0.0-0.4); Lymphocytes Absolute Auto 0.6 X10*3/uL (1.2-4.9); Mean Corpuscular HGB Conc 33.8 g/dl (31.0-36.0); Mean Corpuscular Hemoglobin 30.9 pg (27.0-33.0); Mean Corpuscular Volume 91.5 fL (80.0-98.0); NRBC Abs Auto 0.000 X10*3/uL (0.0-0.012); NRBC Pct Auto 0.0 /100WBC (0.0-0.2); Red Blood Count 3.40 X10*6/uL (4.60-5.80); White Blood Count 3.1 X10*3/uL (4.8-10.8)
[2025-01-18 06:28] LABS: Platelet Count 59 X10*3/uL (160-400)
[2025-01-18 06:30] LABS: INTERNATIONAL NORM RATIO 1.1 (0.9-1.1); Prothrombin Time 13.4 SEC (11.2-13.5)
[2025-01-18 06:37] LABS: Ammonia 31 umol/L (13-55)
[2025-01-18 07:14] LABS: Alanine Aminotransferase 70 U/L (0-40); Albumin Level 2.9 g/dL (3.5-5.0); Alkaline Phosphatase 174 U/L (39-117); Anion Gap 12 (12-20); Aspartate Amino Transferase 167 U/L (5-37); Blood Urea Nitrogen 9 mg/dL (9-16); Calcium 7.7 mg/dL (8.4-10.2); Carbon Dioxide 31 mmol/L (22-29); Chloride 99 mmol/L (96-108); Creatinine Clr Calc Pharmacy 109.9; Estimated Glomerular Filt Rate > 60; Potassium 3.9 mmol/L (3.3-5.1); Sodium 138 mmol/L (135-145); Total Protein 5.5 g/dL (6.5-8.0)
--- NOTE | 2025-01-18 07:17 | P.PNIM_ITS ---
Subjective Subjective Date of Service: 01/18/25 Interval History: Looks much better this morning. No new complaints. Endorses increased appetite. No Evidence worsening withdrawal Review of Systems Review of Systems: Yes all other systems are reviewed and are negative Physical Exam 2 Exam: Exam: General: A&O x3, oriented to time place person and situation, comfortable, no pain. Breath smells of alcohol. Disheveled Cardiac: S1, S2 auscultated with no S3/4, no MRG. Well perfused. Respiratory: Normal breath sounds auscultated throughout all lung zones, without wheezing, rales. Normal rate. GI/ : Mild tenderness to palpation of the left lower quadrant, without rebound guarding ecchymosis. MSK: Normal ambulation without pain at bony prominences or musculature. Generalized muscular atrophy in upper and lower extremities and temporal muscle wasting Neurological: Normal neurological examination on overview, without obvious CN II-XII abnormalities. Vital Signs: Vital Signs: Last Vital Signs Temp 98.2 F 01/18/25 03:39 Pulse 87 01/18/25 03:39 Resp 18 01/18/25 03:39 BP 109/57 L 01/18/25 03:39 Pulse Ox 93 01/18/25 03:39 O2 Del Method Room Air 01/18/25 03:39 BMI result Body Mass Index 21.0 Objective Data Active Medications Acetaminophen (Acetaminophen 325 Mg Tablet) 650 mg PO Q6H PRN PRN Reason: Pain, Mild 1-3,fever,headache Albuterol Sulfate (Albuterol Sulfate 90 Mcg 8 Gm Inhaler) 2 puff INHALE Q4H PRN PRN Reason: Shortness of Breath Calcium Carbonate (Calcium Carbonate 750 Mg Tab.Chew) 750 mg PO Q4H PRN PRN Reason: Heartburn Folic Acid (Folic Acid 1 Mg Tablet) 1 mg PO DAILY [facility] Last Admin: 01/17/25 16:11 Dose: 1 mg Documented By: JASON Hydroxyzine HCl (Hydroxyzine Hcl 50 Mg Tablet) 50 mg PO BID [facility] Last Admin: 01/17/25 21:00 Dose: 50 mg Documented By: TARAH Thiamine HCl 400 mg/ Sodium (Chloride) 104 mls @ 208 mls/hr IV DAILY [facility] Last Infusion: 01/17/25 13:00 Dose: Infused Documented By: JASON Influenza Virus Vaccine (Flu Vacc [id number](6mo Up)/Pf 0.5 Ml Syringe) 0.5 ml IM .ONCE ONE Stop: 01/18/25 09:01 Magnesium Hydroxide (Milk Of Magnesia 30 Ml Oral.Susp) 30 ml PO DAILY PRN PRN Reason: Constipation Magnesium Oxide (Magnesium Oxide 400 Mg Tablet) 400 mg PO DAILY NOHEMI Melatonin (Melatonin 3 Mg Tablet) 6 mg PO BEDTIME PRN PRN Reason: Insomnia Last Admin: 01/17/25 21:00 Dose: 6 mg Documented By: TARAH Ondansetron HCl (Ondansetron Hcl 4 Mg/2 Ml Vial) 4 mg IVPUSH Q6H PRN PRN Reason: Nausea and Vomiting Last Admin: 01/17/25 16:10 Dose: 4 mg Documented By: JASON Pantoprazole Sodium (Pantoprazole Sodium 40 Mg/10 Ml Vial) 40 mg IVPUSH BID@0630,1630 [facility] Last Admin: 01/18/25 06:06 Dose: 40 mg Documented By: TARAH Pharmacy Consult (Consult Rx Etoh Phenob Im/Po) 1 each MISCELLANE ONCE PRN; Protocol PRN Reason: Consult order Phenobarbital (Phenobarbital 15 Mg Tablet) 45 mg PO BID [facility]; Protocol Stop: 01/19/25 21:01 Phenobarbital (Phenobarbital 30 Mg Tablet) 30 mg PO BID [facility]; Protocol Stop: 01/21/25 21:01 Phenobarbital (Phenobarbital 30 Mg Tablet) 30 mg PO DAILY [facility]; Protocol Stop: 01/23/25 09:01 Sodium Chloride (0.9 % Sodium Chloride Flush 3 Ml Syringe) [facility] Last Admin: 01/17/25 21:04 Dose: 3 ml Documented By: TARAH Labs 01/18/25 06:17 01/18/25 06:17 Labs: Laboratory Results - last 24 hr 01/17/25 01/17/25 01/17/25 09:18 09:19 12:17 MCV 90.7 MCH 30.5 MCHC 33.6 RDW 17.2 H Plt Count 99 L MPV 10.4 Immature Gran % (Auto) 0.2 Neut % (Auto) 54.3 Lymph % (Auto) 31.7 Mccone % (Auto) 10.8 Eos % (Auto) 1.5 Baso % (Auto) 1.5 Lymph # (Auto) 1.3 Mccone # (Auto) 0.4 Eos # (Auto) 0.1 Baso # (Auto) 0.1 Abs Immat Gran (auto) 0.01 Absolute Neuts (auto) 2.2 Absolute Nucleated RBC 0.000 Nucleated RBC % (auto) 0.0 PT 13.3 INR 1.1 Anion Gap 15 Estim Creat Clear Calc 101.5 Estimated GFR > 60 Random Glucose 82 Calcium 7.8 L D Magnesium 1.2 L* Total Bilirubin 1.4 H Direct Bilirubin 0.8 H AST 205 H ALT 88 H Alkaline Phosphatase 199 H Ammonia Troponin I High Sens 6.3 D Total Protein 6.7 Albumin 3.6 Lipase 28 Ethyl Alcohol 354 H* Influenza Type A (PCR) NEGATIVE Influenza Type B (PCR) NEGATIVE RSV RNA Qual (PCR) NEGATIVE SARS-CoV-2 RNA (RT-PCR) NEGATIVE 01/17/25 01/17/25 01/18/25 15:10 23:12 06:15 MCV MCH MCHC RDW Plt Count MPV Immature Gran % (Auto) Neut % (Auto) Lymph % (Auto) Mccone % (Auto) Eos % (Auto) Baso % (Auto) Lymph # (Auto) Mccone # (Auto) Eos # (Auto) Baso # (Auto) Abs Immat Gran (auto) Absolute Neuts (auto) Absolute Nucleated RBC Nucleated RBC % (auto) PT INR Anion Gap 16 14 Estim Creat Clear Calc 106.3 100.2 Estimated GFR > 60 > 60 Random Glucose 140 H 100 Calcium 7.6 L 7.6 L Magnesium 1.6 Total Bilirubin Direct Bilirubin AST ALT Alkaline Phosphatase Ammonia 31 Troponin I High Sens Total Protein Albumin Lipase Ethyl Alcohol Influenza Type A (PCR) Influenza Type B (PCR) RSV RNA Qual (PCR) SARS-CoV-2 RNA (RT-PCR) 01/18/25 06:17 MCV 91.5 MCH 30.9 MCHC 33.8 RDW 17.4 H Plt Count 59 L D MPV 9.3 L Immature Gran % (Auto) 0.3 Neut % (Auto) 69.0 Lymph % (Auto) 18.6 L Mccone % (Auto) 8.2 Eos % (Auto) 2.6 Baso % (Auto) 1.3 Lymph # (Auto) 0.6 L Mccone # (Auto) 0.3 Eos # (Auto) 0.1 Baso # (Auto) 0.0 Abs Immat Gran (auto) 0.01 Absolute Neuts (auto) 2.1 Absolute Nucleated RBC 0.000 Nucleated RBC % (auto) 0.0 PT 13.4 INR 1.1 Anion Gap 12 Estim Creat Clear Calc 109.9 Estimated GFR > 60 Random Glucose 99 Calcium 7.7 L Magnesium Total Bilirubin 1.4 H Direct Bilirubin 0.7 H AST 167 H ALT 70 H Alkaline Phosphatase 174 H Ammonia Troponin I High Sens Total Protein 5.5 L Albumin 2.9 L Lipase Ethyl Alcohol Influenza Type A (PCR) Influenza Type B (PCR) RSV RNA Qual (PCR) SARS-CoV-2 RNA (RT-PCR) Assessment and Plan (1) Alcohol withdrawal: Status: Acute (2) Alcohol abuse: Status: Acute (3) Alcohol intoxication: Status: Acute (4) DVT (deep venous thrombosis): Status: Acute (5) Presence of IVC filter: Status: Acute (6) UGIB (upper gastrointestinal bleed): Status: Acute (7) Alcoholic hepatitis: Status: Acute (8) Hypomagnesemia: Status: Acute (9) Pancytopenia: Status: Acute (10) Neuropathy: Status: Acute (11) COPD (chronic obstructive pulmonary disease): Status: Acute (12) Smoker: Status: Acute Plan 64-year-old male with a history of EtOH use disorder, tobacco use disorder, DVT on Eliquis, COPD not on home supplemental oxygen, peripheral neuropathy, presents with complaints of atypical chest pain and nausea and seeking rehabilitation for EtOH abuse, admitted with EtOH intoxication & withdrawal with severe electrolyte deficiencies and alcoholic hepatitis. EtOH Abuse ETOH intoxication EtOH Withdrawal PLAN - CIWA - Phenobarbital withdrawal protocol - Thiamine IV 400mg x3 days - Thiamine 100mg OD PO after x3 days - Folic acid - Addiction medicine consultation Suspected upper GI bleed Melena Endorses black tarry stools ongoing for the past 3 days, with associated epigastric pain PLAN - pantoprazole 40 mg b.i.d. IV - gastroenterology consultation placed - holding apixaban and VTE prophylaxis Hypomagnesemia Hypokalemia Failure to thrive in adult Mg 1.4 today - MgO2 400mg OD PO added K 3.8 today - stable PLAN - K >4 - Mg >2 - MgO2 400mg OD PO - repeat BMP - dietitian consultation Alcoholic hepatitis Hepatosteatosis Cholelithiasis without cholecystitis ALT/AST downtrending INR 1.1 No evidence of dysfunction of hepatic synthetic action Maddrey's Discriminant Function score: 1.4 (good prognosis - no need for steroids) Evaluation for hepatic dysfunction ongoing RUQ US showing hepatosteatosis Cholelithiasis without cholecystitis PLAN - Trend LFTs - Avoid hepatotoxins History of DVT History of IVC filter placement On Anticoagulation INR 1.1 PLAN - holding apixaban and chemical VTE prophylaxis Pancytopenia - Leukopenia - Anemia - Thrombocytopenia Etiologically possibly 2/2 bone marrow suppression in setting of ETOH abuse Other possible pathology could be superimposed such as MDS Anemeia likely exacerbated by suspected UGIB PLAN - outpatient evaluation with Hematology/Oncology Smoker Smoking cessation counseling provided Patient refuses nicotine patch or other chemical supports QUALITY [employer]RICS - VTE: SCDs - CODE STATUS: Full code - DIET: clear liquid diet Total time managing care of this patient today: 45 minutes. Quality Stroke Does the patient have a stroke diagnosis?: No VTE Prior VTE?: Yes VTE Risk Level:: Medical - moderate - high VTE Device Contraindication: N/A - Device Ordered VTE Drug Contraindication: Treatment Not Indicated (contraindicated )
[2025-01-18 07:19] LABS: Magnesium 1.4 mg/dL (1.6-2.6)
[2025-01-18] MEDS: Flu Vacc TS2025-26(6mo up)/PF 0.5 ML SYRINGE IM (08:18)
[2025-01-18 10:00] LABS: Potassium 2.8 mmol/L (3.3-5.1)
--- NOTE | 2025-01-18 16:02 | MHC.CM.PN ---
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
--- NOTE | 2025-01-18 17:06 | PM.EVENT ---
Event Note Date of Service: 01/18/25 Event Note: GI Consult-Full note dictated-History from patient, his RN, and the EMR. Imp/Recs: Alcohol-induced liver disease with associated cirrhosis and acute EtOH-hepatitis, melena with anemia with associated chronic EtOH/Tobacco/Eliquis use, and hypersplenism with associated thrombocytopenia. He is presently improving since admission and had brown stool today. At home he describes vomiting but with only bilious vomitus and no sign of bleeding. I suspect the bleeding is nonvariceal given no hematemesis. However, I do think he should undergo an upper endoscopy given his risk factors for a possible UGI neoplasm and his need to potentially go back on Eliquis. It will also be important to rule out significant peptic ulcer disease or any other potential high risk lesion in regard to recurrent bleeding, particularly if he has to go back on Eliquis. Full consent has been obtained from him for this, including risks of bleeding and perforation. Continue IV PPI and F/U labs in the AM. Given the clinical history, I don't think a colonoscopy is presently indicated. D/W patient in detail and he is comfortable with this plan. Thanks Time Spent With Patient Time: Total time managing care of this patient today ____ minutes.
--- NOTE | 2025-01-18 17:19 | MHC.SHP ---
Pre-Procedural Eval Section A - 24 Hr Update-Section A only Date of Service: 01/19/25 The patient is an INPATIENT: Yes The patient has been examined within 24 hours of the surgical procedure. The History & Physical has been completed within 30 days and I have reviewed it.: Yes Section B - Complete if H&P > 30 days Chief Complaint: alcohol detox Allergies: Allergies Allergy/AdvReac Type Severity Reaction Status Date / Time Peanut Butter Allergy Facial Verified 01/17/25 08:34 Swelling raspberry Allergy Facial Verified 01/17/25 08:34 Swelling Plan I have reviewed the history and physical and performed a pertinent physical examination on my patient. No changes have occurred unless specified. Time Spent With Patient Time: Total time managing care of this patient today ____ minutes.
[2025-01-19] VITALS (11 sets, daily range): BP systolic 90–134; BP diastolic 50–71; PULSE 76–96; RESP 11–20; TEMP 36.2–36.9; O2SAT 90–100
--- NOTE | 2025-01-19 03:43 | CONS_ITS ---
DATE OF SERVICE: 01/18/2025 REASON FOR CONSULTATION: Alcohol-induced liver disease, alcohol-induced hepatitis, and melena. HISTORY OF PRESENT ILLNESS: This has been obtained from the patient and the medical record, as well as from his nurse. The patient is a 64-year-old male with a longstanding history of chronic alcohol abuse who came to the ER for planned detox. He was admitted for evaluation of his elevated LFTs consistent with alcohol-induced hepatitis and reported melena. The patient describes at home he was drinking heavily and not eating. He describes vomiting at home, but this was only bilious and without any sign of coffee-grounds material or hematemesis. He does report that his bowel movements had been black and tarry for several days at home before coming to the hospital. Today, he only had a small brown stool. There has been no hematochezia nor melena. He denies any particular abdominal pain or jaundice. Aside from his daily alcohol use, he does also smoke. He denies NSAID or aspirin use. He denies any previous history of GI bleeding. He reports he has never had an upper endoscopy or colonoscopy. Since admission here, he has otherwise been stable and feels improved. He presently denies any abdominal pain. He denies any previous history of jaundice. There is a family history of alcohol-related liver disease, but there is no other family history of liver disease or GI malignancy. MEDICATIONS: Medications at home, buspirone, Eliquis, Trelegy, hydroxyzine, melatonin, mirtazapine, naltrexone, prazosin, and sertraline. Medications here in the hospital include IV pantoprazole, albuterol inhaler p.r.n., Tums p.r.n., hydroxyzine, melatonin p.r.n., milk of magnesia p.r.n., Zofran p.r.n., phenobarbital, thiamine. PAST MEDICAL HISTORY: Chronic alcohol abuse. Alcohol-induced liver disease with associated cirrhosis and hypersplenism. COPD. He denies any history of SC, diabetes, stroke, or kidney disease. He does describe a history of a TIA. He does have a history of DVTs for which he has been on Eliquis and also has an IVC filter in place. SOCIAL HISTORY: He is single. He does smoke. He drinks alcohol regularly. FAMILY HISTORY: Notable for his mother having had alcohol-induced liver disease. REVIEW OF SYSTEMS: CONSTITUTIONAL: He has been feeling poorly at home in relation to his chronic alcohol use and not eating. CARDIAC: No chest pain. PULMONARY: No coughing or hemoptysis. GI: As above. URINARY: No dysuria nor hematuria. NEUROLOGIC: No headache or seizures. PHYSICAL EXAMINATION: GENERAL: The patient is an alert, comfortable-appearing male, in no distress. He is cooperative and answers questions appropriately. SKIN: Warm and dry. HEENT: Anicteric sclerae. Moist mucous membranes. NECK: Supple without lymphadenopathy. CHEST: There are no obvious spider angiomata on the chest wall. Diminished breath sounds bilaterally. CARDIAC: Normal S1, S2. ABDOMEN: Soft, nondistended, nontender. EXTREMITIES: Without edema. There is no palmar erythema. LABORATORY DATA: White blood cell count on admission was 4.1 and repeat today is 3.1. Hemoglobin was 12.5 on admission compared to 13.9 in early December. His repeat hemoglobin today was down to 10.5. MCV is 92. Platelets 59,000. PT 13.4 with INR 1.1 this morning. His LFTs yesterday showed a total bilirubin of 1.4, AST 205, ALT 88, and alkaline phosphatase 199. Followup labs today showed a total bilirubin of 1.4, direct bilirubin 0.7, AST 167, ALT 70, and alkaline phosphatase 174. Abdominal ultrasound shows a liver of normal size and normal contour and without any sign of liver mass. There was no sign of any biliary obstruction. There were small gallstones present in the gallbladder but without any sign of cholecystitis. There was no ascites. IMPRESSION: The patient is a 64-year-old male with a longstanding history of alcohol abuse with associated liver disease, including cirrhosis with associated hypersplenism and alcohol-induced hepatitis. At the present time, it does not appear that he is having any sign of liver failure given his basically normal total bilirubin and normal PT with INR. I do not think his alcohol-induced hepatitis is anywhere near severe enough to require steroids at this time. He does not show any signs of significant ascites to suggest the need for paracentesis and does not show any encephalopathy. His reported black stool with some anemia could certainly represent an upper GI bleed from something such as peptic ulcer disease or erosive gastritis. He seems very stable now, but I advised him it would be important to have him undergo an upper endoscopy to make a definitive assessment of the etiology of his bleeding such that if he needs to go back on Eliquis at some point, we would know whether or not it was safe or high risk. He does have risk factors for upper GI neoplasm as well and it would also be important to exclude that as well. I doubt his bleeding is from a source such as esophageal varices given no reported hematemesis. In the meantime, I will continue him on the IV PPI until the procedure has been done. He will have followup laboratories in the morning as well. This has all been discussed in detail with the patient, and he is comfortable with the plan. Thank you for the consultation. MD KALPANA Mcneil/BETTY / [phone] MTDD
[2025-01-19 06:39] LABS: MANUAL DIFF FLAG NO
[2025-01-19 07:20] LABS: Hematocrit 32.8 % (42.0-52.0); Hemoglobin 11.0 g/dl (14.0-18.0); Imm Gran Abs Auto 0.02 X10*3/uL (0.00-0.03); Imm Gran Pct Auto 0.5 % (0.0-0.4); Lymphocytes Absolute Auto 0.8 X10*3/uL (1.2-4.9); Mean Corpuscular HGB Conc 33.5 g/dl (31.0-36.0); Mean Corpuscular Hemoglobin 31.1 pg (27.0-33.0); Mean Corpuscular Volume 92.7 fL (80.0-98.0); NRBC Abs Auto 0.000 X10*3/uL (0.0-0.012); NRBC Pct Auto 0.0 /100WBC (0.0-0.2); Red Blood Count 3.54 X10*6/uL (4.60-5.80); White Blood Count 3.9 X10*3/uL (4.8-10.8)
[2025-01-19 07:22] LABS: Platelet Count 75 X10*3/uL (160-400)
[2025-01-19 07:55] LABS: Alanine Aminotransferase 57 U/L (0-40); Albumin Level 2.9 g/dL (3.5-5.0); Alkaline Phosphatase 182 U/L (39-117); Anion Gap 10 (12-20); Aspartate Amino Transferase 120 U/L (5-37); Blood Urea Nitrogen 8 mg/dL (9-16); Calcium 8.2 mg/dL (8.4-10.2); Carbon Dioxide 30 mmol/L (22-29); Chloride 102 mmol/L (96-108); Creatinine Clr Calc Pharmacy 106.5; Estimated Glomerular Filt Rate > 60; Magnesium 1.3 mg/dL (1.6-2.6); Potassium 4.2 mmol/L (3.3-5.1); Sodium 138 mmol/L (135-145); Total Protein 5.7 g/dL (6.5-8.0)
[2025-01-19] MEDS: Albuterol Sulfate 90 MCG 8 GM INHALER 2 PUFF INHALE ×2 (08:05→22:18)
--- NOTE | 2025-01-19 08:14 | HO.ANESPROP2 ---
Documented by User: Melly Medrano NP 01/19/25 09:20 HPI - Anesthesia Eval Consult details Narrative: 64 yr old male for EGD ETOH dependence with H/O ETOH withdrawl: not currently in acute withdrawl +Tobacco use, +marijuana use INR 1.1 on 01/18/25 Thrombocytopenia: platelets 75 01/19/25 H/O DVT: ?2018, on eliquis (currently held), IVC filter Asthma/COPD: using albuterol 4-6 times daily at home, chronic SOB, chronic cough, no routine internal med or pulmonary f/u; chest xray from 01/27/25 No acute cardiopulmonary abnormality. PMFSH Active Problems Active Problems: All Active Problems UGIB (upper gastrointestinal bleed) (Acute) Pancytopenia (Acute) Alcoholic hepatitis (Acute) Smoker (Acute) COPD (chronic obstructive pulmonary disease) (Acute) Neuropathy (Acute) Presence of IVC filter (Acute) DVT (deep venous thrombosis) (Acute) Alcohol withdrawal (Acute) Alcohol intoxication (Acute) Hypomagnesemia (Acute) Cellulitis, gluteal (Acute) Gluteal abscess (Acute) UTI (urinary tract infection) (Acute) COVID-19 (Acute) COVID-19 (Acute) Alcohol abuse (Acute) Past Medical History Medical History Alcohol withdrawal Alcohol dependence Presence of IVC filter Acute and chronic respiratory failure with hypoxia COPD (chronic obstructive pulmonary disease) Alcohol use disorder, severe, dependence Tobacco abuse Subdural hematoma DVT (deep venous thrombosis) COPD (chronic obstructive pulmonary disease) Asthma Neuropathy Alcohol abuse Family History Family history of problems with anesthesia: No Surgical History History of Problems with Anesthesia: Yes (vomited, aspirated when waking up from IVC filter) Social History Social History Household Members: None Housing: House Do you presently have visiting nurse or other home services: No Alcohol intake: current Alcohol intake frequency: 3 or more drinks per day Alcohol type: hard liquor Comment: pt refuses high fall risk interventions Patient Tobacco Use Status: Current everyday Tobacco user Tobacco use type: Cigarette Cigarette Packs Per Day: 1 Cigarettes Per Day: 20.0 e-Cigarette/Vaping Use: Never Used Second Hand Smoke Exposure: No Substance Use Type: Marijuana Advance Directives Date on File: 03/05/22 service: No Current occupational status: disabled Meds Allergies Allergy/AdvReac Type Severity Reaction Status Date / Time Peanut Butter Allergy Facial Verified 01/17/25 08:34 Swelling raspberry Allergy Facial Verified 01/17/25 08:34 Swelling Active Medications: Current Medications Acetaminophen (Acetaminophen 325 Mg Tablet) 650 mg PO Q6H PRN PRN Reason: Pain, Mild 1-3,fever,headache Albuterol Sulfate (Albuterol Sulfate 90 Mcg 8 Gm Inhaler) 2 puff INHALE Q4H PRN PRN Reason: Shortness of Breath Last Admin: 01/19/25 08:05 Dose: 2 puff Calcium Carbonate (Calcium Carbonate 750 Mg Tab.Chew) 750 mg PO Q4H PRN PRN Reason: Heartburn Folic Acid (Folic Acid 1 Mg Tablet) 1 mg PO DAILY [facility] Last Admin: 01/18/25 08:18 Dose: 1 mg Hydroxyzine HCl (Hydroxyzine Hcl 50 Mg Tablet) 50 mg PO BID [facility] Last Admin: 01/18/25 20:20 Dose: 50 mg Thiamine HCl 400 mg/ Sodium (Chloride) 104 mls @ 208 mls/hr IV DAILY [facility] Last Infusion: 01/18/25 08:57 Dose: Infused Magnesium Sulfate/Dextrose (Magnesium Sulfate/D5w) 1 gm in 100 mls @ 100 mls/hr IV ONCE ONE Stop: 01/19/25 09:03 Magnesium Hydroxide (Milk Of Magnesia 30 Ml Oral.Susp) 30 ml PO DAILY PRN PRN Reason: Constipation Magnesium Oxide (Magnesium Oxide 400 Mg Tablet) 400 mg PO DAILY [facility] Last Admin: 01/18/25 08:18 Dose: 400 mg Melatonin (Melatonin 3 Mg Tablet) 6 mg PO BEDTIME PRN PRN Reason: Insomnia Last Admin: 01/18/25 20:21 Dose: 6 mg Ondansetron HCl (Ondansetron Hcl 4 Mg/2 Ml Vial) 4 mg IVPUSH Q6H PRN PRN Reason: Nausea and Vomiting Last Admin: 01/17/25 16:10 Dose: 4 mg Pantoprazole Sodium (Pantoprazole Sodium 40 Mg/10 Ml Vial) 40 mg IVPUSH BID@0630,1630 [facility] Last Admin: 01/19/25 06:27 Dose: 40 mg Pharmacy Consult (Consult Rx Etoh Phenob Im/Po) 1 each MISCELLANE ONCE PRN; Protocol PRN Reason: Consult order Phenobarbital (Phenobarbital 15 Mg Tablet) 45 mg PO BID [facility]; Protocol Stop: 01/19/25 21:01 Last Admin: 01/18/25 20:20 Dose: 45 mg Phenobarbital (Phenobarbital 30 Mg Tablet) 30 mg PO BID [facility]; Protocol Stop: 01/21/25 21:01 Phenobarbital (Phenobarbital 30 Mg Tablet) 30 mg PO DAILY [facility]; Protocol Stop: 01/23/25 09:01 Sodium Chloride (0.9 % Sodium Chloride Flush 3 Ml Syringe) 3 ml IVFLUSH QSHIFT [facility] Last Admin: 01/19/25 06:39 Dose: Not Given Home Medications ?Medication ?Instructions ?Recorded ?Confirmed ?Last Taken ?Type apixaban 5 mg tablet (Eliquis) 5 mg PO BID 08/29/22 01/17/25 06/07/23 History albuterol sulfate 90 mcg/actuation 2 puff inhalation Q4H PRN 01/17/25 01/17/25 Unknown History aerosol inhaler Shortness Of Breath buspirone 7.5 mg tablet 7.5 mg PO TID 01/17/25 01/17/25 Unknown History fluticasone fur. 100 mcg-umeclid 1 ea inhalation DAILY 01/17/25 01/17/25 Unknown History 62.5 mcg-vilant 25 mcg inhalat.powder (Trelegy Ellipta) hydroxyzine pamoate 50 mg capsule 50 mg PO BID 01/17/25 01/17/25 Unknown History melatonin 5 mg tablet 5 - 10 mg PO BEDTIME PRN Sleep 01/17/25 01/17/25 Unknown History mirtazapine 15 mg tablet 15 mg PO BEDTIME 01/17/25 01/17/25 Unknown History naltrexone 50 mg tablet 50 mg PO BEDTIME 01/17/25 01/17/25 Unknown History prazosin 1 mg capsule 1 mg PO BEDTIME 01/17/25 01/17/25 Unknown History sertraline 100 mg tablet 200 mg PO DAILY 01/17/25 01/17/25 Unknown History Exam Height,Weight and Vital Signs: Height 5 ft 9 in Weight 64.6 kg Last Vital Signs Temp 98.4 F 01/19/25 07:53 Pulse 90 01/19/25 08:11 Resp 18 01/19/25 08:11 BP 131/71 01/19/25 07:53 Pulse Ox 91 L 01/19/25 07:53 O2 Del Method Room Air 01/19/25 07:53 Pertinent Lab Results Pertinent Lab Results: Laboratory Tests 01/17/25 01/17/25 01/17/25 09:18 09:19 12:17 WBC 4.1 L RBC 4.10 L Hgb 12.5 L Hct 37.2 L MCV 90.7 MCH 30.5 MCHC 33.6 RDW 17.2 H Plt Count 99 L MPV 10.4 Immature Gran % (Auto) 0.2 Neut % (Auto) 54.3 Lymph % (Auto) 31.7 [place] % (Auto) 10.8 Eos % (Auto) 1.5 Baso % (Auto) 1.5 Lymph # (Auto) 1.3 [place] # (Auto) 0.4 Eos # (Auto) 0.1 Baso # (Auto) 0.1 Abs Immat Gran (auto) 0.01 Absolute Neuts (auto) 2.2 Absolute Nucleated RBC 0.000 Nucleated RBC % (auto) 0.0 PT 13.3 INR 1.1 Sodium 138 Potassium 3.1 L Chloride 96 Carbon Dioxide 30 H Anion Gap 15 BUN 9 Creatinine 0.66 Estim Creat Clear Calc 101.5 Estimated GFR > 60 Random Glucose 82 Calcium 7.8 L D Magnesium 1.2 L* Total Bilirubin 1.4 H Direct Bilirubin 0.8 H AST 205 H ALT 88 H Alkaline Phosphatase 199 H Ammonia Troponin I High Sens 6.3 D Total Protein 6.7 Albumin 3.6 Lipase 28 Ethyl Alcohol 354 H* Influenza Type A (PCR) NEGATIVE Influenza Type B (PCR) NEGATIVE RSV RNA Qual (PCR) NEGATIVE SARS-CoV-2 RNA (RT-PCR) NEGATIVE 01/17/25 01/17/25 01/18/25 15:10 23:12 06:15 WBC RBC Hgb Hct MCV MCH MCHC RDW Plt Count MPV Immature Gran % (Auto) Neut % (Auto) Lymph % (Auto) [place] % (Auto) Eos % (Auto) Baso % (Auto) Lymph # (Auto) [place] # (Auto) Eos # (Auto) Baso # (Auto) Abs Immat Gran (auto) Absolute Neuts (auto) Absolute Nucleated RBC Nucleated RBC % (auto) PT INR Sodium 136 133 L Potassium 2.9 L* 2.8 L* Chloride 98 94 L Carbon Dioxide 25 28 Anion Gap 16 14 BUN 9 10 Creatinine 0.63 0.68 Estim Creat Clear Calc 106.3 100.2 Estimated GFR > 60 > 60 Random Glucose 140 H 100 Calcium 7.6 L 7.6 L Magnesium 1.6 Total Bilirubin Direct Bilirubin AST ALT Alkaline Phosphatase Ammonia 31 Troponin I High Sens Total Protein Albumin Lipase Ethyl Alcohol Influenza Type A (PCR) Influenza Type B (PCR) RSV RNA Qual (PCR) SARS-CoV-2 RNA (RT-PCR) 01/18/25 01/19/25 06:17 06:33 WBC 3.1 L 3.9 L RBC 3.40 L 3.54 L Hgb 10.5 L 11.0 L Hct 31.1 L 32.8 L MCV 91.5 92.7 MCH 30.9 31.1 MCHC 33.8 33.5 RDW 17.4 H 17.1 H Plt Count 59 L D 75 L D MPV 9.3 L 10.9 Immature Gran % (Auto) 0.3 0.5 H Neut % (Auto) 69.0 66.0 Lymph % (Auto) 18.[address] [place] % (Auto) 8.2 9.4 Eos % (Auto) 2.6 3.4 Baso % (Auto) 1.3 1.0 Lymph # (Auto) 0.[address] # (Auto) 0.3 0.4 Eos # (Auto) 0.1 0.1 Baso # (Auto) 0.0 0.0 Abs Immat Gran (auto) 0.01 0.02 Absolute Neuts (auto) 2.1 2.5 Absolute Nucleated RBC 0.000 0.000 Nucleated RBC % (auto) 0.0 0.0 PT 13.4 INR 1.1 Sodium 138 138 Potassium 3.9 D 4.2 Chloride 99 102 Carbon Dioxide 31 H 30 H Anion Gap 12 10 L BUN 9 8 L Creatinine 0.62 0.64 Estim Creat Clear Calc 109.9 106.5 Estimated GFR > 60 > 60 Random Glucose 99 94 Calcium 7.7 L 8.2 L D Magnesium 1.4 L* 1.3 L* Total Bilirubin 1.4 H 1.1 H Direct Bilirubin 0.7 H AST 167 H 120 H ALT 70 H 57 H Alkaline Phosphatase 174 H 182 H Ammonia Troponin I High Sens Total Protein 5.5 L 5.7 L Albumin 2.9 L 2.9 L Lipase Ethyl Alcohol Influenza Type A (PCR) Influenza Type B (PCR) RSV RNA Qual (PCR) SARS-CoV-2 RNA (RT-PCR) Narrative Narrative: EKG 01/27/25 Vent. Rate : 86 BPM Atrial Rate : 86 BPM P-R Int : 132 ms QRS Dur : 132 ms QT Int : 410 ms P-R-T Axes : 53 -77 34 degrees QTcB Int : 490 ms Normal sinus rhythm Right bundle branch block Left anterior fascicular block Bifascicular block Abnormal ECG When compared with ECG of 04-Jan-2025 15:15, T wave inversion no longer evident in Anterior leads CHEST CTA 09/2024 Impression: 7 mm irregular cavitary lesion right upper lobe Question malignancy, consider follow-up PET imaging Scattered tiny left ground-glass densities No acute process Airway Mallampati Class: II TM Dist: >3cm Neck ROM: Full Loose/Missing/Broken Teeth: Yes, Upper and Lower Heart: RRR Lungs: diffuse wheezing Assessment and Plan Final Anesthetic Review Family History of Problems with Anesthesia: No History of Problems with Anesthesia: Yes (vomited, aspirated when waking up from IVC filter) Documented by User: Elsie Cortes MD 01/19/25 15:21 [facility] Past Medical History Medical History Alcohol withdrawal Alcohol dependence Presence of IVC filter Acute and chronic respiratory failure with hypoxia COPD (chronic obstructive pulmonary disease) Alcohol use disorder, severe, dependence Tobacco abuse Subdural hematoma DVT (deep venous thrombosis) COPD (chronic obstructive pulmonary disease) Asthma Neuropathy Alcohol abuse Social History Social History Household Members: None Housing: House Do you presently have visiting nurse or other home services: No Alcohol intake: current Alcohol intake frequency: 3 or more drinks per day Alcohol type: hard liquor Comment: pt refuses high fall risk interventions Patient Tobacco Use Status: Current everyday Tobacco user Tobacco use type: Cigarette Cigarette Packs Per Day: 1 Cigarettes Per Day: 20.0 e-Cigarette/Vaping Use: Never Used Second Hand Smoke Exposure: No Substance Use Type: Marijuana Advance Directives Date on File: 03/05/22 service: No Current occupational status: disabled Meds Allergies Allergy/AdvReac Type Severity Reaction Status Date / Time Peanut Butter Allergy Facial Verified 01/17/25 08:34 Swelling raspberry Allergy Facial Verified 01/17/25 08:34 Swelling Home Medications ?Medication ?Instructions ?Recorded ?Confirmed ?Last Taken ?Type apixaban 5 mg tablet (Eliquis) 5 mg PO BID 08/29/22 01/17/25 06/07/23 History albuterol sulfate 90 mcg/actuation 2 puff inhalation Q4H PRN 01/17/25 01/17/25 Unknown History aerosol inhaler Shortness Of Breath buspirone 7.5 mg tablet 7.5 mg PO TID 01/17/25 01/17/25 Unknown History fluticasone fur. 100 mcg-umeclid 1 ea inhalation DAILY 01/17/25 01/17/25 Unknown History 62.5 mcg-vilant 25 mcg inhalat.powder (Trelegy Ellipta) hydroxyzine pamoate 50 mg capsule 50 mg PO BID 01/17/25 01/17/25 Unknown History melatonin 5 mg tablet 5 - 10 mg PO BEDTIME PRN Sleep 01/17/25 01/17/25 Unknown History mirtazapine 15 mg tablet 15 mg PO BEDTIME 01/17/25 01/17/25 Unknown History naltrexone 50 mg tablet 50 mg PO BEDTIME 01/17/25 01/17/25 Unknown History prazosin 1 mg capsule 1 mg PO BEDTIME 01/17/25 01/17/25 Unknown History sertraline 100 mg tablet 200 mg PO DAILY 01/17/25 01/17/25 Unknown History Exam Airway Lungs: inspiratory wheeze right Assessment and Plan Assessment Anesthesia Assessment: Anesthesia Plan Discussed and Chart Reviewed Final Anesthetic Review NPO: Yes ASA Class: III Final Preanesthetic Review: No Changes in Pt Med Stat, Meds/Allgs Chart Reviewed and Consent Obtained/Reviewed Patient Risk: Intermediate Procedure Risk: Intermediate Anesthetic Plan Anesthetic Plan: MAC: Disposition: Standard PACU
[2025-01-19] MEDS: 0.9 % Sodium Chloride Flush 3 ML SYRINGE IVFLUSH ×3 (08:41→20:19)
[2025-01-19] MEDS: Albuterol/Iprat 2.5/0.5MG 3 ML AMPUL.NEB INHALE (12:08)
--- NOTE | 2025-01-19 14:15 | MHC.CM.PN ---
EMR REVIEWED AND PER MD ROUNDS, PATIENT IS NOT MEDICALLY CLEARED FOR DISCHARGE DUE TO MANAGEMENT OF ETOH WITHDRAWAL, EGD PENDING.
--- NOTE | 2025-01-19 16:17 | P.BOP_ITS ---
Brief Operative Note Date of Service: 01/19/25 Pre-op diagnosis: UGI Bleed Post-op diagnosis: other (Gastric ulcer, Gastritis, Duodenitis, Hiatal hernia, Martinez's esophagus) Procedure: EGD with biopsies and WATS brushings of the Martinez's esophagus Surgeon: Shiraz Mcginnis MD Anesthesia: MAC Was an Bird Cage Assembler used for this Procedure?: No Estimated blood loss (mL): 2.0 Pathology: other (A. Gastric antrum) Condition: stable Disposition: PACU
--- NOTE | 2025-01-19 16:19 | P.EN_ITS ---
Event Note Date of Service: 01/19/25 Event Note: GI-EGD-Full note dictated Findings: 1. Nonbleeding benign appearing 8-10mm Gastric antral ulcer with associated mild antral gastritis---biopsied antrum x 3 2. Duodenitis in duodenal bulb 3. 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 I left a VM with the above infomation for his son Real at the patient's request Thanks Time Spent With Patient Time: Total time managing care of this patient today ____ minutes.
--- NOTE | 2025-01-19 18:24 | HO.PM.IMPN ---
Subjective Subjective Date of Service: 01/19/25 Interval History: Scheduled for colonoscopy and EGD today. No new complaints today, feels well. Hemoglobin stable Given his wheezing and history of COPD, the patient received a dose of methylprednisolone 60 mg Review of Systems Review of Systems: Yes all other systems are reviewed and are negative Physical Exam Exam: Exam: General: A&O x3, oriented to time place person and situation, comfortable, no pain. Breath smells of alcohol. Disheveled Cardiac: S1, S2 auscultated with no S3/4, no MRG. Well perfused. Respiratory: Normal breath sounds auscultated throughout all lung zones. Wheezing noted in the upper lobes bilaterally without rales or crepitations. Normal rate. GI/ : Mild tenderness to palpation of the left lower quadrant, without rebound guarding ecchymosis. MSK: Normal ambulation without pain at bony prominences or musculature. Generalized muscular atrophy in upper and lower extremities and temporal muscle wasting Neurological: Normal neurological examination on overview, without obvious CN II-XII abnormalities. Vital Signs: Vital Signs: Last Vital Signs Temp 97.8 F 01/19/25 17:22 Pulse 81 01/19/25 17:22 Resp 18 01/19/25 17:22 BP 134/68 01/19/25 17:22 Pulse Ox 93 01/19/25 17:22 O2 Del Method Room Air 01/19/25 17:22 O2 Flow Rate 6 01/19/25 16:06 BMI result Body Mass Index 21.0 Objective Data Active Medications Acetaminophen (Acetaminophen 325 Mg Tablet) 650 mg PO Q6H PRN PRN Reason: Pain, Mild 1-3,fever,headache Albuterol Sulfate (Albuterol Sulfate 90 Mcg 8 Gm Inhaler) 2 puff INHALE Q4H PRN PRN Reason: Shortness of Breath Last Admin: 01/19/25 08:05 Dose: 2 puff Documented By: BREANNA Calcium Carbonate (Calcium Carbonate 750 Mg Tab.Chew) 750 mg PO Q4H PRN PRN Reason: Heartburn Folic Acid (Folic Acid 1 Mg Tablet) 1 mg PO DAILY [facility] Last Admin: 01/19/25 08:49 Dose: 1 mg Documented By: CAT Hydroxyzine HCl (Hydroxyzine Hcl 50 Mg Tablet) 50 mg PO BID [facility] Last Admin: 01/19/25 08:48 Dose: 50 mg Documented By: CAT Thiamine HCl 400 mg/ Sodium (Chloride) 104 mls @ 208 mls/hr IV DAILY [facility] Last Infusion: 01/19/25 10:04 Dose: Infused Documented By: CAT Magnesium Hydroxide (Milk Of Magnesia 30 Ml Oral.Susp) 30 ml PO DAILY PRN PRN Reason: Constipation Magnesium Oxide (Magnesium Oxide 400 Mg Tablet) 400 mg PO DAILY [facility] Last Admin: 01/19/25 08:51 Dose: 400 mg Documented By: CAT Melatonin (Melatonin 3 Mg Tablet) 6 mg PO BEDTIME PRN PRN Reason: Insomnia Last Admin: 01/18/25 20:21 Dose: 6 mg Documented By: TROY Naloxone HCl (Naloxone Hcl 0.4 Mg/Ml Vial) 0.04 mg IVPUSH Q5M PRN PRN Reason: Excessive sedation or RR < 8 Omeprazole (Omeprazole 40 Mg Capsule.Dr) 40 mg PO DAILY@0630 [facility] Last Admin: 01/19/25 18:09 Dose: 40 mg Documented By: CAT Ondansetron HCl (Ondansetron Hcl 4 Mg/2 Ml Vial) 4 mg IVPUSH Q6H PRN PRN Reason: Nausea and Vomiting Last Admin: 01/17/25 16:10 Dose: 4 mg Documented By: JASON Pharmacy Consult (Consult Rx Etoh Phenob Im/Po) 1 each MISCELLANE ONCE PRN; Protocol PRN Reason: Consult order Phenobarbital (Phenobarbital 15 Mg Tablet) 45 mg PO BID [facility]; Protocol Stop: 01/19/25 21:01 Last Admin: 01/19/25 08:47 Dose: 45 mg Documented By: CAT Phenobarbital (Phenobarbital 30 Mg Tablet) 30 mg PO BID [facility]; Protocol Stop: 01/21/25 21:01 Phenobarbital (Phenobarbital 30 Mg Tablet) 30 mg PO DAILY [facility]; Protocol Stop: 01/23/25 09:01 Sodium Chloride (0.9 % Sodium Chloride Flush 3 Ml Syringe) [facility] Last Admin: 01/19/25 18:11 Dose: 3 ml Documented By: CAT Labs 01/19/25 06:33 01/19/25 06:33 Labs: Laboratory Results - last 24 hr 01/19/25 06:33 MCV 92.7 MCH 31.1 MCHC 33.5 RDW 17.1 H Plt Count 75 L D MPV 10.9 Immature Gran % (Auto) 0.5 H Neut % (Auto) 66.0 Lymph % (Auto) 19.7 L [place] % (Auto) 9.4 Eos % (Auto) 3.4 Baso % (Auto) 1.0 Lymph # (Auto) 0.8 L [place] # (Auto) 0.4 Eos # (Auto) 0.1 Baso # (Auto) 0.0 Abs Immat Gran (auto) 0.02 Absolute Neuts (auto) 2.5 Absolute Nucleated RBC 0.000 Nucleated RBC % (auto) 0.0 Anion Gap 10 L Estim Creat Clear Calc 106.5 Estimated GFR > 60 Random Glucose 94 Calcium 8.2 L D Magnesium 1.3 L* Total Bilirubin 1.1 H AST 120 H ALT 57 H Alkaline Phosphatase 182 H Total Protein 5.7 L Albumin 2.9 L Assessment and Plan (1) Alcohol withdrawal: Status: Acute (2) Alcohol abuse: Status: Acute (3) Alcohol intoxication: Status: Acute (4) DVT (deep venous thrombosis): Status: Acute (5) UGIB (upper gastrointestinal bleed): Status: Acute (6) Hypomagnesemia: Status: Acute (7) Pancytopenia: Status: Acute (8) Neuropathy: Status: Acute (9) COPD (chronic obstructive pulmonary disease): Status: Acute Plan 64-year-old male with a history of EtOH use disorder, tobacco use disorder, DVT on Eliquis, COPD not on home supplemental oxygen, peripheral neuropathy, presents with complaints of atypical chest pain and nausea and seeking rehabilitation for EtOH abuse, admitted with EtOH intoxication & withdrawal with severe electrolyte deficiencies and alcoholic hepatitis. EtOH Abuse ETOH intoxication EtOH Withdrawal PLAN - CIWA - Phenobarbital withdrawal protocol - Thiamine IV 400mg x3 days - Thiamine 100mg OD PO after x3 days - Folic acid - Addiction medicine consultation Suspected upper GI bleed Melena Endorses black tarry stools ongoing for the past 3 days, with associated epigastric pain PLAN - pantoprazole 40 mg b.i.d. IV - gastroenterology consultation placed - holding apixaban and VTE prophylaxis Hypomagnesemia Hypokalemia Failure to thrive in adult Mg 1.4 today - MgO2 400mg OD PO added K 3.8 today - stable PLAN - K >4 - Mg >2 - MgO2 400mg OD PO - repeat BMP - dietitian consultation Alcoholic hepatitis Hepatosteatosis Cholelithiasis without cholecystitis ALT/AST downtrending INR 1.1 No evidence of dysfunction of hepatic synthetic action Robbie's Discriminant Function score: 1.4 (good prognosis - no need for steroids) Evaluation for hepatic dysfunction ongoing RUQ US showing hepatosteatosis Cholelithiasis without cholecystitis PLAN - Trend LFTs - Avoid hepatotoxins History of DVT History of IVC filter placement On Anticoagulation INR 1.1 PLAN - holding apixaban and chemical VTE prophylaxis Pancytopenia - Leukopenia - Anemia - Thrombocytopenia Etiologically possibly 2/2 bone marrow suppression in setting of ETOH abuse Other possible pathology could be superimposed such as MDS Anemeia likely exacerbated by suspected UGIB PLAN - outpatient evaluation with Hematology/Oncology Smoker Smoking cessation counseling provided Patient refuses nicotine patch or other chemical supports QUALITY METRICS - VTE: SCDs - CODE STATUS: Full code - DIET: regular Total time managing care of this patient today: 35 minutes. Quality Stroke Does the patient have a stroke diagnosis?: No VTE Prior VTE?: Yes VTE Risk Level:: Medical - moderate - high VTE Device Contraindication: N/A - Device Ordered VTE Drug Contraindication: Treatment Not Indicated (contraindicated )
--- NOTE | 2025-01-20 03:24 | OP_ITS ---
DATE OF SERVICE: 01/19/2025 SURGEON: Shiraz Mcginnis MD INDICATIONS: The patient presents for evaluation of upper GI bleeding. Full consent has been obtained from him for this, including risks of bleeding and perforation. PREOPERATIVE DIAGNOSIS: Upper gastrointestinal bleeding. POSTOPERATIVE DIAGNOSIS: PROCEDURE PERFORMED: Esophagogastroduodenoscopy with biopsies, and WATS brushings of Martinez's mucosa. ESTIMATED BLOOD LOSS: COMPLICATIONS: ANESTHESIA: Medication used, monitored anesthesia care. ASSISTANTS: SPECIMENS: POSTOPERATIVE DIAGNOSES: Upper gastrointestinal bleeding, nonbleeding gastric antral ulcer, mild antral gastritis, duodenitis, hiatal hernia, and Martinez esophagus. DESCRIPTION OF PROCEDURE: The patient was placed in the left lateral decubitus position. The Olympus video gastroscope was passed in the posterior oropharynx and upper esophagus under direct vision. The scope was passed slowly to the distal esophagus. The gastroesophageal junction was seen at 36 cm. Extending from this to 33 cm were segments of Martinez's appearing mucosa but without any overlying esophagitis or any lesions. There were no esophageal varices. The scope entered the stomach into a small hiatal hernia. The scope was advanced to the pylorus. The duodenum was cannulated to the descending portion. The duodenum including the bulb was carefully inspected. The duodenal bulb was notable for duodenitis with associated edema and erythema. There were no discrete ulcerations. The scope was withdrawn back to the stomach. The gastric antrum and body had some mild overlying gastritis with some erythema and edema, but no sign of any bleeding. Along the greater curvature, was an approximately 10 mm nonbleeding benign-appearing gastric ulcer. The base was clean. I obtained biopsies from the antrum to rule out Helicobacter pylori. The scope was retroflexed visualizing the proximal stomach carefully which appeared normal, without any sign of mass, ulceration, varices, or portal gastropathy.. The scope was straightened and withdrawn back into the esophagus. Given his relative thrombocytopenia, I opted not to perform multiple biopsies from the Martinez's appearing mucosa due to the thrombocytopenia and underlying portal hypertension. I did obtain brushings from the segment of Martinez's appearing mucosa with a WATS test. Proximal to 33 cm, the esophageal mucosa appeared normal. The scope was withdrawn from the patient. He tolerated the procedure well and was returned to the recovery area in stable condition. IMPRESSION: 1. 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 2. Hiatal hernia. 3. Nonbleeding gastric ulcer. 4. Mild gastritis, rule out Helicobacter pylori. 5. Duodenitis. PLAN: The patient will be changed to a p.o. PPI and I would recommend he continue that long-term given his risk factors of smoking and drinking. His diet will be advanced. He should hold Eliquis and all blood thinners for at least 2 weeks. He should avoid all aspirin and NSAIDs long-term. He has been advised again to avoid alcohol long-term. He will have followup laboratories in the morning. Depending upon the results of the biopsies, he may need a followup visit in the office to arrange for any followup endoscopies as needed. I did leave a voicemail with the patient's son, Real, at the patient's request. MD KALPANA Mcneil/BETTY / [phone] MTDD
[2025-01-20 03:38] VITALS: BP 126/62; PULSE 65; RESP 18; TEMP 36.2; O2SAT 97
[2025-01-20 06:17] LABS: MANUAL DIFF FLAG NO
[2025-01-20 06:25] LABS: Hematocrit 29.5 % (42.0-52.0); Hemoglobin 10.0 g/dl (14.0-18.0); Imm Gran Abs Auto 0.03 X10*3/uL (0.00-0.03); Imm Gran Pct Auto 0.7 % (0.0-0.4); Lymphocytes Absolute Auto 0.9 X10*3/uL (1.2-4.9); Mean Corpuscular HGB Conc 33.9 g/dl (31.0-36.0); Mean Corpuscular Hemoglobin 31.1 pg (27.0-33.0); Mean Corpuscular Volume 91.6 fL (80.0-98.0); NRBC Abs Auto 0.000 X10*3/uL (0.0-0.012); NRBC Pct Auto 0.0 /100WBC (0.0-0.2); Red Blood Count 3.22 X10*6/uL (4.60-5.80); White Blood Count 4.1 X10*3/uL (4.8-10.8)
[2025-01-20 06:27] LABS: Platelet Count 80 X10*3/uL (160-400)
[2025-01-20 06:47] VITALS: BP 115/70; PULSE 79; RESP 16; TEMP 36.6; O2SAT 95
[2025-01-20 07:03] LABS: Alanine Aminotransferase 47 U/L (0-40); Albumin Level 2.8 g/dL (3.5-5.0); Alkaline Phosphatase 172 U/L (39-117); Anion Gap 13 (12-20); Aspartate Amino Transferase 84 U/L (5-37); Blood Urea Nitrogen 11 mg/dL (9-16); Calcium 8.2 mg/dL (8.4-10.2); Carbon Dioxide 29 mmol/L (22-29); Chloride 100 mmol/L (96-108); Creatinine Clr Calc Pharmacy 109.9; Estimated Glomerular Filt Rate > 60; Magnesium 1.4 mg/dL (1.6-2.6); Potassium 3.8 mmol/L (3.3-5.1); Sodium 138 mmol/L (135-145); Total Protein 5.5 g/dL (6.5-8.0)
[2025-01-20] MEDS: 0.9 % Sodium Chloride Flush 3 ML SYRINGE IVFLUSH ×3 (08:46→21:06)
[2025-01-20] MEDS: Albuterol Sulfate 90 MCG 8 GM INHALER 2 PUFF INHALE ×3 (09:05→21:21)
--- NOTE | 2025-01-20 11:53 | HO.PM.IMPN ---
Subjective Subjective Date of Service: 01/20/25 Interval History: Feels well today, no new issues or complaints. Results of operative note reveal Martinez's esophagus, hiatal hernia, nonbleeding gastric ulcer, mild gastritis and duodenitis, ruling out Helicobacter pylori Review of Systems Review of Systems: Yes all other systems are reviewed and are negative Physical Exam Exam: Exam: General: A&O x3, oriented to time place person and situation, comfortable, no pain. Breath smells of alcohol. Disheveled Cardiac: S1, S2 auscultated with no S3/4, no MRG. Well perfused. Respiratory: Normal breath sounds auscultated throughout all lung zones. Wheezing noted in the upper lobes bilaterally without rales or crepitations. Normal rate. GI/ : Mild tenderness to palpation of the left lower quadrant, without rebound guarding ecchymosis. MSK: Normal ambulation without pain at bony prominences or musculature. Generalized muscular atrophy in upper and lower extremities and temporal muscle wasting Neurological: Normal neurological examination on overview, without obvious CN II-XII abnormalities. Vital Signs: Vital Signs: Last Vital Signs Temp 98 F 01/20/25 06:47 Pulse 79 01/20/25 06:47 Resp 16 01/20/25 06:47 BP 115/70 01/20/25 06:47 Pulse Ox 95 01/20/25 06:47 O2 Del Method Room Air 01/20/25 06:47 O2 Flow Rate 6 01/19/25 16:06 BMI result Body Mass Index 21.0 Objective Data Active Medications Acetaminophen (Acetaminophen 325 Mg Tablet) 650 mg PO Q6H PRN PRN Reason: Pain, Mild 1-3,fever,headache Last Admin: 01/20/25 11:28 Dose: 650 mg Documented By: TANNER Albuterol Sulfate (Albuterol Sulfate 90 Mcg 8 Gm Inhaler) 2 puff INHALE Q4H PRN PRN Reason: Shortness of Breath Last Admin: 01/20/25 09:05 Dose: 2 puff Documented By: TANNER Calcium Carbonate (Calcium Carbonate 750 Mg Tab.Chew) 750 mg PO Q4H PRN PRN Reason: Heartburn Folic Acid (Folic Acid 1 Mg Tablet) 1 mg PO DAILY [facility] Last Admin: 01/20/25 08:52 Dose: 1 mg Documented By: TANNER Hydroxyzine HCl (Hydroxyzine Hcl 50 Mg Tablet) 50 mg PO BID [facility] Last Admin: 01/20/25 08:52 Dose: 50 mg Documented By: TANNER Thiamine HCl 400 mg/ Sodium (Chloride) 104 mls @ 208 mls/hr IV DAILY [facility] Last Infusion: 01/20/25 11:24 Dose: Infused Documented By: TANNER Magnesium Hydroxide (Milk Of Magnesia 30 Ml Oral.Susp) 30 ml PO DAILY PRN PRN Reason: Constipation Magnesium Oxide (Magnesium Oxide 400 Mg Tablet) 400 mg PO DAILY [facility] Last Admin: 01/20/25 08:52 Dose: 400 mg Documented By: TANNER Melatonin (Melatonin 3 Mg Tablet) 6 mg PO BEDTIME PRN PRN Reason: Insomnia Last Admin: 01/19/25 22:29 Dose: 6 mg Documented By: TARIQ Naloxone HCl (Naloxone Hcl 0.4 Mg/Ml Vial) 0.04 mg IVPUSH Q5M PRN PRN Reason: Excessive sedation or RR < 8 Omeprazole (Omeprazole 40 Mg Capsule.) 40 mg PO DAILY@0630 [facility] Last Admin: 01/20/25 05:27 Dose: 40 mg Documented By: ANNETTE Ondansetron HCl (Ondansetron Hcl 4 Mg/2 Ml Vial) 4 mg IVPUSH Q6H PRN PRN Reason: Nausea and Vomiting Last Admin: 01/17/25 16:10 Dose: 4 mg Documented By: JASON Pharmacy Consult (Consult Rx Etoh Phenob Im/Po) 1 each MISCELLANE ONCE PRN; Protocol PRN Reason: Consult order Phenobarbital (Phenobarbital 30 Mg Tablet) 30 mg PO BID [facility]; Protocol Stop: 01/21/25 21:01 Last Admin: 01/20/25 08:52 Dose: 30 mg Documented By: TANNER Phenobarbital (Phenobarbital 30 Mg Tablet) 30 mg PO DAILY [facility]; Protocol Stop: 01/23/25 09:01 Sodium Chloride (0.9 % Sodium Chloride Flush 3 Ml Syringe) [facility] Last Admin: 01/20/25 08:46 Dose: 3 ml Documented By: TANNER Labs 01/20/25 06:08 01/20/25 06:08 Labs: Laboratory Results - last 24 hr 01/20/25 06:08 MCV 91.6 MCH 31.1 MCHC 33.9 RDW 17.0 H Plt Count 80 L MPV 9.8 Immature Gran % (Auto) 0.7 H Neut % (Auto) 66.0 Lymph % (Auto) 21.7 [place] % (Auto) 8.2 Eos % (Auto) 2.7 Baso % (Auto) 0.7 Lymph # (Auto) 0.9 L [place] # (Auto) 0.3 Eos # (Auto) 0.1 Baso # (Auto) 0.0 Abs Immat Gran (auto) 0.03 Absolute Neuts (auto) 2.7 Absolute Nucleated RBC 0.000 Nucleated RBC % (auto) 0.0 Anion Gap 13 Estim Creat Clear Calc 109.9 Estimated GFR > 60 Random Glucose 124 H Calcium 8.2 L Magnesium 1.4 L* Total Bilirubin 0.7 AST 84 H ALT 47 H Alkaline Phosphatase 172 H Total Protein 5.5 L Albumin 2.8 L Assessment and Plan (1) Alcohol withdrawal: Status: Acute (2) Alcohol abuse: Status: Acute (3) Alcohol intoxication: Status: Acute (4) DVT (deep venous thrombosis): Status: Acute (5) Presence of IVC filter: Status: Acute (6) UGIB (upper gastrointestinal bleed): Status: Acute (7) Alcoholic hepatitis: Status: Acute (8) Pancytopenia: Status: Acute (9) Hypomagnesemia: Status: Acute (10) COPD (chronic obstructive pulmonary disease): Status: Acute (11) Gastritis: Status: Acute (12) Duodenitis: Status: Acute (13) Martinez esophagus: Status: Acute (14) Gastric ulcer: Status: Acute Plan 64-year-old male with a history of EtOH use disorder, tobacco use disorder, DVT on Eliquis, COPD not on home supplemental oxygen, peripheral neuropathy, presents with complaints of atypical chest pain and nausea and seeking rehabilitation for EtOH abuse, admitted with EtOH intoxication & withdrawal with severe electrolyte deficiencies and alcoholic hepatitis. EtOH Abuse ETOH intoxication EtOH Withdrawal PLAN - CIWA - Phenobarbital withdrawal protocol - Thiamine IV 400mg x3 days - Thiamine 100mg OD PO after x3 days - Folic acid - Addiction medicine consultation Upper GI bleed Martinez's esophagus Gastritis Duodenitis Gastric ulcer Endorses black tarry stools ongoing for the past 3 days, with associated epigastric pain Surgical results 01/19 revealing multiple features as above. Gastroenterology recommendations appreciated PLAN - pantoprazole 40 mg b.i.d. IV - gastroenterology consultation placed - holding apixaban and VTE prophylaxis - Pending H pylori testing Hypomagnesemia Hypokalemia Failure to thrive in adult Mg 1.4 today - MgO2 400mg OD PO added K 3.8 today - stable PLAN - K >4 - Mg >2 - MgO2 400mg OD PO - repeat BMP - dietitian consultation Alcoholic hepatitis Hepatosteatosis Cholelithiasis without cholecystitis ALT/AST downtrending INR 1.1 No evidence of dysfunction of hepatic synthetic action Maddrey's Discriminant Function score: 1.4 (good prognosis - no need for steroids) Evaluation for hepatic dysfunction ongoing RUQ US showing hepatosteatosis Cholelithiasis without cholecystitis PLAN - Trend LFTs - Avoid hepatotoxins History of DVT History of IVC filter placement On Anticoagulation INR 1.1 PLAN - holding apixaban and chemical VTE prophylaxis Pancytopenia - Leukopenia - Anemia - Thrombocytopenia Etiologically possibly 2/2 bone marrow suppression in setting of ETOH abuse Other possible pathology could be superimposed such as MDS Anemeia likely exacerbated by suspected UGIB PLAN - outpatient evaluation with Hematology/Oncology Smoker Smoking cessation counseling provided Patient refuses nicotine patch or other chemical supports QUALITY [employer] - VTE: SCDs - CODE STATUS: Full code - DIET: Regular Total time managing care of this patient today: 35 minutes. Quality Stroke Does the patient have a stroke diagnosis?: No VTE Prior VTE?: Yes VTE Risk Level:: Medical - moderate - high VTE Device Contraindication: N/A - Device Ordered VTE Drug Contraindication: Treatment Not Indicated (contraindicated )
[2025-01-20 15:37] VITALS: BP 119/60; PULSE 76; RESP 18; TEMP 36.6; O2SAT 96
[2025-01-20] MEDS: Nicotine 7 MG PATCH.TD24 TRANSDERMA (17:11)
[2025-01-20 20:00] VITALS: BP 125/82; PULSE 74; RESP 18; TEMP 36.2; O2SAT 94
[2025-01-21 03:29] VITALS: BP 140/76; PULSE 68; RESP 18; TEMP 36.3; O2SAT 95
[2025-01-21 06:23] LABS: MANUAL DIFF FLAG NO
[2025-01-21 06:27] LABS: Hematocrit 32.8 % (42.0-52.0); Hemoglobin 10.8 g/dl (14.0-18.0); Imm Gran Abs Auto 0.02 X10*3/uL (0.00-0.03); Imm Gran Pct Auto 0.6 % (0.0-0.4); Lymphocytes Absolute Auto 0.9 X10*3/uL (1.2-4.9); Mean Corpuscular HGB Conc 32.9 g/dl (31.0-36.0); Mean Corpuscular Hemoglobin 30.4 pg (27.0-33.0); Mean Corpuscular Volume 92.4 fL (80.0-98.0); NRBC Abs Auto 0.000 X10*3/uL (0.0-0.012); NRBC Pct Auto 0.0 /100WBC (0.0-0.2); Platelet Count 107 X10*3/uL (160-400); Red Blood Count 3.55 X10*6/uL (4.60-5.80); White Blood Count 3.3 X10*3/uL (4.8-10.8)
[2025-01-21 06:43] VITALS: BP 116/63; PULSE 72; RESP 17; TEMP 36.6; O2SAT 95
[2025-01-21 06:54] LABS: Alanine Aminotransferase 46 U/L (0-40); Albumin Level 3.2 g/dL (3.5-5.0); Alkaline Phosphatase 185 U/L (39-117); Aspartate Amino Transferase 70 U/L (5-37); Blood Urea Nitrogen 11 mg/dL (9-16); Calcium 8.7 mg/dL (8.4-10.2); Creatinine Clr Calc Pharmacy 106.5; Estimated Glomerular Filt Rate > 60; Total Protein 6.1 g/dL (6.5-8.0)
[2025-01-21 07:07] LABS: Anion Gap 14 (12-20); Carbon Dioxide 27 mmol/L (22-29); Chloride 102 mmol/L (96-108); Magnesium 1.5 mg/dL (1.6-2.6); Potassium 4.8 mmol/L (3.3-5.1); Sodium 138 mmol/L (135-145)
--- NOTE | 2025-01-21 07:40 | HO.POSTANES ---
Post Anesthesia Evaluation Post Anesthesia Evaluation Date of Service: 01/21/25 Vital Signs: Vital Signs Temp Pulse Resp BP Pulse Ox O2 Del Method 01/21/25 06:43 98 F 72 17 116/63 95 Room Air 01/21/25 03:29 97.3 F 68 18 140/76 H 95 Room Air 01/20/25 20:00 97.1 F 74 18 125/82 94 Room Air Anesthesia: TIVA Mental Status: Awake Pain Control: Satisfactory Nausea/Vomiting: None Hydration: Adequate Anesthesia-Related Issues: No Anes. Related Issues
[2025-01-21] MEDS: Fluticasone/Umeclidinium/Vilanterol 100/62.5/25 BLST.W.DEV 1 PUFF INHALE (07:46)
[2025-01-21] MEDS: Albuterol Sulfate 90 MCG 8 GM INHALER 2 PUFF INHALE ×2 (07:47→17:29)
[2025-01-21 07:48] VITALS: PULSE 72; RESP 17; O2SAT 93
[2025-01-21] MEDS: Nicotine 7 MG PATCH.TD24 TRANSDERMA (07:48)
[2025-01-21] MEDS: 0.9 % Sodium Chloride Flush 3 ML SYRINGE IVFLUSH ×3 (07:50→20:32)
--- NOTE | 2025-01-21 11:15 | HO.PM.IMPN ---
Subjective Subjective Date of Service: 01/21/25 Interval History: seen and examined reports feeling weak diet slowly improving Review of Systems Negative except HPI/interval history. Physical Exam Exam: Exam: General - no acute distress, disheveled, appears chronically ill Cardiovascular - regular rate and rhythm, S1-S2 Lungs - normal respiratory effort, clear to auscultation bilaterally, no wheezing Abdomen - soft, nontender, no rebound or guarding Extremities - no edema bilaterally Neuro - awake and alert, no focal deficits Vital Signs: Vital Signs: Last Vital Signs Temp 98 F 01/21/25 06:43 Pulse 72 01/21/25 07:48 Resp 17 01/21/25 07:48 BP 116/63 01/21/25 06:43 Pulse Ox 95 01/21/25 06:43 O2 Del Method Room Air 01/21/25 06:43 O2 Flow Rate 6 01/19/25 16:06 BMI result Body Mass Index 21.0 Objective Data Active Medications Acetaminophen (Acetaminophen 325 Mg Tablet) 650 mg PO Q6H PRN PRN Reason: Pain, Mild 1-3,fever,headache Last Admin: 01/20/25 21:06 Dose: 650 mg Documented By: ANNETTE Albuterol Sulfate (Albuterol Sulfate 90 Mcg 8 Gm Inhaler) 2 puff INHALE Q4H PRN PRN Reason: Shortness of Breath Last Admin: 01/21/25 07:47 Dose: 2 puff Documented By: JW Albuterol/Ipratropium (Albuterol/Iprat 2.5/0.5mg 3 Ml Ampul.Neb) 3 ml INHALE RQ4H PRN PRN Reason: Wheezing Calcium Carbonate (Calcium Carbonate 750 Mg Tab.Chew) 750 mg PO Q4H PRN PRN Reason: Heartburn Fluticasone/Umeclidinium/Vilanterol (Fluticasone/Umeclidinium/Vilanterol 100/62.5/25 Blst.W.Dev) 1 puff INHALE RDAILY [facility] Last Admin: 01/21/25 07:46 Dose: 1 puff Documented By: JW Folic Acid (Folic Acid 1 Mg Tablet) 1 mg PO DAILY [facility] Last Admin: 01/21/25 07:49 Dose: 1 mg Documented By: TANNER Hydroxyzine HCl (Hydroxyzine Hcl 50 Mg Tablet) 50 mg PO BID [facility] Last Admin: 01/21/25 07:50 Dose: 50 mg Documented By: TANNER Magnesium Hydroxide (Milk Of Magnesia 30 Ml Oral.Susp) 30 ml PO DAILY PRN PRN Reason: Constipation Magnesium Oxide (Magnesium Oxide 400 Mg Tablet) 400 mg PO DAILY [facility] Last Admin: 01/21/25 07:50 Dose: 400 mg Documented By: TANNER Melatonin (Melatonin 3 Mg Tablet) 6 mg PO BEDTIME PRN PRN Reason: Insomnia Last Admin: 01/20/25 21:07 Dose: 6 mg Documented By: ANNETTE Naloxone HCl (Naloxone Hcl 0.4 Mg/Ml Vial) 0.04 mg IVPUSH Q5M PRN PRN Reason: Excessive sedation or RR < 8 Nicotine (Nicotine 7 Mg Patch.Td24) 7 mg TRANSDERMA DAILY [facility] Last Admin: 01/21/25 07:48 Dose: 7 mg Documented By: TANNER Omeprazole (Omeprazole 40 Mg Capsule.) 40 mg PO DAILY@0630 [facility] Last Admin: 01/21/25 06:09 Dose: 40 mg Documented By: ANNETTE Ondansetron HCl (Ondansetron Hcl 4 Mg/2 Ml Vial) 4 mg IVPUSH Q6H PRN PRN Reason: Nausea and Vomiting Last Admin: 01/17/25 16:10 Dose: 4 mg Documented By: JASON Pharmacy Consult (Consult Rx Etoh Phenob Im/Po) 1 each MISCELLANE ONCE PRN; Protocol PRN Reason: Consult order Phenobarbital (Phenobarbital 30 Mg Tablet) 30 mg PO BID [facility]; Protocol Stop: 01/21/25 21:01 Last Admin: 01/21/25 07:49 Dose: 30 mg Documented By: TANNER Phenobarbital (Phenobarbital 30 Mg Tablet) 30 mg PO DAILY [facility]; Protocol Stop: 01/23/25 09:01 Sodium Chloride (0.9 % Sodium Chloride Flush 3 Ml Syringe) 3 ml IVFLUSH QSHIFT [facility] Last Admin: 01/21/25 07:50 Dose: 3 ml Documented By: TANNER Thiamine HCl (Thiamine Hcl 100 Mg Tablet) 100 mg PO DAILY [facility] Labs 01/21/25 05:52 01/21/25 05:52 Labs: Laboratory Results - last 24 hr 01/21/25 05:52 MCV 92.4 MCH 30.4 MCHC 32.9 RDW 17.2 H Plt Count 107 L D MPV 9.5 Immature Gran % (Auto) 0.6 H Neut % (Auto) 54.7 Lymph % (Auto) 25.8 [place] % (Auto) 13.1 H Eos % (Auto) 4.9 H Baso % (Auto) 0.9 Lymph # (Auto) 0.9 L [place] # (Auto) 0.4 Eos # (Auto) 0.2 Baso # (Auto) 0.0 Abs Immat Gran (auto) 0.02 Absolute Neuts (auto) 1.8 L Absolute Nucleated RBC 0.000 Nucleated RBC % (auto) 0.0 Anion Gap 14 Estim Creat Clear Calc 106.5 Estimated GFR > 60 Random Glucose 96 Calcium 8.7 D Magnesium 1.5 L Total Bilirubin 0.6 AST 70 H ALT 46 H Alkaline Phosphatase 185 H Total Protein 6.1 L Albumin 3.2 L Assessment and Plan (1) Alcohol withdrawal: Status: Acute (2) Alcohol abuse: Status: Acute (3) Alcohol intoxication: Status: Acute (4) DVT (deep venous thrombosis): Status: Acute (5) Presence of IVC filter: Status: Acute (6) UGIB (upper gastrointestinal bleed): Status: Acute (7) Alcoholic hepatitis: Status: Acute (8) Pancytopenia: Status: Acute (9) Hypomagnesemia: Status: Acute (10) COPD (chronic obstructive pulmonary disease): Status: Acute (11) Gastritis: Status: Acute (12) Duodenitis: Status: Acute (13) Martinez esophagus: Status: Acute (14) Gastric ulcer: Status: Acute Plan 64-year-old male with a history of EtOH use disorder, tobacco use disorder, DVT on Eliquis, COPD not on home supplemental oxygen, peripheral neuropathy, presents with complaints of atypical chest pain and nausea and seeking rehabilitation for EtOH abuse, admitted with EtOH intoxication & withdrawal with severe electrolyte deficiencies and alcoholic hepatitis. EtOH Abuse ETOH intoxication EtOH Withdrawal PLAN - CIWA - Phenobarbital withdrawal protocol s/p IV thiamine, changed to p.o. starting tomorrow. - Folic acid - Addiction medicine consultation Upper GI bleed Martinez's esophagus Gastritis Duodenitis Gastric ulcer Status post IV PPI, transitioned to p.o. long-term per Gastroenterology notes. GI also recommended to hold Eliquis and all blood thinners for 2 weeks. Avoid aspirin and NSAIDs long-term. Hypomagnesemia Hypokalemia Failure to thrive in adult Mg 1.5 today, K >4 -- will continue Po Magox and give 2g iv x 1 now Alcoholic hepatitis Hepatosteatosis Cholelithiasis without cholecystitis ALT/AST downtrending INR 1.1 No evidence of dysfunction of hepatic synthetic action Maddrey's Discriminant Function score: 1.4 (good prognosis - no need for steroids) Evaluation for hepatic dysfunction ongoing RUQ US showing hepatosteatosis Cholelithiasis without cholecystitis PLAN - Trend LFTs - Avoid hepatotoxins History of DVT History of IVC filter placement On Anticoagulation INR 1.1 PLAN - holding apixaban - 2 weeks per GI recs Pancytopenia - Leukopenia - Anemia - Thrombocytopenia Etiologically possibly 2/2 bone marrow suppression in setting of ETOH abuse Other possible pathology could be superimposed such as MDS Anemeia likely exacerbated by suspected UGIB PLAN - outpatient evaluation with Hematology/Oncology Smoker Smoking cessation counseling provided Patient refuses nicotine patch or other chemical supports Generalized weakness willorder PT eval dispo: likely STR Total time managing care of this patient today: 35 minutes. Quality Stroke Does the patient have a stroke diagnosis?: No VTE Prior VTE?: Yes VTE Risk Level:: Medical - moderate - high VTE Device Contraindication: N/A - Device Ordered VTE Drug Contraindication: Treatment Not Indicated (contraindicated )
[2025-01-21] MEDS: Magnesium Sulfate/H2O 2 GM/50 ML PIGGYBACK IV (11:28)
[2025-01-21 16:00] VITALS: BP 120/82; PULSE 75; RESP 18; TEMP 36.4; O2SAT 95
[2025-01-21 20:00] VITALS: BP 127/54; PULSE 94; RESP 16; TEMP 36.3; O2SAT 93
[2025-01-21 20:44] LABS: Uric Acid 4.2 mg/dL (3.4-7.0)
[2025-01-22 03:16] VITALS: BP 107/62; PULSE 68; RESP 14; TEMP 36.1; O2SAT 96
[2025-01-22 07:00] VITALS: BP 120/67; PULSE 75; RESP 16; TEMP 36.3; O2SAT 95
[2025-01-22 07:53] LABS: Anion Gap 15 (12-20); Blood Urea Nitrogen 13 mg/dL (9-16); Calcium 9.4 mg/dL (8.4-10.2); Carbon Dioxide 26 mmol/L (22-29); Chloride 101 mmol/L (96-108); Creatinine Clr Calc Pharmacy 90.9; Estimated Glomerular Filt Rate > 60; Potassium 5.5 mmol/L (3.3-5.1); Sodium 136 mmol/L (135-145)
[2025-01-22] MEDS: Fluticasone/Umeclidinium/Vilanterol 100/62.5/25 BLST.W.DEV 1 PUFF INHALE (08:13)
[2025-01-22] MEDS: Nicotine 7 MG PATCH.TD24 TRANSDERMA (08:16)
[2025-01-22] MEDS: 0.9 % Sodium Chloride Flush 3 ML SYRINGE IVFLUSH (08:17)
[2025-01-22] MEDS: Albuterol Sulfate 90 MCG 8 GM INHALER 2 PUFF INHALE (08:20)
[2025-01-22 08:21] VITALS: PULSE 75; RESP 16; O2SAT 92
[2025-01-22 08:44] LABS: Folate 13.9 ng/mL (> or = 4.0); Vitamin B12 572 pg/mL (200-900)
[2025-01-22 08:54] VITALS: PULSE 75
--- NOTE | 2025-01-22 11:45 | MHC.CM.PN ---
Addendum entered by Ana Yañez RN 01/22/25 13:09: Patient dc'd home w/ new [facility]. He will arrange his own transport. Addendum entered by Ana Yañez RN 01/22/25 11:55: Patient now reporting that he declines STR. Ambulating in his room w/ cane independently. Prefers home w/ HVNA. MD updated. Original Note: Per MD, patient medically cleared for dc. PT rec STR. Patient is anxious, but agreeable. No preference to facility. Referrals sent via [facility]. Awaiting bed offer.
--- NOTE | 2025-01-22 12:47 | HO.WOUND ---
Wound Consult: Initial 64yr old male admitted to [facility] [place] on 01/17/25 - See progress notes and H&P for detailed history.? Wound consult placed for righ Hand Skin Tear.? Patient agreeable to assessment. right Hand Etiology: ??Skin Tear patient reports secondary to fall at home prior to admission Measurements: 2cm x 1cm x 0.2cm Wound Bed: pink clean pale tissue Drainage / Odor: scant serous fluid noted Edges: ? no flap present irregular edges Rachele wound: ?intact bruising noted No Induration, Fluctuance or Warmth noted Pain: tenderness noted with dressing change Goals of Treatment: ? Moist wound healing Recommendations: Skin Tear -?Per Protocol ?- Cleanse with normal saline, pat dry. ?Apply Xeroform secure with Abd pads, gauze wrap and tape. Change Daily. ?Do not apply tape to patient?s skin.? Avoid Adhesive application to skin - when necessary, apply skin prep prior.? Re-consult wound care Nurse for wound deterioration or wound changes.
--- NOTE | 2025-01-22 12:49 | PM.DS ---
DS: Providers Provider Date of Service: 01/22/25 Date of admission: 01/17/25 10:36 Date of discharge: 01/22/25 Primary care physician: Unknown Physician Consults: 01/17/25 08:30 ED Recovery Team Consult Stat Comment: Reason for consultation: Seeking detox from alcohol 01/17/25 17:50 Consult to Gastroenterology Routine Consulting Provider: [facility] Reason for consultation: melena, etoh 01/22/25 08:27 Consult to Wound Care Routine Consulting Provider: [facility] [place] Wound Care Management Reason for consultation: skin tear DS: Diagnosis Discharge Diagnosis (1) Alcohol withdrawal: Status: Acute (2) Alcohol abuse: Status: Acute (3) Alcohol intoxication: Status: Acute (4) DVT (deep venous thrombosis): Status: Acute (5) Presence of IVC filter: Status: Acute (6) UGIB (upper gastrointestinal bleed): Status: Acute (7) Alcoholic hepatitis: Status: Acute (8) Pancytopenia: Status: Acute (9) Hypomagnesemia: Status: Acute (10) COPD (chronic obstructive pulmonary disease): Status: Acute (11) Gastritis: Status: Acute (12) Duodenitis: Status: Acute (13) Martinez esophagus: Status: Acute (14) Gastric ulcer: Status: Acute DS: Summary Hospital Course Hospital Course: 64-year-old male with a history of EtOH use disorder, tobacco use disorder, DVT on Eliquis, COPD not on home supplemental oxygen, peripheral neuropathy, presents with complaints of atypical chest pain and nausea and seeking rehabilitation for EtOH abuse, admitted with EtOH intoxication & withdrawal with severe electrolyte deficiencies and alcoholic hepatitis. PRESENTATION Date of Service: 01/17/25 Attending physician on admission: Kin Chatman Chief Complaint: epigastric/lower chest pain x2 days 64-year-old male with a history of EtOH use disorder, tobacco use disorder, DVT on Eliquis, COPD not on home supplemental oxygen, peripheral neuropathy, presents to ED seeking rehabilitation for EtOH abuse. Patient reports drinking a pt of whiskey prior to presenting to the hospital. The patient reports that he is an alcoholic, and seeking help. Patient is at times unclear, and represents a challenging historian. Patient has complaints of epigastric and left lower quadrant pain described as a cramping ache, without radiation, ongoing for the past 5 days. The patient reports associated tarry black stool for the past 3 days. He also reports poor p.o. intake/ no food for the past 3 days due to decreased appetite, and because he is an alcoholic . Reports associated nausea, with bilious nonbloody vomiting (temporality of vomiting is unclear). Endorses associated weight loss. Patient denies hematochezia, hematemesis. Lab work reveals leukopenia, anemia and thrombocytopenia. Creatinine returned within normal limits, Potassium 3.1, hypomagnesemia 1.2. LFTs revealing elevated total biliruben 1.4, with AST/ALT elevation 204:88, with elevated Alk Phos. Ethyl alcohol level elevated indicated active intoxication. CXR negative for acute intrathoracic findings. Patient received phenobarbital loading dose in the emergency room and 1 g of sucralfate. PROBLEM LIST EtOH Abuse ETOH intoxication EtOH Withdrawal Withdrew off alcohol without issues. Completed phenobarbital protocol CIWA within normal limits throughout admission Continue - Thiamine 100mg OD PO after x3 days - Folic acid - Naltrexone to be started on discharge to maintain EtOH withdrawal Upper GI bleed Martinez's esophagus Gastritis Duodenitis Gastric ulcer Endorses black tarry stools ongoing for the past 3 days, with associated epigastric pain Surgical results 01/19 revealing multiple features; Results of operative note reveal Martinez's esophagus, hiatal hernia, nonbleeding gastric ulcer, mild gastritis and duodenitis, ruling out Helicobacter pylori. Gastroenterology recommendations appreciated PLAN - pantoprazole 40 mg b.i.d. PO - FU outpatient Gastroenterology - Resume apixaban - Pending H pylori testing Hypomagnesemia Hypokalemia Failure to thrive in adult Mg 1.4 on admission - MgO2 400mg OD PO added Potassium levels within normal limits currently PLAN - MgO2 400mg OD PO Alcoholic hepatitis Hepatosteatosis Cholelithiasis without cholecystitis ALT/AST downtrending INR 1.1 No evidence of dysfunction of hepatic synthetic action Maddrey's Discriminant Function score: 1.4 (good prognosis - no need for steroids) Evaluation for hepatic dysfunction ongoing RUQ US showing hepatosteatosis Cholelithiasis without cholecystitis History of DVT History of IVC filter placement On Anticoagulation INR 1.1 PLAN - Resumed apixaban Pancytopenia - Leukopenia - Anemia - Thrombocytopenia Etiologically possibly 2/2 bone marrow suppression in setting of ETOH abuse Other possible pathology could be superimposed such as MDS Anemeia likely exacerbated by suspected UGIB PLAN - outpatient evaluation with Hematology/Oncology Smoker Smoking cessation counseling provided Patient refuses nicotine patch or other chemical supports Status at Discharge Functional status at discharge: uses cane/walker (recommended to go to [facility], but refused - opting for discharge home with PT ) Overall status at discharge: patient is back to baseline Time Attestation Total time managing care of this patient today: 45 mintues. Discharge Coordination Time (in mins): 35 Quality: Safe Use of Opioids Does Pt have an Active Cancer Diagnosis on the Problem List?: No Quality: Stroke Does the patient have a stroke diagnosis?: No Physical Exam Exam: Exam: General: A&O x3, oriented to time place person and situation, comfortable, no pain. Breath smells of alcohol. Disheveled Cardiac: S1, S2 auscultated with no S3/4, no MRG. Well perfused. Respiratory: Normal breath sounds auscultated throughout all lung zones. Mild wheezing noted in the upper lobes bilaterally without rales or crepitations. Normal rate. GI/ : Mild tenderness to palpation of the left lower quadrant, without rebound guarding ecchymosis. MSK: Normal ambulation without pain at bony prominences or musculature. Generalized muscular atrophy in upper and lower extremities and temporal muscle wasting Neurological: Normal neurological examination on overview, without obvious CN II-XII abnormalities. Vital Signs: Vital Signs: Last Vital Signs Temp 97.4 F 01/22/25 07:00 Pulse 75 01/22/25 08:54 Resp 16 01/22/25 08:21 BP 120/67 01/22/25 07:00 Pulse Ox 95 01/22/25 07:00 O2 Del Method Room Air 01/22/25 07:00 O2 Flow Rate 6 01/19/25 16:06 BMI result Body Mass Index 21.0 DS: Data Data Completed and Pending Completed studies during hospitalization [Text1]: Procedures Detoxification Services for Substance Abuse Treatment (06/08/23) Excision of Buttock Subcutaneous Tissue and Fascia, Open Approach (10/07/22) Pending studies at discharge: Pending at discharge 01/19/25 15:59 Surgical [PTH] Routine Labs on day of discharge: Laboratory Results - last 24 hr 01/21/25 01/22/25 05:52 07:25 Sodium 136 Potassium 5.5 H Chloride 101 Carbon Dioxide 26 Anion Gap 15 BUN 13 Creatinine 0.75 Estim Creat Clear Calc 90.9 Estimated GFR > 60 Random Glucose 92 Uric Acid 4.2 Calcium 9.4 D Vitamin B12 572 Folate 13.9 Discharge Plan Discharge Anticipated Discharge Date/Time: 01/22/25 13:00 Patient Disposition: Home Health Service Discharge Diagnosis: Acute EtOH abuse & withdrawal with severe electrolyte abnormalities & UGIB Referrals: [facility] BROOKS [Outside] - 3-5 Days Referral Note: [facility] BROOKS will call you to schedule home physical therapy Physician,Unknown J [Primary Care Provider, Medical] - 1 Week Discharge Medications: New folic acid 1 mg Tablet 1 mg PO DAILY 30 Days Qty: 30 0RF thiamine mononitrate (vit B1) 100 mg Tablet 100 mg PO DAILY 30 Days Qty: 30 0RF Trelegy Ellipta 100-62.5-25 mcg Blister With Device 1 inh inhalation RDAILY 30 Days Qty: 1 0RF nicotine 7 mg/24 hr Patch 24 Hour 7 mg transdermal DAILY 30 Days Qty: 1 0RF naltrexone 50 mg tablet 50 mg PO DAILY 30 Days Qty: 30 0RF Continued Eliquis 5 mg tablet 5 mg PO BID prazosin 1 mg capsule 1 mg PO BEDTIME sertraline 100 mg tablet 200 mg PO DAILY hydroxyzine pamoate 50 mg capsule 50 mg PO BID buspirone 7.5 mg tablet 7.5 mg PO TID mirtazapine 15 mg tablet 15 mg PO BEDTIME albuterol sulfate 90 mcg/actuation HFA aerosol inhaler 2 puff inhalation Q4H PRN (Reason: Shortness Of Breath) melatonin 5 mg tablet 5 - 10 mg PO BEDTIME PRN (Reason: Sleep) Discontinued naltrexone 50 mg tablet 50 mg PO BEDTIME Trelegy Ellipta 100-62.5-25 mcg blister with device 1 ea inhalation DAILY Discharge Orders: Discharge Order (Routine); Ordered 01/22/25 Ordered By: Kin Chatman Diet: Advance to usual diet Activity on Discharge: As tolerated Stand Alone Forms: Patient Portal Discharge page Print Language: Choose Not To Answer Care Plan Goals: As above Health Concerns: As above Plan of Treatment: Resumed taking apixaban 5 mg b.i.d. p.o. Restart taking naltrexone 50 mg OD p.o. Abstain from ETOH Engage with physical therapy at home Follow up with outpatient Hematology/Oncology for pancytopenia Follow up with outpatient Gastroenterology Assessment: Hemodynamically stable, ready for discharge
--- NOTE | 2025-01-22 13:08 | P.F2F_ITS ---
Service Date Service Date: 01/22/25 Encounter Date of encounter: 01/22/25 Reasons for Services Signs and symptoms assessed: Frail, generalized muscular atrophy upper and lower extremities Nutritional deficiency Prolonged hospital stay Reason for nursing home: medication management, medication treatment and teach disease management Reason for physical therapy: home safety and mobility, therapeutic exercises, restore joint function, gait/transfer training, assess need for DME, ADL training and energy conservation Reason for occupational therapy: home safety and mobility, therapeutic exercises, restore joint function, gait/transfer training, assess need for DME, ADL training and energy conservation Homebound: Leaving the home is medically contraindicated at this time without the asist of a device and/or another person due th the listed conditions above and below. Reason homebound: unsteady gait / fall risk, leg weakness and poor balance / fall risk Certification: Based on the above findings, I certify that this patient is confined to the home and needs intermittent nursing home care, physical therapy and/or speech therapy, or continues to need occupational therapy. The patient is under my care, and I have initiated the establishment of the plan of care. The patient will be followed by a physician who will periodically review the plan of care. Time Spent With Patient Time: Total time managing care of this patient today 30 minutes.
== END 2025-01-22 13:27 | disposition home health service (06) | DRG 378 ==
LOC: HO.ED 10:22 → HO.EDOVER 10:42 → HO.IMC 19:04 → HO.S3 01-20 01:15
PROVIDERS: Internal Medicine; Nurse Practitioner Family; Admitting Provider Student in an Organized Health Care Education/Training Program; Emergency Provider Emergency Medicine; PCP Internal Medicine; Visit Provider Hospitalist
PROC: 0DJ08ZZ Inspection of Upper Intestinal Tract, Via Natural or Artificial Opening Endoscopic (ICD-10-PCS; CPT 43235; principal; 2025-01-19 14:20)
DX: K29.71 Gastritis, unspecified, with bleeding (principal); D61.818 Other pancytopenia; F10.139 Alcohol abuse with withdrawal, unspecified; K25.4 Chronic or unspecified gastric ulcer with hemorrhage; F17.210 Nicotine dependence, cigarettes, uncomplicated; Y90.8 Blood alcohol level of 240 mg/100 ml or more; J44.9 Chronic obstructive pulmonary disease, unspecified; F10.129 Alcohol abuse with intoxication, unspecified; E83.42 Hypomagnesemia; E87.6 Hypokalemia; R62.7 Adult failure to thrive; K22.70 Barrett's esophagus without dysplasia; K80.20 Calculus of gallbladder without cholecystitis without obstruction; K70.30 Alcoholic cirrhosis of liver without ascites; K44.9 Diaphragmatic hernia without obstruction or gangrene; K29.80 Duodenitis without bleeding; Z68.21 Body mass index [BMI] 21.0-21.9, adult; K70.10 Alcoholic hepatitis without ascites; Z86.718 Personal history of other venous thrombosis and embolism; Z95.828 Presence of other vascular implants and grafts; Z20.822 Contact with and (suspected) exposure to COVID-19; Z71.6 Tobacco abuse counseling; Z79.01 Long term (current) use of anticoagulants; Z79.51 Long term (current) use of inhaled steroids; Z79.899 Other long term (current) drug therapy
CPT/HCPCS: 36415; 71045; 76705; 80048; 80053; 80076; 80307; 82140; 82248; 82607; 82746; 83690; 83735; 84484; 84550; 85025; 85610; 87637; 88305; 88342; 90656; 93005; 94640; 94664; 97161; 99285; J2003; J2405; J2470; J2560; J2704; J2919; J3010; J3411; J3475; S9485

== ENCOUNTER → 2025-01-17 08:29 | Outpatient (BNV) | payer OTHER, SELFPAY | PROVIDERS: Admitting Provider Student in an Organized Health Care Education/Training Program; Emergency Provider Emergency Medicine; Visit Provider Internal Medicine | DX: I45.2 Bifascicular block (principal) | CPT/HCPCS: 93010 ==

== ENCOUNTER → 2025-01-17 08:29 | Outpatient (BNV) | payer OTHER, SELFPAY | PROVIDERS: Emergency Provider Emergency Medicine; Visit Provider Radiology Body Imaging | DX: K80.20 Calculus of gallbladder without cholecystitis without obstruction (principal); N26.1 Atrophy of kidney (terminal); R07.9 Chest pain, unspecified | CPT/HCPCS: 71045; 76705 ==

== ENCOUNTER → 2025-01-17 10:36 | Outpatient (BNV) | payer OTHER, SELFPAY | PROVIDERS: Admitting Provider Student in an Organized Health Care Education/Training Program; Emergency Provider Emergency Medicine; Visit Provider Hospitalist | DX: F10.939 Alcohol use, unspecified with withdrawal, unspecified (principal); F10.10 Alcohol abuse, uncomplicated; F10.929 Alcohol use, unspecified with intoxication, unspecified; I82.509 Chronic embolism and thrombosis of unspecified deep veins of unspecified lower extremity; K92.2 Gastrointestinal hemorrhage, unspecified; E83.42 Hypomagnesemia; D61.818 Other pancytopenia; G62.9 Polyneuropathy, unspecified; J44.9 Chronic obstructive pulmonary disease, unspecified | CPT/HCPCS: 99223; 99232 ==

== ENCOUNTER 2025-01-24 13:07 | Emergency (ER) | payer OTHER, SELFPAY ==
--- NOTE | ~2025-01-24 | XR_ITS ---
EXAMINATION: XR SHOULDER 2 OR MORE VIEWS LEFT, XR HUMERUS LEFT HISTORY: fall, pain COMPARISON: There are no prior studies available for comparison. FINDINGS: Three views of the left shoulder and AP and lateral views of the left humerus are submitted. Osseous mineralization is normal. There is no fracture or dislocation. The glenohumeral joint is maintained. There is moderate degenerative change of the AC joint with joint space narrowing and osteophyte formation. The visualized portion of the left elbow joint is maintained. The soft tissues are unremarkable. XR/XR shoulder LT min 2V IMPRESSION: No evidence of fracture of the right shoulder or humerus. Electronically signed by: Shiraz Nova MD 01/24/2025 02:29 PM EST
--- NOTE | ~2025-01-24 | XR_ITS ---
EXAMINATION: XR SHOULDER 2 OR MORE VIEWS LEFT, XR HUMERUS LEFT HISTORY: fall, pain COMPARISON: There are no prior studies available for comparison. FINDINGS: Three views of the left shoulder and AP and lateral views of the left humerus are submitted. Osseous mineralization is normal. There is no fracture or dislocation. The glenohumeral joint is maintained. There is moderate degenerative change of the AC joint with joint space narrowing and osteophyte formation. The visualized portion of the left elbow joint is maintained. The soft tissues are unremarkable. XR/XR humerus LT IMPRESSION: No evidence of fracture of the right shoulder or humerus. Electronically signed by: Shiraz Nova MD 01/24/2025 02:29 PM [facility]
--- NOTE | ~2025-01-24 | XR_ITS ---
EXAMINATION: XR WRIST 3 OR MORE VIEWS LEFT, XR HAND 3 VIEWS BILATERAL HISTORY: fall, pain COMPARISON: Comparison is made with the prior examination of the right hand 09/10/2022. FINDINGS: Six views of the bilateral hands for additional views of the left wrist including a scaphoid view are submitted. Osseous mineralization is normal. There is an old healed fracture of the 5th metacarpal neck. There is no acute fracture or dislocation. The joint spaces are preserved. The soft tissues are unremarkable. XR/XR Hand Bilat min 3v IMPRESSION: No evidence of acute fracture of the left wrist and bilateral hands. Electronically signed by: Shiraz Nova MD 01/24/2025 02:32 PM EST
--- NOTE | ~2025-01-24 | XR_ITS ---
EXAMINATION: XR WRIST 3 OR MORE VIEWS LEFT, XR HAND 3 VIEWS BILATERAL HISTORY: fall, pain COMPARISON: Comparison is made with the prior examination of the right hand 09/10/2022. FINDINGS: Six views of the bilateral hands for additional views of the left wrist including a scaphoid view are submitted. Osseous mineralization is normal. There is an old healed fracture of the 5th metacarpal neck. There is no acute fracture or dislocation. The joint spaces are preserved. The soft tissues are unremarkable. XR/XR wrist LT min 3V IMPRESSION: No evidence of acute fracture of the left wrist and bilateral hands. Electronically signed by: Shiraz Nova MD 01/24/2025 02:32 PM [facility]
--- NOTE | ~2025-01-24 | CT_ITS ---
EXAMINATION: CT CHEST WITH CONTRAST CLINICAL INFORMATION: Cough, follow-up COMPARISON: Report from CT performed October 26, [address] performed May 18, 2022 TECHNIQUE: Multidetector volumetric CT imaging of the chest was obtained after the administration of 65 mL of Omnipaque 350 intravenous contrast without immediate adverse reactions. Axial MIP volume rendering provided. Sagittal and coronal reformatted images were obtained. This CT examination was performed using dose optimization techniques as appropriate, variously including the following: *Automated exposure control *Adjustment of mA and/or kV according to patient size (this includes techniques or standardized protocols for targeted exams where dose is matched to indication/reason for exam; i.e. extremities or head) *Use of iterative reconstruction technique FINDINGS: LUNGS: Linear scarring is seen in the posterior base of the right lower lobe. There are mild changes consistent with centrilobular and paraseptal emphysema. There are multiple small subpleural pulmonary nodules. Nodules measured on axial CT #25 Image 20: 3 mm calcified nodule is present in the anteromedial left apex. Image 40: 2 x 3 mm solid pulmonary nodule is present in the lateral aspect of the right upper lobe. Image 56: Also, there is a 2 x 4 mm subpleural nodule along the anterior lateral right upper lobe on the same series. Image 64: 3 mm nodule in lateral right upper lobe. There is minimal groundglass density in the dependent portions of lungs consistent with dependent atelectasis. MEDIASTINUM: Heart size is normal. There is no adenopathy. Atherosclerotic calcifications are visible in the aorta. PLEURA: There is no pleural effusion. As discussed in the lungs section, there are multiple nodular densities involving pleura. AXILLA: No lymphadenopathy. UPPER ABDOMEN: Diffuse fatty changes are present in the liver. There are calcified stones in the gallbladder without wall thickening or adjacent inflammatory change. The right kidney is very small measuring approximately 3.5 cm superior-inferior. It demonstrates functioning renal cortex that is very thin. OSSEOUS STRUCTURES: Lateral right fifth and lateral left sixth seventh and eighth fracture with sclerotic margins are consistent with subacute or chronic injury. Numerous chronic compression fractures and Schmorl's nodes are evident throughout the thoracic spine that appear unchanged since 2022. Compression fractures are most significant at T12 where there is moderate loss of height from the superior endplate. CT/CT chest w IV con IMPRESSION: Report from October 26, 2024 describes a cavitary lesion in the inferior right upper lobe and recommended follow-up PET imaging. Images from that study are not available for comparison. Multiple small pulmonary nodules, at least one which is calcified. Also multiple small subpleural nodules. No further follow-up is indicated per Fleischner Society recommendations, unless the patient falls into a high risk category, in which case a 12 month follow-up CT chest without contrast is optional. High risk patients includes those with a history of smoking, first-degree relative with lung cancer, or exposure to uranium, radon, or asbestos. Bilateral rib fractures, subacute favored over chronic. Lateral right fifth and lateral left sixth seventh and eighth rib fractures. Mild changes of centrilobular and paraseptal emphysema. Chronic changes in the thoracic spine with multiple compression fractures and Schmorl's nodes. Hypoplastic right kidney. Fleischner guidelines were followed. Electronically signed by: Ryan Simpson MD 01/24/2025 05:10 PM [facility]
--- NOTE | ~2025-01-24 | CT_ITS ---
EXAMINATION: CT CERVICAL SPINE WITHOUT CONTRAST CLINICAL INFORMATION: Fall COMPARISON: CT of the cervical spine on June 09, 2023 TECHNIQUE: CT of the cervical spine was obtained without the composition of intravenous contrast. Images were reconstructed in axial, sagittal and coronal planes. This CT examination was performed using dose optimization techniques as appropriate, variously including the following: *Automated exposure control *Adjustment of mA and/or kV according to patient size (this includes techniques or standardized protocols for targeted exams where dose is matched to indication/reason for exam; i.e. extremities or head) *Use of iterative reconstruction technique FINDINGS: Motion in the upper/mid cervical spine limits local evaluation. Alignment and vertebrae: Cervical lordosis is maintained. No significant subluxation. No obvious displaced compression fracture. No displaced acute appearing fracture of the posterior elements. Chronic deformities with of the spinal process of C7, T1 and T2 and the adjacent displaced fracture fragments or heterotopic ossification are similar to 2023. Intervertebral discs: Disc space narrowing and marginal osteophytes are more prominent at C5-C6. Craniovertebral junction: intact. Soft tissues: Posterior soft tissues and prevertebral soft tissues are unremarkable. Other findings: Calcifications at the level of bilateral carotid calcifications. Centrilobular emphysema in the upper lungs. No apical pneumothorax. No severe neuroforaminal stenosis or spinal canal stenosis. CT/CT cervical spine wo IV con IMPRESSION: Study partially limited by motion artifact. No obvious acute fracture or subluxation. If clinical concern persists, recommend repeating examination when patient is able to cooperate. Electronically signed by: Caleb Arias MD 01/24/2025 04:40 PM [facility]
--- NOTE | ~2025-01-24 | CT_ITS ---
EXAMINATION: CT HEAD WITHOUT CONTRAST CLINICAL INFORMATION: Fall, EtOH, unknown head strike. COMPARISON: Numerous priors, most recently 06/09/2023. TECHNIQUE: Contiguous axial imaging was performed from the skull base to vertex without intravenous administration of contrast. This CT examination was performed using dose optimization techniques as appropriate, variously including the following: *Automated exposure control *Adjustment of mA and/or kV according to patient size (this includes techniques or standardized protocols for targeted exams where dose is matched to indication/reason for exam; i.e. extremities or head) *Use of iterative reconstruction technique FINDINGS: There is no evidence of intracranial hemorrhage or extra-axial fluid collection. There is no mass effect, or edema. No CT evidence of acute territorial infarct. Ventricles, sulci, and cisterns are normal in size and configuration for patient age. No hydrocephalus. No midline shift. Negative hyperdense MCA sign. Negative insular ribbon sign. 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 There appears to have been a prior overlying craniotomy. Mild periventricular white matter hypoattenuation is in keeping with small vessel ischemic changes. Partial empty sella present. Globes and orbital contents image normally. There are bilateral lens replacements. No extracranial soft tissue abnormalities. The paranasal sinuses, mastoid air cells, and tympanic cavities are normally aerated. No suspicious bony abnormalities. There are no acute fractures evident. Right frontal craniotomy again noted with involvement of the right orbital roof. Healed fractures of the right-sided zygomatic process. CT/CT head/brain wo IV con IMPRESSION: 1. No acute intracranial abnormality. 2. Stable chronic findings as discussed. Electronically signed by: Jp Joseph MD 01/24/2025 04:25 PM [facility] [place]
[2025-01-24 13:13] VITALS: BP 108/55; BP 110/60; PULSE 86; PULSE 88; RESP 18; TEMP 36.4; O2SAT 93; O2SAT 95; BMI 21.1
[2025-01-24 13:14] VITALS: BP 101/58; PULSE 89; RESP 20; TEMP 36.4; O2SAT 92
--- NOTE | 2025-01-24 13:40 | PC.NURSE ---
HIMA Porter at bedside speaking with patient. Photos obtained of various wounds & bruises, see provider notes/chart. Multiple complaints: left arm pain/bruising, right hand wound, left hand bruising, bilateral feet pain/neuropathy, alcohol use (1 pint of [employer]), last drink just prior to EMS arrival ~12pm today. Has been seen multiple times this week. Pt is requesting someone from the psychiatric team to speak with him, denying SI/HI at this time. Uses cane at baseline. Changed over into hospital attire. Hx recent pneumonia, COPD, falls. Care ongoing by this RN.
--- NOTE | 2025-01-24 13:45 | ED.GENADULT ---
HPI - General Adult General Chief complaint: ETOH/Substance Use Stated complaint: R HAND WOUND X2W,1PT ALBERTO TODAY Time Seen by Provider: 01/24/25 13:22 Source: patient, EMS, RN notes reviewed and old records reviewed Mode of arrival: EMS Limitations: no limitations History of Present Illness ED Provider: VANESSA Perez HPI narrative: 64-year-old male with medical history of alcohol use disorder, gastric ulcer, Martinez esophagus, upper gastrointestinal bleed, alcoholic hepatitis, COPD, DVT on Eliquis, presents to the ED by EMS due to ?malnutrition? and seeking help for alcohol detox. Patient states he is experiencing ?malnutrition? as he has not been able to eat over the last 2 weeks due to loss of appetite that he equates to his drinking habits. Patient states he is currently drinking 2 pt or ?more? of southern comfort per day. Patient states he had a fall approximately 1 week ago where he fell down some stairs with pain in his L shoulder, and L wrist/hand with a laceration of the R hand. Patient does not know if he hit his head. Patient states he is looking for formal detox for help with his alcohol intake. Denies chest pain, SOB, nausea, vomiting, headache, visual changes, MD complaint: L shoulder/hand pain, laceration of R hand, Formal detox help Related Data Home Medications ?Medication ?Instructions ?Recorded ?Confirmed apixaban 5 mg tablet (Eliquis) 5 mg PO BID 08/29/22 01/24/25 albuterol sulfate 90 mcg/actuation 2 puff inhalation Q4H PRN 01/17/25 01/17/25 aerosol inhaler Shortness Of Breath buspirone 7.5 mg tablet 7.5 mg PO TID 01/17/25 01/17/25 hydroxyzine pamoate 50 mg capsule 50 mg PO BID 01/17/25 01/24/25 melatonin 5 mg tablet 5 - 10 mg PO BEDTIME PRN Sleep 01/17/25 01/17/25 mirtazapine 15 mg tablet 15 mg PO BEDTIME 01/17/25 01/17/25 prazosin 1 mg capsule 1 mg PO BEDTIME 01/17/25 01/17/25 sertraline 100 mg tablet 200 mg PO DAILY 01/17/25 01/17/25 Previous Rx's ?Medication ?Instructions ?Recorded fluticasone fur. 100 mcg-umeclid 1 inh inhalation RDAILY 30 days #1 01/22/25 62.5 mcg-vilant 25 mcg ea inhalat.powder (Trelegy Ellipta) folic acid 1 mg tablet 1 mg PO DAILY 30 days #30 tabs 01/22/25 naltrexone 50 mg tablet 50 mg PO DAILY 30 days #30 tabs 01/22/25 nicotine 7 mg/24 hr daily 7 mg transdermal DAILY 30 days #1 01/22/25 transdermal patch ea thiamine mononitrate (vit B1) 100 100 mg PO DAILY 30 days #30 tabs 01/22/25 mg tablet acetaminophen 500 mg tablet 1,000 mg (2 x 500 mg) PO Q6H PRN 01/25/25 pain #30 tabs lidocaine 5 % topical patch 1 patch topical DAILY #15 ea 01/25/25 Allergies Allergy/AdvReac Type Severity Reaction Status Date / Time Peanut Butter Allergy Facial Verified 01/24/25 13:19 Swelling raspberry Allergy Facial Verified 01/24/25 13:19 Swelling Review of Systems Review of Systems: Yes all other systems are reviewed and are negative PMFSH Past Medical History Attestation statement: The following information was validated with the patient. Source: old records reviewed and nursing notes reviewed Medical History Alcohol withdrawal Alcohol dependence Presence of IVC filter Acute and chronic respiratory failure with hypoxia COPD (chronic obstructive pulmonary disease) Alcohol use disorder, severe, dependence Tobacco abuse Subdural hematoma DVT (deep venous thrombosis) COPD (chronic obstructive pulmonary disease) Asthma Neuropathy Alcohol abuse Social History Social History Household Members: None Housing: House Do you presently have visiting nurse or other home services: No Alcohol intake: current Alcohol intake frequency: 3 or more drinks per day Alcohol type: hard liquor Comment: pt refuses high fall risk interventions Patient Tobacco Use Status: Current everyday Tobacco user Tobacco use type: Cigarette Cigarette Packs Per Day: 1 Cigarettes Per Day: 20.0 e-Cigarette/Vaping Use: Never Used Second Hand Smoke Exposure: No Substance Use Type: Marijuana Advance Directives: Yes Advance Directives on File: Yes Advance Directives Date on File: 03/05/22 service: No Current occupational status: disabled Physical Exam ED Vital Signs: Vital Signs - 24 hr 01/24/25 16:09 01/24/25 19:00 01/25/25 06:13 Temperature 98.3 F 97.6 F Pulse Rate 82 90 97 Respiratory Rate 20 18 17 Blood Pressure 103/55 L 125/69 149/76 H Pulse Oximetry 91 L 95 97 Oxygen Delivery Method Room Air Room Air Room Air BMI result Body Mass Index 21.1 GENERAL APPEARANCE: ?AxOx4, disheveled appearing, thin male in no acute distress. HEENT: ?NC, AT. MMM. EOMI, clear conjunctiva, oropharynx clear. NECK: ?Supple without lymphadenopathy.? No stiffness or restricted ROM. HEART:? Normal rate and regular rhythm, normal S1/S2, no m/r/g LUNGS:? CTAB, moving air well. No crackles or wheezes are heard. ABDOMEN: ?Soft, nontender, nondistended with good bowel sounds heard. TTP of B/L ribs without ecchymosis, no flail chest BACK: No CVAT, no obvious deformity. EXTREMITIES: ?Without cyanosis, clubbing or edema. L arm with ecchymosis over the distal humerus, multiple areas of ecchymosis of the left wrist and hand, with ecchymosis over the scaphoid region, right hand with scabbed over laceration, without warmth, edema. Full ROM intact, See photos attached NEUROLOGICAL: ?Grossly nonfocal. Alert and oriented, moving all 4 extremities. Skin: ?Warm and dry without any rash. Course Reevaluation(s) Reevaluation #1: 1:41 PM 01/25/2025 (Dr. Rohit Marie): Time: 13:41 Date: 01/25/25 Provider: Rohit Marie DO Physician observation ended. Short-term rehab, has VNA services we will be discharged Medications Administered Generic Name Dose Route Start Last Admin Trade Name Freq PRN Reason Stop Dose Admin Apixaban 5 mg 01/24/25 23:30 01/25/25 07:56 Apixaban 5 Mg Tablet PO 5 mg BID NOHEMI Administration Hydroxyzine HCl 50 mg 01/24/25 23:30 01/25/25 07:55 Hydroxyzine Hcl 50 Mg Tablet PO 50 mg BID NOHEMI Administration Discontinued Medications Generic Name Dose Route Start Last Admin Trade Name Freq PRN Reason Stop Dose Admin Diazepam 5 mg 01/24/25 14:58 01/24/25 15:20 Diazepam 10 Mg/2 Ml Cartridge IVPUSH 01/24/25 14:59 5 mg STAT STA Administration Acetaminophen 1,000 mg in 100 mls @ 400 mls/hr 01/24/25 14:58 01/24/25 15:34 Ofirmev IV 01/24/25 15:12 Infused ONCE ONE Infusion Iohexol 100 ml 01/24/25 15:53 01/24/25 15:53 Iohexol 350 Mg/Ml 100 Ml Infus..Btl IV 01/24/25 15:54 65 ml ONCE ONE Administration Medical Decision Making Medical Decision Making MDM Narrative: 64-year-old male with medical history of alcohol use disorder, gastric ulcer, Martinez esophagus, upper gastrointestinal bleed, alcoholic hepatitis, COPD, DVT on Eliquis, presents to the ED by EMS due to ?malnutrition? and seeking help for alcohol detox. Patient states he is experiencing ?malnutrition? as he has not been able to eat over the last 2 weeks due to loss of appetite that he equates to his drinking habits. Patient states he is currently drinking 2 pt or ?more? of southern comfort per day. Patient states he had a fall approximately 1 week ago where he fell down some stairs with pain in his L shoulder, and L wrist/hand with a laceration of the R hand. VS on initial observation-BP 108/55, pulse rate of 88, respiratory rate of 18, afebrile with oral temp of 97.6?, O2 saturation 93% on room air. On physical exam patient is disheveled, thin with alcoholic odor to his breath, lungs clear to auscultation bilaterally without rhonchi or wheeze, cardiac exam reveals normal rate and rhythm without murmurs/rubs/gallops, abdominal exam reveals soft abdomen, nondistended, no rigidity, nontender, extremities without edema. Left upper extremity with multiple areas of ecchymosis, right hand with old, scabbed, well-healing laceration. (see photos in the physical exam portion of this note) Plan: Labs, CT head/brain, CT C-spine, CT chest, XR L shoulder, XR L humerus, XR L wrist, XR B/L hands, Recovery team - Patient medicated with 1 g IV Tylenol for pain, and 5 mg IV Valium due to CIWA of 3 and patient with agitation. Labs reveal leukopenia of 3.9 however this has increased from his last day on 01/21/2025, normocytic anemia with a hemoglobin of 11.6, hematocrit of 35.1, no electrolyte abnormalities, elevated transaminitis with AST of 113, ALT of 93, and elevated alkaline phosphatase of 175. UA reveals concentrated urine, negative for blood or infection. Toxicology positive for barbiturates, benzodiazepines Ethanol 229 CT head/brain without acute intracranial abnormality CT C-spine partially limited due to motion artifact, but no obvious acute fracture subluxation, patient without cervical spine tenderness CT chest reveals subacute lateral right 5th rib fracture, and lateral 6, 7th, 8th rib fracture, pulmonary nodules and recommends follow up since the patient is high risk. - Patient will have incentive spirometer and albuterol inhaler for treatment. - Patient had a CTA chest done in 09/2024 that revealed a small cavitary lesion in the inferior R upper lobe which recommended f/u PET scan. On chart review, the provider discussed this with the patient. When speaking with him he states he does not remember this conversation, and has not followed up with his PCP to obtain imaging. I explained these findings extensively with the patient. I will place this information in his disharge paperwork to ensure he follows up with PCP outpatient. Course 8:00pm- Patient is requesting formal detox for ETOH. I spoke with behavioral health specialist Barbara Sim who found a facility for patient to detox to. Patient was doing the intake form and told the facility he was unable to shower. I went in to speak with the patient and discuss this with him. Patient states he said that as he is scared and does not feel ?ready? for detox and feels weak. I asked the patient why he has been feeling weak and the patient answered ?because of my drinking?. I explained to the patient that this is all we have to offer, we can not address his weakness due to alcoholism without him completing detox. I called to speak with the facility, and discussed this with them. They are awaiting approval to complete intake form with him. 9:23- Facility declined acceptance as they feel like he needs a higher level of care Patient awaiting PT eval in the am. Differential Diagnosis Differential Diagnoses: The differential diagnosis associated with the presentation includes ICH pneumonia Rib fracture Alcohol intoxication Alcohol withdrawal Humerus fracture Admission/Observation Consideration of admission/observation: Escalation of care including admission/observation considered Lab Data MDM Lab Attestation statement: I reviewed the patient's lab results. 01/24/25 15:01 01/24/25 15:01 Labs: Lab Results 01/24/25 01/24/25 Range/Units 15:01 19:17 WBC 3.9 L (4.8-10.8) X10*3/uL RBC 3.73 L (4.60-5.80) X10*6/uL Hgb 11.6 L (14.0-18.0) g/dl Hct 35.1 L (42.0-52.0) % MCV 94.1 (80.0-98.0) fL MCH 31.1 (27.0-33.0) pg MCHC 33.0 (31.0-36.0) g/dl RDW 17.6 H (11.0-16.0) % Plt Count 226 D (160-400) X10*3/uL MPV 8.9 L (9.4-12.4) fL Immature Gran % (Auto) 1.3 H (0.0-0.4) % Neut % (Auto) 41.8 L (45-73) % Lymph % (Auto) 31.5 (20-40) % Bath % (Auto) 21.2 H (2-11) % Eos % (Auto) 2.6 (0-4) % Baso % (Auto) 1.6 (0-2) % Lymph # (Auto) 1.2 (1.2-4.9) X10*3/uL Bath # (Auto) 0.8 (0.1-1.2) X10*3/uL Eos # (Auto) 0.1 (0.0-0.4) X10*3/uL Baso # (Auto) 0.1 (0.0-0.2) X10*3/uL Abs Immat Gran (auto) 0.05 H (0.00-0.03) X10*3/uL Absolute Neuts (auto) 1.6 L (2.0-8.3) x10*3/uL Absolute Nucleated RBC 0.000 (0.0-0.012) X10*3/uL Nucleated RBC % (auto) 0.0 (0.0-0.2) /100WBC Smear Tech's Comments VERIFIED Sodium 138 (135-145) mmol/L Potassium 4.7 (3.3-5.1) mmol/L Chloride 105 (96-108) mmol/L Carbon Dioxide 24 (22-29) mmol/L Anion Gap 14 (12-20) BUN 10 (9-16) mg/dL Creatinine 0.74 (0.5-1.4) mg/dL Estim Creat Clear Calc 92.2 Estimated GFR > 60 Random Glucose 84 (60-115) mg/dL Calcium 8.7 D (8.4-10.2) mg/dL Magnesium 2.0 (1.6-2.6) mg/dL Total Bilirubin 0.3 (0.0-1.0) mg/dL AST 113 H (5-37) U/L ALT 93 H (0-40) U/L Alkaline Phosphatase 175 H (39-117) U/L Total Protein 7.0 (6.5-8.0) g/dL Albumin 3.8 (3.5-5.0) g/dL Urine Color Yellow Urine Appearance Clear Urine pH 6.0 (5.0-9.0) Ur Specific [place] >= 1.030 H (1.005-1.025) Urine Protein Trace (Neg-Trace) mg/dL Urine Glucose (UA) Negative (Negative) mg/dL Urine Ketones Negative (Negative) mg/dL Urine Blood Negative (Negative) Urine Nitrite Negative (Negative) Ur Leukocyte Esterase Negative (Negative) Urine RBC 0-2 (0-2) /HPF Urine WBC 0-5 (0-5) /HPF Ur Squamous Epith Cells 0-2 (0-2) /HPF Urine Bacteria None Seen (None Seen) Hyaline Casts 0-2 (0-2) /LPF Urine Opiates Screen Not Detected (Not Detect) Ur Buprenorphine Scrn Not Detected (Not Detect) ng/mL Ur Oxycodone Screen Not Detected (Not Detect) ng/mL Urine Methadone Screen Not Detected (Not Detect) ng/mL Urine Fentanyl Screen Not Detected (Not Detect) Ur Barbiturates Screen POSITIVE H (Not Detect) Ur Phencyclidine Scrn Not Detected (Not Detect) Ur Amphetamines Screen Not Detected (Not Detect) U Benzodiazepines Scrn POSITIVE H (Not Detect) Urine Cocaine Screen Not Detected (Not Detect) U Marijuana (THC) Screen Not Detected (Not Detect) Ethyl Alcohol 229 mg/dL Independent Interpretation I performed an independent interpretation of an: CT Scan Interpretation: I personally interpreted the CT head/brain which was negative for acute intracranial abnormalities, I agree with the radiologist's interpretations I personally interpreted the CT C-spine which was negative for fracture, dislocation, I agree with the radiologist's interpretation I personally interpreted the CT chest which reveals rib fracture on the right side, and 3 rib fractures on the left side, pulmonary nodules, I agree with the radiologist interpretation I personally interpreted the XR L shoulder which was negative for fracture, dislocation, I agree with the radiologist's interpretation I personally interpreted the XR L Wrist which was negative for fracture, dislocation, I agree with the radiologists interpretation I personally interpreted the XR B/L hand which was negative for fracture, dislocation, osteomyelitis, I agree with the radiologist's interpretation Radiology Impression Discussion of test interpretation with radiology: I have reviewed the radiologist's reading. Radiologist Impression: CT head/brain FINDINGS: There is no evidence of intracranial hemorrhage or extra-axial fluid collection. There is no mass effect, or edema. No CT evidence of acute territorial infarct. Ventricles, sulci, and cisterns are normal in size and configuration for patient age. No hydrocephalus. No midline shift. Negative hyperdense MCA sign. Negative insular ribbon sign. 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 There appears to have been a prior overlying craniotomy. Mild periventricular white matter hypoattenuation is in keeping with small vessel ischemic changes. Partial empty sella present. Globes and orbital contents image normally. There are bilateral lens replacements. No extracranial soft tissue abnormalities. The paranasal sinuses, mastoid air cells, and tympanic cavities are normally aerated. No suspicious bony abnormalities. There are no acute fractures evident. Right frontal craniotomy again noted with involvement of the right orbital roof. Healed fractures of the right-sided zygomatic process. CT/CT head/brain wo IV con IMPRESSION: 1. No acute intracranial abnormality. 2. Stable chronic findings as discussed. Electronically signed by: Jp Joseph MD 01/24/2025 04:25 PM [facility] Dictated By: Jp Joseph MD Signed By: <Electronically signed by Jp Joseph MD in OV> 01/24/[address] C-spine FINDINGS: Motion in the upper/mid cervical spine limits local evaluation. Alignment and vertebrae: Cervical lordosis is maintained. No significant subluxation. No obvious displaced compression fracture. No displaced acute appearing fracture of the posterior elements. Chronic deformities with of the spinal process of C7, T1 and T2 and the adjacent displaced fracture fragments or heterotopic ossification are similar to 2023. Intervertebral discs: Disc space narrowing and marginal osteophytes are more prominent at C5-C6. Craniovertebral junction: intact. Soft tissues: Posterior soft tissues and prevertebral soft tissues are unremarkable. Other findings: Calcifications at the level of bilateral carotid calcifications. Centrilobular emphysema in the upper lungs. No apical pneumothorax. No severe neuroforaminal stenosis or spinal canal stenosis. CT/CT cervical spine wo IV con IMPRESSION: Study partially limited by motion artifact. No obvious acute fracture or subluxation. If clinical concern persists, recommend repeating examination when patient is able to cooperate. Electronically signed by: Caleb Arias MD 01/24/2025 04:40 PM EST Dictated By: Caleb Arias MD Signed By: <Electronically signed by Caleb Arias MD in OV> 01/24/[address] chest FINDINGS: LUNGS: Linear scarring is seen in the posterior base of the right lower lobe. There are mild changes consistent with centrilobular and paraseptal emphysema. There are multiple small subpleural pulmonary nodules. Nodules measured on axial CT #25 Image 20: 3 mm calcified nodule is present in the anteromedial left apex. Image 40: 2 x 3 mm solid pulmonary nodule is present in the lateral aspect of the right upper lobe. Image 56: Also, there is a 2 x 4 mm subpleural nodule along the anterior lateral right upper lobe on the same series. Image 64: 3 mm nodule in lateral right upper lobe. There is minimal groundglass density in the dependent portions of lungs consistent with dependent atelectasis. MEDIASTINUM: Heart size is normal. There is no adenopathy. Atherosclerotic calcifications are visible in the aorta. PLEURA: There is no pleural effusion. As discussed in the lungs section, there are multiple nodular densities involving pleura. AXILLA: No lymphadenopathy. UPPER ABDOMEN: Diffuse fatty changes are present in the liver. There are calcified stones in the gallbladder without wall thickening or adjacent inflammatory change. The right kidney is very small measuring approximately 3.5 cm superior-inferior. It demonstrates functioning renal cortex that is very thin. OSSEOUS STRUCTURES: Lateral right fifth and lateral left sixth seventh and eighth fracture with sclerotic margins are consistent with subacute or chronic injury. Numerous chronic compression fractures and Schmorl's nodes are evident throughout the thoracic spine that appear unchanged since 2022. Compression fractures are most significant at T12 where there is moderate loss of height from the superior endplate. CT/CT chest w IV con IMPRESSION: Report from October 26, 2024 describes a cavitary lesion in the inferior right upper lobe and recommended follow-up PET imaging. Images from that study are not available for comparison. Multiple small pulmonary nodules, at least one which is calcified. Also multiple small subpleural nodules. No further follow-up is indicated per Fleischner Society recommendations, unless the patient falls into a high risk category, in which case a 12 month follow-up CT chest without contrast is optional. High risk patients includes those with a history of smoking, first-degree relative with lung cancer, or exposure to uranium, radon, or asbestos. Bilateral rib fractures, subacute favored over chronic. Lateral right fifth and lateral left sixth seventh and eighth rib fractures. Mild changes of centrilobular and paraseptal emphysema. Chronic changes in the thoracic spine with multiple compression fractures and Schmorl's nodes. Hypoplastic right kidney. Fleischner guidelines were followed. Electronically signed by: Ryan Simpson MD 01/24/2025 05:10 PM [facility] Dictated By: Ryan Simpson MD Signed By: <Electronically signed by Ryan Simpson MD in OV> 01/24/25 1710 XR L shoulder FINDINGS: Three views of the left shoulder and AP and lateral views of the left humerus are submitted. Osseous mineralization is normal. There is no fracture or dislocation. The glenohumeral joint is maintained. There is moderate degenerative change of the AC joint with joint space narrowing and osteophyte formation. The visualized portion of the left elbow joint is maintained. The soft tissues are unremarkable. XR/XR shoulder LT min 2V IMPRESSION: No evidence of fracture of the right shoulder or humerus. Electronically signed by: Shiraz Nova MD 01/24/2025 02:29 PM EST RP Dictated By: Shiraz Nova MD Signed By: <Electronically signed by Shiraz Nova MD in OV> 01/24/25 1429 XR L wrist FINDINGS: Six views of the bilateral hands for additional views of the left wrist including a scaphoid view are submitted. Osseous mineralization is normal. There is an old healed fracture of the 5th metacarpal neck. There is no acute fracture or dislocation. The joint spaces are preserved. The soft tissues are unremarkable. XR/XR wrist LT min 3V IMPRESSION: No evidence of acute fracture of the left wrist and bilateral hands. Electronically signed by: Shiraz Nova MD 01/24/2025 02:32 PM EST RP Dictated By: Shiraz Nova MD Signed By: <Electronically signed by Shiraz Nova MD in OV> 01/24/25 1432 XR B/L hand FINDINGS: Six views of the bilateral hands for additional views of the left wrist including a scaphoid view are submitted. Osseous mineralization is normal. There is an old healed fracture of the 5th metacarpal neck. There is no acute fracture or dislocation. The joint spaces are preserved. The soft tissues are unremarkable. XR/XR Hand Bilat min 3v IMPRESSION: No evidence of acute fracture of the left wrist and bilateral hands. Electronically signed by: Shiraz Nova MD 01/24/2025 02:32 PM EST RP Dictated By: Shiraz Nova MD Signed By: <Electronically signed by Shiraz Nova MD in OV> 01/24/25 1432 External Record Review External record reviewed: Inpatient record, Office record, Outpatient record and Prior outpatient labs Chronic Conditions Patient?s care impacted by: Other (Alcohol use disorder, gastric ulcer, Martinez's esophagus, upper gastrointestinal bleed, alcoholic hepatitis, COPD, DVT on Eliquis) Social Determinants Patient?s care significantly limited by Social Determinants of Health including: Other Social Determinant of Health Discharge Plan Discharge Clinical Impression: Multiple rib fractures Alcohol intoxication Qualifiers: Complication of substance-induced condition: with unspecified complication Qualified Code(s): F10.929 - Alcohol use, unspecified with intoxication, unspecified Additional Instructions: You were evaluated in the emergency department. Your CT scan of your chest reveals fracture of the right 5th rib, and fractures of the left 5th, 6th, and 7th ribs, there were also small pulmonary nodules and a small pulmonary lesion that may be cancerous. You need to follow up with your primary care doctor as you need a PET scan for further evaluation. Please call your primary care doctor Wednesday morning to follow up. You can use lidocaine patches and acetaminophen which has been prescribed as needed for pain, follow up with the PCP for additional pain control It is important to use an incentive spirometer while your ribs are healing to ensure you are breathing deep to keep your lungs active, healthy and to prevent scarring from shallow breathing. Alcohol use disorder You were seen in the Emergency Department today for treatment of alcohol use disorder.? If you would like to cut down or stop your alcohol use please consider calling our outpatient Addiction Treatment office:? [facility] ([id number]) [address] [place] [address] You have also been given a list of treatment providers in the area that can assist as well.? If you experience seizures, vomiting blood, black stools, falls, severe headache, chest pain, fevers, trouble breathing, hallucinations or any other concerns you need to call 911 or seek immediate care. Please stay hydrated. Prescriptions: New lidocaine 5 % adhesive patch,medicated 1 patch topical DAILY Qty: 15 0RF Rx Instructions: leave on most painful area for up to 12 hrs acetaminophen 500 mg tablet 1,000 mg PO Q6H PRN (Reason: pain) Qty: 30 0RF No Action Eliquis 5 mg tablet 5 mg PO BID prazosin 1 mg capsule 1 mg PO BEDTIME sertraline 100 mg tablet 200 mg PO DAILY hydroxyzine pamoate 50 mg capsule 50 mg PO BID buspirone 7.5 mg tablet 7.5 mg PO TID mirtazapine 15 mg tablet 15 mg PO BEDTIME albuterol sulfate 90 mcg/actuation HFA aerosol inhaler 2 puff inhalation Q4H PRN (Reason: Shortness Of Breath) melatonin 5 mg tablet 5 - 10 mg PO BEDTIME PRN (Reason: Sleep) folic acid 1 mg Tablet 1 mg PO DAILY 30 Days Qty: 30 0RF nicotine 7 mg/24 hr Patch 24 Hour 7 mg transdermal DAILY 30 Days Qty: 1 0RF thiamine mononitrate (vit B1) 100 mg Tablet 100 mg PO DAILY 30 Days Qty: 30 0RF Trelegy Ellipta 100-62.5-25 mcg Blister With Device 1 inh inhalation RDAILY 30 Days Qty: 1 0RF naltrexone 50 mg tablet 50 mg PO DAILY 30 Days Qty: 30 0RF Referrals: [facility] [Outside] Referral Note: Agency will call to arrange visit. Print Language: Syrian
--- NOTE | 2025-01-24 14:19 | PC.NURSE ---
Patient is away for imaging. Will collect labs & obtain IV access upon return.
--- NOTE | 2025-01-24 14:46 | PC.NURSE ---
20g IV access established to right AC. Attempted lab draw, but not giving blood back. IV flushes with ease. Patient agitated with this RN stating I don't want you to fucking fish around . This RN was not 'fishing around'. HIMA Perez to bedside to calm the patient down. Patient apologized, aware that lab draw will be attempted in separate 'stick', but that the IV is patent/functioning otherwise.
[2025-01-24 15:10] LABS: Hematocrit 35.1 % (42.0-52.0); Hemoglobin 11.6 g/dl (14.0-18.0); Imm Gran Abs Auto 0.05 X10*3/uL (0.00-0.03); Imm Gran Pct Auto 1.3 % (0.0-0.4); Lymphocytes Absolute Auto 1.2 X10*3/uL (1.2-4.9); MANUAL DIFF FLAG SCAN; Mean Corpuscular HGB Conc 33.0 g/dl (31.0-36.0); Mean Corpuscular Hemoglobin 31.1 pg (27.0-33.0); Mean Corpuscular Volume 94.1 fL (80.0-98.0); NRBC Abs Auto 0.000 X10*3/uL (0.0-0.012); NRBC Pct Auto 0.0 /100WBC (0.0-0.2); Platelet Count 226 X10*3/uL (160-400); Red Blood Count 3.73 X10*6/uL (4.60-5.80); SCAN SMEAR FLAG 1; White Blood Count 3.9 X10*3/uL (4.8-10.8)
[2025-01-24] MEDS: diazePAM 10 MG/2 ML CARTRIDGE 5 MG IVPUSH (15:20)
[2025-01-24 15:27] LABS: Alanine Aminotransferase 93 U/L (0-40); Albumin Level 3.8 g/dL (3.5-5.0); Alkaline Phosphatase 175 U/L (39-117); Anion Gap 14 (12-20); Aspartate Amino Transferase 113 U/L (5-37); Blood Urea Nitrogen 10 mg/dL (9-16); Calcium 8.7 mg/dL (8.4-10.2); Carbon Dioxide 24 mmol/L (22-29); Chloride 105 mmol/L (96-108); Creatinine Clr Calc Pharmacy 92.2; Estimated Glomerular Filt Rate > 60; Magnesium 2.0 mg/dL (1.6-2.6); Potassium 4.7 mmol/L (3.3-5.1); Sodium 138 mmol/L (135-145); Total Protein 7.0 g/dL (6.5-8.0)
--- NOTE | 2025-01-24 15:52 | PC.NURSE ---
Away for CT scan.
[2025-01-24] MEDS: iohexoL 350 MG/ML 100 ML INFUS..BTL IV (15:53)
[2025-01-24 16:09] VITALS: BP 103/55; PULSE 82; RESP 20; O2SAT 91
--- OUTSIDE RECORDS SUMMARY | 2025-01-24 16:37 | XMS_ITS | Data Portability ---
Author Organization [facility], Telehealth Patient Home Address [address] [facility] [place]ITA CAMPOS [address] Assessment Encounter Date Assessment Date Assessment LastModified by Organization Details LastModified Time 01/19/2024 01/19/2024 [address] [place] [address] ([facility]) MDM HIGH MUST MEET 2 OUT OF [...] COVERED Not available 01/19/2024 11:54:32 03/22/2024 03/22/2024 [id number] [place] [address] ([facility]) MDM MODERATE MUST MEET 2 OUT OF [...] COVERED Not available 03/22/2024 11:36:53 05/19/2024 05/19/2024 [id number] [place] [address] ([facility]) MDM HIGH MUST MEET 2 OUT OF [...] COVERED Not available 05/19/2024 15:01:00 06/07/2024 06/07/2024 [id number] [place] [address] ([facility]) MDM MODERATE MUST MEET 2 OUT OF [...] COVERED Not available 06/07/2024 12:03:37 10/10/2024 10/10/2024 [id number] [place] [address] ([facility]) MDM MODERATE MUST MEET 2 OUT OF [...] Details Last Modified Time Details Appointments None recorded. Lab vitamin D, 25-hydroxy, total, serum 2024 025 [facility], [address] [place] [address], [address], 12:27:32 vitamin B12 + folate, serum or blood 2024 025 [facility], [address] [place] [address], [address], 12:30:46 CMP, serum or plasma 2024 025 [facility], [address] [place] [address], [address], 12:30:45 Referral orthopedic surgeon referral 2024 025 vamshi Simpson MD, [address] [facility] [address], [place], [address], 09:07:33 gastroenter ologist referral - routine colonoscopy 2024 025 aravind Parra MD, [address] [facility] [address], [place], [address], 09:35:00 Procedures None recorded. Surgeries None recorded. Imaging XR, hand, 3 or more view 2024 025 [facility]), [address] [place], [address], 08:24:58 MRI, shoulder, w/o contrast 2024 025 [facility] ([facility]), [address] [place], [address], 5 08:26:15 XR, hand, 3 or more view 2023 024 [facility] ([facility]), [address] [place], [address], 4 08:29:38 Medication Orders triamcinolo ne acetonide 0.1 % topical cream 2024 025 [id number], [address] [place], [address], 5 16:46:57 azithromyci n 250 mg tablet 2024 025 [id number], [address] [place], [address], 5 12:12:19 azithromyci n 250 mg tablet 2024 025 [facility], [address] [place], [address], 5 14:59:57 triamcinolo ne acetonide 0.1 % topical cream 2024 025 [facility], [address] [place], [address], 5 15:02:20 triamcinolo ne acetonide 0.1 % topical cream 2023 024 [facility], [address] [place], [address], 4 11:51:47 Multivitami n 50 Plus tablet 2023 024 [id number], [address] [place], [address], 4 11:50:00 Patient TargetsNo targets recorded. Patient Instructions Encounter Date Encounter Id Patient Instructions Last Modified By Organization Details Last Modified Time 01/19/2024 [id number] chronic obstructive pulmonary disease (COPD): care instructions Not available 01/19/2024 11:49:57 learning about copd and how to prevent lung infections Not available 01/19/2024 11:49:57 pulse oximetry* Not available 01/19/2024 11:49:57 neuropathic pain : care instructions Not available 01/19/2024 11:49:57 03/22/2024 [id number] pulse oximetry* KAROLYN Not available 03/22/2024 11:49:54 05/19/2024 [id number] pulse oximetry* Not available 05/19/2024 14:59:35 dislocated shoulder: care instructions Not available 05/19/2024 14:59:35 shoulder dislocation: rehab exercises Not available 05/19/2024 14:59:35 neuropathic pain : care instructions Not available 05/19/2024 15:02:31 06/07/2024 [id number] pulse oximetry* KAROLYN Not available 06/07/2024 11:42:18 10/10/2024 [id number] pulse oximetry* Not available 10/10/2024 16:46:54 Reason for Referral Tool Crib Lead Referral for Screening for malignant neoplasm of colon routine colonoscopy Referring Physician: Cristhian Delgado, Internal Medicine, Encounter Date: 05/19/2024 Orthopedic Surgeon Referral for Dislocation of shoulder joint Referring Physician: Cristhian Delgado, Internal Medicine, Encounter Date: 06/07/2024 Results Created Date Observation Date Name Description Value Unit Range Abnormal Flag Note LastModifiedBy Organization Detail LastModifiedTime 01/19/20 24 01/19/2024 pulse oxime try* Result 92 Not Available [facility] [address] [facility] [address], [place], [address], 01/14/2024 11:32:45 03/22/19 25 03/22/2024 pulse oxime try* Result 95 Not Available [facility] [address] [facility] [address], [place], [address], 03/14/2024 11:54:52 05/20/19 25 05/19/2024 pulse oxime try* Result 91% Not Available [facility] [address] [facility] [address], [place], [address], 05/17/2024 16:20:55 06/08/19 25 06/07/2024 pulse oxime try* Result 93 Not Available [facility] [address] [facility] [address], [place], [address], 06/04/2024 08:15:20 10/11/1910/10/2024 pulse oxime try* Result 97 Not Available [facility] [address] [facility] [address], [place], [address], 10/10/2024 07:45:39 06/06/19 25 06/01/2024 MRI, shoul georgina, w/o contr ast No observ ation record ed. [facility] [address] [place], [address], 06/05/2024 15:20:13 10/27/1910/26/2024 XR, shoul georgina No observ ation record ed. [address] (Medical Records) [address] [place], [address], 10/27/2024 09:20:23 10/27/1910/26/2024 CT, angio gram, chest + abdom en + pelvi s, w/ contr ast No observ ation record ed. [address] (Medical Records) [address] [place], [address], 10/27/2024 09:20:53 10/28/19 25 10/26/2024 CT, angio gram, chest , w/ contr ast No observ ation record ed. [email or web address] [facility] (Medical Records) [address] [place], [address], 10/27/2024 10:02:41 12/19/19 25 12/18/2024 imagi ng/di agnos tic resul t No observ ation record ed. [email or web address] [facility] (Medical Records) [address] [place], [address], 12/19/2024 08:50:10 01/05/20 25 01/04/2025 XR, chest , 2 view No observ ation record ed. [address] (Medical Records) [address] [facility] [place], [address], 01/04/2025 16:40:25 01/25/20 25 01/24/2025 XR, humer us No observ ation record ed. [facility] (Medical Records) [address] [facility] [place] [address], 01/24/2025 16:09:25 01/25/20 25 01/24/2025 XR, shoul georgina No observ ation record ed. [facility] (Medical Records) [address] [facility] [place], [address], 01/24/2025 16:09:40 01/25/20 25 01/24/2025 XR, hand, 3 or more view No observ ation record ed. [address] (Medical Records) [address] [place], [address], 01/24/2025 15:51:21 01/25/20 25 01/24/2025 XR, hand, 3 or more view No observ ation record ed. [address] (Medical Records) [address] [place], [address], 01/24/2025 15:51:32 01/25/20 25 01/24/2025 imagi ng/di agnos tic resul t No observ ation record ed. [facility] (Medical Records) [address] [facility] [place], [address], 01/24/2025 16:29:35 Result Notes None recorded. Problems Name Problem SNOMED Code Status Onset Date Resolution Date Notes Provider Name and Address Organization Details Recorded Time Chronic obstructi ve pulmonary disease 58046108 Active 2018 Sheilatasia Rameyshaila [facility] 9 15:16:29 Neuropath y 561011912 Active 2018 Sheilatasia De Leon [facility] 9 15:16:41 Gout 41501209 Active 2018 Sheilatasia De Leon [facility] 9 15:16:48 History of gallstone s 288990187 Active 2018 [facility] 9 15:17:04 History of deep vein thrombosi s 304654478 Active 2018 s/p IVC filter May Dalton, KAMLESH [address] [place] [address], [address], [facility] 9 14:35:19 Harmful pattern of use of alcohol 97795153 Active 2018 Kimberly Coelho NP, S [address] [place] [address], [address], [facility] 9 16:45:28 Tobacco dependenc e syndrome 22175948 Active 2018 Kimberly Coelho NP, S [address] [place] [address], [address], [facility] 9 16:13:47 Tinea corporis 64992092 Active 2023 Cristhian Delgado DO [address] [place] [address], [address], [facility] 4 12:10:21 Insomnia 473827333 Active 2023 Cristhian Delgado DO [address] [place] [address], [address], [facility] 4 12:17:44 Secondary periphera l neuropath y 446272 Active 2023 Cristhian Delgado, DO [address] [place] [address], [address], [facility] 4 22:16:11 Acute exacerbat ion of chronic obstructi ve pulmonary disease 281601334 Active 2023 HIMA HUERTA [address] [place] [address], [address], [facility] 4 15:05:32 Generaliz ed rash 461401747 Active 2023 HIMA HUERTA [address] [place] [address], [address], [facility] 4 10:59:16 Depressiv e disorder 79132752 Active 2023 HIMA HUERTA [address] [place] [address], [address], [facility] 4 10:26:22 Eczema 64608325 Active 2023 Cristhian Delgado, DO [address] [place] [address], [address], [facility] 4 11:50:30 Pain of bilateral hands 39923823310 969178 Active 2023 Cristhian Delgado DO [address] [place] [address], [address], [facility] 4 11:52:35 Pruritic rash 10299967 Active 2023 Cristhian Delgado, DO [address] [place] [address], [address], [facility] 4 21:26:20 COVID-19 278882481 Active 2024 Cristhian Delgado DO [address] [place] [address], [address], [facility] 5 11:37:01 Nummular eczema 50257431 Active 2024 Cristhian Delgado DO [address] [place] [address], [address], [facility] 5 14:51:23 Dislocati on of shoulder joint 022085699 Active 2024 Cristhian Delgado, [address], [address], [facility] 5 14:52:22 Dislocati on of shoulder joint 876471044 Active 2024 Cristhian Delgado, [address], [address], [facility] 5 14:52:26 Bilateral pain of joint of hands 39990288583 459582 Active 2024 Cristhian Delgado, [address], [address], [facility] 5 14:53:41 Eczema of lower leg 163854680 Active 2024 Cristhian Delgado, [address], [address], [facility] 5 16:55:51 Problem Notes None recorded. Medical Equipment None Reported. Allergies Allergen ID Allergen Name Allergen Category Reaction Reaction Severity Criticality Documentation Date Start Date Code Code System Note Provider Name and Address Organization Details Recorded Time 2905 peanut allergeni c extract food,medi cation Not available Not available Not available 05/11/2018 37900 8 RxNorm Sheila rainey [facility] 9 15:14:37 8332 Lyrica medicatio n rash Not available Not available 11/15/20232023 14410 1 RxNorm Landry rainey [facility] 4 10:28:00 8490 raspberry extract food,medi cation Not available Not available Not available 12/29/2023 25804 69 RxNorm QUINTIN MENDEZ, HIMA [address] [place] [address], [address], [facility] 4 10:47:33 9901 pregabali n medicatio n Not available Not available Not available 01/19/20252024 73510 2 RxNorm Not Available karolyn - External Data Service - prod 5 03:31:45 Medications Name Sig Start Date Stop Date [...] completed Not Available Not Available Not Available [facility]000 [facility]/gram topical powder 09/16 completed Not [...] (BMI) Body weight Heart rate Oxygen saturation Systolic And Diastolic Provider Name and Address Organization Details Last Updated DateTime 5 171.45 cm 23.6 kg/m2 92434.6 3 g 71 /min 95 % 106/68 mm[Hg] Cristhian Delgado, DO [address] [place], [address] , [facility] 5 11:20:11 Date Recorded Body height Body mass index (BMI) Body weight Heart rate Oxygen saturation Systolic And Diastolic Provider Name and Address Organization Details Last Updated DateTime 5 171.45 cm 24.4 kg/m2 73626.6 7 g 81 /min 91 % 130/80 mm[Hg] Daphne Ryan [facility] 5 14:36:10 Date Recorded Body height Heart rate Oxygen saturation Systolic And Diastolic Provider Name and Address Organization Details Last Updated DateTime 06/07/2024 171.45 cm 77 /min 93 % 129/60 mm[Hg] Trina Alcantar [facility] 06/07/2024 11:39:05 Date Recorded Body height Body mass index (BMI) Body weight Oxygen saturation Heart rate Systolic And Diastolic Provider Name and Address Organization Details Last Updated DateTime 5 171.45 cm 23.8 kg/m2 50919.2 2 g 97 % 78 /min 112/64 mm[Hg] SAM AWAD [facility] 5 16:15:29 Date Recorded Body height Body mass index (BMI) Body weight Heart rate Oxygen saturation Systolic And Diastolic Provider Name and Address Organization Details Last Updated DateTime 4 171.45 cm 23.6 kg/m2 57730.6 3 g 73 /min 92 % 110/80 mm[Hg] Trina Alcantar [facility] 4 11:13:34 Social History Question Answer Notes LastModified by Organizat ion Details LastModified Time Tobacco Smoking Status Current Every Day [facility] 15:18:01 What Was The [...] 0.5 mL 03/27/19 22 completed Not Available [facility] 08/15/2022 22:39:22 Tdap 08/04/19 22 completed Not Available [facility] 08/15/2022 22:39:22 pneumococcal polysaccharide PPV23 07/18/19 21 completed Not Available [facility] 08/15/2022 22:39:22 influenza, unspecified formulation 04/23/19 17 completed Not Available [facility] 08/15/2022 22:39:22 zoster recombinant 10/03/19 25 completed Cristhian Delgado, [address] [facility], [place], [address], [facility] 10/10/2024 16:45:43 Past Encounters Encounter ID Performer Location Encounter Start Date Encounter Closed Date Diagnosis/Indication Diagnosis SNOMED-CT Code Diagnosis ICD10 Code Diagnosis IMO Codes Diagnosis Note Cristhian Delgado DO [facility] [address] [facility] [address] 07/11/2018 15:02:42 07/11/2018 16:21:04 Alcohol dependence 31182136 F10.20 written scripts vivitrol 380 mg IM Q 4 weeks ( pharmacy not located in system ) Chronic ob structive pulmonary disease 68083499 J44.9 Harmful pa ttern of use of alcohol 16961955 F10.10 long discussion to avoid isolation Use senior center, library, social center to seek psychiatri st-pt prefers to do on own look for SMART meetings stay in contact w/positive people in life get outside and walk History of deep vein thrombosis 046304038 Z86.718 on Eliquis Neuropathy 122519093 G62 .9 gabapentin written & faxed 300 mg BID [id number] Cristhian Delgado DO [facility] [address] [facility],[place] [address] 09/28/2018 13:25:38 09/28/2018 14:06:07 Alcohol dependence 63320037 F10.20 currently in rehab Secondary peripheral neuropathy 937957 G63 2/2 etoh History of deep vein thrombosis 416055729 Z86.718 Tobacco de pendence syndrome 21271142 F17.[id number] 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 [address] [facility], [place] [address] 01/03/2019 10:26:01 01/03/2019 11:03:12 Secondary peripheral neuropathy 705948 G63 2/2 etoh Physical deconditioning 5764722990 9102 R68.89 Depressive disorder 3548 [address] F32.[id number] [facility] [address] [facility], [place] [address] 02/07/2019 13:17:51 02/07/2019 13:59:18 Acute folliculitis 886889341 L73.9 Secondary peripheral neuropathy 063723 G63 2/2 etoh no difference in neuropathy [...] who doesn't visit Vitamin D deficiency 347 57406 E55.9 never received the letter regarding this lab result will send in vitamin d now also take vitamin d3 2000 units after completing this will recheck level in 12 weeks Tobacco user 884166764 Z 72.[id number] [facility] [address] [facility], [place] [address] 04/28/2019 15:03:46 04/28/2019 16:25:32 Chronic obstructive pulmonary disease 25891670 J44.9 acute exacerbati on of copd Secondary peripheral neuropathy 532794 G63 2/2 etoh no difference in neuropathy [...] who doesn't visit Vitamin D deficiency 347 21273 E55.9 completed the macrodose of vitamin d needs to start the vitamin d r Tobacco user 190079889 Z 72.0 Harmful pa ttern of use of alcohol 37888572 F10.10 currently sober again Gout 78999592 M10.9 History of deep vein thrombosis 301287802 Z86.718 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 [address] [facility], [place] [address] 10/25/2019 15:02:33 10/25/2019 15:22:49 Harmful pattern of use of alcohol 71027494 F10.10 still drinking about 1 pint of hard liquor a day no plans on stopping or seeking help with this addiction advised to work on cutting back and drink water instead patient does not seem interested on doing this despite risks to his health will have patient call if he has another convulsio n Chronic ob structive pulmonary disease 99356093 J44.9 breathing is the same per patient not any worse, cough is the same as well Tobacco de pendence syndrome 39116380 F17.200 still smoking not ready to quit, no plans on quitting SARS-CoV-2 481316374 U07 .1 patient currently has a positive diagnosis of COVID told him to monitor symptoms and if he gets very sick again to go back to the hospital [id number] [facility] [address] [facility], [place] [address] 01/03/2020 15:04:00 01/03/2020 16:04:29 Harmful pattern of use of alcohol 59424367 F10.10 still drinking about 2 pint of hard liquor a day did discuss with patient about setting up with a rehab center and working with his advisor patient was open to this idea and gave permission for me to speak with his advisor Alcohol withdrawal 78536 0000 F10.939 patient states every time he stops drinking he gets violently ill so him refuses to stop drinking at this point [id number] Cristhian Delgado DO [facility] [address] [facility] [place] [address] 03/06/2020 09:10:45 03/06/2020 15:51:21 Harmful pattern of use of alcohol 10187321 F10.10 still drinking about 2 pint of hard liquor a day did discuss with patient about setting up with a rehab center and working with his advisor patient unwilling to stop drinking because of the withdrawal afterwards did discuss in detail with pt that the drinking is contributi ng to his neurologic al issues Chronic ob structive pulmonary disease 53688470 J44.9 breathing is the same per patient not any worse, cough is the same as well does need refill of his inhalers Fall W19.XXXS patient reports he fell due to balance issues, weakness in nabila legs most likely related to his drinking will set him up with Dr. Aldana again for eval Injury of head 96807837 S09.90XS no LOC and CT at hospital showed no acute changes MRI done in april, will not need another MRI History of deep vein thrombosis 091335306 Z86.718 was on eliquis but stopped to do hx of brain bleed no ride to the hospital so he is unwilling to do a fu US to assess chronic DVT due to brain bleed because of blood thinner, he should not be on eliquis at this time but should have US to assess [id number] Cristhian Delgado DO [facility] [address] [facility] [address] 04/19/2020 08:38:20 04/22/2020 15:44:[id number] [facility] [address] [facility] [facility] [address] 06/12/2020 14:07:08 06/12/2020 15:18:50 Harmful pattern of use of alcohol 41632649 F10.10 still drinking about 2 pint of hard liquor a day did discuss with patient about setting up with a rehab center and working with his advisor patient unwilling to stop drinking because of the withdrawal afterwards did discuss in detail with pt that the drinking is contributi ng to his neurologic al issues Chronic ob structive pulmonary disease 64917487 J44.9 breathing is the same per patient not any worse, cough is the same as well Neuropathy 129533659 G62 .9 will try on the 800 mg qd as patient said this was effective will slowly tirtate up the medication dosage [id number] [facility] [address] [facility], [place] [address] 04/11/2021 14:50:50 04/11/2021 16:21:09 Chronic obstructive pulmonary disease 23107071 J41.0 breathing is the same per patient not any worse, cough is the same as well Alcohol withdrawal 93477 0000 F10.931 has not had a drink in 1 mo but does plan to drink again though per patient in moderation recommend ed to not drink at all Secondary peripheral neuropathy 755568 G63 restarted gabapentin Harmful pa ttern of use of alcohol 05902687 F10.121 monitoring progress with drinking Pain of le ft shoulder joint 5611720087 2256493 M25.512 improving with at home [place] [id number] Cristhian Delgado [facility] [address] [facility], [place] [address] 09/17/2023 10:23:16 09/17/2023 11:04:03 Depression screening 580003728 Z13.31 SCREENING NEGATIVE Harmful pa ttern of use of alcohol 93036851 F10.121 on naloxone campral buspar zoloft Gout 62945044 M10.9 quiet now Neuropathy 128890202 G62 .9 had been on gabapentin Chronic ob structive pulmonary disease 61727232 J41.0 he is stable on the inhalers [id number] Cristhian Delgado [facility] [address] [facility], [place] [address] 10/18/2023 11:40:03 10/18/2023 12:58:27 Chronic obstructive pulmonary disease 19113445 J41.0 he is stable on the inhalers Harmful pa ttern of use of alcohol 81405861 F10.121 on naloxone campral buspar zoloft Tinea corporis 64371481 B35.4 between legs History of deep vein thrombosis [id number] Z86.718 recurrent Insomnia [id number] G47.[id number] [facility] [address],[place] [address] 11/30/2023 10:27:17 11/30/2023 15:30:22 Acute exacerbation of chronic obstructive pulmonary disease [id number] J44.1 start on pred and z radha Chronic ob structive pulmonary disease 74767862 J41.0 needs refiil [id number] Cristhian Delgado [facility] Internal [address],[place] [address] 12/29/2023 10:02:26 12/29/2023 15:40:20 Pre-surgery evaluation [id number] Z01.818 The patient was seen in the office today for pre-op evaluation . All medical conditions on patient's problem list were addressed and are currently stable, no interventi on needed at this time. Based on history and physical performed, the patient is cleared for surgery. Chronic ob structive pulmonary disease 96597991 J41.0 mild exacerbati oncan start prednisone taper after surgery [id number] Cristhian Delgado [facility] [address],[place] [address] 01/19/2024 10:45:59 01/19/2024 11:55:43 Acute exacerbation of chronic obstructive pulmonary disease 442527994 J44.1 seems stable now now acute changess Chronic ob structive pulmonary disease 87956983 J41.0 he is stable on the inhalers Neuropathy 422963583 G62 .9 had been on gabapentin Eczema 12159330 L30.9 Pain of bi lateral hands 7287524101 3058917 M79.642 M79.[id number] [facility] [address],[place] [address] 01/17/2024 09:44:31 01/17/2024 11:46:28 Generalized rash 849982479 R21 start on combinatio n treat of pred and anti-funga lhas a f/u on 01/18 with MB in officereco mmended him evaluate at that timeskin culture was negative, no staph infection [id number] Cristhian Delgado [facility] [address],[place] [address] 03/22/2024 11:00:25 03/22/2024 11:45:12 Chronic obstructive pulmonary disease 38359930 J41.0 he is stable on the inhalers COVID-19 [id number] U07.1 on medrol and azith getting better Acute exac erbation of chronic obstructive pulmonary disease 833082292 J44.1 seems stable now now acute changesdoi ng bettergive n spacer [id number] Cristhian Delgado [facility] [address],[place] [address] 05/19/2024 14:12:21 05/19/2024 15:20:28 Chronic obstructive pulmonary disease 03921542 J41.0 he is stable on the inhalers Nummular eczema 83737473 L30.0 Dislocatio n of shoulder joint 223079859 S43.006D Bilateral pain of joint of hands 2315625102 7603038 M25.541 M25.542 Screening for malignant neoplasm of colon 802890549 Z12.11 Chronic bronchitis 34282 004 J42 Neuropathy 791842140 G62 .9 had been on gabapentin [id number] Cristhian Delgado [facility] [address],[place] [address] 06/07/2024 11:29:13 06/07/2024 12:15:01 Chronic obstructive pulmonary disease 19611085 J41.0 he is stable on the inhalers Dislocatio n of shoulder joint 782605364 S43.006D Nummular eczema 19140606 L30.0 Depression screening 171 261607 Z13.31 SCREENING NEGATIVE Bilateral pain of joint of hands 2084973204 5712153 M25.541 M25.542 Acute exac erbation of chronic obstructive pulmonary disease 680435944 J44.1 seems stable now now acute changesdoi ng bettergive n spacer [id number] Cristhian Delgado DO [facility] Internal Medicine [address],[place] [address] 10/10/2024 15:56:56 10/11/2024 10:30:30 Depression screening 788718408 Z13.31 SCREENING NEGATIVE Harmful pa ttern of use of alcohol 06415246 F10.121 on naloxone campral buspar zoloft Chronic ob structive pulmonary disease 94753401 J41.0 he is stable on the inhalers Eczema of lower leg 7623 63319 L30.9 [id number] will use cream 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 will cont gabapentin but consider change to duloxetine Health Concerns Section Related Observation LastModified by Organization Detai ls LastModified Time None Recorded Concern Status LastModified by Organization Details LastModified Time None Recorded Advance Directives Directive None Recorded Payers Insurance Date Sequence Insurance Name Policy Number Policy Ruiz Covered Member ID Ruiz Member ID Guarantor Name 05/19/2024 1 [facility] - DOS PRIOR TO 2022 - DUAL ELIGIBLE (MEDICARE REPLACEMENT/ADV ANTAGE - HMO) Edgardo Zavala [id number] Edgardo Zavala 05/19/2024 1 [place] [employer] Edgardo Zavala [id number] Edgardo Zavala 01/16/2025 1 PENDING SALE TO [facility] - DOS ON OR AFTER 2022 - MEDICARE [place]VANTAGE [place]MEDICARE REPLACEMENT/ADV ANTAGE - PPO) Edgardo Zavala [id number] Edgardo Zavala 05/19/2024 1 [place] PRIOR TO 2022 - [facility] (MEDICAID) Edgardo Zavala [id number] Edgardo Zavala Notes Date Note Type Note Provider Name a nd Address Organization Details Recorded Time 4 text/html ROS as noted in the HPI here for rechkrelates that had a rsh for mult weeks creams not helpfulstill smokeshaving a prob with the rash not going away Cristhian Delgado DO [address] [place], [address], [facility] 01/19/2024 11:54:47 5 text/html ROS as noted in the HPI here for rechk of his lungs since having covid was seen twice in ER and actually signed out AMA on second visit was told to stay due to lower O2 sat but went hometoday O2 sat 95% Cristhian Delgado DO [address] [place], [address], [facility] 03/22/2024 11:38:17 5 text/html ROS as noted in the HPI hwere for rechk right shoulder is pretty bad as of late since the dislocation episode back in januaryrelates that he has also had a problem with his short term memoryhas noticed for several monthsals o the neuropathy has been worse Cristhian Delgado DO [address] [place], [address], [facility] 05/19/2024 15:07:19 5 text/html [...] get riding on his motorcycle again Cristhian Delgado DO [address] [place], [address], [facility] Medicine 06/07/2024 12:12:26 08/12/202 5 text/html Care Management - Chronic Obstructive [...] get riding on his motorcycle again Cristhian Delgado, DO [address] [facility], [place], [address], [place] [facility] 10/10/2024 16:56:27
--- OUTSIDE RECORDS SUMMARY | 2025-01-24 16:37 | XMS_ITS | Data Portability ---
Author Organization [facility], Main Office Address [address] [facility] [place] [address] Care Team Providers Care Residential Monitor Name Role Phone LAM BARAJAS - 2ND FLOOR OTHER DANIELA PEREZ Primary Care Provider [phone] Assessment No assessment recorded. Plan of Treatment [...] deep vein thrombosis of lower extremitie s [id number] Active 2017 IVC FILTER IN 2017 and bilateral thrombolys is SHELBI STREETER [address] [facility], [address], [place], [address] [place] [address] 8 12:36:34 Alcohol withdrawal delirium 1815806 Active 2017 Viridiana rainey [facility] 8 10:43:30 Chronic obstructiv e pulmonary disease 83284771 Active 2017 Viridiana rainey [facility] 8 10:43:38 Aspiration pneumonia 881038084 Active 2017 Viridiana rainey [facility] 8 10:43:47 Urinary tract infectious disease 20376856 Active 2017 Viridiana rainey [facility] 8 10:44:01 Tobacco dependence syndrome 78716973 Active 2017 Viridiana rainey [facility] 8 10:44:11 Peripheral nerve disease 007730636 Active 2017 Viridiana Miller brigid, [facility] 8 10:44:19 Anemia 550728826 Active 2017 Viridiana rainey, [facility] 8 10:44:24 Thrombocyt openic disorder 822631522 Active [address] , [address], [place], [address], [facility] 8 12:35:04 Chronic hepatitis 87035206 Active [address], [address], [place], [address], [facility] 8 12:35:27 Alcohol dependence 70395118 Active 2017 Giovani Juarez MD [address] [facility], [address], [place], [address], [facility] 8 12:06:43 Left upper quadrant pain 801667858 Active 2017 SHELBI Daly [address] , [address], [place], [address], [facility] 8 15:19:12 Cellulitis of buttock 80512037 Active 2022 ELIZABETH JACSKON NP [address] [facility], [address], [place], [address], [facility] 3 13:40:37 Harmful pattern of use of alcohol 39965311 Active 2022 ELIZABETH JACKSON NP [address], [address], [place], [address], [facility] 3 13:41:13 Open wound of buttock 669958381 Active 2022 ELIZABETH JACKSON NP [address], [address], [place], [address], [facility] 3 13:43:26 Problem Notes None recorded. Medical Equipment None Reported. Allergies Allergen ID Allergen Name Allergen Category Reaction Reaction Severity Criticality Documentation Date Start Date Code Code System Note Provider Name and Address Organization Details Recorded Time 52997 peanut allergeni c extract food,medi cation Not available Not available Not available 10/15/2022 47663 8 RxNorm peanu t butte r, facia l tere JACKSON NP [address] [facility], [address], [place], [address], [employer] [facility] 3 13:39:42 86525 raspberry extract food,medi cation Not available Not available Not available 10/15/2022 24311 69 RxNorm facia l tere JACKSON NP [address] [facility], [address], [place], [address], [employer] 3 13:40:02 Vitals Date Recorded Heart rate Respiratory rate Body temperature Systolic And Diastolic Provider Name and Address Organization Details Last Updated DateTime 10/15/2022 73 /min 18 /min 98.3 [degF] 91/55 mm[Hg] ELIZABETH JACKSON NP [address] [facility], [address], [place], [address], [employer] 3 13:33:48 Date Recorded Body temperature Oxygen saturation Heart rate Systolic And Diastolic Provider Name and Address Organization Details Last Updated DateTime 10/19/2022 98.3 [degF] 94 % 73 /min 91/55 mm[Hg] Cecilia Tucker MD [address] [facility], [address], [place], [address] , [employer] [facility] 3 06:30:21 Date Recorded Body weight Heart rate Respiratory rate Body temperature Oxygen saturation Systolic And Diastolic Provider Name and Address Organization Details Last Updated DateTime 3 51395.7 2 g 73 /min 18 /min 98.3 [degF] 94 % 91/55 mm[Hg] Violette Newell NP [address] [facility], [address], [place], [address], [employer] [facility] 3 11:10:43 Date Recorded Body weight Heart rate Respiratory rate Body temperature Oxygen saturation Systolic And Diastolic Provider Name and Address Organization Details Last Updated DateTime 3 12651.7 2 g 73 /min 18 /min 98.3 [degF] 94 % 91/55 mm[Hg] Violette Newell, [place] [address], [address], [place], [address], [facility] [employer] [facility] 3 12:59:44 Date Recorded Body weight Heart rate Respiratory rate Body temperature Oxygen saturation Systolic And Diastolic Provider Name and Address Organization Details Last Updated DateTime 3 98412.7 2 g 73 /min 18 /min 98.3 [degF] 94 % 91/55 mm[Hg] Violette Newell, [place] [address], [address], [place], [address], [facility]ush [facility] 3 10:56:55 Social History Question Answer Notes LastModified by Versium Details LastModified Time Tobacco Smoking Status Current Every Day Smoker Viridiana Miller brigid, [facility] 05/19/2017 10:55:27 Do You Have An Advance Directive? Yes Information not available 10/15/2022 How Many Years Have You Consumed Alcohol? 44 Information not available 05/19/2017 What Is Your Code Status? Full Code Information not available 10/15/2022 Which Illicit Or Recreational Drugs Have You Used? Marijuana Information not available 10/15/2022 How Many Days In The Past Year Have You Had A Heavy Drinking Consumption (4+ Female, 5+ Male)? 365 Drinks 1 Pint Of [place] And 2 Nips/day, Longest Period Of Sobriety 6 Mos Information not available 05/19/2017 Do You Have A Medical Power Of Part Maker? Yes Information not available 05/19/2017 What Was The Date Of Your Most Recent Tobacco Screening? 10/15/2022 [email or web address] Information not available 10/15/2022 How Much Tobacco Do You Smoke? 1 PPD Information not available 05/19/2017 How Many Years Have You Smoked Tobacco? 40 Information not available 05/19/2017 Sex: Unknown Functional Status Question Answer Note LastModified by Organizat ion Details LastModified Time Do you use any illicit or recreational drugs? Yes [email or web address] Information not available 10/15/2022 What is your level of alcohol consumption? Heavy Information not available 05/19/2017 Mental Status None recorded. Family History Nothing Reported Notes:N/C Medical History No medical history recorded. Immunizations Vaccine Type Date Status Note Provider Nam e and Address Organization Details Recorded Time COVID-19 vaccine, vector-nr, rS-Ad26, PF, 0.5 mL 2 completed [facility] 10/22/2022 16:48:27 Tdap 2 completed [facility] 10/22/2022 16:48:42 pneumococcal polysaccharide PPV23 1 completed [facility] 05/27/2023 13:19:59 influenza, unspecified formulation 3 completed [facility] 05/27/2023 13:21:04 influenza, unspecified formulation 4 completed [facility] 05/27/2023 13:21:19 SARS-COV-2 (COVID-19) vaccine, UNSPECIFIED 3 completed [facility] 05/27/2023 13:21:41 Past Encounters Encounter ID Performer Location Encounter Start Date Encounter Closed Date Diagnosis/Indication Diagnosis SNOMED-CT Code Diagnosis ICD10 Code Diagnosis IMO Codes Diagnosis Note [id number] [address] [place] [address] 05/19/2017 10:32:28 05/25/2017 14:07:44 Bilateral deep vein thrombosis of lower extremities 976815687 I82.493 See HPIs/p IVC filter Dec, s/p EKOS catheter thrombolys is 3/2Eliquis 10 mg BID until 05/22 then 5 mg BIDMonitor for increase in pain/edema PT/OT eval and treat Alcohol wi thdrawal delirium 7310024 F10.231 Hx of heavy alcohol use with DTs in hospitalRi speridone 0.25 mg TIDThiamin e 100 mg dailyFolic acid 1 mg dailyMonit or moodNEG consult prn Aspiration pneumonia 422 878413 J69.0 Augmentin to complete courseAdd probioticA spiration precaution sSLP eval and treat Urinary tr act infectious disease 38292135 N30.00 Complete antibiotic as aboveMonit or sxs Chronic ob structive pulmonary disease 81634072 J41.8 Duonebs prnSupplem ental O2 prnMonitor respirator y status Tobacco de pendence syndrome 11201615 F17.210 Nicotine patchEncou rage smoking cessation Peripheral nerve disease 664814346 G64 Secondary to ETOH abuseMonit or sxs Anemia 057456736 D64.89 Repeat and monitor CBC [id number] MD MARKUS Melchor [address] [id number] 05/24/2017 10:26:07 05/26/2017 12:52:00 Bilateral deep vein thrombosis of lower extremities 564055285 I82.493 see HPIEliquis 5 mg bidmonitor with restart of medication on dose decreasing from 10 mg bid Alcohol wi thdrawal delirium 9069200 F10.231 see HPIthiamin e 100 mg qdmonitor for sx Tinea cruris 929028864 B 35.6 nystatin powdermoni tor to resolution Peripheral nerve disease 004399591 G64 start neurontin 100 mg tidtitrate for effect Urinary tr act infectious disease 34036083 N10 complete abmonitor for sx Chronic ob structive pulmonary disease 43934082 J41.1 at baselineco ntinue [place] [id number] [address] [place] [place] [address] 06/01/2017 10:32:02 06/10/2017 14:19:14 Bilateral deep vein thrombosis of lower extremities 507901875 I82.493 see HPIEliquis 5 mg bidF/u with PCP Alcohol wi thdrawal delirium 4636813 F10.231 see HPIthiamin e 100 mg qdd/c risperidal Home services in place with social work and psych consults Chiqui t motivated to remain sober Peripheral nerve disease 318940298 G64 Increase neurontin 200 mg tidf/u with PCP Urinary tr act infectious disease 22778128 N10 antibiotic course completeap pears resolved Chronic ob structive pulmonary disease 54419082 J41.1 at baselineco [place]tin[place] [id number] [address] 09/16/2017 12:30:46 09/28/2017 15:08:07 Chronic hepatitis 18624048 K70.10 PT/OT eval and treatfollo w LFTsencour age ETOH abstinence psych eval and treat for abstinence follow up with GI prn Thrombocyt openic disorder 128741948 D69.59 monitor labsPlts corrected currently from 70 to 203 Chronic ob structive pulmonary disease 42958164 J41.8 duoneb q 4 hrs prnmonitor respirator y status Peripheral nerve disease 623388044 G64 neurontin 300 mg q 8 hrswill change to 300 mg q 9 am and 2 pm and 600 mg q hsc/o foot pain increased at nightmonit or pain Bilateral deep vein thrombosis of lower extremities 270684240 I82.593 eliquis 2.5 mg bidIVC filter in placemonit or labs Alcohol wi thdrawal delirium 1007732 F10.231 folic acid 1 mg qdmultivit e qdthiamine qdmonitor for withdrawal ativan 0.5 mg q 4 hrs prn added Tobacco de pendence syndrome 08442185 F17.210 nicotine patch 21 mg/24 hr qdmonitor for withdrawal [id number] MD ASHLEY Melchor AT [address] [address] 09/18/2017 12:00:41 09/28/2017 15:44:02 Asthenia 88391117 R53.1 see HPIPT OT eval and treatmonit or lytes Chronic hepatitis 125765 07 K73.2 see HPIseconda ry to ETOHGI eval prn Alcohol dependence 86145 003 F10.288 extended discussion with patient concerning use of etoh and effect on health. when patient returned after SNF stay in 05/16 again began drinking 1 pint and 1 nip per daypatient states understand ing that continuing with prior drinking habits will result in Thrombocyt openic disorder 101809904 D69.59 repeat and monitor cbc Bilateral deep vein thrombosis of lower extremities 817780144 I82.493 see HPIEliquis 2.5 mg bidmonitor with restart of medication IVC filter in place Chronic ob structive pulmonary disease 50935306 J41.1 at baselinedu onebs in place [place] [id number] [address] [address] 09/20/2017 16:11:59 09/28/2017 15:48:42 Chronic hepatitis 70548162 K70.10 PT/OT eval and treatfollo w LFTs weekly and once he is outpt with pcpencoura ge ETOH abstinence follow up with GI prnwill get ortho BPs bid x 2 days Thrombocyt openic disorder 251073154 D69.59 monitor labs, improved Chronic ob structive pulmonary disease 11691049 J41.8 duoneb q 4 hrs prnmonitor respirator y statusenco urage pt to stop smoking Peripheral nerve disease 569298655 G64 neurontin 300 mg q 9 am and 2 pm and 600 mg q hsmonitor pain Bilateral deep vein thrombosis of lower extremities 929758882 I82.593 eliquis 2.5 mg bidIVC filter in placemonit or labs Alcohol wi thdrawal delirium 6052751 F10.231 folic acid 1 mg qdmultivit e qdthiamine qdativan 0.5 mg q 4 hrs prn Tobacco de pendence syndrome 92235002 F17.210 nicotine patch 21 mg/24 hr qd [id number] [address] AT [address] [address] 09/21/2017 15:09:20 09/28/2017 16:05:00 Alcohol dependence 58784506 F10.20 ok to dc home tomorrowst rongly encouraged abstinence /AA Chronic hepatitis 202819 07 K70.10 encourage ETOH abstinence follow up with GI prn and pcp Bilateral deep vein thrombosis of lower extremities 975147249 I82.593 eliquis 2.5 mg bidIVC filter in place Chronic ob structive pulmonary disease 48303992 J41.8 duoneb q 4 hrs prnencoura ge pt to stop smoking Left upper quadrant pain 122946147 R10.12 pt will f/u with PCP as out pt for further testing if needed [id number] [address] AT [address] [address] 10/02/2017 16:10:48 10/20/2017 12:10:03 Alcohol dependence 41137131 F10.20 see hpiPT OT for conditioni ng and mobilityst rongly encouraged abstinence Chronic ob structive pulmonary disease 72845222 J41.8 duoneb q 4 hrs prnencoura ge pt to stop smoking Anemia 129416314 D64.9 monitor cbc Peripheral nerve disease 172084812 G64 neurontin 300 mg q 9 am and 2 pm and 600 mg q hsmonitor pain Bilateral deep vein thrombosis of lower extremities 838518751 I82.593 resume eliquis 2.5 mg bidIVC filter in placedue to alcoholism he would not be a candidate for coumadin [id number] MD ROSMERY MelchorLEY AT [address] [address] 10/05/2017 15:13:51 10/20/2017 13:22:05 Asthenia 51205664 R53.1 see HPImultifa ctorial PT OT eval and treatmonit or lytes Alcohol dependence 50258 003 F10.288 Repeat extended discussion with patient concerning use of etoh and effect on health. patient states understand ing that continuing with prior drinking habits will result in Chronic hepatitis 747549 07 K73.2 see HPIseconda ry to ETOHGI eval prn Bilateral deep vein thrombosis of lower extremities 116228699 I82.493 see HPIEliquis 2.5 mg bidmonitor with restart of medication IVC filter in place Peripheral nerve disease 212032944 G64 increase gabapentin to 300 mg tidmonitor for effect [id number] [address] 10/07/2017 14:48:18 10/20/2017 14:00:14 Alcohol dependence 77894250 F10.288 encouraged to abstain from ETOHfollow up with PCP Chronic hepatitis 056181 07 K73.2 secondary to ETOHfollow up with PCP Bilateral deep vein thrombosis of lower extremities 864941823 I82.493 Eliquis 2.5 mg bidspoke with him at length about needing to contact PCP and pharmacy to get prior authorizat ion form for eliquisIVC filter in placefollo w up with PCP Peripheral nerve disease 844672979 G64 gabapentin to 300 mg tidtylenol as neededfoll ow up with PCP [id number] ELIZABETH JACKSON NP [address] [address] 10/15/2022 13:30:52 10/20/2022 10:25:28 Cellulitis of buttock 73536167 L03.317 Continue levaquin 500 mg daily x 3 daysAdd probiotic bid x 7 daysStill with inflammati on/indurat ion around woundTrend sx., VS, labsCBC, BMP q wednesday Alcohol dependence 11681 003 F10.288 s/p phenobarb protocol in hosp., no sx. of withdrawal Encourage abstinence Open wound of buttock 26 7988953 S31.829A With associated abscess and cellulitis Debrided 10/08Finish abx. as aboveCurre nt tx. moist kerlix and DCD daily and prnRefer to [facility] wound clinic for eval and tx. - pt. concerned about transporta tion - if too expensive can refer to Wound team hereMonito r wound, VS, labs for change Chronic ob structive pulmonary disease 52308156 J41.8 Combivent respimat 1 inh qid prnAlbuter ol MDI q4 hr prn - requesting to keep at bedside and self administer Continues to smoke Tobacco de pendence syndrome 42382221 F17.210 Continues to smoke hereEnc. 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 for sobrietyth iamine 100 mg dailyfolic acid 1 mg dailyMVI dailywill monitor Open wound of buttock 26 9284426 S31.829A s/p I&Dantibio tics completedw ound care per surgery recommenda tionsfollo w up wound clinic Chronic ob structive pulmonary disease 58375527 J41.8 Combivent 18-103: 1 puff q6h prnalbuter ol HFA: 1 puff q4h prnwill monitor Asthenia 47264652 R53.1 PT/OTwill monitor and support s needed History of deep vein thrombosis 584497128 Z86.718 apixaban 5 mg bidwill monitor [id number] Violette Newell NP [address] [address] 10/22/2022 11:09:43 10/26/2022 10:58:25 Harmful pattern of use of alcohol 74414448 F10.10 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 for sobrietyno tremor noted, anxious at baselineth iamine 100 mg dailyfolic acid 1 mg dailyMVI dailywill monitor Open wound of buttock 26 2169190 S31.829A s/p I&D on 10/08/22IV and po antibiotic s completed for cellulitis wound care per surgery recommenda tionsfollo w up wound clinic and dressings dailymonit or cbc and labs weekly Chronic ob structive pulmonary disease 87804745 J41.8 Combivent 18-103: 1 puff q6h prnalbuter ol HFA: 1 puff q4h prnwill monitor Asthenia 11668450 R53.1 PT/OTwill monitor and support s needed History of deep vein thrombosis 932953208 Z86.718 apixaban 5 mg bids/p ivc filterwill monitor Alcohol dependence 63683 003 F10.288 s/p phenobarb protocol in hosp., no sx. of withdrawal Encourage abstinence Tobacco de pendence syndrome 93169478 F17.210 Continues to smoke hererefuse s nicotine patchEnc. 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 of withdrawal Encourage abstinence Tobacco de pendence syndrome 12162343 F17.210 Continues to smoke here now on scheduled breaks with staffrefus es nicotine patchEnc. abstinence Intertrigo 08524174 L30. 4 nystatin topically powder bid and prn x 14 daysmonito r Neuropathy 768921424 G62 .[address] De La Cruz this weekend09/30 she recommends 2% gel diclofenac topically 2 gram to bilateral feet bid, will agree todaymonit or for relief [id number] Violette Newell NP [address] [address] 10/27/2022 10:55:47 10/29/2022 09:47:39 Open wound of buttock 832380786 S31.829A s/p I&D on 10/08/22IV and po antibiotic s completed for cellulitis follow up wound clinic and dressings every 3rd day with stacy westfall to wound [employer] herecurren t order to left buttock wound irrigiate with wound wash, pack with hydrofera blue-moist en with ns, squeeze excess out. cover wtih zetuvit plus silicone bordered dressing q 3 dayscont protein liquid or supplement s to add in wound healingmon itor outpt with pcp and vna Intertrigo 06471095 L30. 4 nystatin topically powder bid and prn until healedvna to assess for resolution monitor outpt Neuropathy 974206573 G62 .[address] 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 for sobrietyno tremor noted, anxious at baselineth iamine 100 mg dailyfolic acid 1 mg dailyMVI dailywill monitor outpt with pcp Chronic ob structive pulmonary disease 52623329 J41.8 Combivent 18-103: 1 puff q6h prnalbuter ol HFA: 1 puff q4h prnmonitor outpt with pcp Asthenia 63287113 R53.1 improved herewill monitor and support s needed outptmonit or outpt, pt/ ot to assess for safety, strengthen ing and balance, offloading pressure to wound, and safety conditions at home History of deep vein thrombosis 182215045 Z86.718 apixaban 5 mg bids/p ivc filterwill monitor outpt Alcohol dependence 81995 003 F10.288 s/p phenobarb protocol in hosp., no sx. of withdrawal Encourage abstinence outpt and services as needed Tobacco de pendence syndrome 34775409 F17.210 Continues to smoke here now on [...] Ruiz Member ID Guarantor Name 10/14/2022 1 [facility] - HEALTH NET PLAN (MEDICAID HMO) [id number] Edgardo Zavala [id number] Edgardo Zavala 10/26/2022 1 [facility] - DOS ON OR AFTER 2022 - MEDICARE ADVANTAGE [place] (MEDICARE REPLACEMENT/ADV ANTAGE - PPO) Edgardo Zavala [id number] Edgardo Zavala Notes Date Note Type Note Provider Name and Address Organization Details Recorded Time 10/15/2022 text/html Edgardo is seen today for initial intake. He is a 62 yo male admitted to [facility] 10/14/22 from [facility] for continued care and rehab after a brief hosp. related to a buttock wound and cellulitis. He presented to [facility] 10/07 with several days of buttock pain [...] with DCD. Needs follow up with [facility] wound clinic, ? wound vac. Upon d/c abx. changed to levaquin x 3 more days.DVT - remained on eliquisTobacco use - nicoderm patchCOPD - stable PMH: ETOH abuse, anemia, BLE DVTs IVC filter 2017 and bilat. thrombolysis, chronic hepatitis, COPD, PVD, thrombocytopenia, tobacco use, UTIMOLST: full code ELIZABETH JACKSON NP [address] [facility], [address], [place], [address], [facility] [employer] 10/15/2022 14:49:09 10/19/2022 text/html This 62 year old man was admitted to [facility] on 10/14/22for rehab and continued care. 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 He was having several [...] - signed 10/15/22 Cecilia Tucker MD [address] [facility], [address], [place], [address], [facility] [employer] 10/19/2022 14:28:20 10/22/2022 text/html Patient is seen for an acute rounding visit today. 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 He was having several [...] - signed 10/15/22 Violette Newell NP [address] [facility], [address], [place], [address], [facility] [employer] 10/22/2022 11:32:05 10/26/2022 text/html Patient is seen [...] 62 year old man was admitted to [facility] on 10/14/22for rehab and continued care after presenting to the ER at [facility] on 10/07/22. He was having several [...] - signed 10/15/22 Violette Newell NP [address] [facility], [address], [place], [address], [facility] [employer] 10/26/2022 13:39:46 10/27/2022 text/html Patient is seen for a discharge summary visit today. Edgardo is a 62 year old man was admitted to [facility] on 10/14/22for rehab and continued care after presenting to the ER at [facility] on 10/07/22. He was having several [...] 3 days now according to the wound [employer]. His groin is improving with the nystatin [...] MOLST: full code - signed 10/15/22 Violette Newell, ARN[address] [facility], [address], [place], [address], [facility] - [facility] 10/28/2022 10:11:07
--- OUTSIDE RECORDS SUMMARY | 2025-01-24 16:37 | XMS_ITS | Clinical Summary ---
Author Organization [facility] Address [address] [place] [address] Phone Care Team Providers Care Carrier Loader Name Role Phone Cristhian Delgado DO Primary Care Provider [phone] Allergies Active Allergy Reactions Criticality Noted Date [...] total) by mouth at bedtime. 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 Other iron deficiency anemias 12/12/2022 Hypomagnesemia 12/12/2022 Other hypotension 12/12/2022 Difficulty in walking, not elsewhere classified 12/12/2022 Alcoholic polyneuropathy ([facility] V24) Acute embolism and thrombosis of other specified veins 12/12/2022 Alcohol abuse with withdrawa l, uncomplicated ([facility] V24, [facility] V28) 12/12/2022 Chronic obstructive pulmonar y disease with (acute) exacerbation ([facility] V24, [facility] V28) 12/12/2022 Resolved Problems Problem Noted Date Diagnosed Date Resolved Date Acute hypoxemic respiratory failure ([facility] V24, [facility] V28) 03/17/2024 03/18/2024 Encounters Date Type Department Care Team Description 12/20/2024 5:55 PM EDT - 12/21/2024 2:58 PM EDT Hospital Encounter [facility] [address] [place] [id number] Rai Gonzalez MD Goebel, Mathew, MD Jones, Christopher, MD Rasul, Yar M, MD Mohani, Priya, MD Hypoxia (Primary Dx); ETOH abuse; Chest pain, unspecified type; Viral pneumonia; Acute hypoxic respiratory failure ([facility] V24, [facility] V28) Discharge Disposition: Left Against Medical Advice from Last 3 Months Surgical History Surgery Date Site/Laterality Comments IVC FILTER Medical History Medical History Date Comments COPD (chronic obstructive pulmonary disease) ([facility] V24, [facility] V28) Neuropathy Social History Tobacco Use Types [...] Screening 02/01/2022 Depression Screening 03/01/2024 COVID-19 Vaccine (3 - season) 2024 01/28/2023, 03/25/2021 Influenza Vaccine (#1) [...] MOLECULAR STUDY Routine 12/21/2024 1:59 AM EDT [id number], RSV, FLU A AND B QUALITATIVE RT-PCR, [...] blood stool, guaiac (12/21/2024 11:46 AM EDT) [facility] Occult Blood, Stool #1 Positive( A) Negative 12/21/2024 12:28 PM EDT [facility] Stool Rectum structure / Unknown Non-blood Collection / Unknown 12/21/2024 11:46 AM EDT 12/21/2024 11:52 AM EDT Karolyn RABAGO LAB BODY FLUIDS AND STOOLS OR DERABLES Final Result [facility] [address] [place] [address], [place] [phone] * (ABNORMAL) Drug abuse screen 8a panel, urine (12/21/2024 11:46 AM EDT) [facility] Amphetamine Screen, Ur Negative Negative LAB CHEMISTRY METHOD 12:28 PM EDT [facility] Comment:Certain OTC medicati ons containing ephedrine, phenylephrine, pseudoephedrine and phenylpropanolamine can cause false positive results. Barbiturate Screen, Ur Positive(A ) Negative LAB CHEMISTRY METHOD 12:28 PM EDT [facility] Benzodiazepine Screen, Ur Negative Negative LAB CHEMISTRY METHOD 12:28 PM EDT [facility] Cocaine Screen, Ur Negative Negative LAB CHEMISTRY METHOD 12:28 PM EDT [facility] Opiate Screen, Ur Negative Negative LAB CHEMISTRY METHOD 12:28 PM EDT [facility] Cannabinoid (THC) Screen, Ur Negative Negative LAB CHEMISTRY METHOD 12:28 PM EDT [facility] Comment:Specimens from patie nts taking pantoprazole sodium (Protonix) have been shown to produce false positive results. Oxycodone Screen, Ur Negative Negative LAB CHEMISTRY METHOD 12:28 PM EDT [facility] Fentanyl, Ur Negative Negative LAB CHEMISTRY METHOD 12:28 PM T [facility] Urine Urine specimen obtained by clean catch procedure / Unknown Non-blood Collection / Unknown 12/21/2024 11:46 AM EDT 12/21/2024 11:52 AM EDT Narrative [facility] - 12/21/2024 12:28 PM EDT Assay cutoffs: Amphetamines 1000 ng/mL Barbiturates 200 ng/mL Benzodiazepines 200 ng/mL Cocaine 300 ng/mL Fentanyl 1 ng/mL Opiates 300 ng/mL Oxycodone 100 ng/mL THC 50 ng/mL Semi-quantitative assay for screening purposes only. Unconfirmed screening result should not be used for non-medical purposes. *ALTERNATE METHOD CONFIRMATION DONE UPON REQUEST ONLY* us Rai Gonzalez MD LAB URINE ORDERABLES Final Resul t [facility]) [facility] [address] [place] [address], * ECG 12 lead (12/21/2024 6:33 AM EDT) Only the most recent of2 resultswithin the time period is included. Ventricular Rate ECG 77 BPM GEMUSE Atrial Rate 77 BPM GEMUSE P-R Interval 116 ms GEMUSE QRS Duration 130 ms GEMUSE Q-T Interval 416 ms GEMUSE QTc 470 ms GEMUSE P Wave [place] 35 degrees GEMUSE R [place] -68 degrees GEMUSE T [place] 31 degrees GEMUSE ECG Interpretation Normal sinus [...] of2 resultswithin the time period is included. Pathologist [facility] WBC 5.7 4.8 - 10.8 K/mcL LAB HEMETOLOGY METHOD 12/21/2024 6:31 AM [facility] RBC 4.20(L) 4.50 - 5.50 M/mcL LAB HEMETOLOGY METHOD 12/21/2024 6:31 AM [facility] Hemoglobin 12.2(L) 13.5 - 17.5 g/dL LAB HEMETOLOGY METHOD 12/21/2024 6:31 AM [facility] Hematocrit 37.6(L) 42.0 - 54.0 % LAB HEMETOLOGY METHOD 12/21/2024 6:31 AM [facility] MCV 90.2 79.0 - 98.0 FL LAB HEMETOLOGY METHOD 12/21/2024 6:31 AM [facility] MCH 29.3 27.0 - 32.0 pcg LAB HEMETOLOGY METHOD 12/21/2024 6:31 AM [facility] MCHC 32.4 32.0 - 37.0 g/dL LAB HEMETOLOGY METHOD 12/21/2024 6:31 AM [facility] RDW 17.1(H) 11.0 - 15.0 % LAB HEMETOLOGY METHOD 12/21/2024 6:31 AM [facility] Platelets 142 130 - 400 K/mcL LAB HEMETOLOGY METHOD 12/21/2024 6:31 AM [facility] MPV 10.5 7.0 - 11.0 FL LAB HEMETOLOGY METHOD 12/21/2024 6:31 AM [facility] NRBC 0.0 <1.0 % LAB HEMETOLOGY METHOD 12/21/2024 6:31 AM [facility] NRBC Absolute 0.00 <0.10 K/mcL LAB HEMETOLOGY METHOD 12/21/2024 6:31 AM [facility] Neutrophils Relative 65.9 % LAB HEMETOLOGY METHOD 12/21/2024 6:31 AM [facility] Lymphocytes Relative 20.2 % LAB HEMETOLOGY METHOD 12/21/2024 6:31 AM [facility] Monocytes Relative 10.9 % LAB HEMETOLOGY METHOD 12/21/2024 6:31 AM [facility] Eosinophils Relative 2.1 % LAB HEMETOLOGY METHOD 12/21/2024 6:31 AM [facility] Basophils Relative 0.5 % LAB HEMETOLOGY METHOD 12/21/2024 6:31 AM [facility] Immature Granulocytes Relative 0.4 % LAB HEMETOLOGY METHOD 12/21/2024 6:31 AM [facility] Neutrophils Absolute 3.76 1.50 - 7.00 K/mcL LAB HEMETOLOGY METHOD 12/21/2024 6:31 AM EDT [facility] Lymphocytes Absolute 1.15 1.00 - 5.00 K/[facility] LAB HEMETOLOGY METHOD 12/21/2024 6:31 AM EDT [facility] Monocytes Absolute 0.62 0.20 - 1.00 K/[facility] LAB HEMETOLOGY METHOD 12/21/2024 6:31 AM EDT [facility] Eosinophils Absolute 0.12 0.00 - 0.50 K/[facility] LAB HEMETOLOGY METHOD 12/21/2024 6:31 AM EDT [facility] Basophils Absolute 0.03 0.00 - 0.20 K/[facility] LAB HEMETOLOGY METHOD 12/21/2024 6:31 AM EDT [facility] Immature Granulocytes Absolute 0.02 0.00 - 0.03 K/[facility] LAB HEMETOLOGY METHOD 12/21/2024 6:31 AM T [facility] Blood Venous blood specimen / Unknown Venipuncture / Unknown 12/21/2024 5:09 AM EDT 12/21/2024 5:59 AM EDT us Boom Nagel MD LAB BLOOD ORDERABLES Final Result [facility] [address] [place] [address], * Basic metabolic panel (12/21/2024 5:09 AM EDT) Sodium 135 133 - 145 mmol/L LAB CHEMISTRY METHOD 12/21/2024 7:41 AM EDT [facility] Potassium 4.0 3.5 - 5.5 mmol/L LAB CHEMISTRY METHOD 12/21/2024 7:41 AM EDT [facility] Chloride 98 96 - 110 mmol/L LAB CHEMISTRY METHOD 12/21/2024 7:41 AM EDT [facility] CO2 29 21 - 32 mmol/L LAB CHEMISTRY METHOD 12/21/2024 7:41 AM [facility] Anion Gap 8 3 - 11 LAB CHEMISTRY METHOD 12/21/2024 7:41 AM [facility] Glucose 94 70 - 100 mg/dL LAB CHEMISTRY METHOD 12/21/2024 7:41 AM [facility] BUN 15 5 - 25 mg/dL LAB CHEMISTRY METHOD 12/21/2024 7:41 AM [facility] Creatinine 0.72 0.70 - 1.30 mg/dL LAB CHEMISTRY METHOD 12/21/2024 7:41 AM [facility] eGFR 102 >=60 mL/min/1. 73m2 LAB CHEMISTRY METHOD 12/21/2024 7:41 AM [facility] Comment:Calculation based on the Chronic Kidney Disease Epidemiology Collaboration (CKD-EPI) equation refit without adjustment for race. BUN/Creatinine Ratio 20.8 LAB CHEMISTRY METHOD 12/21/2024 7:41 AM [facility] Calcium 8.6 8.5 - 10.5 mg/dL LAB CHEMISTRY METHOD 12/21/2024 7:41 AM [facility] Blood Venous blood specimen / Unknown Venipuncture / Unknown 12/21/2024 5:09 AM EDT 12/21/2024 5:59 AM EDT us Boom Nagel MD LAB BLOOD ORDERABLES Final Result [facility] [address] [place] [address], * Respiratory virus panel molecular study (12/21/2024 1:59 AM EDT) Adenovirus Detection by PCR Not Detected Not Detected LAB MICROBIOLOGY METHOD 12/21/2024 2:56 AM EDT [facility] Influenza A PCR Not Detected Not Detected LAB MICROBIOLOGY METHOD 12/21/2024 2:56 AM EDT [facility] Influenza B PCR Not Detected Not Detected LAB MICROBIOLOGY METHOD 12/21/2024 2:56 AM EDT [facility] Coronavirus 229E Not Detected Not Detected LAB MICROBIOLOGY METHOD 12/21/2024 2:56 AM EDT [facility] Coronavirus HKU1 Not Detected Not Detected LAB MICROBIOLOGY METHOD 12/21/2024 2:56 AM EDT [facility] Coronavirus OC43 Not Detected Not Detected LAB MICROBIOLOGY METHOD 12/21/2024 2:56 AM EDT [facility] Coronavirus NL63 Not Detected Not Detected LAB MICROBIOLOGY METHOD 12/21/2024 2:56 AM EDT [facility] Parainfluenza Virus 1 Not Detected Not Detected LAB MICROBIOLOGY METHOD 12/21/2024 2:56 AM EDT [facility] Parainfluenza Virus 2 Not Detected Not Detected LAB MICROBIOLOGY METHOD 12/21/2024 2:56 AM EDT [facility] Parainfluenza Virus 3 Not Detected Not Detected LAB MICROBIOLOGY METHOD 12/21/2024 2:56 AM EDT [facility] Parainfluenza Virus 4 Not Detected Not Detected LAB MICROBIOLOGY METHOD 12/21/2024 2:56 AM EDT [facility] RSV PCR Not Detected Not Detected LAB MICROBIOLOGY METHOD 12/21/2024 2:56 AM EDT [facility] Human Metapneumovirus A and B Not Detected Not Detected LAB MICROBIOLOGY METHOD 12/21/2024 2:56 AM EDT [facility] Rhinovirus/Entero virus Not Detected Not Detected LAB MICROBIOLOGY METHOD 12/21/2024 2:56 AM EDT [facility] Bordetella pertussis Not Detected Not Detected LAB MICROBIOLOGY METHOD 12/21/2024 2:56 AM EDT [facility] Bordetella parapertussis Not Detected Not Detected LAB MICROBIOLOGY METHOD 12/21/2024 2:56 AM EDT [facility] Mycoplasma pneumo by PCR Not Detected Not Detected LAB MICROBIOLOGY METHOD 12/21/2024 2:56 AM EDT [facility] Chlamydia pneumoniae Not Detected Not Detected LAB MICROBIOLOGY METHOD 12/21/2024 2:56 AM EDT [facility] SARS COV-2 Not Detected Not Detected LAB MICROBIOLOGY METHOD 12/21/2024 2:56 AM EDT [facility] Swab Structure of right anterior naris / Unknown Non-blood Collection / Unknown 12/21/2024 1:59 AM EDT 12/21/2024 2:01 AM EDT [facility] - 12/21/2024 2:56 AM EDT Testing was performed using the [employer] Respiratory Pathogen PCR Assay. All results must [...] MICROBIOLOGY - GENERAL OR DERABLES Final Result [facility] [address] [place] [address], * [id number], RSV, Influenza A and B qualitative RT-PCR (12/20/2024 10:53 PM EDT) Influenza A PCR Not Detected Not Detected LAB MICROBIOLOGY METHOD 12/21/2024 12:20 AM EDT [facility] Influenza B PCR Not Detected Not Detected LAB MICROBIOLOGY METHOD 12/21/2024 12:20 AM EDT [facility] RSV PCR Not Detected Not Detected LAB MICROBIOLOGY METHOD 12/21/2024 12:20 AM EDT [facility] SARS COV-2 Not Detected Not Detected LAB MICROBIOLOGY METHOD 12/21/2024 12:20 AM EDT [facility] Swab Both anterior nares / Unknown Non-blood Collection / Unknown 12/20/2024 10:53 PM EDT 12/20/2024 11:34 PM EDT Mario Quach MD LAB MICROBIOLOGY - GENERAL ORDAnh RABLES Final Result Performing Organization Address City/[facility]/ZIP Co de Phone Number [facility] [address] [place] [address], [place] [phone] * B-Type Natriuretic Peptide (BNP) (12/20/2024 9:27 PM EDT) BNP 20 <=100 pcg/mL LAB CHEMISTRY METHOD 12/20/2024 10:12 PM EDT [facility] Blood Venous blood specimen / Unknown Venipuncture / Unknown 12/20/2024 9:27 PM EDT 12/20/2024 9:38 PM EDT Rai Gonzalez MD LAB BLOOD ORDERABLES Final Resul t Performing Organization Address City/[facility]/ZIP Co de Phone Number [facility] [address] [place] [address], [place] [phone] * CT Angio Chest wo and/or w [...] angiography chest with contrast. 3D Postprocessing. Comparison: CT/WI/SR - CHEST ANGIOGRAPHY CT - 03/21/2023 08:08 [...] angiography chest with contrast. 3D Postprocessing. Comparison: CT/WI/SR - CHEST ANGIOGRAPHY CT - 03/21/2023 08:08 [...] LAB CHEMISTRY METHOD 12/20/2024 9:33 PM EDT [facility] Blood Venous blood specimen / Unknown Venipuncture / Unknown 12/20/2024 8:56 PM EDT 12/20/2024 9:03 PM EDT Narrative [facility] - 12/20/2024 9:33 PM EDT High levels of biotin in samples may falsely decrease hsTroponin values. Use caution when interpreting hsTroponin results in patients taking biotin who exhibit renal impairment (eGFR <60) or in patients taking more than 20 mg/day of biotin. us Rai Gonzalez MD LAB BLOOD ORDERABLES Final Resul t [facility] [address] [place] [address], [place] [phone] * XR Chest 2 Views (12/20/2024 8:46 PM EDT) Anatomical Region Laterality Modality Body Radiographic Mirella ging 12/20/2024 10:4 8 PM EDT Impressions 12/20/2024 10:48 PM EDT Patchy bilateral infiltrates. This document has been electronically signed by: Temo Llanos MD on 12/20/2024 22:48:02 Narrative 12/20/2024 10:48 PM EDT INDICATION: chest pain 2 view chest x-ray Comparison: DX/WI/SR - XR CHEST 2 - 03/17/24 14:46 EST Findings: No consolidation or effusion. Normal size heart. No acute fracture. Patchy bilateral infiltrates. Procedure Note Temo Llanos MD - 12/20/2024 INDICATION: chest pain 2 view chest x-ray Comparison: DX/WI/SR - XR CHEST 2 - 03/17/24 14:46 EST Findings: No consolidation or effusion. Normal size heart. No acute fracture. Patchy bilateral infiltrates. IMPRESSION: Patchy bilateral infiltrates. This document has been electronically signed by: Temo Llanos MD on 12/20/2024 22:48:02 Rai Gonzalez MD IMG XR PROCEDURES Final [...] Result * APTT (12/20/2024 7:52 PM EDT) aPTT 38.6 24.1 - 39.3 sec LAB COAGULATION METHOD 12/20/2024 8:24 PM EDT [facility] Blood Venous blood specimen / Unknown Venipuncture / Unknown 12/20/2024 7:52 PM EDT 12/20/2024 8:06 PM EDT us Rai Gonzalez MD LAB BLOOD ORDERABLES Final Resul t [facility] [address] [place] [address], [place] [phone] * Protime-INR (12/20/2024 7:52 PM EDT) Protime 13.1 10.6 - 13.9 sec LAB COAGULATION METHOD 12/20/2024 8:24 PM EDT [facility] INR 1.1 LAB COAGULATION METHOD 12/20/2024 8:24 PM EDT [facility] Blood Venous blood specimen / Unknown Venipuncture / Unknown 12/20/2024 7:52 PM EDT 12/20/2024 8:06 PM EDT us Rai Gonzalez MD LAB BLOOD ORDERABLES Final Resul t Performing Organization Address [facility]/ZIP Co de Phone Number [facility] [address] [place] [address], [place] [phone] * (ABNORMAL) Ethanol (12/20/2024 7:52 PM EDT) Ethanol Level 211(H) 0 - 10 mg/dL LAB CHEMISTRY METHOD 12/20/2024 8:37 PM EDT [facility] Blood Venous blood specimen / Unknown Venipuncture / Unknown 12/20/2024 7:52 PM EDT 12/20/2024 8:06 PM EDT us Rai Gonzalez MD LAB BLOOD ORDERABLES Final Resul t Performing Organization Address [facility] de Phone Number [facility] [address] [place] [address], [place] [phone] * (ABNORMAL) Comprehensive Metabolic Panel (CMP) (12/20/2024 7:52 PM EDT) Pathologist [facility] Sodium 141 133 - 145 mmol/L LAB CHEMISTRY METHOD 12/20/2024 8:37 PM [facility] Potassium 3.4(L) 3.5 - 5.5 mmol/L LAB CHEMISTRY METHOD 12/20/2024 8:37 PM [facility] Chloride 100 96 - 110 mmol/L LAB CHEMISTRY METHOD 12/20/2024 8:37 PM T [facility] CO2 31 21 - 32 mmol/L LAB CHEMISTRY METHOD 12/20/2024 8:37 PM [facility] Anion Gap 10 3 - 11 LAB CHEMISTRY METHOD 12/20/2024 8:37 PM [facility] Glucose 128(H) 70 - 100 mg/dL LAB CHEMISTRY METHOD 12/20/2024 8:37 PM [facility] BUN 13 5 - 25 mg/dL LAB CHEMISTRY METHOD 12/20/2024 8:37 PM [facility] Creatinine 0.81 0.70 - 1.30 mg/dL LAB CHEMISTRY METHOD 12/20/2024 8:37 PM [facility] eGFR 98 >=60 mL/min/1. 73m2 LAB CHEMISTRY METHOD 12/20/2024 8:37 PM [facility] Comment:Calculation based on the Chronic Kidney Disease Epidemiology Collaboration (CKD-EPI) equation refit without adjustment for race. BUN/Creatinine Ratio 16.0 LAB CHEMISTRY METHOD 12/20/2024 8:37 PM [facility] Calcium 8.8 8.5 - 10.5 mg/dL LAB CHEMISTRY METHOD 12/20/2024 8:37 PM [facility] AST (SGOT) 28 10 - 42 unit/L LAB CHEMISTRY METHOD 12/20/2024 8:37 PM [facility] ALT (SGPT) 21 10 - 60 unit/L LAB CHEMISTRY METHOD 12/20/2024 8:37 PM [facility] Alkaline Phosphatase 146(H) 42 - 121 unit/L LAB CHEMISTRY METHOD 12/20/2024 8:37 PM [facility] Total Protein 7.5 6.0 - 8.0 g/dL LAB CHEMISTRY METHOD 12/20/2024 8:37 PM [facility] Albumin 3.5 3.2 - 5.0 g/dL LAB CHEMISTRY METHOD 12/20/2024 8:37 PM [facility] Total Bilirubin 0.5 0.0 - 1.4 mg/dL LAB CHEMISTRY METHOD 12/20/2024 8:37 PM [facility] Blood Venous blood specimen / Unknown Venipuncture / Unknown 12/20/2024 7:52 PM EDT 12/20/2024 8:06 PM EDT us Rai Gonzalez MD LAB BLOOD ORDERABLES Final Resul t [facility] [place] ([facility] [address] [place] [address], from Last 3 Months Insurance [facility] MEDICARE Member Subscriber Plan / Payer (Ef fective 2023-Present) Name:GIO ZEE Relation to Subscriber:Self Name:Gio Zee Payer ID:[id number] Group ID:[id number] Type:Not on file Address: [place] [address] [place] [id number] Advance Directives Documents on File Type Date Recorded 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
--- NOTE | 2025-01-24 18:06 | PC.NURSE ---
Per CARE Team (Barbara) & provider (HIMA Perez), patient is detox bedsearch. Medically cleared. Patient is agitated, stating: so I'm not going upstairs? I want to go upstairs! Barbara (CARE team) explained that she will reach out/find detox placement for him. Patient attempting to provide urine specimen at this time. Regular safety diet tray ordered, called and spoke with kitchen. Plan to move the patient to ED BH Pod.
--- NOTE | 2025-01-24 18:38 | MHC.CARE ---
Addendum entered by Barbara Sim LCSW 01/24/25 19:23: [facility] admissions confirm that the referral was recieved. Original Note: Pt is currently an ATS bedsearch. [facility] ([phone]) currently has availability and is willing to review Pt's case for placement. Requested paperwork has been faxed to their admissions and CARE Team will be contacted regarding next steps.
--- NOTE | 2025-01-24 18:41 | PC.NURSE ---
Report given to Nafisa Gomez RN. Plan to move from front main ED to ED BH Pod.
[2025-01-24 19:00] VITALS: BP 125/69; PULSE 90; RESP 18; TEMP 36.8; O2SAT 95
--- NOTE | 2025-01-24 19:00 | PC.NURSE ---
pt brought from ed front main to pod at this time, vss and pt offers no complaints. pt awaiting detox bed at this time. CIWA=2.
[2025-01-24 19:25] LABS: Appearance Urine Clear; Glucose Urine UA Negative (Negative); PH 6.0 (5.0-9.0); Specific Gravity - Urine >= 1.030 (1.005-1.025)
[2025-01-24 19:32] LABS: Cannabinoid Screen Urine Not Detected (Not Detect)
--- NOTE | 2025-01-24 19:47 | PC.NURSE ---
Addendum entered by Alivia Frazier, RN 01/24/25 20:31: while pt was speaking to detox facility, pt became angry started yelling at the staff on the phone and hung up phone. Seng and HIMA Peerz at bedside with pt Original Note: pt with care team at this time and doing intake for detox facility.
--- NOTE | 2025-01-24 20:22 | MHC.CARE ---
Addendum entered by Barbara Sim LCSW 01/24/25 20:57: Pt declined from [facility]. There is concern about being able to treat his pain and it is felt that Pt requires a higher LOC. Original Note: [facility] admissions called back to do an intake with Pt. Received a call from admissions moments later reporting that Pt declined the bed and expressed that he was having difficulty ambulating and attending to ADL's. Discussed with ED provider who went to speak with Pt. Pt expressed some ambivalence with following through with treatment. Ultimately, he once again agreed to ATS. ED provider spoke with admissions regarding Pt's previous statements of his inability to ambulate and attend to ADL's. Per [facility] admissions, they are willing to admit Pt if staff at the facility are agreeable to this and they are waiting for their response. They will contact the CARE Team regarding acceptance. If accepted, Pt will need to complete a phone intake.
--- NOTE | 2025-01-24 21:21 | PC.NURSE ---
per HIMA Perez pt denied by detox facility at this time and plan for PT/CM eval.
--- NOTE | 2025-01-24 21:43 | PC.NURSE ---
attempted to do med rec with pt at this time, pt states he only takes eliquis and hydroxazine and does not take any other medications. MD Bradley aware
--- NOTE | 2025-01-24 21:43 | MHC.CM.ED ---
CM met with patient to discuss discharge planning. Pt was admitted to [facility] 01/17-01/22 with ETOH withdrawal. Pt recommended STR. Pt declined. D/C home with NA. Pt returned to [facility] ED requesting detox. CARE team met with patient. Bed search for detox. Patient was speaking with [facility] on the telephone for intake. He got angry, yelled and hung up on interviewer. Facility has declined admission stating that patient needs a higher level of care. Pt states he is very weak from not eating for 5 days and drinking. Pt was discharged on 01/22. Pt lives alone in his own home. He drives. He uses a cane. He no longer works and is on disability. HCP is on file. Pt is estranged from his family due to his alcoholism. Pt is now agreeable to PT evaluation and STR. CM will place local referrals. Pt is aware that he will probably have PT evaluation on Wednesday, as tomorrow is Thanksgiving. Pt is aware that with the holiday, he may be here through the weekend waiting for STR and insurance authorization. Pt is agreeable.
--- NOTE | 2025-01-24 23:32 | PC.NURSE ---
attempted to medicate pt at this time with night medications, pt states he does not want them at this time and would like to wait until the am. MD Brambila
[2025-01-25 06:13] VITALS: BP 149/76; PULSE 97; RESP 17; TEMP 36.4; O2SAT 97
--- NOTE | 2025-01-25 07:59 | PC.NURSE ---
Assumed care, report received. Pt is awake, mildly irritable but cooperative. He is given breakfast and AM meds. He is shows no current S/SY of withdraw. He utilizes his walker with a steady gait.
[2025-01-25 13:46] VITALS: BP 149/76; PULSE 97; RESP 17; TEMP 36.4; O2SAT 98
[2025-01-25 13:49] VITALS: BP 124/78; PULSE 73; RESP 18; TEMP 36.1; O2SAT 98
--- NOTE | 2025-01-25 13:59 | MHC.CM.ED ---
Received notification from [facility] that patient is requesting to d/c home. Met with patient to discuss d/c planning. Patient is no longer interested in STR and wants to d/c home. [facility] was supposed to admit patient to their service yesterday. However patient was sent to the ER and they were not able to admit patient. Due to ETOH, anticipate behavioral health services will also be needed. Referral made to [facility]. Patient agreeable. Patient will arrange his own transportiation. Radha FRANCO and Dr Marie aware. Continue to monitor for d/c needs.
--- NOTE | 2025-01-29 07:37 | MHC.CM.ED ---
Late entry from 01/25 late afternoon: Received notification that patient is active with [facility]. Dawit made aware.
== END 2025-01-25 14:20 | disposition home or self-care (01) ==
PROVIDERS: Emergency Provider Emergency Medicine; PCP Internal Medicine
DX: S22.43XA Multiple fractures of ribs, bilateral, initial encounter for closed fracture (principal); S61.411A Laceration without foreign body of right hand, initial encounter; F10.929 Alcohol use, unspecified with intoxication, unspecified; Y90.7 Blood alcohol level of 200-239 mg/100 ml; J44.9 Chronic obstructive pulmonary disease, unspecified; Z86.718 Personal history of other venous thrombosis and embolism; Z79.01 Long term (current) use of anticoagulants; Z91.010 Allergy to peanuts; Z91.018 Allergy to other foods; W10.9XXA Fall (on) (from) unspecified stairs and steps, initial encounter; Y93.9 Activity, unspecified; Y92.9 Unspecified place or not applicable; Y99.9 Unspecified external cause status
CPT/HCPCS: 36415; 70450; 71260; 72125; 73030; 73060; 73110; 73130; 80053; 80307; 81001; 83735; 85025; 96374; 96375; 99285; J0131; J3360; Q9967; S9485

== ENCOUNTER → 2025-01-24 13:51 | Outpatient (BNV) | payer OTHER, SELFPAY | PROVIDERS: Emergency Provider Emergency Medicine; PCP Internal Medicine; Visit Provider Radiology Diagnostic Radiology | DX: S22.43XA Multiple fractures of ribs, bilateral, initial encounter for closed fracture (principal); R91.8 Other nonspecific abnormal finding of lung field; J43.2 Centrilobular emphysema; J43.8 Other emphysema; Q60.3 Renal hypoplasia, unilateral; S09.90XA Unspecified injury of head, initial encounter; F10.90 Alcohol use, unspecified, uncomplicated; M25.512 Pain in left shoulder; M79.641 Pain in right hand; M79.642 Pain in left hand; M25.532 Pain in left wrist; M79.622 Pain in left upper arm; Z04.3 Encounter for examination and observation following other accident | CPT/HCPCS: 70450; 71260; 72125; 73030; 73060; 73110; 73130 ==

== ENCOUNTER 2025-01-28 20:57 | Emergency (ER) | payer OTHER, SELFPAY ==
--- NOTE | ~2025-01-28 | XR_ITS ---
CLINICAL HISTORY: Question fall 1 view chest x-ray Comparison: CR/SR - XR CHEST 1 VIEW - 01/17/25 09:26 EST Findings: The lungs are clear. Normal size heart. No acute fracture. IMPRESSION: 1. No acute findings. This document has been electronically signed by: Casey Santoro MD, PHD on 01/29/2025 03:40:16
[2025-01-28 21:07] VITALS: BP 102/71; PULSE 80; O2SAT 94
[2025-01-28 21:12] VITALS: BP 95/52; PULSE 78; RESP 16; TEMP 36.9; O2SAT 90
[2025-01-28 21:19] VITALS: BP 95/52; PULSE 78; RESP 16; O2SAT 90; BMI 20.1
--- OUTSIDE RECORDS SUMMARY | 2025-01-28 21:46 | XMS_ITS | Data Portability ---
Author Organization [facility], Main Office Address [address] [facility], [address] [place] [address] Care Team Providers Care Housekeeping Aid Name Role Phone LAM BARAJAS - 2ND FLOOR OTHER DANIELA PEREZ Primary Care Provider [phone] Assessment No assessment recorded. Plan of Treatment [...] deep vein thrombosis of lower extremitie s 768467767 Active 2017 IVC FILTER IN 2017 and bilateral thrombolys is SHELBI STREETER [address] [facility], [address], [place], [address] [place] [address] 8 12:36:34 Alcohol withdrawal delirium 9075285 Active 2017 Viridiana rainey [facility] 8 10:43:30 Chronic obstructiv e pulmonary disease 18103563 Active 2017 Viridiana rainey [facility] 8 10:43:38 Aspiration pneumonia 995503876 Active 2017 Viridiana rainey [facility] 8 10:43:47 Urinary tract infectious disease 85798145 Active 2017 Viridiana rainey [facility] 8 10:44:01 Tobacco dependence syndrome 30615552 Active 2017 Viridiana rainey [facility] 8 10:44:11 Peripheral nerve disease 494616537 Active 2017 Viridiana Miller brigid, [facility] 8 10:44:19 Anemia 150393273 Active 2017 Viridiana rainey, [facility] 8 10:44:24 Thrombocyt openic disorder 332421984 Active [address], [place], [address], [facility] 8 12:35:04 Chronic hepatitis 83949247 Active [address], [address], [place], [address], [facility] 8 12:35:27 Alcohol dependence 77651404 Active 2017 Giovani Juarez MD [address] [facility] [facility], [address], [place], [address], [facility] 8 12:06:43 Left upper quadrant pain 521826043 Active 2017 SHELBI Daly [address] , [address], [place], [address], [facility] 8 15:19:12 Cellulitis of buttock 79101892 Active 2022 ELIZABETH JACKSON NP [address] [facility], [address], [place], [address], [facility] 3 13:40:37 Harmful pattern of use of alcohol 16221999 Active 2022 ELIZABETH JACKSON NP [address], [address], [place], [address], [facility] 3 13:41:13 Open wound of buttock 335085128 Active 2022 ELIZABETH JACKSON NP [address], [address], [place], [address], [facility] 3 13:43:26 Problem Notes None recorded. Medical Equipment None Reported. Allergies Allergen ID Allergen Name Allergen Category Reaction Reaction Severity Criticality Documentation Date Start Date Code Code System Note Provider Name and Address Organization Details Recorded Time 06652 peanut allergeni c extract food,medi cation Not available Not available Not available 10/15/2022 13539 8 RxNorm peanu t butte r, facia l tere JACKSON NP [address] [facility] [facility], [address], [place], [address], [facility] 3 13:39:42 54327 raspberry extract food,medi cation Not available Not available Not available 10/15/2022 01543 69 RxNorm facia l tere JACKSON NP [address] [facility] [facility], [address], [place], [address], [facility] 3 13:40:02 Vitals Date Recorded Heart rate Respiratory rate Body temperature Systolic And Diastolic Provider Name and Address Organization Details Last Updated DateTime 10/15/2022 73 /min 18 /min 98.3 [degF] 91/55 mm[Hg] ELIZABETH JACKSON NP [address] [facility], [address], [place], [address], [facility] 3 13:33:48 Date Recorded Body temperature Oxygen saturation Heart rate Systolic And Diastolic Provider Name and Address Organization Details Last Updated DateTime 10/19/2022 98.3 [degF] 94 % 73 /min 91/55 mm[Hg] Cecilia Tucker MD [address] [facility] [facility], [address], [place], [address] , [facility] 3 06:30:21 Date Recorded Body weight Heart rate Respiratory rate Body temperature Oxygen saturation Systolic And Diastolic Provider Name and Address Organization Details Last Updated DateTime 3 15764.7 2 g 73 /min 18 /min 98.3 [degF] 94 % 91/55 mm[Hg] Violette Newell NP [address] [facility] [facility], [address], [place], [address], [facility] 3 11:10:43 Date Recorded Body weight Heart rate Respiratory rate Body temperature Oxygen saturation Systolic And Diastolic Provider Name and Address Organization Details Last Updated DateTime 3 37106.7 2 g 73 /min 18 /min 98.3 [degF] 94 % 91/55 mm[Hg] Violette Newell, ARNOLD [address], [address], [place], [address], [facility] [employer] [facility] 3 12:59:44 Date Recorded Body weight Heart rate Respiratory rate Body temperature Oxygen saturation Systolic And Diastolic Provider Name and Address Organization Details Last Updated DateTime 3 58329.7 2 g 73 /min 18 /min 98.3 [degF] 94 % 91/55 mm[Hg] Violette Newell, ARNOLD [address], [address], [place], [address], [facility] [email or web address] [facility] 3 10:56:55 Social History Question Answer Notes LastModified by [employer] Details LastModified Time Tobacco Smoking Status Current Every Day Smoker Viridiana Miller brigid, [facility] [email or web address] [facility] 05/19/2017 10:55:27 Do You Have An Advance Directive? Yes [email or web address] Information not available 10/15/2022 How Many Years Have You Consumed Alcohol? 44 Information not available 05/19/2017 What Is Your Code Status? Full Code [email or web address] Information not available 10/15/2022 Which Illicit Or Recreational Drugs Have You Used? Marijuana Information not available 10/15/2022 How Many Days In The Past Year Have You Had A Heavy Drinking Consumption (4+ Female, 5+ Male)? 365 Drinks 1 Pint Of [place] And 2 Nips/day, Longest Period Of Sobriety 6 Mos Information not available 05/19/2017 Do You Have A Medical Power Of [employer] Supervisor? Yes Information not available 05/19/2017 What Was The Date Of Your Most Recent Tobacco Screening? 10/15/2022 [email or web address] Information not available 10/15/2022 How Much Tobacco Do You Smoke? 1 PPD Information not available 05/19/2017 How Many Years Have You Smoked Tobacco? 40 Information not available 05/19/2017 Sex: Unknown Functional Status Question Answer Note LastModified by Organizat ion Details LastModified Time Do you use any illicit or recreational drugs? Yes [email or web address] Information not available 10/15/2022 What is your level of alcohol consumption? Heavy Information not available 05/19/2017 Mental Status None recorded. Family History Nothing Reported Notes:N/C Medical History No medical history recorded. Immunizations Vaccine Type Date Status Note Provider Nam e and Address Organization Details Recorded Time COVID-19 vaccine, vector-nr, rS-Ad26, PF, 0.5 mL 2 completed [facility] 10/22/2022 16:48:27 Tdap 2 completed [facility] 10/22/2022 16:48:42 pneumococcal polysaccharide PPV23 1 completed [facility] 05/27/2023 13:19:59 influenza, unspecified formulation 3 completed [facility] 05/27/2023 13:21:04 influenza, unspecified formulation 4 completed [facility] 05/27/2023 13:21:19 SARS-COV-2 (COVID-19) vaccine, UNSPECIFIED 3 completed [facility] 05/27/2023 13:21:41 Past Encounters Encounter ID Performer Location Encounter Start Date Encounter Closed Date Diagnosis/Indication Diagnosis SNOMED-CT Code Diagnosis ICD10 Code Diagnosis IMO Codes Diagnosis Note [id number] [address] [place] [address] 05/19/2017 10:32:28 05/25/2017 14:07:44 Bilateral deep vein thrombosis of lower extremities 906990153 I82.493 See HPIs/p IVC filter Dec, s/p EKOS catheter thrombolys is 3/2Eliquis 10 mg BID until 05/22 then 5 mg BIDMonitor for increase in pain/edema PT/OT eval and treat Alcohol wi thdrawal delirium 8204674 F10.231 Hx of heavy alcohol use with DTs in hospitalRi speridone 0.25 mg TIDThiamin e 100 mg dailyFolic acid 1 mg dailyMonit or moodNEG consult prn Aspiration pneumonia 422 580742 J69.0 Augmentin to complete courseAdd probioticA spiration precaution sSLP eval and treat Urinary tr act infectious disease 78582289 N30.00 Complete antibiotic as aboveMonit or sxs Chronic ob structive pulmonary disease 53182709 J41.8 Duonebs prnSupplem ental O2 prnMonitor respirator y status Tobacco de pendence syndrome 31896459 F17.210 Nicotine patchEncou rage smoking cessation Peripheral nerve disease 942860696 G64 Secondary to ETOH abuseMonit or sxs Anemia 249267940 D64.89 Repeat and monitor CBC [id number] MD MARKUS Melchor [address] [place] [address] 05/24/2017 10:26:07 05/26/2017 12:52:00 Bilateral deep vein thrombosis of lower extremities 742296946 I82.493 see HPIEliquis 5 mg bidmonitor with restart of medication on dose decreasing from 10 mg bid Alcohol wi thdrawal delirium 8682575 F10.231 see HPIthiamin e 100 mg qdmonitor for sx Tinea cruris 470022129 B 35.6 nystatin powdermoni tor to resolution Peripheral nerve disease 825795240 G64 start neurontin 100 mg tidtitrate for effect Urinary tr act infectious disease 54828901 N10 complete abmonitor for sx Chronic ob structive pulmonary disease 42877111 J41.1 at baselineco ntin[place] [id number] [address] [place] [place] [address] 06/01/2017 10:32:02 06/10/2017 14:19:14 Bilateral deep vein thrombosis of lower extremities 688318036 I82.493 see HPIEliquis 5 mg bidF/u with PCP Alcohol wi thdrawal delirium 5058406 F10.231 see HPIthiamin e 100 mg qdd/c risperidal Home services in place with social work and psych consults Chiqui t motivated to remain sober Peripheral nerve disease 230772701 G64 Increase neurontin 200 mg tidf/u with PCP Urinary tr act infectious disease 67707375 N10 antibiotic course completeap pears resolved Chronic ob structive pulmonary disease 56080476 J41.1 at baselineco [place]tin[place] [id number] [address] 09/16/2017 12:30:46 09/28/2017 15:08:07 Chronic hepatitis 90122655 K70.10 PT/OT eval and treatfollo w LFTsencour age ETOH abstinence psych eval and treat for abstinence follow up with GI prn Thrombocyt openic disorder 917403293 D69.59 monitor labsPlts corrected currently from 70 to 203 Chronic ob structive pulmonary disease 73180954 J41.8 duoneb q 4 hrs prnmonitor respirator y status Peripheral nerve disease 110929045 G64 neurontin 300 mg q 8 hrswill change to 300 mg q 9 am and 2 pm and 600 mg q hsc/o foot pain increased at nightmonit or pain Bilateral deep vein thrombosis of lower extremities 079528779 I82.593 eliquis 2.5 mg bidIVC filter in placemonit or labs Alcohol wi thdrawal delirium 0748814 F10.231 folic acid 1 mg qdmultivit e qdthiamine qdmonitor for withdrawal ativan 0.5 mg q 4 hrs prn added Tobacco de pendence syndrome 46867554 F17.210 nicotine patch 21 mg/24 hr qdmonitor for withdrawal [id number] MD ASHLEY Melchor AT [address] [address] 09/18/2017 12:00:41 09/28/2017 15:44:02 Asthenia 50424227 R53.1 see HPIPT OT eval and treatmonit or lytes Chronic hepatitis 901874 07 K73.2 see HPIseconda ry to ETOHGI eval prn Alcohol dependence 84618 003 F10.288 extended discussion with patient concerning use of etoh and effect on health. when patient returned after SNF stay in 05/16 again began drinking 1 pint and 1 nip per daypatient states understand ing that continuing with prior drinking habits will result in Thrombocyt openic disorder 159130432 D69.59 repeat and monitor cbc Bilateral deep vein thrombosis of lower extremities 041266923 I82.493 see HPIEliquis 2.5 mg bidmonitor with restart of medication IVC filter in place Chronic ob structive pulmonary disease 28749965 J41.1 at baselinedu onebs in place [place] [id number] [address] [address] 09/20/2017 16:11:59 09/28/2017 15:48:42 Chronic hepatitis 16688171 K70.10 PT/OT eval and treatfollo w LFTs weekly and once he is outpt with pcpencoura ge ETOH abstinence follow up with GI prnwill get ortho BPs bid x 2 days Thrombocyt openic disorder 274261343 D69.59 monitor labs, improved Chronic ob structive pulmonary disease 58393751 J41.8 duoneb q 4 hrs prnmonitor respirator y statusenco urage pt to stop smoking Peripheral nerve disease 041622224 G64 neurontin 300 mg q 9 am and 2 pm and 600 mg q hsmonitor pain Bilateral deep vein thrombosis of lower extremities 272142110 I82.593 eliquis 2.5 mg bidIVC filter in placemonit or labs Alcohol wi thdrawal delirium 9041239 F10.231 folic acid 1 mg qdmultivit e qdthiamine qdativan 0.5 mg q 4 hrs prn Tobacco de pendence syndrome 80357404 F17.210 nicotine patch 21 mg/24 hr qd [id number] [address] AT [address] [address] 09/21/2017 15:09:20 09/28/2017 16:05:00 Alcohol dependence 53659836 F10.20 ok to dc home tomorrowst rongly encouraged abstinence /AA Chronic hepatitis 991775 07 K70.10 encourage ETOH abstinence follow up with GI prn and pcp Bilateral deep vein thrombosis of lower extremities 666513874 I82.593 eliquis 2.5 mg bidIVC filter in place Chronic ob structive pulmonary disease 46524595 J41.8 duoneb q 4 hrs prnencoura ge pt to stop smoking Left upper quadrant pain 099373856 R10.12 pt will f/u with PCP as out pt for further testing if needed [id number] [address] AT [address] [address] 10/02/2017 16:10:48 10/20/2017 12:10:03 Alcohol dependence 57644744 F10.20 see hpiPT OT for conditioni ng and mobilityst rongly encouraged abstinence Chronic ob structive pulmonary disease 38759380 J41.8 duoneb q 4 hrs prnencoura ge pt to stop smoking Anemia 942272684 D64.9 monitor cbc Peripheral nerve disease 006315077 G64 neurontin 300 mg q 9 am and 2 pm and 600 mg q hsmonitor pain Bilateral deep vein thrombosis of lower extremities 001698268 I82.593 resume eliquis 2.5 mg bidIVC filter in placedue to alcoholism he would not be a candidate for coumadin [id number] MD ROSMERY MelchorLEY AT [address] [address] 10/05/2017 15:13:51 10/20/2017 13:22:05 Asthenia 66688640 R53.1 see HPImultifa ctorial PT OT eval and treatmonit or lytes Alcohol dependence 62418 003 F10.288 Repeat extended discussion with patient concerning use of etoh and effect on health. patient states understand ing that continuing with prior drinking habits will result in Chronic hepatitis 403398 07 K73.2 see HPIseconda ry to ETOHGI eval prn Bilateral deep vein thrombosis of lower extremities 491245777 I82.493 see HPIEliquis 2.5 mg bidmonitor with restart of medication IVC filter in place Peripheral nerve disease 675316136 G64 increase gabapentin to 300 mg tidmonitor for effect [id number] [address] 10/07/2017 14:48:18 10/20/2017 14:00:14 Alcohol dependence 08864966 F10.288 encouraged to abstain from ETOHfollow up with PCP Chronic hepatitis 821255 07 K73.2 secondary to ETOHfollow up with PCP Bilateral deep vein thrombosis of lower extremities 348203121 I82.493 Eliquis 2.5 mg bidspoke with him at length about needing to contact PCP and pharmacy to get prior authorizat ion form for eliquisIVC filter in placefollo w up with PCP Peripheral nerve disease 860358854 G64 gabapentin to 300 mg tidtylenol as neededfoll ow up with PCP [id number] ELIZABETH JACKSON NP [address] [address] 10/15/2022 13:30:52 10/20/2022 10:25:28 Cellulitis of buttock 15345595 L03.317 Continue levaquin 500 mg daily x 3 daysAdd probiotic bid x 7 daysStill with inflammati on/indurat ion around woundTrend sx., VS, labsCBC, BMP q wednesday Alcohol dependence 67961 003 F10.288 s/p phenobarb protocol in hosp., no sx. of withdrawal Encourage abstinence Open wound of buttock 26 2704389 S31.829A With associated abscess and cellulitis Debrided 10/08Finish abx. as aboveCurre nt tx. moist kerlix and DCD daily and prnRefer to [facility] wound clinic for eval and tx. - pt. concerned about transporta tion - if too expensive can refer to Wound team hereMonito r wound, VS, labs for change Chronic ob structive pulmonary disease 03256691 J41.8 Combivent respimat 1 inh qid prnAlbuter ol MDI q4 hr prn - requesting to keep at bedside and self administer Continues to smoke Tobacco de pendence syndrome 18944509 F17.210 Continues to smoke hereEnc. abstinence Bilateral deep vein thrombosis of lower extremities 120793429 I82.493 eliquis 5 mg bids/p IVCmonitor [id number] Cecilia Tucker MD [address] [address] 10/19/2022 06:26:38 10/23/2022 13:52:00 Harmful pattern of use of alcohol 30345229 F10.10 drug abuse social worker for 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 for sobrietyth iamine 100 mg dailyfolic acid 1 mg dailyMVI dailywill monitor Open wound of buttock 26 1697094 S31.829A s/p I&Dantibio tics completedw ound care per surgery recommenda tionsfollo w up wound clinic Chronic ob structive pulmonary disease 34907524 J41.8 Combivent 18-103: 1 puff q6h prnalbuter ol HFA: 1 puff q4h prnwill monitor Asthenia 31671234 R53.1 PT/OTwill monitor and support s needed History of deep vein thrombosis 660838311 Z86.718 apixaban 5 mg bidwill monitor [id number] Violette Newell NP [address] [address] 10/22/2022 11:09:43 10/26/2022 10:58:25 Harmful pattern of use of alcohol 58845192 F10.10 drug abuse social worker for 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 for sobrietyno tremor noted, anxious at baselineth iamine 100 mg dailyfolic acid 1 mg dailyMVI dailywill monitor Open wound of buttock 26 7722934 S31.829A s/p I&D on 10/08/22IV and po antibiotic s completed for cellulitis wound care per surgery recommenda tionsfollo w up wound clinic and dressings dailymonit or cbc and labs weekly Chronic ob structive pulmonary disease 24691000 J41.8 Combivent 18-103: 1 puff q6h prnalbuter ol HFA: 1 puff q4h prnwill monitor Asthenia 64011850 R53.1 PT/OTwill monitor and support s needed History of deep vein thrombosis 134300312 Z86.718 apixaban 5 mg bids/p ivc filterwill monitor Alcohol dependence 80407 003 F10.288 s/p phenobarb protocol in hosp., no sx. of withdrawal Encourage abstinence Tobacco de pendence syndrome 15989542 F17.210 Continues to smoke hererefuse s nicotine patchEnc. abstinence [id number] Violette Newell NP [facility] [address] [address] 10/26/2022 12:59:02 10/28/2022 08:31:09 Open wound of buttock 279528785 S31.829A s/p I&D on 10/08/22IV and po antibiotic s completed for cellulitis wound care per surgery recommenda tionsfollo w up wound clinic and dressings dailymonit or cbc and labs weekly Harmful pa ttern of use of alcohol 75397771 F10.10 drug abuse social worker for 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 for sobrietyno tremor noted, anxious at baselineth iamine 100 mg dailyfolic acid 1 mg dailyMVI dailywill monitor Chronic ob structive pulmonary disease 85804399 J41.8 Combivent 18-103: 1 puff q6h prnalbuter ol HFA: 1 puff q4h prnwill monitor Asthenia 76609954 R53.1 PT/OTwill monitor and support s needed History of deep vein thrombosis 312529320 Z86.718 apixaban 5 mg bids/p ivc filterwill monitor Alcohol dependence 70598 003 F10.288 s/p phenobarb protocol in hosp., no sx. of withdrawal Encourage abstinence Tobacco de pendence syndrome 65664688 F17.210 Continues to smoke here now on scheduled breaks with staffrefus es nicotine patchEnc. abstinence Intertrigo 25507399 L30. 4 nystatin topically powder bid and prn x 14 daysmonito r Neuropathy 876719491 G62 .[address] De La Cruz this weekend09/30 she recommends 2% gel diclofenac topically 2 gram to bilateral feet bid, will agree todaymonit or for relief [id number] Violette Newell NP [address] [address] 10/27/2022 10:55:47 10/29/2022 09:47:39 Open wound of buttock 159621905 S31.829A s/p I&D on 10/08/22IV and po antibiotic s completed for cellulitis follow up wound clinic and dressings every 3rd day with stacy westfall to wound POWDER BLENDER herecurren t order to left buttock wound irrigiate with wound wash, pack with hydrofera blue-moist en with ns, squeeze excess out. cover wtih zetuvit plus silicone bordered dressing q 3 dayscont protein liquid or supplement s to add in wound healingmon itor outpt with pcp and vna Intertrigo 46454965 L30. 4 nystatin topically powder bid and prn until healedvna to assess for resolution monitor outpt Neuropathy 433048553 G62 .[address] De La Cruz this weekend2% gel diclofenac topically 2 gram to bilateral feet bidmonitor for relief outpt, pt/ ot to assess for safety, strengthen ing and balance Harmful pa ttern of use of alcohol 89655361 F10.10 drug abuse social worker for 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 for sobrietyno tremor noted, anxious at baselineth iamine 100 mg dailyfolic acid 1 mg dailyMVI dailywill monitor outpt with pcp Chronic ob structive pulmonary disease 58516330 J41.8 Combivent 18-103: 1 puff q6h prnalbuter ol HFA: 1 puff q4h prnmonitor outpt with pcp Asthenia 97987960 R53.1 improved herewill monitor and support s needed outptmonit or outpt, pt/ ot to assess for safety, strengthen ing and balance, offloading pressure to wound, and safety conditions at home History of deep vein thrombosis 201777786 Z86.718 apixaban 5 mg bids/p ivc filterwill monitor outpt Alcohol dependence 74100 003 F10.288 s/p phenobarb protocol in hosp., no sx. of withdrawal Encourage abstinence outpt and services as needed Tobacco de pendence syndrome 59318399 F17.210 Continues to smoke here now on [...] Ruiz Member ID Guarantor Name 10/14/2022 1 [facility] - HEALTH NET PLAN (MEDICAID HMO) [id number] Edgardo Zavala [id number] Edgardo Zavala 10/26/2022 1 [facility] - DOS ON OR AFTER 2022 - MEDICARE ADVANTAGE [place] (MEDICARE REPLACEMENT/ADV ANTAGE - PPO) Edgardo Zavala [id number] Edgardo Zavala Notes Date Note Type Note Provider Name and Address Organization Details Recorded Time 10/15/2022 text/html Edgardo is seen today for initial intake. He is a 62 yo male admitted to [facility] 10/14/22 from [facility] for continued care and rehab after a brief hosp. related to a buttock wound and cellulitis. He presented to [facility] 10/07 with several days of buttock pain [...] covered with DCD. Needs follow up with [facility] wound clinic, ? wound vac. Upon d/c abx. changed to levaquin x 3 more days.DVT - remained on eliquisTobacco use - nicoderm patchCOPD - stable PMH: ETOH abuse, anemia, BLE DVTs IVC filter 2017 and bilat. thrombolysis, chronic hepatitis, COPD, PVD, thrombocytopenia, tobacco use, UTIMOLST: full code ELIZABETH JACKSON NP [address], [address], [place], [address], [facility] [employer] 10/15/2022 14:49:09 10/19/2022 text/html This 62 year old man was admitted to [facility] on 10/14/22for rehab and continued care. 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 He was having several [...] - signed 10/15/22 Cecilia Tucker MD [address], [address], [place], [address], [facility] [employer] 10/19/2022 14:28:20 10/22/2022 text/html Patient is seen for an acute rounding visit today. 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 He was having several [...] - signed 10/15/22 Violette Newell NP [address], [address], [place], [address], [facility] [employer] 10/22/2022 11:32:05 10/26/2022 text/html Patient is seen [...] 62 year old man was admitted to [facility] on 10/14/22for rehab and continued care after presenting to the ER at [facility] on 10/07/22. He was having several [...] - signed 10/15/22 Violette Newell NP [address], [address], [place], [address], [facility] [employer] 10/26/2022 13:39:46 10/27/2022 text/html Patient is seen for a discharge summary visit today. Edgardo is a 62 year old man was admitted to [facility] on 10/14/22for rehab and continued care after presenting to the ER at [facility] on 10/07/22. He was having several [...] 3 days now according to the wound POWDER BLENDER. His groin is improving with the nystatin [...] - signed 10/15/22 Violette Newell, [address], [address], [place], [address], [facility] 10/28/2022 10:11:07
--- OUTSIDE RECORDS SUMMARY | 2025-01-28 21:46 | XMS_ITS | Clinical Summary ---
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 Other iron deficiency anemias 12/12/2022 Hypomagnesemia 12/12/2022 Other hypotension 12/12/2022 Difficulty in walking, not elsewhere classified 12/12/2022 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) Acute embolism and thrombosis of other specified veins 12/12/2022 Alcohol abuse with withdrawa l, uncomplicated ([facility] V24, [facility] V28) 12/12/2022 Chronic obstructive pulmonar y disease with (acute) exacerbation ([facility] V24, [facility] V28) 12/12/2022 Resolved Problems Problem Noted Date Diagnosed Date Resolved Date Acute hypoxemic respiratory failure ([facility] V24, [facility] V28) 03/17/2024 03/18/2024 Encounters Date Type Department Care Team Description 12/20/2024 5:55 PM EDT - 12/21/2024 2:58 PM EDT Hospital Encounter [facility] [address] [place] [id number] Rai Gonzalez MD Goebel, Mathew, MD Jones, Christopher, MD Rasul, Yar M, MD Mohani, Priya, MD Hypoxia (Primary Dx); ETOH abuse; Chest pain, unspecified type; Viral pneumonia; Acute hypoxic respiratory failure ([facility] V24, [facility] V28) Discharge Disposition: Left Against Medical Advice from Last 3 Months Surgical History Surgery Date Site/Laterality Comments IVC FILTER Medical History Medical History Date Comments COPD (chronic obstructive pulmonary disease) ([facility] V24, [facility] V28) Neuropathy Social History Tobacco Use Types [...] MOLECULAR STUDY Routine 12/21/2024 1:59 AM EDT [id number], RSV, FLU A AND B QUALITATIVE RT-PCR, [...] blood stool, guaiac (12/21/2024 11:46 AM EDT) [facility] Occult Blood, Stool #1 Positive( A) Negative 12/21/2024 12:28 PM EDT [facility] Stool Rectum structure / Unknown Non-blood Collection / Unknown 12/21/2024 11:46 AM EDT 12/21/2024 11:52 AM EDT Karolyn RABAGO LAB BODY FLUIDS AND STOOLS OR DERABLES Final Result [facility] [address] [place] [address], [place] [phone] * (ABNORMAL) Drug abuse screen 8a panel, urine (12/21/2024 11:46 AM EDT) [facility] Amphetamine Screen, Ur Negative Negative LAB CHEMISTRY METHOD 12:28 PM EDT [facility] Comment:Certain OTC medicati ons containing ephedrine, phenylephrine, pseudoephedrine and phenylpropanolamine can cause false positive results. Barbiturate Screen, Ur Positive(A ) Negative LAB CHEMISTRY METHOD 12:28 PM EDT [facility] Benzodiazepine Screen, Ur Negative Negative LAB CHEMISTRY METHOD 12:28 PM EDT [facility] Cocaine Screen, Ur Negative Negative LAB CHEMISTRY METHOD 12:28 PM EDT [facility] Opiate Screen, Ur Negative Negative LAB CHEMISTRY METHOD 12:28 PM EDT [facility] Cannabinoid (THC) Screen, Ur Negative Negative LAB CHEMISTRY METHOD 12:28 PM EDT [facility] Comment:Specimens from patie nts taking pantoprazole sodium (Protonix) have been shown to produce false positive results. Oxycodone Screen, Ur Negative Negative LAB CHEMISTRY METHOD 12:28 PM EDT [facility] Fentanyl, Ur Negative Negative LAB CHEMISTRY METHOD 12:28 PM T [facility] Urine Urine specimen obtained by clean catch procedure / Unknown Non-blood Collection / Unknown 12/21/2024 11:46 AM EDT 12/21/2024 11:52 AM EDT Narrative [facility] - 12/21/2024 12:28 PM [...] MD LAB URINE ORDERABLES Final Resul t [facility]) [facility] [address] [place] [address], * ECG 12 lead (12/21/2024 6:33 AM EDT) Only the most recent of2 resultswithin the time period is included. Ventricular Rate ECG 77 BPM GEMUSE Atrial Rate 77 BPM GEMUSE P-R Interval 116 ms GEMUSE QRS Duration 130 ms GEMUSE Q-T Interval 416 ms GEMUSE QTc 470 ms GEMUSE P Wave Schlater 35 degrees GEMUSE R Schlater -68 degrees GEMUSE T Schlater 31 degrees GEMUSE ECG Interpretation Normal sinus [...] resultswithin the time period is included. Pathologist [facility] WBC 5.7 4.8 - 10.8 K/mcL LAB HEMETOLOGY METHOD 12/21/2024 6:31 AM [facility] RBC 4.20(L) 4.50 - 5.50 M/mcL LAB HEMETOLOGY METHOD 12/21/2024 6:31 AM [facility] Hemoglobin 12.2(L) 13.5 - 17.5 g/dL LAB HEMETOLOGY METHOD 12/21/2024 6:31 AM [facility] Hematocrit 37.6(L) 42.0 - 54.0 % LAB HEMETOLOGY METHOD 12/21/2024 6:31 AM [facility] MCV 90.2 79.0 - 98.0 FL LAB HEMETOLOGY METHOD 12/21/2024 6:31 AM [facility] MCH 29.3 27.0 - 32.0 pcg LAB HEMETOLOGY METHOD 12/21/2024 6:31 AM [facility] MCHC 32.4 32.0 - 37.0 g/dL LAB HEMETOLOGY METHOD 12/21/2024 6:31 AM [facility] RDW 17.1(H) 11.0 - 15.0 % LAB HEMETOLOGY METHOD 12/21/2024 6:31 AM [facility] Platelets 142 130 - 400 K/mcL LAB HEMETOLOGY METHOD 12/21/2024 6:31 AM [facility] MPV 10.5 7.0 - 11.0 FL LAB HEMETOLOGY METHOD 12/21/2024 6:31 AM [facility] NRBC 0.0 <1.0 % LAB HEMETOLOGY METHOD 12/21/2024 6:31 AM [facility] NRBC Absolute 0.00 <0.10 K/mcL LAB HEMETOLOGY METHOD 12/21/2024 6:31 AM [facility] Neutrophils Relative 65.9 % LAB HEMETOLOGY METHOD 12/21/2024 6:31 AM [facility] Lymphocytes Relative 20.2 % LAB HEMETOLOGY METHOD 12/21/2024 6:31 AM [facility] Monocytes Relative 10.9 % LAB HEMETOLOGY METHOD 12/21/2024 6:31 AM [facility] Eosinophils Relative 2.1 % LAB HEMETOLOGY METHOD 12/21/2024 6:31 AM [facility] Basophils Relative 0.5 % LAB HEMETOLOGY METHOD 12/21/2024 6:31 AM [facility] Immature Granulocytes Relative 0.4 % LAB HEMETOLOGY METHOD 12/21/2024 6:31 AM [facility] Neutrophils Absolute 3.76 1.50 - 7.00 K/mcL LAB HEMETOLOGY METHOD 12/21/2024 6:31 AM EDT [facility] Lymphocytes Absolute 1.15 1.00 - 5.00 K/[facility] LAB HEMETOLOGY METHOD 12/21/2024 6:31 AM EDT [facility] Monocytes Absolute 0.62 0.20 - 1.00 K/[facility] LAB HEMETOLOGY METHOD 12/21/2024 6:31 AM EDT [facility] Eosinophils Absolute 0.12 0.00 - 0.50 K/[facility] LAB HEMETOLOGY METHOD 12/21/2024 6:31 AM EDT [facility] Basophils Absolute 0.03 0.00 - 0.20 K/[facility] LAB HEMETOLOGY METHOD 12/21/2024 6:31 AM EDT [facility] Immature Granulocytes Absolute 0.02 0.00 - 0.03 K/[facility] LAB HEMETOLOGY METHOD 12/21/2024 6:31 AM T [facility] Blood Venous blood specimen / Unknown Venipuncture / Unknown 12/21/2024 5:09 AM EDT 12/21/2024 5:59 AM EDT us Boom Nagel MD LAB BLOOD ORDERABLES Final Result [facility] [address] [place] [address], * Basic metabolic panel (12/21/2024 5:09 AM EDT) Sodium 135 133 - 145 mmol/L LAB CHEMISTRY METHOD 12/21/2024 7:41 AM EDT [facility] Potassium 4.0 3.5 - 5.5 mmol/L LAB CHEMISTRY METHOD 12/21/2024 7:41 AM EDT [facility] Chloride 98 96 - 110 mmol/L LAB CHEMISTRY METHOD 12/21/2024 7:41 AM EDT [facility] CO2 29 21 - 32 mmol/L LAB CHEMISTRY METHOD 12/21/2024 7:41 AM [facility] Anion Gap 8 3 - 11 LAB CHEMISTRY METHOD 12/21/2024 7:41 AM [facility] Glucose 94 70 - 100 mg/dL LAB CHEMISTRY METHOD 12/21/2024 7:41 AM [facility] BUN 15 5 - 25 mg/dL LAB CHEMISTRY METHOD 12/21/2024 7:41 AM [facility] Creatinine 0.72 0.70 - 1.30 mg/dL LAB CHEMISTRY METHOD 12/21/2024 7:41 AM [facility] eGFR 102 >=60 mL/min/1. 73m2 LAB CHEMISTRY METHOD 12/21/2024 7:41 AM [facility] Comment:Calculation based on the Chronic Kidney Disease Epidemiology Collaboration (CKD-EPI) equation refit without adjustment for race. BUN/Creatinine Ratio 20.8 LAB CHEMISTRY METHOD 12/21/2024 7:41 AM [facility] Calcium 8.6 8.5 - 10.5 mg/dL LAB CHEMISTRY METHOD 12/21/2024 7:41 AM [facility] Blood Venous blood specimen / Unknown Venipuncture / Unknown 12/21/2024 5:09 AM EDT 12/21/2024 5:59 AM EDT us Boom Nagel MD LAB BLOOD ORDERABLES Final Result [facility] [address] [place] [address], * Respiratory virus panel molecular study (12/21/2024 1:59 AM EDT) Adenovirus Detection by PCR Not Detected Not Detected LAB MICROBIOLOGY METHOD 12/21/2024 2:56 AM EDT [facility] Influenza A PCR Not Detected Not Detected LAB MICROBIOLOGY METHOD 12/21/2024 2:56 AM EDT [facility] Influenza B PCR Not Detected Not Detected LAB MICROBIOLOGY METHOD 12/21/2024 2:56 AM EDT [facility] Coronavirus 229E Not Detected Not Detected LAB MICROBIOLOGY METHOD 12/21/2024 2:56 AM EDT [facility] Coronavirus HKU1 Not Detected Not Detected LAB MICROBIOLOGY METHOD 12/21/2024 2:56 AM EDT [facility] Coronavirus OC43 Not Detected Not Detected LAB MICROBIOLOGY METHOD 12/21/2024 2:56 AM EDT [facility] Coronavirus NL63 Not Detected Not Detected LAB MICROBIOLOGY METHOD 12/21/2024 2:56 AM EDT [facility] Parainfluenza Virus 1 Not Detected Not Detected LAB MICROBIOLOGY METHOD 12/21/2024 2:56 AM EDT [facility] Parainfluenza Virus 2 Not Detected Not Detected LAB MICROBIOLOGY METHOD 12/21/2024 2:56 AM EDT [facility] Parainfluenza Virus 3 Not Detected Not Detected LAB MICROBIOLOGY METHOD 12/21/2024 2:56 AM EDT [facility] Parainfluenza Virus 4 Not Detected Not Detected LAB MICROBIOLOGY METHOD 12/21/2024 2:56 AM EDT [facility] RSV PCR Not Detected Not Detected LAB MICROBIOLOGY METHOD 12/21/2024 2:56 AM EDT [facility] Human Metapneumovirus A and B Not Detected Not Detected LAB MICROBIOLOGY METHOD 12/21/2024 2:56 AM EDT [facility] Rhinovirus/Entero virus Not Detected Not Detected LAB MICROBIOLOGY METHOD 12/21/2024 2:56 AM EDT [facility] Bordetella pertussis Not Detected Not Detected LAB MICROBIOLOGY METHOD 12/21/2024 2:56 AM EDT [facility] Bordetella parapertussis Not Detected Not Detected LAB MICROBIOLOGY METHOD 12/21/2024 2:56 AM EDT [facility] Mycoplasma pneumo by PCR Not Detected Not Detected LAB MICROBIOLOGY METHOD 12/21/2024 2:56 AM EDT [facility] Chlamydia pneumoniae Not Detected Not Detected LAB MICROBIOLOGY METHOD 12/21/2024 2:56 AM EDT [facility] SARS COV-2 Not Detected Not Detected LAB MICROBIOLOGY METHOD 12/21/2024 2:56 AM EDT [facility] Swab Structure of right anterior naris / Unknown Non-blood Collection / Unknown 12/21/2024 1:59 AM EDT 12/21/2024 2:[address] [facility] - 12/21/2024 2:56 AM EDT Testing was performed using the [employer] Respiratory Pathogen PCR Assay. All results must [...] MICROBIOLOGY - GENERAL OR DERABLES Final Result [facility] [address] [place] [address], * [id number], RSV, Influenza A and B qualitative RT-PCR (12/20/2024 10:53 PM EDT) Influenza A PCR Not Detected Not Detected LAB MICROBIOLOGY METHOD 12/21/2024 12:20 AM EDT [facility] Influenza B PCR Not Detected Not Detected LAB MICROBIOLOGY METHOD 12/21/2024 12:20 AM EDT [facility] RSV PCR Not Detected Not Detected LAB MICROBIOLOGY METHOD 12/21/2024 12:20 AM EDT [facility] SARS COV-2 Not Detected Not Detected LAB MICROBIOLOGY METHOD 12/21/2024 12:20 AM EDT [facility] Swab Both anterior nares / Unknown Non-blood Collection / Unknown 12/20/2024 10:53 PM EDT 12/20/2024 11:34 PM EDT Mario Quach MD LAB MICROBIOLOGY - GENERAL ORDAnh RABLES Final Result Performing Organization Address City/[facility]/ZIP Co de Phone Number [facility] [address] [place] [address], [place] [phone] * B-Type Natriuretic Peptide (BNP) (12/20/2024 9:27 PM EDT) BNP 20 <=100 pcg/mL LAB CHEMISTRY METHOD 12/20/2024 10:12 PM EDT [facility] Blood Venous blood specimen / Unknown Venipuncture / Unknown 12/20/2024 9:27 PM EDT 12/20/2024 9:38 PM EDT Rai Gonzalez MD LAB BLOOD ORDERABLES Final Resul t Performing Organization Address City/[facility]/ZIP Co de Phone Number [facility] [address] [place] [address], [place] [phone] * CT Angio Chest wo and/or w [...] angiography chest with contrast. 3D Postprocessing. Comparison: CT/AK/SR - CHEST ANGIOGRAPHY CT - 03/21/2023 08:08 [...] Llanos MD - 12/20/2024 INDICATION: hypoxia, hx nbaila DVTs CT angiography chest with contrast. 3D Postprocessing. Comparison: CT/AK/SR - CHEST ANGIOGRAPHY CT - 03/21/2023 08:08 [...] LAB CHEMISTRY METHOD 12/20/2024 9:33 PM EDT [facility] Blood Venous blood specimen / Unknown Venipuncture / Unknown 12/20/2024 8:56 PM EDT 12/20/2024 9:03 PM EDT Narrative [facility] - 12/20/2024 9:33 PM EDT High levels of biotin in samples may falsely decrease hsTroponin values. Use caution when interpreting hsTroponin results in patients taking biotin who exhibit renal impairment (eGFR <60) or in patients taking more than 20 mg/day of biotin. us Rai Gonzalez MD LAB BLOOD ORDERABLES Final Resul t [facility] [address] [place] [address], [place] [phone] * XR Chest 2 Views (12/20/2024 8:46 PM EDT) Anatomical Region Laterality Modality Body Radiographic Mirella ging 12/20/2024 10:4 8 PM EDT Impressions 12/20/2024 10:48 PM EDT Patchy bilateral infiltrates. This document has been electronically signed by: Temo Llanos MD on 12/20/2024 22:48:02 Narrative 12/20/2024 10:48 PM EDT INDICATION: chest pain 2 view chest x-ray Comparison: DX/AK/SR - XR CHEST 2 - 03/17/24 14:46 EST Findings: No consolidation or effusion. Normal size heart. No acute fracture. Patchy bilateral infiltrates. Procedure Note Temo Llanos MD - 12/20/2024 INDICATION: chest pain 2 view chest x-ray Comparison: DX/AK/SR - XR CHEST 2 - 03/17/24 14:46 [...] LAB COAGULATION METHOD 12/20/2024 8:24 PM EDT [facility] Blood Venous blood specimen / Unknown Venipuncture / Unknown 12/20/2024 7:52 PM EDT 12/20/2024 8:06 PM EDT us Rai Gonzalez MD LAB BLOOD ORDERABLES Final Resul t [facility] [address] [place] [address], [place] [phone] * Protime-INR (12/20/2024 7:52 PM EDT) Protime 13.1 10.6 - 13.9 sec LAB COAGULATION METHOD 12/20/2024 8:24 PM EDT [facility] INR 1.1 LAB COAGULATION METHOD 12/20/2024 8:24 PM EDT [facility] Blood Venous blood specimen / Unknown Venipuncture / Unknown 12/20/2024 7:52 PM EDT 12/20/2024 8:06 PM EDT us Rai Gonzalez MD LAB BLOOD ORDERABLES Final Resul t Performing Organization Address [facility]/ZIP Co de Phone Number [facility] [address] [place] [address], [place] [phone] * (ABNORMAL) Ethanol (12/20/2024 7:52 PM EDT) Ethanol Level 211(H) 0 - 10 mg/dL LAB CHEMISTRY METHOD 12/20/2024 8:37 PM EDT [facility] Blood Venous blood specimen / Unknown Venipuncture / Unknown 12/20/2024 7:52 PM EDT 12/20/2024 8:06 PM EDT us Rai Gonzalez MD LAB BLOOD ORDERABLES Final Resul t Performing Organization Address [facility] de Phone Number [facility] [address] [place] [address], [place] [phone] * (ABNORMAL) Comprehensive Metabolic Panel (CMP) (12/20/2024 7:52 PM EDT) Pathologist [facility] Sodium 141 133 - 145 mmol/L LAB CHEMISTRY METHOD 12/20/2024 8:37 PM [facility] Potassium 3.4(L) 3.5 - 5.5 mmol/L LAB CHEMISTRY METHOD 12/20/2024 8:[facility] Chloride 100 96 - 110 mmol/L LAB CHEMISTRY METHOD 12/20/2024 8:37 PM T [facility] CO2 31 21 - 32 mmol/L LAB CHEMISTRY METHOD 12/20/2024 8:[facility] Anion Gap 10 3 - 11 LAB CHEMISTRY METHOD 12/20/2024 8:37 PM [facility] Glucose 128(H) 70 - 100 mg/dL LAB CHEMISTRY METHOD 12/20/2024 8:37 [facility] BUN 13 5 - 25 mg/dL LAB CHEMISTRY METHOD 12/20/2024 8:37 PM [facility] Creatinine 0.81 0.70 - 1.30 mg/dL LAB CHEMISTRY METHOD 12/20/2024 8:37 PM [facility] eGFR 98 >=60 mL/min/1. 73m2 LAB CHEMISTRY METHOD 12/20/2024 8:37 PM [facility] Comment:Calculation based on the Chronic Kidney Disease Epidemiology Collaboration (CKD-EPI) equation refit without adjustment for race. BUN/Creatinine Ratio 16.0 LAB CHEMISTRY METHOD 12/20/2024 8:37 PM [facility] Calcium 8.8 8.5 - 10.5 mg/dL LAB CHEMISTRY METHOD 12/20/2024 8:37 PM [facility] AST (SGOT) 28 10 - 42 unit/L LAB CHEMISTRY METHOD 12/20/2024 8:37 PM [facility] ALT (SGPT) 21 10 - 60 unit/L LAB CHEMISTRY METHOD 12/20/2024 8:37 PM [facility] Alkaline Phosphatase 146(H) 42 - 121 unit/L LAB CHEMISTRY METHOD 12/20/2024 8:37 PM [facility] Total Protein 7.5 6.0 - 8.0 g/dL LAB CHEMISTRY METHOD 12/20/2024 8:37 PM [facility] Albumin 3.5 3.2 - 5.0 g/dL LAB CHEMISTRY METHOD 12/20/2024 8:37 PM [facility] Total Bilirubin 0.5 0.0 - 1.4 mg/dL LAB CHEMISTRY METHOD 12/20/2024 8:37 PM [facility] Blood Venous blood specimen / Unknown Venipuncture / Unknown 12/20/2024 7:52 PM EDT 12/20/2024 8:06 PM EDT us Rai Gonzalez MD LAB BLOOD ORDERABLES Final Resul t [facility]TI[facility] [place] [facility] [address] [place] [address], from Last 3 Months Insurance [facility] Member Subscriber Plan / Payer (Ef fective 2023-Present) Name:GIO ZEE Relation to Subscriber:Self Name:Gio Zee Payer ID:[id number] Group ID:[id number] Type:Not on file Address: [place] [address] [address] [id number] Advance Directives Documents on File Type Date Recorded Patient Framing Consultant Expl anation Health Care Decision (hx) 05/18/2017 [...] Agents on File Name Relationship Healthcare Agent [facility] Communication Peyton Ely Relative Health Care Agent Care Teams Chief Marketing Officer Relationship Specialty Start Date End Date Cristhian Delgado DO [address] [facility] [address] [place], [place] PCP - General Internal Medicine 02/01/24
--- OUTSIDE RECORDS SUMMARY | 2025-01-28 21:46 | XMS_ITS | Data Portability ---
Author Organization [facility], Telehealth Patient Home Address [address] [facility] [place] [address] Assessment Encounter Date Assessment Date Assessment LastModified by Organization Details LastModified Time 01/19/2024 01/19/2024 [id number] [place] [address] (COMMUNITY HEALTH EDUCATION COORDINATOR) MDM HIGH MUST MEET 2 OUT OF [...] COVERED Not available 01/19/2024 11:54:32 03/22/2024 03/22/2024 [address] [place] [address] (COMMUNITY HEALTH EDUCATION COORDINATOR) MDM MODERATE MUST MEET 2 OUT OF [...] COVERED Not available 03/22/2024 11:36:53 05/19/2024 05/19/2024 [address] [place] [address] (COMMUNITY HEALTH EDUCATION COORDINATOR) MDM HIGH MUST MEET 2 OUT OF [...] COVERED Not available 05/19/2024 15:01:00 06/07/2024 06/07/2024 [id number] [place] [address] (COMMUNITY HEALTH EDUCATION COORDINATOR) MDM MODERATE MUST MEET 2 OUT OF [...] COVERED Not available 06/07/2024 12:03:37 10/10/2024 10/10/2024 [id number] [place] [address] (COMMUNITY HEALTH EDUCATION COORDINATOR) MDM MODERATE MUST MEET 2 OUT OF [...] vitamin D, 25-hydroxy, total, serum 2024 025 [facility], [address] [place] [address], [address], 12:27:32 vitamin B12 + folate, serum or blood 2024 025 [facility], [address] [place] [address], [address], 12:30:46 CMP, serum or plasma 2024 025 [facility], [address] [place] [address], [address], 12:30:45 Referral orthopedic surgeon referral 2024 025 vamshi Simpson MD, [address] [facility] [address], [place], [address], 09:07:33 gastroenter ologist referral - routine colonoscopy 2024 025 aravind Parra MD, [address] [facility] [address], [place], [address], 09:35:00 Procedures None recorded. Surgeries None recorded. Imaging XR, hand, 3 or more view 2024 025 [facility] ([facility]), [address] [place], [address], 08:24:58 MRI, shoulder, w/o contrast 2024 025 [facility] ([facility]), [address] [place], [address], 5 08:26:15 XR, hand, 3 or more view 2023 024 [facility] ([facility]), [address] [place], [address], 4 08:29:38 Medication Orders triamcinolo ne acetonide 0.1 % topical cream 2024 025 [id number], [address] [place], [address], 5 16:46:57 azithromyci n 250 mg tablet 2024 025 [facility], [address] [place], [address], 5 12:12:19 azithromyci n 250 mg tablet 2024 025 [facility], [address] [place], [address], 5 14:59:57 triamcinolo ne acetonide 0.1 % topical cream 2024 025 [facility], [address] [place], [address], 5 15:02:20 triamcinolo ne acetonide 0.1 % topical cream 2023 024 [facility], [address] [place], [address], 4 11:51:47 Multivitami n 50 Plus tablet 2023 024 [id number], [address] [place], [address], 4 11:50:00 Patient TargetsNo targets recorded. Patient Instructions Encounter Date Encounter Id Patient Instructions Last Modified By Organization Details Last Modified Time 01/19/2024 [id number] chronic obstructive pulmonary disease (COPD): care instructions Not available 01/19/2024 11:49:57 learning about copd and how to prevent lung infections Not available 01/19/2024 11:49:57 pulse oximetry* Not available 01/19/2024 11:49:57 neuropathic pain : care instructions Not available 01/19/2024 11:49:57 03/22/2024 [id number] pulse oximetry* KAROLYN Not available 03/22/2024 11:49:54 05/19/2024 [id number] pulse oximetry* Not available 05/19/2024 14:59:35 dislocated shoulder: care instructions Not available 05/19/2024 14:59:35 shoulder dislocation: rehab exercises Not available 05/19/2024 14:59:35 neuropathic pain : care instructions Not available 05/19/2024 15:02:31 06/07/2024 [id number] pulse oximetry* KAROLYN Not available 06/07/2024 11:42:18 10/10/2024 [id number] pulse oximetry* Not available 10/10/2024 16:46:54 Reason for Referral Lehr Operator Referral for Screening for malignant neoplasm of colon routine colonoscopy Referring Physician: Cristhian Delgado, Internal Medicine, Encounter Date: 05/19/2024 Orthopedic Surgeon Referral for Dislocation of shoulder joint Referring Physician: Cristhian Delgado, Internal Medicine, Encounter Date: 06/07/2024 Results Created Date Observation Date Name Description Value Unit Range Abnormal Flag Note LastModifiedBy Organization Detail LastModifiedTime 01/19/20 24 01/19/2024 pulse oxime try* Result 92 Not Available [facility] [address] [facility] [address], [place], [address], 01/14/2024 11:32:45 03/22/19 25 03/22/2024 pulse oxime try* Result 95 Not Available [facility] [address] [facility] [address], [place], [address], 03/14/2024 11:54:52 05/20/19 25 05/19/2024 pulse oxime try* Result 91% Not Available [facility] [address] [facility] [address], [place], [address], 05/17/2024 16:20:55 06/08/19 25 06/07/2024 pulse oxime try* Result 93 Not Available [facility] [address] [facility] [address], [place], [address], 06/04/2024 08:15:20 10/11/1910/10/2024 pulse oxime try* Result 97 Not Available [facility] [address] [facility] [address], [place], [address], 10/10/2024 07:45:39 06/06/19 25 06/01/2024 MRI, shoul georgina, w/o contr ast No observ ation record ed. [facility] Mri Department [address] [place], [address], 06/05/2024 15:20:13 10/27/1910/26/2024 XR, shoul georgina No observ ation record ed. [address] (Medical Records) [address] [place], [address], 10/27/2024 09:20:23 10/27/1910/26/2024 CT, angio gram, chest + abdom en + pelvi s, w/ contr ast No observ ation record ed. [address] (Medical Records) [address] [place], [address], 10/27/2024 09:20:53 10/28/19 25 10/26/2024 CT, angio gram, chest , w/ contr ast No observ ation record ed. [email or web address] [facility] (Medical Records) [address] [place], [address], 10/27/2024 10:02:41 12/19/19 25 12/18/2024 imagi ng/di agnos tic resul t No observ ation record ed. [email or web address] [facility] (Medical Records) [address] [place], [address], 12/19/2024 08:50:10 01/05/20 25 01/04/2025 XR, chest , 2 view No observ ation record ed. [address] (Medical Records) [address] [facility], [address], 01/04/2025 16:40:25 01/25/20 25 01/24/2025 XR, humer us No observ ation record ed. [facility] (Medical Records) [address] [place], [address], 01/24/2025 16:09:25 01/25/20 25 01/24/2025 XR, shoul georgina No observ ation record ed. [facility] (Medical Records) [address] [place], [address], 01/24/2025 16:09:40 01/25/20 25 01/24/2025 XR, hand, 3 or more view No observ ation record ed. [address] (Medical Records) [address] [place], [address], 01/24/2025 15:51:21 01/25/20 25 01/24/2025 XR, hand, 3 or more view No observ ation record ed. [address] (Medical Records) [address] [place], [address], 01/24/2025 15:51:32 01/25/20 25 01/24/2025 CT, head + brain , w/o contr ast No observ ation record ed. [facility] (Medical Records) [address] [place], [address], 01/25/2025 09:00:43 01/25/2001/24/2025 CT, cervi octavio spine , w/o contr ast No observ ation record ed. [facility] (Medical Records) [address] [place], [address], 01/25/2025 09:01:14 01/25/2001/24/2025 CT, chest , w/ contr ast No observ ation record ed. [facility] (Medical Records) [address] [place], [address], 01/25/2025 09:01:41 Result Notes None recorded. Problems Name Problem SNOMED Code Status Onset Date Resolution Date Notes Provider Name and Address Organization Details Recorded Time Chronic obstructi ve pulmonary disease 33970674 Active 2018 [facility] 15:16:29 Neuropath y 437793337 Active 2018 [facility] 9 15:16:41 Gout 70344551 Active 2018 [facility] 9 15:16:48 History of gallstone s 046908384 Active 2018 Sheilatasia De Leon [facility] 9 15:17:04 History of deep vein thrombosi s 992182809 Active 2018 s/p IVC filter Jennifer Dalton, KAMLESH [address] [place], [address], [facility] 9 14:35:19 Harmful pattern of use of alcohol 81281955 Active 2018 Kimberly Coelho NP, S [address] [place] [address], [address], [facility] 9 16:45:28 Tobacco dependenc e syndrome 62537809 Active 2018 Kimberly Coelho NP, S [address] [place] [address], [address], [facility] 9 16:13:47 Tinea corporis 26203489 Active 2023 Cristhian Delgado DO [address] [place] [address], [address], [facility] 4 12:10:21 Insomnia 357950140 Active 2023 Cristhian Delgado DO [address] [place] [address], [address], [facility] 4 12:17:44 Secondary periphera l neuropath y 738880 Active 2023 Cristhian Delgado DO [address] [place] [address], [address], [facility] 4 22:16:11 Acute exacerbat ion of chronic obstructi ve pulmonary disease 468359250 Active 2023 HIMA HUERTA [address] [place] [address], [address], [facility] 4 15:05:32 Generaliz ed rash 545083039 Active 2023 HIMA HUERTA [address] [place] [address], [address], [facility] 4 10:59:16 Depressiv e disorder 51531909 Active 2023 HIMA HUERTA [address] [place] [address], [address], [facility] 4 10:26:22 Eczema 53192625 Active 2023 Cristhian Delgado DO [address] [place] [address], [address], [facility] 4 11:50:30 Pain of bilateral hands 35073764014 484672 Active 2023 Cristhian Delgado DO [address] [place] [address], [address], [facility] 4 11:52:35 Pruritic rash 79780305 Active 2023 Cristhian DhaliwalElizabeth Delgado, DO [address] [place] [address], [address], [facility] 4 21:26:20 COVID-19 130238147 Active 2024 Cristhian Hernandez Danny, DO [address] [place] [address], [address], [facility] 5 11:37:01 Nummular eczema 09789609 Active 2024 Cristhian Mary Delgado, [address], [address], [facility] 5 14:51:23 Dislocati on of shoulder joint 538809342 Active 2024 Cristhian Delgado [address], [address], [facility] 5 14:52:22 Dislocati on of shoulder joint 386780470 Active 2024 Cristhian Delgado, [address], [address], [facility] 5 14:52:26 Bilateral pain of joint of hands 92076455097 993676 Active 2024 Cristhian Delgado [address], [address], [facility] 5 14:53:41 Eczema of lower leg 296600328 Active 2024 Cristhian Delgado [address], [address], [facility] 5 16:55:51 Problem Notes None recorded. Medical Equipment None Reported. Allergies Allergen ID Allergen Name Allergen Category Reaction Reaction Severity Criticality Documentation Date Start Date Code Code System Note Provider Name and Address Organization Details Recorded Time 2905 peanut allergeni c extract food,medi cation Not available Not available Not available 05/11/2018 48220 8 RxNorm [facility] 9 15:14:37 8332 Lyrica medicatio n rash Not available Not available 11/15/20232023 93182 1 RxNorm Landry Dunbar brigid [facility] 4 10:28:00 8490 raspberry extract food,medi cation Not available Not available Not available 12/29/2023 88692 69 RxNorm HIMA HUERTA [address] [place], [address], [facility] 4 10:47:33 9901 pregabali n medicatio n Not available Not available Not available 01/19/20252024 46179 2 RxNorm Not Available karolyn - External [...] Asprin Ec Low Dose 81 mg tablet,nadya diamondd release Take 1 tablet every day by [...] Not Available Not Available No t Available Daily-Chapinctio (with folic acid) 400 mcg tablet TAKE 1 TABLET BY MOUTH EVERY DAY active Not Available Not Available No t Available Vitals Date Recorded Body height Body mass index (BMI) Body weight Heart rate Oxygen saturation Systolic And Diastolic Provider Name and Address Organization Details Last Updated DateTime 5 171.45 cm 23.6 kg/m2 89703.6 3 g 71 /min 95 % 106/68 mm[Hg] Cristhian Delgado, DO [address] [place], [address] [facility] 5 11:20:11 Date Recorded Body height Body mass index (BMI) Body weight Heart rate Oxygen saturation Systolic And Diastolic Provider Name and Address Organization Details Last Updated DateTime 5 171.45 cm 24.4 kg/m2 98181.6 7 g 81 /min 91 % 130/80 mm[Hg] Daphne Connor [facility] 5 14:36:10 Date Recorded Body height Heart rate Oxygen saturation Systolic And Diastolic Provider Name and Address Organization Details Last Updated DateTime 06/07/2024 171.45 cm 77 /min 93 % 129/60 mm[Hg] Trina Alcantar [facility] 06/07/2024 11:39:05 Date Recorded Body height Body mass index (BMI) Body weight Oxygen saturation Heart rate Systolic And Diastolic Provider Name and Address Organization Details Last Updated DateTime 5 171.45 cm 23.8 kg/m2 80110.2 2 g 97 % 78 /min 112/64 mm[Hg] SAM AWAD [facility] 5 16:15:29 Date Recorded Body height Body mass index (BMI) Body weight Heart rate Oxygen saturation Systolic And Diastolic Provider Name and Address Organization Details Last Updated DateTime 4 171.45 cm 23.6 kg/m2 93551.6 3 g 73 /min 92 % 110/80 mm[Hg] Trina Alcantar [facility] 4 11:13:34 Social History Question Answer Notes LastModified by Organizat ion Details LastModified Time Tobacco Smoking Status Current Every Day [facility] 05/11/2018 15:18:01 What Was The Date Of Your Most Recent Tobacco Screening? 06/07/2024 [email or web address] Information not available 06/07/2024 Sex: Unknown Functional [...] 0.5 mL 03/27/19 22 completed Not Available [facility] 08/15/2022 22:39:22 Tdap 08/04/19 22 completed Not Available [facility] 08/15/2022 22:39:22 pneumococcal polysaccharide PPV23 07/18/19 21 completed Not Available [facility] 08/15/2022 22:39:22 influenza, unspecified formulation 04/23/19 17 completed Not Available [facility] 08/15/2022 22:39:22 zoster recombinant 10/03/19 25 completed Cristhian Delgado DO [address] [place] [address], [address], [facility] 10/10/2024 16:45:43 Past Encounters Encounter ID Performer Location Encounter Start Date Encounter Closed Date Diagnosis/Indication Diagnosis SNOMED-CT Code Diagnosis ICD10 Code Diagnosis IMO Codes Diagnosis Note Cristhian Delgado DO [facility] [address] [facility] [address] 07/11/2018 15:02:42 07/11/2018 16:21:04 Alcohol dependence 23301689 F10.20 written scripts vivitrol 380 mg IM Q 4 weeks ( pharmacy not located in system ) Chronic ob structive pulmonary disease 57697107 J44.9 Harmful pa ttern of use of alcohol 94056988 F10.10 long discussion to avoid isolation Use senior center, library, social center to seek psychiatri st-pt prefers to do on own look for SMART meetings stay in contact w/positive people in life get outside and walk History of deep vein thrombosis 834644530 Z86.718 on Eliquis Neuropathy 770939746 G62 .9 gabapentin written & faxed 300 mg BID [id number] Cristhian Delgado DO [facility] [address] [facility] [address] 09/28/2018 13:25:38 09/28/2018 14:06:07 Alcohol dependence 69397661 F10.20 currently in rehab Secondary peripheral neuropathy 484930 G63 2/2 etoh History of deep vein thrombosis 683698962 Z86.718 Tobacco de pendence syndrome 99236209 F17.200 [id number] Cristhian Delgado [facility] [address] [place] [address] 10/26/2018 14:05:49 10/26/2018 16:00:43 History of deep vein thrombosis 058782057 Z86.718 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 has IVC filter Tobacco de pendence syndrome 24006113 F17.200 no plans to quit Neuropathy 511036126 G62 .9 gabapentin not helpful has low vitamin d will supplement then f.u Harmful pa ttern of use of alcohol 26871045 F10.10 currently sober x 9 days Acute conjunctivitis 537 32168 H10.31 current abx failure consider opth if second round not helpful Vitamin D deficiency 347 03885 E55.9 Onychomyco sis of toenails 385317309 B35.1 Screening procedure 2012 5006 Z13.9 Steatotic liver disease 387551820 K76.0 [id number] Cristhian Delgado [facility] [address] [place] [address] 01/03/2019 10:26:01 01/03/2019 11:03:12 Secondary peripheral neuropathy 244956 G63 2/2 etoh Physical deconditioning 7820445385 9102 R68.89 Depressive disorder 3548 9007 F32.9 [id number] Cristhian Delgado [facility] [address] [place] [address] 02/07/2019 13:17:51 02/07/2019 13:59:18 Acute folliculitis 655891167 L73.9 Secondary peripheral neuropathy 746293 G63 2/2 etoh no difference in neuropathy [...] who doesn't visit Vitamin D deficiency 347 45201 E55.9 never received the letter regarding this lab result will send in vitamin d now also take vitamin d3 2000 units after completing this will recheck level in 12 weeks Tobacco user 164675392 Z 72.0 [id number] Cristhian Delgado [facility] [address] [facility], [address] [facility] [place] [address] 04/28/2019 15:03:46 04/28/2019 16:25:32 Chronic obstructive pulmonary disease 88762416 J44.9 acute exacerbati on of copd Secondary peripheral neuropathy 705372 G63 2/ etoh no difference in neuropathy , will [...] who doesn't visit Vitamin D deficiency 347 92793 E55.9 completed the macrodose of vitamin d needs to start the vitamin d r Tobacco user 191013504 Z 72.0 Harmful pa ttern of use of alcohol 26971062 F10.10 currently sober again Gout 67962506 M10.9 History of deep vein thrombosis 504503471 Z86.718 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 has IVC filter Neuropathy 247556562 G62 .9 as above Alcohol dependence 32305 003 F10.20 sober Atopic dermatitis 612536 01 L20.9 Acute exac erbation of chronic obstructive pulmonary disease 322942656 J44.1 mitesh lamb as above for rash + [place] [id number] Cristhian Delgado [facility] [address] [facility] [address] [place] [address] 10/25/2019 15:02:33 10/25/2019 15:22:49 Harmful pattern of use of alcohol 28939173 F10.10 still drinking about 1 pint of hard liquor a day no plans on stopping or seeking help with this addiction advised to work on cutting back and drink water instead patient does not seem interested on doing this despite risks to his health will have patient call if he has another convulsio n Chronic ob structive pulmonary disease 80079965 J44.9 breathing is the same per patient not any worse, cough is the same as well Tobacco de pendence syndrome 48777887 F17.200 still smoking not ready to quit, no plans on quitting SARS-CoV-2 632415533 U07 .1 patient currently has a positive diagnosis of COVID told him to monitor symptoms and if he gets very sick again to go back to the hospital [id number] Cristhian Delgado [facility] [address] [facility], [place] [address] 01/03/2020 15:04:00 01/03/2020 16:04:29 Harmful pattern of use of alcohol 53829705 F10.10 still drinking about 2 pint of hard liquor a day did discuss with patient about setting up with a rehab center and working with his advisor patient was open to this idea and gave permission for me to speak with his advisor Alcohol withdrawal 61921 0000 F10.939 patient states every time he stops drinking he gets violently ill so him refuses to stop drinking at this point [id number] Cristhian Delgado [facility] [address] [facility] [place] [address] 03/06/2020 09:10:45 03/06/2020 15:51:21 Harmful pattern of use of alcohol 10202177 F10.10 still drinking about 2 pint of hard liquor a day did discuss with patient about setting up with a rehab center and working with his advisor patient unwilling to stop drinking because of the withdrawal afterwards did discuss in detail with pt that the drinking is contributi ng to his neurologic al issues Chronic ob structive pulmonary disease 26712144 J44.9 breathing is the same per patient not any worse, cough is the same as well does need refill of his inhalers Fall W19.XXXS patient reports he fell due to balance issues, weakness in nabila legs most likely related to his drinking will set him up with Dr. Aldana again for eval Injury of head 30029009 S09.90XS no LOC and CT at hospital showed no acute changes MRI done in april, will not need another MRI History of deep vein thrombosis 126202422 Z86.718 was on eliquis but stopped to do hx of brain bleed no ride to the hospital so he is unwilling to do a fu US to assess chronic DVT due to brain bleed because of blood thinner, he should not be on eliquis at this time but should have US to assess [id number] Cristhian Delgado [facility] [address] [facility] [address] 04/19/2020 08:38:20 04/22/2020 15:44:19 [id number] Cristhian Delgado [facility] [address] [facility] [address] 06/12/2020 14:07:08 06/12/2020 15:18:50 Harmful pattern of use of alcohol 11197807 F10.10 still drinking about 2 pint of hard liquor a day did discuss with patient about setting up with a rehab center and working with his advisor patient unwilling to stop drinking because of the withdrawal afterwards did discuss in detail with pt that the drinking is contributi ng to his neurologic al issues Chronic ob structive pulmonary disease 28217730 J44.9 breathing is the same per patient not any worse, cough is the same as well Neuropathy 319609840 G62 .9 will try on the 800 mg qd as patient said this was effective will slowly tirtate up the medication dosage [id number] Cristhian Delgado [facility] [address] [facility] [address] 04/11/2021 14:50:50 04/11/2021 16:21:09 Chronic obstructive pulmonary disease 43752159 J41.0 breathing is the same per patient not any worse, cough is the same as well Alcohol withdrawal 81400 0000 F10.931 has not had a drink in 1 mo but does plan to drink again though per patient in moderation recommend ed to not drink at all Secondary peripheral neuropathy 086515 G63 restarted gabapentin Harmful pa ttern of use of alcohol 72142214 F10.121 monitoring progress with drinking Pain of le ft shoulder joint 6687465902 0827555 M25.512 improving with at home PT [id number] Cristhian Delgado [facility] [address] [facility] [place] [address] 09/17/2023 10:23:16 09/17/2023 11:04:03 Depression screening 432363373 Z13.31 SCREENING NEGATIVE Harmful pa ttern of use of alcohol 38335366 F10.121 on naloxone campral buspar zoloft Gout 13691203 M10.9 quiet now Neuropathy 325802689 G62 .9 had been on gabapentin Chronic ob structive pulmonary disease 98202276 J41.0 he is stable on the inhalers [id number] Cristhian Delgado [facility] [address] [place] [address] 10/18/2023 11:40:03 10/18/2023 12:58:27 Chronic obstructive pulmonary disease 97685076 J41.0 he is stable on the inhalers Harmful pa ttern of use of alcohol 08394259 F10.121 on naloxone campral buspar zoloft Tinea corporis 13156801 B35.4 between legs History of deep vein thrombosis [id number] Z86.718 recurrent Insomnia [id number] G47.0 0 [id number] Cristhian Delgado [facility] [address] [place] [address] 11/30/2023 10:27:17 11/30/2023 15:30:22 Acute exacerbation of chronic obstructive pulmonary disease [id number] J44.1 start on pred and z radha Chronic ob structive pulmonary disease 79585341 J41.0 needs refiil [id number] Cristhian Delgado [facility] [address] [place] [address] 12/29/2023 10:02:26 12/29/2023 15:40:20 Pre-surgery evaluation [id number] Z01.818 The patient was seen in the office today for pre-op evaluation . All medical conditions on patient's problem list were addressed and are currently stable, no interventi on needed at this time. Based on history and physical performed, the patient is cleared for surgery. Chronic ob structive pulmonary disease 66416462 J41.0 mild exacerbati oncan start prednisone taper after surgery [id number] Cristhian Delgado [facility] [address] [facility] [place] [address] 01/19/2024 10:45:59 01/19/2024 11:55:43 Acute exacerbation of chronic obstructive pulmonary disease 839925834 J44.1 seems stable now now acute changess Chronic ob structive pulmonary disease 17314628 J41.0 he is stable on the inhalers Neuropathy 425232259 G62 .9 had been on gabapentin Eczema 42468479 L30.9 Pain of bi lateral hands [id number] 5108832 M79.642 M79.641 [id number] Cristhian Delgado [facility] [address] [facility] [address] [place] [address] 01/17/2024 09:44:31 01/17/2024 11:46:28 Generalized rash [id number] R21 start on combinatio n treat of pred and anti-funga lhas a f/u on 01/18 with MB in officereco mmended him evaluate at that timeskin culture was negative, no staph infection [id number] Cristhian Delgado [facility] [address] [facility] [address] [place] [employer] [place] [address] 03/22/2024 11:00:25 03/22/2024 11:45:12 Chronic obstructive pulmonary disease 23793097 J41.0 he is stable on the inhalers COVID-19 714734881 U07.1 on medrol and azith getting better Acute exac erbation of chronic obstructive pulmonary disease 780883496 J44.1 seems stable now now acute changesdoi ng bettergive n spacer [id number] Cristhian Delgado [facility] [address] [facility] [address] [place] [employer] [place] [address] 05/19/2024 14:12:21 05/19/2024 15:20:28 Chronic obstructive pulmonary disease 19422583 J41.0 he is stable on the inhalers Nummular eczema 65427422 L30.0 Dislocatio n of shoulder joint 291588625 S43.006D Bilateral pain of joint of hands [id number] 6707550 M25.541 M25.542 Screening for malignant neoplasm of colon 742898734 Z12.11 Chronic bronchitis 87359 004 J42 Neuropathy 221010447 G62 .9 had been on gabapentin [id number] Cristhian Delgado [facility] [address] [place] [address] 06/07/2024 11:29:13 06/07/2024 12:15:01 Chronic obstructive pulmonary disease 13539535 J41.0 he is stable on the inhalers Dislocatio n of shoulder joint 609543501 S43.006D Nummular eczema 57801861 L30.0 Depression screening 171 973668 Z13.31 SCREENING NEGATIVE Bilateral pain of joint of hands 6711399246 2574196 M25.541 M25.542 Acute exac erbation of chronic obstructive pulmonary disease 997178015 J44.1 seems stable now now acute changesdoi ng bettergive n spacer [id number] Cristhian Delgado [facility] [address] [facility] [address] 10/10/2024 15:56:56 10/11/2024 10:30:30 Depression screening 170467984 Z13.31 SCREENING NEGATIVE Harmful pa ttern of use of alcohol 00934166 F10.121 on naloxone campral buspar zoloft Chronic ob structive pulmonary disease 55240096 J41.0 he is stable on the inhalers Eczema of lower leg 7623 43322 L30.9 [id number] will use cream Secondary peripheral neuropathy 101733 G62.89 will cont gabapentin but consider change to duloxetine Health Concerns Section Related Observation LastModified by Organization Detai ls LastModified Time None Recorded Concern Status LastModified by Organization Details LastModified Time None Recorded Advance Directives Directive None Recorded Payers Insurance Date Sequence Insurance Name Policy Number Policy Ruiz Covered Member ID Ruiz Member ID Guarantor Name 05/19/2024 1 [facility] - DOS PRIOR TO 2022 - DUAL ELIGIBLE (MEDICARE REPLACEMENT/ADV ANTAGE - HMO) Edgardo Zavala [id number] Edgardo Zavala 05/19/2024 1 MEDICARE B-[place]: [facility] Edgardo Zavala [id number] Edgardo Zavala 01/16/2025 1 [facility] - DOS ON OR AFTER 2022 - MEDICARE [place]VANTAGE [place]PLAC[place]/ADV ANTAGE - PPO) Edgardo Zavala [id number] Edgardo Zavala 05/19/2024 1 [place] PRIOR [place] 20[place] - [facility] (MEDICAID) Edgardo Zavala [id number] Edgardo Zavala Notes Date Note Type Note Provider Name a nd Address Organization Details Recorded Time 4 text/html ROS as noted in the HPI here for rechkrelates that had a rsh for mult weeks creams not helpfulstill smokeshaving a prob with the rash not going away Cristhian Delgado DO [address] [place], [address], [facility] 01/19/2024 11:54:47 5 text/html ROS as noted in the HPI here for rechk of his lungs since having covid was seen twice in ER and actually signed out AMA on second visit was told to stay due to lower O2 sat but went hometoday O2 sat 95% Cristhian Delgado DO [address] [place], [address], [facility] 03/22/2024 11:38:17 5 text/html ROS as noted in the HPI hwere for rechk right shoulder is pretty bad as of late since the dislocation episode back in januaryrelates that he has also had a problem with his short term memoryhas noticed for several monthsals o the neuropathy has been worse Cristhian Delgado DO [address] [place], [address], [facility] 05/19/2024 15:07:19 5 text/html [...] his motorcycle again Cristhian Delgado DO [address] [place], [address], [facility] 06/07/2024 12:12:26 5 text/html [...] his motorcycle again Cristhian Delgado DO [address] [place], [address], [facility] 10/10/2024 16:56:27
--- NOTE | 2025-01-28 22:03 | PC.NURSE ---
pt BIBA from home, c/o of increased ETOH use, no SI/HI, appears to be agitated/restless, sitter at the bedside for safety, pending provider assessment
[2025-01-28 22:41] LABS: MANUAL DIFF FLAG NO
[2025-01-28 22:48] LABS: Hematocrit 35.3 % (42.0-52.0); Hemoglobin 12.0 g/dl (14.0-18.0); Imm Gran Abs Auto 0.02 X10*3/uL (0.00-0.03); Imm Gran Pct Auto 0.5 % (0.0-0.4); Lymphocytes Absolute Auto 1.6 X10*3/uL (1.2-4.9); Mean Corpuscular HGB Conc 34.0 g/dl (31.0-36.0); Mean Corpuscular Hemoglobin 31.4 pg (27.0-33.0); Mean Corpuscular Volume 92.4 fL (80.0-98.0); NRBC Abs Auto 0.000 X10*3/uL (0.0-0.012); NRBC Pct Auto 0.0 /100WBC (0.0-0.2); Platelet Count 342 X10*3/uL (160-400); Red Blood Count 3.82 X10*6/uL (4.60-5.80); White Blood Count 3.9 X10*3/uL (4.8-10.8)
[2025-01-28 22:57] LABS: Alanine Aminotransferase 58 U/L (0-40); Albumin Level 4.0 g/dL (3.5-5.0); Alkaline Phosphatase 171 U/L (39-117); Anion Gap 14 (12-20); Aspartate Amino Transferase 59 U/L (5-37); Blood Urea Nitrogen 9 mg/dL (9-16); Calcium 8.6 mg/dL (8.4-10.2); Carbon Dioxide 27 mmol/L (22-29); Chloride 106 mmol/L (96-108); Creatinine Clr Calc Pharmacy 103.3; Estimated Glomerular Filt Rate > 60; Potassium 4.0 mmol/L (3.3-5.1); Sodium 143 mmol/L (135-145); Total Protein 7.3 g/dL (6.5-8.0)
[2025-01-28 22:58] LABS: Acetaminophen LAB < 3 mcg/mL (<30); Salicylate < 5.0 mg/dL (15-30)
[2025-01-29] VITALS: RESP 18
--- NOTE | 2025-01-29 00:33 | ED.ALCOHOL ---
HPI - Alcohol General Chief Complaint: ETOH/Substance Use Stated Complaint: excessive alcohol consumption Time Seen by Provider: 01/28/25 21:43 History of Present Illness HPI narrative: Patient 64 years old has been drinking alcohol. Positive some nausea. Hungry. No vomiting. Patient states that he has been sober for year. Last drink was this morning. Patient denies any focal weakness. Related Data Home Medications ?Medication ?Instructions ?Recorded ?Confirmed apixaban 5 mg tablet (Eliquis) 5 mg PO BID 08/29/22 01/24/25 albuterol sulfate 90 mcg/actuation 2 puff inhalation Q4H PRN 01/17/25 01/17/25 aerosol inhaler Shortness Of Breath buspirone 7.5 mg tablet 7.5 mg PO TID 01/17/25 01/17/25 hydroxyzine pamoate 50 mg capsule 50 mg PO BID 01/17/25 01/24/25 melatonin 5 mg tablet 5 - 10 mg PO BEDTIME PRN Sleep 01/17/25 01/17/25 mirtazapine 15 mg tablet 15 mg PO BEDTIME 01/17/25 01/17/25 prazosin 1 mg capsule 1 mg PO BEDTIME 01/17/25 01/17/25 sertraline 100 mg tablet 200 mg PO DAILY 01/17/25 01/17/25 Previous Rx's ?Medication ?Instructions ?Recorded fluticasone fur. 100 mcg-umeclid 1 inh inhalation RDAILY 30 days #1 01/22/25 62.5 mcg-vilant 25 mcg ea inhalat.powder (Trelegy Ellipta) folic acid 1 mg tablet 1 mg PO DAILY 30 days #30 tabs 01/22/25 naltrexone 50 mg tablet 50 mg PO DAILY 30 days #30 tabs 01/22/25 nicotine 7 mg/24 hr daily 7 mg transdermal DAILY 30 days #1 01/22/25 transdermal patch ea thiamine mononitrate (vit B1) 100 100 mg PO DAILY 30 days #30 tabs 01/22/25 mg tablet acetaminophen 500 mg tablet 1,000 mg (2 x 500 mg) PO Q6H PRN 01/25/25 pain #30 tabs lidocaine 5 % topical patch 1 patch topical DAILY #15 ea 01/25/25 Allergies Allergy/AdvReac Type Severity Reaction Status Date / Time Peanut Butter Allergy Facial Verified 01/28/25 21:31 Swelling raspberry Allergy Facial Verified 01/28/25 21:31 Swelling Review of Systems Review of Systems: No chest pain or diaphoresis Yes all other systems are reviewed and are negative [facility] Past Medical History Attestation statement: The following information was validated with the patient. Medical History Alcohol withdrawal Alcohol dependence Presence of IVC filter Acute and chronic respiratory failure with hypoxia COPD (chronic obstructive pulmonary disease) Alcohol use disorder, severe, dependence Tobacco abuse Subdural hematoma DVT (deep venous thrombosis) COPD (chronic obstructive pulmonary disease) Asthma Neuropathy Alcohol abuse Social History Social History Household Members: None Housing: House Do you presently have visiting nurse or other home services: No Alcohol intake: current Alcohol intake frequency: 3 or more drinks per day Alcohol type: hard liquor Comment: pt refuses high fall risk interventions Patient Tobacco Use Status: Current everyday Tobacco user Tobacco use type: Cigarette Cigarette Packs Per Day: 1 Cigarettes Per Day: 20.0 Smoked in Last 30 Days: Yes e-Cigarette/Vaping Use: Never Used Second Hand Smoke Exposure: No Use of substances other than those prescribed or required for medical reasons: Yes Substance Use Type: Marijuana Substance Use Frequency: Occasionally Last Used Substance: Weeks (ago) Advance Directives: Yes Advance Directives on File: Yes Advance Directives Date on File: 03/05/22 Do you have a plan to hurt others: No Plan service: No Current occupational status: disabled Physical Exam ED Exam Exam: Appearance: Alert. Oriented X3. No acute distress. Eyes: Pupils equal, round and reactive to light. ENT: Pharynx normal. Neck: Normal inspection. Neck supple. No lymph nodes noted. No crepitus CVS: Normal heart rate and rhythm. Pulses normal. Normal S1 and S2 Respiratory: No respiratory distress. Breath sounds normal. No Wheezing. No rales Abdomen: Soft and nontender. No rigidity. No distention. good BS x4 Skin: Skin warm and dry. Normal skin color. Normal skin turgor. Extremities: No lower extremity edema. Neurovascular intact to all extremities. No Lacerations. No Rash Neuro: Oriented X 3. No motor deficit. No sensory deficit. Moving all extermities. No slurred speech Vital Signs: Vital Signs - 24 hr 01/28/25 21:12 01/28/25 21:19 01/29/25 00:00 Temperature 98.4 F Pulse Rate 78 78 Respiratory Rate 16 16 18 Blood Pressure 95/52 L 95/52 L Pulse Oximetry 90 L 90 L Oxygen Delivery Method Room Air Room Air 01/29/25 02:00 01/29/25 04:00 01/29/25 06:59 Temperature 98.9 F Pulse Rate 94 Respiratory Rate 16 18 18 Blood Pressure 115/60 Pulse Oximetry 94 Oxygen Delivery Method Room Air BMI result Body Mass Index 20.1 Medical Decision Making Medical Decision Making MDM Narrative: Patient is aspirin Tylenol levels are negative. Alcohol is 295. Currently awaiting clinical sobriety. In no acute distress. Not on blood thinners. I received sign-out from Dr. Mulligan. Chest x-ray did not show any acute abnormality. I reviewed patient's labs: No acute abnormality, patient is chronically anemic with a at baseline. Platelets are actually better than in the past. Today 342. Chemistry within normal limits, LFTs chronically elevated but at baseline. Urinalysis negative for UTI, ETOH level 295 Patient declined detox Of note, a few days ago, on 01/24/2025, the care team tried to help the patient go to detox. Ultimately, patient refused. Patient was recently discharged from the hospital on 01/22/2025 for multiple health issues ready to alcohol abuse and dependence Per previous note from January 24, patient was discharged to short-term rehab, also patient got VNA services. Per patient's nurse, patient has been able to get up and walk to the bathroom, patient ambulates by himself, steady gait. Patient adamant that he is not SI or HI. Today, plan: Metabolize to freedom and discharge Time: 12:51 Date: 01/29/25 Provider: Gideon Hill MD I assumed care of this patient from my colleague, Dr. Bradley at 07:00 hours. The patient was evaluated by the recovery team clinician. The patient was accepted at [facility] detox. The recovery team clinician will provide transport to the patient's home and then to [facility] in order to get treatment for his alcohol use disorder. Differential Diagnosis Differential Diagnoses: The differential diagnosis associated with the presentation includes (Alcohol dependence, alcohol abuse) Admission/Observation Consideration of admission/observation: Escalation of care including admission/observation considered (Given patient's multiple episodes of ETOH, observation was considered) Lab Data [place] Lab Attestation statement: I reviewed the patient's lab results. 01/28/25 22:38 01/28/25 22:38 Labs: Lab Results 01/28/25 01/29/25 Range/Units 22:38 02:21 WBC 3.9 L (4.8-10.8) X10*3/uL RBC 3.82 L (4.60-5.80) X10*6/uL Hgb 12.0 L (14.0-18.0) g/dl Hct 35.3 L (42.0-52.0) % MCV 92.4 (80.0-98.0) fL MCH 31.4 (27.0-33.0) pg MCHC 34.0 (31.0-36.0) g/dl RDW 16.7 H (11.0-16.0) % Plt Count 342 D (160-400) X10*3/uL MPV 8.7 L (9.4-12.4) fL Immature Gran % (Auto) 0.5 H (0.0-0.4) % Neut % (Auto) 41.4 L (45-73) % Lymph % (Auto) 41.1 H (20-40) % [place] % (Auto) 12.1 H (2-11) % Eos % (Auto) 2.6 (0-4) % Baso % (Auto) 2.3 H (0-2) % Lymph # (Auto) 1.6 (1.2-4.9) X10*3/uL [place] # (Auto) 0.5 (0.1-1.2) X10*3/uL Eos # (Auto) 0.1 (0.0-0.4) X10*3/uL Baso # (Auto) 0.1 (0.0-0.2) X10*3/uL Abs Immat Gran (auto) 0.02 (0.00-0.03) X10*3/uL Absolute Neuts (auto) 1.6 L (2.0-8.3) x10*3/uL Absolute Nucleated RBC 0.000 (0.0-0.012) X10*3/uL Nucleated RBC % (auto) 0.0 (0.0-0.2) /100WBC Sodium 143 (135-145) mmol/L Potassium 4.0 (3.3-5.1) mmol/L Chloride 106 (96-108) mmol/L Carbon Dioxide 27 (22-29) mmol/L Anion Gap 14 (12-20) BUN 9 (9-16) mg/dL Creatinine 0.63 (0.5-1.4) mg/dL Estim Creat Clear Calc 103.3 Estimated GFR > 60 Random Glucose 91 (60-115) mg/dL Calcium 8.6 (8.4-10.2) mg/dL Total Bilirubin 0.3 (0.0-1.0) mg/dL AST 59 H (5-37) U/L ALT 58 H (0-40) U/L Alkaline Phosphatase 171 H (39-117) U/L Total Protein 7.3 (6.5-8.0) g/dL Albumin 4.0 (3.5-5.0) g/dL Urine Color Yellow Urine Appearance Clear Urine pH 5.5 (5.0-9.0) Ur Specific [place] 1.010 (1.005-1.025) Urine Protein Negative (Neg-Trace) mg/dL Urine Glucose (UA) Negative (Negative) mg/dL Urine Ketones Negative (Negative) mg/dL Urine Blood Negative (Negative) Urine Nitrite Negative (Negative) Ur Leukocyte Esterase Negative (Negative) Urine RBC 0-2 (0-2) /HPF Urine WBC 0-5 (0-5) /HPF Ur Squamous Epith Cells 0-2 (0-2) /HPF Urine Bacteria None Seen (None Seen) Hyaline Casts 3-5 (0-2) /LPF Salicylates < 5.0 L (15-30) mg/dL Urine Opiates Screen Not Detected (Not Detect) Ur Buprenorphine Scrn Not Detected (Not Detect) ng/mL Ur Oxycodone Screen Not Detected (Not Detect) ng/mL Urine Methadone Screen Not Detected (Not Detect) ng/mL Urine Fentanyl Screen Not Detected (Not Detect) Acetaminophen < 3 (<30) mcg/mL Ur Barbiturates Screen POSITIVE H (Not Detect) Ur Phencyclidine Scrn Not Detected (Not Detect) Ur Amphetamines Screen Not Detected (Not Detect) U Benzodiazepines Scrn Not Detected (Not Detect) Urine Cocaine Screen Not Detected (Not Detect) U Marijuana (THC) Screen Not Detected (Not Detect) Ethyl Alcohol 295 mg/dL Independent Interpretation I performed an independent interpretation of an: Plain X-Ray Radiology Impression Discussion of test interpretation with radiology: I have reviewed the radiologist's reading. Radiologist Impression: The lungs are clear. Normal size heart. No acute fracture. IMPRESSION: 1. No acute findings Critical Care Time Critical Care Time Critical Care Time: Yes Total Critical Care Time: 35 Attestation: I have personally provided critical care time. Time includes review of lab data, radiology results, discussion with consultants, and monitoring for potential decompensation. Intervention performed as documented. Discharge Plan Discharge Clinical Impression: Alcohol intoxication Patient Disposition: Home, Self-Care Instructions: Alcohol Use Disorder (ED) Additional Instructions: You were seen by our recovery team clinician and they were able [facility]. Please follow the recovery team clinicians plan and instructions Continue taking medications as prescribed by your providers. Follow-up with your doctor in 2 days. Please return to the emergency department if your symptoms get worse or if you develop any symptoms that are concerning to you. Alcohol use disorder You were seen in the Emergency Department today for treatment of alcohol use disorder.? You may have been given medications to help with your withdrawal symptoms.? Please do not drink alcohol with them. This is very dangerous and can cause respiratory depression or other adverse reactions depending on the medication. If you would like to cut down or stop your alcohol use please consider calling our outpatient Addiction Treatment office:? [facility] (M-F 9a-5p) [address] You have also been given a list of treatment providers in the area that can assist as well.? If you experience seizures, vomiting blood, black stools, falls, severe headache, chest pain, fevers, trouble breathing, hallucinations or any other concerns you need to call 911 or seek immediate care. Please stay hydrated. Prescriptions: No Action Eliquis 5 mg tablet 5 mg PO BID prazosin 1 mg capsule 1 mg PO BEDTIME sertraline 100 mg tablet 200 mg PO DAILY hydroxyzine pamoate 50 mg capsule 50 mg PO BID buspirone 7.5 mg tablet 7.5 mg PO TID mirtazapine 15 mg tablet 15 mg PO BEDTIME albuterol sulfate 90 mcg/actuation HFA aerosol inhaler 2 puff inhalation Q4H PRN (Reason: Shortness Of Breath) melatonin 5 mg tablet 5 - 10 mg PO BEDTIME PRN (Reason: Sleep) folic acid 1 mg Tablet 1 mg PO DAILY 30 Days Qty: 30 0RF nicotine 7 mg/24 hr Patch 24 Hour 7 mg transdermal DAILY 30 Days Qty: 1 0RF thiamine mononitrate (vit B1) 100 mg Tablet 100 mg PO DAILY 30 Days Qty: 30 0RF Trelegy Ellipta 100-62.5-25 mcg Blister With Device 1 inh inhalation RDAILY 30 Days Qty: 1 0RF naltrexone 50 mg tablet 50 mg PO DAILY 30 Days Qty: 30 0RF lidocaine 5 % adhesive patch,medicated 1 patch topical DAILY Qty: 15 0RF Rx Instructions: leave on most painful area for up to 12 hrs acetaminophen 500 mg tablet 1,000 mg PO Q6H PRN (Reason: pain) Qty: 30 0RF Print Language: Somali
[2025-01-29 02:00] VITALS: RESP 16
[2025-01-29 02:27] LABS: Appearance Urine Clear; Glucose Urine UA Negative (Negative); PH 5.5 (5.0-9.0); Specific Gravity - Urine 1.010 (1.005-1.025)
[2025-01-29 02:41] LABS: Cannabinoid Screen Urine Not Detected (Not Detect)
[2025-01-29 04:00] VITALS: RESP 18
[2025-01-29 06:59] VITALS: BP 115/60; PULSE 94; RESP 18; TEMP 37.2; O2SAT 94
--- NOTE | 2025-01-29 11:53 | PC.NURSE ---
Pt escorted from 18H to pod, cane swapped for walker on the unit.
[2025-01-29 13:51] VITALS: BP 115/60; PULSE 94; RESP 18; TEMP 37.2; O2SAT 94
== END 2025-01-29 13:52 | disposition home or self-care (01) ==
PROVIDERS: Emergency Medicine Emergency Medical Services; Emergency Provider Emergency Medicine Emergency Medical Services; PCP Internal Medicine
DX: F10.229 Alcohol dependence with intoxication, unspecified (principal); Y90.8 Blood alcohol level of 240 mg/100 ml or more; J44.9 Chronic obstructive pulmonary disease, unspecified; Z91.010 Allergy to peanuts; Z91.018 Allergy to other foods
CPT/HCPCS: 36415; 71045; 80053; 80143; 80179; 80307; 81001; 85025; 99284; S9485

== ENCOUNTER → 2025-01-29 00:42 | Outpatient (BNV) | payer OTHER, SELFPAY | PROVIDERS: Emergency Provider Emergency Medicine; PCP Internal Medicine; Visit Provider General Practice | DX: Z03.89 Encounter for observation for other suspected diseases and conditions ruled out (principal) | CPT/HCPCS: 71045 ==

== ENCOUNTER 2025-02-03 01:49 | Emergency (ER) | payer OTHER, SELFPAY ==
[2025-02-03] VITALS (7 sets, daily range): BP systolic 98–156; BP diastolic 58–78; PULSE 78–105; RESP 14–18; TEMP 36.2–36.5; O2SAT 90–98; BMI 19.8
--- NOTE | 2025-02-03 02:41 | PC.NURSE ---
Pt SHANIA from home, reports he is in alcohol withdrawal because I am angry. Pt reports he drank a pint of [employer] and when asked when, he states, sometime today. Pt changed over to hospital clothing, belongings locked in closet. All needs met at this time.
--- OUTSIDE RECORDS SUMMARY | 2025-02-03 02:52 | XMS_ITS | Clinical Summary ---
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 Other iron deficiency anemias 12/12/2022 Hypomagnesemia 12/12/2022 Other hypotension 12/12/2022 Difficulty in walking, not elsewhere classified 12/12/2022 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) Acute embolism and thrombosis of other specified veins 12/12/2022 Alcohol abuse with withdrawa l, uncomplicated ([facility] V24, [facility] V28) 12/12/2022 Chronic obstructive pulmonar y disease with (acute) exacerbation ([facility] V24, [facility] V28) 12/12/2022 Resolved Problems Problem Noted Date Diagnosed Date Resolved Date Acute hypoxemic respiratory failure ([facility] V24, [facility] V28) 03/17/2024 03/18/2024 Encounters Date Type Department Care Team Description 12/20/2024 5:55 PM EDT - 12/21/2024 2:58 PM EDT Hospital Encounter [facility] [address] [place] [id number] Rai Gonzalez MD Goebel, Mathew, MD Jones, Christopher, MD Rasul, Yar M, MD Mohani, Priya, MD Hypoxia (Primary Dx); ETOH abuse; Chest pain, unspecified type; Viral pneumonia; Acute hypoxic respiratory failure ([facility] V24, [facility] V28) Discharge Disposition: Left Against Medical Advice from Last 3 Months Surgical History Surgery Date Site/Laterality Comments IVC FILTER Medical History Medical History Date Comments COPD (chronic obstructive pulmonary disease) ([facility] V24, [facility] V28) Neuropathy Social History Tobacco Use Types [...] MOLECULAR STUDY Routine 12/21/2024 1:59 AM EDT [id number], RSV, FLU A AND B QUALITATIVE RT-PCR, [...] blood stool, guaiac (12/21/2024 11:46 AM EDT) [facility] Occult Blood, Stool #1 Positive( A) Negative 12/21/2024 12:28 PM EDT [facility] Stool Rectum structure / Unknown Non-blood Collection / Unknown 12/21/2024 11:46 AM EDT 12/21/2024 11:52 AM EDT Karolyn RABAGO LAB BODY FLUIDS AND STOOLS OR DERABLES Final Result [facility] [address] [place] [address], [place] [phone] * (ABNORMAL) Drug abuse screen 8a panel, urine (12/21/2024 11:46 AM EDT) [facility] Amphetamine Screen, Ur Negative Negative LAB CHEMISTRY METHOD 12:28 PM EDT [facility] Comment:Certain OTC medicati ons containing ephedrine, phenylephrine, pseudoephedrine and phenylpropanolamine can cause false positive results. Barbiturate Screen, Ur Positive(A ) Negative LAB CHEMISTRY METHOD 12:28 PM EDT [facility] Benzodiazepine Screen, Ur Negative Negative LAB CHEMISTRY METHOD 12:28 PM EDT [facility] Cocaine Screen, Ur Negative Negative LAB CHEMISTRY METHOD 12:28 PM EDT [facility] Opiate Screen, Ur Negative Negative LAB CHEMISTRY METHOD 12:28 PM EDT [facility] Cannabinoid (THC) Screen, Ur Negative Negative LAB CHEMISTRY METHOD 12:28 PM EDT [facility] Comment:Specimens from patie nts taking pantoprazole sodium (Protonix) have been shown to produce false positive results. Oxycodone Screen, Ur Negative Negative LAB CHEMISTRY METHOD 12:28 PM EDT [facility] Fentanyl, Ur Negative Negative LAB CHEMISTRY METHOD 12:28 PM T [facility] Urine Urine specimen obtained by clean catch procedure / Unknown Non-blood Collection / Unknown 12/21/2024 11:46 AM EDT 12/21/2024 11:52 AM EDT Narrative [facility] - 12/21/2024 12:28 PM EDT [...] MD LAB URINE ORDERABLES Final Resul t [facility]) [facility] [address] [place] [address], * ECG 12 lead (12/21/2024 6:33 AM EDT) Only the most recent of2 resultswithin the time period is included. Ventricular Rate ECG 77 BPM GEMUSE Atrial Rate 77 BPM GEMUSE P-R Interval 116 ms GEMUSE QRS Duration 130 ms GEMUSE Q-T Interval 416 ms GEMUSE QTc 470 ms GEMUSE P Wave Thayer 35 degrees GEMUSE R Thayer -68 degrees GEMUSE T Thayer 31 degrees GEMUSE ECG Interpretation Normal sinus [...] resultswithin the time period is included. Pathologist [facility] WBC 5.7 4.8 - 10.8 K/mcL LAB [...] LAB HEMETOLOGY METHOD 12/21/2024 6:31 AM EDT [facility] Lymphocytes Absolute 1.15 1.00 - 5.00 K/[facility] HEMETOLOGY METHOD 12/21/2024 6:31 AM EDT [facility] Monocytes Absolute 0.62 0.20 - 1.00 K/[facility] HEMETOLOGY METHOD 12/21/2024 6:31 AM EDT [facility] Eosinophils Absolute 0.12 0.00 - 0.50 K/[facility] HEMETOLOGY METHOD 12/21/2024 6:31 AM EDT [facility] Basophils Absolute 0.03 0.00 - 0.20 K/[facility] HEMETOLOGY METHOD 12/21/2024 6:31 AM EDT [facility] Immature Granulocytes Absolute 0.02 0.00 - 0.03 K/[facility] HEMETOLOGY METHOD 12/21/2024 6:31 AM T [facility] Blood Venous blood specimen / Unknown Venipuncture / Unknown 12/21/2024 5:09 AM EDT 12/21/2024 5:59 AM EDT us Boom Nagel MD LAB BLOOD ORDERABLES Final Result [facility] [address] [place] [address], * Basic metabolic panel (12/21/2024 5:09 AM EDT) Sodium 135 133 - 145 mmol/L LAB CHEMISTRY METHOD 12/21/2024 7:41 AM EDT [facility] Potassium 4.0 3.5 - 5.5 mmol/L LAB CHEMISTRY METHOD 12/21/2024 7:41 AM EDT [facility] Chloride 98 96 - 110 mmol/L LAB CHEMISTRY METHOD 12/21/2024 7:41 AM EDT [facility] CO2 29 21 - 32 [...] Nagel MD LAB BLOOD ORDERABLES Final Result [facility] [address] [place] [address], * Respiratory virus panel molecular study (12/21/2024 1:59 AM EDT) Adenovirus Detection by PCR Not Detected Not Detected LAB MICROBIOLOGY METHOD 12/21/2024 2:56 AM EDT [facility] Influenza A PCR Not Detected Not Detected LAB MICROBIOLOGY METHOD 12/21/2024 2:56 AM EDT [facility] Influenza B PCR Not Detected Not Detected LAB MICROBIOLOGY METHOD 12/21/2024 2:56 AM EDT [facility] Coronavirus 229E Not Detected Not Detected LAB MICROBIOLOGY METHOD 12/21/2024 2:56 AM EDT [facility] Coronavirus HKU1 Not Detected Not Detected LAB MICROBIOLOGY METHOD 12/21/2024 2:56 AM EDT [facility] Coronavirus OC43 Not Detected Not Detected LAB MICROBIOLOGY METHOD 12/21/2024 2:56 AM EDT [facility] Coronavirus NL63 Not Detected Not Detected LAB MICROBIOLOGY METHOD 12/21/2024 2:56 AM EDT [facility] Parainfluenza Virus 1 Not Detected Not Detected LAB MICROBIOLOGY METHOD 12/21/2024 2:56 AM EDT [facility] Parainfluenza Virus 2 Not Detected Not Detected LAB MICROBIOLOGY METHOD 12/21/2024 2:56 AM EDT [facility] Parainfluenza Virus 3 Not Detected Not Detected LAB MICROBIOLOGY METHOD 12/21/2024 2:56 AM EDT [facility] Parainfluenza Virus 4 Not Detected Not Detected LAB MICROBIOLOGY METHOD 12/21/2024 2:56 AM EDT [facility] RSV PCR Not Detected Not Detected LAB MICROBIOLOGY METHOD 12/21/2024 2:56 AM EDT [facility] Human Metapneumovirus A and B Not Detected Not Detected LAB MICROBIOLOGY METHOD 12/21/2024 2:56 AM EDT [facility] Rhinovirus/Entero virus Not Detected Not Detected LAB MICROBIOLOGY METHOD 12/21/2024 2:56 AM EDT [facility] Bordetella pertussis Not Detected Not Detected LAB MICROBIOLOGY METHOD 12/21/2024 2:56 AM EDT [facility] Bordetella parapertussis Not Detected Not Detected LAB MICROBIOLOGY METHOD 12/21/2024 2:56 AM EDT [facility] Mycoplasma pneumo by PCR Not Detected Not Detected LAB MICROBIOLOGY METHOD 12/21/2024 2:56 AM EDT [facility] Chlamydia pneumoniae Not Detected Not Detected LAB MICROBIOLOGY METHOD 12/21/2024 2:56 AM EDT [facility] SARS COV-2 Not Detected Not Detected LAB MICROBIOLOGY METHOD 12/21/2024 2:56 AM EDT [facility] Swab Structure of right anterior naris / Unknown Non-blood Collection / Unknown 12/21/2024 1:59 AM EDT 12/21/2024 2:01 AM EDT [facility] - 12/21/2024 2:56 AM EDT Testing was performed using the RESPACE Respiratory Pathogen PCR Assay. All results must [...] MICROBIOLOGY - GENERAL OR DERABLES Final Result [facility] [address] [place] [address], * [id number], RSV, Influenza A and B qualitative RT-PCR (12/20/2024 10:53 PM EDT) Influenza A PCR Not Detected Not Detected LAB MICROBIOLOGY METHOD 12/21/2024 12:20 AM EDT [facility] Influenza B PCR Not Detected Not Detected LAB MICROBIOLOGY METHOD 12/21/2024 12:20 AM EDT [facility] RSV PCR Not Detected Not Detected LAB MICROBIOLOGY METHOD 12/21/2024 12:20 AM EDT [facility] SARS COV-2 Not Detected Not Detected LAB MICROBIOLOGY METHOD 12/21/2024 12:20 AM EDT [facility] Swab Both anterior nares / Unknown Non-blood Collection / Unknown 12/20/2024 10:53 PM EDT 12/20/2024 11:34 PM EDT Mario Quach MD LAB MICROBIOLOGY - GENERAL ORDAnh RABLES Final Result Performing Organization Address City/[facility]/ZIP Co de Phone Number [facility] [address] [place] [address], [place] [phone] * B-Type Natriuretic Peptide (BNP) (12/20/2024 9:27 PM EDT) BNP 20 <=100 pcg/mL LAB CHEMISTRY METHOD 12/20/2024 10:12 PM EDT [facility] Blood Venous blood specimen / Unknown Venipuncture / Unknown 12/20/2024 9:27 PM EDT 12/20/2024 9:38 PM EDT Rai Gonzalez MD LAB BLOOD ORDERABLES Final Resul t Performing Organization Address City/[facility]/ZIP Co de Phone Number [facility] [address] [place] [address], [place] [phone] * CT Angio Chest wo and/or w [...] angiography chest with contrast. 3D Postprocessing. Comparison: CT/WA/SR - CHEST ANGIOGRAPHY CT - 03/21/2023 08:08 [...] angiography chest with contrast. 3D Postprocessing. Comparison: CT/WA/SR - CHEST ANGIOGRAPHY CT - 03/21/2023 08:08 [...] LAB CHEMISTRY METHOD 12/20/2024 9:33 PM EDT [facility] Blood Venous blood specimen / Unknown Venipuncture / Unknown 12/20/2024 8:56 PM EDT 12/20/2024 9:03 PM EDT Narrative [facility] - 12/20/2024 9:33 PM EDT High levels of biotin in samples may falsely decrease hsTroponin values. Use caution when interpreting hsTroponin results in patients taking biotin who exhibit renal impairment (eGFR <60) or in patients taking more than 20 mg/day of biotin. us Rai Gonzalez MD LAB BLOOD ORDERABLES Final Resul t [facility] [address] [place] [address], [place] [phone] * XR Chest 2 Views (12/20/2024 8:46 PM EDT) Anatomical Region Laterality Modality Body Radiographic Mirella ging 12/20/2024 10:4 8 PM EDT Impressions 12/20/2024 10:48 PM EDT Patchy bilateral infiltrates. This document has been electronically signed by: Temo Llanos MD on 12/20/2024 22:48:02 Narrative 12/20/2024 10:48 PM EDT INDICATION: chest pain 2 view chest x-ray Comparison: DX/WA/SR - XR CHEST 2 - 03/17/24 14:46 EST Findings: No consolidation or effusion. Normal size heart. No acute fracture. Patchy bilateral infiltrates. Procedure Note Temo Llanos MD - 12/20/2024 INDICATION: chest pain 2 view chest x-ray Comparison: DX/WA/SR - XR CHEST 2 - 03/17/24 14:46 [...] LAB COAGULATION METHOD 12/20/2024 8:24 PM EDT [facility] Blood Venous blood specimen / Unknown Venipuncture / Unknown 12/20/2024 7:52 PM EDT 12/20/2024 8:06 PM EDT us Rai Gonzalez MD LAB BLOOD ORDERABLES Final Resul t [facility] [address] [place] [address], [place] [phone] * Protime-INR (12/20/2024 7:52 PM EDT) Protime 13.1 10.6 - 13.9 sec LAB COAGULATION METHOD 12/20/2024 8:24 PM EDT [facility] INR 1.1 LAB COAGULATION METHOD 12/20/2024 8:24 PM EDT [facility] Blood Venous blood specimen / Unknown Venipuncture / Unknown 12/20/2024 7:52 PM EDT 12/20/2024 8:06 PM EDT us Rai Gonzalez MD LAB BLOOD ORDERABLES Final Resul t Performing Organization Address [facility]/ZIP Co de Phone Number [facility] [address] [place] [address], [place] [phone] * (ABNORMAL) Ethanol (12/20/2024 7:52 PM EDT) Ethanol Level 211(H) 0 - 10 mg/dL LAB CHEMISTRY METHOD 12/20/2024 8:37 PM EDT [facility] Blood Venous blood specimen / Unknown Venipuncture / Unknown 12/20/2024 7:52 PM EDT 12/20/2024 8:06 PM EDT us Rai Gonzalez MD LAB BLOOD ORDERABLES Final Resul t Performing Organization Address [facility] de Phone Number [facility] [address] [place] [address], [place] [phone] * (ABNORMAL) Comprehensive Metabolic Panel (CMP) (12/20/2024 7:52 PM EDT) Pathologist [facility] Sodium 141 133 - 145 mmol/L LAB CHEMISTRY METHOD 12/20/2024 8:37 PM [facility] Potassium 3.4(L) 3.5 - 5.5 mmol/L LAB CHEMISTRY METHOD 12/20[facility]2024 [facility] Chloride 100 96 - 110 mmol/L LAB CHEMISTRY METHOD 12/20/2024 8:37 PM T [facility] CO2 31 21 - 32 mmol/L LAB CHEMISTRY METHOD 12/20/2024 8:[facility] Anion Gap 10 3 - 11 LAB CHEMISTRY METHOD 12/20/2024 8:37 PM [facility] Glucose 128(H) 70 - 100 mg/dL LAB CHEMISTRY METHOD 12/20/2024 8:37 PM [facility] BUN 13 5 - 25 [...] ORDERABLES Final Resul t EDG[facility] MONTI[facility] [place] ([facility] [address] [place] [address], from Last 3 Months Insurance [facility] MEDIC[facility] Member Subscriber Plan / Payer (Ef fective 2023-Present) Name:GIO ZEE Relation to Subscriber:Self Name:Gio Zee Payer ID:[id number] Group ID:[id number] Type:Not on file Address: [place] [address] [address] [id number] Advance Directives Documents on File Type Date Recorded Patient [employer] Executive Director Expl anation Health Care Decision (hx) 05/18/2017 [...] DIRECTIVE Health Care Decision (hx) 05/18/2017 AD GELASON DIRECTIVE Health Care Decision (hx) 05/18/2017 AD [...] Agents on File Name Relationship Healthcare Agent [facility] Communication Peyton Ely Relative Health Care Agent Care Teams Rug Dyer Helper Relationship Specialty Start Date End Date Cristhian Delgado DO [address] [facility] [address] [place], [place] PCP - General Internal Medicine 02/01/24
--- OUTSIDE RECORDS SUMMARY | 2025-02-03 02:52 | XMS_ITS | Data Portability ---
Author Organization [facility], Main Office Address [address] [place] [address] Care Team Providers Care Diesel Service Technician Name Role Phone LAM BARAJAS - 2ND [...] deep vein thrombosis of lower extremitie s [id number] Active 2017 IVC FILTER IN 2017 and bilateral thrombolys is SHELBI STREETER [address] [facility], [address], [place], [address] [place] [address] 8 12:36:34 Alcohol withdrawal delirium 5773268 Active 2017 Viridiana rainey [facility] 8 10:43:30 Chronic obstructiv e pulmonary disease 87575830 Active 2017 Viridiana rainey [facility] 8 10:43:38 Aspiration pneumonia 755264372 Active 2017 Viridiana rainey [facility] 8 10:43:47 Urinary tract infectious disease 36785540 Active 2017 Viridiana rainey [facility] 8 10:44:01 Tobacco dependence syndrome 43530564 Active 2017 Viridiana raieny [facility] 8 10:44:11 Peripheral nerve disease 818606331 Active 2017 Viridiana Miller brigid, [facility] 8 10:44:19 Anemia 775817256 Active 2017 Viridiana rainey, [facility] 8 10:44:24 Thrombocyt openic disorder 978425159 Active [address], [place], [address], [facility] 8 12:35:04 Chronic hepatitis 05675712 Active [address], [address], [place], [address], [facility] 8 12:35:27 Alcohol dependence 42834686 Active 2017 Giovani Juarez MD [address] [facility] [facility] [address], [address], [place], [address], [facility] 8 12:06:43 Left upper quadrant pain 891581038 Active 2017 SHELBI Daly [address] , [address], [place], [address], [facility] 8 15:19:12 Cellulitis of buttock 06480929 Active 2022 ELIZABETH JACKSON NP [address] [facility] [facility], [address], [place], [address], [facility] 3 13:40:37 Harmful pattern of use of alcohol 42397760 Active 2022 ELIZABETH JACKSON NP [address], [address], [place], [address], [facility] 3 13:41:13 Open wound of buttock 392814615 Active 2022 ELIZABETH JACKSON NP [address], [address], [place], [address], [facility] 3 13:43:26 Problem Notes None recorded. Medical Equipment None Reported. Allergies Allergen ID Allergen Name Allergen Category Reaction Reaction Severity Criticality Documentation Date Start Date Code Code System Note Provider Name and Address Organization Details Recorded Time 46066 peanut allergeni c extract food,medi cation Not available Not available Not available 10/15/2022 84690 8 RxNorm peanu t butte r, facia l tere JACKSON NP [address] [facility], [address], [place], [address], [facility] 3 13:39:42 09000 raspberry extract food,medi cation Not available Not available Not available 10/15/2022 21554 69 RxNorm facia l tere JACKSON NP [address] [facility] [address], [address], [place], [address], [facility] 3 13:40:02 Vitals Date Recorded Heart rate Respiratory rate Body temperature Systolic And Diastolic Provider Name and Address Organization Details Last Updated DateTime 10/15/2022 73 /min 18 /min 98.3 [degF] 91/55 mm[Hg] ELIZABETH JACKSON NP [address] [facility], [address], [place], [address], [facility] 3 13:33:48 Date Recorded Body temperature Oxygen saturation Heart rate Systolic And Diastolic Provider Name and Address Organization Details Last Updated DateTime 10/19/2022 98.3 [degF] 94 % 73 /min 91/55 mm[Hg] Cecilia Tucker MD [address] [facility], [address], [place], [address] , [facility] 3 06:30:21 Date Recorded Body weight Heart rate Respiratory rate Body temperature Oxygen saturation Systolic And Diastolic Provider Name and Address Organization Details Last Updated DateTime 3 76859.7 2 g 73 /min 18 /min 98.3 [degF] 94 % 91/55 mm[Hg] Violette Newell NP [address] [facility], [address], [place], [address], [facility] 3 11:10:43 Date Recorded Body weight Heart rate Respiratory rate Body temperature Oxygen saturation Systolic And Diastolic Provider Name and Address Organization Details Last Updated DateTime 3 93732.7 2 g 73 /min 18 /min 98.3 [degF] 94 % 91/55 mm[Hg] Violette Newell, AR[place] [address], [address], [place], [address], [facility] 3 12:59:44 Date Recorded Body weight Heart rate Respiratory rate Body temperature Oxygen saturation Systolic And Diastolic Provider Name and Address Organization Details Last Updated DateTime 3 27293.7 2 g 73 /min 18 /min 98.3 [degF] 94 % 91/55 mm[Hg] Violette Newell, AR[place] [address], [address], [place], [address], [facility] [employer] [facility] 3 10:56:55 Social History Question Answer Notes LastModified by [employer] Details LastModified Time Tobacco Smoking Status Current Every Day Smoker Viridiana Miller brigid, [facility] [employer] [facility] 05/19/2017 10:55:27 Do You Have An Advance Directive? Yes [email or web address] Information not available 10/15/2022 How Many Years Have You Consumed Alcohol? 44 Information not available 05/19/2017 What Is Your Code Status? Full Code [email or web address] Information not available 10/15/2022 Which Illicit Or Recreational Drugs Have You Used? Marijuana [email or web address] Information not available 10/15/2022 How Many Days In The Past Year Have You Had A Heavy Drinking Consumption (4+ Female, 5+ Male)? 365 Drinks 1 Pint Of Southern Comfort And 2 Nips/day, Longest Period Of Sobriety 6 Mos Information not available 05/19/2017 Do You Have A Medical Power Of Air Chipper? Yes Information not available 05/19/2017 What Was The Date Of Your Most Recent Tobacco Screening? 10/15/2022 [email or web address] Information not available 10/15/2022 How Much Tobacco [...] vector-nr, rS-Ad26, PF, 0.5 mL 2 completed [facility] 10/22/2022 16:48:27 Tdap 2 completed [facility] 10/22/2022 16:48:42 pneumococcal polysaccharide PPV23 1 completed [facility] 05/27/2023 13:19:59 influenza, unspecified formulation 3 completed [facility] 05/27/2023 13:21:04 influenza, unspecified formulation 4 completed [facility] 05/27/2023 13:21:19 SARS-COV-2 (COVID-19) vaccine, UNSPECIFIED 3 completed [facility] 05/27/2023 13:21:41 Past Encounters Encounter ID Performer Location Encounter Start Date Encounter Closed Date Diagnosis/Indication Diagnosis SNOMED-CT Code Diagnosis ICD10 Code Diagnosis IMO Codes Diagnosis Note [id number] [address] [place] [address] 05/19/2017 10:32:28 05/25/2017 14:07:44 Bilateral deep vein thrombosis of lower extremities 579422919 I82.493 See HPIs/p IVC filter Dec, s/p EKOS catheter thrombolys is 3/2Eliquis 10 mg BID until 05/22 then 5 mg BIDMonitor for increase in pain/edema PT/OT eval and treat Alcohol wi thdrawal delirium 1850572 F10.231 Hx of heavy alcohol use with DTs in hospitalRi speridone 0.25 mg TIDThiamin e 100 mg dailyFolic acid 1 mg dailyMonit or moodNEG consult prn Aspiration pneumonia 422 383028 J69.0 Augmentin to complete courseAdd probioticA spiration precaution sSLP eval and treat Urinary tr act infectious disease 96847572 N30.00 Complete antibiotic as aboveMonit or sxs Chronic ob structive pulmonary disease 01241758 J41.8 Duonebs prnSupplem ental O2 prnMonitor respirator y status Tobacco de pendence syndrome 99293068 F17.210 Nicotine patchEncou rage smoking cessation Peripheral nerve disease 164107679 G64 Secondary to ETOH abuseMonit or sxs Anemia 362283590 D64.89 Repeat and monitor CBC [id number] MD MARKUS Melchor [address] [place] [address] 05/24/2017 10:26:07 05/26/2017 12:52:00 Bilateral deep vein thrombosis of lower extremities 637199862 I82.493 see HPIEliquis 5 mg bidmonitor with restart of medication on dose decreasing from 10 mg bid Alcohol wi thdrawal delirium 4465468 F10.231 see HPIthiamin e 100 mg qdmonitor for sx Tinea cruris 643173193 B 35.6 nystatin powdermoni tor to resolution Peripheral nerve disease 155355574 G64 start neurontin 100 mg tidtitrate for effect Urinary tr act infectious disease 97783577 N10 complete abmonitor for sx Chronic ob structive pulmonary disease 33137949 J41.1 at baselineco ntin[place] [id number] [address] [place] [place] [address] 06/01/2017 10:32:02 06/10/2017 14:19:14 Bilateral deep vein thrombosis of lower extremities 956781116 I82.493 see HPIEliquis 5 mg bidF/u with PCP Alcohol wi thdrawal delirium 3193711 F10.231 see HPIthiamin e 100 mg qdd/c risperidal Home services in place with social work and psych consults Chiqui t motivated to remain sober Peripheral nerve disease 970752235 G64 Increase neurontin 200 mg tidf/u with PCP Urinary tr act infectious disease 34104968 N10 antibiotic course completeap pears resolved Chronic ob structive pulmonary disease 76908136 J41.1 at baselineco [place]tin[place] [id number] [address] 09/16/2017 12:30:46 09/28/2017 15:08:07 Chronic hepatitis 35534657 K70.10 PT/OT eval and treatfollo w LFTsencour age ETOH abstinence psych eval and treat for abstinence follow up with GI prn Thrombocyt openic disorder 615721863 D69.59 monitor labsPlts corrected currently from 70 to 203 Chronic ob structive pulmonary disease 15020850 J41.8 duoneb q 4 hrs prnmonitor respirator y status Peripheral nerve disease 803863444 G64 neurontin 300 mg q 8 hrswill change to 300 mg q 9 am and 2 pm and 600 mg q hsc/o foot pain increased at nightmonit or pain Bilateral deep vein thrombosis of lower extremities 757721405 I82.593 eliquis 2.5 mg bidIVC filter in placemonit or labs Alcohol wi thdrawal delirium 9745461 F10.231 folic acid 1 mg qdmultivit e qdthiamine qdmonitor for withdrawal ativan 0.5 mg q 4 hrs prn added Tobacco de pendence syndrome 07303024 F17.210 nicotine patch 21 mg/24 hr qdmonitor for withdrawal [id number] MD ASHLEY Melchor AT [address] [address] 09/18/2017 12:00:41 09/28/2017 15:44:02 Asthenia 35013593 R53.1 see HPIPT OT eval and treatmonit or lytes Chronic hepatitis 146238 07 K73.2 see HPIseconda ry to ETOHGI eval prn Alcohol dependence 31795 003 F10.288 extended discussion with patient concerning use of etoh and effect on health. when patient returned after SNF stay in 05/16 again began drinking 1 pint and 1 nip per daypatient states understand ing that continuing with prior drinking habits will result in Thrombocyt openic disorder 943031188 D69.59 repeat and monitor cbc Bilateral deep vein thrombosis of lower extremities 531716182 I82.493 see HPIEliquis 2.5 mg bidmonitor with restart of medication IVC filter in place Chronic ob structive pulmonary disease 83870504 J41.1 at baselinedu onebs in place [place] [id number] [address] [address] 09/20/2017 16:11:59 09/28/2017 15:48:42 Chronic hepatitis 13816943 K70.10 PT/OT eval and treatfollo w LFTs weekly and once he is outpt with pcpencoura ge ETOH abstinence follow up with GI prnwill get ortho BPs bid x 2 days Thrombocyt openic disorder 599552543 D69.59 monitor labs, improved Chronic ob structive pulmonary disease 38297544 J41.8 duoneb q 4 hrs prnmonitor respirator y statusenco urage pt to stop smoking Peripheral nerve disease 063685613 G64 neurontin 300 mg q 9 am and 2 pm and 600 mg q hsmonitor pain Bilateral deep vein thrombosis of lower extremities 636521259 I82.593 eliquis 2.5 mg bidIVC filter in placemonit or labs Alcohol wi thdrawal delirium 9729416 F10.231 folic acid 1 mg qdmultivit e qdthiamine qdativan 0.5 mg q 4 hrs prn Tobacco de pendence syndrome 74418537 F17.210 nicotine patch 21 mg/24 hr qd [id number] [address] AT [address] [address] 09/21/2017 15:09:20 09/28/2017 16:05:00 Alcohol dependence 90905932 F10.20 ok to dc home tomorrowst rongly encouraged abstinence /AA Chronic hepatitis 110237 07 K70.10 encourage ETOH abstinence follow up with GI prn and pcp Bilateral deep vein thrombosis of lower extremities 003292102 I82.593 eliquis 2.5 mg bidIVC filter in place Chronic ob structive pulmonary disease 81969938 J41.8 duoneb q 4 hrs prnencoura ge pt to stop smoking Left upper quadrant pain 573848151 R10.12 pt will f/u with PCP as out pt for further testing if needed [id number] [address] AT [address] [address] 10/02/2017 16:10:48 10/20/2017 12:10:03 Alcohol dependence 52994213 F10.20 see hpiPT OT for conditioni ng and mobilityst rongly encouraged abstinence Chronic ob structive pulmonary disease 83621048 J41.8 duoneb q 4 hrs prnencoura ge pt to stop smoking Anemia 942373681 D64.9 monitor cbc Peripheral nerve disease 745084698 G64 neurontin 300 mg q 9 am and 2 pm and 600 mg q hsmonitor pain Bilateral deep vein thrombosis of lower extremities 571044311 I82.593 resume eliquis 2.5 mg bidIVC filter in placedue to alcoholism he would not be a candidate for coumadin [id number] MD ROSMERY MelchorLEY AT [address] [address] 10/05/2017 15:13:51 10/20/2017 13:22:05 Asthenia 12377275 R53.1 see HPImultifa ctorial PT OT eval and treatmonit or lytes Alcohol dependence 20728 003 F10.288 Repeat extended discussion with patient concerning use of etoh and effect on health. patient states understand ing that continuing with prior drinking habits will result in Chronic hepatitis 444730 07 K73.2 see HPIseconda ry to ETOHGI eval prn Bilateral deep vein thrombosis of lower extremities 934294241 I82.493 see HPIEliquis 2.5 mg bidmonitor with restart of medication IVC filter in place Peripheral nerve disease 714152842 G64 increase gabapentin to 300 mg tidmonitor for effect [id number] [address] 10/07/2017 14:48:18 10/20/2017 14:00:14 Alcohol dependence 53405515 F10.288 encouraged to abstain from ETOHfollow up with PCP Chronic hepatitis 799735 07 K73.2 secondary to ETOHfollow up with PCP Bilateral deep vein thrombosis of lower extremities 237530408 I82.493 Eliquis 2.5 mg bidspoke with him at length about needing to contact PCP and pharmacy to get prior authorizat ion form for eliquisIVC filter in placefollo w up with PCP Peripheral nerve disease 121702924 G64 gabapentin to 300 mg tidtylenol as neededfoll ow up with PCP [id number] ELIZABETH JACKSON NP [address] [address] 10/15/2022 13:30:52 10/20/2022 10:25:28 Cellulitis of buttock 31274632 L03.317 Continue levaquin 500 mg daily x 3 daysAdd probiotic bid x 7 daysStill with inflammati on/indurat ion around woundTrend sx., VS, labsCBC, BMP q wednesday Alcohol dependence 49146 003 F10.288 s/p phenobarb protocol in hosp., no sx. of withdrawal Encourage abstinence Open wound of buttock 26 3828811 S31.829A With associated abscess and cellulitis Debrided 10/08Finish abx. as aboveCurre nt tx. moist kerlix and DCD daily and prnRefer to [facility] wound clinic for eval and tx. - pt. concerned about transporta tion - if too expensive can refer to Wound team hereMonito r wound, VS, labs for change Chronic ob structive pulmonary disease 86113765 J41.8 Combivent respimat 1 inh qid prnAlbuter ol MDI q4 hr prn - requesting to keep at bedside and self administer Continues to smoke Tobacco de pendence syndrome 75221715 F17.210 Continues to smoke hereEnc. 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 for sobrietyth iamine 100 mg dailyfolic acid 1 mg dailyMVI dailywill monitor Open wound of buttock 26 6444776 S31.829A s/p I&Dantibio tics completedw ound care per surgery recommenda tionsfollo w up wound clinic Chronic ob structive pulmonary disease 34472092 J41.8 Combivent 18-103: 1 puff q6h prnalbuter ol HFA: 1 puff q4h prnwill monitor Asthenia 29531971 R53.1 PT/OTwill monitor and support s needed History of deep vein thrombosis 906806461 Z86.718 apixaban 5 mg bidwill monitor [id number] Violette Newell NP [address] [address] 10/22/2022 11:09:43 10/26/2022 10:58:25 Harmful pattern of use of alcohol 74357693 F10.10 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 for sobrietyno tremor noted, anxious at baselineth iamine 100 mg dailyfolic acid 1 mg dailyMVI dailywill monitor Open wound of buttock 26 7201460 S31.829A s/p I&D on 10/08/22IV and po antibiotic s completed for cellulitis wound care per surgery recommenda tionsfollo w up wound clinic and dressings dailymonit or cbc and labs weekly Chronic ob structive pulmonary disease 54080318 J41.8 Combivent 18-103: 1 puff q6h prnalbuter ol HFA: 1 puff q4h prnwill monitor Asthenia 36519371 R53.1 PT/OTwill monitor and support s needed History of deep vein thrombosis 653387859 Z86.718 apixaban 5 mg bids/p ivc filterwill monitor Alcohol dependence 54660 003 F10.288 s/p phenobarb protocol in hosp., no sx. of withdrawal Encourage abstinence Tobacco de pendence syndrome 50923961 F17.210 Continues to smoke hererefuse s nicotine patchEnc. 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 of withdrawal Encourage abstinence Tobacco de pendence syndrome 91787539 F17.210 Continues to smoke here now on scheduled breaks with staffrefus es nicotine patchEnc. abstinence Intertrigo 09184892 L30. 4 nystatin topically powder bid and prn x 14 daysmonito r Neuropathy 710322812 G62 .[address] De La Cruz this weekend09/30 she recommends 2% gel diclofenac topically 2 gram to bilateral feet bid, will agree todaymonit or for relief [id number] Violette Newell NP [address] [address] 10/27/2022 10:55:47 10/29/2022 09:47:39 Open wound of buttock 418599048 S31.829A s/p I&D on 10/08/22IV and po antibiotic s completed for cellulitis follow up wound clinic and dressings every 3rd day with stacy westfall to wound SITE IDENTIFICATION SPECIALIST herecurren t order to left buttock wound irrigiate with wound wash, pack with hydrofera blue-moist en with ns, squeeze excess out. cover wtih zetuvit plus silicone bordered dressing q 3 dayscont protein liquid or supplement s to add in wound healingmon itor outpt with pcp and vna Intertrigo 46233716 L30. 4 nystatin topically powder bid and prn until healedvna to assess for resolution monitor outpt Neuropathy 945433119 G62 .[address] 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 for sobrietyno tremor noted, anxious at baselineth iamine 100 mg dailyfolic acid 1 mg dailyMVI dailywill monitor outpt with pcp Chronic ob structive pulmonary disease 56918064 J41.8 Combivent 18-103: 1 puff q6h prnalbuter ol HFA: 1 puff q4h prnmonitor outpt with pcp Asthenia 99787714 R53.1 improved herewill monitor and support s needed outptmonit or outpt, pt/ ot to assess for safety, strengthen ing and balance, offloading pressure to wound, and safety conditions at home History of deep vein thrombosis 289545967 Z86.718 apixaban 5 mg bids/p ivc filterwill monitor outpt Alcohol dependence 39873 003 F10.288 s/p phenobarb protocol in hosp., no sx. of withdrawal Encourage abstinence outpt and services as needed Tobacco de pendence syndrome 73572878 F17.210 Continues to smoke here now on [...] Ruiz Member ID Guarantor Name 10/14/2022 1 [facility] - HEALTH NET PLAN (MEDICAID HMO) [id number] Edgardo Zavala [id number] Edgardo Zavala 10/26/2022 1 [facility] - DOS ON OR AFTER 2022 - MEDICARE ADVANTAGE [place] (MEDICARE REPLACEMENT/ADV ANTAGE - PPO) Edgardo Zavala [id number] Edgardo Zavala Notes Date Note Type Note Provider Name and Address Organization Details Recorded Time 10/15/2022 text/html Edgardo is seen today for initial intake. He is a 62 yo male admitted to [facility] 10/14/22 from [facility] for continued care and rehab after a brief hosp. related to a buttock wound and cellulitis. He presented to [facility] 10/07 with several days of buttock pain [...] covered with DCD. Needs follow up with [facility] wound clinic, ? wound vac. Upon d/c abx. changed to levaquin x 3 more days.DVT - remained on eliquisTobacco use - nicoderm patchCOPD - stable PMH: ETOH abuse, anemia, BLE DVTs IVC filter 2017 and bilat. thrombolysis, chronic hepatitis, COPD, PVD, thrombocytopenia, tobacco use, UTIMOLST: full code ELIZABETH JACKSON NP [address], [address], [place], [address], [facility] [employer] 10/15/2022 14:49:09 10/19/2022 text/html This 62 year old man was admitted to [facility] on 10/14/22for rehab and continued care. 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 He was having several [...] - signed 10/15/22 Cecilia Tucker MD [address], [address], [place], [address], [facility] 10/19/2022 14:28:20 10/22/2022 text/html Patient is seen for an acute rounding visit today. 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 He was having several [...] - signed 10/15/22 Violette Newell NP [address], [address], [place], [address], [facility] [employer] 10/22/2022 11:32:05 10/26/2022 text/html Patient is seen [...] 62 year old man was admitted to [facility] on 10/14/22for rehab and continued care after presenting to the ER at [facility] on 10/07/22. He was having several [...] - signed 10/15/22 Violette Newell NP [address], [address], [place], [address], [facility] 10/26/2022 13:39:46 10/27/2022 text/html Patient is seen for a discharge summary visit today. Edgardo is a 62 year old man was admitted to [facility] on 10/14/22for rehab and continued care after presenting to the ER at [facility] on 10/07/22. He was having several [...] 3 days now according to the wound SITE IDENTIFICATION SPECIALIST. His groin is improving with the nystatin [...] - signed 10/15/22 Violette Newell, ARNOLD [address], [address], [place], [address], [facility] 10/28/2022 10:11:07
--- OUTSIDE RECORDS SUMMARY | 2025-02-03 02:52 | XMS_ITS | Data Portability ---
Author Organization [facility], Telehealth Patient Home Address [address] [facility] [place] [address] Assessment Encounter Date Assessment Date Assessment LastModified by Organization Details LastModified Time 01/19/2024 01/19/2024 [id number] [place] [id number] (CAR CHASER) MDM HIGH MUST MEET 2 OUT OF [...] COVERED Not available 01/19/2024 11:54:32 03/22/2024 03/22/2024 [id number] [place] [address] (CAR CHASER) MDM MODERATE MUST MEET 2 OUT OF [...] COVERED Not available 03/22/2024 11:36:53 05/19/2024 05/19/2024 [id number] [place] [address] (CAR CHASER) MDM HIGH MUST MEET 2 OUT OF [...] COVERED Not available 05/19/2024 15:01:00 06/07/2024 06/07/2024 [id number] [id number] (CAR CHASER) MDM MODERATE MUST MEET 2 OUT OF [...] COVERED Not available 06/07/2024 12:03:37 10/10/2024 10/10/2024 [id number] [place] [address] (CAR CHASER) MDM MODERATE MUST MEET 2 OUT OF [...] vitamin D, 25-hydroxy, total, serum 2024 025 [facility], [address] [place] [address], [address], 12:27:32 vitamin B12 + folate, serum or blood 2024 025 [facility], [address] [place] [address], [address], 12:30:46 CMP, serum or plasma 2024 025 [facility], [address] [place] [address], [address], 12:30:45 Referral orthopedic surgeon referral 2024 025 vamshi Simpson MD, [address] [facility] [address], [place], [address], 09:07:33 gastroenter ologist referral - routine colonoscopy 2024 025 aravind Parra MD, [address] [facility] [address], [place], [address], 09:35:00 Procedures None recorded. Surgeries None recorded. Imaging XR, hand, 3 or more view 2024 025 [facility] ([facility]), [address] [place], [address], 08:24:58 MRI, shoulder, w/o contrast 2024 025 [facility] ([facility]), [address] [place], [address], 5 08:26:15 XR, hand, 3 or more view 2023 024 [facility] ([facility]), [address] [place], [address], 4 08:29:38 Medication Orders triamcinolo ne acetonide 0.1 % topical cream 2024 025 [id number], [address] [place], [address], 5 16:46:57 azithromyci n 250 mg tablet 2024 025 [id number], [address] [place], [address], 5 12:12:19 azithromyci n 250 mg tablet 2024 025 [facility], [address] [place], [address], 5 14:59:57 triamcinolo ne acetonide 0.1 % topical cream 2024 025 [facility], [address] [place], [address], 5 15:02:20 triamcinolo ne acetonide 0.1 % topical cream 2023 024 [facility], [address] [place], [address], 4 11:51:47 Multivitami n 50 Plus tablet 2023 024 [id number], [address] [place], [address], 4 11:50:00 Patient TargetsNo targets recorded. Patient Instructions Encounter Date Encounter Id Patient Instructions Last Modified By Organization Details Last Modified Time 01/19/2024 [id number] chronic obstructive pulmonary disease (COPD): care instructions Not available 01/19/2024 11:49:57 learning about copd and how to prevent lung infections Not available 01/19/2024 11:49:57 pulse oximetry* Not available 01/19/2024 11:49:57 neuropathic pain : care instructions Not available 01/19/2024 11:49:57 03/22/2024 [id number] pulse oximetry* KAROLYN Not available 03/22/2024 11:49:54 05/19/2024 [id number] pulse oximetry* Not available 05/19/2024 14:59:35 dislocated shoulder: care instructions Not available 05/19/2024 14:59:35 shoulder dislocation: rehab exercises Not available 05/19/2024 14:59:35 neuropathic pain : care instructions Not available 05/19/2024 15:02:31 06/07/2024 [id number] pulse oximetry* KAROLYN Not available 06/07/2024 11:42:18 10/10/2024 [id number] pulse oximetry* Not available 10/10/2024 16:46:54 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 Referral for Screening for malignant neoplasm of [...] Available [facility] [address] [facility] [address], [place], [address], 01/14/2024 11:32:45 03/22/19 25 03/22/2024 pulse oxime try* Result 95 Not Available [facility] [address], [place], [address], 03/14/2024 11:54:52 05/20/19 25 05/19/2024 pulse oxime try* Result 91% Not Available [facility] [address] [facility], [place], [address], 05/17/2024 16:20:55 06/08/19 25 06/07/2024 pulse oxime try* Result 93 Not Available [facility] [address] [facility] [address], [place], [address], 06/04/2024 08:15:20 10/11/1910/10/2024 pulse oxime try* Result 97 Not Available [facility] [address] [facility] [address], [place], [address], 10/10/2024 07:45:39 06/06/19 25 06/01/2024 MRI, shoul georgina, w/o contr ast No observ ation record ed. [facility] Mri Department [address] [place], [address], 06/05/2024 15:20:13 10/27/1910/26/2024 XR, shoul georgina No observ ation record ed. [address] (Medical Records) [address] [place], [address], 10/27/2024 09:20:23 10/27/1910/26/2024 CT, angio gram, chest + abdom en + pelvi s, w/ contr ast No observ ation record ed. [address] (Medical Records) [address] [place], [address], 10/27/2024 09:20:53 10/28/19 25 10/26/2024 CT, angio gram, chest , w/ contr ast No observ ation record ed. [email or web address] [facility] (Medical Records) [address] [place], [address], 10/27/2024 10:02:41 12/19/19 25 12/18/2024 imagi ng/di agnos tic resul t No observ ation record ed. [email or web address] [facility] (Medical Records) [address] [place], [address], 12/19/2024 08:50:10 01/05/20 25 01/04/2025 XR, chest , 2 view No observ ation record ed. [address] (Medical Records) [address] [place], [address], 01/04/2025 16:40:25 01/25/20 25 01/24/2025 XR, humer us No observ ation record ed. [facility] (Medical Records) [address] [place], [address], 01/24/2025 16:09:25 01/25/20 25 01/24/2025 XR, shoul georgina No observ ation record ed. [facility] (Medical Records) [address] [place], [address], 01/24/2025 16:09:40 01/25/20 25 01/24/2025 XR, hand, 3 or more view No observ ation record ed. [address] (Medical Records) [address] [place], [address], 01/24/2025 15:51:21 01/25/20 25 01/24/2025 XR, hand, 3 or more view No observ ation record ed. [address] (Medical Records) [address] [place], [address], 01/24/2025 15:51:32 01/25/20 25 01/24/2025 CT, head + brain , w/o contr ast No observ ation record ed. [facility] (Medical Records) [address] [place], [address], 01/25/2025 09:00:43 01/25/2001/24/2025 CT, cervi octavio spine , w/o contr ast No observ ation record ed. [facility] (Medical Records) [address] [place] [place], [address], 01/25/2025 09:01:14 01/25/2001/24/2025 CT, chest , w/ contr ast No observ ation record ed. [facility] (Medical Records) [address] [facility], [place], [address], 01/25/2025 09:01:41 01/30/2001/29/2025 XR, chest , 2 view No observ ation record ed. [facility] (Medical Records) [address] [place], [address], 01/29/2025 06:35:30 Result Notes None recorded. Problems Name Problem SNOMED Code Status Onset Date Resolution Date Notes Provider Name and Address Organization Details Recorded Time Chronic obstructi ve pulmonary disease 95923360 Active 2018 Sheila rainey [facility] 9 15:16:29 Neuropath y 674154570 Active 2018 Sheila rainey [facility] 9 15:16:41 Gout 69005973 Active 2018 Sheila rainey [facility] 9 15:16:48 History of gallstone s 304756755 Active 2018 Sheila rainey [facility] 9 15:17:04 History of deep vein thrombosi s 453663546 Active 2018 s/p IVC filter Jennifer Dalton, [facility] [address] [place], [address], [facility] 9 14:35:19 Harmful pattern of use of alcohol 66566988 Active 2018 Kimberly Coelho NP, [address] [place] [address], [address], [facility] 9 16:45:28 Tobacco dependenc e syndrome 02427720 Active 2018 Kimberly Coelho NP, S [address] [place] [address], [address], [facility] 9 16:13:47 Tinea corporis 29223372 Active 2023 Cristhian Delgado, [address] [place] [address], [address], [facility] 4 12:10:21 Insomnia 115128223 Active 2023 Cristhian Delgado DO [address] [place] [address], [address], [facility] 4 12:17:44 Secondary periphera l neuropath y 130910 Active 2023 Cristhian Delgado DO [address] [place] [address], [address], [facility] 4 22:16:11 Acute exacerbat ion of chronic obstructi ve pulmonary disease 441645053 Active 2023 HIMA HUERTA [address] [place] [address], [address], [facility] 4 15:05:32 Generaliz ed rash 287915237 Active 2023 HIMA HUERTA [address] [place] [address], [address], [facility] 4 10:59:16 Depressiv e disorder 78669047 Active 2023 HIMA HUERTA [address] [place] [address], [address], [facility] 4 10:26:22 Eczema 65439298 Active 2023 Cristhian Delgado DO [address] [place] [address], [address], [facility] 4 11:50:30 Pain of bilateral hands 69824353254 612328 Active 2023 Cristhian Delgado DO [address] [place] [address], [address], [facility] 4 11:52:35 Pruritic rash 83891490 Active 2023 Cristhian Delgado DO [address] [place] [address], [address], [facility] 4 21:26:20 COVID-19 776510548 Active 2024 Cristhian Delgado DO [address] [place] [address], [address], [facility] 5 11:37:01 Nummular eczema 57006276 Active 2024 Cristhian Delgado DO [address] [place] [address], [address], [facility] 5 14:51:23 Dislocati on of shoulder joint 981382445 Active 2024 Cristhian Delgado DO [address] [place] [address], [address], [facility] 5 14:52:22 Dislocati on of shoulder joint 361336309 Active 2024 Cristhian Delgado DO [address] [place] [address], [address], [facility] 5 14:52:26 Bilateral pain of joint of hands 53703829471 837638 Active 2024 Cristhian Delgado DO [address] [place] [address], [address], [facility] 5 14:53:41 Eczema of lower leg 042973952 Active 2024 Cristhian Delgado DO [address] [place] [address], [address], [facility] 5 16:55:51 Problem Notes None recorded. Medical Equipment None Reported. Allergies Allergen ID Allergen Name Allergen Category Reaction Reaction Severity Criticality Documentation Date Start Date Code Code System Note Provider Name and Address Organization Details Recorded Time 2905 peanut allergeni c extract food,medi cation Not available Not available Not available 05/11/2018 30837 8 RxNorm Sheila De Leon brigid [facility] 9 15:14:37 8332 Lyrica medicatio n rash Not available Not available 11/15/20232023 99870 1 RxNorm Landry Dunbar brigid [facility] 4 10:28:00 8490 raspberry extract food,medi cation Not available Not available Not available 12/29/2023 68352 69 RxNorm HIMA HUERTA [address] [place], [address], [facility] 4 10:47:33 9901 pregabali n medicatio n Not available Not available Not available 01/19/20252024 86993 2 RxNorm Not Available karolyn - External [...] CAPSULE BY MOUTH THREE TIMES A DAY 07/19 /2024 completed Not Available Not Available Not Available [...] completed Not Available Not Available Not Available [facility] 100,000 unit/gram topical powder 09/16 completed Not [...] Updated DateTime 5 171.45 cm 23.6 kg/m2 31721.6 3 g 71 /min 95 % 106/68 mm[Hg] Cristhian Delgado, DO [address] [place], [address] 5 11:20:11 Date Recorded Body height Body mass index (BMI) Body weight Heart rate Oxygen saturation Systolic And Diastolic Provider Name and Address Organization Details Last Updated DateTime 5 171.45 cm 24.4 kg/m2 18884.6 7 g 81 /min 91 % 130/80 mm[Hg] Daphne Ryan [facility] 5 14:36:10 Date Recorded Body height Heart rate Oxygen saturation Systolic And Diastolic Provider Name and Address Organization Details Last Updated DateTime 06/07/2024 171.45 cm 77 /min 93 % 129/60 mm[Hg] Trina Alcantar [facility] 06/07/2024 11:39:05 Date Recorded Body height Body mass index (BMI) Body weight Oxygen saturation Heart rate Systolic And Diastolic Provider Name and Address Organization Details Last Updated DateTime 5 171.45 cm 23.8 kg/m2 83285.2 2 g 97 % 78 /min 112/64 mm[Hg] SAM AWAD [facility] 5 16:15:29 Date Recorded Body height Body mass index (BMI) Body weight Heart rate Oxygen saturation Systolic And Diastolic Provider Name and Address Organization Details Last Updated DateTime 4 171.45 cm 23.6 kg/m2 99725.6 3 g 73 /min 92 % 110/80 mm[Hg] Trina Alcantar [facility] 4 11:13:34 Social History Question Answer Notes LastModified by Organizat ion Details LastModified Time Tobacco Smoking Status Current Every Day Smoker Sheila rainey [facility] 05/11/2018 15:18:01 What Was The Date Of Your Most Recent Tobacco Screening? 06/07/2024 [email or web address] Information not available 06/07/2024 Sex: Unknown Functional [...] 0.5 mL 03/27/19 22 completed Not Available [facility] 08/15/2022 22:39:22 Tdap 08/04/19 22 completed Not Available [facility] 08/15/2022 22:39:22 pneumococcal polysaccharide PPV23 07/18/19 21 completed Not Available [facility] 08/15/2022 22:39:22 influenza, unspecified formulation 04/23/19 17 completed Not Available [facility] 08/15/2022 22:39:22 zoster recombinant 10/03/19 25 completed Cristhian Delgado DO [address] [place] [address], [address], [facility] 10/10/2024 16:45:43 Past Encounters Encounter ID Performer Location Encounter Start Date Encounter Closed Date Diagnosis/Indication Diagnosis SNOMED-CT Code Diagnosis ICD10 Code Diagnosis IMO Codes Diagnosis Note Cristhian Delgado DO [facility] [address] [facility] [address] 07/11/2018 15:02:42 07/11/2018 16:21:04 Alcohol dependence 79896330 F10.20 written scripts vivitrol 380 mg IM Q 4 weeks ( pharmacy not located in system ) Chronic ob structive pulmonary disease 45403236 J44.9 Harmful pa ttern of use of alcohol 50190079 F10.10 long discussion to avoid isolation Use senior center, library, social center to seek psychiatri st-pt prefers to do on own look for SMART meetings stay in contact w/positive people in life get outside and walk History of deep vein thrombosis 601309594 Z86.718 on Eliquis Neuropathy 255020557 G62 .9 gabapentin written & faxed 300 mg BID [id number] Cristhian Delgado [facility] [address] [facility] [facility] [address] 09/28/2018 13:25:38 09/28/2018 14:06:07 Alcohol dependence 10590773 F10.20 currently in rehab Secondary peripheral neuropathy 577049 G63 2/2 etoh History of deep vein thrombosis 180068396 Z86.718 Tobacco de pendence syndrome 87136655 F17.200 [id number] Cristhian Delgado [facility] [address] [facility] [address] 10/26/2018 14:05:49 10/26/2018 16:00:43 History of deep vein thrombosis 748943510 Z86.718 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 has IVC filter Tobacco de pendence syndrome 00980320 F17.200 no plans to quit Neuropathy 503210385 G62 .9 gabapentin not helpful has low vitamin d will supplement then f.u Harmful pa ttern of use of alcohol 12520292 F10.10 currently sober x 9 days Acute conjunctivitis 537 78909 H10.31 current abx failure consider opth if second round not helpful Vitamin D deficiency 347 17058 E55.9 Onychomyco sis of toenails 584026366 B35.1 Screening procedure 2012 5006 Z13.9 Steatotic liver disease 542560371 K76.0 [id number] Cristhian Delgado [facility] [address] [address] 01/03/2019 10:26:01 01/03/2019 11:03:12 Secondary peripheral neuropathy 219718 G63 2/2 etoh Physical deconditioning 0497420663 9102 R68.89 Depressive disorder 3548 9007 F32.9 [id number] Cristhian Delgado [facility] [address] [place] [address] 02/07/2019 13:17:51 02/07/2019 13:59:18 Acute folliculitis 655137159 L73.9 Secondary peripheral neuropathy 557979 G63 2/2 etoh no difference in neuropathy [...] who doesn't visit Vitamin D deficiency 347 95073 E55.9 never received the letter regarding this lab result will send in vitamin d now also take vitamin d3 2000 units after completing this will recheck level in 12 weeks Tobacco user 376661430 Z 72.0 [id number] Cristhian Delgado [facility] [address] [facility] [address] 04/28/2019 15:03:46 04/28/2019 16:25:32 Chronic obstructive pulmonary disease 02910056 J44.9 acute exacerbati on of copd Secondary peripheral neuropathy 905441 G63 2/2 etoh no difference in neuropathy [...] who doesn't visit Vitamin D deficiency 347 14417 E55.9 completed the macrodose of vitamin d needs to start the vitamin d r Tobacco user 797941721 Z 72.0 Harmful pa ttern of use of alcohol 02684779 F10.10 currently sober again Gout 91470876 M10.9 History of deep vein thrombosis 410734111 Z86.718 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 has IVC filter Neuropathy 032298415 G62 .9 as above Alcohol dependence 43134 003 F10.20 sober Atopic dermatitis 932839 01 L20.9 Acute exac erbation of chronic obstructive pulmonary disease 057420282 J44.1 mitesh lamb as above for rash + [place] [id number] Cristhian Delgado [facility] [address] [facility] [address] 10/25/2019 15:02:33 10/25/2019 15:22:49 Harmful pattern of use of alcohol 83861546 F10.10 still drinking about 1 pint of hard liquor a day no plans on stopping or seeking help with this addiction advised to work on cutting back and drink water instead patient does not seem interested on doing this despite risks to his health will have patient call if he has another convulsio n Chronic ob structive pulmonary disease 66538265 J44.9 breathing is the same per patient not any worse, cough is the same as well Tobacco de pendence syndrome 24791954 F17.200 still smoking not ready to quit, no plans on quitting SARS-CoV-2 262473936 U07 .1 patient currently has a positive diagnosis of COVID told him to monitor symptoms and if he gets very sick again to go back to the hospital [id number] Cristhian Delgado [facility] [address] [facility], [place] [address] 01/03/2020 15:04:00 01/03/2020 16:04:29 Harmful pattern of use of alcohol 36322458 F10.10 still drinking about 2 pint of hard liquor a day did discuss with patient about setting up with a rehab center and working with his advisor patient was open to this idea and gave permission for me to speak with his advisor Alcohol withdrawal 39566 0000 F10.939 patient states every time he stops drinking he gets violently ill so him refuses to stop drinking at this point [id number] Cristhian Delgado [facility] [address] [facility], [place] [address] 03/06/2020 09:10:45 03/06/2020 15:51:21 Harmful pattern of use of alcohol 36567021 F10.10 still drinking about 2 pint of hard liquor a day did discuss with patient about setting up with a rehab center and working with his advisor patient unwilling to stop drinking because of the withdrawal afterwards did discuss in detail with pt that the drinking is contributi ng to his neurologic al issues Chronic ob structive pulmonary disease 70532016 J44.9 breathing is the same per patient not any worse, cough is the same as well does need refill of his inhalers Fall W19.XXXS patient reports he fell due to balance issues, weakness in nabila legs most likely related to his drinking will set him up with Dr. Aldana again for eval Injury of head 87611013 S09.90XS no LOC and CT at hospital showed no acute changes MRI done in april, will not need another MRI History of deep vein thrombosis 693965852 Z86.Miryam was on eliquis but stopped to do hx of brain bleed no ride to the hospital so he is unwilling to do a fu US to assess chronic DVT due to brain bleed because of blood thinner, he should not be on eliquis at this time but should have US to assess [id number] Cristhian Delgado [facility] [address] [facility] [employer] [facility] [place] [address] 04/19/2020 08:38:20 04/22/2020 15:44:19 [id number] Cristhian Delgado [facility] [address] [facility] [address] 06/12/2020 14:07:08 06/12/2020 15:18:50 Harmful pattern of use of alcohol 63421126 F10.10 still drinking about 2 pint of hard liquor a day did discuss with patient about setting up with a rehab center and working with his advisor patient unwilling to stop drinking because of the withdrawal afterwards did discuss in detail with pt that the drinking is contributi ng to his neurologic al issues Chronic ob structive pulmonary disease 56921742 J44.9 breathing is the same per patient not any worse, cough is the same as well Neuropathy 579511868 G62 .9 will try on the 800 mg qd as patient said this was effective will slowly tirtate up the medication dosage [id number] Cristhian Delgado [facility] [address] [facility] [address] 04/11/2021 14:50:50 04/11/2021 16:21:09 Chronic obstructive pulmonary disease 22653734 J41.0 breathing is the same per patient not any worse, cough is the same as well Alcohol withdrawal 45423 0000 F10.931 has not had a drink in 1 mo but does plan to drink again though per patient in moderation recommend ed to not drink at all Secondary peripheral neuropathy 738586 G63 restarted gabapentin Harmful pa ttern of use of alcohol 38183625 F10.121 monitoring progress with drinking Pain of le ft shoulder joint 9476769979 0212170 M25.512 improving with at home PT [id number] Cristhian Delgado [facility] [address] [facility],[place] [address] 09/17/2023 10:23:16 09/17/2023 11:04:03 Depression screening 510959347 Z13.31 SCREENING NEGATIVE Harmful pa ttern of use of alcohol 64067199 F10.121 on naloxone campral buspar zoloft Gout 05756420 M10.9 quiet now Neuropathy 052110405 G62 .9 had been on gabapentin Chronic ob structive pulmonary disease 86781002 J41.0 he is stable on the inhalers [id number] Cristhian Delgado [facility] [address] [facility],[place] [address] 10/18/2023 11:40:03 10/18/2023 12:58:27 Chronic obstructive pulmonary disease 40771637 J41.0 he is stable on the inhalers Harmful pa ttern of use of alcohol 59356984 F10.121 on naloxone campral buspar zoloft Tinea corporis 84001144 B35.4 between legs History of deep vein thrombosis 469511106 Z86.718 recurrent Insomnia 272206797 G47.0 0 [id number] Cristhian Delgado [facility] [address] [facility],[place] [address] 11/30/2023 10:27:17 11/30/2023 15:30:22 Acute exacerbation of chronic obstructive pulmonary disease [id number] J44.1 start on pred and z radha Chronic ob structive pulmonary disease 76592766 J41.0 needs refiil [id number] Cristhian Delgado [facility] [address],[place] [address] 12/29/2023 10:02:26 12/29/2023 15:40:20 Pre-surgery evaluation [id number] Z01.818 The patient was seen in the office today for pre-op evaluation . All medical conditions on patient's problem list were addressed and are currently stable, no interventi on needed at this time. Based on history and physical performed, the patient is cleared for surgery. Chronic ob structive pulmonary disease [id number] J41.0 mild exacerbati oncan start prednisone taper after surgery [id number] Cristhian Delgado [facility] [address],[place] [address] 01/19/2024 10:45:59 01/19/2024 11:55:43 Acute exacerbation of chronic obstructive pulmonary disease [id number] J44.1 seems stable now now acute changess Chronic ob structive pulmonary disease 84215268 J41.0 he is stable on the inhalers Neuropathy 927684729 G62 .9 had been on gabapentin Eczema 32668002 L30.9 Pain of bi lateral hands [id number] M79.642 M79.641 [id number] Cristhian Delgado [facility] [address],[place] [address] 01/17/2024 09:44:31 01/17/2024 11:46:28 Generalized rash [id number] R21 start on combinatio n treat of pred and anti-funga lhas a f/u on 01/18 with MB in officereco mmended him evaluate at that timeskin culture was negative, no staph infection [id number] Cristhian Delgado [facility] [address],[place] [address] 03/22/2024 11:00:25 03/22/2024 11:45:12 Chronic obstructive pulmonary disease 47194139 J41.0 he is stable on the inhalers COVID-19 [id number] U07.1 on medrol and azith getting better Acute exac erbation of chronic obstructive pulmonary disease 088100898 J44.1 seems stable now now acute changesdoi ng bettergive n spacer [id number] Cristhian Delgado [facility] [address],[place] [address] 05/19/2024 14:12:21 05/19/2024 15:20:28 Chronic obstructive pulmonary disease 89012376 J41.0 he is stable on the inhalers Nummular eczema 89952219 L30.0 Dislocatio n of shoulder joint 847282965 S43.006D Bilateral pain of joint of hands [id number] 5605809 M25.541 M25.542 Screening for malignant neoplasm of colon 744220630 Z12.11 Chronic bronchitis 62644 004 J42 Neuropathy 296435320 G62 .9 had been on gabapentin [id number] Cristhian Delgado [facility] [address],[place] [address] 06/07/2024 11:29:13 06/07/2024 12:15:01 Chronic obstructive pulmonary disease 72189948 J41.0 he is stable on the inhalers Dislocatio n of shoulder joint [id number] S43.006D Nummular eczema 67697625 L30.0 Depression screening 171 350901 Z13.31 SCREENING NEGATIVE Bilateral pain of joint of hands 9811753731 4500248 M25.541 M25.542 Acute exac erbation of chronic obstructive pulmonary disease 855813672 J44.1 seems stable now now acute changesdoi ng bettergive n spacer [id number] [facility] [address],[place] [address] 10/10/2024 15:56:56 10/11/2024 10:30:30 Depression screening 324017032 Z13.31 SCREENING NEGATIVE Harmful pa ttern of use of alcohol 58818365 F10.121 on naloxone campral buspar zoloft Chronic ob structive pulmonary disease 66525352 J41.0 he is stable on the inhalers Eczema of lower leg 7623 36595 L30.9 [id number] will use cream Secondary peripheral neuropathy 048606 G62.89 will cont gabapentin but consider change to duloxetine Health Concerns Section Related Observation LastModified by Organization Detai ls LastModified Time None Recorded Concern Status LastModified by Organization Details LastModified Time None Recorded Advance Directives Directive None Recorded Payers Insurance Date Sequence Insurance Name Policy Number Policy Ruiz Covered Member ID Ruiz Member ID Guarantor Name 05/19/2024 1 [facility] - DOS PRIOR TO 2022 - DUAL ELIGIBLE (MEDICARE REPLACEMENT/ADV ANTAGE - HMO) Edgardo Zavala [id number] Edgardo Zavala 05/19/2024 1 [place]: [employer] Edgardo Sena Sally [id number] Edgardo Zavala 01/16/2025 1 [facility] - DOS ON OR AFTER 2022 - MEDICARE [place]VANTAGE [place]MEDICARE REPLACEMENT/ADV ANTAGE - PPO) Edgardo Zavala [id number] Edgardo Zavala 05/19/2024 1 [place] PRIOR TO 2022 - [facility] (MEDICAID) Edgardo Sally [id number] Edgardo Zavala Notes Date Note Type Note Provider Name a nd Address Organization Details Recorded Time 4 text/html ROS as noted in the HPI here for rechkrelates that had a rsh for mult weeks creams not helpfulstill smokeshaving a prob with the rash not going away Cristhian Delgado DO [address] [place], [address], [facility] 01/19/2024 11:54:47 5 text/html ROS as noted in the HPI here for rechk of his lungs since having covid was seen twice in ER and actually signed out AMA on second visit was told to stay due to lower O2 sat but went hometoday O2 sat 95% Cristhian Delgado DO [address] [place], [address], [facility] 03/22/2024 11:38:17 5 text/html ROS as noted in the HPI hwere for rechk right shoulder is pretty bad as of late since the dislocation episode back in januaryrelates that he has also had a problem with his short term memoryhas noticed for several monthsals o the neuropathy has been worse Cristhian Delgado DO [address] [place], [address], [facility] 05/19/2024 15:07:19 5 text/html [...] his motorcycle again Cristhian Delgado DO [address] [place], [address], [facility] 06/07/2024 12:12:26 5 text/html [...] his motorcycle again Cristhian Delgado DO [address] [place], [address], [facility] 10/10/2024 16:56:27
--- NOTE | 2025-02-03 04:30 | ED.ALCOHOL ---
HPI - Alcohol General Chief Complaint: ETOH/Substance Use Stated Complaint: seeking ETOH Time Seen by Provider: 02/03/25 02:25 Source: patient and EMS Mode of arrival: EMS Limitations: no limitations History of Present Illness ED Provider: Dr. Yamel Bradley HPI narrative: Patient comes to the emergency room requesting detox for alcohol. Patient states that he drank 1 pt of [employer] prior to arrival. Patient states that couple of weeks ago he was diagnosed with broken ribs, still having a bit of pain, no shortness of breath, no new injuries or falls. Related Data Home Medications ?Medication ?Instructions ?Recorded ?Confirmed apixaban 5 mg tablet (Eliquis) 5 mg PO BID 08/29/22 01/24/25 albuterol sulfate 90 mcg/actuation 2 puff inhalation Q4H PRN 01/17/25 01/17/25 aerosol inhaler Shortness Of Breath buspirone 7.5 mg tablet 7.5 mg PO TID 01/17/25 01/17/25 hydroxyzine pamoate 50 mg capsule 50 mg PO BID 01/17/25 01/24/25 melatonin 5 mg tablet 5 - 10 mg PO BEDTIME PRN Sleep 01/17/25 01/17/25 mirtazapine 15 mg tablet 15 mg PO BEDTIME 01/17/25 01/17/25 prazosin 1 mg capsule 1 mg PO BEDTIME 01/17/25 01/17/25 sertraline 100 mg tablet 200 mg PO DAILY 01/17/25 01/17/25 Previous Rx's ?Medication ?Instructions ?Recorded fluticasone fur. 100 mcg-umeclid 1 inh inhalation RDAILY 30 days #1 01/22/25 62.5 mcg-vilant 25 mcg ea inhalat.powder (Trelegy Ellipta) folic acid 1 mg tablet 1 mg PO DAILY 30 days #30 tabs 01/22/25 naltrexone 50 mg tablet 50 mg PO DAILY 30 days #30 tabs 01/22/25 nicotine 7 mg/24 hr daily 7 mg transdermal DAILY 30 days #1 01/22/25 transdermal patch ea thiamine mononitrate (vit B1) 100 100 mg PO DAILY 30 days #30 tabs 01/22/25 mg tablet acetaminophen 500 mg tablet 1,000 mg (2 x 500 mg) PO Q6H PRN 01/25/25 pain #30 tabs lidocaine 5 % topical patch 1 patch topical DAILY #15 ea 01/25/25 Allergies Allergy/AdvReac Type Severity Reaction Status Date / Time Peanut Butter Allergy Facial Verified 02/03/25 01:58 Swelling raspberry Allergy Facial Verified 02/03/25 01:58 Swelling Review of Systems Review of Systems: Constitutional : No Weight loss, No Fever, No Chills, No Night Sweats, No Fatigue, No Malaise ENT/Mouth : No Hearing loss, No Ear Pain, No Nasal Congestion, No Sinus Pain, No Hoarseness, No sore throat, No Rhinorrhea, No Swallowing Difficulty Eyes: No Eye Pain, No Swelling, No Redness, No Foreign Body, No Discharge, No Vision Changes Cardiovascular : No Chest Pain, No SOB, No Dyspnea on Exertion, No Orthopnea, No Edema, No Palpitations Respiratory : No Cough, No Sputum, No Wheezing, No Smoke Exposure, No Dyspnea Gastrointestinal : No Nausea, No Vomiting, No Diarrhea, No Constipation, No abdominal Pain, No Hematochezia, No Melena Genitourinary : no irregular bleeding, No Dysuria, No Urinary Frequency, No Hematuria, No Urinary Incontinence, No Urgency, No Flank Pain, No Urinary Flow Changes, No Hesitancy Musculoskeletal : No joint pain, No Myalgias, No Joint Swelling Skin : No Skin Lesions, No rash Neuro : No Weakness, No Numbness, No Paresthesias, No Loss of Consciousness, No Dizziness, No Headache Psych : No Anxiety/Panic, No Depression, No SI/HI/AH/VH, admits to alcohol abuse and dependence Heme/Lymph: No Bruising, No Bleeding,No Lymphadenopathy Endocrine : No Polyuria, No Polydipsia, No Temperature Intolerance [facility] Past Medical History Medical History Alcohol withdrawal Alcohol dependence Presence of IVC filter Acute and chronic respiratory failure with hypoxia COPD (chronic obstructive pulmonary disease) Alcohol use disorder, severe, dependence Tobacco abuse Subdural hematoma DVT (deep venous thrombosis) COPD (chronic obstructive pulmonary disease) Asthma Neuropathy Alcohol abuse Social History Social History Household Members: None Housing: House Do you presently have visiting nurse or other home services: No Alcohol intake: current Alcohol intake frequency: 3 or more drinks per day Alcohol type: hard liquor Comment: pt refuses high fall risk interventions Patient Tobacco Use Status: Current everyday Tobacco user Tobacco use type: Cigarette Cigarette Packs Per Day: 1 Cigarettes Per Day: 20.0 e-Cigarette/Vaping Use: Never Used Second Hand Smoke Exposure: No Substance Use Type: Marijuana Advance Directives: Yes Advance Directives on File: Yes Advance Directives Date on File: 03/05/22 service: No Current occupational status: disabled Physical Exam ED Exam Exam: Appearance: Alert. Oriented X3. No acute distress. Eyes: Pupils equal, round and reactive to light. ENT: Pharynx normal. Neck: Normal inspection. Neck supple. No lymph nodes noted. No crepitus CVS: Normal heart rate and rhythm. Pulses normal. Normal S1 and S2 Respiratory: No respiratory distress. Breath sounds normal. No Wheezing. No rales Abdomen: Soft and nontender. No rigidity. No distention. Skin: Skin warm and dry. Normal skin color. Normal skin turgor. Extremities: No lower extremity edema. No Lacerations. No Rash Neuro: Oriented X 3. No motor deficit. No sensory deficit. Moving all extremities. No slurred speech. CN 2 through 12 grossly intact Psych: calm, cooperative, normal affect Vital Signs: Vital Signs - 24 hr 02/03/25 01:57 02/03/25 04:00 02/03/25 06:22 Temperature 97.7 F 97.4 F Pulse Rate 94 87 78 Respiratory Rate 18 16 14 Blood Pressure 120/69 98/58 L 110/64 Pulse Oximetry 98 95 98 Oxygen Delivery Method Room Air Room Air Room Air 02/03/25 09:11 02/03/25 10:38 Temperature 97.6 F 97.6 F Pulse Rate 100 97 Respiratory Rate 18 16 Blood Pressure 121/67 128/74 Pulse Oximetry 90 L 92 Oxygen Delivery Method Room Air Room Air BMI result Body Mass Index 19.8 Course Course Course Narrative: Patient is awake, alert and oriented x3, able to have a reasonable conversation. Patient denies any falls, no injuries, denies SI or HI. Patient requesting detox. Patient has gone to take stopped multiple times and ends up leaving against medical advice. Patient will like to try again Reevaluation(s) Reevaluation #1: 02/03/2025 07:03 patient is waiting for crisis team patient is requesting detox, stable overnight vital signs normal as 06:22 Dr. Montero 02/03/2025 0901: Patient was seen by the comprehensive care team, and will attempt to find a detox bed for patient. We will continue to monitor. Time: 07:04 Reevaluation #2: Patient was seen by the power and recovery supervisor bed was found in the detox at this time we will discharge the patient to detox this will end of the ED observation status 02/03/2025 13:00 Dr. Montero Medical Decision Making Medical Decision Making MDM Narrative: Toxicology report shows an ETOH level of 276 I reviewed patient's medical records. CT scan of 01/24/2025 shows bilateral rib fractures, subacute. X-rays of 01/29/2025, did not show any acute abnormality. Patient states that he does not have any new symptoms since then. Care team consult pending Physician observation started at 03:00 Differential Diagnosis Differential Diagnoses: The differential diagnosis associated with the presentation includes (Alcohol intoxication, alcohol dependence) Lab Data Labs: Lab Results 02/03/25 Range/Units 02:33 Ethyl Alcohol 276 mg/dL Critical Care Time Critical Care Time Critical Care Time: Yes Total Critical Care Time: 35 Attestation: I have personally provided critical care time. Time includes review of lab data, radiology results, discussion with consultants, and monitoring for potential decompensation. Intervention performed as documented. Discharge Plan Discharge Clinical Impression: Alcoholic intoxication, Alcohol dependence Prescriptions: No Action Eliquis 5 mg tablet 5 mg PO BID prazosin 1 mg capsule 1 mg PO BEDTIME sertraline 100 mg tablet 200 mg PO DAILY hydroxyzine pamoate 50 mg capsule 50 mg PO BID buspirone 7.5 mg tablet 7.5 mg PO TID mirtazapine 15 mg tablet 15 mg PO BEDTIME albuterol sulfate 90 mcg/actuation HFA aerosol inhaler 2 puff inhalation Q4H PRN (Reason: Shortness Of Breath) melatonin 5 mg tablet 5 - 10 mg PO BEDTIME PRN (Reason: Sleep) folic acid 1 mg Tablet 1 mg PO DAILY 30 Days Qty: 30 0RF nicotine 7 mg/24 hr Patch 24 Hour 7 mg transdermal DAILY 30 Days Qty: 1 0RF thiamine mononitrate (vit B1) 100 mg Tablet 100 mg PO DAILY 30 Days Qty: 30 0RF Trelegy Ellipta 100-62.5-25 mcg Blister With Device 1 inh inhalation RDAILY 30 Days Qty: 1 0RF naltrexone 50 mg tablet 50 mg PO DAILY 30 Days Qty: 30 0RF lidocaine 5 % adhesive patch,medicated 1 patch topical DAILY Qty: 15 0RF Rx Instructions: leave on most painful area for up to 12 hrs acetaminophen 500 mg tablet 1,000 mg PO Q6H PRN (Reason: pain) Qty: 30 0RF Print Language: Urdu
--- NOTE | 2025-02-03 09:32 | MHC.RECOVRN ---
ATS (detox) referrals made per pt request.
--- NOTE | 2025-02-03 13:15 | MHC.RECOVRN ---
Pt accepted for detox. Will be going to [facility] in [place], [place] for tx of AUD. He will be transported there via Lyft. Dr. Montero and primary RN notified.
== END 2025-02-03 14:00 | disposition home or self-care (01) ==
PROVIDERS: Emergency Medicine; Emergency Provider Emergency Medicine; PCP Internal Medicine
DX: F10.229 Alcohol dependence with intoxication, unspecified (principal); F17.210 Nicotine dependence, cigarettes, uncomplicated; Y90.8 Blood alcohol level of 240 mg/100 ml or more; Z79.899 Other long term (current) drug therapy; Z51.81 Encounter for therapeutic drug level monitoring
CPT/HCPCS: 36415; 80307; 99284; S9485

== ENCOUNTER 2025-02-11 22:27 | Emergency (ER) | payer OTHER, SELFPAY ==
[2025-02-11 22:37] VITALS: BP 109/61; PULSE 86; O2SAT 96; BMI 22.0
[2025-02-11 22:40] VITALS: BP 101/57; PULSE 77; RESP 18; TEMP 36.3; O2SAT 94
--- NOTE | 2025-02-11 23:44 | ED.ALCOHOL ---
HPI - Alcohol General Chief Complaint: ETOH/Substance Use Stated Complaint: etoh Time Seen by Provider: 02/11/25 22:40 History of Present Illness HPI narrative: Patient is 64 years old presents today after drinking. Patient denies any specific complaints. He does want detox. He drank prior to arrival. Patient has a history of COPD history of neuropathy walks with a cane which is chronic. No new pain. Related Data Home Medications ?Medication ?Instructions ?Recorded ?Confirmed apixaban 5 mg tablet (Eliquis) 5 mg PO BID 08/29/22 01/24/25 albuterol sulfate 90 mcg/actuation 2 puff inhalation Q4H PRN 01/17/25 01/17/25 aerosol inhaler Shortness Of Breath buspirone 7.5 mg tablet 7.5 mg PO TID 01/17/25 01/17/25 hydroxyzine pamoate 50 mg capsule 50 mg PO BID 01/17/25 01/24/25 melatonin 5 mg tablet 5 - 10 mg PO BEDTIME PRN Sleep 01/17/25 01/17/25 mirtazapine 15 mg tablet 15 mg PO BEDTIME 01/17/25 01/17/25 prazosin 1 mg capsule 1 mg PO BEDTIME 01/17/25 01/17/25 sertraline 100 mg tablet 200 mg PO DAILY 01/17/25 01/17/25 Previous Rx's ?Medication ?Instructions ?Recorded fluticasone fur. 100 mcg-umeclid 1 inh inhalation RDAILY 30 days #1 01/22/25 62.5 mcg-vilant 25 mcg ea inhalat.powder (Trelegy Ellipta) folic acid 1 mg tablet 1 mg PO DAILY 30 days #30 tabs 01/22/25 naltrexone 50 mg tablet 50 mg PO DAILY 30 days #30 tabs 01/22/25 nicotine 7 mg/24 hr daily 7 mg transdermal DAILY 30 days #1 01/22/25 transdermal patch ea thiamine mononitrate (vit B1) 100 100 mg PO DAILY 30 days #30 tabs 01/22/25 mg tablet acetaminophen 500 mg tablet 1,000 mg (2 x 500 mg) PO Q6H PRN 01/25/25 pain #30 tabs lidocaine 5 % topical patch 1 patch topical DAILY #15 ea 01/25/25 Allergies Allergy/AdvReac Type Severity Reaction Status Date / Time Peanut Butter Allergy Facial Verified 02/11/25 22:40 Swelling raspberry Allergy Facial Verified 02/11/25 22:40 Swelling Review of Systems Review of Systems: Positive history neuropathy no chest pain or shortness of breath positive EtOH Yes all other systems are reviewed and are negative [facility] Past Medical History Attestation statement: The following information was validated with the patient. Medical History Alcohol withdrawal Alcohol dependence Presence of IVC filter Acute and chronic respiratory failure with hypoxia COPD (chronic obstructive pulmonary disease) Alcohol use disorder, severe, dependence Tobacco abuse Subdural hematoma DVT (deep venous thrombosis) COPD (chronic obstructive pulmonary disease) Asthma Neuropathy Alcohol abuse Social History Social History Household Members: None Housing: House Do you presently have visiting nurse or other home services: No Alcohol intake: current Alcohol intake frequency: 3 or more drinks per day Alcohol type: hard liquor Comment: pt refuses high fall risk interventions Patient Tobacco Use Status: Current everyday Tobacco user Tobacco use type: Cigarette Cigarette Packs Per Day: 1 Cigarettes Per Day: 20.0 Smoked in Last 30 Days: Yes e-Cigarette/Vaping Use: Never Used Second Hand Smoke Exposure: No Use of substances other than those prescribed or required for medical reasons: No Substance Use Type: Marijuana Advance Directives: Yes Advance Directives on File: Yes Advance Directives Date on File: 03/05/22 service: No Current occupational status: disabled Physical Exam ED Exam Exam: Appearance: Alert. Oriented X3. No acute distress. Eyes: Pupils equal, round and reactive to light. ENT: Pharynx normal. Neck: Normal inspection. Neck supple. No lymph nodes noted. No crepitus CVS: Normal heart rate and rhythm. Pulses normal. Normal S1 and S2 Respiratory: No respiratory distress. Breath sounds normal. No Wheezing. No rales Abdomen: Soft and nontender. No rigidity. No distention. good BS x4 Skin: Skin warm and dry. Normal skin color. Normal skin turgor. Extremities: No lower extremity edema. Neurovascular intact to all extremities. No Lacerations. No Rash Neuro: Oriented X 3. No motor deficit. No sensory deficit. Moving all extermities. No slurred speech Vital Signs: Vital Signs - 24 hr 02/11/25 22:40 02/12/25 06:20 02/12/25 08:00 Temperature 97.3 F 98.6 F 97.3 F Pulse Rate 77 106 H 108 H Respiratory Rate 18 18 18 Blood Pressure 101/57 L 104/58 L 133/69 Pulse Oximetry 94 93 97 Oxygen Delivery Method Room Air Room Air Room Air BMI result Body Mass Index 22.0 Course Course Course Narrative: 8:31 AM 02/12/2025 (Ana Zhang BELT DRESSER): Patient was in the ED overnight while detox placement was pending. Patient now stating that he wishes to be discharged. He is awake, alert, oriented, ambulating with steady gait, and appears clinically sober. Will discharge at this time. Medical Decision Making Medical Decision Making MDM Narrative: Grossly intoxicated awaiting clinical sobriety labs were checked a couple of days ago patient's alcohol was in the 200 range he admits to drinking again today. Now wants detox will get coach Consult. In stable condition. Lab Data 02/12/25 00:17 02/12/25 00:17 Labs: Lab Results 02/12/25 Range/Units 00:17 WBC 4.6 L (4.8-10.8) X10*3/uL RBC 3.98 L (4.60-5.80) X10*6/uL Hgb 12.5 L (14.0-18.0) g/dl Hct 37.0 L (42.0-52.0) % MCV 93.0 (80.0-98.0) fL MCH 31.4 (27.0-33.0) pg MCHC 33.8 (31.0-36.0) g/dl RDW 15.8 (11.0-16.0) % Plt Count 188 D (160-400) X10*3/uL MPV 9.2 L (9.4-12.4) fL Immature Gran % (Auto) 0.4 (0.0-0.4) % Neut % (Auto) 59.1 (45-73) % Lymph % (Auto) 21.8 (20-40) % [place] % (Auto) 15.9 H (2-11) % Eos % (Auto) 1.7 (0-4) % Baso % (Auto) 1.1 (0-2) % Lymph # (Auto) 1.0 L (1.2-4.9) X10*3/uL [place] # (Auto) 0.7 (0.1-1.2) X10*3/uL Eos # (Auto) 0.1 (0.0-0.4) X10*3/uL Baso # (Auto) 0.1 (0.0-0.2) X10*3/uL Abs Immat Gran (auto) 0.02 (0.00-0.03) X10*3/uL Absolute Neuts (auto) 2.7 (2.0-8.3) x10*3/uL Absolute Nucleated RBC 0.000 (0.0-0.012) X10*3/uL Nucleated RBC % (auto) 0.0 (0.0-0.2) /100WBC Sodium 140 (135-145) mmol/L Potassium 3.9 (3.3-5.1) mmol/L Chloride 104 (96-108) mmol/L Carbon Dioxide 24 (22-29) mmol/L Anion Gap 16 (12-20) BUN 9 (9-16) mg/dL Creatinine 0.56 (0.5-1.4) mg/dL Estim Creat Clear Calc 123.9 Estimated GFR > 60 Random Glucose 84 (60-115) mg/dL Calcium 8.8 (8.4-10.2) mg/dL Ethyl Alcohol 256 mg/dL Discharge Plan Discharge Clinical Impression: Alcoholic intoxication Patient Disposition: Home, Self-Care Instructions: Alcohol Intoxication (DC) Additional Instructions: Alcohol use disorder You were seen in the Emergency Department today for treatment of alcohol use disorder.? You may have been given medications to help with your withdrawal symptoms.? Please do not drink alcohol with them. This is very dangerous and can cause respiratory depression or other adverse reactions depending on the medication. If you would like to cut down or stop your alcohol use please consider calling our outpatient Addiction Treatment office:? [facility] (M-F [id number] [address] [place] [address] You have also been given a list of treatment providers in the area that can assist as well.? If you experience seizures, vomiting blood, black stools, falls, severe headache, chest pain, fevers, trouble breathing, hallucinations or any other concerns you need to call 911 or seek immediate care. Please stay hydrated. Prescriptions: No Action Eliquis 5 mg tablet 5 mg PO BID prazosin 1 mg capsule 1 mg PO BEDTIME sertraline 100 mg tablet 200 mg PO DAILY hydroxyzine pamoate 50 mg capsule 50 mg PO BID buspirone 7.5 mg tablet 7.5 mg PO TID mirtazapine 15 mg tablet 15 mg PO BEDTIME albuterol sulfate 90 mcg/actuation HFA aerosol inhaler 2 puff inhalation Q4H PRN (Reason: Shortness Of Breath) melatonin 5 mg tablet 5 - 10 mg PO BEDTIME PRN (Reason: Sleep) folic acid 1 mg Tablet 1 mg PO DAILY 30 Days Qty: 30 0RF nicotine 7 mg/24 hr Patch 24 Hour 7 mg transdermal DAILY 30 Days Qty: 1 0RF thiamine mononitrate (vit B1) 100 mg Tablet 100 mg PO DAILY 30 Days Qty: 30 0RF Trelegy Ellipta 100-62.5-25 mcg Blister With Device 1 inh inhalation RDAILY 30 Days Qty: 1 0RF naltrexone 50 mg tablet 50 mg PO DAILY 30 Days Qty: 30 0RF lidocaine 5 % adhesive patch,medicated 1 patch topical DAILY Qty: 15 0RF Rx Instructions: leave on most painful area for up to 12 hrs acetaminophen 500 mg tablet 1,000 mg PO Q6H PRN (Reason: pain) Qty: 30 0RF Print Language: Citizen [place]
[2025-02-12 00:24] LABS: Hematocrit 37.0 % (42.0-52.0); Hemoglobin 12.5 g/dl (14.0-18.0); Imm Gran Abs Auto 0.02 X10*3/uL (0.00-0.03); Imm Gran Pct Auto 0.4 % (0.0-0.4); Lymphocytes Absolute Auto 1.0 X10*3/uL (1.2-4.9); MANUAL DIFF FLAG NO; Mean Corpuscular HGB Conc 33.8 g/dl (31.0-36.0); Mean Corpuscular Hemoglobin 31.4 pg (27.0-33.0); Mean Corpuscular Volume 93.0 fL (80.0-98.0); NRBC Abs Auto 0.000 X10*3/uL (0.0-0.012); NRBC Pct Auto 0.0 /100WBC (0.0-0.2); Platelet Count 188 X10*3/uL (160-400); Red Blood Count 3.98 X10*6/uL (4.60-5.80); White Blood Count 4.6 X10*3/uL (4.8-10.8)
[2025-02-12 00:38] LABS: Anion Gap 16 (12-20); Blood Urea Nitrogen 9 mg/dL (9-16); Calcium 8.8 mg/dL (8.4-10.2); Carbon Dioxide 24 mmol/L (22-29); Chloride 104 mmol/L (96-108); Creatinine Clr Calc Pharmacy 123.9; Estimated Glomerular Filt Rate > 60; Potassium 3.9 mmol/L (3.3-5.1); Sodium 140 mmol/L (135-145)
--- OUTSIDE RECORDS SUMMARY | 2025-02-12 01:13 | XMS_ITS | Data Portability ---
Author Organization [facility] Telehealth Patient Home Address [address] [place] [address] Assessment Encounter Date Assessment Date Assessment LastModified by Organization Details LastModified Time 01/19/2024 01/19/2024 [id number] [place] [id number] ([employer]) MDM HIGH MUST MEET 2 OUT OF [...] COVERED Not available 01/19/2024 11:54:32 03/22/2024 03/22/2024 [id number] [place] [id number] ([employer]) MDM MODERATE MUST MEET 2 OUT OF [...] COVERED Not available 03/22/2024 11:36:53 05/19/2024 05/19/2024 [id number] [place] [address] ([employer]N) MDM HIGH MUST MEET 2 OUT OF [...] COVERED Not available 05/19/2024 15:01:00 06/07/2024 06/07/2024 [id number] [place] [id number] (WE[employer]N) MDM MODERATE MUST MEET 2 OUT OF [...] COVERED Not available 06/07/2024 12:03:37 10/10/2024 10/10/2024 [id number] [place] [address] ([employer]N) MDM MODERATE MUST MEET 2 OUT OF [...] vitamin D, 25-hydroxy, total, serum 2024 025 [facility], [address] [place] [address], [address], 12:27:32 vitamin B12 + folate, serum or blood 2024 025 [facility], [address] [place] [address], [address], 12:30:46 CMP, serum or plasma 2024 025 [facility], [address] [place] [address], [address], 12:30:45 Referral orthopedic surgeon referral 2024 025 vamshi Simpson MD, [address] [facility] [address], [place], [address], 09:07:33 gastroenter ologist referral - routine colonoscopy 2024 025 aravind Parra MD, [address] [facility] [address], [place], [address], 09:35:00 Procedures None recorded. Surgeries None recorded. Imaging XR, hand, 3 or more view 2024 025 [facility] ([facility]), [address] [place], [address], 08:24:58 MRI, shoulder, w/o contrast 2024 025 [facility] ([facility]), [address] [place], [address], 5 08:26:15 XR, hand, 3 or more view 2023 024 [facility] ([facility]), [address] [place], [address], 4 08:29:38 Medication Orders triamcinolo ne acetonide 0.1 % topical cream 2024 025 [id number], [address] [place], [address], 5 16:46:57 azithromyci n 250 mg tablet 2024 025 [id number], [address] [place], [address], 5 12:12:19 azithromyci n 250 mg tablet 2024 025 [facility], [address] [place], [address], 5 14:59:57 triamcinolo ne acetonide 0.1 % topical cream 2024 025 [facility], [address] [place], [address], 5 15:02:20 triamcinolo ne acetonide 0.1 % topical cream 2023 024 [id number], [address] [place], [address], 4 11:51:47 Multivitami n 50 Plus tablet 2023 024 [id number], [address] [place], [address], 4 11:50:00 Patient TargetsNo targets recorded. Patient Instructions Encounter Date Encounter Id Patient Instructions Last Modified By Organization Details Last Modified Time 01/19/2024 [id number] chronic obstructive pulmonary disease (COPD): care instructions Not available 01/19/2024 11:49:57 learning about copd and how to prevent lung infections Not available 01/19/2024 11:49:57 pulse oximetry* Not available 01/19/2024 11:49:57 neuropathic pain : care instructions Not available 01/19/2024 11:49:57 03/22/2024 [id number] pulse oximetry* KAROLYN Not available 03/22/2024 11:49:54 05/19/2024 [id number] pulse oximetry* Not available 05/19/2024 14:59:35 dislocated shoulder: care instructions Not available 05/19/2024 14:59:35 shoulder dislocation: rehab exercises Not available 05/19/2024 14:59:35 neuropathic pain : care instructions Not available 05/19/2024 15:02:31 06/07/2024 [id number] pulse oximetry* KAROLYN Not available 06/07/2024 11:42:18 10/10/2024 [id number] pulse oximetry* Not available 10/10/2024 16:46:54 Reason for Referral Reconstructive Surgeon Referral for Screening for malignant neoplasm of [...] try* Result 92 Not Available [facility] [address], [place], [address], 01/14/2024 11:32:45 03/22/19 25 03/22/2024 pulse oxime try* Result 95 Not Available [facility] [address], [place], [address], 03/14/2024 11:54:52 05/20/19 25 05/19/2024 pulse oxime try* Result 91% Not Available [facility] [address], [place], [address], 05/17/2024 16:20:55 06/08/19 25 06/07/2024 pulse oxime try* Result 93 Not Available [facility] [address] [facility], [place], [address], 06/04/2024 08:15:20 10/11/1910/10/2024 pulse oxime try* Result 97 Not Available [facility] [address], [place], [address], 10/10/2024 07:45:39 06/06/19 25 06/01/2024 MRI, shoul georgina, w/o contr ast No observ ation record ed. [facility] Department [address] [place], [address], 06/05/2024 15:20:13 10/27/1910/26/2024 XR, shoul georgina No observ ation record ed. [address] (Medical Records) [address] [place], [address], 10/27/2024 09:20:23 10/27/1910/26/2024 CT, angio gram, chest + abdom en + pelvi s, w/ contr ast No observ ation record ed. [address] (Medical Records) [address] [place], [address], 10/27/2024 09:20:53 10/28/19 25 10/26/2024 CT, angio gram, chest , w/ contr ast No observ ation record ed. [email or web address] [facility] (Medical Records) [address] [place], [address], 10/27/2024 10:02:41 12/19/19 25 12/18/2024 imagi ng/di agnos tic resul t No observ ation record ed. [email or web address] [facility] (Medical Records) [address] [place], [address], 12/19/2024 08:50:10 01/05/20 25 01/04/2025 XR, chest , 2 view No observ ation record ed. [address] (Medical Records) [address] [facility] [place], [address], 01/04/2025 16:40:25 01/25/20 25 01/24/2025 XR, humer us No observ ation record ed. [facility] (Medical Records) [address] [facility] [place], [address], 01/24/2025 16:09:25 01/25/20 25 01/24/2025 XR, shoul georgina No observ ation record ed. [facility] (Medical Records) [address] [facility] [place], [address], 01/24/2025 16:09:40 01/25/20 25 01/24/2025 XR, hand, 3 or more view No observ ation record ed. [address] (Medical Records) [address] [place], [address], 01/24/2025 15:51:21 01/25/20 25 01/24/2025 XR, hand, 3 or more view No observ ation record ed. [address] (Medical Records) [address] [place], [address], 01/24/2025 15:51:32 01/25/20 25 01/24/2025 CT, head + brain , w/o contr ast No observ ation record ed. [facility] (Medical Records) [address] [place], [address], 01/25/2025 09:00:43 01/25/2001/24/2025 CT, cervi octavio spine , w/o contr ast No observ ation record ed. [facility] (Medical Records) [address] [place], [address], 01/25/2025 09:01:14 01/25/2001/24/2025 CT, chest , w/ contr ast No observ ation record ed. [facility] (Medical Records) [address] [facility], [place], [address], 01/25/2025 09:01:41 01/30/2001/29/2025 XR, chest , 2 view No observ ation record ed. [facility] (Medical Records) [address] [place], [address], 01/29/2025 06:35:30 Result Notes None recorded. Problems Name Problem SNOMED Code Status Onset Date Resolution Date Notes Provider Name and Address Organization Details Recorded Time Chronic obstructi ve pulmonary disease 69863949 Active 2018 Sheila rainey [facility] 9 15:16:29 Neuropath y 157892626 Active 2018 Sheila raieny [facility] 9 15:16:41 Gout 23389932 Active 2018 Sheila rainey [facility] 9 15:16:48 History of gallstone s 101871306 Active 2018 Sheila rainey [facility] 9 15:17:04 History of deep vein thrombosi s 089915909 Active 2018 s/p IVC filter Jennifer Dalton, [facility] [address] [place], [address], [facility] 9 14:35:19 Harmful pattern of use of alcohol 46279325 Active 2018 Kimberly Coelho NP, S [address] [place] [address], [address], [facility] 9 16:45:28 Tobacco dependenc e syndrome 91805156 Active 2018 Kimberly Coelho NP, S [address] [place] [address], [address], [facility] 9 16:13:47 Tinea corporis 16388891 Active 2023 Cristhian Delgado, [address] [place] [address], [address], [facility] 4 12:10:21 Insomnia 945289920 Active 2023 Cristhian Delgado DO [address] [place] [address], [address], [facility] 4 12:17:44 Secondary periphera l neuropath y 901887 Active 2023 Cristhian Delgado DO [address] [place] [address], [address], [facility] 4 22:16:11 Acute exacerbat ion of chronic obstructi ve pulmonary disease 818992591 Active 2023 HIMA HUERTA [address] [place] [address], [address], [facility] 4 15:05:32 Generaliz ed rash 944233644 Active 2023 HIMA HUERTA [address] [place] [address], [address], [facility] 4 10:59:16 Depressiv e disorder 47257371 Active 2023 HIMA HUERTA [address] [place] [address], [address], [facility] 4 10:26:22 Eczema 98351459 Active 2023 rCisthian Delgado DO [address] [place] [address], [address], [facility] 4 11:50:30 Pain of bilateral hands 00669645013 451293 Active 2023 Cristhian Delgado DO [address] [place] [address], [address], [facility] 4 11:52:35 Pruritic rash 52282556 Active 2023 Cristhian Delgado DO [address] [place] [address], [address], [facility] 4 21:26:20 COVID-19 868564730 Active 2024 Cristhian Delgado DO [address] [place] [address], [address], [facility] 5 11:37:01 Nummular eczema 64128013 Active 2024 Cristhian Delgado DO [address] [place] [address], [address], [facility] 5 14:51:23 Dislocati on of shoulder joint 982717237 Active 2024 Cristhian Delgado DO [address] [place] [address], [address], [facility] 5 14:52:22 Dislocati on of shoulder joint 483096440 Active 2024 Cristhian Delgado DO [address] [place] [address], [address], [facility] 5 14:52:26 Bilateral pain of joint of hands 30301083623 800299 Active 2024 Cristhian Delgado DO [address] [place] [address], [address], [facility] 5 14:53:41 Eczema of lower leg 755281858 Active 2024 Cristhian Delgado DO [address] [place] [address], [address], [facility] 5 16:55:51 Problem Notes None recorded. Medical Equipment None Reported. Allergies Allergen ID Allergen Name Allergen Category Reaction Reaction Severity Criticality Documentation Date Start Date Code Code System Note Provider Name and Address Organization Details Recorded Time 2905 peanut allergeni c extract food,medi cation Not available Not available Not available 05/11/2018 94149 8 RxNorm Sheila De Leon brigid [facility] 9 15:14:37 8332 Lyrica medicatio n rash Not available Not available 11/15/20232023 80193 1 RxNorm Landry Dunbar brigid [facility] 4 10:28:00 8490 raspberry extract food,medi cation Not available Not available Not available 12/29/2023 29203 69 RxNorm HIMA HUERTA [address] [place], [address], [facility] 4 10:47:33 9901 pregabali n medicatio n Not available Not available Not available 01/19/20252024 97653 2 RxNorm Not Available karolyn - External [...] completed Not Available Not Available Not Available [facility] 100,000 unit/gram topical powder 09/16 completed [...] Updated DateTime 5 171.45 cm 23.6 kg/m2 92868.6 3 g 71 /min 95 % 106/68 mm[Hg] Cristhian Delgado, DO [address] [place], [address] 5 11:20:11 Date Recorded Body height Body mass index (BMI) Body weight Heart rate Oxygen saturation Systolic And Diastolic Provider Name and Address Organization Details Last Updated DateTime 5 171.45 cm 24.4 kg/m2 66564.6 7 g 81 /min 91 % 130/80 mm[Hg] Daphne Ryan [facility] 5 14:36:10 Date Recorded Body height Heart rate Oxygen saturation Systolic And Diastolic Provider Name and Address Organization Details Last Updated DateTime 06/07/2024 171.45 cm 77 /min 93 % 129/60 mm[Hg] Trina Alcantar [facility] 06/07/2024 11:39:05 Date Recorded Body height Body mass index (BMI) Body weight Oxygen saturation Heart rate Systolic And Diastolic Provider Name and Address Organization Details Last Updated DateTime 5 171.45 cm 23.8 kg/m2 22199.2 2 g 97 % 78 /min 112/64 mm[Hg] SAM AWAD [facility] 5 16:15:29 Date Recorded Body height Body mass index (BMI) Body weight Heart rate Oxygen saturation Systolic And Diastolic Provider Name and Address Organization Details Last Updated DateTime 4 171.45 cm 23.6 kg/m2 51192.6 3 g 73 /min 92 % 110/80 mm[Hg] Trina Alcantar [facility] 4 11:13:34 Social History Question Answer Notes LastModified by Organizat ion Details LastModified Time Tobacco Smoking Status Current Every Day Smoker Sheila rainey [facility] 05/11/2018 15:18:01 What Was The Date [...] 03/27/19 22 completed Not Available [facility] 08/15/2022 22:39:22 Tdap 08/04/19 22 completed Not Available [facility] 08/15/2022 22:39:22 pneumococcal polysaccharide PPV23 07/18/19 21 completed Not Available [facility] 08/15/2022 22:39:22 influenza, unspecified formulation 04/23/19 17 completed Not Available [facility] 08/15/2022 22:39:22 zoster recombinant 10/03/19 25 completed Cristhian Delgado DO [address] [place] [address], [address], [facility] 10/10/2024 16:45:43 Past Encounters Encounter ID Performer Location Encounter Start Date Encounter Closed Date Diagnosis/Indication Diagnosis SNOMED-CT Code Diagnosis ICD10 Code Diagnosis IMO Codes Diagnosis Note Cristhian Delgado DO [facility] [address] [facility] [address] 07/11/2018 15:02:42 07/11/2018 16:21:04 Alcohol dependence 07106799 F10.20 written scripts vivitrol 380 mg IM Q 4 weeks ( pharmacy not located in system ) Chronic ob structive pulmonary disease 83067507 J44.9 Harmful pa ttern of use of alcohol 34731781 F10.10 long discussion to avoid isolation Use senior center, library, social center to seek psychiatri st-pt prefers to do on own look for SMART meetings stay in contact w/positive people in life get outside and walk History of deep vein thrombosis 307847459 Z86.718 on Eliquis Neuropathy 523011102 G62 .9 gabapentin written & faxed 300 mg BID [id number] Cristhian Delgado [facility] [address] [facility] [place] [address] 09/28/2018 13:25:38 09/28/2018 14:06:07 Alcohol dependence 72388560 F10.20 currently in rehab Secondary peripheral neuropathy 800576 G63 2/2 etoh History of deep vein thrombosis 004734905 Z86.718 Tobacco de pendence syndrome 63035417 F17.200 [id number] Cristhian Delgado [facility] [address] [facility] [address] 10/26/2018 14:05:49 10/26/2018 16:00:43 History of deep vein thrombosis 875467578 Z86.718 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 has IVC filter Tobacco de pendence syndrome 29446736 F17.200 no plans to quit Neuropathy 855176975 G62 .9 gabapentin not helpful has low vitamin d will supplement then f.u Harmful pa ttern of use of alcohol 40898120 F10.10 currently sober x 9 days Acute conjunctivitis 537 63776 H10.31 current abx failure consider opth if second round not helpful Vitamin D deficiency 347 61887 E55.9 Onychomyco sis of toenails 397790919 B35.1 Screening procedure 2012 5006 Z13.9 Steatotic liver disease 245764639 K76.0 [id number] Cristhian Delgado [facility] [address] [facility],[place] [address] 01/03/2019 10:26:01 01/03/2019 11:03:12 Secondary peripheral neuropathy 307816 G63 2/2 etoh Physical deconditioning 5653238792 9102 R68.89 Depressive disorder 3548 9007 F32.9 [id number] Cristhian Delgado [facility] [address] [facility] [address] 02/07/2019 13:17:51 02/07/2019 13:59:18 Acute folliculitis 466519819 L73.9 Secondary peripheral neuropathy 946530 G63 2/2 etoh no difference in neuropathy [...] who doesn't visit Vitamin D deficiency 347 88151 E55.9 never received the letter regarding this lab result will send in vitamin d now also take vitamin d3 2000 units after completing this will recheck level in 12 weeks Tobacco user 528423576 Z 72.0 [id number] Cristhian Delgado [facility] [address] [facility] [address] 04/28/2019 15:03:46 04/28/2019 16:25:32 Chronic obstructive pulmonary disease 45949208 J44.9 acute exacerbati on of copd Secondary peripheral neuropathy 649505 G63 2/2 etoh no difference in neuropathy [...] who doesn't visit Vitamin D deficiency 347 84818 E55.9 completed the macrodose of vitamin d needs to start the vitamin d r Tobacco user 446296514 Z 72.0 Harmful pa ttern of use of alcohol 09278458 F10.10 currently sober again Gout 72425425 M10.9 History of deep vein thrombosis 882768602 Z86.718 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 has IVC filter Neuropathy 522303289 G62 .9 as above Alcohol dependence 73943 003 F10.20 sober Atopic dermatitis 197483 01 L20.9 Acute exac erbation of chronic obstructive pulmonary disease 141033387 J44.1 mitesh lamb as above for rash + [place] [id number] Cristhian Delgado [facility] [address] [facility] [address] 10/25/2019 15:02:33 10/25/2019 15:22:49 Harmful pattern of use of alcohol 43105627 F10.10 still drinking about 1 pint of hard liquor a day no plans on stopping or seeking help with this addiction advised to work on cutting back and drink water instead patient does not seem interested on doing this despite risks to his health will have patient call if he has another convulsio n Chronic ob structive pulmonary disease 91233678 J44.9 breathing is the same per patient not any worse, cough is the same as well Tobacco de pendence syndrome 56993451 F17.200 still smoking not ready to quit, no plans on quitting SARS-CoV-2 297398787 U07 .1 patient currently has a positive diagnosis of COVID told him to monitor symptoms and if he gets very sick again to go back to the hospital [id number] Cristhian Delgado [facility] [address] [facility], [place] [address] 01/03/2020 15:04:00 01/03/2020 16:04:29 Harmful pattern of use of alcohol 31483419 F10.10 still drinking about 2 pint of hard liquor a day did discuss with patient about setting up with a rehab center and working with his advisor patient was open to this idea and gave permission for me to speak with his advisor Alcohol withdrawal 46899 0000 F10.939 patient states every time he stops drinking he gets violently ill so him refuses to stop drinking at this point [id number] Cristhian Delgado [facility] [address] [facility], [place] [address] 03/06/2020 09:10:45 03/06/2020 15:51:21 Harmful pattern of use of alcohol 84713433 F10.10 still drinking about 2 pint of hard liquor a day did discuss with patient about setting up with a rehab center and working with his advisor patient unwilling to stop drinking because of the withdrawal afterwards did discuss in detail with pt that the drinking is contributi ng to his neurologic al issues Chronic ob structive pulmonary disease 45177075 J44.9 breathing is the same per patient not any worse, cough is the same as well does need refill of his inhalers Fall W19.XXXS patient reports he fell due to balance issues, weakness in nabila legs most likely related to his drinking will set him up with Dr. Aldana again for eval Injury of head 66322993 S09.90XS no LOC and CT at hospital showed no acute changes MRI done in april, will not need another MRI History of deep vein thrombosis 644944574 Z86.Miryam was on eliquis but stopped to do hx of brain bleed no ride to the hospital so he is unwilling to do a fu US to assess chronic DVT due to brain bleed because of blood thinner, he should not be on eliquis at this time but should have US to assess [id number] Cristhian Delgado [facility] [address] [facility] [employer] [address] 04/19/2020 08:38:20 04/22/2020 15:44:19 [id number] Cristhian Delgado [facility] [address] [facility] [address] 06/12/2020 14:07:08 06/12/2020 15:18:50 Harmful pattern of use of alcohol 82264867 F10.10 still drinking about 2 pint of hard liquor a day did discuss with patient about setting up with a rehab center and working with his advisor patient unwilling to stop drinking because of the withdrawal afterwards did discuss in detail with pt that the drinking is contributi ng to his neurologic al issues Chronic ob structive pulmonary disease 12391409 J44.9 breathing is the same per patient not any worse, cough is the same as well Neuropathy 830527445 G62 .9 will try on the 800 mg qd as patient said this was effective will slowly tirtate up the medication dosage [id number] Cristhian Delgado [facility] [address] [facility] [address] 04/11/2021 14:50:50 04/11/2021 16:21:09 Chronic obstructive pulmonary disease 03941381 J41.0 breathing is the same per patient not any worse, cough is the same as well Alcohol withdrawal 81598 0000 F10.931 has not had a drink in 1 mo but does plan to drink again though per patient in moderation recommend ed to not drink at all Secondary peripheral neuropathy 635756 G63 restarted gabapentin Harmful pa ttern of use of alcohol 39880012 F10.121 monitoring progress with drinking Pain of le ft shoulder joint 5557819181 9584147 M25.512 improving with at home PT [id number] Cristhian Delgado [facility] [address] [facility],[place] [address] 09/17/2023 10:23:16 09/17/2023 11:04:03 Depression screening 463432198 Z13.31 SCREENING NEGATIVE Harmful pa ttern of use of alcohol 40781049 F10.121 on naloxone campral buspar zoloft Gout 04243398 M10.9 quiet now Neuropathy 967769810 G62 .9 had been on gabapentin Chronic ob structive pulmonary disease 72686094 J41.0 he is stable on the inhalers [id number] Cristhian Delgado [facility] [address] [facility],[place] [address] 10/18/2023 11:40:03 10/18/2023 12:58:27 Chronic obstructive pulmonary disease 81689056 J41.0 he is stable on the inhalers Harmful pa ttern of use of alcohol 73538994 F10.121 on naloxone campral buspar zoloft Tinea corporis 00725797 B35.4 between legs History of deep vein thrombosis 107998221 Z86.718 recurrent Insomnia 328563840 G47.0 0 [id number] Cristh[facility] Delgado [facility] Internal Medicine [address] [facility],[place] [address] 11/30/2023 10:27:17 11/30/2023 15:30:22 Acute exacerbation of chronic obstructive pulmonary disease [id number] J44.1 start on pred and z radha Chronic ob structive pulmonary disease 75262721 J41.0 needs refiil [id number] Cristhian Delgado [facility] Internal Medicine [address] [facility],[place] [address] 12/29/2023 10:02:26 12/29/2023 15:40:20 Pre-surgery evaluation [id number] Z01.818 The patient was seen in the office today for pre-op evaluation . All medical conditions on patient's problem list were addressed and are currently stable, no interventi on needed at this time. Based on history and physical performed, the patient is cleared for surgery. Chronic ob structive pulmonary disease 88143009 J41.0 mild exacerbati oncan start prednisone taper after surgery [id number] Cristhian Delgado [facility] Internal Medicine [address] [facility],[place] [address] 01/19/2024 10:45:59 01/19/2024 11:55:43 Acute exacerbation of chronic obstructive pulmonary disease 233244694 J44.1 seems stable now now acute changess Chronic ob structive pulmonary disease 60549276 J41.0 he is stable on the inhalers Neuropathy 388570330 G62 .9 had been on gabapentin Eczema 11482424 L30.9 Pain of bi lateral hands [id number] 3602422 M79.642 M79.641 [id number] Cristhian Delgado [facility] Internal Medicine [address] [facility],[place] [address] 01/17/2024 09:44:31 01/17/2024 11:46:28 Generalized rash [id number] R21 start on combinatio n treat of pred and anti-funga lhas a f/u on 01/18 with MB in officereco mmended him evaluate at that timeskin culture was negative, no staph infection [id number] Cristhian Delgado [facility] Internal Medicine [address] [facility],[place] [address] 03/22/2024 11:00:25 03/22/2024 11:45:12 Chronic obstructive pulmonary disease 83975528 J41.0 he is stable on the inhalers COVID-19 184842400 U07.1 on medrol and azith getting better Acute exac erbation of chronic obstructive pulmonary disease 274236843 J44.1 seems stable now now acute changesdoi ng bettergive n spacer [id number] Cristhian Delgado [facility] Internal Medicine [address] [facility],[place] [address] 05/19/2024 14:12:21 05/19/2024 15:20:28 Chronic obstructive pulmonary disease 28483410 J41.0 he is stable on the inhalers Nummular eczema 64469383 L30.0 Dislocatio n of shoulder joint 121739142 S43.006D Bilateral pain of joint of hands 0328902376 6802282 M25.541 M25.542 Screening for malignant neoplasm of colon 256585029 Z12.11 Chronic bronchitis 63820 004 J42 Neuropathy 978737859 G62 .9 had been on gabapentin [id number] Cristhian Delgado [facility] Internal Medicine [address] [facility],[place] [address] 06/07/2024 11:29:13 06/07/2024 12:15:01 Chronic obstructive pulmonary disease 17441909 J41.0 he is stable on the inhalers Dislocatio n of shoulder joint 400997266 S43.006D Nummular eczema 10051480 L30.0 Depression screening 171 162801 Z13.31 SCREENING NEGATIVE Bilateral pain of joint of hands 7177384975 4710069 M25.541 M25.542 Acute exac erbation of chronic obstructive pulmonary disease 369270775 J44.1 seems stable now now acute changesdoi ng bettergive n spacer [id number] [facility] [address] [facility],[place] [address] 10/10/2024 15:56:56 10/11/2024 10:30:30 Depression screening 100964215 Z13.31 SCREENING NEGATIVE Harmful pa ttern of use of alcohol 28784763 F10.121 on naloxone campral buspar zoloft Chronic ob structive pulmonary disease 14120265 J41.0 he is stable on the inhalers Eczema of lower leg 7623 73777 L30.9 [id number] will use cream Secondary peripheral neuropathy 057223 G62.89 will cont gabapentin but consider change to duloxetine Health Concerns Section Related Observation LastModified by Organization Detai ls LastModified Time None Recorded Concern Status LastModified by Organization Details LastModified Time None Recorded Advance Directives Directive None Recorded Payers Insurance Date Sequence Insurance Name Policy Number Policy Ruiz Covered Member ID Ruiz Member ID Guarantor Name 05/19/2024 1 [facility] - DOS PRIOR TO 2022 - DUAL ELIGIBLE (MEDICARE REPLACEMENT/ADV ANTAGE - HMO) Edgardo Zavala [id number] Edgardo Zavala 05/19/2024 1 [place] [employer] Edgardo Sena Sally [id number] Edgardo Zavala 01/16/2025 1 [facility] - DOS ON OR AFTER 2022 - MEDICARE [place]VANTAGE [place]ARE RE[place]AC[place]/ADV ANTAGE - PPO) Edgardo Zavala [id number] Edgardo Zavala 05/19/2024 1 [place] PRIOR TO 2022 - [facility] (MEDICAID) Edgardo Sally [id number] Edgardo Zavala Notes Date Note Type Note Provider Name a nd Address Organization Details Recorded Time 4 text/html ROS as noted in the HPI here for rechkrelates that had a rsh for mult weeks creams not helpfulstill smokeshaving a prob with the rash not going away Cristhian Delgado DO [address] [place], [address], [facility] Internal Medicine 01/19/2024 11:54:47 5 text/html ROS as noted in the HPI here for rechk of his lungs since having covid was seen twice in ER and actually signed out AMA on second visit was told to stay due to lower O2 sat but went hometoday O2 sat 95% Cristhian Delgado DO [address] [place], [address], [facility] Internal Medicine 03/22/2024 11:38:17 5 text/html ROS as noted in the HPI hwere for rechk right shoulder is pretty bad as of late since the dislocation episode back in januaryrelates that he has also had a problem with his short term memoryhas noticed for several monthsals o the neuropathy has been worse Cristhian Delgado DO [address] [place], [address], [facility] Internal Medicine 05/19/2024 15:07:19 5 text/html Care [...] his motorcycle again Cristhian Delgado DO [address] [place], [address], [facility] Internal Medicine 06/07/2024 12:12:26 5 text/html Care [...] his motorcycle again Cristhian Delgado DO [address] [place], [address], [facility] Internal Medicine 10/10/2024 16:56:27
--- OUTSIDE RECORDS SUMMARY | 2025-02-12 01:13 | XMS_ITS | Data Portability ---
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 Plan of Treatment [...] deep vein thrombosis of lower extremitie s [id number] Active 2017 IVC FILTER IN 2017 and bilateral thrombolys is SHELBI STREETER [address] [facility], [address], [place], [address] [place] [address] 8 12:36:34 Alcohol withdrawal delirium 5035091 Active 2017 Viridiana rainey [facility] 8 10:43:30 Chronic obstructiv e pulmonary disease 86291845 Active 2017 Viridiana rainey [facility] 8 10:43:38 Aspiration pneumonia 428957843 Active 2017 Viridiana rainey [facility] 8 10:43:47 Urinary tract infectious disease 60156550 Active 2017 Viridiana rainey [facility] 8 10:44:01 Tobacco dependence syndrome 98942341 Active 2017 Viridiana rainey [facility] 8 10:44:11 Peripheral nerve disease 419798476 Active 2017 Viridiana Miller brigid, [facility] 8 10:44:19 Anemia 654675042 Active 2017 Viridiana rainey, [facility] 8 10:44:24 Thrombocyt openic disorder 301847509 Active [address] , [address], [place], [address], [facility] 8 12:35:04 Chronic hepatitis 91580456 Active [address], [address], [place], [address], [facility] 8 12:35:27 Alcohol dependence 14051050 Active 2017 Giovani Juarez MD [address] [facility], [address], [place], [address], [facility] 8 12:06:43 Left upper quadrant pain 305115283 Active 2017 SHELBI Daly [address] , [address], [place], [address], [facility] 8 15:19:12 Cellulitis of buttock 00514036 Active 2022 ELIZABETH JACKSON NP [address] [facility], [address], [place], [address], [facility] 3 13:40:37 Harmful pattern of use of alcohol 02195498 Active 2022 ELIZABETH JACKSON NP [address], [address], [place], [address], [facility] 3 13:41:13 Open wound of buttock 252051763 Active 2022 ELIZABETH JACKSON NP [address], [address], [place], [address], [facility] 3 13:43:26 Problem Notes None recorded. Medical Equipment None Reported. Allergies Allergen ID Allergen Name Allergen Category Reaction Reaction Severity Criticality Documentation Date Start Date Code Code System Note Provider Name and Address Organization Details Recorded Time 12669 peanut allergeni c extract food,medi cation Not available Not available Not available 10/15/2022 99669 8 RxNorm peanu t butte r, facia l tere JACKSON NP [address] [facility], [address], [place], [address], [facility] 3 13:39:42 65676 raspberry extract food,medi cation Not available Not available Not available 10/15/2022 99710 69 RxNorm facia l tere JACKSON NP [address] [facility], [address], [place], [address], [facility] 3 13:40:02 Vitals Date Recorded Heart rate Respiratory rate Body temperature Systolic And Diastolic Provider Name and Address Organization Details Last Updated DateTime 10/15/2022 73 /min 18 /min 98.3 [degF] 91/55 mm[Hg] ELIZABETH JACKSON NP [address] [facility], [address], [place], [address], [facility] 3 13:33:48 Date Recorded Body temperature Oxygen saturation Heart rate Systolic And Diastolic Provider Name and Address Organization Details Last Updated DateTime 10/19/2022 98.3 [degF] 94 % 73 /min 91/55 mm[Hg] Cecilia Tucker MD [address] [facility], [address], [place], [address] , [facility] 3 06:30:21 Date Recorded Body weight Heart rate Respiratory rate Body temperature Oxygen saturation Systolic And Diastolic Provider Name and Address Organization Details Last Updated DateTime 3 77568.7 2 g 73 /min 18 /min 98.3 [degF] 94 % 91/55 mm[Hg] Violette Newell NP [address] [facility], [address], [place], [address], [facility] 3 11:10:43 Date Recorded Body weight Heart rate Respiratory rate Body temperature Oxygen saturation Systolic And Diastolic Provider Name and Address Organization Details Last Updated DateTime 3 60481.7 2 g 73 /min 18 /min 98.3 [degF] 94 % 91/55 mm[Hg] Violette Newell, ARNOLD [address], [address], [place], [address], [facility] 3 12:59:44 Date Recorded Body weight Heart rate Respiratory rate Body temperature Oxygen saturation Systolic And Diastolic Provider Name and Address Organization Details Last Updated DateTime 3 61091.7 2 g 73 /min 18 /min 98.3 [degF] 94 % 91/55 mm[Hg] Violette Newell, ARNOLD [address], [address], [place], [address], [facility] 3 10:56:55 Social History Question Answer Notes LastModified by [employer] Details LastModified Time Tobacco Smoking Status Current Every Day Smoker Viridiana Miller brigid, [facility] 05/19/2017 10:55:27 Do You Have An Advance Directive? Yes [email or web address] Information not available 10/15/2022 How Many Years Have You Consumed Alcohol? 44 Information not available 05/19/2017 What Is Your Code Status? Full Code [email or web address] Information not available 10/15/2022 Which Illicit Or Recreational Drugs Have You Used? Marijuana [email or web address] Information not available 10/15/2022 How Many Days In The Past Year Have You Had A Heavy Drinking Consumption (4+ Female, 5+ Male)? 365 Drinks 1 Pint Of [place] And 2 Nips/day, Longest Period Of Sobriety 6 Mos Information not available 05/19/2017 Do You Have A Medical Power Of Marine Cargo Specialist? Yes Information not available 05/19/2017 What Was The Date Of Your Most Recent Tobacco Screening? 10/15/2022 Information not available 10/15/2022 How Much Tobacco Do You Smoke? 1 PPD Information not available 05/19/2017 How Many Years Have You Smoked Tobacco? 40 Information not available 05/19/2017 Sex: Unknown Functional Status Question Answer Note LastModified by Organizat ion Details LastModified Time Do you use any illicit or recreational drugs? Yes [email or web address] Information not available 10/15/2022 What is your level of alcohol consumption? Heavy Information not available 05/19/2017 Mental Status None recorded. Family History Nothing Reported Notes:N/C Medical History No medical history recorded. Immunizations Vaccine Type Date Status Note Provider Nam e and Address Organization Details Recorded Time COVID-19 vaccine, vector-nr, rS-Ad26, PF, 0.5 mL 2 completed [facility] 10/22/2022 16:48:27 Tdap 2 completed [facility] 10/22/2022 16:48:42 pneumococcal polysaccharide PPV23 1 completed [facility] 05/27/2023 13:19:59 influenza, unspecified formulation 3 completed [facility] 05/27/2023 13:21:04 influenza, unspecified formulation 4 completed [facility] 05/27/2023 13:21:19 SARS-COV-2 (COVID-19) vaccine, UNSPECIFIED 3 completed [facility] 05/27/2023 13:21:41 Past Encounters Encounter ID Performer Location Encounter Start Date Encounter Closed Date Diagnosis/Indication Diagnosis SNOMED-CT Code Diagnosis ICD10 Code Diagnosis IMO Codes Diagnosis Note [id number] [address] [place] [address] 05/19/2017 10:32:28 05/25/2017 14:07:44 Bilateral deep vein thrombosis of lower extremities 856698097 I82.493 See HPIs/p IVC filter Dec, s/p EKOS catheter thrombolys is 3/2Eliquis 10 mg BID until 05/22 then 5 mg BIDMonitor for increase in pain/edema PT/OT eval and treat Alcohol wi thdrawal delirium 2539961 F10.231 Hx of heavy alcohol use with DTs in hospitalRi speridone 0.25 mg TIDThiamin e 100 mg dailyFolic acid 1 mg dailyMonit or moodNEG consult prn Aspiration pneumonia 422 520596 J69.0 Augmentin to complete courseAdd probioticA spiration precaution sSLP eval and treat Urinary tr act infectious disease 96082226 N30.00 Complete antibiotic as aboveMonit or sxs Chronic ob structive pulmonary disease 57947517 J41.8 Duonebs prnSupplem ental O2 prnMonitor respirator y status Tobacco de pendence syndrome 92035317 F17.210 Nicotine patchEncou rage smoking cessation Peripheral nerve disease 504414098 G64 Secondary to ETOH abuseMonit or sxs Anemia 262398965 D64.89 Repeat and monitor CBC [id number] MD MARKUS Melchor [address] [place] [address] 05/24/2017 10:26:07 05/26/2017 12:52:00 Bilateral deep vein thrombosis of lower extremities 262660302 I82.493 see HPIEliquis 5 mg bidmonitor with restart of medication on dose decreasing from 10 mg bid Alcohol wi thdrawal delirium 6196252 F10.231 see HPIthiamin e 100 mg qdmonitor for sx Tinea cruris 971758958 B 35.6 nystatin powdermoni tor to resolution Peripheral nerve disease 718145742 G64 start neurontin 100 mg tidtitrate for effect Urinary tr act infectious disease 28007431 N10 complete abmonitor for sx Chronic ob structive pulmonary disease 85121911 J41.1 at baselineco ntin[place] [id number] [address] [place] [place] [address] 06/01/2017 10:32:02 06/10/2017 14:19:14 Bilateral deep vein thrombosis of lower extremities 425196530 I82.493 see HPIEliquis 5 mg bidF/u with PCP Alcohol wi thdrawal delirium 0822764 F10.231 see HPIthiamin e 100 mg qdd/c risperidal Home services in place with social work and psych consults Chiqui t motivated to remain sober Peripheral nerve disease 074604475 G64 Increase neurontin 200 mg tidf/u with PCP Urinary tr act infectious disease 65261641 N10 antibiotic course completeap pears resolved Chronic ob structive pulmonary disease 55239902 J41.1 at baselineco [place]tin[place] [id number] [address] 09/16/2017 12:30:46 09/28/2017 15:08:07 Chronic hepatitis 59282869 K70.10 PT/OT eval and treatfollo w LFTsencour age ETOH abstinence psych eval and treat for abstinence follow up with GI prn Thrombocyt openic disorder 994752823 D69.59 monitor labsPlts corrected currently from 70 to 203 Chronic ob structive pulmonary disease 38190386 J41.8 duoneb q 4 hrs prnmonitor respirator y status Peripheral nerve disease 991060436 G64 neurontin 300 mg q 8 hrswill change to 300 mg q 9 am and 2 pm and 600 mg q hsc/o foot pain increased at nightmonit or pain Bilateral deep vein thrombosis of lower extremities 154820686 I82.593 eliquis 2.5 mg bidIVC filter in placemonit or labs Alcohol wi thdrawal delirium 3284900 F10.231 folic acid 1 mg qdmultivit e qdthiamine qdmonitor for withdrawal ativan 0.5 mg q 4 hrs prn added Tobacco de pendence syndrome 64699113 F17.210 nicotine patch 21 mg/24 hr qdmonitor for withdrawal [id number] MD ASHLEY Melchor AT [address] [address] 09/18/2017 12:00:41 09/28/2017 15:44:02 Asthenia 78669389 R53.1 see HPIPT OT eval and treatmonit or lytes Chronic hepatitis 408643 07 K73.2 see HPIseconda ry to ETOHGI eval prn Alcohol dependence 12271 003 F10.288 extended discussion with patient concerning use of etoh and effect on health. when patient returned after SNF stay in 05/16 again began drinking 1 pint and 1 nip per daypatient states understand ing that continuing with prior drinking habits will result in Thrombocyt openic disorder 640313816 D69.59 repeat and monitor cbc Bilateral deep vein thrombosis of lower extremities 426529239 I82.493 see HPIEliquis 2.5 mg bidmonitor with restart of medication IVC filter in place Chronic ob structive pulmonary disease 21837422 J41.1 at baselinedu onebs in place [place] [id number] [address] [address] 09/20/2017 16:11:59 09/28/2017 15:48:42 Chronic hepatitis 14722127 K70.10 PT/OT eval and treatfollo w LFTs weekly and once he is outpt with pcpencoura ge ETOH abstinence follow up with GI prnwill get ortho BPs bid x 2 days Thrombocyt openic disorder 774441939 D69.59 monitor labs, improved Chronic ob structive pulmonary disease 00121494 J41.8 duoneb q 4 hrs prnmonitor respirator y statusenco urage pt to stop smoking Peripheral nerve disease 416288097 G64 neurontin 300 mg q 9 am and 2 pm and 600 mg q hsmonitor pain Bilateral deep vein thrombosis of lower extremities 066107119 I82.593 eliquis 2.5 mg bidIVC filter in placemonit or labs Alcohol wi thdrawal delirium 7682215 F10.231 folic acid 1 mg qdmultivit e qdthiamine qdativan 0.5 mg q 4 hrs prn Tobacco de pendence syndrome 15802571 F17.210 nicotine patch 21 mg/24 hr qd [id number] [address] Daly AT [address] [address] 09/21/2017 15:09:20 09/28/2017 16:05:00 Alcohol dependence 75335688 F10.20 ok to dc home tomorrowst rongly encouraged abstinence /AA Chronic hepatitis 007310 07 K70.10 encourage ETOH abstinence follow up with GI prn and pcp Bilateral deep vein thrombosis of lower extremities 298765382 I82.593 eliquis 2.5 mg bidIVC filter in place Chronic ob structive pulmonary disease 96133548 J41.8 duoneb q 4 hrs prnencoura ge pt to stop smoking Left upper quadrant pain 048640873 R10.12 pt will f/u with PCP as out pt for further testing if needed [id number] [address] AT [address] [address] 10/02/2017 16:10:48 10/20/2017 12:10:03 Alcohol dependence 27345734 F10.20 see hpiPT OT for conditioni ng and mobilityst rongly encouraged abstinence Chronic ob structive pulmonary disease 35561453 J41.8 duoneb q 4 hrs prnencoura ge pt to stop smoking Anemia 375661448 D64.9 monitor cbc Peripheral nerve disease 793312052 G64 neurontin 300 mg q 9 am and 2 pm and 600 mg q hsmonitor pain Bilateral deep vein thrombosis of lower extremities 465608693 I82.593 resume eliquis 2.5 mg bidIVC filter in placedue to alcoholism he would not be a candidate for coumadin [id number] MD ROSMERY MelchorLEY AT [address] [address] 10/05/2017 15:13:51 10/20/2017 13:22:05 Asthenia 51660467 R53.1 see HPImultifa ctorial PT OT eval and treatmonit or lytes Alcohol dependence 36420 003 F10.288 Repeat extended discussion with patient concerning use of etoh and effect on health. patient states understand ing that continuing with prior drinking habits will result in Chronic hepatitis 401982 07 K73.2 see HPIseconda ry to ETOHGI eval prn Bilateral deep vein thrombosis of lower extremities 283380688 I82.493 see HPIEliquis 2.5 mg bidmonitor with restart of medication IVC filter in place Peripheral nerve disease 032448395 G64 increase gabapentin to 300 mg tidmonitor for effect [id number] [address] 10/07/2017 14:48:18 10/20/2017 14:00:14 Alcohol dependence 65443826 F10.288 encouraged to abstain from ETOHfollow up with PCP Chronic hepatitis 891074 07 K73.2 secondary to ETOHfollow up with PCP Bilateral deep vein thrombosis of lower extremities 915256243 I82.493 Eliquis 2.5 mg bidspoke with him at length about needing to contact PCP and pharmacy to get prior authorizat ion form for eliquisIVC filter in placefollo w up with PCP Peripheral nerve disease 107401427 G64 gabapentin to 300 mg tidtylenol as neededfoll ow up with PCP [id number] ELIZABETH JACKSON NP [address] [address] 10/15/2022 13:30:52 10/20/2022 10:25:28 Cellulitis of buttock 90231163 L03.317 Continue levaquin 500 mg daily x 3 daysAdd probiotic bid x 7 daysStill with inflammati on/indurat ion around woundTrend sx., VS, labsCBC, BMP q wednesday Alcohol dependence 31003 003 F10.288 s/p phenobarb protocol in hosp., no sx. of withdrawal Encourage abstinence Open wound of buttock 26 5487917 S31.829A With associated abscess and cellulitis Debrided 10/08Finish abx. as aboveCurre nt tx. moist kerlix and DCD daily and prnRefer to [facility] wound clinic for eval and tx. - pt. concerned about transporta tion - if too expensive can refer to Wound team hereMonito r wound, VS, labs for change Chronic ob structive pulmonary disease 23164343 J41.8 Combivent respimat 1 inh qid prnAlbuter ol MDI q4 hr prn - requesting to keep at bedside and self administer Continues to smoke Tobacco de pendence syndrome 25164514 F17.210 Continues to smoke hereEnc. abstinence Bilateral deep vein thrombosis of lower extremities 401422935 I82.493 eliquis 5 mg bids/p IVCmonitor [id number] Cecilia Tucker MD [address] [address] 10/19/2022 06:26:38 10/23/2022 13:52:00 Harmful pattern of use of alcohol 55117298 F10.10 social security specialist for 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 for sobrietyth iamine 100 mg dailyfolic acid 1 mg dailyMVI dailywill monitor Open wound of buttock 26 3702496 S31.829A s/p I&Dantibio tics completedw ound care per surgery recommenda tionsfollo w up wound clinic Chronic ob structive pulmonary disease 72453989 J41.8 Combivent 18-103: 1 puff q6h prnalbuter ol HFA: 1 puff q4h prnwill monitor Asthenia 74954506 R53.1 PT/OTwill monitor and support s needed History of deep vein thrombosis 848872007 Z86.718 apixaban 5 mg bidwill monitor [id number] Violette Newell NP [address] [address] 10/22/2022 11:09:43 10/26/2022 10:58:25 Harmful pattern of use of alcohol 88678325 F10.10 social security specialist for 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 for sobrietyno tremor noted, anxious at baselineth iamine 100 mg dailyfolic acid 1 mg dailyMVI dailywill monitor Open wound of buttock 26 4272490 S31.829A s/p I&D on 10/08/22IV and po antibiotic s completed for cellulitis wound care per surgery recommenda tionsfollo w up wound clinic and dressings dailymonit or cbc and labs weekly Chronic ob structive pulmonary disease 94832254 J41.8 Combivent 18-103: 1 puff q6h prnalbuter ol HFA: 1 puff q4h prnwill monitor Asthenia 67529687 R53.1 PT/OTwill monitor and support s needed History of deep vein thrombosis 864056845 Z86.718 apixaban 5 mg bids/p ivc filterwill monitor Alcohol dependence 25621 003 F10.288 s/p phenobarb protocol in hosp., no sx. of withdrawal Encourage abstinence Tobacco de pendence syndrome 67962926 F17.210 Continues to smoke hererefuse s nicotine patchEnc. abstinence [id number] Violette Newell NP [facility] [address] [address] 10/26/2022 12:59:02 10/28/2022 08:31:09 Open wound of buttock 380990086 S31.829A s/p I&D on 10/08/22IV and po antibiotic s completed for cellulitis wound care per surgery recommenda tionsfollo w up wound clinic and dressings dailymonit or cbc and labs weekly Harmful pa ttern of use of alcohol 38772865 F10.10 social security specialist for 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 for sobrietyno tremor noted, anxious at baselineth iamine 100 mg dailyfolic acid 1 mg dailyMVI dailywill monitor Chronic ob structive pulmonary disease 97176800 J41.8 Combivent 18-103: 1 puff q6h prnalbuter ol HFA: 1 puff q4h prnwill monitor Asthenia 27618858 R53.1 PT/OTwill monitor and support s needed History of deep vein thrombosis 102512875 Z86.718 apixaban 5 mg bids/p ivc filterwill monitor Alcohol dependence 57459 003 F10.288 s/p phenobarb protocol in hosp., no sx. of withdrawal Encourage abstinence Tobacco de pendence syndrome 29650619 F17.210 Continues to smoke here now on scheduled breaks with staffrefus es nicotine patchEnc. abstinence Intertrigo 62764722 L30. 4 nystatin topically powder bid and prn x 14 daysmonito r Neuropathy 901442559 G62 .[address] De La Cruz this weekend09/30 she recommends 2% gel diclofenac topically 2 gram to bilateral feet bid, will agree todaymonit or for relief [id number] Violette Newell NP [address] [address] 10/27/2022 10:55:47 10/29/2022 09:47:39 Open wound of buttock 816913850 S31.829A s/p I&D on 10/08/22IV and po antibiotic s completed for cellulitis follow up wound clinic and dressings every 3rd day with stacy westfall to wound MANAGER [employer]POR[employer]PONSIBILITY herecurren t order to left buttock wound irrigiate with wound wash, pack with hydrofera blue-moist en with ns, squeeze excess out. cover wtih zetuvit plus silicone bordered dressing q 3 dayscont protein liquid or supplement s to add in wound healingmon itor outpt with pcp and vna Intertrigo 07562729 L30. 4 nystatin topically powder bid and prn until healedvna to assess for resolution monitor outpt Neuropathy 094317815 G62 .[address] De La Cruz this weekend2% gel diclofenac topically 2 gram to bilateral feet bidmonitor for relief outpt, pt/ ot to assess for safety, strengthen ing and balance Harmful pa ttern of use of alcohol 57204059 F10.10 social security specialist for 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 for sobrietyno tremor noted, anxious at baselineth iamine 100 mg dailyfolic acid 1 mg dailyMVI dailywill monitor outpt with pcp Chronic ob structive pulmonary disease 97974263 J41.8 Combivent 18-103: 1 puff q6h prnalbuter ol HFA: 1 puff q4h prnmonitor outpt with pcp Asthenia 26360604 R53.1 improved herewill monitor and support s needed outptmonit or outpt, pt/ ot to assess for safety, strengthen ing and balance, offloading pressure to wound, and safety conditions at home History of deep vein thrombosis 979620281 Z86.718 apixaban 5 mg bids/p ivc filterwill monitor outpt Alcohol dependence 69276 003 F10.288 s/p phenobarb protocol in hosp., no sx. of withdrawal Encourage abstinence outpt and services as needed Tobacco de pendence syndrome 56505183 F17.210 Continues to smoke here now on [...] Ruiz Member ID Guarantor Name 10/14/2022 1 [facility] - HEALTH NET PLAN (MEDICAID HMO) [id number] Edgardo Zavala [id number] Edgardo Zavala 10/26/2022 1 [facility] - DOS ON OR AFTER 2022 - MEDICARE ADVANTAGE [place] (MEDICARE REPLACEMENT/ADV ANTAGE - PPO) Edgardo Zavala [id number] Edgardo Zavala Notes Date Note Type Note Provider Name and Address Organization Details Recorded Time 10/15/2022 text/html Edgardo is seen today for initial intake. He is a 62 yo male admitted to [facility] 10/14/22 from [facility] for continued care and rehab after a brief hosp. related to a buttock wound and cellulitis. He presented to [facility] 10/07 with several days of buttock pain [...] covered with DCD. Needs follow up with [facility] wound clinic, ? wound vac. Upon d/c abx. changed to levaquin x 3 more days.DVT - remained on eliquisTobacco use - nicoderm patchCOPD - stable PMH: ETOH abuse, anemia, BLE DVTs IVC filter 2017 and bilat. thrombolysis, chronic hepatitis, COPD, PVD, thrombocytopenia, tobacco use, UTIMOLST: full code ELIZABETH JACKSON NP [address] [facility], [address], [place], [address], [facility] 10/15/2022 14:49:09 10/19/2022 text/html This 62 year old man was admitted to [facility] on 10/14/22for rehab and continued care. 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 He was having several days [...] - signed 10/15/22 Cecilia Tucker MD [address] [facility], [address], [place], [address], [facility] - [facility] 10/19/2022 14:28:20 10/22/2022 text/html Patient is seen for an acute rounding visit today. 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 He was having several days [...] - signed 10/15/22 Violette Newell NP [address] [facility], [address], [place], [address], [facility] 10/22/2022 11:32:05 10/26/2022 text/html Patient is seen [...] 62 year old man was admitted to [facility] on 10/14/22for rehab and continued care after presenting to the ER at [facility] on 10/07/22. He was having several days [...] - signed 10/15/22 Violette Newell NP [address] [facility], [address], [place], [address], [facility] rimidi 10/26/2022 13:39:46 10/27/2022 text/html Patient is seen for a discharge summary visit today. Edgardo is a 62 year old man was admitted to [facility] on 10/14/22for rehab and continued care after presenting to the ER at [facility] on 10/07/22. He was having several days [...] 3 days now according to the wound [employer]ONSIBILITY. His groin is improving with the nystatin [...] - signed 10/15/22 Violette Newell, ARNOLD [address] [facility], [address], [place], [address], [facility] 10/28/2022 10:11:07
--- OUTSIDE RECORDS SUMMARY | 2025-02-12 01:14 | XMS_ITS | Clinical Summary ---
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 Acute embolism and thrombosis of other specified veins 12/12/2022 Alcohol abuse with withdrawal, uncomplicated Chronic obstructive pulmonar y disease with (acute) exacerbation 12/12/2022 Resolved Problems Problem Noted Date Diagnosed Date Resolved Date Acute hypoxemic respiratory failure 03/17/2024 03/18/2024 Encounters Date Type Department Care Team Description 12/20/2024 5:55 PM EDT - 12/21/2024 2:58 PM EDT Hospital Encounter [facility] [address] [place] [address] Rai Gonzalez MD Goebel, Mathew, MD Jones, Christopher, MD Rasul, Yar M, MD Mohani, Priya, MD Hypoxia (Primary Dx); ETOH abuse; Chest pain, unspecified type; Viral pneumonia; Acute hypoxic respiratory failure ([facility] V24, [facility] V28) Discharge Disposition: Left Against Medical Advice from Last 3 Months Surgical History Surgery Date Site/Laterality Comments IVC FILTER Medical History Medical History Date Comments COPD (chronic obstructive pulmonary disease) ( S/HCC V24, [facility] V28) Neuropathy Social History Tobacco Use [...] on file Sexual Orientation Not on file Last Filed Vital Signs Vital Sign Reading [...] MOLECULAR STUDY Routine 12/21/2024 1:59 AM EDT [id number], RSV, FLU A AND B QUALITATIVE RT-PCR, [...] Positive( A) Negative 12/21/2024 12:28 PM EDT [facility] Stool Rectum structure / Unknown Non-blood Collection / Unknown 12/21/2024 11:46 AM EDT 12/21/2024 11:52 AM EDT Karolyn RABAGO LAB BODY FLUIDS AND STOOLS OR DERABLES Final Result [facility] [address] [place] [address], [place] [phone] * (ABNORMAL) Drug abuse screen 8a panel, urine (12/21/2024 11:46 AM EDT) [facility] Amphetamine Screen, Ur Negative Negative LAB CHEMISTRY METHOD 12:28 PM EDT [facility] Comment:Certain OTC medicati ons containing ephedrine, phenylephrine, pseudoephedrine and phenylpropanolamine can cause false positive results. Barbiturate Screen, Ur Positive(A ) Negative LAB CHEMISTRY METHOD 12:28 PM EDT [facility] Benzodiazepine Screen, Ur Negative Negative LAB CHEMISTRY METHOD 12:28 PM EDT [facility] Cocaine Screen, Ur Negative Negative LAB CHEMISTRY METHOD 12:28 PM EDT [facility] Opiate Screen, Ur Negative Negative LAB CHEMISTRY METHOD 12:28 PM EDT [facility] Cannabinoid (THC) Screen, Ur Negative Negative LAB CHEMISTRY METHOD 12:28 PM EDT [facility] Comment:Specimens from patie nts taking pantoprazole sodium (Protonix) have been shown to produce false positive results. Oxycodone Screen, Ur Negative Negative LAB CHEMISTRY METHOD 12:28 PM EDT [facility] Fentanyl, Ur Negative Negative LAB CHEMISTRY METHOD 12:28 PM EDT [facility] Urine Urine specimen obtained by clean catch procedure / Unknown Non-blood Collection / Unknown 12/21/2024 11:46 AM EDT 12/21/2024 11:52 AM EDT Narrative [facility] - 12/21/2024 12:28 PM EDT [...] MD LAB URINE ORDERABLES Final Resul t [facility] [address] [place] [address], * ECG 12 lead (12/21/2024 6:33 AM EDT) Only the most recent of2 resultswithin the time period is included. Ventricular Rate ECG 77 BPM GEMUSE Atrial Rate 77 BPM GEMUSE P-R Interval 116 ms GEMUSE QRS Duration 130 ms GEMUSE Q-T Interval 416 ms GEMUSE QTc 470 ms GEMUSE P [place] 35 degrees GEMUSE R [place] -68 degrees GEMUSE T [place] 31 degrees GEMUSE ECG Interpretation Normal sinus [...] K/mcL LAB HEMETOLOGY METHOD 12/21/2024 6:31 AM [facility] RBC 4.20(L) 4.50 - 5.50 M/mcL LAB HEMETOLOGY METHOD 12/21/2024 6:31 AM [facility] Hemoglobin 12.2(L) 13.5 - 17.5 g/dL LAB HEMETOLOGY METHOD 12/21/2024 6:31 AM [facility] Hematocrit 37.6(L) 42.0 - 54.0 % LAB HEMETOLOGY METHOD 12/21/2024 6:31 AM [facility] MCV 90.2 79.0 - 98.0 FL LAB HEMETOLOGY METHOD 12/21/2024 6:31 AM [facility] MCH 29.3 27.0 - 32.0 pcg LAB HEMETOLOGY METHOD 12/21/2024 6:31 AM [facility] MCHC 32.4 32.0 - 37.0 g/dL LAB HEMETOLOGY METHOD 12/21/2024 6:31 AM [facility] RDW 17.1(H) 11.0 - 15.0 % LAB HEMETOLOGY METHOD 12/21/2024 6:31 AM [facility] Platelets 142 130 - 400 K/mcL LAB HEMETOLOGY METHOD 12/21/2024 6:31 AM [facility] MPV 10.5 7.0 - 11.0 FL LAB HEMETOLOGY METHOD 12/21/2024 6:31 AM [facility] NRBC 0.0 <1.0 % LAB HEMETOLOGY METHOD 12/21/2024 6:31 AM [facility] NRBC Absolute 0.00 <0.10 K/mcL LAB HEMETOLOGY METHOD 12/21/2024 6:31 AM [facility] Neutrophils Relative 65.9 % LAB HEMETOLOGY METHOD 12/21/2024 6:31 AM [facility] Lymphocytes Relative 20.2 % LAB HEMETOLOGY METHOD 12/21/2024 6:31 AM [facility] Monocytes Relative 10.9 % LAB HEMETOLOGY METHOD 12/21/2024 6:31 AM [facility] Eosinophils Relative 2.1 % LAB HEMETOLOGY METHOD 12/21/2024 6:31 AM [facility] Basophils Relative 0.5 % LAB HEMETOLOGY METHOD 12/21/2024 6:31 AM [facility] Immature Granulocytes Relative 0.4 % LAB HEMETOLOGY METHOD 12/21/2024 6:31 AM [facility] Neutrophils Absolute 3.76 1.50 - 7.00 K/mcL LAB HEMETOLOGY METHOD 12/21/2024 6:31 AM [facility] Lymphocytes Absolute 1.15 1.00 - 5.00 K/mcL LAB HEMETOLOGY METHOD 12/21/2024 6:31 AM [facility] Monocytes Absolute 0.62 0.20 - 1.00 K/[facility] LAB HEMETOLOGY METHOD 12/21/2024 6:31 AM EDT [facility] Eosinophils Absolute 0.12 0.00 - 0.50 K/[facility] LAB HEMETOLOGY METHOD 12/21/2024 6:[facility] Basophils Absolute 0.03 0.00 - 0.20 K/[facility] LAB HEMETOLOGY METHOD 12/21/2024 6:31 AM EDT [facility] Immature Granulocytes Absolute 0.02 0.00 - 0.03 K/[facility] HEMETOLOGY METHOD 12/21/2024 6:31 AM [facility] Blood Venous blood specimen / Unknown Venipuncture / Unknown 12/21/2024 5:09 AM EDT 12/21/2024 5:59 AM EDT us Boom Nagel MD LAB BLOOD ORDERABLES Final Result [facility] [address] [place] [address], * Basic metabolic panel (12/21/2024 5:09 AM EDT) Sodium 135 133 - 145 mmol/L LAB CHEMISTRY METHOD 12/21/2024 7:41 AM [facility] Potassium 4.0 3.5 - 5.5 mmol/L LAB CHEMISTRY METHOD 12/21/2024 7:41 AM [facility] Chloride 98 96 - 110 mmol/L LAB CHEMISTRY METHOD 12/21/2024 7:41 AM [facility] CO2 29 21 - 32 mmol/L LAB CHEMISTRY METHOD 12/21/2024 7:41 AM [facility] Anion Gap 8 3 - 11 LAB CHEMISTRY METHOD 12/21/2024 7:41 AM [facility] Glucose 94 70 - 100 mg/dL LAB CHEMISTRY METHOD 12/21/2024 7:41 AM EDT [facility] BUN 15 5 - 25 mg/dL LAB CHEMISTRY METHOD 12/21/2024 7:41 AM EDT [facility] Creatinine 0.72 0.70 - 1.30 mg/dL LAB CHEMISTRY METHOD 12/21/2024 7:41 AM T [facility] eGFR 102 >=60 mL/min/1. 73m2 LAB CHEMISTRY METHOD 12/21/2024 7:41 AM EDT [facility] Comment:Calculation based on the Chronic Kidney Disease Epidemiology Collaboration (CKD-EPI) equation refit without adjustment for race. BUN/Creatinine Ratio 20.8 LAB CHEMISTRY METHOD 12/21/2024 7:41 AM [facility] Calcium 8.6 8.5 - 10.5 mg/dL LAB CHEMISTRY METHOD 12/21/2024 7:41 AM T [facility] Blood Venous blood specimen / Unknown Venipuncture / Unknown 12/21/2024 5:09 AM EDT 12/21/2024 5:59 AM EDT us Boom Nagel MD LAB BLOOD ORDERABLES Final Result [facility] [address] [place] [address], * Respiratory virus panel molecular study (12/21/2024 1:59 AM EDT) Pathologist [facility] Adenovirus Detection by PCR Not Detected Not Detected LAB MICROBIOLOGY METHOD 12/21/2024 2:56 AM EDT [facility] Influenza A PCR Not Detected Not Detected LAB MICROBIOLOGY METHOD 12/21/2024 2:56 AM T [facility] Influenza B PCR Not Detected Not Detected LAB MICROBIOLOGY METHOD 12/21/2024 2:56 AM EDT [facility] Coronavirus 229E Not Detected Not Detected LAB MICROBIOLOGY METHOD 12/21/2024 2:56 AM EDT [facility] Coronavirus HKU1 Not Detected Not Detected LAB MICROBIOLOGY METHOD 12/21/2024 2:56 AM EDT [facility] Coronavirus OC43 Not Detected Not Detected LAB MICROBIOLOGY METHOD 12/21/2024 2:56 AM EDT [facility] Coronavirus NL63 Not Detected Not Detected LAB MICROBIOLOGY METHOD 12/21/2024 2:56 AM EDT [facility] Parainfluenza Virus 1 Not Detected Not Detected LAB MICROBIOLOGY METHOD 12/21/2024 2:56 AM EDT [facility] Parainfluenza Virus 2 Not Detected Not Detected LAB MICROBIOLOGY METHOD 12/21/2024 2:56 AM EDT [facility] Parainfluenza Virus 3 Not Detected Not Detected LAB MICROBIOLOGY METHOD 12/21/2024 2:56 AM EDT [facility] Parainfluenza Virus 4 Not Detected Not Detected LAB MICROBIOLOGY METHOD 12/21/2024 2:56 AM EDT [facility] RSV PCR Not Detected Not Detected LAB MICROBIOLOGY METHOD 12/21/2024 2:56 AM EDT [facility] Human Metapneumovirus A and B Not Detected Not Detected LAB MICROBIOLOGY METHOD 12/21/2024 2:56 AM EDT [facility] Rhinovirus/Entero virus Not Detected Not Detected LAB MICROBIOLOGY METHOD 12/21/2024 2:56 AM EDT [facility] Bordetella pertussis Not Detected Not Detected LAB MICROBIOLOGY METHOD 12/21/2024 2:56 AM EDT [facility] Bordetella parapertussis Not Detected Not Detected LAB MICROBIOLOGY METHOD 12/21/2024 2:56 AM EDT [facility] Mycoplasma pneumo by PCR Not Detected Not Detected LAB MICROBIOLOGY METHOD 12/21/2024 2:56 AM EDT [facility] Chlamydia pneumoniae Not Detected Not Detected LAB MICROBIOLOGY METHOD 12/21/2024 2:56 AM EDT [facility] SARS COV-2 Not Detected Not Detected LAB MICROBIOLOGY METHOD 12/21/2024 2:56 AM EDT [facility] Swab Structure of right anterior naris / Unknown Non-blood Collection / Unknown 12/21/2024 1:59 AM EDT 12/21/2024 2:01 AM EDT Narrative [facility] - 12/21/2024 2:56 AM EDT Testing was performed using the [employer] Respiratory Pathogen PCR Assay. All results must [...] that are below the limit of detection. Karolyn RABAGO LAB MICROBIOLOGY - GENERAL OR DERABLES Final Result [facility] [address] [place] [address], * [id number], RSV, Influenza A and B qualitative RT-PCR (12/20/2024 10:53 PM EDT) Influenza A PCR Not Detected Not Detected LAB MICROBIOLOGY METHOD 12/21/2024 12:20 AM EDT [facility] Influenza B PCR Not Detected Not Detected LAB MICROBIOLOGY METHOD 12/21/2024 12:20 AM EDT [facility] RSV PCR Not Detected Not Detected LAB MICROBIOLOGY METHOD 12/21/2024 12:20 AM EDT [facility] SARS COV-2 Not Detected Not Detected LAB MICROBIOLOGY METHOD 12/21/2024 12:20 AM EDT [facility] Swab Both anterior nares / Unknown Non-blood Collection / Unknown 12/20/2024 10:53 PM EDT 12/20/2024 11:34 PM EDT Mario Quach MD LAB MICROBIOLOGY - GENERAL ORDAnh ZARCO Final Result Performing Organization Address City/[facility]/ZIP Co de Phone Number [facility] [address] [place] [address], [place] [phone] * B-Type Natriuretic Peptide (BNP) (12/20/2024 9:27 PM EDT) BNP 20 <=100 pcg/mL LAB CHEMISTRY METHOD 12/20/2024 10:12 PM EDT [facility] Blood Venous blood specimen / Unknown Venipuncture / Unknown 12/20/2024 9:27 PM EDT 12/20/2024 9:38 PM EDT Rai Gonzalez MD LAB BLOOD ORDERABLES Final Resul t Performing Organization Address [facility]/ZIP Co de Phone Number [facility] [address] [place] [address], [place] [phone] * CT Angio Chest wo and/or w [...] angiography chest with contrast. 3D Postprocessing. Comparison: CT/AL/SR - CHEST ANGIOGRAPHY CT - 03/21/2023 08:08 [...] angiography chest with contrast. 3D Postprocessing. Comparison: CT/AL/SR - CHEST ANGIOGRAPHY CT - 03/21/2023 08:08 [...] LAB CHEMISTRY METHOD 12/20/2024 9:33 PM EDT [facility] Blood Venous blood specimen / Unknown Venipuncture / Unknown 12/20/2024 8:56 PM EDT 12/20/2024 9:03 PM EDT Narrative [facility] - 12/20/2024 9:33 PM EDT High levels of biotin in samples may falsely decrease hsTroponin values. Use caution when interpreting hsTroponin results in patients taking biotin who exhibit renal impairment (eGFR <60) or in patients taking more than 20 mg/day of biotin. us Rai Gonzalez MD LAB BLOOD ORDERABLES Final Resul t [facility] [address] [place] [address], * XR Chest 2 Views (12/20/2024 8:46 PM EDT) Anatomical Region Laterality Modality Body Radiographic Mirella ging 12/20/2024 10:4 8 PM EDT Impressions 12/20/2024 10:48 PM EDT Patchy bilateral infiltrates. This document has been electronically signed by: Temo Llanos MD on 12/20/2024 22:48:02 Narrative 12/20/2024 10:48 PM EDT INDICATION: chest pain 2 view chest x-ray Comparison: DX/AL/SR - XR CHEST 2 VW - 03/17/24 14:46 EST Findings: No consolidation or effusion. Normal size heart. No acute fracture. Patchy bilateral infiltrates. Procedure Note Temo Llanos MD - 12/20/2024 INDICATION: chest pain 2 view chest x-ray Comparison: DX/AL/SR - XR CHEST 2 VW - 03/17/24 [...] LAB COAGULATION METHOD 12/20/2024 8:24 PM EDT [facility] Blood Venous blood specimen / Unknown Venipuncture / Unknown 12/20/2024 7:52 PM EDT 12/20/2024 8:06 PM EDT us Rai Gonzalez MD LAB BLOOD ORDERABLES Final Resul t Performing Organization Address City/[facility] de Phone Number [facility] [address] [place] [address], [place] [phone] * Protime-INR (12/20/2024 7:52 PM EDT) [facility] Protime 13.1 10.6 - 13.9 sec LAB COAGULATION METHOD 12/20/2024 8:24 PM EDT [facility] INR 1.1 LAB COAGULATION METHOD 12/20/2024 8:24 PM EDT [facility] Blood Venous blood specimen / Unknown Venipuncture / Unknown 12/20/2024 7:52 PM EDT 12/20/2024 8:06 PM EDT us Rai Gonzalez MD LAB BLOOD ORDERABLES Final Resul t Performing Organization Address [facility]/ZIP Co de Phone Number [facility] [address] [place] [address], [place] [phone] * (ABNORMAL) Ethanol (12/20/2024 7:52 PM EDT) Ethanol Level 211(H) 0 - 10 mg/dL LAB CHEMISTRY METHOD 12/20/2024 8:37 PM [facility] Blood Venous blood specimen / Unknown Venipuncture / Unknown 12/20/2024 7:52 PM EDT 12/20/2024 8:06 PM EDT us Rai Gonzalez MD LAB BLOOD ORDERABLES Final Resul t [facility] [address] [place] [address], * (ABNORMAL) Comprehensive Metabolic Panel (CMP) (12/20/2024 7:52 PM EDT) Pathologist [facility] Sodium 141 133 - 145 mmol/L LAB CHEMISTRY METHOD 12/20/2024 8:37 PM [facility] Potassium 3.4(L) 3.5 - 5.5 mmol/L LAB CHEMISTRY METHOD 12/20/2024 8:37 PM [facility] Chloride 100 96 - 110 mmol/L LAB CHEMISTRY METHOD 12/20/2024 8:37 PM [facility] CO2 31 21 - 32 mmol/L LAB CHEMISTRY METHOD 12/20/2024 8:37 PM [facility] Anion Gap 10 3 - 11 LAB CHEMISTRY METHOD 12/20/2024 8:37 PM [facility] Glucose 128(H) 70 - 100 mg/dL LAB CHEMISTRY METHOD 12/20/2024 8:37 PM [facility] BUN 13 5 - 25 mg/dL LAB CHEMISTRY METHOD 12/20/2024 8:37 PM [facility] Creatinine 0.81 0.70 - 1.30 mg/dL LAB CHEMISTRY METHOD 12/20/2024 8:37 PM EDT [facility] eGFR 98 >=60 mL/min/1. 73m2 LAB CHEMISTRY METHOD 12/20/2024 8:37 PM EDT [facility] Comment:Calculation based on the Chronic Kidney Disease Epidemiology Collaboration (CKD-EPI) equation refit without adjustment for race. BUN/Creatinine Ratio 16.0 LAB CHEMISTRY METHOD 12/20/2024 8:37 PM EDT [facility] Calcium 8.8 8.5 - 10.5 mg/dL LAB CHEMISTRY METHOD 12/20/2024 8:37 PM EDT [facility] AST (SGOT) 28 10 - 42 unit/L LAB CHEMISTRY METHOD 12/20/2024 8:37 PM [facility] ALT (SGPT) 21 10 - 60 unit/L LAB CHEMISTRY METHOD 12/20/2024 8:37 PM [facility] Alkaline Phosphatase 146(H) 42 - 121 unit/L LAB CHEMISTRY METHOD 12/20/2024 8:37 PM EDT [facility] Total Protein 7.5 6.0 - 8.0 g/dL LAB CHEMISTRY METHOD 12/20/2024 8:37 PM [facility] Albumin 3.5 3.2 - 5.0 g/dL LAB CHEMISTRY METHOD 12/20/2024 8:37 PM [facility] Total Bilirubin 0.5 0.0 - 1.4 mg/dL LAB CHEMISTRY METHOD 12/20/2024 8:37 PM T [facility] Blood Venous blood specimen / Unknown Venipuncture / Unknown 12/20/2024 7:52 PM EDT 12/20/2024 8:06 PM EDT us Rai Gonzalez MD LAB BLOOD ORDERABLES Final Resul t [facility] [address] [place] [address], [place] [phone] from Last [address] [facility] MEDICARE Member Subscriber Plan / Payer (Ef fective 2023-Present) Name:GIO ZEE Relation to Subscriber:Self Name:SallyGio Payer ID:[id number] Group ID:[id number] Type:Not on file Address: [place] [address] [address] [phone] Advance Directives Documents on File Type Date Recorded Patient Customer Support Professional Expl anation Health Care Decision (hx) 05/18/2017 [...] DIRECTIVE Health Care Decision (hx) 01/11/2017 Peyton Calebfranki ADVANCE DIRECTIVE Health Care Decision (hx) 01/11/2017 [...] Agents on File Name Relationship Healthcare Agent [facility] Communication Peyton Ely Relative Health Care Agent Care Teams Weapons Specialist Relationship Specialty Start Date End Date Cristhian Delgado DO [address] [facility] [place], [place] PCP - General Internal Medicine 02/01/24
[2025-02-12 06:20] VITALS: BP 104/58; PULSE 106; RESP 18; TEMP 37; O2SAT 93
--- NOTE | 2025-02-12 07:37 | MHC.CARE ---
Information sent to Alphonso dos santos.
--- NOTE | 2025-02-12 07:52 | PC.NURSE ---
Pt now requesting to go home, spoke to Mary from CARE team who states pt okay to be discharged. Ana BARRETT aware and will d/c pt
--- NOTE | 2025-02-12 07:54 | MHC.CARE ---
Pt dec;ined services and will be discharged.
[2025-02-12 08:00] VITALS: BP 133/69; PULSE 108; RESP 18; TEMP 36.3; O2SAT 97
[2025-02-12 08:58] VITALS: BP 133/69; PULSE 108; RESP 18; TEMP 36.3; O2SAT 97
== END 2025-02-12 08:59 | disposition home or self-care (01) ==
PROVIDERS: Emergency Provider Emergency Medicine Emergency Medical Services; PCP Internal Medicine
DX: F10.220 Alcohol dependence with intoxication, uncomplicated (principal); Y90.8 Blood alcohol level of 240 mg/100 ml or more; J45.909 Unspecified asthma, uncomplicated; Z86.718 Personal history of other venous thrombosis and embolism; Z79.01 Long term (current) use of anticoagulants; Z79.899 Other long term (current) drug therapy
CPT/HCPCS: 36415; 80048; 80307; 85025; 99284; S9485

== ENCOUNTER 2025-02-17 15:17 | Emergency (ER) | payer OTHER, SELFPAY ==
--- NOTE | ~2025-02-17 | CT_ITS ---
CLINICAL HISTORY: fall neck pain CT cervical spine without contrast Comparison: None provided Findings: Normal vertebral body alignment. Multilevel degenerative endplate changes of the cervical spine. No high-grade spinal stenosis. No acute fractures or dislocations. No acute findings on limited view of the intracranial contents. No cervical fluid collections or masses. Mild emphysematous changes at the lung apices. IMPRESSION: No acute findings. This document has been electronically signed by: Waleska Maradiaga MD on 02/17/2025 18:18:05
--- NOTE | ~2025-02-17 | CT_ITS ---
CLINICAL HISTORY: head injury CT head without contrast Comparison: CT/TN/SR - CT HEAD WITHOUT IV CONTRAST - 01/24/25 15:48 EST Findings: BRAIN: No acute infarct, hemorrhage, or mass effect. Right frontal encephalomalacia similar to prior exam. CSF SPACES: No hydrocephalus or effacement of basal cisterns. SKULL: No calvarial fracture. Right frontal craniotomy changes. SINUSES: No significant mucosal thickening or effusion on limited views. ORBITS: Bilateral lens replacements. OTHER: Negative. IMPRESSION: 1. No acute intracranial findings. This document has been electronically signed by: Waleska Maradiaga MD on 02/17/2025 18:17:03
[2025-02-17 15:32] VITALS: BP 110/86; BP 115/67; PULSE 82; PULSE 84; RESP 16; TEMP 36.8; O2SAT 95; O2SAT 96; BMI 20.1
[2025-02-17 15:37] VITALS: BP 115/67; PULSE 82; RESP 16; TEMP 36.8; O2SAT 95
--- NOTE | 2025-02-17 16:00 | ECG_ITS ---
Test Reason : FALL Blood Pressure : */* mmHG Vent. Rate : 82 BPM Atrial Rate : 82 BPM P-R Int : 136 ms QRS Dur : 130 ms QT Int : 420 ms P-R-T Axes : 62 -80 49 degrees QTcB Int : 490 ms Normal sinus rhythm Right bundle branch block Left anterior fascicular block Bifascicular block Abnormal ECG When compared with ECG of 17-Jan-2025 08:46, No significant change was found Referred By: Generic ED Physician Electronically Signed By: Michael Alejandra
[2025-02-17 16:02] LABS: MANUAL DIFF FLAG NO
[2025-02-17 16:05] LABS: Hematocrit 36.9 % (42.0-52.0); Hemoglobin 12.7 g/dl (14.0-18.0); Imm Gran Abs Auto 0.02 X10*3/uL (0.00-0.03); Imm Gran Pct Auto 0.4 % (0.0-0.4); Lymphocytes Absolute Auto 1.3 X10*3/uL (1.2-4.9); Mean Corpuscular HGB Conc 34.4 g/dl (31.0-36.0); Mean Corpuscular Hemoglobin 31.3 pg (27.0-33.0); Mean Corpuscular Volume 90.9 fL (80.0-98.0); NRBC Abs Auto 0.000 X10*3/uL (0.0-0.012); NRBC Pct Auto 0.0 /100WBC (0.0-0.2); Platelet Count 184 X10*3/uL (160-400); Red Blood Count 4.06 X10*6/uL (4.60-5.80); White Blood Count 5.4 X10*3/uL (4.8-10.8)
[2025-02-17 16:20] LABS: Alanine Aminotransferase 15 U/L (0-40); Albumin Level 3.8 g/dL (3.5-5.0); Alkaline Phosphatase 159 U/L (39-117); Anion Gap 20 (12-20); Aspartate Amino Transferase 39 U/L (5-37); Blood Urea Nitrogen 7 mg/dL (9-16); Calcium 8.6 mg/dL (8.4-10.2); Carbon Dioxide 24 mmol/L (22-29); Chloride 103 mmol/L (96-108); Creatinine Clr Calc Pharmacy 112.2; Estimated Glomerular Filt Rate > 60; Magnesium 1.5 mg/dL (1.6-2.6); Potassium 3.8 mmol/L (3.3-5.1); Sodium 143 mmol/L (135-145); Total Protein 7.1 g/dL (6.5-8.0)
[2025-02-17 16:27] LABS: Troponin-I High Sensitivity 2.8 ng/L (<3.5-35.0)
--- NOTE | 2025-02-17 16:41 | ED.ALCOHOL ---
HPI - Alcohol General Chief Complaint: ETOH/Substance Use Stated Complaint: Etoh, fell yesterday, wants detox Time Seen by Provider: 02/17/25 16:03 History of Present Illness HPI narrative: Patient is 64-year-old male long history of alcohol abuse. Had a pt of alcohol earlier. Had an accidental fall. Complaining of pain to his head. No chest pain no abdominal pain moving all extremities. Drinks alcohol on a regular basis. Last drink was prior to arrival. No history of being on blood thinners. No nausea no vomiting Related Data Home Medications ?Medication ?Instructions ?Recorded ?Confirmed apixaban 5 mg tablet (Eliquis) 5 mg PO BID 08/29/22 01/24/25 albuterol sulfate 90 mcg/actuation 2 puff inhalation Q4H PRN 01/17/25 01/17/25 aerosol inhaler Shortness Of Breath buspirone 7.5 mg tablet 7.5 mg PO TID 01/17/25 01/17/25 hydroxyzine pamoate 50 mg capsule 50 mg PO BID 01/17/25 01/24/25 melatonin 5 mg tablet 5 - 10 mg PO BEDTIME PRN Sleep 01/17/25 01/17/25 mirtazapine 15 mg tablet 15 mg PO BEDTIME 01/17/25 01/17/25 prazosin 1 mg capsule 1 mg PO BEDTIME 01/17/25 01/17/25 sertraline 100 mg tablet 200 mg PO DAILY 01/17/25 01/17/25 Previous Rx's ?Medication ?Instructions ?Recorded fluticasone fur. 100 mcg-umeclid 1 inh inhalation RDAILY 30 days #1 01/22/25 62.5 mcg-vilant 25 mcg ea inhalat.powder (Trelegy Ellipta) folic acid 1 mg tablet 1 mg PO DAILY 30 days #30 tabs 01/22/25 naltrexone 50 mg tablet 50 mg PO DAILY 30 days #30 tabs 01/22/25 nicotine 7 mg/24 hr daily 7 mg transdermal DAILY 30 days #1 01/22/25 transdermal patch ea thiamine mononitrate (vit B1) 100 100 mg PO DAILY 30 days #30 tabs 01/22/25 mg tablet acetaminophen 500 mg tablet 1,000 mg (2 x 500 mg) PO Q6H PRN 01/25/25 pain #30 tabs lidocaine 5 % topical patch 1 patch topical DAILY #15 ea 01/25/25 Allergies Allergy/AdvReac Type Severity Reaction Status Date / Time Peanut Butter Allergy Facial Verified 02/17/25 15:36 Swelling raspberry Allergy Facial Verified 02/17/25 15:36 Swelling Review of Systems Review of Systems: positive head injury Yes all other systems are reviewed and are negative [facility] Past Medical History Attestation statement: The following information was validated with the patient. Medical History Alcohol withdrawal Alcohol dependence Presence of IVC filter Acute and chronic respiratory failure with hypoxia COPD (chronic obstructive pulmonary disease) Alcohol use disorder, severe, dependence Tobacco abuse Subdural hematoma DVT (deep venous thrombosis) COPD (chronic obstructive pulmonary disease) Asthma Neuropathy Alcohol abuse Social History Social History Household Members: None Housing: House Do you presently have visiting nurse or other home services: No Alcohol intake: current Alcohol intake frequency: a few times a week Alcohol type: hard liquor Comment: pt refuses high fall risk interventions Patient Tobacco Use Status: Current everyday Tobacco user Tobacco use type: Cigarette Cigarette Packs Per Day: 1 Cigarettes Per Day: 20.0 Smoked in Last 30 Days: Yes e-Cigarette/Vaping Use: Never Used Second Hand Smoke Exposure: No Use of substances other than those prescribed or required for medical reasons: Yes Substance Use Type: Marijuana Substance Use Frequency: Occasionally Advance Directives: Yes Advance Directives on File: Yes Advance Directives Date on File: 03/05/22 Do you have a plan to hurt others: No Plan service: No Current occupational status: disabled Physical Exam ED Exam Exam: Appearance: Alert. Oriented X3. No acute distress. Eyes: Pupils equal, round and reactive to light. ENT: Pharynx normal. positive contusion to the left forehead area. Neck: Normal inspection. Neck supple. No lymph nodes noted. No crepitus . There is no posterior C-spine tenderness elicited on palpation CVS: Normal heart rate and rhythm. Pulses normal. Normal S1 and S2 Respiratory: No respiratory distress. Breath sounds normal. No Wheezing. No rales Abdomen: Soft and nontender. No rigidity. No distention. good BS x4 Skin: Skin warm and dry. Normal skin color. Normal skin turgor. Extremities: No lower extremity edema. Neurovascular intact to all extremities. No Lacerations. No Rash Neuro: Oriented X 3. No motor deficit. No sensory deficit. Moving all extermities. No slurred speech Vital Signs: Vital Signs - 24 hr 02/17/25 15:32 02/17/25 15:37 Temperature 98.2 F 98.2 F Pulse Rate 82 82 Respiratory Rate 16 16 Blood Pressure 115/67 115/67 Pulse Oximetry 95 95 Oxygen Delivery Method Room Air Room Air BMI result Body Mass Index 20.1 Medical Decision Making Medical Decision Making [facility] Narrative: patient's CT scan of the head CT scan of the C-spine by my interpretation showed no acute bleed no acute fracture no acute malalignment I reviewed radiology's reading which was the same. Long history of alcohol abuse patient's alcohol is over 300 today. Monitored in the emergency department for 5 hours patient now awake alert ambulatory no distress. Wants to leave. Does not want to stay. Explained to patient the need to eat a nutritious diet need to stop drinking patient states understanding detox instructions was given patient does not want detox at this time it was offered. In stable condition. Differential Diagnosis Differential Diagnoses: The differential diagnosis associated with the presentation includes Alcohol intoxication, head injury Admission/Observation Consideration of admission/observation: Escalation of care including admission/observation considered Lab Data [facility] Lab Attestation statement: I reviewed the patient's lab results. 02/17/25 15:57 02/17/25 15:57 Labs: Lab Results 02/17/25 Range/Units 15:57 WBC 5.4 (4.8-10.8) X10*3/uL RBC 4.06 L (4.60-5.80) X10*6/uL Hgb 12.7 L (14.0-18.0) g/dl Hct 36.9 L (42.0-52.0) % MCV 90.9 (80.0-98.0) fL MCH 31.3 (27.0-33.0) pg MCHC 34.4 (31.0-36.0) g/dl RDW 15.5 (11.0-16.0) % Plt Count 184 (160-400) X10*3/uL MPV 8.6 L (9.4-12.4) fL Immature Gran % (Auto) 0.4 (0.0-0.4) % Neut % (Auto) 66.4 (45-73) % Lymph % (Auto) 23.2 (20-40) % [place] % (Auto) 8.1 (2-11) % Eos % (Auto) 0.4 (0-4) % Baso % (Auto) 1.5 (0-2) % Lymph # (Auto) 1.3 (1.2-4.9) X10*3/uL [place] # (Auto) 0.4 (0.1-1.2) X10*3/uL Eos # (Auto) 0.0 (0.0-0.4) X10*3/uL Baso # (Auto) 0.1 (0.0-0.2) X10*3/uL Abs Immat Gran (auto) 0.02 (0.00-0.03) X10*3/uL Absolute Neuts (auto) 3.6 (2.0-8.3) x10*3/uL Absolute Nucleated RBC 0.000 (0.0-0.012) X10*3/uL Nucleated RBC % (auto) 0.0 (0.0-0.2) /100WBC Sodium 143 (135-145) mmol/L Potassium 3.8 (3.3-5.1) mmol/L Chloride 103 (96-108) mmol/L Carbon Dioxide 24 (22-29) mmol/L Anion Gap 20 (12-20) BUN 7 L (9-16) mg/dL Creatinine 0.58 (0.5-1.4) mg/dL Estim Creat Clear Calc 112.2 Estimated GFR > 60 Random Glucose 88 (60-115) mg/dL Calcium 8.6 (8.4-10.2) mg/dL Magnesium 1.5 L (1.6-2.6) mg/dL Total Bilirubin 0.4 (0.0-1.0) mg/dL AST 39 H (5-37) U/L ALT 15 (0-40) U/L Alkaline Phosphatase 159 H (39-117) U/L Troponin I High Sens 2.8 D (<3.5-35.0) ng/L Total Protein 7.1 (6.5-8.0) g/dL Albumin 3.8 (3.5-5.0) g/dL Ethyl Alcohol 346 H* mg/dL Independent Interpretation I performed an independent interpretation of an: CT Scan ( CT head showed no evidence of bleed) Radiology Impression Discussion of test interpretation with radiology: I have reviewed the radiologist's reading. External Record Review previous hospital record reviewed Social Determinants Patient?s care significantly limited by Social Determinants of Health including: Problems related to primary support group Discharge Plan Discharge Clinical Impression: Head injury, Alcohol abuse Patient Disposition: Home, Self-Care Instructions: Abuse of Alcohol (DC), Head Injury (DC) Additional Instructions: Alcohol use disorder You were seen in the Emergency Department today for treatment of alcohol use disorder.? You may have been given medications to help with your withdrawal symptoms.? Please do not drink alcohol with them. This is very dangerous and can cause respiratory depression or other adverse reactions depending on the medication. If you would like to cut down or stop your alcohol use please consider calling our outpatient Addiction Treatment office:? [facility] ([id number] [id number]) [address] [place] [id number] You have also been given a list of treatment providers in the area that can assist as well.? If you experience seizures, vomiting blood, black stools, falls, severe headache, chest pain, fevers, trouble breathing, hallucinations or any other concerns you need to call 911 or seek immediate care. Please stay hydrated. Prescriptions: No Action Eliquis 5 mg tablet 5 mg PO BID prazosin 1 mg capsule 1 mg PO BEDTIME sertraline 100 mg tablet 200 mg PO DAILY hydroxyzine pamoate 50 mg capsule 50 mg PO BID buspirone 7.5 mg tablet 7.5 mg PO TID mirtazapine 15 mg tablet 15 mg PO BEDTIME albuterol sulfate 90 mcg/actuation HFA aerosol inhaler 2 puff inhalation Q4H PRN (Reason: Shortness Of Breath) melatonin 5 mg tablet 5 - 10 mg PO BEDTIME PRN (Reason: Sleep) folic acid 1 mg Tablet 1 mg PO DAILY 30 Days Qty: 30 0RF nicotine 7 mg/24 hr Patch 24 Hour 7 mg transdermal DAILY 30 Days Qty: 1 0RF thiamine mononitrate (vit B1) 100 mg Tablet 100 mg PO DAILY 30 Days Qty: 30 0RF Trelegy Ellipta 100-62.5-25 mcg Blister With Device 1 inh inhalation RDAILY 30 Days Qty: 1 0RF naltrexone 50 mg tablet 50 mg PO DAILY 30 Days Qty: 30 0RF lidocaine 5 % adhesive patch,medicated 1 patch topical DAILY Qty: 15 0RF Rx Instructions: leave on most painful area for up to 12 hrs acetaminophen 500 mg tablet 1,000 mg PO Q6H PRN (Reason: pain) Qty: 30 0RF Referrals: Cristhian Delgado MD [Primary Care Provider, Internal Medicine] - 02/20/25 Print Language: Cuban
--- OUTSIDE RECORDS SUMMARY | 2025-02-17 16:43 | XMS_ITS | Data Portability ---
Author Organization [facility], Telehealth Patient Home Address [address] [facility] [place] [address] Assessment Encounter Date Assessment Date Assessment LastModified by Organization Details LastModified Time 01/19/2024 01/19/2024 [id number] [place] [id number] (PYROMETER OPERATOR) MDM HIGH MUST MEET 2 OUT OF [...] COVERED Not available 01/19/2024 11:54:32 03/22/2024 03/22/2024 [id number] [place] [id number] (PYROMETER OPERATOR) MDM MODERATE MUST MEET 2 OUT OF [...] COVERED Not available 03/22/2024 11:36:53 05/19/2024 05/19/2024 [id number] [place] [address] (PYROMETER OPERATOR) MDM HIGH MUST MEET 2 OUT OF [...] COVERED Not available 05/19/2024 15:01:00 06/07/2024 06/07/2024 [id number] [place] [address] (PYROMETER OPERATOR) MDM MODERATE MUST MEET 2 OUT OF [...] COVERED Not available 06/07/2024 12:03:37 10/10/2024 10/10/2024 [id number] [place] [address] (PYROMETER OPERATOR) MDM MODERATE MUST MEET 2 OUT OF [...] vitamin D, 25-hydroxy, total, serum 2024 025 [facility], [address] [place] [address], [address], 12:27:32 vitamin B12 + folate, serum or blood 2024 025 [facility], [address] [place] [address], [address], 12:30:46 CMP, serum or plasma 2024 025 [facility], [address] [place] [address], [address], 12:30:45 Referral orthopedic surgeon referral 2024 025 vamshi Simpson MD, [address] [facility] [address], [place], [address], 09:07:33 gastroenter ologist referral - routine colonoscopy 2024 025 aravind Parra MD, [address] [facility] [address], [place], [address], 09:35:00 Procedures None recorded. Surgeries None recorded. Imaging XR, hand, 3 or more view 2024 025 [facility] ([facility]), [address] [place], [address], 08:24:58 MRI, shoulder, w/o contrast 2024 025 [facility] ([facility]), [address] [place], [address], 5 08:26:15 XR, hand, 3 or more view 2023 024 [facility] ([facility]), [address] [place], [address], 4 08:29:38 Medication Orders triamcinolo ne acetonide 0.1 % topical cream 2024 025 [id number], [address] [place], [address], 5 16:46:57 azithromyci n 250 mg tablet 2024 025 [id number], [address] [place], [address], 5 12:12:19 azithromyci n 250 mg tablet 2024 025 [facility], [address] [place], [address], 5 14:59:57 triamcinolo ne acetonide 0.1 % topical cream 2024 025 [facility], [address] [place], [address], 5 15:02:20 triamcinolo ne acetonide 0.1 % topical cream 2023 024 [id number], [address] [place], [address], 4 11:51:47 Multivitami n 50 Plus tablet 2023 024 [id number] [address] [place], [address], 4 11:50:00 Patient TargetsNo targets recorded. Patient Instructions Encounter Date Encounter Id Patient Instructions Last Modified By Organization Details Last Modified Time 01/19/2024 [id number] chronic obstructive pulmonary disease (COPD): care instructions Not available 01/19/2024 11:49:57 learning about copd and how to prevent lung infections Not available 01/19/2024 11:49:57 pulse oximetry* Not available 01/19/2024 11:49:57 neuropathic pain : care instructions Not available 01/19/2024 11:49:57 03/22/2024 [id number] pulse oximetry* KAROLYN Not available 03/22/2024 11:49:54 05/19/2024 [id number] pulse oximetry* Not available 05/19/2024 14:59:35 dislocated shoulder: care instructions Not available 05/19/2024 14:59:35 shoulder dislocation: rehab exercises Not available 05/19/2024 14:59:35 neuropathic pain : care instructions Not available 05/19/2024 15:02:31 06/07/2024 [id number] pulse oximetry* KAROLYN Not available 06/07/2024 11:42:18 10/10/2024 [id number] pulse oximetry* Not available 10/10/2024 16:46:54 Reason for Referral Dungeon Master Referral for Screening for malignant neoplasm of colon routine colonoscopy Referring Physician: Cristhian Delgado, Internal Medicine, Encounter Date: 05/19/2024 Orthopedic Surgeon Referral for Dislocation of shoulder joint Referring Physician: Cristhian Delgado, Internal Medicine, Encounter Date: 06/07/2024 Results Created Date Observation Date Name Description Value Unit Range Abnormal Flag Note LastModifiedBy Organization Detail LastModifiedTime 01/19/20 24 01/19/2024 pulse oxime try* Result 92 Not Available [facility] [address] [facility] [address], [place], [address], 01/14/2024 11:32:45 03/22/19 25 03/22/2024 pulse oxime try* Result 95 Not Available [facility] [address] [facility] [address], [place], [address], 03/14/2024 11:54:52 05/20/19 25 05/19/2024 pulse oxime try* Result 91% Not Available [facility] [address] [facility] [address], [place], [address], 05/17/2024 16:20:55 06/08/19 25 06/07/2024 pulse oxime try* Result 93 Not Available [facility] [address] [facility] [address], [place], [address], 06/04/2024 08:15:20 10/11/1910/10/2024 pulse oxime try* Result 97 Not Available [facility] [address] [facility] [address], [place], [address], 10/10/2024 07:45:39 06/06/19 25 06/01/2024 MRI, shoul georgina, w/o contr ast No observ ation record ed. [facility] [address] [place], [address], 06/05/2024 15:20:13 10/27/1910/26/2024 XR, shoul georgina No observ ation record ed. [address] (Medical Records) [address] [place], [address], 10/27/2024 09:20:23 10/27/1910/26/2024 CT, angio gram, chest + abdom en + pelvi s, w/ contr ast No observ ation record ed. [address] (Medical Records) [address] [place], [address], 10/27/2024 09:20:53 10/28/19 25 10/26/2024 CT, angio gram, chest , w/ contr ast No observ ation record ed. [email or web address] [facility] (Medical Records) [address] [place], [address], 10/27/2024 10:02:41 12/19/19 25 12/18/2024 imagi ng/di agnos tic resul t No observ ation record ed. [email or web address] [facility] (Medical Records) [address] [place], [address], 12/19/2024 08:50:10 01/05/20 25 01/04/2025 XR, chest , 2 view No observ ation record ed. [address] (Medical Records) [address] [place], [address], 01/04/2025 16:40:25 01/25/20 25 01/24/2025 XR, humer us No observ ation record ed. [facility] (Medical Records) [address] [place], [address], 01/24/2025 16:09:25 01/25/20 25 01/24/2025 XR, shoul georgina No observ ation record ed. [facility] (Medical Records) [address] [place], [address], 01/24/2025 16:09:40 01/25/20 25 01/24/2025 XR, hand, 3 or more view No observ ation record ed. [address] (Medical Records) [address] [facility], [address], 01/24/2025 15:51:21 01/25/20 25 01/24/2025 XR, hand, 3 or more view No observ ation record ed. [address] (Medical Records) [address] [facility], [address], 01/24/2025 15:51:32 01/25/20 25 01/24/2025 CT, head + brain , w/o contr ast No observ ation record ed. [facility] (Medical Records) [address] [facility], [address], 01/25/2025 09:00:43 01/25/2001/24/2025 CT, cervi octavio spine , w/o contr ast No observ ation record ed. [facility] (Medical Records) [address] [place], [address], 01/25/2025 09:01:14 01/25/2001/24/2025 CT, chest , w/ contr ast No observ ation record ed. [facility] (Medical Records) [address] [facility], [place], [address], 01/25/2025 09:01:41 01/30/2001/29/2025 XR, chest , 2 view No observ ation record ed. [facility] (Medical Records) [address] [place], [address], 01/29/2025 06:35:30 Result Notes None recorded. Problems Name Problem SNOMED Code Status Onset Date Resolution Date Notes Provider Name and Address Organization Details Recorded Time Chronic obstructi ve pulmonary disease 31136250 Active 2018 Sheila rainey [facility] 9 15:16:29 Neuropath y 582904110 Active 2018 Sheila rainey [facility] 9 15:16:41 Gout 86875199 Active 2018 Sheila rainey [facility] 9 15:16:48 History of gallstone s 336722537 Active 2018 Sheila rainey [facility] 9 15:17:04 History of deep vein thrombosi s 626181198 Active 2018 s/p IVC filter Jennifer Dalton, [facility] [address] [place], [address], [facility] 9 14:35:19 Harmful pattern of use of alcohol 07683178 Active 2018 Kimberly Coelho NP, [address] [place] [address], [address], [facility] 9 16:45:28 Tobacco dependenc e syndrome 98504737 Active 2018 Kimberly Coelho NP, [address] [place] [address], [address], [facility] 9 16:13:47 Tinea corporis 44399332 Active 2023 Cristhian Delgado, [address] [place] [address], [address], [facility] 4 12:10:21 Insomnia 729434329 Active 2023 Cristhian Delgado DO [address] [place] [address], [address], [facility] 4 12:17:44 Secondary periphera l neuropath y 434974 Active 2023 Cristhian Delgado DO [address] [place] [address], [address], [facility] 4 22:16:11 Acute exacerbat ion of chronic obstructi ve pulmonary disease 530210970 Active 2023 HIMA HUERTA [address] [place] [address], [address], [facility] 4 15:05:32 Generaliz ed rash 826887607 Active 2023 HIMA HUERTA [address] [place] [address], [address], [facility] 4 10:59:16 Depressiv e disorder 96904744 Active 2023 HIMA HUERTA [address] [place] [address], [address], [facility] 4 10:26:22 Eczema 92143641 Active 2023 Cristhian Delgado DO [address] [place] [address], [address], [facility] 4 11:50:30 Pain of bilateral hands 49009300223 874905 Active 2023 Cristhian Delgado DO [address] [place] [address], [address], [facility] 4 11:52:35 Pruritic rash 65076770 Active 2023 Cristhian Delgado DO [address] [place] [address], [address], [facility] 4 21:26:20 COVID-19 622717874 Active 2024 Cristhian Delgado DO [address] [place] [address], [address], [facility] 5 11:37:01 Nummular eczema 86873435 Active 2024 Cristhian Delgado DO [address] [place] [address], [address], [facility] 5 14:51:23 Dislocati on of shoulder joint 637615910 Active 2024 Cristhian Delgado DO [address] [place] [address], [address], [facility] 5 14:52:22 Dislocati on of shoulder joint 495484905 Active 2024 Cristhian Delgado DO [address] [place] [address], [address], [facility] 5 14:52:26 Bilateral pain of joint of hands 63015314285 750474 Active 2024 Cristhian Delgado DO [address] [place] [address], [address], [facility] 5 14:53:41 Eczema of lower leg 079263660 Active 2024 Cristhian Delgado DO [address] [place] [address], [address], [facility] 5 16:55:51 Problem Notes None recorded. Medical Equipment None Reported. Allergies Allergen ID Allergen Name Allergen Category Reaction Reaction Severity Criticality Documentation Date Start Date Code Code System Note Provider Name and Address Organization Details Recorded Time 2905 peanut allergeni c extract food,medi cation Not available Not available Not available 05/11/2018 94443 8 RxNorm Sheila De Leon brigid [facility] 9 15:14:37 8332 Lyrica medicatio n rash Not available Not available 11/15/20232023 19052 1 RxNorm Landry Dunbar brigid [facility] 4 10:28:00 8490 raspberry extract food,medi cation Not available Not available Not available 12/29/2023 04487 69 RxNorm HIMA HUERTA [address] [place], [address], [facility] 4 10:47:33 9901 pregabali n medicatio n Not available Not available Not available 01/19/20252024 31057 2 RxNorm Not Available karolyn - External [...] completed Not Available Not Available Not Available [facility] 100,000 unit/gram topical powder 09/16 completed [...] Updated DateTime 5 171.45 cm 23.6 kg/m2 60551.6 3 g 71 /min 95 % 106/68 mm[Hg] Cristhian Delgado, DO [address] [place], [address] 5 11:20:11 Date Recorded Body height Body mass index (BMI) Body weight Heart rate Oxygen saturation Systolic And Diastolic Provider Name and Address Organization Details Last Updated DateTime 5 171.45 cm 24.4 kg/m2 37719.6 7 g 81 /min 91 % 130/80 mm[Hg] Daphne Ryan [facility] 5 14:36:10 Date Recorded Body height Heart rate Oxygen saturation Systolic And Diastolic Provider Name and Address Organization Details Last Updated DateTime 06/07/2024 171.45 cm 77 /min 93 % 129/60 mm[Hg] Trina Alcanatr [facility] Medicine 06/07/2024 11:39:05 Date Recorded Body height Body mass index (BMI) Body weight Oxygen saturation Heart rate Systolic And Diastolic Provider Name and Address Organization Details Last Updated DateTime 5 171.45 cm 23.8 kg/m2 96711.2 2 g 97 % 78 /min 112/64 mm[Hg] SAM AWAD [facility] 5 16:15:29 Date Recorded Body height Body mass index (BMI) Body weight Heart rate Oxygen saturation Systolic And Diastolic Provider Name and Address Organization Details Last Updated DateTime 4 171.45 cm 23.6 kg/m2 14538.6 3 g 73 /min 92 % 110/80 mm[Hg] Trina Alcantar [facility] 4 11:13:34 Social History Question Answer Notes LastModified by Organizat ion Details LastModified Time Tobacco Smoking Status Current Every Day Smoker Sheila rainey [facility] 05/11/2018 15:18:01 What Was The Date Of Your Most Recent Tobacco Screening? 06/07/2024 [email or web address] Information not available 06/07/2024 Sex: Unknown Functional [...] 0.5 mL 03/27/19 22 completed Not Available [facility] 08/15/2022 22:39:22 Tdap 08/04/19 22 completed Not Available [facility] 08/15/2022 22:39:22 pneumococcal polysaccharide PPV23 07/18/19 21 completed Not Available [facility] 08/15/2022 22:39:22 influenza, unspecified formulation 04/23/19 17 completed Not Available [facility] 08/15/2022 22:39:22 zoster recombinant 10/03/19 25 completed Cristhian Delgado DO [address] [place] [address], [address], [facility] 10/10/2024 16:45:43 Past Encounters Encounter ID Performer Location Encounter Start Date Encounter Closed Date Diagnosis/Indication Diagnosis SNOMED-CT Code Diagnosis ICD10 Code Diagnosis IMO Codes Diagnosis Note Cristhian Delgado DO [facility] [address] [facility] [address] 07/11/2018 15:02:42 07/11/2018 16:21:04 Alcohol dependence 81064328 F10.20 written scripts vivitrol 380 mg IM Q 4 weeks ( pharmacy not located in system ) Chronic ob structive pulmonary disease 92178656 J44.9 Harmful pa ttern of use of alcohol 76475215 F10.10 long discussion to avoid isolation Use senior center, library, social center to seek psychiatri st-pt prefers to do on own look for SMART meetings stay in contact w/positive people in life get outside and walk History of deep vein thrombosis 224380699 Z86.718 on Eliquis Neuropathy 223691284 G62 .9 gabapentin written & faxed 300 mg BID [id number] Cristhian Delgado [facility] [address] [facility] [place] [place] [address] 09/28/2018 13:25:38 09/28/2018 14:06:07 Alcohol dependence 79045409 F10.20 currently in rehab Secondary peripheral neuropathy 574950 G63 2/2 etoh History of deep vein thrombosis 101878390 Z86.718 Tobacco de pendence syndrome 69933194 F17.200 [id number] Cristhian Delgado [facility] [address] [facility] [address] 10/26/2018 14:05:49 10/26/2018 16:00:43 History of deep vein thrombosis 072538238 Z86.718 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 has IVC filter Tobacco de pendence syndrome 79039997 F17.200 no plans to quit Neuropathy 676447676 G62 .9 gabapentin not helpful has low vitamin d will supplement then f.u Harmful pa ttern of use of alcohol 72764082 F10.10 currently sober x 9 days Acute conjunctivitis 537 05010 H10.31 current abx failure consider opth if second round not helpful Vitamin D deficiency 347 45121 E55.9 Onychomyco sis of toenails 158207438 B35.1 Screening procedure 2012 5006 Z13.9 Steatotic liver disease 523517103 K76.0 [id number] Cristhian Delgado [facility] [address] [facility],[place] [address] 01/03/2019 10:26:01 01/03/2019 11:03:12 Secondary peripheral neuropathy 100833 G63 2/2 etoh Physical deconditioning 5975541251 9102 R68.89 Depressive disorder 3548 9007 F32.9 [id number] Cristhian Delgado [facility] [address] [facility] [place] [place] [address] 02/07/2019 13:17:51 02/07/2019 13:59:18 Acute folliculitis 474714864 L73.9 Secondary peripheral neuropathy 584485 G63 2/2 etoh no difference in neuropathy [...] who doesn't visit Vitamin D deficiency 347 54750 E55.9 never received the letter regarding this lab result will send in vitamin d now also take vitamin d3 2000 units after completing this will recheck level in 12 weeks Tobacco user 559682825 Z 72.0 [id number] Cristhian Delgado [facility] [address] [facility] [address] 04/28/2019 15:03:46 04/28/2019 16:25:32 Chronic obstructive pulmonary disease 43536048 J44.9 acute exacerbati on of copd Secondary peripheral neuropathy 205315 G63 2/2 etoh no difference in neuropathy [...] who doesn't visit Vitamin D deficiency 347 04816 E55.9 completed the macrodose of vitamin d needs to start the vitamin d r Tobacco user 601090907 Z 72.0 Harmful pa ttern of use of alcohol 65892113 F10.10 currently sober again Gout 15180410 M10.9 History of deep vein thrombosis 851608702 Z86.718 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 has IVC filter Neuropathy 386718333 G62 .9 as above Alcohol dependence 73005 003 F10.20 sober Atopic dermatitis 715485 01 L20.9 Acute exac erbation of chronic obstructive pulmonary disease 827832204 J44.1 mitesh lamb as above for rash + [place] [id number] Cristhian Delgado [facility] [address] [facility],[place] [address] 10/25/2019 15:02:33 10/25/2019 15:22:49 Harmful pattern of use of alcohol 69379165 F10.10 still drinking about 1 pint of hard liquor a day no plans on stopping or seeking help with this addiction advised to work on cutting back and drink water instead patient does not seem interested on doing this despite risks to his health will have patient call if he has another convulsio n Chronic ob structive pulmonary disease 66361547 J44.9 breathing is the same per patient not any worse, cough is the same as well Tobacco de pendence syndrome 53244420 F17.200 still smoking not ready to quit, no plans on quitting SARS-CoV-2 343766299 U07 .1 patient currently has a positive diagnosis of COVID told him to monitor symptoms and if he gets very sick again to go back to the hospital [id number] Cristhian Delgado [facility] [address] [facility], [place] [address] 01/03/2020 15:04:00 01/03/2020 16:04:29 Harmful pattern of use of alcohol 13604915 F10.10 still drinking about 2 pint of hard liquor a day did discuss with patient about setting up with a rehab center and working with his advisor patient was open to this idea and gave permission for me to speak with his advisor Alcohol withdrawal 41025 0000 F10.939 patient states every time he stops drinking he gets violently ill so him refuses to stop drinking at this point [id number] Cristhian Delgado [facility] [address] [facility], [place] [address] 03/06/2020 09:10:45 03/06/2020 15:51:21 Harmful pattern of use of alcohol 89940912 F10.10 still drinking about 2 pint of hard liquor a day did discuss with patient about setting up with a rehab center and working with his advisor patient unwilling to stop drinking because of the withdrawal afterwards did discuss in detail with pt that the drinking is contributi ng to his neurologic al issues Chronic ob structive pulmonary disease 33346849 J44.9 breathing is the same per patient not any worse, cough is the same as well does need refill of his inhalers Fall W19.XXXS patient reports he fell due to balance issues, weakness in nabila legs most likely related to his drinking will set him up with Dr. Aldana again for eval Injury of head 39732927 S09.90XS no LOC and CT at hospital showed no acute changes MRI done in april, will not need another MRI History of deep vein thrombosis 756922469 Z86.Miryam was on eliquis but stopped to do hx of brain bleed no ride to the hospital so he is unwilling to do a fu US to assess chronic DVT due to brain bleed because of blood thinner, he should not be on eliquis at this time but should have US to assess [id number] Cristhian Delgado [facility] [address] [facility] [facility] [place] [address] 04/19/2020 08:38:20 04/22/2020 15:44:19 [id number] Cristhian Delgado [facility] [address] [facility],[place] [address] 06/12/2020 14:07:08 06/12/2020 15:18:50 Harmful pattern of use of alcohol 05701479 F10.10 still drinking about 2 pint of hard liquor a day did discuss with patient about setting up with a rehab center and working with his advisor patient unwilling to stop drinking because of the withdrawal afterwards did discuss in detail with pt that the drinking is contributi ng to his neurologic al issues Chronic ob structive pulmonary disease 30895716 J44.9 breathing is the same per patient not any worse, cough is the same as well Neuropathy 758286146 G62 .9 will try on the 800 mg qd as patient said this was effective will slowly tirtate up the medication dosage [id number] Cristhian Delgado [facility] [address] [facility] [address] 04/11/2021 14:50:50 04/11/2021 16:21:09 Chronic obstructive pulmonary disease 28564958 J41.0 breathing is the same per patient not any worse, cough is the same as well Alcohol withdrawal 13586 0000 F10.931 has not had a drink in 1 mo but does plan to drink again though per patient in moderation recommend ed to not drink at all Secondary peripheral neuropathy 132778 G63 restarted gabapentin Harmful pa ttern of use of alcohol 79147583 F10.121 monitoring progress with drinking Pain of le ft shoulder joint 6469687947 4227814 M25.512 improving with at home PT [id number] Cristhian Delgado [facility] [address] [facility],[place] [address] 09/17/2023 10:23:16 09/17/2023 11:04:03 Depression screening 788614065 Z13.31 SCREENING NEGATIVE Harmful pa ttern of use of alcohol 82069591 F10.121 on naloxone campral buspar zoloft Gout 50598291 M10.9 quiet now Neuropathy 411741534 G62 .9 had been on gabapentin Chronic ob structive pulmonary disease [id number] J41.0 he is stable on the inhalers [id number] Cristhian Delgado [facility] [address],[place] [address] 10/18/2023 11:40:03 10/18/2023 12:58:27 Chronic obstructive pulmonary disease 45840623 J41.0 he is stable on the inhalers Harmful pa ttern of use of alcohol 30191463 F10.121 on naloxone campral buspar zoloft Tinea corporis 60997359 B35.4 between legs History of deep vein thrombosis 058789169 Z86.718 recurrent Insomnia 404973287 G47.0 0 [id number] Cristhian Delgado [facility] [address],[place] [address] 11/30/2023 10:27:17 11/30/2023 15:30:22 Acute exacerbation of chronic obstructive pulmonary disease 740661142 J44.1 start on pred and z radha Chronic ob structive pulmonary disease 70467277 J41.0 needs refiil [id number] Cristhian Delgado [facility] [address],[place] [address] 12/29/2023 10:02:26 12/29/2023 15:40:20 Pre-surgery evaluation 175940923 Z01.818 The patient was seen in the office today for pre-op evaluation . All medical conditions on patient's problem list were addressed and are currently stable, no interventi on needed at this time. Based on history and physical performed, the patient is cleared for surgery. Chronic ob structive pulmonary disease 87914020 J41.0 mild exacerbati oncan start prednisone taper after surgery [id number] Cristhian Delgado [facility] [address],[place] [address] 01/19/2024 10:45:59 01/19/2024 11:55:43 Acute exacerbation of chronic obstructive pulmonary disease 961600317 J44.1 seems stable now now acute changess Chronic ob structive pulmonary disease 96539391 J41.0 he is stable on the inhalers Neuropathy 975753117 G62 .9 had been on gabapentin Eczema 79627149 L30.9 Pain of bi lateral hands 1036856760 9505267 M79.642 M79.641 [id number] Cristhian Delgado [facility] [address],[place] [address] 01/17/2024 09:44:31 01/17/2024 11:46:28 Generalized rash 126463160 R21 start on combinatio n treat of pred and anti-funga lhas a f/u on 01/18 with MB in officereco mmended him evaluate at that timeskin culture was negative, no staph infection [id number] Cristhian Delgado [facility] [address],[place] [address] 03/22/2024 11:00:25 03/22/2024 11:45:12 Chronic obstructive pulmonary disease 35701561 J41.0 he is stable on the inhalers COVID-19 577287080 U07.1 on medrol and azith getting better Acute exac erbation of chronic obstructive pulmonary disease 929702429 J44.1 seems stable now now acute changesdoi ng bettergive n spacer [id number] Cristhian Delgado [facility] [address],[place] [address] 05/19/2024 14:12:21 05/19/2024 15:20:28 Chronic obstructive pulmonary disease 10529160 J41.0 he is stable on the inhalers Nummular eczema 71031548 L30.0 Dislocatio n of shoulder joint 996292111 S43.006D Bilateral pain of joint of hands 8110939381 7527991 M25.541 M25.542 Screening for malignant neoplasm of colon 380405749 Z12.11 Chronic bronchitis 84295 004 J42 Neuropathy 053239751 G62 .9 had been on gabapentin [id number] Cristhian Delgado [facility] [address],[place] [address] 06/07/2024 11:29:13 06/07/2024 12:15:01 Chronic obstructive pulmonary disease 14384885 J41.0 he is stable on the inhalers Dislocatio n of shoulder joint 758251957 S43.006D Nummular eczema 55248078 L30.0 Depression screening 171 617840 Z13.31 SCREENING NEGATIVE Bilateral pain of joint of hands 7255634373 4385931 M25.541 M25.542 Acute exac erbation of chronic obstructive pulmonary disease 472851705 J44.1 seems stable now now acute changesdoi ng bettergive n spacer [id number] [facility] [address],[place] [address] 10/10/2024 15:56:56 10/11/2024 10:30:30 Depression screening 962422063 Z13.31 SCREENING NEGATIVE Harmful pa ttern of use of alcohol 68506297 F10.121 on naloxone campral buspar zoloft Chronic ob structive pulmonary disease 71114781 J41.0 he is stable on the inhalers Eczema of lower leg 7623 56155 L30.9 7784406178 will use cream Secondary peripheral neuropathy 158547 G62.89 will cont gabapentin but consider change to duloxetine Health Concerns Section Related Observation LastModified by Organization Detai ls LastModified Time None Recorded Concern Status LastModified by Organization Details LastModified Time None Recorded Advance Directives Directive None Recorded Payers Insurance Date Sequence Insurance Name Policy Number Policy Ruiz Covered Member ID Ruiz Member ID Guarantor Name 05/19/2024 1 [facility] - DOS PRIOR TO 2022 - DUAL ELIGIBLE (MEDICARE REPLACEMENT/ADV ANTAGE - HMO) Edgardo Zavala [id number] Edgardo Zavala 05/19/2024 1 [place] [employer] Edgardo Sena Sally [id number] Edgardo Zavala 01/16/2025 1 [facility] - DOS ON OR AFTER 2022 - MEDICARE [place]VANTAGE [place]MED[place]ARE REPLACEMENT/ADV ANTAGE - PPO) Edgardo Zavala [id number] Edgardo Zavala 05/19/2024 1 [place] PRIOR TO 2022 - [facility] (MEDICAID) Edgardo Sally [id number] Edgardo Zavala Notes Date Note Type Note Provider Name a nd Address Organization Details Recorded Time 4 text/html ROS as noted in the HPI here for rechkrelates that had a rsh for mult weeks creams not helpfulstill smokeshaving a prob with the rash not going away Cristhian Delgado DO [address] [place], [address], [facility] 01/19/2024 11:54:47 5 text/html ROS as noted in the HPI here for rechk of his lungs since having covid was seen twice in ER and actually signed out AMA on second visit was told to stay due to lower O2 sat but went hometoday O2 sat 95% Cristhian Delgado DO [address] [place], [address], [facility] 03/22/2024 11:38:17 5 text/html ROS as noted in the HPI hwere for rechk right shoulder is pretty bad as of late since the dislocation episode back in januaryrelates that he has also had a problem with his short term memoryhas noticed for several monthsals o the neuropathy has been worse Cristhian Delgado DO [address] [place], [address], [facility] 05/19/2024 15:07:19 5 text/html Care [...] his motorcycle again Cristhian Delgado DO [address] [place], [address], [facility] 06/07/2024 12:12:26 5 text/html Care [...] his motorcycle again Cristhian Delgado DO [address] [place], [address], [facility] 10/10/2024 16:56:27
--- OUTSIDE RECORDS SUMMARY | 2025-02-17 16:43 | XMS_ITS | Data Portability ---
Author Organization [facility], Main Office Address [address] [place] [address] Care Team Providers Care Wire Bender Name Role Phone LAM BARAJAS - 2ND [...] deep vein thrombosis of lower extremitie s 753272473 Active 2017 IVC FILTER IN 2017 and bilateral thrombolys is SHELBI STREETER [address] [facility], [address], [place], [address] [place] [address] 8 12:36:34 Alcohol withdrawal delirium 1854579 Active 2017 Viridiana rainey [facility] 8 10:43:30 Chronic obstructiv e pulmonary disease 99731656 Active 2017 Viridiana rainey [facility] 8 10:43:38 Aspiration pneumonia 920538438 Active 2017 Viridiana rainey [facility] 8 10:43:47 Urinary tract infectious disease 22559514 Active 2017 Viridiana rainey [facility] 8 10:44:01 Tobacco dependence syndrome 53907243 Active 2017 Viridiana rainey [facility] 8 10:44:11 Peripheral nerve disease 028949156 Active 2017 Viridiana Miller brigid, [facility] 8 10:44:19 Anemia 130057549 Active 2017 Viridiana rainey, [facility] 8 10:44:24 Thrombocyt openic disorder 071787574 Active [address] , [address], [place], [address], [facility] 8 12:35:04 Chronic hepatitis 53306201 Active [address], [address], [place], [address], [facility] 8 12:35:27 Alcohol dependence 18265787 Active 2017 Giovani Juarez MD [address] [facility], [address], [place], [address], [facility] 8 12:06:43 Left upper quadrant pain 477288931 Active 2017 SHELBI Daly [address] , [address], [place], [address], [facility] 8 15:19:12 Cellulitis of buttock 22562378 Active 2022 ELIZABETH JACKSON NP [address] [facility], [address], [place], [address], [facility] 3 13:40:37 Harmful pattern of use of alcohol 21009005 Active 2022 ELIZABETH JACKSON NP [address], [address], [place], [address], [facility] 3 13:41:13 Open wound of buttock 486539480 Active 2022 ELIZABETH JACKSON NP [address], [address], [place], [address], [facility] 3 13:43:26 Problem Notes None recorded. Medical Equipment None Reported. Allergies Allergen ID Allergen Name Allergen Category Reaction Reaction Severity Criticality Documentation Date Start Date Code Code System Note Provider Name and Address Organization Details Recorded Time 69451 peanut allergeni c extract food,medi cation Not available Not available Not available 10/15/2022 08723 8 RxNorm peanu t butte r, facia l tere JACKSON NP [address] [facility], [address], [place], [address], [facility] 3 13:39:42 03929 raspberry extract food,medi cation Not available Not available Not available 10/15/2022 34296 69 RxNorm facia l tere JACKSON NP [address] [facility], [address], [place], [address], [facility] 3 13:40:02 Vitals Date Recorded Heart rate Respiratory rate Body temperature Systolic And Diastolic Provider Name and Address Organization Details Last Updated DateTime 10/15/2022 73 /min 18 /min 98.3 [degF] 91/55 mm[Hg] ELIZABETH JACKSON NP [address] [facility], [address], [place], [address], [facility] 3 13:33:48 Date Recorded Body temperature Oxygen saturation Heart rate Systolic And Diastolic Provider Name and Address Organization Details Last Updated DateTime 10/19/2022 98.3 [degF] 94 % 73 /min 91/55 mm[Hg] Cecilia Tucker MD [address] [facility], [address], [place], [address] , [facility] 3 06:30:21 Date Recorded Body weight Heart rate Respiratory rate Body temperature Oxygen saturation Systolic And Diastolic Provider Name and Address Organization Details Last Updated DateTime 3 97401.7 2 g 73 /min 18 /min 98.3 [degF] 94 % 91/55 mm[Hg] Violette Newell NP [address] [facility], [address], [place], [address], [facility] 3 11:10:43 Date Recorded Body weight Heart rate Respiratory rate Body temperature Oxygen saturation Systolic And Diastolic Provider Name and Address Organization Details Last Updated DateTime 3 81487.7 2 g 73 /min 18 /min 98.3 [degF] 94 % 91/55 mm[Hg] Violette Newell, [place] [address], [address], [place], [address], [facility] [facility] 3 12:59:44 Date Recorded Body weight Heart rate Respiratory rate Body temperature Oxygen saturation Systolic And Diastolic Provider Name and Address Organization Details Last Updated DateTime 3 76894.7 2 g 73 /min 18 /min 98.3 [degF] 94 % 91/55 mm[Hg] Violette Newell, [place] [address], [address], [place], [address], [facility] [employer] [facility] 3 10:56:55 Social History Question Answer Notes LastModified by [employer] Details LastModified Time Tobacco Smoking Status Current Every Day Smoker Viridiana Miller brigid, [facility] [employer] [facility] 05/19/2017 10:55:27 Do You Have An Advance Directive? Yes [email or web address] Information not available 10/15/2022 How Many Years Have You Consumed Alcohol? 44 Information not available 05/19/2017 What Is Your Code Status? Full Code [email or web address] Information not available 10/15/2022 Which Illicit Or Recreational Drugs Have You Used? Marijuana [email or web address] Information not available 10/15/2022 How Many Days In The Past Year Have You Had A Heavy Drinking Consumption (4+ Female, 5+ Male)? 365 Drinks 1 Pint Of [place] And 2 Nips/day, Longest Period Of Sobriety 6 Mos Information not available 05/19/2017 Do You Have A Medical Power Of Griddle Attendant? Yes Information not available 05/19/2017 What Was The Date Of Your Most Recent Tobacco Screening? 10/15/2022 [email or web address] Information not available 10/15/2022 How Much Tobacco [...] vector-nr, rS-Ad26, PF, 0.5 mL 2 completed [facility] 10/22/2022 16:48:27 Tdap 2 completed [facility] 10/22/2022 16:48:42 pneumococcal polysaccharide PPV23 1 completed [facility] 05/27/2023 13:19:59 influenza, unspecified formulation 3 completed [facility] 05/27/2023 13:21:04 influenza, unspecified formulation 4 completed [facility] 05/27/2023 13:21:19 SARS-COV-2 (COVID-19) vaccine, UNSPECIFIED 3 completed [facility] 05/27/2023 13:21:41 Past Encounters Encounter ID Performer Location Encounter Start Date Encounter Closed Date Diagnosis/Indication Diagnosis SNOMED-CT Code Diagnosis ICD10 Code Diagnosis IMO Codes Diagnosis Note [id number] [address] [place] [address] 05/19/2017 10:32:28 05/25/2017 14:07:44 Bilateral deep vein thrombosis of lower extremities 654587452 I82.493 See HPIs/p IVC filter Dec, s/p EKOS catheter thrombolys is 3/2Eliquis 10 mg BID until 05/22 then 5 mg BIDMonitor for increase in pain/edema PT/OT eval and treat Alcohol wi thdrawal delirium 1257913 F10.231 Hx of heavy alcohol use with DTs in hospitalRi speridone 0.25 mg TIDThiamin e 100 mg dailyFolic acid 1 mg dailyMonit or moodNEG consult prn Aspiration pneumonia 422 772804 J69.0 Augmentin to complete courseAdd probioticA spiration precaution sSLP eval and treat Urinary tr act infectious disease 55768544 N30.00 Complete antibiotic as aboveMonit or sxs Chronic ob structive pulmonary disease 67874666 J41.8 Duonebs prnSupplem ental O2 prnMonitor respirator y status Tobacco de pendence syndrome 47216781 F17.210 Nicotine patchEncou rage smoking cessation Peripheral nerve disease 459185135 G64 Secondary to ETOH abuseMonit or sxs Anemia 215248329 D64.89 Repeat and monitor CBC [id number] MD MARKUS Melchor [address] [address] 05/24/2017 10:26:07 05/26/2017 12:52:00 Bilateral deep vein thrombosis of lower extremities 441838251 I82.493 see HPIEliquis 5 mg bidmonitor with restart of medication on dose decreasing from 10 mg bid Alcohol wi thdrawal delirium 0496708 F10.231 see HPIthiamin e 100 mg qdmonitor for sx Tinea cruris 528394766 B 35.6 nystatin powdermoni tor to resolution Peripheral nerve disease 504274204 G64 start neurontin 100 mg tidtitrate for effect Urinary tr act infectious disease 68377042 N10 complete abmonitor for sx Chronic ob structive pulmonary disease 41531575 J41.1 at baselineco ntin[place] [id number] [address] [place] [place] [address] 06/01/2017 10:32:02 06/10/2017 14:19:14 Bilateral deep vein thrombosis of lower extremities 353452167 I82.493 see HPIEliquis 5 mg bidF/u with PCP Alcohol wi thdrawal delirium 7200808 F10.231 see HPIthiamin e 100 mg qdd/c risperidal Home services in place with social work and psych consults Cihqui t motivated to remain sober Peripheral nerve disease 275220487 G64 Increase neurontin 200 mg tidf/u with PCP Urinary tr act infectious disease 00947269 N10 antibiotic course completeap pears resolved Chronic ob structive pulmonary disease 02376793 J41.1 at baselineco [place]tin[place] [id number] [address] 09/16/2017 12:30:46 09/28/2017 15:08:07 Chronic hepatitis 57581307 K70.10 PT/OT eval and treatfollo w LFTsencour age ETOH abstinence psych eval and treat for abstinence follow up with GI prn Thrombocyt openic disorder 826947588 D69.59 monitor labsPlts corrected currently from 70 to 203 Chronic ob structive pulmonary disease 40403619 J41.8 duoneb q 4 hrs prnmonitor respirator y status Peripheral nerve disease 116810620 G64 neurontin 300 mg q 8 hrswill change to 300 mg q 9 am and 2 pm and 600 mg q hsc/o foot pain increased at nightmonit or pain Bilateral deep vein thrombosis of lower extremities 333529210 I82.593 eliquis 2.5 mg bidIVC filter in placemonit or labs Alcohol wi thdrawal delirium 1501719 F10.231 folic acid 1 mg qdmultivit e qdthiamine qdmonitor for withdrawal ativan 0.5 mg q 4 hrs prn added Tobacco de pendence syndrome 34922650 F17.210 nicotine patch 21 mg/24 hr qdmonitor for withdrawal [id number] MD ASHLEY Melchor AT [address] [address] 09/18/2017 12:00:41 09/28/2017 15:44:02 Asthenia 17297164 R53.1 see HPIPT OT eval and treatmonit or lytes Chronic hepatitis 345676 07 K73.2 see HPIseconda ry to ETOHGI eval prn Alcohol dependence 69987 003 F10.288 extended discussion with patient concerning use of etoh and effect on health. when patient returned after SNF stay in 05/16 again began drinking 1 pint and 1 nip per daypatient states understand ing that continuing with prior drinking habits will result in Thrombocyt openic disorder 667523958 D69.59 repeat and monitor cbc Bilateral deep vein thrombosis of lower extremities 683785420 I82.493 see HPIEliquis 2.5 mg bidmonitor with restart of medication IVC filter in place Chronic ob structive pulmonary disease 85138335 J41.1 at baselinedu onebs in place [place] [id number] [address] [address] 09/20/2017 16:11:59 09/28/2017 15:48:42 Chronic hepatitis 32360999 K70.10 PT/OT eval and treatfollo w LFTs weekly and once he is outpt with pcpencoura ge ETOH abstinence follow up with GI prnwill get ortho BPs bid x 2 days Thrombocyt openic disorder 290429060 D69.59 monitor labs, improved Chronic ob structive pulmonary disease 34488365 J41.8 duoneb q 4 hrs prnmonitor respirator y statusenco urage pt to stop smoking Peripheral nerve disease 254899533 G64 neurontin 300 mg q 9 am and 2 pm and 600 mg q hsmonitor pain Bilateral deep vein thrombosis of lower extremities 060136759 I82.593 eliquis 2.5 mg bidIVC filter in placemonit or labs Alcohol wi thdrawal delirium 6879620 F10.231 folic acid 1 mg qdmultivit e qdthiamine qdativan 0.5 mg q 4 hrs prn Tobacco de pendence syndrome 49750660 F17.210 nicotine patch 21 mg/24 hr qd [id number] [address]aly AT [address] [address] 09/21/2017 15:09:20 09/28/2017 16:05:00 Alcohol dependence 20799741 F10.20 ok to dc home tomorrowst rongly encouraged abstinence /AA Chronic hepatitis 743170 07 K70.10 encourage ETOH abstinence follow up with GI prn and pcp Bilateral deep vein thrombosis of lower extremities 492617927 I82.593 eliquis 2.5 mg bidIVC filter in place Chronic ob structive pulmonary disease 82220076 J41.8 duoneb q 4 hrs prnencoura ge pt to stop smoking Left upper quadrant pain 829349571 R10.12 pt will f/u with PCP as out pt for further testing if needed [id number] [address] AT [address] [address] 10/02/2017 16:10:48 10/20/2017 12:10:03 Alcohol dependence 21985262 F10.20 see hpiPT OT for conditioni ng and mobilityst rongly encouraged abstinence Chronic ob structive pulmonary disease 35278330 J41.8 duoneb q 4 hrs prnencoura ge pt to stop smoking Anemia 989588790 D64.9 monitor cbc Peripheral nerve disease 139139651 G64 neurontin 300 mg q 9 am and 2 pm and 600 mg q hsmonitor pain Bilateral deep vein thrombosis of lower extremities 959102877 I82.593 resume eliquis 2.5 mg bidIVC filter in placedue to alcoholism he would not be a candidate for coumadin [id number] MD ROSMERY MelchorLEY AT [address] [address] 10/05/2017 15:13:51 10/20/2017 13:22:05 Asthenia 91877957 R53.1 see HPImultifa ctorial PT OT eval and treatmonit or lytes Alcohol dependence 42242 003 F10.288 Repeat extended discussion with patient concerning use of etoh and effect on health. patient states understand ing that continuing with prior drinking habits will result in Chronic hepatitis 888886 07 K73.2 see HPIseconda ry to ETOHGI eval prn Bilateral deep vein thrombosis of lower extremities 079757709 I82.493 see HPIEliquis 2.5 mg bidmonitor with restart of medication IVC filter in place Peripheral nerve disease 264039494 G64 increase gabapentin to 300 mg tidmonitor for effect [id number] [address] 10/07/2017 14:48:18 10/20/2017 14:00:14 Alcohol dependence 30389294 F10.288 encouraged to abstain from ETOHfollow up with PCP Chronic hepatitis 361723 07 K73.2 secondary to ETOHfollow up with PCP Bilateral deep vein thrombosis of lower extremities 498441664 I82.493 Eliquis 2.5 mg bidspoke with him at length about needing to contact PCP and pharmacy to get prior authorizat ion form for eliquisIVC filter in placefollo w up with PCP Peripheral nerve disease 273153255 G64 gabapentin to 300 mg tidtylenol as neededfoll ow up with PCP [id number] ELIZABETH JACKSON NP [address] [address] 10/15/2022 13:30:52 10/20/2022 10:25:28 Cellulitis of buttock 61068856 L03.317 Continue levaquin 500 mg daily x 3 daysAdd probiotic bid x 7 daysStill with inflammati on/indurat ion around woundTrend sx., VS, labsCBC, BMP q wednesday Alcohol dependence 29943 003 F10.288 s/p phenobarb protocol in hosp., no sx. of withdrawal Encourage abstinence Open wound of buttock 26 6158639 S31.829A With associated abscess and cellulitis Debrided 10/08Finish abx. as aboveCurre nt tx. moist kerlix and DCD daily and prnRefer to [facility] wound clinic for eval and tx. - pt. concerned about transporta tion - if too expensive can refer to Wound team hereMonito r wound, VS, labs for change Chronic ob structive pulmonary disease 23366398 J41.8 Combivent respimat 1 inh qid prnAlbuter ol MDI q4 hr prn - requesting to keep at bedside and self administer Continues to smoke Tobacco de pendence syndrome 00522375 F17.210 Continues to smoke hereEnc. 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 for sobrietyth iamine 100 mg dailyfolic acid 1 mg dailyMVI dailywill monitor Open wound of buttock 26 0328159 S31.829A s/p I&Dantibio tics completedw ound care per surgery recommenda tionsfollo w up wound clinic Chronic ob structive pulmonary disease 41746458 J41.8 Combivent 18-103: 1 puff q6h prnalbuter ol HFA: 1 puff q4h prnwill monitor Asthenia 14302499 R53.1 PT/OTwill monitor and support s needed History of deep vein thrombosis 935284900 Z86.718 apixaban 5 mg bidwill monitor [id number] Violette Newell NP [address] [address] 10/22/2022 11:09:43 10/26/2022 10:58:25 Harmful pattern of use of alcohol 53168255 F10.10 social 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 job 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 for 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 for sobrietyno tremor noted, anxious at baselineth iamine 100 mg dailyfolic acid 1 mg dailyMVI dailywill monitor Open wound of buttock 26 3593574 S31.829A s/p I&D on 10/08/22IV and po antibiotic s completed for cellulitis wound care per surgery recommenda tionsfollo w up wound clinic and dressings dailymonit or cbc and labs weekly Chronic ob structive pulmonary disease 11506880 J41.8 Combivent 18-103: 1 puff q6h prnalbuter ol HFA: 1 puff q4h prnwill monitor Asthenia 71872811 R53.1 PT/OTwill monitor and support s needed History of deep vein thrombosis 303693297 Z86.718 apixaban 5 mg bids/p ivc filterwill monitor Alcohol dependence 54964 003 F10.288 s/p phenobarb protocol in hosp., no sx. of withdrawal Encourage abstinence Tobacco de pendence syndrome 88450876 F17.210 Continues to smoke hererefuse s nicotine patchEnc. 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 of withdrawal Encourage abstinence Tobacco de pendence syndrome 64891908 F17.210 Continues to smoke here now on scheduled breaks with staffrefus es nicotine patchEnc. abstinence Intertrigo 53216437 L30. 4 nystatin topically powder bid and prn x 14 daysmonito r Neuropathy 375453884 G62 .[address] De La Cruz this weekend09/30 she recommends 2% gel diclofenac topically 2 gram to bilateral feet bid, will agree todaymonit or for relief [id number] Violette Newell NP [address] [address] 10/27/2022 10:55:47 10/29/2022 09:47:39 Open wound of buttock 369224776 S31.829A s/p I&D on 10/08/22IV and po antibiotic s completed for cellulitis follow up wound clinic and dressings every 3rd day with stacy westfall to wound SECURITY SYSTEMS ENGINEER herecurren t order to left buttock wound irrigiate with wound wash, pack with hydrofera blue-moist en with ns, squeeze excess out. cover wtih zetuvit plus silicone bordered dressing q 3 dayscont protein liquid or supplement s to add in wound healingmon itor outpt with pcp and vna Intertrigo 39782378 L30. 4 nystatin topically powder bid and prn until healedvna to assess for resolution monitor outpt Neuropathy 415966302 G62 .[address] De La Cruz this weekend2% gel diclofenac topically 2 gram to bilateral feet bidmonitor for relief outpt, pt/ ot to assess for safety, strengthen ing and balance Harmful pa ttern of use of alcohol 33641337 F10.10 social work job titles for 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 for sobrietyno tremor noted, anxious at baselineth iamine 100 mg dailyfolic acid 1 mg dailyMVI dailywill monitor outpt with pcp Chronic ob structive pulmonary disease 35106022 J41.8 Combivent 18-103: 1 puff q6h prnalbuter ol HFA: 1 puff q4h prnmonitor outpt with pcp Asthenia 93429537 R53.1 improved herewill monitor and support s needed outptmonit or outpt, pt/ ot to assess for safety, strengthen ing and balance, offloading pressure to wound, and safety conditions at home History of deep vein thrombosis 144891729 Z86.718 apixaban 5 mg bids/p ivc filterwill monitor outpt Alcohol dependence 04249 003 F10.288 s/p phenobarb protocol in hosp., no sx. of withdrawal Encourage abstinence outpt and services as needed Tobacco de pendence syndrome 46031194 F17.210 Continues to smoke here now on scheduled breaks with staff, plans to continue smokingref uses nicotine patchEnc. abstinence Health Concerns Section Related Observation LastModified by Organization Detai ls LastModified Time None Recorded Concern Status LastModified by Organization Details LastModified Time None Recorded Advance Directives Directive Y: Payers Insurance Date Sequence Insurance Name Policy Number Policy Ruiz Covered Member ID Uriz Member ID Guarantor Name 10/14/2022 1 [facility] - HEALTH NET PLAN (MEDICAID HMO) [id number] Edgardo Zavala [id number] Edgardo Zavala 10/26/2022 1 [facility] - DOS ON OR AFTER 2022 - MEDICARE ADVANTAGE [place]MEDICARE REPLACEMENT/ADV ANTAGE - PPO) Edgardo Zavala [id number] Edgardo Zavala Notes Date Note Type Note Provider Name and Address Organization Details Recorded Time 10/15/2022 text/html Edgardo is seen today for initial intake. He is a 62 yo male admitted to [facility] 10/14/22 from [facility] for continued care and rehab after a brief hosp. related to a buttock wound and cellulitis. He presented to [facility] 10/07 with several days of buttock pain [...] with DCD. Needs follow up with [facility] wound clinic, ? wound vac. Upon d/c abx. changed to levaquin x 3 more days.DVT - remained on eliquisTobacco use - nicoderm patchCOPD - stable PMH: ETOH abuse, anemia, BLE DVTs IVC filter 2017 and bilat. thrombolysis, chronic hepatitis, COPD, PVD, thrombocytopenia, tobacco use, UTIMOLST: full code ELIZABETH JACKSON NP [address] [facility], [address], [place], [address], [facility] [employer] 10/15/2022 14:49:09 10/19/2022 text/html This 62 year old man was admitted to [facility] on 10/14/22for rehab and continued care. 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 He was having several [...] - signed 10/15/22 Cecilia Tucker MD [address] [facility], [address], [place], [address], [facility] [employer] 10/19/2022 14:28:20 10/22/2022 text/html Patient is seen for an acute rounding visit today. 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 He was having several [...] - signed 10/15/22 Violette Newell NP [address] [facility], [address], [place], [address], [facility] [employer] 10/22/2022 11:32:05 10/26/2022 text/html Patient is seen [...] 62 year old man was admitted to [facility] on 10/14/22for rehab and continued care after presenting to the ER at [facility] on 10/07/22. He was having several [...] - signed 10/15/22 Violette Newell NP [address] [facility], [address], [place], [address], [facility] [employer] 10/26/2022 13:39:46 10/27/2022 text/html Patient is seen for a discharge summary visit today. Edgardo is a 62 year old man was admitted to [facility] on 10/14/22for rehab and continued care after presenting to the ER at [facility] on 10/07/22. He was having several [...] 3 days now according to the wound [employer]ITY SYSTEM[employer] ENGINEER. His groin is improving with the nystatin [...] - signed 10/15/22 Violette Newell, ARN[place] [address] [facility], [address], [place], [address], [facility] 10/28/2022 10:11:07
--- OUTSIDE RECORDS SUMMARY | 2025-02-17 16:44 | XMS_ITS | Clinical Summary ---
Author Organization [facility] Address [address] [place] [address] Phone Care Team Providers Care Inventory Checker Name Role Phone Cristhian Delgado DO Primary Care Provider [phone] Allergies Active Allergy Reactions Criticality Noted Date [...] - 12/21/2024 2:58 PM EDT Hospital Encounter [facility] [address] [place] [address] Rai Gonzalez MD Goebel, Mathew, MD Jones, Christopher, MD Rasul, Yar M, MD Mohani, Priya, MD Hypoxia (Primary Dx); ETOH abuse; Chest pain, unspecified type; Viral pneumonia; Acute hypoxic respiratory failure ([facility] V24, [facility] V28) Discharge Disposition: Left Against Medical Advice from Last 3 Months Surgical History Surgery Date Site/Laterality Comments IVC FILTER Medical History Medical History Date Comments COPD (chronic obstructive pulmonary disease) ( S/HCC V24, [facility] V28) Neuropathy Social History Tobacco Use Types [...] MOLECULAR STUDY Routine 12/21/2024 1:59 AM EDT [id number], RSV, FLU A AND B QUALITATIVE RT-PCR, [...] Positive( A) Negative 12/21/2024 12:28 PM EDT [facility] Stool Rectum structure / Unknown Non-blood Collection / Unknown 12/21/2024 11:46 AM EDT 12/21/2024 11:52 AM EDT Karolyn RABAGO LAB BODY FLUIDS AND STOOLS OR DERABLES Final Result [facility] [address] [place] [address], [place] [phone] * (ABNORMAL) Drug abuse screen 8a panel, urine (12/21/2024 11:46 AM EDT) [facility] Amphetamine Screen, Ur Negative Negative LAB CHEMISTRY METHOD 12:28 PM EDT [facility] Comment:Certain OTC medicati ons containing ephedrine, phenylephrine, pseudoephedrine and phenylpropanolamine can cause false positive results. Barbiturate Screen, Ur Positive(A ) Negative LAB CHEMISTRY METHOD 12:28 PM EDT [facility] Benzodiazepine Screen, Ur Negative Negative LAB CHEMISTRY METHOD 12:28 PM EDT [facility] Cocaine Screen, Ur Negative Negative LAB CHEMISTRY METHOD 12:28 PM EDT [facility] Opiate Screen, Ur Negative Negative LAB CHEMISTRY METHOD 12:28 PM EDT [facility] Cannabinoid (THC) Screen, Ur Negative Negative LAB CHEMISTRY METHOD 12:28 PM EDT [facility] Comment:Specimens from patie nts taking pantoprazole sodium (Protonix) have been shown to produce false positive results. Oxycodone Screen, Ur Negative Negative LAB CHEMISTRY METHOD 12:28 PM EDT [facility] Fentanyl, Ur Negative Negative LAB CHEMISTRY METHOD 12:28 PM EDT [facility] Urine Urine specimen obtained by clean catch procedure / Unknown Non-blood Collection / Unknown 12/21/2024 11:46 AM EDT 12/21/2024 11:52 AM EDT Narrative [facility] - 12/21/2024 12:28 PM EDT Assay [...] MD LAB URINE ORDERABLES Final Resul t [facility] [address] [place] [address], * ECG 12 lead (12/21/2024 6:33 AM EDT) Only the most recent of2 resultswithin the time period is included. Ventricular Rate ECG 77 BPM GEMUSE Atrial Rate 77 BPM GEMUSE P-R Interval 116 ms GEMUSE QRS Duration 130 ms GEMUSE Q-T Interval 416 ms GEMUSE QTc 470 ms GEMUSE P Wave Turner 35 degrees GEMUSE R Turner -68 degrees GEMUSE T Turner 31 degrees GEMUSE ECG Interpretation Normal sinus [...] K/mcL LAB HEMETOLOGY METHOD 12/21/2024 6:31 AM [facility] RBC 4.20(L) 4.50 - 5.50 M/mcL LAB HEMETOLOGY METHOD 12/21/2024 6:31 AM [facility] Hemoglobin 12.2(L) 13.5 - 17.5 g/dL LAB HEMETOLOGY METHOD 12/21/2024 6:31 AM [facility] Hematocrit 37.6(L) 42.0 - 54.0 % LAB HEMETOLOGY METHOD 12/21/2024 6:31 AM [facility] MCV 90.2 79.0 - 98.0 FL LAB HEMETOLOGY METHOD 12/21/2024 6:31 AM [facility] MCH 29.3 27.0 - 32.0 pcg LAB HEMETOLOGY METHOD 12/21/2024 6:31 AM [facility] MCHC 32.4 32.0 - 37.0 g/dL LAB HEMETOLOGY METHOD 12/21/2024 6:31 AM [facility] RDW 17.1(H) 11.0 - 15.0 % LAB HEMETOLOGY METHOD 12/21/2024 6:31 AM [facility] Platelets 142 130 - 400 K/mcL LAB HEMETOLOGY METHOD 12/21/2024 6:31 AM [facility] MPV 10.5 7.0 - 11.0 FL LAB HEMETOLOGY METHOD 12/21/2024 6:31 AM [facility] NRBC 0.0 <1.0 % LAB HEMETOLOGY METHOD 12/21/2024 6:31 AM [facility] NRBC Absolute 0.00 <0.10 K/mcL LAB HEMETOLOGY METHOD 12/21/2024 6:31 AM [facility] Neutrophils Relative 65.9 % LAB HEMETOLOGY METHOD 12/21/2024 6:31 AM [facility] Lymphocytes Relative 20.2 % LAB HEMETOLOGY METHOD 12/21/2024 6:31 AM [facility] Monocytes Relative 10.9 % LAB HEMETOLOGY METHOD 12/21/2024 6:31 AM [facility] Eosinophils Relative 2.1 % LAB HEMETOLOGY METHOD 12/21/2024 6:31 AM [facility] Basophils Relative 0.5 % LAB HEMETOLOGY METHOD 12/21/2024 6:31 AM [facility] Immature Granulocytes Relative 0.4 % LAB HEMETOLOGY METHOD 12/21/2024 6:31 AM [facility] Neutrophils Absolute 3.76 1.50 - 7.00 K/mcL LAB HEMETOLOGY METHOD 12/21/2024 6:31 AM [facility] Lymphocytes Absolute 1.15 1.00 - 5.00 K/mcL LAB HEMETOLOGY METHOD 12/21/2024 6:31 AM [facility] Monocytes Absolute 0.62 0.20 - 1.00 K/[facility] LAB HEMETOLOGY METHOD 12/21/2024 6:31 AM EDT [facility] Eosinophils Absolute 0.12 0.00 - 0.50 K/[facility] HEMETOLOGY METHOD 12/21[facility]24 [facility] Basophils Absolute 0.03 0.00 - 0.20 K/[facility] LAB HEMETOLOGY METHOD 12/21/2024 6:31 AM EDT [facility] Immature Granulocytes Absolute 0.02 0.00 - 0.03 K/[facility] HEMETOLOGY METHOD 12/21/2024 6:31 AM [facility] Blood Venous blood specimen / Unknown Venipuncture / Unknown 12/21/2024 5:09 AM EDT 12/21/2024 5:59 AM EDT us Boom Nagel MD LAB BLOOD ORDERABLES Final Result [facility] [address] [place] [address], * Basic metabolic panel (12/21/2024 5:09 AM EDT) Sodium 135 133 - 145 mmol/L LAB CHEMISTRY METHOD 12/21/2024 7:41 AM [facility] Potassium 4.0 3.5 - 5.5 mmol/L LAB CHEMISTRY METHOD 12/21/2024 7:41 AM [facility] Chloride 98 96 - 110 mmol/L LAB CHEMISTRY METHOD 12/21/2024 7:41 AM [facility] CO2 29 21 - 32 mmol/L LAB CHEMISTRY METHOD 12/21/2024 7:41 AM [facility] Anion Gap 8 3 - 11 LAB CHEMISTRY METHOD 12/21/2024 7:41 AM [facility] Glucose 94 70 - 100 mg/dL LAB CHEMISTRY METHOD 12/21/2024 7:41 AM EDT [facility] BUN 15 5 - 25 mg/dL LAB CHEMISTRY METHOD 12/21/2024 7:41 AM EDT [facility] Creatinine 0.72 0.70 - 1.30 mg/dL LAB CHEMISTRY METHOD 12/21/2024 7:41 AM T [facility] eGFR 102 >=60 mL/min/1. 73m2 LAB CHEMISTRY METHOD 12/21/2024 7:41 AM EDT [facility] Comment:Calculation based on the Chronic Kidney Disease Epidemiology Collaboration (CKD-EPI) equation refit without adjustment for race. BUN/Creatinine Ratio 20.8 LAB CHEMISTRY METHOD 12/21/2024 7:41 AM [facility] Calcium 8.6 8.5 - 10.5 mg/dL LAB CHEMISTRY METHOD 12/21/2024 7:41 AM T [facility] Blood Venous blood specimen / Unknown Venipuncture / Unknown 12/21/2024 5:09 AM EDT 12/21/2024 5:59 AM EDT us Boom Nagel MD LAB BLOOD ORDERABLES Final Result [facility] [address] [place] [address], * Respiratory virus panel molecular study (12/21/2024 1:59 AM EDT) Pathologist [facility] Adenovirus Detection by PCR Not Detected Not Detected LAB MICROBIOLOGY METHOD 12/21/2024 2:56 AM EDT [facility] Influenza A PCR Not Detected Not Detected LAB MICROBIOLOGY METHOD 12/21/2024 2:56 AM T [facility] Influenza B PCR Not Detected Not Detected LAB MICROBIOLOGY METHOD 12/21/2024 2:56 AM EDT [facility] Coronavirus 229E Not Detected Not Detected LAB MICROBIOLOGY METHOD 12/21/2024 2:56 AM EDT [facility] Coronavirus HKU1 Not Detected Not Detected LAB MICROBIOLOGY METHOD 12/21/2024 2:56 AM EDT [facility] Coronavirus OC43 Not Detected Not Detected LAB MICROBIOLOGY METHOD 12/21/2024 2:56 AM EDT [facility] Coronavirus NL63 Not Detected Not Detected LAB MICROBIOLOGY METHOD 12/21/2024 2:56 AM EDT [facility] Parainfluenza Virus 1 Not Detected Not Detected LAB MICROBIOLOGY METHOD 12/21/2024 2:56 AM EDT [facility] Parainfluenza Virus 2 Not Detected Not Detected LAB MICROBIOLOGY METHOD 12/21/2024 2:56 AM EDT [facility] Parainfluenza Virus 3 Not Detected Not Detected LAB MICROBIOLOGY METHOD 12/21/2024 2:56 AM EDT [facility] Parainfluenza Virus 4 Not Detected Not Detected LAB MICROBIOLOGY METHOD 12/21/2024 2:56 AM EDT [facility] RSV PCR Not Detected Not Detected LAB MICROBIOLOGY METHOD 12/21/2024 2:56 AM EDT [facility] Human Metapneumovirus A and B Not Detected Not Detected LAB MICROBIOLOGY METHOD 12/21/2024 2:56 AM EDT [facility] Rhinovirus/Entero virus Not Detected Not Detected LAB MICROBIOLOGY METHOD 12/21/2024 2:56 AM EDT [facility] Bordetella pertussis Not Detected Not Detected LAB MICROBIOLOGY METHOD 12/21/2024 2:56 AM EDT [facility] Bordetella parapertussis Not Detected Not Detected LAB MICROBIOLOGY METHOD 12/21/2024 2:56 AM EDT [facility] Mycoplasma pneumo by PCR Not Detected Not Detected LAB MICROBIOLOGY METHOD 12/21/2024 2:56 AM EDT [facility] Chlamydia pneumoniae Not Detected Not Detected LAB MICROBIOLOGY METHOD 12/21/2024 2:56 AM EDT [facility] SARS COV-2 Not Detected Not Detected LAB MICROBIOLOGY METHOD 12/21/2024 2:56 AM EDT [facility] Swab Structure of right anterior naris / Unknown Non-blood Collection / Unknown 12/21/2024 1:59 AM EDT 12/21/2024 2:01 AM EDT Narrative [facility] - 12/21/2024 2:56 AM EDT Testing was performed using the [employer] Respiratory Pathogen PCR Assay. All results must [...] MICROBIOLOGY - GENERAL OR DERABLES Final Result [facility] [address] [place] [address], * [id number], RSV, Influenza A and B qualitative RT-PCR (12/20/2024 10:53 PM EDT) Influenza A PCR Not Detected Not Detected LAB MICROBIOLOGY METHOD 12/21/2024 12:20 AM EDT [facility] Influenza B PCR Not Detected Not Detected LAB MICROBIOLOGY METHOD 12/21/2024 12:20 AM EDT [facility] RSV PCR Not Detected Not Detected LAB MICROBIOLOGY METHOD 12/21/2024 12:20 AM EDT [facility] SARS COV-2 Not Detected Not Detected LAB MICROBIOLOGY METHOD 12/21/2024 12:20 AM EDT [facility] Swab Both anterior nares / Unknown Non-blood Collection / Unknown 12/20/2024 10:53 PM EDT 12/20/2024 11:34 PM EDT Mario Quach MD LAB MICROBIOLOGY - GENERAL ORDAnh ZARCO Final Result Performing Organization Address City/[facility]/ZIP Co de Phone Number [facility] [address] [place] [address], [place] [phone] * B-Type Natriuretic Peptide (BNP) (12/20/2024 9:27 PM EDT) BNP 20 <=100 pcg/mL LAB CHEMISTRY METHOD 12/20/2024 10:12 PM EDT [facility] Blood Venous blood specimen / Unknown Venipuncture / Unknown 12/20/2024 9:27 PM EDT 12/20/2024 9:38 PM EDT Rai Gonzalez MD LAB BLOOD ORDERABLES Final Resul t Performing Organization Address [facility]/ZIP Co de Phone Number [facility] [address] [place] [address], [place] [phone] * CT Angio Chest wo and/or w [...] angiography chest with contrast. 3D Postprocessing. Comparison: CT/ND/SR - CHEST ANGIOGRAPHY CT - 03/21/2023 08:08 [...] angiography chest with contrast. 3D Postprocessing. Comparison: CT/ND/SR - CHEST ANGIOGRAPHY CT - 03/21/2023 08:08 [...] LAB CHEMISTRY METHOD 12/20/2024 9:33 PM EDT [facility] Blood Venous blood specimen / Unknown Venipuncture / Unknown 12/20/2024 8:56 PM EDT 12/20/2024 9:03 PM EDT Narrative [facility] - 12/20/2024 9:33 PM EDT High levels of biotin in samples may falsely decrease hsTroponin values. Use caution when interpreting hsTroponin results in patients taking biotin who exhibit renal impairment (eGFR <60) or in patients taking more than 20 mg/day of biotin. us Rai Gonzalez MD LAB BLOOD ORDERABLES Final Resul t [facility] [address] [place] [address], * XR Chest 2 Views (12/20/2024 8:46 PM EDT) Anatomical Region Laterality Modality Body Radiographic Mirella ging 12/20/2024 10:4 8 PM EDT Impressions 12/20/2024 10:48 PM EDT Patchy bilateral infiltrates. This document has been electronically signed by: Temo Llanos MD on 12/20/2024 22:48:02 Narrative 12/20/2024 10:48 PM EDT INDICATION: chest pain 2 view chest x-ray Comparison: DX/ND/SR - XR CHEST 2 VW - 03/17/24 14:46 EST Findings: No consolidation or effusion. Normal size heart. No acute fracture. Patchy bilateral infiltrates. Procedure Note Temo Llanos MD - 12/20/2024 INDICATION: chest pain 2 view chest x-ray Comparison: DX/ND/SR - XR CHEST 2 VW - 03/17/24 [...] LAB COAGULATION METHOD 12/20/2024 8:24 PM EDT [facility] Blood Venous blood specimen / Unknown Venipuncture / Unknown 12/20/2024 7:52 PM EDT 12/20/2024 8:06 PM EDT us Rai Gonzalez MD LAB BLOOD ORDERABLES Final Resul t Performing Organization Address City/[facility] de Phone Number [facility] [address] [place] [address], [place] [phone] * Protime-INR (12/20/2024 7:52 PM EDT) [facility] Protime 13.1 10.6 - 13.9 sec LAB COAGULATION METHOD 12/20/2024 8:24 PM EDT [facility] INR 1.1 LAB COAGULATION METHOD 12/20/2024 8:24 PM EDT [facility] Blood Venous blood specimen / Unknown Venipuncture / Unknown 12/20/2024 7:52 PM EDT 12/20/2024 8:06 PM EDT us Rai Gonzalez MD LAB BLOOD ORDERABLES Final Resul t Performing Organization Address [facility]/ZIP Co de Phone Number [facility] [address] [place] [address], [place] [phone] * (ABNORMAL) Ethanol (12/20/2024 7:52 PM EDT) Ethanol Level 211(H) 0 - 10 mg/dL LAB CHEMISTRY METHOD 12/20/2024 8:37 PM [facility] Blood Venous blood specimen / Unknown Venipuncture / Unknown 12/20/2024 7:52 PM EDT 12/20/2024 8:06 PM EDT us Rai Gonzalez MD LAB BLOOD ORDERABLES Final Resul t [facility] [address] [place] [address], * (ABNORMAL) Comprehensive Metabolic Panel (CMP) (12/20/2024 7:52 PM EDT) Pathologist [facility] Sodium 141 133 - 145 mmol/L LAB CHEMISTRY METHOD 12/20/2024 8:37 PM [facility] Potassium 3.4(L) 3.5 - 5.5 mmol/L LAB CHEMISTRY METHOD 12/20/2024 8:37 PM [facility] Chloride 100 96 - 110 mmol/L LAB CHEMISTRY METHOD 12/20/2024 8:37 PM [facility] CO2 31 21 - 32 mmol/L LAB CHEMISTRY METHOD 12/20/2024 8:37 PM [facility] Anion Gap 10 3 - 11 LAB CHEMISTRY METHOD 12/20/2024 8:37 PM [facility] Glucose 128(H) 70 - 100 mg/dL LAB CHEMISTRY METHOD 12/20/2024 8:37 PM [facility] BUN 13 5 - 25 mg/dL LAB CHEMISTRY METHOD 12/20/2024 8:37 PM [facility] Creatinine 0.81 0.70 - 1.30 mg/dL LAB CHEMISTRY METHOD 12/20/2024 8:37 PM EDT [facility] eGFR 98 >=60 mL/min/1. 73m2 LAB CHEMISTRY METHOD 12/20/2024 8:37 PM EDT [facility] Comment:Calculation based on the Chronic Kidney Disease Epidemiology Collaboration (CKD-EPI) equation refit without adjustment for race. BUN/Creatinine Ratio 16.0 LAB CHEMISTRY METHOD 12/20/2024 8:37 PM EDT [facility] Calcium 8.8 8.5 - 10.5 mg/dL LAB CHEMISTRY METHOD 12/20/2024 8:37 PM EDT [facility] AST (SGOT) 28 10 - 42 unit/L LAB CHEMISTRY METHOD 12/20/2024 8:37 PM [facility] ALT (SGPT) 21 10 - 60 unit/L LAB CHEMISTRY METHOD 12/20/2024 8:37 PM [facility] Alkaline Phosphatase 146(H) 42 - 121 unit/L LAB CHEMISTRY METHOD 12/20/2024 8:37 PM EDT [facility] Total Protein 7.5 6.0 - 8.0 g/dL LAB CHEMISTRY METHOD 12/20/2024 8:37 PM [facility] Albumin 3.5 3.2 - 5.0 g/dL LAB CHEMISTRY METHOD 12/20/2024 8:37 PM [facility] Total Bilirubin 0.5 0.0 - 1.4 mg/dL LAB CHEMISTRY METHOD 12/20/2024 8:37 PM T [facility] Blood Venous blood specimen / Unknown Venipuncture / Unknown 12/20/2024 7:52 PM EDT 12/20/2024 8:06 PM EDT us Rai Gonzalez MD LAB BLOOD ORDERABLES Final Resul t [facility] [address] [place] [address], [place] [phone] from Last 3 Months Insurance [facility] Member Subscriber Plan / Payer (Ef fective 2023-Present) Name:GIO ZEE Relation to Subscriber:Self Name:SallyGio Payer ID:[id number] Group ID:[id number] Type:Not on file Address: [place] [address] [address] [place] [id number] Advance Directives Documents on File Type Date Recorded Patient Data Processing Control Clerk Expl anation Health Care Decision (hx) 05/18/2017 [...] 5:06 PM 03/18/2024 6:06 PM This is ord er is used when code status has not been discussed with the patient, or code status is otherwise unknown/unconfirmed To update the patient's code status, place a code status order. Do not modify or discontinue any currently active code status orders. Healthcare Agents on File Name Relationship Healthcare Agent [facility] Communication Peyton Ely Relative Health Care Agent Care Teams Inventory Checker Relationship Specialty Start Date End Date Cristhian Delgado DO [facility] [place], [place] PCP - General Internal Medicine 02/01/24
[2025-02-17 20:59] VITALS: BP 106/58; PULSE 86; RESP 20; O2SAT 96
--- NOTE | 2025-02-17 20:59 | PC.NURSE ---
Pt alert and oriented, able to ambulate independently with cane with steady gait. Breathing unlabored.
[2025-02-17 21:06] VITALS: BP 106/58; PULSE 86; RESP 20; TEMP -17.7; TEMP 0; O2SAT 96
== END 2025-02-17 21:23 | disposition home or self-care (01) ==
PROVIDERS: Emergency Provider Emergency Medicine Emergency Medical Services; PCP Internal Medicine
DX: S09.90XA Unspecified injury of head, initial encounter (principal); W19.XXXA Unspecified fall, initial encounter; Y93.9 Activity, unspecified; Y92.9 Unspecified place or not applicable; R51.9 Headache, unspecified; F10.10 Alcohol abuse, uncomplicated; Y90.8 Blood alcohol level of 240 mg/100 ml or more; M54.2 Cervicalgia; J44.9 Chronic obstructive pulmonary disease, unspecified; I45.10 Unspecified right bundle-branch block; F17.200 Nicotine dependence, unspecified, uncomplicated; Z71.6 Tobacco abuse counseling
CPT/HCPCS: 36415; 70450; 72125; 80053; 80307; 83735; 84484; 85025; 93005; 99285

== ENCOUNTER → 2025-02-17 16:00 | Outpatient (BNV) | payer OTHER, SELFPAY | PROVIDERS: Emergency Provider Emergency Medicine Emergency Medical Services; PCP Internal Medicine; Visit Provider Internal Medicine Cardiovascular Disease | DX: I45.2 Bifascicular block (principal) | CPT/HCPCS: 93010 ==

== ENCOUNTER → 2025-02-17 16:39 | Outpatient (BNV) | payer OTHER, SELFPAY | PROVIDERS: Emergency Provider Emergency Medicine Emergency Medical Services; PCP Internal Medicine; Visit Provider Student in an Organized Health Care Education/Training Program | DX: M54.2 Cervicalgia (principal); Z04.3 Encounter for examination and observation following other accident; S09.90XA Unspecified injury of head, initial encounter | CPT/HCPCS: 70450; 72125 ==

== ENCOUNTER 2025-02-20 10:17 | Inpatient (IN) | payer OTHER, SELFPAY ==
[2025-02-20] VITALS (14 sets, daily range): BP systolic 96–132; BP diastolic 56–84; PULSE 94–127; RESP 16–20; TEMP 37–37.9; O2SAT 86–99; BMI 19.6; BMI 19.5
--- NOTE | ~2025-02-20 | CT_ITS ---
EXAMINATION: CT HEAD WITHOUT CONTRAST CLINICAL INFORMATION: Fall, head trauma, on Eliquis COMPARISON: 02/17/2025 TECHNIQUE: Contiguous axial imaging was performed from the skull base to vertex without intravenous administration of contrast. This CT examination was performed using dose optimization techniques as appropriate, variously including the following: *Automated exposure control *Adjustment of mA and/or kV according to patient size (this includes techniques or standardized protocols for targeted exams where dose is matched to indication/reason for exam; i.e. extremities or head) *Use of iterative reconstruction technique FINDINGS: There is no acute ischemic change. Stable right frontal lobe encephalomalacia with adjacent 3 cm osteotomy defect. There is no intracranial hemorrhage. There is no mass-effect or midline shift. Basal cisterns and ventricles are within normal limits for age/cerebral volume. Orbits are symmetrical and unremarkable. Paranasal sinuses and mastoid air cells are pneumatized. There are no bony abnormalities. CT/CT head/brain wo IV con IMPRESSION: No acute intracranial abnormality. 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 Electronically signed by: Ryan Simpson MD 02/20/2025 01:30 PM [facility]
--- NOTE | ~2025-02-20 | CT_ITS ---
EXAMINATION: CT CERVICAL SPINE WITHOUT CONTRAST CLINICAL INFORMATION: Trauma, fall, +ETOH, anticoagulated COMPARISON: 01/24/2025 TECHNIQUE: Axial imaging was performed from the base of the skull through T2 without IV contrast. Coronal and sagittal reformatted images were generated from the original axial data set. ALARA: The examination used one or more of the following radiation dose reduction techniques: Automated exposure control, iterative reconstruction, and/or adjustment of mA and/or KV. FINDINGS: There is chondrocalcinosis in the transverse ligament dens. Again seen is moderate degenerative changes C5-6 with disc space narrowing, endplate irregularity and osteophytes. Also seen is chronic nonunion of C6 - T1 spinous process fractures. No fracture line is identified CT/CT cervical spine wo IV con IMPRESSION: No acute bony abnormality. Stable chronic changes. Electronically signed by: Ryan Simpson MD 02/20/2025 01:37 PM [facility]
--- NOTE | ~2025-02-20 | XR_ITS ---
EXAMINATION: XR CHEST 2 VIEWS HISTORY: cough COMPARISON: Comparison is made with the prior examination dated 01/29/2025. FINDINGS: PA and lateral views of the chest are submitted. The lungs are expanded and clear. There is no pleural effusion, pneumothorax, or pulmonary vascular congestion. The heart is normal in size. There is mild wedging of thoracic vertebral bodies, unchanged from a prior chest CT dated 01/24/2025. XR/XR chest 2V IMPRESSION: No acute cardiopulmonary abnormality. Electronically signed by: Shiraz Nova MD 02/20/2025 01:15 PM [facility]
--- NOTE | ~2025-02-20 | XR_ITS ---
CLINICAL HISTORY: cough, creps upper lobes ?PNA 1 view chest x-ray Comparison: 01/29/2025 Findings: Portions of the exam are obscured by overlying material. The lungs are clear. Heart size is normal. No acute fracture. IMPRESSION: 1. No acute findings. This document has been electronically signed by: Edgardo Pisano MD on 02/24/2025 12:33:23
[2025-02-20 10:59] LABS: MANUAL DIFF FLAG NO
[2025-02-20 11:00] LABS: Hematocrit 33.8 % (42.0-52.0); Hemoglobin 11.7 g/dl (14.0-18.0); Imm Gran Abs Auto 0.05 X10*3/uL (0.00-0.03); Imm Gran Pct Auto 0.6 % (0.0-0.4); Lymphocytes Absolute Auto 0.3 X10*3/uL (1.2-4.9); Mean Corpuscular HGB Conc 34.6 g/dl (31.0-36.0); Mean Corpuscular Hemoglobin 31.0 pg (27.0-33.0); Mean Corpuscular Volume 89.7 fL (80.0-98.0); NRBC Abs Auto 0.000 X10*3/uL (0.0-0.012); NRBC Pct Auto 0.0 /100WBC (0.0-0.2); Red Blood Count 3.77 X10*6/uL (4.60-5.80); White Blood Count 8.0 X10*3/uL (4.8-10.8)
[2025-02-20 11:04] LABS: Platelet Count 81 X10*3/uL (160-400)
--- NOTE | 2025-02-20 11:35 | PC.NURSE ---
Outpt care contacts site coordinator- please call for additional information [facility] [phone] [facility] also would like the patient to have a care team consult, they are wanting to section 35 the patient- N contact is Bharati- [phone]
[2025-02-20 11:48] LABS: Resp Syncy Virus RNA Qual PCR NEGATIVE (Negative); SARS COV2 PCR INHOUSE NEGATIVE (Negative)
[2025-02-20 11:53] LABS: Alanine Aminotransferase 23 U/L (0-40); Albumin Level 3.5 g/dL (3.5-5.0); Alkaline Phosphatase 161 U/L (39-117); Anion Gap 18 (12-20); Aspartate Amino Transferase 82 U/L (5-37); Blood Urea Nitrogen 13 mg/dL (9-16); Calcium 8.0 mg/dL (8.4-10.2); Carbon Dioxide 23 mmol/L (22-29); Chloride 98 mmol/L (96-108); Creatinine Clr Calc Pharmacy 94.8; Estimated Glomerular Filt Rate > 60; Lipase 16 U/L (8-78); Potassium 3.4 mmol/L (3.3-5.1); Sodium 136 mmol/L (135-145); Total Protein 6.6 g/dL (6.5-8.0)
--- OUTSIDE RECORDS SUMMARY | 2025-02-20 12:36 | XMS_ITS | Data Portability ---
Author Organization [facility], Telehealth Patient Home Address [address] [facility] [place] [place] [address] Assessment Encounter Date Assessment Date Assessment LastModified by Organization Details LastModified Time 01/19/2024 01/19/2024 [id number] [place] [id number] (STUDENT FINANCE SPECIALIST) MDM HIGH MUST MEET 2 OUT OF [...] COVERED Not available 01/19/2024 11:54:32 03/22/2024 03/22/2024 [id number] [place] [id number] (STUDENT FINANCE SPECIALIST) MDM MODERATE MUST MEET 2 OUT OF [...] COVERED Not available 03/22/2024 11:36:53 05/19/2024 05/19/2024 [id number] [place] [id number] (STUDENT FINANCE SPECIALIST) MDM HIGH MUST MEET 2 OUT OF [...] COVERED Not available 05/19/2024 15:01:00 06/07/2024 06/07/2024 [id number] [place] [id number] (STUDENT FINANCE SPECIALIST) MDM MODERATE MUST MEET 2 OUT OF [...] COVERED Not available 06/07/2024 12:03:37 10/10/2024 10/10/2024 [id number] [place] [id number] (STUDENT FINANCE SPECIALIST) MDM MODERATE MUST MEET 2 OUT OF [...] vitamin D, 25-hydroxy, total, serum 2024 025 [facility], [address] [place] [address], [address], 12:27:32 vitamin B12 + folate, serum or blood 2024 025 [facility], [address] [place] [address], [address], 12:30:46 CMP, serum or plasma 2024 025 [facility], [address] [place] [address], [address], 12:30:45 Referral orthopedic surgeon referral 2024 025 vamshi Simpson MD, [address] [facility] [address], [place], [address], 09:07:33 gastroenter ologist referral - routine colonoscopy 2024 025 aravind Parra MD, [address] [facility] [address], [place], [address], 09:35:00 Procedures None recorded. Surgeries None recorded. Imaging XR, hand, 3 or more view 2024 025 [facility] ([facility]), [address] [place], [address], 08:24:58 MRI, shoulder, w/o contrast 2024 025 [facility] ([facility]), [address] [place], [address], 5 08:26:15 XR, hand, 3 or more view 2023 024 [facility] ([facility]), [address] [place], [address], 4 08:29:38 Medication Orders triamcinolo ne acetonide 0.1 % topical cream [address] [facility] [place] #[id number], [address] [place], [address], 5 16:46:57 azithromyci n 250 mg tablet [address] [facility] [place] #[id number], [address] [place], [address], 5 12:12:19 azithromyci n 250 mg tablet 2024 025 [facility], [address] [place], [address], 5 14:59:57 triamcinolo ne acetonide 0.1 % topical cream 2024 025 [facility], [address] [place], [address], 5 15:02:20 triamcinolo ne acetonide 0.1 % topical cream [address] [facility] [place] #[id number], [address] [place], [address], 4 11:51:47 Multivitami n 50 Plus tablet [address] [facility] [place] #[id number], [address] [place], [address], 4 11:50:00 Patient TargetsNo targets recorded. Patient Instructions Encounter Date Encounter Id Patient Instructions Last Modified By Organization Details Last Modified Time 01/19/2024 [id number] chronic obstructive pulmonary disease (COPD): care instructions Not available 01/19/2024 11:49:57 learning about copd and how to prevent lung infections Not available 01/19/2024 11:49:57 pulse oximetry* Not available 01/19/2024 11:49:57 neuropathic pain : care instructions Not available 01/19/2024 11:49:57 03/22/2024 [id number] pulse oximetry* KAROLYN Not available 03/22/2024 11:49:54 05/19/2024 [id number] pulse oximetry* Not available 05/19/2024 14:59:35 dislocated shoulder: care instructions Not available 05/19/2024 14:59:35 shoulder dislocation: rehab exercises Not available 05/19/2024 14:59:35 neuropathic pain : care instructions Not available 05/19/2024 15:02:31 06/07/2024 [id number] pulse oximetry* KAROLYN Not available 06/07/2024 11:42:18 10/10/2024 [id number] pulse oximetry* Not available 10/10/2024 16:46:54 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[employer] 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 for Screening for malignant neoplasm of colon routine colonoscopy Referring Physician: Cristhian Delgado, Internal Medicine, Encounter Date: 05/19/2024 Orthopedic Surgeon Referral for Dislocation of shoulder joint Referring Physician: Cristhian Delgado, Internal Medicine, Encounter Date: 06/07/2024 Results Created Date Observation Date Name Description Value Unit Range Abnormal Flag Note LastModifiedBy Organization Detail LastModifiedTime 01/19/20 24 01/19/2024 pulse oxime try* Result 92 Not Available [facility] [address] [facility] [address], [place], [address], 01/14/2024 11:32:45 03/22/19 25 03/22/2024 pulse oxime try* Result 95 Not Available [facility] [address] [facility] [address], [place], [address], 03/14/2024 11:54:52 05/20/19 25 05/19/2024 pulse oxime try* Result 91% Not Available [facility] [address] [facility] [address], [place], [address], 05/17/2024 16:20:55 06/08/19 25 06/07/2024 pulse oxime try* Result 93 Not Available [facility] [address] [facility] [address], [place], [address], 06/04/2024 08:15:20 10/11/1910/10/2024 pulse oxime try* Result 97 Not Available [facility] [address] [facility] [address], [place], [address], 10/10/2024 07:45:39 06/06/19 25 06/01/2024 MRI, shoul georgina, w/o contr ast No observ ation record ed. [facility] Mri Department [address] [place], [address], 06/05/2024 15:20:13 10/27/1910/26/2024 XR, shoul georgina No observ ation record ed. [address] (Medical Records) [address] [place], [address], 10/27/2024 09:20:23 10/27/1910/26/2024 CT, angio gram, chest + abdom en + pelvi s, w/ contr ast No observ ation record ed. [address] (Medical Records) [address] [place], [address], 10/27/2024 09:20:53 10/28/19 25 10/26/2024 CT, angio gram, chest , w/ contr ast No observ ation record ed. [email or web address] [facility] (Medical Records) [address] [place], [address], 10/27/2024 10:02:41 12/19/19 25 12/18/2024 imagi ng/di agnos tic resul t No observ ation record ed. [email or web address] [facility] (Medical Records) [address] [place], [address], 12/19/2024 08:50:10 01/05/20 25 01/04/2025 XR, chest , 2 view No observ ation record ed. [address] (Medical Records) [address] [facility] [place] [address], 01/04/2025 16:40:25 01/25/20 25 01/24/2025 XR, humer us No observ ation record ed. [facility] (Medical Records) [address] [place], [address], 01/24/2025 16:09:25 01/25/20 25 01/24/2025 XR, shoul georgina No observ ation record ed. [facility] (Medical Records) [address] [place], [address], 01/24/2025 16:09:40 01/25/20 25 01/24/2025 XR, hand, 3 or more view No observ ation record ed. [address] (Medical Records) [address] [facility] [place], [address], 01/24/2025 15:51:21 01/25/20 25 01/24/2025 XR, hand, 3 or more view No observ ation record ed. [address] (Medical Records) [address] [facility] [place], [address], 01/24/2025 15:51:32 01/25/20 25 01/24/2025 CT, head + brain , w/o contr ast No observ ation record ed. [facility] (Medical Records) [address] [facility] [place], [address], 01/25/2025 09:00:43 01/25/20 25 01/24/2025 CT, cervi octavio spine , w/o contr ast No observ ation record ed. [facility] (Medical Records) [address] [facility] [place], [address], 01/25/2025 09:01:14 01/25/20 25 01/24/2025 CT, chest , w/ contr ast No observ ation record ed. [facility] (Medical Records) [address] [facility] [place], [address], 01/25/2025 09:01:41 01/30/20 25 01/29/2025 XR, chest , 2 view No observ ation record ed. [email or web address] [place] [address] (Medical Records) [address] [facility], [address], 01/29/2025 06:35:30 02/18/20 25 02/17/2025 imagi ng/di agnos tic resul t No observ ation record ed. [address] (Medical Records) [address] [place], [address], 02/19/2025 08:13:28 02/18/20 25 02/17/2025 imagi ng/di agnos tic resul t No observ ation record ed. [address] (Medical Records) [address] [place], [address], 02/19/2025 08:19:10 Result Notes None recorded. Problems Name Problem SNOMED Code Status Onset Date Resolution Date Notes Provider Name and Address Organization Details Recorded Time Chronic obstructi ve pulmonary disease 14829052 Active 2018 JUANITA Mckay [facility] 9 15:16:29 Neuropath y 057212632 Active 2018 [facility] 9 15:16:41 Gout 31889895 Active 2018 [facility] 9 15:16:48 History of gallstone s 189203123 Active 2018 [facility] 9 15:17:04 History of deep vein thrombosi s 884666408 Active 2018 s/p IVC filter KAMLESH Keen [address] [place] [address], [address], [facility] 9 14:35:19 Harmful pattern of use of alcohol 75848434 Active 2018 Kimberly Coelho NP, S [address] [place] [address], [address], [facility] 9 16:45:28 Tobacco dependenc e syndrome 17063020 Active 2018 Kimberly Coelho NP, S [address] [place] [address], [address], [facility] 9 16:13:47 Tinea corporis 10867091 Active 2023 Cristhian Delgado DO [address] [place] [address], [address], [facility] 4 12:10:21 Insomnia 513005701 Active 2023 Cristhian Delgado DO [address] [place] [address], [address], [facility] 4 12:17:44 Secondary periphera l neuropath y 011108 Active 2023 Cristhian Delgado DO [address] [place] [address], [address], [facility] 4 22:16:11 Acute exacerbat ion of chronic obstructi ve pulmonary disease 036896903 Active [address] HIMA HUERTA [address] [place] [address], [address], [facility] 4 15:05:32 Generaliz ed rash 104005109 Active 2023 HIMA HUERTA [address] [place] [address], [address], [facility] 4 10:59:16 Depressiv e disorder 43946387 Active 2023 HIMA HUERTA [address] [place] [address], [address], [facility] 4 10:26:22 Eczema 21981382 Active 2023 Cristhian Delgado, DO [address] [place] [address], [address], [facility] 4 11:50:30 Pain of bilateral hands 42959398498 751363 Active 2023 Cristhian Delgado DO [address] [place] [address], [address], [facility] 4 11:52:35 Pruritic rash 75319671 Active 2023 Cristhian Delgado DO [address] [place] [address], [address], [facility] 4 21:26:20 COVID-19 515175880 Active 2024 Cristhian Delgado DO [address] [place] [address], [address], [facility] 5 11:37:01 Nummular eczema 85112156 Active 2024 Cristhian Delgado DO [address] [place] [address], [address], [facility] 5 14:51:23 Dislocati on of shoulder joint 565602539 Active 2024 Cristhian Delgado DO [address] [place] [address], [address], [facility] 5 14:52:22 Dislocati on of shoulder joint 389908636 Active 2024 Cristhian Delgado DO [address] [place] [address], [address], [facility] 5 14:52:26 Bilateral pain of joint of hands 94138165660 391363 Active 2024 Cristhian DelgadoDO [address] [place], [address], [facility] Internal [facility] 5 14:53:41 Eczema of lower leg 033948131 Active 2024 Cristhian Delgado, [address] [place] [address], [address], [facility] 5 16:55:51 Problem Notes None recorded. Medical Equipment None Reported. Allergies Allergen ID Allergen Name Allergen Category Reaction Reaction Severity Criticality Documentation Date Start Date Code Code System Note Provider Name and Address Organization Details Recorded Time 2905 peanut allergeni c extract food,medi cation Not available Not available Not available 05/11/2018 95846 8 RxNorm [facility] 9 15:14:37 8332 Lyrica medicatio n rash Not available Not available 11/15/20232023 42806 1 RxNorm [facility] 4 10:28:00 8490 raspberry extract food,medi cation Not available Not available Not available 12/29/2023 26504 69 RxNorm QUINTIN MENDEZ, HIMA [address] [place], [address], [facility] Internal [facility] 4 10:47:33 9901 pregabali n medicatio n Not available Not available Not available 01/19/20252024 06105 2 RxNorm Not Available karolyn - External [...] completed Not Available Not Available Not Available [facility] 100,000 unit/gram topical powder 09/16 [...] Updated DateTime 5 171.45 cm 23.6 kg/m2 61683.6 3 g 71 /min 95 % 106/68 mm[Hg] Cristhian Delgado, DO [address] [place], [address], [facility] 5 11:20:11 Date Recorded Body height Body mass index (BMI) Body weight Heart rate Oxygen saturation Systolic And Diastolic Provider Name and Address Organization Details Last Updated DateTime 5 171.45 cm 24.4 kg/m2 52579.6 7 g 81 /min 91 % 130/80 mm[Hg] Daphne Ryan [facility] 5 14:36:10 Date Recorded Body height Heart rate Oxygen saturation Systolic And Diastolic Provider Name and Address Organization Details Last Updated DateTime 06/07/2024 171.45 cm 77 /min 93 % 129/60 mm[Hg] Trina Alcantar [facility] 06/07/2024 11:39:05 Date Recorded Body height Body mass index (BMI) Body weight Oxygen saturation Heart rate Systolic And Diastolic Provider Name and Address Organization Details Last Updated DateTime 5 171.45 cm 23.8 kg/m2 84269.2 2 g 97 % 78 /min 112/64 mm[Hg] SAM AWAD [facility] 5 16:15:29 Date Recorded Body height Body mass index (BMI) Body weight Heart rate Oxygen saturation Systolic And Diastolic Provider Name and Address Organization Details Last Updated DateTime 4 171.45 cm 23.6 kg/m2 19060.6 3 g 73 /min 92 % 110/80 mm[Hg] Trina Alcantar [facility] 4 11:13:34 Social History Question Answer Notes LastModified by Organizat ion Details LastModified Time Tobacco Smoking Status Current Every Day Smoker Sheila Collinsmicky rainey [facility] 05/11/2018 15:18:01 What Was The Date Of Your Most Recent Tobacco Screening? 06/07/2024 [email or web address] Information not available 06/07/2024 Sex: Unknown Functional [...] 0.5 mL 03/27/19 22 completed Not Available [facility] 08/15/2022 22:39:22 Tdap 08/04/19 22 completed Not Available [facility] 08/15/2022 22:39:22 pneumococcal polysaccharide PPV23 07/18/19 21 completed Not Available [facility] 08/15/2022 22:39:22 influenza, unspecified formulation 04/23/19 17 completed Not Available [facility] 08/15/2022 22:39:22 zoster recombinant 10/03/19 25 completed Cristhian Delgado DO [address] [place] [address], [address], [facility] 10/10/2024 16:45:43 Past Encounters Encounter ID Performer Location Encounter Start Date Encounter Closed Date Diagnosis/Indication Diagnosis SNOMED-CT Code Diagnosis ICD10 Code Diagnosis IMO Codes Diagnosis Note Cristhian Delgado DO [facility] [address] [facility],[place] [address] 07/11/2018 15:02:42 07/11/2018 16:21:04 Alcohol dependence 84008583 F10.20 written scripts vivitrol 380 mg IM Q 4 weeks ( pharmacy not located in system ) Chronic ob structive pulmonary disease 81152120 J44.9 Harmful pa ttern of use of alcohol 40222226 F10.10 long discussion to avoid isolation Use senior center, library, social center to seek psychiatri st-pt prefers to do on own look for SMART meetings stay in contact w/positive people in life get outside and walk History of deep vein thrombosis 101268591 Z86.718 on Eliquis Neuropathy 211845122 G62 .9 gabapentin written & faxed 300 mg BID [id number] Cristhian Delgado [facility] [address] [facility], [employer] [place] [address] 09/28/2018 13:25:38 09/28/2018 14:06:07 Alcohol dependence 64069164 F10.20 currently in rehab Secondary peripheral neuropathy 752435 G63 2/2 etoh History of deep vein thrombosis 288968021 Z86.718 Tobacco de pendence syndrome 03282511 F17.200 [id number] Cristhian Delgado [facility] [address] [facility], [employer] [facility] [place] [address] 10/26/2018 14:05:49 10/26/2018 16:00:43 History of deep vein thrombosis 716188093 Z86.718 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 has IVC filter Tobacco de pendence syndrome 59210830 F17.200 no plans to quit Neuropathy 628130294 G62 .9 gabapentin not helpful has low vitamin d will supplement then f.u Harmful pa ttern of use of alcohol 65142801 F10.10 currently sober x 9 days Acute conjunctivitis 537 79595 H10.31 current abx failure consider opth if second round not helpful Vitamin D deficiency 347 92363 E55.9 Onychomyco sis of toenails 672213343 B35.1 Screening procedure 2012 5006 Z13.9 Steatotic liver disease 151627392 K76.0 [id number] Cristhian Delgado [facility] [address] [facility],[place] [address] 01/03/2019 10:26:01 01/03/2019 11:03:12 Secondary peripheral neuropathy 996532 G63 2/2 etoh Physical deconditioning 6821056480 9102 R68.89 Depressive disorder 3548 9007 F32.9 [id number] Cristhian Delgado [facility] [address] [facility],[place] [address] 02/07/2019 13:17:51 02/07/2019 13:59:18 Acute folliculitis 829386683 L73.9 Secondary peripheral neuropathy 419183 G63 2/2 etoh no difference in neuropathy [...] who doesn't visit Vitamin D deficiency 347 24033 E55.9 never received the letter regarding this lab result will send in vitamin d now also take vitamin d3 2000 units after completing this will recheck level in 12 weeks Tobacco user 965503011 Z 72.0 [id number] Cristhian Delgado [facility] [address] [facility], [place] [address] 04/28/2019 15:03:46 04/28/2019 16:25:32 Chronic obstructive pulmonary disease 33052493 J44.9 acute exacerbati on of copd Secondary peripheral neuropathy 590268 G63 2/2 etoh no difference in neuropathy , will try to increase dose from 600 to 800 mg denies any drowsiness with the gabapentin still not drinking sx reportedly are worsening Depressive disorder 3540 9007 F32.9 feels the duloxetine has helped with his depression . 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 has IVC filter Neuropathy 154784591 G62 .9 as above Alcohol dependence 03335 003 F10.20 sober Atopic dermatitis 045857 01 L20.9 Acute exac erbation of chronic obstructive pulmonary disease 923917904 J44.1 zpack, pred as above for rash + [place] [id number] Cristhian Delgado [facility] [address] [facility],[place] [address] 10/25/2019 15:02:33 10/25/2019 15:22:49 Harmful pattern of use of alcohol 10209224 F10.10 still drinking about 1 pint of hard liquor a day no plans on stopping or seeking help with this addiction advised to work on cutting back and drink water instead patient does not seem interested on doing this despite risks to his health will have patient call if he has another convulsio n Chronic ob structive pulmonary disease 79360955 J44.9 breathing is the same per patient not any worse, cough is the same as well Tobacco de pendence syndrome 47263865 F17.200 still smoking not ready to quit, no plans on quitting SARS-CoV-2 006587133 U07 .1 patient currently has a positive diagnosis of COVID told him to monitor symptoms and if he gets very sick again to go back to the hospital [id number] Cristhian Delgado [facility] [address] [facility],[place] [address] [address] [email or web address] [address] 01/03/2020 15:04:00 01/03/2020 16:04:29 Harmful pattern of use of alcohol 35644947 F10.10 still drinking about 2 pint of hard liquor a day did discuss with patient about setting up with a rehab center and working with his advisor patient was open to this idea and gave permission for me to speak with his advisor Alcohol withdrawal 70040 0000 F10.939 patient states every time he stops drinking he gets violently ill so him refuses to stop drinking at this point [id number] Cristhian Delgado [facility] [address] [facility] [place] [facility] [email or web address] [place] [address] 03/06/2020 09:10:45 03/06/2020 15:51:21 Harmful pattern of use of alcohol 26977515 F10.10 still drinking about 2 pint of hard liquor a day did discuss with patient about setting up with a rehab center and working with his advisor patient unwilling to stop drinking because of the withdrawal afterwards did discuss in detail with pt that the drinking is contributi ng to his neurologic al issues Chronic ob structive pulmonary disease 52824533 J44.9 breathing is the same per patient not any worse, cough is the same as well does need refill of his inhalers Fall W19.XXXS patient reports he fell due to balance issues, weakness in nabila legs most likely related to his drinking will set him up with Dr. Aldana again for eval Injury of head 37140930 S09.90XS no LOC and CT at hospital showed no acute changes MRI done in april, will not need another MRI History of deep vein thrombosis 091096022 Z86.718 was on eliquis but stopped to do hx of brain bleed no ride to the hospital so he is unwilling to do a fu US to assess chronic DVT due to brain bleed because of blood thinner, he should not be on eliquis at this time but should have US to assess [id number] Cristhian Delgado [facility] [address] [place] [address] 04/19/2020 08:38:20 04/22/2020 15:44:19 [id number] Cristhian Delgado [facility] [address] [place] [address] 06/12/2020 14:07:08 06/12/2020 15:18:50 Harmful pattern of use of alcohol 27552082 F10.10 still drinking about 2 pint of hard liquor a day did discuss with patient about setting up with a rehab center and working with his advisor patient unwilling to stop drinking because of the withdrawal afterwards did discuss in detail with pt that the drinking is contributi ng to his neurologic al issues Chronic ob structive pulmonary disease 49220215 J44.9 breathing is the same per patient not any worse, cough is the same as well Neuropathy 894374858 G62 .9 will try on the 800 mg qd as patient said this was effective will slowly tirtate up the medication dosage [id number] Cristhian Delgado DO [facility] [address] [facility],[place] [address] 04/11/2021 14:50:50 04/11/2021 16:21:09 Chronic obstructive pulmonary disease 32668832 J41.0 breathing is the same per patient not any worse, cough is the same as well Alcohol withdrawal 06091 0000 F10.931 has not had a drink in 1 mo but does plan to drink again though per patient in moderation recommend ed to not drink at all Secondary peripheral neuropathy 468743 G63 restarted gabapentin Harmful pa ttern of use of alcohol 04998052 F10.121 monitoring progress with drinking Pain of le ft shoulder joint [id number] M25.512 improving with at home PT [id number] Cristhian Delgado [facility] [address] [facility],[place] [address] 09/17/2023 10:23:16 09/17/2023 11:04:03 Depression screening 913515131 Z13.31 SCREENING NEGATIVE Harmful pa ttern of use of alcohol 06267793 F10.121 on naloxone campral buspar zoloft Gout 18428822 M10.9 quiet now Neuropathy 922277699 G62 .9 had been on gabapentin Chronic ob structive pulmonary disease 84927824 J41.0 he is stable on the inhalers [id number] Cristhian Delgado DO [facility] Internal [facility] [address] [facility],[place] [address] 10/18/2023 11:40:03 10/18/2023 12:58:27 Chronic obstructive pulmonary disease 51756448 J41.0 he is stable on the inhalers Harmful pa ttern of use of alcohol 14686780 F10.121 on naloxone campral buspar zoloft Tinea corporis 11554156 B35.4 between legs History of deep vein thrombosis 616370632 Z86.718 recurrent Insomnia 145488495 G47.0 0 [id number] Cristhian Delgado [facility] [address] [facility] [address] 11/30/2023 10:27:17 11/30/2023 15:30:22 Acute exacerbation of chronic obstructive pulmonary disease 148845709 J44.1 start on pred and z radha Chronic ob structive pulmonary disease 66998726 J41.0 needs refiil [id number] Cristhian Delgado [facility] [address] [facility], [place] [address] 12/29/2023 10:02:26 12/29/2023 15:40:20 Pre-surgery evaluation 572020800 Z01.818 The patient was seen in the office today for pre-op evaluation . All medical conditions on patient's problem list were addressed and are currently stable, no interventi on needed at this time. Based on history and physical performed, the patient is cleared for surgery. Chronic ob structive pulmonary disease 19160233 J41.0 mild exacerbati oncan start prednisone taper after surgery [id number] [facility] [address] [facility], [place] [address] 01/19/2024 10:45:59 01/19/2024 11:55:43 Acute exacerbation of chronic obstructive pulmonary disease 445167086 J44.1 seems stable now now acute changess Chronic ob structive pulmonary disease 11272688 J41.0 he is stable on the inhalers Neuropathy 949184976 G62 .9 had been on gabapentin Eczema 40383839 L30.9 Pain of bi lateral hands 7389289709 1244060 M79.642 M79.641 [id number] Cristhian Delgado [facility] [address] [facility], [place] [address] 01/17/2024 09:44:31 01/17/2024 11:46:28 Generalized rash 556517420 R21 start on combinatio n treat of pred and anti-funga lhas a f/u on 01/18 with [facility] in officereco mmended him evaluate at that timeskin culture was negative, no staph infection [id number] Cristhian Delgado [facility] [address] [facility],[place] [address] 03/22/2024 11:00:25 03/22/2024 11:45:12 Chronic obstructive pulmonary disease 94431506 J41.0 he is stable on the inhalers COVID-19 841639558 U07.1 on medrol and azith getting better Acute exac erbation of chronic obstructive pulmonary disease 104834575 J44.1 seems stable now now acute changesdoi ng bettergive n spacer [id number] [facility] [address] [facility],[place] [address] 05/19/2024 14:12:21 05/19/2024 15:20:28 Chronic obstructive pulmonary disease 72221366 J41.0 he is stable on the inhalers Nummular eczema 00885822 L30.0 Dislocatio n of shoulder joint 506256081 S43.006D Bilateral pain of joint of hands 7749367457 9411930 M25.541 M25.542 Screening for malignant neoplasm of colon 153439377 Z12.11 Chronic bronchitis 24132 004 J42 Neuropathy 232302796 G62 .9 had been on gabapentin [id number] [facility] [address] [facility],[place] [address] 06/07/2024 11:29:13 06/07/2024 12:15:01 Chronic obstructive pulmonary disease 49886028 J41.0 he is stable on the inhalers Dislocatio n of shoulder joint 622472276 S43.006D Nummular eczema 30795500 L30.0 Depression screening 171 791808 Z13.31 SCREENING NEGATIVE Bilateral pain of joint of hands 1568308162 8381349 M25.541 M25.542 Acute exac erbation of chronic obstructive pulmonary disease 092572239 J44.1 seems stable now now acute changesdoi ng bettergive n spacer [id number] [facility] [address] [facility],[place] [address] 10/10/2024 15:56:56 10/11/2024 10:30:30 Depression screening 718935900 Z13.31 SCREENING NEGATIVE Harmful pa ttern of use of alcohol 65280334 F10.121 on naloxone campral buspar zoloft Chronic ob structive pulmonary disease 47694468 J41.0 he is stable on the inhalers Eczema of lower leg 7623 31944 L30.9 6621692594 will use cream Secondary peripheral neuropathy 654391 G62.89 will cont gabapentin but consider change to duloxetine Health Concerns Section Related Observation LastModified by Organization Detai ls LastModified Time None Recorded Concern Status LastModified by Organization Details LastModified Time None Recorded Advance Directives Directive None Recorded Payers Insurance Date Sequence Insurance Name Policy Number Policy Ruiz Covered Member ID Ruiz Member ID Guarantor Name 05/19/2024 1 [facility] PRIOR TO 2022 - DUAL ELIGIBLE (MEDICARE REPLACEMENT/ADV ANTAGE - HMO) Edgardo Zavala [id number] Edgardo Zavala 05/19/2024 1 [place] [employer] Edgardo Zavala [id number] Edgardo Zavala 01/16/2025 1 [facility] DOS ON OR AFTER 2022 - MEDICARE ADVANTAGE [place]MEDICARE REPLACEMENT/ADV ANTAGE - PPO) Edgardo Zavala [id number] Edgardo Zavala 05/19/2024 1 [place] PRIOR TO 2022 - [facility] (MEDICAID) Edgardo Zavala [id number] Edgardo Zavala Notes Date Note Type Note Provider Name a nd Address Organization Details Recorded Time 4 text/html ROS as noted in the HPI here for rechkrelates that had a rsh for mult weeks creams not helpfulstill smokeshaving a prob with the rash not going away Cristhian Delgado DO [address] [place], [address], [facility] 01/19/2024 11:54:47 5 text/html ROS as noted in the HPI here for rechk of his lungs since having covid was seen twice in ER and actually signed out AMA on second visit was told to stay due to lower O2 sat but went hometoday O2 sat 95% Cristhian Delgado DO [address] [place], [address], [facility] 03/22/2024 11:38:17 5 text/html ROS as noted in the HPI hwere for rechk right shoulder is pretty bad as of late since the dislocation episode back in januaryrelates that he has also had a problem with his short term memoryhas noticed for several monthsals o the neuropathy has been worse Cristhian Hernandez DimasaidaDO [address] [place], [address], [facility] 05/19/2024 15:07:19 5 text/html [...] get riding on his motorcycle again Cristhian Mary DO Danny [address] [place], [address], [facility] 06/07/2024 12:12:26 5 text/html [...] his motorcycle again Cristhian Delgado, DO [address] [facility], [place], [address], [facility] 10/10/2024 16:56:27
--- OUTSIDE RECORDS SUMMARY | 2025-02-20 12:36 | XMS_ITS | Clinical Summary ---
Author Organization [facility] Address [address] [place] [address] Phone Care Team Providers Care Sausage Canner Name Role Phone Cristhian Delgado DO Primary Care Provider [phone] Allergies Active Allergy Reactions Criticality Noted Date [...] [facility] [address] [place] [address] Rai Gonzalez MD Goebel, Mathew, MD Jones, Christopher, MD Rasul, Yar M, MD Mohani, Priya, MD Hypoxia (Primary Dx); ETOH abuse; Chest pain, unspecified type; Viral pneumonia; Acute hypoxic respiratory failure ([facility] V24, [facility] V28) Discharge Disposition: Left Against Medical Advice from Last 3 Months Surgical History Surgery Date Site/Laterality Comments IVC FILTER Medical History Medical History Date Comments COPD (chronic obstructive pulmonary disease) ( S/HCC V24, [facility] V28) Neuropathy Social History Tobacco Use [...] MOLECULAR STUDY Routine 12/21/2024 1:59 AM EDT [id number], RSV, FLU A AND B QUALITATIVE RT-PCR, [...] Positive( A) Negative 12/21/2024 12:28 PM EDT [facility] Stool Rectum structure / Unknown Non-blood Collection / Unknown 12/21/2024 11:46 AM EDT 12/21/2024 11:52 AM EDT Karolyn RABAGO LAB BODY FLUIDS AND STOOLS OR DERABLES Final Result [facility] [address] [place] [address], [place] [phone] * (ABNORMAL) Drug abuse screen 8a panel, urine (12/21/2024 11:46 AM EDT) [facility] Amphetamine Screen, Ur Negative Negative LAB CHEMISTRY METHOD 12:28 PM EDT [facility] Comment:Certain OTC medicati ons containing ephedrine, phenylephrine, pseudoephedrine and phenylpropanolamine can cause false positive results. Barbiturate Screen, Ur Positive(A ) Negative LAB CHEMISTRY METHOD 12:28 PM EDT [facility] Benzodiazepine Screen, Ur Negative Negative LAB CHEMISTRY METHOD 12:28 PM EDT [facility] Cocaine Screen, Ur Negative Negative LAB CHEMISTRY METHOD 12:28 PM EDT [facility] Opiate Screen, Ur Negative Negative LAB CHEMISTRY METHOD 12:28 PM EDT [facility] Cannabinoid (THC) Screen, Ur Negative Negative LAB CHEMISTRY METHOD 12:28 PM EDT [facility] Comment:Specimens from patie nts taking pantoprazole sodium (Protonix) have been shown to produce false positive results. Oxycodone Screen, Ur Negative Negative LAB CHEMISTRY METHOD 12:28 PM EDT [facility] Fentanyl, Ur Negative Negative LAB CHEMISTRY METHOD 12:28 PM EDT [facility] Urine Urine specimen obtained by clean catch procedure / Unknown Non-blood Collection / Unknown 12/21/2024 11:46 AM EDT 12/21/2024 11:52 AM EDT Narrative [facility] - 12/21/2024 12:28 PM EDT [...] MD LAB URINE ORDERABLES Final Resul t [facility] [address] [place] [address], * ECG 12 lead (12/21/2024 6:33 AM EDT) Only the most recent of2 resultswithin the time period is included. Ventricular Rate ECG 77 BPM GEMUSE Atrial Rate 77 BPM GEMUSE P-R Interval 116 ms GEMUSE QRS Duration 130 ms GEMUSE Q-T Interval 416 ms GEMUSE QTc 470 ms GEMUSE P Wave [place] 35 degrees GEMUSE R [place] -68 degrees GEMUSE T [place] 31 degrees GEMUSE ECG Interpretation Normal sinus [...] K/mcL LAB HEMETOLOGY METHOD 12/21/2024 6:31 AM [facility] RBC 4.20(L) 4.50 - 5.50 M/mcL LAB HEMETOLOGY METHOD 12/21/2024 6:31 AM [facility] Hemoglobin 12.2(L) 13.5 - 17.5 g/dL LAB HEMETOLOGY METHOD 12/21/2024 6:31 AM [facility] Hematocrit 37.6(L) 42.0 - 54.0 % LAB HEMETOLOGY METHOD 12/21/2024 6:31 AM [facility] MCV 90.2 79.0 - 98.0 FL LAB HEMETOLOGY METHOD 12/21/2024 6:31 AM [facility] MCH 29.3 27.0 - 32.0 pcg LAB HEMETOLOGY METHOD 12/21/2024 6:31 AM [facility] MCHC 32.4 32.0 - 37.0 g/dL LAB HEMETOLOGY METHOD 12/21/2024 6:31 AM [facility] RDW 17.1(H) 11.0 - 15.0 % LAB HEMETOLOGY METHOD 12/21/2024 6:31 AM [facility] Platelets 142 130 - 400 K/mcL LAB HEMETOLOGY METHOD 12/21/2024 6:31 AM [facility] MPV 10.5 7.0 - 11.0 FL LAB HEMETOLOGY METHOD 12/21/2024 6:31 AM [facility] NRBC 0.0 <1.0 % LAB HEMETOLOGY METHOD 12/21/2024 6:31 AM [facility] NRBC Absolute 0.00 <0.10 K/mcL LAB HEMETOLOGY METHOD 12/21/2024 6:31 AM [facility] Neutrophils Relative 65.9 % LAB HEMETOLOGY METHOD 12/21/2024 6:31 AM [facility] Lymphocytes Relative 20.2 % LAB HEMETOLOGY METHOD 12/21/2024 6:31 AM [facility] Monocytes Relative 10.9 % LAB HEMETOLOGY METHOD 12/21/2024 6:31 AM [facility] Eosinophils Relative 2.1 % LAB HEMETOLOGY METHOD 12/21/2024 6:31 AM [facility] Basophils Relative 0.5 % LAB HEMETOLOGY METHOD 12/21/2024 6:31 AM [facility] Immature Granulocytes Relative 0.4 % LAB HEMETOLOGY METHOD 12/21/2024 6:31 AM [facility] Neutrophils Absolute 3.76 1.50 - 7.00 K/mcL LAB HEMETOLOGY METHOD 12/21/2024 6:31 AM [facility] Lymphocytes Absolute 1.15 1.00 - 5.00 K/mcL LAB HEMETOLOGY METHOD 12/21/2024 6:31 AM [facility] Monocytes Absolute 0.62 0.20 - 1.00 K/[facility] LAB HEMETOLOGY METHOD 12/21/2024 6:31 AM EDT [facility] Eosinophils Absolute 0.12 0.00 - 0.50 K/[facility] LAB HEMETOLOGY METHOD 12/21/2024 6:[facility] Basophils Absolute 0.03 0.00 - 0.20 K/[facility] LAB HEMETOLOGY METHOD 12/21/2024 6:31 AM EDT [facility] Immature Granulocytes Absolute 0.02 0.00 - 0.03 K/[facility] LAB HEMETOLOGY METHOD 12/21/2024 6:31 AM [facility] Blood Venous blood specimen / Unknown Venipuncture / Unknown 12/21/2024 5:09 AM EDT 12/21/2024 5:59 AM EDT us Boom Nagel MD LAB BLOOD ORDERABLES Final Result [facility] [address] [place] [address], * Basic metabolic panel (12/21/2024 5:09 AM EDT) Sodium 135 133 - 145 mmol/L LAB CHEMISTRY METHOD 12/21/2024 7:41 AM [facility] Potassium 4.0 3.5 - 5.5 mmol/L LAB CHEMISTRY METHOD 12/21/2024 7:41 AM [facility] Chloride 98 96 - 110 mmol/L LAB CHEMISTRY METHOD 12/21/2024 7:41 AM [facility] CO2 29 21 - 32 mmol/L LAB CHEMISTRY METHOD 12/21/2024 7:41 AM [facility] Anion Gap 8 3 - 11 LAB CHEMISTRY METHOD 12/21/2024 7:41 AM [facility] Glucose 94 70 - 100 mg/dL LAB CHEMISTRY METHOD 12/21/2024 7:41 AM EDT [facility] BUN 15 5 - 25 mg/dL LAB CHEMISTRY METHOD 12/21/2024 7:41 AM EDT [facility] Creatinine 0.72 0.70 - 1.30 mg/dL LAB CHEMISTRY METHOD 12/21/2024 7:41 AM T [facility] eGFR 102 >=60 mL/min/1. 73m2 LAB CHEMISTRY METHOD 12/21/2024 7:41 AM EDT [facility] Comment:Calculation based on the Chronic Kidney Disease Epidemiology Collaboration (CKD-EPI) equation refit without adjustment for race. BUN/Creatinine Ratio 20.8 LAB CHEMISTRY METHOD 12/21/2024 7:41 AM [facility] Calcium 8.6 8.5 - 10.5 mg/dL LAB CHEMISTRY METHOD 12/21/2024 7:41 AM T [facility] Blood Venous blood specimen / Unknown Venipuncture / Unknown 12/21/2024 5:09 AM EDT 12/21/2024 5:59 AM EDT us Boom Nagel MD LAB BLOOD ORDERABLES Final Result [facility] [address] [place] [address], * Respiratory virus panel molecular study (12/21/2024 1:59 AM EDT) Pathologist [facility] Adenovirus Detection by PCR Not Detected Not Detected LAB MICROBIOLOGY METHOD 12/21/2024 2:56 AM EDT [facility] Influenza A PCR Not Detected Not Detected LAB MICROBIOLOGY METHOD 12/21/2024 2:56 AM T [facility] Influenza B PCR Not Detected Not Detected LAB MICROBIOLOGY METHOD 12/21/2024 2:56 AM EDT [facility] Coronavirus 229E Not Detected Not Detected LAB MICROBIOLOGY METHOD 12/21/2024 2:56 AM EDT [facility] Coronavirus HKU1 Not Detected Not Detected LAB MICROBIOLOGY METHOD 12/21/2024 2:56 AM EDT [facility] Coronavirus OC43 Not Detected Not Detected LAB MICROBIOLOGY METHOD 12/21/2024 2:56 AM EDT [facility] Coronavirus NL63 Not Detected Not Detected LAB MICROBIOLOGY METHOD 12/21/2024 2:56 AM EDT [facility] Parainfluenza Virus 1 Not Detected Not Detected LAB MICROBIOLOGY METHOD 12/21/2024 2:56 AM EDT [facility] Parainfluenza Virus 2 Not Detected Not Detected LAB MICROBIOLOGY METHOD 12/21/2024 2:56 AM EDT [facility] Parainfluenza Virus 3 Not Detected Not Detected LAB MICROBIOLOGY METHOD 12/21/2024 2:56 AM EDT [facility] Parainfluenza Virus 4 Not Detected Not Detected LAB MICROBIOLOGY METHOD 12/21/2024 2:56 AM EDT [facility] RSV PCR Not Detected Not Detected LAB MICROBIOLOGY METHOD 12/21/2024 2:56 AM EDT [facility] Human Metapneumovirus A and B Not Detected Not Detected LAB MICROBIOLOGY METHOD 12/21/2024 2:56 AM EDT [facility] Rhinovirus/Entero virus Not Detected Not Detected LAB MICROBIOLOGY METHOD 12/21/2024 2:56 AM EDT [facility] Bordetella pertussis Not Detected Not Detected LAB MICROBIOLOGY METHOD 12/21/2024 2:56 AM EDT [facility] Bordetella parapertussis Not Detected Not Detected LAB MICROBIOLOGY METHOD 12/21/2024 2:56 AM EDT [facility] Mycoplasma pneumo by PCR Not Detected Not Detected LAB MICROBIOLOGY METHOD 12/21/2024 2:56 AM EDT [facility] Chlamydia pneumoniae Not Detected Not Detected LAB MICROBIOLOGY METHOD 12/21/2024 2:56 AM EDT [facility] SARS COV-2 Not Detected Not Detected LAB MICROBIOLOGY METHOD 12/21/2024 2:56 AM EDT [facility] Swab Structure of right anterior naris / Unknown Non-blood Collection / Unknown 12/21/2024 1:59 AM EDT 12/21/2024 2:01 AM EDT Narrative [facility] - 12/21/2024 2:56 AM EDT Testing was performed using the [employer] Respiratory Pathogen PCR Assay. All results must [...] MICROBIOLOGY - GENERAL OR DERABLES Final Result [facility] [address] [place] [address], * [id number], RSV, Influenza A and B qualitative RT-PCR (12/20/2024 10:53 PM EDT) Influenza A PCR Not Detected Not Detected LAB MICROBIOLOGY METHOD 12/21/2024 12:20 AM EDT [facility] Influenza B PCR Not Detected Not Detected LAB MICROBIOLOGY METHOD 12/21/2024 12:20 AM EDT [facility] RSV PCR Not Detected Not Detected LAB MICROBIOLOGY METHOD 12/21/2024 12:20 AM EDT [facility] SARS COV-2 Not Detected Not Detected LAB MICROBIOLOGY METHOD 12/21/2024 12:20 AM EDT [facility] Swab Both anterior nares / Unknown Non-blood Collection / Unknown 12/20/2024 10:53 PM EDT 12/20/2024 11:34 PM EDT Mario Quach MD LAB MICROBIOLOGY - GENERAL ORDAnh ZARCO Final Result Performing Organization Address City/[facility]/ZIP Co de Phone Number [facility] [address] [place] [address], [place] [phone] * B-Type Natriuretic Peptide (BNP) (12/20/2024 9:27 PM EDT) BNP 20 <=100 pcg/mL LAB CHEMISTRY METHOD 12/20/2024 10:12 PM EDT [facility] Blood Venous blood specimen / Unknown Venipuncture / Unknown 12/20/2024 9:27 PM EDT 12/20/2024 9:38 PM EDT Rai Gonzalez MD LAB BLOOD ORDERABLES Final Resul t Performing Organization Address [facility]/ZIP Co de Phone Number [facility] [address] [place] [address], [place] [phone] * CT Angio Chest wo and/or w [...] angiography chest with contrast. 3D Postprocessing. Comparison: CT/[place]/SR - CHEST ANGIOGRAPHY CT - 03/21/2023 08:08 [...] angiography chest with contrast. 3D Postprocessing. Comparison: CT/[place]/SR - CHEST ANGIOGRAPHY CT - 03/21/2023 08:08 [...] LAB CHEMISTRY METHOD 12/20/2024 9:33 PM EDT [facility] Blood Venous blood specimen / Unknown Venipuncture / Unknown 12/20/2024 8:56 PM EDT 12/20/2024 9:03 PM EDT Narrative [facility] - 12/20/2024 9:33 PM EDT High levels of biotin in samples may falsely decrease hsTroponin values. Use caution when interpreting hsTroponin results in patients taking biotin who exhibit renal impairment (eGFR <60) or in patients taking more than 20 mg/day of biotin. us Rai Gonzalez MD LAB BLOOD ORDERABLES Final Resul t [facility] [address] [place] [address], * XR Chest 2 Views (12/20/2024 8:46 PM EDT) Anatomical Region Laterality Modality Body Radiographic Mirella ging 12/20/2024 10:4 8 PM EDT Impressions 12/20/2024 10:48 PM EDT Patchy bilateral infiltrates. This document has been electronically signed by: Temo Llanso MD on 12/20/2024 22:48:02 Narrative 12/20/2024 10:48 PM EDT INDICATION: chest pain 2 view chest x-ray Comparison: DX/[place]/SR - XR CHEST 2 VW - 03/17/24 14:46 EST Findings: No consolidation or effusion. Normal size heart. No acute fracture. Patchy bilateral infiltrates. Procedure Note Temo Llanos MD - 12/20/2024 INDICATION: chest pain 2 view chest x-ray Comparison: DX/[place]/SR - XR CHEST 2 VW - 03/17/24 [...] LAB COAGULATION METHOD 12/20/2024 8:24 PM EDT [facility] Blood Venous blood specimen / Unknown Venipuncture / Unknown 12/20/2024 7:52 PM EDT 12/20/2024 8:06 PM EDT us aRi Gonzalez MD LAB BLOOD ORDERABLES Final Resul t Performing Organization Address City/[facility] de Phone Number [facility] [address] [place] [address], [place] [phone] * Protime-INR (12/20/2024 7:52 PM EDT) [facility] Protime 13.1 10.6 - 13.9 sec LAB COAGULATION METHOD 12/20/2024 8:24 PM EDT [facility] INR 1.1 LAB COAGULATION METHOD 12/20/2024 8:24 PM EDT [facility] Blood Venous blood specimen / Unknown Venipuncture / Unknown 12/20/2024 7:52 PM EDT 12/20/2024 8:06 PM EDT us Rai Gonzalez MD LAB BLOOD ORDERABLES Final Resul t Performing Organization Address [facility]/ZIP Co de Phone Number [facility] [address] [place] [address], [place] [phone] * (ABNORMAL) Ethanol (12/20/2024 7:52 PM EDT) Ethanol Level 211(H) 0 - 10 mg/dL LAB CHEMISTRY METHOD 12/20/2024 8:37 PM [facility] Blood Venous blood specimen / Unknown Venipuncture / Unknown 12/20/2024 7:52 PM EDT 12/20/2024 8:06 PM EDT us Rai Gonzalez MD LAB BLOOD ORDERABLES Final Resul t [facility] [address] [place] [address], * (ABNORMAL) Comprehensive Metabolic Panel (CMP) (12/20/2024 7:52 PM EDT) Pathologist [facility] Sodium 141 133 - 145 mmol/L LAB CHEMISTRY METHOD 12/20/2024 8:37 PM [facility] Potassium 3.4(L) 3.5 - 5.5 mmol/L LAB CHEMISTRY METHOD 12/20/2024 8:37 PM [facility] Chloride 100 96 - 110 mmol/L LAB CHEMISTRY METHOD 12/20/2024 8:37 PM [facility] CO2 31 21 - 32 mmol/L LAB CHEMISTRY METHOD 12/20/2024 8:37 PM [facility] Anion Gap 10 3 - 11 LAB CHEMISTRY METHOD 12/20/2024 8:37 PM [facility] Glucose 128(H) 70 - 100 mg/dL LAB CHEMISTRY METHOD 12/20/2024 8:37 PM [facility] BUN 13 5 - 25 mg/dL LAB CHEMISTRY METHOD 12/20/2024 8:37 PM [facility] Creatinine 0.81 0.70 - 1.30 mg/dL LAB CHEMISTRY METHOD 12/20/2024 8:37 PM EDT [facility] eGFR 98 >=60 mL/min/1. 73m2 LAB CHEMISTRY METHOD 12/20/2024 8:37 PM EDT [facility] Comment:Calculation based on the Chronic Kidney Disease Epidemiology Collaboration (CKD-EPI) equation refit without adjustment for race. BUN/Creatinine Ratio 16.0 LAB CHEMISTRY METHOD 12/20/2024 8:37 PM EDT [facility] Calcium 8.8 8.5 - 10.5 mg/dL LAB CHEMISTRY METHOD 12/20/2024 8:37 PM EDT [facility] AST (SGOT) 28 10 - 42 unit/L LAB CHEMISTRY METHOD 12/20/2024 8:37 PM [facility] ALT (SGPT) 21 10 - 60 unit/L LAB CHEMISTRY METHOD 12/20/2024 8:37 PM [facility] Alkaline Phosphatase 146(H) 42 - 121 unit/L LAB CHEMISTRY METHOD 12/20/2024 8:37 PM EDT [facility] Total Protein 7.5 6.0 - 8.0 g/dL LAB CHEMISTRY METHOD 12/20/2024 8:37 PM [facility] Albumin 3.5 3.2 - 5.0 g/dL LAB CHEMISTRY METHOD 12/20/2024 8:37 PM [facility] Total Bilirubin 0.5 0.0 - 1.4 mg/dL LAB CHEMISTRY METHOD 12/20/2024 8:37 PM T [facility] Blood Venous blood specimen / Unknown Venipuncture / Unknown 12/20/2024 7:52 PM EDT 12/20/2024 8:06 PM EDT us Rai Gonzalez MD LAB BLOOD ORDERABLES Final Resul t [facility] [address] [place] [address], [place] [phone] from Last 3 Months Insurance [facility] MEDIC[facility] Member Subscriber Plan / Payer (Ef fective 2023-Present) Name:GIO ZEE Relation to Subscriber:Self Name:SallyGio Payer ID:[id number] Group ID:[id number] Type:Not on file Address: [place] [address] [address] [id number] Advance Directives Documents on File Type Date Recorded Patient Statistical Consultant Expl anation Health Care Decision (hx) [...] Ely Relative Health Care Agent Care Teams Sausage Canner Relationship Specialty Start Date End Date Cristhian Delgado DO [address] [facility] [place], [place] PCP - General Internal Medicine 02/01/24
--- OUTSIDE RECORDS SUMMARY | 2025-02-20 12:36 | XMS_ITS | Data Portability ---
Author Organization [facility], Main Office Address [address] [facility], [address] [place] [address] Care Team Providers Care Highway Engineer Name Role Phone LAM BARJAAS - 2ND FLOOR OTHER DANIELA PEREZ Primary [...] deep vein thrombosis of lower extremitie s [id number] Active 2017 IVC FILTER IN 2017 and bilateral thrombolys is SHELBI STREETER [address] [facility], [address], [place], [address] [place] [address] 8 12:36:34 Alcohol withdrawal delirium 1801619 Active 2017 Viridiana rainey [facility] 8 10:43:30 Chronic obstructiv e pulmonary disease 14180366 Active 2017 Viridiana rainey [facility] 8 10:43:38 Aspiration pneumonia 664688534 Active 2017 Viridiana rainey [facility] 8 10:43:47 Urinary tract infectious disease 37671452 Active 2017 Viridiana rainey [facility] 8 10:44:01 Tobacco dependence syndrome 26926665 Active 2017 Viridiana rainey [facility] 8 10:44:11 Peripheral nerve disease 760657002 Active 2017 Viridiana Miller brigid, [facility] 8 10:44:19 Anemia 139098771 Active 2017 Viridiana rainey, [facility] 8 10:44:24 Thrombocyt openic disorder 799601628 Active [address], [place], [address], [facility] 8 12:35:04 Chronic hepatitis 89931101 Active [address], [address], [place], [address], [facility] 8 12:35:27 Alcohol dependence 52037428 Active 2017 Giovani Juarez MD [address] [facility], [address], [place], [address], [facility] 8 12:06:43 Left upper quadrant pain 349703982 Active 2017 SHELBI Daly [address] , [address], [place], [address], [facility] 8 15:19:12 Cellulitis of buttock 78896966 Active 2022 ELIZABETH JACKSON NP [address] [facility], [address], [place], [address], [facility] 3 13:40:37 Harmful pattern of use of alcohol 16143200 Active 2022 ELIZABETH JACKSON NP [address], [address], [place], [address], [facility] 3 13:41:13 Open wound of buttock 753168147 Active 2022 ELIZABETH JACKSON NP [address], [address], [place], [address], [facility] 3 13:43:26 Problem Notes None recorded. Medical Equipment None Reported. Allergies Allergen ID Allergen Name Allergen Category Reaction Reaction Severity Criticality Documentation Date Start Date Code Code System Note Provider Name and Address Organization Details Recorded Time 66657 peanut allergeni c extract food,medi cation Not available Not available Not available 10/15/2022 45725 8 RxNorm peanu t butte r, facia l tere JACKSON NP [address] [facility], [address], [place], [address], [facility] 3 13:39:42 49884 raspberry extract food,medi cation Not available Not available Not available 10/15/2022 94456 69 RxNorm facia l tere JACKSON NP [address] [facility], [address], [place], [address], [facility] 3 13:40:02 Vitals Date Recorded Heart rate Respiratory rate Body temperature Systolic And Diastolic Provider Name and Address Organization Details Last Updated DateTime 10/15/2022 73 /min 18 /min 98.3 [degF] 91/55 mm[Hg] ELIZABETH JACKSON NP [address] [facility], [address], [place], [address], [facility] 3 13:33:48 Date Recorded Body temperature Oxygen saturation Heart rate Systolic And Diastolic Provider Name and Address Organization Details Last Updated DateTime 10/19/2022 98.3 [degF] 94 % 73 /min 91/55 mm[Hg] Cecilia Tucker MD [address] [facility], [address], [place], [address] , [facility] 3 06:30:21 Date Recorded Body weight Heart rate Respiratory rate Body temperature Oxygen saturation Systolic And Diastolic Provider Name and Address Organization Details Last Updated DateTime 3 71311.7 2 g 73 /min 18 /min 98.3 [degF] 94 % 91/55 mm[Hg] Violette Newell NP [address] [facility], [address], [place], [address], [facility] 3 11:10:43 Date Recorded Body weight Heart rate Respiratory rate Body temperature Oxygen saturation Systolic And Diastolic Provider Name and Address Organization Details Last Updated DateTime 3 67227.7 2 g 73 /min 18 /min 98.3 [degF] 94 % 91/55 mm[Hg] Violette Newell, [place] [address], [address], [place], [address], [facility] 3 12:59:44 Date Recorded Body weight Heart rate Respiratory rate Body temperature Oxygen saturation Systolic And Diastolic Provider Name and Address Organization Details Last Updated DateTime 3 15877.7 2 g 73 /min 18 /min 98.3 [degF] 94 % 91/55 mm[Hg] Violette Newell, [place] [address], [address], [place], [address], [facility] [employer] [facility] 3 10:56:55 Social History Question Answer Notes LastModified by [employer] Details LastModified Time Tobacco Smoking Status Current Every Day Smoker Viridiana Miller brigid, [facility] [employer] [facility] 05/19/2017 10:55:27 Do You Have An Advance Directive? Yes [email or web address] Information not available 10/15/2022 How Many Years Have You Consumed Alcohol? 44 Information not available 05/19/2017 What Is Your Code Status? Full Code [email or web address] Information not available 10/15/2022 Which Illicit Or Recreational Drugs Have You Used? Marijuana [email or web address] Information not available 10/15/2022 How Many Days In The Past Year Have You Had A Heavy Drinking Consumption (4+ Female, 5+ Male)? 365 Drinks 1 Pint Of [place] And 2 Nips/day, Longest Period Of Sobriety 6 Mos Information not available 05/19/2017 Do You Have A Medical Power Of Correction Officer Reformatory? Yes Information not available 05/19/2017 What Was The Date Of Your Most Recent Tobacco Screening? 10/15/2022 [email or web address] Information not available 10/15/2022 How Much Tobacco Do You Smoke? 1 PPD Information not available 05/19/2017 How Many Years Have You Smoked Tobacco? 40 Information not available 05/19/2017 Sex: Unknown Functional Status Question Answer Note LastModified by Organizat ion Details LastModified Time Do you use any illicit or recreational drugs? Yes [email or web address] Information not available 10/15/2022 What is your level of alcohol consumption? Heavy Information not available 05/19/2017 Mental Status None recorded. Family History Nothing Reported Notes:N/C Medical History No medical history recorded. Immunizations Vaccine Type Date Status Note Provider Nam e and Address Organization Details Recorded Time COVID-19 vaccine, vector-nr, rS-Ad26, PF, 0.5 mL 2 completed [facility] 10/22/2022 16:48:27 Tdap 2 completed [facility] 10/22/2022 16:48:42 pneumococcal polysaccharide PPV23 1 completed [facility] 05/27/2023 13:19:59 influenza, unspecified formulation 3 completed [facility] 05/27/2023 13:21:04 influenza, unspecified formulation 4 completed [facility] 05/27/2023 13:21:19 SARS-COV-2 (COVID-19) vaccine, UNSPECIFIED 3 completed [facility] 05/27/2023 13:21:41 Past Encounters Encounter ID Performer Location Encounter Start Date Encounter Closed Date Diagnosis/Indication Diagnosis SNOMED-CT Code Diagnosis ICD10 Code Diagnosis IMO Codes Diagnosis Note [id number] [address] [place] [address] 05/19/2017 10:32:28 05/25/2017 14:07:44 Bilateral deep vein thrombosis of lower extremities 807411759 I82.493 See HPIs/p IVC filter Dec, s/p EKOS catheter thrombolys is 3/2Eliquis 10 mg BID until 05/22 then 5 mg BIDMonitor for increase in pain/edema PT/OT eval and treat Alcohol wi thdrawal delirium 1286219 F10.231 Hx of heavy alcohol use with DTs in hospitalRi speridone 0.25 mg TIDThiamin e 100 mg dailyFolic acid 1 mg dailyMonit or moodNEG consult prn Aspiration pneumonia 422 220480 J69.0 Augmentin to complete courseAdd probioticA spiration precaution sSLP eval and treat Urinary tr act infectious disease 41918727 N30.00 Complete antibiotic as aboveMonit or sxs Chronic ob structive pulmonary disease 09739151 J41.8 Duonebs prnSupplem ental O2 prnMonitor respirator y status Tobacco de pendence syndrome 74196027 F17.210 Nicotine patchEncou rage smoking cessation Peripheral nerve disease 304268936 G64 Secondary to ETOH abuseMonit or sxs Anemia 900619485 D64.89 Repeat and monitor CBC [id number] MD MARKUS Melchor [address] [address] 05/24/2017 10:26:07 05/26/2017 12:52:00 Bilateral deep vein thrombosis of lower extremities 113638627 I82.493 see HPIEliquis 5 mg bidmonitor with restart of medication on dose decreasing from 10 mg bid Alcohol wi thdrawal delirium 3718378 F10.231 see HPIthiamin e 100 mg qdmonitor for sx Tinea cruris 493400729 B 35.6 nystatin powdermoni tor to resolution Peripheral nerve disease 800087194 G64 start neurontin 100 mg tidtitrate for effect Urinary tr act infectious disease 18587860 N10 complete abmonitor for sx Chronic ob structive pulmonary disease 78844141 J41.1 at baselineco ntin[place] [id number] [address] [place] [place] [address] 06/01/2017 10:32:02 06/10/2017 14:19:14 Bilateral deep vein thrombosis of lower extremities 215991369 I82.493 see HPIEliquis 5 mg bidF/u with PCP Alcohol wi thdrawal delirium 4639910 F10.231 see HPIthiamin e 100 mg qdd/c risperidal Home services in place with social work and psych consults Chiqui t motivated to remain sober Peripheral nerve disease 095598546 G64 Increase neurontin 200 mg tidf/u with PCP Urinary tr act infectious disease 00644790 N10 antibiotic course completeap pears resolved Chronic ob structive pulmonary disease 43215425 J41.1 at baselineco [place]tin[place] [id number] [address] 09/16/2017 12:30:46 09/28/2017 15:08:07 Chronic hepatitis 73122882 K70.10 PT/OT eval and treatfollo w LFTsencour age ETOH abstinence psych eval and treat for abstinence follow up with GI prn Thrombocyt openic disorder 563376528 D69.59 monitor labsPlts corrected currently from 70 to 203 Chronic ob structive pulmonary disease 87580106 J41.8 duoneb q 4 hrs prnmonitor respirator y status Peripheral nerve disease 264036612 G64 neurontin 300 mg q 8 hrswill change to 300 mg q 9 am and 2 pm and 600 mg q hsc/o foot pain increased at nightmonit or pain Bilateral deep vein thrombosis of lower extremities 252782358 I82.593 eliquis 2.5 mg bidIVC filter in placemonit or labs Alcohol wi thdrawal delirium 8572686 F10.231 folic acid 1 mg qdmultivit e qdthiamine qdmonitor for withdrawal ativan 0.5 mg q 4 hrs prn added Tobacco de pendence syndrome 37831589 F17.210 nicotine patch 21 mg/24 hr qdmonitor for withdrawal [id number] MD ASHLEY Melchor AT [address] [address] 09/18/2017 12:00:41 09/28/2017 15:44:02 Asthenia 09625481 R53.1 see HPIPT OT eval and treatmonit or lytes Chronic hepatitis 668795 07 K73.2 see HPIseconda ry to ETOHGI eval prn Alcohol dependence 65496 003 F10.288 extended discussion with patient concerning use of etoh and effect on health. when patient returned after SNF stay in 05/16 again began drinking 1 pint and 1 nip per daypatient states understand ing that continuing with prior drinking habits will result in Thrombocyt openic disorder 692537408 D69.59 repeat and monitor cbc Bilateral deep vein thrombosis of lower extremities 897283380 I82.493 see HPIEliquis 2.5 mg bidmonitor with restart of medication IVC filter in place Chronic ob structive pulmonary disease 61741061 J41.1 at baselinedu onebs in place [place] [id number] [address] [address] 09/20/2017 16:11:59 09/28/2017 15:48:42 Chronic hepatitis 24834088 K70.10 PT/OT eval and treatfollo w LFTs weekly and once he is outpt with pcpencoura ge ETOH abstinence follow up with GI prnwill get ortho BPs bid x 2 days Thrombocyt openic disorder 434411601 D69.59 monitor labs, improved Chronic ob structive pulmonary disease 09646063 J41.8 duoneb q 4 hrs prnmonitor respirator y statusenco urage pt to stop smoking Peripheral nerve disease 556984801 G64 neurontin 300 mg q 9 am and 2 pm and 600 mg q hsmonitor pain Bilateral deep vein thrombosis of lower extremities 747847779 I82.593 eliquis 2.5 mg bidIVC filter in placemonit or labs Alcohol wi thdrawal delirium 7548438 F10.231 folic acid 1 mg qdmultivit e qdthiamine qdativan 0.5 mg q 4 hrs prn Tobacco de pendence syndrome 95939497 F17.210 nicotine patch 21 mg/24 hr qd [id number] [address] AT [address] [address] 09/21/2017 15:09:20 09/28/2017 16:05:00 Alcohol dependence 50242748 F10.20 ok to dc home tomorrowst rongly encouraged abstinence /AA Chronic hepatitis 018694 07 K70.10 encourage ETOH abstinence follow up with GI prn and pcp Bilateral deep vein thrombosis of lower extremities 593380419 I82.593 eliquis 2.5 mg bidIVC filter in place Chronic ob structive pulmonary disease 82269338 J41.8 duoneb q 4 hrs prnencoura ge pt to stop smoking Left upper quadrant pain 504270426 R10.12 pt will f/u with PCP as out pt for further testing if needed [id number] [address] [address] 10/02/2017 16:10:48 10/20/2017 12:10:03 Alcohol dependence 94424985 F10.20 see hpiPT OT for conditioni ng and mobilityst rongly encouraged abstinence Chronic ob structive pulmonary disease 17893954 J41.8 duoneb q 4 hrs prnencoura ge pt to stop smoking Anemia 041646999 D64.9 monitor cbc Peripheral nerve disease 054568050 G64 neurontin 300 mg q 9 am and 2 pm and 600 mg q hsmonitor pain Bilateral deep vein thrombosis of lower extremities 100446155 I82.593 resume eliquis 2.5 mg bidIVC filter in placedue to alcoholism he would not be a candidate for coumadin [id number] MD ROSMERY MelchorLEY AT [address] [address] 10/05/2017 15:13:51 10/20/2017 13:22:05 Asthenia 80101943 R53.1 see HPImultifa ctorial PT OT eval and treatmonit or lytes Alcohol dependence 69422 003 F10.288 Repeat extended discussion with patient concerning use of etoh and effect on health. patient states understand ing that continuing with prior drinking habits will result in Chronic hepatitis 974870 07 K73.2 see HPIseconda ry to ETOHGI eval prn Bilateral deep vein thrombosis of lower extremities 030191660 I82.493 see HPIEliquis 2.5 mg bidmonitor with restart of medication IVC filter in place Peripheral nerve disease 502443089 G64 increase gabapentin to 300 mg tidmonitor for effect [id number] [address] 10/07/2017 14:48:18 10/20/2017 14:00:14 Alcohol dependence 03110989 F10.288 encouraged to abstain from ETOHfollow up with PCP Chronic hepatitis 584670 07 K73.2 secondary to ETOHfollow up with PCP Bilateral deep vein thrombosis of lower extremities 246258887 I82.493 Eliquis 2.5 mg bidspoke with him at length about needing to contact PCP and pharmacy to get prior authorizat ion form for eliquisIVC filter in placefollo w up with PCP Peripheral nerve disease 301072609 G64 gabapentin to 300 mg tidtylenol as neededfoll ow up with PCP [id number] ELIZABETH JACKSON NP [address] [address] 10/15/2022 13:30:52 10/20/2022 10:25:28 Cellulitis of buttock 77322210 L03.317 Continue levaquin 500 mg daily x 3 daysAdd probiotic bid x 7 daysStill with inflammati on/indurat ion around woundTrend sx., VS, labsCBC, BMP q wednesday Alcohol dependence 25083 003 F10.288 s/p phenobarb protocol in hosp., no sx. of withdrawal Encourage abstinence Open wound of buttock 26 0137195 S31.829A With associated abscess and cellulitis Debrided 10/08Finish abx. as aboveCurre nt tx. moist kerlix and DCD daily and prnRefer to [facility] wound clinic for eval and tx. - pt. concerned about transporta tion - if too expensive can refer to Wound team hereMonito r wound, VS, labs for change Chronic ob structive pulmonary disease 37412371 J41.8 Combivent respimat 1 inh qid prnAlbuter ol MDI q4 hr prn - requesting to keep at bedside and self administer Continues to smoke Tobacco de pendence syndrome 05442716 F17.210 Continues to smoke hereEnc. 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 for sobrietyth iamine 100 mg dailyfolic acid 1 mg dailyMVI dailywill monitor Open wound of buttock 26 6355710 S31.829A s/p I&Dantibio tics completedw ound care per surgery recommenda tionsfollo w up wound clinic Chronic ob structive pulmonary disease 38624327 J41.8 Combivent 18-103: 1 puff q6h prnalbuter ol HFA: 1 puff q4h prnwill monitor Asthenia 04142056 R53.1 PT/OTwill monitor and support s needed History of deep vein thrombosis 364398057 Z86.718 apixaban 5 mg bidwill monitor [id number] Violette Newell NP [address] [address] 10/22/2022 11:09:43 10/26/2022 10:58:25 Harmful pattern of use of alcohol 36250776 F10.10 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 for sobrietyno tremor noted, anxious at baselineth iamine 100 mg dailyfolic acid 1 mg dailyMVI dailywill monitor Open wound of buttock 26 9682516 S31.829A s/p I&D on 10/08/22IV and po antibiotic s completed for cellulitis wound care per surgery recommenda tionsfollo w up wound clinic and dressings dailymonit or cbc and labs weekly Chronic ob structive pulmonary disease 35856177 J41.8 Combivent 18-103: 1 puff q6h prnalbuter ol HFA: 1 puff q4h prnwill monitor Asthenia 88525279 R53.1 PT/OTwill monitor and support s needed History of deep vein thrombosis 077866729 Z86.718 apixaban 5 mg bids/p ivc filterwill monitor Alcohol dependence 62775 003 F10.288 s/p phenobarb protocol in hosp., no sx. of withdrawal Encourage abstinence Tobacco de pendence syndrome 75682686 F17.210 Continues to smoke hererefuse s nicotine patchEnc. 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 of withdrawal Encourage abstinence Tobacco de pendence syndrome 70758271 F17.210 Continues to smoke here now on scheduled breaks with staffrefus es nicotine patchEnc. abstinence Intertrigo 92942544 L30. 4 nystatin topically powder bid and prn x 14 daysmonito r Neuropathy 690014586 G62 .[address] 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 cover wtih zetuvit plus silicone bordered dressing q 3 dayscont protein liquid or supplement s to add in wound healingmon itor outpt with pcp and vna Intertrigo 67557326 L30. 4 nystatin topically powder bid and prn until healedvna to assess for resolution monitor outpt Neuropathy 266984636 G62 .[address] 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 for sobrietyno tremor noted, anxious at baselineth iamine 100 mg dailyfolic acid 1 mg dailyMVI dailywill monitor outpt with pcp Chronic ob structive pulmonary disease 06309178 J41.8 Combivent 18-103: 1 puff q6h prnalbuter ol HFA: 1 puff q4h prnmonitor outpt with pcp Asthenia 93840003 R53.1 improved herewill monitor and support s needed outptmonit or outpt, pt/ ot to assess for safety, strengthen ing and balance, offloading pressure to wound, and safety conditions at home History of deep vein thrombosis 036575751 Z86.718 apixaban 5 mg bids/p ivc filterwill monitor outpt Alcohol dependence 37307 003 F10.288 s/p phenobarb protocol in hosp., no sx. of withdrawal Encourage abstinence outpt and services as needed Tobacco de pendence syndrome 42936655 F17.210 Continues to smoke here now on [...] Ruiz Member ID Guarantor Name 10/14/2022 1 [facility] - HEALTH NET PLAN (MEDICAID HMO) [id number] Edgardo Zavala [id number] Edgardo Zavala 10/26/[address] [facility] - DOS ON OR AFTER 2022 - MEDICARE ADVANTAGE [place] (MEDICARE REPLACEMENT/ADV ANTAGE - PPO) Edgardo Zavala [id number] Edgardo Zavala Notes Date Note Type Note Provider Name and Address Organization Details Recorded Time 10/15/2022 text/html Edgardo is seen today for initial intake. He is a 62 yo male admitted to [facility] 10/14/22 from [facility] for continued care and rehab after a brief hosp. related to a buttock wound and cellulitis. He presented to [facility] 10/07 with several days of buttock pain [...] covered with DCD. Needs follow up with [facility] wound clinic, ? wound vac. Upon d/c abx. changed to levaquin x 3 more days.DVT - remained on eliquisTobacco use - nicoderm patchCOPD - stable PMH: ETOH abuse, anemia, BLE DVTs IVC filter 2017 and bilat. thrombolysis, chronic hepatitis, COPD, PVD, thrombocytopenia, tobacco use, UTIMOLST: full code ELIZABETH JACKSON NP [address] [facility], [address], [place], [address], [facility] 10/15/2022 14:49:09 10/19/2022 text/html This 62 year old man was admitted to [facility] on 10/14/22for rehab and continued [...] - signed 10/15/22 Cecilia Tucker MD [address] [facility], [address], [place], [address], [facility] 10/19/2022 14:28:20 10/22/2022 text/html Patient is seen for an acute rounding visit today. 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 62 year old man was admitted to [facility] on 10/14/22for rehab and continued [...] - signed 10/15/22 Violette Newell NP [address] [facility], [address], [place], [address], [facility] 10/22/2022 11:32:05 10/26/2022 text/html Patient is seen [...] 62 year old man was admitted to [facility] on 10/14/22for rehab and continued [...] - signed 10/15/22 Violette Newell NP [address] [facility], [address], [place], [address], [facility] 10/26/2022 13:39:46 10/27/2022 text/html Patient is seen for a discharge summary visit today. 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 His groin is improving with the nystatin [...] - signed 10/15/22 Violette Newell, ARNOLD [address] [facility], [address] [address] [place], [address], [facility] - [facility] 10/28/2022 10:11:07
--- OUTSIDE RECORDS SUMMARY | 2025-02-20 12:36 | XMS_ITS | Clinical Summary ---
Author Organization Nella deras Address [address] [place] [address] Care Team Providers Care Network Security Architect Name Role Phone Cristhian Delgado MD Primary Care Provider Encounters Date Type Department Care Team Description 12/05/2024 Travel 12/04/2024 10:49 PM EDT - 12/05/2024 2:40 AM EDT Emergency [facility] Emergency Department [address] [place] [address] Wendy Hardin MD Bronchitis (Primary Dx); Anemia, unspecified type Discharge Disposition: Another Health Care Institution Not Defined from Last 3 Months Social History Tobacco Use Types Packs/Day Years Used Date Smoking Tobacco: Never Assessed Sex and Gender Information Value Date Recorded Sex Assigned at Male 12/04/2024 10:52 PM EDT Legal Sex Male 10:49 PM EDT Gender Identity Male 12/04/2024 10:52 PM EDT Sexual Orientation Not on file Last Filed Vital Signs Vital Sign Reading Time Taken Comments Blood Pressure 108/70 12/05/2024 1:17 AM EDT Pulse 89 12/05/2024 1:17 AM EDT Temperature 37.2 C (99 F) 12/05/2024 1:17 AM EDT Respiratory Rate 18 12/05/2024 1:17 AM EDT Oxygen Saturation 89% 12/05/2024 1:17 AM EDT Inhaled Oxygen Concentration - - Weight - - Height - - Body Mass Index - - Plan of Treatment Health Maintenance Due Date Last Done Comments Lipid Panel 1960 PSA 1960 Prostate Cancer Screening 1960 SDM 1960 Depression Screening 1972 Hepatitis C Screening 1978 CT Colonography 2005 Colonoscopy 2005 Colorectal Cancer Screening 2005 FIT 2005 FOBT 2005 Multitarget Stool DNA (Cologuard) 2005 Sigmoidoscopy 2005 Pneumococcal Vaccine: 50+ Years (2 of 2 - PCV) 07/17/2021 07/17/2020, 09/18/2017 COVID-19 Vaccine (2 - 2024- season) 2024 03/25/2021 Influenza Vaccine (#1) 2024 , 01/28/2023, 04/23/2016, Additional history exists Zoster Vaccine (2 of 2) 11/27/2024 10/02/2024 Blood Pressure 12/05/2025 12/05/2024 DTaP,Tdap,and Td Vaccines (2 - Td or Tdap) 08/04/2031 08/03/2021 Meningococcal B Vaccines Aged Out No longer eligible based on patient's age to complete this topic Meningococcal Vaccines Aged Out No lo nger eligible based on patient's age to complete this topic Procedures Procedure Name Priority Date/Time Associated Diagnosis Comments XR CHEST 2 VW STAT 12/05/2024 12:07 AM EDT ECG 12-LEAD STAT 12/04/2024 11:56 PM EDT LABELS FOR EXTRA TUBES Routine 12/04/2024 11:56 PM EDT YELLOW TOP Routine 12/04/2024 11:56 PM EDT LIGHT BLUE TOP Routine 12/04/2024 11:56 PM EDT CBC AND DIFFERENTIAL STAT 12/04/2024 11:51 PM EDT CBC AND DIFFERENTIAL STAT 12/04/2024 11:51 PM EDT NT-PROBNP STAT 12/04/2024 11:51 PM EDT TROPONIN (ALL) STAT 12/04/2024 11:51 PM EDT BASIC METABOLIC PANEL STAT 12/04/2024 11:51 PM EDT SARS COV2/INFLUENZA A/B AND RSV STAT 12/04/2024 11:47 PM EDT from Last 3 Months Results * XR Chest 2 Vw (12/05/2024 12:07 AM EDT) Anatomical Region Laterality Modality Chest Digital Radiogra phy 12/05/2024 9:50 AM EDT Impressions 12/05/2024 9:51 AM EDT Impression: 1. Mildly hyperinflated lungs. 2. Mildly prominent perihilar lung markings seen on the left side could be associated with bronchitis. Signed By: Marino Mcknight on 12/05/2024 9:51 AM on [id number] Narrative 12/05/2024 9:51 AM EDT Indications: SOB x1 day with BL rales Technique: XR CHEST 2 VW Comparison: None available. Findings: 2 views. Lungs are mildly hyperinflated. Slightly prominent lung markings seen in the perihilar region of the left side. Heart is normal in size. No acute appearing bony abnormality seen. Procedure Note Marino Mcknight MD - 12/05/2024 Indications: SOB x1 day with BL rales Technique: XR CHEST 2 VW Comparison: None available. Findings: 2 views. Lungs are mildly hyperinflated. Slightly prominent lung markings seen in the perihilar region of the left side. Heart is normal in size. No acute appearing bony abnormality seen. IMPRESSION: Impression: 1. Mildly hyperinflated lungs. 2. Mildly prominent perihilar lung markings seen on the left side could be associated with bronchitis. Signed By: Marino Mcknight on 12/05/2024 9:51 AM on [id number] us Wendy Hardin MD IMG DIAGNOSTIC IMAGING ORDERABLE S Final Result * ECG 12 lead, to be obtained, dyspnea (12/04/2024 11:56 PM EDT) Ventricular Heart Rate 92 BPM EKG BUR MUSE MT Interval 134 ms EKG BUR MUSE QRSD Interval 130 ms EKG BUR MUSE QT Interval 347 ms EKG BUR MUSE QTC Interval 430 ms EKG BUR MUSE P Mesa 69 degrees EKG BUR MUSE R Mesa -78 degrees EKG BUR MUSE T Wave [place] 36 degrees EKG BUR MUSE 12/04/2024 11:5 5 PM EDT 12/06/2024 6:44 AM EDT Narrative EKG BUR MUSE - 12/06/2024 6:44 AM EDT SINUS RHYTHM RIGHT BUNDLE BRANCH BLOCK [120+ ms QRS DURATION, UPRIGHT V1, 40+ ms S IN I/aVL/V4/V5/V6] LEFT ANTERIOR FASCICULAR BLOCK [QRS AXIS <= -45, QR IN I, RS IN II] ABNORMAL ECG Confirmed by Real Rodriguez ([id number]) on 12/06/2024 6:44:10 AM Procedure Note Real Rodriguez MD - 12/06/2024 SINUS RHYTHM RIGHT BUNDLE BRANCH BLOCK [120+ ms QRS DURATION, UPRIGHT V1, 40+ ms S INI/aVL/V4/V5/V6] LEFT ANTERIOR FASCICULAR BLOCK [QRS AXIS <= -45, QR IN I, RS IN II] ABNORMAL ECG Confirmed by Real Rodriguez ([id number]) on 12/06/2024 6:44:10 AM Wendy Hardin MD ECG ORDERABLES Final Result Performing Organization Address City/[facility]/ZIP Co de Phone Number EKG BUR MUSE [address] [place] [address] * Gold Top (12/04/2024 11:56 PM EDT) Gold Top Tube Received 12/05/2024 1:01 AM EDT [facility] Blood PERIPHERAL BLOOD SPECIMEN / Unknown Venipuncture / Unknown 12/04/2024 11:56 PM EDT 12/05/2024 12:07 AM EDT us Wendy Hardin MD LAB BLOOD ORDERABLES Final Resul t Performing Organization Address City/[facility]/ZIP Co de Phone Number [facility] [address] [place] [phone], [place] * Blue Top (12/04/2024 11:56 PM EDT) [facility] Blue Top Tube Received 12/05/2024 1:01 AM EDT [facility] Blood PERIPHERAL BLOOD SPECIMEN / Unknown Venipuncture / Unknown 12/04/2024 11:56 PM EDT 12/05/2024 12:07 AM EDT us Wendy Hardin MD LAB BLOOD ORDERABLES Final Resul t Performing Organization Address City/[facility]/ZIP Co de Phone Number [facility] [address] [place] [address], [place] * Troponin (once) (12/04/2024 11:51 PM EDT) [facility] Troponin T HS 12 <=19 ng/L 12/05/2024 12:29 AM EDT [facility] Blood PERIPHERAL BLOOD SPECIMEN / Unknown Venipuncture / Unknown 12/04/2024 11:51 PM EDT 12/05/2024 12:05 AM EDT us Wendy Hardin MD LAB BLOOD ORDERABLES Final Resul t Performing Organization Address City/[facility]/ZIP Co de Phone Number [facility] [address] [place] [address], [place] * (ABNORMAL) CBC and Differential (12/04/2024 11:51 PM EDT) [facility] WBC 7.54 3.90 - 10.80 K/uL 12/05/2024 12:[address] [facility] RBC 3.66(L) 4.42 - 5.73 M/uL 12/05/2024 12:[address] [facility] Hemoglobin 11.0(L) 14.0 - 17.3 g/dL 12/05/2024 12:[address] [facility] Hematocrit 33.6(L) 40.1 - 51.0 % 12/05/2024 12:[address] [facility] MCH 30.1 25.6 - 32.2 pg 12/05/2024 12:[address] [facility] MCHC 32.7 32.0 - 36.0 g/dL 12/05/2024 12:[address] [facility] MCV 92 83 - 96 fL 12/05/2024 12:[address] [facility] RDW 16.8(H) 11.5 - 14.0 % 12/05/2024 12:[address] [facility] Platelet Count 212 154 - 369 K/uL 12/05/2024 12:[address] [facility] Neutrophil 74.7 % 12/05/2024 12:[address] [facility] Lymphocyte 9.5 % 12/05/2024 12:[address] [facility] Monocyte 13.9 % 12/05/2024 12:[address] [facility] Eosinophil 0.9 % 12/05/2024 12:[address] [facility] Basophil 0.5 % 12/05/2024 12:[address] [facility] Immature Granulocyte ([place], Myelo, Promyelocyte) 0.5 % 12/05/2024 12:[address] [facility] Absolute Neutrophil Count 5.62 1.68 - 7.99 K/uL 12/05/2024 12:[address] [facility] Absolute Immature Granulocyte ([place], Myelo, Promyelocyte) 0.04 0.00 - 0.09 K/uL 12/05/2024 12:[address] [facility] Absolute Lymphocyte Count 0.72 0.66 - 4.75 K/uL 12/05/2024 12:[address] [facility] Absolute Monocyte Count 1.05 0.16 - 1.40 K/uL 12/05/2024 12:[address] [facility] Absolute Eosinophil Count 0.07 0.00 - 0.60 K/uL 12/05/2024 12:[address] [facility] Absolute Basophil Count 0.04 0.00 - 0.32 K/uL 12/05/2024 12:[address] [facility] Blood PERIPHERAL BLOOD SPECIMEN / Unknown Venipuncture / Unknown 12/04/2024 11:51 PM EDT 12/05/2024 12:05 AM EDT us Wendy Hardin MD LAB BLOOD ORDERABLES Final Resul t Performing Organization Address City/[facility]/ZIP Co de Phone Number [facility] [address] [place] [address], * NT-proBNP (12/04/2024 11:51 PM EDT) Pathologist [facility] NT-ProBNP 312 <900 pg/mL 12/05/2024 12:29 AM EDT [facility] Blood PERIPHERAL BLOOD SPECIMEN / Unknown Venipuncture / Unknown 12/04/2024 11:51 PM EDT 12/05/2024 12:05 AM EDT us Wendy Hardin MD LAB BLOOD ORDERABLES Final Resul t Performing Organization Address [facility] Co de Phone Number [facility] [address] [place] [phone], [place] * (ABNORMAL) Basic Metabolic Panel (12/04/2024 11:51 PM EDT) [facility] Sodium 132(L) 135 - 146 mmol/L 12/05/2024 12:[address] [facility] Potassium 4.5 3.4 - 5.2 mmol/L 12/05/2024 12:[address] [facility] Chloride 96(L) 98 - 110 mmol/L 12/05/2024 12:[address] [facility] Total CO2/Bicarbonat e 24 24 - 32 mmol/L 12/05/2024 12:[address] [facility] Anion Gap 12 2 - 15 mmol/L 12/05/2024 12:[address] [facility] BUN 20 7 - 24 mg/dL 12/05/2024 12:[address] [facility] Creatinine, Blood 1.20 0.60 - 1.30 mg/dL 12/05/2024 12:[address] [facility] Glucose, Blood 130(H) 50 - 100 mg/dL 12/05/2024 12:[address] [facility] Calcium 9.4 8.5 - 10.5 mg/dL 12/05/2024 12:[address] [facility] Estimated GFR(CKD-EPI) 68 mL/min/BSA 12/05/2024 12:29 AM EDT [facility] Blood PERIPHERAL BLOOD SPECIMEN / Unknown Venipuncture / Unknown 12/04/2024 11:51 PM EDT 12/05/2024 12:05 AM EDT us Wendy Hardin MD LAB BLOOD ORDERABLES Final Resul t Performing Organization Address [facility]/ZIP Co de Phone Number [facility] [address] [place] [phone], * Covid/Flu/RSV (Rapid) (12/04/2024 11:47 PM EDT) Coronavirus SARS-CoV-2 Negative Negative 12/05/2024 12:50 AM EDT [facility] Influenza A Negative Negative 12/05/2024 12:50 AM EDT [facility] Influenza B Negative Negative 12/05/2024 12:50 AM EDT [facility] RSV by PCR Negative Negative 12/05/2024 12:50 AM EDT [facility] Respiratory SWAB OF INTERNAL NOSE / Unknown Collection / Unknown 12/04/2024 11:47 PM EDT 12/04/2024 11:56 PM EDT Narrative [facility] - 12/05/2024 12:50 AM EDT Test performed with [employer] GeneXpert SARS-CoV-2 PCR assay, which has received emergency use authorization (EUA) by the U.S. Food and Drug Administration. Negative results do not preclude SARS-CoV-2 infection and should not be used as the sole basis for treatment or other patient management decisions. us Wendy Hardin MD BODY FLUIDS AND STOOLS ORDERABLE S Final Result Performing Organization Address [facility]/ZIP Co de Phone Number [facility] [address] [place] [phone], from Last [address] [facility] / [employer] Care Address: CLAIMS [address] [place] [address] [facility] Care Teams Network Security Architect Relationship Specialty Start Date End Date Cristhian Delgado MD [address] [place] [address] [place] [address] PCP - General Internal Medicine 12/04/24
--- NOTE | 2025-02-20 13:13 | ED_ITS ---
HPI - General Adult General Chief complaint: Fall Stated complaint: FALL/DOWN APROX 18H,+THINNER,ETOH USE Time Seen by Provider: 02/20/25 12:34 Source: patient Mode of arrival: ambulatory Limitations: no limitations History of Present Illness ED Provider: DR. Moya HPI narrative: 64-year-old male with a known history of alcohol use disorder was found at home on the ground by visiting N who called the ambulance and brought him to the ED, patient's last drink was this morning, known to have history of alcohol withdrawal including seizure, patient is on Eliquis for DVT and sustained multiple fall including hitting his head. no headache, no neck pain, no chest pain, patient noted that he has been having cough while in the emergency department. Related Data Home Medications ?Medication ?Instructions ?Recorded ?Confirmed apixaban 5 mg tablet (Eliquis) 5 mg PO BID 08/29/22 albuterol sulfate 90 mcg/actuation 2 puff inhalation Q 4H PRN 01/17/25 01/17/25 aerosol inhaler Shortness Of Breath buspirone 7.5 mg tablet 7.5 mg PO TID 01/17/2501/17 hydroxyzine pamoate 50 mg capsule 50 mg PO BID 5 01/24/25 melatonin 5 mg tablet 5 - 10 mg PO BEDTIME PRN Sle ep 01/17/25 01/17/25 mirtazapine 15 mg tablet 15 mg PO BEDTIME 01/17/25 prazosin 1 mg capsule 1 mg PO BEDTIME 01/17/25 sertraline 100 mg tablet 200 mg PO DAILY 01/17/25 Previous Rx's ?Medication ?Instructions ?Recorded fluticasone fur. 100 mcg-umeclid 1 inh inhalation RDAI LY 30 days #1 01/22/25 62.5 mcg-vilant 25 mcg ea inhalat.powder (Trelegy Ellipta) folic acid 1 mg tablet 1 mg PO DAILY 30 days #30 ta bs 01/22/25 naltrexone 50 mg tablet 50 mg PO DAILY 30 days #30 t abs 01/22/25 nicotine 7 mg/24 hr daily 7 mg transdermal DAILY 30 da ys #1 01/22/25 transdermal patch ea thiamine mononitrate (vit B1) 100 100 mg PO DAILY 30 d ays #30 tabs 01/22/25 mg tablet acetaminophen 500 mg tablet 1,000 mg (2 x 500 mg) PO Q 6H PRN 01/25/25 pain #30 tabs lidocaine 5 % topical patch 1 patch topical DAILY #15 ea 01/25/25 Allergies Allergy/AdvReac Type Severity Reaction Status Date / Time Peanut Butter Allergy Facial Verified 02/20/25 10:34 Swelling raspberry Allergy Facial Verified 02/20/25 10:34 Swelling Review of Systems 2 Review of Systems: All other systems are reviewed and are negative Constitutional: Reports as per HPI and Reports no additional constitutional complaints Eyes: Reports as per HPI and Reports no additional eye complaints Reports system reviewed and no additional complaints, except as documented Cardiovascular: Reports as per HPI and Reports no additional cardiovascular complaints Respiratory: Reports as per HPI and Reports no additional respiratory complaints Gastrointestinal: Reports as per HPI and Reports no additional gastrointestinal complaints Genitourinary: Reports no additional female genitourinary complaints Musculoskeletal: Reports no additional musculoskeletal complaints Skin/Breast: Reports system reviewed and no additional complaints, except as docu Psychiatric: Reports no additional psychiatric complaints Endocrine: Reports no additional endocrine complaints Hematologic/Lymphatic: Reports no additional hematologic/lymphatic complaints Allergic/Immunologic: Reports no additional allergic/immunologic complaints Reports system reviewed and no additional complaints, except as documented and Reports Abnormal speech [facility] Past Medical History Medical History Alcohol withdrawal Alcohol dependence Presence of IVC filter Acute and chronic respiratory failure with hypoxia COPD (chronic obstructive pulmonary disease) Alcohol use disorder, severe, dependence Tobacco abuse Subdural hematoma DVT (deep venous thrombosis) COPD (chronic obstructive pulmonary disease) Asthma Neuropathy Alcohol abuse Social History Social History Household Members: None Housing: House Do you presently have visiting nurse or other home services: No Alcohol intake: current Alcohol intake frequency: 3 or more drinks per day Alcohol type: hard liquor Comment: pt refuses high fall risk interventions Patient Tobacco Use Status: Current everyday Tobacco user Tobacco use type: Cigarette Cigarette Packs Per Day: 1 Cigarettes Per Day: 20.0 Smoked in Last 30 Days: Yes e-Cigarette/Vaping Use: Never Used Second Hand Smoke Exposure: No Use of substances other than those prescribed or required for medical reasons: Yes Substance Use Type: Marijuana Advance Directives: Yes Advance Directives on File: Yes Advance Directives Date on File: 03/05/22 Do you have a plan to hurt others: No Plan service: No Current occupational status: disabled Physical Exam ED Vital Signs: Vital Signs - 24 hr 02/20/25 10:27 02/20/25 12:11 02/20/25 14:08 Temperature 99.7 F Pulse Rate 112 H 122 H 122 H Respiratory Rate 18 18 16 Blood Pressure 96/56 L 110/64 116/72 Pulse Oximetry 95 92 86 L Oxygen Delivery Method Nasal Cannula Nasal Cannula Room Air Oxygen Flow Rate 2 02/20/25 14:09 Temperature Pulse Rate Respiratory Rate Blood Pressure Pulse Oximetry 90 L Oxygen Delivery Method Nasal Cannula Oxygen Flow Rate 2 BMI result Body Mass Index 19.6 Vital signs have been reviewed and appear to be correct. Blood pressure elevated. Heart rate elevated. Respiratory rate normal. Temperature normal. Oxygen saturation normal. Appearance: Alert. Oriented X3. No acute distress. Head: Normal external exam. Normocephalic. diffuse forehead areas of ecchymosis. No Blair signs noted. No raccoon eyes noted Eyes: PERRLA. EOMI. Conjunctiva and sclera normal. Eyelids normal. ENT: TM's Normal. Pharynx normal. Uvula midline. Moist mucous membranes. No trismus noted. No drooling noted. No muffled voice noted. Neck: Normal inspection. Neck supple. FROM. No adenopathy. Thyroid Normal. No meningeal signs. No neck mass noted. CVS: Normal heart rate and rhythm. Heart sound normal. No murmurs noted. Pulses normal throughout. Respiratory: No respiratory distress. Painless inspiration. Breath sounds normal. No wheezes/rales/rhonchi noted. Chest nontender. No accessory muscle usage noted or decreased air movement noted. Abdomen: Soft and nontender. Bowel sounds normal in all 4 quadrants. No distention noted. No organomegaly noted. No visible injury noted. Back: No CVA tenderness. Full range of motion noted. Skin: Skin warm and dry. Normal skin color. Normal skin turgor. No rashes/lesions/lacerations noted. Extremities: No lower extremity edema. Extremities exhibit normal range of motion. Extremities nontender. Neuro: Oriented X 3. Cranial nerve exam: II-XII are grossly intact No motor deficit. No sensory deficit. Reflexes normal. Course Reevaluation(s) Reevaluation #1: 64-year-old male with alcohol use disorder and alcohol withdrawal disorder with found on the ground at home by [facility] visiting nurse and transported to the hospital. Patient is on anticoagulation with sign of head injury and falls CT head is unremarkable for acute intra-abdominal bleed, GCS of 15 and normal neuro exam, patient was started on phenobarb with a CIWA score of 15, will start IV hydration for mild rhabdo with CPK of a 1000. Inpatient admission for further evaluation. Time: 14:41 Medications Administered Generic Name Dose Route Start Last Admin Trade Name Freq PRN Reason Stop Dose Admin Lactated Ringer's 1,000 mls @ 999 mls/hr 02/20/25 14:30 02/20/25 14:38 Lr IV 02/20/25 15:30 999 mls/hr .[id number] NOHEMI Administration Discontinued Medications Generic Name Dose Route Start Last Admin Trade Name Freq PRN Reason Stop Dose Admin Phenobarbital Sodium 192 mg 02/20/25 13:30 02/20/25 13:32 Phenobarbital Sodium 130 Mg/Ml Im Once IM 02/20/25 13:31 192 mg ONCE ONE Administration Medical Decision Making Differential Diagnosis Differential Diagnoses: The differential diagnosis associated with the presentation includes ( Intracranial bleed, cervical spine injury, rhabdomyolysis, electrolyte derangement, TAMEKA, severe anemia, alcohol withdrawal, intracranial bleed, cervical spine injury.) Admission/Observation Consideration of admission/observation: Escalation of care including admission/observation considered Lab Data MDM Lab Attestation statement: I reviewed the patient's lab results. 02/20/25 10:54 02/20/25 11:15 Labs: Lab Results 02/20/25 02/20/25 Range/Units 10:54 11:15 WBC 8.0 (4.8-10.8) X10*3/uL RBC 3.77 L (4.60-5.80) X10*6/uL Hgb 11.7 L (14.0-18.0) g/dl Hct 33.8 L (42.0-52.0) % MCV 89.7 (80.0-98.0) fL MCH 31.0 (27.0-33.0) pg MCHC 34.6 (31.0-36.0) g/dl RDW 15.8 (11.0-16.0) % Plt Count 81 L D (160-400) X10*3/uL MPV 9.0 L (9.4-12.4) fL Immature Gran % (Auto) 0.6 H (0.0-0.4) % Neut % (Auto) 88.8 H (45-73) % Lymph % (Auto) 4.3 L (20-40) % [place] % (Auto) 5.8 (2-11) % Eos % (Auto) 0.0 (0-4) % Baso % (Auto) 0.5 (0-2) % Lymph # (Auto) 0.3 L (1.2-4.9) X10*3/uL [place] # (Auto) 0.5 (0.1-1.2) X10*3/uL Eos # (Auto) 0.0 (0.0-0.4) X10*3/uL Baso # (Auto) 0.0 (0.0-0.2) X10*3/uL Abs Immat Gran (auto) 0.05 H (0.00-0.03) X10*3/uL Absolute Neuts (auto) 7.1 (2.0-8.3) x10*3/uL Absolute Nucleated RBC 0.000 (0.0-0.012) X10*3/uL Nucleated RBC % (auto) 0.0 (0.0-0.2) /100WBC Sodium Cancelled 136 Potassium Cancelled 3.4 Chloride Cancelled 98 Carbon Dioxide Cancelled 23 Anion Gap Cancelled 18 BUN Cancelled 13 Creatinine Cancelled 0.67 Estim Creat Clear Calc Cancelled 94.8 Estimated GFR Cancelled > 60 Random Glucose Cancelled 108 Calcium Cancelled 8.0 L D Total Bilirubin Cancelled 0.6 Direct Bilirubin Cancelled 0.4 AST Cancelled 82 H ALT Cancelled 23 Alkaline Phosphatase Cancelled 161 H Total Creatine Kinase Cancelled 1000 H Total Protein Cancelled 6.6 Albumin Cancelled 3.5 Lipase Cancelled 16 Ethyl Alcohol 267 mg/dL Influenza Type A (PCR) NEGATIVE (Negative) Influenza Type B (PCR) NEGATIVE (Negative) RSV RNA Qual (PCR) NEGATIVE (Negative) SARS-CoV-2 RNA (RT-PCR) NEGATIVE (Negative) Independent Interpretation I performed an independent interpretation of an: Plain X-Ray ( Chest: No acute cardiopulmonary abnormality.) and CT Scan ( Head/C-spine: No acute intracranial pathology. No cervical spine acute fracture.) Radiology Impression Discussion of test interpretation with radiology: I have reviewed the radiologist's reading. Discharge Plan Discharge Clinical Impression: Rhabdomyolysis, Withdrawal symptoms, alcohol, Closed head injury Patient Disposition: Admitted As Inpatient Print Language: Anguillan
[2025-02-20] MEDS: PHENobarbitaL sodium 130 MG/ML IM ONCE 192 MG IM (13:32)
--- NOTE | 2025-02-20 14:05 | PC.NURSE ---
pt was found to have low O2 sat on room air by EMS, when he arrived without O2 he was 88%, O2 was reapplied. Pt has been found continuously with the O2 taken off as he doesnt like to wear it. tech just notified this nurse that his O2 sat on room air was 86%. Per Pt he is a 2 ppd smoker.
--- NOTE | 2025-02-20 14:12 | MHC.CARE ---
Pt is now being medically admitted per ED provider.
[2025-02-20] MEDS: Lactated Ringers 1,000 ML 999 ML IV (14:38)
--- NOTE | 2025-02-20 15:31 | PM.IMHP ---
History of Present Illness Date of Service: 02/20/25 Chief Complaint: Alcohol abuse 64-year-old male, with a background history of active smoking, COPD, prior DVT s/p IVC filter on apixaban, peripheral neuropathy, recent admission for upper GI bleeding 2/2 EtOH, active ETOH abuse with multiple presentations and admissions for withdrawal, multiple falls, BIBA to hospital with complaints of a fall and ETOH withdrawal after being found unresponsive by his visiting [facility]. PRESENTATION Reports drinking 2 pt of whiskey per day Last drink was this morning Patient reports he presented to hospital after multiple falls over the past few days, and due to persistent ETOH use. Patient represents a challenging historian, with lack of ability to provide temporality to symptoms. Has multiple complaints, primarily that he is actively withdrawing from ETOH, requesting help He endorses generalized abdominal discomfort, mostly localized to the left lower quadrant. Defecating dark brown stool, not black in color. No BRBPR Denies nausea or vomiting Reports very poor p.o. intake I do not remember last time I had a meal Endorses a chronic cough, pleuritic chest pain Reports feeling cold all the time - no fevers chills or rigors. Reports tremulousness. ED COURSE Noted to have head injury and multiple falls. He is on blood thinners. CT brain without IV contrast ordered, -ve for acute intracranial bleeding GCS 15 normal neuro examination as per emergency room Noticing signs and symptoms of ETOH withdrawal, started on phenobarbital taper CIWA score 15 Noting elevated CPK 1000, stone NaCl IVF Noted to be thrombocytopenic, with elevated AST 82, and elevated alkaline phosphatase of 161 Ethyl alcohol level on presentation 267 indicating acute intoxication Review of Systems Review of Systems: Yes all other systems are reviewed and are negative [facility] Medical History Alcohol withdrawal Alcohol dependence Presence of IVC filter Acute and chronic respiratory failure with hypoxia COPD (chronic obstructive pulmonary disease) Alcohol use disorder, severe, dependence Tobacco abuse Subdural hematoma DVT (deep venous thrombosis) COPD (chronic obstructive pulmonary disease) Asthma Neuropathy Alcohol abuse Social History Household Members: None Housing: House Do you presently have visiting nurse or other home services: No Alcohol intake: current Alcohol intake frequency: 3 or more drinks per day Alcohol type: hard liquor Comment: pt refuses high fall risk interventions Patient Tobacco Use Status: Current everyday Tobacco user Tobacco use type: Cigarette Cigarette Packs Per Day: 1 Cigarettes Per Day: 20.0 Smoked in Last 30 Days: Yes e-Cigarette/Vaping Use: Never Used Second Hand Smoke Exposure: No Use of substances other than those prescribed or required for medical reasons: Yes Substance Use Type: Marijuana Advance Directives: Yes Advance Directives on File: Yes Advance Directives Date on File: 03/05/22 Do you have a plan to hurt others: No Plan service: No Current occupational status: disabled Meds Allergies Allergy/AdvReac Type Severity Reaction Status Date / Time Peanut Butter Allergy Facial Verified 02/20/25 10:34 Swelling raspberry Allergy Facial Verified 02/20/25 10:34 Swelling Active Medications: Current Medications Acetaminophen (Acetaminophen 325 Mg Tablet) 650 mg PO Q6H PRN PRN Reason: Pain, Mild 1-3,fever,headache Calcium Carbonate (Calcium Carbonate 750 Mg Tab.Chew) 750 mg PO Q4H PRN PRN Reason: Heartburn Thiamine HCl 400 mg/ Sodium (Chloride) 104 mls @ 208 mls/hr IV ONCE ONE Stop: 02/20/25 15:58 Thiamine HCl 200 mg/ Sodium (Chloride) 102 mls @ 204 mls/hr IV DAILY [facility] Magnesium Hydroxide (Milk Of Magnesia 30 Ml Oral.Susp) 30 ml PO DAILY PRN PRN Reason: Constipation Melatonin (Melatonin 3 Mg Tablet) 6 mg PO BEDTIME PRN PRN Reason: Insomnia Pantoprazole Sodium (Pantoprazole Sodium 40 Mg/10 Ml Vial) 40 mg IVPUSH ONCE ONE Stop: 02/20/25 15:30 Pharmacy Consult (Consult Rx Etoh Phenob Im/Po) 1 each MISCELLANE ONCE PRN; Protocol PRN Reason: Consult order Phenobarbital (Phenobarbital 15 Mg Tablet) 45 mg PO BID NOHEMI Stop: 02/22/25 21:01 Phenobarbital (Phenobarbital 30 Mg Tablet) 30 mg PO BID [facility] Stop: 02/24/25 21:01 Phenobarbital (Phenobarbital 15 Mg Tablet) 15 mg PO DAILY [facility] Stop: 02/26/25 09:01 Phenobarbital Sodium (Phenobarbital Sodium 130 Mg/Ml Vial Im Q3hx2) 144 mg IM Q3H [facility] Stop: 02/20/25 19:01 Sodium Chloride (0.9 % Sodium Chloride Flush 3 Ml Syringe) 3 ml IVFLUSH QSHIFT [facility] Home Medications ?Medication ?Instructions ?Recorded ?Confirmed ?Last Taken ?Type apixaban 5 mg tablet (Eliquis) 5 mg PO BID 08/29/22 01/24/25 06/07/23 History albuterol sulfate 90 mcg/actuation 2 puff inhalation Q4H PRN 01/17/25 01/17/25 Unknown History aerosol inhaler Shortness Of Breath buspirone 7.5 mg tablet 7.5 mg PO TID 01/17/25 01/17/25 Unknown History hydroxyzine pamoate 50 mg capsule 50 mg PO BID 01/17/25 01/24/25 Unknown History melatonin 5 mg tablet 5 - 10 mg PO BEDTIME PRN Sleep 01/17/25 01/17/25 Unknown History mirtazapine 15 mg tablet 15 mg PO BEDTIME 01/17/25 01/17/25 Unknown History prazosin 1 mg capsule 1 mg PO BEDTIME 01/17/25 01/17/25 Unknown History sertraline 100 mg tablet 200 mg PO DAILY 01/17/25 01/17/25 Unknown History Physical Exam Vital Signs and Narrative: Vital Signs: Last Vital Signs Temp 98.7 F 02/20/25 15:03 Pulse 114 H 02/20/25 15:03 Resp 16 02/20/25 15:03 BP 116/68 02/20/25 15:03 Pulse Ox 95 02/20/25 15:03 O2 Del Method Nasal Cannula 02/20/25 15:03 O2 Flow Rate 2 02/20/25 15:03 Oxygen Flow Rate 2 02/20/25 10:27 BMI result Body Mass Index 19.6 General: A&O x3, oriented to time place person and situation, comfortable, no pain. Breath smells of alcohol. Disheveled Cardiac: S1, S2 auscultated with no S3/4, no MRG. Well perfused. Respiratory: Decreased inspiratory and expiratory breath sounds bilaterally, with wheezing auscultated throughout all lung zones, primarily an upper zones, without hypoxia or rales or crepitations. No peripheral or central cyanosis GI/ : Mild tenderness to palpation of the left lower quadrant, without rebound guarding ecchymosis. MSK: Normal ambulation without pain at bony prominences or musculature. Generalized muscular atrophy in upper and lower extremities and temporal muscle wasting. Multiple bruises identified around the face and extremities. Neurological: Normal neurological examination on overview, without obvious CN II-XII abnormalities. Results Labs 02/20/25 10:54 02/20/25 11:15 Labs: Laboratory Results - last 24 hr 02/20/25 02/20/25 10:54 11:15 MCV 89.7 MCH 31.0 MCHC 34.6 RDW 15.8 Plt Count 81 L D MPV 9.0 L Immature Gran % (Auto) 0.6 H Neut % (Auto) 88.8 H Lymph % (Auto) 4.3 L Blanco % (Auto) 5.8 Eos % (Auto) 0.0 Baso % (Auto) 0.5 Lymph # (Auto) 0.3 L Blanco # (Auto) 0.5 Eos # (Auto) 0.0 Baso # (Auto) 0.0 Abs Immat Gran (auto) 0.05 H Absolute Neuts (auto) 7.1 Absolute Nucleated RBC 0.000 Nucleated RBC % (auto) 0.0 Anion Gap Cancelled 18 Estim Creat Clear Calc Cancelled 94.8 Estimated GFR Cancelled > 60 Random Glucose Cancelled 108 Calcium Cancelled 8.0 L D Total Bilirubin Cancelled 0.6 Direct Bilirubin Cancelled 0.4 AST Cancelled 82 H ALT Cancelled 23 Alkaline Phosphatase Cancelled 161 H Total Creatine Kinase Cancelled 1000 H Total Protein Cancelled 6.6 Albumin Cancelled 3.5 Lipase Cancelled 16 Ethyl Alcohol 267 Influenza Type A (PCR) NEGATIVE Influenza Type B (PCR) NEGATIVE RSV RNA Qual (PCR) NEGATIVE SARS-CoV-2 RNA (RT-PCR) NEGATIVE Imaging Radiologist's Impressions: Impressions Chest X-Ray 02/20/25 12:57 IMPRESSION: No acute cardiopulmonary abnormality. Electronically signed by: Shiraz Nova MD 02/20/2025 01:15 PM EST RP Cervical Spine CT 02/20/25 13:03 IMPRESSION: No acute bony abnormality. Stable chronic changes. Electronically signed by: Ryan Simpson MD 02/20/2025 01:37 PM EST RP Head CT 02/20/25 13:03 IMPRESSION: No acute intracranial abnormality. 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 Electronically signed by: Ryan Simpson MD 02/20/2025 01:30 PM EST RP Assessment and Plan (1) Alcohol abuse: Status: Acute (2) Withdrawal symptoms, alcohol: Qualifiers: Complication of substance-induced condition: uncomplicated Qualified Code(s): F10.930 - Alcohol use, unspecified with withdrawal, uncomplicated Status: Acute (3) DVT (deep venous thrombosis): Qualifiers: DVT location: lower extremity Affected thrombotic vein of extremity: unspecified vein of extremity Chronicity: chronic Laterality: unspecified laterality Qualified Code(s): I82.509 - Chronic embolism and thrombosis of unspecified deep veins of unspecified lower extremity Status: Acute (4) Presence of IVC filter: Status: Acute (5) Martinez esophagus: Qualifiers: Martinez's esophagus type: without dysplasia Qualified Code(s): K22.70 - Martinez's esophagus without dysplasia Status: Acute (6) Pancytopenia: Status: Acute (7) Rhabdomyolysis: Qualifiers: Rhabdomyolysis type: traumatic Encounter type: initial encounter Qualified Code(s): T79.6XXA - Traumatic ischemia of muscle, initial encounter Status: Acute (8) COPD (chronic obstructive pulmonary disease): Qualifiers: COPD type: unspecified COPD Qualified Code(s): J44.9 - Chronic obstructive pulmonary disease, unspecified Status: Acute (9) Smoker: Status: Acute (10) Falls: Status: Acute Plan 64-year-old male, with a background history of active smoking, COPD, prior DVT s/p IVC filter on apixaban, peripheral neuropathy, recent admission for upper GI bleeding 2/2 EtOH, active ETOH abuse with multiple presentations and admissions for withdrawal, multiple falls, BIBA to hospital with complaints of a fall and ETOH withdrawal after being found unresponsive by his visiting BHN., admitted with ETOH abuse, withdrawal. EtOH Abuse ETOH intoxication EtOH Withdrawal Multiple falls PLAN - CIWA - Phenobarbital withdrawal protocol - Thiamine IV 400mg x1 days - Thiamine 200mg IV OD - Folic acid - Addiction medicine consultation - post stabilization, assess the patient's capacity; multiple presentations for ETOH intoxication, withdrawal and persistence abuse, multiple falls Traumatic rhabdomyolysis Multiple falls Elevated CPK 1000 Continue IVF Daily CPK Recent upper GI bleed Martinez's esophagus GERD Endorses dark brown stool, no melena or hematochezia Has not been compliant with medications in the outpatient setting, nor with ETOH abstinence PLAN - pantoprazole 40 mg OD IV - holding apixaban and VTE chemoprophylaxis Hypomagnesemia Hypokalemia Failure to thrive in adult PLAN - K >4 - Mg >2 - repeat BMP - dietitian consultation Alcoholic hepatitis Elevated transaminases Evaluation for hepatic dysfunction ongoing Continue to monitor History of DVT History of IVC filter placement On Anticoagulation PLAN - Check INR given ETOH abuse and prior elevation - holding apixaban and VTE prophylaxis Pancytopenia - Thrombocytopenia Etiologically possibly 2/2 bone marrow suppression in setting of ETOH abuse Other possible pathology could be superimposed such as MDS PLAN - outpatient evaluation with Hematology/Oncology COPD Smoker Smoking cessation counseling provided Patient refuses nicotine patch or other chemical supports QUALITY METRICS - VTE: SCDs - hold chemo prophylaxis - CODE STATUS: Full code - DIET: Regular diet Quality Stroke Does the patient have a stroke diagnosis?: No VTE Prior VTE?: Yes VTE Risk Level:: Medical - moderate - high VTE Device Contraindication: N/A - Device Ordered VTE Drug Contraindication: Treatment Not Tolerated
--- NOTE | 2025-02-20 15:50 | PC.NURSE ---
pharmacy called they will make the thiamine and bring it to the ED
[2025-02-20] MEDS: PHENobarbitaL sodium 130 MG/ML VIAL IM Q3Hx2 144 MG IM ×2 (15:53→17:39)
[2025-02-20] MEDS: 0.9 % Sodium Chloride Flush 3 ML SYRINGE IVFLUSH ×2 (15:54→19:31)
--- NOTE | 2025-02-20 15:57 | PHA.MEDREC ---
Pharmacy Consult ? Medication Reconciliation Pharmacy has completed the medication reconciliation. Spoke with patient to confirm medications. Although pharmacy claims show many recent medications recently filled, pt states he is only taking Eliquis, Trelegy, and melatonin. Pt states he has bottles of many of the other medications in question, but has not taken them. The following medications were removed from the med list, but did show recent pharmacy claims: Buspirone 7.5mg TID Folic Acid 1mg daily Hydroxyzine pamoate 50mg BID Lidocaine 1 patch daily Mirtazapine 15mg Bedtime Naltrexone 50mg daily Nicotine 7mg patch daily Prazsoin 1mg bedtime Thiamine 100mg daily
--- NOTE | 2025-02-20 16:22 | HO.NURTONUR ---
pt comes in from home via ems found on floor in front of his chair by [facility] staff, pt states he fell approx 3pm yesterday, c/o generalized pain. Known for etoh his last drink was this morning- he drinks in excess- etoh was 267, phenobarb protocol was started. CK was 1000. Pt lungs have rhonchi- clears with cough- encouraged to spit sputum into emesis bag, his O2 sat was mid 80s on R/A he was placed on 2L NC which he then went up to 93%. Pharmacy was contacted for the thiamine which has not yet been brought to the ED. Imaging is negative, he has scattered scabs and ecchymotic areas from multiple falls in the last week. He has a 20 in the Lt wrist. He has not been oob ambulating but in the past he was unsteady and needed assist.
[2025-02-20] MEDS: Lactated Ringers 1,000 ML 80 ML IVCONT (18:43)
[2025-02-20] MEDS: Lactated Ringers 250 ML 999 ML IV (18:47)
[2025-02-20 20:01] LABS: Cannabinoid Screen Urine Not Detected (Not Detect)
[2025-02-21] VITALS (13 sets, daily range): BP systolic 96–146; BP diastolic 50–92; PULSE 87–117; RESP 16–22; TEMP 36.7–37.4; O2SAT 94–100
--- NOTE | 2025-02-21 04:25 | PC.RT ---
Pt was asked during 0000 tx if he wanted to be awoken for 0200 tx. Pt stated he did not want to be bothered. Pt req tx at approximately 0405. 0600 tx was given early.
[2025-02-21] MEDS: Lactated Ringers 1,000 ML 80 ML IVCONT ×2 (05:37→21:12)
[2025-02-21 06:17] LABS: MANUAL DIFF FLAG NO
[2025-02-21 06:21] LABS: Hematocrit 30.7 % (42.0-52.0); Hemoglobin 10.6 g/dl (14.0-18.0); Imm Gran Abs Auto 0.04 X10*3/uL (0.00-0.03); Imm Gran Pct Auto 0.7 % (0.0-0.4); Lymphocytes Absolute Auto 0.6 X10*3/uL (1.2-4.9); Mean Corpuscular HGB Conc 34.5 g/dl (31.0-36.0); Mean Corpuscular Hemoglobin 31.2 pg (27.0-33.0); Mean Corpuscular Volume 90.3 fL (80.0-98.0); NRBC Abs Auto 0.000 X10*3/uL (0.0-0.012); NRBC Pct Auto 0.0 /100WBC (0.0-0.2); Red Blood Count 3.40 X10*6/uL (4.60-5.80); White Blood Count 6.1 X10*3/uL (4.8-10.8)
[2025-02-21 06:27] LABS: Platelet Count 58 X10*3/uL (160-400)
[2025-02-21 06:52] LABS: Alanine Aminotransferase 24 U/L (0-40); Albumin Level 3.1 g/dL (3.5-5.0); Alkaline Phosphatase 152 U/L (39-117); Anion Gap 14 (12-20); Aspartate Amino Transferase 103 U/L (5-37); Blood Urea Nitrogen 9 mg/dL (9-16); Calcium 7.9 mg/dL (8.4-10.2); Carbon Dioxide 29 mmol/L (22-29); Chloride 97 mmol/L (96-108); Creatinine Clr Calc Pharmacy 114.9; Estimated Glomerular Filt Rate > 60; Potassium 3.7 mmol/L (3.3-5.1); Sodium 136 mmol/L (135-145); Total Protein 6.0 g/dL (6.5-8.0)
[2025-02-21] MEDS: Magnesium Sulfate/H2O 2 GM/50 ML PIGGYBACK IV (07:33)
[2025-02-21 07:34] LABS: Magnesium 1.2 mg/dL (1.6-2.6)
[2025-02-21] MEDS: Fluticasone/Umeclidinium/Vilanterol 100/62.5/25 BLST.W.DEV 1 PUFF INHALE (07:52)
[2025-02-21] MEDS: PHENobarbital 15 MG TABLET 45 MG PO ×2 (08:34→21:12)
--- NOTE | 2025-02-21 08:48 | MHC.CM.PN ---
Addendum entered by Regine Jimenez 02/21/25 10:37: BARBARA met with Patient's CCA BARBARA/Leo @ [phone] who is available to assist with dc planning. Patient is active with [facility] for SN. Original Note: IMM was addressed with Patient. Patient is S/P a fall and would benefit from a PT Eval to assist with disposition; CM has initiated and will follow for dc planning. PCP is Dr. Cristhian Delgado ans Son/Real is the HCP. Patient is likely [place] requ[place]. Patient lives alone in a house and he uses a cane.
--- NOTE | 2025-02-21 09:50 | PC.NURSE ---
Addendum entered by Ammy Phillip RN 02/21/25 17:38: Pt's heartrate in the 150's twice while ambulating in [place] and to the toilet. Pt SOB with activity, requesting rescue inhaler. C/o dry cough. Reporting neuropathic pain to bilateral feet. He states that the neuropathy is also starting in his hands. Gabapentin requested, as he reports that he used to take it for his neuropathy. He quite taking gabapentin because he ran out and did not refill the prescription. Original Note: Pt alert and oriented. He has been tachycardic, 110's at rest up to 130's with activity. He reports weakness while walking to toilet. C/o neuropathic pain in feet 09/07 after tylenol. Expiratory wheezes. 90-91% on room air.
--- NOTE | 2025-02-21 10:31 | HO.ADDICT_ITS ---
History of Present Illness Date of Service: 02/21/2025 Chief Complaint: ETOH withdrawl, electrolyte abnormality Reason for Consult: AUD Sources of Information: patient interviewed and chart reviewed HPI Narrative: Patient is a 64 year old male with history of AUD, COPD, DVT and UGI bleed. Medically admitted after sustaining a fall at home. 13 ED visits since 09/2024 all related to alcohol use. 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 He is awake, alert, engaged in interview. Tearful during several points, making self critical statements. Sharing the numerous losses he's had in his life. Long history of AUD. Numerous admissions to various levels of care. He reports weeks of not drinking while in treatment. Currently he reports anxiety and is tremulous. Phenobarbital taper in place. VS overall WNL, with some periods of tachycardia Also reporting pain on his head and shoulder after sustaining a fall at home. Bruises and small abrasions noted to forehead and left shoulder and arm. Mg low-repleted this AM Review of Systems Constitutional: Reports as per HPI Diagnostics Vital Signs (24Hr): Vital Signs - 24 hr 02/20/25 12:11 02/20/25 14:08 02/20/25 14:09 Temperature Pulse Rate 122 H 122 H Pulse Rate [Left Apical] Respiratory Rate 18 16 Blood Pressure 110/64 116/72 Pulse Oximetry 92 86 L 90 L Oxygen Delivery Method Nasal Cannula Room Air Nasal Cannula Oxygen Flow Rate 2 2 02/20/25 15:03 02/20/25 16:00 02/20/25 17:46 Temperature 98.7 F 98.6 F Pulse Rate 114 H 118 H Pulse Rate [Left Apical] 114 H Respiratory Rate 16 18 Blood Pressure 116/68 127/80 Pulse Oximetry 95 95 Oxygen Delivery Method Nasal Cannula Nasal Cannula Oxygen Flow Rate 2 3 02/20/25 19:19 02/20/25 19:25 02/20/25 19:54 Temperature 100.3 F Pulse Rate 127 H 120 H Pulse Rate [Left Apical] Respiratory Rate 18 20 Blood Pressure 132/69 Pulse Oximetry 92 96 Oxygen Delivery Method Nasal Cannula Oxymask Oxygen Flow Rate 3 3 02/20/25 20:43 02/20/25 20:47 02/20/25 22:30 Temperature 99.6 F Pulse Rate 109 H 94 Pulse Rate [Left Apical] Respiratory Rate Blood Pressure Pulse Oximetry Oxygen Delivery Method Oxygen Flow Rate 02/20/25 22:36 02/21/25 00:00 02/21/25 01:02 Temperature 98.6 F Pulse Rate 96 96 89 Pulse Rate [Left Apical] Respiratory Rate 20 18 16 Blood Pressure 139/63 Pulse Oximetry 100 Oxygen Delivery Method Oxymask Oxygen Flow Rate 3 02/21/25 03:54 02/21/25 04:19 02/21/25 07:27 Temperature 98.4 F 98.4 F Pulse Rate 92 99 89 Pulse Rate [Left Apical] Respiratory Rate 18 22 H 16 Blood Pressure 115/71 100/67 Pulse Oximetry 100 96 Oxygen Delivery Method Oxymask Oxymask Oxygen Flow Rate 3 3 02/21/25 07:54 Temperature Pulse Rate 92 Pulse Rate [Left Apical] Respiratory Rate 16 Blood Pressure Pulse Oximetry Oxygen Delivery Method Oxygen Flow Rate BMI result Body Mass Index 19.5 Labs 02/21/25 06:04 02/21/25 06:04 Labs: Laboratory Results - last 48 hr 02/20/25 02/20/25 02/20/25 10:54 11:15 19:28 WBC 8.0 RBC 3.77 L Hgb 11.7 L Hct 33.8 L MCV 89.7 MCH 31.0 MCHC 34.6 RDW 15.8 Plt Count 81 L D MPV 9.0 L Immature Gran % (Auto) 0.6 H Neut % (Auto) 88.8 H Lymph % (Auto) 4.3 L [place] % (Auto) 5.8 Eos % (Auto) 0.0 Baso % (Auto) 0.5 Lymph # (Auto) 0.3 L [place] # (Auto) 0.5 Eos # (Auto) 0.0 Baso # (Auto) 0.0 Abs Immat Gran (auto) 0.05 H Absolute Neuts (auto) 7.1 Absolute Nucleated RBC 0.000 Nucleated RBC % (auto) 0.0 Sodium Cancelled 136 Potassium Cancelled 3.4 Chloride Cancelled 98 Carbon Dioxide Cancelled 23 Anion Gap Cancelled 18 BUN Cancelled 13 Creatinine Cancelled 0.67 Estim Creat Clear Calc Cancelled 94.8 Estimated GFR Cancelled > 60 Random Glucose Cancelled 108 Calcium Cancelled 8.0 L D Magnesium Total Bilirubin Cancelled 0.6 Direct Bilirubin Cancelled 0.4 AST Cancelled 82 H ALT Cancelled 23 Alkaline Phosphatase Cancelled 161 H Total Creatine Kinase Cancelled 1000 H Total Protein Cancelled 6.6 Albumin Cancelled 3.5 Lipase Cancelled 16 Urine Opiates Screen Not Detected Ur Buprenorphine Scrn Not Detected Ur Oxycodone Screen Not Detected Urine Methadone Screen Not Detected Urine Fentanyl Screen Not Detected Ur Barbiturates Screen POSITIVE H Ur Phencyclidine Scrn Not Detected Ur Amphetamines Screen Not Detected U Benzodiazepines Scrn Not Detected Urine Cocaine Screen Not Detected U Marijuana (THC) Screen Not Detected Ethyl Alcohol 267 Influenza Type A (PCR) NEGATIVE Influenza Type B (PCR) NEGATIVE RSV RNA Qual (PCR) NEGATIVE SARS-CoV-2 RNA (RT-PCR) NEGATIVE 02/21/25 06:04 WBC 6.1 RBC 3.40 L Hgb 10.6 L Hct 30.7 L MCV 90.3 MCH 31.2 MCHC 34.5 RDW 15.7 Plt Count 58 L D MPV 10.2 Immature Gran % (Auto) 0.7 H Neut % (Auto) 82.2 H Lymph % (Auto) 9.0 L [place] % (Auto) 5.2 Eos % (Auto) 2.6 Baso % (Auto) 0.3 Lymph # (Auto) 0.6 L [place] # (Auto) 0.3 Eos # (Auto) 0.2 Baso # (Auto) 0.0 Abs Immat Gran (auto) 0.04 H Absolute Neuts (auto) 5.1 Absolute Nucleated RBC 0.000 Nucleated RBC % (auto) 0.0 Sodium 136 Potassium 3.7 Chloride 97 Carbon Dioxide 29 Anion Gap 14 BUN 9 Creatinine 0.55 Estim Creat Clear Calc 114.9 Estimated GFR > 60 Random Glucose 89 Calcium 7.9 L Magnesium 1.2 L* Total Bilirubin 1.1 H Direct Bilirubin AST 103 H ALT 24 Alkaline Phosphatase 152 H Total Creatine Kinase 977 H Total Protein 6.0 L Albumin 3.1 L Lipase Urine Opiates Screen Ur Buprenorphine Scrn Ur Oxycodone Screen Urine Methadone Screen Urine Fentanyl Screen Ur Barbiturates Screen Ur Phencyclidine Scrn Ur Amphetamines Screen U Benzodiazepines Scrn Urine Cocaine Screen U Marijuana (THC) Screen Ethyl Alcohol Influenza Type A (PCR) Influenza Type B (PCR) RSV RNA Qual (PCR) SARS-CoV-2 RNA (RT-PCR) Imaging Radiology Impressions: ITS Impressions Chest X-Ray 02/20/25 12:57 IMPRESSION: No acute cardiopulmonary abnormality. Electronically signed by: Shiraz Nova MD 02/20/2025 01:15 PM EST RP Cervical Spine CT 02/20/25 13:03 IMPRESSION: No acute bony abnormality. Stable chronic changes. Electronically signed by: Ryan Simpson MD 02/20/2025 01:37 PM EST RP Head CT 02/20/25 13:03 IMPRESSION: No acute intracranial abnormality. 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 Electronically signed by: Ryan Simpson MD 02/20/2025 01:30 PM EST RP Mental Status Exam Mental Status Exam Patient Appearance: Unkempt Level of Consciousness: Awake and Alert Patient Behavior: Appropriate, Cooperative and Crying Affect Description: Sad Speech Pattern: Clear Thought Process: Intact Thought Content: positive for Intact and positive for [place] Judgement: Fair Medications Medications Current Medications Acetaminophen (Acetaminophen 325 Mg Tablet) 650 mg PO Q6H PRN PRN Reason: Pain, Mild 1-3,fever,headache Last Admin: 02/21/25 06:09 Dose: 650 mg Calcium Carbonate (Calcium Carbonate 750 Mg Tab.Chew) 750 mg PO Q4H PRN PRN Reason: Heartburn Fluticasone/Umeclidinium/Vilanterol (Fluticasone/Umeclidinium/Vilanterol 100/62.5/25 Blst.W.Dev) 1 puff INHALE RDAILY [facility] Last Admin: 02/21/25 07:52 Dose: 1 puff Folic Acid (Folic Acid 1 Mg Tablet) 1 mg PO DAILY [facility] Last Admin: 02/21/25 08:34 Dose: 1 mg Thiamine HCl 200 mg/ Sodium (Chloride) 102 mls @ 204 mls/hr IV DAILY [facility] Lactated Ringer's (Lr) 1,000 mls @ 80 mls/hr IVCONT .[id number] [facility] Last Admin: 02/21/25 05:37 Dose: 80 mls/hr Levalbuterol HCl (Levalbuterol Hcl 1.25 Mg/3 Ml Vial.Neb) 1.25 mg INHALE Q4H [facility] Last Admin: 02/21/25 07:52 Dose: 1.25 mg Magnesium Hydroxide (Milk Of Magnesia 30 Ml Oral.Susp) 30 ml PO DAILY PRN PRN Reason: Constipation Melatonin (Melatonin 3 Mg Tablet) 6 mg PO BEDTIME PRN PRN Reason: Insomnia Pantoprazole Sodium (Pantoprazole Sodium 40 Mg/10 Ml Vial) 40 mg IVPUSH DAILY@0630 [facility] Last Admin: 02/21/25 05:36 Dose: 40 mg Pharmacy Consult (Consult Rx Etoh Phenob Im/Po) 1 each MISCELLANE ONCE PRN; Protocol PRN Reason: Consult order Phenobarbital (Phenobarbital 15 Mg Tablet) 45 mg PO BID [facility] Stop: 02/22/25 21:01 Last Admin: 02/21/25 08:34 Dose: 45 mg Phenobarbital (Phenobarbital 30 Mg Tablet) 30 mg PO BID [facility] Stop: 02/24/25 21:01 Phenobarbital (Phenobarbital 15 Mg Tablet) 15 mg PO DAILY [facility] Stop: 02/26/25 09:01 Sodium Chloride (0.9 % Sodium Chloride Flush 3 Ml Syringe) 3 ml IVFLUSH QSHIFT [facility] Last Admin: 02/21/25 08:35 Dose: Not Given Allergies Allergies Allergy/AdvReac Type Severity Reaction Status Date / Time Peanut Butter Allergy Facial Verified 02/20/25 10:34 Swelling raspberry Allergy Facial Verified 02/20/25 10:34 Swelling Assessment & Plan Assessment & Plan (1) Alcohol use disorder, severe, dependence: Status: Acute Code(s): F10.20 - Alcohol dependence, uncomplicated Assessment and Plan: * phenobarbital taper in place--withdrawal sx improving, however still tremulous with periods of increased HR. Extra dose of phenobarbital may be administered if needed * IV thiamine in place * PRN hydroxyzine for withdrawal (clonidine not used due to low BPs) * Will continue to follow --collaborating with community providers secondary to concern for inability to care for self related to ongoing alcohol use. At this time dispo seems like it will be STR, however patient has declined this in the past (most recently last month). High risk for serious injury at home secondary to ongoing alcohol use and impaired mobility. Total time managing care of this patient today __50__ minutes. PMFSH Past Medical History Medical History Alcohol use disorder, severe, dependence Alcohol withdrawal Alcohol dependence Presence of IVC filter Acute and chronic respiratory failure with hypoxia COPD (chronic obstructive pulmonary disease) Tobacco abuse Subdural hematoma DVT (deep venous thrombosis) COPD (chronic obstructive pulmonary disease) Asthma Neuropathy Alcohol abuse Social History Social History Household Members: None Housing: House Do you presently have visiting nurse or other home services: Yes Alcohol intake: current Alcohol intake frequency: 3 or more drinks per day Alcohol type: hard liquor Comment: pt refuses high fall risk interventions Patient Tobacco Use Status: Current everyday Tobacco user Tobacco use type: Cigarette Cigarette Packs Per Day: 1 Cigarettes Per Day: 20.0 e-Cigarette/Vaping Use: Never Used Second Hand Smoke Exposure: No Substance Use Type: Marijuana Advance Directives Date on File: 03/05/22 service: No Current occupational status: disabled
--- NOTE | 2025-02-21 10:59 | P.PNIM_ITS ---
Subjective Subjective Date of Service: 02/21/25 Interval History: Undergoing section 35 in community multiple admissions to hospital for EtOH abuse Multiple relapses patient reports feeling better overall; reports persistent tremulousness and anxiety. no bleeding/ hematochezia, melena, hematemesis... no hallucinations currently Review of Systems Review of Systems: Yes all other systems are reviewed and are negative Physical Exam 2 Exam: Exam: General: A&O x3, oriented to time place person and situation, comfortable, no pain. Breath smells of alcohol. Disheveled Cardiac: S1, S2 auscultated with no S3/4, no MRG. Well perfused. Respiratory: Decreased inspiratory and expiratory breath sounds bilaterally, with wheezing auscultated throughout all lung zones, primarily an upper zones, without hypoxia or rales or crepitations. No peripheral or central cyanosis GI/ : Mild tenderness to palpation of the left lower quadrant, without rebound guarding ecchymosis. MSK: Normal ambulation without pain at bony prominences or musculature. Generalized muscular atrophy in upper and lower extremities and temporal muscle wasting. Multiple bruises identified around the face and extremities. Neurological: Normal neurological examination on overview, without obvious CN II-XII abnormalities. Vital Signs: Vital Signs: Last Vital Signs Temp 98.4 F 02/21/25 07:27 Pulse 92 02/21/25 07:54 Resp 16 02/21/25 07:54 BP 100/67 02/21/25 07:27 Pulse Ox 96 02/21/25 07:27 O2 Del Method Oxymask 02/21/25 07:27 O2 Flow Rate 3 02/21/25 07:27 Oxygen Flow Rate 2 02/20/25 10:27 BMI result Body Mass Index 19.5 Objective Data Active Medications Acetaminophen (Acetaminophen 325 Mg Tablet) 650 mg PO Q6H PRN PRN Reason: Pain, Mild 1-3,fever,headache Last Admin: 02/21/25 06:09 Dose: 650 mg Documented By: YOVANA Calcium Carbonate (Calcium Carbonate 750 Mg Tab.Chew) 750 mg PO Q4H PRN PRN Reason: Heartburn Fluticasone/Umeclidinium/Vilanterol (Fluticasone/Umeclidinium/Vilanterol 100/62.5/25 Blst.W.Dev) 1 puff INHALE RDAILY [facility] Last Admin: 02/21/25 07:52 Dose: 1 puff Documented By: LILIA Folic Acid (Folic Acid 1 Mg Tablet) 1 mg PO DAILY [facility] Last Admin: 02/21/25 08:34 Dose: 1 mg Documented By: CAT Thiamine HCl 200 mg/ Sodium (Chloride) 102 mls @ 204 mls/hr IV DAILY [facility] Lactated Ringer's (Lr) 1,000 mls @ 80 mls/hr IVCONT .[id number] [facility] Last Admin: 02/21/25 05:37 Dose: 80 mls/hr Documented By: YOVANA Levalbuterol HCl (Levalbuterol Hcl 1.25 Mg/3 Ml Vial.Neb) 1.25 mg INHALE Q4H [facility] Last Admin: 02/21/25 07:52 Dose: 1.25 mg Documented By: LILIA Magnesium Hydroxide (Milk Of Magnesia 30 Ml Oral.Susp) 30 ml PO DAILY PRN PRN Reason: Constipation Melatonin (Melatonin 3 Mg Tablet) 6 mg PO BEDTIME PRN PRN Reason: Insomnia Pantoprazole Sodium (Pantoprazole Sodium 40 Mg/10 Ml Vial) 40 mg IVPUSH DAILY@0630 [facility] Last Admin: 02/21/25 05:36 Dose: 40 mg Documented By: YOVANA Pharmacy Consult (Consult Rx Etoh Phenob Im/Po) 1 each MISCELLANE ONCE PRN; Protocol PRN Reason: Consult order Phenobarbital (Phenobarbital 15 Mg Tablet) 45 mg PO BID [facility] Stop: 02/22/25 21:01 Last Admin: 02/21/25 08:34 Dose: 45 mg Documented By: CAT Phenobarbital (Phenobarbital 30 Mg Tablet) 30 mg PO BID [facility] Stop: 02/24/25 21:01 Phenobarbital (Phenobarbital 15 Mg Tablet) 15 mg PO DAILY [facility] Stop: 02/26/25 09:01 Sodium Chloride (0.9 % Sodium Chloride Flush 3 Ml Syringe) 3 ml IVFLUSH QSHIFT [facility] Last Admin: 02/21/25 08:35 Dose: Not Given Documented By: CAT Non-Admin Reason: IV Running Labs 02/21/25 06:04 02/21/25 06:04 Labs: Laboratory Results - last 24 hr 02/20/25 02/20/2525 10:54 11:15 19:28 MCV 89.7 MCH 31.0 MCHC 34.6 RDW 15.8 Plt Count 81 L D MPV 9.0 L Immature Gran % (Auto) 0.6 H Neut % (Auto) 88.8 H Lymph % (Auto) 4.3 L [place] % (Auto) 5.8 Eos % (Auto) 0.0 Baso % (Auto) 0.5 Lymph # (Auto) 0.3 L [place] # (Auto) 0.5 Eos # (Auto) 0.0 Baso # (Auto) 0.0 Abs Immat Gran (auto) 0.05 H Absolute Neuts (auto) 7.1 Absolute Nucleated RBC 0.000 Nucleated RBC % (auto) 0.0 Anion Gap Cancelled 18 Estim Creat Clear Calc Cancelled 94.8 Estimated GFR Cancelled > 60 Random Glucose Cancelled 108 Calcium Cancelled 8.0 L D Magnesium Total Bilirubin Cancelled 0.6 Direct Bilirubin Cancelled 0.4 AST Cancelled 82 H ALT Cancelled 23 Alkaline Phosphatase Cancelled 161 H Total Creatine Kinase Cancelled 1000 H Total Protein Cancelled 6.6 Albumin Cancelled 3.5 Lipase Cancelled 16 Urine Opiates Screen Not Detected Ur Buprenorphine Scrn Not Detected Ur Oxycodone Screen Not Detected Urine Methadone Screen Not Detected Urine Fentanyl Screen Not Detected Ur Barbiturates Screen POSITIVE H Ur Phencyclidine Scrn Not Detected Ur Amphetamines Screen Not Detected U Benzodiazepines Scrn Not Detected Urine Cocaine Screen Not Detected U Marijuana (THC) Screen Not Detected Ethyl Alcohol 267 Influenza Type A (PCR) NEGATIVE Influenza Type B (PCR) NEGATIVE RSV RNA Qual (PCR) NEGATIVE SARS-CoV-2 RNA (RT-PCR) NEGATIVE 02/21/25 06:04 MCV 90.3 MCH 31.2 MCHC 34.5 RDW 15.7 Plt Count 58 L D MPV 10.2 Immature Gran % (Auto) 0.7 H Neut % (Auto) 82.2 H Lymph % (Auto) 9.0 L [place] % (Auto) 5.2 Eos % (Auto) 2.6 Baso % (Auto) 0.3 Lymph # (Auto) 0.6 L [place] # (Auto) 0.3 Eos # (Auto) 0.2 Baso # (Auto) 0.0 Abs Immat Gran (auto) 0.04 H Absolute Neuts (auto) 5.1 Absolute Nucleated RBC 0.000 Nucleated RBC % (auto) 0.0 Anion Gap 14 Estim Creat Clear Calc 114.9 Estimated GFR > 60 Random Glucose 89 Calcium 7.9 L Magnesium 1.2 L* Total Bilirubin 1.1 H Direct Bilirubin AST 103 H ALT 24 Alkaline Phosphatase 152 H Total Creatine Kinase 977 H Total Protein 6.0 L Albumin 3.1 L Lipase Urine Opiates Screen Ur Buprenorphine Scrn Ur Oxycodone Screen Urine Methadone Screen Urine Fentanyl Screen Ur Barbiturates Screen Ur Phencyclidine Scrn Ur Amphetamines Screen U Benzodiazepines Scrn Urine Cocaine Screen U Marijuana (THC) Screen Ethyl Alcohol Influenza Type A (PCR) Influenza Type B (PCR) RSV RNA Qual (PCR) SARS-CoV-2 RNA (RT-PCR) Assessment and Plan (1) Alcohol abuse: Status: Acute (2) Alcohol use disorder, severe, dependence: Status: Acute (3) Withdrawal symptoms, alcohol: Status: Acute (4) DVT (deep venous thrombosis): Status: Acute (5) Presence of IVC filter: Status: Acute (6) Martinez esophagus: Status: Acute (7) Pancytopenia: Status: Acute (8) Rhabdomyolysis: Status: Acute (9) Neuropathy: Status: Acute (10) COPD (chronic obstructive pulmonary disease): Status: Acute (11) Smoker: Status: Acute (12) Falls: Status: Acute Plan 64-year-old male, with a background history of active smoking, COPD, prior DVT s/p IVC filter on apixaban, peripheral neuropathy, recent admission for upper GI bleeding 2/2 EtOH, active ETOH abuse with multiple presentations and admissions for withdrawal, multiple falls, BIBA to hospital with complaints of a fall and ETOH withdrawal after being found unresponsive by his visiting BHN., admitted with ETOH abuse, withdrawal. EtOH Abuse ETOH intoxication EtOH Withdrawal Multiple falls PLAN - CIWA - Phenobarbital withdrawal protocol - Thiamine IV 400mg x1 days - Thiamine 200mg IV OD - Folic acid - Addiction medicine consultation - post stabilization, assess the patient's capacity; multiple presentations for ETOH intoxication, withdrawal and persistence abuse, multiple falls - Addiction medicine consulted; patient may require section 35 due to frequent presentations and admissions for EtOH abuse/ w/d Traumatic rhabdomyolysis Multiple falls Elevated CPK 1000 - minimal improvement with hydration Continue IVF Daily CPK Recent upper GI bleed Martinez's esophagus GERD Endorses dark brown stool, no melena or hematochezia Has not been compliant with medications in the outpatient setting, nor with ETOH abstinence PLAN - pantoprazole 40 mg OD IV - holding apixaban and VTE chemoprophylaxis Hypomagnesemia Hypokalemia Failure to thrive in adult PLAN - K >4 - Mg >2 - repeat BMP - dietitian consultation Alcoholic hepatitis Elevated transaminases Evaluation for hepatic dysfunction ongoing Continue to monitor History of DVT History of IVC filter placement On Anticoagulation PLAN - Check INR given ETOH abuse and prior elevation - holding apixaban and VTE prophylaxis Pancytopenia - Thrombocytopenia Etiologically possibly 2/2 bone marrow suppression in setting of ETOH abuse Other possible pathology could be superimposed such as MDS PLAN - outpatient evaluation with Hematology/Oncology COPD Smoker Smoking cessation counseling provided Patient refuses nicotine patch or other chemical supports QUALITY METRICS - VTE: SCDs - hold chemo prophylaxis - CODE STATUS: Full code - DIET: Regular diet Total time managing care of this patient today: 45 minutes. Quality Stroke Does the patient have a stroke diagnosis?: No VTE Prior VTE?: Yes VTE Risk Level:: Medical - moderate - high VTE Device Contraindication: N/A - Device Ordered VTE Drug Contraindication: Treatment Not Tolerated
[2025-02-21 14:59] LABS: Anion Gap 13 (12-20); Blood Urea Nitrogen 9 mg/dL (9-16); Calcium 7.9 mg/dL (8.4-10.2); Carbon Dioxide 28 mmol/L (22-29); Chloride 95 mmol/L (96-108); Creatinine Clr Calc Pharmacy 97.2; Estimated Glomerular Filt Rate > 60; Magnesium 1.5 mg/dL (1.6-2.6); Potassium 3.1 mmol/L (3.3-5.1); Sodium 133 mmol/L (135-145)
[2025-02-21] MEDS: 0.9 % Sodium Chloride Flush 3 ML SYRINGE IVFLUSH (21:13)
[2025-02-22] VITALS (9 sets, daily range): BP systolic 106–121; BP diastolic 57–66; PULSE 80–97; RESP 16–19; TEMP 36.1–37.3; O2SAT 92–99
[2025-02-22 07:44] LABS: Hematocrit 29.5 % (42.0-52.0); Hemoglobin 10.0 g/dl (14.0-18.0); Imm Gran Abs Auto 0.02 X10*3/uL (0.00-0.03); Imm Gran Pct Auto 0.6 % (0.0-0.4); Lymphocytes Absolute Auto 0.5 X10*3/uL (1.2-4.9); MANUAL DIFF FLAG NO; Mean Corpuscular HGB Conc 33.9 g/dl (31.0-36.0); Mean Corpuscular Hemoglobin 31.2 pg (27.0-33.0); Mean Corpuscular Volume 91.9 fL (80.0-98.0); NRBC Abs Auto 0.000 X10*3/uL (0.0-0.012); NRBC Pct Auto 0.0 /100WBC (0.0-0.2); Red Blood Count 3.21 X10*6/uL (4.60-5.80); White Blood Count 3.2 X10*3/uL (4.8-10.8)
[2025-02-22 07:54] LABS: Platelet Count 57 X10*3/uL (160-400)
[2025-02-22] MEDS: Fluticasone/Umeclidinium/Vilanterol 100/62.5/25 BLST.W.DEV 1 PUFF INHALE (07:54)
[2025-02-22 08:09] LABS: Alanine Aminotransferase 110 U/L (0-40); Albumin Level 2.8 g/dL (3.5-5.0); Alkaline Phosphatase 240 U/L (39-117); Anion Gap 11 (12-20); Aspartate Amino Transferase 472 U/L (5-37); Blood Urea Nitrogen 4 mg/dL (9-16); Calcium 7.8 mg/dL (8.4-10.2); Carbon Dioxide 32 mmol/L (22-29); Chloride 98 mmol/L (96-108); Creatinine Clr Calc Pharmacy 123.9; Estimated Glomerular Filt Rate > 60; Magnesium 1.3 mg/dL (1.6-2.6); Potassium 3.1 mmol/L (3.3-5.1); Sodium 138 mmol/L (135-145); Total Protein 5.5 g/dL (6.5-8.0)
[2025-02-22] MEDS: PHENobarbital 15 MG TABLET 45 MG PO ×2 (08:19→21:16)
[2025-02-22] MEDS: Thiamine HCL 200 MG in 0.9 % Sodium Chloride 100 ML 204 MG IV (08:21)
--- NOTE | 2025-02-22 08:40 | P.PNIM_ITS ---
Subjective Subjective Date of Service: 02/22/25 Interval History: no new complaints today standing and mobilizing with walker to bathroom - unsteady and remains tremulous patient reports I still feel like sh*t informed him he seems more comfortable than yesterday - he denies this - patient unable to elaborate further Review of Systems Review of Systems: Yes all other systems are reviewed and are negative Physical Exam 2 Exam: Exam: General: A&O x3, oriented to time place person and situation, comfortable, no pain. Disheveled. Multiple facial ecchymosis Cardiac: S1, S2 auscultated with no S3/4, no MRG. Well perfused. Respiratory: Decreased inspiratory and expiratory breath sounds bilaterally, with wheezing auscultated throughout all lung zones, primarily an upper zones, without hypoxia or rales or crepitations. No peripheral or central cyanosis GI/ : Mild tenderness to palpation of the left lower quadrant, without rebound guarding ecchymosis. MSK: Normal ambulation without pain at bony prominences or musculature. Generalized muscular atrophy in upper and lower extremities and temporal muscle wasting. Multiple bruises identified around the face and extremities. multiple skin excoriations, scabs and small wounds. Neurological: Normal neurological examination on overview, without obvious CN II-XII abnormalities. Vital Signs: Vital Signs: Last Vital Signs Temp 97.5 F 02/22/25 07:45 Pulse 93 02/22/25 07:55 Resp 17 02/22/25 07:55 BP 109/57 L 02/22/25 07:45 Pulse Ox 92 02/22/25 07:45 O2 Del Method Nasal Cannula 02/22/25 07:45 O2 Flow Rate 2 02/22/25 07:45 Oxygen Flow Rate 2 02/20/25 10:27 BMI result Body Mass Index 19.5 Objective Data Active Medications Acetaminophen (Acetaminophen 325 Mg Tablet) 650 mg PO Q6H PRN PRN Reason: Pain, Mild 1-3,fever,headache Last Admin: 02/22/25 08:20 Dose: 650 mg Documented By: CAT Benzonatate (Benzonatate 100 Mg Capsule) 100 mg PO TID PRN PRN Reason: Cough Last Admin: 02/22/25 06:02 Dose: 100 mg Documented By: BENITO Calcium Carbonate (Calcium Carbonate 750 Mg Tab.Chew) 750 mg PO Q4H PRN PRN Reason: Heartburn Fluticasone/Umeclidinium/Vilanterol (Fluticasone/Umeclidinium/Vilanterol 100/62.07/23 Blst.W.Dev) 1 puff INHALE RDAILY [facility] Last Admin: 02/22/25 07:54 Dose: 1 puff Documented By: ALISA Folic Acid (Folic Acid 1 Mg Tablet) 1 mg PO DAILY [facility] Last Admin: 02/22/25 08:18 Dose: 1 mg Documented By: CAT Gabapentin (Gabapentin 100 Mg Capsule) 100 mg PO TID [facility] Last Admin: 02/22/25 08:18 Dose: 100 mg Documented By: CAT Hydroxyzine HCl (Hydroxyzine Hcl 50 Mg Tablet) 50 mg PO Q8H PRN PRN Reason: Anxiety Last Admin: 02/21/25 21:12 Dose: 50 mg Documented By: BENITO Thiamine HCl 200 mg/ Sodium (Chloride) 102 mls @ 204 mls/hr IV DAILY [facility] Last Admin: 02/22/25 08:21 Dose: 204 mls/hr Documented By: CAT Lactated Ringer's (Lr) 1,000 mls @ 80 mls/hr IVCONT .[id number] [facility] Last Admin: 02/21/25 21:12 Dose: 80 mls/hr Documented By: BENITO Magnesium Sulfate/Dextrose (Magnesium Sulfate/D5w) 1 gm in 100 mls @ 100 mls/hr IV ONCE ONE Stop: 02/22/25 09:08 Levalbuterol HCl (Levalbuterol Hcl 1.25 Mg/3 Ml Vial.Neb) 1.25 mg INHALE Q4H [facility] Last Admin: 02/22/25 07:54 Dose: 1.25 mg Documented By: ALISA Magnesium Hydroxide (Milk Of Magnesia 30 Ml Oral.Susp) 30 ml PO DAILY PRN PRN Reason: Constipation Melatonin (Melatonin 3 Mg Tablet) 6 mg PO BEDTIME PRN PRN Reason: Insomnia Pantoprazole Sodium (Pantoprazole Sodium 40 Mg/10 Ml Vial) 40 mg IVPUSH DAILY@0630 [facility] Last Admin: 02/22/25 05:58 Dose: 40 mg Documented By: BENITO Pharmacy Consult (Consult Rx Etoh Phenob Im/Po) 1 each MISCELLANE ONCE PRN; Protocol PRN Reason: Consult order Phenobarbital (Phenobarbital 15 Mg Tablet) 45 mg PO BID [facility] Stop: 02/22/25 21:01 Last Admin: 02/22/25 08:19 Dose: 45 mg Documented By: CAT Phenobarbital (Phenobarbital 30 Mg Tablet) 30 mg PO BID [facility] Stop: 02/24/25 21:01 Phenobarbital (Phenobarbital 15 Mg Tablet) 15 mg PO DAILY [facility] Stop: 02/26/25 09:01 Sodium Chloride (0.9 % Sodium Chloride Flush 3 Ml Syringe) 3 ml IVFLUSH QSHIFT [facility] Last Admin: 02/22/25 08:21 Dose: Not Given Documented By: CAT Non-Admin Reason: IV Running Labs 02/22/25 07:21 02/22/25 07:21 Labs: Laboratory Results - last 24 hr 02/21/25 02/22/25 14:39 07:21 MCV 91.9 MCH 31.2 MCHC 33.9 RDW 15.7 Plt Count 57 L MPV 10.8 Immature Gran % (Auto) 0.6 H Neut % (Auto) 78.2 H Lymph % (Auto) 14.6 L [place] % (Auto) 5.7 Eos % (Auto) 0.3 Baso % (Auto) 0.6 Lymph # (Auto) 0.5 L [place] # (Auto) 0.2 Eos # (Auto) 0.0 Baso # (Auto) 0.0 Abs Immat Gran (auto) 0.02 Absolute Neuts (auto) 2.5 Absolute Nucleated RBC 0.000 Nucleated RBC % (auto) 0.0 Anion Gap 13 11 L Estim Creat Clear Calc 97.2 123.9 Estimated GFR > 60 > 60 Random Glucose 133 H 87 Calcium 7.9 L 7.8 L Magnesium 1.5 L 1.3 L* Total Bilirubin 1.9 H AST 472 H ALT 110 H Alkaline Phosphatase 240 H Total Protein 5.5 L Albumin 2.8 L Assessment and Plan (1) Alcohol abuse: Status: Acute (2) Alcohol use disorder, severe, dependence: Status: Acute (3) Withdrawal symptoms, alcohol: Status: Acute (4) DVT (deep venous thrombosis): Status: Acute (5) Presence of IVC filter: Status: Acute (6) Martinez esophagus: Status: Acute (7) Pancytopenia: Status: Acute (8) Rhabdomyolysis: Status: Acute (9) Neuropathy: Status: Acute (10) Closed head injury: Status: Acute (11) COPD (chronic obstructive pulmonary disease): Status: Acute (12) Falls: Status: Acute Plan 64-year-old male, with a background history of active smoking, COPD, prior DVT s/p IVC filter on apixaban, peripheral neuropathy, recent admission for upper GI bleeding 2/2 EtOH, active ETOH abuse with multiple presentations and admissions for withdrawal, multiple falls, BIBA to hospital with complaints of a fall and ETOH withdrawal after being found unresponsive by his visiting BHN., admitted with ETOH abuse, withdrawal. EtOH Abuse ETOH intoxication EtOH Withdrawal Multiple falls Patient may require section 35 due to frequent presentations and admissions for EtOH abuse/ w/d. W/U in progress PLAN - CIWA - Phenobarbital withdrawal protocol - Thiamine IV 400mg x1 completed - Thiamine 200mg IV OD continue - Folic acid - Addiction medicine consultation - post stabilization, assess the patient's capacity; multiple presentations for ETOH intoxication, withdrawal and persistence abuse, multiple falls - Addiction medicine consulted Traumatic rhabdomyolysis Multiple falls Elevated CPK 1000 - minimal improvement with hydration improving to 700 today Continue IVF Daily CPK Recent upper GI bleed Martinez's esophagus GERD Endorses dark brown stool, no melena or hematochezia Has not been compliant with medications in the outpatient setting, nor with ETOH abstinence PLAN - pantoprazole 40 mg OD IV - holding apixaban and VTE chemoprophylaxis Hypomagnesemia Hypokalemia Failure to thrive in adult PLAN - K >4 - Mg >2 - repeat BMP - dietitian consultation Alcoholic hepatitis Elevated transaminases Evaluation for hepatic dysfunction ongoing US liver not ordered Maddrey negligible Continue to monitor History of DVT History of IVC filter placement On Anticoagulation PLAN - holding apixaban and VTE prophylaxis - IVC filter in place - SCDs bilaterally Pancytopenia - Thrombocytopenia Etiologically possibly 2/2 bone marrow suppression in setting of ETOH abuse Other possible pathology could be superimposed such as MDS PLAN - outpatient evaluation with Hematology/Oncology COPD Smoker Smoking cessation counseling provided Patient refuses nicotine patch or other chemical supports QUALITY METRICS - VTE: SCDs - hold chemo prophylaxis - CODE STATUS: Full code - DIET: Regular diet Total time managing care of this patient today: 45 minutes. Quality Stroke Does the patient have a stroke diagnosis?: No VTE Prior VTE?: Yes VTE Risk Level:: Medical - moderate - high VTE Device Contraindication: N/A - Device Ordered VTE Drug Contraindication: Treatment Not Tolerated
--- NOTE | 2025-02-22 10:45 | PC.NURSE ---
Addendum entered by Ammy Phillip RN 02/22/25 17:16: Pt's O2 drops to low 80's, high 70's on room air while sleeping. 2L oxymask encouraged when he sleeps. Heart rate is WNL at rest, still tachy in 120's with activity today. Original Note: Pt alert and oriented. Not scoring significantly on CIWA scale. Pt is open to addiction recovery. He has asked about short term rehab to help him regain some physical strength. He is using a walker with one assist to the toilet here. Gabapentin is starting to help his neuropathy.
[2025-02-22] MEDS: Potassium Chloride Packet 20 MEQ PACKET 40 MEQ PO (12:18)
[2025-02-22] MEDS: Lactated Ringers 1,000 ML 80 ML IVCONT (12:18)
--- NOTE | 2025-02-22 16:22 | MHC.RECOVRN ---
Pt seen in f/u . Pt sitting in bed, eating meal and reports feeling much better - denied any feelings of withdrawal. Pt future-focused, stating he wants to go for physical rehabilitation followed by inpatient AUD treatment. Discussed ELY - Pt declined ELY initiation and declined outpatient treatment appointment for tx of his AUD. Pt denied questions/concerns and was allowed to eat.
[2025-02-23] VITALS (14 sets, daily range): BP systolic 100–128; BP diastolic 53–67; PULSE 84–112; RESP 16–20; TEMP 36.3–37.7; O2SAT 92–99
[2025-02-23] MEDS: 0.9 % Sodium Chloride Flush 3 ML SYRINGE IVFLUSH ×4 (01:06→20:58)
[2025-02-23 06:44] LABS: MANUAL DIFF FLAG NO
[2025-02-23 06:52] LABS: Hematocrit 28.2 % (42.0-52.0); Hemoglobin 9.4 g/dl (14.0-18.0); Imm Gran Abs Auto 0.01 X10*3/uL (0.00-0.03); Imm Gran Pct Auto 0.3 % (0.0-0.4); Lymphocytes Absolute Auto 0.6 X10*3/uL (1.2-4.9); Mean Corpuscular HGB Conc 33.3 g/dl (31.0-36.0); Mean Corpuscular Hemoglobin 31.0 pg (27.0-33.0); Mean Corpuscular Volume 93.1 fL (80.0-98.0); NRBC Abs Auto 0.000 X10*3/uL (0.0-0.012); NRBC Pct Auto 0.0 /100WBC (0.0-0.2); Red Blood Count 3.03 X10*6/uL (4.60-5.80); White Blood Count 3.1 X10*3/uL (4.8-10.8)
[2025-02-23 06:56] LABS: Platelet Count 63 X10*3/uL (160-400)
[2025-02-23 07:23] LABS: Alanine Aminotransferase 100 U/L (0-40); Albumin Level 2.8 g/dL (3.5-5.0); Alkaline Phosphatase 233 U/L (39-117); Anion Gap 12 (12-20); Aspartate Amino Transferase 275 U/L (5-37); Blood Urea Nitrogen 5 mg/dL (9-16); Calcium 7.6 mg/dL (8.4-10.2); Carbon Dioxide 28 mmol/L (22-29); Chloride 99 mmol/L (96-108); Creatinine Clr Calc Pharmacy 114.9; Estimated Glomerular Filt Rate > 60; Magnesium 1.2 mg/dL (1.6-2.6); Potassium 2.9 mmol/L (3.3-5.1); Sodium 136 mmol/L (135-145); Total Protein 5.5 g/dL (6.5-8.0)
[2025-02-23] MEDS: Thiamine HCL 200 MG in 0.9 % Sodium Chloride 100 ML 204 MG IV (08:24)
[2025-02-23] MEDS: Potassium Chloride Packet 20 MEQ PACKET 40 MEQ PO (08:25)
[2025-02-23] MEDS: Fluticasone/Umeclidinium/Vilanterol 100/62.5/25 BLST.W.DEV 1 PUFF INHALE (08:39)
--- NOTE | 2025-02-23 12:46 | P.PNIM_ITS ---
Subjective Subjective Date of Service: 02/23/25 Interval History: Patient reports that he feels slightly better than yesterday Potassium very low, magnesium very low He is eating and drinking well Using the restroom well No other complaints or issues to report Review of Systems Review of Systems: Yes all other systems are reviewed and are negative Physical Exam 2 Exam: Exam: General: A&O x3, oriented to time place person and situation, comfortable, no pain. Disheveled. Multiple facial ecchymosis Cardiac: S1, S2 auscultated with no S3/4, no MRG. Well perfused. Respiratory: Decreased inspiratory and expiratory breath sounds bilaterally, with wheezing auscultated throughout all lung zones, primarily an upper zones, without hypoxia or rales or crepitations. No peripheral or central cyanosis GI/ : Mild tenderness to palpation of the left lower quadrant, without rebound guarding ecchymosis. MSK: Normal ambulation without pain at bony prominences or musculature. Generalized muscular atrophy in upper and lower extremities and temporal muscle wasting. Multiple bruises identified around the face and extremities. multiple skin excoriations, scabs and small wounds. Neurological: Normal neurological examination on overview, without obvious CN II-XII abnormalities. Vital Signs: Vital Signs: Last Vital Signs Temp 98 F 02/23/25 11:41 Pulse 99 02/23/25 11:41 Resp 16 02/23/25 11:41 BP 100/56 L 02/23/25 11:41 Pulse Ox 97 02/23/25 11:41 O2 Del Method Oxymask 02/23/25 11:41 O2 Flow Rate 2 02/23/25 11:41 Oxygen Flow Rate 2 02/20/25 10:27 BMI result Body Mass Index 19.5 Objective Data Active Medications Acetaminophen (Acetaminophen 325 Mg Tablet) 650 mg PO Q6H PRN PRN Reason: Pain, Mild 1-3,fever,headache Last Admin: 02/23/25 05:16 Dose: 650 mg Documented By: TARIQ Benzonatate (Benzonatate 100 Mg Capsule) 100 mg PO TID PRN PRN Reason: Cough Last Admin: 02/23/25 08:42 Dose: 100 mg Documented By: ED Calcium Carbonate (Calcium Carbonate 750 Mg Tab.Chew) 750 mg PO Q4H PRN PRN Reason: Heartburn Fluticasone/Umeclidinium/Vilanterol (Fluticasone/Umeclidinium/Vilanterol 100/62.5/25 Blst.W.Dev) 1 puff INHALE RDAILY [facility] Last Admin: 02/23/25 08:39 Dose: 1 puff Documented By: MARK Folic Acid (Folic Acid 1 Mg Tablet) 1 mg PO DAILY [facility] Last Admin: 02/23/25 08:31 Dose: 1 mg Documented By: ED Gabapentin (Gabapentin 100 Mg Capsule) 100 mg PO TID [facility] Last Admin: 02/23/25 08:31 Dose: 100 mg Documented By: ED Hydroxyzine HCl (Hydroxyzine Hcl 50 Mg Tablet) 50 mg PO Q8H PRN PRN Reason: Anxiety Last Admin: 02/22/25 15:07 Dose: 50 mg Documented By: CAT Thiamine HCl 200 mg/ Sodium (Chloride) 102 mls @ 204 mls/hr IV DAILY [facility] Last Infusion: 02/23/25 09:00 Dose: Infused Documented By: ED Levalbuterol HCl (Levalbuterol Hcl 1.25 Mg/3 Ml Vial.Neb) 1.25 mg INHALE Q4H [facility] Last Admin: 02/23/25 08:39 Dose: 1.25 mg Documented By: MARK Magnesium Hydroxide (Milk Of Magnesia 30 Ml Oral.Susp) 30 ml PO DAILY PRN PRN Reason: Constipation Magnesium Oxide (Magnesium Oxide 400 Mg Tablet) 400 mg PO DAILY [facility] Last Admin: 02/23/25 08:31 Dose: 400 mg Documented By: ED Melatonin (Melatonin 3 Mg Tablet) 6 mg PO BEDTIME PRN PRN Reason: Insomnia Last Admin: 02/22/25 21:16 Dose: 6 mg Documented By: GERARD Pantoprazole Sodium (Pantoprazole Sodium 40 Mg/10 Ml Vial) 40 mg IVPUSH DAILY@0630 [facility] Last Admin: 02/23/25 05:15 Dose: 40 mg Documented By: TARIQ Pharmacy Consult (Consult Rx Etoh Phenob Im/Po) 1 each MISCELLANE ONCE PRN; Protocol PRN Reason: Consult order Phenobarbital (Phenobarbital 30 Mg Tablet) 30 mg PO BID [facility] Stop: 02/24/25 21:01 Last Admin: 02/23/25 08:31 Dose: 30 mg Documented By: ED Phenobarbital (Phenobarbital 15 Mg Tablet) 15 mg PO DAILY [facility] Stop: 02/26/25 09:01 Sodium Chloride (0.9 % Sodium Chloride Flush 3 Ml Syringe) 3 ml IVFLUSH QSHIFT [facility] Last Admin: 02/23/25 08:25 Dose: 3 ml Documented By: ED Labs 02/23/25 06:25 02/23/25 06:25 Labs: Laboratory Results - last 24 hr 02/23/25 06:25 MCV 93.1 MCH 31.0 MCHC 33.3 RDW 15.9 Plt Count 63 L MPV 10.6 Immature Gran % (Auto) 0.3 Neut % (Auto) 69.6 Lymph % (Auto) 20.4 [place] % (Auto) 8.1 Eos % (Auto) 1.3 Baso % (Auto) 0.3 Lymph # (Auto) 0.6 L [place] # (Auto) 0.3 Eos # (Auto) 0.0 Baso # (Auto) 0.0 Abs Immat Gran (auto) 0.01 Absolute Neuts (auto) 2.2 Absolute Nucleated RBC 0.000 Nucleated RBC % (auto) 0.0 Anion Gap 12 Estim Creat Clear Calc 114.9 Estimated GFR > 60 Random Glucose 115 Calcium 7.6 L Magnesium 1.2 L* Total Bilirubin 1.1 H AST 275 H ALT 100 H Alkaline Phosphatase 233 H Total Protein 5.5 L Albumin 2.8 L Assessment and Plan (1) Alcohol abuse: Status: Acute (2) Alcohol use disorder, severe, dependence: Status: Acute (3) Withdrawal symptoms, alcohol: Status: Acute (4) DVT (deep venous thrombosis): Status: Acute (5) Martinez esophagus: Status: Acute (6) Pancytopenia: Status: Acute (7) Rhabdomyolysis: Status: Acute (8) COPD (chronic obstructive pulmonary disease): Status: Acute (9) Neuropathy: Status: Acute (10) Falls: Status: Acute (11) Smoker: Status: Acute Plan 64-year-old male, with a background history of active smoking, COPD, prior DVT s/p IVC filter on apixaban, peripheral neuropathy, recent admission for upper GI bleeding 2/2 EtOH, active ETOH abuse with multiple presentations and admissions for withdrawal, multiple falls, BIBA to hospital with complaints of a fall and ETOH withdrawal after being found unresponsive by his visiting BHN., admitted with ETOH abuse, withdrawal. EtOH Abuse ETOH intoxication EtOH Withdrawal Multiple falls Patient may require section 35 due to frequent presentations and admissions for EtOH abuse/ w/d. W/U in progress PLAN - CIWA - Phenobarbital withdrawal protocol - Thiamine IV 400mg x1 completed - Thiamine 200mg IV OD continue - Folic acid - Addiction medicine consultation - post stabilization, assess the patient's capacity; multiple presentations for ETOH intoxication, withdrawal and persistence abuse, multiple falls - Addiction medicine consulted Traumatic rhabdomyolysis Multiple falls Elevated CPK 1000 - minimal improvement with hydration improving to 700 today Continue IVF Daily CPK Recent upper GI bleed Martinez's esophagus GERD Endorses dark brown stool, no melena or hematochezia Has not been compliant with medications in the outpatient setting, nor with ETOH abstinence PLAN - pantoprazole 40 mg OD IV - holding apixaban and VTE chemoprophylaxis Hypomagnesemia Hypokalemia Failure to thrive in adult PLAN - K >4 - Mg >2 - repeat BMP - dietitian consultation Alcoholic hepatitis Elevated transaminases Evaluation for hepatic dysfunction ongoing US liver not ordered Maddrey negligible Continue to monitor History of DVT History of IVC filter placement On Anticoagulation PLAN - holding apixaban and VTE prophylaxis - IVC filter in place - SCDs bilaterally Pancytopenia - Thrombocytopenia Etiologically possibly 2/2 bone marrow suppression in setting of ETOH abuse Other possible pathology could be superimposed such as MDS PLAN - outpatient evaluation with Hematology/Oncology COPD Smoker Smoking cessation counseling provided Patient refuses nicotine patch or other chemical supports QUALITY METRICS - VTE: SCDs - hold chemo prophylaxis - CODE STATUS: Full code - DIET: Regular diet Total time managing care of this patient today: 35 minutes. Quality Stroke Does the patient have a stroke diagnosis?: No VTE Prior VTE?: Yes VTE Risk Level:: Medical - moderate - high VTE Device Contraindication: N/A - Device Ordered VTE Drug Contraindication: Treatment Not Tolerated
[2025-02-23 14:52] LABS: Blood Urea Nitrogen 5 mg/dL (9-16); Calcium 8.0 mg/dL (8.4-10.2); Creatinine Clr Calc Pharmacy 101.9; Estimated Glomerular Filt Rate > 60; Magnesium 1.5 mg/dL (1.6-2.6)
[2025-02-23 15:00] LABS: Anion Gap 13 (12-20); Carbon Dioxide 24 mmol/L (22-29); Chloride 101 mmol/L (96-108); Potassium 4.1 mmol/L (3.3-5.1); Sodium 134 mmol/L (135-145)
--- NOTE | 2025-02-23 15:03 | MHC.CM.PN ---
CM RECEIVED A CALL FROM [facility] [employer], JENNA [phone] SHE REPORTS SHE WILL COME IN TODAY TO SPEAK WITH PT SHE IS AWARE STR IS RECOMMENDED AND WILL ENCOURAGE HIM
[2025-02-24] VITALS (12 sets, daily range): BP systolic 99–134; BP diastolic 54–76; PULSE 69–101; RESP 16–20; TEMP 36.1–36.9; O2SAT 92–97
--- NOTE | 2025-02-24 01:05 | PC.NURSE ---
desat to 73%, was exerting himelf using urinal, WOB appears normal, patient calm, immediately increased to 100% RA, expiratory wheezes auscultated bilaterally, xopenex now being administered
--- NOTE | 2025-02-24 01:59 | PC.NURSE ---
desat to mid 70s SpO2 while sleeping, placed on 2L NC, now maintains >92%
[2025-02-24 06:11] LABS: MANUAL DIFF FLAG NO
[2025-02-24 06:19] LABS: Hematocrit 29.2 % (42.0-52.0); Hemoglobin 9.7 g/dl (14.0-18.0); Imm Gran Abs Auto 0.01 X10*3/uL (0.00-0.03); Imm Gran Pct Auto 0.3 % (0.0-0.4); Lymphocytes Absolute Auto 0.6 X10*3/uL (1.2-4.9); Mean Corpuscular HGB Conc 33.2 g/dl (31.0-36.0); Mean Corpuscular Hemoglobin 30.9 pg (27.0-33.0); Mean Corpuscular Volume 93.0 fL (80.0-98.0); NRBC Abs Auto 0.000 X10*3/uL (0.0-0.012); NRBC Pct Auto 0.0 /100WBC (0.0-0.2); Red Blood Count 3.14 X10*6/uL (4.60-5.80); White Blood Count 3.0 X10*3/uL (4.8-10.8)
[2025-02-24 06:21] LABS: Platelet Count 82 X10*3/uL (160-400)
[2025-02-24 06:51] LABS: Alanine Aminotransferase 77 U/L (0-40); Albumin Level 3.0 g/dL (3.5-5.0); Alkaline Phosphatase 232 U/L (39-117); Anion Gap 12 (12-20); Aspartate Amino Transferase 138 U/L (5-37); Blood Urea Nitrogen 7 mg/dL (9-16); Calcium 8.1 mg/dL (8.4-10.2); Carbon Dioxide 27 mmol/L (22-29); Chloride 103 mmol/L (96-108); Creatinine Clr Calc Pharmacy 110.9; Estimated Glomerular Filt Rate > 60; Magnesium 1.4 mg/dL (1.6-2.6); Potassium 3.7 mmol/L (3.3-5.1); Sodium 138 mmol/L (135-145); Total Protein 5.8 g/dL (6.5-8.0)
[2025-02-24] MEDS: Magnesium Sulfate/H2O 2 GM/50 ML PIGGYBACK IV (07:14)
[2025-02-24] MEDS: Fluticasone/Umeclidinium/Vilanterol 100/62.5/25 BLST.W.DEV 1 PUFF INHALE (08:12)
[2025-02-24] MEDS: Thiamine HCL 200 MG in 0.9 % Sodium Chloride 100 ML 204 MG IV (09:04)
[2025-02-24] MEDS: 0.9 % Sodium Chloride Flush 3 ML SYRINGE IVFLUSH ×2 (15:24→20:17)
--- NOTE | 2025-02-24 16:23 | HO.PM.IMPN ---
Subjective Subjective Date of Service: 02/24/25 Interval History: Informs me he still feels like ?alejandro Says he feels like he was run over by a car Patient offers no reports of overt improvement Complaining of his cough, and his inability to smoke. Chest x-ray ordered, revealing no acute intrapulmonary process Likely 2/2 COPD and mucous clearance Review of Systems Review of Systems: Yes all other systems are reviewed and are negative Physical Exam Exam: Exam: General: A&O x3, oriented to time place person and situation, comfortable, no pain. Disheveled. Multiple facial ecchymosis Cardiac: S1, S2 auscultated with no S3/4, no MRG. Well perfused. Respiratory: Decreased inspiratory and expiratory breath sounds bilaterally, with wheezing auscultated throughout all lung zones, primarily an upper zones, without hypoxia or rales or crepitations. No peripheral or central cyanosis GI/ : Mild tenderness to palpation of the left lower quadrant, without rebound guarding ecchymosis. MSK: Normal ambulation without pain at bony prominences or musculature. Generalized muscular atrophy in upper and lower extremities and temporal muscle wasting. Multiple bruises identified around the face and extremities. multiple skin excoriations, scabs and small wounds. Neurological: Normal neurological examination on overview, without obvious CN II-XII abnormalities. Vital Signs: Vital Signs: Last Vital Signs Temp 97.8 F 02/24/25 15:34 Pulse 87 02/24/25 15:34 Resp 17 02/24/25 15:34 BP 102/62 02/24/25 15:34 Pulse Ox 94 02/24/25 15:34 O2 Del Method Room Air 02/24/25 15:34 O2 Flow Rate 2 02/24/25 08:00 Oxygen Flow Rate 2 02/20/25 10:27 BMI result Body Mass Index 19.5 Objective Data Active Medications Acetaminophen (Acetaminophen 325 Mg Tablet) 650 mg PO Q6H PRN PRN Reason: Pain, Mild 1-3,fever,headache Last Admin: 02/24/25 09:09 Dose: 650 mg Documented By: TIFFANY Benzonatate (Benzonatate 100 Mg Capsule) 100 mg PO TID PRN PRN Reason: Cough Last Admin: 02/24/25 09:10 Dose: 100 mg Documented By: TIFFANY Calcium Carbonate (Calcium Carbonate 750 Mg Tab.Chew) 750 mg PO Q4H PRN PRN Reason: Heartburn Fluticasone/Umeclidinium/Vilanterol (Fluticasone/Umeclidinium/Vilanterol 100/62.07/23 Blst.W.Dev) 1 puff INHALE RDAILY [facility] Last Admin: 02/24/25 08:12 Dose: 1 puff Documented By: DANISH Folic Acid (Folic Acid 1 Mg Tablet) 1 mg PO DAILY [facility] Last Admin: 02/24/25 09:03 Dose: 1 mg Documented By: TIFFANY Gabapentin (Gabapentin 100 Mg Capsule) 100 mg PO TID [facility] Last Admin: 02/24/25 15:23 Dose: 100 mg Documented By: TIFFANY Hydroxyzine HCl (Hydroxyzine Hcl 50 Mg Tablet) 50 mg PO Q8H PRN PRN Reason: Anxiety Last Admin: 02/23/25 22:32 Dose: 50 mg Documented By: KELSEY Thiamine HCl 200 mg/ Sodium (Chloride) 102 mls @ 204 mls/hr IV DAILY [facility] Last Infusion: 02/24/25 09:34 Dose: Infused Documented By: TIFFANY Levalbuterol HCl (Levalbuterol Hcl 1.25 Mg/3 Ml Vial.Neb) 1.25 mg INHALE Q4H [facility] Last Admin: 02/24/25 11:22 Dose: 1.25 mg Documented By: DANISH Magnesium Hydroxide (Milk Of Magnesia 30 Ml Oral.Susp) 30 ml PO DAILY PRN PRN Reason: Constipation Magnesium Oxide (Magnesium Oxide 400 Mg Tablet) 400 mg PO DAILY [facility] Last Admin: 02/24/25 09:03 Dose: 400 mg Documented By: TIFFANY Melatonin (Melatonin 3 Mg Tablet) 6 mg PO BEDTIME PRN PRN Reason: Insomnia Last Admin: 02/23/25 22:28 Dose: 6 mg Documented By: KELSEY Pharmacy Consult (Consult Rx Etoh Phenob Im/Po) 1 each MISCELLANE ONCE PRN; Protocol PRN Reason: Consult order Phenobarbital (Phenobarbital 30 Mg Tablet) 30 mg PO BID [facility] Stop: 02/24/25 21:01 Last Admin: 02/24/25 09:03 Dose: 30 mg Documented By: TIFFANY Phenobarbital (Phenobarbital 15 Mg Tablet) 15 mg PO DAILY [facility] Stop: 02/26/25 09:01 Sodium Chloride (0.9 % Sodium Chloride Flush 3 Ml Syringe) 3 ml IVFLUSH QSHIFT [facility] Last Admin: 02/24/25 15:24 Dose: 3 ml Documented By: TIFFANY Labs 02/24/25 05:48 02/24/25 05:48 Labs: Laboratory Results - last 24 hr 02/24/25 05:48 MCV 93.0 MCH 30.9 MCHC 33.2 RDW 16.1 H Plt Count 82 L D MPV 10.1 Immature Gran % (Auto) 0.3 Neut % (Auto) 65.6 Lymph % (Auto) 19.9 L [place]olls % (Auto) 11.1 H Eos % (Auto) 2.4 Baso % (Auto) 0.7 Lymph # (Auto) 0.6 L [place]oll[place] # (Auto) 0.3 Eos # (Auto) 0.1 Baso # (Auto) 0.0 Abs Immat Gran (auto) 0.01 Absolute Neuts (auto) 1.9 L Absolute Nucleated RBC 0.000 Nucleated RBC % (auto) 0.0 Anion Gap 12 Estim Creat Clear Calc 110.9 Estimated GFR > 60 Random Glucose 90 Calcium 8.1 L Magnesium 1.4 L* Total Bilirubin 0.9 AST 138 H ALT 77 H Alkaline Phosphatase 232 H Total Protein 5.8 L Albumin 3.0 L Assessment and Plan (1) Alcohol abuse: Status: Acute (2) Alcohol use disorder, severe, dependence: Status: Acute (3) Withdrawal symptoms, alcohol: Status: Acute (4) DVT (deep venous thrombosis): Status: Acute (5) Presence of IVC filter: Status: Acute (6) Martinez esophagus: Status: Acute (7) Pancytopenia: Status: Acute (8) Rhabdomyolysis: Status: Acute (9) Closed head injury: Status: Acute (10) Neuropathy: Status: Acute (11) COPD (chronic obstructive pulmonary disease): Status: Acute (12) Falls: Status: Acute (13) Smoker: Status: Acute Plan 64-year-old male, with a background history of active smoking, COPD, prior DVT s/p IVC filter on apixaban, peripheral neuropathy, recent admission for upper GI bleeding 2/2 EtOH, active ETOH abuse with multiple presentations and admissions for withdrawal, multiple falls, BIBA to hospital with complaints of a fall and ETOH withdrawal after being found unresponsive by his visiting BHN., admitted with ETOH abuse, withdrawal. EtOH Abuse ETOH intoxication EtOH Withdrawal Multiple falls Patient may require section 35 due to frequent presentations and admissions for EtOH abuse/ w/d. W/U in progress PLAN - CIWA - Phenobarbital withdrawal protocol - Thiamine IV 400mg x1 completed - Thiamine 200mg IV OD continue - Folic acid - Addiction medicine consultation - post stabilization, assess the patient's capacity; multiple presentations for ETOH intoxication, withdrawal and persistence abuse, multiple falls - Addiction medicine consulted Traumatic rhabdomyolysis Multiple falls Elevated CPK 1000 - minimal improvement with hydration improving to 700 today Continue IVF Daily CPK Recent upper GI bleed Martinez's esophagus GERD Endorses dark brown stool, no melena or hematochezia Has not been compliant with medications in the outpatient setting, nor with ETOH abstinence PLAN - pantoprazole 40 mg OD IV - holding apixaban and VTE chemoprophylaxis Hypomagnesemia Hypokalemia Failure to thrive in adult PLAN - K >4 - Mg >2 - repeat BMP - dietitian consultation Alcoholic hepatitis Elevated transaminases Evaluation for hepatic dysfunction ongoing US liver not ordered Maddrey negligible Continue to monitor History of DVT History of IVC filter placement On Anticoagulation PLAN - holding apixaban and VTE prophylaxis - IVC filter in place - SCDs bilaterally Pancytopenia - Thrombocytopenia Etiologically possibly 2/2 bone marrow suppression in setting of ETOH abuse Other possible pathology could be superimposed such as MDS PLAN - outpatient evaluation with Hematology/Oncology COPD Smoker Smoking cessation counseling provided Patient refuses nicotine patch or other chemical supports QUALITY METRICS - VTE: SCDs - hold chemo prophylaxis - CODE STATUS: Full code - DIET: Regular diet Total time managing care of this patient today: 45 minutes. Quality Stroke Does the patient have a stroke diagnosis?: No VTE Prior VTE?: Yes VTE Risk Level:: Medical - moderate - high VTE Device Contraindication: N/A - Device Ordered VTE Drug Contraindication: Treatment Not Tolerated
[2025-02-25] VITALS (10 sets, daily range): BP systolic 99–115; BP diastolic 53–61; PULSE 86–99; RESP 15–20; TEMP 36.3–37.1; O2SAT 91–94
[2025-02-25 07:33] LABS: MANUAL DIFF FLAG NO
[2025-02-25 07:54] LABS: Hemoglobin 10.3 g/dl (14.0-18.0); NRBC Abs Auto 0.000 X10*3/uL (0.0-0.012); NRBC Pct Auto 0.0 /100WBC (0.0-0.2); PLT CLUMP 1; SCAN SMEAR FLAG 1
[2025-02-25 07:56] LABS: Hematocrit 31.2 % (42.0-52.0); Imm Gran Abs Auto 0.03 X10*3/uL (0.00-0.03); Imm Gran Pct Auto 0.8 % (0.0-0.4); Lymphocytes Absolute Auto 0.7 X10*3/uL (1.2-4.9); Mean Corpuscular HGB Conc 33.0 g/dl (31.0-36.0); Mean Corpuscular Hemoglobin 31.2 pg (27.0-33.0); Mean Corpuscular Volume 94.5 fL (80.0-98.0); Red Blood Count 3.30 X10*6/uL (4.60-5.80)
[2025-02-25] MEDS: Fluticasone/Umeclidinium/Vilanterol 100/62.5/25 BLST.W.DEV 1 PUFF INHALE (08:03)
[2025-02-25 08:05] LABS: Platelet Count 133 X10*3/uL (160-400); White Blood Count 3.8 X10*3/uL (4.8-10.8)
[2025-02-25 08:13] LABS: Alanine Aminotransferase 66 U/L (0-40); Albumin Level 3.3 g/dL (3.5-5.0); Alkaline Phosphatase 232 U/L (39-117); Aspartate Amino Transferase 91 U/L (5-37); Blood Urea Nitrogen 8 mg/dL (9-16); Calcium 8.6 mg/dL (8.4-10.2); Creatinine Clr Calc Pharmacy 94.3; Estimated Glomerular Filt Rate > 60; Magnesium 1.5 mg/dL (1.6-2.6); Total Protein 6.6 g/dL (6.5-8.0)
[2025-02-25 08:26] LABS: Anion Gap 13 (12-20); Carbon Dioxide 27 mmol/L (22-29); Chloride 97 mmol/L (96-108); Potassium 4.7 mmol/L (3.3-5.1); Sodium 132 mmol/L (135-145)
[2025-02-25] MEDS: PHENobarbital 15 MG TABLET PO (08:33)
[2025-02-25] MEDS: Thiamine HCL 200 MG in 0.9 % Sodium Chloride 100 ML 204 MG IV (08:35)
[2025-02-25] MEDS: 0.9 % Sodium Chloride Flush 3 ML SYRINGE IVFLUSH ×3 (08:35→21:02)
[2025-02-25] MEDS: Albuterol Sulfate 90 MCG 8 GM INHALER 2 PUFF INHALE ×3 (11:17→20:05)
--- NOTE | 2025-02-25 14:14 | P.PNIM_ITS ---
Subjective Subjective Date of Service: 02/25/25 Interval History: Patient reports suffering with muscle aches still Intermittently coughing, without phlegm production, no fevers, no chills Review of Systems Review of Systems: Yes all other systems are reviewed and are negative Physical Exam 2 Exam: Exam: General: A&O x3, oriented to time place person and situation, comfortable, no pain. Disheveled. Multiple facial ecchymosis Cardiac: S1, S2 auscultated with no S3/4, no MRG. Well perfused. Respiratory: Decreased inspiratory and expiratory breath sounds bilaterally, with wheezing auscultated throughout all lung zones, primarily an upper zones, without hypoxia or rales or crepitations. No peripheral or central cyanosis GI/ : Mild tenderness to palpation of the left lower quadrant, without rebound guarding ecchymosis. MSK: Normal ambulation without pain at bony prominences or musculature. Generalized muscular atrophy in upper and lower extremities and temporal muscle wasting. Multiple bruises identified around the face and extremities. multiple skin excoriations, scabs and small wounds. Neurological: Normal neurological examination on overview, without obvious CN II-XII abnormalities. Vital Signs: Vital Signs: Last Vital Signs Temp 98.6 F 02/25/25 07:51 Pulse 99 02/25/25 11:23 Resp 18 02/25/25 11:23 BP 102/58 L 02/25/25 07:51 Pulse Ox 92 02/25/25 07:51 O2 Del Method Nasal Cannula 02/25/25 07:51 O2 Flow Rate 2 02/25/25 07:51 Oxygen Flow Rate 2 02/20/25 10:27 BMI result Body Mass Index 19.5 Objective Data Active Medications Acetaminophen (Acetaminophen 325 Mg Tablet) 650 mg PO Q6H PRN PRN Reason: Pain, Mild 1-3,fever,headache Last Admin: 02/25/25 08:33 Dose: 650 mg Documented By: PETE Albuterol Sulfate (Albuterol Sulfate 90 Mcg 8 Gm Inhaler) 2 puff INHALE RQ4H WHILE AWAKE [facility] Last Admin: 02/25/25 11:17 Dose: 2 puff Documented By: DANISH Benzonatate (Benzonatate 100 Mg Capsule) 100 mg PO TID PRN PRN Reason: Cough Last Admin: 02/25/25 08:33 Dose: 100 mg Documented By: PETE Calcium Carbonate (Calcium Carbonate 750 Mg Tab.Chew) 750 mg PO Q4H PRN PRN Reason: Heartburn Fluticasone/Umeclidinium/Vilanterol (Fluticasone/Umeclidinium/Vilanterol 100/62.07/23 Blst.W.Dev) 1 puff INHALE RDAILY [facility] Last Admin: 02/25/25 08:03 Dose: 1 puff Documented By: DANISH Folic Acid (Folic Acid 1 Mg Tablet) 1 mg PO DAILY [facility] Last Admin: 02/25/25 08:34 Dose: 1 mg Documented By: PETE Gabapentin (Gabapentin 100 Mg Capsule) 100 mg PO TID [facility] Last Admin: 02/25/25 13:57 Dose: 100 mg Documented By: PETE Hydroxyzine HCl (Hydroxyzine Hcl 50 Mg Tablet) 50 mg PO Q8H PRN PRN Reason: Anxiety Last Admin: 02/25/25 08:35 Dose: 50 mg Documented By: PETE Thiamine HCl 200 mg/ Sodium (Chloride) 102 mls @ 204 mls/hr IV DAILY [facility] Last Infusion: 02/25/25 09:22 Dose: Infused Documented By: PETE Magnesium Hydroxide (Milk Of Magnesia 30 Ml Oral.Susp) 30 ml PO DAILY PRN PRN Reason: Constipation Magnesium Oxide (Magnesium Oxide 400 Mg Tablet) 400 mg PO DAILY [facility] Last Admin: 02/25/25 08:33 Dose: 400 mg Documented By: PETE Melatonin (Melatonin 3 Mg Tablet) 6 mg PO BEDTIME PRN PRN Reason: Insomnia Last Admin: 02/24/25 22:55 Dose: 6 mg Documented By: KELSEY Pharmacy Consult (Consult Rx Etoh Phenob Im/Po) 1 each MISCELLANE ONCE PRN; Protocol PRN Reason: Consult order Phenobarbital (Phenobarbital 15 Mg Tablet) 15 mg PO DAILY [facility] Stop: 02/26/25 09:01 Last Admin: 02/25/25 08:33 Dose: 15 mg Documented By: PETE Prednisone (Prednisone 20 Mg Tablet) 40 mg PO DAILY [facility] Last Admin: 02/25/25 13:57 Dose: 40 mg Documented By: PETE Sodium Chloride (0.9 % Sodium Chloride Flush 3 Ml Syringe) 3 ml IVFLUSH QSHIFT [facility] Last Admin: 02/25/25 08:35 Dose: 3 ml Documented By: PETE Labs 02/25/25 07:11 02/25/25 07:11 Labs: Laboratory Results - last 24 hr 02/25/25 07:11 MCV 94.5 MCH 31.2 MCHC 33.0 RDW 16.4 H Plt Count 133 L D MPV 9.6 Immature Gran % (Auto) 0.8 H Neut % (Auto) 61.3 Lymph % (Auto) 18.4 L Sunflower % (Auto) 17.1 H Eos % (Auto) 1.6 Baso % (Auto) 0.8 Lymph # (Auto) 0.7 L Sunflower # (Auto) 0.7 Eos # (Auto) 0.1 Baso # (Auto) 0.0 Abs Immat Gran (auto) 0.03 Absolute Neuts (auto) 2.3 Absolute Nucleated RBC 0.000 Nucleated RBC % (auto) 0.0 Anion Gap 13 Estim Creat Clear Calc 94.3 Estimated GFR > 60 Random Glucose 97 Calcium 8.6 D Magnesium 1.5 L Total Bilirubin 0.8 AST 91 H ALT 66 H Alkaline Phosphatase 232 H Total Creatine Kinase 146 Total Protein 6.6 Albumin 3.3 L Assessment and Plan (1) Alcohol use disorder, severe, dependence: Status: Acute (2) Alcohol abuse: Status: Acute (3) Withdrawal symptoms, alcohol: Status: Acute (4) Presence of IVC filter: Status: Acute (5) DVT (deep venous thrombosis): Status: Acute (6) Rhabdomyolysis: Status: Acute (7) Neuropathy: Status: Acute (8) COPD (chronic obstructive pulmonary disease): Status: Acute (9) Falls: Status: Acute (10) Pancytopenia: Status: Acute (11) Martinez esophagus: Status: Acute Plan 64-year-old male, with a background history of active smoking, COPD, prior DVT s/p IVC filter on apixaban, peripheral neuropathy, recent admission for upper GI bleeding 2/2 EtOH, active ETOH abuse with multiple presentations and admissions for withdrawal, multiple falls, BIBA to hospital with complaints of a fall and ETOH withdrawal after being found unresponsive by his visiting BHN., admitted with ETOH abuse, withdrawal. EtOH Abuse ETOH intoxication EtOH Withdrawal Multiple falls Patient may require section 35 due to frequent presentations and admissions for EtOH abuse/ w/d. W/U in progress PLAN - CIWA - Phenobarbital withdrawal protocol - Thiamine IV 400mg x1 completed - Thiamine 200mg IV OD continue - Folic acid - Addiction medicine consultation - post stabilization, assess the patient's capacity; multiple presentations for ETOH intoxication, withdrawal and persistence abuse, multiple falls - Addiction medicine consulted Traumatic rhabdomyolysis Multiple falls Elevated CPK 1000 - minimal improvement with hydration improving to 700 today Continue IVF Daily CPK Recent upper GI bleed Martinez's esophagus GERD Endorses dark brown stool, no melena or hematochezia Has not been compliant with medications in the outpatient setting, nor with ETOH abstinence PLAN - pantoprazole 40 mg OD IV - holding apixaban and VTE chemoprophylaxis Hypomagnesemia Hypokalemia Failure to thrive in adult PLAN - K >4 - Mg >2 - repeat BMP - dietitian consultation Alcoholic hepatitis Elevated transaminases Evaluation for hepatic dysfunction ongoing US liver not ordered Maddrey negligible Continue to monitor History of DVT History of IVC filter placement On Anticoagulation PLAN - holding apixaban and VTE prophylaxis - IVC filter in place - SCDs bilaterally Pancytopenia - Thrombocytopenia Etiologically possibly 2/2 bone marrow suppression in setting of ETOH abuse Other possible pathology could be superimposed such as MDS PLAN - outpatient evaluation with Hematology/Oncology COPD exacerbation, non infective Smoker Smoking cessation counseling provided Patient refuses nicotine patch or other chemical supports Prednisone 40 mg OD p.o. started BrodyoNebs Albuterol MDI QUALITY METRICS - VTE: SCDs - hold chemo prophylaxis - CODE STATUS: Full code - DIET: Regular diet Total time managing care of this patient today: 45 minutes. Quality Stroke Does the patient have a stroke diagnosis?: No VTE Prior VTE?: Yes VTE Risk Level:: Medical - moderate - high VTE Device Contraindication: N/A - Device Ordered VTE Drug Contraindication: Treatment Not Tolerated
--- NOTE | 2025-02-25 15:52 | MHC.RECOVRN ---
Follow-up conducted to offer support. Patient observed lying in bed watching television, in no apparent distress. When asked how he was feeling, pt expressed negative self-perceptions, stating he felt like ?a loser and a failure.? Patient was provided reassurance and psychoeducation, emphasizing that AUD is a medical condition and not a reflection of personal character or moral failure. Pt is agreeable to in-patient treatment for AUD however, reports he needs to regain strength prior to pursuing this option. ACS team will continue to follow patient and provide support as needed.
--- NOTE | 2025-02-25 21:52 | PC.NURSE ---
patient stating he wants to leave but doesn't plan to tonight but tomorrow on his own and would like to speak to a doctor in the morning.
--- NOTE | 2025-02-25 21:54 | PC.NURSE ---
Patient stating he wants to leave but made it clear he will stay tonight but tomorrow he plans to leave after he has spoken with a doctor. When asked the reason for wanting to leave patient stated, I don't feel comfortable here and then when asked if something happened to make him feel this way patient responded vaguely, no, I just don't want to be in the hospital .
[2025-02-26] MEDS: Albuterol Sulfate 90 MCG 8 GM INHALER 2 PUFF INHALE ×4 (00:22→12:10)
[2025-02-26 06:00] VITALS: BP 115/58; PULSE 72; RESP 18; TEMP 36.3; O2SAT 93
[2025-02-26 06:21] LABS: MANUAL DIFF FLAG NO
[2025-02-26 06:26] LABS: Hematocrit 30.8 % (42.0-52.0); Hemoglobin 10.3 g/dl (14.0-18.0); Imm Gran Abs Auto 0.02 X10*3/uL (0.00-0.03); Imm Gran Pct Auto 0.7 % (0.0-0.4); Lymphocytes Absolute Auto 0.5 X10*3/uL (1.2-4.9); Mean Corpuscular HGB Conc 33.4 g/dl (31.0-36.0); Mean Corpuscular Hemoglobin 31.2 pg (27.0-33.0); Mean Corpuscular Volume 93.3 fL (80.0-98.0); NRBC Abs Auto 0.000 X10*3/uL (0.0-0.012); NRBC Pct Auto 0.0 /100WBC (0.0-0.2); Platelet Count 160 X10*3/uL (160-400); Red Blood Count 3.30 X10*6/uL (4.60-5.80); White Blood Count 2.8 X10*3/uL (4.8-10.8)
[2025-02-26 06:43] LABS: Alanine Aminotransferase 51 U/L (0-40); Albumin Level 3.3 g/dL (3.5-5.0); Alkaline Phosphatase 204 U/L (39-117); Anion Gap 12 (12-20); Aspartate Amino Transferase 54 U/L (5-37); Blood Urea Nitrogen 11 mg/dL (9-16); Calcium 9.0 mg/dL (8.4-10.2); Carbon Dioxide 25 mmol/L (22-29); Chloride 104 mmol/L (96-108); Creatinine Clr Calc Pharmacy 114.9; Estimated Glomerular Filt Rate > 60; Magnesium 1.8 mg/dL (1.6-2.6); Potassium 4.3 mmol/L (3.3-5.1); Sodium 137 mmol/L (135-145); Total Protein 6.6 g/dL (6.5-8.0)
[2025-02-26 06:50] VITALS: BP 119/77; PULSE 78; RESP 16; TEMP 36.6; O2SAT 98
[2025-02-26] MEDS: 0.9 % Sodium Chloride Flush 3 ML SYRINGE IVFLUSH (07:33)
[2025-02-26] MEDS: PHENobarbital 15 MG TABLET PO (07:34)
[2025-02-26] MEDS: Thiamine HCL 200 MG in 0.9 % Sodium Chloride 100 ML 204 MG IV (07:48)
[2025-02-26] MEDS: Fluticasone/Umeclidinium/Vilanterol 100/62.5/25 BLST.W.DEV 1 PUFF INHALE (08:11)
[2025-02-26 08:14] VITALS: PULSE 78; RESP 16; O2SAT 97
[2025-02-26] MEDS: Lidocaine 4 % Patch ADH..PATCH 1 PATCH TRANSDERMA (09:18)
[2025-02-26 11:28] VITALS: BP 116/68; PULSE 84; RESP 17; TEMP 36.6; O2SAT 91
[2025-02-26 12:10] VITALS: PULSE 84; RESP 17; O2SAT 96
[2025-02-26] MEDS: guaiFEN/Codeine SF 200/20/10ML 10 ML LIQUID 5 ML PO (12:11)
--- NOTE | 2025-02-26 12:28 | HO.ADDICTPRO ---
Subjective Subjective Date of Service: 02/26/25 Reason For Visit: ETOH withdrawl, electrolyte abnormality Interim History: Patient seen in follow up for AUD Withdrawal sx resolved. Brighter affect. 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 Review of Systems Acute medical concerns: Yes Review of Systems Constitutional: Reports as per HPI Mental Status Exam Mental Status Exam Level of Consciousness: Awake, Appropriate and Alert Patient Behavior: Appropriate, Talkative and Cooperative Affect Description: Appropriate and Anxious Speech Pattern: Clear Thought Process: Intact Thought Content: positive for Intact Judgement: Good Diagnostics Vital Signs (24Hr): Vital Signs - 24 hr 02/25/25 14:56 02/25/25 15:02 02/25/25 20:00 Temperature 98 F 97.4 F Pulse Rate 95 90 87 Respiratory Rate 18 18 18 Blood Pressure 115/61 112/59 L Pulse Oximetry 93 94 Oxygen Delivery Method Room Air Room Air Oxygen Flow Rate 02/25/25 20:06 02/25/25 23:43 02/26/25 06:00 Temperature 97.6 F 97.4 F Pulse Rate 86 89 72 Respiratory Rate 15 20 18 Blood Pressure 99/53 L 115/58 L Pulse Oximetry 91 L 93 Oxygen Delivery Method Nasal Cannula Nasal Cannula Oxygen Flow Rate 2 2 02/26/25 06:50 02/26/25 08:14 02/26/25 11:28 Temperature 98 F 97.9 F Pulse Rate 78 78 84 Respiratory Rate 16 16 17 Blood Pressure 119/77 116/68 Pulse Oximetry 98 91 L Oxygen Delivery Method Oxymask Room Air Oxygen Flow Rate 2 02/26/25 12:10 Temperature Pulse Rate 84 Respiratory Rate 17 Blood Pressure Pulse Oximetry Oxygen Delivery Method Oxygen Flow Rate BMI result Body Mass Index 19.5 Labs 02/26/25 05:58 02/26/25 05:58 Labs: Laboratory Results - last 48 hr 02/25/25 02/26/25 07:11 05:58 WBC 3.8 L 2.8 L RBC 3.30 L 3.30 L Hgb 10.3 L 10.3 L Hct 31.2 L 30.8 L MCV 94.5 93.3 MCH 31.2 31.2 MCHC 33.0 33.4 RDW 16.4 H 16.1 H Plt Count 133 L D 160 MPV 9.6 9.7 Immature Gran % (Auto) 0.8 H 0.7 H Neut % (Auto) 61.3 60.7 Lymph % (Auto) 18.4 L 18.9 L Gosper % (Auto) 17.1 H 19.3 H Eos % (Auto) 1.6 0.0 Baso % (Auto) 0.8 0.4 Lymph # (Auto) 0.7 L 0.5 L [place]per # (Auto) 0.7 0.5 Eos # (Auto) 0.1 0.0 Baso # (Auto) 0.0 0.0 Abs Immat Gran (auto) 0.03 0.02 Absolute Neuts (auto) 2.3 1.7 L Absolute Nucleated RBC 0.000 0.000 Nucleated RBC % (auto) 0.0 0.0 Sodium 132 L 137 Potassium 4.7 D 4.3 Chloride 97 104 Carbon Dioxide 27 25 Anion Gap 13 12 BUN 8 L 11 Creatinine 0.67 0.55 Estim Creat Clear Calc 94.3 114.9 Estimated GFR > 60 > 60 Random Glucose 97 113 Calcium 8.6 D 9.0 Magnesium 1.5 L 1.8 Total Bilirubin 0.8 0.6 AST 91 H 54 H ALT 66 H 51 H Alkaline Phosphatase 232 H 204 H Total Creatine Kinase 146 Total Protein 6.6 6.6 Albumin 3.3 L 3.3 L Imaging Radiology Impressions: ITS Impressions Chest X-Ray 02/20/25 12:57 IMPRESSION: No acute cardiopulmonary abnormality. Electronically signed by: Shiraz Nova MD 02/20/2025 01:15 PM EST RP Cervical Spine CT 02/20/25 13:03 IMPRESSION: No acute bony abnormality. Stable chronic changes. Electronically signed by: Ryan Simpson MD 02/20/2025 01:37 PM EST RP Head CT 02/20/25 13:03 IMPRESSION: No acute intracranial abnormality. 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 Electronically signed by: Ryan Simpson MD 02/20/2025 01:30 PM EST RP Medications Medications Current Medications Acetaminophen (Acetaminophen 325 Mg Tablet) 650 mg PO Q6H PRN PRN Reason: Pain, Mild 1-3,fever,headache Last Admin: 02/26/25 07:36 Dose: 650 mg Albuterol Sulfate (Albuterol Sulfate 90 Mcg 8 Gm Inhaler) 2 puff INHALE RQ4H WHILE AWAKE [facility] Last Admin: 02/26/25 12:10 Dose: 2 puff Albuterol Sulfate (Albuterol Sulfate 90 Mcg 8 Gm Inhaler) 2 puff INHALE Q2H PRN PRN Reason: Shortness of Breath/Wheezing Last Admin: 02/26/25 02:53 Dose: 2 puff Benzonatate (Benzonatate 100 Mg Capsule) 100 mg PO TID PRN PRN Reason: Cough Last Admin: 02/26/25 07:25 Dose: 100 mg Calcium Carbonate (Calcium Carbonate 750 Mg Tab.Chew) 750 mg PO Q4H PRN PRN Reason: Heartburn Fluticasone/Umeclidinium/Vilanterol (Fluticasone/Umeclidinium/Vilanterol 100/62.5/25 Blst.W.Dev) 1 puff INHALE RDAILY [facility] Last Admin: 02/26/25 08:11 Dose: 1 puff Folic Acid (Folic Acid 1 Mg Tablet) 1 mg PO DAILY [facility] Last Admin: 02/26/25 07:34 Dose: 1 mg Gabapentin (Gabapentin 100 Mg Capsule) 100 mg PO TID [facility] Last Admin: 02/26/25 07:36 Dose: 100 mg Guaifenesin/Codeine Phosphate (Guaifen/Codeine Sf 200/20/10ml 10 Ml Liquid) 5 ml PO Q6H PRN PRN Reason: Cough Last Admin: 02/26/25 12:11 Dose: 5 ml Hydroxyzine HCl (Hydroxyzine Hcl 50 Mg Tablet) 50 mg PO Q8H PRN PRN Reason: Anxiety Last Admin: 02/26/25 07:35 Dose: 50 mg Thiamine HCl 200 mg/ Sodium (Chloride) 102 mls @ 204 mls/hr IV DAILY [facility] Last Infusion: 02/26/25 09:20 Dose: Infused Lidocaine (Lidocaine 4 % Patch Adh..Patch) 1 patch TRANSDERMA DAILY [facility]; Protocol Last Admin: 02/26/25 09:18 Dose: 1 patch Magnesium Hydroxide (Milk Of Magnesia 30 Ml Oral.Susp) 30 ml PO DAILY PRN PRN Reason: Constipation Magnesium Oxide (Magnesium Oxide 400 Mg Tablet) 400 mg PO DAILY [facility] Last Admin: 02/26/25 07:34 Dose: 400 mg Melatonin (Melatonin 3 Mg Tablet) 6 mg PO BEDTIME PRN PRN Reason: Insomnia Last Admin: 02/25/25 22:17 Dose: 6 mg Naltrexone HCl (Naltrexone Hcl 50 Mg Tablet) 50 mg PO DAILY [facility] Pharmacy Consult (Consult Rx Etoh Phenob Im/Po) 1 each MISCELLANE ONCE PRN; Protocol PRN Reason: Consult order Prednisone (Prednisone 20 Mg Tablet) 40 mg PO DAILY [facility] Last Admin: 02/26/25 07:36 Dose: 40 mg Sodium Chloride (0.9 % Sodium Chloride Flush 3 Ml Syringe) 3 ml IVFLUSH QSHIFT [facility] Last Admin: 02/26/25 07:33 Dose: 3 ml Allergies Allergies Allergy/AdvReac Type Severity Reaction Status Date / Time Peanut Butter Allergy Facial Verified 02/20/25 10:34 Swelling raspberry Allergy Facial Verified 02/20/25 10:34 Swelling Assessment & Plan Assessment & Plan (1) Alcohol use disorder, severe, dependence: Status: Acute Code(s): F10.20 - Alcohol dependence, uncomplicated Assessment and Plan: Started naltrexone 50mg QD --patient familiar with this medication. transition to PO thiame continue gabapentin at discharge Total time managing care of this patient today _25___ minutes.
--- NOTE | 2025-02-26 12:50 | PC.NURSE ---
patient anxious would like to be discharged or leave [facility]. Chatman notified
--- NOTE | 2025-02-26 13:24 | PC.NURSE ---
Dr. Chatman spoke with patient but patient decided to leave A
--- NOTE | 2025-02-26 14:11 | MHC.CM.PN ---
Addendum entered by Marian Garrido 02/26/25 15:27: PT CALLED STATING HE STILL WANTS TO GO TO [facility] CM CALLED [facility]IA[facility], SHE WILL ATTEMPT TO GET INSURANCE AUTH AND LET PT KNOW THE OUTCOME Original Note: PT LEFT AMA
--- NOTE | 2025-02-26 15:25 | P.DS_ITS ---
DS: Providers Provider Date of admission: 02/20/25 15:26 Date of discharge: 02/26/25 Primary care physician: Cristhian Delgado MD Consults: 02/20/25 12:50 ED CARE Team Crisis Consult Stat Comment: Reason for consultation: BHN request consult 02/21/25 09:37 Addiction Medicine Provider Routine Consulting Provider: Addiction Covering Reason for consultation: EtOH abuse, multiple admissions DS: Diagnosis Discharge Diagnosis (1) Alcohol use disorder, severe, dependence: Status: Acute DS: Summary Hospital Course Hospital Course: 64-year-old male?with severe alcohol use disorder, active smoking, COPD, prior DVT s/p IVC filter on apixaban, peripheral neuropathy, history of recurrent falls and prior upper GI bleeding related to alcohol use, admitted after multiple falls and acute alcohol intoxication with withdrawal complicated by traumatic rhabdomyolysis, electrolyte derangements, alcoholic hepatitis, pancytopenia, and COPD exacerbation; hospital course notable for phenobarbital- based withdrawal management, IV fluids, electrolyte repletion, and multidisciplinary planning for STR followed by inpatient alcohol rehabilitation, who?left the hospital against medical advice prior to completion of treatment and planned disposition. Alcohol Use Disorder / Alcohol Withdrawal Severe alcohol use disorder with recurrent admissions for intoxication and withdrawal. This admission complicated by withdrawal symptoms requiring phenobarbital protocol. Addiction Medicine was consulted. A?Section 35?was actively being pursued but?not completed?prior to patient?s decision to leave. Plan / Discharge Status: * Phenobarbital taper?not completed * Withdrawal treatment?incomplete * Strongly advised continued inpatient care and transfer to [facility] followed by inpatient rehabilitation * Patient?refused further hospitalization?and left AMA * Patient states he does not want to drink but insists on leaving to obtain clothing and cigarettes; refused alternatives offered * High risk for?recurrent withdrawal, seizures, falls, GI bleeding, hepatic injury, and Traumatic Rhabdomyolysis Likely secondary to prolonged down time and repeated falls while intoxicated. CK initially ?1000, improved with IV hydration but?not fully normalized?at time of departure. Plan / Discharge Status: * IV fluids discontinued due to AMA discharge * Patient advised of risk of?TAMEKA and recurrent rhabdomyolysis * No outpatient labs arranged due to AMA departure Electrolyte Abnormalities / Failure to Thrive Recurrent hypomagnesemia, hypokalemia, hypoalbuminemia, and poor nutritional status related to alcohol use. Plan / Discharge Status: * Electrolyte repletion?incomplete * Nutrition optimization and dietitian involvement?not completed * Patient advised of risks including arrhythmia, weakness, and falls Alcoholic Hepatitis Elevated AST/ALT and alkaline phosphatase consistent with alcoholic liver injury. Maddrey score not elevated; no indication for steroids. Plan / Discharge Status: * Monitoring and counseling provided * Continued alcohol use poses risk of?progression to liver failure * Patient declined continued inpatient monitoring Pancytopenia (Thrombocytopenia Predominant) Likely secondary to chronic alcohol-related bone marrow suppression; platelets remained low throughout admission. Plan / Discharge Status: * No acute bleeding during admission * Outpatient hematology follow-up recommended but?not arranged due to AMA * Patient advised of bleeding risk, especially if drinking resumes History of DVT / IVC Filter Chronic DVT history with IVC filter in place. Apixaban held during admission due to thrombocytopenia, fall risk, and recent GI bleeding. Plan / Discharge Status: * Anticoagulation status?unresolved at discharge * Patient informed of risks of both thrombosis and bleeding * No safe transition plan due to AMA discharge COPD Exacerbation / Active Smoking Non-infectious COPD exacerbation treated with bronchodilators and systemic steroids. Persistent cough. Patient repeatedly requested to smoke; refused nicotine replacement. Plan / Discharge Status: * Prednisone course?incomplete * Continued inhaler therapy recommended * Smoking cessation counseling provided; patient declined assistance Falls / Functional Decline Multiple alcohol-related falls with deconditioning and neuropathy. Physical Therapy recommended?Short-Term Rehabilitation (STR)?prior to alcohol rehabilitation placement. Plan / Discharge Status: * STR placement?not completed * Patient discharged?against medical advice without mobility support * High risk for recurrent falls and injury Capacity & AMA Documentation * Patient evaluated and?demonstrated full decision-making capacity * Able to articulate understanding of: * Risk of * Risk of severe withdrawal, seizures, bleeding, falls, and organ failure * Patient acknowledged these risks and?elected to leave AMA * Patient declined offered alternatives (retrieval of belongings, supervised smoking break) * AMA form signed Status at Discharge Functional status at discharge: uses cane/walker Overall status at discharge: patient is not back to baseline Time Attestation Total time managing care of this patient today: 45 mintues. Discharge Coordination Time (in mins): 45 Quality: Safe Use of Opioids Does Pt have an Active Cancer Diagnosis on the Problem List?: No Quality: Stroke Does the patient have a stroke diagnosis?: No Physical Exam Exam: Exam: General:?Awake, alert, oriented ?3, conversant, cooperative. Disheveled appearance. No acute distress. Vital Signs:?Reviewed. HEENT:?Normocephalic. Multiple facial ecchymoses in various stages of healing. N o scalp hematoma. Pupils equal, round, reactive to light. Extraocular movements intact. Oral mucosa moist. Neck:?Supple. Full range of motion. No cervical spine tenderness. No JVD. Cardiovascular:?Regular rate and rhythm. Normal S1/S2. No murmurs, rubs, or gallops. Peripheral pulses palpable and symmetric. No peripheral edema. Respiratory:?Decreased breath sounds bilaterally with diffuse expiratory wheezing, most prominent in upper lung lucas. No rales or crackles. No accessory muscle use. No cyanosis. Abdomen:?Soft, non-distended. Mild left lower quadrant tenderness to palpation without rebound or guarding. Bowel sounds present. Musculoskeletal:?Moves all extremities spontaneously. Generalized muscle wasting of upper and lower extremities. Ambulates with unsteady gait. No focal bony tend erness. Skin:?Multiple ecchymoses over face and extremities. Scattered excoriations and scabbed superficial wounds. No active bleeding. Skin warm and dry. Neurologic:?Alert and oriented ?3. Speech clear. Cranial nerves II?XII grossly intact. No focal motor or sensory deficits. Mild tremor noted. Psychiatric:?Appropriate affect. Linear thought process. Demonstrates intact insight and judgment. Able to articulate risks and benefits of medical decisions; capacity intact. Vital Signs: Vital Signs: Last Vital Signs Temp 97.9 F 02/26/25 11:28 Pulse 84 02/26/25 12:10 Resp 17 02/26/25 12:10 BP 116/68 02/26/25 11:28 Pulse Ox 91 L 02/26/25 11:28 O2 Del Method Room Air 02/26/25 11:28 O2 Flow Rate 2 02/26/25 06:50 Oxygen Flow Rate 2 02/20/25 10:27 BMI result Body Mass Index 19.5 DS: Data Data Completed and Pending Completed studies during hospitalization [Text1]: Procedures Detoxification Services for Substance Abuse Treatment (01/17/25) Excision of Buttock Subcutaneous Tissue and Fascia, Open Approach (10/07/22) Excision of Stomach, Pylorus, Via Natural or Artificial Opening Endoscopic, Diagnostic (01/17/25) Extraction of Esophagus, Via Natural or Artificial Opening Endoscopic, Diagnostic (01/17/25) Labs on day of discharge: Laboratory Results - last 24 hr 02/26/25 05:58 WBC 2.8 L RBC 3.30 L Hgb 10.3 L Hct 30.8 L MCV 93.3 MCH 31.2 MCHC 33.4 RDW 16.1 H Plt Count 160 MPV 9.7 Immature Gran % (Auto) 0.7 H Neut % (Auto) 60.7 Lymph % (Auto) 18.9 L [place] % (Auto) 19.3 H Eos % (Auto) 0.0 Baso % (Auto) 0.4 Lymph # (Auto) 0.5 L [place] # (Auto) 0.5 Eos # (Auto) 0.0 Baso # (Auto) 0.0 Abs Immat Gran (auto) 0.02 Absolute Neuts (auto) 1.7 L Absolute Nucleated RBC 0.000 Nucleated RBC % (auto) 0.0 Sodium 137 Potassium 4.3 Chloride 104 Carbon Dioxide 25 Anion Gap 12 BUN 11 Creatinine 0.55 Estim Creat Clear Calc 114.9 Estimated GFR > 60 Random Glucose 113 Calcium 9.0 Magnesium 1.8 Total Bilirubin 0.6 AST 54 H ALT 51 H Alkaline Phosphatase 204 H Total Protein 6.6 Albumin 3.3 L Discharge Plan Discharge Anticipated Discharge Date/Time: 02/26/25 15:31 Patient Disposition: Left Against Medical Advice Discharge Diagnosis: Acute alcohol withdrawal c/b rhabdomyolysis and non infective exacerbation of COPD Referrals: Cristhian Delgado MD [Primary Care Provider, Internal Medicine] - 1 Week Discharge Medications: Continued Eliquis 5 mg tablet 5 mg PO BID albuterol sulfate 90 mcg/actuation HFA aerosol inhaler 2 puff inhalation Q4H PRN (Reason: Shortness Of Breath) melatonin 5 mg tablet 5 - 10 mg PO BEDTIME PRN (Reason: Sleep) Trelegy Ellipta 100-62.5-25 mcg Blister With Device 1 inh inhalation RDAILY 30 Days Qty: 1 0RF acetaminophen 500 mg tablet 1,000 mg PO Q6H PRN (Reason: pain) Qty: 30 0RF Discharge Orders: Discharge Order (Routine); Ordered 02/26/25 Ordered By: Kin Chatman Diet: Advance to usual diet Activity on Discharge: As tolerated Print Language: Pashto Care Plan Goals: Left AMA - recommend return to the hospital to complete treatment Health Concerns: Left AMA - recommend return to the hospital to complete treatment Plan of Treatment: Left AMA - recommend return to the hospital to complete treatment Assessment: Left AMA - recommend return to the hospital to complete treatment Discharge Date/Time: 02/26/25 13:34
== END 2025-02-26 13:34 | disposition left against medical advice (07) | DRG 894 ==
LOC: HO.ED 14:46 → HO.EDOVER 15:33 → HO.IMC 16:21 → HO.S3 02-25 18:53
PROVIDERS: Admitting Provider Hospitalist; Emergency Provider Emergency Medicine; PCP Internal Medicine; Visit Provider Hospitalist
DX: F10.239 Alcohol dependence with withdrawal, unspecified (principal); D61.818 Other pancytopenia; T79.6XXA Traumatic ischemia of muscle, initial encounter; W19.XXXA Unspecified fall, initial encounter; F17.210 Nicotine dependence, cigarettes, uncomplicated; Z71.6 Tobacco abuse counseling; Z20.822 Contact with and (suspected) exposure to COVID-19; Y90.8 Blood alcohol level of 240 mg/100 ml or more; F10.229 Alcohol dependence with intoxication, unspecified; K22.70 Barrett's esophagus without dysplasia; J44.9 Chronic obstructive pulmonary disease, unspecified; E83.42 Hypomagnesemia; E87.6 Hypokalemia; K21.9 Gastro-esophageal reflux disease without esophagitis; K70.10 Alcoholic hepatitis without ascites; R29.6 Repeated falls; Z86.718 Personal history of other venous thrombosis and embolism; Z91.148 Patient's other noncompliance with medication regimen for other reason; Z91.81 History of falling; Z79.01 Long term (current) use of anticoagulants; Z79.52 Long term (current) use of systemic steroids; Z79.899 Other long term (current) drug therapy
CPT/HCPCS: 36415; 70450; 71045; 71046; 72125; 80048; 80053; 80076; 80307; 82550; 83690; 83735; 84484; 85025; 87637; 93005; 97116; 97162; 99285; J2405; J2470; J2560; J3411; J3475; J7120; S9485

== ENCOUNTER → 2025-02-20 12:47 | Outpatient (BNV) | payer OTHER, SELFPAY | PROVIDERS: Emergency Provider Emergency Medicine; PCP Internal Medicine; Visit Provider Radiology Diagnostic Radiology | DX: F10.90 Alcohol use, unspecified, uncomplicated (principal); S09.90XA Unspecified injury of head, initial encounter; Z04.3 Encounter for examination and observation following other accident; R05.9 Cough, unspecified | CPT/HCPCS: 70450; 71046; 72125 ==

== ENCOUNTER 2025-02-20 15:26 | Outpatient (BNV) | payer OTHER, SELFPAY | END 2025-02-24 12:15 | PROVIDERS: Admitting Provider Hospitalist; Emergency Provider Emergency Medicine; PCP Internal Medicine; Visit Provider Specialist | DX: R05.9 Cough, unspecified (principal) | CPT/HCPCS: 71045 ==

== ENCOUNTER → 2025-02-20 15:26 | Outpatient (BNV) | payer OTHER, SELFPAY | PROVIDERS: Admitting Provider Hospitalist; Emergency Provider Emergency Medicine; PCP Internal Medicine; Visit Provider Nurse Practitioner Psychiatric/Mental Health | DX: F10.20 Alcohol dependence, uncomplicated (principal) | CPT/HCPCS: 99222 ==

== ENCOUNTER → 2025-02-20 15:26 | Outpatient (BNV) | payer OTHER, SELFPAY | PROVIDERS: Admitting Provider Hospitalist; Emergency Provider Emergency Medicine; PCP Internal Medicine; Visit Provider Hospitalist | DX: F10.930 Alcohol use, unspecified with withdrawal, uncomplicated (principal); I82.509 Chronic embolism and thrombosis of unspecified deep veins of unspecified lower extremity; Z95.828 Presence of other vascular implants and grafts; K22.70 Barrett's esophagus without dysplasia; D61.818 Other pancytopenia; T79.6XXA Traumatic ischemia of muscle, initial encounter; J44.9 Chronic obstructive pulmonary disease, unspecified; F17.200 Nicotine dependence, unspecified, uncomplicated; R29.6 Repeated falls | CPT/HCPCS: 99223; 99232; 99233 ==

== ENCOUNTER 2025-02-27 11:03 | Emergency (ER) | payer OTHER, SELFPAY ==
[2025-02-27] VITALS (7 sets, daily range): BP systolic 95–122; BP diastolic 52–66; PULSE 76–100; RESP 16–22; TEMP 36.6–36.8; O2SAT 88–97; BMI 19.9
--- NOTE | ~2025-02-27 | XR_ITS ---
EXAMINATION: XR CHEST CLINICAL INFORMATION: Cough COMPARISON: 02/24/2025, 02/20/2025, 01/29/2025. TECHNIQUE: Frontal view of the chest was obtained. FINDINGS: Mildly elevated right hemidiaphragm, unchanged. The cardiac, hilar, and mediastinal contours are normal. Saber-sheath trachea. Lungs are hyperaerated and mildly hyperlucent suggestive of COPD. Lungs otherwise clear. No pneumothorax or effusion. No focal osseous or soft tissue abnormality. XR/XR chest 1V IMPRESSION: 1. Findings suggestive of COPD. 2. No active pulmonary disease. Electronically signed by: Jp Joseph MD 02/27/2025 11:35 AM [facility]
--- NOTE | 2025-02-27 11:11 | ED_ITS ---
HPI - Alcohol General Chief Complaint: ETOH/Substance Use Stated Complaint: ETOH WITHDRAW, WEAKNESS Source: patient, EMS and old records reviewed Mode of arrival: EMS Limitations: no limitations History of Present Illness ED Provider: HARMONY HPI narrative: 64-year-old male with past medical history COPD not on home O2, prior DVT status post IVC filter on Eliquis, neuropathy, history of GI bleeds, alcohol use disorder drank 2 pt last night. He was just admitted here from 02/20/2025 to 02/26/2025 leaving AMA yesterday he was being treated for rhabdo, alcohol withdrawal, alcoholic hepatitis, COPD. He comes back today and states he drank 2 pt of alcohol and now he is in alcohol withdrawal on arrival he is smiling he is not in withdrawal. He did have a cough and was found to have sats in the upper 80s. He states he is fine that nebs never help and that he is not sick and he has not been around anyone sick. He denies any falls or new trauma and he denies SI MD complaint: alcohol withdrawal Last drink: Hours (ago) Chronic alcohol use: Yes Previous visits for alcohol intoxication: Yes Recent trauma: No Associated symptoms: denies other symptoms Treatments prior to arrival: none Related Data Home Medications ?Medication ?Instructions ?Recorded ?Confirmed apixaban 5 mg tablet (Eliquis) 5 mg PO BID 08/29/22 albuterol sulfate 90 mcg/actuation 2 puff inhalation Q 4H PRN 01/17/25 02/20/25 aerosol inhaler Shortness Of Breath melatonin 5 mg tablet 5 - 10 mg PO BEDTIME PRN Sle ep 01/17/25 02/20/25 Previous Rx's ?Medication ?Instructions ?Recorded fluticasone fur. 100 mcg-umeclid 1 inh inhalation RDAI LY 30 days #1 01/22/25 62.5 mcg-vilant 25 mcg ea inhalat.powder (Trelegy Ellipta) acetaminophen 500 mg tablet 1,000 mg (2 x 500 mg) PO Q 6H PRN 01/25/25 pain #30 tabs azithromycin 250 mg tablet See Rx Instructions PO .COM PLEX #6 02/27/25 tabs prednisone 20 mg tablet 40 mg (2 x 20 mg) PO DAILY 5 days 02/27/25 #10 tabs Allergies Allergy/AdvReac Type Severity Reaction Status Date / Time Peanut Butter Allergy Facial Verified 02/27/25 11:10 Swelling raspberry Allergy Facial Verified 02/27/25 11:10 Swelling Review of Systems 2 Review of Systems: Yes all other systems are reviewed and are negative [facility] Past Medical History Attestation statement: The following information was validated with the patient. Source: old records reviewed Medical History Alcohol use disorder, severe, dependence Alcohol withdrawal Alcohol dependence Presence of IVC filter Acute and chronic respiratory failure with hypoxia COPD (chronic obstructive pulmonary disease) Tobacco abuse Subdural hematoma DVT (deep venous thrombosis) COPD (chronic obstructive pulmonary disease) Asthma Neuropathy Alcohol abuse Social History Social History Household Members: None Housing: House Do you presently have visiting nurse or other home services: Yes Alcohol intake: current Alcohol intake frequency: 3 or more drinks per day Alcohol type: hard liquor Comment: pt refuses high fall risk interventions Patient Tobacco Use Status: Current everyday Tobacco user Tobacco use type: Cigarette Cigarette Packs Per Day: 1 Cigarettes Per Day: 20.0 Smoked in Last 30 Days: Yes e-Cigarette/Vaping Use: Never Used Second Hand Smoke Exposure: No Use of substances other than those prescribed or required for medical reasons: No Substance Use Type: Marijuana Advance Directives: Yes Advance Directives on File: Yes Advance Directives Date on File: 03/05/22 Do you have a plan to hurt others: No Plan service: No Current occupational status: disabled Physical Exam ED Vital Signs: Vital Signs - 24 hr 02/27/25 11:09 02/27/25 11:56 02/27/25 12:20 Temperature 97.8 F Pulse Rate 100 82 76 Respiratory Rate 20 16 16 Blood Pressure 95/52 L 100/57 L 102/52 L Pulse Oximetry 90 L 88 L 92 Oxygen Delivery Method Room Air Room Air Aerosol Mask 02/27/25 13:12 02/27/25 14:42 02/27/25 15:07 Temperature 98.2 F Pulse Rate 93 87 Respiratory Rate 22 H 18 Blood Pressure 122/66 Pulse Oximetry 92 92 Oxygen Delivery Method Room Air Room Air BMI result Body Mass Index 19.9 Appearance: Alert. Oriented X3. No acute distress. Eyes: Pupils equal, round and reactive to light. ENT: Pharynx normal. Atraumatic Neck: Normal inspection. Neck supple. CVS: Normal heart rate and rhythm. Pulses normal. Respiratory: No respiratory distress. Coarse and diminished throughout Abdomen: Soft and nontender. Skin: Skin warm and dry. Normal skin color. Normal skin turgor. Extremities: No lower extremity edema. Neuro: Oriented X 3. No motor deficit. No sensory deficit. CN2-12 intact Course Course Course Narrative: 1:16 PM 02/27/2025 (HARMONY GUDINO): Edgardo is refusing treatment so he is wheezing I would like to get him off oxygen I feel like if he did the treatment he would improve. It is perplexing why he continues to come in then refuse care then ultimately lead AMA but the next day takes an ambulance for similar complaints. I am not entirely sure what his end goal is. We will continue to monitor. Reevaluation(s) Reevaluation #1: 2:21 PM 02/27/2025 (HARMONY GUDINO): O2 sat 92% he is comfortable he is not in any distress his bronchospasm responded as I suspected after inhaler treatment He is not placed into detox by care team as he always leaves AMA and then leads on arrival to the detox this is not a new pattern given his history of leaving they have instructed in the past that we discharge him with outpatient referrals which I am doing now he is capable of calling facilities on his own Medical Decision Making Medical Decision Making MDM Narrative: 64-year-old male with past medical history COPD not on home O2, prior DVT status post IVC filter on Eliquis, neuropathy, history of GI bleeds, alcohol use disorder here again stating he is in alcohol withdrawal though clinically there is no signs of withdrawal he appears intoxicated. He also has COPD and continues to smoke he denies any fevers or new sputum production. He is going to need nebs and oral steroids. At this time he has been given multiple detox referrals and we sent him to detox but he continues to leave [facility] I will medically clear him and reassess he may be able to go home today as long as he does not require O2 we will maintain sats above 90% Differential Diagnosis Differential Diagnoses: The differential diagnosis associated with the presentation includes Chronic COPD, alcohol intoxication, at this time despite saying he is in withdrawal he exhibiting no signs of withdrawal he is not hypertensive he has no tremors and no fascicular Admission/Observation Consideration of admission/observation: Escalation of care including admission/observation considered Patient is not hypoxic he is not altered he has no signs of tremors or fasciculation he appears comfortable at this time he is going to have to call detox facilities from his house He is in no respiratory distress he responded well to simple albuterol MDI in the hallway I will start him on prednisone low dose for 3 days He is more than capable of climbing detox facilities from home at this time he has no SI Lab Data MDM Lab Attestation statement: I reviewed the patient's lab results. 02/27/25 12:11 02/27/25 12:11 Labs: Lab Results 02/27/25 02/27/25 Range/Units 12:11 13:01 WBC 7.0 (4.8-10.8) X10*3/uL RBC 3.40 L (4.60-5.80) X10*6/uL Hgb 10.5 L (14.0-18.0) g/dl Hct 31.8 L (42.0-52.0) % MCV 93.5 (80.0-98.0) fL MCH 30.9 (27.0-33.0) pg MCHC 33.0 (31.0-36.0) g/dl RDW 16.6 H (11.0-16.0) % Plt Count 256 D (160-400) X10*3/uL MPV 8.9 L (9.4-12.4) fL Immature Gran % (Auto) 0.6 H (0.0-0.4) % Neut % (Auto) 70.9 (45-73) % Lymph % (Auto) 11.2 L (20-40) % [place] % (Auto) 16.8 H (2-11) % Eos % (Auto) 0.1 (0-4) % Baso % (Auto) 0.4 (0-2) % Lymph # (Auto) 0.8 L (1.2-4.9) X10*3/uL [place] # (Auto) 1.2 (0.1-1.2) X10*3/uL Eos # (Auto) 0.0 (0.0-0.4) X10*3/uL Baso # (Auto) 0.0 (0.0-0.2) X10*3/uL Abs Immat Gran (auto) 0.04 H (0.00-0.03) X10*3/uL Absolute Neuts (auto) 4.9 (2.0-8.3) x10*3/uL Absolute Nucleated RBC 0.000 (0.0-0.012) X10*3/uL Nucleated RBC % (auto) 0.0 (0.0-0.2) /100WBC VBG pH 7.46 H (7.32-7.43) VBG pCO2 37 mmHg VBG pO2 109 mmHg VBG HCO3 27 H (22-26) mmol/L VBG O2 Saturation 100.0 % VBG Base Excess 3.4 mmol/L Sodium 138 (135-145) mmol/L Potassium 4.2 (3.3-5.1) mmol/L Chloride 103 (96-108) mmol/L Carbon Dioxide 27 (22-29) mmol/L Anion Gap 12 (12-20) BUN 12 (9-16) mg/dL Creatinine 0.74 (0.5-1.4) mg/dL Estim Creat Clear Calc 87.3 Estimated GFR > 60 Random Glucose 105 (60-115) mg/dL Calcium 9.0 (8.4-10.2) mg/dL Magnesium 1.7 (1.6-2.6) mg/dL Total Bilirubin 0.8 (0.0-1.0) mg/dL Direct Bilirubin 0.5 (0.0-0.5) mg/dL AST 62 H (5-37) U/L ALT 54 H (0-40) U/L Alkaline Phosphatase 192 H (39-117) U/L Total Creatine Kinase 54 (38-174) U/L C-Reactive Protein 6.91 H (< or = 0.50) mg/dL Total Protein 7.2 (6.5-8.0) g/dL Albumin 3.7 (3.5-5.0) g/dL Ethyl Alcohol < 10 mg/dL Influenza Type A (PCR) NEGATIVE (Negative) Influenza Type B (PCR) NEGATIVE (Negative) RSV RNA Qual (PCR) NEGATIVE (Negative) SARS-CoV-2 RNA (RT-PCR) NEGATIVE (Negative) Independent Interpretation I performed an independent interpretation of an: EKG and Plain X-Ray (No pneumonia) Interpretation: Rate: 94 Rhythm: Normal sinus rhythm [place]: Left Normal P waves. Normal [place]. Right bundle-branch block ST T wave : Inverted T-waves in V1 but no ST-elevation qTC: 475 prior studies: No change from prior The study has been interpreted contemporaneously by me. . Radiology Impression Discussion of test interpretation with radiology: I have reviewed the radiologist's reading. Independent Historian Clinical information obtained from an independent historian. History obtained from or confirmed by: EMS External Record Review External record reviewed: Inpatient record and Outpatient record Prescription Management I considered prescription management with: Other Medications Administered Discontinued Medications Generic Name Dose Route Start Last Admin Trade Name Freq PRN Reason Stop Dose Admin Albuterol Sulfate 12 puff 02/27/25 13:08 02/27/25 13:11 Albuterol Sulfate 90 Mcg 8 Gm Inhaler INHALE 02/27/25 13:09 12 puff ONCE ONE Administration Prednisone 40 mg 02/27/25 11:13 02/27/25 12:39 Prednisone 20 Mg Tablet PO 02/27/25 11:14 40 mg ONCE ONE Administration Discharge Plan Discharge Clinical Impression: Alcohol use disorder COPD (chronic obstructive pulmonary disease) Qualifiers: COPD type: unspecified COPD Qualified Code(s): J44.9 - Chronic obstructive pulmonary disease, unspecified Patient Disposition: Home, Self-Care Instructions: COPD (Chronic Obstructive Pulmonary Disease) (ED), Abuse of Alcohol (ED) Additional Instructions: Your labs are reassuring Your chest x-ray did not show pneumonia Your EKG is stable Your vital signs were stable your oxygen level was 92% after inhalers please continue to use your inhaler at home Please call detox facilities from your house Return for any worsening symptoms or concerns Alcohol use disorder You were seen in the Emergency Department today for treatment of alcohol use disorder.? You may have been given medications to help with your withdrawal symptoms.? Please do not drink alcohol with them. This is very dangerous and can cause respiratory depression or other adverse reactions depending on the medication. If you would like to cut down or stop your alcohol use please consider calling our outpatient Addiction Treatment office:? [facility] ([id number] [id number]) [address] [place] [address] [address] You have also been given a list of treatment providers in the area that can assist as well.? If you experience seizures, vomiting blood, black stools, falls, severe headache, chest pain, fevers, trouble breathing, hallucinations or any other concerns you need to call 911 or seek immediate care. Please stay hydrated. Prescriptions: New azithromycin 250 mg tablet See Rx Instructions .ROUTE .COMPLEX Qty: 6 0RF Rx Instructions: For 250 mg dose pack: take 500 mg today (day 1), then 250 mg for 4 days (days 2-5) prednisone 20 mg tablet 40 mg PO DAILY 5 Days Qty: 10 0RF No Action Eliquis 5 mg tablet 5 mg PO BID albuterol sulfate 90 mcg/actuation HFA aerosol inhaler 2 puff inhalation Q4H PRN (Reason: Shortness Of Breath) melatonin 5 mg tablet 5 - 10 mg PO BEDTIME PRN (Reason: Sleep) Trelegy Ellipta 100-62.5-25 mcg Blister With Device 1 inh inhalation RDAILY 30 Days Qty: 1 0RF acetaminophen 500 mg tablet 1,000 mg PO Q6H PRN (Reason: pain) Qty: 30 0RF Interventions: ED Discharge Assessment Last Done: 02/27/25 15:07 Discharge Date/Time: 02/27/25 15:08 Print Language: Pashto
--- NOTE | 2025-02-27 11:14 | ECG_ITS ---
Test Reason : sob Blood Pressure : */* mmHG Vent. Rate : 94 BPM Atrial Rate : 94 BPM P-R Int : 116 ms QRS Dur : 110 ms QT Int : 380 ms P-R-T Axes : 72 -54 29 degrees QTcB Int : 475 ms Normal sinus rhythm Right bundle branch block Left anterior fascicular block Bifascicular block Abnormal ECG When compared with ECG of 17-Feb-2025 16:01, No significant changes seen Referred By: Denita Jauregui Electronically Signed By: RENEE TRAMMELL
[2025-02-27 12:15] LABS: MANUAL DIFF FLAG NO
[2025-02-27 12:19] LABS: Hematocrit 31.8 % (42.0-52.0); Hemoglobin 10.5 g/dl (14.0-18.0); Imm Gran Abs Auto 0.04 X10*3/uL (0.00-0.03); Imm Gran Pct Auto 0.6 % (0.0-0.4); Lymphocytes Absolute Auto 0.8 X10*3/uL (1.2-4.9); Mean Corpuscular HGB Conc 33.0 g/dl (31.0-36.0); Mean Corpuscular Hemoglobin 30.9 pg (27.0-33.0); Mean Corpuscular Volume 93.5 fL (80.0-98.0); NRBC Abs Auto 0.000 X10*3/uL (0.0-0.012); NRBC Pct Auto 0.0 /100WBC (0.0-0.2); Platelet Count 256 X10*3/uL (160-400); Red Blood Count 3.40 X10*6/uL (4.60-5.80); White Blood Count 7.0 X10*3/uL (4.8-10.8)
[2025-02-27 12:39] LABS: Alanine Aminotransferase 54 U/L (0-40); Albumin Level 3.7 g/dL (3.5-5.0); Alkaline Phosphatase 192 U/L (39-117); Anion Gap 12 (12-20); Aspartate Amino Transferase 62 U/L (5-37); Blood Urea Nitrogen 12 mg/dL (9-16); Calcium 9.0 mg/dL (8.4-10.2); Carbon Dioxide 27 mmol/L (22-29); Chloride 103 mmol/L (96-108); Creatinine Clr Calc Pharmacy 87.3; Estimated Glomerular Filt Rate > 60; Magnesium 1.7 mg/dL (1.6-2.6); Potassium 4.2 mmol/L (3.3-5.1); Sodium 138 mmol/L (135-145); Total Protein 7.2 g/dL (6.5-8.0)
[2025-02-27 12:55] LABS: Resp Syncy Virus RNA Qual PCR NEGATIVE (Negative); SARS COV2 PCR INHOUSE NEGATIVE (Negative)
[2025-02-27 13:03] LABS: Venous Blood Gas Refer to POC result
[2025-02-27 13:04] LABS: VBG HCO3 27 mmol/L (22-26); VBG O2 % Saturation 100.0 %
[2025-02-27] MEDS: Albuterol Sulfate 90 MCG 8 GM INHALER 12 PUFF INHALE (13:11)
--- OUTSIDE RECORDS SUMMARY | 2025-02-27 15:22 | XMS_ITS | Data Portability ---
Author Organization [facility], Telehealth Patient Home Address [address] [facility] [place] [address] Assessment Encounter Date Assessment Date Assessment LastModified by Organization Details LastModified Time 01/19/2024 01/19/2024 [address] [place] [address] (FISH NET STRINGER) MDM HIGH MUST MEET 2 OUT OF [...] COVERED Not available 01/19/2024 11:54:32 03/22/2024 03/22/2024 [address] [place] [address] (FISH NET STRINGER) MDM MODERATE MUST MEET 2 OUT OF [...] COVERED Not available 03/22/2024 11:36:53 05/19/2024 05/19/2024 [address] [place] [address] (FISH NET STRINGER) MDM HIGH MUST MEET 2 OUT OF [...] COVERED Not available 05/19/2024 15:01:00 06/07/2024 06/07/2024 [address] [place] [address] (FISH NET STRINGER) MDM MODERATE MUST MEET 2 OUT OF [...] COVERED Not available 06/07/2024 12:03:37 10/10/2024 10/10/2024 [id number] [place] [address] (FISH NET STRINGER) MDM MODERATE MUST MEET 2 OUT OF [...] vitamin D, 25-hydroxy, total, serum 2024 025 [facility], [address] [place] [address], [address], 12:27:32 vitamin B12 + folate, serum or blood 2024 025 [facility], [address] [place] [address], [address], 12:30:46 CMP, serum or plasma 2024 025 [facility], [address] [place] [address], [address], 12:30:45 Referral orthopedic surgeon referral 2024 025 vamshi Simpson MD, [address] [facility] [address], [place], [address], 09:07:33 gastroenter ologist referral - routine colonoscopy 2024 025 aravind Parra MD, [address] [facility] [address], [place], [address], 09:35:00 Procedures None recorded. Surgeries None recorded. Imaging XR, hand, 3 or more view 2024 025 [facility] ([facility]), [address] [place], [address], 08:24:58 MRI, shoulder, w/o contrast 2024 025 [facility] ([facility]), [address] [place], [address], 5 08:26:15 XR, hand, 3 or more view 2023 024 [facility] ([facility]), [address] [place], [address], 4 08:29:38 Medication Orders triamcinolo ne acetonide 0.1 % topical cream 2024 025 [facility] [address] [place], [address], 5 16:46:57 azithromyci n 250 mg tablet 2024 025 [facility], [address] [place], [address], 5 12:12:19 azithromyci n 250 mg tablet 2024 025 [facility], [address] [place], [address], 5 14:59:57 triamcinolo ne acetonide 0.1 % topical cream 2024 025 [facility], [address] [place], [address], 5 15:02:20 triamcinolo ne acetonide 0.1 % topical cream 2023 024 [facility], [address] [place], [address], 4 11:51:47 Multivitami n 50 Plus tablet 2023 024 [id number], [address] [place], [address], 4 11:50:00 Patient TargetsNo targets recorded. Patient Instructions Encounter Date Encounter Id Patient Instructions Last Modified By Organization Details Last Modified Time 01/19/2024 [id number] chronic obstructive pulmonary disease (COPD): care instructions Not available 01/19/2024 11:49:57 learning about copd and how to prevent lung infections Not available 01/19/2024 11:49:57 pulse oximetry* Not available 01/19/2024 11:49:57 neuropathic pain : care instructions Not available 01/19/2024 11:49:57 03/22/2024 [id number] pulse oximetry* KAROLYN Not available 03/22/2024 11:49:54 05/19/2024 [id number] pulse oximetry* Not available 05/19/2024 14:59:35 dislocated shoulder: care instructions Not available 05/19/2024 14:59:35 shoulder dislocation: rehab exercises Not available 05/19/2024 14:59:35 neuropathic pain : care instructions Not available 05/19/2024 15:02:31 06/07/2024 [id number] pulse oximetry* KAROLYN Not available 06/07/2024 11:42:18 10/10/2024 [id number] pulse oximetry* Not available 10/10/2024 16:46:54 Reason for Referral Territory 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 Referral for Screening for malignant neoplasm of [...] try* Result 92 Not Available [facility] [address] [facility], [place], [address], 01/14/2024 11:32:45 03/22/19 25 03/22/2024 pulse oxime try* Result 95 Not Available [facility] [address], [place], [address], 03/14/2024 11:54:52 05/20/19 25 05/19/2024 pulse oxime try* Result 91% Not Available [facility] [address], [place], [address], 05/17/2024 16:20:55 06/08/19 25 06/07/2024 pulse oxime try* Result 93 Not Available [facility] [address] [facility] [address], [place], [address], 06/04/2024 08:15:20 10/11/1910/10/2024 pulse oxime try* Result 97 Not Available [facility] [address] [facility] [address], [place], [address], 10/10/2024 07:45:39 06/06/19 25 06/01/2024 MRI, shoul georgina, w/o contr ast No observ ation record ed. [facility] [address] [place], [address], 06/05/2024 15:20:13 10/27/1910/26/2024 XR, shoul georgina No observ ation record ed. [address] (Medical Records) [address] [place], [address], 10/27/2024 09:20:23 10/27/1910/26/2024 CT, angio gram, chest + abdom en + pelvi s, w/ contr ast No observ ation record ed. [address] (Medical Records) [address] [place], [address], 10/27/2024 09:20:53 10/28/19 25 10/26/2024 CT, angio gram, chest , w/ contr ast No observ ation record ed. [email or web address] [facility] (Medical Records) [address] [place], [address], 10/27/2024 10:02:41 12/19/19 25 12/18/2024 imagi ng/di agnos tic resul t No observ ation record ed. [email or web address] [facility] (Medical Records) [address] [place], [address], 12/19/2024 08:50:10 01/05/20 25 01/04/2025 XR, chest , 2 view No observ ation record ed. [address] (Medical Records) [address] [facility] [place], [address], 01/04/2025 16:40:25 01/25/20 25 01/24/2025 XR, humer us No observ ation record ed. [facility] (Medical Records) [address] [place] [place], [address], 01/24/2025 16:09:25 01/25/20 25 01/24/2025 XR, shoul georgina No observ ation record ed. [facility] (Medical Records) [address] [place] [place], [address], 01/24/2025 16:09:40 01/25/20 25 01/24/2025 XR, hand, 3 or more view No observ ation record ed. [address] (Medical Records) [address] [place], [address], 01/24/2025 15:51:21 01/25/20 25 01/24/2025 XR, hand, 3 or more view No observ ation record ed. [address] (Medical Records) [address] [place], [address], 01/24/2025 15:51:32 01/25/20 25 01/24/2025 CT, head + brain , w/o contr ast No observ ation record ed. [facility] (Medical Records) [address] [place], [address], 01/25/2025 09:00:43 01/25/20 25 01/24/2025 CT, cervi octavio spine , w/o contr ast No observ ation record ed. [facility] (Medical Records) [address] [facility] [place], [address], 01/25/2025 09:01:14 01/25/20 25 01/24/2025 CT, chest , w/ contr ast No observ ation record ed. [facility] (Medical Records) [address] [facility] [place], [address], 01/25/2025 09:01:41 01/30/20 25 01/29/2025 XR, chest , 2 view No observ ation record ed. [address] (Medical Records) [address] [place], [address], 01/29/2025 06:35:30 02/18/20 25 02/17/2025 imagi ng/di agnos tic resul t No observ ation record ed. [address] (Medical Records) [address] [facility] [place], [address], 02/19/2025 08:13:28 02/18/20 25 02/17/2025 imagi ng/di agnos tic resul t No observ ation record ed. [address] (Medical Records) [address] [place], [address], 02/19/2025 08:19:10 02/21/20 25 02/20/2025 XR, chest , 2 view No observ ation record ed. [facility] (Medical Records) [address] [place], [address], 02/20/2025 14:02:45 02/21/20 25 02/20/2025 CT, head, w/o contr ast No observ ation record ed. [facility] (Medical Records) [address] [place], [address], 02/20/2025 14:03:04 02/21/20 25 02/20/2025 CT, cervi octavio spine , w/o contr ast No observ ation record ed. [facility] (Medical Records) [address] [place], [address], 02/20/2025 14:03:22 02/25/20 25 02/24/2025 XR, chest , 2 view No observ ation record ed. [facility] (Medical Records) [address] [place], [address], 02/26/2025 10:32:09 02/28/20 25 02/27/2025 XR, chest , 2 view No observ ation record ed. [email or web address] (Medical Records) [address] [place], [address], 02/27/2025 15:06:55 Result Notes None recorded. Problems Name Problem SNOMED Code Status Onset Date Resolution Date Notes Provider Name and Address Organization Details Recorded Time Chronic obstructi ve pulmonary disease 22989968 Active 2018 Sheila rainey [facility] 9 15:16:29 Neuropath y 162822574 Active 2018 Sheila rainey [facility] 9 15:16:41 Gout 01219307 Active 2018 Sheila rainey [facility] 9 15:16:48 History of gallstone s 315332139 Active 2018 Sheila rainey [facility] 9 15:17:04 History of deep vein thrombosi s 894915499 Active 2018 s/p IVC filter May Dalton, PASUP [address] [facility], [place], [address], [facility] 9 14:35:19 Harmful pattern of use of alcohol 27631493 Active 2018 Kimberly Coelho NP, S [address] [place] [address], [address], [facility] 9 16:45:28 Tobacco dependenc e syndrome 11475974 Active 2018 Kimberly Coelho NP, S [address] [place] [address], [address], [facility] 9 16:13:47 Tinea corporis 87621090 Active 2023 Cristhian Delgado, [address], [address], [facility] 4 12:10:21 Insomnia 666733308 Active 2023 Cristhian Delgado DO [address] [place] [address], [address], [facility] 4 12:17:44 Secondary periphera l neuropath y 682566 Active 2023 Cristhian Delgado DO [address] [place] [address], [address], [facility] 4 22:16:11 Acute exacerbat ion of chronic obstructi ve pulmonary disease 579180404 Active 2023 HIMA HUERTA [address] [place] [address], [address], [facility] 4 15:05:32 Generaliz ed rash 784457016 Active 2023 HIMA HUERTA [address] [place] [address], [address], [facility] 4 10:59:16 Depressiv e disorder 84658376 Active 2023 HIMA HUERTA [address] [place] [address], [address], [facility] 4 10:26:22 Eczema 72279773 Active 2023 Cristhian Delgado DO [address] [place] [address] [place], [address], [facility] 4 11:50:30 Pain of bilateral hands 57699734920 939609 Active 2023 Cristhian Delgado, DO [address] [place] [address], [address], [facility] 4 11:52:35 Pruritic rash 00444439 Active 2023 Cristhian Delgado, DO [address] [place] [address], [address], [facility] 4 21:26:20 COVID-19 104196589 Active 2024 Cristhian Delgado DO [address] [place] [address], [address], [facility] 5 11:37:01 Nummular eczema 60614840 Active 2024 Cristhian Delgado DO [address] [place] [address], [address], [facility] 5 14:51:23 Dislocati on of shoulder joint 132972476 Active 2024 Cristhian Delgado DO [address] [place] [address], [address], [facility] 5 14:52:22 Dislocati on of shoulder joint 833838185 Active 2024 Cristhian Delgado, DO [address] [place] [address], [address], [facility] 5 14:52:26 Bilateral pain of joint of hands 21603927964 533786 Active 2024 Cristhian Delgado DO [address] [place] [address], [address], [facility] 5 14:53:41 Eczema of lower leg 517464876 Active 2024 Cristhian Delgado DO [address] [place] [address], [address], [facility] 5 16:55:51 Problem Notes None recorded. Medical Equipment None Reported. Allergies Allergen ID Allergen Name Allergen Category Reaction Reaction Severity Criticality Documentation Date Start Date Code Code System Note Provider Name and Address Organization Details Recorded Time 2905 peanut allergeni c extract food,medi cation Not available Not available Not available 05/11/2018 32075 8 [facility] 9 15:14:37 8332 Lyrica medicatio n rash Not available Not available 11/15/20232023 72916 1 RxNorm [facility]bar [facility] 4 10:28:00 8490 raspberry extract food,medi cation Not available Not available Not available 12/29/2023 46884 69 RxNorm HIMA HUERTA [address] [place], [address], [facility] 4 10:47:33 9901 pregabali n medicatio n Not available Not available Not available 01/19/20252024 46307 2 RxNorm Not Available karolyn - External [...] completed Not Available Not Available Not Available [facility] 100,000 unit/gram topical powder 09/16 [...] Updated DateTime 5 171.45 cm 23.6 kg/m2 07562.6 3 g 71 /min 95 % 106/68 mm[Hg] Cristhian Delgado, DO [address] [place], [address] 5 11:20:11 Date Recorded Body height Body mass index (BMI) Body weight Heart rate Oxygen saturation Systolic And Diastolic Provider Name and Address Organization Details Last Updated DateTime 5 171.45 cm 24.4 kg/m2 93581.6 7 g 81 /min 91 % 130/80 mm[Hg] Daphne Ryan [facility] 5 14:36:10 Date Recorded Body height Heart rate Oxygen saturation Systolic And Diastolic Provider Name and Address Organization Details Last Updated DateTime 06/07/2024 171.45 cm 77 /min 93 % 129/60 mm[Hg] Trina Alcantar [facility] 06/07/2024 11:39:05 Date Recorded Body height Body mass index (BMI) Body weight Oxygen saturation Heart rate Systolic And Diastolic Provider Name and Address Organization Details Last Updated DateTime 5 171.45 cm 23.8 kg/m2 91200.2 2 g 97 % 78 /min 112/64 mm[Hg] SAM AWAD [facility] 5 16:15:29 Date Recorded Body height Body mass index (BMI) Body weight Heart rate Oxygen saturation Systolic And Diastolic Provider Name and Address Organization Details Last Updated DateTime 4 171.45 cm 23.6 kg/m2 09666.6 3 g 73 /min 92 % 110/80 mm[Hg] Trina Alcantar [facility] 4 11:13:34 Social History Question Answer Notes LastModified by Organizat ion Details LastModified Time Tobacco Smoking Status Current Every Day Smoker Sheila rainey [facility] 05/11/2018 15:18:01 What Was The Date Of Your Most Recent Tobacco Screening? 06/07/2024 [email or web address] Information not available 06/07/2024 Sex: Unknown Functional [...] 0.5 mL 03/27/19 22 completed Not Available [facility] 08/[facility]/2022 22:39:22 Tdap 08/04/19 22 completed Not Available [facility] 08/15/2022 22:39:22 pneumococcal polysaccharide PPV23 07/18/19 21 completed Not Available [facility] 08/15/2022 22:39:22 influenza, unspecified formulation 04/23/19 17 completed Not Available [facility] 08/15/2022 22:39:22 zoster recombinant 10/03/19 25 completed Cristhian Delgado DO [address] [place] [address], [address] 10/10/2024 16:45:43 Past Encounters Encounter ID Performer Location Encounter Start Date Encounter Closed Date Diagnosis/Indication Diagnosis SNOMED-CT Code Diagnosis ICD10 Code Diagnosis IMO Codes Diagnosis Note Cristhian Delgado DO [facility] [address] [facility] [address] 07/11/2018 15:02:42 07/11/2018 16:21:04 Alcohol dependence 69104066 F10.20 written scripts vivitrol 380 mg IM Q 4 weeks ( pharmacy not located in [facility] ) Chronic ob structive pulmonary disease 77980584 J44.9 Harmful pa ttern of use of alcohol 24487853 F10.10 long discussion to avoid isolation Use senior center, library, social center to seek psychiatri st-pt prefers to do on own look for SMART meetings stay in contact w/positive people in life get outside and walk History of deep vein thrombosis 202278074 Z86.718 on Eliquis Neuropathy 480848688 G62 .9 gabapentin written & faxed 300 mg BID [id number] Cristhian Delgado [facility] [address] [facility] [place] [address] 09/28/2018 13:25:38 09/28/2018 14:06:07 Alcohol dependence 39857115 F10.20 currently in rehab Secondary peripheral neuropathy 619084 G63 2/2 etoh History of deep vein thrombosis 031518991 Z86.718 Tobacco de pendence syndrome 40801986 F17.200 [id number] Cristhian Delgado [facility] [address] [facility] [address] 10/26/2018 14:05:49 10/26/2018 16:00:43 History of deep vein thrombosis 378111914 Z86.718 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 has IVC filter Tobacco de pendence syndrome 25875095 F17.200 no plans to quit Neuropathy 859907764 G62 .9 gabapentin not helpful has low vitamin d will supplement then f.u Harmful pa ttern of use of alcohol 51505598 F10.10 currently sober x 9 days Acute conjunctivitis 537 85641 H10.31 current abx failure consider opth if second round not helpful Vitamin D deficiency 347 97205 E55.9 Onychomyco sis of toenails 831514173 B35.1 Screening procedure 2012 5006 Z13.9 Steatotic liver disease 117304414 K76.0 [id number] Cristhian Delgado [facility] [address] [facility] [address] 01/03/2019 10:26:01 01/03/2019 11:03:12 Secondary peripheral neuropathy 059453 G63 2/2 etoh Physical deconditioning 6638929727 9102 R68.89 Depressive disorder 3548 9007 F32.9 [id number] Cristhian Delgado [facility] [address] [facility] [address] 02/07/2019 13:17:51 02/07/2019 13:59:18 Acute folliculitis 228410738 L73.9 Secondary peripheral neuropathy 486865 G63 2/2 etoh no difference in neuropathy [...] who doesn't visit Vitamin D deficiency 347 58150 E55.9 never received the letter regarding this lab result will send in vitamin d now also take vitamin d3 2000 units after completing this will recheck level in 12 weeks Tobacco user 774890414 Z 72.0 [id number] Cristhian Delgado [facility] [address] [facility], [employer] [place] [address] 04/28/2019 15:03:46 04/28/2019 16:25:32 Chronic obstructive pulmonary disease 92126921 J44.9 acute exacerbati on of copd Secondary peripheral neuropathy 828246 G63 2/2 etoh no difference in neuropathy [...] who doesn't visit Vitamin D deficiency 347 29898 E55.9 completed the macrodose of vitamin d needs to start the vitamin d r Tobacco user 041122529 Z 72.0 Harmful pa ttern of use of alcohol 80394558 F10.10 currently sober again Gout 92964885 M10.9 History of deep vein thrombosis 243063127 Z86.718 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 has IVC filter Neuropathy 765803777 G62 .9 as above Alcohol dependence 04447 003 F10.20 sober Atopic dermatitis 011384 01 L20.9 Acute exac erbation of chronic obstructive pulmonary disease 390828340 J44.1 zmary, pred as above for rash + [place] [id number] Cristhian Delgado [facility] [address] [facility] [place] [employer] [place] [address] 10/25/2019 15:02:33 10/25/2019 15:22:49 Harmful pattern of use of alcohol 85903668 F10.10 still drinking about 1 pint of hard liquor a day no plans on stopping or seeking help with this addiction advised to work on cutting back and drink water instead patient does not seem interested on doing this despite risks to his health will have patient call if he has another convulsio n Chronic ob structive pulmonary disease 39805487 J44.9 breathing is the same per patient not any worse, cough is the same as well Tobacco de pendence syndrome 39019781 F17.200 still smoking not ready to quit, no plans on quitting SARS-CoV-2 140597424 U07 .1 patient currently has a positive diagnosis of COVID told him to monitor symptoms and if he gets very sick again to go back to the hospital [id number] Cristhian Delgado [facility] [address] [facility], [place] [address] 01/03/2020 15:04:00 01/03/2020 16:04:29 Harmful pattern of use of alcohol 56907921 F10.10 still drinking about 2 pint of hard liquor a day did discuss with patient about setting up with a rehab center and working with his advisor patient was open to this idea and gave permission for me to speak with his advisor Alcohol withdrawal 85101 0000 F10.939 patient states every time he stops drinking he gets violently ill so him refuses to stop drinking at this point [id number] Cristhian Delgado [facility] [address] [facility], [place] [address] 03/06/2020 09:10:45 03/06/2020 15:51:21 Harmful pattern of use of alcohol 76604707 F10.10 still drinking about 2 pint of hard liquor a day did discuss with patient about setting up with a rehab center and working with his advisor patient unwilling to stop drinking because of the withdrawal afterwards did discuss in detail with pt that the drinking is contributi ng to his neurologic al issues Chronic ob structive pulmonary disease 11647910 J44.9 breathing is the same per patient not any worse, cough is the same as well does need refill of his inhalers Fall W19.XXXS patient reports he fell due to balance issues, weakness in nabila legs most likely related to his drinking will set him up with Dr. Aldana again for eval Injury of head 67369927 S09.90XS no LOC and CT at hospital showed no acute changes MRI done in april, will not need another MRI History of deep vein thrombosis 365086929 Z86.718 was on eliquis but stopped to do hx of brain bleed no ride to the hospital so he is unwilling to do a fu US to assess chronic DVT due to brain bleed because of blood thinner, he should not be on eliquis at this time but should have US to assess [id number] Cristhian Delgado [facility] [address] [place] [address], [place] [address] 04/19/2020 08:38:20 04/22/2020 15:44:19 [id number] Cristhian Delgado [facility] [address] [facility], [place] [address] 06/12/2020 14:07:08 06/12/2020 15:18:50 Harmful pattern of use of alcohol 89000861 F10.10 still drinking about 2 pint of hard liquor a day did discuss with patient about setting up with a rehab center and working with his advisor patient unwilling to stop drinking because of the withdrawal afterwards did discuss in detail with pt that the drinking is contributi ng to his neurologic al issues Chronic ob structive pulmonary disease 69776719 J44.9 breathing is the same per patient not any worse, cough is the same as well Neuropathy 170718136 G62 .9 will try on the 800 mg qd as patient said this was effective will slowly tirtate up the medication dosage [id number] Cristhian Delgado [facility] [address] [facility], [place] [address] 04/11/2021 14:50:50 04/11/2021 16:21:09 Chronic obstructive pulmonary disease 72012132 J41.0 breathing is the same per patient not any worse, cough is the same as well Alcohol withdrawal 66835 0000 F10.931 has not had a drink in 1 mo but does plan to drink again though per patient in moderation recommend ed to not drink at all Secondary peripheral neuropathy 875986 G63 restarted gabapentin Harmful pa ttern of use of alcohol 85930476 F10.121 monitoring progress with drinking Pain of le ft shoulder joint [id number] 8975682 M25.512 improving with at home PT [id number] Cristhian Delgado [facility] Internal Medicine [address], [place] [address] 09/17/2023 10:23:16 09/17/2023 11:04:03 Depression screening 216583772 Z13.31 SCREENING NEGATIVE Harmful pa ttern of use of alcohol 78082123 F10.121 on naloxone campral buspar zoloft Gout 72598800 M10.9 quiet now Neuropathy 926629668 G62 .9 had been on gabapentin Chronic ob structive pulmonary disease 55645082 J41.0 he is stable on the inhalers [id number] Cristhian Delgado [facility] Internal Medicine [address],[place] [address] 10/18/2023 11:40:03 10/18/2023 12:58:27 Chronic obstructive pulmonary disease 94560407 J41.0 he is stable on the inhalers Harmful pa ttern of use of alcohol 58320034 F10.121 on naloxone campral buspar zoloft Tinea corporis 12720389 B35.4 between legs History of deep vein thrombosis 200086012 Z86.718 recurrent Insomnia 431341064 G47.0 0 [id number] Cristhian Delgado [facility] Internal Medicine [address],[place] [address] 11/30/2023 10:27:17 11/30/2023 15:30:22 Acute exacerbation of chronic obstructive pulmonary disease 542835484 J44.1 start on pred and z radha Chronic ob structive pulmonary disease 46701760 J41.0 needs refiil [id number] Cristhian Delgado [facility] Internal Medicine [address], [place] [address] 12/29/2023 10:02:26 12/29/2023 15:40:20 Pre-surgery evaluation 096698719 Z01.818 The patient was seen in the office today for pre-op evaluation . All medical conditions on patient's problem list were addressed and are currently stable, no interventi on needed at this time. Based on history and physical performed, the patient is cleared for surgery. Chronic ob structive pulmonary disease 97101053 J41.0 mild exacerbati oncan start prednisone taper after surgery [id number] Cristhian Delgado [facility] Internal Medicine [address],[place] [address] 01/19/2024 10:45:59 01/19/2024 11:55:43 Acute exacerbation of chronic obstructive pulmonary disease 294315915 J44.1 seems stable now now acute changess Chronic ob structive pulmonary disease 50424338 J41.0 he is stable on the inhalers Neuropathy 237378288 G62 .9 had been on gabapentin Eczema 55029983 L30.9 Pain of bi lateral hands 0404598292 5994169 M79.642 M79.641 [id number] Cristhian Delgado [facility] Internal Medicine [address], [place] [address] 01/17/2024 09:44:31 01/17/2024 11:46:28 Generalized rash 797581413 R21 start on combinatio n treat of pred and anti-funga lhas a f/u on 01/18 with MB in officereco mmended him evaluate at that timeskin culture was negative, no staph infection [id number] Cristhian Delgado [facility] Internal Medicine [address],[place] [address] 03/22/2024 11:00:25 03/22/2024 11:45:12 Chronic obstructive pulmonary disease 12520899 J41.0 he is stable on the inhalers COVID-19 177335535 U07.1 on medrol and azith getting better Acute exac erbation of chronic obstructive pulmonary disease 945300369 J44.1 seems stable now now acute changesdoi ng bettergive n spacer [id number] Cristhian Delgado [facility] Internal Medicine [address],[place] [address] 05/19/2024 14:12:21 05/19/2024 15:20:28 Chronic obstructive pulmonary disease 69930152 J41.0 he is stable on the inhalers Nummular eczema 04269543 L30.0 Dislocatio n of shoulder joint 023077621 S43.006D Bilateral pain of joint of hands 9676836106 3625903 M25.541 M25.542 Screening for malignant neoplasm of colon 948661449 Z12.11 Chronic bronchitis 00217 004 J42 Neuropathy 537071794 G62 .9 had been on gabapentin [id number] [facility] [address] [facility] [address],[place] [address] 06/07/2024 11:29:13 06/07/2024 12:15:01 Chronic obstructive pulmonary disease 21791756 J41.0 he is stable on the inhalers Dislocatio n of shoulder joint 837073643 S43.006D Nummular eczema 09272503 L30.0 Depression screening 171 922631 Z13.31 SCREENING NEGATIVE Bilateral pain of joint of hands 7856513784 5100222 M25.541 M25.542 Acute exac erbation of chronic obstructive pulmonary disease 478210346 J44.1 seems stable now now acute changesdoi ng bettergive n spacer [id number] [facility] [address] [facility] [address],[place] [address] 10/10/2024 15:56:56 10/11/2024 10:30:30 Depression screening 056358626 Z13.31 SCREENING NEGATIVE Harmful pa ttern of use of alcohol 99721393 F10.121 on naloxone campral buspar zoloft Chronic ob structive pulmonary disease 63259507 J41.0 he is stable on the inhalers Eczema of lower leg 7623 87648 L30.9 9847780887 will use cream Secondary peripheral neuropathy 679978 G62.89 will cont gabapentin but consider change to duloxetine Health Concerns Section Related Observation LastModified by Organization Detai ls LastModified Time None Recorded Concern Status LastModified by Organization Details LastModified Time None Recorded Advance Directives Directive None Recorded Payers Insurance Date Sequence Insurance Name Policy Number Policy Ruiz Covered Member ID Ruiz Member ID Guarantor Name 05/19/2024 1 [facility] [facility] [facility] - DOS PRIOR TO 2022 - DUAL ELIGIBLE (MEDICARE REPLACEMENT/ADV ANTAGE - HMO) Edgardo Sally [id number] Edgardo Zavala 05/19/2024 1 [place]: [employer] Edgardo Sena Sally [id number] Edgardo Zavala 01/16/2025 1 [facility] [facility] [facility] - DOS ON OR AFTER 2022 - MEDICARE [place]VANTAGE [place] (MEDICARE REPLACEMENT/ADV ANTAGE - PPO) Edgardo Zavala [id number] Edgardo Zavala 05/19/2024 1 [place] PRIOR TO 2022 - FORMERLY [facility] (MEDICAID) Edgardo Zavala [id number] Edgardo Zavala Notes Date Note Type Note Provider Name a nd Address Organization Details Recorded Time 4 text/html ROS as noted in the HPI here for rechkrelates that had a rsh for mult weeks creams not helpfulstill smokeshaving a prob with the rash not going away Cristhian Delgado DO [address] [place] [address], [phone], [facility] Internal Medicine 01/19/2024 11:54:47 5 text/html ROS as noted in the HPI here for rechk of his lungs since having covid was seen twice in ER and actually signed out AMA on second visit was told to stay due to lower O2 sat but went hometoday O2 sat 95% Cristhian Delgado DO [address] [place] [address], [phone], [facility] Medicine 03/22/2024 11:38:17 5 text/html ROS as noted in the HPI hwere for rechk right shoulder is pretty bad as of late since the dislocation episode back in januaryrelates that he has also had a problem with his short term memoryhas noticed for several monthsals o the neuropathy has been worse Cristhian Delgado DO [address] [place], [address], [facility] Internal Medicine 05/19/2024 15:07:19 5 text/html Care [...] on his motorcycle again Cristhian Delgado DO [address] [place] [address], [phone], [facility] Internal Medicine 06/07/2024 12:12:26 5 text/html Care [...] on his motorcycle again Cristhian Delgado DO [address] [place] [address], [phone], [facility] 10/10/2024 16:56:27
--- OUTSIDE RECORDS SUMMARY | 2025-02-27 15:22 | XMS_ITS | Clinical Summary ---
Author Organization [facility] Address [address] [place] [address] Phone Care Team Providers Care Hotel Registration Clerk Name Role Phone Cristhian Delgado DO Primary Care Provider [phone] Allergies Active Allergy Reactions Criticality Noted Date [...] - 12/21/2024 2:58 PM EDT Hospital Encounter [facility] [address] [place] [address] Rai Gonzalez MD Goebel, Mathew, MD Jones, Christopher, MD Rasul, Yar M, MD Mohani, Priya, MD Hypoxia (Primary Dx); ETOH abuse; Chest pain, unspecified type; Viral pneumonia; Acute hypoxic respiratory failure ([facility] V24, [facility] V28) Discharge Disposition: Left Against Medical Advice from Last 3 Months Surgical History Surgery Date Site/Laterality Comments IVC FILTER Medical History Medical History Date Comments COPD (chronic obstructive pulmonary disease) ( S/HCC V24, [facility] V28) Neuropathy Social History Tobacco [...] MOLECULAR STUDY Routine 12/21/2024 1:59 AM EDT [id number], RSV, FLU A AND B QUALITATIVE RT-PCR, [...] Final Result [facility] [address] [place] [address], [place] [phone] * (ABNORMAL) Drug abuse screen 8a panel, urine (12/21/2024 11:46 AM EDT) [facility] Amphetamine Screen, Ur Negative Negative LAB CHEMISTRY METHOD 12:28 PM EDT [facility] Comment:Certain OTC medicati ons containing ephedrine, phenylephrine, pseudoephedrine and phenylpropanolamine can cause false positive results. Barbiturate Screen, Ur Positive(A ) Negative LAB CHEMISTRY METHOD 12:28 PM EDT [facility] Benzodiazepine Screen, Ur Negative Negative LAB CHEMISTRY METHOD 12:28 PM EDT [facility] Cocaine Screen, Ur Negative Negative LAB CHEMISTRY METHOD 12:28 PM EDT [facility] Opiate Screen, Ur Negative Negative LAB CHEMISTRY METHOD 12:28 PM EDT [facility] Cannabinoid (THC) Screen, Ur Negative Negative LAB CHEMISTRY METHOD 12:28 PM EDT [facility] Comment:Specimens from patie nts [...] Resul t [facility] [address] [place] [address], * ECG 12 lead (12/21/2024 6:33 AM EDT) Only the most recent of2 resultswithin the time period is included. Ventricular Rate ECG 77 BPM GEMUSE Atrial Rate 77 BPM GEMUSE P-R Interval 116 ms GEMUSE QRS Duration 130 ms GEMUSE Q-T Interval 416 ms GEMUSE QTc 470 ms GEMUSE P Wave [place] 35 degrees GEMUSE R [place] -68 degrees GEMUSE T [place] 31 degrees GEMUSE ECG Interpretation Normal sinus [...] [facility] Lymphocytes Absolute 1.15 1.00 - 5.00 K/mcL LAB HEMETOLOGY METHOD 12/21/2024 6:31 AM [facility] Monocytes Absolute 0.62 0.20 - 1.00 K/[facility] LAB HEMETOLOGY METHOD 12/21/2024 6:31 AM EDT [facility] Eosinophils Absolute 0.12 0.00 - 0.50 K/[facility] HEMETOLOGY METHOD 12/21/2024 6:[facility] Basophils Absolute 0.03 0.00 - 0.20 K/[facility] HEMETOLOGY METHOD 12/21/2024 6:31 AM EDT [facility] Immature Granulocytes Absolute 0.02 0.00 - 0.03 K/[facility] HEMETOLOGY METHOD 12/21/2024 6:31 AM [facility] Blood Venous blood specimen / Unknown Venipuncture / Unknown 12/21/2024 5:09 AM EDT 12/21/2024 5:59 AM EDT us Boom Nagel MD LAB BLOOD ORDERABLES Final Result [facility] [address] [place] [address], * Basic metabolic panel (12/21/2024 5:09 AM EDT) Sodium 135 133 - 145 mmol/L LAB CHEMISTRY METHOD 12/21/2024 7:41 AM [facility] Potassium 4.0 3.5 - 5.5 mmol/L LAB CHEMISTRY METHOD 12/21/2024 7:41 AM [facility] Chloride 98 96 - 110 mmol/L LAB CHEMISTRY METHOD 12/21/2024 7:41 AM [facility] CO2 29 21 - 32 mmol/L LAB CHEMISTRY METHOD 12/21/2024 7:41 AM [facility] Anion Gap 8 3 - 11 LAB CHEMISTRY METHOD 12/21/2024 7:41 AM [facility] Glucose 94 70 - 100 mg/dL LAB CHEMISTRY METHOD 12/21/2024 7:41 AM EDT [facility] BUN 15 5 - 25 mg/dL LAB CHEMISTRY METHOD 12/21/2024 7:41 AM EDT [facility] Creatinine 0.72 0.70 - 1.30 mg/dL LAB CHEMISTRY METHOD 12/21/2024 7:41 AM T [facility] eGFR 102 >=60 [...] LAB CHEMISTRY METHOD 12/21/2024 7:41 AM T [facility] Blood Venous blood specimen / Unknown Venipuncture / Unknown 12/21/2024 5:09 AM EDT 12/21/2024 5:59 AM EDT us Boom Nagel MD LAB BLOOD ORDERABLES Final Result [facility] [address] [place] [address], * Respiratory virus panel molecular study (12/21/2024 1:59 AM EDT) Pathologist [facility] Adenovirus Detection by PCR Not Detected Not Detected LAB MICROBIOLOGY METHOD 12/21/2024 2:56 AM EDT [facility] Influenza A PCR Not Detected Not Detected LAB MICROBIOLOGY METHOD 12/21/2024 2:56 AM T [facility] Influenza B PCR [...] AM EDT Testing was performed using the [employer] Respiratory Pathogen PCR Assay. All results must [...] MICROBIOLOGY - GENERAL OR DERABLES Final Result [facility] [address] [place] [address], * [id number], RSV, Influenza A and B qualitative RT-PCR [...] ORDAnh ZARCO Final Result Performing Organization Address City/[facility]/ZIP Co de Phone Number [facility] [address] [place] [address], [place] [phone] * B-Type Natriuretic Peptide (BNP) (12/20/2024 9:27 PM EDT) BNP 20 <=100 pcg/mL LAB CHEMISTRY METHOD 12/20/2024 10:12 PM EDT [facility] Blood Venous blood specimen / Unknown Venipuncture / Unknown 12/20/2024 9:27 PM EDT 12/20/2024 9:38 PM EDT Rai Gonzalez MD LAB BLOOD ORDERABLES Final Resul t Performing Organization Address [facility]/ZIP Co de Phone Number [facility] [address] [place] [address], [place] [phone] * CT Angio Chest wo and/or w [...] angiography chest with contrast. 3D Postprocessing. Comparison: CT/PA/SR - CHEST ANGIOGRAPHY CT - 03/21/2023 08:08 [...] angiography chest with contrast. 3D Postprocessing. Comparison: CT/PA/SR - CHEST ANGIOGRAPHY CT - 03/21/2023 08:08 [...] Resul t [facility] [address] [place] [address], * XR Chest 2 Views (12/20/2024 8:46 PM EDT) Anatomical Region Laterality Modality Body Radiographic Mirella ging 12/20/2024 10:4 8 PM EDT Impressions 12/20/2024 10:48 PM EDT Patchy bilateral infiltrates. This document has been electronically signed by: Temo Llanos MD on 12/20/2024 22:48:02 Narrative 12/20/2024 10:48 PM EDT INDICATION: chest pain 2 view chest x-ray Comparison: DX/PA/SR - XR CHEST 2 VW - 03/17/24 14:46 EST Findings: No consolidation or effusion. Normal size heart. No acute fracture. Patchy bilateral infiltrates. Procedure Note Temo Llanos MD - 12/20/2024 INDICATION: chest pain 2 view chest x-ray Comparison: DX/PA/SR - XR CHEST 2 VW - 03/17/24 [...] ORDERABLES Final Resul t Performing Organization Address City/[facility] de Phone Number [facility] [address] [place] [address], [place] [phone] * Protime-INR (12/20/2024 7:52 PM EDT) James [...] ORDERABLES Final Resul t Performing Organization Address [facility]/ZIP Co de Phone Number [facility] [address] [place] [address], [place] [phone] * (ABNORMAL) Ethanol (12/20/2024 7:52 PM EDT) Ethanol Level 211(H) 0 - 10 mg/dL LAB CHEMISTRY METHOD 12/20/2024 8:37 PM [facility] Blood Venous blood specimen / Unknown Venipuncture / Unknown 12/20/2024 7:52 PM EDT 12/20/2024 8:06 PM EDT us Rai Gonzalez MD LAB BLOOD ORDERABLES Final Resul t [facility] [address] [place] [address], * (ABNORMAL) Comprehensive Metabolic Panel (CMP) (12/20/2024 7:52 PM EDT) Pathologist [facility] Sodium 141 133 - 145 mmol/L LAB CHEMISTRY METHOD 12/20/2024 8:37 PM [facility] Potassium 3.4(L) 3.5 - 5.5 mmol/L LAB CHEMISTRY METHOD 12/20/2024 8:37 PM [facility] Chloride 100 96 - 110 mmol/L LAB CHEMISTRY METHOD 12/20/2024 8:37 PM [facility] CO2 31 21 - 32 mmol/L LAB CHEMISTRY METHOD 12/20/2024 8:37 PM [facility] Anion Gap 10 3 - 11 LAB CHEMISTRY METHOD 12/20/2024 8:37 PM [facility] Glucose 128(H) 70 - 100 mg/dL LAB CHEMISTRY METHOD 12/20/2024 8:37 PM [facility] BUN 13 5 - 25 mg/dL LAB CHEMISTRY METHOD 12/20/2024 8:37 PM [facility] Creatinine 0.81 0.70 - 1.30 mg/dL LAB CHEMISTRY METHOD 12/20/2024 8:37 PM EDT [facility] eGFR 98 >=60 mL/min/1. 73m2 LAB CHEMISTRY METHOD 12/20/2024 8:37 PM EDT [facility] Comment:Calculation based [...] LAB CHEMISTRY METHOD 12/20/2024 8:37 PM T [facility] Blood Venous blood specimen / Unknown Venipuncture / Unknown 12/20/2024 7:52 PM EDT 12/20/2024 8:06 PM EDT us Rai Gonzalez MD LAB BLOOD ORDERABLES Final Resul t [facility] [address] [place] [address], [place] [phone] from Last 3 Months Insurance [facility] MEDIC[facility] Member Subscriber Plan / Payer (Ef fective 2023-Present) Name:GIO ZEE Relation to Subscriber:Self Name:SallyGio Payer ID:[id number] Group ID:[id number] Type:Not on file Address: [place] [address] [address] [place] [phone] Advance Directives Documents on File Type Date Recorded 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 [place], [place] PCP - General Internal Medicine 02/01/24
--- OUTSIDE RECORDS SUMMARY | 2025-02-27 15:22 | XMS_ITS | Clinical Summary ---
Author Organization [facility] Address [address] [place] [address] Care Team Providers Care Level Vial Curvature Gauger Name Role Phone Cristhian Delgado MD Primary Care Provider [phone] Encounters Date Type Department Care Team Description 12/05/2024 Travel 12/04/2024 10:49 PM EDT - 12/05/2024 2:40 AM EDT Emergency [facility] Emergency Department [address] [place] [address] Wendy Hardin MD Bronchitis (Primary [...] Marino Mcknight on 12/05/2024 9:51 AM on [id number] Narrative 12/05/2024 9:51 AM EDT Indications: SOB [...] Marino Mcknight on 12/05/2024 9:51 AM on [id number] us Wendy Hardin MD IMG DIAGNOSTIC IMAGING ORDERABLE S Final Result * ECG 12 lead, to be obtained, dyspnea (12/04/2024 11:56 PM EDT) Ventricular Heart Rate 92 BPM EKG BUR MUSE [place] Interval 134 ms EKG BUR MUSE QRSD Interval 130 ms EKG BUR MUSE QT Interval 347 ms EKG BUR MUSE QTC Interval 430 ms EKG BUR MUSE P [place] 69 degrees EKG BUR MUSE R [place] -78 degrees EKG BUR MUSE T Wave [place] 36 degrees EKG BUR MUSE 12/04/2024 11:5 [...] ECG ORDERABLES Final Result Performing Organization Address City/[facility]/ZIP Co de Phone Number EKG BUR MUSE [address] [place] [address] * Gold Top (12/04/2024 11:56 PM EDT) Gold Top Tube Received 12/05/2024 1:01 AM EDT [facility] Blood PERIPHERAL BLOOD SPECIMEN / Unknown Venipuncture / Unknown 12/04/2024 11:56 PM EDT 12/05/2024 12:07 AM EDT us Wendy Hardin MD LAB BLOOD ORDERABLES Final Resul t Performing Organization Address City/[facility]/ZIP Co de Phone Number [facility] [address] [place] [phone], [place] * Blue Top (12/04/2024 11:56 PM EDT) [facility] Blue Top Tube Received 12/05/2024 1:01 AM EDT [facility] Blood PERIPHERAL BLOOD SPECIMEN / Unknown Venipuncture / Unknown 12/04/2024 11:56 PM EDT 12/05/2024 12:07 AM EDT us Wendy Hardin MD LAB BLOOD ORDERABLES Final Resul t Performing Organization Address City/[facility]/ZIP Co de Phone Number [facility] [address] [place] [address], [place] * Troponin (once) (12/04/2024 11:51 PM EDT) [facility] Troponin T HS 12 <=19 ng/L 12/05/2024 12:29 AM EDT [facility] Blood PERIPHERAL BLOOD SPECIMEN / Unknown Venipuncture / Unknown 12/04/2024 11:51 PM EDT 12/05/2024 12:05 AM EDT us Wendy Hardin MD LAB BLOOD ORDERABLES Final Resul t Performing Organization Address City/[facility]/ZIP Co de Phone Number [facility] [address] [place] [address], [place] * (ABNORMAL) CBC and Differential (12/04/2024 11:51 PM EDT) [facility] WBC 7.54 3.90 - 10.80 K/uL 12/05/2024 12:07 AM [facility] RBC 3.66(L) 4.42 - 5.73 M/uL 12/05/2024 12:07 AM [facility] Hemoglobin 11.0(L) 14.0 - 17.3 g/dL 12/05/2024 12:07 AM [facility] Hematocrit 33.6(L) 40.1 - 51.0 % 12/05/2024 12:07 AM [facility] MCH 30.1 25.6 - 32.2 pg 12/05/2024 12:07 AM [facility] MCHC 32.7 32.0 - 36.0 g/dL 12/05/2024 12:07 AM [facility] MCV 92 83 - 96 fL 12/05/2024 12:07 AM [facility] RDW 16.8(H) 11.5 - 14.0 % 12/05/2024 12:07 AM [facility] Platelet Count 212 154 - 369 K/uL 12/05/2024 12:07 AM [facility] Neutrophil 74.7 % 12/05/2024 12:07 AM [facility] Lymphocyte 9.5 % 12/05/2024 12:07 AM [facility] Monocyte 13.9 % 12/05/2024 12:07 AM [facility] Eosinophil 0.9 % 12/05/2024 12:07 AM [facility] Basophil 0.5 % 12/05/2024 12:07 AM [facility] Immature Granulocyte ([place], Myelo, Promyelocyte) 0.5 % 12/05/2024 12:07 AM [facility] Absolute Neutrophil Count 5.62 1.68 - 7.99 K/uL 12/05/2024 12:07 AM [facility] Absolute Immature Granulocyte ([place], Myelo, Promyelocyte) 0.04 0.00 - 0.09 K/uL 12/05/2024 12:07 AM [facility] Absolute Lymphocyte Count 0.72 0.66 - 4.75 K/uL 12/05/2024 12:07 AM [facility] Absolute Monocyte Count 1.05 0.16 - 1.40 K/uL 12/05/2024 12:07 AM [facility] Absolute Eosinophil Count 0.07 0.00 - 0.60 K/uL 12/05/2024 12:07 AM [facility] Absolute Basophil Count 0.04 0.00 - 0.32 K/uL 12/05/2024 12:07 AM [facility] Blood PERIPHERAL BLOOD SPECIMEN / Unknown Venipuncture / Unknown 12/04/2024 11:51 PM EDT 12/05/2024 12:05 AM EDT us Wendy Hardin MD LAB BLOOD ORDERABLES Final Resul t Performing Organization Address City/[facility]/ZIP Co de Phone Number [facility] [address] [place] [address], * NT-proBNP (12/04/2024 11:51 PM EDT) Pathologist [facility] NT-ProBNP 312 <900 pg/mL 12/05/2024 12:29 AM EDT [facility] Blood PERIPHERAL BLOOD SPECIMEN / Unknown Venipuncture / Unknown 12/04/2024 11:51 PM EDT 12/05/2024 12:05 AM EDT us Wendy Hardin MD LAB BLOOD ORDERABLES Final Resul t Performing Organization Address [facility] Co de Phone Number [facility] [address] [place] [phone], [place] * (ABNORMAL) Basic Metabolic Panel (12/04/2024 11:51 PM EDT) [facility] Sodium 132(L) 135 - 146 mmol/L 12/05/2024 12:29 AM [facility] Potassium 4.5 3.4 - 5.2 mmol/L 12/05/2024 12:29 AM [facility] Chloride 96(L) 98 - 110 mmol/L 12/05/2024 12:29 AM [facility] Total CO2/Bicarbonat e 24 24 - 32 mmol/L 12/05/2024 12:29 AM [facility] Anion Gap 12 2 - 15 mmol/L 12/05/2024 12:29 AM [facility] BUN 20 7 - 24 mg/dL 12/05/2024 12:29 AM [facility] Creatinine, Blood 1.20 0.60 - 1.30 mg/dL 12/05/2024 12:29 AM [facility] Glucose, Blood 130(H) 50 - 100 mg/dL 12/05/2024 12:29 AM [facility] Calcium 9.4 8.5 - 10.5 mg/dL 12/05/2024 12:29 AM [facility] Estimated GFR(CKD-EPI) 68 mL/min/BSA 12/05/2024 12:29 AM EDT [facility] Blood PERIPHERAL BLOOD SPECIMEN / Unknown Venipuncture / Unknown 12/04/2024 11:51 PM EDT 12/05/2024 12:05 AM EDT us Wendy Hardin MD LAB BLOOD ORDERABLES Final Resul t Performing Organization Address [facility]/ZIP Co de Phone Number [facility] [address] [place] [phone], * Covid/Flu/RSV (Rapid) (12/04/2024 11:47 PM EDT) Coronavirus SARS-CoV-2 Negative Negative 12/05/2024 12:50 AM EDT [facility] Influenza A Negative Negative 12/05/2024 12:50 AM EDT [facility] Influenza B Negative Negative 12/05/2024 12:50 AM EDT [facility] RSV by PCR Negative Negative 12/05/2024 12:50 AM EDT [facility] Respiratory SWAB OF INTERNAL NOSE / Unknown Collection / Unknown 12/04/2024 11:47 PM EDT 12/04/2024 11:56 PM EDT Narrative [facility] - 12/05/2024 12:50 AM EDT Test performed with [employer] GeneXpert SARS-CoV-2 PCR assay, which has received emergency use authorization (EUA) by the U.[place]. Food and Drug Administration. Negative results do not preclude SARS-CoV-2 infection and should not be used as the sole basis for treatment or other patient management decisions. us Wendy Hardin MD BODY FLUIDS AND STOOLS ORDERABLE S Final Result Performing Organization Address [facility]/ZIP Co de Phone Number [facility] [address] [place] [phone], from Last 3 Months Insurance [facility] Care Teams Level Vial Curvature Gauger Relationship Specialty Start Date End Date Cristhian Delgado MD [address] [place] [address] [place] [address] PCP - General Internal Medicine 12/04/24
--- OUTSIDE RECORDS SUMMARY | 2025-02-27 15:22 | XMS_ITS | Data Portability ---
Author Organization [facility], Main Office Address [address] [facility], [address] [place] [address] Care Team Providers Care Outcomes Specialist Name Role Phone LAM BARAJAS - [...] deep vein thrombosis of lower extremitie s [id number] Active 2017 IVC FILTER IN 2017 and bilateral thrombolys is SHELBI STREETER [address] [facility], [address], [place], [address] [place] [address] 8 12:36:34 Alcohol withdrawal delirium 8672429 Active [address] [facility] 8 10:43:30 Chronic obstructiv e pulmonary disease 32769769 Active [address] [facility] 8 10:43:38 Aspiration pneumonia 217429988 Active [address] [facility] 8 10:43:47 Urinary tract infectious disease 33081571 Active [address] [facility] 8 10:44:01 Tobacco dependence syndrome 73233561 Active [address] [facility] 8 10:44:11 Peripheral nerve disease 796569871 Active 2017 Viridiana Miller brigid, [facility] 8 10:44:19 Anemia 816378833 Active 2017 Viridiana rainey, [facility] 8 10:44:24 Thrombocyt openic disorder 116323849 Active [address] , [address], [place], [address], [facility] 8 12:35:04 Chronic hepatitis 19158181 Active [address], [address], [place], [address], [facility] 8 12:35:27 Alcohol dependence 68535091 Active 2017 Giovani Juarez MD [address] [facility], [address], [place], [address], [facility] 8 12:06:43 Left upper quadrant pain 348543612 Active 2017 SHELBI Daly [address] , [address], [place], [address], [facility] 8 15:19:12 Cellulitis of buttock 68483239 Active 2022 ELIZABETH JACKSON NP [address] [facility], [address], [place], [address], [facility] 3 13:40:37 Harmful pattern of use of alcohol 60779880 Active 2022 ELIZABETH JACKSON NP [address], [address], [place], [address], [facility] 3 13:41:13 Open wound of buttock 258046320 Active 2022 ELIZABETH JACKSON NP [address], [address], [place], [address], [facility] 3 13:43:26 Problem Notes None recorded. Medical Equipment None Reported. Allergies Allergen ID Allergen Name Allergen Category Reaction Reaction Severity Criticality Documentation Date Start Date Code Code System Note Provider Name and Address Organization Details Recorded Time 50090 peanut allergeni c extract food,medi cation Not available Not available Not available 10/15/2022 80375 8 RxNorm peanu t butte r, facia l tere JACKSON NP [address] [facility], [address], [place], [address], [facility] 3 13:39:42 34557 raspberry extract food,medi cation Not available Not available Not available 10/15/2022 65039 69 RxNorm facia l tere JACKSON NP [address] [facility], [address], [place], [address], [facility] 3 13:40:02 Vitals Date Recorded Heart rate Respiratory rate Body temperature Systolic And Diastolic Provider Name and Address Organization Details Last Updated DateTime 10/15/2022 73 /min 18 /min 98.3 [degF] 91/55 mm[Hg] ELIZABETH JACKSON NP [address] [facility], [address], [place], [address], [facility] 3 13:33:48 Date Recorded Body temperature Oxygen saturation Heart rate Systolic And Diastolic Provider Name and Address Organization Details Last Updated DateTime 10/19/2022 98.3 [degF] 94 % 73 /min 91/55 mm[Hg] Cecilia Tucker MD [address] [facility], [address], [place], [address] , [facility] 3 06:30:21 Date Recorded Body weight Heart rate Respiratory rate Body temperature Oxygen saturation Systolic And Diastolic Provider Name and Address Organization Details Last Updated DateTime 3 36224.7 2 g 73 /min 18 /min 98.3 [degF] 94 % 91/55 mm[Hg] Violette Newell NP [address] [facility], [address], [place], [address], [facility] 3 11:10:43 Date Recorded Body weight Heart rate Respiratory rate Body temperature Oxygen saturation Systolic And Diastolic Provider Name and Address Organization Details Last Updated DateTime 3 87115.7 2 g 73 /min 18 /min 98.3 [degF] 94 % 91/55 mm[Hg] Violette Newell, ARN[place] [address], [address], [place], [address], [facility] 3 12:59:44 Date Recorded Body weight Heart rate Respiratory rate Body temperature Oxygen saturation Systolic And Diastolic Provider Name and Address Organization Details Last Updated DateTime 3 67904.7 2 g 73 /min 18 /min 98.3 [degF] 94 % 91/55 mm[Hg] Violette Newell, [place] [address], [address], [place], [address], [facility] 3 10:56:55 Social History Question Answer Notes LastModified by [email or web address] Details LastModified Time Tobacco Smoking Status Current Every Day Smoker Viridiana Miller brigid, [facility] 05/19/2017 10:55:27 Do You Have An Advance Directive? Yes [email or web address] Information not available 10/15/2022 How Many Years Have You Consumed Alcohol? 44 Information not available 05/19/2017 What Is Your Code Status? Full Code [email or web address] Information not available 10/15/2022 Which Illicit Or Recreational Drugs Have You Used? Marijuana [email or web address] Information not available 10/15/2022 How Many Days In The Past Year Have You Had A Heavy Drinking Consumption (4+ Female, 5+ Male)? 365 Drinks 1 Pint Of [place] And 2 Nips/day, Longest Period Of Sobriety 6 Mos Information not available 05/19/2017 Do You Have A Medical Power Of Locomotive Inspector? Yes Information not available 05/19/2017 What Was The Date Of Your Most Recent Tobacco Screening? 10/15/2022 [email or web address] Information not available 10/15/2022 How Much Tobacco Do You Smoke? 1 PPD Information not available 05/19/2017 How Many Years Have You Smoked Tobacco? 40 Information not available 05/19/2017 Sex: Unknown Functional Status Question Answer Note LastModified by Organizat ion Details LastModified Time Do you use any illicit or recreational drugs? Yes [email or web address] Information not available 10/15/2022 What is your level of alcohol consumption? Heavy Information not available 05/19/2017 Mental Status None recorded. Family History Nothing Reported Notes:N/C Medical History No medical history recorded. Immunizations Vaccine Type Date Status Note Provider Nam e and Address Organization Details Recorded Time COVID-19 vaccine, vector-nr, rS-Ad26, PF, 0.5 mL 2 completed [facility] 10/22/2022 16:48:27 Tdap 2 completed [facility] 10/22/2022 16:48:42 pneumococcal polysaccharide PPV23 1 completed [facility] 05/27/2023 13:19:59 influenza, unspecified formulation 3 completed [facility] 05/27/2023 13:21:04 influenza, unspecified formulation 4 completed [facility] 05/27/2023 13:21:19 SARS-COV-2 (COVID-19) vaccine, UNSPECIFIED 3 completed [facility] 05/27/2023 13:21:41 Past Encounters Encounter ID Performer Location Encounter Start Date Encounter Closed Date Diagnosis/Indication Diagnosis SNOMED-CT Code Diagnosis ICD10 Code Diagnosis IMO Codes Diagnosis Note [id number] [address] [place] [address] 05/19/2017 10:32:28 05/25/2017 14:07:44 Bilateral deep vein thrombosis of lower extremities 084417787 I82.493 See HPIs/p IVC filter Dec, s/p EKOS catheter thrombolys is 3/2Eliquis 10 mg BID until 05/22 then 5 mg BIDMonitor for increase in pain/edema PT/OT eval and treat Alcohol wi thdrawal delirium 0741338 F10.231 Hx of heavy alcohol use with DTs in hospitalRi speridone 0.25 mg TIDThiamin e 100 mg dailyFolic acid 1 mg dailyMonit or moodNEG consult prn Aspiration pneumonia 422 996961 J69.0 Augmentin to complete courseAdd probioticA spiration precaution sSLP eval and treat Urinary tr act infectious disease 20938994 N30.00 Complete antibiotic as aboveMonit or sxs Chronic ob structive pulmonary disease 52882711 J41.8 Duonebs prnSupplem ental O2 prnMonitor respirator y status Tobacco de pendence syndrome 96288081 F17.210 Nicotine patchEncou rage smoking cessation Peripheral nerve disease 830873125 G64 Secondary to ETOH abuseMonit or sxs Anemia 254673350 D64.89 Repeat and monitor CBC [id number] MD MARKUS Melchor [address] [address] 05/24/2017 10:26:07 05/26/2017 12:52:00 Bilateral deep vein thrombosis of lower extremities 814192664 I82.493 see HPIEliquis 5 mg bidmonitor with restart of medication on dose decreasing from 10 mg bid Alcohol wi thdrawal delirium 5503571 F10.231 see HPIthiamin e 100 mg qdmonitor for sx Tinea cruris 668012073 B 35.6 nystatin powdermoni tor to resolution Peripheral nerve disease 155310545 G64 start neurontin 100 mg tidtitrate for effect Urinary tr act infectious disease 67184593 N10 complete abmonitor for sx Chronic ob structive pulmonary disease 06150540 J41.1 at baselineco ntin[place] [id number] [address] [place] [address] 06/01/2017 10:32:02 06/10/2017 14:19:14 Bilateral deep vein thrombosis of lower extremities 086275218 I82.493 see HPIEliquis 5 mg bidF/u with PCP Alcohol wi thdrawal delirium 5455867 F10.231 see HPIthiamin e 100 mg qdd/c risperidal Home services in place with social work and psych consults Chiqui t motivated to remain sober Peripheral nerve disease 894271728 G64 Increase neurontin 200 mg tidf/u with PCP Urinary tr act infectious disease 93082486 N10 antibiotic course completeap pears resolved Chronic ob structive pulmonary disease 37949874 J41.1 at baselineco [place]tin[place] [id number] [address] 09/16/2017 12:30:46 09/28/2017 15:08:07 Chronic hepatitis 74691365 K70.10 PT/OT eval and treatfollo w LFTsencour age ETOH abstinence psych eval and treat for abstinence follow up with GI prn Thrombocyt openic disorder 377192284 D69.59 monitor labsPlts corrected currently from 70 to 203 Chronic ob structive pulmonary disease 13004526 J41.8 duoneb q 4 hrs prnmonitor respirator y status Peripheral nerve disease 039847454 G64 neurontin 300 mg q 8 hrswill change to 300 mg q 9 am and 2 pm and 600 mg q hsc/o foot pain increased at nightmonit or pain Bilateral deep vein thrombosis of lower extremities 507176081 I82.593 eliquis 2.5 mg bidIVC filter in placemonit or labs Alcohol wi thdrawal delirium 0788767 F10.231 folic acid 1 mg qdmultivit e qdthiamine qdmonitor for withdrawal ativan 0.5 mg q 4 hrs prn added Tobacco de pendence syndrome 90449718 F17.210 nicotine patch 21 mg/24 hr qdmonitor for withdrawal [id number] MD ASHLEY Melchor AT [address] [address] 09/18/2017 12:00:41 09/28/2017 15:44:02 Asthenia 31354535 R53.1 see HPIPT OT eval and treatmonit or lytes Chronic hepatitis 275153 07 K73.2 see HPIseconda ry to ETOHGI eval prn Alcohol dependence 50977 003 F10.288 extended discussion with patient concerning use of etoh and effect on health. when patient returned after SNF stay in 05/16 again began drinking 1 pint and 1 nip per daypatient states understand ing that continuing with prior drinking habits will result in Thrombocyt openic disorder 355044661 D69.59 repeat and monitor cbc Bilateral deep vein thrombosis of lower extremities 597362699 I82.493 see HPIEliquis 2.5 mg bidmonitor with restart of medication IVC filter in place Chronic ob structive pulmonary disease 15237260 J41.1 at baselinedu onebs in place [place] [id number] [address] [address] 09/20/2017 16:11:59 09/28/2017 15:48:42 Chronic hepatitis 73299746 K70.10 PT/OT eval and treatfollo w LFTs weekly and once he is outpt with pcpencoura ge ETOH abstinence follow up with GI prnwill get ortho BPs bid x 2 days Thrombocyt openic disorder 945862157 D69.59 monitor labs, improved Chronic ob structive pulmonary disease 98320198 J41.8 duoneb q 4 hrs prnmonitor respirator y statusenco urage pt to stop smoking Peripheral nerve disease 064654705 G64 neurontin 300 mg q 9 am and 2 pm and 600 mg q hsmonitor pain Bilateral deep vein thrombosis of lower extremities 583761976 I82.593 eliquis 2.5 mg bidIVC filter in placemonit or labs Alcohol wi thdrawal delirium 5302964 F10.231 folic acid 1 mg qdmultivit e qdthiamine qdativan 0.5 mg q 4 hrs prn Tobacco de pendence syndrome 96623726 F17.210 nicotine patch 21 mg/24 hr qd [id number] [address] AT [address] [address] 09/21/2017 15:09:20 09/28/2017 16:05:00 Alcohol dependence 43811211 F10.20 ok to dc home tomorrowst rongly encouraged abstinence /AA Chronic hepatitis 802826 07 K70.10 encourage ETOH abstinence follow up with GI prn and pcp Bilateral deep vein thrombosis of lower extremities 529630316 I82.593 eliquis 2.5 mg bidIVC filter in place Chronic ob structive pulmonary disease 14578333 J41.8 duoneb q 4 hrs prnencoura ge pt to stop smoking Left upper quadrant pain 423482658 R10.12 pt will f/u with PCP as out pt for further testing if needed [id number] [address] AT [address] [address] 10/02/2017 16:10:48 10/20/2017 12:10:03 Alcohol dependence 54041196 F10.20 see hpiPT OT for conditioni ng and mobilityst rongly encouraged abstinence Chronic ob structive pulmonary disease 24255722 J41.8 duoneb q 4 hrs prnencoura ge pt to stop smoking Anemia 431594750 D64.9 monitor cbc Peripheral nerve disease 942832972 G64 neurontin 300 mg q 9 am and 2 pm and 600 mg q hsmonitor pain Bilateral deep vein thrombosis of lower extremities 820406986 I82.593 resume eliquis 2.5 mg bidIVC filter in placedue to alcoholism he would not be a candidate for coumadin [id number] MD ROSMERY MelchorLEY AT [address] [address] 10/05/2017 15:13:51 10/20/2017 13:22:05 Asthenia 01963377 R53.1 see HPImultifa ctorial PT OT eval and treatmonit or lytes Alcohol dependence 76350 003 F10.288 Repeat extended discussion with patient concerning use of etoh and effect on health. patient states understand ing that continuing with prior drinking habits will result in Chronic hepatitis 307992 07 K73.2 see HPIseconda ry to ETOHGI eval prn Bilateral deep vein thrombosis of lower extremities 026926042 I82.493 see HPIEliquis 2.5 mg bidmonitor with restart of medication IVC filter in place Peripheral nerve disease 047051834 G64 increase gabapentin to 300 mg tidmonitor for effect [id number] [address] 10/07/2017 14:48:18 10/20/2017 14:00:14 Alcohol dependence 39591339 F10.288 encouraged to abstain from ETOHfollow up with PCP Chronic hepatitis 885393 07 K73.2 secondary to ETOHfollow up with PCP Bilateral deep vein thrombosis of lower extremities 970359529 I82.493 Eliquis 2.5 mg bidspoke with him at length about needing to contact PCP and pharmacy to get prior authorizat ion form for eliquisIVC filter in placefollo w up with PCP Peripheral nerve disease 800303760 G64 gabapentin to 300 mg tidtylenol as neededfoll ow up with PCP [id number] ELIZABETH JACKSON NP [address] [address] 10/15/2022 13:30:52 10/20/2022 10:25:28 Cellulitis of buttock 28482272 L03.317 Continue levaquin 500 mg daily x 3 daysAdd probiotic bid x 7 daysStill with inflammati on/indurat ion around woundTrend sx., VS, labsCBC, BMP q wednesday Alcohol dependence 27186 003 F10.288 s/p phenobarb protocol in hosp., no sx. of withdrawal Encourage abstinence Open wound of buttock 26 9850128 S31.829A With associated abscess and cellulitis Debrided 10/08Finish abx. as aboveCurre nt tx. moist kerlix and DCD daily and prnRefer to [facility] wound [place] for eval and tx. - pt. concerned about transporta tion - if too expensive can refer to Wound team hereMonito r wound, VS, labs for change Chronic ob structive pulmonary disease 15169395 J41.8 Combivent respimat 1 inh qid prnAlbuter ol MDI q4 hr prn - requesting to keep at bedside and self administer Continues to smoke Tobacco de pendence syndrome 15479256 F17.210 Continues to smoke hereEnc. 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 iamine 100 mg dailyfolic acid 1 mg dailyMVI dailywill monitor Open wound of buttock 26 2848236 S31.829A s/p I&Dantibio tics completedw ound care per surgery recommenda tionsfollo w up wound clinic Chronic ob structive pulmonary disease 76467841 J41.8 Combivent 18-103: 1 puff q6h prnalbuter ol HFA: 1 puff q4h prnwill monitor Asthenia 47021580 R53.1 PT/OTwill monitor and support s needed History of deep vein thrombosis 061863415 Z86.718 apixaban 5 mg bidwill monitor [id number] Violette Newell NP [address] [address] 10/22/2022 11:09:43 10/26/2022 10:58:25 Harmful pattern of use of alcohol 05332808 F10.10 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 for 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 tremor noted, anxious at baselineth iamine 100 mg dailyfolic acid 1 mg dailyMVI dailywill monitor Open wound of buttock 26 7295480 S31.829A s/p I&D on 10/08/22IV and po antibiotic s completed for cellulitis wound care per surgery recommenda tionsfollo w up wound clinic and dressings dailymonit or cbc and labs weekly Chronic ob structive pulmonary disease 54431898 J41.8 Combivent 18-103: 1 puff q6h prnalbuter ol HFA: 1 puff q4h prnwill monitor Asthenia 36767883 R53.1 PT/OTwill monitor and support s needed History of deep vein thrombosis 755711538 Z86.718 apixaban 5 mg bids/p ivc filterwill monitor Alcohol dependence 44247 003 F10.288 s/p phenobarb protocol in hosp., no sx. of withdrawal Encourage abstinence Tobacco de pendence syndrome 73085563 F17.210 Continues to smoke hererefuse s nicotine patchEnc. 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 of withdrawal Encourage abstinence Tobacco de pendence syndrome 84760372 F17.210 Continues to smoke here now on scheduled breaks with staffrefus es nicotine patchEnc. abstinence Inter[employer]igo 88295040 L30. 4 nystatin topically powder bid and prn x 14 daysmonito r Neuropathy 831664082 G62 .[address] De La Cruz this weekend09/30 she recommends 2% gel diclofenac topically 2 gram to bilateral feet bid, will agree todaymonit or for relief [id number] Violette Newell NP [address] [address] 10/27/2022 10:55:47 10/29/2022 09:47:39 Open wound of buttock 549521652 S31.829A s/p I&D on 10/08/22IV and po antibiotic s completed for cellulitis follow up wound clinic and dressings every 3rd day with stacy westfall to wound [employer] herecurren t order to left buttock wound irrigiate with wound wash, pack with hydrofera blue-moist en with ns, squeeze excess out. cover wtih zetuvit plus silicone bordered dressing q 3 dayscont protein liquid or supplement s to add in wound healingmon itor outpt with pcp and vna Intertrigo 66514865 L30. 4 nystatin topically powder bid and prn until healedvna to assess for resolution monitor outpt Neuropathy 294071989 G62 .[address] 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 tremor noted, anxious at baselineth iamine 100 mg dailyfolic acid 1 mg dailyMVI dailywill monitor outpt with pcp Chronic ob structive pulmonary disease 26536764 J41.8 Combivent 18-103: 1 puff q6h prnalbuter ol HFA: 1 puff q4h prnmonitor outpt with pcp Asthenia 34519855 R53.1 improved herewill monitor and support s needed outptmonit or outpt, pt/ ot to assess for safety, strengthen ing and balance, offloading pressure to wound, and safety conditions at home History of deep vein thrombosis 438012101 Z86.718 apixaban 5 mg bids/p ivc filterwill monitor outpt Alcohol dependence 04836 003 F10.288 s/p phenobarb protocol in hosp., no sx. of withdrawal Encourage abstinence outpt and services as needed Tobacco de pendence syndrome 86383302 F17.210 Continues to smoke here now on [...] Ruiz Member ID Guarantor Name 10/14/2022 1 [facility] - HEALTH NET PLAN (MEDICAID HMO) [id number] Edgardo Zavala [id number] Edgardo Zavala 10/26/2022 1 [facility] - DOS ON OR AFTER 2022 - MEDICARE ADVANTAGE [place] (MEDICARE REPLACEMENT/ADV ANTAGE - PPO) Edgardo Zavala [id number] Edgardo Zavala Notes Date Note Type Note Provider Name and Address Organization Details Recorded Time 10/15/2022 text/html Edgardo is seen today for initial intake. He is a 62 yo male admitted to [facility] 10/14/22 from [facility] for continued care and rehab after a brief hosp. related to a buttock wound and cellulitis. He presented to [facility] 10/07 with several days [...] covered with DCD. Needs follow up with [facility] wound clinic, ? wound vac. Upon d/c abx. changed to levaquin x 3 more days.DVT - remained on eliquisTobacco use - nicoderm patchCOPD - stable PMH: ETOH abuse, anemia, BLE DVTs IVC filter 2017 and bilat. thrombolysis, chronic hepatitis, COPD, PVD, thrombocytopenia, tobacco use, UTIMOLST: full code ELIZABETH JACKSON NP [address] [facility], [address], [place], [address], [facility] [employer] 10/15/2022 14:49:09 10/19/2022 text/html This 62 year old man was admitted to [facility] on 10/14/22for rehab and continued care. 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 He was having several [...] - signed 10/15/22 Cecilia Tucker MD [address] [facility], [address], [place], [address], [facility] [employer] 10/19/2022 14:28:20 10/22/2022 text/html Patient is seen for an acute rounding visit today. 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 He was having several [...] - signed 10/15/22 Violette Newell NP [address] [facility], [address], [place], [address], [facility] [employer] 10/22/2022 11:32:05 10/26/2022 text/html Patient is seen [...] 62 year old man was admitted to [facility] on 10/14/22for rehab and continued care after presenting to the ER at [facility] on 10/07/22. He was having several [...] - signed 10/15/22 Violette Newell NP [address] [facility], [address], [place], [id number], [facility] [employer] 10/26/2022 13:39:46 10/27/2022 text/html Patient is seen for a discharge summary visit today. Edgardo is a 62 year old man was admitted to [facility] on 10/14/22for rehab and continued care after presenting to the ER at [facility] on 10/07/22. He was having several [...] 3 days now according to the wound [employer]. His groin is improving with the nystatin [...] - signed 10/15/22 Violette Newell, [facility] [address], [address], [place], [id number], [facility] - [facility] 10/28/2022 10:11:07
== END 2025-02-27 15:08 | disposition home or self-care (01) ==
PROVIDERS: Emergency Provider Emergency Medicine; PCP Internal Medicine
DX: F10.20 Alcohol dependence, uncomplicated (principal); J44.9 Chronic obstructive pulmonary disease, unspecified; R05.9 Cough, unspecified; F17.210 Nicotine dependence, cigarettes, uncomplicated; Z86.718 Personal history of other venous thrombosis and embolism; Z79.01 Long term (current) use of anticoagulants; Z79.899 Other long term (current) drug therapy; Z03.818 Encounter for observation for suspected exposure to other biological agents ruled out
CPT/HCPCS: 36415; 71045; 80048; 80076; 80307; 82550; 82803; 83735; 85025; 86140; 87637; 93005; 94640; 99285

== ENCOUNTER → 2025-02-27 11:14 | Outpatient (BNV) | payer OTHER, SELFPAY | PROVIDERS: Emergency Provider Emergency Medicine; PCP Internal Medicine; Visit Provider Radiology Diagnostic Radiology | DX: R05.9 Cough, unspecified (principal) | CPT/HCPCS: 71045 ==

== ENCOUNTER → 2025-02-27 11:14 | Outpatient (BNV) | payer OTHER, SELFPAY | PROVIDERS: Emergency Provider Emergency Medicine; PCP Internal Medicine; Visit Provider Internal Medicine | DX: I45.2 Bifascicular block (principal) | CPT/HCPCS: 93010 ==

== ENCOUNTER → 2025-02-28 16:47 | Outpatient (BNV) | payer OTHER, SELFPAY | PROVIDERS: PCP Internal Medicine; Visit Provider Radiology Diagnostic Radiology | DX: R09.02 Hypoxemia (principal) | CPT/HCPCS: 70450; 71045; 72125 ==